=== PATIENT | female | born 1940 | race Caucasian/White ===

== ENCOUNTER → 2017-02-23 | Outpatient (CLI) | payer MEDICARE ==
[~2017-02-23] MED LIST: ALBU8.5H2 IH; ALPR0.2550 PO; ALPR0.5T72; AMIT25TA9 PO; AMIT75TA2; AMOX500C2 PO; ATEN50TA PO; FURO40TA4 PO; GABA300C PO; GBPN300C PO; HYDR-34 PO; LORA10TA2 PO; LORA10TA7 PO; MELO-195 PO; OMEP20CA6; PNT40TEC PO; POTA20PA3 PO; POTA20TA15 PO; PRD10T PO; ROPI0.25 PO; SIMV20TA3 PO; SIMV40TA4 PO; SLMFT1E INH; SLMFT1E PO; VERA240C2 PO
--- NOTE | 2017-02-23 13:07 | Diagnostic Imaging Report ---
INDICATION: SOA COMPARISON: 04/06/2011. FINDINGS: Frontal and lateral views of the chest demonstrate stable heart size and pulmonary vascularity. Right-sided dual-lead pacemaker is noted. There is aortic atherosclerosis. The lungs are clear. There are no signs of infiltrate, pleural effusions or pneumothoraces. The visualized osseous structures show no acute abnormalities. IMPRESSION: 1. No acute process. No signs of infiltrates, effusions or pneumothoraces. Dictated by: Dictated on workstation # [id number]
[2017-02-23 13:19] LABS: ALANINE AMINOTRANSFERASE 17 U/L (0-55); ALBUMIN 4.1 G/DL (3.2-4.5); ANION GAP 8 MMOL/L (5-14); ASPARTATE AMINO TRANSFERASE 20 U/L (5-34); BILIRUBIN,TOTAL 1.2 MG/DL (0.1-1.0); BLOOD UREA NITROGEN 25 MG/DL (7-18); BUN/CREATININE RATIO 29; CALCIUM 10.1 MG/DL (8.5-10.1); CARBON DIOXIDE 26 MMOL/L (21-32); CHLORIDE 107 MMOL/L (98-107); CREATININE SERUM 0.87 MG/DL (0.60-1.30); GFR ESTIMATED > 60; GLUCOSE 88 MG/DL (70-105); POTASSIUM 3.9 MMOL/L (3.6-5.0); SODIUM 141 MMOL/L (135-145); TOTAL PROTEIN 6.8 G/DL (6.4-8.2)
== END ==
LOC: RAD 12:31
PROVIDERS: ATTEND Internal Medicine Cardiovascular Disease
DX: R06.02 Shortness of breath (principal)
CPT/HCPCS: 36415; 71020; 80053; 83880

== ENCOUNTER 2017-05-09 20:37 | Outpatient (CLI) | payer MEDICARE | END 2017-05-10 06:48 | disposition home or self-care (01) | LOC: SLEEP 20:37 | PROVIDERS: ATTEND Nurse Practitioner Family | DX: G47.10 Hypersomnia, unspecified (principal); G47.34 Idiopathic sleep related nonobstructive alveolar hypoventilation; G47.50 Parasomnia, unspecified | CPT/HCPCS: 95810 ==

== ENCOUNTER 2017-06-19 21:10 | Outpatient (CLI) | payer MEDICARE | END 2017-06-20 06:50 | disposition home or self-care (01) | LOC: SLEEP 21:10 | PROVIDERS: ATTEND Nurse Practitioner Family | DX: G47.33 Obstructive sleep apnea (adult) (pediatric) (principal) | CPT/HCPCS: 95811 ==

== ENCOUNTER 2017-11-26 05:44 | Outpatient (CLI) | payer MEDICARE ==
[~2017-11-26] VITALS: Ht 162.6 cm; Wt 77.4 kg
[2017-11-26] MEDS ORDERED: MELO7.5T46 PO (08:43)
[2017-11-26] MEDS ORDERED: FLUT1BLS IH (08:43)
[2017-11-26] MEDS ORDERED: OMG1KC PO (08:43)
[2017-11-26] MEDS ORDERED: VERA240T98 PO (08:43)
[2017-11-26] MEDS ORDERED: CHOL10003 PO (08:43)
[2017-11-26] MEDS ORDERED: SIMV10TA3 PO (08:43)
[2017-11-26] MEDS ORDERED: GABA-488 PO (08:43)
[2017-11-26] MEDS ORDERED: TRAM50TA2 PO (08:43)
[2017-11-26] MEDS ORDERED: FURO40TA4 PO (08:43)
[2017-11-26] MEDS ORDERED: ROPI1TAB2 PO (08:43)
[2017-11-26] MEDS ORDERED: AMIT25TA9 PO (08:43)
[2017-11-26] MEDS ORDERED: ATEN50TA PO (08:43)
[2017-11-26] MEDS ORDERED: POTA20TA15 PO (08:44)
[2017-11-26] MEDS ORDERED: WARF3TAB7 PO (08:45)
[2017-11-26] MEDS ORDERED: MONT10TA24 PO (08:45)
== END 2017-11-26 08:54 ==
LOC: PREOP 05:44
PROVIDERS: ATTEND Surgery
DX: Z01.818 Encounter for other preprocedural examination (principal); K62.5 Hemorrhage of anus and rectum

== ENCOUNTER 2017-12-03 08:38 | Day surgery (SDC) | payer MEDICARE ==
[~2017-12-03] VITALS: Ht 162.6 cm; Wt 77.4 kg
[~2017-12-03 08:38] MED LIST changes: +CHOL10003 PO; +FLUT1BLS IH; +GABA-488 PO; +MELO7.5T46 PO; +MONT10TA24 PO; +OMG1KC PO; +ROPI1TAB2 PO; +SIMV10TA3 PO; +TRAM50TA2 PO; +VERA240T98 PO; +WARF3TAB7 PO
[2017-12-03] MEDS ORDERED: NS IV 500 ML 500 ML ONE (08:39)
[2017-12-03] MEDS ORDERED: NS IV 500 ML 500 ML IV PRN (08:50)
[2017-12-03 09:04] VITALS: BP 157/96
--- NOTE | 2017-12-03 09:38 | History & Physicial ---
History of Present Illness History of Present Illness Reason for visit/HPI to undergo colonoscopy regarding rectal bleeding. Date of Admission 12/03/17 Date Seen by Provider: Dec 03, 2017 Time Seen by Provider: 09:36 I consulted on this patient on 12/03/17 09:36 Attending Physician Logan Pulliam MD Admitting Physician Jason Boudreaux MD Consult Allergies and Home Medications Allergies Coded Allergies: doxycycline (Unverified Allergy, Mild, 11/26/17) Home Medications Amitriptyline HCl 25 Mg Tablet, 25 MG PO HS, (Reported) Atenolol 50 Mg Tablet, 50 MG PO BID, (Reported) Cholecalciferol (Vitamin D3) 1,000 Unit Tablet, 1,000 UNIT PO DAILY, (Reported) Fluticasone/Vilanterol 1 Each Blst.w.dev, 1 EACH IH DAILY, (Reported) Furosemide 40 Mg Tablet, 60 MG PO DAILY, (Reported) Gabapentin Unknown Strength Capsule, Unknown Dose PO TID, (Reported) Meloxicam 7.5 Mg Tablet, 7.5 MG PO DAILY, (Reported) Montelukast Sodium 10 Mg Tablet, 10 MG PO DAILY, (Reported) [place] 3 Polyunsat Fatty Acids 1,000 Mg Cap, 1,000 MG PO TID, (Reported) Potassium Chloride 20 Meq Tab.er.prt, 20 MEQ PO DAILY, (Reported) Ropinirole HCl 1 Mg Tablet, 1 MG PO HS, (Reported) Simvastatin 10 Mg Tablet, 10 MG PO DAILY, (Reported) Tramadol HCl 50 Mg Tablet, 50 MG PO BID PRN for PAIN-MILD TO MODERATE, (Reported ) Verapamil HCl 240 Mg Tablet.er, 240 MG PO DAILY, (Reported) Warfarin Sodium 3 Mg Tablet, 3 MG PO DAILY, (Reported) Patient Home Medication List Home Medication List Reviewed: Yes Past Xwlztoe-Kcfbrr-Jpkdor Hx Patient Social History Marrital Status: Employed/Student: retired Alcohol Use: Denies Use Recreational Drug Use: No Smoking Status: Never a Smoker Recent Foreign Travel: No Contact w/other who traveled: No Recent Hopitalizations: No Recent Infectious Disease Expo: No Immunizations Up To Date Date of Pneumonia Vaccine: Oct 30, 2016 Date of Influenza Vaccine: Jul 09, 2017 Seasonal Allergies Seasonal Allergies: Yes Surgeries Section, Tonsillectomy Respiratory No Currently Using CPAP: No Cardiovascular Yes Atrial Fibrillation, High Cholesterol, Hypertension Neurological No Reproductive System Hx Reproductive Disorders: No Sexually Transmitted Disease: No HIV/AIDS: No Genitourinary No Gastrointestinal Yes Chronic Constipation Musculoskeletal Yes Arthritis, Chronic Back Pain Endocrine History of Endocrine Disorders: No HEENT History of HEENT Disorders: No Loss of Vision: Bilateral Hearing Impairment: Denies Psychosocial History of Psychiatric Problem: Yes Behavioral Health Disorders: Anxiety Blood Transfusions Adverse Reaction to a Blood Tr: No (N/A) Constitutional: no symptoms reported EENTM: ear discharge Respiratory: no symptoms reported Cardiovascular: no symptoms reported Gastrointestinal: constipation Genitourinary: no symptoms reported Musculoskeletal: joint pain Skin: no symptoms reported Physical Exam Vital Signs Vital Signs - First Documented 12/03/17 09:04 Temp 96.5 Pulse 71 Resp 16 B/P (MAP) 157/96 (116) Pulse Ox 96 O2 Delivery Room Air Capillary Refill : General Appearance: No Apparent Distress Neck: Normal Inspection Respiratory: Lungs Clear Cardiovascular: Regular Rate, Rhythm Gastrointestinal: Non Tender, Soft Rectal: Deferred Extremity: Normal Inspection Neurologic/Psychiatric: Oriented x3 Skin: Warm/Dry Assessment/Plan Assessment and Plan lady reporting rectal bleeding. For colonoscopy Problems: Admission Diagnosis Admission Status: Other (Outpt Proc) LOGAN PULLIAM MD Dec 03, 2017 9:38 am
--- NOTE | 2017-12-03 09:38 | Conscious Sedation/ASA ---
Conscious Sedation Pre-Proced Time Reviewed: 09:38 ASA Class: 3 Airway Mallampati Classification: (galena appropriate class) I. II. III, IV Lungs Heart ASA score ASA 1: a normal healthy patient ASA 2: a patient with a mild systemic disease (mid diabetes, controlled hypertension, obesity ASA 3: a patient with a severe systemic disease that limits activity (angina , COPD, prior Myocardial infarction) ASA 4: a patient with an incapacitating disease that is a constant threat to life (CHF, renal failure) ASA 5: a moribund patient not expected to survive 24 hrs. (ruptured aneurysm) ASA 6: a declared brain patient whose organs are being harvested. For emergent operations, add the letter E after the classification Grade 1 Sedation Plan: Discussed options with patient/fam Note The patient is an appropriate candidate to undergo the planned procedure, sedation, and anesthesia. The patient immediately re-assessed prior to indication. LOGAN CHACON MD Dec 03, 2017 9:38 am
[2017-12-03] MEDS ORDERED: MIDAZOLAM 2 MG/2 ML (VERSED) VIAL ONE ×2 (09:56→09:57)
[2017-12-03] MEDS ORDERED: fentaNYL INJECTION 100 MCG/2 ML AMP ONE (09:57)
[2017-12-03] MEDS: fentaNYL INJECTION 100 MCG/2 ML AMP IVP PRN ×2 (10:05→10:20)
[2017-12-03] MEDS: MIDAZOLAM 2 MG/2 ML (VERSED) VIAL IVP PRN ×2 (10:07→10:14)
[2017-12-03 10:35] VITALS: BP 146/58
--- NOTE | 2017-12-03 10:37 | Endo Procedure Record ---
Endo Procedure Report Date of Procedure Last Colonoscopy: No Dec 03, 2017 Surgeon (s) LOGAN CHACON MD Post Procedure/Op Diagnosis Large external hemorrhoids Sigmoid diverticulosis Procedure Performed Colonoscopy to cecum Description of Procedure Anesthesia Type: Conscious Sedation Specimen(s) collected/removed none Description of the Procedure Indication for the procedure: This lady came in for colonoscopy to evaluate intermittent rectal bleeding. Informed consent was obtained after reviewing the procedure in detail. Description of the procedure: She was placed in left lateral decubitus position and her vital signs were monitored. Conscious sedation was achieved using Versed and fentanyl. Examination of the perianal area revealed external hemorrhoids. Digital examination was unremarkable. The colonoscope was then introduced in the rectum and advanced all the way to the cecum The scope was then withdrawn slowly and the mucosa examined in a systematic fashion. Findings: 1. External hemorrhoids, the potential source of her bleeding 2. Sigmoid diverticulosis. She tolerated the procedure well and was taken back to the nursing area in a stable condition. Impression: Rectal bleeding due to hemorrhoids. Would treat conservatively. Copies To: JUSTIN JOHNSON MD, XAVIER M MD Dec 03, 2017 10:37 am
--- NOTE | 2017-12-03 10:39 | Discharge Inst-Simple/Standard ---
Discharge Inst-Standard Discharge Medications New, Converted or Re-Newed RX: Other Patient Instructions/Follow Up Plan of Care/Instructions/FU: Follow-up with her primary. To avoid constipation. Activity as Tolerated: Yes Discharge Diet: No Restrictions LOGAN CHACON MD Dec 03, 2017 10:39 am
[2017-12-03 11:00] VITALS: BP 133/87
== END 2017-12-03 11:15 | disposition home or self-care (01) ==
LOC: ENDO 08:38
PROVIDERS: ATTEND Surgery
DX: K64.4 Residual hemorrhoidal skin tags (principal); K57.30 Diverticulosis of large intestine without perforation or abscess without bleeding; K62.5 Hemorrhage of anus and rectum; Z88.1 Allergy status to other antibiotic agents; Z79.01 Long term (current) use of anticoagulants; Z79.899 Other long term (current) drug therapy; I48.91 Unspecified atrial fibrillation; E78.00 Pure hypercholesterolemia, unspecified; I10 Essential (primary) hypertension; K59.09 Other constipation; F41.9 Anxiety disorder, unspecified

== ENCOUNTER 2019-10-22 12:44 | Outpatient (RCR) | payer MEDICARE ==
[~2019-10-22 12:44] MED LIST changes: -MONT10TA24 PO; +MONT10TA26 PO; +ROPI1TAB PO; -ROPI1TAB2 PO; +SIMV10TA26 PO; -SIMV10TA3 PO; -TRAM50TA2 PO; +TRM50T PO; +VERA240T14 PO; -VERA240T98 PO
[2019-11-04 14:30] VITALS: BP 101/60
[2019-11-04 15:20] VITALS: BP 120/60
[2019-11-06 14:35] VITALS: BP 150/60
[2019-11-06 15:30] VITALS: BP 123/80
[2019-11-11 14:30] VITALS: BP 138/60
[2019-11-11 15:29] VITALS: BP 120/60
[2019-11-13 14:30] VITALS: BP 130/60
[2019-11-13 15:30] VITALS: BP 117/60
[2019-11-18 14:20] VITALS: BP 120/80
[2019-11-18 15:35] VITALS: BP 118/63
== END 2020-01-20 | disposition home or self-care (01) ==
LOC: PULM 12:44
PROVIDERS: ATTEND Nurse Practitioner
DX: J44.9 Chronic obstructive pulmonary disease, unspecified (principal)
CPT/HCPCS: 99211

== ENCOUNTER 2020-05-18 17:39 | Emergency (ER) | payer MEDICARE ==
[~2020-05-18] VITALS: Ht 160 cm; Wt 86.3 kg
--- NOTE | 2020-05-18 19:03 | ED Lower Extremity ---
General Chief Complaint: Lower Extremity Stated Complaint: L FOOT PAIN Source: patient Exam Limitations: no limitations (CORKY MORALES STUDENT) History of Present Illness Date Seen by Provider: May 18, 2020 Time Seen by Provider: 18:45 Initial Comments Citlaly Salazar is a 80 year old female seen today due to swelling and pain on the dorsal aspect of her R foot. She reports the swelling and pain began three days ago, and has made it difficult to walk. She describes the pain as 5/10, and it does not radiate, and she has treated the pain with tramadol. Denies any injury to the foot, attributes her symptoms to needing her nails cut. She normally ambulates using a walker but has reduced how much she ambulates. Denies any loss of sensation or mobility of her toes, denies fevers, SOB, cough CP, palpitations. nausea and vomiting. Onset: last week Pain/Injury Location: left foot Method of Injury: unknown Modifying Factors: Improves With Pain Medication (tramadol) (CORKY MORALES STUDENT) Allergies and Home Medications Allergies Coded Allergies: doxycycline (Unverified Allergy, Mild, 11/26/17) Home Medications Amitriptyline HCl 25 Mg Tablet, 25 MG PO HS, (Reported) Atenolol 50 Mg Tablet, 50 MG PO BID, (Reported) Cephalexin 500 Mg Tablet, 500 MG PO QID Prescribed by: PEPITO JOHN on 05/18/201915 Cholecalciferol (Vitamin D3) 1,000 Unit Tablet, 1,000 UNIT PO DAILY, (Reported) Fluticasone/Vilanterol 1 Each Blst.w.dev, 1 EACH IH DAILY, (Reported) Furosemide 40 Mg Tablet, 60 MG PO DAILY, (Reported) Gabapentin Unknown Strength Capsule, Unknown Dose PO TID, (Reported) Meloxicam 7.5 Mg Tablet, 7.5 MG PO DAILY, (Reported) Montelukast Sodium 10 Mg Tablet, 10 MG PO DAILY, (Reported) [place] 3 Polyunsat Fatty Acids 1,000 Mg Cap, 1,000 MG PO TID, (Reported) Potassium Chloride 20 Meq Tab.er.prt, 20 MEQ PO DAILY, (Reported) Ropinirole HCl 1 Mg Tablet, 1 MG PO HS, (Reported) Simvastatin 10 Mg Tablet, 10 MG PO DAILY, (Reported) Tramadol HCl 50 Mg Tablet, 50 MG PO BID PRN for PAIN-MILD TO MODERATE, (Reported ) Tramadol HCl 50 Mg Tablet, 50 MG PO Q6H PRN for PAIN Prescribed by: PEPITO JOHN on 05/18/201915 Verapamil HCl 240 Mg Tablet.er, 240 MG PO DAILY, (Reported) Warfarin Sodium 3 Mg Tablet, 3 MG PO DAILY, (Reported) Patient Home Medication List Home Medication List Reviewed: Yes (PEPITO JOHN) Review of Systems Constitutional: No chills, No fever EENTM: No nose congestion, No throat pain Respiratory: No cough, No short of breath Cardiovascular: No chest pain, No palpitations Gastrointestinal: No nausea, No vomiting Skin: other (painful and erythematous dorsal R foot) (CORKY MORALES) Musculoskeletal: see HPI; No back pain; joint pain (PEPITO JOHN) All Other Systems Reviewed Negative Unless Noted: Yes (PEPITO JOHN) Past Cqwjatc-Zssayh-Bzmait Hx Patient Social History Recent Foreign Travel: No Contact w/Someone Who Travel: No Recent Hopitalizations: No (CORKY MORALES) Alcohol Use: Denies Use Recreational Drug Use: No (PEPITO JOHN) Immunizations Up To Date Date of Pneumonia Vaccine: Oct 30, 2016 Date of Influenza Vaccine: Jul 09, 2017 (CORKY MORALES) Seasonal Allergies Seasonal Allergies: Yes (CORKY MORALES) Past Medical History Section, Tonsillectomy Respiratory: No Sleep Apnea, COPD Currently Using CPAP: No Cardiac: Yes Atrial Fibrillation, High Cholesterol, Hypertension Neurological: No Reproductive Disorders: No Sexually Transmitted Disease: No HIV/AIDS: No Genitourinary: No Gastrointestinal: Yes Chronic Constipation Musculoskeletal: Yes Arthritis, Chronic Back Pain Endocrine: No HEENT: No Loss of Vision: Bilateral Hearing Impairment: Denies Psychosocial: Yes Anxiety Adverse Reaction/Blood Tranf: No (N/A) (CORKY MORALES) Physical Exam Vital Signs Vital Signs - First Documented 05/18/20 18:42 Temp 36.6 Pulse 79 Resp 18 B/P (MAP) 129/80 (96) Pulse Ox 95 O2 Delivery Room Air (PEPITO JOHN) Vital Signs Capillary Refill : (CORKY MORALES) Height, Weight, BMI Height: 5'4.00" Weight: 182lbs. 0.6oz. 77.357427mv; 29.3 BMI Method:Stated General Appearance: WD/WN, no apparent distress Cardiovascular: regular rate, rhythm, no JVD, diastolic murmur Respiratory: chest non-tender, lungs clear, normal breath sounds, no r espiratory distress, no accessory muscle use Knees: bilateral knee non-tender Ankles: bilateral ankle non-tender, bilateral ankle normal inspection Feet: left foot limited range of motion (reports her toe dorsiflexion may be reduced), left foot pain, left foot soft tissue tenderness, left foot swelling Neurologic/Psychiatric: alert, normal mood/affect, oriented x 3 (CORKY MORALES MED STUDENT) Feet: left foot other (shallow superficial ulceration in into the dermis on the distal tip of the first toe distal phalanx without exudate.) Neurologic/Tendon: normal sensation, normal motor functions, normal tendon functions, responds to pain (PEPITO JOHN) Progress/Results/Core Measures Results/Orders Vital Signs/I&O 05/18/20 18:42 Temp 36.6 Pulse 79 Resp 18 B/P (MAP) 129/80 (96) Pulse Ox 95 O2 Delivery Room Air (PEPITO JOHN) Progress Progress Note : Time: 19:11 Progress Note plan to start her on cephalexin 4 times a day and have her follow-up with Dr. Carmelo davis as primary care. She is not immunocompromised and has normal vital signs. I attest that I saw this patient alongside the medical student and agree with his documented history, physical exam and review of systems except as otherwise noted. (PEPITO JOHN) Departure Impression Primary Impression: Cellulitis of foot, left Disposition: 01 HOME, SELF-CARE Condition: Stable Departure-Patient Inst. Decision time for Depature: 19:09 (PEPITO JOHN) Referrals: ALLISON TORRES MD, CHAD C MD (PCP/Family) Primary Care Physician Patient Instructions: Cellulitis (Skin Infection), Adult (DC) Add. Discharge Instructions: keep the skin clean with regular soap and water and thoroughly dried. Dress the wound on the end of your toe. Tomorrow call Dr. Torres at wound care clinic and request follow-up appointment this week. Start taking Keflex one capsule 4 times a dayf or the next week and then follow up either with your primary care doctor or the wound care doctor for reevaluation this week. All discharge instructions reviewed with patient and/or family. Voiced understanding. Scripts Cephalexin (Cephalexin) 500 Mg Tablet 500 MG PO QID for 7 Days, #28 TAB 0 Refills Prov: PEPITO JOHN 05/18/20 Tramadol HCl (Tramadol HCl) 50 Mg Tablet 50 MG PO Q6H PRN for PAIN for 3 Days, #10 TAB 0 Refills Prov: PEPITO JOHN 05/18/20 Copy Copies To 1: ALLISON TORRES MD, EVAN MED STUDENT May 18, 2020 19:03 PEPITO JHON May 18, 2020 19:16
[2020-05-18] MEDS ORDERED: CEPH500T PO (19:16)
[2020-05-18] MEDS ORDERED: TRM50T PO (19:16)
[2020-05-18 19:19] VITALS: BP 128/79
== END 2020-05-18 19:23 | disposition home or self-care (01) ==
LOC: EDUNIT# 17:39 → ER 17:40
DX: L03.116 Cellulitis of left lower limb (principal); E78.00 Pure hypercholesterolemia, unspecified; I10 Essential (primary) hypertension; F41.9 Anxiety disorder, unspecified; Z88.1 Allergy status to other antibiotic agents; Z79.01 Long term (current) use of anticoagulants
CPT/HCPCS: 99283

== ENCOUNTER → 2020-06-03 | Outpatient (CLI) | payer MEDICARE ==
[~2020-06-03] MED LIST changes: +CEPH500T PO
== END ==
LOC: WOUNDCARE 12:28
PROVIDERS: ATTEND Surgery
DX: L97.522 Non-pressure chronic ulcer of other part of left foot with fat layer exposed (principal); G60.8 Other hereditary and idiopathic neuropathies; I70.245 Atherosclerosis of native arteries of left leg with ulceration of other part of foot; L03.116 Cellulitis of left lower limb
CPT/HCPCS: 99212

== ENCOUNTER → 2020-06-16 | Outpatient (CLI) | payer MEDICARE | LOC: WOUNDCARE 13:59 | PROVIDERS: ATTEND Surgery | DX: G60.8 Other hereditary and idiopathic neuropathies (principal); I70.245 Atherosclerosis of native arteries of left leg with ulceration of other part of foot; L03.116 Cellulitis of left lower limb | CPT/HCPCS: 99212 ==

== ENCOUNTER 2020-07-12 12:45 | Emergency (ER) | payer MEDICARE ==
[~2020-07-12] VITALS: Ht 167 cm; Wt 77.0 kg
--- NOTE | 2020-07-12 12:57 | ED General ---
General Stated Complaint: FALL Source of Information: Patient Exam Limitations: No Limitations History of Present Illness Date Seen by Provider: Jul 12, 2020 Time Seen by Provider: 12:55 Initial Comments To ER by EMS from home after reports of a fall. She was going to close the door when she tripped over a rug causing her to fall. She subsequently has developed thoracic and lumbar spine pain. She did hit her head but no loss of consciousness. She's on warfarin for history of "heart problems". Timing/Duration: 1-2 Days Severity: Moderate Associated Systoms: Denies Symptoms Allergies and Home Medications Allergies Coded Allergies: doxycycline (Unverified Allergy, Mild, 11/26/17) Home Medications Amitriptyline HCl 25 Mg Tablet, 25 MG PO HS, (Reported) Atenolol 50 Mg Tablet, 50 MG PO BID, (Reported) Cephalexin 500 Mg Tablet, 500 MG PO QID Prescribed by: PEPITO JOHN on 05/18/201915 Cholecalciferol (Vitamin D3) 1,000 Unit Tablet, 1,000 UNIT PO DAILY, (Reported) Fluticasone/Vilanterol 1 Each Blst.w.dev, 1 EACH IH DAILY, (Reported) Furosemide 40 Mg Tablet, 60 MG PO DAILY, (Reported) Gabapentin Unknown Strength Capsule, Unknown Dose PO TID, (Reported) Meloxicam 7.5 Mg Tablet, 7.5 MG PO DAILY, (Reported) Montelukast Sodium 10 Mg Tablet, 10 MG PO DAILY, (Reported) [place] 3 Polyunsat Fatty Acids 1,000 Mg Cap, 1,000 MG PO TID, (Reported) Potassium Chloride 20 Meq Tab.er.prt, 20 MEQ PO DAILY, (Reported) Ropinirole HCl 1 Mg Tablet, 1 MG PO HS, (Reported) Simvastatin 10 Mg Tablet, 10 MG PO DAILY, (Reported) Tramadol HCl 50 Mg Tablet, 50 MG PO BID PRN for PAIN-MILD TO MODERATE, (Reported) Tramadol HCl 50 Mg Tablet, 50 MG PO Q6H PRN for PAIN Prescribed by: PEPITO JOHN on 05/18/201915 Verapamil HCl 240 Mg Tablet.er, 240 MG PO DAILY, (Reported) Warfarin Sodium 3 Mg Tablet, 3 MG PO DAILY, (Reported) Patient Home Medication List Home Medication List Reviewed: Yes Review of Systems Review of Systems Constitutional: see HPI EENTM: see HPI Respiratory: no symptoms reported Cardiovascular: no symptoms reported Genitourinary: no symptoms reported Musculoskeletal: see HPI, back pain Skin: no symptoms reported Psychiatric/Neurological: No Symptoms Reported Past Mrnbfay-Okfggk-Fitlfb Hx Patient Social History Recent Hopitalizations: No Immunizations Up To Date Date of Pneumonia Vaccine: Oct 30, 2016 Date of Influenza Vaccine: Jul 09, 2017 Seasonal Allergies Seasonal Allergies: Yes Past Medical History Surgeries: Yes Section, Tonsillectomy Respiratory: No Sleep Apnea, COPD Currently Using CPAP: No Cardiac: Yes Atrial Fibrillation, High Cholesterol, Hypertension Neurological: No Reproductive Disorders: No Sexually Transmitted Disease: No HIV/AIDS: No Genitourinary: No Gastrointestinal: Yes Chronic Constipation Musculoskeletal: Yes Arthritis, Chronic Back Pain Endocrine: No HEENT: No Loss of Vision: Bilateral Hearing Impairment: Denies Psychosocial: Yes Anxiety Integumentary: No Blood Disorders: No Adverse Reaction/Blood Tranf: No (N/A) Physical Exam Vital Signs Vital Signs - First Documented 07/12/20 12:45 Temp 36.6 Pulse 91 Resp 20 B/P (MAP) 171/95 (120) Pulse Ox 96 Capillary Refill : Height, Weight, BMI Height: 5'4.00" Weight: 182lbs. 0.6oz. 77.312637xx; 33.00 BMI Method:Stated General Appearance: No Apparent Distress, WD/WN Eyes: Bilateral Eye Normal Inspection, Bilateral Eye PERRL, Bilateral Eye EOMI HEENT: PERRL/EOMI, TMs Normal Neck: Full Range of Motion, Normal Inspection, Non Tender, Supple Respiratory: No Accessory Muscle Use, No Respiratory Distress Back: Normal Inspection, Vertebral Tenderness (thoracolumbar spine) Extremity: Normal Capillary Refill, Normal Inspection Neurologic/Psychiatric: Alert, Oriented x3 Skin: Normal Color, Warm/Dry Progress/Results/Core Measures Suspected Sepsis SIRS Temperature: Pulse: Respiratory Rate: Blood Pressure / Mean: Results/Orders My Orders Orders - JUAN MAURER APRN Ct Head/Cervical Spine Wo (07/12/20 12:53) Ct Thoracic/Lumbar Spine Wo (07/12/20 12:53) Ibuprofen Tablet (Motrin Tablet) (07/12/20 13:00) Acetaminophen Tablet/Caplet (Tylenol T (07/12/20 13:00) Medications Given in ED Current Medications Medications Dose Ordered Sig/Jimi Route Start Time Stop Time Status Last Admin Dose Admin Acetaminophen 650 mg ONCE ONCE PO 07/12/20 13:00 07/12/20 13:01 DC 07/12/20 13:29 650 MG Ibuprofen 400 mg ONCE ONCE PO 07/12/20 13:00 07/12/20 13:01 DC 07/12/20 13:29 400 MG Vital Signs/I&O 07/12/20 12:45 Temp 36.6 Pulse 91 Resp 20 B/P (MAP) 171/95 (120) Pulse Ox 96 Capillary Refill : Diagnostic Imaging Diagonstic Imaging: Xray Comments NAME: LUCITA ORLANDO [facility] REC#: [id number] PT STATUS: REG ER : 1940 PHYSICIAN: JUAN MAURER APRN ADMIT DATE: 07/12/20/ER Draft Date of Exam:07/12/20 CT HEAD/CERVICAL SPINE WO PROCEDURE: CT head and CT cervical spine without contrast. TECHNIQUE: Multiple contiguous axial images were obtained through the brain and cervical spine without the use of intravenous contrast. Sagittal and coronal reformations through the cervical spine were then performed. Auto Exposure Controls were utilized during the CT exam to meet ALARA standards for radiation dose reduction. INDICATION: Fall. Head injury. COMPARISON: None. FINDINGS: CT HEAD: Moderate generalized cerebral and cerebellar parenchymal volume loss. Moderate leukoaraiosis. No intracranial hemorrhage, mass effect, hydrocephalus or extra-axial fluid collections. No CT evidence of a territorial infarction. Osseous structures are intact. Advanced mucosal thickening in the paranasal sinuses with osteitis. The mastoids are clear. CT CERVICAL SPINE: Grade 1 retrolisthesis of C3 on C4. Vertebral body heights preserved. No fractures. Congenital nonunion of the posterior arch of C1. Diffuse moderate to advanced degenerative endplate changes are greatest at C3-C4 and C6-C7. Advanced atherosclerotic calcifications. Lung apices are clear. There is likely moderate to severe spinal canal stenosis at C3-C4 due to osteophytic ridging and the retrolisthesis. Diffuse high-grade neural foraminal narrowing. IMPRESSION: 1. No acute intracranial or cervical spine CT findings. 2. Moderate to advanced spondylotic changes in the cervical spine are greatest at C3-C4 and C6-C7. There is likely high-grade spinal canal stenosis at C3-C4. This could be better evaluated with MRI. 3. Advanced chronic sinusitis. Dictated on workstation # [id number] Dict: 07/12/20 1400 Trans: 07/12/20 1409 [facility], [place] [id number] Interpreted by: GERMÁN HOWE MD Electronically signed by: NAME: LUCITA ORLANDO [facility] REC#: [id number] PT STATUS: REG ER : 1940 PHYSICIAN: JUAN MAURER APRN ADMIT DATE: 07/12/20/ER Draft Date of Exam:07/12/20 CT THORACIC/LUMBAR SPINE WO PROCEDURE: CT thoracic and lumbar spine without contrast. TECHNIQUE: Multiple contiguous axial images were obtained through the thoracic and lumbar spine without the use of intravenous contrast. Sagittal and coronal reformations were then performed. All CT scans use one or more of the following dose optimizing techniques: automated exposure control, MA and/or KvP adjustment based on a patient size and exam type, or iterative reconstruction. INDICATION: Fall. Mid upper back pain. COMPARISON: None. FINDINGS: Normal alignment. Vertebral body heights are preserved. No fractures are identified. Advanced diffuse degenerative endplate changes. Disc osteophyte complexes at T12 through L4 result in at least moderate spinal canal stenosis. There is also high-grade bilateral neural foraminal narrowing at L5-S1 and on the left at L2-L4. There is small right pleural effusion. Moderate atherosclerotic calcifications. Partially visualized cardiomegaly. Cardiac pacer. Colonic diverticulosis. Moderate degenerative changes in the sacroiliac joints. The visualized pelvis is intact. IMPRESSION: 1. No acute CT findings in the thoracic or lumbar spine. 2. Advanced spondylotic changes likely result in at least moderate spinal canal narrowing at T12 through L4. This could be better evaluated with MRI. 3. Small right pleural effusion is partially visualized. Dictated on workstation # [id number] Dict: 07/12/20 1405 Trans: 07/12/20 1413 [facility] [id number] Interpreted by: GERMÁN HOWE MD Electronically signed by: Departure Impression Primary Impression: Fall at home Qualified Codes: W19.XXXA - Unspecified fall, initial encounter; Y92.009 - Unspecified place in unspecified non-institutional (private) residence as the place of occurrence of the external cause Additional Impression: Back pain Qualified Codes: M54.5 - Low back pain Disposition: 01 HOME, SELF-CARE Condition: Stable Departure-Patient Inst. Decision time for Depature: 14:18 Referrals: JASON JOHNSON MD (PCP/Family) Primary Care Physician Patient Instructions: Upper Back Pain (DC) Add. Discharge Instructions: 1. Return to ER for any concerns, Tylenol and ibuprofen for pain control. Follow up with Dr. Jason Johnson later this week. Copy Copies To 1: JASON JOHNSON MD, PETER J APRN Jul 12, 2020 12:57
[2020-07-12] MEDS ORDERED: ACETAMINOPHEN 325 MG TABLET PO ONE (13:00)
[2020-07-12] MEDS ORDERED: IBUPROFEN TABLET 200 MG TAB PO ONE (13:00)
--- NOTE | 2020-07-12 14:09 | Diagnostic Imaging Report ---
PROCEDURE: CT head and CT cervical spine without contrast. TECHNIQUE: Multiple contiguous axial images were obtained through the brain and cervical spine without the use of intravenous contrast. Sagittal and coronal reformations through the cervical spine were then performed. Auto Exposure Controls were utilized during the CT exam to meet ALARA standards for radiation dose reduction. INDICATION: Fall. Head injury. COMPARISON: None. FINDINGS: CT HEAD: Moderate generalized cerebral and cerebellar parenchymal volume loss. Moderate leukoaraiosis. No intracranial hemorrhage, mass effect, hydrocephalus or extra-axial fluid collections. No CT evidence of a territorial infarction. Osseous structures are intact. Advanced mucosal thickening in the paranasal sinuses with osteitis. The mastoids are clear. CT CERVICAL SPINE: Grade 1 retrolisthesis of C3 on C4. Vertebral body heights preserved. No fractures. Congenital nonunion of the posterior arch of C1. Diffuse moderate to advanced degenerative endplate changes are greatest at C3-C4 and C6-C7. Advanced atherosclerotic calcifications. Lung apices are clear. There is likely moderate to severe spinal canal stenosis at C3-C4 due to osteophytic ridging and the retrolisthesis. Diffuse high-grade neural foraminal narrowing. IMPRESSION: 1. No acute intracranial or cervical spine CT findings. 2. Moderate to advanced spondylotic changes in the cervical spine are greatest at C3-C4 and C6-C7. There is likely high-grade spinal canal stenosis at C3-C4. This could be better evaluated with MRI. 3. Advanced chronic sinusitis. Dictated by: Dictated on workstation # [id number]
--- NOTE | 2020-07-12 14:13 | Diagnostic Imaging Report ---
PROCEDURE: CT thoracic and lumbar spine without contrast. TECHNIQUE: Multiple contiguous axial images were obtained through the thoracic and lumbar spine without the use of intravenous contrast. Sagittal and coronal reformations were then performed. All CT scans use one or more of the following dose optimizing techniques: automated exposure control, MA and/or KvP adjustment based on a patient size and exam type, or iterative reconstruction. INDICATION: Fall. Mid upper back pain. COMPARISON: None. FINDINGS: Normal alignment. Vertebral body heights are preserved. No fractures are identified. Advanced diffuse degenerative endplate changes. Disc osteophyte complexes at T12 through L4 result in at least moderate spinal canal stenosis. There is also high-grade bilateral neural foraminal narrowing at L5-S1 and on the left at L2-L4. There is small right pleural effusion. Moderate atherosclerotic calcifications. Partially visualized cardiomegaly. Cardiac pacer. Colonic diverticulosis. Moderate degenerative changes in the sacroiliac joints. The visualized pelvis is intact. IMPRESSION: 1. No acute CT findings in the thoracic or lumbar spine. 2. Advanced spondylotic changes likely result in at least moderate spinal canal narrowing at T12 through L4. This could be better evaluated with MRI. 3. Small right pleural effusion is partially visualized. Dictated by: Dictated on workstation # [id number]
[2020-07-12 14:38] VITALS: BP 171/95
== END 2020-07-12 14:39 | disposition home or self-care (01) ==
LOC: EDUNIT# 12:47 → ER 12:48
DX: M54.5 Low back pain (principal); E78.00 Pure hypercholesterolemia, unspecified; J44.9 Chronic obstructive pulmonary disease, unspecified; I10 Essential (primary) hypertension; F41.9 Anxiety disorder, unspecified; Z88.1 Allergy status to other antibiotic agents; Z79.01 Long term (current) use of anticoagulants
CPT/HCPCS: 70450; 72125; 72128; 72131

== ENCOUNTER 2020-09-26 10:36 | Inpatient (IN) | payer MEDICARE ==
[~2020-09-26] VITALS: Ht 167 cm; Wt 77.6 kg
[~2020-09-26 10:36] MED LIST changes: -MONT10TA26 PO; +MONT10TA97 PO
[2020-09-26] MEDS ORDERED: LACTATED RINGERS 1,000 ML IV ONE ×2 (11:30)
[2020-09-26 11:40] LABS: BASOPHILS % (AUTO) 1 % (0-10); EOSINOPHILS # (AUTO) 0.1 10^3/uL (0.0-0.3); EOSINOPHILS % (AUTO) 2 % (0-10); HEMATOCRIT 42 % (35-52); HEMOGLOBIN 13.8 g/dL (11.5-16.0); LYMPHOCYTES # (AUTO) 1.4 10^3/uL (1.0-4.0); LYMPHOCYTES % (AUTO) 25 % (12-44); MEAN CORPUSCULAR HEMOGLOBIN 29 pg (25-34); MEAN CORPUSCULAR HGB CONC 33 g/dL (32-36); MEAN CORPUSCULAR VOLUME 87 fL (80-99); MEAN PLATELET VOLUME 11.4 fL (9.0-12.2); MONOCYTES # (AUTO) 0.6 10^3/uL (0.0-1.0); MONOCYTES % (AUTO) 10 % (0-12); NEUTROPHILS # (AUTO) 3.6 10^3/uL (1.8-7.8); NEUTROPHILS % (AUTO) 63 % (42-75); PLATELET COUNT 394 10^3/uL (130-400); WHITE BLOOD COUNT 5.8 10^3/uL (4.3-11.0)
[2020-09-26 11:43] LABS: ALBUMIN 3.7 GM/DL (3.2-4.5); CHLORIDE 104 MMOL/L (98-107); POTASSIUM 3.1 MMOL/L (3.6-5.0); SODIUM 140 MMOL/L (135-145)
[2020-09-26 11:44] LABS: CALCIUM 9.1 MG/DL (8.5-10.1)
[2020-09-26 11:45] LABS: GLUCOSE 91 MG/DL (70-105); TOTAL PROTEIN 6.9 GM/DL (6.4-8.2)
[2020-09-26 11:46] LABS: CARBON DIOXIDE 23 MMOL/L (21-32)
[2020-09-26 11:47] LABS: BILIRUBIN,TOTAL 1.6 MG/DL (0.1-1.0)
[2020-09-26 11:49] LABS: ALKALINE PHOSPHATASE 73 U/L (40-136); CREATININE SERUM 0.79 MG/DL (0.60-1.30); GFR ESTIMATED > 60
[2020-09-26 11:50] LABS: BUN/CREATININE RATIO 14
[2020-09-26 11:52] LABS: ALANINE AMINOTRANSFERASE 26 U/L (0-55); MAGNESIUM 1.6 MG/DL (1.6-2.4)
[2020-09-26] MEDS ORDERED: KETOROLAC 30 MG/ML VIAL ONE (12:11)
[2020-09-26] MEDS ORDERED: KETOROLAC 30 MG/ML VIAL IVP ONE (12:15)
[2020-09-26 12:25] LABS: CLARITY,URINE CLEAR; COLOR,URINE YELLOW; GLUCOSE, URINE (UA) NEGATIVE (NEGATIVE); KETONES,URINE 1+ (NEGATIVE); LEUKOCYTE ESTERASE ,URINE NEGATIVE (NEGATIVE); NITRITE,URINE NEGATIVE (NEGATIVE); PH,URINE 5.5 (5-9); PROTEIN,URINE 1+ (NEGATIVE)
[2020-09-26 12:42] LABS: AMORPHOUS SEDIMENT,UR RARE AMOR URATES /LPF; BACTERIA,URINE TRACE /HPF; BILIRUBIN,URINE 2+ (NEGATIVE); RBC,URINE RARE /HPF; SQUAMOUS EPITHELIAL CELL,UR RARE /HPF; WBC,URINE RARE /HPF
--- NOTE | 2020-09-26 12:45 | ED GI ---
General Chief Complaint: General Problems/Pain Stated Complaint: DIARRHEA,NO APPETITE,WEAK,FEVER Nursing Triage Note: PT TO ED W/ C/O COUGH, CONGESTION, DIARRHEA, FEVER ONSET X1 WK. SON REPORTED SHE WAS TESTED FOR COVID "A WHILE AGO" BUT RECEIVED NO RESULTS. STATES HE DID HAVE COVID ET HAS FINISHED HIS QUARANTINE. PT DENIES ANY C/O PAIN. NO OTHER C/O VOICED Sepsis Screen: No Definite Risk Source of Information: Patient Exam Limitations: No Limitations History of Present Illness Date Seen by Provider: Sep 26, 2020 Time Seen by Provider: 11:15 Initial Comments Patient presents ER by private conveyance with her son and chief complaint that she has been sick for about a week with diarrhea. Earlier in the week she was tested for Covid and her son also has COVID-19. She never received the results of her Covid screening test. He is now out of the quarantine period. She has had a cough nonproductive as well as fever for the past week. Primary care by Justin Bernardo. She is very hard of hearing and a poor historian most of her history is per her son. She is not having any pain anywhere or nausea. On warfarin. Allergies and Home Medications Allergies Coded Allergies: doxycycline (Unverified Allergy, Mild, 11/26/17) Home Medications Amitriptyline HCl 25 Mg Tablet, 25 MG PO HS, (Reported) Atenolol 50 Mg Tablet, 50 MG PO BID, (Reported) Cephalexin 500 Mg Tablet, 500 MG PO QID Prescribed by: PEPITO JOHN on 05/18/201915 Cholecalciferol (Vitamin D3) 1,000 Unit Tablet, 1,000 UNIT PO DAILY, (Reported) Fluticasone/Vilanterol 1 Each Blst.w.dev, 1 EACH IH DAILY, (Reported) Furosemide 40 Mg Tablet, 60 MG PO DAILY, (Reported) Gabapentin Unknown Strength Capsule, Unknown Dose PO TID, (Reported) Meloxicam 7.5 Mg Tablet, 7.5 MG PO DAILY, (Reported) Montelukast Sodium 10 Mg Tablet, 10 MG PO DAILY, (Reported) [place] 3 Polyunsat Fatty Acids 1,000 Mg Cap, 1,000 MG PO TID, (Reported) Potassium Chloride 20 Meq Tab.er.prt, 20 MEQ PO DAILY, (Reported) Ropinirole HCl 1 Mg Tablet, 1 MG PO HS, (Reported) Simvastatin 10 Mg Tablet, 10 MG PO DAILY, (Reported) Tramadol HCl 50 Mg Tablet, 50 MG PO BID PRN for PAIN-MILD TO MODERATE, (Reported) Tramadol HCl 50 Mg Tablet, 50 MG PO Q6H PRN for PAIN Prescribed by: PEPITO JOHN on 05/18/201915 Verapamil HCl 240 Mg Tablet.er, 240 MG PO DAILY, (Reported) Warfarin Sodium 3 Mg Tablet, 3 MG PO DAILY, (Reported) Patient Home Medication List Home Medication List Reviewed: Yes Review of Systems Review of Systems Constitutional: No chills, No diaphoresis EENTM: No Blurred Vision, No Double Vision Respiratory: Denies Cough, Denies Shortness of Air Cardiovascular: Denies Chest Pain, Denies Lightheadedness Gastrointestinal: See HPI; Denies Abdominal Pain, Denies Constipated; Diarrhea; Denies Nausea Musculoskeletal: No back pain, No joint pain All Other Systems Reviewed Negative Unless Noted: Yes Past Qsdjoqq-Qnawau-Oqjogb Hx Patient Social History Alcohol Use: Denies Use Recreational Drug Use: No Smoking Status: Never a Smoker Recent Foreign Travel: No Contact w/Someone Who Travel: No Recent Infectious Disease Expo: No Recent Hopitalizations: No Physical Abuse: No Sexual Abuse: No Mistreated: No Fear: No Immunizations Up To Date Date of Pneumonia Vaccine: Oct 30, 2016 Date of Influenza Vaccine: Jul 09, 2017 Seasonal Allergies Seasonal Allergies: Yes Past Medical History Surgeries: Yes Section, Tonsillectomy Respiratory: No Sleep Apnea, COPD Currently Using CPAP: No Cardiac: Yes Atrial Fibrillation, High Cholesterol, Hypertension Neurological: No Reproductive Disorders: No Sexually Transmitted Disease: No HIV/AIDS: No Genitourinary: No Gastrointestinal: Yes Chronic Constipation Musculoskeletal: Yes Arthritis, Chronic Back Pain Endocrine: No HEENT: No Loss of Vision: Bilateral Hearing Impairment: Denies Psychosocial: Yes Anxiety Integumentary: No Blood Disorders: No Adverse Reaction/Blood Tranf: No (N/A) Physical Exam Vital Signs Vital Signs - First Documented 09/26/20 10:54 Temp 35.9 Pulse 62 Resp 18 B/P (MAP) 162/76 (104) Pulse Ox 98 O2 Delivery Room Air Capillary Refill : Less Than 3 Seconds Height/Weight/BMI Height: 5'4.00" Weight: 182lbs. 0.6oz. 77.556236sj; 27.00 BMI Method:Stated General Appearance: WD/WN, no apparent distress HEENT: PERRL/EOMI, pharynx normal Neck: full range of motion, normal inspection Respiratory: crackles (Faint bilateral bases) Cardiovascular: normal peripheral pulses, regular rate, rhythm Peripheral Pulses: 2+ Radial Pulses (R), 2+ Radial Pulses (L) Gastrointestinal: normal bowel sounds, non tender, soft Neurologic/Psychiatric: alert, oriented x 3, other (Anxious affect, hard of hearing) Skin: normal color, warm/dry Focused Exam Lactate Level 09/26/20 12:15: Lactic Acid Level 1.76 Lactic Acid Level Laboratory Tests Test 09/26/20 12:15 Lactic Acid Level 1.76 MMOL/L (0.50-2.00) Progress/Results/Core Measures Results/Orders Lab Results Laboratory Tests Test 09/26/20 11:05 09/26/20 11:10 09/26/20 12:10 09/26/20 12:15 Range/Units White Blood Count 5.8 4.3-11.0 10^3/uL Red Blood Count 4.76 3.80-5.11 10^6/uL Hemoglobin 13.8 11.5-16.0 g/dL Hematocrit 42 35-52 % Mean Corpuscular Volume 87 80-99 fL Mean Corpuscular Hemoglobin 29 25-34 pg Mean Corpuscular Hemoglobin Concent 33 32-36 g/dL Red Cell Distribution Width 14.1 10.0-14.5 % Platelet Count 394 130-400 10^3/uL Mean Platelet Volume 11.4 9.0-12.2 fL Immature Granulocyte % (Auto) 0 % Neutrophils (%) (Auto) 63 42-75 % Lymphocytes (%) (Auto) 25 12-44 % Monocytes (%) (Auto) 10 0-12 % Eosinophils (%) (Auto) 2 0-10 % Basophils (%) (Auto) 1 0-10 % Neutrophils # (Auto) 3.6 1.8-7.8 10^3/uL Lymphocytes # (Auto) 1.4 1.0-4.0 10^3/uL Monocytes # (Auto) 0.6 0.0-1.0 10^3/uL Eosinophils # (Auto) 0.1 0.0-0.3 10^3/uL Basophils # (Auto) 0.0 0.0-0.1 10^3/uL Immature Granulocyte # (Auto) 0.0 0.0-0.1 10^3/uL D-Dimer 0.35 0.00-0.49 UG/ML Sodium Level 140 135-145 MMOL/L Potassium Level 3.1 L 3.6-5.0 MMOL/L Chloride Level 104 98-107 MMOL/L Carbon Dioxide Level 23 21-32 MMOL/L Anion Gap 13 5-14 MMOL/L Blood Urea Nitrogen 11 7-18 MG/DL Creatinine 0.79 0.60-1.30 MG/DL Estimat Glomerular Filtration Rate > 60 BUN/Creatinine Ratio 14 Glucose Level 91 70-105 MG/DL Calcium Level 9.1 8.5-10.1 MG/DL Corrected Calcium 9.3 8.5-10.1 MG/DL Phosphorus Level 3.0 2.3-4.7 MG/DL Magnesium Level 1.6 1.6-2.4 MG/DL Total Bilirubin 1.6 H 0.1-1.0 MG/DL Aspartate Amino Transf (AST/SGOT) 30 5-34 U/L Alanine Aminotransferase (ALT/SGPT) 26 0-55 U/L Alkaline Phosphatase 73 40-136 U/L C-Reactive Protein High Sensitivity 0.27 0.00-0.50 MG/DL Total Protein 6.9 6.4-8.2 GM/DL Albumin 3.7 3.2-4.5 GM/DL Procalcitonin 0.03 <0.10 NG/ML Coronavirus 2019 (PRANEETH) Positive H Negative Urine Color YELLOW Urine Clarity CLEAR Urine pH 5.5 5-9 Urine Specific [place] 1.025 H 1.016-1.022 Urine Protein 1+ H NEGATIVE Urine Glucose (UA) NEGATIVE NEGATIVE Urine Ketones 1+ H NEGATIVE Urine Nitrite NEGATIVE NEGATIVE Urine Bilirubin 2+ H NEGATIVE Urine Urobilinogen 1.0 < = 1.0 MG/DL Urine Leukocyte Esterase NEGATIVE NEGATIVE Urine RBC (Auto) TRACE-I NEGATIVE Urine RBC RARE /HPF Urine WBC RARE /HPF Urine Squamous Epithelial Cells RARE /HPF Urine Crystals PRESENT H /LPF Urine Amorphous Sediment RARE VICTOR MANUEL URATES H /LPF Urine Bacteria TRACE /HPF Urine Casts NONE /LPF Urine Mucus MODERATE H /LPF Urine Culture Indicated NO Lactic Acid Level 1.76 0.50-2.00 MMOL/L My Orders Orders - PEPITO JOHN Covid 19 Inhouse Test (09/26/20 11:27) Coronavirus Sars-Cov-2 So 2018 (09/26/20 11:27) Influenza A And B Antigens (09/26/20 11:27) Cbc With Automated Diff (09/26/20 11:27) Comprehensive Metabolic Panel (09/26/20 11:27) Hs C Reactive Protein (09/26/20 11:27) Procalcitonin (Pct) (09/26/20 11:27) Fibrin Degradation Products (09/26/20 11:27) Ua Culture If Indicated (09/26/20 11:27) Magnesium (09/26/20 11:27) Phosphorus (09/26/20 11:27) Ed Iv/Invasive Line Start (09/26/20 11:27) Lactated Ringers (Lr 1000 Ml Iv Solution (09/26/20 11:30) Ed Iv/Invasive Line Start (09/26/20 11:27) Ed Iv/Invasive Line Start (09/26/20 11:27) Lactated Ringers (Lr 1000 Ml Iv Solution (09/26/20 11:30) Blood Culture (09/26/20 11:27) Lactic Acid Analyzer (09/26/20 11:27) Catheter(Urinary) Insert & Ass 03,15 (09/26/20 12:05) Ketorolac Injection (Toradol Injection) (09/26/20 12:15) Ketorolac Injection (Toradol Injection) (09/26/20 12:11) Medications Given in ED Current Medications Medications Dose Ordered Sig/Jimi Route Start Time Stop Time Status Last Admin Dose Admin Ketorolac Tromethamine 30 mg ONCE ONCE IVP 09/26/20 12:15 09/26/20 12:16 DC 09/26/20 12:18 30 MG Lactated Ringer's 1,000 ml @ 0 mls/hr Q0M ONCE IV 09/26/20 11:30 09/26/20 11:34 DC 09/26/20 12:02 0 MLS/HR Lactated Ringer's 1,000 ml @ 0 mls/hr Q0M ONCE IV 09/26/20 11:30 09/26/20 11:34 DC 09/26/20 12:02 0 MLS/HR Vital Signs/I&O 09/26/20 10:54 Temp 35.9 Pulse 62 Resp 18 B/P (MAP) 162/76 (104) Pulse Ox 98 O2 Delivery Room Air Blood Pressure Mean: 104 Progress Progress Note : Time: 12:47 Progress Note Toradol for her body aches. We will put her on Imodium and 2 L would be 30 mL/kg fluid bolus for her dehydration. Plan to hold onto her in the hospital for dehydration management. Diagnostic Imaging Diagonstic Imaging: Xray Plain Films/CT/US/NM/MRI: chest Reviewed: Reviewed by Me Departure Communication (Admissions) Time/Spoke to Admitting Phy: 12:15 Discussed the case with Dr. Williamson and she agrees to place the patient in the hospital on IV fluids. Impression Primary Impression: COVID-19 Additional Impressions: Dehydration Delirium due to another medical condition, acute, hypoactive Disposition: ADMITTED INPATIENT Condition: Stable Admissions Decision to Admit Reason: Admit from ER (General) Decision to Admit/Date: Sep 26, 2020 Time/Decision to Admit Time: 12:00 Departure-Patient Inst. Referrals: JUSTIN JOHNSON MD (PCP/Family) Primary Care Physician PEPITO JOHN Sep 26, 2020 12:45
--- NOTE | 2020-09-26 12:54 | NUR ---
THIS RN NOTIFIED SON OF PLANS TO ADMIT. UNDERSTANDING VOICED.
[2020-09-26 13:37] LABS: INR 2.4 (0.8-1.4); PROTHROMBIN TIME PATIENT 26.7 SEC (12.2-14.7)
--- NOTE | 2020-09-26 14:04 | Diagnostic Imaging Report ---
INDICATION: Shortness of air. COMPARISON: February 23, 2017. TECHNIQUE: Single radiograph of the chest dated September 26, 2020. FINDINGS: Pacer device is again noted with the battery pack overlying the right chest. The cardiac silhouette is enlarged, though stable. Mild central pulmonary vasculature congestion. Slightly increased interstitial opacities are noted within lungs, particularly peripherally. No large-volume pleural effusion. No pneumothorax. Scattered osseous degenerative changes without acute osseous abnormality. IMPRESSION: Cardiomegaly with mild central pulmonary vascular congestion and minimal interstitial edema without significant pleural effusion. Dictated by: Dictated on workstation # [id number]
--- NOTE | 2020-09-26 15:04 | NUR ---
LUCITA ORLANDO admitted to room 421-1, with an admitting diagnosis of COVID-19 AND DEHYDRATION, on 09/26/20 from THE EMERGENCY DEPARTMENT, accompanied by STAFF. LUCITA ORLANDO introduced to surroundings, call light, bed controls, phone, TV, temperature control, lights, meal times, smoking policy, visitor policy, side rail policy, bathrooms and showers. Patient Rights given to patient in the handbook. LUCITA ORLANDO verbalizes understanding that [facility] is not responsible for the loss or damage to any personal effects or valuables that are kept in the patient's possession during their hospitalization. The following Patient Care Plans were discussed with the PATIENT: Discharge Planning, FLUID VOLUME DEFICIT, and KNOWLEDGE DEFICIT. LUCITA ORLANDO verbalizes understanding of Interdisciplinary Patient Education.
[2020-09-26 15:06] VITALS: BP 144/70
[2020-09-26] MEDS ORDERED: IBUPROFEN 600 MG (MOTRIN) TAB PO PRN (15:30)
[2020-09-26] MEDS ORDERED: ONDANSETRON 4 MG/2 ML (SDV) Z0FRAN IV PRN (15:30)
[2020-09-26] MEDS ORDERED: LOPERAMIDE 2 MG (IMODIUM) TABLET PO PRN (15:30)
[2020-09-26 15:33] VITALS: BP 144/70
[2020-09-26] MEDS: LACTATED RINGERS 1,000 ML IV SCH ×2 (15:56→20:26)
[2020-09-26] MEDS ORDERED: AMIT25TA9 PO (16:10)
[2020-09-26] MEDS ORDERED: GABA300C PO (16:10)
[2020-09-26] MEDS ORDERED: WARF3TAB56 PO ×2 (16:10)
[2020-09-26] MEDS ORDERED: CITA10TA12 PO (16:10)
[2020-09-26] MEDS ORDERED: TRM50T PO (16:10)
[2020-09-26] MEDS ORDERED: DORZ10DR27 OU (16:10)
[2020-09-26] MEDS ORDERED: FLUT1BLS IH (16:14)
[2020-09-26] MEDS ORDERED: PRAV10TA PO (16:14)
[2020-09-26] MEDS ORDERED: FURO40TA4 PO (16:14)
[2020-09-26 16:56] VITALS: BP 124/68
--- NOTE | 2020-09-26 17:52 | NUR ---
DR. CIFUENTES INFORMED OF DVT RISK. INR IS 2.4. DR. CIFUENTES STATES THAT SHE WILL RECHECK INR IN THE AM AND GO FROM THERE.
[2020-09-26 20:02] VITALS: BP 142/64
[2020-09-26] MEDS: rOPINIRole 1 MG (REQUIP) TABLET PO SCH (20:24)
[2020-09-26] MEDS: ATENOLOL 50 MG (TENORMIN) TAB PO SCH (20:26)
[2020-09-26 23:55] VITALS: BP 143/75
--- NOTE | 2020-09-27 00:47 | NUR ---
PT ATTEMPTING TO PULL AT IV. PT CONFUSED AND TRYING TO GET OUT BED TO GO TO THE BATHROOM. PT EDUCATED ON CATHETER USE AND RISK FOR FALLS. DR. CIFUENTES NOTIFIED. NEW ORDERS RECEIVED.
[2020-09-27] MEDS: LORazepam INJ 2 MG/ML (ATIVAN) VIAL IVP PRN ×4 (01:09→23:00)
[2020-09-27 04:00] VITALS: BP 142/76
[2020-09-27] MEDS: LACTATED RINGERS 1,000 ML IV SCH ×3 (04:07→17:19)
[2020-09-27] MEDS ORDERED: HALOPERIDOL 5 MG/ML (HALDOL) VIAL ONE (05:43)
[2020-09-27] MEDS ORDERED: HALOPERIDOL 5 MG/ML (HALDOL) VIAL IM ONE (05:45)
--- NOTE | 2020-09-27 05:46 | NUR ---
pt continuing to attempt to climb out of bed. pt educated on risk for falls. notified. new orders received.
[2020-09-27 06:14] LABS: BASOPHILS % (AUTO) 0 % (0-10); EOSINOPHILS # (AUTO) 0.2 10^3/uL (0.0-0.3); EOSINOPHILS % (AUTO) 3 % (0-10); HEMATOCRIT 38 % (35-52); HEMOGLOBIN 12.3 g/dL (11.5-16.0); LYMPHOCYTES # (AUTO) 1.9 10^3/uL (1.0-4.0); LYMPHOCYTES % (AUTO) 32 % (12-44); MEAN CORPUSCULAR HEMOGLOBIN 29 pg (25-34); MEAN CORPUSCULAR HGB CONC 33 g/dL (32-36); MEAN CORPUSCULAR VOLUME 88 fL (80-99); MONOCYTES # (AUTO) 0.6 10^3/uL (0.0-1.0); MONOCYTES % (AUTO) 9 % (0-12); NEUTROPHILS # (AUTO) 3.3 10^3/uL (1.8-7.8); NEUTROPHILS % (AUTO) 55 % (42-75); PLATELET COUNT 349 10^3/uL (130-400)
[2020-09-27 06:25] LABS: ALBUMIN 3.2 GM/DL (3.2-4.5); CHLORIDE 107 MMOL/L (98-107); POTASSIUM 3.2 MMOL/L (3.6-5.0); SODIUM 139 MMOL/L (135-145)
[2020-09-27 06:27] LABS: CALCIUM 8.6 MG/DL (8.5-10.1)
[2020-09-27 06:28] LABS: GLUCOSE 92 MG/DL (70-105); TOTAL PROTEIN 5.9 GM/DL (6.4-8.2)
[2020-09-27 06:29] LABS: CARBON DIOXIDE 22 MMOL/L (21-32)
[2020-09-27 06:30] LABS: BILIRUBIN,TOTAL 1.6 MG/DL (0.1-1.0)
[2020-09-27 06:31] LABS: ALKALINE PHOSPHATASE 64 U/L (40-136); CREATININE SERUM 0.66 MG/DL (0.60-1.30); GFR ESTIMATED > 60
[2020-09-27 06:31] LABS: INR 2.1 (0.8-1.4); PROTHROMBIN TIME PATIENT 23.9 SEC (12.2-14.7)
[2020-09-27 06:33] LABS: BUN/CREATININE RATIO 15
[2020-09-27 06:34] LABS: ALANINE AMINOTRANSFERASE 22 U/L (0-55)
[2020-09-27 08:00] VITALS: BP 176/79
[2020-09-27] MEDS: MELOXICAM 7.5 MG (MOBIC) TABLET PO SCH (09:21)
[2020-09-27] MEDS: MONTELUKAST 10 MG (SINGULAIR) TAB PO SCH (09:21)
[2020-09-27] MEDS: VERAPAMIL SR 240 MG (CALAN SR) TAB PO SCH (09:22)
[2020-09-27] MEDS: ATENOLOL 50 MG (TENORMIN) TAB PO SCH ×2 (09:22→20:42)
[2020-09-27 15:25] LABS: ABG BASE EXCESS 0.8 MMOL/L (-2.5-2.5); ABG OXYGEN SATURATION 98 % (94-100); ABG PCO2 38 MMHG (35-45); ABG PH 7.43 (7.37-7.43); ABG PO2 109 MMHG (79-93)
[2020-09-27 15:31] LABS: ALLENS TEST YES-POS; INSPIRED O2 3L; PATIENT TEMP 36.5; VENTILATOR NO
[2020-09-27 16:00] VITALS: BP 136/66
--- NOTE | 2020-09-27 16:21 | History & Physical-Hospitalist ---
History of Present Illness HPI/Chief Complaint Citlaly Salazar is a 80 year old female who presented with diarrhea. She has been having fevers and cough for about a week. She is unable to provide history due to her current clinical condition. She has been delirious and has a sitter at her bedside. She recently received a dose of Ativan and is unable to provide any history. Per nursing, the son reported that she has had some memory issues but takes care of herself for the most part at home. Source: RN/MD Exam Limitations: clinical condition Date Seen 09/27/20 Time Seen by a Provider: 10:55 Attending Physician Marco A Cárdenas MD PCP Jason Boudreaux MD Referring Physician Date of Admission Sep 26, 2020 at 12:50 Home Medications & Allergies Home Medications Reviewed patient Home Medication Reconciliation performed by pharmacy medication reconciliations ophthalmology technician and/or nursing. Patients Allergies have been reviewed. Allergies Allergies Coded Allergies doxycycline (Unverified Allergy, Mild, 11/26/17) Past Uzmeyvo-Bifozw-Jdotvi Hx Past Med/Social Hx: Reviewed Nursing Past Med/Soc Hx Patient Social History Alcohol Use: Denies Use Recreational Drug Use: No Smoking Status: Never a Smoker Recent Foreign Travel: No Contact w/other who traveled: No Recent Hopitalizations: No Recent Infectious Disease Expo: No Immunizations Up To Date Date of Pneumonia Vaccine: Oct 30, 2016 Date of Influenza Vaccine: Jun 24, 2020 Seasonal Allergies Seasonal Allergies: Yes Past Medical History Surgeries: Section, Tonsillectomy Currently Using CPAP: No Cardiac: Atrial Fibrillation, High Cholesterol, Hypertension Reproductive: No Sexually Transmitted Disease: No HIV/AIDS: No Gastrointestinal: Chronic Constipation Musculoskeletal: Arthritis, Chronic Back Pain HEENT: Glaucoma Loss of Vision: Bilateral Hearing Impairment: Denies Psychosocial: Anxiety History of Blood Disorders: No Adverse Reaction to Blood Jaime: No (N/A) Review of Systems Constitutional: see HPI Physical Exam Physical Exam Vital Signs Vital Signs - First Documented 09/26/20 09/27/20 10:54 16:00 Temp 35.9 Pulse 62 Resp 18 B/P (MAP) 162/76 (104) Pulse Ox 98 O2 Delivery Room Air O2 Flow Rate 3.00 Capillary Refill : Less Than 3 Seconds Height, Weight, BMI Height: 5'4.00" Weight: 182lbs. 0.6oz. 77.383498xf; 27.60 BMI Method:Stated General Appearance: No Apparent Distress, WD/WN Respiratory: Lungs Clear, Normal Breath Sounds, No Respiratory Distress Cardiovascular: Regular Rate, Rhythm, No Edema, No Murmur Gastrointestinal: Normal Bowel Sounds, Non Tender, Soft Extremity: Normal Inspection, Non Tender, No Pedal Edema Neurologic/Psychiatric: Other (lethargic, uncooperative) Skin: Normal Color, Warm/Dry Results Results/Procedures Labs Laboratory Tests 09/26/20 11:05 09/27/20 05:45 09/27/20 05:52 Patient resulted labs reviewed. Imaging: Reviewed Imaging Report Assessment/Plan Admission Diagnosis COVID-19 Admission Status: Observation Assessment and Plan COVID-19 Diarrhea due to COVID-19 Delirium COVID PRANEETH positive No oxygen requirement, not started on COVID therapies Imodium for diarrhea, improved Ativan and Haldol as needed for agitation Reorient as needed Sitter at bedside DVT Prophylaxis: Lovenox Diagnosis/Problems Diagnosis/Problems (1) COVID-19 Status: Acute (2) Diarrhea due to COVID-19 Status: Acute (3) Delirium Status: Acute Clinical Quality Measures DVT/VTE Risk/Contraindication: Risk Factor Score Per Nursin RFS Level Per Nursing on Admit: 4+=Very High MARCO A CÁRDENAS MD Sep 27, 2020 16:21
--- NOTE | 2020-09-27 17:19 | NUR ---
"RD ASSESSMENT PMHx: COPD; afib; hypercholesterolemia; HTN; chronic constipation; PT INTERACTION: Received dietary consult for MST score. Note pt is currently in COVID isolation, per chart review. Note all diet information for nutrition consult is per Marleen HEWITT, or per chart review. Marleen states current appetite appears poor. Note avg PO intake <25% meals, per chart review. Marleen states no issues with n/v/c/d that she is aware of. Note no BM has been recorded, and pt not currently on bowel regimen per chart review. Note recent 20# wt loss x4mon, per chart review. This is significant wt loss at 10.5%. Note unable to complete visual assessment d/t isolation precautions. Given PO intake and wt hx, pt meets criteria for malnutrition per ASPEN guidelines. Est. kcal needs: [id number] kcal | 20-25 kcal/kg Est. Pro needs: 62-77 g Pro | 0.8-1.0 g Pro/kg PES STATEMENT: Inadequate oral intake (NI-2.1) related to loss of appetite, as evidenced by chart review, and avg PO intake <25% meals. INTERVENTION: Continue with current diet order of 2000mg Na diet. Continue with current supplementation order of Ensure Enlive (vary) with meals TID, for increased kcal intake. Provides 350 kcal and 20 g Pro per serving. Will continue to follow and reassess as pt needs, intake, and status change. Jonathan LOPEZ MS RD LD [phone] cell"
[2020-09-27] MEDS: POTASSIUM CL 10MEQ/50ML IVPB 50 ML IV SCH ×4 (17:20→21:49)
[2020-09-27] MEDS: ENOXAPARIN 40 MG/0.4 ML (LOVENOX) SYR SC SCH (17:20)
[2020-09-27 19:08] VITALS: BP 136/77
[2020-09-27] MEDS: rOPINIRole 1 MG (REQUIP) TABLET PO SCH (20:42)
[2020-09-27] MEDS: ACETAMINOPHEN 325 MG TABLET PO PRN (23:46)
[2020-09-27 23:48] VITALS: BP 166/81
--- NOTE | 2020-09-28 00:04 | NUR ---
pt awake attempting to climb out of bed, appears to be short of breath, pt continues to say "help me" but is confused and doesn't give more information. Pt respiratory rate at 36, O2 94% on 1L, IV ativan given per EMAR but did not help after 1 hour, Dr. Chatman notified of pt shortness of breath, increased RR, and pt's agitation, that pt got 2mg of haldol earlier in the day, as well as pt's extended med history that shows pt had lasix refilled a month ago. received new orders for haldol 2mg IM, Lasix 40 mg IV once, and geodan 10mg IM Q4 prn.
[2020-09-28] MEDS ORDERED: WATER (STERILE) FOR INJECTION 10 ML ONE (00:12)
[2020-09-28] MEDS ORDERED: FUROSEMIDE 40 MG/4 ML INJ (LASIX) ONE (00:12)
[2020-09-28] MEDS ORDERED: ZIPRASIDONE 20 MG INJ (GEODON) VIAL IM ONE (00:12)
[2020-09-28] MEDS ORDERED: FUROSEMIDE 40 MG/4 ML INJ (LASIX) IVP ONE (00:15)
[2020-09-28] MEDS ORDERED: ZIPRASIDONE 20 MG INJ (GEODON) VIAL IM PRN ×2 (00:15→07:45)
[2020-09-28] MEDS ORDERED: HALOPERIDOL 5 MG/ML (HALDOL) VIAL IM ONE (00:15)
[2020-09-28 00:20] VITALS: BP 166/81
[2020-09-28] MEDS: LACTATED RINGERS 1,000 ML IV SCH ×4 (00:28→20:26)
[2020-09-28] MEDS ORDERED: RT-ALBUTEROL INHALER HFA (VENTOLIN HFA) 18 GM IH PRN (00:45)
[2020-09-28] MEDS: LORazepam INJ 2 MG/ML (ATIVAN) VIAL IVP PRN ×3 (03:30→21:17)
[2020-09-28] MEDS ORDERED: HALOPERIDOL 5 MG/ML (HALDOL) VIAL ONE (04:10)
[2020-09-28 04:22] VITALS: BP 165/79
[2020-09-28] MEDS: RT-ALBUTEROL INHALER HFA (VENTOLIN HFA) 18 GM IH SCH ×2 (06:40→21:19)
[2020-09-28 07:23] LABS: BUN/CREATININE RATIO 15; CALCIUM 8.5 MG/DL (8.5-10.1); CARBON DIOXIDE 27 MMOL/L (21-32); CHLORIDE 109 MMOL/L (98-107); CREATININE SERUM 0.67 MG/DL (0.60-1.30); GFR ESTIMATED > 60; GLUCOSE 84 MG/DL (70-105); MAGNESIUM 1.6 MG/DL (1.6-2.4); POTASSIUM 3.1 MMOL/L (3.6-5.0); SODIUM 144 MMOL/L (135-145)
[2020-09-28 07:37] VITALS: BP 162/84
[2020-09-28] MEDS ORDERED: MAGNESIUM 1 GM/100 ML IVPB 100 ML IV SCH (07:45)
[2020-09-28] MEDS ORDERED: KCL 20 MEQ TAB (K-DUR) PO NR (08:00)
[2020-09-28] MEDS: MELOXICAM 7.5 MG (MOBIC) TABLET PO SCH (08:42)
[2020-09-28] MEDS: VERAPAMIL SR 240 MG (CALAN SR) TAB PO SCH (08:42)
[2020-09-28] MEDS: MONTELUKAST 10 MG (SINGULAIR) TAB PO SCH (08:42)
[2020-09-28] MEDS: ATENOLOL 50 MG (TENORMIN) TAB PO SCH ×2 (08:42→20:27)
[2020-09-28] MEDS ORDERED: POTA-51 PO (09:10)
[2020-09-28] MEDS ORDERED: LATA2.5D19 OU (09:10)
--- NOTE | 2020-09-28 09:14 | NUR ---
UNABLE TO SPEAK WITH THE PT, THEREFORE I CALLED HER SON (DAVID), GOT A MED LIST FROM DR. JOHNSON, WENT THRU THE EXT MED HISTORY AND CALLED [facility] TO COMPLETE THE MED REC PT IS NOT ABLE TO TELL ME ABOUT HER MEDICATIONS, WHEN I SPOKE WITH HER SON HE LET ME KNOW HER HOME MEDS ARE WITH HER BUT HE DID NOT HAVE A MED LIST AND WASNT SURE HOW OR WHEN SHE IS TAKING HER MEDICATIONS. LANCE HEWITT PUT HER HOME MEDS IN A BUCKET AND PLACE IT ON THE DIRTY CART SO I COULD GO THROUGH THEM. THERE WAS A SMALL/MEDIUM SIZED BAG FULL OF MEDICATIONS- HOWEVER WHEN I STARTED LOOKING THRU THEM THERE WERE MULTIPLE BOTTLES OF THE SAME MEDICATIONS, WITH CARLOS DATED FROM THE PAST FEW MONTHS AND THEY ALL HAD SOME TABS IN THEM. DUE TO THE INFORMATION LISTED ABOVE AND THE FACT THAT THE PT IS NOT ABLE TO ANSWER QUESTIONS I HAVE COMPLETED THE MED REC USING THE MED LIST FROM [facility] AND THE EXT MED HISTORY ON 07-02-2020 RHONDA FILLED THE FOLLOWING: MONTELUKAST 10MG #90/90DS PRAVASTATIN 10MG #90/90DS
[2020-09-28 12:01] VITALS: BP 148/67
--- NOTE | 2020-09-28 15:05 | Progress Note - Hospitalist ---
Subjective HPI/CC On Admission Date Seen by Provider: Sep 28, 2020 Time Seen by Provider: 10:25 Citlaly Salazar is a 80 year old female who presented with diarrhea. She has been having fevers and cough for about a week. She is unable to provide history due to her current clinical condition. She has been delirious and has a sitter at her bedside. She recently received a dose of Ativan and is unable to provide any history. Per nursing, the son reported that she has had some memory issues but takes care of herself for the most part at home. Subjective/Events-last exam She is more awake today. She is able to tell me her name, where she is at, and the year. She is sleepy and not able to provide much information. She denies pain. Focused Exam Lactate Level 09/26/20 12:15: Lactic Acid Level 1.76 Objective Exam Vital Signs Vital Signs Date Time Temp Pulse Resp B/P (MAP) Pulse Ox O2 Delivery O2 Flow Rate FiO2 09/28/20 12:01 36.6 63 28 148/67 (94) 95 Nasal Cannula 1.00 09/28/20 06:40 90 Capillary Refill : Less Than 3 Seconds General Appearance: No Apparent Distress, WD/WN Respiratory: Lungs Clear, Normal Breath Sounds, No Respiratory Distress Cardiovascular: Regular Rate, Rhythm, No Edema, No Murmur Gastrointestinal: Normal Bowel Sounds, Non Tender, Soft Extremity: Normal Inspection, Non Tender, No Pedal Edema Neurologic/Psychiatric: Oriented x3, Motor Weakness, Other (lethargic) Skin: Normal Color, Warm/Dry Results/Procedures Lab Laboratory Tests 09/28/20 06:51 Patient resulted labs reviewed. Imaging: Reviewed Imaging Report Assessment/Plan Assessment and Plan Assess & Plan/Chief Complaint Acute respiratory failure due to COVID-19 COVID PRANEETH positive Requiring supplemental oxygen today Begin Decadron Outside of window for Remdesivir Dementia Delirium Ativan and Haldol as needed for agitation Reorient as needed Sitter at bedside Hypokalemia Hypomagnesemia Monitor and replace as needed DVT Prophylaxis: Lovenox Diarrhea due to COVID-19, resolved Diagnosis/Problems Diagnosis/Problems (1) Acute respiratory failure due to COVID-19 Status: Acute (2) COVID-19 Status: Acute (3) Diarrhea due to COVID-19 Status: Resolved Resolution Date/Time: 09/28/20 @ 15:04 (4) Delirium Status: Acute Clinical Quality Measures DVT/VTE Risk/Contraindication: Risk Factor Score Per Nursin RFS Level Per Nursing on Admit: 4+=Very High MARCO A CÁRDENAS MD Sep 28, 2020 15:05
[2020-09-28 15:26] VITALS: BP 156/85
[2020-09-28] MEDS: ENOXAPARIN 40 MG/0.4 ML (LOVENOX) SYR SC SCH (17:28)
[2020-09-28] MEDS ORDERED: warFARin 1 MG (COUMADIN) TAB PO SCH (18:00)
[2020-09-28] MEDS ORDERED: warFARin 2.5 MG (COUMADIN) TAB PO SCH (18:00)
[2020-09-28 20:27] VITALS: BP 164/82
[2020-09-28] MEDS: rOPINIRole 1 MG (REQUIP) TABLET PO SCH (20:27)
[2020-09-28] MEDS: ACETAMINOPHEN 325 MG TABLET PO PRN (21:42)
--- NOTE | 2020-09-28 21:45 | NUR ---
PT URINE IS RED WINE COLORED, DR LOMBARDO NOTIFIED OF THE COLOR OS URINE AND THAT PT HAS LOVENOX AND COUMADIN ORDERED, DR ORDERED TO HOLD THOSE FOR NOW
[2020-09-29] VITALS: BP 136/78
[2020-09-29] MEDS: ACETAMINOPHEN 325 MG TABLET PO PRN ×2 (03:09→21:51)
[2020-09-29] MEDS: LORazepam INJ 2 MG/ML (ATIVAN) VIAL IVP PRN ×2 (03:12→21:50)
[2020-09-29] MEDS: HALOPERIDOL 5 MG/ML (HALDOL) VIAL IM PRN ×2 (04:02→20:13)
[2020-09-29] MEDS: RT-ALBUTEROL INHALER HFA (VENTOLIN HFA) 18 GM IH SCH ×2 (06:58→18:25)
[2020-09-29 07:29] LABS: INR 1.4 (0.8-1.4); PROTHROMBIN TIME PATIENT 17.2 SEC (12.2-14.7)
[2020-09-29 07:37] LABS: BUN/CREATININE RATIO 18; CALCIUM 8.8 MG/DL (8.5-10.1); CARBON DIOXIDE 26 MMOL/L (21-32); CHLORIDE 107 MMOL/L (98-107); CREATININE SERUM 0.67 MG/DL (0.60-1.30); GFR ESTIMATED > 60; GLUCOSE 112 MG/DL (70-105); MAGNESIUM 2.1 MG/DL (1.6-2.4); POTASSIUM 3.6 MMOL/L (3.6-5.0); SODIUM 142 MMOL/L (135-145)
[2020-09-29 07:45] VITALS: BP 170/82
[2020-09-29 07:58] LABS: ALBUMIN 3.3 GM/DL (3.2-4.5); BILIRUBIN,DIRECT 0.7 MG/DL (0.0-0.3); BILIRUBIN,INDIRECT 0.8 MG/DL; BILIRUBIN,TOTAL 1.5 MG/DL (0.1-1.0); TOTAL PROTEIN 6.1 GM/DL (6.4-8.2)
[2020-09-29] MEDS: MONTELUKAST 10 MG (SINGULAIR) TAB PO SCH (08:05)
[2020-09-29] MEDS: ATENOLOL 50 MG (TENORMIN) TAB PO SCH ×2 (08:05→20:13)
[2020-09-29] MEDS: VERAPAMIL SR 240 MG (CALAN SR) TAB PO SCH (08:05)
[2020-09-29] MEDS: MELOXICAM 7.5 MG (MOBIC) TABLET PO SCH (08:06)
[2020-09-29] MEDS: risperiDONE 0.25 MG (RisperDAL) TAB PO SCH ×2 (10:44→20:13)
--- NOTE | 2020-09-29 13:37 | Progress Note - Hospitalist ---
Subjective HPI/CC On Admission Date Seen by Provider: Sep 29, 2020 Time Seen by Provider: 10:35 Citlaly Salazar is a 80 year old female who presented with diarrhea. She has been having fevers and cough for about a week. She is unable to provide history due to her current clinical condition. She has been delirious and has a sitter at her bedside. She recently received a dose of Ativan and is unable to provide any history. Per nursing, the son reported that she has had some memory issues but takes care of herself for the most part at home. Subjective/Events-last exam She is lethargic and uncooperative. Objective Exam Vital Signs Vital Signs Date Time Temp Pulse Resp B/P (MAP) Pulse Ox O2 Delivery O2 Flow Rate FiO2 09/29/20 08:16 22 09/29/20 08:11 Nasal Cannula 4.00 09/29/20 07:45 36.7 61 170/82 (111) 96 09/28/20 21:26 90 Capillary Refill : Less Than 3 Seconds General Appearance: No Apparent Distress, WD/WN Respiratory: Lungs Clear, Normal Breath Sounds, No Respiratory Distress Cardiovascular: Regular Rate, Rhythm, No Edema, No Murmur Gastrointestinal: Normal Bowel Sounds, Soft Extremity: Normal Inspection, No Pedal Edema Neurologic/Psychiatric: Other (lethargic, uncooperative, opens eyes to painful stimuli) Skin: Normal Color, Warm/Dry Results/Procedures Lab Laboratory Tests 09/29/20 06:09 Patient resulted labs reviewed. Imaging: Reviewed Imaging Report Assessment/Plan Assessment and Plan Assess & Plan/Chief Complaint Acute respiratory failure due to COVID-19 COVID PRANEETH positive Supplemental oxygen as needed Continue Decadron Dementia Delirium Begin Risperdal Ativan and Haldol as needed for agitation Reorient as needed Sitter at bedside Dark urine Hyperbilirubinemia Check UA dipstick UA on admission with no RBC, elevated bilirubin Liver panel with elevated bilirubin Monitor Hypokalemia Hypomagnesemia Monitor and replace as needed DVT Prophylaxis: Lovenox Diarrhea due to COVID-19, resolved Diagnosis/Problems Diagnosis/Problems (1) Acute respiratory failure due to COVID-19 Status: Acute (2) COVID-19 Status: Acute (3) Diarrhea due to COVID-19 Status: Resolved Resolution Date/Time: 09/28/20 @ 15:04 (4) Delirium Status: Acute Clinical Quality Measures DVT/VTE Risk/Contraindication: Risk Factor Score Per Nursin RFS Level Per Nursing on Admit: 4+=Very High MARCO A CÁRDENAS MD Sep 29, 2020 13:37
[2020-09-29] MEDS: LACTATED RINGERS 1,000 ML IV SCH ×2 (14:00→17:06)
[2020-09-29 15:51] VITALS: BP 167/88
[2020-09-29 15:53] LABS: CLARITY,URINE CLOUDY; GLUCOSE, URINE (UA) NEGATIVE (NEGATIVE); NITRITE,URINE POSITIVE (NEGATIVE); PROTEIN,URINE 2+ (NEGATIVE)
[2020-09-29 16:41] LABS: COLOR,URINE RED; KETONES,URINE NEGATIVE (NEGATIVE)
[2020-09-29 16:42] LABS: BILIRUBIN,URINE 1+ (NEGATIVE); LEUKOCYTE ESTERASE ,URINE NEGATIVE (NEGATIVE)
--- NOTE | 2020-09-29 18:20 | NUR ---
DR CÁRDENAS NOTIFIED OF WINE COLORED URINE IN LEDESMA, URINE RBCV 3+, NEW ORDER: HOLD COUMADIN, CONSULT JILL. DR MLECHOR NOTIFIED OF CONSULT.
[2020-09-29] MEDS: rOPINIRole 1 MG (REQUIP) TABLET PO SCH (20:12)
[2020-09-30] VITALS: BP 170/84
[2020-09-30] MEDS: LACTATED RINGERS 1,000 ML IV SCH ×3 (03:29→23:36)
[2020-09-30] MEDS: HALOPERIDOL 5 MG/ML (HALDOL) VIAL IM PRN (03:31)
[2020-09-30 06:16] LABS: BASOPHILS % (AUTO) 1 % (0-10); EOSINOPHILS # (AUTO) 0.1 10^3/uL (0.0-0.3); EOSINOPHILS % (AUTO) 1 % (0-10); HEMATOCRIT 33 % (35-52); HEMOGLOBIN 10.8 g/dL (11.5-16.0); LYMPHOCYTES % (AUTO) 17 % (12-44); MEAN CORPUSCULAR HEMOGLOBIN 29 pg (25-34); MEAN CORPUSCULAR HGB CONC 32 g/dL (32-36); MEAN CORPUSCULAR VOLUME 91 fL (80-99); MEAN PLATELET VOLUME 11.2 fL (9.0-12.2); MONOCYTES # (AUTO) 0.6 10^3/uL (0.0-1.0); MONOCYTES % (AUTO) 9 % (0-12); NEUTROPHILS # (AUTO) 4.3 10^3/uL (1.8-7.8); NEUTROPHILS % (AUTO) 72 % (42-75); PLATELET COUNT 250 10^3/uL (130-400)
[2020-09-30 06:41] LABS: ALBUMIN 3.1 GM/DL (3.2-4.5); CHLORIDE 108 MMOL/L (98-107); POTASSIUM 3.5 MMOL/L (3.6-5.0); SODIUM 144 MMOL/L (135-145)
[2020-09-30 06:43] LABS: CALCIUM 8.7 MG/DL (8.5-10.1)
[2020-09-30 06:44] LABS: GLUCOSE 100 MG/DL (70-105); TOTAL PROTEIN 5.6 GM/DL (6.4-8.2)
[2020-09-30 06:45] LABS: CARBON DIOXIDE 23 MMOL/L (21-32)
[2020-09-30 06:46] LABS: BILIRUBIN,TOTAL 1.6 MG/DL (0.1-1.0)
[2020-09-30 06:47] LABS: ALKALINE PHOSPHATASE 61 U/L (40-136)
[2020-09-30 06:48] LABS: CREATININE SERUM 0.61 MG/DL (0.60-1.30); GFR ESTIMATED > 60
[2020-09-30 06:49] LABS: BILIRUBIN,DIRECT 0.7 MG/DL (0.0-0.3); BILIRUBIN,INDIRECT 0.9 MG/DL; BUN/CREATININE RATIO 21
[2020-09-30 06:50] LABS: ALANINE AMINOTRANSFERASE 15 U/L (0-55)
[2020-09-30 07:01] LABS: INR 1.3 (0.8-1.4); PROTHROMBIN TIME PATIENT 16.8 SEC (12.2-14.7)
[2020-09-30] MEDS: RT-ALBUTEROL INHALER HFA (VENTOLIN HFA) 18 GM IH SCH ×2 (07:36→18:36)
[2020-09-30 08:00] VITALS: BP 177/94
[2020-09-30] MEDS: MELOXICAM 7.5 MG (MOBIC) TABLET PO SCH (08:46)
[2020-09-30] MEDS: risperiDONE 0.25 MG (RisperDAL) TAB PO SCH ×2 (08:46→19:54)
[2020-09-30] MEDS: VERAPAMIL SR 240 MG (CALAN SR) TAB PO SCH (08:46)
[2020-09-30] MEDS: MONTELUKAST 10 MG (SINGULAIR) TAB PO SCH (08:46)
[2020-09-30] MEDS: ATENOLOL 50 MG (TENORMIN) TAB PO SCH ×2 (08:47→19:55)
--- NOTE | 2020-09-30 11:38 | CONSULTATION REPORT ---
DATE OF SERVICE: 09/30/2020 ATTENDING PHYSICIAN: Dr. Calix. SUMMARY: After reviewing the patient's records mostly, the patient is not a great historian. Information obtained from the chart and the nursing staff. A 80-year-old white lady admitted with diarrhea, was found to have a positive COVID, getting better on that aspect. Her urinalysis recently was negative. Catheter was inserted and the urine yesterday was found to be a little cloudy and reddish with 3+ blood and positive nitrites, it improved today on pushing fluids, to obtain a past history from her. IMPRESSION: Possible urinary tract infection with some hematuria. RECOMMENDATIONS: I would recommend to start her on some antibiotic for the urine, either maybe Macrobid or Bactrim or IV Rocephin daily. We will see her on a p.r.n. basis. Job ID: [id number] DocumentID: [id number] Dictated Date: 09/30/2020 11:08:18 Facility Service Associate Date: 09/30/2020 11:38:01 Dictated By: ELZBIETA MELCHOR MD
[2020-09-30 15:56] VITALS: BP 171/84
--- NOTE | 2020-09-30 15:58 | Progress Note - Hospitalist ---
Subjective HPI/CC On Admission Date Seen by Provider: Sep 30, 2020 Time Seen by Provider: 10:25 Citlaly Salazar is a 80 year old female who presented with diarrhea. She has been having fevers and cough for about a week. She is unable to provide history due to her current clinical condition. She has been delirious and has a sitter at her bedside. She recently received a dose of Ativan and is unable to provide any history. Per nursing, the son reported that she has had some memory issues but takes care of herself for the most part at home. Subjective/Events-last exam She is lethargic and uncooperative. Objective Exam Vital Signs Vital Signs Date Time Temp Pulse Resp B/P (MAP) Pulse Ox O2 Delivery O2 Flow Rate FiO2 09/30/20 08:00 36.0 63 20 177/94 (121) 90 Nasal Cannula 4.00 09/28/20 21:26 90 Capillary Refill : Less Than 3 Seconds General Appearance: No Apparent Distress, WD/WN Respiratory: Lungs Clear, Normal Breath Sounds, No Respiratory Distress Cardiovascular: Regular Rate, Rhythm, No Edema, No Murmur Gastrointestinal: Normal Bowel Sounds, Soft Extremity: Normal Inspection, No Pedal Edema Neurologic/Psychiatric: Other (lethargic, uncooperative) Skin: Normal Color, Warm/Dry Results/Procedures Lab Laboratory Tests 09/30/20 06:00 Patient resulted labs reviewed. Imaging: Reviewed Imaging Report Assessment/Plan Assessment and Plan Assess & Plan/Chief Complaint Acute respiratory failure due to COVID-19 COVID PRANEETH positive Supplemental oxygen as needed Continue Decadron Dementia Delirium Continue Risperdal Ativan and Haldol as needed for agitation Reorient as needed Possible UTI Check urine culture Begin Rocephin Hypokalemia Hypomagnesemia Monitor and replace as needed DVT Prophylaxis: Lovenox Diarrhea due to COVID-19, resolved Diagnosis/Problems Diagnosis/Problems (1) Acute respiratory failure due to COVID-19 Status: Acute (2) COVID-19 Status: Acute (3) Diarrhea due to COVID-19 Status: Resolved Resolution Date/Time: 09/28/20 @ 15:04 (4) Delirium Status: Acute Clinical Quality Measures DVT/VTE Risk/Contraindication: Risk Factor Score Per Nursin RFS Level Per Nursing on Admit: 4+=Very High MARCO A CÁRDENAS MD Sep 30, 2020 15:58
[2020-09-30] MEDS: cefTRIAXone FOR IV USE 1,000 MG in WATER (STERILE) FOR INJECTION 10 ML IV SCH (16:53)
[2020-09-30] MEDS: rOPINIRole 1 MG (REQUIP) TABLET PO SCH (19:54)
[2020-09-30] MEDS: ACETAMINOPHEN 325 MG TABLET PO PRN (19:54)
[2020-09-30 23:39] VITALS: BP 179/85
[2020-10-01] MEDS: LORazepam INJ 2 MG/ML (ATIVAN) VIAL IVP PRN (00:58)
[2020-10-01] MEDS: LACTATED RINGERS 1,000 ML IV SCH ×2 (05:44→15:40)
[2020-10-01 06:20] LABS: CHLORIDE 106 MMOL/L (98-107); INR 1.2 (0.8-1.4); POTASSIUM 3.6 MMOL/L (3.6-5.0); PROTHROMBIN TIME PATIENT 15.5 SEC (12.2-14.7); SODIUM 141 MMOL/L (135-145)
[2020-10-01 06:21] LABS: CALCIUM 8.9 MG/DL (8.5-10.1)
[2020-10-01 06:22] LABS: GLUCOSE 104 MG/DL (70-105)
[2020-10-01 06:23] LABS: CARBON DIOXIDE 25 MMOL/L (21-32)
[2020-10-01 06:26] LABS: CREATININE SERUM 0.62 MG/DL (0.60-1.30); GFR ESTIMATED > 60
[2020-10-01 06:27] LABS: BUN/CREATININE RATIO 19
[2020-10-01 06:28] LABS: MAGNESIUM 1.9 MG/DL (1.6-2.4)
[2020-10-01] MEDS: RT-ALBUTEROL INHALER HFA (VENTOLIN HFA) 18 GM IH SCH ×2 (07:27→19:38)
[2020-10-01 07:31] VITALS: BP 172/88
[2020-10-01 07:46] LABS: BASOPHILS % (AUTO) 0 % (0-10); EOSINOPHILS # (AUTO) 0.1 10^3/uL (0.0-0.3); EOSINOPHILS % (AUTO) 1 % (0-10); HEMATOCRIT 36 % (35-52); HEMOGLOBIN 11.3 g/dL (11.5-16.0); LYMPHOCYTES # (AUTO) 1.5 10^3/uL (1.0-4.0); LYMPHOCYTES % (AUTO) 23 % (12-44); MEAN CORPUSCULAR HEMOGLOBIN 29 pg (25-34); MEAN CORPUSCULAR HGB CONC 31 g/dL (32-36); MEAN CORPUSCULAR VOLUME 92 fL (80-99); MEAN PLATELET VOLUME 12.3 fL (9.0-12.2); MONOCYTES # (AUTO) 0.6 10^3/uL (0.0-1.0); MONOCYTES % (AUTO) 9 % (0-12); NEUTROPHILS # (AUTO) 4.2 10^3/uL (1.8-7.8); NEUTROPHILS % (AUTO) 66 % (42-75); PLATELET COUNT 276 10^3/uL (130-400); WHITE BLOOD COUNT 6.4 10^3/uL (4.3-11.0)
[2020-10-01] MEDS: ATENOLOL 50 MG (TENORMIN) TAB PO SCH ×2 (08:00→19:50)
[2020-10-01] MEDS: VERAPAMIL SR 240 MG (CALAN SR) TAB PO SCH (08:00)
[2020-10-01] MEDS: MELOXICAM 7.5 MG (MOBIC) TABLET PO SCH (08:00)
[2020-10-01] MEDS: MONTELUKAST 10 MG (SINGULAIR) TAB PO SCH (08:00)
[2020-10-01] MEDS: risperiDONE 1 MG (RisperDAL) TAB PO SCH ×2 (08:03→19:50)
[2020-10-01] MEDS ORDERED: warFARin 5 MG (COUMADIN) TAB PO NR (10:15)
--- NOTE | 2020-10-01 11:00 | NUR ---
LEDESMA REMOVED WITHOUT DIFFICULTY, 100 ML URINE IN LEDESMA AT TIME OF DC
--- NOTE | 2020-10-01 13:00 | NUR ---
UP IN CHAIR, ATTEMPTING TO FEED SELF, O2 ON PER NC AT 2 LITERS, O2 SAT 95 PERCENT, NO C/O PAIN OR SOB, CALL LIGHT WITHIN REACH, CONT TO HAVE SITTER DUE TO PATIENT GETTING UP, BED ALARM ON
--- NOTE | 2020-10-01 14:47 | Progress Note - Hospitalist ---
Subjective HPI/CC On Admission Date Seen by Provider: Oct 01, 2020 Time Seen by Provider: 10:00 Citlaly Salazar is a 80 year old female who presented with diarrhea. She has been having fevers and cough for about a week. She is unable to provide history due to her current clinical condition. She has been delirious and has a sitter at her bedside. She recently received a dose of Ativan and is unable to provide any history. Per nursing, the son reported that she has had some memory issues but takes care of herself for the most part at home. Subjective/Events-last exam She is confused. She is awake and cooperative. She denies any pain. She denies shortness of breath. Objective Exam Vital Signs Vital Signs Date Time Temp Pulse Resp B/P (MAP) Pulse Ox O2 Delivery O2 Flow Rate FiO2 10/01/20 08:00 Nasal Cannula 4.00 10/01/20 07:31 36.5 60 22 172/88 (116) 99 09/28/20 21:26 90 Capillary Refill : Less Than 3 Seconds General Appearance: No Apparent Distress, Chronically ill Respiratory: Lungs Clear, Normal Breath Sounds, No Respiratory Distress Cardiovascular: Regular Rate, Rhythm, No Edema, No Murmur Gastrointestinal: Normal Bowel Sounds, Non Tender, Soft Extremity: Normal Inspection, Non Tender, No Pedal Edema Neurologic/Psychiatric: Alert, No Motor/Sensory Deficits, Normal Mood/Affect, Disoriented Skin: Normal Color, Warm/Dry Results/Procedures Lab Laboratory Tests 10/01/20 05:49 Patient resulted labs reviewed. Imaging: Reviewed Imaging Report Assessment/Plan Assessment and Plan Assess & Plan/Chief Complaint Acute respiratory failure due to COVID-19 COVID PRANEETH positive Supplemental oxygen as needed Continue Decadron Dementia Delirium Continue Risperdal Haldol as needed for agitation Stop Ativan Reorient as needed UTI Urine culture with E coli, final pending Rocephin Hypokalemia Hypomagnesemia Monitor and replace as needed DVT Prophylaxis: Lovenox Diarrhea due to COVID-19, resolved Diagnosis/Problems Diagnosis/Problems (1) Acute respiratory failure due to COVID-19 Status: Acute (2) COVID-19 Status: Acute (3) Diarrhea due to COVID-19 Status: Resolved Resolution Date/Time: 09/28/20 @ 15:04 (4) Delirium Status: Acute Clinical Quality Measures DVT/VTE Risk/Contraindication: Risk Factor Score Per Nursin RFS Level Per Nursing on Admit: 4+=Very High MARCO A CÁRDENAS MD Oct 01, 2020 14:47
--- NOTE | 2020-10-01 15:24 | NUR ---
CM/SS visited with the patient for discharge planning. CM/SS visited with the patient's son Jhony to discuss discharge planning. He was pleasant and willing. Home: The patient lives in an apartment complex alone but her son lives in the same apartment complex. He reports that he does all of her cooking, cleaning, and laundry. Jhony reports that the patient is able to walk with a walker but she goes very slow due to her knees. She is still able to complete stairs at this time. Jhony reports that she will still do some of her own laundry and dishes still. However, he has noticed that in the last year she's became weaker. Home Health: Denies having in the past but was using outpatient PT at the beginning of the pandemic. Jhony's main goal is to get patient home with him being there for 24' 7 care and having home health to work on strength. He understands that the patient may require too much care to return home and allowed this sw to send a senior living referral. Equipment: The patient wears oxygen nocturnally at baseline. She is currently needing 4L. SNF: CM/SS faxed a referral to [facility] for a possible skilled referral. CM/SS contacted Luis Enrique to inform her of plan and faxed referral. Await acceptance/denial.
[2020-10-01] MEDS: cefTRIAXone FOR IV USE 1,000 MG in WATER (STERILE) FOR INJECTION 10 ML IV SCH (15:40)
[2020-10-01 15:41] VITALS: BP 181/84
--- NOTE | 2020-10-01 16:13 | NUR ---
BLADDER SCAN 24ML SINCE LEDESMA REMOVED, DR CÁRDENAS NOTIFIED AND ORDER GIVEN TO INCREASE RATE TO 125ML HOUR
--- NOTE | 2020-10-01 17:55 | NUR ---
VOIDED 100 ML URINE SINCE LEDESMA REMOVED
[2020-10-01] MEDS: rOPINIRole 1 MG (REQUIP) TABLET PO SCH (19:50)
[2020-10-01] MEDS: HALOPERIDOL 5 MG/ML (HALDOL) VIAL IM PRN (19:50)
[2020-10-01 23:44] VITALS: BP 173/89
[2020-10-02] MEDS: LACTATED RINGERS 1,000 ML IV SCH ×3 (00:01→17:29)
[2020-10-02 05:28] LABS: BASOPHILS % (AUTO) 0 % (0-10); EOSINOPHILS # (AUTO) 0.1 10^3/uL (0.0-0.3); EOSINOPHILS % (AUTO) 1 % (0-10); HEMATOCRIT 36 % (35-52); HEMOGLOBIN 11.6 g/dL (11.5-16.0); LYMPHOCYTES # (AUTO) 0.7 10^3/uL (1.0-4.0); LYMPHOCYTES % (AUTO) 10 % (12-44); MEAN CORPUSCULAR HEMOGLOBIN 30 pg (25-34); MEAN CORPUSCULAR HGB CONC 33 g/dL (32-36); MEAN CORPUSCULAR VOLUME 91 fL (80-99); MEAN PLATELET VOLUME 11.5 fL (9.0-12.2); MONOCYTES # (AUTO) 0.5 10^3/uL (0.0-1.0); MONOCYTES % (AUTO) 7 % (0-12); NEUTROPHILS # (AUTO) 6.1 10^3/uL (1.8-7.8); NEUTROPHILS % (AUTO) 82 % (42-75); PLATELET COUNT 281 10^3/uL (130-400); WHITE BLOOD COUNT 7.5 10^3/uL (4.3-11.0)
[2020-10-02 05:38] LABS: CHLORIDE 106 MMOL/L (98-107); POTASSIUM 3.4 MMOL/L (3.6-5.0); SODIUM 140 MMOL/L (135-145)
[2020-10-02 05:40] LABS: CALCIUM 8.8 MG/DL (8.5-10.1); GLUCOSE 116 MG/DL (70-105)
[2020-10-02 05:41] LABS: CARBON DIOXIDE 23 MMOL/L (21-32)
[2020-10-02 05:42] LABS: INR 1.3 (0.8-1.4); PROTHROMBIN TIME PATIENT 16.7 SEC (12.2-14.7)
[2020-10-02 05:44] LABS: CREATININE SERUM 0.57 MG/DL (0.60-1.30); GFR ESTIMATED > 60
[2020-10-02 05:45] LABS: BUN/CREATININE RATIO 16
[2020-10-02 05:46] LABS: MAGNESIUM 1.8 MG/DL (1.6-2.4)
[2020-10-02] MEDS: RT-ALBUTEROL INHALER HFA (VENTOLIN HFA) 18 GM IH SCH ×2 (07:23→21:45)
[2020-10-02 08:00] VITALS: BP 165/80
[2020-10-02] MEDS: MONTELUKAST 10 MG (SINGULAIR) TAB PO SCH (09:10)
[2020-10-02] MEDS: risperiDONE 1 MG (RisperDAL) TAB PO SCH ×2 (09:10→21:46)
[2020-10-02] MEDS: MELOXICAM 7.5 MG (MOBIC) TABLET PO SCH (09:11)
[2020-10-02] MEDS: VERAPAMIL SR 240 MG (CALAN SR) TAB PO SCH (09:11)
[2020-10-02] MEDS: ATENOLOL 50 MG (TENORMIN) TAB PO SCH ×2 (09:11→21:46)
--- NOTE | 2020-10-02 09:30 | NUR ---
PT ANSWERS QUESTIONS APPROPRIATELY THIS AM. PT CONTINUES TO TAKE OFF [address] CÁRDENAS NOTIFIED OF SYSTOLIC BLOOD PRESSURES 170-180'S
--- NOTE | 2020-10-02 11:56 | Progress Note - Hospitalist ---
Subjective HPI/CC On Admission Date Seen by Provider: Oct 02, 2020 Time Seen by Provider: 10:10 Citlaly Salazar is a 80 year old female who presented with diarrhea. She has been having fevers and cough for about a week. She is unable to provide history due to her current clinical condition. She has been delirious and has a sitter at her bedside. She recently received a dose of Ativan and is unable to provide any history. Per nursing, the son reported that she has had some memory issues but takes care of herself for the most part at home. Subjective/Events-last exam she is feeling a little better today. She is a still slightly confused. She denies any pain. She denies any shortness of breath. Objective Exam Vital Signs Vital Signs Date Time Temp Pulse Resp B/P (MAP) Pulse Ox O2 Delivery O2 Flow Rate FiO2 10/02/20 09:09 60 95 Nasal Cannula 2.00 10/02/20 08:00 36.7 22 165/80 (108) 09/28/20 21:26 90 Capillary Refill : Less Than 3 Seconds General Appearance: No Apparent Distress, Chronically ill Respiratory: Lungs Clear, Normal Breath Sounds, No Respiratory Distress Cardiovascular: Regular Rate, Rhythm, No Edema, No Murmur Gastrointestinal: Normal Bowel Sounds, Non Tender, Soft Extremity: Normal Inspection, Non Tender, No Pedal Edema Neurologic/Psychiatric: Alert, Normal Mood/Affect, Disoriented, Motor Weakness Skin: Normal Color, Warm/Dry Results/Procedures Lab Laboratory Tests 10/02/20 05:15 Patient resulted labs reviewed. Imaging: Reviewed Imaging Report Assessment/Plan Assessment and Plan Assess & Plan/Chief Complaint Acute respiratory failure due to COVID-19 COVID PRANEETH positive Supplemental oxygen as needed Continue Decadron Dementia Delirium Improving Decrease Risperdal Haldol as needed for agitation Reorient as needed ESBL E coli UTI with hematuria Urine culture with ESBL E coli Stop Rocephin Transition to Macrobid AFib Coumadin resumed Hypokalemia Hypomagnesemia Monitor and replace as needed DVT Prophylaxis: Lovenox Diarrhea due to COVID-19, resolved Diagnosis/Problems Diagnosis/Problems (1) Acute respiratory failure due to COVID-19 Status: Acute (2) COVID-19 Status: Acute (3) UTI due to extended-spectrum beta lactamase (ESBL) producing Escherichia coli Status: Acute (4) Delirium Status: Acute (5) On Coumadin for atrial fibrillation Status: Chronic (6) Diarrhea due to COVID-19 Status: Resolved Resolution Date/Time: 09/28/20 @ 15:04 Clinical Quality Measures DVT/VTE Risk/Contraindication: Risk Factor Score Per Nursin RFS Level Per Nursing on Admit: 4+=Very High MARCO A CÁRDENAS MD Oct 02, 2020 11:56
[2020-10-02] MEDS ORDERED: NITROFURANTOIN 100 MG (MACROBID) CAPSULE PO NR (12:00)
--- NOTE | 2020-10-02 12:54 | Physical Therapy Evaluation ---
PT Evaluation-General Medical Diagnosis Admission Date Sep 28, 2020 at 13:26 Medical Diagnosis: COVID+, dehydratio, delirium Onset Date: Sep 26, 2020 Therapy Diagnosis Therapy Diagnosis: debility Height/Weight Height (Feet): 5 Height (Inches): 4.00 Weight (Pounds): 182 Weight (Ounces): 0.6 Precautions Precautions/Isolations: Contact Isolation, Droplet Isolation, Fall Prevention, Pressure Ulcer Weight Bear Status Right Lower Extremity: Right Full Weight Bearing Left Lower Extremity: Left Full Weight Bearing Referral Physician: Dr. Calix Reason for Referral: Evaluation/Treatment Medical History Pertinent Medical History: Atrial Fib, Arthritis, HTN Additional Medical History high cholesterol, chronic back pain, glaucoma, anxiety Current History Presents to diarrhea, delirium, COVID+ Reviewed History: Yes Social History Home: Apartment Current Living Status: Children Prior Prior Level of Function SCALE: Activities may be completed with or without assistive devices. 9-Filvltjimp-sqyuoim completes the activity by him/herself with no assistance from a helper. 5-Set-up or Clean-up Assistance-helper sets up or cleans up; patient completes activity. [place] assists only prior to or following the activity. 4-Supervision or Touching Assistance-helper provides verbal cues and/or touching/steadying and/or contact guard assistance as patient completes activity. Assistance may be provided throughout the activity or intermittently. 3-Partial/Moderate Assistance-helper does LESS THAN HALF the effort. [place] lifts, holds or supports trunk or limbs, but provides less than half the effort. 2-Substantial/Maximal Assistance-helper does MORE THAN HALF the effort. [place] lifts or holds trunk or limbs and provides more than half the effort. 8-Ffpwoztvo-jxufcq does ALL the effort. Patient does none of the effort to complete the activity. Or, the assistance of 2 or more helpers is required for the patient to complete the activity. If activity was not attempted, code reason: 7-Patient Refused. 9-Not Applicable-not attempted and the patient did not perform the activity before the current illness, exacerbation or injury. 10-Not Attempted due to Environmental Limitations-(lack of equipment, weather restraints, etc.). 88-Not Attempted due to Medical Conditions or Safety Concerns. Bed Mobility: 6 Transfers (B,C,W/C): 6 Gait: 6 PT Evaluation-Current Subjective Pt. states she is "cold." Would like to return to bed, states she has "bad knees" and uses a walker at home. Objective Patient Orientation: Person, Confused Attachments: Oxygen, IV ROM/Strength ROM Upper Extremities WFL ROM Lower Extremities Decreased (B) Strength Upper Extremities Grossly 3/5 Strength Lower Extremities Grossly 3/5 Integumentary/Posture Integumentary see nursing notes Bowel Incontinence: No Bladder Incontinence: Yes Posture flexed at hips Neuromuscular (Tone, Coordination, Reflexes) diminished Sensory Vision: Wears Glasses Hearing: Functional Transfers Roll Left to Right (QC): 2 Sit to Lying (QC): 1 Sit to Stand (QC): 1 Chair/Lmc-xu-Oqbyb Xfer(QC): 1 max A x 2 for all transfers Gait Does the Patient Walk?: No and Walking Goal IS indicated Balance Sitting Static: Good Sitting Dynamic: Fair Standing Static: Poor Standing Dynamic: Poor Assessment/Needs Pt. is a 80 y.o. female who presents with debility. Pt. is currently dependent for all transfers and unable to ambulate. She has difficulty following commands for transfers. Pt. would benefit from skilled PT to improve mobility and strength for return home with son. Rehab Potential: Poor PT Care Home Goals Care Home Goals PT Care Home Goals Time Frame: Oct 16, 2020 Roll Left & Right (QC): 3 Sit to Lying (QC): 3 Lying-Sitting on Side/Bed(QC): 3 Sit to Stand (QC): 3 Chair/Ceu-ax-Xbqic Xfer(QC): 3 Walk 10 feet (QC): 3 PT Plan Problem List Problem List: Activity Tolerance, Functional Strength, Safety, Balance, Gait, Transfer, Bed Mobility, ROM Treatment/Plan Treatment Plan: Continue Plan of Care Treatment Plan: Bed Mobility, Concurrent Therapy, Education, Functional Activity Katherine, Functional Strength, Gait, Safety, Therapeutic Exercise, Transfers Treatment Duration: Oct 16, 2020 Frequency: 6 times per week Estimated Hrs Per Day: .25 hour per day Patient and/or Family Agrees t: Yes Time/GCodes Time In: 1230 Time Out: 1241 Total Billed Treatment Time: 11 Total Billed Treatment 1, [facility] 11' INO PATE PT Oct 02, 2020 12:54
[2020-10-02 15:07] VITALS: BP 162/90
[2020-10-02] MEDS ORDERED: warFARin 1 MG (COUMADIN) TAB ONE (17:18)
[2020-10-02] MEDS ORDERED: warFARin 2.5 MG (COUMADIN) TAB ONE (17:18)
[2020-10-02] MEDS: warFARin 1 MG (COUMADIN) TAB PO SCH (17:26)
[2020-10-02] MEDS: warFARin 2.5 MG (COUMADIN) TAB PO SCH (17:26)
[2020-10-02 19:51] VITALS: BP 168/90
[2020-10-02] MEDS: rOPINIRole 1 MG (REQUIP) TABLET PO SCH (21:46)
[2020-10-02] MEDS: NITROFURANTOIN 100 MG (MACROBID) CAPSULE PO SCH (21:46)
[2020-10-02 23:35] VITALS: BP_SYST 178; BP_SYST 98; BP_DIAS 71; BP_DIAS 91
[2020-10-03] MEDS: ACETAMINOPHEN 325 MG TABLET PO PRN ×2 (00:56→08:45)
[2020-10-03 06:46] LABS: CHLORIDE 105 MMOL/L (98-107); POTASSIUM 3.3 MMOL/L (3.6-5.0); SODIUM 141 MMOL/L (135-145)
[2020-10-03 06:47] LABS: CALCIUM 8.9 MG/DL (8.5-10.1)
[2020-10-03 06:48] LABS: GLUCOSE 103 MG/DL (70-105); INR 1.4 (0.8-1.4); PROTHROMBIN TIME PATIENT 17.2 SEC (12.2-14.7)
[2020-10-03 06:49] LABS: CARBON DIOXIDE 26 MMOL/L (21-32)
[2020-10-03 06:52] LABS: BUN/CREATININE RATIO 16; CREATININE SERUM 0.58 MG/DL (0.60-1.30); GFR ESTIMATED > 60
[2020-10-03 06:54] LABS: MAGNESIUM 1.9 MG/DL (1.6-2.4)
[2020-10-03] MEDS: RT-ALBUTEROL INHALER HFA (VENTOLIN HFA) 18 GM IH SCH ×2 (07:16→19:51)
[2020-10-03 07:59] VITALS: BP 176/70
[2020-10-03] MEDS: VERAPAMIL SR 240 MG (CALAN SR) TAB PO SCH (08:44)
[2020-10-03] MEDS: MONTELUKAST 10 MG (SINGULAIR) TAB PO SCH (08:44)
[2020-10-03] MEDS: NITROFURANTOIN 100 MG (MACROBID) CAPSULE PO SCH ×2 (08:45→20:51)
[2020-10-03] MEDS: ATENOLOL 50 MG (TENORMIN) TAB PO SCH ×2 (08:45→20:51)
[2020-10-03] MEDS: MELOXICAM 7.5 MG (MOBIC) TABLET PO SCH (08:45)
[2020-10-03] MEDS: risperiDONE 1 MG (RisperDAL) TAB PO SCH ×2 (08:45→20:51)
[2020-10-03 10:40] VITALS: BP 158/75
[2020-10-03] MEDS ORDERED: lisINopril 40 MG (PRINIVIL) TABLET PO NR (14:00)
--- NOTE | 2020-10-03 14:02 | Progress Note - Hospitalist ---
Subjective HPI/CC On Admission Date Seen by Provider: Oct 03, 2020 Time Seen by Provider: 11:20 Citlaly Salazar is a 80 year old female who presented with diarrhea. She has been having fevers and cough for about a week. She is unable to provide history due to her current clinical condition. She has been delirious and has a sitter at her bedside. She recently received a dose of Ativan and is unable to provide any history. Per nursing, the son reported that she has had some memory issues but takes care of herself for the most part at home. Subjective/Events-last exam She remains confused. She denies any pain. She denies any trouble breathing. She has no complaints. Objective Exam Vital Signs Vital Signs Date Time Temp Pulse Resp B/P (MAP) Pulse Ox O2 Delivery O2 Flow Rate FiO2 10/03/20 10:40 158/75 (102) 10/03/20 08:00 Nasal Cannula 2.00 10/03/20 07:59 36.6 63 22 99 09/28/20 21:26 90 Capillary Refill : Less Than 3 Seconds General Appearance: No Apparent Distress, Chronically ill Respiratory: Lungs Clear, Normal Breath Sounds, No Respiratory Distress Cardiovascular: Regular Rate, Rhythm, No Edema, No Murmur Gastrointestinal: Normal Bowel Sounds, Non Tender, Soft Extremity: Normal Inspection, Non Tender, No Pedal Edema Neurologic/Psychiatric: Alert, Disoriented, Motor Weakness Skin: Normal Color, Warm/Dry Results/Procedures Lab Laboratory Tests 10/03/20 05:50 Patient resulted labs reviewed. Imaging: Reviewed Imaging Report Assessment/Plan Assessment and Plan Assess & Plan/Chief Complaint Acute respiratory failure due to COVID-19 COVID PRANEETH positive Supplemental oxygen as needed, minimal requirement Continue Decadron Dementia Delirium Continue Risperdal Haldol as needed for agitation Reorient as needed ESBL E coli UTI with hematuria Urine culture with ESBL E coli Continue Macrobid AFib Coumadin INR 1.4, trending up Hypokalemia Hypomagnesemia Monitor and replace as needed Debility PT/OT Likely needs discharge to SNF DVT Prophylaxis: Lovenox Diarrhea due to COVID-19, resolved Diagnosis/Problems Diagnosis/Problems (1) Acute respiratory failure due to COVID-19 Status: Acute (2) COVID-19 Status: Acute (3) UTI due to extended-spectrum beta lactamase (ESBL) producing Escherichia coli Status: Acute (4) Delirium Status: Acute (5) On Coumadin for atrial fibrillation Status: Chronic (6) Diarrhea due to COVID-19 Status: Resolved Resolution Date/Time: 09/28/20 @ 15:04 (7) Debility Status: Acute Clinical Quality Measures DVT/VTE Risk/Contraindication: Risk Factor Score Per Nursin RFS Level Per Nursing on Admit: 4+=Very High MARCO A CÁRDENAS MD Oct 03, 2020 14:02
[2020-10-03 15:41] VITALS: BP 171/81
[2020-10-03] MEDS: warFARin 2.5 MG (COUMADIN) TAB PO SCH (17:53)
[2020-10-03] MEDS: warFARin 1 MG (COUMADIN) TAB PO SCH (17:53)
[2020-10-03] MEDS: rOPINIRole 1 MG (REQUIP) TABLET PO SCH (20:51)
[2020-10-03 23:57] VITALS: BP 166/81
[2020-10-04 06:42] LABS: INR 1.6 (0.8-1.4); PROTHROMBIN TIME PATIENT 19.5 SEC (12.2-14.7)
[2020-10-04 06:57] LABS: CHLORIDE 104 MMOL/L (98-107); POTASSIUM 3.3 MMOL/L (3.6-5.0); SODIUM 140 MMOL/L (135-145)
[2020-10-04 06:58] LABS: CALCIUM 8.8 MG/DL (8.5-10.1); GLUCOSE 99 MG/DL (70-105)
[2020-10-04 07:00] LABS: CARBON DIOXIDE 26 MMOL/L (21-32)
[2020-10-04 07:02] LABS: CREATININE SERUM 0.62 MG/DL (0.60-1.30); GFR ESTIMATED > 60
[2020-10-04 07:03] LABS: BUN/CREATININE RATIO 23
[2020-10-04] MEDS: RT-ALBUTEROL INHALER HFA (VENTOLIN HFA) 18 GM IH SCH ×2 (07:09→18:23)
[2020-10-04] MEDS: VERAPAMIL SR 240 MG (CALAN SR) TAB PO SCH (08:04)
[2020-10-04] MEDS: lisINopril 40 MG (PRINIVIL) TABLET PO SCH (08:04)
[2020-10-04] MEDS: risperiDONE 1 MG (RisperDAL) TAB PO SCH ×2 (08:05→19:24)
[2020-10-04] MEDS: MELOXICAM 7.5 MG (MOBIC) TABLET PO SCH (08:05)
[2020-10-04] MEDS: MONTELUKAST 10 MG (SINGULAIR) TAB PO SCH (08:05)
[2020-10-04] MEDS: ATENOLOL 50 MG (TENORMIN) TAB PO SCH ×2 (08:05→19:21)
[2020-10-04] MEDS: NITROFURANTOIN 100 MG (MACROBID) CAPSULE PO SCH ×2 (08:05→19:21)
[2020-10-04 08:19] VITALS: BP 163/77
[2020-10-04] MEDS: ACETAMINOPHEN 325 MG TABLET PO PRN ×2 (08:37→17:53)
--- NOTE | 2020-10-04 09:56 | NUR ---
Patient may come out of COVID isolation. She will need to stay in contact isolation due to ESBL in urine.
--- NOTE | 2020-10-04 10:46 | Physical Therapy Daily Note ---
PT Daily Note-Current Subjective Patient in recliner pre tx, agrees to PT, has no complaints of pain. Appearance Patient in bed post tx with nurse call, phone, tray, bed alarm on, nurse in room. Mental Status Patient Orientation: Person, Place Attachments: Oxygen Transfers SCALE: Activities may be completed with or without assistive devices. 2-Prqfrjimeq-vkscfza completes the activity by him/herself with no assistance from a helper. 5-Set-up or Clean-up Assistance-helper sets up or cleans up; patient completes activity. [place] assists only prior to or following the activity. 4-Supervision or Touching Assistance-helper provides verbal cues and/or touching/steadying and/or contact guard assistance as patient completes activity. Assistance may be provided throughout the activity or intermittently. 3-Partial/Moderate Assistance-helper does LESS THAN HALF the effort. [place] lifts, holds or supports trunk or limbs, but provides less than half the effort. 2-Substantial/Maximal Assistance-helper does MORE THAN HALF the effort. [place] lifts or holds trunk or limbs and provides more than half the effort. 9-Pwwcwrqye-zguvrd does ALL the effort. Patient does none of the effort to complete the activity. Or, the assistance of 2 or more helpers is required for the patient to complete the activity. If activity was not attempted, code reason: 7-Patient Refused. 9-Not Applicable-not attempted and the patient did not perform the activity before the current illness, exacerbation or injury. 10-Not Attempted due to Environmental Limitations-(lack of equipment, weather restraints, etc.). 88-Not Attempted due to Medical Conditions or Safety Concerns. Roll Left & Right (QC): 1 Sit to Lying (QC): 1 Sit to Stand (QC): 1 Chair/Jkk-hs-Curua Xfer(QC): 1 Attempted to stand twice with cues for correct positioning but she was not able. Had to perform a dependent stand pivot transfer back to bed from recliner and then lay down (also dependent). Weight Bearing Right Lower Extremity: Right Full Weight Bearing Left Lower Extremity: Left Full Weight Bearing Treatments transfers, bed mobility Assessment Current Status: Poor Progress Patient totally dependent for functional mobility today PT Detention Goals Detention Goals PT Regional Account Manager Goals Time Frame: Oct 16, 2020 Roll Left & Right (QC): 3 Sit to Lying (QC): 3 Lying-Sitting on Side/Bed(QC): 3 Sit to Stand (QC): 3 Chair/Fvy-gc-Lmhwr Xfer(QC): 3 Walk 10 feet (QC): 3 PT Plan Problem List Problem List: Activity Tolerance, Functional Strength, Safety, Balance, Gait, Transfer, Bed Mobility, ROM Treatment/Plan Treatment Plan: Continue Plan of Care Treatment Plan: Bed Mobility, Concurrent Therapy, Education, Functional Activity Katherine, Functional Strength, Gait, Safety, Therapeutic Exercise, Transfers Treatment Duration: Oct 16, 2020 Frequency: 6 times per week Estimated Hrs Per Day: .25 hour per day Patient and/or Family Agrees t: Yes Safety Risks/Education Patient Education: Transfer Techniques, Correct Positioning, Safety Issues Teaching Recipient: Patient Teaching Methods: Demonstration, Discussion Response to Teaching: Reinforcement Needed Time/GCodes Time In: 1005 Time Out: 1017 Total Billed Treatment Time: 12 Total Billed Treatment 1 visit FA 12' JOSIE HAWKINS PT Oct 04, 2020 10:46
--- NOTE | 2020-10-04 12:47 | Progress Note ---
Subjective Subjective Date Seen by Provider: Oct 04, 2020 Time Seen by Provider: 12:46 Continues to improve. Still confused but she is on respirdal which will be d/c on discharge to SNU. Pt reports she would like to go home and not to the SNU, but after we talked she voiced understanding that she would go to get stronger and increase her chances of going home safely. Review of Systems General: No Chills, No Night Sweats HEENT: No Head Aches Pulmonary: No Dyspnea, No Cough Cardiovascular: No: Chest Pain Gastrointestinal: No: Nausea, Vomiting Genitourinary: No Dysuria Musculoskeletal: other (knee pain (both)) Neurological: Weakness, Confusion All Other Systems Reviewed All Other Systems Reviewed: Yes Objective Exam Vital Signs Vital Signs Date Time Temp Pulse Resp B/P (MAP) Pulse Ox O2 Delivery O2 Flow Rate FiO2 10/04/20 08:19 36.2 61 18 163/77 (105) 95 Nasal Cannula 1.50 10/04/20 08:00 Nasal Cannula 1.00 10/04/20 07:10 96 Nasal Cannula 1.00 10/03/20 23:57 36.6 60 22 166/81 (109) 98 Nasal Cannula 1.00 10/03/20 20:51 Nasal Cannula 0.50 10/03/20 19:51 97 Nasal Cannula 2.00 10/03/20 15:41 36.7 61 22 171/81 (111) 95 Nasal Cannula 1.00 I & O 10/04/20 07:00 Intake Total 960 ml Output Total 700 ml Balance 260 ml General Appearance: No Apparent Distress, Chronically ill Neck: Non Tender Respiratory: Lungs Clear, Normal Breath Sounds, No Respiratory Distress Cardiovascular: Regular Rate, Rhythm, No Edema, Systolic Murmur (grade III/) Gastrointestinal: Normal Bowel Sounds, Non Tender, Soft Rectal: Deferred Extremity: Normal Inspection, Non Tender, No Pedal Edema Neurologic/Psychiatric: Alert, Oriented x3, Disoriented, Motor Weakness Skin: Normal Color, Warm/Dry Results Lab Laboratory Tests 10/04/20 06:13: Prothrombin Time 19.5H, INR Comment 1.6H, Sodium Level 140, Potassium Level 3.3L , Chloride Level 104, Carbon Dioxide Level 26, Anion Gap 10, Blood Urea Nitrogen 14, Creatinine 0.62, Estimat Glomerular Filtration Rate > 60, BUN/Creatinine Ratio 23, Glucose Level 99, Calcium Level 8.8, Magnesium Level 2.0 Microbiology 09/30/20 Urine Culture - Final, Complete Escherichia coli 09/26/20 Blood Culture - Final, Complete No growth 09/26/20 Influenza Types A,B Antigen (JULIA) - Final, Complete Assessment/Plan Assessment/Plan Assessment and Plan 10/04/20- on 1L oxygen -confusion still present but improving- multfactorial- COVID- alone in her hospital room, on respirdal, age, etc. -plan to discharge to SNU tomorrow. -She will need oxygen. She will complete macrobid on 10/07/20. Problems: (1) Acute respiratory failure due to COVID-19 Assessment & Plan: improving (2) COVID-19 (3) UTI due to extended-spectrum beta lactamase (ESBL) producing Escherichia coli (4) Delirium (5) On Coumadin for atrial fibrillation (6) Diarrhea due to COVID-19 Assessment & Plan: resolved (7) Debility (8) Hypokalemia Assessment & Plan: replacing Clinical Quality Measures DVT/VTE Risk/Contraindication: Risk Factor Score Per Nursin RFS Level Per Nursing on Admit: 4+=Very High JUSTIN JOHNSON MD Oct 04, 2020 12:47
--- NOTE | 2020-10-04 12:47 | NUR ---
CM/SS follow up. Plan: At time of discharge, the patient will need a long term home facility. CM/SS contacted the patient's son Jhony to discuss discharge plans. CM/SS provided an update regarding physical therapy and the patient's current physical needs. Jhony verbalized understanding and agrees that she will need a long term home placement. Jhony reports he is happy Dr. Boudreaux will be the physician taking over due to him knowing her baseline. Jhony stated he is concerned that she had a stroke due to her speech being different from baseline. VCV: CM/SS spoke with Lucy at the [facility] to discuss skilled referral that was sent on Sunday. CM/SS informed her that the patient will need skilled placement. Lucy received insurance approval. This approval will be good for 3 days. CM/SS reached out to physician to discuss when patient will be medically ready for discharge. Physician states possibly tomorrow. CM/SS will continue to follow for discharge planning.
--- NOTE | 2020-10-04 14:18 | NUR ---
PATIENT C/O KNEES HURTING, REQUESTED ERWIN, DR JOHNSON NOTIFIED AND ORDER GIVEN FOR VOLTAREN GEL TO BOTH KNEES, UP IN CHAIR , VOIDED 2OOML TEA COLOR URINE, O2 ON PER NC AT 1 LITER, O2 SAT 95 PERCENT, CALL LIGHT WITHIN REACH. ASSISTED WITH MEALS, WILL NOT FEED SELF,
--- NOTE | 2020-10-04 14:29 | Occupational Therapy Eval ---
OT Evaluation-General/PLF Medical Diagnosis Admission Date Sep 28, 2020 at 13:26 Medical Diagnosis: COVID+, dehydration, delirium Onset Date: Sep 26, 2020 Therapy Diagnosis Therapy Diagnosis: Weakness Height/Weight Height (Feet): 5 Height (Inches): 4.00 Weight (Pounds): 182 Weight (Ounces): 0.6 Precautions Precautions/Isolations: Contact Isolation, Droplet Isolation, Fall Prevention, Pressure Ulcer Weight Bear Status Weight Bearing Restriction: Weight Bearing/Tolerated Referral Physician: Dr. Calix Referral Reason: Activity Tolerance, Self Care, Evaluation/Treatment, Strengthening/ROM Medical History Pertinent Medical History: Atrial Fib, Arthritis, HTN Additional Medical History Delirium, Dementia Current History Pt. is poor historian and is confused. Pt. is unable to state current situation, previous needs or equipment, or pertinent home history/prior ADL skills. Reviewed History: Yes Social History Pt.'s living situation is unknown to this OT at this time. Will assess other documentation. ADL-Prior Level of Function SCALE: Activities may be completed with or without assistive devices. 9-Npwyetcvhm-ccdpadi completes the activity by him/herself with no assistance from a helper. 5-Set-up or Clean-up Assistance-helper sets up or cleans up; patient completes activity. [place] assists only prior to or following the activity. 4-Supervision or Touching Assistance-helper provides verbal cues and/or touching/steadying and/or contact guard assistance as patient completes activity. Assistance may be provided throughout the activity or intermittently. 3-Partial/Moderate Assistance-helper does LESS THAN HALF the effort. [place] lifts, holds or supports trunk or limbs, but provides less than half the effort. 2-Substantial/Maximal Assistance-helper does MORE THAN HALF the effort. [place] lifts or holds trunk or limbs and provides more than half the effort. 7-Zxwuyhmco-ynfvvs does ALL the effort. Patient does none of the effort to complete the activity. Or, the assistance of 2 or more helpers is required for the patient to complete the activity. If activity was not attempted, code reason: 7-Patient Refused. 9-Not Applicable-not attempted and the patient did not perform the activity before the current illness, exacerbation or injury. 10-Not Attempted due to Environmental Limitations-(lack of equipment, weather restraints, etc.). 88-Not Attempted due to Medical Conditions or Safety Concerns. Self Care: Unknown Functional Cognition: Unknown OT Current Status Subjective Pt. is confused and is unable to answer most questions. No pain reported. Current Glasses/Contacts: Yes ADL-Treatment Lower Body Dressing (QC): 1 (Pt's current level of function indicates that she would need significant assist with LE dressing.) On/Off Footwear (QC): 1 Toileting Hygiene (QC): 1 Other Treatments Pt. asleep when OT entered room. OT able to wake pt. up, but pt. does not move body, just opens eyes. When prompted, pt. attempts to answer OT's questions, but is confused and unable to attend. Requests to use the bathroom. Pt. prompts pt. to move LE to side of bed. Pt. requires mod assist for this, but then is able to move to side of bed relatively easily. Pt. is able to sit on side of bed, and continues to request to use bathroom. OT attempts to stand pt. twice, but pt. does not engage LE at all. Pt. transfers back supine with SBA. OT to get bed hernandez but then pt. states that she doesn't have to go anymore. OT checked depend. Depend dry. Bed put into [place] position and moved toward HOB with max assist. OT assisted pt. to side position and positioned with pillows. All needs met. Education OT Patient Education: Correct positioning, Modified ADL techniques, Progress toward Goal/Update tx plan, Purpose of tx/functional activities, Reviewed precautions, Rehab process, Transfer techniques Teaching Recipient: Patient Teaching Methods: Demonstration, Discussion Response to Teaching: Verbalize Understanding, Return Demonstration OT Short Term Goals Short Term Goals Time Frame: Oct 11, 2020 Eatin Oral hygiene: 3 Toileting hygiene: 3 OT Long-Term Goals Technology Recruiter Goals Time Frame: Oct 25, 2020 Eating (QC): 4 Oral Hygiene (QC): 4 Toileting Hygiene (QC): 4 Upper Body Dressing (QC): 3 Additional Goals: 1-Demonstrate ADL Tasks, 2-Verbalize Understanding, 3- ImproveStrength/Katherine 1=Demonstrate adherence to instructed precautions during ADL tasks. 2=Patient will verbalize/demonstrate understanding of assistive devices/modifications for ADL. 3=Patient will improve strength/tolerance for activity to enable patient to perform ADL's. OT Education/Plan Problem List/Assessment Assessment: Decreased Activ Tolerance, Decreased UE Strength, Dependent Transfers, Impaired Bed Mobility, Impaired Cognition, Impaired Funct Balance, Impaired I ADL's, Impaired Self-Care Skills Discharge Recommendations Plan/Recommendations: Continue POC Therapy Discharge Recommendati: 24 Hour Supervision Treatment Plan/Plan of Care Treatment,Training & Education: Yes Patient would benefit from OT for education, treatment and training to promote independence in ADL's, mobility, safety and/or upper extremity function for ADL's. Plan of Care: ADL Retraining, Functional Mobility, UE Funct Exercise/Act Treatment Duration: Oct 25, 2020 Frequency: 5 times per week Estimated Hrs Per Day: .25 hour per day Agreement: Yes Rehab Potential: Guarded Time/GCodes Start Time: 10:55 Stop Time: 11:10 Total Time Billed (hr/min): 15 Billed Treatment Time 1, CAMPBELL MORALEZ OT Oct 04, 2020 14:29
[2020-10-04] MEDS: DICLOFENAC 1% GEL 100 GM (VOLTAREN) TUBE TOP SCH ×2 (14:51→19:22)
--- NOTE | 2020-10-04 15:26 | NUR ---
"RD ASSESSMENT PMHx: COPD; afib; hypercholesterolemia; HTN; chronic constipation; PT INTERACTION: Note pt is currently in COVID isolation, per chart review. Note all diet information for nutrition follow-up is per Andree HEWITT, or per chart review. Andree states current appetite appears poor. Note avg PO intake 25-50% x4d, per chart review. Andree states no issues with nausea, vomiting, constipation or diarrhea since last assessment. Note last BM was 10/02, and pt not currently on bowel regimen per chart review. Est. kcal needs: 0731-5780 kcal | 20-25 kcal/kg Est. Pro needs: 62-78 g Pro | 0.8-1.0 g Pro/kg PES STATEMENT: Inadequate oral intake (NI-2.1) related to loss of appetite, as evidenced by chart review, and avg PO intake 25-50% x4d. INTERVENTION: Continue with current diet order of DYS3 Advanced/Ground Meat diet, with modifier of 2000mg Na restriction. Add Ensure Enlive (vary) to meals TID, for increased kcal intake. Provides 350 kcal and 20 g Pro per serving. Will continue to follow and reassess as pt needs, intake, and status change. Jonathan LOPEZ, MS RD LD [phone] cell"
[2020-10-04 15:46] VITALS: BP 159/74
[2020-10-04] MEDS: warFARin 1 MG (COUMADIN) TAB PO SCH (17:53)
[2020-10-04] MEDS: warFARin 2.5 MG (COUMADIN) TAB PO SCH (17:53)
[2020-10-04] MEDS: rOPINIRole 1 MG (REQUIP) TABLET PO SCH (19:21)
[2020-10-04 23:50] VITALS: BP 148/73
[2020-10-05 06:03] LABS: CHLORIDE 102 MMOL/L (98-107); POTASSIUM 3.4 MMOL/L (3.6-5.0); SODIUM 138 MMOL/L (135-145)
[2020-10-05 06:04] LABS: CALCIUM 8.9 MG/DL (8.5-10.1); GLUCOSE 99 MG/DL (70-105)
[2020-10-05 06:06] LABS: CARBON DIOXIDE 27 MMOL/L (21-32); PROTHROMBIN TIME PATIENT 22.8 SEC (12.2-14.7)
[2020-10-05 06:08] LABS: CREATININE SERUM 0.68 MG/DL (0.60-1.30); GFR ESTIMATED > 60
[2020-10-05 06:09] LABS: BUN/CREATININE RATIO 22
[2020-10-05 06:10] LABS: MAGNESIUM 2.1 MG/DL (1.6-2.4)
--- NOTE | 2020-10-05 07:29 | Progress Note - Urology ---
Progress Note-Urology Progress Notes/Assess & Plan Progress/Assessment & Plan DARK URINE , NO GROSS HEMATURIA. HOME TODAY. WE WILL SEE HER IN 3 WEEKS AT THE OFFICE AND PLAN CT AND CYSTOSCOPY Final Diagnosis GROSS HEMATURIA ELZBIETA MELCHOR MD Oct 05, 2020 07:29
[2020-10-05] MEDS: RT-ALBUTEROL INHALER HFA (VENTOLIN HFA) 18 GM IH SCH (07:36)
[2020-10-05 08:00] VITALS: BP 164/79
[2020-10-05] MEDS: risperiDONE 1 MG (RisperDAL) TAB PO SCH (08:35)
[2020-10-05] MEDS: NITROFURANTOIN 100 MG (MACROBID) CAPSULE PO SCH (08:35)
[2020-10-05] MEDS: DICLOFENAC 1% GEL 100 GM (VOLTAREN) TUBE TOP SCH ×2 (08:36→14:06)
[2020-10-05] MEDS: MELOXICAM 7.5 MG (MOBIC) TABLET PO SCH (08:36)
[2020-10-05] MEDS: MONTELUKAST 10 MG (SINGULAIR) TAB PO SCH (08:36)
[2020-10-05] MEDS: VERAPAMIL SR 240 MG (CALAN SR) TAB PO SCH (08:36)
[2020-10-05] MEDS: lisINopril 40 MG (PRINIVIL) TABLET PO SCH (08:36)
[2020-10-05] MEDS: ATENOLOL 50 MG (TENORMIN) TAB PO SCH (08:36)
[2020-10-05] MEDS ORDERED: KCL 20 MEQ TAB (K-DUR) PO ONE (08:45)
[2020-10-05] MEDS ORDERED: KCL 20 MEQ TAB (K-DUR) PO SCH (10:00)
--- NOTE | 2020-10-05 10:07 | Physical Therapy Daily Note ---
PT Daily Note-Current Subjective Patient in recliner pre tx, agrees to PT, has no complaints of pain. Appearance Patient in recliner post tx with nurse call, phone, tray, legs elevated, all needs met, telesitter in room. Mental Status Patient Orientation: Person, Confused Attachments: Oxygen Transfers SCALE: Activities may be completed with or without assistive devices. 4-Uwvhxqiatd-yygotoe completes the activity by him/herself with no assistance from a helper. 5-Set-up or Clean-up Assistance-helper sets up or cleans up; patient completes activity. [place] assists only prior to or following the activity. 4-Supervision or Touching Assistance-helper provides verbal cues and/or touching/steadying and/or contact guard assistance as patient completes activity. Assistance may be provided throughout the activity or intermittently. 3-Partial/Moderate Assistance-helper does LESS THAN HALF the effort. [place] lifts, holds or supports trunk or limbs, but provides less than half the effort. 2-Substantial/Maximal Assistance-helper does MORE THAN HALF the effort. [place] lifts or holds trunk or limbs and provides more than half the effort. 0-Yohfinzdq-pvubml does ALL the effort. Patient does none of the effort to complete the activity. Or, the assistance of 2 or more helpers is required for the patient to complete the activity. If activity was not attempted, code reason: 7-Patient Refused. 9-Not Applicable-not attempted and the patient did not perform the activity before the current illness, exacerbation or injury. 10-Not Attempted due to Environmental Limitations-(lack of equipment, weather restraints, etc.). 88-Not Attempted due to Medical Conditions or Safety Concerns. Sit to Stand (QC): 2 patient stood x3 with max assist, cues every time for hand placement and positioning, has a lot of knee crepitus Weight Bearing Right Lower Extremity: Right Full Weight Bearing Left Lower Extremity: Left Full Weight Bearing Treatments standing, sit to stand Assessment Current Status: Fair Progress improved standing from yesterday PT Associate Art Director Goals Detention Goals PT Detention Goals Time Frame: Oct 16, 2020 Roll Left & Right (QC): 3 Sit to Lying (QC): 3 Lying-Sitting on Side/Bed(QC): 3 Sit to Stand (QC): 3 Chair/Lxf-ok-Szbnm Xfer(QC): 3 Walk 10 feet (QC): 3 PT Plan Problem List Problem List: Activity Tolerance, Functional Strength, Safety, Balance, Gait, Transfer, Bed Mobility, ROM Treatment/Plan Treatment Plan: Continue Plan of Care Treatment Plan: Bed Mobility, Concurrent Therapy, Education, Functional Activity Katherine, Functional Strength, Gait, Safety, Therapeutic Exercise, Transfers Treatment Duration: Oct 16, 2020 Frequency: 6 times per week Estimated Hrs Per Day: .25 hour per day Patient and/or Family Agrees t: Yes Safety Risks/Education Patient Education: Correct Positioning, Safety Issues Teaching Recipient: Patient Teaching Methods: Demonstration, Discussion Response to Teaching: Reinforcement Needed Time/GCodes Time In: 927 Time Out: 938 Total Billed Treatment Time: 11 Total Billed Treatment 1 visit FA Leatha' JOSIE HAWKINS PT Oct 05, 2020 10:07
--- NOTE | 2020-10-05 10:35 | Occupational Ther Daily Note ---
OT Current Status-Daily Note Subjective Pt seated in recliner, agreeable to OT tx. Telesitter present Mental Status/Objective Patient Orientation: Person, Confused Attachments: Oxygen (1L) ADL-Treatment Therapy Code Descriptions/Definitions Functional [place] Measure: 0=Not Assessed/NA 4=Minimal Assistance 1=Total Assistance 5=Supervision or Setup 2=Maximal Assistance 6=Modified [place] 3=Moderate Assistance 7=Complete IndependenceSCALE: Activities may be completed with or without assistive devices. 5-Vzxikidsvl-iflwksg completes the activity by him/herself with no assistance from a helper. 5-Set-up or Clean-up Assistance-helper sets up or cleans up; patient completes activity. [place] assists only prior to or following the activity. 4-Supervision or Touching Assistance-helper provides verbal cues and/or touching/steadying and/or contact guard assistance as patient completes activity. Assistance may be provided throughout the activity or intermittently. 3-Partial/Moderate Assistance-helper does LESS THAN HALF the effort. [place] lifts, holds or supports trunk or limbs, but provides less than half the effort. 2-Substantial/Maximal Assistance-helper does MORE THAN HALF the effort. [place] lifts or holds trunk or limbs and provides more than half the effort. 3-Rcxzfztdx-iyltfd does ALL the effort. Patient does none of the effort to complete the activity. Or, the assistance of 2 or more helpers is required for the patient to complete the activity. If activity was not attempted, code reason: 7-Patient Refused. 9-Not Applicable-not attempted and the patient did not perform the activity before the current illness, exacerbation or injury. 10-Not Attempted due to Environmental Limitations-(lack of equipment, weather restraints, etc.). 88-Not Attempted due to Medical Conditions or Safety Concerns. Other Treatment Pt seated in recliner, completed x3 sit to stands, max A in order to increase UE strength/endurance and to increase functional transfers. Pt required skilled cues for hand placement prior to each transfer. Post tx, pt seated in recliner, call light in reach and all needs met, telesitter present. Education OT Patient Education: Correct positioning, Progress toward Goal/Update tx plan, Purpose of tx/functional activities, Safety issues, Transfer techniques Teaching Recipient: Patient Teaching Methods: Discussion Response to Teaching: Verbalize Understanding, Reinforcement Needed OT Short Term Goals Short Term Goals Time Frame: Oct 11, 2020 Eatin Oral hygiene: 3 Toileting hygiene: 3 OT Skilled Nursing Goals Real Estate Teacher Goals Time Frame: Oct 25, 2020 Eating (QC): 4 Oral Hygiene (QC): 4 Toileting Hygiene (QC): 4 Upper Body Dressing (QC): 3 Additional Goals: 1-Demonstrate ADL Tasks, 2-Verbalize Understanding, 3- ImproveStrength/Katherine 1=Demonstrate adherence to instructed precautions during ADL tasks. 2=Patient will verbalize/demonstrate understanding of assistive devices/modifications for ADL. 3=Patient will improve strength/tolerance for activity to enable patient to perform ADL's. OT Education/Plan Problem List/Assessment Assessment: Decreased Activ Tolerance, Decreased Safety Aware, Decreased UE Strength, Impaired Funct Balance, Impaired I ADL's, Impaired Self-Care Skills Discharge Recommendations Plan/Recommendations: Follow-up Planned Treatment Plan/Plan of Care Patient would benefit from OT for education, treatment and training to promote independence in ADL's, mobility, safety and/or upper extremity function for ADL's. Plan of Care: ADL Retraining, Functional Mobility, UE Funct Exercise/Act Treatment Duration: Oct 25, 2020 Frequency: 5 times per week Estimated Hrs Per Day: .25 hour per day Agreement: Yes Rehab Potential: Guarded Time/GCodes Start Time: 09:28 Stop Time: 09:39 Total Time Billed (hr/min): 11 Billed Treatment Time 1, FA YANELI JONES OT Oct 05, 2020 10:35
[2020-10-05] MEDS ORDERED: ALBU18HF2 IH (11:09)
[2020-10-05] MEDS ORDERED: NITR100C10 PO (11:09)
--- NOTE | 2020-10-05 11:13 | Discharge Inst-Skilled Nursing ---
Discharge Inst-Skilled NF Reconcile Patient Problems Problems Reviewed?: Yes Patient Instructions Patient Problems: COVID-19- out of quarantine 10/04/2020 ESBL UTI- finishing macrobid 10/08/2020 (added an extra day) atrial fibrillation debility/weakness Consult/Follow Up/Orders Follow Up Appt.: recheck INR 10/07/2020- continue warfarin complete macrobid 10/08/2020 oxgyen via nasal cannula- currently on 1L Nursing/PT/OT. Plan to get patient back to her baseline and get her back home with her son. -Son would like to visit patient so he will need called and updated of protocol. Skilled NF Admit to: [facility] Certification (SNF) I certify that SNF services are required to be given on an inpatient basis because of the above named patient's need for longterm care on a continuing basis for the conditions(s) for which he/she was receiving inpatient hospital services prior to his/her transfer to the SNF. [facility] Facility Order: Nursing Services, Water Filtration Technician-Evaluate & Treat, Physical Therapy-Evaluate & Treat Oxygen Delivery Method: Nasal Cannula (currently on 1L) Discharge Diet: Eat Small Frequent Meals Daily Activity as Tolerated: Yes Resuscitation Status: Full Code New & Resume Previous Orders Jason Johnson Oct 05, 2020 11:09 JASON JOHNSON MD Oct 05, 2020 11:13
--- NOTE | 2020-10-05 11:14 | Discharge Summary ---
Diagnosis/Chief Complaint Date of Admission Sep 28, 2020 at 13:26 Date of Discharge Oct 05, 2020 Discharge Summary Hospital Course Labs Laboratory Tests 10/03/20 05:50: Prothrombin Time 17.2H, Potassium Level 3.3L, Creatinine 0.58L 10/04/20 06:13: Prothrombin Time 19.5H, Potassium Level 3.3L, INR Comment 1.6H 10/05/20 05:44: Prothrombin Time 22.8H, Potassium Level 3.4L, INR Comment 2.0H Procedures None. Discharge Physical Examination Allergies: Coded Allergies: doxycycline (Unverified Allergy, Mild, 11/26/17) Vitals & I&Os Vital Signs Date Time Temp Pulse Resp B/P (MAP) Pulse Ox O2 Delivery O2 Flow Rate FiO2 10/05/20 08:00 36.0 70 22 164/79 (107) 95 Nasal Cannula 1.00 Discharge Home Medications Reviewed and agree with Discharge Medication list on patient's Discharge Instruction sheet Instructions to Patient/Family Please see electronic discharge instructions given to patient. Clinical Quality Measures DVT/VTE Risk/Contraindication: Risk Factor Score Per Nursin RFS Level Per Nursing on Admit: 4+=Very High JUSTIN JOHNSON MD Oct 05, 2020 11:14
--- NOTE | 2020-10-05 13:53 | NUR ---
MARILIA/FARRAH finalized discharge. Plan: Patient will discharge to [facility] today 10/05. computer support specialist instructor time is set for 2:30 p.m. VCV: MARILIA/FARRAH contacted Lucy to set up pick up worker time. MARILIA/SS faxed finalized discharge orders and updated clinical to facility. MARILIA/SS informed them to bring oxygen. MARILIA/FARRAH contacted the patient's son to give an update and inform him of patient's discharge. He verbalized understanding. MARILIA/FARRAH answered questions to best of abilities but directed his questions regarding visitors to the facility. No further needs at this time. Addendum: 10/05/20 at 1447 by MACRINA WHYTE Scripts: EVA received call from Lucy at the [facility]. She reports they need a hard script for the Tramadol. A script was not found in the chart. MARILIA/FARRAH contacted Dr. Boudreaux and requested for the script to be sent to the [facility]. He verbalized that he would. Fax number given.
[2020-10-05 15:00] VITALS: BP 164/79
--- NOTE | 2020-10-05 15:11 | NUR ---
LUCITA ORLANDO discharged to [facility]. Staff notified of discharge and report given. LUCITA ORLANDO belongings sent with patient. Skin dry and intact; no breakdown noted. Vital signs are stable at time of discharge. Condition is stable at time of discharge. Discharge instructions and copies of H&P, discharge summary, physician's order, lab reports, consultation reports, other dictated reports, diagnostic imaging reports, Advance Directive, eMAR, vital signs, intake and output sent with patient and staff. [facility]20 at 1500. LUCITA ORLANDO left floor via wheelchair, accompanied by staff. LUCITA ORLANDO and family/DPOA notified and verbalize understanding of discharge to [facility].
== END 2020-10-05 15:15 | DRG 177 ==
LOC: EDUNIT# 10:36 → ER 10:38 → 4TH 12:50 → UNDOADMOB 12:50 → 4TH 15:00 → INTOOBSV 09-28 13:26 → OBSVTOIN 09-28 13:26 → UNDODISIN 10-05 15:15
PROVIDERS: ADMIT Family Medicine; ATTEND Family Medicine
DX: U07.1 COVID-19 (principal); J96.00 Acute respiratory failure, unspecified whether with hypoxia or hypercapnia; A08.39 Other viral enteritis; F05 Delirium due to known physiological condition; N39.0 Urinary tract infection, site not specified; Z16.12 Extended spectrum beta lactamase (ESBL) resistance; E86.0 Dehydration; I10 Essential (primary) hypertension; E78.00 Pure hypercholesterolemia, unspecified; J44.9 Chronic obstructive pulmonary disease, unspecified; F03.90 Unspecified dementia, unspecified severity, without behavioral disturbance, psychotic disturbance, mood disturbance, and anxiety; E87.6 Hypokalemia; E83.42 Hypomagnesemia; I48.91 Unspecified atrial fibrillation; B96.20 Unspecified Escherichia coli [E. coli] as the cause of diseases classified elsewhere; R31.0 Gross hematuria; G47.30 Sleep apnea, unspecified; M19.91 Primary osteoarthritis, unspecified site; M54.9 Dorsalgia, unspecified; H54.7 Unspecified visual loss; F41.9 Anxiety disorder, unspecified; Z79.01 Long term (current) use of anticoagulants; Z88.1 Allergy status to other antibiotic agents; Z79.2 Long term (current) use of antibiotics; Z79.891 Long term (current) use of opiate analgesic
CPT/HCPCS: 36415; 36600; 51702; 71045; 80048; 80053; 80076; 81000; 81002; 82805; 82962; 83605; 83735; 84100; 84145; 85025; 85379; 85610; 85730; 86141; 87040; 87077; 87088; 87181; 87186; 87635; 87804; 94640; 94760; G0378

== ENCOUNTER 2021-02-14 13:52 | Outpatient (RCR) | payer MEDICARE ==
[~2021-02-14 13:52] MED LIST changes: +ALBU18HF2 IH; +CITA10TA12 PO; +DORZ10DR27 OU; +LATA2.5D19 OU; +MONT10TA32 PO; -MONT10TA97 PO; +NITR100C10 PO; +POTA-51 PO; +PRAV10TA PO; +WARF3TAB56 PO
== END 2021-02-18 15:08 | disposition home or self-care (01) ==
PROVIDERS: ATTEND Family Medicine
DX: M16.0 Bilateral primary osteoarthritis of hip (principal); M17.0 Bilateral primary osteoarthritis of knee

== ENCOUNTER 2021-02-14 23:16 | Emergency (ER) | payer MEDICARE ==
[~2021-02-14] VITALS: Ht 167 cm; Wt 77.6 kg
[2021-02-14 23:33] LABS: BASOPHILS % (AUTO) 0 % (0-10); EOSINOPHILS # (AUTO) 0.8 10^3/uL (0.0-0.3); EOSINOPHILS % (AUTO) 11 % (0-10); HEMATOCRIT 39 % (35-52); HEMOGLOBIN 12.1 g/dL (11.5-16.0); LYMPHOCYTES # (AUTO) 2.7 10^3/uL (1.0-4.0); LYMPHOCYTES % (AUTO) 36 % (12-44); MEAN CORPUSCULAR HEMOGLOBIN 28 pg (25-34); MEAN CORPUSCULAR HGB CONC 31 g/dL (32-36); MEAN CORPUSCULAR VOLUME 91 fL (80-99); MEAN PLATELET VOLUME 11.5 fL (9.0-12.2); MONOCYTES # (AUTO) 0.6 10^3/uL (0.0-1.0); MONOCYTES % (AUTO) 8 % (0-12); NEUTROPHILS # (AUTO) 3.3 10^3/uL (1.8-7.8); NEUTROPHILS % (AUTO) 44 % (42-75); PLATELET COUNT 241 10^3/uL (130-400); WHITE BLOOD COUNT 7.4 10^3/uL (4.3-11.0)
[2021-02-14 23:44] LABS: POTASSIUM 3.7 MMOL/L (3.6-5.0)
[2021-02-14 23:45] LABS: CALCIUM 9.5 MG/DL (8.5-10.1)
[2021-02-14 23:46] LABS: FIBRIN DEGRADATION PRODUCTS 0.89 UG/ML (0.00-0.49); INR 1.3 (0.8-1.4); PROTHROMBIN TIME PATIENT 16.8 SEC (12.2-14.7); TOTAL PROTEIN 6.8 GM/DL (6.4-8.2)
[2021-02-14 23:48] LABS: BILIRUBIN,TOTAL 1.9 MG/DL (0.1-1.0)
[2021-02-14 23:50] LABS: CREATININE SERUM 1.12 MG/DL (0.60-1.30)
[2021-02-14] MEDS: CATHETER FLUSH 10 ML SYR IV PRN (23:54)
[2021-02-15] MEDS ORDERED: HOLD METFORMIN - RECEIVED CONTRAST 20 ML VIAL IV SCH
[2021-02-15] MEDS ORDERED: IOHEXOL 350 MG/ML 100 ML (OMNIPAQUE 350) VIAL IV ONE
[2021-02-15] MEDS ORDERED: NS 100 ML (IVPB) BAG IV ONE
[2021-02-15 00:23] LABS: BILIRUBIN,URINE NEGATIVE (NEGATIVE); CLARITY,URINE CLEAR; COLOR,URINE YELLOW; GLUCOSE, URINE (UA) NEGATIVE (NEGATIVE); KETONES,URINE NEGATIVE (NEGATIVE); LEUKOCYTE ESTERASE ,URINE TRACE (NEGATIVE); NITRITE,URINE NEGATIVE (NEGATIVE); PROTEIN,URINE NEGATIVE (NEGATIVE)
[2021-02-15] MEDS ORDERED: TENECTEPLASE 50 MG VIAL IV ONE (00:30)
[2021-02-15] MEDS ORDERED: RT-ALBUTEROL/IPRATROPIUM 3 ML (DUONEB) VIAL INH ONE (00:30)
[2021-02-15] MEDS: CATHETER FLUSH 10 ML SYR IV PRN (00:44)
[2021-02-15 00:45] LABS: BACTERIA,URINE FEW /HPF
--- NOTE | 2021-02-15 01:00 | ED Neurological Problem ---
General Chief Complaint: Neuro-Stroke Like Symptoms Stated Complaint: POSS STROKE Source: family, EMS, old records Exam Limitations: no limitations History of Present Illness Date Seen by Provider: February 14, 2021 Time Seen by Provider: 23:18 Initial Comments This is 80-year-old woman presents to the emergency room via EMS as a stroke ac tivation from home. Her last known well time was around 22:20 when she was seen by her son. Approximately 30 minutes later he heard her walking to her chair and moaning and groaning. When he checked on her she was sitting in her chair with a flaccid right arm and extreme difficulty speaking. He notes that she is on warfarin with history of an aortic valve pathology. She is presently being assessed for surgical or endovascular therapy to correct this. Her cardiovascular work-up was done at [facility] in [place] according to son. She was to be transitioning from warfarin to Eliquis. She received her Eliquis today but has not taken any doses yet. Son is uncertain if she took her warfarin today. On arrival patient is noted to be aphasic and flaccid in the right arm. She is taken directly to CT. She is noted to be wheezing on exam. At baseline she is able to ambulate independently and able to carry on a conversation. Allergies and Home Medications Allergies Coded Allergies: doxycycline (Unverified Allergy, Mild, 11/26/17) Home Medications Albuterol Sulfate 18 Gm Hfa.aer.ad, 0 GM IH RTQ2H PRN for SOA Prescribed by: JUSTIN JOHNSON on 10/05/20 1109 Amitriptyline HCl 25 Mg Tablet, 25 MG PO HS, (Reported) Atenolol 50 Mg Tablet, 50 MG PO BID, (Reported) Citalopram Hydrobromide 10 Mg Tablet, 10 MG PO DAILY, (Reported) Dorzolamide HCl/Pf 10 Ml Drops, 1 DROP OU BID, (Reported) Fluticasone/Vilanterol 1 Each Blst.w.dev, 1 PUFF IH DAILY, (Reported) Furosemide 40 Mg Tablet, 60 MG PO DAILY, (Reported) TAKES 1 & (40MG) TABS Gabapentin 300 Mg Capsule, 300 MG PO TID, (Reported) Latanoprost 2.5 Ml Drops, 1 DROP OU HS, (Reported) Meloxicam 7.5 Mg Tablet, 7.5 MG PO DAILY, (Reported) Montelukast Sodium 10 Mg Tablet, 10 MG PO DAILY, (Reported) Nitrofurantoin Monohyd/M-Cryst 100 Mg Capsule, 100 MG PO BID Prescribed by: JUSTIN JOHNSON on 10/05/20 1109 Potassium Chloride 20 Meq Tablet.er, 20 MEQ PO DAILY, (Reported) Pravastatin Sodium 10 Mg Tablet, 10 MG PO HS, (Reported) Ropinirole HCl 1 Mg Tablet, 1 MG PO HS, (Reported) Tramadol HCl 50 Mg Tablet, 50 MG PO Q12H PRN for PAIN-MODERATE (5-7), (Reported) Verapamil HCl 240 Mg Tablet.er, 240 MG PO DAILY, (Reported) Warfarin Sodium 3 Mg Tablet, 3 MG PO SUN,MON,WED,FRI,SAT, (Reported) Warfarin Sodium 3 Mg Tablet, 4.5 MG PO ,, (Reported) TAKES 1 & (3MG) TABS Patient Home Medication List Home Medication List Reviewed: Yes Review of Systems Review of Systems Constitutional: no symptoms reported Eyes: No Symptoms Reported Ears, Nose, Mouth, Throat: no symptoms reported Respiratory: see HPI Cardiovascular: see HPI Gastrointestinal: no symptoms reported Genitourinary: no symptoms reported : No Musculoskeletal: no symptoms reported Skin: no symptoms reported Psychiatric/Neurological: See HPI Endocrine: No Symptoms Reported Hematologic/Lymphatic: No Symptoms Reported Past Qmblcvp-Vzbbys-Qeydzg Hx Past Med/Social Hx: Reviewed Nursing Past Med/Soc Hx Patient Social History Recent Hopitalizations: No Immunizations Up To Date Date of Pneumonia Vaccine: Oct 30, 2016 Date of Influenza Vaccine: Jun 24, 2020 Seasonal Allergies Seasonal Allergies: Yes Past Medical History Surgeries: Yes Section, Pacemaker, Tonsillectomy Respiratory: Yes Asthma, Sleep Apnea Currently Using CPAP: No Cardiac: Yes Atrial Fibrillation, High Cholesterol, Hypertension, Valvular Heart Disease (Aortic valve disease) Neurological: No Reproductive Disorders: No Sexually Transmitted Disease: No HIV/AIDS: No Genitourinary: No Gastrointestinal: Yes Chronic Constipation Musculoskeletal: Yes Arthritis, Chronic Back Pain Endocrine: No HEENT: Yes Glaucoma Loss of Vision: Bilateral Hearing Impairment: Denies Cancer: No Psychosocial: Yes Anxiety Integumentary: No Blood Disorders: No Adverse Reaction/Blood Tranf: No (N/A) Physical Exam Vital Signs Vital Signs - First Documented 02/14/21 02/15/21 23:46 00:52 Temp 36.2 Pulse 64 Resp 16 B/P (MAP) 136/74 (94) Pulse Ox 95 O2 Delivery Room Air O2 Flow Rate 0 Capillary Refill : Height, Weight, BMI Height: 5'4.00" Weight: 182lbs. 0.6oz. 77.860730kj; 27.60 BMI Method:Stated General Appearance: WD/WN, mild distress, thin HEENT: PERRL/EOMI, other (Lump at the angle of the left jaw of unknown etiology) Neck: normal inspection Respiratory: no respiratory distress, no accessory muscle use, wheezing Cardiovascular: regular rate, rhythm, no edema, no murmur Gastrointestinal: non tender, soft; No distended Extremities: non-tender, normal inspection Crainal Nerves: abnormal speech, facial asymmetry, facial droop (right side), other (Right-sided facial droop, aphasia) Coordination/Gait: normal finger to nose (unable to assess as cannot follow instructions) Motor/Sensory: weak motor strength RUE, weak motor strength RLE Skin: normal color, warm/dry Stroke Onset of Symptoms Date of Onset of Symptoms: February 14, 2021 Time of Symptom Onset: 22:20 NIH Stroke Scale Assessment Select: Post CT Level of Consciousness: 0=Alert (0), Level of Consciousness- Questions: 2=Answer neither question (2), LOC Commands: 0=Performs both tasks (0), Gaze: Normal (0), Visual Montemayor: 0=No visual loss unable to fully assess (0), Facial Movement (Facial Paresis): 2=Partial paralysis (2), Motor Function-Arms Right: 4=No movement (4), Motor Function-Arms Left: 0=No drift (0), Motor Function-Legs Right: 2=Some effort/gravity (2), Motor Function- Legs Left: 0=No drift (0), Limb Ataxia: 2=Present in two limbs (2), Sensory: 1=Mild to Moderate loss (1), Best Language: 2=Severe aphasia (2), Dysarthria: 2=Severe dysarthria (2), Extinction & Inattention: 2=ProfoundHemiInattention unable to fully assess (2), Total: 19 IV - TPa Received IV - TPa Procedure Performed?: Yes IV - TPa Date: February 15, 2021 IV - TPa Time: 00:25 (order time) Progress/Results/Core Measures Results/Orders Lab Results Laboratory Tests Test 02/14/21 00:10 02/14/21 23:20 Range/Units Urine Color YELLOW Urine Clarity CLEAR Urine pH 7.0 5-9 Urine Specific Grimsley <=1.005 1.016-1.022 Urine Protein NEGATIVE NEGATIVE Urine Glucose (UA) NEGATIVE NEGATIVE Urine Ketones NEGATIVE NEGATIVE Urine Nitrite NEGATIVE NEGATIVE Urine Bilirubin NEGATIVE NEGATIVE Urine Urobilinogen 2.0 < = 1.0 MG/DL Urine Leukocyte Esterase TRACE H NEGATIVE Urine RBC (Auto) NEGATIVE NEGATIVE Urine RBC NONE /HPF Urine WBC 10-25 H /HPF Urine Squamous Epithelial Cells NONE /HPF Urine Renal Epithelial Cells NONE /HPF Urine Crystals NONE /LPF Urine Bacteria FEW H /HPF Urine Casts NONE /LPF Urine Mucus NEGATIVE /LPF Urine Culture Indicated NO White Blood Count 7.4 4.3-11.0 10^3/uL Red Blood Count 4.30 3.80-5.11 10^6/uL Hemoglobin 12.1 11.5-16.0 g/dL Hematocrit 39 35-52 % Mean Corpuscular Volume 91 80-99 fL Mean Corpuscular Hemoglobin 28 25-34 pg Mean Corpuscular Hemoglobin Concent 31 L 32-36 g/dL Red Cell Distribution Width 15.6 H 10.0-14.5 % Platelet Count 241 130-400 10^3/uL Mean Platelet Volume 11.5 9.0-12.2 fL Immature Granulocyte % (Auto) 1 % Neutrophils (%) (Auto) 44 42-75 % Lymphocytes (%) (Auto) 36 12-44 % Monocytes (%) (Auto) 8 0-12 % Eosinophils (%) (Auto) 11 H 0-10 % Basophils (%) (Auto) 0 0-10 % Neutrophils # (Auto) 3.3 1.8-7.8 10^3/uL Lymphocytes # (Auto) 2.7 1.0-4.0 10^3/uL Monocytes # (Auto) 0.6 0.0-1.0 10^3/uL Eosinophils # (Auto) 0.8 H 0.0-0.3 10^3/uL Basophils # (Auto) 0.0 0.0-0.1 10^3/uL Immature Granulocyte # (Auto) 0.0 0.0-0.1 10^3/uL Prothrombin Time 16.8 H 12.2-14.7 SEC INR Comment 1.3 0.8-1.4 Activated Partial Thromboplast Time 33 24-35 SEC D-Dimer 0.89 H 0.00-0.49 UG/ML Sodium Level 141 135-145 MMOL/L Potassium Level 3.7 3.6-5.0 MMOL/L Chloride Level 101 98-107 MMOL/L Carbon Dioxide Level 29 21-32 MMOL/L Anion Gap 11 5-14 MMOL/L Blood Urea Nitrogen 15 7-18 MG/DL Creatinine 1.12 0.60-1.30 MG/DL Estimat Glomerular Filtration Rate 47 BUN/Creatinine Ratio 13 Glucose Level 116 H 70-105 MG/DL Calcium Level 9.5 8.5-10.1 MG/DL Corrected Calcium 9.5 8.5-10.1 MG/DL Total Bilirubin 1.9 H 0.1-1.0 MG/DL Aspartate Amino Transf (AST/SGOT) 19 5-34 U/L Alanine Aminotransferase (ALT/SGPT) 13 0-55 U/L Alkaline Phosphatase 88 40-136 U/L Troponin I 0.181 H <0.028 NG/ML Total Protein 6.8 6.4-8.2 GM/DL Albumin 4.0 3.2-4.5 GM/DL My Orders Orders - JOSE KEYES MD Cbc With Automated Diff (02/14/21 23:) Protime With Inr (02/14/21 23:26) Partial Thromboplastin Time (02/14/21 23:26) Comprehensive Metabolic Panel (02/14/21 23:26) Fibrin Degradation Products (02/14/21 23:) Troponin I (02/14/21 23:26) Ua Culture If Indicated (02/14/21 23:26) Catheter(Urinary) Insert & Ass 03,15 (02/14/21 23:26) Ekg Tracing (02/14/21 23:) Accucheck Stat ONCE (02/14/21 23:26) Ed Iv/Invasive Line Start (02/14/21 23:26) Ed Iv/Invasive Line Start (02/14/21 23:26) Vital Signs Stroke Patient Q15M (02/14/21 23:26) Ct Head Wo-R/O Stroke (02/14/21 23:26) O2 (02/14/21 23:26) Intake & Output 06,14,22 (02/14/21 23:26) Monitor-Rhythm Ecg Trace Only (02/14/21:) Dysphagia Screening Tool (02/14/21:26) Post Thrombolytic Adminstratio (02/14/21 23:26) Ct Angio Head/Neck (02/14/21 23:33) Iohexol Injection (Omnipaque 350 Mg/Ml 1 (02/15/21 00:00) Received Contrast (Hold Metformin- Contr (02/15/21 00:00) Sodium Chloride Flush (Catheter Flush Sy (02/15/21 00:00) Ns (Ivpb) (Sodium Chloride 0.9% Ivpb Bag (02/15/21 00:00) Chest 1 View, Ap/Pa Only (02/15/21 00:01) Vital Signs Stroke Patient Q15M (02/15/21 00:24) Dysphagia Screening Tool (02/15/21 00:24) Tenecteplase (Tnkase) (02/15/21 00:30) Post Thrombolytic Adminstratio (02/15/21 00:24) Albuterol/Ipra Inhalation Soln (Duoneb I (02/15/21 00:30) Svn Small Volume Nebulizer (02/15/21 00:25) Medications Given in ED Vital Signs/I&O 02/14/21 02/15/21 02/15/21 02/15/21 23:46 00:44 00:52 01:34 Temp 36.2 36.2 Pulse 64 60 60 Resp 16 16 B/P (MAP) 136/74 (94) 122/74 130/82 (90) Pulse Ox 95 96 O2 Delivery Room Air Room Air Room Air O2 Flow Rate 0 0 Blood Pressure Mean: 90 Progress Progress Note #1: Progress Note NIH stroke score was 19 but was very difficult to acquire due to inability to comprehend or follow instructions. Initial CT was unremarkable. This was followed by CT angiogram. While awaiting CT angiogram read, case was discussed with Dr. Burton, stroke neurologist at [facility], at 00:16. He is recommending thrombolytic therapy. I discussed this with patient's son and explained that she has increased risk of adverse bleeding events due to her warfarin use (possibly greater than 6% risk of life threatening bleed). Although she takes warfarin, this did not exclude her from thrombolytic therapy as her INR was only 1.3. After discussion of risks and benefits, son acknowledges risks and wishes to proceed with tenecteplase therapy. We also discussed tenecteplase versus alteplase and the hospital pharmacy preference for tenecteplase and reasons why. He consents to use of tenecteplase. Progress Note #2: Progress Note CT antiogram was discussed with radiologist Dr. Javed at 00:31. Large vessel occlusion was identified. Dr. Burton was notified and images clouded to [facility] for review. I discussed with Dr. Burton again at 00:50 after his review of images. Transfer for endovascular therapy was recommended. This was discussed with patients son. Indications for transfer and risks and benefits of transfer reviewed. High risk prognosis reviewed with son. He elected to transfer to [facility] and patient was transferred by [facility]. Initial ECG Impression Date: February 14, 2021 Initial ECG Impression Time: 23:47 Initial ECG Rate: 62 Diagnostic Imaging Diagonstic Imaging: CT Plain Films/CT/US/NM/MRI: head Comments CT head viewed by me and report reviewed. Discussed with the radiologist. No acute hemorrhages or masses evident. Diagonstic Imaging: CT Plain Films/CT/US/NM/MRI: other (Angiogram head and neck) Comments CT angiogram of the head and neck viewed by me and stat rad report reviewed and discussed with radiologist. Read as complex and was communicated to Dr. Burton. There was large vessel occlusion. See report for details. 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 Transfer was accepted by Dr. Burton. Transfer Time: 01:25 Transfer Facility: [facility] Method of Transfer: Air Departure-Patient Inst. Referrals: JUSTIN JOHNSON MD (PCP) Primary Care Physician Copy Copies To 1: JUSTIN JOHNSON MD, JOSHUA T MD February 15, 2021 01:00
[2021-02-15 01:34] VITALS: BP 130/82
--- NOTE | 2021-02-15 07:16 | Diagnostic Imaging Report ---
INDICATION: Right-sided weakness, altered mental status, possible stroke. TECHNIQUE: Single view chest 12:08 AM. CORRELATION STUDY: 09/26/2020 FINDINGS: Right IJ pacemaker. Heart size enlarged. Vasculature overall increased from prior. Mild perihilar edema. Mildly prominent interstitial markings. Slight asymmetric opacity of the right upper lobe. Small to moderate bilateral pleural effusions. IMPRESSION: 1. Findings suggestive of congestive heart failure, adversely changed from prior. Question asymmetric edema versus infiltrate right upper lobe. Dictated by: Dictated on workstation # [id number]
--- NOTE | 2021-02-15 07:19 | Diagnostic Imaging Report ---
PROCEDURE: CT head wo r/o stroke. TECHNIQUE: Multiple contiguous axial images were obtained through the brain without the use of intravenous contrast. Auto Exposure Controls were utilized during the CT exam to meet ALARA standards for radiation dose reduction. INDICATION: Right-sided weakness, altered mental status CORRELATION: 07/12/2020 FINDINGS: There are diffuse atrophic changes with prominence of the ventricles and sulci. There are scattered areas of decreased attenuation, nonspecific but likely changes of chronic small vessel ischemic disease. There is otherwise normal stoll-white differentiation. No abnormal areas of attenuation to suggest edema from ischemia. There is no midline shift or mass effect. No evidence for acute intracranial hemorrhage or abnormal extra-axial fluid collection. Bony calvarium is intact. Chronic pansinusitis. IMPRESSION: 1. No CT evidence for acute intracranial abnormality. 2. Age-related atrophic changes with changes of small vessel ischemic disease. Initial report was provided by Ana. Dictated by: Dictated on workstation # [id number]
--- NOTE | 2021-02-15 07:35 | Diagnostic Imaging Report ---
PROCEDURE: CT angiography of the head and CT angiography of the neck with and without contrast. TECHNIQUE: Contiguous noncontrast images were obtained from the skull base through the vertex. After intravenous contrast administration, helical CT angiography of the neck was performed. Source data was reformatted into 3D MIP projections. Delayed post contrast acquisition was also obtained. Auto Exposure Controls were utilized during the CT exam to meet ALARA standards for radiation dose reduction. INDICATION: Right-sided weakness, altered mental status. COMPARISON: None FINDINGS: CTA NECK: Aorta: Common origin of the brachiocephalic trunk left common carotid artery, normal variation. Right Common/Internal/External Carotid Artery: The right common carotid artery is patent. There is atherosclerosis at the carotid bifurcation. High degree of stenosis does not appear to be present. The internal carotid artery is mildly tortuous but patent to the skull base. The right external carotid artery is patent. Left Common/Internal/External Carotid Artery: Extensive irregular partially calcified plaque left carotid bulb. There is a segment of the distal left common carotid artery as well as left carotid bulb extending approximately 15 mm with marked luminal irregularity and severe stenosis with foci of near occlusion. Additionally, approximately 50% stenosis proximal left internal carotid artery with overall diminished flow of contrast. Throughout the majority of the left internal carotid artery, there is questionable, central thrombus extending into the distal cervical portion of the left ICA as well as questionable thrombus in the petrous portion of the left ICA. There is markedly diminished contrast in the intracranial left ICA distal to the cavernous segment. Additionally, there is marked stenosis of the left internal carotid artery and supraclinoid region. Minimal to absent flow in the supraclinoid left ICA. Intracranially, the left proximal MCAs appears to be reconstituted by collateral flow. Long segment stenosis left M1 segment with near absent flow spanning a segment of approximately 15 mm. Partial right reconstitution of M2/M3 segment with markedly diminished flow distal branches left MCA. Vertebral arteries: Codominant. Patent and without significant stenosis. Non-vascular: Small left moderate to large right pleural fluid collections. Patchy groundglass attenuation of the right upper lobe. CTA HEAD: Anterior Circulation: Abnormal findings of the intracranial left ICA with extension into the proximal M1 branches as detailed above. The right intracranial branches of the ICA are patent. Right middle cerebral artery and anterior cerebral arteries are unremarkable. Posterior Circulation: The bilateral intracranial segments of the vertebral arteries are patent. The basilar artery is patent and without stenosis. The posterior cerebral arteries are patent. Post Contrast Head: No concerning enhancement on delayed post-contrast imaging. IMPRESSION: 1. Abnormal CTA of the neck and head. There is extensive areas of occlusion or near occlusion involving large portion originating at the distal left common carotid artery through the internal carotid artery intracranially with involvement of the ICA and into the proximal middle cerebral artery branches on the left. 2. Right-sided circulation both in the neck and head appear to be patent. Initial report was provided by [employer]. Dictated by: Dictated on workstation # [id number]
== END 2021-02-15 01:34 | disposition short-term general hospital (02) ==
LOC: EDUNIT# 23:16 → ER 23:18
DX: I63.512 Cerebral infarction due to unspecified occlusion or stenosis of left middle cerebral artery (principal); G81.91 Hemiplegia, unspecified affecting right dominant side; R47.01 Aphasia; R29.810 Facial weakness; R77.8 Other specified abnormalities of plasma proteins; I10 Essential (primary) hypertension; J45.909 Unspecified asthma, uncomplicated; E78.00 Pure hypercholesterolemia, unspecified; I48.91 Unspecified atrial fibrillation; G89.29 Other chronic pain; M54.9 Dorsalgia, unspecified; Z95.0 Presence of cardiac pacemaker; Z79.01 Long term (current) use of anticoagulants; Z79.891 Long term (current) use of opiate analgesic; Z79.51 Long term (current) use of inhaled steroids; Z79.899 Other long term (current) drug therapy
CPT/HCPCS: 36415; 51702; 70450; 70496; 70498; 71045; 80053; 81000; 84484; 85025; 85379; 85610; 85730; 93005; 93041; 94640

== ENCOUNTER 2021-02-24 09:34 | Inpatient (IN) | payer MEDICARE ==
[~2021-02-24] VITALS: Ht 167 cm; Wt 70.6 kg
[2021-02-24] MEDS ORDERED: ROSU20TA32 PO (13:08)
[2021-02-24] MEDS ORDERED: RT-ALBUINH IH (13:08)
[2021-02-24] MEDS ORDERED: SPIR25TA PO (13:08)
[2021-02-24] MEDS ORDERED: NPPH15OP OS (13:08)
[2021-02-24] MEDS ORDERED: CITA10TA7 PO (13:08)
[2021-02-24] MEDS ORDERED: LISI-729 PO (13:08)
[2021-02-24] MEDS ORDERED: APIX5TAB PO (13:08)
[2021-02-24] MEDS ORDERED: CARV6.25 PO (13:08)
[2021-02-24] MEDS ORDERED: CEFP200T2 PO (13:08)
[2021-02-24] MEDS ORDERED: FLEET ENEMA ADULT 1 EA BTL PR PRN (13:15)
[2021-02-24] MEDS ORDERED: diphenhydrAMINE 25 MG TAB (BENADRYL) PO PRN (13:15)
[2021-02-24] MEDS ORDERED: guaiFENesin/CODEINE (ROBITUSSIN AC) 10ML UDC PO PRN (13:15)
[2021-02-24] MEDS ORDERED: DOCUSATE SODIUM 100 MG (COLACE) CAP PO PRN (13:15)
[2021-02-24] MEDS ORDERED: LACTULOSE SYRUP 10GM/15ML (ENULOSE) 30ML UDC PO PRN (13:15)
[2021-02-24] MEDS ORDERED: LOPERAMIDE 2 MG (IMODIUM) TABLET PO PRN (13:15)
[2021-02-24] MEDS ORDERED: ONDANSETRON 4 MG (ZOFRAN) ORAL DISSOLVE TAB PO PRN (13:15)
[2021-02-24] MEDS ORDERED: CALCIUM CARBONATE 500 MG (TUMS) TAB.CHEW PO PRN (13:15)
[2021-02-24] MEDS ORDERED: BISACODYL 10 MG SUPP (DULCOLAX) PR PRN (13:15)
[2021-02-24 16:53] VITALS: BP 106/77
[2021-02-24] MEDS ORDERED: RT-ALBUTEROL SULF 2.5 MG/3 ML PRE-MIX VIAL IH PRN (18:15)
--- NOTE | 2021-02-24 18:16 | PM&R Post Admission Assessment ---
PM&R HP Date of Visit: Feb 24, 2021 Time of Visit: 18:30 History of Present Illness Chief complaint: CVA History of present illness: This is a 81-year-old white female who presents to inpatient rehab from after suffering a left M1 ischemic stroke status post TPA. She continues to have residual dysphagia and expressive/receptive aphasia. She had a parotid mass biopsied at the time of admission which showed an adenoma. She has a history of atrial fibrillation, aortic stenosis, hypertension, pulmonary edema maintained on 2 L nasal cannula baseline and ur inary retention status post catheter. Her prior level of functioning was independent living at home and now she is in need of significant aggressive therapy in order to regain independent ADLs and ambulation. Patient has difficulty communicating due to the stroke. [facility] note: Today's Date: 02/24/2021 Name: Citlaly Salazar Admission Date: 02/15/2021 LOS: 9 days Assessment/Plan: Citlaly Salazar is a 80 y.o. female with a PMH significant for Afib who takes warfarin, an aortic valve pathology (investigating), PPM, HTN, HLD. Presented to an OSH with acute onset of right hemiparesis, right facial droop and dysarthria. Received tPA [ tenecteplase] in OSH 02/15 [INR was 1.3] . CTA demonstrated L M1 occlusion for which transferred to [facility] on 02/15 for EVT with TICI 3 achieved. Stroke work up completed. Hospital stay c/b respiratory distress , uncontrolled HTN and left parotid mass , biopsy showed pleomorphic adenoma. Medically ready to be discharged. Plan to discharge to [facility] on 02/24/2021. Acute L M1 ischemic stroke - Symptom Onset : LKN 02/14/21 @ 2220 - Tenecteplase (TNK) administered at OSH at 0030 - S/P TNK and EVT with TICI 3 02/15 - Initial NIH: 19 at OSH - Stroke work up : MRI head WO contrast 02/15 with left temporal and insular infarcts CT head 02/15 without mass effect or hemorrhagic conversion A1C 5.3 LDL 64 Echo EF 60% Sever LA enlargement UDS negative US Carotid B/L athero w/o significant stenosis <50 % - Started on Apixaban on 02/16 - Rehab Medicine, PT, OT, FORMSTONE FITTER consulted : Likely IPR , will need to be reevaluated Plan : > Continue Apixaban > Continue rosuvastatin > Long-term BP goal < 130/80 > PT/OT > Rehab medicine consulted, appreciate recs > FORMSTONE FITTER: passed Left viral conjunctivitis > eye drops and warm compresses Arthritis of Knees - chronic - voltaren gel TID Parotid mass Pleomorphic Adenoma - Incidentally noticed on admission - ENT consulted : recommend FNA , obtained by IR on 02/17 - F/U FNA results - done , pleomorphic adenoma Plan : > OP f/u with ENT 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) PPM; V paced Afib Pulmonary edema - 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 --> switched to apixaban on 02/16 Later received 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 meds which includes :metoprolol and verapamil [currently on hold since pt on coreg] , lasix 40 mg po - Had positive Troponin in OSH 0.18 , trending down - PRN labetalol - Echo EF 60% Sever LA enlargement Plan : > Continue coreg 6.25 mg BID > Added lisinopril 5 > Monitor I/O > Continue spirolactone 12.5 mg > restart po lasix with 20 mg Qday [ 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 Mansfield. Past Aqrlbuf-Hessxt-Fhzjwh Hx Past Med/Social Hx: Reviewed Nursing Past Med/Soc Hx, Reviewed and Corrections made Patient Social History Marrital Status: single Employed/Student: retired Alcohol Use: Denies Use Smoking Status: Unknown if Ever Smoked Recent Hopitalizations: No Immunizations Up To Date Date of Pneumonia Vaccine: Oct 30, 2016 Date of Influenza Vaccine: Jun 24, 2020 Seasonal Allergies Seasonal Allergies: Yes Past Medical History Surgeries: Section, Pacemaker, Tonsillectomy Currently Using CPAP: No Cardiac: Atrial Fibrillation, High Cholesterol, Hypertension, Valvular Heart Disease Neurological: Stroke Reproductive: No Sexually Transmitted Disease: No HIV/AIDS: No Gastrointestinal: Chronic Constipation Musculoskeletal: Arthritis, Chronic Back Pain HEENT: Glaucoma Loss of Vision: Bilateral Hearing Impairment: Denies Psychosocial: Anxiety History of Blood Disorders: No Adverse Reaction to Blood Jaime: No (N/A) PM&R Allergy/Meds/Data Review Allergies Coded Allergies: doxycycline (Unverified Allergy, Mild, 11/26/17) Home Medications Scheduled Amitriptyline HCl (Amitriptyline HCl), 25 MG PO HS, (Reported) Apixaban (Eliquis), 5 MG PO BID, (Reported) Carvedilol (Coreg), 6.25 MG PO BID, (Reported) Cefpodoxime Proxetil (Cefpodoxime Proxetil), 200 MG PO BID, (Reported) Citalopram Hydrobromide (Citalopram HBr), 10 MG PO DAILY, (Reported) Fluticasone/Vilanterol (Breo Ellipta 200-25 Mcg INH), 1 PUFF IH DAILY, (Reported) Furosemide (Furosemide), 40 MG PO DAILY, (Reported) Gabapentin (Neurontin), 300 MG PO TID, (Reported) Latanoprost (Xalatan), 1 DROP OU HS, (Reported) Lisinopril (Lisinopril), 5 MG PO DAILY, (Reported) Naphazoline/Pheniramine (Naphcon-A Eye Drops), 1 DROP OS QID, (Reported) Potassium Chloride (Potassium Chloride), 20 MEQ PO DAILY, (Reported) Ropinirole HCl (Ropinirole HCl), 1 MG PO HS, (Reported) Rosuvastatin Calcium (Rosuvastatin Calcium), 20 MG PO DAILY, (Reported) Spironolactone (Aldactone), 12.5 MG PO DAILY, (Reported) Scheduled PRN Albuterol Sulfate (Proair Hfa), 4 PUFF IH Q8H PRN for SHORTNESS OF BREATH, (Reported) Tramadol HCl (Tramadol HCl), 50 MG PO Q12H PRN for PAIN-MODERATE (5-7), (Reported) Discontinued Medications Albuterol Sulfate (Ventolin Hfa), 0 GM IH RTQ2H PRN for SOA Discontinued Reason: Duplicate Order Atenolol (Atenolol), 50 MG PO BID, (Reported) Discontinued Reason: No Longer Taking Citalopram Hydrobromide (Celexa), 10 MG PO DAILY, (Reported) Discontinued Reason: Duplicate Order Dorzolamide HCl/Pf (Dorzolamide 2% Eye Drop), 1 DROP OU BID, (Reported) Discontinued Reason: No Longer Taking Meloxicam (Meloxicam), 7.5 MG PO DAILY, (Reported) Discontinued Reason: No Longer Taking Montelukast Sodium (Montelukast Sodium), 10 MG PO DAILY, (Reported) Discontinued Reason: No Longer Taking Nitrofurantoin Monohyd/M-Cryst (Nitrofurantoin [place]-Mcr 100 mg), 100 MG PO BID Discontinued Reason: No Longer Taking Pravastatin Sodium (Pravastatin Sodium), 10 MG PO HS, (Reported) Discontinued Reason: No Longer Taking Verapamil HCl (Verapamil ER), 240 MG PO DAILY, (Reported) Discontinued Reason: No Longer Taking Warfarin Sodium (Warfarin Sodium), 3 MG PO SUN,MON,WED,FRI,SAT, (Reported) Discontinued Reason: No Longer Taking Warfarin Sodium (Warfarin Sodium), 4.5 MG PO ,, (Reported) Discontinued Reason: No Longer Taking Current Medications Current Medications Reviewed Review of Systems Constitutional: see HPI, malaise, weakness Psychiatric/Neurological: Other (Confusion) Physical Exam Physical Exam Vital Signs Vital Signs - First Documented 02/24/21 16:53 Temp 36.3 Pulse 80 Resp 16 B/P (MAP) 106/77 (87) Pulse Ox 95 O2 Delivery Room Air Capillary Refill : Height, Weight, BMI Height: 5'4.00" Weight: 182lbs. 0.6oz. 77.040491on; 23.05 BMI Method:Stated General Appearance: No Apparent Distress, WD/WN, Chronically ill Eyes: Bilateral Eye Normal Inspection, Bilateral Eye PERRL HEENT: PERRL/EOMI, Normal ENT Inspection, Pharynx Normal Neck: Full Range of Motion, Normal Inspection, Non Tender, Supple, Carotid Bruit Respiratory: Chest Non Tender, Lungs Clear, Normal Breath Sounds, No Accessory Muscle Use, No Respiratory Distress Cardiovascular: Regular Rate, Rhythm, No Edema, No Gallop, No JVD, No Murmur, Normal Peripheral Pulses Gastrointestinal: Normal Bowel Sounds, No Organomegaly, No Pulsatile Mass, Non Tender, Soft Back: Normal Inspection, No CVA Tenderness, No Vertebral Tenderness Extremity: Normal Capillary Refill, Normal Inspection, Normal Range of Motion, Non Tender, No Calf Tenderness, No Pedal Edema Neurologic/Psychiatric: Alert, Oriented x3, No Motor/Sensory Deficits, Normal Mood/Affect, Abnormal Gait, Aphasia, Disoriented, Motor Weakness (Generalized) Skin: Normal Color, Warm/Dry Lymphatic: No Adenopathy PM&R Medical Assessment & Plan REHAB/MEDICAL ASSESSMENT AND PLAN: REHAB IMPAIRMENT GROUP: CVA ETIOLOGIC DIAGNOSIS: CVA The comorbidities that impact the patients function and/or functional outcome by: Advanced age, partial aphasia, confusion, cardiac dysfunction, hypoxia REHAB PLAN: The patient is being admitted to our comprehensive inpatient rehabilitation facility and can tolerate the intensity of service consisting of at least: 180 minutes of therapy a day, 5 out of 7 days a week Rehab treatment will consist of: PT OT ST will all focus on regaining ambulatory function along with independent ADLs and help with cognition and communication and retention of information The patient/family has a good understanding of our discharge process and will benefit from an interdisciplinary inpatient rehabilitation program. The patient has potential to make improvement and is in need of at least two of the following multidisciplinary therapies including but not limited to physical, occupational, speech, and prosthetics and orthotics. Additionally the patient will need services from respiratory, nutritional services, wound care, psychology, etc. (Customize this to each patient). Given the patients complex condition and risk of further medical complications, rehabilitation services cannot be safely or effectively provided at a lower level of care such as a care home facility. BARRIERS TO DISCHARGE: Advanced age and lives alone ESTIMATED LOS: 14 days DISPOSITION: Home RELEVANT CHANGES SINCE PREADMISSION SCREENING: I have compared the patients medical and functional status at the time of the preadmission screening and there are: no changes PROGNOSIS: Guarded REHABILITATION GOALS: 1. PT OT ST will all focus on regaining ambulatory function along with indepen dent ADLs and help with cognition and communication and retention of information All the above goals were reviewed with the patient and he/she is in agreement. By signing this document, I acknowledge that I have personally performed a full physical examination on this patient within 24 hours of admission to this inpatient rehabilitation facility and have determined the patient to be able to tolerate the above course of treatment at an intensive level for a reasonable period of time. I will be completing a detailed individualized Plan of Care for this patient by day #4 of the patients stay based upon the Preadmission Screen, the Post-Admission Evaluation, and the therapy evaluations. Admission Dx/Comorbidities: (1) CVA (cerebral vascular accident) ICD Codes: I63.9 - Cerebral infarction, unspecified (2) Right sided weakness Status: Acute ICD Codes: R53.1 - Weakness (3) Aphasia Status: Acute ICD Codes: R47.01 - Aphasia (4) Debility Status: Acute ICD Codes: R53.81 - Other malaise (5) Delirium Status: Acute ICD Codes: R41.0 - Disorientation, unspecified Assessment/Plan Assessment and Plan Assess & Plan/Chief Complaint Assessment: CVA Partial aphasia Receptive aphasia Hypertension Aortic stenosis Chronic atrial fibrillation Memory loss Debility History of Covid Plan: Cardiology consult Inpatient rehab protocol Aggressive therapy Fall risk MAAME LOMBARDO DO Feb 24, 2021 18:16
[2021-02-24] MEDS: polyethylene glycoL POWDER 17 GM (MIRALAX) PACK PO SCH (20:05)
[2021-02-24] MEDS: DOCUSATE SODIUM 100 MG (COLACE) CAP PO SCH (20:06)
[2021-02-24] MEDS: SENNA W/DOCUSATE (SENOKOT S) TABLET PO SCH (20:06)
[2021-02-24] MEDS: NAPHA/PHEN (NAPHCON-A, OPCON-A) OP SOLN 15 ML BTL OS SCH (20:23)
[2021-02-24] MEDS: GABAPENTIN 300 MG (NEURONTIN) CAP PO SCH (20:24)
[2021-02-24] MEDS: AMITRIPTYLINE 25 MG (ELAVIL) TAB PO SCH (20:24)
[2021-02-24] MEDS: LATANOPROST 0.005% (XALATAN) OPHTH SOLN 2.5 ML OU SCH (20:24)
[2021-02-24] MEDS: MELATONIN 3 MG TABLET PO PRN (20:24)
[2021-02-24] MEDS: CEFDINIR 300 MG (OMNICEF) CAP PO SCH (20:24)
[2021-02-24] MEDS: rOPINIRole 1 MG (REQUIP) TABLET PO SCH (20:24)
[2021-02-24] MEDS: APIXABAN 5 MG (ELIQUIS) TABLET PO SCH (20:24)
[2021-02-24 20:43] VITALS: BP 159/74
[2021-02-24] MEDS ORDERED: CEFPODOXIME PROXETIL 200 MG PO SCH (21:00)
[2021-02-24] MEDS ORDERED: ZIPRASIDONE 20 MG INJ (GEODON) VIAL IM PRN (21:30)
[2021-02-24] MEDS ORDERED: WATER (STERILE) FOR INJ 10 ML BTL INJ SCH (21:30)
[2021-02-24] MEDS ORDERED: LORazepam INJ 2 MG/ML (ATIVAN) VIAL IVP PRN (21:30)
[2021-02-24] MEDS ORDERED: HALOPERIDOL 5 MG/ML (HALDOL) VIAL IM PRN (21:30)
[2021-02-25 05:38] LABS: BASOPHILS % (AUTO) 0 % (0-10); EOSINOPHILS # (AUTO) 1.3 10^3/uL (0.0-0.3); EOSINOPHILS % (AUTO) 13 % (0-10); HEMATOCRIT 39 % (35-52); HEMOGLOBIN 12.4 g/dL (11.5-16.0); LYMPHOCYTES # (AUTO) 2.5 10^3/uL (1.0-4.0); LYMPHOCYTES % (AUTO) 27 % (12-44); MEAN CORPUSCULAR HEMOGLOBIN 29 pg (25-34); MEAN CORPUSCULAR HGB CONC 32 g/dL (32-36); MEAN CORPUSCULAR VOLUME 91 fL (80-99); MONOCYTES # (AUTO) 0.7 10^3/uL (0.0-1.0); MONOCYTES % (AUTO) 7 % (0-12); NEUTROPHILS # (AUTO) 4.9 10^3/uL (1.8-7.8); NEUTROPHILS % (AUTO) 52 % (42-75); PLATELET COUNT 284 10^3/uL (130-400); WHITE BLOOD COUNT 9.4 10^3/uL (4.3-11.0)
[2021-02-25 05:46] LABS: ALBUMIN 3.5 GM/DL (3.2-4.5); POTASSIUM 4.3 MMOL/L (3.6-5.0)
[2021-02-25 05:48] LABS: CALCIUM 9.5 MG/DL (8.5-10.1)
[2021-02-25 05:49] LABS: TOTAL PROTEIN 6.1 GM/DL (6.4-8.2)
[2021-02-25 05:51] LABS: BILIRUBIN,TOTAL 1.9 MG/DL (0.1-1.0)
[2021-02-25 05:52] LABS: CREATININE SERUM 0.91 MG/DL (0.60-1.30)
[2021-02-25 05:58] LABS: SMEAR SCAN COMMENT YES
[2021-02-25] MEDS: KCL 20 MEQ TAB (K-DUR) PO SCH (06:35)
--- NOTE | 2021-02-25 06:44 | PM&R Progress Note ---
Subjective HPI/CC On Admission Date Seen by Provider: Feb 25, 2021 Time Seen by Provider: 11:30 Subjective/Events-last exam 02/25/2021: Patient doing pretty well today Oriented x1 Expressive aphasia makes it difficult to communicate Appreciate cardiology consultation Echocardiogram was performed with bubble test Fall risk prevention Check meds and labs Review of Systems General: Fatigue, Malaise Neurological: Change in speech, Confusion Objective Exam Vital Signs Vital Signs Date Time Temp Pulse Resp B/P (MAP) Pulse Ox O2 Delivery O2 Flow Rate FiO2 02/25/21 20:21 36.8 60 16 118/56 (76) 95 Room Air Capillary Refill : General Appearance: No Apparent Distress, WD/WN, Chronically ill HEENT: PERRL/EOMI, Normal ENT Inspection, Pharynx Normal Neck: Full Range of Motion, Normal Inspection, Non Tender, Supple, Carotid Bruit Respiratory: Chest Non Tender, Lungs Clear, Normal Breath Sounds, No Accessory Muscle Use, No Respiratory Distress Cardiovascular: Regular Rate, Rhythm, No Edema, No Gallop, No JVD, No Murmur, Normal Peripheral Pulses Gastrointestinal: Normal Bowel Sounds, No Organomegaly, No Pulsatile Mass, Non Tender, Soft Back: Normal Inspection, No CVA Tenderness, No Vertebral Tenderness Extremity: Normal Capillary Refill, Normal Inspection, Normal Range of Motion, Non Tender, No Calf Tenderness, No Pedal Edema Neurologic/Psychiatric: Alert, Oriented x3, No Motor/Sensory Deficits, Normal Mood/Affect, Abnormal Gait, Aphasia, Disoriented, Motor Weakness (Generalized) Skin: Normal Color, Warm/Dry Lymphatic: No Adenopathy Results/Procedures Lab Patient resulted labs reviewed. FIM Transfers Therapy Code Descriptions/Definitions Functional [place] Measure: 0=Not Assessed/NA 4=Minimal Assistance 1=Total Assistance 5=Supervision or Setup 2=Maximal Assistance 6=Modified [place] 3=Moderate Assistance 7=Complete IndependenceSCALE: Activities may be completed with or without assistive devices. 8-Skcfprsxrr-ydegjwq completes the activity by him/herself with no assistance from a helper. 5-Set-up or Clean-up Assistance-helper sets up or cleans up; patient completes activity. [place] assists only prior to or following the activity. 4-Supervision or Touching Assistance-helper provides verbal cues and/or touching/steadying and/or contact guard assistance as patient completes activity. Assistance may be provided throughout the activity or intermittently. 3-Partial/Moderate Assistance-helper does LESS THAN HALF the effort. [place] lifts, holds or supports trunk or limbs, but provides less than half the effort. 2-Substantial/Maximal Assistance-helper does MORE THAN HALF the effort. [place] lifts or holds trunk or limbs and provides more than half the effort. 2-Agtutixjm-ejvzgk does ALL the effort. Patient does none of the effort to complete the activity. Or, the assistance of 2 or more helpers is required for the patient to complete the activity. If activity was not attempted, code reason: 7-Patient Refused. 9-Not Applicable-not attempted and the patient did not perform the activity before the current illness, exacerbation or injury. 10-Not Attempted due to Environmental Limitations-(lack of equipment, weather restraints, etc.). 88-Not Attempted due to Medical Conditions or Safety Concerns. Assessment/Plan Assessment and Plan Assess & Plan/Chief Complaint Assessment: CVA Partial aphasia Receptive aphasia Hypertension Aortic stenosis Chronic atrial fibrillation Memory loss Debility History of Covid Plan: Cardiology consult Inpatient rehab protocol Aggressive therapy Fall risk 02/25/2021: Fall risk prevention Increase independence in ADLs Appreciate cardiology (1) CVA (cerebral vascular accident) (2) Right sided weakness Status: Acute (3) Aphasia Status: Acute (4) Debility Status: Acute (5) Delirium Status: Acute MAAME LOMBARDO DO Feb 25, 2021 06:44
[2021-02-25] MEDS: polyethylene glycoL POWDER 17 GM (MIRALAX) PACK PO SCH ×2 (07:40→19:59)
[2021-02-25] MEDS: SENNA W/DOCUSATE (SENOKOT S) TABLET PO SCH ×2 (07:41→20:00)
[2021-02-25] MEDS: DOCUSATE SODIUM 100 MG (COLACE) CAP PO SCH ×2 (07:41→19:59)
[2021-02-25 08:00] VITALS: BP 127/63
[2021-02-25] MEDS: lisINopril 5 MG (PRINIVIL) TABLET PO SCH (08:35)
[2021-02-25] MEDS: FUROSEMIDE 40 MG (LASIX) TAB PO SCH (08:35)
[2021-02-25] MEDS: GABAPENTIN 300 MG (NEURONTIN) CAP PO SCH ×3 (08:35→20:12)
[2021-02-25] MEDS: ROSUVASTATIN 20 MG (CRESTOR) TABLET PO SCH (08:35)
[2021-02-25] MEDS: CEFDINIR 300 MG (OMNICEF) CAP PO SCH ×2 (08:35→20:12)
[2021-02-25] MEDS: SPIRONOLACTONE 25 MG (ALDACTONE) TAB PO SCH (08:35)
[2021-02-25] MEDS: APIXABAN 5 MG (ELIQUIS) TABLET PO SCH ×2 (08:35→20:11)
[2021-02-25] MEDS ORDERED: FLUTICASONE/VILANTEROL 200 MCG 14'S (BREO) IH SCH (09:00)
[2021-02-25] MEDS ORDERED: NON-FORMULARY MEDICATION 1 EA EA (Potassium Chloride 20 MEQ) PO SCH (09:00)
--- NOTE | 2021-02-25 09:28 | Consultation-Cardiology ---
HPI-Cardiology Cardiology Consultation: Date of Consultation 02/25/21 Time Seen by a Provider: 09:40 Date of Admission 02-24-21 Attending Physician Audelia Chatman DO Admitting Physician Jason Boudreaux MD Consulting Physician Mala Lemons MD HPI: Chief Complaint: H/O CVA Ms. Salazar is a 81 yr old female admitted to IR[facility] [address]. We have reviewed the extensive records from [facility]. She presented to [facility] on 02-15-21 with acute stroke and was subsequently transferred to [facility] for treatment. She has been transferred back to [facility] IRU under the care of Dr. Chatman for re-hab services. She is currently sitting up in a recliner at the bedside. She does not report any pain, except bilat knee pain. She is oriented to self only. She is awake and moving all extremities. Review of Systems-Cardiology Review of Systems Other comments To the extent it could be obtained, which is very minimal, is as per the [facility] [id number] Hx Patient Social History Marrital Status: single Employed/Student: retired Smoking Status: Unknown if Ever Smoked Immunizations Up To Date Date of Pneumonia Vaccine: Oct 30, 2016 Date of Influenza Vaccine: Jun 24, 2020 Past Medical History PM As described under Assessment. Family Medical History Family Medical History: Unable to obtain Allergies and Home Medications Allergies Coded Allergies: doxycycline (Unverified Allergy, Mild, 11/26/17) Home Medications Albuterol Sulfate 1 Puff Puff, 4 PUFF IH Q8H PRN for SHORTNESS OF BREATH, (Reported) Last Action: Continued Amitriptyline HCl 25 Mg Tablet, 25 MG PO HS, (Reported) Last Action: Continued Apixaban 5 Mg Tablet, 5 MG PO BID, (Reported) Last Action: Continued Carvedilol 6.25 Mg Tablet, 6.25 MG PO BID, (Reported) Last Action: Continued Cefpodoxime Proxetil 200 Mg Tablet, 200 MG PO BID, (Reported) TAKE WITH FOOD KU DISCHARGE SAYS TO TAKE FOR 3 DAYS Last Action: Converted Citalopram Hydrobromide 10 Mg Tablet, 10 MG PO DAILY, (Reported) Last Action: Continued Fluticasone/Vilanterol 1 Each Blst.w.dev, 1 PUFF IH DAILY, (Reported) Last Action: Continued Furosemide 40 Mg Tablet, 40 MG PO DAILY, (Reported) Last Action: Continued Gabapentin 300 Mg Capsule, 300 MG PO TID, (Reported) Last Action: Continued Latanoprost 2.5 Ml Drops, 1 DROP OU HS, (Reported) Last Action: Continued Lisinopril 5 Mg Tablet, 5 MG PO DAILY, (Reported) Last Action: Continued Naphazoline/Pheniramine 15 Ml Soln, 1 DROP OS QID, (Reported) Last Action: Continued Potassium Chloride 20 Meq Tablet.er, 20 MEQ PO DAILY, (Reported) Last Action: Converted Ropinirole HCl 1 Mg Tablet, 1 MG PO HS, (Reported) Last Action: Continued Rosuvastatin Calcium 20 Mg Tablet, 20 MG PO DAILY, (Reported) Last Action: Continued Spironolactone 25 Mg Tablet, 12.5 MG PO DAILY, (Reported) TAKE WITH FOOD TAKE OF A 25MG TAB Last Action: Continued Tramadol HCl 50 Mg Tablet, 50 MG PO Q12H PRN for PAIN-MODERATE (5-7), (Reported) Last Action: Continued Physical Exam-Cardiology Physical Exam Vital Signs/I&O 02/25/21 02/25/21 02/25/21 07:58 08:00 09:00 Temp 36.8 Pulse 61 Resp 25 B/P (MAP) 127/63 (84) Pulse Ox 96 94 O2 Delivery Room Air Room Air Room Air Capillary Refill : Constitutional: well-developed, well-nourished HEENT: hearing is well preserved, oral hygience is good Neck: No carotid bruit Respiratory: No accessory muscle use, No respiratory distress; chest expansion is symmetric, chest is bilaterally symmetric, lungs clear to auscultation Cardiovascular: regular rate-rhythm; No JVD; S1 and S2, systolic murmur (2-3/6 MSM) Gastrointestinal: audible bowel sounds Extremities: no lower extremity edema bilateral Neurologic/Psychiatric: other (oriented to self only; moves all extremities; delayed speech) Skin: No rash on exposed areas, No ulcerations on exposed areas Data Review Labs Laboratory Tests 02/25/21 05:05: White Blood Count 9.4, Red Blood Count 4.28, Hemoglobin 12.4, Hematocrit 39, Mean Corpuscular Volume 91, Mean Corpuscular Hemoglobin 29, Mean Corpuscular Hemoglobin Concent 32, Red Cell Distribution Width 16.6H, Platelet Count 284, Mean Platelet Volume 12.0, Immature Granulocyte % (Auto) 0, Neutrophils (%) (Auto) 52, Lymphocytes (%) (Auto) 27, Monocytes (%) (Auto) 7, Eosinophils (%) (Auto) 13H, Basophils (%) (Auto) 0, Neutrophils # (Auto) 4.9, Lymphocytes # (Auto) 2.5, Monocytes # (Auto) 0.7, Eosinophils # (Auto) 1.3H, Basophils # (Auto) 0.0, Immature Granulocyte # (Auto) 0.0, Sodium Level 141, Potassium Level 4.3, Chloride Level 105, Carbon Dioxide Level 25, Anion Gap 11, Blood Urea Nitrogen 29H, Creatinine 0.91, Estimat Glomerular Filtration Rate 60, BUN/Creatinine Ratio 32, Glucose Level 103, Calcium Level 9.5, Corrected Calcium 9.9, Total Bilirubin 1.9H, Aspartate Amino Transf (AST/SGOT) 29, Alanine Aminotransferase (ALT/SGPT) 21, Alkaline Phosphatase 70, Total Protein 6.1L, Albumin 3.5, Smear Scan YES A/P-Cardiology Assessment/Admission Diagnosis Thromboembolic CVA with right hemiparesis, facial droop and dysarthria - MRI at [facility] showed abrupt occlusion of the left M1 segment with poor collateral flow; left common carotid artery with mild plaque no high grade stenosis; LICA showed mod tortuosity of the mid cervical ICA. Abrupt occlusion of the left MCA mid M1 segment with delayed collateral vessels to the MCA territory mainly from MAIK branches - s/p successful mechanical thrombectomy per Dr. Lemos of interventional radi ology at [facility] Chronic a-fib documented - had been on OAC with warfarin and was transitioning to Eliquis at time of stroke per records from [facility] Echocardiogram on 02-15-[address] Carrion at [facility] - LVEF 60%; LVH; severe LA enlargement and mod RA enlargement; Mod mitral annular calcification with mild mitral valve stenosis and mild to mod MR; mod aortic valve stenosis with mod AoVR; small pericardial effusion without evidence of chamber compression or tamponade; no intracardiac thrombus seen PPM in place - details unknown Parotid mass incidentally found at [facility] - has undergone w/u HLD Discussion and Recomendations Recent thromboembolic CVA for which she has undergone treatment at [facility] She is unable to answer any questions regarding her cardiac history - will have nursing check with family and obtain records from where her pervious cardiac care has been EKG today Echocardiogram today d/t documentation in her [facility] records and [facility] records stating aortic valve replacement Carotid u/s today d/t reported occlusion of left carotid Continue OAC with ok with Dr. Chatman Monitor lab Replace electrolytes as indicated Further recs will be based on her hospital course We would like to thank Dr. Chatman for this consult SALLY KENNEDY Feb 25, 2021 09:28
--- NOTE | 2021-02-25 09:57 | Physical Therapy Evaluation ---
PT Evaluation-General Medical Diagnosis Admission Date Feb 24, 2021 at 16:39 Medical Diagnosis: CVA Onset Date: February 15, 2021 Therapy Diagnosis Therapy Diagnosis: impaired mobility, strength, endurance Height/Weight Height (Feet): 5 Height (Inches): 4.00 Weight (Pounds): 182 Weight (Ounces): 0.6 Precautions Precautions/Isolations: Contact Isolation, Fall Prevention, Standard Precauti ons, Pressure Ulcer Referral Physician: Audelia Chatman DO Reason for Referral: Evaluation/Treatment Medical History Pertinent Medical History: Atrial Fib, Arthritis, HTN Reviewed History: Yes Social History Patient is unsure about this, she says she lives with her son but cannot give specifics about his home. Prior Prior Level of Function SCALE: Activities may be completed with or without assistive devices. 8-Hedkmlaakm-lokdzdi completes the activity by him/herself with no assistance from a helper. 5-Set-up or Clean-up Assistance-helper sets up or cleans up; patient completes activity. [place] assists only prior to or following the activity. 4-Supervision or Touching Assistance-helper provides verbal cues and/or touching/steadying and/or contact guard assistance as patient completes activity. Assistance may be provided throughout the activity or intermittently. 3-Partial/Moderate Assistance-helper does LESS THAN HALF the effort. [place] lifts, holds or supports trunk or limbs, but provides less than half the effort. 2-Substantial/Maximal Assistance-helper does MORE THAN HALF the effort. [place] lifts or holds trunk or limbs and provides more than half the effort. 2-Uqvdajzzz-yasdki does ALL the effort. Patient does none of the effort to complete the activity. Or, the assistance of 2 or more helpers is required for the patient to complete the activity. If activity was not attempted, code reason: 7-Patient Refused. 9-Not Applicable-not attempted and the patient did not perform the activity before the current illness, exacerbation or injury. 10-Not Attempted due to Environmental Limitations-(lack of equipment, weather restraints, etc.). 88-Not Attempted due to Medical Conditions or Safety Concerns. Patient cannot answer these questions. PT Evaluation-Current Subjective Patient in recliner pre tx, agrees to PT, has unrated pain in both knees. Both knees are arthritic, has significant deformities and crepitus, neither knee has full extension, left knee is lacking about 10 degrees and the right knee about 25 degrees. Pt/Family Goals none stated, patient says "I don't know" Objective Patient Orientation: Person, Confused ROM/Strength Strength Lower Extremities LLE (hip flexion 3+/5, dorsiflexion 5/5), RLE (hip flexion 3/5, dorsiflexion 4/5), knee not tested on either side due to arthritis pain Neuromuscular (Tone, Coordination, Reflexes) Patient is unable to follow directions to test vision Sensory Hearing: Functional Sensation Right Lower Extremit: Intact Sensation Left Lower Extremity: Intact Transfers Roll Left & Right (QC): 6 Sit to Lying (QC): 3 Lying to Sitting/Side of Bed(Q: 3 Sit to Stand (QC): 4 Chair/Blv-eq-Utomg Xfer(QC): 4 Toilet Transfer (QC): 4 Car Transfer (QC): 3 Patient performs bed mobility with independence, supine <-> sit min assist, sit to stand and transfers CGA, car transfer mod assist. Patient needs a significant amount of cues for direction and hand placement, transfers and difficult for patient due to her bad knees. Gait Does the Patient Walk?: Yes Mode of Locomotion: Both Anticipated Mode of Locomotion: Both Walk 10 feet (QC): 4 Walk 50 ft with 2 Turns(QC): 88 Walk 150 ft (QC): 88 Walking 10ft/uneven surface-QC: 88 Distance: 40' Gait Assistive Device: FWW Comments/Gait Description Patient can ambulate 40' with a rolling walker with CGA, gait is antalgic, flexed knees bilaterally, very slow and painful Wheelchair Training Does the Pt Use a Wheelchair?: Yes Distance: 150'x2 Wheel 50 ft with 2 turns (QC): 3 Wheel 150 ft (QC): 3 Type of Wheelchair: Manual min assist to help turn and propel, patient pushes inches at a time Stairs 1 Step (curb) (QC): 88 4 Steps (QC): 88 12 Steps (QC): 88 Balance Sitting Static: Normal Sitting Dynamic: Normal Standing Static: Fair Standing Dynamic: Fair Picking up an Object (QC): 88 Treatment Supine BLE exercises x20 (AP, QS, GS, SLR, hip abd/add, SAQ), patient performs these very slowly, needs constant cues to stay on task, will only do a couple before stopping Assessment/Needs Patient has impaired mobility, strength, endurance. Patient performs transfers with CGA and can only ambulate short distances. Her severe bilateral knee arthritis is going to limit her potential for improvement Rehab Potential: Poor PT Short Term Goals Short Term Goals Time Frame: Mar 04, 2021 Roll Left & Right: 6 Sit to lyin Lying to sitting on side of be: 4 Sit to stand: 4 Chair/vpm-pz-ylrcu transfer: 4 Walk 10 feet: 4 Walk 50 feet with two turns: 4 PT Site Specialist Goals Site Specialist Goals PT Fdc Goals Time Frame: Mar 18, 2021 Roll Left & Right (QC): 6 Sit to Lying (QC): 6 Lying-Sitting on Side/Bed(QC): 6 Sit to Stand (QC): 4 (SBA) Chair/Sed-bv-Zzkdm Xfer(QC): 4 (SBA) Toilet Transfer (QC): 4 (SBA) Car Transfer (QC): 4 (SBA) Does the Patient Walk: Yes Walk 10 feet (QC): 4 (SBA) Walk 50ft with 2 Turns (QC): 4 (SBA) Walk 150 ft (QC): 88 Walking 10ft on Uneven Surface: 88 1 Step (curb) (QC): 88 4 Steps (QC): 88 12 Steps (QC): 88 Picking up an Object (QC): 88 Wheel 50 feet with 2 turns (QC: 5 Wheel 150 feet: 5 PT Plan Problem List Problem List: Activity Tolerance, Functional Strength, Safety, Balance, Gait, Transfer, Bed Mobility, ROM Treatment/Plan Treatment Plan: Continue Plan of Care Treatment Plan: Bed Mobility, Education, Functional Activity Katherine, Functional Strength, Group Therapy, Gait, Safety, Therapeutic Exercise, Transfers Treatment Duration: Mar 18, 2021 Frequency: At least 5 of 7 days/Wk (IRF) Estimated Hrs Per Day: 1.5 hours per day Patient and/or Family Agrees t: Yes Safety Risks/Education Patient Education: Gait Training, Transfer Techniques, Correct Positioning, W/C Management, Safety Issues Teaching Recipient: Patient Teaching Methods: Demonstration, Discussion Response to Teaching: Reinforcement Needed Discharge Recommendations Plan Patient will perform bed mobility and transfer training, balance and endurance training, functional strengthening, stair training, gait training, and education, to improve functional mobility and independence at home. Therapy Discharge Recommendati: 24 Hour Supervision Time/GCodes Time In: 0900 Time Out: 1000 Total Billed Treatment Time: 60 Total Billed Treatment 1 visit EVM 30' EX 15' FA 15' JOSIE HAWKINS PT Feb 25, 2021 09:57
--- NOTE | 2021-02-25 10:06 | Occupational Therapy Eval ---
OT Evaluation-General/PLF Medical Diagnosis Admission Date Feb 24, 2021 at 16:39 Medical Diagnosis: CVA Onset Date: February 15, 2021 Therapy Diagnosis Therapy Diagnosis: decreased ADL Status Height/Weight Height (Feet): 5 Height (Inches): 4.00 Weight (Pounds): 182 Weight (Ounces): 0.6 Precautions Precautions/Isolations: Contact Isolation, Fall Prevention, Standard Precautions, Pressure Ulcer Referral Physician: Compa Referral Reason: Evaluation/Treatment Medical History Pertinent Medical History: Atrial Fib, Arthritis, HTN Additional Medical History asthma, OA, afib, HTN, pacemaker Current History L M1 ischemic stroke, s/p TPA. Admitted to [facility] for continued medication management and skilled therapy. Social History Current Living Status: Children Pt reports she lives with her son, she is unable to state if it is 1 story, multilevel, or apartment. ADL-Prior Level of Function SCALE: Activities may be completed with or without assistive devices. 3-Eoggsnnoyu-uxybwuq completes the activity by him/herself with no assistance from a helper. 5-Set-up or Clean-up Assistance-helper sets up or cleans up; patient completes activity. [place] assists only prior to or following the activity. 4-Supervision or Touching Assistance-helper provides verbal cues and/or touching/steadying and/or contact guard assistance as patient completes activity. Assistance may be provided throughout the activity or intermittently. 3-Partial/Moderate Assistance-helper does LESS THAN HALF the effort. [place] lifts, holds or supports trunk or limbs, but provides less than half the effort. 2-Substantial/Maximal Assistance-helper does MORE THAN HALF the effort. [place] lifts or holds trunk or limbs and provides more than half the effort. 5-Bqftrhwzd-fflykf does ALL the effort. Patient does none of the effort to complete the activity. Or, the assistance of 2 or more helpers is required for the patient to complete the activity. If activity was not attempted, code reason: 7-Patient Refused. 9-Not Applicable-not attempted and the patient did not perform the activity before the current illness, exacerbation or injury. 10-Not Attempted due to Environmental Limitations-(lack of equipment, weather restraints, etc.). 88-Not Attempted due to Medical Conditions or Safety Concerns. ADL PLOF Comments Pt reports IND with ADLs at OF, using walker for functional mobility. Pt unable to recall information about home set up, unsure if she has a walk in shower vs tub/shower. Self Care: Independent Functional Cognition: Unknown OT Current Status Subjective Pt seated in recliner, agreeable to OT Tx. Pt verbalizes pain in knees with transfers, does not rate. Crepitus noted bilateral knees. Pt unable to state where she is, when redirected to being in the hospital, OT asked pt how long she has been in a hospital to which she replied "a few years". Mental Status/Objective Patient Orientation: Person, Confused Current Glasses/Contacts: Yes Hearing Aids: No Dentures/Partials: No Hand Dominance: Left Upper Extremity ROM BUE WFL, RUE shoulder flexion to approx 140 degrees, LUE to approx 150 degrees Upper Extremity Coordination WFL Upper Extremity Sensation Pt denies tingling/numbness Upper Extremity Strength grossly 3+/5 BUEs ADL-Treatment Eating (QC): 5 (Assist to open containers) Oral Hygiene (QC): 4 (CGA at sink, min cues for sequencing) Shower/Bathe Self (QC): 4 (Pt required moderate verbal cues for sequencing throughout shower. Pt able to wash/dry all parts) Upper Body Dressing (QC): 4 (SBA) Lower Body Dressing (QC): 3 (Pt doffed pants with increased time. Pt able to thread LLE into brief, assist with RLE, pt performed pant hike with min cues.) On/Off Footwear (QC): 3 (Pt able to doff bilateral gripper socks, assist to thread over toes, pt then able to manage up. Mod A overall) Toileting Hygiene (QC): 3 (Pt able to manage pants down, slight assist with hygiene for thoroughness, pt completed pant hike. Mod verbal cues for sequencing. ) Pt required verbal cues for sequencing throughout ADL session Other Treatments Pt seated in recliner, OT educated pt on purpose and benefit of OT. Pt unable to provide much information about PLOF and home set up. Pt participated in UE screen. Pt used FWW to ambulate into bathroom and onto toilet. She completed toileting, doffed pants, then transferred to SC. Pt doffed remaining clothes, completed shower, then donned clothes. Pt stood at sink for oral care, with task, pt states she isn't able to stand, but with encouragement stands for task. Pt then transferred to recliner. Post tx, pt seated in recliner, call light in reach and all needs met. Chair alarm activated. CGA sit <-> stand transfers and CGA functional mobility using FWW Education OT Patient Education: Correct positioning, Modified ADL techniques, Progress toward Goal/Update tx plan, Purpose of tx/functional activities Teaching Recipient: Patient Teaching Methods: Discussion Response to Teaching: Reinforcement Needed OT Short Term Goals Short Term Goals Time Frame: Mar 04, 2021 Oral hygiene: 5 Toileting hygiene: 5 OT Longterm Goals Longterm Goals Time Frame: Mar 18, 2021 Eating (QC): 6 Oral Hygiene (QC): 6 Toileting Hygiene (QC): 6 Shower/Bathe Self (QC): 4 Upper Body Dressing (QC): 5 Lower Body Dressing (QC): 4 On/Off Footwear (QC): 4 Additional Goals: 1-Demonstrate ADL Tasks, 2-Verbalize Understanding, 3- ImproveStrength/Katherine 1=Demonstrate adherence to instructed precautions during ADL tasks. 2=Patient will verbalize/demonstrate understanding of assistive devices/modifications for ADL. 3=Patient will improve strength/tolerance for activity to enable patient to perform ADL's. OT Education/Plan Problem List/Assessment Assessment: Decreased Activ Tolerance, Decreased Safety Aware, Decreased UE St rength, Impaired Funct Balance, Impaired I ADL's, Impaired Self-Care Skills Discharge Recommendations Plan/Recommendations: Continue POC Treatment Plan/Plan of Care Patient would benefit from OT for education, treatment and training to promote independence in ADL's, mobility, safety and/or upper extremity function for ADL's. Plan of Care: ADL Retraining, Functional Mobility, Group Exercise/Act as Ind, UE Funct Exercise/Act Treatment Duration: Mar 18, 2021 Frequency: At least 5 of 7 days/Wk (IRF) Estimated Hrs Per Day: 1.5 hours per day Agreement: Yes Rehab Potential: Fair Time/GCodes Start Time: 08:00 Stop Time: 09:00 Total Time Billed (hr/min): 60 Billed Treatment Time 1, EVM (10'), ADL 3 (50') YANELI JONES OT Feb 25, 2021 10:06
[2021-02-25] MEDS: NAPHA/PHEN (NAPHCON-A, OPCON-A) OP SOLN 15 ML BTL OS SCH ×4 (10:49→20:11)
--- NOTE | 2021-02-25 11:47 | ST Cognitive Linguistic Eval ---
Speech Evaluation-General Medical Diagnosis CVA Onset Date: February 15, 2021 Therapy Diagnosis Therapy Diagnosis: Cognitive-communication Referral Referring Physician: Dr. Chatman Medical History Pertinent Medical History: Atrial Fib, Arthritis, HTN Reviewed History: Yes Social History Current Living Status: Children Speech PLF-Current Status Prior Level of Function The patient lived at home with her disabled son whom she states is able to assist her with her daily needs. Subjective Patient was cooperative with the cognitive assessment, completed at bedside. The patient was noted to repeat statements related to her previous living situation. She was apparently living in a NH in the [facility]. She states that " they didn't do anything for me and just let me lay there". She was focused on this prior situation and had to be frequently redirected to the assessment. Language Eval: Auditory Comprehends Simple Yes/No Ques: Functional Indent/Objects Multiple [place]: Functional Ident/Pics in Multiple [place]: Functional Follows 1-Step Commands: Functional Follows Complex Directions: Mild Follows General Conversations: Mild Language Eval: Verbal Language Completes Spontaneous Greeting: Functional Produces Auto, Serial Info: Mild Imitates Simple Words/Phrases: Mild Word Finding: Moderate Requests Basic Needs: Functional States Basic Personal Info: Functional Expresses Complex Ideas: Moderate Objective Cognitive Domain Attention: Moderate Memory: Mild Problem Solving: Mild Executive Functions: Mild Visuospatial Skills: WNL Composite Severity Rating: Moderate Clock Drawing Severity Rating: Mild Objective Formal/Standardized Tests [facility] Mental Status ([facility]) Results 14/30, Moderate Dementia range of function Oral Motor/Speech Production Within Normal Limits Impression Patient is a 81 y/o female who was admitted to the ARU s/p CVA with debility. Patient was given the SLUMS at bedside with a score of 14/30 obtained. This score is within the Moderate Dementia range of function. This indicates the need for ST services which will focus on safety awareness, memory and problem solving. Speech Patient Assess Expression of Ideas/Wants: Frequently (2) Understanding Verbal Content: Sometimes Understands(2) Brief Interview-Mental Status: Yes Repetition of Three Words: Two (2) Temporal Orientation: Year: Correct (3) Temporal Orientation: Month: Accurate within 5 days(2) Temporal Orientation: Day: Correct (1) Recall : Wear to say "Sock": No, could not recall (0) Recall : Color: No, could not recall (0) Recall : Bed: No, could not recall (0) Memory/Recall Ability: Current season, That he or she is in a hsp/hsp unit Speech Short Term Goals Short Term Goals Short Term Goals 1) Patient will complete memory tasks related to her daily needs at 80% or greater with minimal cuing. 2) Patient will complete safety awareness tasks related to her daily needs at 80% or greater with minimal cuing. 3) Patient will complete problem solving tasks related to her daily needs at 80% or greater with minimal cuing. Speech Surgery Consultant Goals Care Home Goals Patient will improve cognitive-communication abilities so that she is able to complete daily tasks with decreased assist. Speech-Plan Patient/Family Goals Patient/Family Goals: Patient plans on returning to her home where she lives with her son. Treatment Plan Speech Therapy Treatment Plan: Continue Plan of Care Treatment Duration: Mar 11, 2021 Frequency: 4 times per week (Patient will receive skilled ST 4-5x per week) Estimated Hrs Per Day: .5 hour per day Rehab Potential: Poor Barriers to Learning: Cognitive deficits, recent CVA, age Pt/Family Agrees to Plan: Yes Safety Risks/Education Teaching Recipient: Patient Teaching Methods: Discussion Response to Teaching: Verbalize Understanding Education Topics Provided: Patient's safety and communication Time Speech Therapy Time In: 11:00 Speech Therapy Time Out: 11:30 Total Billed Time: 30 Billed Treatment Time 1, PENELOPE MCKEON [address] Feb 25, 2021 11:47
--- NOTE | 2021-02-25 12:32 | Consultation-Cardiology ---
HPI-Cardiology Cardiology Consultation: Date of Consultation 02/25/21 Time Seen by a Provider: 09:30 Date of Admission Attending Physician Audelia Chatman DO Admitting Physician Jason Boudreaux MD Consulting Physician KIA STILL MD, MA, FACP, FAC, [facility], [facility] Physician requesting Cardiology consult: Dr Chatman HPI: Chief Complaint: Reason for consultation: H/O A Fib and CVA HPI Ms. Salazar is a 81 yr old female admitted to IRU [address]. We have rev iewed the extensive records from [facility]. She presented to [facility] on 02-15-21 with acute stroke and was subsequently transferred to [facility] for treatment. She has been transferred back to [facility] IRU under the care of Dr. Chatman for re-hab services. She is currently sitting up in a recliner at the bedside. She does not report any pain, except bilat knee pain. She is oriented to self only. She is awake and moving all extremities. Review of Systems-Cardiology Review of Systems Constitutional: other (Pt is confused and is not able to provide a meaningful history or ROS) HYE-Hkapnu-Rxbsda Hx Patient Social History Marrital Status: single Employed/Student: retired Smoking Status: Unknown if Ever Smoked Immunizations Up To Date Date of Pneumonia Vaccine: Oct 30, 2016 Date of Influenza Vaccine: Jun 24, 2020 Past Medical History PMH As described under Assessment. Family Medical History Family Medical History: Unable to obtain Allergies and Home Medications Allergies Coded Allergies: doxycycline (Unverified Allergy, Mild, 11/26/17) Home Medications Albuterol Sulfate 1 Puff Puff, 4 PUFF IH Q8H PRN for SHORTNESS OF BREATH, (Reported) Last Action: Continued Amitriptyline HCl 25 Mg Tablet, 25 MG PO HS, (Reported) Last Action: Continued Apixaban 5 Mg Tablet, 5 MG PO BID, (Reported) Last Action: Continued Carvedilol 6.25 Mg Tablet, 6.25 MG PO BID, (Reported) Last Action: Continued Cefpodoxime Proxetil 200 Mg Tablet, 200 MG PO BID, (Reported) TAKE WITH FOOD KU DISCHARGE SAYS TO TAKE FOR 3 DAYS Last Action: Converted Citalopram Hydrobromide 10 Mg Tablet, 10 MG PO DAILY, (Reported) Last Action: Continued Fluticasone/Vilanterol 1 Each Blst.w.dev, 1 PUFF IH DAILY, (Reported) Last Action: Continued Furosemide 40 Mg Tablet, 40 MG PO DAILY, (Reported) Last Action: Continued Gabapentin 300 Mg Capsule, 300 MG PO TID, (Reported) Last Action: Continued Latanoprost 2.5 Ml Drops, 1 DROP OU HS, (Reported) Last Action: Continued Lisinopril 5 Mg Tablet, 5 MG PO DAILY, (Reported) Last Action: Continued Naphazoline/Pheniramine 15 Ml Soln, 1 DROP OS QID, (Reported) Last Action: Continued Potassium Chloride 20 Meq Tablet.er, 20 MEQ PO DAILY, (Reported) Last Action: Converted Ropinirole HCl 1 Mg Tablet, 1 MG PO HS, (Reported) Last Action: Continued Rosuvastatin Calcium 20 Mg Tablet, 20 MG PO DAILY, (Reported) Last Action: Continued Spironolactone 25 Mg Tablet, 12.5 MG PO DAILY, (Reported) TAKE WITH FOOD TAKE OF A 25MG TAB Last Action: Continued Tramadol HCl 50 Mg Tablet, 50 MG PO Q12H PRN for PAIN-MODERATE (5-7), (Reported) Last Action: Continued Patient Home Medication List Home Medication List Reviewed: Yes Physical Exam-Cardiology Physical Exam Vital Signs/I&O 02/25/21 02/25/21 02/25/21 07:58 08:00 09:00 Temp 36.8 Pulse 61 Resp 25 B/P (MAP) 127/63 (84) Pulse Ox 96 94 O2 Delivery Room Air Room Air Room Air Capillary Refill : Constitutional: No AAO x 3; well-developed, well-nourished HEENT: hearing is well preserved, oral hygience is good Neck: No carotid bruit Respiratory: No accessory muscle use, No respiratory distress; chest expansion is symmetric, chest is bilaterally symmetric, lungs clear to auscultation Cardiovascular: regular rate-rhythm; No JVD; S1 and S2, systolic murmur (2-3/6 MSM) Gastrointestinal: audible bowel sounds Extremities: no lower extremity edema bilateral Neurologic/Psychiatric: other (oriented to self only; moves all extremities; delayed speech) Skin: No rash on exposed areas, No ulcerations on exposed areas Data Review Labs Laboratory Tests 02/25/21 05:05: White Blood Count 9.4, Red Blood Count 4.28, Hemoglobin 12.4, Hematocrit 39, Aretha n Corpuscular Volume 91, Mean Corpuscular Hemoglobin 29, Mean Corpuscular Hemoglobin Concent 32, Red Cell Distribution Width 16.6H, Platelet Count 284, Mean Platelet Volume 12.0, Immature Granulocyte % (Auto) 0, Neutrophils (%) (Auto) 52, Lymphocytes (%) (Auto) 27, Monocytes (%) (Auto) 7, Eosinophils (%) (Auto) 13H, Basophils (%) (Auto) 0, Neutrophils # (Auto) 4.9, Lymphocytes # (Auto) 2.5, Monocytes # (Auto) 0.7, Eosinophils # (Auto) 1.3H, Basophils # (Auto) 0.0, Immature Granulocyte # (Auto) 0.0, Sodium Level 141, Potassium Level 4.3, Chloride Level 105, Carbon Dioxide Level 25, Anion Gap 11, Blood Urea Nitrogen 29H, Creatinine 0.91, Estimat Glomerular Filtration Rate 60, B UN/Creatinine Ratio 32, Glucose Level 103, Calcium Level 9.5, Corrected Calcium 9.9, Total Bilirubin 1.9H, Aspartate Amino Transf (AST/SGOT) 29, Alanine Aminotransferase (ALT/SGPT) 21, Alkaline Phosphatase 70, Total Protein 6.1L, Albumin 3.5, Smear Scan YES A/P-Cardiology Assessment/Admission Diagnosis 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 Lemos of interventional radiology at [facility] Chronic a-fib documented - had been on OAC with warfarin and was transitioning to Eliquis at time of stroke per records from [facility] Echocardiogram on 02-15-[address] Carrion at [facility] - LVEF 60%; LVH; severe LA enlargement and mod RA enlargement; Mod mitral annular calcification with mild mitral valve stenosis and mild to mod MR; mod aortic valve stenosis with mod AoVR; small pericardial effusion without evidence of chamber compression or tamponade; no intracardiac thrombus seen PPM in place - details unknown Parotid mass incidentally found at [facility] - has undergone w/u and f/u on this during this hospitalization is with Dr Chatman HLD Discussion and Recomendations She is unable to answer any questions regarding her cardiac history - will have nursing check with family and obtain records from where her pervious cardiac care has been EKG today Echocardiogram today d/t documentation in her [facility] records and [facility] records stating aortic valve replacement Carotid u/s today d/t reported occlusion of left carotid Continue OAC if ok with Dr. Chatman Monitor lab Replace electrolytes as indicated Further recs will be based on her hospital course We would like to thank Dr. Chatman for this consult KIA STILL MD FACP FAC CCDS Feb 25, 2021 12:32
--- NOTE | 2021-02-25 13:17 | Physical Therapy Daily Note ---
PT Daily Note-Current Subjective Patient is in bed and agrees to PT. Mental Status Patient Orientation: Person Transfers SCALE: Activities may be completed with or without assistive devices. 3-Fwkcnnacan-mqlhtwq completes the activity by him/herself with no assistance from a helper. 5-Set-up or Clean-up Assistance-helper sets up or cleans up; patient completes activity. [place] assists only prior to or following the activity. 4-Supervision or Touching Assistance-helper provides verbal cues and/or touching/steadying and/or contact guard assistance as patient completes activity. Assistance may be provided throughout the activity or intermittently. 3-Partial/Moderate Assistance-helper does LESS THAN HALF the effort. [place] lifts, holds or supports trunk or limbs, but provides less than half the effort. 2-Substantial/Maximal Assistance-helper does MORE THAN HALF the effort. [place] lifts or holds trunk or limbs and provides more than half the effort. 1-Ktzzbkjri-omkmty does ALL the effort. Patient does none of the effort to comp lete the activity. Or, the assistance of 2 or more helpers is required for the patient to complete the activity. If activity was not attempted, code reason: 7-Patient Refused. 9-Not Applicable-not attempted and the patient did not perform the activity before the current illness, exacerbation or injury. 10-Not Attempted due to Environmental Limitations-(lack of equipment, weather restraints, etc.). 88-Not Attempted due to Medical Conditions or Safety Concerns. Lying to Sitting/Side of Bed(Q: 3 Sit to Stand (QC): 2 Chair/Znh-hj-Afvte Xfer(QC): 2 (x 2 sets) Toilet Transfer (QC): 2 (x 2 sets) Patient resistive with sit to stand and SPT bed to w/c to commode secondary to left knee pain (chronic and unable to rate) Exercises Supine Ex: Ankle pumps, Heel Slides, Straight leg raise, Hip abd/add Supine Reps: 12 (AAROM bilateral LE) Seated Therapy Exercises: Ankle pumps, Long arc quads, Hip flexion Seated Reps: 12 (AAROM with hip flexion) Assessment Patient requires time to complete all tasks and was assist with lunch. PT to increase activity as tolerated by patient. PT Short Term Goals Short Term Goals Time Frame: Mar 04, 2021 Roll Left & Right: 6 Sit to lyin Lying to sitting on side of be: 4 Sit to stand: 4 Chair/qny-mt-jcyoq transfer: 4 Walk 10 feet: 4 Walk 50 feet with two turns: 4 PT Coat Room Attendant Goals Detention Goals PT Detention Goals Time Frame: Mar 18, 2021 Roll Left & Right (QC): 6 Sit to Lying (QC): 6 Lying-Sitting on Side/Bed(QC): 6 Sit to Stand (QC): 4 (SBA) Chair/Bgv-dv-Ezidy Xfer(QC): 4 (SBA) Toilet Transfer (QC): 4 (SBA) Car Transfer (QC): 4 (SBA) Does the Patient Walk: Yes Walk 10 feet (QC): 4 (SBA) Walk 50ft with 2 Turns (QC): 4 (SBA) Walk 150 ft (QC): 88 Walking 10ft on Uneven Surface: 88 1 Step (curb) (QC): 88 4 Steps (QC): 88 12 Steps (QC): 88 Picking up an Object (QC): 88 Wheel 50 feet with 2 turns (QC: 5 Wheel 150 feet: 5 PT Plan Treatment/Plan Treatment Plan: Continue Plan of Care Treatment Plan: Bed Mobility, Education, Functional Activity Katherine, Functional Strength, Group Therapy, Gait, Safety, Therapeutic Exercise, Transfers Treatment Duration: Mar 18, 2021 Frequency: At least 5 of 7 days/Wk (IRF) Estimated Hrs Per Day: 1.5 hours per day Patient and/or Family Agrees t: Yes Time/GCodes Time In: 1215 Time Out: 1300 Total Billed Treatment Time: 45 Total Billed Treatment 1 visit EX 14 min FA x 2 31 min CHRISTI BOYLE PT Feb 25, 2021 13:17
--- NOTE | 2021-02-25 14:35 | Therapy Group Daily Note ---
Therapy Daily Group Note Patient Education Topic Other List Below (hospital bed, safe transfers) Exercises LE Seated Exercise, UE Exercise Session Ratio (pt:therapist): 6:2 Goal of Session: UE/LE Strengthing, Safety with Transfers Goal Met for this Session: Yes Pt Benefit of Group: Contributions to Others, Increased Functional Safety, Increased Functional Strength, Improved Cognition, Recognition of Peers, Socialization Other/Notes Using w/c was transported to OT/PT group at [facility]. Group consisted of introductions(name, place born, first memory), socialization, B UE/LE exe rcises and education on safe transfers/hospital bed. Pt introduced self appropriately and actively listened to peers. Pt able to complete B UE/LE seated exercises with only verbal cues for correct technique. Pt acknowledged understanding of educational topics by giving own examples. 5 words given for memory task-dog, hilda, 6, burrito, guitar. After session, pt lying in bed with call light/phone in reach. All needs met in room. Start Time: 13:00 Stop Time: 14:00 Total Billed Treatment Time: 60 Total Billed Treatment 1-GRP RUPINDER ANGULO Feb 25, 2021 14:34
--- NOTE | 2021-02-25 15:10 | Occupational Ther Daily Note ---
OT Current Status-Daily Note Subjective Pt finishes with abby ALONZO. Pt's daughter and family friend present during session. Pt agrees to tx, desires to get OOB. ADL-Treatment Therapy Code Descriptions/Definitions Functional [place] Measure: 0=Not Assessed/NA 4=Minimal Assistance 1=Total Assistance 5=Supervision or Setup 2=Maximal Assistance 6=Modified [place] 3=Moderate Assistance 7=Complete IndependenceSCALE: Activities may be completed with or without assistive devices. 1-Bdnsxaxwbl-pgrqpjq completes the activity by him/herself with no assistance from a helper. 5-Set-up or Clean-up Assistance-helper sets up or cleans up; patient completes activity. [place] assists only prior to or following the activity. 4-Supervision or Touching Assistance-helper provides verbal cues and/or touching/steadying and/or contact guard assistance as patient completes act ivity. Assistance may be provided throughout the activity or intermittently. 3-Partial/Moderate Assistance-helper does LESS THAN HALF the effort. [place] lifts, holds or supports trunk or limbs, but provides less than half the effort. 2-Substantial/Maximal Assistance-helper does MORE THAN HALF the effort. [place] lifts or holds trunk or limbs and provides more than half the effort. 8-Ipspjscwf-uaylzv does ALL the effort. Patient does none of the effort to complete the activity. Or, the assistance of 2 or more helpers is required for the patient to complete the activity. If activity was not attempted, code reason: 7-Patient Refused. 9-Not Applicable-not attempted and the patient did not perform the activity before the current illness, exacerbation or injury. 10-Not Attempted due to Environmental Limitations-(lack of equipment, weather restraints, etc.). 88-Not Attempted due to Medical Conditions or Safety Concerns. Eating (QC): 6 Oral Hygiene (QC): 7 Toileting Hygiene (QC): 7 Toilet Transfer (QC): 7 Other Treatment Pt bed mob with SBA, completes threading LB dressing EOB with min cues. Sit to stand with CGA, requires min A for righting in stance and min A placing briefs over hips. Pt then able to ambulate with CGA/ no LOB during ambulation to chair. Mod control during sit. Pt completes word making/ scrabble game with daughter and OT. Pt able to originate her own words 2x without cues. Pt's daughter has pt read multiple words with good accuracy. Pt's mathew instructs pt to make multiple words out of few letters. Pt unable to follow cues and states, "I can't, I'm getting jumbled," after a while. Pt's daughter is educated on benefits of minimal cues over a long period of time to encourage thought processing due to increased processing time and likely becoming overwhelmed. Pt denies going back to bed. Chair alarm on, all needs met, call light in reach, pt and daughter educated on need to press call light if desire to get back to bed/ bathroom. Education OT Patient Education: Correct positioning, Home exercise program, Progress toward Goal/Update tx plan, Purpose of tx/functional activities, Safety issues, Transfer techniques Teaching Recipient: Patient, Family Teaching Methods: Demonstration, Discussion Response to Teaching: Verbalize Understanding, Return Demonstration, Reinforcement Needed OT Short Term Goals Short Term Goals Time Frame: Mar 04, 2021 Oral hygiene: 5 Toileting hygiene: 5 OT Senior Living Goals [employer] Goals Time Frame: Mar 18, 2021 Eating (QC): 6 Oral Hygiene (QC): 6 Toileting Hygiene (QC): 6 Shower/Bathe Self (QC): 4 Upper Body Dressing (QC): 5 Lower Body Dressing (QC): 4 On/Off Footwear (QC): 4 Additional Goals: 1-Demonstrate ADL Tasks, 2-Verbalize Understanding, 3- ImproveStrength/Katherine 1=Demonstrate adherence to instructed precautions during ADL tasks. 2=Patient will verbalize/demonstrate understanding of assistive devices/modifications for ADL. 3=Patient will improve strength/tolerance for activity to enable patient to perform ADL's. OT Education/Plan Problem List/Assessment Assessment: Decreased Activ Tolerance, Decreased UE Strength, Dependent Transfers, Impaired Cognition, Impaired Funct Balance, Impaired I ADL's, Impaired Self-Care Skills Discharge Recommendations Plan/Recommendations: Continue POC Therapy Discharge Recommendati: Assisted Living, Post Acute OT Treatment Plan/Plan of Care Treatment,Training & Education: Yes Patient would benefit from OT for education, treatment and training to promote independence in ADL's, mobility, safety and/or upper extremity function for ADL's. Plan of Care: ADL Retraining, Functional Mobility, Group Exercise/Act as Ind, UE Funct Exercise/Act Treatment Duration: Mar 18, 2021 Frequency: At least 5 of 7 days/Wk (IRF) Estimated Hrs Per Day: 1.5 hours per day Agreement: Yes Rehab Potential: Poor Time/GCodes Start Time: 14:30 Stop Time: 15:00 Total Time Billed (hr/min): 30 Billed Treatment Time 1, FA 2 (30) TERRENCE HARDY OTR Feb 25, 2021 15:10
--- NOTE | 2021-02-25 15:10 | Diagnostic Imaging Report ---
PROCEDURE: US carotid duplex, bilateral. TECHNIQUE: Multiple real-time grayscale images were obtained over the carotid arteries in various projections, bilaterally. Additional spectral analysis and color Doppler duplex images were also obtained. INDICATION: CVA. There are no prior carotid Doppler examinations available for comparison. The CTA head and neck exam of 02/14/2021 noted extensive areas of occlusion or near occlusion involving the left internal carotid artery. There is no hemodynamically significant stenosis of the right carotid system. On this study there is heavy hard plaque formation involving the distal common carotid and proximal internal carotid artery on the left. This does limit the evaluation of these vessels. The ICA/CCA ratio is slightly elevated at 2.4. This suggests a stenosis in the 50-69% range. Parameters based on the consensus panel Padilla-Scale and Doppler ultrasound criteria published July 2003, Radiology, Volume 229. DOPPLER (peak systolic velocity M/S There is no evidence for a hemodynamically significant stenosis of the right carotid system. Both vertebral arteries were identified and there was antegrade flow bilaterally. IMPRESSION: 1. There is extensive atherosclerotic plaque involving the carotid system on the left. There does appear to be narrowing of the origin of the internal carotid artery and the stenosis is estimated to be in the 50-69% range. 2. There is no hemodynamically significant stenosis of the right carotid system. Right Left CCA .76 .53 ICA Proximal .46 .65 ICA Mid .36 .78 ICA Distal .65 1.3 RATIO .85 2.4 ECA .60 .76 VERT .55 .44 Dictated by: Dictated on workstation # [id number]
[2021-02-25] MEDS: RT--FLUTICASONE/SALMETEROL 232-14 (AIRDUO RespiCLICK) IH SCH (18:44)
[2021-02-25] MEDS: LATANOPROST 0.005% (XALATAN) OPHTH SOLN 2.5 ML OU SCH (20:11)
[2021-02-25] MEDS: AMITRIPTYLINE 25 MG (ELAVIL) TAB PO SCH (20:11)
[2021-02-25] MEDS: rOPINIRole 1 MG (REQUIP) TABLET PO SCH (20:12)
[2021-02-25 20:21] VITALS: BP 118/56
[2021-02-26] MEDS: KCL 20 MEQ TAB (K-DUR) PO SCH (06:18)
[2021-02-26 07:30] VITALS: BP_SYST 123; BP_SYST 99; BP_DIAS 50; BP_DIAS 59
--- NOTE | 2021-02-26 07:47 | PM&R Progress Note ---
Subjective HPI/CC On Admission Date Seen by Provider: Feb 26, 2021 Time Seen by Provider: 12:00 Subjective/Events-last exam 02/26/2021: Mildly hypotensive so holding blood pressure medication for systolic less than 120 Slept pretty well Having some loose bowel movements so holding laxatives Monitoring closely Currently sleeping 02/25/2021: Patient doing pretty well today Oriented x1 Expressive aphasia makes it difficult to communicate Appreciate cardiology consultation Echocardiogram was performed with bubble test Fall risk prevention Check meds and labs Review of Systems General: Fatigue, Malaise Neurological: Confusion Objective Exam Vital Signs Vital Signs Date Time Temp Pulse Resp B/P (MAP) Pulse Ox O2 Delivery O2 Flow Rate FiO2 02/26/21 10:51 64 116/56 (76) 02/26/21 09:00 Room Air 02/26/21 07:53 93 02/26/21 07:30 36.6 18 Capillary Refill : General Appearance: No Apparent Distress, WD/WN, Chronically ill HEENT: PERRL/EOMI, Normal ENT Inspection, Pharynx Normal Neck: Full Range of Motion, Normal Inspection, Non Tender, Supple, Carotid Bruit Respiratory: Chest Non Tender, Lungs Clear, Normal Breath Sounds, No Accessory Muscle Use, No Respiratory Distress Cardiovascular: Regular Rate, Rhythm, No Edema, No Gallop, No JVD, Normal Peripheral Pulses, Systolic Murmur Gastrointestinal: Normal Bowel Sounds, No Organomegaly, No Pulsatile Mass, Non Tender, Soft Back: Normal Inspection, No CVA Tenderness, No Vertebral Tenderness Extremity: Normal Capillary Refill, Normal Inspection, Normal Range of Motion, Non Tender, No Calf Tenderness, No Pedal Edema Neurologic/Psychiatric: Alert, Oriented x3, No Motor/Sensory Deficits, Normal Mood/Affect, Abnormal Gait, Aphasia, Disoriented, Motor Weakness (Generalized) Skin: Normal Color, Warm/Dry Lymphatic: No Adenopathy Results/Procedures Lab Patient resulted labs reviewed. FIM Transfers Therapy Code Descriptions/Definitions Functional [place] Measure: 0=Not Assessed/NA 4=Minimal Assistance 1=Total Assistance 5=Supervision or Setup 2=Maximal Assistance 6=Modified [place] 3=Moderate Assistance 7=Complete IndependenceSCALE: Activities may be completed with or without assistive devices. 1-Jghbycpnmg-ycvyiuq completes the activity by him/herself with no assistance from a helper. 5-Set-up or Clean-up Assistance-helper sets up or cleans up; patient completes activity. [place] assists only prior to or following the activity. 4-Supervision or Touching Assistance-helper provides verbal cues and/or touching/steadying and/or contact guard assistance as patient completes activity. Assistance may be provided throughout the activity or intermittently. 3-Partial/Moderate Assistance-helper does LESS THAN HALF the effort. [place] lifts, holds or supports trunk or limbs, but provides less than half the effort. 2-Substantial/Maximal Assistance-helper does MORE THAN HALF the effort. [place] lifts or holds trunk or limbs and provides more than half the effort. 2-Zptwaqroc-ifhiat does ALL the effort. Patient does none of the effort to complete the activity. Or, the assistance of 2 or more helpers is required for the patient to complete the activity. If activity was not attempted, code reason: 7-Patient Refused. 9-Not Applicable-not attempted and the patient did not perform the activity before the current illness, exacerbation or injury. 10-Not Attempted due to Environmental Limitations-(lack of equipment, weather restraints, etc.). 88-Not Attempted due to Medical Conditions or Safety Concerns. Roll Left to Right (QC): 6 Sit to Lying (QC): 3 Sit to Stand (QC): 2 Chair/Xbq-gs-Gtfux Xfer(QC): 2 (x 2 sets) Car Transfer (QC): 3 Gait Training Does the Patient Walk?: Yes Walk 10 feet (QC): 4 Walk 50 ft with 2 Turns(QC): 88 Walk 150 ft (QC): 88 Walking 10ft/uneven surface-QC: 88 Gait Assistive Device: FWW Wheelchair Training Does the Pt Use a Wheelchair?: Yes Distance: 150'x2 Wheel 50 ft with 2 turns (QC): 3 Wheel 150 ft (QC): 3 Type of Wheelchair: Manual Stair Training 1 Step (curb) (QC): 88 4 Steps (QC): 88 12 Steps (QC): 88 Balance Picking up an Object (QC): 88 ADL-Treatment Eating (QC): 6 Oral Hygiene (QC): 7 Shower/Bathe Self (QC): 4 Upper Body Dressing (QC): 4 Lower Body Dressing (QC): 3 On/Off Footwear (QC): 3 Toileting Hygiene (QC): 7 Toilet Transfer (QC): 7 Assessment/Plan Assessment and Plan Assess & Plan/Chief Complaint Assessment: CVA Partial aphasia Receptive aphasia Hypertension Aortic stenosis Chronic atrial fibrillation Memory loss Debility History of Covid Plan: Cardiology consult Inpatient rehab protocol Aggressive therapy Fall risk 02/25/2021: Fall risk prevention Increase independence in ADLs Appreciate cardiology 02/26/2021: Monitor closely Fall risk Monitor confusion (1) CVA (cerebral vascular accident) (2) Right sided weakness Status: Acute (3) Aphasia Status: Acute (4) Debility Status: Acute (5) Delirium Status: Acute MAAME LOMBARDO DO Feb 26, 2021 07:47
--- NOTE | 2021-02-26 07:48 | Individualized Plan of Care ---
Individualized Plan of Care Rehab Nursing IPOC Order Admission Date Feb 24, 2021 at 16:39 Current Orders Orders Admission Order(Inpt,Obs,Sdc) (02/24/21 13:08) Vital Signs: Per Unit Policy ( (02/24/21 13:08) Octaviano Lockwood (02/24/21 13:08) Sequential Compression Device .admit (02/24/21 13:08) Multicultural Internship-Inpt Rehab Con (02/24/21 13:08) Rehab Nursing Orders-Ipoc (02/24/21 13:08) Physical Therapy Rehab Orders (02/24/21 13:08) Occupational Therapy Rehab Ord (02/24/21 13:08) Speech Therapy Rehab Orders (02/24/21 13:08) Cbc With Automated Diff (02/25/21 06:00) Comprehensive Metabolic Panel (02/25/21 06:00) Precautions (Aru) (02/24/21 13:08) Rehab-Intensity Of Therapy (02/24/21 13:08) Initiate Admission Nursing Pro .admission (02/24/21 13:08) Acetaminophen Tablet/Caplet (Tylenol T (02/24/21 13:15) Alprazolam Tablet (Xanax Tablet) (02/24/21 13:15) Calcium Carbonate Chew Tablet (Antacid C (02/24/21 13:15) Diphenhydramine Tablet (Benadryl Tablet) (02/24/21 13:15) Docusate Sodium Capsule (Colace Capsule) (02/24/21 21:00) Docusate Sodium Capsule (Colace Capsule) (02/24/21 13:15) Bisacodyl Suppository (Dulcolax Supposit (02/24/21 13:15) Lactulose Oral Solution (Enulose Oral So (02/24/21 13:15) Na Phos/Na Biphos Enema (Fleet Enema Humberto (02/24/21 13:15) Guaifenesin/Codeine Syrup (Robitussin Ac (02/24/21 13:15) Loperamide Tablet (Imodium Tablet) (02/24/21 13:15) Melatonin Tablet (Melatonin Tablet) (02/24/21 13:15) Polyethylene Glycol Powder Pkt (Miralax (02/24/21 21:00) Ondansetron Oral Dissolve Tab (Zofran (02/24/21 13:15) Senna S Tablet (Senokot S Tablet) (02/24/21 21:00) Initiate Admission Nursing Pro .admission (02/24/21 13:08) Transfer - Bed/Room/Location (02/24/21 16:39) General/Regular (02/24/21 Dinner) Albuterol Pre-Mix Nebs (Rt) (Proventil (02/24/21 18:15) Amitriptyline Tablet (Elavil Tablet) (02/24/21 21:00) Apixaban Tablet (Eliquis Tablet) (02/24/21 21:00) Carvedilol Tablet (Coreg Tablet) (02/24/21 21:00) Citalopram Tablet (Celexa Tablet) (02/25/21 09:00) Fluticasone/Vilanterol 200 Mcg (Breo Ell (02/25/21 09:00) Furosemide Tablet (Lasix Tablet) (02/25/21 09:00) Gabapentin Capsule/Tablet (Neurontin Cap (02/24/21 21:00) Latanoprost 0.005% Ophth Soln (Xalatan 0 (02/24/21 21:00) Lisinopril Tablet (Zestril Tablet) (02/25/21 09:00) Naphazoline/Pheniramine Ophth (Naphcon-A (02/24/21 21:00) Ropinirole Tablet (Requip Tablet) (02/24/21 21:00) Rosuvastatin Tablet (Crestor Tablet) (02/25/21 09:00) Spironolactone Tablet (Aldactone Tablet) (02/25/21 08:00) Tramadol Tablet (Ultram Tablet) (02/24/21 18:15) (Nf) Cefpodoxime Proxetil (02/24/21 21:00) (Nf) Potassium Chloride (02/25/21 09:00) Potassium Chloride (Tablet) (K Dur Table (02/25/21 07:00) Fluticasone/Salmeterol 232-14 (Airduo Re (02/25/21 08:00) Cefdinir Capsule (Omnicef Capsule) (02/24/21 21:00) Ziprasidone Injection (Geodon Injection) (02/24/21 21:30) Water (Sterile) For Injection (Sterile W (02/24/21 21:30) Haloperidol Injection (Haldol Injectio (02/24/21 21:30) Lorazepam Injection (Ativan Injection) (02/24/21 21:30) Consult Cardiology (02/25/21 06:22) Ekg Tracing (02/25/21 10:08) Echo W Doppler/Color Flow (02/25/21 10:08) Us Carotid Anthony Complete [id number] (02/25/21 10:08) Patient Visit (02/25/21 ) Pt Eval Moderate Complexity (02/25/21 ) Functional Activities, Ea 15 (02/25/21 ) Exercise Therap, Ea 15 Min (02/25/21 ) Patient Visit (02/25/21 ) Exercise Therap, Ea 15 Min (02/25/21 ) Functional Activities, Ea 15 (02/25/21 ) Patient Visit (02/25/21 ) Patient Visit (02/25/21 ) Speech Sound Lang Comp (02/25/21 ) Treat. Speech/Lang/Voice (02/25/21 ) Patient Visit (02/26/21 ) Exercise Therap, Ea 15 Min (02/26/21 ) Ex Neuromuscular, Ea 15 Min (02/26/21 ) Functional Activities, Ea 15 (02/26/21 ) Rehab Nursing Orders: Ongoing Assess. of Cognitive Status, Ongoing Assess. of Function Status, Bladder Management, Bladder Scan, Bladder Training, Bowel Management, Bowel Training, Disease Management & Educaiton, DVT Prophylaxis, Fall Prevention, Fluid/Electrolyte/Nutrition Mgmt, Infection Prevention, Medication Management & Education, Management of Risks & Complications, Nutrition Management, Pain Management, Patient/Family Support, Safety Gogo gement, Swallow Precautions Intensity of Therapy to be met Patient to be seen: Min.3h per day/5 of 7d PT IPOC Problem List: Activity Tolerance, Functional Strength, Safety, Balance, Gait, Transfer, Bed Mobility, ROM Treatment Plan: Continue Plan of Care Bed Mobility, Education, Functional Activity Katherine, Functional Strength, Group Therapy, Gait, Safety, Therapeutic Exercise, Transfers Treatment Duration: Mar 18, 2021 Frequency: At least 5 of 7 days/Wk (IRF) Estimated Hrs Per Day: 1.5 hours per day OT IPOC Problems: Decreased Activ Tolerance, Decreased UE Strength, Dependent Transfers, Impaired Cognition, Impaired Funct Balance, Impaired I ADL's, Impaired Self-Care Skills OT Treatment, Training and Edu: Yes Plan of Care: ADL Retraining, Functional Mobility, Group Exercise/Act as Ind, UE Funct Exercise/Act Treatment Duration: Mar 18, 2021 Frequency: At least 5 of 7 days/Wk (IRF) Estimated Hrs Per Day: 1.[address] IPOC Speech Therapy Treatment Plan: Continue Plan of Care Treatment Duration: Mar 11, 2021 Frequency: 4 times per week (Patient will receive skilled ST 4-5x per week) Estimated Hrs Per Day: .5 hour per day Multicultural Internship/Case Mgmt Multicultural Internship/Case Managemen: Discharge Planning Dietitian/Sql Bi Developer Dietitian/Sql Bi Developer to monitor nutritional status and make changes and/or recommendations as needed and work with speech pathology on dietary upgrades as the occur. Physician IPOC Medical Issues being managed closely and that require the 24 hour availability of a physician: Recent stroke with cardiac dysfunction requiring cardiology consultation close monitoring for decompensation will require 24/7 physician supervision Medical Issues: Bowel/Bladder Function, DVT Prophylaxis, Falls Precautions, Fluid/Electrolyte/Nutrition Balance, Infection Protection, Pain Management Brief Synthesis of Preadmission Screen, Post-Admission Evaluation, and Therapy Evaluations: PT and OT and speech therapy will all evaluate him aggressively treat the patient to regain function of ADLs and ambulatory skills and work on cognition and retention of information Medical Prognosis: Fair Anticipated Length of Stay: 14 days MAAME LOMBARDO DO Feb 26, 2021 07:48
[2021-02-26] MEDS: RT--FLUTICASONE/SALMETEROL 232-14 (AIRDUO RespiCLICK) IH SCH ×2 (07:52→18:59)
[2021-02-26] MEDS: lisINopril 5 MG (PRINIVIL) TABLET PO SCH (09:00)
[2021-02-26] MEDS: APIXABAN 5 MG (ELIQUIS) TABLET PO SCH ×2 (09:24→20:09)
[2021-02-26] MEDS: GABAPENTIN 300 MG (NEURONTIN) CAP PO SCH ×3 (09:24→20:09)
[2021-02-26] MEDS: ROSUVASTATIN 20 MG (CRESTOR) TABLET PO SCH (09:24)
[2021-02-26] MEDS: FUROSEMIDE 40 MG (LASIX) TAB PO SCH (09:24)
[2021-02-26] MEDS: CEFDINIR 300 MG (OMNICEF) CAP PO SCH ×2 (09:24→20:09)
[2021-02-26] MEDS: SPIRONOLACTONE 25 MG (ALDACTONE) TAB PO SCH (09:25)
[2021-02-26] MEDS: polyethylene glycoL POWDER 17 GM (MIRALAX) PACK PO SCH ×2 (09:27→19:25)
[2021-02-26] MEDS: DOCUSATE SODIUM 100 MG (COLACE) CAP PO SCH ×2 (09:27→19:25)
[2021-02-26] MEDS: SENNA W/DOCUSATE (SENOKOT S) TABLET PO SCH ×2 (09:27→19:26)
[2021-02-26] MEDS: NAPHA/PHEN (NAPHCON-A, OPCON-A) OP SOLN 15 ML BTL OS SCH ×4 (09:30→20:10)
[2021-02-26 10:51] VITALS: BP 116/56
--- NOTE | 2021-02-26 11:58 | Physical Therapy Daily Note ---
PT Daily Note-Current Subjective Pt sitting in recliner upon arrival. Pt agrees to PT tx. Pain Numeric Pain Scale: 0-No Pain Location: No Pain Reported Comment: Pt c/o pain in B knees during static standing. Mental Status Patient Orientation: Person, Confused Attachments: Other-See Comments (chair alarm) Transfers SCALE: Activities may be completed with or without assistive devices. 9-Vucbpjbbgn-kuqhofd completes the activity by him/herself with no assistance from a helper. 5-Set-up or Clean-up Assistance-helper sets up or cleans up; patient completes activity. [place] assists only prior to or following the activity. 4-Supervision or Touching Assistance-helper provides verbal cues and/or touching/steadying and/or contact guard assistance as patient completes activity. Assistance may be provided throughout the activity or intermittently. 3-Partial/Moderate Assistance-helper does LESS THAN HALF the effort. [place] lifts, holds or supports trunk or limbs, but provides less than half the effort. 2-Substantial/Maximal Assistance-helper does MORE THAN HALF the effort. [place] lifts or holds trunk or limbs and provides more than half the effort. 4-Sdgxooaoh-ylczla does ALL the effort. Patient does none of the effort to complete the activity. Or, the assistance of 2 or more helpers is required for the patient to complete the activity. If activity was not attempted, code reason: 7-Patient Refused. 9-Not Applicable-not attempted and the patient did not perform the activity before the current illness, exacerbation or injury. 10-Not Attempted due to Environmental Limitations-(lack of equipment, weather restraints, etc.). 88-Not Attempted due to Medical Conditions or Safety Concerns. Sit to Stand (QC): 5 Exercises Seated Therapy Exercises: Ankle pumps, Sit to stand (6), Long arc quads, Hip flexion, Hip abd/add, Glut set Seated Reps: 10 Neuromuscular Worked on static standing balance w/ focus on LE stability, endurance, postural control and WB tolerance. MUD MIXER OPERATOR CGA. Treatments Seated ex completed in recliner. Static balance training completed. Pt sitting in recliner w/ call light and bedside table w/in reach, chair alarm on and all needs met at end of tx. Assessment Current Status: Fair Progress Pt talking about previous facility this date and crying while talking about it. Pt requires VC's and re-direction throughout. PT Short Term Goals Short Term Goals Time Frame: Mar 04, 2021 Roll Left & Right: 6 Sit to lyin Lying to sitting on side of be: 4 Sit to stand: 4 Chair/upf-tx-ywlje transfer: 4 Walk 10 feet: 4 Walk 50 feet with two turns: 4 PT Spanish Interpreter Goals Longterm Goals PT Spanish Interpreter Goals Time Frame: Mar 18, 2021 Roll Left & Right (QC): 6 Sit to Lying (QC): 6 Lying-Sitting on Side/Bed(QC): 6 Sit to Stand (QC): 4 (SBA) Chair/Nxf-ms-Ohxnf Xfer(QC): 4 (SBA) Toilet Transfer (QC): 4 (SBA) Car Transfer (QC): 4 (SBA) Does the Patient Walk: Yes Walk 10 feet (QC): 4 (SBA) Walk 50ft with 2 Turns (QC): 4 (SBA) Walk 150 ft (QC): 88 Walking 10ft on Uneven Surface: 88 1 Step (curb) (QC): 88 4 Steps (QC): 88 12 Steps (QC): 88 Picking up an Object (QC): 88 Wheel 50 feet with 2 turns (QC: 5 Wheel 150 feet: 5 PT Plan Problem List Problem List: Activity Tolerance, Functional Strength, Safety, Balance, Gait, Transfer, Bed Mobility, ROM Treatment/Plan Treatment Plan: Continue Plan of Care Treatment Plan: Bed Mobility, Education, Functional Activity Katherine, Functional Strength, Group Therapy, Gait, Safety, Therapeutic Exercise, Transfers Treatment Duration: Mar 18, 2021 Frequency: At least 5 of 7 days/Wk (IRF) Estimated Hrs Per Day: 1.5 hours per day Patient and/or Family Agrees t: Yes Safety Risks/Education Patient Education: Transfer Techniques, Correct Positioning, Safety Issues Teaching Recipient: Patient Teaching Methods: Discussion Response to Teaching: Verbalize Understanding, Reinforcement Needed Time/GCodes Time In: 1043 Time Out: 1123 Total Billed Treatment Time: 40 Total Billed Treatment 1, Ex (15m), FA (13m), NM (12m) SAMMY TORRES MUD MIXER OPERATOR Feb 26, 2021 11:58
--- NOTE | 2021-02-26 12:15 | Occupational Ther Daily Note ---
OT Current Status-Daily Note Subjective No pain reported. Mental Status/Objective Patient Orientation: Unable to Assess ADL-Treatment Therapy Code Descriptions/Definitions Functional [place] Measure: 0=Not Assessed/NA 4=Minimal Assistance 1=Total Assistance 5=Supervision or Setup 2=Maximal Assistance 6=Modified [place] 3=Moderate Assistance 7=Complete IndependenceSCALE: Activities may be completed with or without assistive devices. 8-Dqfjcxpalh-moczvrq completes the activity by him/herself with no assistance from a helper. 5-Set-up or Clean-up Assistance-helper sets up or cleans up; patient completes activity. [place] assists only prior to or following the activity. 4-Supervision or Touching Assistance-helper provides verbal cues and/or touching/steadying and/or contact guard assistance as patient completes activity. Assistance may be provided throughout the activity or intermittently. 3-Partial/Moderate Assistance-helper does LESS THAN HALF the effort. [place] lifts, holds or supports trunk or limbs, but provides less than half the effort. 2-Substantial/Maximal Assistance-helper does MORE THAN HALF the effort. [place] lifts or holds trunk or limbs and provides more than half the effort. 9-Ywfgzwihk-rbpwle does ALL the effort. Patient does none of the effort to complete the activity. Or, the assistance of 2 or more helpers is required for the patient to complete the activity. If activity was not attempted, code reason: 7-Patient Refused. 9-Not Applicable-not attempted and the patient did not perform the activity before the current illness, exacerbation or injury. 10-Not Attempted due to Environmental Limitations-(lack of equipment, weather restraints, etc.). 88-Not Attempted due to Medical Conditions or Safety Concerns. Upper Body Dressing (QC): 4 Toileting Hygiene (QC): 3 (Mod assist) Toilet Transfer (QC): 3 (Mod assist) Other Treatment Pt. up in chair. She smiles and greets OT. Pt. verbalizes that she has to use the bathroom. Pt. stands with mod assist. Max cues for sequencing and pt. is able to ambulate with min assist and walker to commode. Noted that pt. had dried BM on back of gown. [place] [facility] and OT doffed brief. Pt. able to doff gown and don fresh one with min assist. Toileted with cues and SBA. Pulled up brief with mod assist after standing with mod assist. Transferred back to chair with mod assist. All needs met. Education OT Patient Education: Correct positioning, Modified ADL techniques, Progress toward Goal/Update tx plan, Purpose of tx/functional activities, Reviewed precautions, Rehab process, Transfer techniques Teaching Recipient: Patient Teaching Methods: Demonstration, Discussion Response to Teaching: Verbalize Understanding, Return Demonstration OT Short Term Goals Short Term Goals Time Frame: Mar 04, 2021 Oral hygiene: 5 Toileting hygiene: 5 OT Halfway Goals Ncqa Specialist Goals Time Frame: Mar 18, 2021 Eating (QC): 6 Oral Hygiene (QC): 6 Toileting Hygiene (QC): 6 Shower/Bathe Self (QC): 4 Upper Body Dressing (QC): 5 Lower Body Dressing (QC): 4 On/Off Footwear (QC): 4 Additional Goals: 1-Demonstrate ADL Tasks, 2-Verbalize Understanding, 3-Imp roveStrength/Katherine 1=Demonstrate adherence to instructed precautions during ADL tasks. 2=Patient will verbalize/demonstrate understanding of assistive devices/modifications for ADL. 3=Patient will improve strength/tolerance for activity to enable patient to perform ADL's. OT Education/Plan Discharge Recommendations Plan/Recommendations: Continue POC Treatment Plan/Plan of Care Treatment,Training & Education: Yes Patient would benefit from OT for education, treatment and training to promote independence in ADL's, mobility, safety and/or upper extremity function for ADL's. Plan of Care: ADL Retraining, Functional Mobility, Group Exercise/Act as Ind, UE Funct Exercise/Act Treatment Duration: Mar 18, 2021 Frequency: At least 5 of 7 days/Wk (IRF) Estimated Hrs Per Day: 1.5 hours per day Agreement: Yes Rehab Potential: Fair Time/GCodes Start Time: 11:30 Stop Time: 12:10 Total Time Billed (hr/min): 40 Billed Treatment Time 1, ADL x 40minutes CAMPBELL HAGER OT Feb 26, 2021 12:15
[2021-02-26] MEDS: rOPINIRole 1 MG (REQUIP) TABLET PO SCH (20:09)
[2021-02-26] MEDS: ALPRAZolam 0.25 MG (XANAX) TAB PO PRN (20:09)
[2021-02-26] MEDS: AMITRIPTYLINE 25 MG (ELAVIL) TAB PO SCH (20:09)
[2021-02-26] MEDS: ACETAMINOPHEN 325 MG TABLET PO PRN (20:09)
[2021-02-26] MEDS: LATANOPROST 0.005% (XALATAN) OPHTH SOLN 2.5 ML OU SCH (20:10)
[2021-02-26 20:30] VITALS: BP 103/50
[2021-02-26] MEDS ORDERED: LORazepam INJ 2 MG/ML (ATIVAN) VIAL IM PRN (21:00)
[2021-02-27] MEDS: HYDROcodone/APAP 5 MG/325 MG (LORTAB) TAB PO PRN ×2 (03:46→15:02)
[2021-02-27] MEDS: KCL 20 MEQ TAB (K-DUR) PO SCH (06:07)
[2021-02-27] MEDS: RT--FLUTICASONE/SALMETEROL 232-14 (AIRDUO RespiCLICK) IH SCH ×2 (06:56→18:47)
[2021-02-27 07:30] VITALS: BP 156/69
--- NOTE | 2021-02-27 08:21 | PM&R Progress Note ---
Subjective HPI/CC On Admission Date Seen by Provider: Feb 27, 2021 Time Seen by Provider: 12:30 Subjective/Events-last exam 02/27/2021: Patient doing about the same Complains of left knee pain without injury Patient very cognitive deficient Appears to be very chronically ill 02/26/2021: Mildly hypotensive so holding blood pressure medication for systolic less than 120 Slept pretty well Having some loose bowel movements so holding laxatives Monitoring closely Currently sleeping 02/25/2021: Patient doing pretty well today Oriented x1 Expressive aphasia makes it difficult to communicate Appreciate cardiology consultation Echocardiogram was performed with bubble test Fall risk prevention Check meds and labs Review of Systems General: Fatigue, Malaise Objective Exam Vital Signs Vital Signs Date Time Temp Pulse Resp B/P (MAP) Pulse Ox O2 Delivery O2 Flow Rate FiO2 02/27/21 18:47 93 Room Air 02/27/21 07:30 36.3 63 16 156/69 (98) Capillary Refill : General Appearance: No Apparent Distress, WD/WN, Chronically ill HEENT: PERRL/EOMI, Normal ENT Inspection, Pharynx Normal Neck: Full Range of Motion, Normal Inspection, Non Tender, Supple, Carotid Bruit Respiratory: Chest Non Tender, Lungs Clear, Normal Breath Sounds, No Accessory Muscle Use, No Respiratory Distress Cardiovascular: Regular Rate, Rhythm, No Edema, No Gallop, No JVD, Normal Peripheral Pulses, Systolic Murmur Gastrointestinal: Normal Bowel Sounds, No Organomegaly, No Pulsatile Mass, Non Tender, Soft Back: Normal Inspection, No CVA Tenderness, No Vertebral Tenderness Extremity: Normal Capillary Refill, Normal Inspection, Normal Range of Motion, Non Tender, No Calf Tenderness, No Pedal Edema Neurologic/Psychiatric: Alert, Oriented x3, No Motor/Sensory Deficits, Normal Mood/Affect, Abnormal Gait, Aphasia, Disoriented, Motor Weakness (Generalized) Skin: Normal Color, Warm/Dry Lymphatic: No Adenopathy Results/Procedures Lab Patient resulted labs reviewed. FIM Transfers Therapy Code Descriptions/Definitions Functional [place] Measure: 0=Not Assessed/NA 4=Minimal Assistance 1=Total Assistance 5=Supervision or Setup 2=Maximal Assistance 6=Modified [place] 3=Moderate Assistance 7=Complete IndependenceSCALE: Activities may be completed with or without assistive devices. 7-Rrxsitnvnq-mjcwoeu completes the activity by him/herself with no assistance from a helper. 5-Set-up or Clean-up Assistance-helper sets up or cleans up; patient completes activity. [place] assists only prior to or following the activity. 4-Supervision or Touching Assistance-helper provides verbal cues and/or touching/steadying and/or contact guard assistance as patient completes activity. Assistance may be provided throughout the activity or intermittently. 3-Partial/Moderate Assistance-helper does LESS THAN HALF the effort. [place] lifts, holds or supports trunk or limbs, but provides less than half the effort. 2-Substantial/Maximal Assistance-helper does MORE THAN HALF the effort. [place] lifts or holds trunk or limbs and provides more than half the effort. 8-Fyumewxcv-ssyfyj does ALL the effort. Patient does none of the effort to co mplete the activity. Or, the assistance of 2 or more helpers is required for the patient to complete the activity. If activity was not attempted, code reason: 7-Patient Refused. 9-Not Applicable-not attempted and the patient did not perform the activity before the current illness, exacerbation or injury. 10-Not Attempted due to Environmental Limitations-(lack of equipment, weather restraints, etc.). 88-Not Attempted due to Medical Conditions or Safety Concerns. Roll Left to Right (QC): 6 Sit to Lying (QC): 3 Sit to Stand (QC): 5 Chair/Wjf-vd-Dexqz Xfer(QC): 2 (x 2 sets) Car Transfer (QC): 3 Gait Training Does the Patient Walk?: Yes Walk 10 feet (QC): 4 Walk 50 ft with 2 Turns(QC): 88 Walk 150 ft (QC): 88 Walking 10ft/uneven surface-QC: 88 Gait Assistive Device: FWW Wheelchair Training Does the Pt Use a Wheelchair?: Yes Distance: 150'x2 Wheel 50 ft with 2 turns (QC): 3 Wheel 150 ft (QC): 3 Type of Wheelchair: Manual Stair Training 1 Step (curb) (QC): 88 4 Steps (QC): 88 12 Steps (QC): 88 Balance Picking up an Object (QC): 88 ADL-Treatment Eating (QC): 6 Oral Hygiene (QC): 7 Shower/Bathe Self (QC): 4 Upper Body Dressing (QC): 4 Lower Body Dressing (QC): 3 On/Off Footwear (QC): 3 Toileting Hygiene (QC): 3 (Mod assist) Toilet Transfer (QC): 3 (Mod assist) Assessment/Plan Assessment and Plan Assess & Plan/Chief Complaint Assessment: CVA Partial aphasia Receptive aphasia Hypertension Aortic stenosis Chronic atrial fibrillation Memory loss Debility History of Covid Plan: Cardiology consult Inpatient rehab protocol Aggressive therapy Fall risk 02/25/2021: Fall risk prevention Increase independence in ADLs Appreciate cardiology 02/26/2021: Monitor closely Fall risk Monitor confusion 02/27/2021: Knee pain management Monitor closely Fall risk (1) CVA (cerebral vascular accident) (2) Right sided weakness Status: Acute (3) Aphasia Status: Acute (4) Debility Status: Acute (5) Delirium Status: Acute MAAME LOMBARDO DO Feb 27, 2021 08:21
[2021-02-27] MEDS: SPIRONOLACTONE 25 MG (ALDACTONE) TAB PO SCH (09:00)
[2021-02-27] MEDS: APIXABAN 5 MG (ELIQUIS) TABLET PO SCH ×2 (09:00→20:55)
[2021-02-27] MEDS: FUROSEMIDE 40 MG (LASIX) TAB PO SCH (09:01)
[2021-02-27] MEDS: ROSUVASTATIN 20 MG (CRESTOR) TABLET PO SCH (09:01)
[2021-02-27] MEDS: polyethylene glycoL POWDER 17 GM (MIRALAX) PACK PO SCH ×2 (09:01→20:42)
[2021-02-27] MEDS: DOCUSATE SODIUM 100 MG (COLACE) CAP PO SCH ×2 (09:01→19:20)
[2021-02-27] MEDS: lisINopril 5 MG (PRINIVIL) TABLET PO SCH (09:01)
[2021-02-27] MEDS: CEFDINIR 300 MG (OMNICEF) CAP PO SCH ×2 (09:01→20:55)
[2021-02-27] MEDS: GABAPENTIN 300 MG (NEURONTIN) CAP PO SCH ×3 (09:01→20:55)
[2021-02-27] MEDS: SENNA W/DOCUSATE (SENOKOT S) TABLET PO SCH ×2 (09:01→20:42)
[2021-02-27] MEDS: NAPHA/PHEN (NAPHCON-A, OPCON-A) OP SOLN 15 ML BTL OS SCH ×4 (09:02→20:55)
[2021-02-27] MEDS: ALPRAZolam 0.25 MG (XANAX) TAB PO PRN (15:02)
--- NOTE | 2021-02-27 18:27 | Progress Note - Cardiology ---
Cardiology SOAP Progress Note Subjective: She does not communicate No symptoms reported Objective: I&O/Vital Signs 02/27/21 02/27/21 02/27/21 06:56 07:30 09:00 Temp 36.3 Pulse 63 Resp 16 B/P (MAP) 156/69 (98) Pulse Ox 95 96 O2 Delivery Room Air Room Air Room Air Weight (Pounds): 182 Weight (Ounces): 0.6 Weight (Calculated Kilograms): 77.262705 Constitutional: well-developed, well-nourished, other (non-communicative) Respiratory: chest expansion is symmetric, chest is bilaterally symmetric, lungs clear to auscultation Cardiovascular: regular rate-rhythm, S1 and S2, systolic murmur Gastrointestional: audible bowel sounds Extremities: no lower extremity edema bilateral Neurologic/Psychiatric: other (noncommunicative, doesn't cooperate with aneuro exam) Skin: No rash on exposed areas, No ulcerations on exposed areas A/P: Assessment: 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 Lemos of interventional radiology at [facility] Chronic a-fib documented - had been on OAC with warfarin and was transitioning to Eliquis at time of stroke per records from [facility] Valvular heart disease - Echocardiogram on 02-15-[address] 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
[2021-02-27 20:00] VITALS: BP 111/57
[2021-02-27] MEDS: rOPINIRole 1 MG (REQUIP) TABLET PO SCH (20:55)
[2021-02-27] MEDS: LATANOPROST 0.005% (XALATAN) OPHTH SOLN 2.5 ML OU SCH (20:55)
[2021-02-27] MEDS: AMITRIPTYLINE 25 MG (ELAVIL) TAB PO SCH (20:56)
[2021-02-28] MEDS: KCL 20 MEQ TAB (K-DUR) PO SCH (05:32)
[2021-02-28 05:38] LABS: BASOPHILS % (AUTO) 0 % (0-10); EOSINOPHILS # (AUTO) 1.3 10^3/uL (0.0-0.3); EOSINOPHILS % (AUTO) 12 % (0-10); HEMATOCRIT 36 % (35-52); HEMOGLOBIN 11.4 g/dL (11.5-16.0); LYMPHOCYTES # (AUTO) 2.4 10^3/uL (1.0-4.0); LYMPHOCYTES % (AUTO) 22 % (12-44); MEAN CORPUSCULAR HEMOGLOBIN 29 pg (25-34); MEAN CORPUSCULAR HGB CONC 32 g/dL (32-36); MEAN CORPUSCULAR VOLUME 90 fL (80-99); MEAN PLATELET VOLUME 11.7 fL (9.0-12.2); MONOCYTES % (AUTO) 9 % (0-12); NEUTROPHILS # (AUTO) 6.1 10^3/uL (1.8-7.8); NEUTROPHILS % (AUTO) 56 % (42-75); PLATELET COUNT 247 10^3/uL (130-400); WHITE BLOOD COUNT 10.8 10^3/uL (4.3-11.0)
[2021-02-28 06:02] LABS: ALBUMIN 3.2 GM/DL (3.2-4.5); POTASSIUM 4.8 MMOL/L (3.6-5.0)
[2021-02-28 06:03] LABS: CALCIUM 8.8 MG/DL (8.5-10.1)
[2021-02-28 06:05] LABS: TOTAL PROTEIN 6.1 GM/DL (6.4-8.2)
[2021-02-28 06:07] LABS: BILIRUBIN,TOTAL 1.2 MG/DL (0.1-1.0)
[2021-02-28 06:08] LABS: CREATININE SERUM 1.24 MG/DL (0.60-1.30)
[2021-02-28] MEDS: RT--FLUTICASONE/SALMETEROL 232-14 (AIRDUO RespiCLICK) IH SCH ×2 (06:41→19:17)
--- NOTE | 2021-02-28 06:56 | PM&R Progress Note ---
Subjective HPI/CC On Admission Date Seen by Provider: Feb 28, 2021 Time Seen by Provider: 09:00 Subjective/Events-last exam 02/28/2021: Patient doing pretty well Sleeps most of the time Had a bowel movement yesterday No major issues or concerns per RN 02/27/2021: Patient doing about the same Complains of left knee pain without injury Patient very cognitive deficient Appears to be very chronically ill 02/26/2021: Mildly hypotensive so holding blood pressure medication for systolic less than 120 Slept pretty well Having some loose bowel movements so holding laxatives Monitoring closely Currently sleeping 02/25/2021: Patient doing pretty well today Oriented x1 Expressive aphasia makes it difficult to communicate Appreciate cardiology consultation Echocardiogram was performed with bubble test Fall risk prevention Check meds and labs Review of Systems General: Fatigue Neurological: Weakness, Incoordination, Confusion Objective Exam Vital Signs Vital Signs Date Time Temp Pulse Resp B/P (MAP) Pulse Ox O2 Delivery O2 Flow Rate FiO2 02/28/21 21:00 Room Air 02/28/21 20:00 36.2 69 18 102/49 (66) 97 Capillary Refill : General Appearance: No Apparent Distress, WD/WN, Chronically ill HEENT: PERRL/EOMI, Normal ENT Inspection, Pharynx Normal Neck: Full Range of Motion, Normal Inspection, Non Tender, Supple, Carotid Bruit Respiratory: Chest Non Tender, Lungs Clear, Normal Breath Sounds, No Accessory Muscle Use, No Respiratory Distress Cardiovascular: Regular Rate, Rhythm, No Edema, No Gallop, No JVD, Normal Peripheral Pulses, Systolic Murmur Gastrointestinal: Normal Bowel Sounds, No Organomegaly, No Pulsatile Mass, Non Tender, Soft Back: Normal Inspection, No CVA Tenderness, No Vertebral Tenderness Extremity: Normal Capillary Refill, Normal Inspection, Normal Range of Motion, Non Tender, No Calf Tenderness, No Pedal Edema Neurologic/Psychiatric: Alert, Oriented x3, No Motor/Sensory Deficits, Normal Mood/Affect, Abnormal Gait, Aphasia, Disoriented, Motor Weakness (Generalized) Skin: Normal Color, Warm/Dry Lymphatic: No Adenopathy Results/Procedures Lab Patient resulted labs reviewed. FIM Transfers Therapy Code Descriptions/Definitions Functional [place] Measure: 0=Not Assessed/NA 4=Minimal Assistance 1=Total Assistance 5=Supervision or Setup 2=Maximal Assistance 6=Modified [place] 3=Moderate Assistance 7=Complete IndependenceSCALE: Activities may be completed with or without assistive devices. 4-Bfsygoyjiw-ihxvxwp completes the activity by him/herself with no assistance from a helper. 5-Set-up or Clean-up Assistance-helper sets up or cleans up; patient completes activity. [place] assists only prior to or following the activity. 4-Supervision or Touching Assistance-helper provides verbal cues and/or touching/steadying and/or contact guard assistance as patient completes activity. Assistance may be provided throughout the activity or intermittently. 3-Partial/Moderate Assistance-helper does LESS THAN HALF the effort. [place] lifts, holds or supports trunk or limbs, but provides less than half the effort. 2-Substantial/Maximal Assistance-helper does MORE THAN HALF the effort. [place] lifts or holds trunk or limbs and provides more than half the effort. 6-Oskqiriit-ikvihb does ALL the effort. Patient does none of the effort to complete the activity. Or, the assistance of 2 or more helpers is required for the patient to complete the activity. If activity was not attempted, code reason: 7-Patient Refused. 9-Not Applicable-not attempted and the patient did not perform the activity before the current illness, exacerbation or injury. 10-Not Attempted due to Environmental Limitations-(lack of equipment, weather restraints, etc.). 88-Not Attempted due to Medical Conditions or Safety Concerns. Roll Left to Right (QC): 6 Sit to Lying (QC): 3 Sit to Stand (QC): 5 Chair/Veq-jm-Zwlaq Xfer(QC): 2 (x 2 sets) Car Transfer (QC): 3 Gait Training Does the Patient Walk?: Yes Walk 10 feet (QC): 4 Walk 50 ft with 2 Turns(QC): 88 Walk 150 ft (QC): 88 Walking 10ft/uneven surface-QC: 88 Gait Assistive Device: FWW Wheelchair Training Does the Pt Use a Wheelchair?: Yes Distance: 150'x2 Wheel 50 ft with 2 turns (QC): 3 Wheel 150 ft (QC): 3 Type of Wheelchair: Manual Stair Training 1 Step (curb) (QC): 88 4 Steps (QC): 88 12 Steps (QC): 88 Balance Picking up an Object (QC): 88 ADL-Treatment Eating (QC): 6 Oral Hygiene (QC): 7 Shower/Bathe Self (QC): 4 Upper Body Dressing (QC): 4 Lower Body Dressing (QC): 3 On/Off Footwear (QC): 3 Toileting Hygiene (QC): 3 (Mod assist) Toilet Transfer (QC): 3 (Mod assist) Assessment/Plan Assessment and Plan Assess & Plan/Chief Complaint Assessment: CVA Partial aphasia Receptive aphasia Hypertension Aortic stenosis Chronic atrial fibrillation Memory loss Debility History of Covid Plan: Cardiology consult Inpatient rehab protocol Aggressive therapy Fall risk 02/25/2021: Fall risk prevention Increase independence in ADLs Appreciate cardiology 02/26/2021: Monitor closely Fall risk Monitor confusion 02/27/2021: Knee pain management Monitor closely Fall risk 02/28/2021: Chronic debility Sleeps most of the day (1) CVA (cerebral vascular accident) (2) Right sided weakness Status: Acute (3) Aphasia Status: Acute (4) Debility Status: Acute (5) Delirium Status: Acute MAAME LOMBARDO DO Feb 28, 2021 06:56
[2021-02-28] MEDS: APIXABAN 5 MG (ELIQUIS) TABLET PO SCH ×2 (07:58→22:01)
[2021-02-28] MEDS: SPIRONOLACTONE 25 MG (ALDACTONE) TAB PO SCH (07:58)
[2021-02-28] MEDS: ROSUVASTATIN 20 MG (CRESTOR) TABLET PO SCH (07:59)
[2021-02-28] MEDS: FUROSEMIDE 40 MG (LASIX) TAB PO SCH (07:59)
[2021-02-28] MEDS: CEFDINIR 300 MG (OMNICEF) CAP PO SCH ×2 (07:59→22:05)
[2021-02-28] MEDS: lisINopril 5 MG (PRINIVIL) TABLET PO SCH (07:59)
[2021-02-28] MEDS: GABAPENTIN 300 MG (NEURONTIN) CAP PO SCH ×3 (07:59→22:01)
[2021-02-28 08:00] VITALS: BP 119/61
--- NOTE | 2021-02-28 08:54 | Occupational Ther Daily Note ---
OT Current Status-Daily Note Subjective Pt asleep in bed, snoring. Pt wakes easily. Pt agrees to tx, desiring bathroom at this time. Pt requires increased cues during session for attention to task and initiation ADL-Treatment Therapy Code Descriptions/Definitions Functional [place] Measure: 0=Not Assessed/NA 4=Minimal Assistance 1=Total Assistance 5=Supervision or Setup 2=Maximal Assistance 6=Modified [place] 3=Moderate Assistance 7=Complete IndependenceSCALE: Activities may be completed with or without assistive devices. 1-Fipzvvzics-bsjcobr completes the activity by him/herself with no assistance from a helper. 5-Set-up or Clean-up Assistance-helper sets up or cleans up; patient completes activity. [place] assists only prior to or following the activity. 4-Supervision or Touching Assistance-helper provides verbal cues and/or touching/steadying and/or contact guard assistance as patient completes activity. Assistance may be provided throughout the activity or intermittently. 3-Partial/Moderate Assistance-helper does LESS THAN HALF the effort. [place] lifts, holds or supports trunk or limbs, but provides less than half the effort. 2-Substantial/Maximal Assistance-helper does MORE THAN HALF the effort. [place] lifts or holds trunk or limbs and provides more than half the effort. 7-Ceszvapic-hiusfk does ALL the effort. Patient does none of the effort to complete the activity. Or, the assistance of 2 or more helpers is required for the patient to complete the activity. If activity was not attempted, code reason: 7-Patient Refused. 9-Not Applicable-not attempted and the patient did not perform the activity before the current illness, exacerbation or injury. 10-Not Attempted due to Environmental Limitations-(lack of equipment, weather restraints, etc.). 88-Not Attempted due to Medical Conditions or Safety Concerns. Eating (QC): 5 (s/u with all tasks: opening containers and cutting all food.) Shower/Bathe Self (QC): 1 (TD due to need of Ax2 for bottom. Pt completes all other areas (excluding feet) with s/u and cues for initiation and termination of task.) Upper Body Dressing (QC): 3 (min A bringing shirt around back and to L hand and assist with buttoning.) Lower Body Dressing (QC): 2 (Pt able to doff with increased time. Pt grunts during task, though unable to state where she is experiencing pain. Pt dons with assist due to increased grunting/ decreased ROM toward BLE) On/Off Footwear: 2 (max A) Toileting Hygiene (QC): 1 (TD) Toilet Transfer (QC): 3 (mod A (pt retropulsive from EOB and requires increased cues for ambulation and mod A sit to stand from commode)) Other Treatment Pt bed mob from supine to sit with SBA, increased cues to get BLE to floor. Pt sit to stand from raised bed iwth increased time/ cues for hand positioning. Pt retropulsive upon stance, requires increased cues for positioning and mod A to pull pt into full ext position. Pt ambulates with increased cues to BSC placed at bedside. Lowers with limited control, unable to follow cues to place hand on BSC. Pt completes toileting and LB washing on commode. Begins to grunt and give increased facial cues that she is in pain. Pt does not place pain/ c/o pain but remains squinty eyed, requires cues to move to EOB rather than commode. Ax2 during toilet hygiene. Pt sits EOB with Ax2 for safety/ continued retropulsion. Pt completes UB dressing/ washing EOB; sit to stand with mod A and sits with max A in chair. Limited control in sit, FOF. Pt is positioned with LEs elevated, riddhi l light in reach, chair alarm on, all needs met, and pt able to complete feeding after s/u safely. Education OT Patient Education: Correct positioning, Modified ADL techniques, Purpose of tx/functional activities, Safety issues, Transfer techniques Teaching Recipient: Patient Teaching Methods: Demonstration, Discussion Response to Teaching: Return Demonstration, Unable to Comprehend, Reinforcement Needed OT Short Term Goals Short Term Goals Time Frame: Mar 04, 2021 Oral hygiene: 5 Toileting hygiene: 5 OT Assisted Goals Automatic Profile Shaper Operator Goals Time Frame: Mar 18, 2021 Eating (QC): 6 Oral Hygiene (QC): 6 Toileting Hygiene (QC): 6 Shower/Bathe Self (QC): 4 Upper Body Dressing (QC): 5 Lower Body Dressing (QC): 4 On/Off Footwear (QC): 4 Additional Goals: 1-Demonstrate ADL Tasks, 2-Verbalize Understanding, 3- ImproveStrength/Katherine 1=Demonstrate adherence to instructed precautions during ADL tasks. 2=Patient will verbalize/demonstrate understanding of assistive devices/modifications for ADL. 3=Patient will improve strength/tolerance for activity to enable patient to perform ADL's. OT Education/Plan Problem List/Assessment Assessment: Decreased Activ Tolerance, Decreased Safety Aware, Decreased UE Strength, Dependent Transfers, Impaired Bed Mobility, Impaired Cognition, Impaired Coordination, Impaired Funct Balance, Impaired I ADL's, Impaired Self- Care Skills Discharge Recommendations Plan/Recommendations: Continue POC Therapy Discharge Recommendati: 24 Hour Supervision, Post Acute OT Treatment Plan/Plan of Care Treatment,Training & Education: Yes Patient would benefit from OT for education, treatment and training to promote independence in ADL's, mobility, safety and/or upper extremity function for ADL's. Plan of Care: ADL Retraining, Functional Mobility, Group Exercise/Act as Ind, UE Funct Exercise/Act Treatment Duration: Mar 18, 2021 Frequency: At least 5 of 7 days/Wk (IRF) Estimated Hrs Per Day: 1.5 hours per day Agreement: Yes Rehab Potential: Fair Time/GCodes Start Time: 07:35 Stop Time: 08:45 Total Time Billed (hr/min): 70 Billed Treatment Time 1, ADL 5 (70) TERRENCE HARDY OTR Feb 28, 2021 08:54
[2021-02-28] MEDS: polyethylene glycoL POWDER 17 GM (MIRALAX) PACK PO SCH ×2 (08:56→22:02)
[2021-02-28] MEDS: DOCUSATE SODIUM 100 MG (COLACE) CAP PO SCH ×2 (08:56→22:02)
[2021-02-28] MEDS: SENNA W/DOCUSATE (SENOKOT S) TABLET PO SCH ×2 (08:57→22:03)
[2021-02-28] MEDS: DICLOFENAC 1% GEL 100 GM (VOLTAREN) TUBE TOP PRN ×2 (09:11→17:10)
[2021-02-28] MEDS: HYDROcodone/APAP 5 MG/325 MG (LORTAB) TAB PO PRN ×2 (09:13→22:41)
--- NOTE | 2021-02-28 10:44 | Speech Therapy Daily Note ---
Speech Daily Progress Note Subjective Date Seen by Provider: Feb 28, 2021 Time Seen by Provider: 00:30 Patient sitting up in her recliner with her breakfast tray in front of her. Patient had consumed 90% of her meal. She alerted to her name upon my speaking to her. Objective Patient completed y/n questions related to herself with frequent repetitions and verbal prompts at 50%. Assessment Assessment Current Status: Fair Progress Treatment Plan Continue Plan of Care Speech Short Term Goals Short Term Goals Short Term Goals 1) Patient will complete memory tasks related to her daily needs at 80% or greater with minimal cuing. 2) Patient will complete safety awareness tasks related to her daily needs at 80% or greater with minimal cuing. 3) Patient will complete problem solving tasks related to her daily needs at 80% or greater with minimal cuing. Speech Office Mail Clerk Goals Office Mail Clerk Goals Patient will improve cognitive-communication abilities so that she is able to complete daily tasks with decreased assist. Speech-Plan Patient/Family Goals Patient/Family Goals: Patient's discharge situation is yet to be determined based on rehab team review and patient progress. Treatment Plan Speech Therapy Treatment Plan: Continue Plan of Care Treatment Duration: Mar 11, 2021 Frequency: 4 times per week (Patient will receive skilled ST 4-5x per week) Estimated Hrs Per Day: .5 hour per day Rehab Potential: Fair Barriers to Learning: Patient's critical illness, cognitive deficits and age Pt/Family Agrees to Plan: Yes Safety Risks/Education Teaching Recipient: Patient Teaching Methods: Demonstration, Discussion Response to Teaching: Verbalize Understanding, Return Demonstration, Reinforcement Needed Education Topics Provided: Continued safety and communication of wants/needs Time Speech Therapy Time In: 10:30 Speech Therapy Time Out: 11:00 Total Billed Time: 30 Billed Treatment Time 1, SLONELIA Baird Feb 28, 2021 10:44
[2021-02-28] MEDS: NAPHA/PHEN (NAPHCON-A, OPCON-A) OP SOLN 15 ML BTL OS SCH ×4 (11:56→22:00)
--- NOTE | 2021-02-28 12:14 | Physical Therapy Daily Note ---
PT Daily Note-Current Subjective Patient in recliner pre tx agrees to PT, has no complaints of pain. Needs to use the restroom, an OT assists PT with transfers and wiping for toileting. Appearance Patient in recliner post tx with nurse call, jose alfredo, all needs met, chair alarm on. Mental Status Patient Orientation: Person, Confused Transfers SCALE: Activities may be completed with or without assistive devices. 9-Dqhpmmaadv-onzeruo completes the activity by him/herself with no assistance from a helper. 5-Set-up or Clean-up Assistance-helper sets up or cleans up; patient completes activity. [place] assists only prior to or following the activity. 4-Supervision or Touching Assistance-helper provides verbal cues and/or touching/steadying and/or contact guard assistance as patient completes activity. Assistance may be provided throughout the activity or intermittently. 3-Partial/Moderate Assistance-helper does LESS THAN HALF the effort. [place] lifts, holds or supports trunk or limbs, but provides less than half the effort. 2-Substantial/Maximal Assistance-helper does MORE THAN HALF the effort. [place] lifts or holds trunk or limbs and provides more than half the effort. 3-Vimvcwfjp-ieayte does ALL the effort. Patient does none of the effort to complete the activity. Or, the assistance of 2 or more helpers is required for the patient to complete the activity. If activity was not attempted, code reason: 7-Patient Refused. 9-Not Applicable-not attempted and the patient did not perform the activity before the current illness, exacerbation or injury. 10-Not Attempted due to Environmental Limitations-(lack of equipment, weather restraints, etc.). 88-Not Attempted due to Medical Conditions or Safety Concerns. Sit to Stand (QC): 1 Chair/Bun-gq-Ulaem Xfer(QC): 1 Patient is transferred to and then to toilet, used the toilet, transferred to , went to therapy gym, and then transferred to recliner after getting back to his room. Patient had declined in transfers, she is extremely retropulsive and resists transfers. Knee pain is an issue. Wheelchair Training Does the Pt Use a Wheelchair?: Yes Wheel 50 ft with 2 turns (QC): 3 Wheel 150 ft (QC): 3 Type of Wheelchair: Manual Exercises Seated Therapy Exercises: Ankle pumps, Long arc quads, Hip flexion, Hip abd/add (RTB and ball) Seated Reps: 20 (patient needs constant cues to keep on task) Treatments transfers, toileting, LE exercise, WC mobility Assessment Current Status: Poor Progress Patient has declines with general mobility, seems even more confused, has terrible knee pain PT Short Term Goals Short Term Goals Time Frame: Mar 04, 2021 Roll Left & Right: 6 Sit to lyin Lying to sitting on side of be: 4 Sit to stand: 4 Chair/vnu-nz-fjuyo transfer: 4 Walk 10 feet: 4 Walk 50 feet with two turns: 4 PT Food And Beverage Operations Manager Goals Alf Goals PT Alf Goals Time Frame: Mar 18, 2021 Roll Left & Right (QC): 6 Sit to Lying (QC): 6 Lying-Sitting on Side/Bed(QC): 6 Sit to Stand (QC): 4 (SBA) Chair/Jes-gm-Fwyoi Xfer(QC): 4 (SBA) Toilet Transfer (QC): 4 (SBA) Car Transfer (QC): 4 (SBA) Does the Patient Walk: Yes Walk 10 feet (QC): 4 (SBA) Walk 50ft with 2 Turns (QC): 4 (SBA) Walk 150 ft (QC): 88 Walking 10ft on Uneven Surface: 88 1 Step (curb) (QC): 88 4 Steps (QC): 88 12 Steps (QC): 88 Picking up an Object (QC): 88 Wheel 50 feet with 2 turns (QC: 5 Wheel 150 feet: 5 PT Plan Problem List Problem List: Activity Tolerance, Functional Strength, Safety, Balance, Gait, Transfer, Bed Mobility, ROM Treatment/Plan Treatment Plan: Continue Plan of Care Treatment Plan: Bed Mobility, Education, Functional Activity Katherine, Functional Strength, Group Therapy, Gait, Safety, Therapeutic Exercise, Transfers Treatment Duration: Mar 18, 2021 Frequency: At least 5 of 7 days/Wk (IRF) Estimated Hrs Per Day: 1.5 hours per day Patient and/or Family Agrees t: Yes Safety Risks/Education Patient Education: Transfer Techniques, Correct Positioning, W/C Management, Safety Issues Teaching Recipient: Patient Teaching Methods: Demonstration, Discussion Response to Teaching: Reinforcement Needed Time/GCodes Time In: 1130 Time Out: 1215 Total Billed Treatment Time: 45 Total Billed Treatment 1 visit FA 30' EX 15' JOSIE HAWKINS PT Feb 28, 2021 12:14
--- NOTE | 2021-02-28 14:36 | Therapy Group Daily Note ---
Therapy Daily Group Note Patient Education Topic Exercises, Other List Below (intro to rehab) Exercises UE Exercise Session Ratio (pt:therapist): 4:1 Goal of Session: Education on ARU Expectations, Memory Strategies, UE/LE Strengthing Goal Met for this Session: Yes Pt Benefit of Group: Contributions to Others, Increased Functional Strength, Improved Cognition, Recognition of Peers, Socialization Other/Notes Using w/c, pt propelled to OT/PT group at [facility]. Group consisted of introductions(name, place born, first memory), socialization, patient introduced to the purpose and expectations of rehab and performed a memory exercise with UE exercise and educated on memory strategies. Pt introduced self appropriately and actively listened to peers. Pt acknowledged understanding of educational topics by giving own examples. 5 words given for memory task-dog, hilda, 6, burrito, guitar. After session, pt in recliner at bedside with call light/phone in reach and chair alarm on. All needs met in room. Start Time: 13:00 Stop Time: 14:00 Total Billed Treatment Time: 60 Total Billed Treatment 1 visit GRP 60JOSIE FITZPATRICK PT Feb 28, 2021 14:36
--- NOTE | 2021-02-28 14:44 | Therapy Group Daily Note ---
Therapy Daily Group Note Patient Education Topic Other List Below (memory, ARU description/expectations) Exercises LE Seated Exercise, UE Exercise Session Ratio (pt:therapist): 4:1 Goal of Session: Memory Strategies, UE/LE Strengthing Goal Met for this Session: Yes Pt Benefit of Group: Contributions to Others, F/U Use of Strategies @Home, Increased Functional Safety, Increased Functional Strength, Improved Cognition, Recognition of Peers, Socialization Other/Notes Pt was transported via w/c to OT/PT group in [facility]. Group consisted of introductions (name, place living, categories question), socialization, B UE/LE seated exercises, memory task and education. Pt introduced self appropriately and actively listened to peers. Pt able to throw items in designated areas against gravity with 80% accuracy. Pt required modifications and assist from peers to complete memory task. Pt required cues to focus on educational topics. After therapy, pt sitting in chair with call light/phone in reach. All needs met in room. Start Time: 13:00 Stop Time: 14:00 Total Billed Treatment Time: 60 Total Billed Treatment 1-GRP RUPINDER ANGULO Feb 28, 2021 14:44
--- NOTE | 2021-02-28 17:36 | Progress Note - Cardiology ---
Cardiology SOAP Progress Note Subjective: Does not report cp or palp or shortness of breath or any other symptoms Objective: I&O/Vital Signs 02/28/21 02/28/21 02/28/21 06:41 08:00 09:00 Temp 36.4 Pulse 78 Resp 20 B/P (MAP) 119/61 (80) Pulse Ox 90 94 O2 Delivery Room Air Room Air Room Air Weight (Pounds): 182 Weight (Ounces): 0.6 Weight (Calculated Kilograms): 77.692148 Constitutional: well-developed, well-nourished, other (appears more alert today and answers questions in monosyllables) Respiratory: chest expansion is symmetric, chest is bilaterally symmetric, nafisa ngs clear to auscultation Cardiovascular: regular rate-rhythm, S1 and S2, systolic murmur Gastrointestional: audible bowel sounds Extremities: no lower extremity edema bilateral Neurologic/Psychiatric: other (more alert today, cannot cooperate with a neuro exam) Skin: No rash on exposed areas, No ulcerations on exposed areas Results/Procedures: Labs Laboratory Tests 02/28/21 05:25: White Blood Count 10.8, Red Blood Count 4.00, Hemoglobin 11.4L, Hematocrit 36, Mean Corpuscular Volume 90, Mean Corpuscular Hemoglobin 29, Mean Corpuscular Hemoglobin Concent 32, Red Cell Distribution Width 16.6H, Platelet Count 247, Mean Platelet Volume 11.7, Immature Granulocyte % (Auto) 1, Neutrophils (%) (Auto) 56, Lymphocytes (%) (Auto) 22, Monocytes (%) (Auto) 9, Eosinophils (%) (Auto) 12H, Basophils (%) (Auto) 0, Neutrophils # (Auto) 6.1, Lymphocytes # (Auto) 2.4, Monocytes # (Auto) 1.0, Eosinophils # (Auto) 1.3H, Basophils # (A uto) 0.0, Immature Granulocyte # (Auto) 0.1, Sodium Level 137, Potassium Level 4.8, Chloride Level 103, Carbon Dioxide Level 24, Anion Gap 10, Blood Urea Nitrogen 30H, Creatinine 1.24, Estimat Glomerular Filtration Rate 42, BUN/Creatinine Ratio 24, Glucose Level 98, Calcium Level 8.8, Corrected Calcium 9.4, Total Bilirubin 1.2H, Aspartate Amino Transf (AST/SGOT) 25, Alanine Aminotransferase (ALT/SGPT) 22, Alkaline Phosphatase 82, Total Protein 6.1L, Albumin 3.2 A/P: Assessment: 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 Lemos of interventional radiology at [facility] Chronic a-fib documented - had been on OAC with warfarin and was transitioning to Eliquis at time of stroke per records from [facility] Valvular heart disease - Echocardiogram on 02-15-[address] 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
[2021-02-28 20:00] VITALS: BP 102/49
[2021-02-28] MEDS: AMITRIPTYLINE 25 MG (ELAVIL) TAB PO SCH (22:01)
[2021-02-28] MEDS: rOPINIRole 1 MG (REQUIP) TABLET PO SCH (22:01)
[2021-02-28] MEDS: LATANOPROST 0.005% (XALATAN) OPHTH SOLN 2.5 ML OU SCH (22:02)
[2021-03-01] MEDS: ALPRAZolam 0.25 MG (XANAX) TAB PO PRN (00:37)
[2021-03-01] MEDS: KCL 20 MEQ TAB (K-DUR) PO SCH (06:24)
[2021-03-01] MEDS: HYDROcodone/APAP 5 MG/325 MG (LORTAB) TAB PO PRN ×3 (06:26→20:25)
[2021-03-01] MEDS: RT--FLUTICASONE/SALMETEROL 232-14 (AIRDUO RespiCLICK) IH SCH ×2 (07:05→19:33)
[2021-03-01 08:39] VITALS: BP 91/55
[2021-03-01] MEDS: SPIRONOLACTONE 25 MG (ALDACTONE) TAB PO SCH (08:42)
[2021-03-01] MEDS: FUROSEMIDE 40 MG (LASIX) TAB PO SCH (08:42)
[2021-03-01] MEDS: CEFDINIR 300 MG (OMNICEF) CAP PO SCH (08:42)
[2021-03-01] MEDS: APIXABAN 5 MG (ELIQUIS) TABLET PO SCH ×2 (08:42→20:24)
[2021-03-01] MEDS: ROSUVASTATIN 20 MG (CRESTOR) TABLET PO SCH (08:42)
[2021-03-01] MEDS: lisINopril 5 MG (PRINIVIL) TABLET PO SCH (08:44)
[2021-03-01] MEDS: NAPHA/PHEN (NAPHCON-A, OPCON-A) OP SOLN 15 ML BTL OS SCH ×3 (08:44→20:24)
[2021-03-01] MEDS: GABAPENTIN 300 MG (NEURONTIN) CAP PO SCH ×3 (09:02→20:24)
--- NOTE | 2021-03-01 09:44 | Speech Therapy Daily Note ---
Speech Daily Progress Note Subjective Date Seen by Provider: Mar 01, 2021 Time Seen by Provider: 00:30 Patient was sitting up in her recliner with her breakfast tray in front of her. Her nurse, Sandra states she had assisted in feeding the patient everything she had eaten. Patient was very lethargic due to pain meds. She alerted to answer questions with frequent verbal prompts. Objective Patient completed a series of simple general information questions with 60% given max cues to engage. Assessment Assessment Current Status: Fair Progress Treatment Plan Continue Plan of Care Speech Short Term Goals Short Term Goals Short Term Goals 1) Patient will complete memory tasks related to her daily needs at 80% or greater with minimal cuing. 2) Patient will complete safety awareness tasks related to her daily needs at 80% or greater with minimal cuing. 3) Patient will complete problem solving tasks related to her daily needs at 80% or greater with minimal cuing. Speech Usp Goals Usp Goals Patient will improve cognitive-communication abilities so that she is able to complete daily tasks with decreased assist. Speech-Plan Patient/Family Goals Patient/Family Goals: Patient plans to return to her home, however her discharge location will be determined by the team and patient's needs. Treatment Plan Speech Therapy Treatment Plan: Continue Plan of Care Treatment Duration: Mar 11, 2021 Frequency: 4 times per week (Patient will receive skilled ST 4-5x per week) Estimated Hrs Per Day: .5 hour per day Rehab Potential: Fair Barriers to Learning: Patient's debility, age Pt/Family Agrees to Plan: Yes Safety Risks/Education Teaching Recipient: Patient Teaching Methods: Demonstration, Discussion Response to Teaching: Verbalize Understanding, Return Demonstration, Reinfor cement Needed Education Topics Provided: Continued safety and communication Time Speech Therapy Time In: 09:00 Speech Therapy Time Out: 09:30 Total Billed Time: 30 Billed Treatment Time 1, ONELIA Gibson Mar 01, 2021 09:44
--- NOTE | 2021-03-01 10:17 | Progress Note - Cardiology ---
Cardiology SOAP Progress Note Subjective: Sitting up in recliner No c/o CP or SOB Answering questions appropriately Remains slow to respons Objective: I&O/Vital Signs 03/06/21 03/06/21 03/07/21 03/07/21 20:55 21:00 06:30 08:09 Temp 37.6 37.6 Pulse 73 Resp 20 B/P (MAP) 140/95 (110) Pulse Ox 96 94 O2 Delivery Room Air Room Air Room Air 03/07/21 00:00 Intake Total 270 ml Balance 270 ml Weight (Pounds): 182 Weight (Ounces): 0.6 Weight (Calculated Kilograms): 77.080661 Constitutional: well-developed, well-nourished, other (appears more alert today and answers questions in monosyllables) Respiratory: chest expansion is symmetric, chest is bilaterally symmetric, lungs clear to auscultation Cardiovascular: regular rate-rhythm, S1 and S2, systolic murmur Gastrointestional: audible bowel sounds Extremities: no lower extremity edema bilateral Neurologic/Psychiatric: other (more alert today, cannot cooperate with a neuro exam) Skin: No rash on exposed areas, No ulcerations on exposed areas Results/Procedures: Labs Laboratory Tests 03/06/21 20:32: White Blood Count 12.9H, Red Blood Count 3.92, Hemoglobin 11.4L, Hematocrit 36, Mean Corpuscular Volume 91, Mean Corpuscular Hemoglobin 29, Mean Corpuscular Hemoglobin Concent 32, Red Cell Distribution Width 17.2H, Platelet Count 243, Mean Platelet Volume 11.6, Immature Granulocyte % (Auto) 0, Neutrophils (%) (Auto) 78H, Lymphocytes (%) (Auto) 9L, Monocytes (%) (Auto) 7, Eosinophils (%) (Auto) 6, Basophils (%) (Auto) 0, Neutrophils # (Auto) 10.0H, Lymphocytes # (Auto) 1.2, Monocytes # (Auto) 0.9, Eosinophils # (Auto) 0.7H, Basophils # (Auto) 0.0, Immature Granulocyte # (Auto) 0.1, Sodium Level 135, Potassium Level 4.3, Chloride Level 103, Carbon Dioxide Level 23, Anion Gap 9, Blood Urea Nitrogen 23H, Creatinine 1.07, Estimat Glomerular Filtration Rate 49, BUN/Creatinine Ratio 21, Glucose Level 140H, Lactic Acid Level 1.27, Calcium Level 9.5, Corrected Calcium 9.8, Total Bilirubin 1.6H, Aspartate Amino Transf (AST/SGOT) 19, Alanine Aminotransferase (ALT/SGPT) 14, Alkaline Phosphatase 107, Total Protein 6.9, Albumin 3.6, Procalcitonin 0.09 03/06/21 22:00: Urine Color YELLOW, Urine Clarity SL CLOUDY, Urine pH 5.5, Urine Specific [place] 1.015L, Urine Protein NEGATIVE, Urine Glucose (UA) NEGATIVE, Urine Ketones NEGATIVE, Urine Nitrite POSITIVEH, Urine Bilirubin NEGATIVE, Urine Urobilinogen 0.2, Urine Leukocyte Esterase NEGATIVE, Urine RBC (Auto) 2+H, Urine RBC 0-2, Urine WBC 0-2, Urine Squamous Epithelial Cells NONE, Urine Crystals NONE, Urine Bacteria MODERATEH, Urine Casts NONE, Urine Mucus NEGATIVE, Urine Culture Indicated YES 03/07/21 05:36: White Blood Count 10.4, Red Blood Count 3.42L, Hemoglobin 9.8L, Hematocrit 31L, Mean Corpuscular Volume 92, Mean Corpuscular Hemoglobin 29, Mean Corpuscular Hemoglobin Concent 31L, Red Cell Distribution Width 17.2H, Platelet Count 193, Mean Platelet Volume 11.3, Immature Granulocyte % (Auto) 0, Neutrophils (%) (A uto) 60, Lymphocytes (%) (Auto) 17, Monocytes (%) (Auto) 10, Eosinophils (%) (Auto) 13H, Basophils (%) (Auto) 0, Neutrophils # (Auto) 6.2, Lymphocytes # (Auto) 1.7, Monocytes # (Auto) 1.1H, Eosinophils # (Auto) 1.3H, Basophils # (Auto) 0.0, Immature Granulocyte # (Auto) 0.0, Sodium Level 138, Potassium Level 3.9, Chloride Level 104, Carbon Dioxide Level 26, Anion Gap 8, Blood Urea Nitrogen 22H, Creatinine 0.85, Estimat Glomerular Filtration Rate > 60, BUN/Creatinine Ratio 26, Glucose Level 92, Calcium Level 9.0, Corrected Calcium 9.7, Total Bilirubin 1.6H, Aspartate Amino Transf (AST/SGOT) 15, Alanine Aminotransferase (ALT/SGPT) 11, Alkaline Phosphatase 79, Total Protein 5.9L, Albumin 3.1L Microbiology 03/06/21 Urine Culture - Preliminary, Resulted Gram Negative Nomi A/P: Assessment: 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 Lemos of interventional radiology at [facility] Chronic a-fib documented - had been on OAC with warfarin and was transitioning to Eliquis at time of stroke per records from [facility] Valvular heart disease - Echocardiogram on 02-15-[address] Carrion at [facility]: LVEF 60%; LVH; severe LA enlargement and mod RA enlargement; Mod mitral annular calcification with mild mitral valve stenosis and mild to mod MR; mod aortic valve stenosis with mod AoVR; small pericardial effusion without evidence of chamber compression or tamponade; no intracardiac thrombus seen - Echo on 02/25/21: LVEF 60-65%, mild to mod MR and TR, mod , triv AI, PASP 45- [address] - details unknown Parotid mass incidentally found at [facility] - has undergone w/u and f/u on this during this hospitalization is with Dr Compa MOSCOSO Plan: BP improved following reduction in antihypertensive regimen Monitor labs SALLY KENNEDY Mar 01, 2021 10:17
[2021-03-01] MEDS: SENNA W/DOCUSATE (SENOKOT S) TABLET PO SCH ×2 (10:32→21:40)
[2021-03-01] MEDS: DOCUSATE SODIUM 100 MG (COLACE) CAP PO SCH ×2 (10:32→21:39)
[2021-03-01] MEDS: polyethylene glycoL POWDER 17 GM (MIRALAX) PACK PO SCH ×2 (10:32→21:40)
--- NOTE | 2021-03-01 10:47 | Physical Therapy Daily Note ---
PT Daily Note-Current Subjective Pt sitting in recliner working with OT upon arrival. Pt agrees to PT/OT co- treat due to lack of coordination of UE & LE especially during transfers, decreased cognition and focus as well as fatigue and weakness. Mental Status Patient Orientation: Person Transfers SCALE: Activities may be completed with or without assistive devices. 7-Awqwutparr-pgqhrfl completes the activity by him/herself with no assistance from a helper. 5-Set-up or Clean-up Assistance-helper sets up or cleans up; patient completes activity. [place] assists only prior to or following the activity. 4-Supervision or Touching Assistance-helper provides verbal cues and/or touching/steadying and/or contact guard assistance as patient completes activity. Assistance may be provided throughout the activity or intermittently. 3-Partial/Moderate Assistance-helper does LESS THAN HALF the effort. [place] lift s, holds or supports trunk or limbs, but provides less than half the effort. 2-Substantial/Maximal Assistance-helper does MORE THAN HALF the effort. [place] lifts or holds trunk or limbs and provides more than half the effort. 7-[place]-vvlkqc does ALL the effort. Patient does none of the effort to complete the activity. Or, the assistance of 2 or more helpers is required for the patient to complete the activity. If activity was not attempted, code reason: 7-Patient Refused. 9-Not Applicable-not attempted and the patient did not perform the activity before the current illness, exacerbation or injury. 10-Not Attempted due to Environmental Limitations-(lack of equipment, weather restraints, etc.). 88-Not Attempted due to Medical Conditions or Safety Concerns. Sit to Stand (QC): 2 Chair/Juy-nh-Jlqir Xfer(QC): 2 Weight Bearing Full Weight Bearing Full Weight Bearing Treatments OT/ PT co-treat: 7551-7897 (37) with OT addressing cues/ problem solving/ sequencing/ UE strength and mobility while PT addresses LE strength, functional transfers and w/c mob. Pt rises, agrees to dressing. pt is presented options, provides verbal agreement to shirt/ pants. Pt requires increased cues for initiation/ problem solving during dressing. Pt sit to stand with cues for hand/ foot placement. Pt TD to w/c transfer. Pt sits in front of sink to complete oral/ hand care. Pt propels with max A to gym, max cues and physical positioning for BUE propelling/ LE mobility in w/c. Pt stands at parallel bars with max A to decrease retropulsion; popping noted in sit to stand/ UE movement. Pt requires rest, becomes drowsy between stances. Pt able to completes BUE punches with AAROM to initiate bilateral large motor movements to prep for w/c mobility. Pt positioned in recliner post TD transfer, LEs elevated, all needs met, call light in reach. [id number]: Pt eating lunch upon arrival. Pt has limited response or effort for Supine & Seated Ex. Pt is given VC, still same response. Pt resting and eating at end of tx. Assessment Current Status: Fair Progress Pt is groggy during tx as she had received pain meds. Pt needs constant VC to redirect and stay on task. Pt continues to be Max A for transfers. PT Short Term Goals Short Term Goals Time Frame: Mar 04, 2021 Roll Left & Right: 6 Sit to lyin Lying to sitting on side of be: 4 Sit to stand: 4 Chair/uso-ep-xisdb transfer: 4 Walk 10 feet: 4 Walk 50 feet with two turns: 4 PT Lot Worker Goals Mcfp Goals PT Lot Worker Goals Time Frame: Mar 18, 2021 Roll Left & Right (QC): 6 Sit to Lying (QC): 6 Lying-Sitting on Side/Bed(QC): 6 Sit to Stand (QC): 4 (SBA) Chair/Fel-wl-Kfjsd Xfer(QC): 4 (SBA) Toilet Transfer (QC): 4 (SBA) Car Transfer (QC): 4 (SBA) Does the Patient Walk: Yes Walk 10 feet (QC): 4 (SBA) Walk 50ft with 2 Turns (QC): 4 (SBA) Walk 150 ft (QC): 88 Walking 10ft on Uneven Surface: 88 1 Step (curb) (QC): 88 4 Steps (QC): 88 12 Steps (QC): 88 Picking up an Object (QC): 88 Wheel 50 feet with 2 turns (QC: 5 Wheel 150 feet: 5 PT Plan Problem List Problem List: Activity Tolerance, Functional Strength, Safety, Transfer Treatment/Plan Treatment Plan: Continue Plan of Care Treatment Plan: Bed Mobility, Education, Functional Activity Katherine, Functional Strength, Group Therapy, Gait, Safety, Therapeutic Exercise, Transfers Treatment Duration: Mar 18, 2021 Frequency: At least 5 of 7 days/Wk (IRF) Estimated Hrs Per Day: 1.5 hours per day Patient and/or Family Agrees t: Yes Safety Risks/Education Patient Education: Transfer Techniques, Correct Positioning, Safety Issues Teaching Recipient: Patient Teaching Methods: Discussion Response to Teaching: Reinforcement Needed Time/GCodes Time In: 945 Time Out: 1045 Total Billed Treatment Time: 60 Total Billed Treatment [id number]: 1, FA x4 (60m) [id number]: 1, FA (8m) FITO FAUSTIN GUIDE DELEGATE Mar 01, 2021 10:47
--- NOTE | 2021-03-01 10:51 | Occupational Ther Daily Note ---
OT Current Status-Daily Note Subjective Pt asleep in recliner upon OT entry. Pt requires increased vocals and increased stimulation to rouse. Pt groggy at start of treatment, requiring tactile stimulation with verbals. pt agrees to tx. Pt expresses pain in bilateral knees upon sit, however, grimaces during treatment and unable to state where pain oc curs. Popping/ crepitus felt upon movement in B shoulder, knees/ hips. OT individual tx:[id number] OT/ PT co-treat: [id number] (15) with OT addressing cues/ problem solving/ sequencing/ UE strength and mobility while PT addresses LE strength, functional transfers and w/c mob. Mental Status/Objective Patient Orientation: Person, Confused, Place ADL-Treatment Therapy Code Descriptions/Definitions Functional [place] Measure: 0=Not Assessed/NA 4=Minimal Assistance 1=Total Assistance 5=Supervision or Setup 2=Maximal Assistance 6=Modified [place] 3=Moderate Assistance 7=Complete IndependenceSCALE: Activities may be completed with or without assistive devices. 9-Acupmxzphd-uyvmtdw completes the activity by him/herself with no assistance from a helper. 5-Set-up or Clean-up Assistance-helper sets up or cleans up; patient completes activity. [place] assists only prior to or following the activity. 4-Supervision or Touching Assistance-helper provides verbal cues and/or touching/steadying and/or contact guard assistance as patient completes activity. Assistance may be provided throughout the activity or intermittently. 3-Partial/Moderate Assistance-helper does LESS THAN HALF the effort. [place] lifts, holds or supports trunk or limbs, but provides less than half the effort. 2-Substantial/Maximal Assistance-helper does MORE THAN HALF the effort. [place] lifts or holds trunk or limbs and provides more than half the effort. 0-Hcumgqkyr-cncpqj does ALL the effort. Patient does none of the effort to complete the activity. Or, the assistance of 2 or more helpers is required for the patient to complete the activity. If activity was not attempted, code reason: 7-Patient Refused. 9-Not Applicable-not attempted and the patient did not perform the activity before the current illness, exacerbation or injury. 10-Not Attempted due to Environmental Limitations-(lack of equipment, weather restraints, etc.). 88-Not Attempted due to Medical Conditions or Safety Concerns. Eating (QC): 5 Oral Hygiene (QC): 4 (SBA with cues for initiation. ) Upper Body Dressing (QC): 3 (min A with behind the back and buttons) Lower Body Dressing (QC): 1 (mod A threading, TD x2 in stnace for stance and to last puller hips.) Other Treatment Pt rises, agrees to dressing. pt is presented options, provides verbal agreement to shirt/ pants. Pt requires increased cues for initiation/ problem solving during dressing. Pt sit to stand with cues for hand/ foot placement. Pt TD to w/c transfer. Pt sits in front of sink to complete oral/ hand care. Pt propels with max A to gym, max cues and physical positioning for BUE propelling/ LE mobility in w/c. Pt stands at parallel bars with max A to decrease retropulsion; popping noted in sit to stand/ UE movement. Pt requires rest, becomes drowsy between stances. Pt able to completes BUE punches with AAROM to initiate bilateral large motor movements to prep for w/c mobility. Pt positioned in recliner post TD transfer, LEs elevated, all needs met, call light in reach. Education OT Patient Education: Correct positioning, Exercise program, Home exercise program, Modified ADL techniques, Purpose of tx/functional activities, Safety issues, Transfer techniques Teaching Recipient: Patient Teaching Methods: Demonstration, Discussion Response to Teaching: Verbalize Understanding, Return Demonstration, Reinforcement Needed OT Short Term Goals Short Term Goals Time Frame: Mar 04, 2021 Oral hygiene: 5 Toileting hygiene: 5 OT Rumper Goals [facility] Goals Time Frame: Mar 18, 2021 Eating (QC): 6 Oral Hygiene (QC): 6 Toileting Hygiene (QC): 6 Shower/Bathe Self (QC): 4 Upper Body Dressing (QC): 5 Lower Body Dressing (QC): 4 On/Off Footwear (QC): 4 Additional Goals: 1-Demonstrate ADL Tasks, 2-Verbalize Understanding, 3- ImproveStrength/Katherine 1=Demonstrate adherence to instructed precautions during ADL tasks. 2=Patient will verbalize/demonstrate understanding of assistive devices/ modifications for ADL. 3=Patient will improve strength/tolerance for activity to enable patient to perform ADL's. OT Education/Plan Problem List/Assessment Assessment: Decreased Activ Tolerance, Decreased Safety Aware, Decreased UE Strength, Dependent Transfers, Impaired Bed Mobility, Impaired Cognition, Impaired Coordination, Impaired Funct Balance, Impaired I ADL's, Impaired Self- Care Skills Discharge Recommendations Plan/Recommendations: Continue POC Therapy Discharge Recommendati: 24 Hour Supervision, Post Acute OT Treatment Plan/Plan of Care Treatment,Training & Education: Yes Patient would benefit from OT for education, treatment and training to promote independence in ADL's, mobility, safety and/or upper extremity function for ADL's. Plan of Care: ADL Retraining, Functional Mobility, Group Exercise/Act as Ind, UE Funct Exercise/Act Treatment Duration: Mar 18, 2021 Frequency: At least 5 of 7 days/Wk (IRF) Estimated Hrs Per Day: 1.5 hours per day Agreement: Yes Rehab Potential: Fair Time/GCodes Start Time: 09:30 Stop Time: 10:45 Total Time Billed (hr/min): 75 Billed Treatment Time 1, ADL 2, WC, EX2= 75 OT individual tx:[id number] OT/ PT co-treat: [id number] (60) with OT addressing cues/ problem solving/ sequencing/ UE strength and mobility while PT addresses LE strength, functional transfers and w/c mob. TERRENCE HARDY OTR Mar 01, 2021 10:51
--- NOTE | 2021-03-01 10:58 | PM&R Progress Note ---
Subjective HPI/CC On Admission Date Seen by Provider: Mar 01, 2021 Time Seen by Provider: 11:00 Subjective/Events-last exam 03/01/2021: Patient about the same Sleeps a lot of the time No pain is reported Discharge planning 02/28/2021: Patient doing pretty well Sleeps most of the time Had a bowel movement yesterday No major issues or concerns per RN 02/27/2021: Patient doing about the same Complains of left knee pain without injury Patient very cognitive deficient Appears to be very chronically ill 02/26/2021: Mildly hypotensive so holding blood pressure medication for systolic less than 120 Slept pretty well Having some loose bowel movements so holding laxatives Monitoring closely Currently sleeping 02/25/2021: Patient doing pretty well today Oriented x1 Expressive aphasia makes it difficult to communicate Appreciate cardiology consultation Echocardiogram was performed with bubble test Fall risk prevention Check meds and labs Review of Systems Neurological: Weakness, Incoordination, Confusion Objective Exam Vital Signs Vital Signs Date Time Temp Pulse Resp B/P (MAP) Pulse Ox O2 Delivery O2 Flow Rate FiO2 03/01/21 20:30 Room Air 03/01/21 20:00 37.0 61 12 123/58 (79) 95 Capillary Refill : General Appearance: No Apparent Distress, WD/WN, Chronically ill HEENT: PERRL/EOMI, Normal ENT Inspection, Pharynx Normal Neck: Full Range of Motion, Normal Inspection, Non Tender, Supple, Carotid Bru it Respiratory: Chest Non Tender, Lungs Clear, Normal Breath Sounds, No Accessory Muscle Use, No Respiratory Distress Cardiovascular: Regular Rate, Rhythm, No Edema, No Gallop, No JVD, Normal Peripheral Pulses, Systolic Murmur Gastrointestinal: Normal Bowel Sounds, No Organomegaly, No Pulsatile Mass, Non Tender, Soft Back: Normal Inspection, No CVA Tenderness, No Vertebral Tenderness Extremity: Normal Capillary Refill, Normal Inspection, Normal Range of Motion, Non Tender, No Calf Tenderness, No Pedal Edema Neurologic/Psychiatric: Alert, Oriented x3, No Motor/Sensory Deficits, Normal Mood/Affect, Abnormal Gait, Aphasia, Disoriented, Motor Weakness (Generalized) Skin: Normal Color, Warm/Dry Lymphatic: No Adenopathy Results/Procedures Lab Patient resulted labs reviewed. FIM Transfers Therapy Code Descriptions/Definitions Functional [place] Measure: 0=Not Assessed/NA 4=Minimal Assistance 1=Total Assistance 5=Supervision or Setup 2=Maximal Assistance 6=Modified [place] 3=Moderate Assistance 7=Complete IndependenceSCALE: Activities may be completed with or without assistive devices. 9-Hhnytdeyiw-wzuwfxv completes the activity by him/herself with no assistance from a helper. 5-Set-up or Clean-up Assistance-helper sets up or cleans up; patient completes activity. [place] assists only prior to or following the activity. 4-Supervision or Touching Assistance-helper provides verbal cues and/or touching/steadying and/or contact guard assistance as patient completes activity. Assistance may be provided throughout the activity or intermittently. 3-Partial/Moderate Assistance-helper does LESS THAN HALF the effort. [place] lifts, holds or supports trunk or limbs, but provides less than half the effort. 2-Substantial/Maximal Assistance-helper does MORE THAN HALF the effort. [place] lifts or holds trunk or limbs and provides more than half the effort. 4-Iuuftozmu-xlytlw does ALL the effort. Patient does none of the effort to complete the activity. Or, the assistance of 2 or more helpers is required for the patient to complete the activity. If activity was not attempted, code reason: 7-Patient Refused. 9-Not Applicable-not attempted and the patient did not perform the activity be fore the current illness, exacerbation or injury. 10-Not Attempted due to Environmental Limitations-(lack of equipment, weather restraints, etc.). 88-Not Attempted due to Medical Conditions or Safety Concerns. Roll Left to Right (QC): 6 Sit to Lying (QC): 3 Sit to Stand (QC): 1 Chair/Hrz-si-Wkfdj Xfer(QC): 1 Car Transfer (QC): 3 Gait Training Does the Patient Walk?: Yes Walk 10 feet (QC): 4 Walk 50 ft with 2 Turns(QC): 88 Walk 150 ft (QC): 88 Walking 10ft/uneven surface-QC: 88 Gait Assistive Device: FWW Wheelchair Training Does the Pt Use a Wheelchair?: Yes Distance: 150'x2 Wheel 50 ft with 2 turns (QC): 3 Wheel 150 ft (QC): 3 Type of Wheelchair: Manual Stair Training 1 Step (curb) (QC): 88 4 Steps (QC): 88 12 Steps (QC): 88 Balance Picking up an Object (QC): 88 ADL-Treatment Eating (QC): 5 Oral Hygiene (QC): 4 (SBA with cues for initiation. ) Shower/Bathe Self (QC): 1 (TD due to need of Ax2 for bottom. Pt completes all other areas (excluding feet) with s/u and cues for initiation and termination of task.) Upper Body Dressing (QC): 3 (min A with behind the back and buttons) Lower Body Dressing (QC): 1 (mod A threading, TD x2 in stnace for stance and to warehouse order puller hips.) On/Off Footwear (QC): 2 (max A) Toileting Hygiene (QC): 1 (TD) Toilet Transfer (QC): 3 (mod A (pt retropulsive from EOB and requires increased cues for ambulation and mod A sit to stand from commode)) Assessment/Plan Assessment and Plan Assess & Plan/Chief Complaint Assessment: CVA Partial aphasia Receptive aphasia Hypertension Aortic stenosis Chronic atrial fibrillation Memory loss Debility History of Covid Plan: Cardiology consult Inpatient rehab protocol Aggressive therapy Fall risk 02/25/2021: Fall risk prevention Increase independence in ADLs Appreciate cardiology 02/26/2021: Monitor closely Fall risk Monitor confusion 02/27/2021: Knee pain management Monitor closely Fall risk 02/28/2021: Chronic debility Sleeps most of the day 03/01/2021: Monitor closely Sleeps most of the time (1) CVA (cerebral vascular accident) (2) Right sided weakness Status: Acute (3) Aphasia Status: Acute (4) Debility Status: Acute (5) Delirium Status: Acute MAAME LOMBARDO DO Mar 01, 2021 10:58
[2021-03-01 11:41] VITALS: BP 90/52
--- NOTE | 2021-03-01 12:03 | Physical Therapy Daily Note ---
PT Daily Note-Current Subjective Patient very lethargic. Mental Status Patient Orientation: Listless Transfers SCALE: Activities may be completed with or without assistive devices. 9-Pdgwmfvkmq-ocfuees completes the activity by him/herself with no assistance from a helper. 5-Set-up or Clean-up Assistance-helper sets up or cleans up; patient completes activity. [place] assists only prior to or following the activity. 4-Supervision or Touching Assistance-helper provides verbal cues and/or touching/steadying and/or contact guard assistance as patient completes activity. Assistance may be provided throughout the activity or intermittently. 3-Partial/Moderate Assistance-helper does LESS THAN HALF the effort. [place] lifts, holds or supports trunk or limbs, but provides less than half the effort. 2-Substantial/Maximal Assistance-helper does MORE THAN HALF the effort. [place] lifts or holds trunk or limbs and provides more than half the effort. 7-Rvejraryc-tznnjv does ALL the effort. Patient does none of the effort to complete the activity. Or, the assistance of 2 or more helpers is required for the patient to complete the activity. If activity was not attempted, code reason: 7-Patient Refused. 9-Not Applicable-not attempted and the patient did not perform the activity before the current illness, exacerbation or injury. 10-Not Attempted due to Environmental Limitations-(lack of equipment, weather restraints, etc.). 88-Not Attempted due to Medical Conditions or Safety Concerns. Sit to Stand (QC): 1 Chair/Liq-jm-Snlrl Xfer(QC): 1 Assessment Patient dependent assist to return to bed with RN present to perform BP secondary to hypotension. 4 rails up and patient repositioned in bed for comfort. PT Short Term Goals Short Term Goals Time Frame: Mar 04, 2021 Roll Left & Right: 6 Sit to lyin Lying to sitting on side of be: 4 Sit to stand: 4 Chair/cyu-wb-ofxur transfer: 4 Walk 10 feet: 4 Walk 50 feet with two turns: 4 PT Intermediate Goals Intermediate Goals PT Oven Heater Goals Time Frame: Mar 18, 2021 Roll Left & Right (QC): 6 Sit to Lying (QC): 6 Lying-Sitting on Side/Bed(QC): 6 Sit to Stand (QC): 4 (SBA) Chair/Kox-co-Yjzoy Xfer(QC): 4 (SBA) Toilet Transfer (QC): 4 (SBA) Car Transfer (QC): 4 (SBA) Does the Patient Walk: Yes Walk 10 feet (QC): 4 (SBA) Walk 50ft with 2 Turns (QC): 4 (SBA) Walk 150 ft (QC): 88 Walking 10ft on Uneven Surface: 88 1 Step (curb) (QC): 88 4 Steps (QC): 88 12 Steps (QC): 88 Picking up an Object (QC): 88 Wheel 50 feet with 2 turns (QC: 5 Wheel 150 feet: 5 PT Plan Treatment/Plan Treatment Plan: Continue Plan of Care Treatment Plan: Bed Mobility, Education, Functional Activity Katherine, Functional Strength, Group Therapy, Gait, Safety, Therapeutic Exercise, Transfers Treatment Duration: Mar 18, 2021 Frequency: At least 5 of 7 days/Wk (IRF) Estimated Hrs Per Day: 1.5 hours per day Patient and/or Family Agrees t: Yes Time/GCodes Time In: 1150 Time Out: 1200 Total Billed Treatment Time: 10 Total Billed Treatment 1 visit FA 10 min CHRISTI BOYLE PT Mar 01, 2021 12:03
[2021-03-01 13:43] VITALS: BP 131/64
[2021-03-01] MEDS: DICLOFENAC 1% GEL 100 GM (VOLTAREN) TUBE TOP PRN (13:45)
--- NOTE | 2021-03-01 14:26 | Progress Note - Cardiology ---
Cardiology SOAP Progress Note Subjective: Does not report cp or palp or syncope Gen weakness and R-sided weakness Objective: I&O/Vital Signs 03/01/21 03/01/21 03/01/21 03/01/21 07:06 08:39 09:00 11:41 Temp 36.4 Pulse 61 Resp 16 B/P (MAP) 91/55 (67) 90/52 (65) Pulse Ox 93 94 O2 Delivery Room Air Room Air 03/01/21 13:43 B/P (MAP) 131/64 (86) Weight (Pounds): 182 Weight (Ounces): 0.6 Weight (Calculated Kilograms): 77.510597 Constitutional: well-developed, well-nourished, other (appears more alert today; oriented to person and place) Respiratory: chest expansion is symmetric, chest is bilaterally symmetric, lungs clear to auscultation Cardiovascular: regular rate-rhythm, S1 and S2, systolic murmur Gastrointestional: audible bowel sounds Extremities: no lower extremity edema bilateral Neurologic/Psychiatric: other (more alert today, R-hemiparesis) Skin: No rash on exposed areas, No ulcerations on exposed areas A/P: Assessment: 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 Lemos of interventional radiology at [facility] Chronic a-fib documented - had been on OAC with warfarin and was transitioning to Eliquis at time of stroke per records from [facility] Valvular heart disease - Echocardiogram on 02-15-[address] 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 Mar 01, 2021 14:26
[2021-03-01 20:00] VITALS: BP 123/58
[2021-03-01] MEDS: MELATONIN 3 MG TABLET PO PRN (20:24)
[2021-03-01] MEDS: rOPINIRole 1 MG (REQUIP) TABLET PO SCH (20:24)
[2021-03-01] MEDS: LATANOPROST 0.005% (XALATAN) OPHTH SOLN 2.5 ML OU SCH (20:24)
[2021-03-01] MEDS: AMITRIPTYLINE 25 MG (ELAVIL) TAB PO SCH (20:24)
[2021-03-02] MEDS: KCL 20 MEQ TAB (K-DUR) PO SCH (06:50)
[2021-03-02 08:00] VITALS: BP 117/57
[2021-03-02] MEDS: RT--FLUTICASONE/SALMETEROL 232-14 (AIRDUO RespiCLICK) IH SCH ×2 (08:12→19:39)
--- NOTE | 2021-03-02 08:47 | Speech Therapy Daily Note ---
Speech Daily Progress Note Subjective Date Seen by Provider: Mar 02, 2021 Time Seen by Provider: 00:30 Patient was sitting up in her recliner following her breakfast. She was much more alert and participated well. Objective Patient demo orientation to self, however she was not oriented to time or place. Assessment Assessment Current Status: Fair Progress Treatment Plan Continue Plan of Care Speech Short Term Goals Short Term Goals Short Term Goals 1) Patient will complete memory tasks related to her daily needs at 80% or greater with minimal cuing. 2) Patient will complete safety awareness tasks related to her daily needs at 80% or greater with minimal cuing. 3) Patient will complete problem solving tasks related to her daily needs at 80% or greater with minimal cuing. Speech Alf Goals Alf Goals Patient will improve cognitive-communication abilities so that she is able to complete daily tasks with decreased assist. Speech-Plan Patient/Family Goals Patient/Family Goals: Patient plans to return to her home, however due to her status, her discharge location will be determined by the rehab team and patient progress. Treatment Plan Speech Therapy Treatment Plan: Continue Plan of Care Treatment Duration: Mar 11, 2021 Frequency: 4 times per week (Patient will receive skilled ST 4-5x per week) Estimated Hrs Per Day: .5 hour per day Rehab Potential: Fair Barriers to Learning: Patient's moderate cognitive deficits, disorientation Pt/Family Agrees to Plan: Yes Safety Risks/Education Teaching Recipient: Patient Teaching Methods: Discussion Response to Teaching: Verbalize Understanding, Reinforcement Needed Education Topics Provided: Continued safety, reorientation to call light and temporal information Time Speech Therapy Time In: 08:30 Speech Therapy Time Out: 09:00 Total Billed Time: 30 Billed Treatment Time [address] Mar 02, 2021 08:47
[2021-03-02] MEDS: APIXABAN 5 MG (ELIQUIS) TABLET PO SCH ×2 (09:54→20:51)
[2021-03-02] MEDS: ROSUVASTATIN 20 MG (CRESTOR) TABLET PO SCH (09:54)
[2021-03-02] MEDS: GABAPENTIN 300 MG (NEURONTIN) CAP PO SCH ×3 (09:54→20:51)
[2021-03-02] MEDS: FUROSEMIDE 40 MG (LASIX) TAB PO SCH (09:54)
[2021-03-02] MEDS: SPIRONOLACTONE 25 MG (ALDACTONE) TAB PO SCH (09:54)
[2021-03-02] MEDS: NAPHA/PHEN (NAPHCON-A, OPCON-A) OP SOLN 15 ML BTL OS SCH ×4 (09:55→20:52)
[2021-03-02] MEDS: DICLOFENAC 1% GEL 100 GM (VOLTAREN) TUBE TOP PRN (10:02)
--- NOTE | 2021-03-02 10:20 | Occupational Ther Daily Note ---
OT Current Status-Daily Note Subjective Pt awake in chair this am. Pt agrees to tx, more responsive though still requires multiple cues for response. Pt states pain in R knee. OT/ PT co-treat [id number] with PT addressing functional transfers, LE movement, strength and balance while OT addresses ADLs, UE strength, problem solving and adaptive techniques. ADL-Treatment Therapy Code Descriptions/Definitions Functional Gem Measure: 0=Not Assessed/NA 4=Minimal Assistance 1=Total Assistance 5=Supervision or Setup 2=Maximal Assistance 6=Modified Gem 3=Moderate Assistance 7=Complete IndependenceSCALE: Activities may be completed with or without assistive devices. 2-Dortumivhz-ehzkpyg completes the activity by him/herself with no assistance from a helper. 5-Set-up or Clean-up Assistance-helper sets up or cleans up; patient completes activity. [place] assists only prior to or following the activity. 4-Supervision or Touching Assistance-helper provides verbal cues and/or touching /steadying and/or contact guard assistance as patient completes activity. Assistance may be provided throughout the activity or intermittently. 3-Partial/Moderate Assistance-helper does LESS THAN HALF the effort. [place] lifts, holds or supports trunk or limbs, but provides less than half the effort. 2-Substantial/Maximal Assistance-helper does MORE THAN HALF the effort. [place] lifts or holds trunk or limbs and provides more than half the effort. 3-Llmrrgezf-fyiqwl does ALL the effort. Patient does none of the effort to complete the activity. Or, the assistance of 2 or more helpers is required for the patient to complete the activity. If activity was not attempted, code reason: 7-Patient Refused. 9-Not Applicable-not attempted and the patient did not perform the activity before the current illness, exacerbation or injury. 10-Not Attempted due to Environmental Limitations-(lack of equipment, weather restraints, etc.). 88-Not Attempted due to Medical Conditions or Safety Concerns. Shower/Bathe Self (QC): 1 (min A with LB (R foot) though TD with bottom care in stance due to retropulsion. Pt expresses she completes sponge bathing at home. ) Upper Body Dressing (QC): 5 (s/u with gown donning.) Lower Body Dressing (QC): 1 (TD (mod A threading, TD as Ax2 needed in stance to pull pants over hips)) On/Off Footwear: 3 (min A RLE, pt completes LLE with cues.) Toileting Hygiene (QC): 1 (TD (Ax2)) Toilet Transfer (QC): 7 Other Treatment Pt completes sponge bath in chair. Pt requires Ax2 to address functional transfers and stance due to unsafe stance/ retropulsion. Pt SPT to w/c to L side with TD. Pt able to wash hands in front of sink with min cues and physical assist. Pt requires max A to propel (R and LUE assisted for increased ROM and NM reeducation for propelling) w/c to gym. Pt completes reaching task in sit, bilateral UEs reach and trunk flexes forward with increasing increments to encourage similar w/c movement and increased trunk flexion for stance preparation. Pt completes 2 reps of 10. Increased fatigue/ eyes closing upon resting. Pt then stands with assist, though min A in stance with CGAx2 due to less retropulsion. Pt then pushed back to room with w/c instruction (max A). Pt SPT with TD due to increased retropulsion in stance/ knee pain. Pt sits with mod control, positioned for comfort, all needs met, call light in reach, chair alarm on, pt's nurse present upon exit. Education OT Patient Education: Correct positioning, Exercise program, Progress toward Goal/Update tx plan, Purpose of tx/functional activities, Safety issues, Transfer techniques Teaching Recipient: Patient Teaching Methods: Demonstration, Discussion Response to Teaching: Return Demonstration, Unable to Comprehend, Reinforcement Needed OT Short Term Goals Short Term Goals Time Frame: Mar 04, 2021 Oral hygiene: 5 Toileting hygiene: 5 OT Kst Operator Goals Correction Goals Time Frame: Mar 18, 2021 Eating (QC): 6 Oral Hygiene (QC): 6 Toileting Hygiene (QC): 6 Shower/Bathe Self (QC): 4 Upper Body Dressing (QC): 5 Lower Body Dressing (QC): 4 On/Off Footwear (QC): 4 Additional Goals: 1-Demonstrate ADL Tasks, 2-Verbalize Understanding, 3- ImproveStrength/Katherine 1=Demonstrate adherence to instructed precautions during ADL tasks. 2=Patient will verbalize/demonstrate understanding of assistive devices/modifications for ADL. 3=Patient will improve strength/tolerance for activity to enable patient to perform ADL's. OT Education/Plan Problem List/Assessment Assessment: Decreased Activ Tolerance, Decreased Safety Aware, Decreased UE Strength, Dependent Transfers, Impaired Bed Mobility, Impaired Cognition, Impaired Coordination, Impaired Funct Balance, Impaired I ADL's, Impaired Self- Care Skills Discharge Recommendations Plan/Recommendations: Continue POC Therapy Discharge Recommendati: 24 Hour Supervision, Post Acute OT Treatment Plan/Plan of Care Treatment,Training & Education: Yes Patient would benefit from OT for education, treatment and training to promote independence in ADL's, mobility, safety and/or upper extremity function for ADL's. Plan of Care: ADL Retraining, Functional Mobility, Group Exercise/Act as Ind, UE Funct Exercise/Act Treatment Duration: Mar 18, 2021 Frequency: At least 5 of 7 days/Wk (IRF) Estimated Hrs Per Day: 1.5 hours per day Agreement: Yes Rehab Potential: Fair Time/GCodes Start Time: 09:00 Stop Time: 10:00 Total Time Billed (hr/min): 60 Billed Treatment Time OT/ PT co-treat [id number] with PT addressing functional transfers, LE movement, strength and balance while OT addresses ADLs, UE strength, problem solving and adaptive techniques. 1, ADL 3, EX (60) TERRENCE HARDY OTR Mar 02, 2021 10:20
[2021-03-02] MEDS: HYDROcodone/APAP 5 MG/325 MG (LORTAB) TAB PO PRN ×2 (10:31→20:52)
[2021-03-02] MEDS: lisINopril 5 MG (PRINIVIL) TABLET PO SCH (10:31)
[2021-03-02] MEDS: DOCUSATE SODIUM 100 MG (COLACE) CAP PO SCH ×2 (10:39→19:53)
[2021-03-02] MEDS: polyethylene glycoL POWDER 17 GM (MIRALAX) PACK PO SCH ×2 (10:39→19:54)
[2021-03-02] MEDS: SENNA W/DOCUSATE (SENOKOT S) TABLET PO SCH ×2 (10:40→19:54)
--- NOTE | 2021-03-02 11:31 | PM&R Progress Note ---
Subjective HPI/CC On Admission Date Seen by Provider: Mar 02, 2021 Time Seen by Provider: 10:00 Subjective/Events-last exam 03/02/2021: Patient doing pretty well Sleeps most of the time again Via [facility] at discharge Bowels move this morning 03/01/2021: Patient about the same Sleeps a lot of the time No pain is reported Discharge planning 02/28/2021: Patient doing pretty well Sleeps most of the time Had a bowel movement yesterday No major issues or concerns per RN 02/27/2021: Patient doing about the same Complains of left knee pain without injury Patient very cognitive deficient Appears to be very chronically ill 02/26/2021: Mildly hypotensive so holding blood pressure medication for systolic less than 120 Slept pretty well Having some loose bowel movements so holding laxatives Monitoring closely Currently sleeping 02/25/2021: Patient doing pretty well today Oriented x1 Expressive aphasia makes it difficult to communicate Appreciate cardiology consultation Echocardiogram was performed with bubble test Fall risk prevention Check meds and labs Review of Systems General: Fatigue Neurological: Weakness, Incoordination, Confusion Objective Exam Vital Signs Vital Signs Date Time Temp Pulse Resp B/P (MAP) Pulse Ox O2 Delivery O2 Flow Rate FiO2 03/02/21 20:30 Room Air 03/02/21 20:00 36.6 66 18 128/70 (89) 97 Capillary Refill : General Appearance: No Apparent Distress, WD/WN, Chronically ill HEENT: PERRL/EOMI, Normal ENT Inspection, Pharynx Normal Neck: Full Range of Motion, Normal Inspection, Non Tender, Supple, Carotid Bruit Respiratory: Chest Non Tender, Lungs Clear, Normal Breath Sounds, No Accessory Muscle Use, No Respiratory Distress Cardiovascular: Regular Rate, Rhythm, No Edema, No Gallop, No JVD, Normal Peripheral Pulses, Systolic Murmur Gastrointestinal: Normal Bowel Sounds, No Organomegaly, No Pulsatile Mass, Non Tender, Soft Back: Normal Inspection, No CVA Tenderness, No Vertebral Tenderness Extremity: Normal Capillary Refill, Normal Inspection, Normal Range of Motion, Non Tender, No Calf Tenderness, No Pedal Edema Neurologic/Psychiatric: Alert, Oriented x3, No Motor/Sensory Deficits, Normal Mood/Affect, Abnormal Gait, Aphasia, Disoriented, Motor Weakness Skin: Normal Color, Warm/Dry Lymphatic: No Adenopathy Results/Procedures Lab Patient resulted labs reviewed. FIM Transfers Therapy Code Descriptions/Definitions Functional [place] Measure: 0=Not Assessed/NA 4=Minimal Assistance 1=Total Assistance 5=Supervision or Setup 2=Maximal Assistance 6=Modified [place] 3=Moderate Assistance 7=Complete IndependenceSCALE: Activities may be completed with or without assistive devices. 7-Btufemvnqh-xiqhxbn completes the activity by him/herself with no assistance from a helper. 5-Set-up or Clean-up Assistance-helper sets up or cleans up; patient completes activity. [place] assists only prior to or following the activity. 4-Supervision or Touching Assistance-helper provides verbal cues and/or touching/steadying and/or contact guard assistance as patient completes activity. Assistance may be provided throughout the activity or intermittently. 3-Partial/Moderate Assistance-helper does LESS THAN HALF the effort. [place] lifts, holds or supports trunk or limbs, but provides less than half the effort. 2-Substantial/Maximal Assistance-helper does MORE THAN HALF the effort. [place] lifts or holds trunk or limbs and provides more than half the effort. 7-Jmwrnuezl-djfyfq does ALL the effort. Patient does none of the effort to complete the activity. Or, the assistance of 2 or more helpers is required for the patient to complete the activity. If activity was not attempted, code reason: 7-Patient Refused. 9-Not Applicable-not attempted and the patient did not perform the activity before the current illness, exacerbation or injury. 10-Not Attempted due to Environmental Limitations-(lack of equipment, weather restraints, etc.). 88-Not Attempted due to Medical Conditions or Safety Concerns. Roll Left to Right (QC): 6 Sit to Lying (QC): 3 Sit to Stand (QC): 2 Chair/Fzr-ah-Idwzj Xfer(QC): 2 Car Transfer (QC): 3 Gait Training Does the Patient Walk?: Yes Walk 10 feet (QC): 4 Walk 50 ft with 2 Turns(QC): 88 Walk 150 ft (QC): 88 Walking 10ft/uneven surface-QC: 88 Gait Assistive Device: FWW Wheelchair Training Does the Pt Use a Wheelchair?: Yes Distance: 150'x2 Wheel 50 ft with 2 turns (QC): 3 Wheel 150 ft (QC): 3 Type of Wheelchair: Manual Stair Training 1 Step (curb) (QC): 88 4 Steps (QC): 88 12 Steps (QC): 88 Balance Picking up an Object (QC): 88 ADL-Treatment Eating (QC): 5 Oral Hygiene (QC): 4 (SBA with cues for initiation. ) Shower/Bathe Self (QC): 1 (min A with LB (R foot) though TD with bottom care in stance due to retropulsion. Pt expresses she completes sponge bathing at home. ) Upper Body Dressing (QC): 5 (s/u with gown donning.) Lower Body Dressing (QC): 1 (TD (mod A threading, TD as Ax2 needed in stance to pull pants over hips)) On/Off Footwear (QC): 3 (min A RLE, pt completes LLE with cues.) Toileting Hygiene (QC): 1 (TD (Ax2)) Toilet Transfer (QC): 7 Assessment/Plan Assessment and Plan Assess & Plan/Chief Complaint Assessment: CVA Partial aphasia Receptive aphasia Hypertension Aortic stenosis Chronic atrial fibrillation Memory loss Debility History of Covid Plan: Cardiology consult Inpatient rehab protocol Aggressive therapy Fall risk 02/25/2021: Fall risk prevention Increase independence in ADLs Appreciate cardiology 02/26/2021: Monitor closely Fall risk Monitor confusion 02/27/2021: Knee pain management Monitor closely Fall risk 02/28/2021: Chronic debility Sleeps most of the day 03/01/2021: Monitor closely Sleeps most of the time 03/02/2021: Needs detention at discharge Monitor closely (1) CVA (cerebral vascular accident) (2) Right sided weakness Status: Acute (3) Aphasia Status: Acute (4) Debility Status: Acute (5) Delirium Status: Acute MAAME LOMBARDO DO Mar 02, 2021 11:31
--- NOTE | 2021-03-02 12:22 | Physical Therapy Daily Note ---
PT Daily Note-Current Subjective Pt awake in chair this am. Pt agrees to tx, more responsive though still requires multiple cues for response. Pt states pain in R knee. OT/ PT co-treat [id number] with PT addressing functional transfers, LE movement, strength and balance while OT addresses ADLs, UE strength, problem solving and adaptive techniques. Pain Location Body Site: Knee Pain Description: Ache Comment: Pt reports pain when standing but doesn't rate Mental Status Patient Orientation: Person, Confused Transfers SCALE: Activities may be completed with or without assistive devices. 7-Moeaskjhgm-cmlmltz completes the activity by him/herself with no assistance from a helper. 5-Set-up or Clean-up Assistance-helper sets up or cleans up; patient completes activity. [place] assists only prior to or following the activity. 4-Supervision or Touching Assistance-helper provides verbal cues and/or touching/steadying and/or contact guard assistance as patient completes activity. Assistance may be provided throughout the activity or intermittently. 3-Partial/Moderate Assistance-helper does LESS THAN HALF the effort. [place] lifts, holds or supports trunk or limbs, but provides less than half the effort. 2-Substantial/Maximal Assistance-helper does MORE THAN HALF the effort. [place] lifts or holds trunk or limbs and provides more than half the effort. 4-Glhyidolu-zyzinq does ALL the effort. Patient does none of the effort to complete the activity. Or, the assistance of 2 or more helpers is required for the patient to complete the activity. If activity was not attempted, code reason: 7-Patient Refused. 9-Not Applicable-not attempted and the patient did not perform the activity before the current illness, exacerbation or injury. 10-Not Attempted due to Environmental Limitations-(lack of equipment, weather restraints, etc.). 88-Not Attempted due to Medical Conditions or Safety Concerns. Roll Left & Right (QC): 1 Sit to Lying (QC): 1 Lying to Sitting/Side of Bed(Q: 1 Sit to Stand (QC): 1 Chair/Iri-tf-Whlqw Xfer(QC): 1 Toilet Transfer (QC): 1 Car Transfer (QC): 1 Weight Bearing Full Weight Bearing Full Weight Bearing Gait Training Distance: 40' Walk 10 feet (QC): 4 Walk 50 ft with 2 Turns(QC): 88 Walk 150 ft (QC): 88 Walking 10ft/uneven surface-QC: 88 Wheelchair Training Does the Pt Use a Wheelchair?: Yes Wheel 50 ft with 2 turns (QC): 2 Wheel 150 ft (QC): 2 Type of Wheelchair: Manual Stair Training 1 Step (curb) (QC): 88 4 Steps (QC): 88 12 Steps (QC): 88 Balance Picking up an Object (QC): 88 Treatments Pt completes sponge bath in chair. Pt requires Ax2 to address functional transfers and stance due to unsafe stance/ retropulsion. Pt SPT to w/c to L side with TD. Pt able to wash hands in front of sink with min cues and physical assist. Pt requires max A to propel (R and LUE assisted for increased ROM and NM reeducation for propelling) w/c to gym. Pt completes reaching task in sit, bilateral UEs reach and trunk flexes forward with increasing increments to encourage similar w/c movement and increased trunk flexion for stance preparation. Pt completes 2 reps of 10. Increased fatigue/ eyes closing upon resting. Pt then stands with assist, though min A in stance with CGAx2 due to less retropulsion. Pt then pushed back to room with w/c instruction (max A). Pt SPT with TD due to increased retropulsion in stance/ knee pain. Pt sits with mod control, positioned for comfort, all needs met, call light in reach, chair alarm on, pt's nurse present upon exit. Assessment Current Status: Poor Progress Pt has made little progress and fatigues easily. PT Short Term Goals Short Term Goals Time Frame: Mar 04, 2021 Roll Left & Right: 6 Sit to lyin Lying to sitting on side of be: 4 Sit to stand: 4 Chair/pyr-in-tronv transfer: 4 Walk 10 feet: 4 Walk 50 feet with two turns: 4 PT Group Home Goals Alterations Tailor Goals PT Alterations Tailor Goals Time Frame: Mar 18, 2021 Roll Left & Right (QC): 6 Sit to Lying (QC): 6 Lying-Sitting on Side/Bed(QC): 6 Sit to Stand (QC): 4 (SBA) Chair/Ofm-si-Kktzo Xfer(QC): 4 (SBA) Toilet Transfer (QC): 4 (SBA) Car Transfer (QC): 4 (SBA) Does the Patient Walk: Yes Walk 10 feet (QC): 4 (SBA) Walk 50ft with 2 Turns (QC): 4 (SBA) Walk 150 ft (QC): 88 Walking 10ft on Uneven Surface: 88 1 Step (curb) (QC): 88 4 Steps (QC): 88 12 Steps (QC): 88 Picking up an Object (QC): 88 Wheel 50 feet with 2 turns (QC: 5 Wheel 150 feet: 5 PT Plan Problem List Problem List: Activity Tolerance, Functional Strength, Safety, Balance, Gait, Transfer Treatment/Plan Treatment Plan: Continue Plan of Care Treatment Plan: Bed Mobility, Education, Functional Activity Katherine, Functional Strength, Group Therapy, Gait, Safety, Therapeutic Exercise, Transfers Treatment Duration: Mar 18, 2021 Frequency: At least 5 of 7 days/Wk (IRF) Estimated Hrs Per Day: 1.5 hours per day Patient and/or Family Agrees t: Yes Safety Risks/Education Patient Education: Transfer Techniques, Correct Positioning, Safety Issues Teaching Recipient: Patient Teaching Methods: Discussion Response to Teaching: Verbalize Understanding Time/GCodes Time In: 900 Time Out: 1000 Total Billed Treatment Time: 60 Total Billed Treatment 1, [facility] (20m) & FA x3 (40m) Co-treat w/OT for 60m ARABELLAFITO VARGHESE STAFF EDUCATOR Mar 02, 2021 12:22
--- NOTE | 2021-03-02 15:27 | Therapy Group Daily Note ---
Therapy Daily Group Note Patient Education Topic Energy Cons Exercises LE Seated Exercise, UE Exercise Session Ratio (pt:therapist): 3:1 Goal of Session: Energy Conservation Tech., UE/LE Strengthing Goal Met for this Session: No Pt Benefit of Group: F/U Use of Strategies @Home, Increased Functional Safety, Increased Functional Strength, Socialization Other/Notes Pt was propelled w/c to [facility] to participate in OT/PT group. Group consisted of introductions (name, place living, favorite summer activity), socialization, seated B UE/LE exercise and energy conservation education. Pt introduced self appropriately with assistance from staff and continually fell asleep during Group, prompting staff to awaken pt. Pt able to complete B UE & LE EX with VC & demonstration given. After session, pt lying in bed with call light/phone in reach. All needs met in room. Start Time: 13:00 Stop Time: 14:00 Total Billed Treatment Time: 60 Total Billed Treatment 1, GRP FITO FAUSTIN NUCLEAR STATION OPERATOR Mar 02, 2021 15:27
[2021-03-02 20:00] VITALS: BP 128/70
[2021-03-02] MEDS: rOPINIRole 1 MG (REQUIP) TABLET PO SCH (20:51)
[2021-03-02] MEDS: MELATONIN 3 MG TABLET PO PRN (20:51)
[2021-03-02] MEDS: AMITRIPTYLINE 25 MG (ELAVIL) TAB PO SCH (20:51)
[2021-03-02] MEDS: LATANOPROST 0.005% (XALATAN) OPHTH SOLN 2.5 ML OU SCH (20:52)
[2021-03-03] MEDS: HYDROcodone/APAP 5 MG/325 MG (LORTAB) TAB PO PRN ×3 (06:14→20:10)
[2021-03-03] MEDS: KCL 20 MEQ TAB (K-DUR) PO SCH (06:14)
[2021-03-03] MEDS: RT--FLUTICASONE/SALMETEROL 232-14 (AIRDUO RespiCLICK) IH SCH ×2 (07:07→18:34)
[2021-03-03 08:00] VITALS: BP 93/52
[2021-03-03] MEDS: lisINopril 5 MG (PRINIVIL) TABLET PO SCH (08:14)
[2021-03-03] MEDS: SPIRONOLACTONE 25 MG (ALDACTONE) TAB PO SCH (08:14)
[2021-03-03] MEDS: ROSUVASTATIN 20 MG (CRESTOR) TABLET PO SCH (08:14)
[2021-03-03] MEDS: APIXABAN 5 MG (ELIQUIS) TABLET PO SCH ×2 (08:14→20:10)
[2021-03-03] MEDS: FUROSEMIDE 40 MG (LASIX) TAB PO SCH (08:14)
[2021-03-03] MEDS: NAPHA/PHEN (NAPHCON-A, OPCON-A) OP SOLN 15 ML BTL OS SCH ×4 (08:15→20:09)
[2021-03-03] MEDS: GABAPENTIN 300 MG (NEURONTIN) CAP PO SCH ×3 (08:17→20:10)
[2021-03-03] MEDS ORDERED: VERA240T14 PO (08:44)
[2021-03-03] MEDS ORDERED: ATEN50TA PO (08:44)
[2021-03-03] MEDS ORDERED: PRAV10TA PO (08:44)
[2021-03-03] MEDS ORDERED: MELO-170 PO (08:44)
[2021-03-03] MEDS: DOCUSATE SODIUM 100 MG (COLACE) CAP PO SCH ×2 (09:00→19:44)
[2021-03-03] MEDS: SENNA W/DOCUSATE (SENOKOT S) TABLET PO SCH ×2 (09:00→19:45)
[2021-03-03] MEDS: polyethylene glycoL POWDER 17 GM (MIRALAX) PACK PO SCH ×2 (09:00→19:45)
--- NOTE | 2021-03-03 10:11 | Occupational Ther Daily Note ---
OT Current Status-Daily Note Subjective Pt alert, sitting in recliner. Pt agrees to therapy. Pt c/o pain when moving B knees. Mental Status/Objective Patient Orientation: Person ADL-Treatment Co-treat with PT ([id number]), skills of 2 clinicians required for skilled instruction and care due to fall risk, decreased mobility and increased pain. PT focusing on transfers, standing and mobility while OT focusing on functional mobility and ADLs. After set up, pt able to don/doff upper body clothing by self. Dependent to complete lower body dressing. Assist x2 in standing to cleanse self after voiding, assist x2 to manipulate briefs. Sitting at sink, pt completes oral care and Therapy Code Descriptions/Definitions Functional [place] Measure: 0=Not Assessed/NA 4=Minimal Assistance 1=Total Assistance 5=Supervision or Setup 2=Maximal Assistance 6=Modified [place] 3=Moderate Assistance 7=Complete IndependenceSCALE: Activities may be completed with or without assistive devices. 8-Kjnocsuezy-yykixfi completes the activity by him/herself with no assistance from a helper. 5-Set-up or Clean-up Assistance-helper sets up or cleans up; patient completes activity. [place] assists only prior to or following the activity. 4-Supervision or Touching Assistance-helper provides verbal cues and/or touching/steadying and/or contact guard assistance as patient completes activity. Assistance may be provided throughout the activity or intermittently. 3-Partial/Moderate Assistance-helper does LESS THAN HALF the effort. [place] lifts, holds or supports trunk or limbs, but provides less than half the effort. 2-Substantial/Maximal Assistance-helper does MORE THAN HALF the effort. [place] lifts or holds trunk or limbs and provides more than half the effort. 9-Wcchrwvnd-tfacmq does ALL the effort. Patient does none of the effort to complete the activity. Or, the assistance of 2 or more helpers is required for the patient to complete the activity. If activity was not attempted, code reason: 7-Patient Refused. 9-Not Applicable-not attempted and the patient did not perform the activity before the current illness, exacerbation or injury. 10-Not Attempted due to Environmental Limitations-(lack of equipment, weather restraints, etc.). 88-Not Attempted due to Medical Conditions or Safety Concerns. Eating (QC): 5 Oral Hygiene (QC): 6 Upper Body Dressing (QC): 5 Lower Body Dressing (QC): 1 On/Off Footwear: 2 Toileting Hygiene (QC): 1 Toilet Transfer (QC): 1 Other Treatment Working on pt's sit to stand pushing up from w/c and grasping FWW, max A x2. Placed pt in w/c in front of parallel bars to have pt pull to stand, mod A x2. Pt then requested to go back to bed. Min A x2 to transfer back to bed. After session, pt in bed with call light/phone in reach. All needs met in room. OT Short Term Goals Short Term Goals Time Frame: Mar 04, 2021 Oral hygiene: 5 Toileting hygiene: 5 OT New Car Inspector Goals Half-Way Goals Time Frame: Mar 18, 2021 Eating (QC): 6 Oral Hygiene (QC): 6 Toileting Hygiene (QC): 6 Shower/Bathe Self (QC): 4 Upper Body Dressing (QC): 5 Lower Body Dressing (QC): 4 On/Off Footwear (QC): 4 Additional Goals: 1-Demonstrate ADL Tasks, 2-Verbalize Understanding, 3- ImproveStrength/Katherine 1=Demonstrate adherence to instructed precautions during ADL tasks. 2=Patient will verbalize/demonstrate understanding of assistive devices/modifications for ADL. 3=Patient will improve strength/tolerance for activity to enable patient to perform ADL's. OT Education/Plan Problem List/Assessment Assessment: Decreased Activ Tolerance, Decreased Safety Aware, Decreased UE Strength, Dependent Transfers, Impaired Coordination, Impaired Funct Balance, Impaired Self-Care Skills Discharge Recommendations Plan/Recommendations: Continue POC Treatment Plan/Plan of Care Patient would benefit from OT for education, treatment and training to promote independence in ADL's, mobility, safety and/or upper extremity function for ADL's. Plan of Care: ADL Retraining, Functional Mobility, Group Exercise/Act as Ind, UE Funct Exercise/Act Treatment Duration: Mar 18, 2021 Frequency: At least 5 of 7 days/Wk (IRF) Estimated Hrs Per Day: 1.5 hours per day Agreement: Yes Rehab Potential: Fair Time/GCodes Start Time: 09:00 Stop Time: 10:15 Total Time Billed (hr/min): 75 Billed Treatment Time 1 visit-ADL 3 (45 min) FA 3 (45 min) RUPINDER ANGULO Mar 03, 2021 10:11
--- NOTE | 2021-03-03 10:15 | Physical Therapy Daily Note ---
PT Daily Note-Current Transfers SCALE: Activities may be completed with or without assistive devices. 9-Bqqkybbiss-zmwvbrf completes the activity by him/herself with no assistance from a helper. 5-Set-up or Clean-up Assistance-helper sets up or cleans up; patient completes activity. [place] assists only prior to or following the activity. 4-Supervision or Touching Assistance-helper provides verbal cues and/or touching/steadying and/or contact guard assistance as patient completes activity. Assistance may be provided throughout the activity or intermittently. 3-Partial/Moderate Assistance-helper does LESS THAN HALF the effort. [place] lifts, holds or supports trunk or limbs, but provides less than half the effort. 2-Substantial/Maximal Assistance-helper does MORE THAN HALF the effort. [place] lifts or holds trunk or limbs and provides more than half the effort. 5-Lngffalbc-nscppn does ALL the effort. Patient does none of the effort to complete the activity. Or, the assistance of 2 or more helpers is required for the patient to complete the activity. If activity was not attempted, code reason: 7-Patient Refused. 9-Not Applicable-not attempted and the patient did not perform the activity before the current illness, exacerbation or injury. 10-Not Attempted due to Environmental Limitations-(lack of equipment, weather restraints, etc.). 88-Not Attempted due to Medical Conditions or Safety Concerns. Sit to Lying (QC): 4 Sit to Stand (QC): 1 Weight Bearing Full Weight Bearing Full Weight Bearing Wheelchair Training Does the Pt Use a Wheelchair?: Yes Wheel 50 ft with 2 turns (QC): 2 Wheel 150 ft (QC): 2 Type of Wheelchair: Manual Treatments Co-treat with PT ([id number]), skills of 2 clinicians required for skilled instruction and care due to fall risk, decreased mobility and increased pain. PT focusing on transfers, standing and mobility while OT focusing on functional mobility and ADLs. After set up, pt able to don/doff upper body clothing by self. Dependent to complete lower body dressing. Assist x2 in standing to cleanse self after voiding, assist x2 to manipulate briefs. Sitting at sink, pt completes oral care and brushes hair with assistance. Working on pt's sit to stand pushing up from w/c and grasping FWW, max A x2. Placed pt in w/c in front of parallel bars to have pt pull to stand, mod A x2. Pt then requested to go back to bed. Min A x2 EOB to Supine. After session, pt in bed with call light/phone in reach. All needs met in room. Assessment Current Status: Poor Progress Pt is limited by R knee pain reported with standing. PT Short Term Goals Short Term Goals Time Frame: Mar 04, 2021 Roll Left & Right: 6 Sit to lyin Lying to sitting on side of be: 4 Sit to stand: 4 Chair/fpf-cf-bjcpc transfer: 4 Walk 10 feet: 4 Walk 50 feet with two turns: 4 PT Mechanical Engineering Manager Goals Mechanical Engineering Manager Goals PT Residential Goals Time Frame: Mar 18, 2021 Roll Left & Right (QC): 6 Sit to Lying (QC): 6 Lying-Sitting on Side/Bed(QC): 6 Sit to Stand (QC): 4 (SBA) Chair/Say-ve-Kkrih Xfer(QC): 4 (SBA) Toilet Transfer (QC): 4 (SBA) Car Transfer (QC): 4 (SBA) Does the Patient Walk: Yes Walk 10 feet (QC): 4 (SBA) Walk 50ft with 2 Turns (QC): 4 (SBA) Walk 150 ft (QC): 88 Walking 10ft on Uneven Surface: 88 1 Step (curb) (QC): 88 4 Steps (QC): 88 12 Steps (QC): 88 Picking up an Object (QC): 88 Wheel 50 feet with 2 turns (QC: 5 Wheel 150 feet: 5 PT Plan Problem List Problem List: Activity Tolerance, Functional Strength, Safety, Balance, Transfer Treatment/Plan Treatment Plan: Continue Plan of Care Treatment Plan: Bed Mobility, Education, Functional Activity Katherine, Functional Strength, Group Therapy, Gait, Safety, Therapeutic Exercise, Transfers Treatment Duration: Mar 18, 2021 Frequency: At least 5 of 7 days/Wk (IRF) Estimated Hrs Per Day: 1.5 hours per day Patient and/or Family Agrees t: Yes Safety Risks/Education Patient Education: Transfer Techniques, Correct Positioning, W/C Management, Safety Issues Teaching Recipient: Patient Teaching Methods: Discussion Response to Teaching: Reinforcement Needed Time/GCodes Time In: 900 Time Out: 1015 Total Billed Treatment Time: 75 Total Billed Treatment 1, [facility] (15m) & FA x4 (60m) Co-treat w/OT for 75m FITO FAUSTIN STORE OPERATIONS SPECIALIST Mar 03, 2021 10:15
--- NOTE | 2021-03-03 11:16 | PM&R Progress Note ---
Subjective HPI/CC On Admission Date Seen by Provider: Mar 03, 2021 Time Seen by Provider: 11:20 Subjective/Events-last exam 03/03/2021: Patient about the same Has plateaued I spoke with medical billing specialist for insurance and he declined skilled care even though she has no formal plan for discharge and she will need long-term care assisted Cognitive deficit noted making it slow recovery if at all 03/02/2021: Patient doing pretty well Sleeps most of the time again Via [facility] at discharge Bowels move this morning 03/01/2021: Patient about the same Sleeps a lot of the time No pain is reported Discharge planning 02/28/2021: Patient doing pretty well Sleeps most of the time Had a bowel movement yesterday No major issues or concerns per RN 02/27/2021: Patient doing about the same Complains of left knee pain without injury Patient very cognitive deficient Appears to be very chronically ill 02/26/2021: Mildly hypotensive so holding blood pressure medication for systolic less than 120 Slept pretty well Having some loose bowel movements so holding laxatives Monitoring closely Currently sleeping 02/25/2021: Patient doing pretty well today Oriented x1 Expressive aphasia makes it difficult to communicate Appreciate cardiology consultation Echocardiogram was performed with bubble test Fall risk prevention Check meds and labs Review of Systems General: Fatigue, Malaise Neurological: Weakness, Incoordination, Confusion Objective Exam Vital Signs Vital Signs Date Time Temp Pulse Resp B/P (MAP) Pulse Ox O2 Delivery O2 Flow Rate FiO2 03/03/21 20:10 Room Air 03/03/21 20:00 36.4 64 18 108/55 (72) 94 Capillary Refill : General Appearance: No Apparent Distress, WD/WN, Chronically ill HEENT: PERRL/EOMI, Normal ENT Inspection, Pharynx Normal Neck: Full Range of Motion, Normal Inspection, Non Tender, Supple, Carotid Bruit Respiratory: Chest Non Tender, Lungs Clear, Normal Breath Sounds, No Accessory Muscle Use, No Respiratory Distress Cardiovascular: Regular Rate, Rhythm, No Edema, No Gallop, No JVD, Normal Peripheral Pulses, Systolic Murmur Gastrointestinal: Normal Bowel Sounds, No Organomegaly, No Pulsatile Mass, Non Tender, Soft Back: Normal Inspection, No CVA Tenderness, No Vertebral Tenderness Extremity: Normal Capillary Refill, Normal Inspection, Normal Range of Motion, Non Tender, No Calf Tenderness, No Pedal Edema Neurologic/Psychiatric: Alert, Oriented x3, No Motor/Sensory Deficits, Normal Mood/Affect, Abnormal Gait, Aphasia, Disoriented, Motor Weakness Skin: Normal Color, Warm/Dry Lymphatic: No Adenopathy Results/Procedures Lab Patient resulted labs reviewed. FIM Transfers Therapy Code Descriptions/Definitions Functional [place] Measure: 0=Not Assessed/NA 4=Minimal Assistance 1=Total Assistance 5=Supervision or Setup 2=Maximal Assistance 6=Modified [place] 3=Moderate Assistance 7=Complete IndependenceSCALE: Activities may be completed with or without assistive devices. 5-Lukdrdozot-efomtda completes the activity by him/herself with no assistance from a helper. 5-Set-up or Clean-up Assistance-helper sets up or cleans up; patient completes activity. [place] assists only prior to or following the activity. 4-Supervision or Touching Assistance-helper provides verbal cues and/or touching/steadying and/or contact guard assistance as patient completes activity. Assistance may be provided throughout the activity or intermittently. 3-Partial/Moderate Assistance-helper does LESS THAN HALF the effort. [place] lifts, holds or supports trunk or limbs, but provides less than half the effort. 2-Substantial/Maximal Assistance-helper does MORE THAN HALF the effort. [place] lifts or holds trunk or limbs and provides more than half the effort. 3-Avlqpdejr-dwhqhg does ALL the effort. Patient does none of the effort to complete the activity. Or, the assistance of 2 or more helpers is required for the patient to complete the activity. If activity was not attempted, code reason: 7-Patient Refused. 9-Not Applicable-not attempted and the patient did not perform the activity before the current illness, exacerbation or injury. 10-Not Attempted due to Environmental Limitations-(lack of equipment, weather restraints, etc.). 88-Not Attempted due to Medical Conditions or Safety Concerns. Roll Left to Right (QC): 1 Sit to Lying (QC): 1 Sit to Stand (QC): 1 Chair/Dac-ib-Abjkv Xfer(QC): 1 Car Transfer (QC): 1 Gait Training Does the Patient Walk?: Yes Distance: 40' Walk 10 feet (QC): 4 Walk 50 ft with 2 Turns(QC): 88 Walk 150 ft (QC): 88 Walking 10ft/uneven surface-QC: 88 Gait Assistive Device: FWW Wheelchair Training Does the Pt Use a Wheelchair?: Yes Distance: 150'x2 Wheel 50 ft with 2 turns (QC): 2 Wheel 150 ft (QC): 2 Type of Wheelchair: Manual Stair Training 1 Step (curb) (QC): 88 4 Steps (QC): 88 12 Steps (QC): 88 Balance Picking up an Object (QC): 88 ADL-Treatment Eating (QC): 5 Oral Hygiene (QC): 6 Shower/Bathe Self (QC): 1 (min A with LB (R foot) though TD with bottom care in stance due to retropulsion. Pt expresses she completes sponge bathing at home. ) Upper Body Dressing (QC): 5 Lower Body Dressing (QC): 1 On/Off Footwear (QC): 2 Toileting Hygiene (QC): 1 Toilet Transfer (QC): 1 Assessment/Plan Assessment and Plan Assess & Plan/Chief Complaint Assessment: CVA Partial aphasia Receptive aphasia Hypertension Aortic stenosis Chronic atrial fibrillation Memory loss Debility History of Covid Plan: Cardiology consult Inpatient rehab protocol Aggressive therapy Fall risk 02/25/2021: Fall risk prevention Increase independence in ADLs Appreciate cardiology 02/26/2021: Monitor closely Fall risk Monitor confusion 02/27/2021: Knee pain management Monitor closely Fall risk 02/28/2021: Chronic debility Sleeps most of the day 03/01/2021: Monitor closely Sleeps most of the time 03/02/2021: Needs assisted at discharge Monitor closely 03/03/2021: Insurance denied assisted admit Monitor closely (1) CVA (cerebral vascular accident) (2) Right sided weakness Status: Acute (3) Aphasia Status: Acute (4) Debility Status: Acute (5) Delirium Status: Acute MAAME LOMBARDO DO Mar 03, 2021 11:16
--- NOTE | 2021-03-03 13:54 | Speech Therapy Daily Note ---
Speech Daily Progress Note Subjective Date Seen by Provider: Mar 03, 2021 Time Seen by Provider: 00:30 Patient was sitting up in her recliner, requested to go to the restroom. Nursing called to transfer to bedside commode. Objective Patient completed simple y/n questions at 60% with mod to max repetitions and/or verbal cuing. Assessment Assessment Current Status: Fair Progress Treatment Plan Continue Plan of Care Speech Short Term Goals Short Term Goals Short Term Goals 1) Patient will complete memory tasks related to her daily needs at 80% or greater with minimal cuing. 2) Patient will complete safety awareness tasks related to her daily needs at 80% or greater with minimal cuing. 3) Patient will complete problem solving tasks related to her daily needs at 80% or greater with minimal cuing. Speech Physician Gynecologist Goals Physician Gynecologist Goals Patient will improve cognitive-communication abilities so that she is able to complete daily tasks with decreased assist. Speech-Plan Patient/Family Goals Patient/Family Goals: Patient was denied by insurance for discharge to SNF at this time. She will continue current status as inpatient. Treatment Plan Speech Therapy Treatment Plan: Continue Plan of Care Treatment Duration: Mar 11, 2021 Frequency: 4 times per week (Patient will receive skilled ST 4-5x per week) Estimated Hrs Per Day: .5 hour per day Rehab Potential: Fair Barriers to Learning: Patient's current medical status, age Pt/Family Agrees to Plan: Yes Safety Risks/Education Teaching Recipient: Patient Teaching Methods: Demonstration, Discussion Response to Teaching: Verbalize Understanding, Return Demonstration, Reinforcement Needed Education Topics Provided: Continued safety and communication of wants/needs Time Speech Therapy Time In: 13:30 Speech Therapy Time Out: 14:00 Total Billed Time: 30 Billed Treatment Time 1P[address] Mar 03, 2021 13:54
[2021-03-03 20:00] VITALS: BP 108/55
[2021-03-03] MEDS: LATANOPROST 0.005% (XALATAN) OPHTH SOLN 2.5 ML OU SCH (20:09)
[2021-03-03] MEDS: MELATONIN 3 MG TABLET PO PRN (20:10)
[2021-03-03] MEDS: AMITRIPTYLINE 25 MG (ELAVIL) TAB PO SCH (20:10)
[2021-03-03] MEDS: rOPINIRole 1 MG (REQUIP) TABLET PO SCH (20:10)
--- NOTE | 2021-03-04 06:19 | PM&R Progress Note ---
Subjective HPI/CC On Admission Date Seen by Provider: Mar 04, 2021 Time Seen by Provider: 12:00 Subjective/Events-last exam 03/04/2021: Patient doing really well Son who came in really help the situation Now she is communicating a walking very well Asked the son to come in more often 03/03/2021: Patient about the same Has plateaued I spoke with electromedical equipment technician for insurance and he declined skilled care even though she has no formal plan for discharge and she will need long-term care penitentiary Cognitive deficit noted making it slow recovery if at all 03/02/2021: Patient doing pretty well Sleeps most of the time again [facility] at discharge Bowels move this morning 03/01/2021: Patient about the same Sleeps a lot of the time No pain is reported Discharge planning 02/28/2021: Patient doing pretty well Sleeps most of the time Had a bowel movement yesterday No major issues or concerns per RN 02/27/2021: Patient doing about the same Complains of left knee pain without injury Patient very cognitive deficient Appears to be very chronically ill 02/26/2021: Mildly hypotensive so holding blood pressure medication for systolic less than 120 Slept pretty well Having some loose bowel movements so holding laxatives Monitoring closely Currently sleeping 02/25/2021: Patient doing pretty well today Oriented x1 Expressive aphasia makes it difficult to communicate Appreciate cardiology consultation Echocardiogram was performed with bubble test Fall risk prevention Check meds and labs Review of Systems General: Fatigue, Malaise Neurological: Weakness, Confusion Objective Exam Vital Signs Vital Signs Date Time Temp Pulse Resp B/P (MAP) Pulse Ox O2 Delivery O2 Flow Rate FiO2 03/04/21 21:00 Room Air 03/04/21 20:00 36.6 63 18 133/60 (84) 94 Capillary Refill : General Appearance: No Apparent Distress, WD/WN, Chronically ill HEENT: PERRL/EOMI, Normal ENT Inspection, Pharynx Normal Neck: Full Range of Motion, Normal Inspection, Non Tender, Supple, Carotid Bruit Respiratory: Chest Non Tender, Lungs Clear, Normal Breath Sounds, No Accessory Muscle Use, No Respiratory Distress Cardiovascular: Regular Rate, Rhythm, No Edema, No Gallop, No JVD, Normal Peripheral Pulses, Systolic Murmur Gastrointestinal: Normal Bowel Sounds, No Organomegaly, No Pulsatile Mass, Non Tender, Soft Back: Normal Inspection, No CVA Tenderness, No Vertebral Tenderness Extremity: Normal Capillary Refill, Normal Inspection, Normal Range of Motion, Non Tender, No Calf Tenderness, No Pedal Edema Neurologic/Psychiatric: Alert, Oriented x3, No Motor/Sensory Deficits, Normal Mood/Affect, Abnormal Gait, Aphasia, Disoriented, Motor Weakness Skin: Normal Color, Warm/Dry Lymphatic: No Adenopathy Results/Procedures Lab Patient resulted labs reviewed. FIM Transfers Therapy Code Descriptions/Definitions Functional [place] Measure: 0=Not Assessed/NA 4=Minimal Assistance 1=Total Assistance 5=Supervision or Setup 2=Maximal Assistance 6=Modified [place] 3=Moderate Assistance 7=Complete IndependenceSCALE: Activities may be completed with or without assistive devices. 8-Lsvvjsavil-hktsuvx completes the activity by him/herself with no assistance from a helper. 5-Set-up or Clean-up Assistance-helper sets up or cleans up; patient completes activity. [place] assists only prior to or following the activity. 4-Supervision or Touching Assistance-helper provides verbal cues and/or touching/steadying and/or contact guard assistance as patient completes activi ty. Assistance may be provided throughout the activity or intermittently. 3-Partial/Moderate Assistance-helper does LESS THAN HALF the effort. [place] lifts, holds or supports trunk or limbs, but provides less than half the effort. 2-Substantial/Maximal Assistance-helper does MORE THAN HALF the effort. [place] lifts or holds trunk or limbs and provides more than half the effort. 0-Xpyzotyzs-fyferl does ALL the effort. Patient does none of the effort to complete the activity. Or, the assistance of 2 or more helpers is required for the patient to complete the activity. If activity was not attempted, code reason: 7-Patient Refused. 9-Not Applicable-not attempted and the patient did not perform the activity before the current illness, exacerbation or injury. 10-Not Attempted due to Environmental Limitations-(lack of equipment, weather restraints, etc.). 88-Not Attempted due to Medical Conditions or Safety Concerns. Roll Left to Right (QC): 1 Sit to Lying (QC): 4 Sit to Stand (QC): 1 Chair/Mzp-cf-Jhgdb Xfer(QC): 1 Car Transfer (QC): 1 Gait Training Does the Patient Walk?: Yes Distance: 40' Walk 10 feet (QC): 4 Walk 50 ft with 2 Turns(QC): 88 Walk 150 ft (QC): 88 Walking 10ft/uneven surface-QC: 88 Gait Assistive Device: FWW Wheelchair Training Does the Pt Use a Wheelchair?: Yes Distance: 150'x2 Wheel 50 ft with 2 turns (QC): 2 Wheel 150 ft (QC): 2 Type of Wheelchair: Manual Stair Training 1 Step (curb) (QC): 88 4 Steps (QC): 88 12 Steps (QC): 88 Balance Picking up an Object (QC): 88 ADL-Treatment Eating (QC): 5 Oral Hygiene (QC): 6 Shower/Bathe Self (QC): 1 (min A with LB (R foot) though TD with bottom care in stance due to retropulsion. Pt expresses she completes sponge bathing at home. ) Upper Body Dressing (QC): 5 Lower Body Dressing (QC): 1 On/Off Footwear (QC): 2 Toileting Hygiene (QC): 1 Toilet Transfer (QC): 1 Assessment/Plan Assessment and Plan Assess & Plan/Chief Complaint Assessment: CVA Partial aphasia Receptive aphasia Hypertension Aortic stenosis Chronic atrial fibrillation Memory loss Debility History of Covid Plan: Cardiology consult Inpatient rehab protocol Aggressive therapy Fall risk 02/25/2021: Fall risk prevention Increase independence in ADLs Appreciate cardiology 02/26/2021: Monitor closely Fall risk Monitor confusion 02/27/2021: Knee pain management Monitor closely Fall risk 02/28/2021: Chronic debility Sleeps most of the day 03/01/2021: Monitor closely Sleeps most of the time 03/02/2021: Needs penitentiary at discharge Monitor closely 03/03/2021: Insurance denied penitentiary admit Monitor closely 03/04/2021: Dramatically improved with son in the room Monitor closely (1) CVA (cerebral vascular accident) (2) Right sided weakness Status: Acute (3) Aphasia Status: Acute (4) Debility Status: Acute (5) Delirium Status: Acute MAAME LOMBARDO DO Mar 04, 2021 06:19
[2021-03-04] MEDS: KCL 20 MEQ TAB (K-DUR) PO SCH (06:32)
[2021-03-04 08:00] VITALS: BP 128/59
[2021-03-04] MEDS: APIXABAN 5 MG (ELIQUIS) TABLET PO SCH ×2 (08:33→20:48)
[2021-03-04] MEDS: FUROSEMIDE 40 MG (LASIX) TAB PO SCH (08:33)
[2021-03-04] MEDS: SPIRONOLACTONE 25 MG (ALDACTONE) TAB PO SCH (08:33)
[2021-03-04] MEDS: GABAPENTIN 300 MG (NEURONTIN) CAP PO SCH ×3 (08:33→20:48)
[2021-03-04] MEDS: lisINopril 5 MG (PRINIVIL) TABLET PO SCH (08:34)
[2021-03-04] MEDS: HYDROcodone/APAP 5 MG/325 MG (LORTAB) TAB PO PRN ×2 (08:34→17:22)
[2021-03-04] MEDS: ROSUVASTATIN 20 MG (CRESTOR) TABLET PO SCH (08:34)
[2021-03-04] MEDS: NAPHA/PHEN (NAPHCON-A, OPCON-A) OP SOLN 15 ML BTL OS SCH ×4 (08:36→20:49)
[2021-03-04] MEDS: polyethylene glycoL POWDER 17 GM (MIRALAX) PACK PO SCH ×2 (09:00→20:49)
[2021-03-04] MEDS: SENNA W/DOCUSATE (SENOKOT S) TABLET PO SCH ×2 (09:00→20:49)
[2021-03-04] MEDS: DOCUSATE SODIUM 100 MG (COLACE) CAP PO SCH ×2 (09:00→20:49)
[2021-03-04] MEDS: RT--FLUTICASONE/SALMETEROL 232-14 (AIRDUO RespiCLICK) IH SCH ×2 (09:20→19:10)
--- NOTE | 2021-03-04 10:15 | Progress Note - Cardiology ---
Cardiology SOAP Progress Note Subjective: Gen weakness and malaise Loss of power on the R No cp or palp or syncope No n/v/d Objective: I&O/Vital Signs 03/04/21 03/04/21 08:00 09:40 Temp 36.2 Pulse 61 Resp 16 B/P (MAP) 128/59 (82) Pulse Ox 93 94 O2 Delivery Room Air Room Air Weight (Pounds): 182 Weight (Ounces): 0.6 Weight (Calculated Kilograms): 77.216034 Constitutional: well-developed, well-nourished, other (appears more alert today and answers questions in monosyllables) Respiratory: chest expansion is symmetric, chest is bilaterally symmetric, lungs clear to auscultation Cardiovascular: regular rate-rhythm, S1 and S2, systolic murmur Gastrointestional: audible bowel sounds Extremities: no lower extremity edema bilateral Neurologic/Psychiatric: other (more alert today, cannot cooperate with a neuro exam) Skin: No rash on exposed areas, No ulcerations on exposed areas A/P: Assessment: 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 Lemos of interventional radiology at [facility] Chronic a-fib documented - had been on OAC with warfarin and was transitioning to Eliquis at time of stroke per records from [facility] Valvular heart disease - Echocardiogram on 02-15-[address] 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
--- NOTE | 2021-03-04 11:00 | Physical Therapy Daily Note ---
PT Daily Note-Current Subjective Patient in recliner pre tx, agrees to PT, has no pain at rest but severe knee pain with activity. Will be co-treating with OT due to poor patient mobility, strength, endurance, severe pain with activity, family training, coordinate UE and LE during activity, safety and reduce risk of falls. Appearance Patient in recliner post tx with nurse call, phone, tray, all needs met, chair alarm on. Family in room. Mental Status Patient Orientation: Person, Confused Transfers SCALE: Activities may be completed with or without assistive devices. 1-Gvbkxdswdf-nmjssay completes the activity by him/herself with no assistance from a helper. 5-Set-up or Clean-up Assistance-helper sets up or cleans up; patient completes activity. [place] assists only prior to or following the activity. 4-Supervision or Touching Assistance-helper provides verbal cues and/or touching/steadying and/or contact guard assistance as patient completes activity. Assistance may be provided throughout the activity or intermittently. 3-Partial/Moderate Assistance-helper does LESS THAN HALF the effort. [place] lifts, holds or supports trunk or limbs, but provides less than half the effort. 2-Substantial/Maximal Assistance-helper does MORE THAN HALF the effort. [place] lifts or holds trunk or limbs and provides more than half the effort. 6-Plstnuubo-oixqmd does ALL the effort. Patient does none of the effort to complete the activity. Or, the assistance of 2 or more helpers is required for the patient to complete the activity. If activity was not attempted, code reason: 7-Patient Refused. 9-Not Applicable-not attempted and the patient did not perform the activity before the current illness, exacerbation or injury. 10-Not Attempted due to Environmental Limitations-(lack of equipment, weather restraints, etc.). 88-Not Attempted due to Medical Conditions or Safety Concerns. Sit to Stand (QC): 3 Chair/Wxs-kr-Jowtp Xfer(QC): 3 Toilet Transfer (QC): 3 Patient initially has to use the restroom, patient transfers to commode, has a BM, and then transfers to and propels to therapy gym. Patient is dressed as she is on the commode and finishes with standing, patient needs min assist for sit to stand. Cues for hand placement and positioning. Weight Bearing Full Weight Bearing Full Weight Bearing Gait Training Distance: 20' Walk 10 feet (QC): 4 Gait Persons Needed: 1 Gait Assistive Device: FWW WC follow, slow, antalgic, flexed bilateral knees Wheelchair Training Does the Pt Use a Wheelchair?: Yes Wheel 50 ft with 2 turns (QC): 3 Wheel 150 ft (QC): 3 Treatments PT performed transfers, ambulation, WC mobility, safety and positioning during toileting and dressing, OT performed toileting and dressing and UE positioning and safety during activity. Assessment Current Status: Fair Progress improved general mobility PT Short Term Goals Short Term Goals Time Frame: Mar 04, 2021 Roll Left & Right: 6 Sit to lyin Lying to sitting on side of be: 4 Sit to stand: 4 Chair/ucn-ks-ysjqf transfer: 4 Walk 10 feet: 4 Walk 50 feet with two turns: 4 PT Usp Goals Usp Goals PT Cutter Operator Tile Goals Time Frame: Mar 18, 2021 Roll Left & Right (QC): 6 Sit to Lying (QC): 6 Lying-Sitting on Side/Bed(QC): 6 Sit to Stand (QC): 4 (SBA) Chair/Naf-bi-Tzgcm Xfer(QC): 4 (SBA) Toilet Transfer (QC): 4 (SBA) Car Transfer (QC): 4 (SBA) Does the Patient Walk: Yes Walk 10 feet (QC): 4 (SBA) Walk 50ft with 2 Turns (QC): 4 (SBA) Walk 150 ft (QC): 88 Walking 10ft on Uneven Surface: 88 1 Step (curb) (QC): 88 4 Steps (QC): 88 12 Steps (QC): 88 Picking up an Object (QC): 88 Wheel 50 feet with 2 turns (QC: 5 Wheel 150 feet: 5 PT Plan Problem List Problem List: Activity Tolerance, Functional Strength, Safety, Balance, Gait, Transfer, Bed Mobility, ROM Treatment/Plan Treatment Plan: Continue Plan of Care Treatment Plan: Bed Mobility, Education, Functional Activity Katherine, Functional Strength, Group Therapy, Gait, Safety, Therapeutic Exercise, Transfers Treatment Duration: Mar 18, 2021 Frequency: At least 5 of 7 days/Wk (IRF) Estimated Hrs Per Day: 1.5 hours per day Patient and/or Family Agrees t: Yes Safety Risks/Education Patient Education: Gait Training, Transfer Techniques, Correct Positioning, W/C Management, Safety Issues Teaching Recipient: Patient Teaching Methods: Demonstration, Discussion Response to Teaching: Reinforcement Needed Time/GCodes Time In: 1015 Time Out: 1100 Total Billed Treatment Time: 60 Total Billed Treatment 1 visit FA 45' co-treated for 45' JOSIE HAWKINS PT Mar 04, 2021 11:00
--- NOTE | 2021-03-04 11:04 | Occupational Ther Daily Note ---
OT Current Status-Daily Note Subjective Pt upright in recliner upon entry. Pt agrees to tx. Son present for family training this am. Pt expresses pain in R knee upon stance. OT/ PT co-treat through session to work towards thorough family training with PT addressing functional transfers, ambulation, balance, etc and OT addressing ADLs, self care, AE/ AD etc. Mental Status/Objective Patient Orientation: Person ADL-Treatment Therapy Code Descriptions/Definitions Functional [place] Measure: 0=Not Assessed/NA 4=Minimal Assistance 1=Total Assistance 5=Supervision or Setup 2=Maximal Assistance 6=Modified [place] 3=Moderate Assistance 7=Complete IndependenceSCALE: Activities may be completed with or without assistive devices. 5-Fpuarrfvam-opkctzs completes the activity by him/herself with no assistance from a helper. 5-Set-up or Clean-up Assistance-helper sets up or cleans up; patient completes activity. [place] assists only prior to or following the activity. 4-Supervision or Touching Assistance-helper provides verbal cues and/or touching/steadying and/or contact guard assistance as patient completes activity. Assistance may be provided throughout the activity or intermittently. 3-Partial/Moderate Assistance-helper does LESS THAN HALF the effort. [place] lifts, holds or supports trunk or limbs, but provides less than half the effort. 2-Substantial/Maximal Assistance-helper does MORE THAN HALF the effort. [place] lifts or holds trunk or limbs and provides more than half the effort. 7-Qkomomyww-lqadlg does ALL the effort. Patient does none of the effort to complete the activity. Or, the assistance of 2 or more helpers is required for the patient to complete the activity. If activity was not attempted, code reason: 7-Patient Refused. 9-Not Applicable-not attempted and the patient did not perform the activity before the current illness, exacerbation or injury. 10-Not Attempted due to Environmental Limitations-(lack of equipment, weather restraints, etc.). 88-Not Attempted due to Medical Conditions or Safety Concerns. Eating (QC): 6 Oral Hygiene (QC): 6 Shower/Bathe Self (QC): 7 Upper Body Dressing (QC): 5 Lower Body Dressing (QC): 2 (Pt threads BLE in sit/ on commode. Pt then stands with assist from PT and OT threads over hips. Son present to witness ability.) On/Off Footwear: 7 Toileting Hygiene (QC): 1 (TD : Pt addressing functional stance with CGA and OT completes bottom care in stance) Toilet Transfer (QC): 3 (min A sit to stand, CGA ambulation to chair.) Other Treatment Pt sit to stand from recliner with min A, no retropulsion, min cues for hand positioning. Pt transfers to commode CGA, completes urination/ light BM. Pt completes pant donning in sit with A in stance to pull up. Pt transfers to w/c, pt's son educated on increase in function since yesterday and less retropulsion. Pt able to correct hand positioning for sit to stand without cues intermittently. Pt pushes self to gym with mod A, cues for hand positioning. Pt ambulates from one end of gym to other with CGA and OT to follow with w/c. Pt rests, R knee painful, sit to stand and sits in w/c CGA. Pt able to push self back to room with min A, cues for hand positioning. Pt able to transfer to chair CGA. Pt's son/ OT discuss home s/u, would benefit from w/c, BSC, ramp. Pt's son expresses pt's abilities to use hand rail to master steps into home. Educated on pt's ability yesterday compared to today and increased need for ramp likely. Pt in chair end of session with all needs met, call light in reach, pt's family present. Education OT Patient Education: Correct positioning, Instructions to caregiver, Progress toward Goal/Update tx plan, Purpose of tx/functional activities, Safety issues, Transfer techniques, W/C management Teaching Recipient: Patient Teaching Methods: Demonstration, Discussion Response to Teaching: Verbalize Understanding, Return Demonstration, Reinforcement Needed OT Short Term Goals Short Term Goals Time Frame: Mar 04, 2021 Oral hygiene: 5 Toileting hygiene: 5 OT Fci Goals Curbing Stonecutter Goals Time Frame: Mar 18, 2021 Eating (QC): 6 Oral Hygiene (QC): 6 Toileting Hygiene (QC): 6 Shower/Bathe Self (QC): 4 Upper Body Dressing (QC): 5 Lower Body Dressing (QC): 4 On/Off Footwear (QC): 4 Additional Goals: 1-Demonstrate ADL Tasks, 2-Verbalize Understanding, 3-Imp roveStrength/Katherine 1=Demonstrate adherence to instructed precautions during ADL tasks. 2=Patient will verbalize/demonstrate understanding of assistive devices/modifications for ADL. 3=Patient will improve strength/tolerance for activity to enable patient to perform ADL's. OT Education/Plan Problem List/Assessment Assessment: Decreased Activ Tolerance, Decreased Safety Aware, Decreased UE Strength, Dependent Transfers, Impaired Bed Mobility, Impaired Cognition, I mpaired Funct Balance, Impaired I ADL's, Impaired Self-Care Skills Discharge Recommendations Plan/Recommendations: Continue POC Therapy Discharge Recommendati: 24 Hour Supervision, Post Acute OT Equpiment Recommendations-D/C: Bedside Commode, Other, See Comments Comment w/c, ramp Treatment Plan/Plan of Care Treatment,Training & Education: Yes Patient would benefit from OT for education, treatment and training to promote independence in ADL's, mobility, safety and/or upper extremity function for ADL's. Plan of Care: ADL Retraining, Functional Mobility, Group Exercise/Act as Ind, UE Funct Exercise/Act Treatment Duration: Mar 18, 2021 Frequency: At least 5 of 7 days/Wk (IRF) Estimated Hrs Per Day: 1.5 hours per day Agreement: Yes Rehab Potential: Fair Time/GCodes Start Time: 10:15 Stop Time: 11:00 Total Time Billed (hr/min): 45 Billed Treatment Time 1, ADL 2, EX (45) OT/ PT co-treat through session to work towards thorough family training with PT addressing functional transfers, ambulation, balance, etc and OT addressing ADLs, self care, AE/ AD etc. TERRENCE HARDY OTR Mar 04, 2021 11:04
--- NOTE | 2021-03-04 12:36 | Speech Therapy Daily Note ---
Speech Daily Progress Note Subjective Date Seen by Provider: Mar 04, 2021 Time Seen by Provider: 00:30 Patient was resting in her recliner, son present. Family training with PT and OT had just been completed. Objective Patient completed memory tasks with 80% given cues by her son or clinician. Assessment Assessment Current Status: Fair Progress Treatment Plan Continue Plan of Care Speech Short Term Goals Short Term Goals Short Term Goals 1) Patient will complete memory tasks related to her daily needs at 80% or greater with minimal cuing. 2) Patient will complete safety awareness tasks related to her daily needs at 80% or greater with minimal cuing. 3) Patient will complete problem solving tasks related to her daily needs at 80% or greater with minimal cuing. Speech [place] Grower Goals Fdc Goals Patient will improve cognitive-communication abilities so that she is able to complete daily tasks with decreased assist. Speech-Plan Patient/Family Goals Patient/Family Goals: Patient's discharge location is unknown at this time. She will remain in ARU for continued therapy in the mean time. Treatment Plan Speech Therapy Treatment Plan: Continue Plan of Care Treatment Duration: Mar 11, 2021 Frequency: 4 times per week (Patient will receive skilled ST 4-5x per week) Estimated Hrs Per Day: .5 hour per day Rehab Potential: Fair Barriers to Learning: Patient's recent CVA, critical illness recovery, cognitive deficits Pt/Family Agrees to Plan: Yes Safety Risks/Education Teaching Recipient: Patient, Family Teaching Methods: Demonstration, Discussion Response to Teaching: Verbalize Understanding, Return Demonstration Education Topics Provided: Continued safety and communication using the call light Time Speech Therapy Time In: 11:30 Speech Therapy Time Out: 12:00 Total Billed Time: 30 Billed Treatment Time PENELOPE Hinton [facility] [facility] Mar 04, 2021 12:36
--- NOTE | 2021-03-04 14:22 | Therapy Group Daily Note ---
Therapy Daily Group Note Patient Education Topic Home Safety, Fall Prevention Exercises Balance, Sit to/from Stand, Fine Motor Session Ratio (pt:therapist): 3:1 Goal of Session: Home Safety Strategies, Memory Strategies, Safety with Transfers Goal Met for this Session: Yes Pt Benefit of Group: Contributions to Others, F/U Use of Strategies @Home, Increased Functional Safety, Improved Cognition, Recognition of Peers, Socialization Other/Notes Patient in recliner and performed a transfer to with therapist assist. Patient was transported to the common area of rehab for group therapy. Each person introduced themselves, stated where they were from and what their favorite hobby was. Then patients performed home safety bingo, were educated on each topic, and also had to perform some word scramble problems. Patient socialized with others with some cues and assist. Patient was transported back to her room afterward and performed a stand pivot transfer back to her recliner. Patient in recliner post tx with nurse call, phone, tray, chair alarm on. Start Time: 13:00 Stop Time: 14:00 Total Billed Treatment Time: 60 Total Billed Treatment 1 visit GRP 60JOSIE FITZPATRICK PT Mar 04, 2021 14:22
[2021-03-04 20:00] VITALS: BP 133/60
[2021-03-04] MEDS: rOPINIRole 1 MG (REQUIP) TABLET PO SCH (20:48)
[2021-03-04] MEDS: MELATONIN 3 MG TABLET PO PRN (20:48)
[2021-03-04] MEDS: ALPRAZolam 0.25 MG (XANAX) TAB PO PRN (20:48)
[2021-03-04] MEDS: AMITRIPTYLINE 25 MG (ELAVIL) TAB PO SCH (20:48)
[2021-03-04] MEDS: LATANOPROST 0.005% (XALATAN) OPHTH SOLN 2.5 ML OU SCH (20:49)
[2021-03-05] MEDS: HYDROcodone/APAP 5 MG/325 MG (LORTAB) TAB PO PRN ×3 (04:30→21:00)
--- NOTE | 2021-03-05 06:37 | PM&R Progress Note ---
Subjective HPI/CC On Admission Date Seen by Provider: Mar 05, 2021 Time Seen by Provider: 12:00 Subjective/Events-last exam 03/05/2021: Increase conversation No major issues No falls Gaining strength 03/04/2021: Patient doing really well Son who came in really help the situation Now she is communicating a walking very well Asked the son to come in more often 03/03/2021: Patient about the same Has plateaued I spoke with medical secretary teacher for insurance and he declined skilled care even though she has no formal plan for discharge and she will need long-term care retirement Cognitive deficit noted making it slow recovery if at all 03/02/2021: Patient doing pretty well Sleeps most of the time again Via [facility] at discharge Bowels move this morning 03/01/2021: Patient about the same Sleeps a lot of the time No pain is reported Discharge planning 02/28/2021: Patient doing pretty well Sleeps most of the time Had a bowel movement yesterday No major issues or concerns per RN 02/27/2021: Patient doing about the same Complains of left knee pain without injury Patient very cognitive deficient Appears to be very chronically ill 02/26/2021: Mildly hypotensive so holding blood pressure medication for systolic less than 120 Slept pretty well Having some loose bowel movements so holding laxatives Monitoring closely Currently sleeping 02/25/2021: Patient doing pretty well today Oriented x1 Expressive aphasia makes it difficult to communicate Appreciate cardiology consultation Echocardiogram was performed with bubble test Fall risk prevention Check meds and labs Review of Systems General: Fatigue Neurological: Weakness, Incoordination, Confusion Objective Exam Vital Signs Vital Signs Date Time Temp Pulse Resp B/P (MAP) Pulse Ox O2 Delivery O2 Flow Rate FiO2 03/05/21 21:00 Room Air 03/05/21 20:00 37.3 59 18 125/58 (80) 91 Capillary Refill : General Appearance: No Apparent Distress, WD/WN, Chronically ill HEENT: PERRL/EOMI, Normal ENT Inspection, Pharynx Normal Neck: Full Range of Motion, Normal Inspection, Non Tender, Supple, Carotid Bruit Respiratory: Chest Non Tender, Lungs Clear, Normal Breath Sounds, No Accessory Muscle Use, No Respiratory Distress Cardiovascular: Regular Rate, Rhythm, No Edema, No Gallop, No JVD, Normal Peripheral Pulses, Systolic Murmur Gastrointestinal: Normal Bowel Sounds, No Organomegaly, No Pulsatile Mass, Non Tender, Soft Back: Normal Inspection, No CVA Tenderness, No Vertebral Tenderness Extremity: Normal Capillary Refill, Normal Inspection, Normal Range of Motion, Non Tender, No Calf Tenderness, No Pedal Edema Neurologic/Psychiatric: Alert, Oriented x3, No Motor/Sensory Deficits, Normal Mood/Affect, Abnormal Gait, Aphasia, Disoriented, Motor Weakness Skin: Normal Color, Warm/Dry Lymphatic: No Adenopathy Results/Procedures Lab Patient resulted labs reviewed. FIM Transfers Therapy Code Descriptions/Definitions Functional [place] Measure: 0=Not Assessed/NA 4=Minimal Assistance 1=Total Assistance 5=Supervision or Setup 2=Maximal Assistance 6=Modified [place] 3=Moderate Assistance 7=Complete IndependenceSCALE: Activities may be completed with or without assistive devices. 3-Yzgrwagrxp-ukwdamy completes the activity by him/herself with no assistance from a helper. 5-Set-up or Clean-up Assistance-helper sets up or cleans up; patient completes activity. [place] assists only prior to or following the activity. 4-Supervision or Touching Assistance-helper provides verbal cues and/or touching/steadying and/or contact guard assistance as patient completes activity. Assistance may be provided throughout the activity or intermittently. 3-Partial/Moderate Assistance-helper does LESS THAN HALF the effort. [place] lifts, holds or supports trunk or limbs, but provides less than half the effort. 2-Substantial/Maximal Assistance-helper does MORE THAN HALF the effort. [place] lifts or holds trunk or limbs and provides more than half the effort. 3-Bxawlctko-xjbvkj does ALL the effort. Patient does none of the effort to complete the activity. Or, the assistance of 2 or more helpers is required for the patient to complete the activity. If activity was not attempted, code reason: 7-Patient Refused. 9-Not Applicable-not attempted and the patient did not perform the activity before the current illness, exacerbation or injury. 10-Not Attempted due to Environmental Limitations-(lack of equipment, weather restraints, etc.). 88-Not Attempted due to Medical Conditions or Safety Concerns. Roll Left to Right (QC): 1 Sit to Lying (QC): 4 Sit to Stand (QC): 3 Chair/Trp-jo-Aapwb Xfer(QC): 3 Car Transfer (QC): 1 Gait Training Does the Patient Walk?: Yes Distance: 20' Walk 10 feet (QC): 4 Walk 50 ft with 2 Turns(QC): 88 Walk 150 ft (QC): 88 Walking 10ft/uneven surface-QC: 88 Gait Persons Needed: 1 Gait Assistive Device: FWW Wheelchair Training Does the Pt Use a Wheelchair?: Yes Distance: 150'x2 Wheel 50 ft with 2 turns (QC): 3 Wheel 150 ft (QC): 3 Type of Wheelchair: Manual Stair Training 1 Step (curb) (QC): 88 4 Steps (QC): 88 12 Steps (QC): 88 Balance Picking up an Object (QC): 88 ADL-Treatment Eating (QC): 6 Oral Hygiene (QC): 6 Shower/Bathe Self (QC): 7 Upper Body Dressing (QC): 5 Lower Body Dressing (QC): 2 (Pt threads BLE in sit/ on commode. Pt then stands with assist from PT and OT threads over hips. Son present to witness ability.) On/Off Footwear (QC): 7 Toileting Hygiene (QC): 1 (TD : Pt addressing functional stance with CGA and OT completes bottom care in stance) Toilet Transfer (QC): 3 (min A sit to stand, CGA ambulation to chair.) Assessment/Plan Assessment and Plan Assess & Plan/Chief Complaint Assessment: CVA Partial aphasia Receptive aphasia Hypertension Aortic stenosis Chronic atrial fibrillation Memory loss Debility History of Covid Plan: Cardiology consult Inpatient rehab protocol Aggressive therapy Fall risk 02/25/2021: Fall risk prevention Increase independence in ADLs Appreciate cardiology 02/26/2021: Monitor closely Fall risk Monitor confusion 02/27/2021: Knee pain management Monitor closely Fall risk 02/28/2021: Chronic debility Sleeps most of the day 03/01/2021: Monitor closely Sleeps most of the time 03/02/2021: Needs retirement at discharge Monitor closely 03/03/2021: Insurance denied retirement admit Monitor closely 03/04/2021: Dramatically improved with son in the room Monitor closely 03/05/2021: Dramatic improvement Continue therapy (1) CVA (cerebral vascular accident) (2) Right sided weakness Status: Acute (3) Aphasia Status: Acute (4) Debility Status: Acute (5) Delirium Status: Acute MAAME LOMBARDO DO Mar 05, 2021 06:37
[2021-03-05] MEDS: KCL 20 MEQ TAB (K-DUR) PO SCH (06:52)
[2021-03-05] MEDS: RT--FLUTICASONE/SALMETEROL 232-14 (AIRDUO RespiCLICK) IH SCH ×2 (07:28→19:48)
[2021-03-05 07:30] VITALS: BP 147/72
[2021-03-05] MEDS: APIXABAN 5 MG (ELIQUIS) TABLET PO SCH ×2 (09:22→21:00)
[2021-03-05] MEDS: SENNA W/DOCUSATE (SENOKOT S) TABLET PO SCH ×2 (09:22→20:43)
[2021-03-05] MEDS: FUROSEMIDE 40 MG (LASIX) TAB PO SCH (09:22)
[2021-03-05] MEDS: GABAPENTIN 300 MG (NEURONTIN) CAP PO SCH ×3 (09:22→20:59)
[2021-03-05] MEDS: ROSUVASTATIN 20 MG (CRESTOR) TABLET PO SCH (09:22)
[2021-03-05] MEDS: SPIRONOLACTONE 25 MG (ALDACTONE) TAB PO SCH (09:22)
[2021-03-05] MEDS: lisINopril 5 MG (PRINIVIL) TABLET PO SCH (09:23)
[2021-03-05] MEDS: NAPHA/PHEN (NAPHCON-A, OPCON-A) OP SOLN 15 ML BTL OS SCH ×4 (09:24→20:57)
[2021-03-05] MEDS: DICLOFENAC 1% GEL 100 GM (VOLTAREN) TUBE TOP PRN (09:24)
[2021-03-05] MEDS: DOCUSATE SODIUM 100 MG (COLACE) CAP PO SCH ×2 (09:24→20:43)
[2021-03-05] MEDS: polyethylene glycoL POWDER 17 GM (MIRALAX) PACK PO SCH ×2 (09:35→20:43)
--- NOTE | 2021-03-05 12:48 | Physical Therapy Daily Note ---
PT Daily Note-Current Subjective Pt sitting in recliner upon arrival. Pt is very drowsy. Pt agrees to EX but needs woken up several times during tx. Mental Status Patient Orientation: Person, Confused Transfers SCALE: Activities may be completed with or without assistive devices. 2-Fjyqsqqeiw-nwspuzf completes the activity by him/herself with no assistance from a helper. 5-Set-up or Clean-up Assistance-helper sets up or cleans up; patient completes activity. [place] assists only prior to or following the activity. 4-Supervision or Touching Assistance-helper provides verbal cues and/or touching/steadying and/or contact guard assistance as patient completes activity. Assistance may be provided throughout the activity or intermittently. 3-Partial/Moderate Assistance-helper does LESS THAN HALF the effort. [place] lifts, holds or supports trunk or limbs, but provides less than half the effort. 2-Substantial/Maximal Assistance-helper does MORE THAN HALF the effort. [place] lifts or holds trunk or limbs and provides more than half the effort. 6-Alkidiyld-wbunsw does ALL the effort. Patient does none of the effort to complete the activity. Or, the assistance of 2 or more helpers is required for the patient to complete the activity. If activity was not attempted, code reason: 7-Patient Refused. 9-Not Applicable-not attempted and the patient did not perform the activity before the current illness, exacerbation or injury. 10-Not Attempted due to Environmental Limitations-(lack of equipment, weather restraints, etc.). 88-Not Attempted due to Medical Conditions or Safety Concerns. Weight Bearing Full Weight Bearing Full Weight Bearing Exercises Supine Ex: Ankle pumps, Quad Set, Glut sets, Straight leg raise, Hip abd/add Supine Reps: 10 Treatments Pt completes Supine Ex. Pt resting in recliner at end of tx. All needs met, call light in hand. Assessment Current Status: Fair Progress LEAD APPLICATION ARCHITECT wakens pt up several times during tx as pt is very drowsy. Pt demonstrates difficulty following directions and demonstration of EX. PT Short Term Goals Short Term Goals Time Frame: Mar 04, 2021 Roll Left & Right: 6 Sit to lyin Lying to sitting on side of be: 4 Sit to stand: 4 Chair/mqr-vg-wqvnc transfer: 4 Walk 10 feet: 4 Walk 50 feet with two turns: 4 PT Supervisor Customer Complaint Service Goals Supervisor Customer Complaint Service Goals PT Fdc Goals Time Frame: Mar 18, 2021 Roll Left & Right (QC): 6 Sit to Lying (QC): 6 Lying-Sitting on Side/Bed(QC): 6 Sit to Stand (QC): 4 (SBA) Chair/Tdd-ag-Jojiv Xfer(QC): 4 (SBA) Toilet Transfer (QC): 4 (SBA) Car Transfer (QC): 4 (SBA) Does the Patient Walk: Yes Walk 10 feet (QC): 4 (SBA) Walk 50ft with 2 Turns (QC): 4 (SBA) Walk 150 ft (QC): 88 Walking 10ft on Uneven Surface: 88 1 Step (curb) (QC): 88 4 Steps (QC): 88 12 Steps (QC): 88 Picking up an Object (QC): 88 Wheel 50 feet with 2 turns (QC: 5 Wheel 150 feet: 5 PT Plan Problem List Problem List: Activity Tolerance, Functional Strength Treatment/Plan Treatment Plan: Continue Plan of Care Treatment Plan: Bed Mobility, Education, Functional Activity Katherine, Functional Strength, Group Therapy, Gait, Safety, Therapeutic Exercise, Transfers Treatment Duration: Mar 18, 2021 Frequency: At least 5 of 7 days/Wk (IRF) Estimated Hrs Per Day: 1.5 hours per day Patient and/or Family Agrees t: Yes Safety Risks/Education Patient Education: Correct Positioning, Safety Issues Teaching Recipient: Patient Teaching Methods: Demonstration, Discussion Response to Teaching: Unable to Return Demonstration, Reinforcement Needed Time/GCodes Time In: 1115 Time Out: 1130 Total Billed Treatment Time: 15 Total Billed Treatment 1, EX (15m) FITO FAUSTIN LEAD APPLICATION ARCHITECT Mar 05, 2021 12:48
[2021-03-05 20:00] VITALS: BP 125/58
[2021-03-05] MEDS: LATANOPROST 0.005% (XALATAN) OPHTH SOLN 2.5 ML OU SCH (20:59)
[2021-03-05] MEDS: rOPINIRole 1 MG (REQUIP) TABLET PO SCH (21:00)
[2021-03-05] MEDS: AMITRIPTYLINE 25 MG (ELAVIL) TAB PO SCH (21:00)
[2021-03-06] MEDS: HYDROcodone/APAP 5 MG/325 MG (LORTAB) TAB PO PRN ×3 (05:33→18:03)
[2021-03-06] MEDS: KCL 20 MEQ TAB (K-DUR) PO SCH (06:47)
[2021-03-06] MEDS: RT--FLUTICASONE/SALMETEROL 232-14 (AIRDUO RespiCLICK) IH SCH ×2 (07:02→19:05)
[2021-03-06 07:30] VITALS: BP 119/59
[2021-03-06] MEDS: ROSUVASTATIN 20 MG (CRESTOR) TABLET PO SCH (09:40)
[2021-03-06] MEDS: DOCUSATE SODIUM 100 MG (COLACE) CAP PO SCH ×2 (09:40→20:21)
[2021-03-06] MEDS: SPIRONOLACTONE 25 MG (ALDACTONE) TAB PO SCH (09:41)
[2021-03-06] MEDS: lisINopril 5 MG (PRINIVIL) TABLET PO SCH (09:41)
[2021-03-06] MEDS: FUROSEMIDE 40 MG (LASIX) TAB PO SCH (09:41)
[2021-03-06] MEDS: APIXABAN 5 MG (ELIQUIS) TABLET PO SCH ×2 (09:41→20:20)
[2021-03-06] MEDS: GABAPENTIN 300 MG (NEURONTIN) CAP PO SCH ×3 (09:42→20:20)
[2021-03-06] MEDS: NAPHA/PHEN (NAPHCON-A, OPCON-A) OP SOLN 15 ML BTL OS SCH ×4 (09:43→20:19)
--- NOTE | 2021-03-06 09:46 | PM&R Progress Note ---
Subjective HPI/CC On Admission Date Seen by Provider: Mar 06, 2021 Time Seen by Provider: 10:45 Subjective/Events-last exam 03/06/2021: Patient doing pretty well Bowels moved yesterday Slowly able to ambulate Confusion persist 03/05/2021: Increase conversation No major issues No falls Gaining strength 03/04/2021: Patient doing really well Son who came in really help the situation Now she is communicating a walking very well Asked the son to come in more often 03/03/2021: Patient about the same Has plateaued I spoke with medical affairs leader for insurance and he declined skilled care even though she has no formal plan for discharge and she will need long-term care [facility] Cognitive deficit noted making it slow recovery if at all 03/02/2021: Patient doing pretty well Sleeps most of the time again Via [facility] at discharge Bowels move this morning 03/01/2021: Patient about the same Sleeps a lot of the time No pain is reported Discharge planning 02/28/2021: Patient doing pretty well Sleeps most of the time Had a bowel movement yesterday No major issues or concerns per RN 02/27/2021: Patient doing about the same Complains of left knee pain without injury Patient very cognitive deficient Appears to be very chronically ill 02/26/2021: Mildly hypotensive so holding blood pressure medication for systolic less than 120 Slept pretty well Having some loose bowel movements so holding laxatives Monitoring closely Currently sleeping 02/25/2021: Patient doing pretty well today Oriented x1 Expressive aphasia makes it difficult to communicate Appreciate cardiology consultation Echocardiogram was performed with bubble test Fall risk prevention Check meds and labs Review of Systems General: Fatigue, Malaise Neurological: Weakness Objective Exam Vital Signs Vital Signs Date Time Temp Pulse Resp B/P (MAP) Pulse Ox O2 Delivery O2 Flow Rate FiO2 03/06/21 09:00 Room Air 03/06/21 07:30 37.0 66 16 119/59 (79) 91 Capillary Refill : General Appearance: No Apparent Distress, WD/WN, Chronically ill HEENT: PERRL/EOMI, Normal ENT Inspection, Pharynx Normal Neck: Full Range of Motion, Normal Inspection, Non Tender, Supple, Carotid Bruit Respiratory: Chest Non Tender, Lungs Clear, Normal Breath Sounds, No Accessory Muscle Use, No Respiratory Distress Cardiovascular: Regular Rate, Rhythm, No Edema, No Gallop, No JVD, Normal Peripheral Pulses, Systolic Murmur Gastrointestinal: Normal Bowel Sounds, No Organomegaly, No Pulsatile Mass, Non Tender, Soft Back: Normal Inspection, No CVA Tenderness, No Vertebral Tenderness Extremity: Normal Capillary Refill, Normal Inspection, Normal Range of Motion, Non Tender, No Calf Tenderness, No Pedal Edema Neurologic/Psychiatric: Alert, Oriented x3, No Motor/Sensory Deficits, Normal Mood/Affect, Abnormal Gait, Aphasia, Disoriented, Motor Weakness Skin: Normal Color, Warm/Dry Lymphatic: No Adenopathy Results/Procedures Lab Patient resulted labs reviewed. FIM Transfers Therapy Code Descriptions/Definitions Functional [place] Measure: 0=Not Assessed/NA 4=Minimal Assistance 1=Total Assistance 5=Supervision or Setup 2=Maximal Assistance 6=Modified [place] 3=Moderate Assistance 7=Complete IndependenceSCALE: Activities may be completed with or without assistive devices. 6-Rsctttasou-awhjebq completes the activity by him/herself with no assistance from a helper. 5-Set-up or Clean-up Assistance-helper sets up or cleans up; patient completes activity. [place] assists only prior to or following the activity. 4-Supervision or Touching Assistance-helper provides verbal cues and/or touching/steadying and/or contact guard assistance as patient completes activity. Assistance may be provided throughout the activity or intermittently. 3-Partial/Moderate Assistance-helper does LESS THAN HALF the effort. [place] lifts, holds or supports trunk or limbs, but provides less than half the effort. 2-Substantial/Maximal Assistance-helper does MORE THAN HALF the effort. [place] lifts or holds trunk or limbs and provides more than half the effort. 0-Mfodztdgs-gmxctm does ALL the effort. Patient does none of the effort to complete the activity. Or, the assistance of 2 or more helpers is required for the patient to complete the activity. If activity was not attempted, code reason: 7-Patient Refused. 9-Not Applicable-not attempted and the patient did not perform the activity be fore the current illness, exacerbation or injury. 10-Not Attempted due to Environmental Limitations-(lack of equipment, weather restraints, etc.). 88-Not Attempted due to Medical Conditions or Safety Concerns. Roll Left to Right (QC): 1 Sit to Lying (QC): 4 Sit to Stand (QC): 3 Chair/Sfc-cq-Xjekj Xfer(QC): 3 Car Transfer (QC): 1 Gait Training Does the Patient Walk?: Yes Distance: 20' Walk 10 feet (QC): 4 Walk 50 ft with 2 Turns(QC): 88 Walk 150 ft (QC): 88 Walking 10ft/uneven surface-QC: 88 Gait Persons Needed: 1 Gait Assistive Device: FWW Wheelchair Training Does the Pt Use a Wheelchair?: Yes Distance: 150'x2 Wheel 50 ft with 2 turns (QC): 3 Wheel 150 ft (QC): 3 Type of Wheelchair: Manual Stair Training 1 Step (curb) (QC): 88 4 Steps (QC): 88 12 Steps (QC): 88 Balance Picking up an Object (QC): 88 ADL-Treatment Eating (QC): 6 Oral Hygiene (QC): 6 Shower/Bathe Self (QC): 7 Upper Body Dressing (QC): 5 Lower Body Dressing (QC): 2 (Pt threads BLE in sit/ on commode. Pt then stands with assist from PT and OT threads over hips. Son present to witness ability.) On/Off Footwear (QC): 7 Toileting Hygiene (QC): 1 (TD : Pt addressing functional stance with CGA and OT completes bottom care in stance) Toilet Transfer (QC): 3 (min A sit to stand, CGA ambulation to chair.) Assessment/Plan Assessment and Plan Assess & Plan/Chief Complaint Assessment: CVA Partial aphasia Receptive aphasia Hypertension Aortic stenosis Chronic atrial fibrillation Memory loss Debility History of Covid Plan: Cardiology consult Inpatient rehab protocol Aggressive therapy Fall risk 02/25/2021: Fall risk prevention Increase independence in ADLs Appreciate cardiology 02/26/2021: Monitor closely Fall risk Monitor confusion 02/27/2021: Knee pain management Monitor closely Fall risk 02/28/2021: Chronic debility Sleeps most of the day 03/01/2021: Monitor closely Sleeps most of the time 03/02/2021: Needs [facility] at discharge Monitor closely 03/03/2021: Insurance denied [facility] admit Monitor closely 03/04/2021: Dramatically improved with son in the room Monitor closely 03/05/2021: Dramatic improvement Continue therapy 03/06/2021: Monitor closely Continue treatment (1) CVA (cerebral vascular accident) (2) Right sided weakness Status: Acute (3) Aphasia Status: Acute (4) Debility Status: Acute (5) Delirium Status: Acute MAAME LOMBARDO DO Mar 06, 2021 09:46
[2021-03-06] MEDS: polyethylene glycoL POWDER 17 GM (MIRALAX) PACK PO SCH ×2 (10:51→19:17)
[2021-03-06] MEDS: SENNA W/DOCUSATE (SENOKOT S) TABLET PO SCH ×2 (10:51→20:21)
[2021-03-06 19:43] VITALS: BP 118/70
[2021-03-06] MEDS: rOPINIRole 1 MG (REQUIP) TABLET PO SCH (20:20)
[2021-03-06] MEDS: AMITRIPTYLINE 25 MG (ELAVIL) TAB PO SCH (20:20)
[2021-03-06] MEDS: LATANOPROST 0.005% (XALATAN) OPHTH SOLN 2.5 ML OU SCH (20:20)
[2021-03-06] MEDS: ACETAMINOPHEN 325 MG TABLET PO PRN (20:25)
[2021-03-06 20:42] LABS: BASOPHILS % (AUTO) 0 % (0-10); EOSINOPHILS # (AUTO) 0.7 10^3/uL (0.0-0.3); EOSINOPHILS % (AUTO) 6 % (0-10); HEMATOCRIT 36 % (35-52); HEMOGLOBIN 11.4 g/dL (11.5-16.0); LYMPHOCYTES # (AUTO) 1.2 10^3/uL (1.0-4.0); LYMPHOCYTES % (AUTO) 9 % (12-44); MEAN CORPUSCULAR HEMOGLOBIN 29 pg (25-34); MEAN CORPUSCULAR HGB CONC 32 g/dL (32-36); MEAN CORPUSCULAR VOLUME 91 fL (80-99); MEAN PLATELET VOLUME 11.6 fL (9.0-12.2); MONOCYTES # (AUTO) 0.9 10^3/uL (0.0-1.0); MONOCYTES % (AUTO) 7 % (0-12); NEUTROPHILS % (AUTO) 78 % (42-75); PLATELET COUNT 243 10^3/uL (130-400); WHITE BLOOD COUNT 12.9 10^3/uL (4.3-11.0)
[2021-03-06 21:02] LABS: ALBUMIN 3.6 GM/DL (3.2-4.5); BILIRUBIN,TOTAL 1.6 MG/DL (0.1-1.0); CALCIUM 9.5 MG/DL (8.5-10.1); CREATININE SERUM 1.07 MG/DL (0.60-1.30); POTASSIUM 4.3 MMOL/L (3.6-5.0); TOTAL PROTEIN 6.9 GM/DL (6.4-8.2)
--- NOTE | 2021-03-06 21:56 | Diagnostic Imaging Report ---
INDICATION: Fever. COMPARISON STUDY: Chest from 02/15/2021. FINDINGS: Frontal view of the chest demonstrates stable cardiomegaly. Mild infiltrate is present in the right base with a small right pleural effusion. IMPRESSION: There is mild right basilar infiltrate and a small right pleural effusion. Cardiomegaly is stable. Dictated by: Dictated on workstation # [id number]
[2021-03-06] MEDS ORDERED: VANCOMYCIN INJECTION 1,000 MG in NS (IVPB) 250 ML IV ONE (22:00)
[2021-03-06 22:07] LABS: BILIRUBIN,URINE NEGATIVE (NEGATIVE); COLOR,URINE YELLOW; GLUCOSE, URINE (UA) NEGATIVE (NEGATIVE); KETONES,URINE NEGATIVE (NEGATIVE); LEUKOCYTE ESTERASE ,URINE NEGATIVE (NEGATIVE); NITRITE,URINE POSITIVE (NEGATIVE); PH,URINE 5.5 (5-9); PROTEIN,URINE NEGATIVE (NEGATIVE)
[2021-03-06 22:12] LABS: CLARITY,URINE SL CLOUDY
[2021-03-06 22:13] LABS: BACTERIA,URINE MODERATE /HPF; RBC,URINE 0-2 /HPF; WBC,URINE 0-2 /HPF
[2021-03-06] MEDS: MEROPENEM 500 MG in WATER (STERILE) FOR INJECTION 10 ML IV SCH (22:30)
[2021-03-07 05:49] LABS: BASOPHILS % (AUTO) 0 % (0-10); EOSINOPHILS # (AUTO) 1.3 10^3/uL (0.0-0.3); EOSINOPHILS % (AUTO) 13 % (0-10); HEMATOCRIT 31 % (35-52); HEMOGLOBIN 9.8 g/dL (11.5-16.0); LYMPHOCYTES # (AUTO) 1.7 10^3/uL (1.0-4.0); LYMPHOCYTES % (AUTO) 17 % (12-44); MEAN CORPUSCULAR HEMOGLOBIN 29 pg (25-34); MEAN CORPUSCULAR HGB CONC 31 g/dL (32-36); MEAN CORPUSCULAR VOLUME 92 fL (80-99); MEAN PLATELET VOLUME 11.3 fL (9.0-12.2); MONOCYTES # (AUTO) 1.1 10^3/uL (0.0-1.0); MONOCYTES % (AUTO) 10 % (0-12); NEUTROPHILS # (AUTO) 6.2 10^3/uL (1.8-7.8); NEUTROPHILS % (AUTO) 60 % (42-75); PLATELET COUNT 193 10^3/uL (130-400); WHITE BLOOD COUNT 10.4 10^3/uL (4.3-11.0)
[2021-03-07 06:13] LABS: ALBUMIN 3.1 GM/DL (3.2-4.5); CHLORIDE 104 MMOL/L (98-107); POTASSIUM 3.9 MMOL/L (3.6-5.0); SODIUM 138 MMOL/L (135-145)
[2021-03-07] MEDS ORDERED: VANCOMYCIN INJECTION 0.1 MG in NS (IVPB) 250 ML IV SCH (06:15)
[2021-03-07 06:16] LABS: GLUCOSE 92 MG/DL (70-105); TOTAL PROTEIN 5.9 GM/DL (6.4-8.2)
[2021-03-07 06:17] LABS: CARBON DIOXIDE 26 MMOL/L (21-32)
[2021-03-07 06:18] LABS: BILIRUBIN,TOTAL 1.6 MG/DL (0.1-1.0)
[2021-03-07 06:19] LABS: ALKALINE PHOSPHATASE 79 U/L (40-136)
[2021-03-07 06:20] LABS: CREATININE SERUM 0.85 MG/DL (0.60-1.30); GFR ESTIMATED > 60
[2021-03-07] MEDS: MEROPENEM 500 MG in WATER (STERILE) FOR INJECTION 10 ML IV SCH ×3 (06:20→21:04)
[2021-03-07] MEDS: KCL 20 MEQ TAB (K-DUR) PO SCH (06:20)
[2021-03-07 06:21] LABS: BUN/CREATININE RATIO 26
[2021-03-07 06:22] LABS: ALANINE AMINOTRANSFERASE 11 U/L (0-55)
[2021-03-07] MEDS: RT--FLUTICASONE/SALMETEROL 232-14 (AIRDUO RespiCLICK) IH SCH ×2 (06:30→20:42)
--- NOTE | 2021-03-07 06:38 | PM&R Progress Note ---
Subjective HPI/CC On Admission Date Seen by Provider: Mar 07, 2021 Time Seen by Provider: 10:45 Subjective/Events-last exam 03/07/2021: Pt doing pretty well but tearful with everything Lactinex will be given for loose stools due to antibiotics Pneumonia diagnosed without sepsis last night 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 and Vancomycin to cover for MRSA 03/06/2021: Patient doing pretty well Bowels moved yesterday Slowly able to ambulate Confusion persist 03/05/2021: Increase conversation No major issues No falls Gaining strength 03/04/2021: Patient doing really well Son who came in really help the situation Now she is communicating a walking very well Asked the son to come in more often 03/03/2021: Patient about the same Has plateaued I spoke with district medical examiner for insurance and he declined skilled care even though she has no formal plan for discharge and she will need long-term care long-term Cognitive deficit noted making it slow recovery if at all 03/02/2021: Patient doing pretty well Sleeps most of the time again [facility] at discharge Bowels move this morning 03/01/2021: Patient about the same Sleeps a lot of the time No pain is reported Discharge planning 02/28/2021: Patient doing pretty well Sleeps most of the time Had a bowel movement yesterday No major issues or concerns per RN 02/27/2021: Patient doing about the same Complains of left knee pain without injury Patient very cognitive deficient Appears to be very chronically ill 02/26/2021: Mildly hypotensive so holding blood pressure medication for systolic less than 120 Slept pretty well Having some loose bowel movements so holding laxatives Monitoring closely Currently sleeping 02/25/2021: Patient doing pretty well today Oriented x1 Expressive aphasia makes it difficult to communicate Appreciate cardiology consultation Echocardiogram was performed with bubble test Fall risk prevention Check meds and labs Review of Systems General: Fatigue Neurological: Weakness, Confusion Focused Exam Lactate Level 03/06/21 20:32: Lactic Acid Level 1.27 Objective Exam Vital Signs Vital Signs Date Time Temp Pulse Resp B/P (MAP) Pulse Ox O2 Delivery O2 Flow Rate FiO2 03/07/21 21:00 93 Room Air 03/07/21 20:00 37.8 62 18 125/58 (80) Capillary Refill : General Appearance: No Apparent Distress, WD/WN, Chronically ill HEENT: PERRL/EOMI, Normal ENT Inspection, Pharynx Normal Neck: Full Range of Motion, Normal Inspection, Non Tender, Supple, Carotid Bruit Respiratory: Chest Non Tender, Lungs Clear, Normal Breath Sounds, No Accessory Muscle Use, No Respiratory Distress Cardiovascular: Regular Rate, Rhythm, No Edema, No Gallop, No JVD, Normal Peripheral Pulses, Systolic Murmur Gastrointestinal: Normal Bowel Sounds, No Organomegaly, No Pulsatile Mass, Non Tender, Soft Back: Normal Inspection, No CVA Tenderness, No Vertebral Tenderness Extremity: Normal Capillary Refill, Normal Inspection, Normal Range of Motion, Non Tender, No Calf Tenderness, No Pedal Edema Neurologic/Psychiatric: Alert, Oriented x3, No Motor/Sensory Deficits, Normal Mood/Affect, Abnormal Gait, Aphasia, Disoriented, Motor Weakness Skin: Normal Color, Warm/Dry Lymphatic: No Adenopathy Results/Procedures Lab Patient resulted labs reviewed. FIM Transfers Therapy Code Descriptions/Definitions Functional [place] Measure: 0=Not Assessed/NA 4=Minimal Assistance 1=Total Assistance 5=Supervision or Setup 2=Maximal Assistance 6=Modified [place] 3=Moderate Assistance 7=Complete IndependenceSCALE: Activities may be completed with or without assistive devices. 0-Itdpatoeuj-vzpzzsj completes the activity by him/herself with no assistance from a helper. 5-Set-up or Clean-up Assistance-helper sets up or cleans up; patient completes activity. [place] assists only prior to or following the activity. 4-Supervision or Touching Assistance-helper provides verbal cues and/or touching/steadying and/or contact guard assistance as patient completes activity . Assistance may be provided throughout the activity or intermittently. 3-Partial/Moderate Assistance-helper does LESS THAN HALF the effort. [place] lifts, holds or supports trunk or limbs, but provides less than half the effort. 2-Substantial/Maximal Assistance-helper does MORE THAN HALF the effort. [place] lifts or holds trunk or limbs and provides more than half the effort. 8-Nxjmegswg-totzkb does ALL the effort. Patient does none of the effort to complete the activity. Or, the assistance of 2 or more helpers is required for the patient to complete the activity. If activity was not attempted, code reason: 7-Patient Refused. 9-Not Applicable-not attempted and the patient did not perform the activity before the current illness, exacerbation or injury. 10-Not Attempted due to Environmental Limitations-(lack of equipment, weather restraints, etc.). 88-Not Attempted due to Medical Conditions or Safety Concerns. Roll Left to Right (QC): 1 Sit to Lying (QC): 4 Sit to Stand (QC): 3 Chair/Mdw-tb-Zoryk Xfer(QC): 3 Car Transfer (QC): 1 Gait Training Does the Patient Walk?: Yes Distance: 20' Walk 10 feet (QC): 4 Walk 50 ft with 2 Turns(QC): 88 Walk 150 ft (QC): 88 Walking 10ft/uneven surface-QC: 88 Gait Persons Needed: 1 Gait Assistive Device: FWW Wheelchair Training Does the Pt Use a Wheelchair?: Yes Distance: 150'x2 Wheel 50 ft with 2 turns (QC): 3 Wheel 150 ft (QC): 3 Type of Wheelchair: Manual Stair Training 1 Step (curb) (QC): 88 4 Steps (QC): 88 12 Steps (QC): 88 Balance Picking up an Object (QC): 88 ADL-Treatment Eating (QC): 6 Oral Hygiene (QC): 6 Shower/Bathe Self (QC): 7 Upper Body Dressing (QC): 5 Lower Body Dressing (QC): 2 (Pt threads BLE in sit/ on commode. Pt then stands with assist from PT and OT threads over hips. Son present to witness ability.) On/Off Footwear (QC): 7 Toileting Hygiene (QC): 1 (TD : Pt addressing functional stance with CGA and OT completes bottom care in stance) Toilet Transfer (QC): 3 (min A sit to stand, CGA ambulation to chair.) Assessment/Plan Assessment and Plan Assess & Plan/Chief Complaint Assessment: CVA Partial aphasia Receptive aphasia Hypertension Aortic stenosis Chronic atrial fibrillation Memory loss Debility History of Covid Pneumonia hospital-acquired 03/06/2021 maintained on meropenem and vancomycin Plan: Cardiology consult Inpatient rehab protocol Aggressive therapy Fall risk 02/25/2021: Fall risk prevention Increase independence in ADLs Appreciate cardiology 02/26/2021: Monitor closely Fall risk Monitor confusion 02/27/2021: Knee pain management Monitor closely Fall risk 02/28/2021: Chronic debility Sleeps most of the day 03/01/2021: Monitor closely Sleeps most of the time 03/02/2021: Needs long-term at discharge Monitor closely 03/03/2021: Insurance denied long-term admit Monitor closely 03/04/2021: Dramatically improved with son in the room Monitor closely 03/05/2021: Dramatic improvement Continue therapy 03/06/2021: Monitor closely Continue treatment 03/07/2021: Pneumonia treatment Therapy (1) CVA (cerebral vascular accident) (2) Right sided weakness Status: Acute (3) Aphasia Status: Acute (4) Debility Status: Acute (5) Delirium Status: Acute MAAME LOMBARDO DO Mar 07, 2021 06:38
[2021-03-07 08:09] VITALS: BP 140/95
[2021-03-07] MEDS: SPIRONOLACTONE 25 MG (ALDACTONE) TAB PO SCH (08:10)
[2021-03-07] MEDS: lisINopril 5 MG (PRINIVIL) TABLET PO SCH (08:10)
[2021-03-07] MEDS: APIXABAN 5 MG (ELIQUIS) TABLET PO SCH ×2 (08:10→21:04)
[2021-03-07] MEDS: ROSUVASTATIN 20 MG (CRESTOR) TABLET PO SCH (08:10)
[2021-03-07] MEDS: GABAPENTIN 300 MG (NEURONTIN) CAP PO SCH ×3 (08:10→21:03)
[2021-03-07] MEDS: NAPHA/PHEN (NAPHCON-A, OPCON-A) OP SOLN 15 ML BTL OS SCH ×4 (08:11→21:05)
[2021-03-07] MEDS: FUROSEMIDE 40 MG (LASIX) TAB PO SCH (08:11)
[2021-03-07] MEDS: HYDROcodone/APAP 5 MG/325 MG (LORTAB) TAB PO PRN ×2 (08:11→18:38)
--- NOTE | 2021-03-07 08:52 | Progress Note - Cardiology ---
Cardiology SOAP Progress Note Objective: I&O/Vital Signs 03/08/21 03/08/21 03/08/21 07:52 08:00 09:19 Temp 36.3 Pulse 60 Resp 22 B/P (MAP) 128/70 (89) Pulse Ox 91 95 O2 Delivery Room Air Room Air Room Air 03/08/21 00:00 Intake Total 10 ml Balance 10 ml Weight (Pounds): 182 Weight (Ounces): 0.6 Weight (Calculated Kilograms): 77.916730 Constitutional: well-developed, well-nourished, other (appears more alert today and answers questions in monosyllables) Respiratory: chest expansion is symmetric, chest is bilaterally symmetric, lungs clear to auscultation Cardiovascular: regular rate-rhythm, S1 and S2, systolic murmur Gastrointestional: audible bowel sounds Extremities: no lower extremity edema bilateral Neurologic/Psychiatric: other (more alert today, cannot cooperate with a neuro exam) Skin: No rash on exposed areas, No ulcerations on exposed areas Results/Procedures: Labs Microbiology 03/06/21 Urine Culture - Preliminary, Resulted Gram Negative Nomi A/P: Assessment: UTI - management per medical services 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 Lemos of interventional rad iology at [facility] Chronic a-fib documented - had been on OAC with warfarin and was transitioning to Eliquis at time of stroke per records from [facility] Valvular heart disease - Echocardiogram on 02-15-[address] 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
[2021-03-07] MEDS: polyethylene glycoL POWDER 17 GM (MIRALAX) PACK PO SCH ×2 (09:00→21:04)
[2021-03-07] MEDS: DOCUSATE SODIUM 100 MG (COLACE) CAP PO SCH ×2 (09:00→21:04)
[2021-03-07] MEDS: SENNA W/DOCUSATE (SENOKOT S) TABLET PO SCH ×2 (09:00→21:04)
--- NOTE | 2021-03-07 09:14 | Speech Therapy Daily Note ---
Speech Daily Progress Note Subjective Date Seen by Provider: Mar 07, 2021 Time Seen by Provider: 00:30 Patient was resting in her recliner with her breakfast tray in front of her. She had drank her milk but only a small amount of her breakfast was consumed. She was crying and when asked what was wrong she stated she wanted to go to her mom and dad's house. Objective Patient answered simple questions related to self and surroundings and was able to answer and make requests at 70% with moderate cues and/or redirections. Assessment Assessment Current Status: Fair Progress Treatment Plan Continue Plan of Care Speech Short Term Goals Short Term Goals Short Term Goals 1) Patient will complete memory tasks related to her daily needs at 80% or greater with minimal cuing. 2) Patient will complete safety awareness tasks related to her daily needs at 80% or greater with minimal cuing. 3) Patient will complete problem solving tasks related to her daily needs at 80% or greater with minimal cuing. Speech Manager Quality Compliance Goals Nursing Home Goals Patient will improve cognitive-communication abilities so that she is able to complete daily tasks with decreased assist. Speech-Plan Patient/Family Goals Patient/Family Goals: Patient's discharge plans for location are unknown at this time. Treatment Plan Speech Therapy Treatment Plan: Continue Plan of Care Treatment Duration: Mar 11, 2021 Frequency: 4 times per week (Patient will receive skilled ST 4-5x per week) Estimated Hrs Per Day: .5 hour per day Rehab Potential: Fair Barriers to Learning: Patient's moderate cognitive deficits, age, debility Pt/Family Agrees to Plan: Yes Safety Risks/Education Teaching Recipient: Patient Teaching Methods: Demonstration, Discussion Response to Teaching: Verbalize Understanding, Return Demonstration, Reinforcement Needed Education Topics Provided: Continued safety, call light education Time Speech Therapy Time In: 09:00 Speech Therapy Time Out: 09:30 Total Billed Time: 30 Billed Treatment Time 1[address] Mar 07, 2021 09:14
--- NOTE | 2021-03-07 10:42 | Occupational Ther Daily Note ---
OT Current Status-Daily Note Subjective Pt alert, sitting in recliner. Pt states she has multiple people in her room and that her son Jhony is going to take her home. SOOD reoriented pt. Pt agrees to therapy. No c/o pain at this time. Co-treat with PT ([id number]), skills of 2 clinicians required for skilled instruction and modifications due to increased SOA, decreased activity tolerance and fall risk. Mental Status/Objective Patient Orientation: Person Attachments: IV ADL-Treatment Pt set up and requires verbal cues to focus on sponge bath. After being handed moist cloth and towel, pt able to bathe upper/lower body sitting on recliner. With lift chair, pt able to stand using FWW then cleanse monet area/buttocks with SBA. Pt able to don/doff upper body clothing by self after set up. Pt donned lower body clothing by self with SBA for safety while standing to hike over hips. Pt doffed socks by self, assist to doff VERO hose. Pt donned L sock by self, threaded R sock over toes then assist to head well puller heel. CGA to transfer to [facility], in standing pt cleansed self and hiked pants with CGA for safety. Pt then transferred to w/c. Transported to bathroom sink in w/c, completed washing hands, brushing hair and oral care with verbal cues to initiate then move on to next task. Began PT cotreat at this time [id number]. PT focusing on ambulation and transfers while OT focusing on B UE placement for transfers. Pt left in care of PT. Therapy Code Descriptions/Definitions Functional [place] Measure: 0=Not Assessed/NA 4=Minimal Assistance 1=Total Assistance 5=Supervision or Setup 2=Maximal Assistance 6=Modified [place] 3=Moderate Assistance 7=Complete IndependenceSCALE: Activities may be completed with or without assistive devices. 4-Uelrqcgzry-ltvyuvm completes the activity by him/herself with no assistance from a helper. 5-Set-up or Clean-up Assistance-helper sets up or cleans up; patient completes activity. [place] assists only prior to or following the activity. 4-Supervision or Touching Assistance-helper provides verbal cues and/or touching/steadying and/or contact guard assistance as patient completes activity. Assistance may be provided throughout the activity or intermittently. 3-Partial/Moderate Assistance-helper does LESS THAN HALF the effort. [place] lifts, holds or supports trunk or limbs, but provides less than half the effort. 2-Substantial/Maximal Assistance-helper does MORE THAN HALF the effort. [place] lifts or holds trunk or limbs and provides more than half the effort. 9-Bpcngihli-mvbszh does ALL the effort. Patient does none of the effort to complete the activity. Or, the assistance of 2 or more helpers is required for the patient to complete the activity. If activity was not attempted, code reason: 7-Patient Refused. 9-Not Applicable-not attempted and the patient did not perform the activity before the current illness, exacerbation or injury. 10-Not Attempted due to Environmental Limitations-(lack of equipment, weather restraints, etc.). 88-Not Attempted due to Medical Conditions or Safety Concerns. Oral Hygiene (QC): 4 Shower/Bathe Self (QC): 4 Upper Body Dressing (QC): 5 Lower Body Dressing (QC): 4 On/Off Footwear: 3 Toileting Hygiene (QC): 4 Toilet Transfer (QC): 4 OT Short Term Goals Short Term Goals Time Frame: Mar 04, 2021 Oral hygiene: 5 Toileting hygiene: 5 OT Retirement Goals Retirement Goals Time Frame: Mar 18, 2021 Eating (QC): 6 Oral Hygiene (QC): 6 Toileting Hygiene (QC): 6 Shower/Bathe Self (QC): 4 Upper Body Dressing (QC): 5 Lower Body Dressing (QC): 4 On/Off Footwear (QC): 4 Additional Goals: 1-Demonstrate ADL Tasks, 2-Verbalize Understanding, 3-ImproveStrength/Katherine 1=Demonstrate adherence to instructed precautions during ADL tasks. 2=Patient will verbalize/demonstrate understanding of assistive devices/modifications for ADL. 3=Patient will improve strength/tolerance for activity to enable patient to perform ADL's. OT Education/Plan Problem List/Assessment Assessment: Decreased Safety Aware, Impaired Cognition, Impaired Self-Care Skills, Visual-Perceptual Deficit Discharge Recommendations Plan/Recommendations: Continue POC Treatment Plan/Plan of Care Patient would benefit from OT for education, treatment and training to promote independence in ADL's, mobility, safety and/or upper extremity function for ADL's. Plan of Care: ADL Retraining, Functional Mobility, Group Exercise/Act as Ind, UE Funct Exercise/Act Treatment Duration: Mar 18, 2021 Frequency: At least 5 of 7 days/Wk (IRF) Estimated Hrs Per Day: 1.5 hours per day Agreement: Yes Rehab Potential: Fair Time/GCodes Start Time: 09:45 Stop Time: 10:45 Total Time Billed (hr/min): 60 Billed Treatment Time 1 visit-ADL 3 (45 min) FA 1 (15 min) co-treat with PT [id number], individual [id number] RUPINDER ANGULO Mar 07, 2021 10:42
[2021-03-07] MEDS: LACTOBACILLUS ACIDOPHILUS (PROBIOTIC) CAPSULE PO SCH ×3 (10:55→18:37)
--- NOTE | 2021-03-07 11:15 | Physical Therapy Daily Note ---
PT Daily Note-Current Subjective Patient in WC in room pre tx, agrees to PT, has severe bilateral knee pain with activity but none at rest. Will be co-treating with OT due to poor patient mobility, strength, endurance, severe pain with activity, coordinate UE and LE during activity, safety and reduce risk of falls. Appearance Patient in recliner post tx with nurse call, phone, tray, chair alarm on. Mental Status Patient Orientation: Person, Confused Transfers SCALE: Activities may be completed with or without assistive devices. 2-Wwkezlowwz-qfcsxlv completes the activity by him/herself with no assistance from a helper. 5-Set-up or Clean-up Assistance-helper sets up or cleans up; patient completes activity. [place] assists only prior to or following the activity. 4-Supervision or Touching Assistance-helper provides verbal cues and/or touching/steadying and/or contact guard assistance as patient completes activity. Assistance may be provided throughout the activity or intermittently. 3-Partial/Moderate Assistance-helper does LESS THAN HALF the effort. [place] lifts, holds or supports trunk or limbs, but provides less than half the effort. 2-Substantial/Maximal Assistance-helper does MORE THAN HALF the effort. [place] lifts or holds trunk or limbs and provides more than half the effort. 2-Jmwcrttmo-igdpeg does ALL the effort. Patient does none of the effort to complete the activity. Or, the assistance of 2 or more helpers is required for the patient to complete the activity. If activity was not attempted, code reason: 7-Patient Refused. 9-Not Applicable-not attempted and the patient did not perform the activity before the current illness, exacerbation or injury. 10-Not Attempted due to Environmental Limitations-(lack of equipment, weather restraints, etc.). 88-Not Attempted due to Medical Conditions or Safety Concerns. Roll Left & Right (QC): 6 Sit to Lying (QC): 5 Lying to Sitting/Side of Bed(Q: 3 Sit to Stand (QC): 3 Chair/Zgw-ud-Ysqae Xfer(QC): 3 Min assist for sit to stand, somewhat retropulsive upon standing but improving, lots of cues for positioning and hand placement during stand to sit. Weight Bearing Full Weight Bearing Full Weight Bearing Gait Training Distance: 20'x2 Walk 10 feet (QC): 4 Gait Assistive Device: FWW very slow, antalgic, flexed bilateral knees Wheelchair Training Does the Pt Use a Wheelchair?: Yes Wheel 50 ft with 2 turns (QC): 3 Type of Wheelchair: Manual 120', min assist, cues for hand placement Exercises Supine Ex: Ankle pumps, Heel Slides, Short Arc Quads, Straight leg raise Supine Reps: 20 Treatments PT performed bed mobility and transfers, ambulation, LE exercise, WC mobility, OT performed UE positioning and safety during ambulation Assessment Current Status: Fair Progress seems to have slightly improved knee pain PT Short Term Goals Short Term Goals Time Frame: Mar 04, 2021 Roll Left & Right: 6 Sit to lyin Lying to sitting on side of be: 4 Sit to stand: 4 Chair/kie-uu-bapxs transfer: 4 Walk 10 feet: 4 Walk 50 feet with two turns: 4 PT Care Home Goals Continuous [place] Pick[place] Helper Goals PT Care Home Goals Time Frame: Mar 18, 2021 Roll Left & Right (QC): 6 Sit to Lying (QC): 6 Lying-Sitting on Side/Bed(QC): 6 Sit to Stand (QC): 4 (SBA) Chair/Fue-ii-Hvnhk Xfer(QC): 4 (SBA) Toilet Transfer (QC): 4 (SBA) Car Transfer (QC): 4 (SBA) Does the Patient Walk: Yes Walk 10 feet (QC): 4 (SBA) Walk 50ft with 2 Turns (QC): 4 (SBA) Walk 150 ft (QC): 88 Walking 10ft on Uneven Surface: 88 1 Step (curb) (QC): 88 4 Steps (QC): 88 12 Steps (QC): 88 Picking up an Object (QC): 88 Wheel 50 feet with 2 turns (QC: 5 Wheel 150 feet: 5 PT Plan Problem List Problem List: Activity Tolerance, Functional Strength, Safety, Balance, Gait, Transfer, Bed Mobility, ROM Treatment/Plan Treatment Plan: Continue Plan of Care Treatment Plan: Bed Mobility, Education, Functional Activity Katherine, Functional Strength, Group Therapy, Gait, Safety, Therapeutic Exercise, Transfers Treatment Duration: Mar 18, 2021 Frequency: At least 5 of 7 days/Wk (IRF) Estimated Hrs Per Day: 1.5 hours per day Patient and/or Family Agrees t: Yes Safety Risks/Education Patient Education: Gait Training, Transfer Techniques, Correct Positioning, W/C Management, Safety Issues Teaching Recipient: Patient Teaching Methods: Demonstration, Discussion Response to Teaching: Reinforcement Needed Time/GCodes Time In: 1030 Time Out: 1115 Total Billed Treatment Time: 45 Total Billed Treatment 1 visit EX 15' GT 15' FA 15' co-treated with OT from [id number] JOSIE HAWKINS PT Mar 07, 2021 11:15
--- NOTE | 2021-03-07 14:38 | Therapy Group Daily Note ---
Therapy Daily Group Note Patient Education Topic Home Safety, Exercises Exercises LE Seated Exercise, UE Exercise Session Ratio (pt:therapist): 4:1 Goal of Session: Home Safety Strategies, UE/LE Strengthing Goal Met for this Session: Yes Pt Benefit of Group: Contributions to Others, F/U Use of Strategies @Home, Increased Functional Safety, Increased Functional Strength, Improved Cognition, Recognition of Peers, Socialization Other/Notes Patient transferred to from [facility] and was transported to the therapy gym and participated in group therapy with other patient's. Patient's had to introduce themselves and big foam dice to answer the selected question. Patient's then participated in a home safety education tool played like [employer]. During this patient's also participated in UE and LE exercises. Afterward, patient was transported back to her room and stand pivot back to [facility], chair alarm on, has nurse call, phone, tray, all needs met. Start Time: 13:00 Stop Time: 14:00 Total Billed Treatment Time: 60 Total Billed Treatment 1 visit GRP 60JOSIE FITZPATRICK PT Mar 07, 2021 14:38
[2021-03-07] MEDS: VANCOMYCIN 1 GM/NS 250 ML IVPB IV SCH ×2 (14:39)
[2021-03-07 20:00] VITALS: BP 125/58
[2021-03-07] MEDS: rOPINIRole 1 MG (REQUIP) TABLET PO SCH (21:03)
[2021-03-07] MEDS: AMITRIPTYLINE 25 MG (ELAVIL) TAB PO SCH (21:04)
[2021-03-07] MEDS: LATANOPROST 0.005% (XALATAN) OPHTH SOLN 2.5 ML OU SCH (21:05)
[2021-03-08] MEDS: HYDROcodone/APAP 5 MG/325 MG (LORTAB) TAB PO PRN ×3 (01:15→21:02)
[2021-03-08] MEDS: MEROPENEM 500 MG in WATER (STERILE) FOR INJECTION 10 ML IV SCH ×3 (05:55→21:03)
[2021-03-08] MEDS: KCL 20 MEQ TAB (K-DUR) PO SCH (05:55)
--- NOTE | 2021-03-08 06:41 | PM&R Progress Note ---
Subjective HPI/CC On Admission Date Seen by Provider: Mar 08, 2021 Time Seen by Provider: 10:00 Subjective/Events-last exam 03/08/2021: Pt doing really well Increased confusion but she is otherwise back at her baseline in my opinion Urine culture is pending, it is gram negative Meropenem and Vancomycin She is messing with her IV, she may end up pulling it out 03/07/2021: Pt doing pretty well but tearful with everything Lactinex will be given for loose stools due to antibiotics Pneumonia diagnosed without sepsis last night 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 and Vancomycin to cover for MRSA 03/06/2021: Patient doing pretty well Bowels moved yesterday Slowly able to ambulate Confusion persist 03/05/2021: Increase conversation No major issues No falls Gaining strength 03/04/2021: Patient doing really well Son who came in really help the situation Now she is communicating a walking very well Asked the son to come in more often 03/03/2021: Patient about the same Has plateaued I spoke with medical practice manager for insurance and he declined skilled care even though she has no formal plan for discharge and she will need long-term care snf Cognitive deficit noted making it slow recovery if at all 03/02/2021: Patient doing pretty well Sleeps most of the time again [facility] at discharge Bowels move this morning 03/01/2021: Patient about the same Sleeps a lot of the time No pain is reported Discharge planning 02/28/2021: Patient doing pretty well Sleeps most of the time Had a bowel movement yesterday No major issues or concerns per RN 02/27/2021: Patient doing about the same Complains of left knee pain without injury Patient very cognitive deficient Appears to be very chronically ill 02/26/2021: Mildly hypotensive so holding blood pressure medication for systolic less than 120 Slept pretty well Having some loose bowel movements so holding laxatives Monitoring closely Currently sleeping 02/25/2021: Patient doing pretty well today Oriented x1 Expressive aphasia makes it difficult to communicate Appreciate cardiology consultation Echocardiogram was performed with bubble test Fall risk prevention Check meds and labs Review of Systems General: Fatigue Musculoskeletal: arm pain Neurological: Weakness Focused Exam Lactate Level 03/06/21 20:32: Lactic Acid Level 1.27 Objective Exam Vital Signs Vital Signs Date Time Temp Pulse Resp B/P (MAP) Pulse Ox O2 Delivery O2 Flow Rate FiO2 03/08/21 21:16 Room Air 03/08/21 20:00 36.6 82 18 149/80 (103) 94 Capillary Refill : General Appearance: No Apparent Distress, WD/WN, Chronically ill HEENT: PERRL/EOMI, Normal ENT Inspection, Pharynx Normal Neck: Full Range of Motion, Normal Inspection, Non Tender, Supple, Carotid Bruit Respiratory: Chest Non Tender, Lungs Clear, Normal Breath Sounds, No Accessory Muscle Use, No Respiratory Distress Cardiovascular: Regular Rate, Rhythm, No Edema, No Gallop, No JVD, Normal Peripheral Pulses, Systolic Murmur Gastrointestinal: Normal Bowel Sounds, No Organomegaly, No Pulsatile Mass, Non Tender, Soft Back: Normal Inspection, No CVA Tenderness, No Vertebral Tenderness Extremity: Normal Capillary Refill, Normal Inspection, Normal Range of Motion, Non Tender, No Calf Tenderness, No Pedal Edema Neurologic/Psychiatric: Alert, Oriented x3, No Motor/Sensory Deficits, Normal Mood/Affect, Abnormal Gait, Aphasia, Disoriented, Motor Weakness Skin: Normal Color, Warm/Dry Lymphatic: No Adenopathy Results/Procedures Lab Patient resulted labs reviewed. FIM Transfers Therapy Code Descriptions/Definitions Functional [place] Measure: 0=Not Assessed/NA 4=Minimal Assistance 1=Total Assistance 5=Supervision or Setup 2=Maximal Assistance 6=Modified [place] 3=Moderate Assistance 7=Complete IndependenceSCALE: Activities may be completed with or without assistive devices. 8-Opcrslmzsd-imijbdw completes the activity by him/herself with no assistance from a helper. 5-Set-up or Clean-up Assistance-helper sets up or cleans up; patient completes activity. [place] assists only prior to or following the activity. 4-Supervision or Touching Assistance-helper provides verbal cues and/or touching/steadying and/or contact guard assistance as patient completes activity. Assistance may be provided throughout the activity or intermittently. 3-Partial/Moderate Assistance-helper does LESS THAN HALF the effort. [place] lifts, holds or supports trunk or limbs, but provides less than half the effort. 2-Substantial/Maximal Assistance-helper does MORE THAN HALF the effort. [place] lifts or holds trunk or limbs and provides more than half the effort. 3-Sfrdowuqk-fksdio does ALL the effort. Patient does none of the effort to complete the activity. Or, the assistance of 2 or more helpers is required for the patient to complete the activity. If activity was not attempted, code reason: 7-Patient Refused. 9-Not Applicable-not attempted and the patient did not perform the activity before the current illness, exacerbation or injury. 10-Not Attempted due to Environmental Limitations-(lack of equipment, weather restraints, etc.). 88-Not Attempted due to Medical Conditions or Safety Concerns. Roll Left to Right (QC): 6 Sit to Lying (QC): 5 Sit to Stand (QC): 3 Chair/Rdl-bb-Wcqhr Xfer(QC): 3 Car Transfer (QC): 1 Gait Training Does the Patient Walk?: Yes Distance: 20'x2 Walk 10 feet (QC): 4 Walk 50 ft with 2 Turns(QC): 88 Walk 150 ft (QC): 88 Walking 10ft/uneven surface-QC: 88 Gait Persons Needed: 1 Gait Assistive Device: FWW Wheelchair Training Does the Pt Use a Wheelchair?: Yes Distance: 150'x2 Wheel 50 ft with 2 turns (QC): 3 Wheel 150 ft (QC): 3 Type of Wheelchair: Manual Stair Training 1 Step (curb) (QC): 88 4 Steps (QC): 88 12 Steps (QC): 88 Balance Picking up an Object (QC): 88 ADL-Treatment Eating (QC): 6 Oral Hygiene (QC): 4 Shower/Bathe Self (QC): 4 Upper Body Dressing (QC): 5 Lower Body Dressing (QC): 4 On/Off Footwear (QC): 3 Toileting Hygiene (QC): 4 Toilet Transfer (QC): 4 Assessment/Plan Assessment and Plan Assess & Plan/Chief Complaint Assessment: CVA Partial aphasia Receptive aphasia Hypertension Aortic stenosis Chronic atrial fibrillation Memory loss Debility History of Covid Pneumonia hospital-acquired 03/06/2021 maintained on meropenem and vancomycin Plan: Cardiology consult Inpatient rehab protocol Aggressive therapy Fall risk 02/25/2021: Fall risk prevention Increase independence in ADLs Appreciate cardiology 02/26/2021: Monitor closely Fall risk Monitor confusion 02/27/2021: Knee pain management Monitor closely Fall risk 02/28/2021: Chronic debility Sleeps most of the day 03/01/2021: Monitor closely Sleeps most of the time 03/02/2021: Needs snf at discharge Monitor closely 03/03/2021: Insurance denied snf admit Monitor closely 03/04/2021: Dramatically improved with son in the room Monitor closely 03/05/2021: Dramatic improvement Continue therapy 03/06/2021: Monitor closely Continue treatment 03/07/2021: Pneumonia treatment Therapy 03/08/2021: Supportive care Pneumonia treatment (1) CVA (cerebral vascular accident) (2) Right sided weakness Status: Acute (3) Aphasia Status: Acute (4) Debility Status: Acute (5) Delirium Status: Acute MAAME LOMBARDO DO Mar 08, 2021 06:40
[2021-03-08] MEDS: RT--FLUTICASONE/SALMETEROL 232-14 (AIRDUO RespiCLICK) IH SCH (07:52)
[2021-03-08 08:00] VITALS: BP 128/70
[2021-03-08] MEDS: SPIRONOLACTONE 25 MG (ALDACTONE) TAB PO SCH (08:18)
[2021-03-08] MEDS: GABAPENTIN 300 MG (NEURONTIN) CAP PO SCH ×3 (08:18→21:01)
[2021-03-08] MEDS: APIXABAN 5 MG (ELIQUIS) TABLET PO SCH ×2 (08:18→21:01)
[2021-03-08] MEDS: ROSUVASTATIN 20 MG (CRESTOR) TABLET PO SCH (08:19)
[2021-03-08] MEDS: LACTOBACILLUS ACIDOPHILUS (PROBIOTIC) CAPSULE PO SCH ×3 (08:19→18:30)
[2021-03-08] MEDS: NAPHA/PHEN (NAPHCON-A, OPCON-A) OP SOLN 15 ML BTL OS SCH ×4 (08:19→21:02)
[2021-03-08] MEDS: lisINopril 5 MG (PRINIVIL) TABLET PO SCH (08:19)
[2021-03-08] MEDS: FUROSEMIDE 40 MG (LASIX) TAB PO SCH (08:19)
[2021-03-08] MEDS: DOCUSATE SODIUM 100 MG (COLACE) CAP PO SCH ×2 (09:13→19:30)
[2021-03-08] MEDS: SENNA W/DOCUSATE (SENOKOT S) TABLET PO SCH ×2 (09:14→19:30)
[2021-03-08] MEDS: polyethylene glycoL POWDER 17 GM (MIRALAX) PACK PO SCH ×2 (09:14→19:30)
--- NOTE | 2021-03-08 10:01 | Speech Therapy Daily Note ---
Speech Daily Progress Note Subjective Date Seen by Provider: Mar 08, 2021 Time Seen by Provider: 00:30 Patient was resting in her recliner with her IV hooked up. She was difficult to keep engaged today due to being extremely sleepy. Objective Patient answered simple questions related to her self and immediate environment with 60% given mod v/c's. Assessment Assessment Current Status: Poor Progress Treatment Plan Continue Plan of Care Speech Short Term Goals Short Term Goals Short Term Goals 1) Patient will complete memory tasks related to her daily needs at 80% or greater with minimal cuing. 2) Patient will complete safety awareness tasks related to her daily needs at 80% or greater with minimal cuing. 3) Patient will complete problem solving tasks related to her daily needs at 80% or greater with minimal cuing. Speech Detention Goals Instructional Coach Goals Patient will improve cognitive-communication abilities so that she is able to complete daily tasks with decreased assist. Speech-Plan Patient/Family Goals Patient/Family Goals: Patient's discharge plans continue to be unknown at this time. Treatment Plan Speech Therapy Treatment Plan: Continue Plan of Care Treatment Duration: Mar 11, 2021 Frequency: 4 times per week (Patient will receive skilled ST 4-5x per week) Estimated Hrs Per Day: .5 hour per day Rehab Potential: Fair Barriers to Learning: Patient's declining function, age Pt/Family Agrees to Plan: Yes Safety Risks/Education Teaching Recipient: Patient Teaching Methods: Discussion Response to Teaching: Verbalize Understanding, Reinforcement Needed Education Topics Provided: Continued safety and communication Time Speech Therapy Time In: 09:30 Speech Therapy Time Out: 10:00 Total Billed Time: 30 Billed Treatment Time 1, ONELIA Gibson Mar 08, 2021 10:01
--- NOTE | 2021-03-08 11:53 | Physical Therapy Daily Note ---
PT Daily Note-Current Subjective Patient in recliner pre tx, agrees to PT, has no complaints of pain but has severe bilateral knee pain with activity. Will be co-treating with OT due to poor patient mobility, strength, endurance, severe pain with activity, coordinate UE and LE with activity, safety and reduce risk of falls. Appearance Patient in recliner post tx with nurse call, phone, tray, chair alarm on. Mental Status Patient Orientation: Person, Confused Transfers SCALE: Activities may be completed with or without assistive devices. 8-Yfpqoafftd-wxrltid completes the activity by him/herself with no assistance from a helper. 5-Set-up or Clean-up Assistance-helper sets up or cleans up; patient completes activity. [place] assists only prior to or following the activity. 4-Supervision or Touching Assistance-helper provides verbal cues and/or touching/steadying and/or contact guard assistance as patient completes activity. Assistance may be provided throughout the activity or intermittently. 3-Partial/Moderate Assistance-helper does LESS THAN HALF the effort. [place] lifts, holds or supports trunk or limbs, but provides less than half the effort. 2-Substantial/Maximal Assistance-helper does MORE THAN HALF the effort. [place] lifts or holds trunk or limbs and provides more than half the effort. 2-Jtgfaakan-kdmftm does ALL the effort. Patient does none of the effort to complete the activity. Or, the assistance of 2 or more helpers is required for the patient to complete the activity. If activity was not attempted, code reason: 7-Patient Refused. 9-Not Applicable-not attempted and the patient did not perform the activity before the current illness, exacerbation or injury. 10-Not Attempted due to Environmental Limitations-(lack of equipment, weather restraints, etc.). 88-Not Attempted due to Medical Conditions or Safety Concerns. Sit to Stand (QC): 3 Chair/Smt-ux-Eczrg Xfer(QC): 3 Patient needs cues for positioning and hand placement with every transfer or sit <-> stand. Weight Bearing Full Weight Bearing Full Weight Bearing Gait Training Distance: 20'x2 Gait Assistive Device: FWW very slow ambulation, takes at least 5 min to ambulate 20', flexed bilateral knees, antalgic, WC follow Wheelchair Training Does the Pt Use a Wheelchair?: Yes Wheel 50 ft with 2 turns (QC): 3 Wheel 150 ft (QC): 3 Type of Wheelchair: Manual 120', 300', patient help propel using the wheels somewhat but needs constant cues to stay on task, without help she only goes a couple of inches at a time with each push Exercises sitting balance and endurance activity hitting balloon for 2 min x2, and kicking ball for 2 min Treatments PT performed transfers, ambulation, WC mobility, balance and safety during balloon and ball activity, OT worked on UE positioning and safety during activi ty, balloon and ball activity Assessment Current Status: Poor Progress no change in mobility, more confused PT Short Term Goals Short Term Goals Time Frame: Mar 04, 2021 Roll Left & Right: 6 Sit to lyin Lying to sitting on side of be: 4 Sit to stand: 4 Chair/naw-ow-rkyac transfer: 4 Walk 10 feet: 4 Walk 50 feet with two turns: 4 PT Shelter Goals Shelter Goals PT Shelter Goals Time Frame: Mar 18, 2021 Roll Left & Right (QC): 6 Sit to Lying (QC): 6 Lying-Sitting on Side/Bed(QC): 6 Sit to Stand (QC): 4 (SBA) Chair/Twp-ij-Aying Xfer(QC): 4 (SBA) Toilet Transfer (QC): 4 (SBA) Car Transfer (QC): 4 (SBA) Does the Patient Walk: Yes Walk 10 feet (QC): 4 (SBA) Walk 50ft with 2 Turns (QC): 4 (SBA) Walk 150 ft (QC): 88 Walking 10ft on Uneven Surface: 88 1 Step (curb) (QC): 88 4 Steps (QC): 88 12 Steps (QC): 88 Picking up an Object (QC): 88 Wheel 50 feet with 2 turns (QC: 5 Wheel 150 feet: 5 PT Plan Problem List Problem List: Activity Tolerance, Functional Strength, Safety, Balance, Gait, Transfer, Bed Mobility, ROM Treatment/Plan Treatment Plan: Continue Plan of Care Treatment Plan: Bed Mobility, Education, Functional Activity Katherine, Functional Strength, Group Therapy, Gait, Safety, Therapeutic Exercise, Transfers Treatment Duration: Mar 18, 2021 Frequency: At least 5 of 7 days/Wk (IRF) Estimated Hrs Per Day: 1.5 hours per day Patient and/or Family Agrees t: Yes Safety Risks/Education Patient Education: Gait Training, Transfer Techniques, Correct Positioning, W/C Management, Safety Issues Teaching Recipient: Patient Teaching Methods: Demonstration, Discussion Response to Teaching: Reinforcement Needed Time/GCodes Time In: 1100 Time Out: 1200 Total Billed Treatment Time: 60 Total Billed Treatment 1 visit EX 20' FA 40' JOSIE HAWKINS PT Mar 08, 2021 11:53
--- NOTE | 2021-03-08 11:54 | Occupational Ther Daily Note ---
OT Current Status-Daily Note Subjective Pt alert, sitting in recliner. Pt alert and oriented x1. Pt agrees to therapy. Only c/o pain with B knees with ambulation and transfers. Mental Status/Objective Patient Orientation: Person, Confused Attachments: IV ADL-Treatment Therapy Code Descriptions/Definitions Functional [place] Measure: 0=Not Assessed/NA 4=Minimal Assistance 1=Total Assistance 5=Supervision or Setup 2=Maximal Assistance 6=Modified [place] 3=Moderate Assistance 7=Complete IndependenceSCALE: Activities may be completed with or without assistive devices. 5-Ywjptcjoam-atnaqnj completes the activity by him/herself with no assistance from a helper. 5-Set-up or Clean-up Assistance-helper sets up or cleans up; patient completes activity. [place] assists only prior to or following the activity. 4-Supervision or Touching Assistance-helper provides verbal cues and/or touching/steadying and/or contact guard assistance as patient completes activity. Assistance may be provided throughout the activity or intermittently. 3-Partial/Moderate Assistance-helper does LESS THAN HALF the effort. [place] lifts, holds or supports trunk or limbs, but provides less than half the effort. 2-Substantial/Maximal Assistance-helper does MORE THAN HALF the effort. [place] lifts or holds trunk or limbs and provides more than half the effort. 5-Uuyuameen-czyvkw does ALL the effort. Patient does none of the effort to complete the activity. Or, the assistance of 2 or more helpers is required for the patient to complete the activity. If activity was not attempted, code reason: 7-Patient Refused. 9-Not Applicable-not attempted and the patient did not perform the activity before the current illness, exacerbation or injury. 10-Not Attempted due to Environmental Limitations-(lack of equipment, weather restraints, etc.). 88-Not Attempted due to Medical Conditions or Safety Concerns. Other Treatment 1st session ([id number]): Co-treat with PT([id number]), requires 2 clinicians for skilled instruction, care and modifications due to pt's confusion, decreased mobility, decreased activity tolerance and fall risk. PT focusing on ambulation, transfers and w/c mobility while OT focusing on B UE placement during transfers, functional mobility and B UE strengthening. See PT notes for progress on transfers and ambulation. Pt requires verbal cues for hand placement with ambulation, w/c mobility and transfers. Pt completed B UE and B LE hand eye coordination exercises against gravity for 3 sets 2 min reps. Pt fatigues quickly. Pt ambulated the length of therapy gym using FWW, see PT notes for progress. After session, pt sitting in recliner with call light/phone in reach. All needs met in room. 2nd session([id number]): Pt completed fine motor and cognitive tasks to work on improving functional daily living skills. Pt required verbal and gestural cues throughout session to remain on tasks and to sequence skills. After session, pt sitting in recliner with call light/phone in reach. All needs met in room. OT Short Term Goals Short Term Goals Time Frame: Mar 04, 2021 Oral hygiene: 5 Toileting hygiene: 5 OT Plastic Printer Goals Plastic Printer Goals Time Frame: Mar 18, 2021 Eating (QC): 6 Oral Hygiene (QC): 6 Toileting Hygiene (QC): 6 Shower/Bathe Self (QC): 4 Upper Body Dressing (QC): 5 Lower Body Dressing (QC): 4 On/Off Footwear (QC): 4 Additional Goals: 1-Demonstrate ADL Tasks, 2-Verbalize Understanding, 3- ImproveStrength/Katherine 1=Demonstrate adherence to instructed precautions during ADL tasks. 2=Patient will verbalize/demonstrate understanding of assistive devices/modifications for ADL. 3=Patient will improve strength/tolerance for activity to enable patient to perform ADL's. OT Education/Plan Problem List/Assessment Assessment: Decreased Activ Tolerance, Decreased Safety Aware, Decreased UE Strength, Impaired Coordination, Impaired Funct Balance, Impaired Self-Care Skills, Visual-Perceptual Deficit Discharge Recommendations Plan/Recommendations: Continue POC Treatment Plan/Plan of Care Patient would benefit from OT for education, treatment and training to promote independence in ADL's, mobility, safety and/or upper extremity function for ADL's. Plan of Care: ADL Retraining, Functional Mobility, Group Exercise/Act as Ind, UE Funct Exercise/Act Treatment Duration: Mar 18, 2021 Frequency: At least 5 of 7 days/Wk (IRF) Estimated Hrs Per Day: 1.5 hours per day Agreement: Yes Rehab Potential: Fair Time/GCodes Start Time: 11:00 (1315) Stop Time: 12:00 (1330) Total Time Billed (hr/min): 75 Billed Treatment Time 1 visit([id number]) FA 2 (30 min) EX 2 (30 min) co-treat with PT [id number] 1 visit([id number]) EX 1 (15 min) RUPINDER ANGULO Mar 08, 2021 11:54
--- NOTE | 2021-03-08 12:57 | Progress Note - Cardiology ---
Cardiology SOAP Progress Note Subjective: Sitting up in recliner at the bedside No c/o CP or SOB Objective: I&O/Vital Signs 03/08/21 03/09/21 03/09/21 21:16 07:52 08:00 Temp 35.6 Pulse 59 Resp 17 B/P (MAP) 129/66 (87) Pulse Ox 91 94 O2 Delivery Room Air Room Air Room Air Weight (Pounds): 182 Weight (Ounces): 0.6 Weight (Calculated Kilograms): 77.140246 Constitutional: well-developed, well-nourished, other (appears more alert today and answers questions in monosyllables) Respiratory: chest expansion is symmetric, chest is bilaterally symmetric, lungs clear to auscultation Cardiovascular: regular rate-rhythm, S1 and S2, systolic murmur Gastrointestional: audible bowel sounds Extremities: no lower extremity edema bilateral Neurologic/Psychiatric: other (more alert today, cannot cooperate with a neuro exam) Skin: No rash on exposed areas, No ulcerations on exposed areas Results/Procedures: Labs Laboratory Tests 03/09/21 05:50: White Blood Count 8.6, Red Blood Count 3.11L, Hemoglobin 9.1L, Hematocrit 28L, Mean Corpuscular Volume 91, Mean Corpuscular Hemoglobin 29, Mean Corpuscular Hemoglobin Concent 32, Red Cell Distribution Width 17.2H, Platelet Count 204, Mean Platelet Volume 10.7, Sodium Level 137, Potassium Level 4.3, Chloride Level 103, Carbon Dioxide Level 26, Anion Gap 8, Blood Urea Nitrogen 29H, Creatinine 0.95, Estimat Glomerular Filtration Rate 57, BUN/Creatinine Ratio 31, Glucose Level 98, Calcium Level 9.4, Corrected Calcium 10.3H, Total Bilirubin 0.9, Aspartate Amino Transf (AST/SGOT) 11, Alanine Aminotransferase (ALT/SGPT) 10, Alkaline Phosphatase 87, Total Protein 5.7L, Albumin 2.9L Microbiology 03/06/21 Urine Culture - Preliminary, Resulted Escherichia coli A/P: Assessment: UTI - management per medical services 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 Lemos of interventional radiology at [facility] Chronic a-fib documented - had been on OAC with warfarin and was transitioning to Eliquis at time of stroke per records from [facility] Valvular heart disease - Echocardiogram on 02-15-[address] 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
[2021-03-08] MEDS: VANCOMYCIN 1 GM/NS 250 ML IVPB IV SCH ×2 (13:58)
[2021-03-08 20:00] VITALS: BP 149/80
[2021-03-08] MEDS: MELATONIN 3 MG TABLET PO PRN (21:01)
[2021-03-08] MEDS: rOPINIRole 1 MG (REQUIP) TABLET PO SCH (21:01)
[2021-03-08] MEDS: AMITRIPTYLINE 25 MG (ELAVIL) TAB PO SCH (21:01)
[2021-03-08] MEDS: LATANOPROST 0.005% (XALATAN) OPHTH SOLN 2.5 ML OU SCH (21:06)
[2021-03-09] MEDS: MEROPENEM 500 MG in WATER (STERILE) FOR INJECTION 10 ML IV SCH ×3 (05:49→21:33)
[2021-03-09] MEDS: KCL 20 MEQ TAB (K-DUR) PO SCH (05:56)
[2021-03-09] MEDS: HYDROcodone/APAP 5 MG/325 MG (LORTAB) TAB PO PRN ×2 (05:57→20:36)
[2021-03-09 06:04] LABS: HEMATOCRIT 28 % (35-52); HEMOGLOBIN 9.1 g/dL (11.5-16.0); MEAN CORPUSCULAR HEMOGLOBIN 29 pg (25-34); MEAN CORPUSCULAR HGB CONC 32 g/dL (32-36); MEAN CORPUSCULAR VOLUME 91 fL (80-99); MEAN PLATELET VOLUME 10.7 fL (9.0-12.2); PLATELET COUNT 204 10^3/uL (130-400); WHITE BLOOD COUNT 8.6 10^3/uL (4.3-11.0)
[2021-03-09 06:14] LABS: ALBUMIN 2.9 GM/DL (3.2-4.5); POTASSIUM 4.3 MMOL/L (3.6-5.0)
[2021-03-09 06:15] LABS: CALCIUM 9.4 MG/DL (8.5-10.1)
[2021-03-09 06:16] LABS: TOTAL PROTEIN 5.7 GM/DL (6.4-8.2)
[2021-03-09 06:18] LABS: BILIRUBIN,TOTAL 0.9 MG/DL (0.1-1.0)
[2021-03-09 06:20] LABS: CREATININE SERUM 0.95 MG/DL (0.60-1.30)
--- NOTE | 2021-03-09 06:26 | PM&R Progress Note ---
Subjective HPI/CC On Admission Date Seen by Provider: Mar 09, 2021 Time Seen by Provider: 11:00 Subjective/Events-last exam 03/09/21: Pt doing pretty well Labs look good Chest X-ray improved Will likely transfer from IV antibiotics to oral tomorrow Overall seems to be doing pretty well but not consistent 03/08/2021: Pt doing really well Increased confusion but she is otherwise back at her baseline in my opinion Urine culture is pending, it is gram negative Meropenem and Vancomycin She is messing with her IV, she may end up pulling it out 03/07/2021: Pt doing pretty well but tearful with everything Lactinex will be given for loose stools due to antibiotics Pneumonia diagnosed without sepsis last night 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 and Vancomycin to cover for MRSA 03/06/2021: Patient doing pretty well Bowels moved yesterday Slowly able to ambulate Confusion persist 03/05/2021: Increase conversation No major issues No falls Gaining strength 03/04/2021: Patient doing really well Son who came in really help the situation Now she is communicating a walking very well Asked the son to come in more often 03/03/2021: Patient about the same Has plateaued I spoke with administrative medical director for insurance and he declined skilled care even though she has no formal plan for discharge and she will need long-term care [facility] Cognitive deficit noted making it slow recovery if at all 03/02/2021: Patient doing pretty well Sleeps most of the time again [facility] at discharge Bowels move this morning 03/01/2021: Patient about the same Sleeps a lot of the time No pain is reported Discharge planning 02/28/2021: Patient doing pretty well Sleeps most of the time Had a bowel movement yesterday No major issues or concerns per RN 02/27/2021: Patient doing about the same Complains of left knee pain without injury Patient very cognitive deficient Appears to be very chronically ill 02/26/2021: Mildly hypotensive so holding blood pressure medication for systolic less than 120 Slept pretty well Having some loose bowel movements so holding laxatives Monitoring closely Currently sleeping 02/25/2021: Patient doing pretty well today Oriented x1 Expressive aphasia makes it difficult to communicate Appreciate cardiology consultation Echocardiogram was performed with bubble test Fall risk prevention Check meds and labs Review of Systems General: Fatigue Focused Exam Lactate Level Objective Exam Vital Signs Vital Signs Date Time Temp Pulse Resp B/P (MAP) Pulse Ox O2 Delivery O2 Flow Rate FiO2 03/09/21 20:59 Room Air 03/09/21 20:26 37.8 63 20 143/67 (92) 92 Capillary Refill : General Appearance: No Apparent Distress, WD/WN, Chronically ill HEENT: PERRL/EOMI, Normal ENT Inspection, Pharynx Normal Neck: Full Range of Motion, Normal Inspection, Non Tender, Supple, Carotid Bruit Respiratory: Chest Non Tender, Lungs Clear, Normal Breath Sounds, No Accessory Muscle Use, No Respiratory Distress Cardiovascular: Regular Rate, Rhythm, No Edema, No Gallop, No JVD, Normal Peripheral Pulses, Systolic Murmur Gastrointestinal: Normal Bowel Sounds, No Organomegaly, No Pulsatile Mass, Non Tender, Soft Back: Normal Inspection, No CVA Tenderness, No Vertebral Tenderness Extremity: Normal Capillary Refill, Normal Inspection, Normal Range of Motion, Non Tender, No Calf Tenderness, No Pedal Edema Neurologic/Psychiatric: Alert, Oriented x3, No Motor/Sensory Deficits, Normal Mood/Affect, Abnormal Gait, Aphasia, Disoriented, Motor Weakness Skin: Normal Color, Warm/Dry Lymphatic: No Adenopathy Results/Procedures Lab Laboratory Tests 03/09/21 05:50 Patient resulted labs reviewed. FIM Transfers Therapy Code Descriptions/Definitions Functional [place] Measure: 0=Not Assessed/NA 4=Minimal Assistance 1=Total Assistance 5=Supervision or Setup 2=Maximal Assistance 6=Modified [place] 3=Moderate Assistance 7=Complete IndependenceSCALE: Activities may be completed with or without assistive devices. 6-Kurfklnvgn-pdmxbxt completes the activity by him/herself with no assistance from a helper. 5-Set-up or Clean-up Assistance-helper sets up or cleans up; patient completes activity. [place] assists only prior to or following the activity. 4-Supervision or Touching Assistance-helper provides verbal cues and/or touchi ng/steadying and/or contact guard assistance as patient completes activity. Assistance may be provided throughout the activity or intermittently. 3-Partial/Moderate Assistance-helper does LESS THAN HALF the effort. [place] lifts, holds or supports trunk or limbs, but provides less than half the effort. 2-Substantial/Maximal Assistance-helper does MORE THAN HALF the effort. [place] lifts or holds trunk or limbs and provides more than half the effort. 0-Kkvfhtfjz-ipetba does ALL the effort. Patient does none of the effort to complete the activity. Or, the assistance of 2 or more helpers is required for the patient to complete the activity. If activity was not attempted, code reason: 7-Patient Refused. 9-Not Applicable-not attempted and the patient did not perform the activity befo re the current illness, exacerbation or injury. 10-Not Attempted due to Environmental Limitations-(lack of equipment, weather restraints, etc.). 88-Not Attempted due to Medical Conditions or Safety Concerns. Roll Left to Right (QC): 6 Sit to Lying (QC): 5 Sit to Stand (QC): 3 Chair/Vzg-kj-Aeoxr Xfer(QC): 3 Car Transfer (QC): 1 Gait Training Does the Patient Walk?: Yes Distance: 20'x2 Walk 10 feet (QC): 4 Walk 50 ft with 2 Turns(QC): 88 Walk 150 ft (QC): 88 Walking 10ft/uneven surface-QC: 88 Gait Persons Needed: 1 Gait Assistive Device: FWW Wheelchair Training Does the Pt Use a Wheelchair?: Yes Distance: 150'x2 Wheel 50 ft with 2 turns (QC): 3 Wheel 150 ft (QC): 3 Type of Wheelchair: Manual Stair Training 1 Step (curb) (QC): 88 4 Steps (QC): 88 12 Steps (QC): 88 Balance Picking up an Object (QC): 88 ADL-Treatment Eating (QC): 6 Oral Hygiene (QC): 4 Shower/Bathe Self (QC): 4 Upper Body Dressing (QC): 5 Lower Body Dressing (QC): 4 On/Off Footwear (QC): 3 Toileting Hygiene (QC): 4 Toilet Transfer (QC): 4 Assessment/Plan Assessment and Plan Assess & Plan/Chief Complaint Assessment: CVA Partial aphasia Receptive aphasia Hypertension Aortic stenosis Chronic atrial fibrillation Memory loss Debility History of Covid Pneumonia hospital-acquired 03/06/2021 maintained on meropenem and vancomycin Plan: Cardiology consult Inpatient rehab protocol Aggressive therapy Fall risk 02/25/2021: Fall risk prevention Increase independence in ADLs Appreciate cardiology 02/26/2021: Monitor closely Fall risk Monitor confusion 02/27/2021: Knee pain management Monitor closely Fall risk 02/28/2021: Chronic debility Sleeps most of the day 03/01/2021: Monitor closely Sleeps most of the time 03/02/2021: Needs [facility] at discharge Monitor closely 03/03/2021: Insurance denied [facility] admit Monitor closely 03/04/2021: Dramatically improved with son in the room Monitor closely 03/05/2021: Dramatic improvement Continue therapy 03/06/2021: Monitor closely Continue treatment 03/07/2021: Pneumonia treatment Therapy 03/08/2021: Supportive care Pneumonia treatment 03/09/21: Transition IV abx to PO tomorrow Monitor closely (1) CVA (cerebral vascular accident) (2) Right sided weakness Status: Acute (3) Aphasia Status: Acute (4) Debility Status: Acute (5) Delirium Status: Acute MAAME LOMBARDO DO Mar 09, 2021 06:26
--- NOTE | 2021-03-09 07:30 | Diagnostic Imaging Report ---
EXAMINATION: Chest 1 view HISTORY: Pneumonia COMPARISON: 03/06/2021 FINDINGS: Stable enlargement of the cardiac silhouette. A right-sided cardiac device is unchanged. Stable calcifications of the aorta. Stable patchy interstitial opacities within both lungs. Stable small right pleural effusion with more focal right basilar airspace opacification. No pneumothorax. Degenerative changes of the thoracic spine. Osseous structures are otherwise intact. IMPRESSION: 1. Stable cardiomegaly, interstitial opacities, and right pleural effusion and adjacent atelectasis or pneumonia. Dictated by: Dictated on workstation # [id number]
--- NOTE | 2021-03-09 07:36 | Occupational Ther Daily Note ---
OT Current Status-Daily Note Subjective Pt alert, sitting in recliner. Pt oriented x1. Pt agrees to work with SOOD. Only c/o pain is with knees during sit to stand and ambulation. Mental Status/Objective Patient Orientation: Person, Confused Attachments: IV ([facility]) ADL-Treatment Pt requires set up for meal then uses regular utensils to eat. Pt transfers to [facility] with mod A for sit to stand then CGA for SPT using FWW. Assist to manipulate clothing for toileting. Pt sits on BSC to cleanse after voiding and to wash for sponge bath. Pt requires verbal cues for directions on initiation of each task. Pt requires assistance to hike pants up/down over hips and thread off of feet. Pt able to thread pants over feet. Pt able to don/doff ice puller shirt, assist needed to don/doff button up shirt. Assist to don/doff socks. Pt takes increased time to complete all tasks due to sequencing and problem solving issues. Sitting at sink pt is able to complete oral care after verbal cues to initiate tasks. After therapy, pt sitting in recliner with call light/phone in reach. All needs met in room. Therapy Code Descriptions/Definitions Functional [place] Measure: 0=Not Assessed/NA 4=Minimal Assistance 1=Total Assistance 5=Supervision or Setup 2=Maximal Assistance 6=Modified [place] 3=Moderate Assistance 7=Complete IndependenceSCALE: Activities may be completed with or without assistive devices. 8-Pgjyrbqwxm-uxnloix completes the activity by him/herself with no assistance from a helper. 5-Set-up or Clean-up Assistance-helper sets up or cleans up; patient completes activity. [place] assists only prior to or following the activity. 4-Supervision or Touching Assistance-helper provides verbal cues and/or touching/steadying and/or contact guard assistance as patient completes activity. Assistance may be provided throughout the activity or intermittently. 3-Partial/Moderate Assistance-helper does LESS THAN HALF the effort. [place] lifts, holds or supports trunk or limbs, but provides less than half the effort. 2-Substantial/Maximal Assistance-helper does MORE THAN HALF the effort. [place] lifts or holds trunk or limbs and provides more than half the effort. 7-Jdbaguzpv-uvzytf does ALL the effort. Patient does none of the effort to complete the activity. Or, the assistance of 2 or more helpers is required for the patient to complete the activity. If activity was not attempted, code reason: 7-Patient Refused. 9-Not Applicable-not attempted and the patient did not perform the activity before the current illness, exacerbation or injury. 10-Not Attempted due to Environmental Limitations-(lack of equipment, weather restraints, etc.). 88-Not Attempted due to Medical Conditions or Safety Concerns. Eating (QC): 5 Oral Hygiene (QC): 5 Shower/Bathe Self (QC): 4 (Supervison and sitting on BSC.) Upper Body Dressing (QC): 3 (Assist with button up shirt.) Lower Body Dressing (QC): 2 (Assist to doff and assist to manipulate over hips.) On/Off Footwear: 2 Toileting Hygiene (QC): 3 Toilet Transfer (QC): 3 OT Short Term Goals Short Term Goals Time Frame: Mar 04, 2021 Oral hygiene: 5 Toileting hygiene: 5 OT Chicken Handler Goals Half-Way Goals Time Frame: Mar 18, 2021 Eating (QC): 6 Oral Hygiene (QC): 6 Toileting Hygiene (QC): 6 Shower/Bathe Self (QC): 4 Upper Body Dressing (QC): 5 Lower Body Dressing (QC): 4 On/Off Footwear (QC): 4 Additional Goals: 1-Demonstrate ADL Tasks, 2-Verbalize Understanding, 3- ImproveStrength/Katherine 1=Demonstrate adherence to instructed precautions during ADL tasks. 2=Patient will verbalize/demonstrate understanding of assistive devices/modifications for ADL. 3=Patient will improve strength/tolerance for activity to enable patient to perform ADL's. OT Education/Plan Problem List/Assessment Assessment: Decreased Activ Tolerance, Decreased Safety Aware, Decreased UE Strength, Impaired Cognition, Impaired Coordination, Impaired Funct Balance, Impaired Self-Care Skills, Visual-Perceptual Deficit Discharge Recommendations Plan/Recommendations: Continue POC Treatment Plan/Plan of Care Patient would benefit from OT for education, treatment and training to promote independence in ADL's, mobility, safety and/or upper extremity function for ADL's. Plan of Care: ADL Retraining, Functional Mobility, Group Exercise/Act as Ind, UE Funct Exercise/Act Treatment Duration: Mar 18, 2021 Frequency: At least 5 of 7 days/Wk (IRF) Estimated Hrs Per Day: 1.5 hours per day Agreement: Yes Rehab Potential: Fair Time/GCodes Start Time: 07:15 Stop Time: 09:00 Total Time Billed (hr/min): 105 Billed Treatment Time 1 visit-ADL 8 (105 min) RUPINDER ANGULO Mar 09, 2021 07:36
[2021-03-09] MEDS: polyethylene glycoL POWDER 17 GM (MIRALAX) PACK PO SCH ×2 (07:44→19:43)
[2021-03-09] MEDS: SENNA W/DOCUSATE (SENOKOT S) TABLET PO SCH ×2 (07:44→19:43)
[2021-03-09] MEDS: DOCUSATE SODIUM 100 MG (COLACE) CAP PO SCH ×2 (07:44→19:43)
[2021-03-09] MEDS: RT--FLUTICASONE/SALMETEROL 232-14 (AIRDUO RespiCLICK) IH SCH ×2 (07:52→18:49)
[2021-03-09 08:00] VITALS: BP 129/66
[2021-03-09] MEDS: APIXABAN 5 MG (ELIQUIS) TABLET PO SCH ×2 (08:44→20:36)
[2021-03-09] MEDS: LACTOBACILLUS ACIDOPHILUS (PROBIOTIC) CAPSULE PO SCH ×3 (08:44→17:57)
[2021-03-09] MEDS: lisINopril 5 MG (PRINIVIL) TABLET PO SCH (08:44)
[2021-03-09] MEDS: FUROSEMIDE 40 MG (LASIX) TAB PO SCH (08:44)
[2021-03-09] MEDS: SPIRONOLACTONE 25 MG (ALDACTONE) TAB PO SCH (08:44)
[2021-03-09] MEDS: ROSUVASTATIN 20 MG (CRESTOR) TABLET PO SCH (08:44)
[2021-03-09] MEDS: GABAPENTIN 300 MG (NEURONTIN) CAP PO SCH ×3 (08:44→20:36)
--- NOTE | 2021-03-09 09:30 | Physical Therapy Daily Note ---
PT Daily Note-Current Subjective Pt up in chair, agreeable to PT. Pt dozing off during seated therex. Unable to rate pain. Pt states "It's my knees" when asked to rate pain. Mental Status Patient Orientation: Person, Confused Transfers SCALE: Activities may be completed with or without assistive devices. 8-Ltkxrbescb-sedjdhh completes the activity by him/herself with no assistance from a helper. 5-Set-up or Clean-up Assistance-helper sets up or cleans up; patient completes activity. [place] assists only prior to or following the activity. 4-Supervision or Touching Assistance-helper provides verbal cues and/or touching/steadying and/or contact guard assistance as patient completes activity. Assistance may be provided throughout the activity or intermittently. 3-Partial/Moderate Assistance-helper does LESS THAN HALF the effort. [place] lifts, holds or supports trunk or limbs, but provides less than half the effort. 2-Substantial/Maximal Assistance-helper does MORE THAN HALF the effort. [place] lifts or holds trunk or limbs and provides more than half the effort. 9-Rftctzxee-jbhvbp does ALL the effort. Patient does none of the effort to complete the activity. Or, the assistance of 2 or more helpers is required for the patient to complete the activity. If activity was not attempted, code reason: 7-Patient Refused. 9-Not Applicable-not attempted and the patient did not perform the activity before the current illness, exacerbation or injury. 10-Not Attempted due to Environmental Limitations-(lack of equipment, weather restraints, etc.). 88-Not Attempted due to Medical Conditions or Safety Concerns. SPT slow, CGA from elevated surface. Pt required mod A to stand from standard height. Weight Bearing Full Weight Bearing Full Weight Bearing Gait Training Gait Assistive Device: FWW Pt amb 1 x 20ft, 1 x 35ft with FWW and f/u of w/c. Pt required vc's to maintain close proximity to walker as she fatigued. Exercises Seated Therapy Exercises: Ankle pumps, Long arc quads Seated Reps: 5 NuStep Minutes: 15 NuStep Workload: 1 Treatments Pt seen for LE ther ex, Nu-step, gait training and transfer training. Assessment Current Status: Good Progress, Fair Progress Pt responded well to Nu-step by decreased pain per pt in (B) knees following use. Pt back to chair with call light and all needs met. Ambu alarm activated. PT Short Term Goals Short Term Goals Time Frame: Mar 04, 2021 Roll Left & Right: 6 Sit to lyin Lying to sitting on side of be: 4 Sit to stand: 4 Chair/eug-dg-hvgcz transfer: 4 Walk 10 feet: 4 Walk 50 feet with two turns: 4 PT Sheetmetal Patternmaker Goals Sheetmetal Patternmaker Goals PT Chcf Goals Time Frame: Mar 18, 2021 Roll Left & Right (QC): 6 Sit to Lying (QC): 6 Lying-Sitting on Side/Bed(QC): 6 Sit to Stand (QC): 4 (SBA) Chair/Dhl-wr-Lmosv Xfer(QC): 4 (SBA) Toilet Transfer (QC): 4 (SBA) Car Transfer (QC): 4 (SBA) Does the Patient Walk: Yes Walk 10 feet (QC): 4 (SBA) Walk 50ft with 2 Turns (QC): 4 (SBA) Walk 150 ft (QC): 88 Walking 10ft on Uneven Surface: 88 1 Step (curb) (QC): 88 4 Steps (QC): 88 12 Steps (QC): 88 Picking up an Object (QC): 88 Wheel 50 feet with 2 turns (QC: 5 Wheel 150 feet: 5 PT Plan Treatment/Plan Treatment Plan: Continue Plan of Care Treatment Plan: Bed Mobility, Education, Functional Activity Katherine, Functional Strength, Group Therapy, Gait, Safety, Therapeutic Exercise, Transfers Treatment Duration: Mar 18, 2021 Frequency: At least 5 of 7 days/Wk (IRF) Estimated Hrs Per Day: 1.5 hours per day Patient and/or Family Agrees t: Yes Time/GCodes Time In: 850 Time Out: 935 Total Billed Treatment Time: 45 Total Billed Treatment 1, ther ex 30', gait 15' ISAAC FRANCO CPTA Mar 09, 2021 09:30
--- NOTE | 2021-03-09 10:57 | Speech Therapy Daily Note ---
Speech Daily Progress Note Subjective Date Seen by Provider: Mar 09, 2021 Time Seen by Provider: 00:30 Patient was resting in her recliner watching television when I entered her room. She was more alert today and participated with therapy. Objective Patient completed a series of general information questions with 70% given min to mod verbal cuing. Assessment Assessment Current Status: Fair Progress Treatment Plan Continue Plan of Care Speech Short Term Goals Short Term Goals Short Term Goals 1) Patient will complete memory tasks related to her daily needs at 80% or greater with minimal cuing. 2) Patient will complete safety awareness tasks related to her daily needs at 80% or greater with minimal cuing. 3) Patient will complete problem solving tasks related to her daily needs at 80% or greater with minimal cuing. Speech Assisted Goals Mold Construction Supervisor Goals Patient will improve cognitive-communication abilities so that she is able to complete daily tasks with decreased assist. Speech-Plan Patient/Family Goals Patient/Family Goals: Patient's discharge information is unknown at this time. Treatment Plan Speech Therapy Treatment Plan: Continue Plan of Care Treatment Duration: Mar 11, 2021 Frequency: 4 times per week (Patient will receive skilled ST 4-5x per week) Estimated Hrs Per Day: .5 hour per day Rehab Potential: Fair Barriers to Learning: Patient's medical status, cognitive deficits Pt/Family Agrees to Plan: Yes Safety Risks/Education Teaching Recipient: Patient Teaching Methods: Demonstration, Discussion Response to Teaching: Verbalize Understanding, Return Demonstration, Reinforcement Needed Education Topics Provided: Continued safety, re-education with the call light funciton Time Speech Therapy Time In: 10:30 Speech Therapy Time Out: 10:00 Total Billed Time: 30 Billed Treatment Time PENELOPE Hinton Yes ONELIA BEARD Mar 09, 2021 10:57
[2021-03-09] MEDS ORDERED: TROUGH ORDER-PHARMACY XX NR (13:00)
[2021-03-09] MEDS: NAPHA/PHEN (NAPHCON-A, OPCON-A) OP SOLN 15 ML BTL OS SCH ×3 (13:19→20:36)
[2021-03-09] MEDS ORDERED: VANCOMYCIN 1250 MG/NS 250 ML IVPB IV SCH ×2 (14:00)
[2021-03-09 20:26] VITALS: BP 143/67
[2021-03-09] MEDS: AMITRIPTYLINE 25 MG (ELAVIL) TAB PO SCH (20:36)
[2021-03-09] MEDS: MELATONIN 3 MG TABLET PO PRN (20:36)
[2021-03-09] MEDS: LATANOPROST 0.005% (XALATAN) OPHTH SOLN 2.5 ML OU SCH (20:37)
[2021-03-09] MEDS: rOPINIRole 1 MG (REQUIP) TABLET PO SCH (20:41)
[2021-03-10] MEDS: HYDROcodone/APAP 5 MG/325 MG (LORTAB) TAB PO PRN ×2 (05:09→15:57)
--- NOTE | 2021-03-10 05:59 | PM&R Progress Note ---
Subjective HPI/CC On Admission Date Seen by Provider: Mar 10, 2021 Time Seen by Provider: 12:00 Subjective/Events-last exam 03/10/2021: Patient needs long-term care Change to oral antibiotics today Very tearful when son is not around 03/09/21: Pt doing pretty well Labs look good Chest X-ray improved Will likely transfer from IV antibiotics to oral tomorrow Overall seems to be doing pretty well but not consistent 03/08/2021: Pt doing really well Increased confusion but she is otherwise back at her baseline in my opinion Urine culture is pending, it is gram negative Meropenem and Vancomycin She is messing with her IV, she may end up pulling it out 03/07/2021: Pt doing pretty well but tearful with everything Lactinex will be given for loose stools due to antibiotics Pneumonia diagnosed without sepsis last night 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 and Vancomycin to cover for MRSA 03/06/2021: Patient doing pretty well Bowels moved yesterday Slowly able to ambulate Confusion persist 03/05/2021: Increase conversation No major issues No falls Gaining strength 03/04/2021: Patient doing really well Son who came in really help the situation Now she is communicating a walking very well Asked the son to come in more often 03/03/2021: Patient about the same Has plateaued I spoke with medical librarian for insurance and he declined skilled care even though she has no formal plan for discharge and she will need long-term care [facility] Cognitive deficit noted making it slow recovery if at all 03/02/2021: Patient doing pretty well Sleeps most of the time again [facility] at discharge Bowels move this morning 03/01/2021: Patient about the same Sleeps a lot of the time No pain is reported Discharge planning 02/28/2021: Patient doing pretty well Sleeps most of the time Had a bowel movement yesterday No major issues or concerns per RN 02/27/2021: Patient doing about the same Complains of left knee pain without injury Patient very cognitive deficient Appears to be very chronically ill 02/26/2021: Mildly hypotensive so holding blood pressure medication for systolic less than 120 Slept pretty well Having some loose bowel movements so holding laxatives Monitoring closely Currently sleeping 02/25/2021: Patient doing pretty well today Oriented x1 Expressive aphasia makes it difficult to communicate Appreciate cardiology consultation Echocardiogram was performed with bubble test Fall risk prevention Check meds and labs Review of Systems General: Fatigue, Malaise Neurological: Weakness, Incoordination Objective Exam Vital Signs Vital Signs Date Time Temp Pulse Resp B/P (MAP) Pulse Ox O2 Delivery O2 Flow Rate FiO2 03/10/21 20:38 36.6 66 16 109/55 (73) 95 Room Air Capillary Refill : General Appearance: No Apparent Distress, WD/WN, Chronically ill HEENT: PERRL/EOMI, Normal ENT Inspection, Pharynx Normal Neck: Full Range of Motion, Normal Inspection, Non Tender, Supple, Carotid Bruit Respiratory: Chest Non Tender, Lungs Clear, Normal Breath Sounds, No Accessory Muscle Use, No Respiratory Distress Cardiovascular: Regular Rate, Rhythm, No Edema, No Gallop, No JVD, Normal Peripheral Pulses, Systolic Murmur Gastrointestinal: Normal Bowel Sounds, No Organomegaly, No Pulsatile Mass, Non Tender, Soft Back: Normal Inspection, No CVA Tenderness, No Vertebral Tenderness Extremity: Normal Capillary Refill, Normal Inspection, Normal Range of Motion, Non Tender, No Calf Tenderness, No Pedal Edema Neurologic/Psychiatric: Alert, Oriented x3, No Motor/Sensory Deficits, Normal Mood/Affect, Abnormal Gait, Aphasia, Disoriented, Motor Weakness Skin: Normal Color, Warm/Dry Lymphatic: No Adenopathy Results/Procedures Lab Patient resulted labs reviewed. FIM Transfers Therapy Code Descriptions/Definitions Functional [place] Measure: 0=Not Assessed/NA 4=Minimal Assistance 1=Total Assistance 5=Supervision or Setup 2=Maximal Assistance 6=Modified [place] 3=Moderate Assistance 7=Complete IndependenceSCALE: Activities may be completed with or without assistive devices. 4-Fzxrpifqux-wemnjct completes the activity by him/herself with no assistance from a helper. 5-Set-up or Clean-up Assistance-helper sets up or cleans up; patient completes activity. [place] assists only prior to or following the activity. 4-Supervision or Touching Assistance-helper provides verbal cues and/or touching/steadying and/or contact guard assistance as patient completes activity. Assistance may be provided throughout the activity or intermittently. 3-Partial/Moderate Assistance-helper does LESS THAN HALF the effort. [place] lifts, holds or supports trunk or limbs, but provides less than half the effort. 2-Substantial/Maximal Assistance-helper does MORE THAN HALF the effort. [place] lifts or holds trunk or limbs and provides more than half the effort. 4-Aoutvkfdz-lwrgtw does ALL the effort. Patient does none of the effort to complete the activity. Or, the assistance of 2 or more helpers is required for the patient to complete the activity. If activity was not attempted, code reason: 7-Patient Refused. 9-Not Applicable-not attempted and the patient did not perform the activity be fore the current illness, exacerbation or injury. 10-Not Attempted due to Environmental Limitations-(lack of equipment, weather restraints, etc.). 88-Not Attempted due to Medical Conditions or Safety Concerns. Roll Left to Right (QC): 6 Sit to Lying (QC): 5 Sit to Stand (QC): 3 Chair/Ldj-yu-Mjkmc Xfer(QC): 3 Car Transfer (QC): 1 Gait Training Does the Patient Walk?: Yes Distance: 20'x2 Walk 10 feet (QC): 4 Walk 50 ft with 2 Turns(QC): 88 Walk 150 ft (QC): 88 Walking 10ft/uneven surface-QC: 88 Gait Persons Needed: 1 Gait Assistive Device: FWW Wheelchair Training Does the Pt Use a Wheelchair?: Yes Distance: 150'x2 Wheel 50 ft with 2 turns (QC): 3 Wheel 150 ft (QC): 3 Type of Wheelchair: Manual Stair Training 1 Step (curb) (QC): 88 4 Steps (QC): 88 12 Steps (QC): 88 Balance Picking up an Object (QC): 88 ADL-Treatment Eating (QC): 5 Oral Hygiene (QC): 5 Shower/Bathe Self (QC): 4 (Supervison and sitting on BSC.) Upper Body Dressing (QC): 3 (Assist with button up shirt.) Lower Body Dressing (QC): 2 (Assist to doff and assist to manipulate over hips.) On/Off Footwear (QC): 2 Toileting Hygiene (QC): 3 Toilet Transfer (QC): 3 Assessment/Plan Assessment and Plan Assess & Plan/Chief Complaint Assessment: CVA Partial aphasia Receptive aphasia Hypertension Aortic stenosis Chronic atrial fibrillation Memory loss Debility History of Covid Pneumonia hospital-acquired 03/06/2021 maintained on meropenem and vancomycin Plan: Cardiology consult Inpatient rehab protocol Aggressive therapy Fall risk 02/25/2021: Fall risk prevention Increase independence in ADLs Appreciate cardiology 02/26/2021: Monitor closely Fall risk Monitor confusion 02/27/2021: Knee pain management Monitor closely Fall risk 02/28/2021: Chronic debility Sleeps most of the day 03/01/2021: Monitor closely Sleeps most of the time 03/02/2021: Needs [facility] discharge Monitor closely 03/03/2021: Insurance denied [facility] admit Monitor closely 03/04/2021: Dramatically improved with son in the room Monitor closely 03/05/2021: Dramatic improvement Continue therapy 03/06/2021: Monitor closely Continue treatment 03/07/2021: Pneumonia treatment Therapy 03/08/2021: Supportive care Pneumonia treatment 03/09/21: Transition IV abx to PO tomorrow Monitor closely 03/10/2021: Supportive care Oral antibiotics Monitor closely (1) CVA (cerebral vascular accident) (2) Right sided weakness Status: Acute (3) Aphasia Status: Acute (4) Debility Status: Acute (5) Delirium Status: Acute MAAME LOMBARDO DO Mar 10, 2021 05:59
[2021-03-10] MEDS: KCL 20 MEQ TAB (K-DUR) PO SCH (06:22)
--- NOTE | 2021-03-10 07:31 | Occupational Ther Daily Note ---
OT Current Status-Daily Note Subjective Pt alert, lying in bed. Pt agrees to therapy. Pt c/o pain in knees, applied warm blanket to area and reported to nrsg tech. Mental Status/Objective Patient Orientation: Person, Confused Attachments: IV (PICC) ADL-Treatment With HOB elevated, pt able to go from supine to EOB mod I. From elevated surface, pt able to go from EOB to stand with CGA then CGA for SPT using FWW from bed to recliner. Pt's knees are painful and takes increased time with all movement. Pt requires set up for meal then uses regular utensils to eat. Pt takes increased time to problem solve and sequence sponge bath and dressing. Pt bathed upper body then began to start dressing. After session, pt sitting in recliner with call light in reach. Chair alarm activated. All needs met in room. Therapy Code Descriptions/Definitions Functional [place] Measure: 0=Not Assessed/NA 4=Minimal Assistance 1=Total Assistance 5=Supervision or Setup 2=Maximal Assistance 6=Modified [place] 3=Moderate Assistance 7=Complete IndependenceSCALE: Activities may be completed with or without assistive devices. 7-Hxysnnfikm-hnlbyql completes the activity by him/herself with no assistance from a helper. 5-Set-up or Clean-up Assistance-helper sets up or cleans up; patient completes activity. [place] assists only prior to or following the activity. 4-Supervision or Touching Assistance-helper provides verbal cues and/or touching /steadying and/or contact guard assistance as patient completes activity. Assistance may be provided throughout the activity or intermittently. 3-Partial/Moderate Assistance-helper does LESS THAN HALF the effort. [place] lifts, holds or supports trunk or limbs, but provides less than half the effort. 2-Substantial/Maximal Assistance-helper does MORE THAN HALF the effort. [place] lifts or holds trunk or limbs and provides more than half the effort. 6-Sxdnhqcxz-jmvwua does ALL the effort. Patient does none of the effort to complete the activity. Or, the assistance of 2 or more helpers is required for the patient to complete the activity. If activity was not attempted, code reason: 7-Patient Refused. 9-Not Applicable-not attempted and the patient did not perform the activity before the current illness, exacerbation or injury. 10-Not Attempted due to Environmental Limitations-(lack of equipment, weather restraints, etc.). 88-Not Attempted due to Medical Conditions or Safety Concerns. Eating (QC): 5 Upper Body Dressing (QC): 3 (Pt donned shirt by self then required assist to button.) Lower Body Dressing (QC): 4 (After set up pt threaded pants over feet be self then with CGA pt able to hike over hips) On/Off Footwear: 5 (pt doffed donned socks by self after set up) OT Short Term Goals Short Term Goals Time Frame: Mar 04, 2021 Oral hygiene: 5 Toileting hygiene: 5 OT Mcc Goals Certified Registered Locksmith Goals Time Frame: Mar 18, 2021 Eating (QC): 6 Oral Hygiene (QC): 6 Toileting Hygiene (QC): 6 Shower/Bathe Self (QC): 4 Upper Body Dressing (QC): 5 Lower Body Dressing (QC): 4 On/Off Footwear (QC): 4 Additional Goals: 1-Demonstrate ADL Tasks, 2-Verbalize Understanding, 3- ImproveStrength/Katherine 1=Demonstrate adherence to instructed precautions during ADL tasks. 2=Patient will verbalize/demonstrate understanding of assistive devices/modifications for ADL. 3=Patient will improve strength/tolerance for activity to enable patient to perform ADL's. OT Education/Plan Problem List/Assessment Assessment: Decreased Activ Tolerance, Decreased Safety Aware, Impaired Cognition, Impaired Coordination, Impaired Funct Balance, Impaired Self-Care Skills, Visual-Perceptual Deficit Discharge Recommendations Plan/Recommendations: Continue POC Treatment Plan/Plan of Care Patient would benefit from OT for education, treatment and training to promote independence in ADL's, mobility, safety and/or upper extremity function for ADL's. Plan of Care: ADL Retraining, Functional Mobility, Group Exercise/Act as Ind, UE Funct Exercise/Act Treatment Duration: Mar 18, 2021 Frequency: At least 5 of 7 days/Wk (IRF) Estimated Hrs Per Day: 1.5 hours per day Agreement: Yes Rehab Potential: Fair Time/GCodes Start Time: 07:10 Stop Time: 08:25 Total Time Billed (hr/min): 75 Billed Treatment Time 1 visit-ADL 5 (75 min) RUPINDER ANGULO Mar 10, 2021 07:31
[2021-03-10] MEDS: RT--FLUTICASONE/SALMETEROL 232-14 (AIRDUO RespiCLICK) IH SCH ×2 (07:44→20:27)
[2021-03-10 08:00] VITALS: BP 128/66
[2021-03-10] MEDS: lisINopril 5 MG (PRINIVIL) TABLET PO SCH (08:37)
[2021-03-10] MEDS: FUROSEMIDE 40 MG (LASIX) TAB PO SCH (08:37)
[2021-03-10] MEDS: LACTOBACILLUS ACIDOPHILUS (PROBIOTIC) CAPSULE PO SCH ×3 (08:37→17:26)
[2021-03-10] MEDS: DOCUSATE SODIUM 100 MG (COLACE) CAP PO SCH ×2 (08:37→19:12)
[2021-03-10] MEDS: GABAPENTIN 300 MG (NEURONTIN) CAP PO SCH ×3 (08:37→20:23)
[2021-03-10] MEDS: ROSUVASTATIN 20 MG (CRESTOR) TABLET PO SCH (08:37)
[2021-03-10] MEDS: APIXABAN 5 MG (ELIQUIS) TABLET PO SCH ×2 (08:37→20:23)
[2021-03-10] MEDS: SPIRONOLACTONE 25 MG (ALDACTONE) TAB PO SCH (08:37)
[2021-03-10] MEDS: polyethylene glycoL POWDER 17 GM (MIRALAX) PACK PO SCH ×2 (08:38→19:12)
[2021-03-10] MEDS: SENNA W/DOCUSATE (SENOKOT S) TABLET PO SCH ×2 (08:38→19:13)
[2021-03-10] MEDS: NAPHA/PHEN (NAPHCON-A, OPCON-A) OP SOLN 15 ML BTL OS SCH ×4 (08:39→20:23)
--- NOTE | 2021-03-10 08:59 | Speech Therapy Daily Note ---
Speech Daily Progress Note Subjective Date Seen by Provider: Mar 10, 2021 Time Seen by Provider: 00:30 Patient was resting in her recliner watching television. Patient was alert and participated well today. Objective Patient answered a series of questions related to her immediate environment and needs with 60% given moderate cuing and redirection. Assessment Assessment Current Status: Fair Progress Treatment Plan Continue Plan of Care Speech Short Term Goals Short Term Goals Short Term Goals 1) Patient will complete memory tasks related to her daily needs at 80% or greater with minimal cuing. 2) Patient will complete safety awareness tasks related to her daily needs at 80% or greater with minimal cuing. 3) Patient will complete problem solving tasks related to her daily needs at 80% or greater with minimal cuing. Speech Jail Goals Plant Security Guard Goals Patient will improve cognitive-communication abilities so that she is able to complete daily tasks with decreased assist. Speech-Plan Patient/Family Goals Patient/Family Goals: Patient's discharge location is undetermined at this time. Treatment Plan Speech Therapy Treatment Plan: Continue Plan of Care Treatment Duration: Mar 16, 2021 Frequency: 4 times per week (Patient will receive skilled ST 4-5x per week) Estimated Hrs Per Day: .5 hour per day Rehab Potential: Fair Barriers to Learning: Patient's level of confusion, cognitive deficits Pt/Family Agrees to Plan: Yes Safety Risks/Education Teaching Recipient: Patient Teaching Methods: Demonstration, Discussion Response to Teaching: Verbalize Understanding, Return Demonstration, Reinforcement Needed Education Topics Provided: Continued safety, reeducation to the tv control/call light Time Speech Therapy Time In: 08:30 Speech Therapy Time Out: 09:00 Total Billed Time: 30 Billed Treatment Time PENELOPE Hinton Yes ONELIA BEARD Mar 10, 2021 08:59
--- NOTE | 2021-03-10 09:54 | Physical Therapy Daily Note ---
PT Daily Note-Current Subjective Patient in recliner pre tx, agrees to PT but has to use the commode, patient states her knee pain is worse today. Appearance Patient in recliner post tx with nurse call, phone, tray, all needs met, chair alarm on. Mental Status Patient Orientation: Person, Confused Transfers SCALE: Activities may be completed with or without assistive devices. 6-Vzjdpkykxt-mikhetw completes the activity by him/herself with no assistance from a helper. 5-Set-up or Clean-up Assistance-helper sets up or cleans up; patient completes activity. [place] assists only prior to or following the activity. 4-Supervision or Touching Assistance-helper provides verbal cues and/or touching/steadying and/or contact guard assistance as patient completes activi ty. Assistance may be provided throughout the activity or intermittently. 3-Partial/Moderate Assistance-helper does LESS THAN HALF the effort. [place] lifts, holds or supports trunk or limbs, but provides less than half the effort. 2-Substantial/Maximal Assistance-helper does MORE THAN HALF the effort. [place] lifts or holds trunk or limbs and provides more than half the effort. 5-Hmonwdfmo-lrdlcq does ALL the effort. Patient does none of the effort to complete the activity. Or, the assistance of 2 or more helpers is required for the patient to complete the activity. If activity was not attempted, code reason: 7-Patient Refused. 9-Not Applicable-not attempted and the patient did not perform the activity before the current illness, exacerbation or injury. 10-Not Attempted due to Environmental Limitations-(lack of equipment, weather restraints, etc.). 88-Not Attempted due to Medical Conditions or Safety Concerns. Sit to Stand (QC): 3 Chair/Ndu-pu-Mbksk Xfer(QC): 3 Toilet Transfer (QC): 3 Patient stands from recliner with min assist and transfers to commode with min assist, nurse aide helps get pants down and she sits on the commode for a BM, when done patient again stands with min assist, aide cleans and helps get pants up, and she transfers to Weight Bearing Full Weight Bearing Full Weight Bearing Gait Training Distance: 20' Walk 10 feet (QC): 4 Gait Assistive Device: FWW patient ambulates very slowly, poor foot clearance, flexed bilateral knees, patient states she isn't going to be able to perform any more ambulation after this due to her knee pain Wheelchair Training Does the Pt Use a Wheelchair?: Yes Wheel 50 ft with 2 turns (QC): 3 Wheel 150 ft (QC): 3 Type of Wheelchair: Manual 120', 300' Treatments toileting, transfers, ambulation, WC mobility Assessment Current Status: Poor Progress no change in mobility, worse knee pain PT Short Term Goals Short Term Goals Time Frame: Mar 04, 2021 Roll Left & Right: 6 Sit to lyin Lying to sitting on side of be: 4 Sit to stand: 4 Chair/mul-ba-krlbm transfer: 4 Walk 10 feet: 4 Walk 50 feet with two turns: 4 PT Mcfp Goals [place] Operator Goals PT Mcfp Goals Time Frame: Mar 18, 2021 Roll Left & Right (QC): 6 Sit to Lying (QC): 6 Lying-Sitting on Side/Bed(QC): 6 Sit to Stand (QC): 4 (SBA) Chair/Mre-cv-Acpaw Xfer(QC): 4 (SBA) Toilet Transfer (QC): 4 (SBA) Car Transfer (QC): 4 (SBA) Does the Patient Walk: Yes Walk 10 feet (QC): 4 (SBA) Walk 50ft with 2 Turns (QC): 4 (SBA) Walk 150 ft (QC): 88 Walking 10ft on Uneven Surface: 88 1 Step (curb) (QC): 88 4 Steps (QC): 88 12 Steps (QC): 88 Picking up an Object (QC): 88 Wheel 50 feet with 2 turns (QC: 5 Wheel 150 feet: 5 PT Plan Problem List Problem List: Activity Tolerance, Functional Strength, Safety, Balance, Gait, Transfer, Bed Mobility, ROM Treatment/Plan Treatment Plan: Continue Plan of Care Treatment Plan: Bed Mobility, Education, Functional Activity Katherine, Functional Strength, Group Therapy, Gait, Safety, Therapeutic Exercise, Transfers Treatment Duration: Mar 18, 2021 Frequency: At least 5 of 7 days/Wk (IRF) Estimated Hrs Per Day: 1.5 hours per day Patient and/or Family Agrees t: Yes Safety Risks/Education Patient Education: Gait Training, Transfer Techniques, Correct Positioning, W/C Management, Safety Issues Teaching Recipient: Patient Teaching Methods: Demonstration, Discussion Response to Teaching: Reinforcement Needed Time/GCodes Time In: 0900 Time Out: 1000 Total Billed Treatment Time: 60 Total Billed Treatment 1 visit FA 60' JOSIE HAWKINS PT Mar 10, 2021 09:53
--- NOTE | 2021-03-10 13:46 | Physical Therapy Daily Note ---
PT Daily Note-Current Subjective Patient in recliner pre tx, agrees to PT, has unrated pain in both knees. Appearance Patient in recliner post tx with nurse call, phone, tray, chair alarm on. Mental Status Patient Orientation: Person, Confused Transfers SCALE: Activities may be completed with or without assistive devices. 7-Qiuldzgrih-kzkdewh completes the activity by him/herself with no assistance from a helper. 5-Set-up or Clean-up Assistance-helper sets up or cleans up; patient completes activity. [place] assists only prior to or following the activity. 4-Supervision or Touching Assistance-helper provides verbal cues and/or touch ing/steadying and/or contact guard assistance as patient completes activity. Assistance may be provided throughout the activity or intermittently. 3-Partial/Moderate Assistance-helper does LESS THAN HALF the effort. [place] lifts, holds or supports trunk or limbs, but provides less than half the effort. 2-Substantial/Maximal Assistance-helper does MORE THAN HALF the effort. [place] lifts or holds trunk or limbs and provides more than half the effort. 3-Hkavgvzou-iqvmlg does ALL the effort. Patient does none of the effort to complete the activity. Or, the assistance of 2 or more helpers is required for the patient to complete the activity. If activity was not attempted, code reason: 7-Patient Refused. 9-Not Applicable-not attempted and the patient did not perform the activity before the current illness, exacerbation or injury. 10-Not Attempted due to Environmental Limitations-(lack of equipment, weather restraints, etc.). 88-Not Attempted due to Medical Conditions or Safety Concerns. Weight Bearing Full Weight Bearing Full Weight Bearing Exercises Seated Therapy Exercises: Ankle pumps, Hip flexion, Hamstring Curls, Hip abd/add Seated Reps: 20 LAQ alternating for 5 min Treatments LE strengthening Assessment Current Status: Poor Progress no change in mobility today, bilateral knee pain impairs progress PT Short Term Goals Short Term Goals Time Frame: Mar 04, 2021 Roll Left & Right: 6 Sit to lyin Lying to sitting on side of be: 4 Sit to stand: 4 Chair/xqm-ff-quzvu transfer: 4 Walk 10 feet: 4 Walk 50 feet with two turns: 4 PT [facility] Goals Software Architect Goals PT Software Architect Goals Time Frame: Mar 18, 2021 Roll Left & Right (QC): 6 Sit to Lying (QC): 6 Lying-Sitting on Side/Bed(QC): 6 Sit to Stand (QC): 4 (SBA) Chair/Qud-fp-Etyop Xfer(QC): 4 (SBA) Toilet Transfer (QC): 4 (SBA) Car Transfer (QC): 4 (SBA) Does the Patient Walk: Yes Walk 10 feet (QC): 4 (SBA) Walk 50ft with 2 Turns (QC): 4 (SBA) Walk 150 ft (QC): 88 Walking 10ft on Uneven Surface: 88 1 Step (curb) (QC): 88 4 Steps (QC): 88 12 Steps (QC): 88 Picking up an Object (QC): 88 Wheel 50 feet with 2 turns (QC: 5 Wheel 150 feet: 5 PT Plan Problem List Problem List: Activity Tolerance, Functional Strength, Safety, Balance, Gait, Transfer, Bed Mobility, ROM Treatment/Plan Treatment Plan: Continue Plan of Care Treatment Plan: Bed Mobility, Education, Functional Activity Katherine, Functional Strength, Group Therapy, Gait, Safety, Therapeutic Exercise, Transfers Treatment Duration: Mar 18, 2021 Frequency: At least 5 of 7 days/Wk (IRF) Estimated Hrs Per Day: 1.5 hours per day Patient and/or Family Agrees t: Yes Safety Risks/Education Patient Education: Correct Positioning, Safety Issues Teaching Recipient: Patient Teaching Methods: Demonstration, Discussion Response to Teaching: Reinforcement Needed Time/GCodes Time In: 1325 Time Out: 1340 Total Billed Treatment Time: 15 Total Billed Treatment 1 visit EX JOSIE ORTEGA PT Mar 10, 2021 13:46
[2021-03-10] MEDS: ALPRAZolam 0.25 MG (XANAX) TAB PO PRN (19:05)
[2021-03-10] MEDS: LATANOPROST 0.005% (XALATAN) OPHTH SOLN 2.5 ML OU SCH (20:23)
[2021-03-10] MEDS: AMITRIPTYLINE 25 MG (ELAVIL) TAB PO SCH (20:23)
[2021-03-10] MEDS: rOPINIRole 1 MG (REQUIP) TABLET PO SCH (20:23)
[2021-03-10] MEDS: MELATONIN 3 MG TABLET PO PRN (20:24)
[2021-03-10 20:38] VITALS: BP 109/55
[2021-03-10] MEDS ORDERED: amLODIPine 5 MG (NORVASC) TAB ONE (20:54)
[2021-03-11] MEDS: HYDROcodone/APAP 5 MG/325 MG (LORTAB) TAB PO PRN ×2 (05:50→14:49)
[2021-03-11] MEDS: KCL 20 MEQ TAB (K-DUR) PO SCH (05:51)
--- NOTE | 2021-03-11 05:52 | PM&R Progress Note ---
Subjective HPI/CC On Admission Date Seen by Provider: Mar 11, 2021 Time Seen by Provider: 12:00 Subjective/Events-last exam 03/11/2021: Patient doing pretty well Bowels have not moved for a couple of days and then had a little blood from straining Needs long-term care facility Very tearful at times 03/10/2021: Patient needs long-term care Change to oral antibiotics today Very tearful when son is not around 03/09/21: Pt doing pretty well Labs look good Chest X-ray improved Will likely transfer from IV antibiotics to oral tomorrow Overall seems to be doing pretty well but not consistent 03/08/2021: Pt doing really well Increased confusion but she is otherwise back at her baseline in my opinion Urine culture is pending, it is gram negative Meropenem and Vancomycin She is messing with her IV, she may end up pulling it out 03/07/2021: Pt doing pretty well but tearful with everything Lactinex will be given for loose stools due to antibiotics Pneumonia diagnosed without sepsis last night 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 and Vancomycin to cover for MRSA 03/06/2021: Patient doing pretty well Bowels moved yesterday Slowly able to ambulate Confusion persist 03/05/2021: Increase conversation No major issues No falls Gaining strength 03/04/2021: Patient doing really well Son who came in really help the situation Now she is communicating a walking very well Asked the son to come in more often 03/03/2021: Patient about the same Has plateaued I spoke with medical research scientist for insurance and he declined skilled care even though she has no formal plan for discharge and she will need long-term care senior care Cognitive deficit noted making it slow recovery if at all 03/02/2021: Patient doing pretty well Sleeps most of the time again [facility] at discharge Bowels move this morning 03/01/2021: Patient about the same Sleeps a lot of the time No pain is reported Discharge planning 02/28/2021: Patient doing pretty well Sleeps most of the time Had a bowel movement yesterday No major issues or concerns per RN 02/27/2021: Patient doing about the same Complains of left knee pain without injury Patient very cognitive deficient Appears to be very chronically ill 02/26/2021: Mildly hypotensive so holding blood pressure medication for systolic less than 120 Slept pretty well Having some loose bowel movements so holding laxatives Monitoring closely Currently sleeping 02/25/2021: Patient doing pretty well today Oriented x1 Expressive aphasia makes it difficult to communicate Appreciate cardiology consultation Echocardiogram was performed with bubble test Fall risk prevention Check meds and labs Review of Systems General: Fatigue Neurological: Confusion Objective Exam Vital Signs Vital Signs Date Time Temp Pulse Resp B/P (MAP) Pulse Ox O2 Delivery O2 Flow Rate FiO2 03/11/21 20:00 36.4 62 16 125/56 (79) 94 Room Air Capillary Refill : General Appearance: No Apparent Distress, WD/WN, Chronically ill HEENT: PERRL/EOMI, Normal ENT Inspection, Pharynx Normal Neck: Full Range of Motion, Normal Inspection, Non Tender, Supple, Carotid Bruit Respiratory: Chest Non Tender, Lungs Clear, Normal Breath Sounds, No Accessory Muscle Use, No Respiratory Distress Cardiovascular: Regular Rate, Rhythm, No Edema, No Gallop, No JVD, Normal Peripheral Pulses, Systolic Murmur Gastrointestinal: Normal Bowel Sounds, No Organomegaly, No Pulsatile Mass, Non Tender, Soft Back: Normal Inspection, No CVA Tenderness, No Vertebral Tenderness Extremity: Normal Capillary Refill, Normal Inspection, Normal Range of Motion, Non Tender, No Calf Tenderness, No Pedal Edema Neurologic/Psychiatric: Alert, Oriented x3, No Motor/Sensory Deficits, Normal Mood/Affect, Abnormal Gait, Aphasia, Disoriented, Motor Weakness Skin: Normal Color, Warm/Dry Lymphatic: No Adenopathy Results/Procedures Lab Patient resulted labs reviewed. FIM Transfers Therapy Code Descriptions/Definitions Functional [place] Measure: 0=Not Assessed/NA 4=Minimal Assistance 1=Total Assistance 5=Supervision or Setup 2=Maximal Assistance 6=Modified [place] 3=Moderate Assistance 7=Complete IndependenceSCALE: Activities may be completed with or without assistive devices. 2-Mwqebeojdu-jyvudxp completes the activity by him/herself with no assistance from a helper. 5-Set-up or Clean-up Assistance-helper sets up or cleans up; patient completes activity. [place] assists only prior to or following the activity. 4-Supervision or Touching Assistance-helper provides verbal cues and/or touching/steadying and/or contact guard assistance as patient completes activity. Assistance may be provided throughout the activity or intermittently. 3-Partial/Moderate Assistance-helper does LESS THAN HALF the effort. [place] lifts, holds or supports trunk or limbs, but provides less than half the effort. 2-Substantial/Maximal Assistance-helper does MORE THAN HALF the effort. [place] lifts or holds trunk or limbs and provides more than half the effort. 4-Fpdxrllwu-muyqsv does ALL the effort. Patient does none of the effort to complete the activity. Or, the assistance of 2 or more helpers is required for the patient to complete the activity. If activity was not attempted, code reason: 7-Patient Refused. 9-Not Applicable-not attempted and the patient did not perform the activity before the current illness, exacerbation or injury. 10-Not Attempted due to Environmental Limitations-(lack of equipment, weather restraints, etc.). 88-Not Attempted due to Medical Conditions or Safety Concerns. Roll Left to Right (QC): 6 Sit to Lying (QC): 5 Sit to Stand (QC): 3 Chair/Zfo-pv-Ikecf Xfer(QC): 3 Car Transfer (QC): 1 Gait Training Does the Patient Walk?: Yes Distance: 20' Walk 10 feet (QC): 4 Walk 50 ft with 2 Turns(QC): 88 Walk 150 ft (QC): 88 Walking 10ft/uneven surface-QC: 88 Gait Persons Needed: 1 Gait Assistive Device: FWW Wheelchair Training Does the Pt Use a Wheelchair?: Yes Distance: 150'x2 Wheel 50 ft with 2 turns (QC): 3 Wheel 150 ft (QC): 3 Type of Wheelchair: Manual Stair Training 1 Step (curb) (QC): 88 4 Steps (QC): 88 12 Steps (QC): 88 Balance Picking up an Object (QC): 88 ADL-Treatment Eating (QC): 5 Oral Hygiene (QC): 5 Shower/Bathe Self (QC): 4 (Supervison and sitting on BSC.) Upper Body Dressing (QC): 3 (Pt donned shirt by self then required assist to button.) Lower Body Dressing (QC): 4 (After set up pt threaded pants over feet be self then with CGA pt able to hike over hips) On/Off Footwear (QC): 5 (pt doffed donned socks by self after set up) Toileting Hygiene (QC): 3 Toilet Transfer (QC): 3 Assessment/Plan Assessment and Plan Assess & Plan/Chief Complaint Assessment: CVA Partial aphasia Receptive aphasia Hypertension Aortic stenosis Chronic atrial fibrillation Memory loss Debility History of Covid Pneumonia hospital-acquired 03/06/2021 maintained on meropenem and vancomycin Plan: Cardiology consult Inpatient rehab protocol Aggressive therapy Fall risk 02/25/2021: Fall risk prevention Increase independence in ADLs Appreciate cardiology 02/26/2021: Monitor closely Fall risk Monitor confusion 02/27/2021: Knee pain management Monitor closely Fall risk 02/28/2021: Chronic debility Sleeps most of the day 03/01/2021: Monitor closely Sleeps most of the time 03/02/2021: Needs senior care at discharge Monitor closely 03/03/2021: Insurance denied senior care admit Monitor closely 03/04/2021: Dramatically improved with son in the room Monitor closely 03/05/2021: Dramatic improvement Continue therapy 03/06/2021: Monitor closely Continue treatment 03/07/2021: Pneumonia treatment Therapy 03/08/2021: Supportive care Pneumonia treatment 03/09/21: Transition IV abx to PO tomorrow Monitor closely 03/10/2021: Supportive care Oral antibiotics Monitor closely 03/11/2021: Monitor blood pressure Fall risk (1) CVA (cerebral vascular accident) (2) Right sided weakness Status: Acute (3) Aphasia Status: Acute (4) Debility Status: Acute (5) Delirium Status: Acute MAAME LOMBARDO DO Mar 11, 2021 05:52
[2021-03-11] MEDS: RT--FLUTICASONE/SALMETEROL 232-14 (AIRDUO RespiCLICK) IH SCH ×2 (06:37→19:44)
[2021-03-11 08:10] VITALS: BP 118/56
[2021-03-11] MEDS: ROSUVASTATIN 20 MG (CRESTOR) TABLET PO SCH (08:52)
[2021-03-11] MEDS: SENNA W/DOCUSATE (SENOKOT S) TABLET PO SCH ×2 (08:53→20:16)
[2021-03-11] MEDS: DOCUSATE SODIUM 100 MG (COLACE) CAP PO SCH ×2 (08:53→20:16)
[2021-03-11] MEDS: LACTOBACILLUS ACIDOPHILUS (PROBIOTIC) CAPSULE PO SCH ×3 (08:53→17:17)
[2021-03-11] MEDS: APIXABAN 5 MG (ELIQUIS) TABLET PO SCH ×2 (08:53→20:17)
[2021-03-11] MEDS: FUROSEMIDE 40 MG (LASIX) TAB PO SCH (08:53)
[2021-03-11] MEDS: SPIRONOLACTONE 25 MG (ALDACTONE) TAB PO SCH (08:53)
[2021-03-11] MEDS: polyethylene glycoL POWDER 17 GM (MIRALAX) PACK PO SCH ×2 (08:54→20:17)
[2021-03-11] MEDS: NAPHA/PHEN (NAPHCON-A, OPCON-A) OP SOLN 15 ML BTL OS SCH ×4 (08:54→20:15)
[2021-03-11] MEDS: lisINopril 5 MG (PRINIVIL) TABLET PO SCH (08:54)
[2021-03-11] MEDS: GABAPENTIN 300 MG (NEURONTIN) CAP PO SCH ×3 (08:54→20:16)
--- NOTE | 2021-03-11 09:24 | Progress Note - Cardiology ---
Cardiology SOAP Progress Note Subjective: Up in w/c with PT No c/o CP or SOB C/O bilat knee pain - unchanged Objective: I&O/Vital Signs 03/11/21 03/11/21 06:37 08:10 Temp 36.8 Pulse 71 Resp 18 B/P (MAP) 118/56 (76) Pulse Ox 93 91 O2 Delivery Room Air Room Air Weight (Pounds): 182 Weight (Ounces): 0.6 Weight (Calculated Kilograms): 77.682139 Constitutional: well-developed, well-nourished, other (appears more alert today and answers questions in monosyllables) Respiratory: chest expansion is symmetric, chest is bilaterally symmetric, lungs clear to auscultation Cardiovascular: regular rate-rhythm, S1 and S2, systolic murmur Gastrointestional: audible bowel sounds Extremities: no lower extremity edema bilateral Neurologic/Psychiatric: other (more alert today, cannot cooperate with a neuro exam) Skin: No rash on exposed areas, No ulcerations on exposed areas Results/Procedures: Labs Microbiology 03/06/21 Urine Culture - Final, Complete Escherichia coli A/P: Assessment: UTI - management per medical services 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 Lemos of interventional radiology at [facility] Chronic a-fib documented - had been on OAC with warfarin and was transitioning to Eliquis at time of stroke per records from [facility] Valvular heart disease - Echocardiogram on 02-15-[address] Carrion at [facility]: LVEF 60%; LVH; severe LA en largement and mod RA enlargement; Mod mitral annular calcification with mild mitral valve stenosis and mild to mod MR; mod aortic valve stenosis with mod AoVR; small pericardial effusion without evidence of chamber compression or tamponade; no intracardiac thrombus seen - Echo on 02/25/21: LVEF 60-65%, mild to mod MR and TR, mod , triv AI, PASP 45- [address] - details unknown Parotid mass incidentally found at [facility] - has undergone w/u and f/u on this during this hospitalization is with Dr Compa MOSCOSO Plan: No new cardiac recs at this time Monitor labs SALLY KENNEDY Mar 11, 2021 09:24
--- NOTE | 2021-03-11 10:11 | Physical Therapy Daily Note ---
PT Daily Note-Current Subjective Pt sitting in recliner upon arrival. Pt agrees to PT. Pain Location Body Site: Knee Pain Description: Chronic Comment: Pt reports but doesn't rate pain in B knees. Mental Status Patient Orientation: Person, Place Transfers SCALE: Activities may be completed with or without assistive devices. 3-Xzmdhfkhce-jwnwfmj completes the activity by him/herself with no assistance from a helper. 5-Set-up or Clean-up Assistance-helper sets up or cleans up; patient completes activity. [place] assists only prior to or following the activity. 4-Supervision or Touching Assistance-helper provides verbal cues and/or touching/steadying and/or contact guard assistance as patient completes activity. Assistance may be provided throughout the activity or intermittently. 3-Partial/Moderate Assistance-helper does LESS THAN HALF the effort. [place] lifts, holds or supports trunk or limbs, but provides less than half the effort. 2-Substantial/Maximal Assistance-helper does MORE THAN HALF the effort. [place] lifts or holds trunk or limbs and provides more than half the effort. 5-Vthyvzera-vxewgl does ALL the effort. Patient does none of the effort to complete the activity. Or, the assistance of 2 or more helpers is required for the patient to complete the activity. If activity was not attempted, code reason: 7-Patient Refused. 9-Not Applicable-not attempted and the patient did not perform the activity before the current illness, exacerbation or injury. 10-Not Attempted due to Environmental Limitations-(lack of equipment, weather restraints, etc.). 88-Not Attempted due to Medical Conditions or Safety Concerns. Sit to Stand (QC): 3 Weight Bearing Full Weight Bearing Full Weight Bearing Gait Training Does the Patient Walk?: Yes Distance: 20' Walk 10 feet (QC): 3 Gait Persons Needed: 1 Gait Assistive Device: FWW Wheelchair Training Does the Pt Use a Wheelchair?: Yes Wheel 50 ft with 2 turns (QC): 4 Type of Wheelchair: Manual Exercises Supine Ex: Ankle pumps, Quad Set, Straight leg raise, Hip abd/add Supine Reps: 15 Seated Therapy Exercises: Ankle pumps, Long arc quads, Hip flexion, Glut set Seated Reps: 15 Treatments Pt completes Supine & Seated Ex. Pt completes SPT to [facility] and propels [facility] in yessy lway. Pt completes short amb. with WC following. Pt propels back to room and rests in recliner. All needs met, call light in hand. Assessment Current Status: Good Progress Pt still remains confused and needs VC for sequencing of task at times but improved strength. PT Short Term Goals Short Term Goals Time Frame: Mar 04, 2021 Roll Left & Right: 6 Sit to lyin Lying to sitting on side of be: 4 Sit to stand: 4 Chair/cxd-in-qgqgu transfer: 4 Walk 10 feet: 4 Walk 50 feet with two turns: 4 PT Live In Housekeeper Goals Skilled Nursing Goals PT Skilled Nursing Goals Time Frame: Mar 18, 2021 Roll Left & Right (QC): 6 Sit to Lying (QC): 6 Lying-Sitting on Side/Bed(QC): 6 Sit to Stand (QC): 4 (SBA) Chair/Esy-pg-Eqvjj Xfer(QC): 4 (SBA) Toilet Transfer (QC): 4 (SBA) Car Transfer (QC): 4 (SBA) Does the Patient Walk: Yes Walk 10 feet (QC): 4 (SBA) Walk 50ft with 2 Turns (QC): 4 (SBA) Walk 150 ft (QC): 88 Walking 10ft on Uneven Surface: 88 1 Step (curb) (QC): 88 4 Steps (QC): 88 12 Steps (QC): 88 Picking up an Object (QC): 88 Wheel 50 feet with 2 turns (QC: 5 Wheel 150 feet: 5 PT Plan Problem List Problem List: Activity Tolerance, Functional Strength, Gait, Transfer Treatment/Plan Treatment Plan: Continue Plan of Care Treatment Plan: Bed Mobility, Education, Functional Activity Katherine, Functional Strength, Group Therapy, Gait, Safety, Therapeutic Exercise, Transfers Treatment Duration: Mar 18, 2021 Frequency: At least 5 of 7 days/Wk (IRF) Estimated Hrs Per Day: 1.5 hours per day Patient and/or Family Agrees t: Yes Safety Risks/Education Patient Education: Gait Training, Transfer Techniques, Correct Positioning, Safety Issues Teaching Recipient: Patient Teaching Methods: Demonstration, Discussion Response to Teaching: Verbalize Understanding, Return Demonstration Time/GCodes Time In: 800 Time Out: 900 Total Billed Treatment Time: 60 Total Billed Treatment 1, FA x2 (30m), GT (15m) & [facility] (15m) FITO FAUSTIN BATTERY FILLER Mar 11, 2021 10:10
--- NOTE | 2021-03-11 11:09 | Occupational Ther Daily Note ---
OT Current Status-Daily Note Subjective Pt alert, agrees to tx. Pt on commode upon entry, states finished with BM. Pt states cramping in lower abdomen and pain in knee upon stance. Upon wiping, blood on paper and blood in stool. Nursing notified of findings and pt's c/o cramping. Nursing observes stools. ADL-Treatment Therapy Code Descriptions/Definitions Functional [place] Measure: 0=Not Assessed/NA 4=Minimal Assistance 1=Total Assistance 5=Supervision or Setup 2=Maximal Assistance 6=Modified [place] 3=Moderate Assistance 7=Complete IndependenceSCALE: Activities may be completed with or without assistive devices. 8-Bclibgkmfv-amfojtx completes the activity by him/herself with no assistance from a helper. 5-Set-up or Clean-up Assistance-helper sets up or cleans up; patient completes activity. [place] assists only prior to or following the activity. 4-Supervision or Touching Assistance-helper provides verbal cues and/or touching/steadying and/or contact guard assistance as patient completes activity. Assistance may be provided throughout the activity or intermittently. 3-Partial/Moderate Assistance-helper does LESS THAN HALF the effort. [place] lifts, holds or supports trunk or limbs, but provides less than half the effort. 2-Substantial/Maximal Assistance-helper does MORE THAN HALF the effort. [place] lifts or holds trunk or limbs and provides more than half the effort. 7-Skcrhzipc-sruwiz does ALL the effort. Patient does none of the effort to complete the activity. Or, the assistance of 2 or more helpers is required for the patient to complete the activity. If activity was not attempted, code reason: 7-Patient Refused. 9-Not Applicable-not attempted and the patient did not perform the activity before the current illness, exacerbation or injury. 10-Not Attempted due to Environmental Limitations-(lack of equipment, weather restraints, etc.). 88-Not Attempted due to Medical Conditions or Safety Concerns. Eating (QC): 6 Oral Hygiene (QC): 7 (States, "I will hold off on that for a bit.") Bathing Location: L Arm, R Arm, L Upper Leg, R Upper Leg, Chest, Abdomen, Buttocks, Perineal Area Shower/Bathe Self (QC): 3 (min A for bottom care and LEs.) Upper Body Dressing (QC): 5 (s/u) Lower Body Dressing (QC): 3 (mod A donning breifs over one LE and over hips in stance. Upon loose pants, pt completes all process with SBA-CGA in stance.) Toileting Hygiene (QC): 2 (max A bottom care in stance.) Toilet Transfer (QC): 4 (CGA sit to stand from commode.) Other Treatment Pt sit to stand from commode CGA. blood noted in stool/ on toilet paper. Nursing notified. Pt agrees to sponge bath. Transfers to chair, completes sponge bath/ dressing as outlined. Pt able to sit to stand and go to w/c with CGA. Pt pushed to sink, completes hand care and hair brushing, denies oral care. Pt pushed out to muñoz, mod cues for continuation of UEs/ LEs during w/c mobility. Pt requires cues for items in way/ safety. Pt in gym, sitting and completes graded clothes pins (green through black BUE doffing). Pt returns to room, transfers to chair CGA, all needs met, call light in reach, chair alarm on. Education OT Patient Education: Correct positioning, Exercise program, Modified ADL techniques, Progress toward Goal/Update tx plan, Purpose of tx/functional activities, Safety issues, Transfer techniques, W/C management Teaching Recipient: Patient Teaching Methods: Demonstration, Discussion Response to Teaching: Verbalize Understanding, Return Demonstration, Reinforcement Needed OT Short Term Goals Short Term Goals Time Frame: Mar 04, 2021 Oral hygiene: 5 Toileting hygiene: 5 OT Jail Goals Jail Goals Time Frame: Mar 18, 2021 Eating (QC): 6 Oral Hygiene (QC): 6 Toileting Hygiene (QC): 6 Shower/Bathe Self (QC): 4 Upper Body Dressing (QC): 5 Lower Body Dressing (QC): 4 On/Off Footwear (QC): 4 Additional Goals: 1-Demonstrate ADL Tasks, 2-Verbalize Understanding, 3- ImproveStrength/Katherine 1=Demonstrate adherence to instructed precautions during ADL tasks. 2=Patient will verbalize/demonstrate understanding of assistive devices/modifications for ADL. 3=Patient will improve strength/tolerance for activity to enable patient to perform ADL's. OT Education/Plan Problem List/Assessment Assessment: Decreased Activ Tolerance, Decreased Safety Aware, Decreased UE Strength, Dependent Transfers, Impaired Cognition, Impaired Coordination, Impaired Funct Balance, Impaired I ADL's, Impaired Self-Care Skills Discharge Recommendations Plan/Recommendations: Continue POC Therapy Discharge Recommendati: 24 Hour Supervision, Post Acute OT Treatment Plan/Plan of Care Treatment,Training & Education: Yes Patient would benefit from OT for education, treatment and training to promote independence in ADL's, mobility, safety and/or upper extremity function for ADL's. Plan of Care: ADL Retraining, Functional Mobility, Group Exercise/Act as Ind, UE Funct Exercise/Act Treatment Duration: Mar 18, 2021 Frequency: At least 5 of 7 days/Wk (IRF) Estimated Hrs Per Day: 1.5 hours per day Agreement: Yes Rehab Potential: Fair Time/GCodes Start Time: 10:00 Stop Time: 11:00 Total Time Billed (hr/min): 60 Billed Treatment Time 1, ADL 2 (30), EX (15), WC (15)= 60 TERRENCE HARDY OTR Mar 11, 2021 11:09
--- NOTE | 2021-03-11 11:42 | Speech Therapy Daily Note ---
Speech Daily Progress Note Subjective Date Seen by Provider: Mar 11, 2021 Time Seen by Provider: 00:30 Patient was sitting up in her recliner watching television when I entered her room. She was more alert today. Objective Patient answered orientation questions related to immediate environment at 60% with moderate cuing. Assessment Assessment Current Status: Fair Progress Treatment Plan Continue Plan of Care Speech Short Term Goals Short Term Goals Short Term Goals 1) Patient will complete memory tasks related to her daily needs at 80% or greater with minimal cuing. 2) Patient will complete safety awareness tasks related to her daily needs at 80% or greater with minimal cuing. 3) Patient will complete problem solving tasks related to her daily needs at 80% or greater with minimal cuing. Speech [place] Tender Goals Group Home Goals Patient will improve cognitive-communication abilities so that she is able to complete daily tasks with decreased assist. Speech-Plan Patient/Family Goals Patient/Family Goals: Patient's discharge location has yet to be determined based on insurance coverage. Treatment Plan Speech Therapy Treatment Plan: Continue Plan of Care Treatment Duration: Mar 16, 2021 Frequency: 4 times per week (Patient will receive skilled ST 4-5x per week) Estimated Hrs Per Day: .5 hour per day Rehab Potential: Fair Barriers to Learning: Patient's cognitive status and age Pt/Family Agrees to Plan: Yes Safety Risks/Education Teaching Recipient: Patient Teaching Methods: Demonstration, Discussion Response to Teaching: Verbalize Understanding, Return Demonstration Education Topics Provided: Continued safety in her room Time Speech Therapy Time In: 11:30 Speech Therapy Time Out: 12:00 Total Billed Time: 30 Billed Treatment Time 1, ONELIA Gibson Mar 11, 2021 11:42
--- NOTE | 2021-03-11 15:02 | Therapy Group Daily Note ---
Therapy Daily Group Note Patient Education Topic Home Safety, Exercises Exercises LE Seated Exercise, ROM, Gross Motor, UE Exercise Session Ratio (pt:therapist): 4:1 Goal of Session: Home Safety Strategies, UE/LE Strengthing Goal Met for this Session: Yes Pt Benefit of Group: Contributions to Others, Increased Functional Safety, Increased Functional Strength, Improved Cognition, Recognition of Peers, Socialization Other/Notes Patient transferred into and propelled to group therapy in the common area of rehab. Each patient introduced themselves and said where they were from and ans wered a question requiring recall and critical thinking. Each patient participated in a home safety activity involving flash cards and had to teach a couple of exercises (UE and LE) to the other patients from a card they were given, finally patients worked on UE strength with ball throw/catch. Patient then propelled back to her room [facility] wi nurse call, phone, tray, all needs met. Start Time: 13:00 Stop Time: 14:00 Total Billed Treatment Time: 60 Total Billed Treatment 1 visit JOSIE TOM PT Mar 11, 2021 15:02
[2021-03-11 20:00] VITALS: BP 125/56
[2021-03-11] MEDS: AMITRIPTYLINE 25 MG (ELAVIL) TAB PO SCH (20:16)
[2021-03-11] MEDS: LATANOPROST 0.005% (XALATAN) OPHTH SOLN 2.5 ML OU SCH (20:16)
[2021-03-11] MEDS: rOPINIRole 1 MG (REQUIP) TABLET PO SCH (20:16)
[2021-03-12] MEDS: HYDROcodone/APAP 5 MG/325 MG (LORTAB) TAB PO PRN ×4 (01:36→20:41)
[2021-03-12] MEDS: KCL 20 MEQ TAB (K-DUR) PO SCH (06:17)
[2021-03-12] MEDS: RT--FLUTICASONE/SALMETEROL 232-14 (AIRDUO RespiCLICK) IH SCH ×2 (06:51→18:47)
[2021-03-12 07:30] VITALS: BP 130/60
--- NOTE | 2021-03-12 08:43 | PM&R Progress Note ---
Subjective HPI/CC On Admission Date Seen by Provider: Mar 12, 2021 Time Seen by Provider: 12:30 Subjective/Events-last exam 03/12/2021: Patient seems to be doing pretty well today Denies any pain except for her knees Completing antibiotic for pneumonia 03/11/2021: Patient doing pretty well Bowels have not moved for a couple of days and then had a little blood from straining Needs long-term care facility Very tearful at times 03/10/2021: Patient needs long-term care Change to oral antibiotics today Very tearful when son is not around 03/09/21: Pt doing pretty well Labs look good Chest X-ray improved Will likely transfer from IV antibiotics to oral tomorrow Overall seems to be doing pretty well but not consistent 03/08/2021: Pt doing really well Increased confusion but she is otherwise back at her baseline in my opinion Urine culture is pending, it is gram negative Meropenem and Vancomycin She is messing with her IV, she may end up pulling it out 03/07/2021: Pt doing pretty well but tearful with everything Lactinex will be given for loose stools due to antibiotics Pneumonia diagnosed without sepsis last night 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 and Vancomycin to cover for MRSA 03/06/2021: Patient doing pretty well Bowels moved yesterday Slowly able to ambulate Confusion persist 03/05/2021: Increase conversation No major issues No falls Gaining strength 03/04/2021: Patient doing really well Son who came in really help the situation Now she is communicating a walking very well Asked the son to come in more often 03/03/2021: Patient about the same Has plateaued I spoke with coroner/medical examiner for insurance and he declined skilled care even though she has no formal plan for discharge and she will need long-term care halfway Cognitive deficit noted making it slow recovery if at all 03/02/2021: Patient doing pretty well Sleeps most of the time again Via [facility] at discharge Bowels move this morning 03/01/2021: Patient about the same Sleeps a lot of the time No pain is reported Discharge planning 02/28/2021: Patient doing pretty well Sleeps most of the time Had a bowel movement yesterday No major issues or concerns per RN 02/27/2021: Patient doing about the same Complains of left knee pain without injury Patient very cognitive deficient Appears to be very chronically ill 02/26/2021: Mildly hypotensive so holding blood pressure medication for systolic less than 120 Slept pretty well Having some loose bowel movements so holding laxatives Monitoring closely Currently sleeping 02/25/2021: Patient doing pretty well today Oriented x1 Expressive aphasia makes it difficult to communicate Appreciate cardiology consultation Echocardiogram was performed with bubble test Fall risk prevention Check meds and labs Review of Systems General: Fatigue, Malaise Objective Exam Vital Signs Vital Signs Date Time Temp Pulse Resp B/P (MAP) Pulse Ox O2 Delivery O2 Flow Rate FiO2 03/12/21 09:00 Room Air 03/12/21 07:30 36.8 64 18 130/60 (83) 95 Capillary Refill : General Appearance: No Apparent Distress, WD/WN, Chronically ill HEENT: PERRL/EOMI, Normal ENT Inspection, Pharynx Normal Neck: Full Range of Motion, Normal Inspection, Non Tender, Supple, Carotid Bruit Respiratory: Chest Non Tender, Lungs Clear, Normal Breath Sounds, No Accessory Muscle Use, No Respiratory Distress Cardiovascular: Regular Rate, Rhythm, No Edema, No Gallop, No JVD, Normal Peripheral Pulses, Systolic Murmur Gastrointestinal: Normal Bowel Sounds, No Organomegaly, No Pulsatile Mass, Non Tender, Soft Back: Normal Inspection, No CVA Tenderness, No Vertebral Tenderness Extremity: Normal Capillary Refill, Normal Inspection, Normal Range of Motion, Non Tender, No Calf Tenderness, No Pedal Edema Neurologic/Psychiatric: Alert, Oriented x3, No Motor/Sensory Deficits, Normal Mood/Affect, Abnormal Gait, Aphasia, Disoriented, Motor Weakness Skin: Normal Color, Warm/Dry Lymphatic: No Adenopathy Results/Procedures Lab Patient resulted labs reviewed. FIM Transfers Therapy Code Descriptions/Definitions Functional [place] Measure: 0=Not Assessed/NA 4=Minimal Assistance 1=Total Assistance 5=Supervision or Setup 2=Maximal Assistance 6=Modified [place] 3=Moderate Assistance 7=Complete IndependenceSCALE: Activities may be completed with or without assistive devices. 2-Dcaounzclq-bqhmhuy completes the activity by him/herself with no assistance from a helper. 5-Set-up or Clean-up Assistance-helper sets up or cleans up; patient completes activity. [place] assists only prior to or following the activity. 4-Supervision or Touching Assistance-helper provides verbal cues and/or touching/steadying and/or contact guard assistance as patient completes activity. Assistance may be provided throughout the activity or intermittently. 3-Partial/Moderate Assistance-helper does LESS THAN HALF the effort. [place] lifts, holds or supports trunk or limbs, but provides less than half the effort. 2-Substantial/Maximal Assistance-helper does MORE THAN HALF the effort. [place] lifts or holds trunk or limbs and provides more than half the effort. 5-Rcuyhkwwi-wslhay does ALL the effort. Patient does none of the effort to complete the activity. Or, the assistance of 2 or more helpers is required for the patient to complete the activity. If activity was not attempted, code reason: 7-Patient Refused. 9-Not Applicable-not attempted and the patient did not perform the activity before the current illness, exacerbation or injury. 10-Not Attempted due to Environmental Limitations-(lack of equipment, weather restraints, etc.). 88-Not Attempted due to Medical Conditions or Safety Concerns. Roll Left to Right (QC): 6 Sit to Lying (QC): 5 Sit to Stand (QC): 3 Chair/Ztr-um-Tphwq Xfer(QC): 3 Car Transfer (QC): 1 Gait Training Does the Patient Walk?: Yes Distance: 20' Walk 10 feet (QC): 3 Walk 50 ft with 2 Turns(QC): 88 Walk 150 ft (QC): 88 Walking 10ft/uneven surface-QC: 88 Gait Persons Needed: 1 Gait Assistive Device: FWW Wheelchair Training Does the Pt Use a Wheelchair?: Yes Distance: 150'x2 Wheel 50 ft with 2 turns (QC): 4 Wheel 150 ft (QC): 3 Type of Wheelchair: Manual Stair Training 1 Step (curb) (QC): 88 4 Steps (QC): 88 12 Steps (QC): 88 Balance Picking up an Object (QC): 88 ADL-Treatment Eating (QC): 6 Oral Hygiene (QC): 7 (States, "I will hold off on that for a bit.") Bathing Location: L Arm, R Arm, L Upper Leg, R Upper Leg, Chest, Abdomen, Buttocks, Perineal Area Shower/Bathe Self (QC): 3 (min A for bottom care and LEs.) Upper Body Dressing (QC): 5 (s/u) Lower Body Dressing (QC): 3 (mod A donning breifs over one LE and over hips in stance. Upon loose pants, pt completes all process with SBA-CGA in stance.) On/Off Footwear (QC): 5 (pt doffed donned socks by self after set up) Toileting Hygiene (QC): 2 (max A bottom care in stance.) Toilet Transfer (QC): 4 (CGA sit to stand from commode.) Assessment/Plan Assessment and Plan Assess & Plan/Chief Complaint Assessment: CVA Partial aphasia Receptive aphasia Hypertension Aortic stenosis Chronic atrial fibrillation Memory loss Debility History of Covid Pneumonia hospital-acquired 03/06/2021 maintained on meropenem and vancomycin Plan: Cardiology consult Inpatient rehab protocol Aggressive therapy Fall risk 02/25/2021: Fall risk prevention Increase independence in ADLs Appreciate cardiology 02/26/2021: Monitor closely Fall risk Monitor confusion 02/27/2021: Knee pain management Monitor closely Fall risk 02/28/2021: Chronic debility Sleeps most of the day 03/01/2021: Monitor closely Sleeps most of the time 03/02/2021: Needs halfway at discharge Monitor closely 03/03/2021: Insurance denied halfway admit Monitor closely 03/04/2021: Dramatically improved with son in the room Monitor closely 03/05/2021: Dramatic improvement Continue therapy 03/06/2021: Monitor closely Continue treatment 03/07/2021: Pneumonia treatment Therapy 03/08/2021: Supportive care Pneumonia treatment 03/09/21: Transition IV abx to PO tomorrow Monitor closely 03/10/2021: Supportive care Oral antibiotics Monitor closely 03/11/2021: Monitor blood pressure Fall risk 03/12/2021: Complete antibiotic Monitor closely Supportive care (1) CVA (cerebral vascular accident) (2) Right sided weakness Status: Acute (3) Aphasia Status: Acute (4) Debility Status: Acute (5) Delirium Status: Acute MAAME LOMBARDO DO Mar 12, 2021 08:43
[2021-03-12] MEDS: GABAPENTIN 300 MG (NEURONTIN) CAP PO SCH ×3 (08:45→20:41)
[2021-03-12] MEDS: LACTOBACILLUS ACIDOPHILUS (PROBIOTIC) CAPSULE PO SCH ×3 (08:45→17:30)
[2021-03-12] MEDS: NAPHA/PHEN (NAPHCON-A, OPCON-A) OP SOLN 15 ML BTL OS SCH ×4 (08:46→20:40)
[2021-03-12] MEDS: APIXABAN 5 MG (ELIQUIS) TABLET PO SCH ×2 (08:46→20:41)
[2021-03-12] MEDS: ROSUVASTATIN 20 MG (CRESTOR) TABLET PO SCH (08:46)
[2021-03-12] MEDS: lisINopril 5 MG (PRINIVIL) TABLET PO SCH (08:46)
[2021-03-12] MEDS: SPIRONOLACTONE 25 MG (ALDACTONE) TAB PO SCH (08:46)
[2021-03-12] MEDS: FUROSEMIDE 40 MG (LASIX) TAB PO SCH (08:46)
[2021-03-12] MEDS: polyethylene glycoL POWDER 17 GM (MIRALAX) PACK PO SCH ×2 (09:51→19:41)
[2021-03-12] MEDS: DOCUSATE SODIUM 100 MG (COLACE) CAP PO SCH ×2 (09:51→19:40)
[2021-03-12] MEDS: SENNA W/DOCUSATE (SENOKOT S) TABLET PO SCH ×2 (09:52→19:41)
--- NOTE | 2021-03-12 11:01 | Physical Therapy Daily Note ---
PT Daily Note-Current Subjective Pt agreeable. Pt unable to rate pain. Mental Status Patient Orientation: Person, Confused Transfers SCALE: Activities may be completed with or without assistive devices. 7-Oaxyqbfedg-iahatst completes the activity by him/herself with no assistance f rom a helper. 5-Set-up or Clean-up Assistance-helper sets up or cleans up; patient completes activity. [place] assists only prior to or following the activity. 4-Supervision or Touching Assistance-helper provides verbal cues and/or touching/steadying and/or contact guard assistance as patient completes activity. Assistance may be provided throughout the activity or intermittently. 3-Partial/Moderate Assistance-helper does LESS THAN HALF the effort. [place] lifts, holds or supports trunk or limbs, but provides less than half the effort. 2-Substantial/Maximal Assistance-helper does MORE THAN HALF the effort. [place] lifts or holds trunk or limbs and provides more than half the effort. 8-Uycucdfff-ldabed does ALL the effort. Patient does none of the effort to complete the activity. Or, the assistance of 2 or more helpers is required for the patient to complete the activity. If activity was not attempted, code reason: 7-Patient Refused. 9-Not Applicable-not attempted and the patient did not perform the activity before the current illness, exacerbation or injury. 10-Not Attempted due to Environmental Limitations-(lack of equipment, weather restraints, etc.). 88-Not Attempted due to Medical Conditions or Safety Concerns. Weight Bearing Full Weight Bearing Full Weight Bearing Exercises Seated Therapy Exercises: Ankle pumps, Long arc quads, Hip abd/add Seated Reps: 20 Treatments Pt amb with FWW x 15' with CGA Assessment Current Status: Good Progress Pt back to recliner with ambu alarm activated and all needs met. Call light in reach. PT Short Term Goals Short Term Goals Time Frame: Mar 04, 2021 Roll Left & Right: 6 Sit to lyin Lying to sitting on side of be: 4 Sit to stand: 4 Chair/voi-ux-zbslb transfer: 4 Walk 10 feet: 4 Walk 50 feet with two turns: 4 PT Custodial Goals Custodial Goals PT Custodial Goals Time Frame: Mar 18, 2021 Roll Left & Right (QC): 6 Sit to Lying (QC): 6 Lying-Sitting on Side/Bed(QC): 6 Sit to Stand (QC): 4 (SBA) Chair/Dmy-ks-Ndxem Xfer(QC): 4 (SBA) Toilet Transfer (QC): 4 (SBA) Car Transfer (QC): 4 (SBA) Does the Patient Walk: Yes Walk 10 feet (QC): 4 (SBA) Walk 50ft with 2 Turns (QC): 4 (SBA) Walk 150 ft (QC): 88 Walking 10ft on Uneven Surface: 88 1 Step (curb) (QC): 88 4 Steps (QC): 88 12 Steps (QC): 88 Picking up an Object (QC): 88 Wheel 50 feet with 2 turns (QC: 5 Wheel 150 feet: 5 PT Plan Treatment/Plan Treatment Plan: Continue Plan of Care Treatment Plan: Bed Mobility, Education, Functional Activity Katherine, Functional Strength, Group Therapy, Gait, Safety, Therapeutic Exercise, Transfers Treatment Duration: Mar 18, 2021 Frequency: At least 5 of 7 days/Wk (IRF) Estimated Hrs Per Day: 1.5 hours per day Patient and/or Family Agrees t: Yes Time/GCodes Time In: 845 Time Out: 900 Total Billed Treatment Time: 15 Total Billed Treatment 1, ther ex 10' gait 5' ISAAC FRANCO CPTA Mar 12, 2021 11:01
[2021-03-12] MEDS: ALPRAZolam 0.25 MG (XANAX) TAB PO PRN (15:43)
[2021-03-12] MEDS: DICLOFENAC 1% GEL 100 GM (VOLTAREN) TUBE TOP PRN (15:44)
[2021-03-12 20:00] VITALS: BP 121/62
[2021-03-12] MEDS: LATANOPROST 0.005% (XALATAN) OPHTH SOLN 2.5 ML OU SCH (20:40)
[2021-03-12] MEDS: rOPINIRole 1 MG (REQUIP) TABLET PO SCH (20:41)
[2021-03-12] MEDS: AMITRIPTYLINE 25 MG (ELAVIL) TAB PO SCH (20:41)
--- NOTE | 2021-03-13 06:00 | PM&R Progress Note ---
Subjective HPI/CC On Admission Date Seen by Provider: Mar 13, 2021 Time Seen by Provider: 12:00 Subjective/Events-last exam 03/13/2021: Patient doing pretty well Xanax does help her Daughter's phone call seem to upset her she is significantly mentally ill Mobic started 03/12/2021: Patient seems to be doing pretty well today Denies any pain except for her knees Completing antibiotic for pneumonia 03/11/2021: Patient doing pretty well Bowels have not moved for a couple of days and then had a little blood from straining Needs long-term care facility Very tearful at times 03/10/2021: Patient needs long-term care Change to oral antibiotics today Very tearful when son is not around 03/09/21: Pt doing pretty well Labs look good Chest X-ray improved Will likely transfer from IV antibiotics to oral tomorrow Overall seems to be doing pretty well but not consistent 03/08/2021: Pt doing really well Increased confusion but she is otherwise back at her baseline in my opinion Urine culture is pending, it is gram negative Meropenem and Vancomycin She is messing with her IV, she may end up pulling it out 03/07/2021: Pt doing pretty well but tearful with everything Lactinex will be given for loose stools due to antibiotics Pneumonia diagnosed without sepsis last night 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 and Vancomycin to cover for MRSA 03/06/2021: Patient doing pretty well Bowels moved yesterday Slowly able to ambulate Confusion persist 03/05/2021: Increase conversation No major issues No falls Gaining strength 03/04/2021: Patient doing really well Son who came in really help the situation Now she is communicating a walking very well Asked the son to come in more often 03/03/2021: Patient about the same Has plateaued I spoke with medical van driver for insurance and he declined skilled care even though she has no formal plan for discharge and she will need long-term care custodial Cognitive deficit noted making it slow recovery if at all 03/02/2021: Patient doing pretty well Sleeps most of the time again Via [facility] at discharge Bowels move this morning 03/01/2021: Patient about the same Sleeps a lot of the time No pain is reported Discharge planning 02/28/2021: Patient doing pretty well Sleeps most of the time Had a bowel movement yesterday No major issues or concerns per RN 02/27/2021: Patient doing about the same Complains of left knee pain without injury Patient very cognitive deficient Appears to be very chronically ill 02/26/2021: Mildly hypotensive so holding blood pressure medication for systolic less than 120 Slept pretty well Having some loose bowel movements so holding laxatives Monitoring closely Currently sleeping 02/25/2021: Patient doing pretty well today Oriented x1 Expressive aphasia makes it difficult to communicate Appreciate cardiology consultation Echocardiogram was performed with bubble test Fall risk prevention Check meds and labs Review of Systems General: Fatigue, Malaise Musculoskeletal: leg pain Objective Exam Vital Signs Vital Signs Date Time Temp Pulse Resp B/P (MAP) Pulse Ox O2 Delivery O2 Flow Rate FiO2 03/13/21 20:56 Room Air 03/13/21 20:00 36.9 66 16 106/53 (70) 96 Capillary Refill : General Appearance: No Apparent Distress, WD/WN, Chronically ill HEENT: PERRL/EOMI, Normal ENT Inspection, Pharynx Normal Neck: Full Range of Motion, Normal Inspection, Non Tender, Supple, Carotid Bruit Respiratory: Chest Non Tender, Lungs Clear, Normal Breath Sounds, No Accessory Muscle Use, No Respiratory Distress Cardiovascular: Regular Rate, Rhythm, No Edema, No Gallop, No JVD, Normal Peripheral Pulses, Systolic Murmur Gastrointestinal: Normal Bowel Sounds, No Organomegaly, No Pulsatile Mass, Non Tender, Soft Back: Normal Inspection, No CVA Tenderness, No Vertebral Tenderness Extremity: Normal Capillary Refill, Normal Inspection, Normal Range of Motion, Non Tender, No Calf Tenderness, No Pedal Edema Neurologic/Psychiatric: Alert, Oriented x3, No Motor/Sensory Deficits, Normal Mood/Affect, Abnormal Gait, Aphasia, Disoriented, Motor Weakness Skin: Normal Color, Warm/Dry Lymphatic: No Adenopathy Results/Procedures Lab Patient resulted labs reviewed. FIM Transfers Therapy Code Descriptions/Definitions Functional [place] Measure: 0=Not Assessed/NA 4=Minimal Assistance 1=Total Assistance 5=Supervision or Setup 2=Maximal Assistance 6=Modified [place] 3=Moderate Assistance 7=Complete IndependenceSCALE: Activities may be completed with or without assistive devices. 2-Nqsnyemdqo-mllkung completes the activity by him/herself with no assistance from a helper. 5-Set-up or Clean-up Assistance-helper sets up or cleans up; patient completes activity. [place] assists only prior to or following the activity. 4-Supervision or Touching Assistance-helper provides verbal cues and/or touching/steadying and/or contact guard assistance as patient completes activity. Assistance may be provided throughout the activity or intermittently. 3-Partial/Moderate Assistance-helper does LESS THAN HALF the effort. [place] lifts, holds or supports trunk or limbs, but provides less than half the effort. 2-Substantial/Maximal Assistance-helper does MORE THAN HALF the effort. [place] lifts or holds trunk or limbs and provides more than half the effort. 7-Jutnagcjo-xxzqda does ALL the effort. Patient does none of the effort to complete the activity. Or, the assistance of 2 or more helpers is required for the patient to complete the activity. If activity was not attempted, code reason: 7-Patient Refused. 9-Not Applicable-not attempted and the patient did not perform the activity before the current illness, exacerbation or injury. 10-Not Attempted due to Environmental Limitations-(lack of equipment, weather restraints, etc.). 88-Not Attempted due to Medical Conditions or Safety Concerns. Roll Left to Right (QC): 6 Sit to Lying (QC): 5 Sit to Stand (QC): 3 Chair/Cvf-gz-Xfpxg Xfer(QC): 3 Car Transfer (QC): 1 Gait Training Does the Patient Walk?: Yes Distance: 20' Walk 10 feet (QC): 3 Walk 50 ft with 2 Turns(QC): 88 Walk 150 ft (QC): 88 Walking 10ft/uneven surface-QC: 88 Gait Persons Needed: 1 Gait Assistive Device: FWW Wheelchair Training Does the Pt Use a Wheelchair?: Yes Distance: 150'x2 Wheel 50 ft with 2 turns (QC): 4 Wheel 150 ft (QC): 3 Type of Wheelchair: Manual Stair Training 1 Step (curb) (QC): 88 4 Steps (QC): 88 12 Steps (QC): 88 Balance Picking up an Object (QC): 88 ADL-Treatment Eating (QC): 6 Oral Hygiene (QC): 7 (States, "I will hold off on that for a bit.") Bathing Location: L Arm, R Arm, L Upper Leg, R Upper Leg, Chest, Abdomen, Buttocks, Perineal Area Shower/Bathe Self (QC): 3 (min A for bottom care and LEs.) Upper Body Dressing (QC): 5 (s/u) Lower Body Dressing (QC): 3 (mod A donning breifs over one LE and over hips in stance. Upon loose pants, pt completes all process with SBA-CGA in stance.) On/Off Footwear (QC): 5 (pt doffed donned socks by self after set up) Toileting Hygiene (QC): 2 (max A bottom care in stance.) Toilet Transfer (QC): 4 (CGA sit to stand from commode.) Assessment/Plan Assessment and Plan Assess & Plan/Chief Complaint Assessment: CVA Partial aphasia Receptive aphasia Hypertension Aortic stenosis Chronic atrial fibrillation Memory loss Debility History of Covid Pneumonia hospital-acquired 03/06/2021 maintained on meropenem and vancomycin Plan: Cardiology consult Inpatient rehab protocol Aggressive therapy Fall risk 02/25/2021: Fall risk prevention Increase independence in ADLs Appreciate cardiology 02/26/2021: Monitor closely Fall risk Monitor confusion 02/27/2021: Knee pain management Monitor closely Fall risk 02/28/2021: Chronic debility Sleeps most of the day 03/01/2021: Monitor closely Sleeps most of the time 03/02/2021: Needs custodial at discharge Monitor closely 03/03/2021: Insurance denied custodial admit Monitor closely 03/04/2021: Dramatically improved with son in the room Monitor closely 03/05/2021: Dramatic improvement Continue therapy 03/06/2021: Monitor closely Continue treatment 03/07/2021: Pneumonia treatment Therapy 03/08/2021: Supportive care Pneumonia treatment 03/09/21: Transition IV abx to PO tomorrow Monitor closely 03/10/2021: Supportive care Oral antibiotics Monitor closely 03/11/2021: Monitor blood pressure Fall risk 03/12/2021: Complete antibiotic Monitor closely Supportive care 03/13/2021: Monitor closely Complete antibiotics (1) CVA (cerebral vascular accident) (2) Right sided weakness Status: Acute (3) Aphasia Status: Acute (4) Debility Status: Acute (5) Delirium Status: Acute MAAME LOMBARDO DO Mar 13, 2021 06:00
[2021-03-13] MEDS: HYDROcodone/APAP 5 MG/325 MG (LORTAB) TAB PO PRN ×3 (06:38→20:43)
[2021-03-13] MEDS: KCL 20 MEQ TAB (K-DUR) PO SCH (06:38)
[2021-03-13 07:30] VITALS: BP 116/59
[2021-03-13] MEDS: FUROSEMIDE 40 MG (LASIX) TAB PO SCH (09:02)
[2021-03-13] MEDS: SPIRONOLACTONE 25 MG (ALDACTONE) TAB PO SCH (09:02)
[2021-03-13] MEDS: GABAPENTIN 300 MG (NEURONTIN) CAP PO SCH ×3 (09:02→20:42)
[2021-03-13] MEDS: ALPRAZolam 0.25 MG (XANAX) TAB PO PRN ×2 (09:02→20:42)
[2021-03-13] MEDS: APIXABAN 5 MG (ELIQUIS) TABLET PO SCH ×2 (09:02→20:42)
[2021-03-13] MEDS: LACTOBACILLUS ACIDOPHILUS (PROBIOTIC) CAPSULE PO SCH ×3 (09:02→17:40)
[2021-03-13] MEDS: ROSUVASTATIN 20 MG (CRESTOR) TABLET PO SCH (09:02)
[2021-03-13] MEDS: lisINopril 5 MG (PRINIVIL) TABLET PO SCH (09:03)
[2021-03-13] MEDS: NAPHA/PHEN (NAPHCON-A, OPCON-A) OP SOLN 15 ML BTL OS SCH ×4 (09:03→20:48)
[2021-03-13] MEDS: DOCUSATE SODIUM 100 MG (COLACE) CAP PO SCH ×2 (09:07→20:53)
[2021-03-13] MEDS: SENNA W/DOCUSATE (SENOKOT S) TABLET PO SCH ×2 (09:08→20:54)
[2021-03-13] MEDS: polyethylene glycoL POWDER 17 GM (MIRALAX) PACK PO SCH ×2 (09:08→20:50)
[2021-03-13] MEDS: RT--FLUTICASONE/SALMETEROL 232-14 (AIRDUO RespiCLICK) IH SCH ×2 (09:28→22:55)
[2021-03-13] MEDS: MELOXICAM 7.5 MG (MOBIC) TABLET PO SCH (13:37)
[2021-03-13 20:00] VITALS: BP 106/53
[2021-03-13] MEDS: rOPINIRole 1 MG (REQUIP) TABLET PO SCH (20:42)
[2021-03-13] MEDS: AMITRIPTYLINE 25 MG (ELAVIL) TAB PO SCH (20:44)
[2021-03-13] MEDS: LATANOPROST 0.005% (XALATAN) OPHTH SOLN 2.5 ML OU SCH (20:48)
[2021-03-14] MEDS ORDERED: CATHETER FLUSH 10 ML SYR IV PRN (04:45)
[2021-03-14] MEDS: CATHETER FLUSH 10 ML SYR IV SCH ×3 (06:14→21:57)
[2021-03-14] MEDS: KCL 20 MEQ TAB (K-DUR) PO SCH (06:14)
[2021-03-14] MEDS: HYDROcodone/APAP 5 MG/325 MG (LORTAB) TAB PO PRN ×3 (06:33→17:42)
[2021-03-14 06:46] LABS: BASOPHILS % (AUTO) 0 % (0-10); EOSINOPHILS # (AUTO) 1.3 10^3/uL (0.0-0.3); EOSINOPHILS % (AUTO) 20 % (0-10); HEMATOCRIT 32 % (35-52); HEMOGLOBIN 10.2 g/dL (11.5-16.0); LYMPHOCYTES # (AUTO) 1.9 10^3/uL (1.0-4.0); LYMPHOCYTES % (AUTO) 30 % (12-44); MEAN CORPUSCULAR HEMOGLOBIN 29 pg (25-34); MEAN CORPUSCULAR HGB CONC 32 g/dL (32-36); MEAN CORPUSCULAR VOLUME 92 fL (80-99); MEAN PLATELET VOLUME 10.5 fL (9.0-12.2); MONOCYTES # (AUTO) 0.5 10^3/uL (0.0-1.0); MONOCYTES % (AUTO) 8 % (0-12); NEUTROPHILS # (AUTO) 2.7 10^3/uL (1.8-7.8); NEUTROPHILS % (AUTO) 42 % (42-75); PLATELET COUNT 289 10^3/uL (130-400); WHITE BLOOD COUNT 6.4 10^3/uL (4.3-11.0)
[2021-03-14 06:55] LABS: ALBUMIN 3.2 GM/DL (3.2-4.5); POTASSIUM 4.7 MMOL/L (3.6-5.0)
[2021-03-14 06:57] LABS: CALCIUM 9.1 MG/DL (8.5-10.1)
[2021-03-14 06:58] LABS: TOTAL PROTEIN 6.1 GM/DL (6.4-8.2)
[2021-03-14 07:00] LABS: BILIRUBIN,TOTAL 0.6 MG/DL (0.1-1.0)
[2021-03-14 07:01] LABS: CREATININE SERUM 1.57 MG/DL (0.60-1.30)
[2021-03-14] MEDS: RT--FLUTICASONE/SALMETEROL 232-14 (AIRDUO RespiCLICK) IH SCH ×2 (07:11→20:35)
[2021-03-14 07:18] LABS: ELLIPT/OVALOCYTES SLIGHT; EOSINOPHILS % (MANUAL) 15 %; LYMPHOCYTES % (MANUAL) 33 %; MONOCYTES % (MANUAL) 5 %; NEUTROPHILS % (MANUAL) 47 %; POIKILOCYTOSIS SLIGHT
[2021-03-14 07:44] VITALS: BP 111/55
[2021-03-14] MEDS: LACTOBACILLUS ACIDOPHILUS (PROBIOTIC) CAPSULE PO SCH ×3 (07:47→17:42)
[2021-03-14] MEDS: lisINopril 5 MG (PRINIVIL) TABLET PO SCH (07:48)
[2021-03-14] MEDS: GABAPENTIN 300 MG (NEURONTIN) CAP PO SCH ×3 (07:48→21:55)
[2021-03-14] MEDS: SENNA W/DOCUSATE (SENOKOT S) TABLET PO SCH ×2 (07:48→21:55)
[2021-03-14] MEDS: ROSUVASTATIN 20 MG (CRESTOR) TABLET PO SCH (07:48)
[2021-03-14] MEDS: ALPRAZolam 0.25 MG (XANAX) TAB PO PRN (07:48)
[2021-03-14] MEDS: NAPHA/PHEN (NAPHCON-A, OPCON-A) OP SOLN 15 ML BTL OS SCH ×4 (07:49→21:55)
[2021-03-14] MEDS: DOCUSATE SODIUM 100 MG (COLACE) CAP PO SCH ×2 (07:49→21:56)
[2021-03-14] MEDS: SPIRONOLACTONE 25 MG (ALDACTONE) TAB PO SCH (07:49)
[2021-03-14] MEDS: APIXABAN 5 MG (ELIQUIS) TABLET PO SCH ×2 (07:49→21:55)
[2021-03-14] MEDS: FUROSEMIDE 40 MG (LASIX) TAB PO SCH (07:50)
[2021-03-14] MEDS: MELOXICAM 7.5 MG (MOBIC) TABLET PO SCH (07:50)
[2021-03-14] MEDS: polyethylene glycoL POWDER 17 GM (MIRALAX) PACK PO SCH ×2 (07:52→21:55)
--- NOTE | 2021-03-14 10:17 | PM&R Progress Note ---
Subjective HPI/CC On Admission Date Seen by Provider: Mar 14, 2021 Time Seen by Provider: 10:20 Subjective/Events-last exam 03/14/2021: Patient doing pretty well Hemoglobin 10.7 Creatinine stable at 1.57 Awaiting placement 03/13/2021: Patient doing pretty well Xanax does help her Daughter's phone call seem to upset her she is significantly mentally ill Mobic started 03/12/2021: Patient seems to be doing pretty well today Denies any pain except for her knees Completing antibiotic for pneumonia 03/11/2021: Patient doing pretty well Bowels have not moved for a couple of days and then had a little blood from straining Needs long-term care facility Very tearful at times 03/10/2021: Patient needs long-term care Change to oral antibiotics today Very tearful when son is not around 03/09/21: Pt doing pretty well Labs look good Chest X-ray improved Will likely transfer from IV antibiotics to oral tomorrow Overall seems to be doing pretty well but not consistent 03/08/2021: Pt doing really well Increased confusion but she is otherwise back at her baseline in my opinion Urine culture is pending, it is gram negative Meropenem and Vancomycin She is messing with her IV, she may end up pulling it out 03/07/2021: Pt doing pretty well but tearful with everything Lactinex will be given for loose stools due to antibiotics Pneumonia diagnosed without sepsis last night 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 and Vancomycin to cover for MRSA 03/06/2021: Patient doing pretty well Bowels moved yesterday Slowly able to ambulate Confusion persist 03/05/2021: Increase conversation No major issues No falls Gaining strength 03/04/2021: Patient doing really well Son who came in really help the situation Now she is communicating a walking very well Asked the son to come in more often 03/03/2021: Patient about the same Has plateaued I spoke with medical scientist for insurance and he declined skilled care even though she has no formal plan for discharge and she will need long-term care usp Cognitive deficit noted making it slow recovery if at all 03/02/2021: Patient doing pretty well Sleeps most of the time again [facility] at discharge Bowels move this morning 03/01/2021: Patient about the same Sleeps a lot of the time No pain is reported Discharge planning 02/28/2021: Patient doing pretty well Sleeps most of the time Had a bowel movement yesterday No major issues or concerns per RN 02/27/2021: Patient doing about the same Complains of left knee pain without injury Patient very cognitive deficient Appears to be very chronically ill 02/26/2021: Mildly hypotensive so holding blood pressure medication for systolic less than 120 Slept pretty well Having some loose bowel movements so holding laxatives Monitoring closely Currently sleeping 02/25/2021: Patient doing pretty well today Oriented x1 Expressive aphasia makes it difficult to communicate Appreciate cardiology consultation Echocardiogram was performed with bubble test Fall risk prevention Check meds and labs Review of Systems General: Fatigue, Malaise Neurological: Confusion Objective Exam Vital Signs Vital Signs Date Time Temp Pulse Resp B/P (MAP) Pulse Ox O2 Delivery O2 Flow Rate FiO2 03/14/21 20:35 97 Room Air 03/14/21 20:00 36.8 64 14 102/55 (71) Capillary Refill : General Appearance: No Apparent Distress, WD/WN, Chronically ill HEENT: PERRL/EOMI, Normal ENT Inspection, Pharynx Normal Neck: Full Range of Motion, Normal Inspection, Non Tender, Supple, Carotid Bruit Respiratory: Chest Non Tender, Lungs Clear, Normal Breath Sounds, No Accessory Muscle Use, No Respiratory Distress Cardiovascular: Regular Rate, Rhythm, No Edema, No Gallop, No JVD, Normal Peripheral Pulses, Systolic Murmur Gastrointestinal: Normal Bowel Sounds, No Organomegaly, No Pulsatile Mass, Non Tender, Soft Back: Normal Inspection, No CVA Tenderness, No Vertebral Tenderness Extremity: Normal Capillary Refill, Normal Inspection, Normal Range of Motion, Non Tender, No Calf Tenderness, No Pedal Edema Neurologic/Psychiatric: Alert, Oriented x3, No Motor/Sensory Deficits, Normal Mood/Affect, Abnormal Gait, Aphasia, Disoriented, Motor Weakness Skin: Normal Color, Warm/Dry Lymphatic: No Adenopathy Results/Procedures Lab Laboratory Tests 03/14/21 06:35 Patient resulted labs reviewed. FIM Transfers Therapy Code Descriptions/Definitions Functional [place] Measure: 0=Not Assessed/NA 4=Minimal Assistance 1=Total Assistance 5=Supervision or Setup 2=Maximal Assistance 6=Modified [place] 3=Moderate Assistance 7=Complete IndependenceSCALE: Activities may be completed with or without assistive devices. 6-Xgqdypeguv-qkawmnt completes the activity by him/herself with no assistance from a helper. 5-Set-up or Clean-up Assistance-helper sets up or cleans up; patient completes activity. [place] assists only prior to or following the activity. 4-Supervision or Touching Assistance-helper provides verbal cues and/or touching/steadying and/or contact guard assistance as patient completes activity. Assistance may be provided throughout the activity or intermittently. 3-Partial/Moderate Assistance-helper does LESS THAN HALF the effort. [place] lifts, holds or supports trunk or limbs, but provides less than half the effort. 2-Substantial/Maximal Assistance-helper does MORE THAN HALF the effort. [place] lifts or holds trunk or limbs and provides more than half the effort. 0-Omhrqpsqd-qvbzbx does ALL the effort. Patient does none of the effort to complete the activity. Or, the assistance of 2 or more helpers is required for the patient to complete the activity. If activity was not attempted, code reason: 7-Patient Refused. 9-Not Applicable-not attempted and the patient did not perform the activity before the current illness, exacerbation or injury. 10-Not Attempted due to Environmental Limitations-(lack of equipment, weather restraints, etc.). 88-Not Attempted due to Medical Conditions or Safety Concerns. Roll Left to Right (QC): 6 Sit to Lying (QC): 5 Sit to Stand (QC): 3 Chair/Fjk-ji-Ttuhs Xfer(QC): 3 Car Transfer (QC): 1 Gait Training Does the Patient Walk?: Yes Distance: 20' Walk 10 feet (QC): 3 Walk 50 ft with 2 Turns(QC): 88 Walk 150 ft (QC): 88 Walking 10ft/uneven surface-QC: 88 Gait Persons Needed: 1 Gait Assistive Device: FWW Wheelchair Training Does the Pt Use a Wheelchair?: Yes Distance: 150'x2 Wheel 50 ft with 2 turns (QC): 4 Wheel 150 ft (QC): 3 Type of Wheelchair: Manual Stair Training 1 Step (curb) (QC): 88 4 Steps (QC): 88 12 Steps (QC): 88 Balance Picking up an Object (QC): 88 ADL-Treatment Eating (QC): 6 Oral Hygiene (QC): 7 (States, "I will hold off on that for a bit.") Bathing Location: L Arm, R Arm, L Upper Leg, R Upper Leg, Chest, Abdomen, Buttocks, Perineal Area Shower/Bathe Self (QC): 3 (min A for bottom care and LEs.) Upper Body Dressing (QC): 5 (s/u) Lower Body Dressing (QC): 3 (mod A donning breifs over one LE and over hips in stance. Upon loose pants, pt completes all process with SBA-CGA in stance.) On/Off Footwear (QC): 5 (pt doffed donned socks by self after set up) Toileting Hygiene (QC): 2 (max A bottom care in stance.) Toilet Transfer (QC): 4 (CGA sit to stand from commode.) Assessment/Plan Assessment and Plan Assess & Plan/Chief Complaint Assessment: CVA Partial aphasia Receptive aphasia Hypertension Aortic stenosis Chronic atrial fibrillation Memory loss Debility History of Covid Pneumonia hospital-acquired 03/06/2021 maintained on meropenem and vancomycin Plan: Cardiology consult Inpatient rehab protocol Aggressive therapy Fall risk 02/25/2021: Fall risk prevention Increase independence in ADLs Appreciate cardiology 02/26/2021: Monitor closely Fall risk Monitor confusion 02/27/2021: Knee pain management Monitor closely Fall risk 02/28/2021: Chronic debility Sleeps most of the day 03/01/2021: Monitor closely Sleeps most of the time 03/02/2021: Needs usp at discharge Monitor closely 03/03/2021: Insurance denied usp admit Monitor closely 03/04/2021: Dramatically improved with son in the room Monitor closely 03/05/2021: Dramatic improvement Continue therapy 03/06/2021: Monitor closely Continue treatment 03/07/2021: Pneumonia treatment Therapy 03/08/2021: Supportive care Pneumonia treatment 03/09/21: Transition IV abx to PO tomorrow Monitor closely 03/10/2021: Supportive care Oral antibiotics Monitor closely 03/11/2021: Monitor blood pressure Fall risk 03/12/2021: Complete antibiotic Monitor closely Supportive care 03/13/2021: Monitor closely Complete antibiotics 03/14/2021: Mobic for arthritis Monitor closely (1) CVA (cerebral vascular accident) (2) Right sided weakness Status: Acute (3) Aphasia Status: Acute (4) Debility Status: Acute (5) Delirium Status: Acute MAAME LOMBARDO DO Mar 14, 2021 10:17
[2021-03-14] MEDS ORDERED: CARV3.122 PO (10:20)
[2021-03-14] MEDS ORDERED: NPPH15OP OS (10:20)
[2021-03-14] MEDS ORDERED: ONDA4TAB11 PO (10:20)
[2021-03-14] MEDS ORDERED: ALPR.25T PO (10:20)
[2021-03-14] MEDS ORDERED: TRM50T PO (10:20)
[2021-03-14] MEDS ORDERED: LISI-729 PO (10:20)
[2021-03-14] MEDS ORDERED: SENN1TAB76 PO (10:20)
[2021-03-14] MEDS ORDERED: ACHD5005 PO (10:20)
[2021-03-14] MEDS ORDERED: SPIR25TA5 PO (10:20)
--- NOTE | 2021-03-14 10:21 | Discharge Inst-Skilled Nursing ---
Discharge Inst-Skilled NF Reconcile Patient Problems Problems Reviewed?: Yes Patient Instructions Patient Problems: CVA Goal: [place] Consult/Follow Up/Orders Follow Up Appt.: PCP 1 week Skilled NF Admit to: Certification (SNF) I certify that SNF services are required to be given on an inpatient basis because of the above named patient's need for nursing home care on a continuing basis for the conditions(s) for which he/she was receiving inpatient hospital services prior to his/her transfer to the SNF. Snf Facility Order: Nursing Services, Buying Agent-Evaluate & Treat, Physical Therapy-Evaluate & Treat Oxygen Delivery Method: Room Air Discharge Diet: No Restrictions New & Resume Previous Orders New Medications: ALPRAZolam (Xanax Tablet) 0.25 Mg Tab 0.25 MG PO Q8H PRN for ANXIETY, #30 TAB Carvedilol (Carvedilol) 3.125 Mg Tablet 3.125 MG PO BID for 365 Days, TAB Hydrocodone Bit/Acetaminophen (HYDROcodone/APAP 5 MG/325 MG TAB) 1 Tab Tab 1 EA PO Q6HR PRN for PAIN-MODERATE (5-7), #15 TAB Lisinopril (Lisinopril) 5 Mg Tablet 2.5 MG PO DAILY for 365 Days, TAB Naphazoline/Pheniramine (Naphcon-A Eye Drops) 15 Ml Soln 0 ML OS QID for 365 Days, EA Ondansetron (Ondansetron Odt) 4 Mg Tab.rapdis 4 MG PO Q6H PRN for NAUSEA/VOMITING-1ST LINE for 30 Days, TAB Sennosides/Docusate Sodium (Stool Softener-Laxative Tablet) 1 Each Tablet 1 EA PO BID for 30 Days, TAB Spironolactone (Spironolactone) 25 Mg Tablet 12.5 MG PO DAILY@0800 for 365 Days, TAB Continued Medications: Albuterol Sulfate (Proair Hfa) 1 Puff Puff 4 PUFF IH Q8H PRN for SHORTNESS OF BREATH, PUFF Amitriptyline HCl (Amitriptyline HCl) 25 Mg Tablet 25 MG PO HS, TAB Apixaban (Eliquis) 5 Mg Tablet 5 MG PO BID, TAB Citalopram Hydrobromide (Citalopram HBr) 10 Mg Tablet 10 MG PO DAILY, TAB Fluticasone/Vilanterol (Breo Ellipta 200-25 Mcg INH) 1 Each Blst.w.dev 1 PUFF IH DAILY Furosemide (Furosemide) 40 Mg Tablet 60 MG PO DAILY, TAB TAKES 1 & (40MG) TABS Gabapentin (Neurontin) 300 Mg Capsule 300 MG PO TID, CAP Latanoprost (Xalatan) 2.5 Ml Drops 1 DROP OU HS, DROP Meloxicam (Mobic) 7.5 Mg Tablet 7.5 MG PO DAILY, TAB Potassium Chloride (Potassium Chloride) 20 Meq Tablet.er 20 MEQ PO DAILY, TAB Pravastatin Sodium (Pravastatin Sodium) 10 Mg Tablet 10 MG PO HS, TAB Ropinirole HCl (Ropinirole HCl) 1 Mg Tablet 1 MG PO HS, TAB Tramadol HCl (Tramadol HCl) 50 Mg Tablet 50 MG PO Q12H PRN for PAIN-MODERATE (5-7), #30 TAB (This prescription has been renewed) Discontinued Medications: Atenolol (Atenolol) 50 Mg Tablet 50 MG PO BID, TAB Verapamil HCl (Verapamil ER) 240 Mg Tablet.er 240 MG PO DAILY, TAB Audelia Chatman Mar 14, 2021 10:21 AUDELIA CHATMAN DO Mar 14, 2021 10:21
--- NOTE | 2021-03-14 11:43 | Occupational Ther Daily Note ---
OT Current Status-Daily Note Subjective Pt seen in room, up in recliner, agreeable to OT. Pain not rated but with obvious discomfort with standing Appearance Initially very sleepy but did awaken. Slowed responses ADL-Treatment P agreeable to ADLs. All ADLs took longer than normal time and she had some pers everation with washing movements and brushing teeth. Sponge bath completed with min assist but with cues, help wringing out wash cloth. Washed face, chest, arms, abdomen, upper legs, monet and Bottom (in sitting). Unable to wash lower legs and feet. Donned shirt with setup but required two person assist for pants (Sandra HEWITT). She could get them over one foot but not both, pull them up to thighs but needed two people to stand an pull up over hips. Dependant with slipper socks. TEDs applied. Brushed teeth with setup. Per nursing, she required two people to transfer to toilet to day and two people for clothing management, Mod I for feeding, per report. Pt left up in recliner, all needs met. Therapy Code Descriptions/Definitions Functional [place] Measure: 0=Not Assessed/NA 4=Minimal Assistance 1=Total Assistance 5=Supervision or Setup 2=Maximal Assistance 6=Modified [place] 3=Moderate Assistance 7=Complete IndependenceSCALE: Activities may be completed with or without assistive devices. 3-Lplmwgoqix-bhngagq completes the activity by him/herself with no assistance from a helper. 5-Set-up or Clean-up Assistance-helper sets up or cleans up; patient completes a ctivity. [place] assists only prior to or following the activity. 4-Supervision or Touching Assistance-helper provides verbal cues and/or touching/steadying and/or contact guard assistance as patient completes activity. Assistance may be provided throughout the activity or intermittently. 3-Partial/Moderate Assistance-helper does LESS THAN HALF the effort. [place] lifts, holds or supports trunk or limbs, but provides less than half the effort. 2-Substantial/Maximal Assistance-helper does MORE THAN HALF the effort. [place] lifts or holds trunk or limbs and provides more than half the effort. 5-Kryriqgtv-kuzyev does ALL the effort. Patient does none of the effort to complete the activity. Or, the assistance of 2 or more helpers is required for the patient to complete the activity. If activity was not attempted, code reason: 7-Patient Refused. 9-Not Applicable-not attempted and the patient did not perform the activity before the current illness, exacerbation or injury. 10-Not Attempted due to Environmental Limitations-(lack of equipment, weather restraints, etc.). 88-Not Attempted due to Medical Conditions or Safety Concerns. Eating (QC): 6 Oral Hygiene (QC): 5 Bathing Location: L Arm, R Arm, L Upper Leg, R Upper Leg, Chest, Abdomen, Buttocks, Perineal Area Shower/Bathe Self (QC): 3 Upper Body Dressing (QC): 5 Lower Body Dressing (QC): 1 (2 people) On/Off Footwear: 2 (Able to lift feet to help) Toileting Hygiene (QC): 1 (2 people) Toilet Transfer (QC): 1 (2 people) Education OT Patient Education: Modified ADL techniques, Progress toward Goal/Update tx plan, Purpose of tx/functional activities, Transfer techniques Teaching Recipient: Patient Teaching Methods: Demonstration, Discussion Response to Teaching: Verbalize Understanding, Return Demonstration, Reinforcement Needed OT Short Term Goals Short Term Goals Time Frame: Mar 04, 2021 Oral hygiene: 5 Toileting hygiene: 5 OT Fdc Goals Fdc Goals Time Frame: Mar 18, 2021 Eating (QC): 6 Oral Hygiene (QC): 6 Toileting Hygiene (QC): 6 Shower/Bathe Self (QC): 4 Upper Body Dressing (QC): 5 Lower Body Dressing (QC): 4 On/Off Footwear (QC): 4 Additional Goals: 1-Demonstrate ADL Tasks, 2-Verbalize Understanding, 3- ImproveStrength/Katherine 1=Demonstrate adherence to instructed precautions during ADL tasks. 2=Patient will verbalize/demonstrate understanding of assistive devices/modifications for ADL. 3=Patient will improve strength/tolerance for activity to enable patient to perform ADL's. OT Education/Plan Discharge Recommendations Plan/Recommendations: Continue POC Treatment Plan/Plan of Care Patient would benefit from OT for education, treatment and training to promote independence in ADL's, mobility, safety and/or upper extremity function for ADL's. Plan of Care: ADL Retraining, Functional Mobility, Group Exercise/Act as Ind, UE Funct Exercise/Act Treatment Duration: Mar 18, 2021 Frequency: At least 5 of 7 days/Wk (IRF) Estimated Hrs Per Day: 1.5 hours per day Agreement: Yes Rehab Potential: Fair Time/GCodes Start Time: 10:00 Stop Time: 11:00 Total Time Billed (hr/min): 60 Billed Treatment Time visit, 60 minutes ADL JOSIE CHAVEZ OT Mar 14, 2021 11:43
--- NOTE | 2021-03-14 12:02 | Physical Therapy Daily Note ---
PT Daily Note-Current Subjective Pt complains of knee pain, B. Unable to rate verbally. Pain Numeric Pain Scale: 8 (FLACC; rubbing and moaning. ) Location: Right, Left Location Body Site: Knee Comment: FLACC Mental Status Patient Orientation: Person, Confused Transfers SCALE: Activities may be completed with or without assistive devices. 9-[place]j-aoun[place]z completes the activity by him/herself with no assistance from a helper. 5-Set-up or Clean-up Assistance-helper sets up or cleans up; patient completes activity. [place] assists only prior to or following the activity. 4-Supervision or Touching Assistance-helper provides verbal cues and/or touching/steadying and/or contact guard assistance as patient completes activity. Assistance may be provided throughout the activity or intermittently. 3-Partial/Moderate Assistance-helper does LESS THAN HALF the effort. [place] lifts, holds or supports trunk or limbs, but provides less than half the effort. 2-Substantial/Maximal Assistance-helper does MORE THAN HALF the effort. [place] lifts or holds trunk or limbs and provides more than half the effort. 3-Uoyryqyds-lpezzh does ALL the effort. Patient does none of the effort to complete the activity. Or, the assistance of 2 or more helpers is required for the patient to complete the activity. If activity was not attempted, code reason: 7-Patient Refused. 9-Not Applicable-not attempted and the patient did not perform the activity before the current illness, exacerbation or injury. 10-Not Attempted due to Environmental Limitations-(lack of equipment, weather restraints, etc.). 88-Not Attempted due to Medical Conditions or Safety Concerns. Sit to Stand (QC): 2 Chair/Vxe-sp-Hblwp Xfer(QC): 2 Sit to stand multiple reps lift recliner slightly elevated; assist varied from min to max assist with heavy cues for sequencing; pt sits typically with poor control during descent; audible crepitus noted this date. SPT x 1 with FWW with mod assist and then again with max assist, dance style. Retropulsive at times in standing, able to right herself with cues and assist 50% of the time. Weight Bearing Full Weight Bearing Full Weight Bearing Gait Training Attempted to ambulate this date, but pt unable to due to noted knee pain and inability to initiate forward gait. Wheelchair Training Wheel 50 ft with 2 turns (QC): 4 (very slow) Exercises Seated Therapy Exercises: Ankle pumps, Long arc quads, Hip flexion Seated Reps: 15 (Very slow to complete with constant cues to stay on task. ) Treatments Functional transfers with attempts to ambulate that were unsuccessful. WC mobility and LE ther ex. Assessment Current Status: Fair Progress Poor tolerance to therapy this date and limited by knee pain; medication given during treatment session, but did not affect her pain to assist in her ability to participation. Difficulty expressing her self and difficulty following cues or staying on task. Cooperative and does not resist. Very slow with all tasks and needs cues. Pt in recliner with needs met and chair alarm activated post treatment. PT Short Term Goals Short Term Goals Time Frame: Mar 04, 2021 Roll Left & Right: 6 Sit to lyin Lying to sitting on side of be: 4 Sit to stand: 4 Chair/evj-at-hzzcm transfer: 4 Walk 10 feet: 4 Walk 50 feet with two turns: 4 PT Skilled Nursing Goals [place]ling [place] Grader Goals PT Bowling [place] Grader Goals Time Frame: Mar 18, 2021 Roll Left & Right (QC): 6 Sit to Lying (QC): 6 Lying-Sitting on Side/Bed(QC): 6 Sit to Stand (QC): 4 (SBA) Chair/Lrn-kz-Ijsnr Xfer(QC): 4 (SBA) Toilet Transfer (QC): 4 (SBA) Car Transfer (QC): 4 (SBA) Does the Patient Walk: Yes Walk 10 feet (QC): 4 (SBA) Walk 50ft with 2 Turns (QC): 4 (SBA) Walk 150 ft (QC): 88 Walking 10ft on Uneven Surface: 88 1 Step (curb) (QC): 88 4 Steps (QC): 88 12 Steps (QC): 88 Picking up an Object (QC): 88 Wheel 50 feet with 2 turns (QC: 5 Wheel 150 feet: 5 PT Plan Problem List Problem List: Activity Tolerance, Functional Strength, Safety, Balance, Gait, Transfer, Bed Mobility Treatment/Plan Treatment Plan: Continue Plan of Care Treatment Plan: Bed Mobility, Education, Functional Activity Katherine, Functional Strength, Group Therapy, Gait, Safety, Therapeutic Exercise, Transfers Treatment Duration: Mar 18, 2021 Frequency: At least 5 of 7 days/Wk (IRF) Estimated Hrs Per Day: 1.5 hours per day Patient and/or Family Agrees t: Yes Safety Risks/Education Patient Education: Safety Issues Teaching Recipient: Patient Teaching Methods: Discussion Response to Teaching: Reinforcement Needed Time/GCodes Time In: 1100 Time Out: 1200 Total Billed Treatment Time: 60 Total Billed Treatment visit FA 30 WC 15 EX 15 RUPINDER SPARKS PT Mar 14, 2021 12:02
--- NOTE | 2021-03-14 14:20 | Therapy Group Daily Note ---
Therapy Daily Group Note Patient Education Topic Home Safety, Fall Prevention, Exercises Exercises LE Seated Exercise, UE Exercise Session Ratio (pt:therapist): 3:1 Goal of Session: Education on ARU Expectations, Home Safety Strategies, UE/LE Strengthing, Other (list) (fall prevention strategies) Goal Met for this Session: Yes Pt Benefit of Group: Contributions to Others, F/U Use of Strategies @Home, Increased Functional Safety, Increased Functional Strength, Improved Cognition, Recognition of Peers, Socialization Other/Notes Using w/c was transported to OT/PT group at [facility]. Group consisted of introductions(name, place born, favorite holiday), socialization, B UE/LE exercises and education on home safety and fall prevention. Pt introduced self appropriately and actively listened to peers, with assistance from staff due to continually falling asleep, prompting staff to awaken pt. Pt able to complete B UE/LE seated exercises with verbal cue and demonstration for correct technique. Pt acknowledged understanding of educational topics. After session, pt lying in bed with call light/phone in reach. All needs met in room. Start Time: 13:00 Stop Time: 14:00 Total Billed Treatment Time: 60 Total Billed Treatment 1, GRP YANELI JONES OT Mar 14, 2021 14:20
[2021-03-14 20:00] VITALS: BP 102/55
[2021-03-14] MEDS: LATANOPROST 0.005% (XALATAN) OPHTH SOLN 2.5 ML OU SCH (21:54)
[2021-03-14] MEDS: AMITRIPTYLINE 25 MG (ELAVIL) TAB PO SCH (21:56)
[2021-03-14] MEDS: rOPINIRole 1 MG (REQUIP) TABLET PO SCH (21:56)
[2021-03-15] MEDS: HYDROcodone/APAP 5 MG/325 MG (LORTAB) TAB PO PRN ×3 (00:23→12:50)
[2021-03-15] MEDS: CATHETER FLUSH 10 ML SYR IV SCH (06:49)
[2021-03-15] MEDS: KCL 20 MEQ TAB (K-DUR) PO SCH (06:49)
[2021-03-15] MEDS: RT--FLUTICASONE/SALMETEROL 232-14 (AIRDUO RespiCLICK) IH SCH (07:05)
[2021-03-15 07:56] VITALS: BP 130/60
[2021-03-15] MEDS: LACTOBACILLUS ACIDOPHILUS (PROBIOTIC) CAPSULE PO SCH ×2 (08:42→12:50)
[2021-03-15] MEDS: FUROSEMIDE 40 MG (LASIX) TAB PO SCH (08:42)
[2021-03-15] MEDS: GABAPENTIN 300 MG (NEURONTIN) CAP PO SCH ×2 (08:42→12:50)
[2021-03-15] MEDS: SPIRONOLACTONE 25 MG (ALDACTONE) TAB PO SCH (08:42)
[2021-03-15] MEDS: lisINopril 5 MG (PRINIVIL) TABLET PO SCH (08:42)
[2021-03-15] MEDS: APIXABAN 5 MG (ELIQUIS) TABLET PO SCH (08:42)
[2021-03-15] MEDS: MELOXICAM 7.5 MG (MOBIC) TABLET PO SCH ×2 (08:42→09:00)
[2021-03-15] MEDS: ROSUVASTATIN 20 MG (CRESTOR) TABLET PO SCH (08:42)
[2021-03-15] MEDS: NAPHA/PHEN (NAPHCON-A, OPCON-A) OP SOLN 15 ML BTL OS SCH (08:43)
[2021-03-15] MEDS: DOCUSATE SODIUM 100 MG (COLACE) CAP PO SCH (09:00)
[2021-03-15] MEDS: SENNA W/DOCUSATE (SENOKOT S) TABLET PO SCH (09:00)
[2021-03-15] MEDS: polyethylene glycoL POWDER 17 GM (MIRALAX) PACK PO SCH (09:00)
--- NOTE | 2021-03-15 09:36 | D/C HH Face to Face Order ---
D/C Face to Face Orders Reconcile Patient Problems Problems Reviewed?: Yes Instructions for Patient Via [facility], Patient Instructions/FollowUp: PCP 1 week Physician to follow Patient: PCP Discharge Diet for Home: No Restrictions Patient Problems: CVA Patient Data-Allergies,Ht & Wt Patient Allergies: Coded Allergies: doxycycline (Unverified Allergy, Mild, 11/26/17) Height (Feet): 5 Height (Inches): 4.00 Weight (Pounds): 182 Weight (Ounces): 0.6 Home Health Need/Face to Face Date of Face to Face: Mar 15, 2021 Clinical Findings: Generalized weakness and fatigue, Instability, Muscle weakness, Unsteady gait I have seen Pt [id number]: Yes Discharged To: Home Diagnosis/Conditions: CVA Patient is Homebound due to: CognItive deficits, Josie fall risk due to instabilty, Muscle weakness Homebound Status Due to the above stated illness, injury or surgical procedure (medical condition or diagnosis) and associated clinical findings, the patient is homebound because of his/her inability to leave home except with aid of a supportive device and/or person AND leaving the home requires a considerable and taxing effort or is medically contraindicated. Pt req the following assistanc: [facility] Nursing Orders Home Health Services Order: Nursing Services, [facility]-Evaluate & Treat, Physical Therapy-Evaluate & Treat, Speech Language-Evaluate & Treat Home Health Infusion Therapy Line Start Date: Mar 08, 2021 Certify Stmt I certify that this patient is under my care and that I, a nurse practitioner or a physician; a assistant professor working with me, had a face to face encounter that - meets the physician face to face encounter requirements with this patient as dated. MAAME LOMBARDO DO Mar 15, 2021 09:36
--- NOTE | 2021-03-15 09:37 | Discharge Summary ---
Diagnosis/Chief Complaint Date of Admission Feb 24, 2021 at 16:39 Date of Discharge Discharge Date: Mar 14, 2021 Discharge Diagnosis Assessment: CVA Partial aphasia Receptive aphasia Hypertension Aortic stenosis Chronic atrial fibrillation Memory loss Debility History of Covid Pneumonia hospital-acquired 03/06/2021 maintained on meropenem and vancomycin Plan: Cardiology consult Inpatient rehab protocol Aggressive therapy Fall risk 02/25/2021: Fall risk prevention Increase independence in ADLs Appreciate cardiology 02/26/2021: Monitor closely Fall risk Monitor confusion 02/27/2021: Knee pain management Monitor closely Fall risk 02/28/2021: Chronic debility Sleeps most of the day 03/01/2021: Monitor closely Sleeps most of the time 03/02/2021: Needs retirement at discharge Monitor closely 03/03/2021: Insurance denied retirement admit Monitor closely 03/04/2021: Dramatically improved with son in the room Monitor closely 03/05/2021: Dramatic improvement Continue therapy 03/06/2021: Monitor closely Continue treatment 03/07/2021: Pneumonia treatment Therapy 03/08/2021: Supportive care Pneumonia treatment 03/09/21: Transition IV abx to PO tomorrow Monitor closely 03/10/2021: Supportive care Oral antibiotics Monitor closely 03/11/2021: Monitor blood pressure Fall risk 03/12/2021: Complete antibiotic Monitor closely Supportive care 03/13/2021: Monitor closely Complete antibiotics 03/14/2021: Mobic for arthritis Monitor closely (1) CVA (cerebral vascular accident) (2) Right sided weakness Status: Acute (3) Aphasia Status: Acute (4) Debility Status: Acute (5) Delirium Status: Acute Discharge Summary Discharge Physical Examination Allergies: Coded Allergies: doxycycline (Unverified Allergy, Mild, 11/26/17) Vitals & I&Os Vital Signs Date Time Temp Pulse Resp B/P (MAP) Pulse Ox O2 Delivery O2 Flow Rate FiO2 03/15/21 13:50 36.6 60 14 130/60 97 Room Air General Appearance: Alert, Cooperative Respiratory: Clear to Auscultation Psych/Mental Status: Mood NL Hospital Course Was the Problem List Reviewed?: Yes Patient had an uneventful hospital course although lengthy after suffering a stroke and having significant cognitive difficulties. Patient was able to regain some function with ambulation and ADLs but required a lot of cues and a ssistance. She did have a fever diagnosed with pneumonia completed broad- spectrum antibiotics transition to Levaquin. Bowel function returned back to normal. Cardiology was consulted and modified medication. She was found to be ready for discharge with her son at home providing 24/ supervision since her insurance did not approve long-term skilled care. Labs (last 24 hrs) Laboratory Tests 02/24/21 16:39: Lab Scanned Report Referred Lab Report 02/25/21 05:05: White Blood Count 9.4, Red Blood Count 4.28, Hemoglobin 12.4, Hematocrit 39, Mean Corpuscular Volume 91, Mean Corpuscular Hemoglobin 29, Mean Corpuscular Hemoglobin Concent 32, Red Cell Distribution Width 16.6H, Platelet Count 284, Mean Platelet Volume 12.0, Immature Granulocyte % (Auto) 0, Neutrophils (%) (Auto) 52, Lymphocytes (%) (Auto) 27, Monocytes (%) (Auto) 7, Eosinophils (%) (Auto) 13H, Basophils (%) (Auto) 0, Neutrophils # (Auto) 4.9, Lymphocytes # (Auto) 2.5, Monocytes # (Auto) 0.7, Eosinophils # (Auto) 1.3H, Basophils # (Auto) 0.0, Immature Granulocyte # (Auto) 0.0, Sodium Level 141, Potassium Level 4.3, Chloride Level 105, Carbon Dioxide Level 25, Anion Gap 11, Blood Urea Nitrogen 29H, Creatinine 0.91, Estimat Glomerular Filtration Rate 60, BUN/Creatinine Ratio 32, Glucose Level 103, Calcium Level 9.5, Corrected Calcium 9.9, Total Bilirubin 1.9H, Aspartate Amino Transf (AST/SGOT) 29, Alanine Aminotransferase (ALT/SGPT) 21, Alkaline Phosphatase 70, Total Protein 6.1L, Albumin 3.5, Smear Scan YES 02/28/21 05:25: White Blood Count 10.8, Red Blood Count 4.00, Hemoglobin 11.4L, Hematocrit 36, Mean Corpuscular Volume 90, Mean Corpuscular Hemoglobin 29, Mean Corpuscular Hemoglobin Concent 32, Red Cell Distribution Width 16.6H, Platelet Count 247, Mean Platelet Volume 11.7, Immature Granulocyte % (Auto) 1, Neutrophils (%) (Auto) 56, Lymphocytes (%) (Auto) 22, Monocytes (%) (Auto) 9, Eosinophils (%) (Auto) 12H, Basophils (%) (Auto) 0, Neutrophils # (Auto) 6.1, Lymphocytes # (Auto) 2.4, Monocytes # (Auto) 1.0, Eosinophils # (Auto) 1.3H, Basophils # (Auto) 0.0, Immature Granulocyte # (Auto) 0.1, Sodium Level 137, Potassium Level 4.8, Chloride Level 103, Carbon Dioxide Level 24, Anion Gap 10, Blood Urea Nitrogen 30H, Creatinine 1.24, Estimat Glomerular Filtration Rate 42, BUN/Creatinine Ratio 24, Glucose Level 98, Calcium Level 8.8, Corrected Calcium 9.4, Total Bilirubin 1.2H, Aspartate Amino Transf (AST/SGOT) 25, Alanine Aminotransferase (ALT/SGPT) 22, Alkaline Phosphatase 82, Total Protein 6.1L, Albumin 3.2 03/06/21 20:32: White Blood Count 12.9H, Red Blood Count 3.92, Hemoglobin 11.4L, Hematocrit 36, Mean Corpuscular Volume 91, Mean Corpuscular Hemoglobin 29, Mean Corpuscular Hemoglobin Concent 32, Red Cell Distribution Width 17.2H, Platelet Count 243, Mean Platelet Volume 11.6, Immature Granulocyte % (Auto) 0, Neutrophils (%) (Auto) 78H, Lymphocytes (%) (Auto) 9L, Monocytes (%) (Auto) 7, Eosinophils (%) (Auto) 6, Basophils (%) (Auto) 0, Neutrophils # (Auto) 10.0H, Lymphocytes # (Aut o) 1.2, Monocytes # (Auto) 0.9, Eosinophils # (Auto) 0.7H, Basophils # (Auto) 0.0, Immature Granulocyte # (Auto) 0.1, Sodium Level 135, Potassium Level 4.3, Chloride Level 103, Carbon Dioxide Level 23, Anion Gap 9, Blood Urea Nitrogen 23H, Creatinine 1.07, Estimat Glomerular Filtration Rate 49, BUN/Creatinine Ratio 21, Glucose Level 140H, Calcium Level 9.5, Corrected Calcium 9.8, Total Bilirubin 1.6H, Aspartate Amino Transf (AST/SGOT) 19, Alanine Aminotransferase (ALT/SGPT) 14, Alkaline Phosphatase 107, Total Protein 6.9, Albumin 3.6, Lactic Acid Level 1.27, Procalcitonin 0.09 03/06/21 22:00: Urine Color YELLOW, Urine Clarity SL CLOUDY, Urine pH 5.5, Urine Specific Brawley 1.015L, Urine Protein NEGATIVE, Urine Glucose (UA) NEGATIVE, Urine Ketones NEGATIVE, Urine Nitrite POSITIVEH, Urine Bilirubin NEGATIVE, Urine Urobilinogen 0.2, Urine Leukocyte Esterase NEGATIVE, Urine RBC (Auto) 2+H, Urine RBC 0-2, Urine WBC 0-2, Urine Squamous Epithelial Cells NONE, Urine Crystals NO NE, Urine Bacteria MODERATEH, Urine Casts NONE, Urine Mucus NEGATIVE, Urine Culture Indicated YES 03/07/21 05:36: White Blood Count 10.4, Red Blood Count 3.42L, Hemoglobin 9.8L, Hematocrit 31L, Mean Corpuscular Volume 92, Mean Corpuscular Hemoglobin 29, Mean Corpuscular Hemoglobin Concent 31L, Red Cell Distribution Width 17.2H, Platelet Count 193, Mean Platelet Volume 11.3, Immature Granulocyte % (Auto) 0, Neutrophils (%) (Auto) 60, Lymphocytes (%) (Auto) 17, Monocytes (%) (Auto) 10, Eosinophils (%) (Auto) 13H, Basophils (%) (Auto) 0, Neutrophils # (Auto) 6.2, Lymphocytes # (Auto) 1.7, Monocytes # (Auto) 1.1H, Eosinophils # (Auto) 1.3H, Basophils # (Auto) 0.0, Immature Granulocyte # (Auto) 0.0, Sodium Level 138, Potassium Level 3.9, Chloride Level 104, Carbon Dioxide Level 26, Anion Gap 8, Blood Urea Nitrogen 22H, Creatinine 0.85, Estimat Glomerular Filtration Rate > 60, BUN/Creatinine Ratio 26, Glucose Level 92, Calcium Level 9.0, Corrected Calcium 9.7, Total Bilirubin 1.6H, Aspartate Amino Transf (AST/SGOT) 15, Alanine Aminotransferase (ALT/SGPT) 11, Alkaline Phosphatase 79, Total Protein 5.9L, Albumin 3.1L 03/09/21 05:50: White Blood Count 8.6, Red Blood Count 3.11L, Hemoglobin 9.1L, Hematocrit 28L, Mean Corpuscular Volume 91, Mean Corpuscular Hemoglobin 29, Mean Corpuscular Hemoglobin Concent 32, Red Cell Distribution Width 17.2H, Platelet Count 204, Mean Platelet Volume 10.7, Sodium Level 137, Potassium Level 4.3, Chloride Level 103, Carbon Dioxide Level 26, Anion Gap 8, Blood Urea Nitrogen 29H, Creatinine 0.95, Estimat Glomerular Filtration Rate 57, BUN/Creatinine Ratio 31, Glucose Level 98, Calcium Level 9.4, Corrected Calcium 10.3H, Total Bilirubin 0.9, Aspartate Amino Transf (AST/SGOT) 11, Alanine Aminotransferase (ALT/SGPT) 10, Alkaline Phosphatase 87, Total Protein 5.7L, Albumin 2.9L 03/09/21 13:05: Vancomycin Level Trough 10.7 03/14/21 06:35: White Blood Count 6.4, Red Blood Count 3.51L, Hemoglobin 10.2L, Hematocrit 32L, Mean Corpuscular Volume 92, Mean Corpuscular Hemoglobin 29, Mean Corpuscular Hemoglobin Concent 32, Red Cell Distribution Width 16.8H, Platelet Count 289, Mean Platelet Volume 10.5, Immature Granulocyte % (Auto) 1, Neutrophils (%) (Auto) 42, Lymphocytes (%) (Auto) 30, Monocytes (%) (Auto) 8, Eosinophils (%) (Auto) 20H, Basophils (%) (Auto) 0, Neutrophils # (Auto) 2.7, Lymphocytes # (Auto) 1.9, Monocytes # (Auto) 0.5, Eosinophils # (Auto) 1.3H, Basophils # (Auto) 0.0, Immature Granulocyte # (Auto) 0.0, Neutrophils % (Manual) 47, Lymphocytes % (Manual) 33, Monocytes % (Manual) 5, Eosinophils % (Manual) 15, Poikilocytosis SLIGHT, Elliptocytes SLIGHT, Sodium Level 138, Potassium Level 4.7, Chloride Level 102, Carbon Dioxide Level 26, Anion Gap 10, Blood Urea Nitrogen 39H, Creatinine 1.57H, Estimat Glomerular Filtration Rate 32, BUN /Creatinine Ratio 25, Glucose Level 88, Calcium Level 9.1, Corrected Calcium 9.7, Total Bilirubin 0.6, Aspartate Amino Transf (AST/SGOT) 16, Alanine Aminotransferase (ALT/SGPT) 13, Alkaline Phosphatase 112, Total Protein 6.1L, Albumin 3.2 Microbiology 03/06/21 Urine Culture - Final, Complete Escherichia coli Pending Labs Microbiology Date/Time Source Procedure Growth Status 03/06/21 22:00 Urine Indwelling Cath ([facility]) Urine Culture - Final Escherichia coli Complete Laboratory Tests 02/24/21 16:39: Lab Scanned Report Referred Lab Report 02/25/21 05:05: White Blood Count 9.4, Red Blood Count 4.28, Hemoglobin 12.4, Hematocrit 39, Mean Corpuscular Volume 91, Mean Corpuscular Hemoglobin 29, Mean Corpuscular Hemoglobin Concent 32, Red Cell Distribution Width 16.6, Platelet Count 284, Mean Platelet Volume 12.0, Immature Granulocyte % (Auto) 0, Neutrophils (%) (Auto) 52, Lymphocytes (%) (Auto) 27, Monocytes (%) (Auto) 7, Eosinophils (%) (Auto) 13, Basophils (%) (Auto) 0, Neutrophils # (Auto) 4.9, Lymphocytes # (Auto) 2.5, Monocytes # (Auto) 0.7, Eosinophils # (Auto) 1.3, Basophils # (Auto) 0.0, Immature Granulocyte # (Auto) 0.0, Sodium Level 141, Potassium Level 4.3, Chloride Level 105, Carbon Dioxide Level 25, Anion Gap 11, Blood Urea Nitrogen 29, Creatinine 0.91, Estimat Glomerular Filtration Rate 60, BUN/Creatinine Ratio 32, Glucose Level 103, Calcium Level 9.5, Corrected Calcium 9.9, Total Bilirubin 1.9, Aspartate Amino Transf (AST/SGOT) 29, Alanine Aminotransferase (ALT/SGPT) 21, Alkaline Phosphatase 70, Total Protein 6.1, Albumin 3.5, Smear Scan YES 02/28/21 05:25: White Blood Count 10.8, Red Blood Count 4.00, Hemoglobin 11.4, Hematocrit 36, Mean Corpuscular Volume 90, Mean Corpuscular Hemoglobin 29, Mean Corpuscular Hemoglobin Concent 32, Red Cell Distribution Width 16.6, Platelet Count 247, Mean Platelet Volume 11.7, Immature Granulocyte % (Auto) 1, Neutrophils (%) (Auto) 56, Lymphocytes (%) (Auto) 22, Monocytes (%) (Auto) 9, Eosinophils (%) (Auto) 12, Basophils (%) (Auto) 0, Neutrophils # (Auto) 6.1, Lymphocytes # (Auto) 2.4, Monocytes # (Auto) 1.0, Eosinophils # (Auto) 1.3, Basophils # (Auto) 0.0, Immature Granulocyte # (Auto) 0.1, Sodium Level 137, Potassium Level 4.8, Chloride Level 103, Carbon Dioxide Level 24, Anion Gap 10, Blood Urea Nitrogen 30, Creatinine 1.24, Estimat Glomerular Filtration Rate 42, BUN/Creatinine Ratio 24, Glucose Level 98, Calcium Level 8.8, Corrected Calcium 9.4, Total Bilirubin 1.2, Aspartate Amino Transf (AST/SGOT) 25, Alanine Aminotransferase (ALT/SGPT) 22, Alkaline Phosphatase 82, Total Protein 6.1, Albumin 3.2 03/06/21 20:32: White Blood Count 12.9, Red Blood Count 3.92, Hemoglobin 11.4, Hematocrit 36, Mean Corpuscular Volume 91, Mean Corpuscular Hemoglobin 29, Mean Corpuscular Hemoglobin Concent 32, Red Cell Distribution Width 17.2, Platelet Count 243, Mean Platelet Volume 11.6, Immature Granulocyte % (Auto) 0, Neutrophils (%) (Auto) 78, Lymphocytes (%) (Auto) 9, Monocytes (%) (Auto) 7, Eosinophils (%) (Auto) 6, Basophils (%) (Auto) 0, Neutrophils # (Auto) 10.0, Lymphocytes # (Auto) 1.2, Monocytes # (Auto) 0.9, Eosinophils # (Auto) 0.7, Basophils # (Auto) 0.0, Immature Granulocyte # (Auto) 0.1, Sodium Level 135, Potassium Level 4.3, Chloride Level 103, Carbon Dioxide Level 23, Anion Gap 9, Blood Urea Nitrogen 23, Creatinine 1.07, Estimat Glomerular Filtration Rate 49, BUN/Creatinine Ratio 21, Glucose Level 140, Calcium Level 9.5, Corrected Calcium 9.8, Total Bilirubin 1.6, Aspartate Amino Transf (AST/SGOT) 19, Alanine Aminotransferase (ALT/SGPT) 14, Alkaline Phosphatase 107, Total Protein 6.9, Albumin 3.6, Lactic Acid Level 1.27, Procalcitonin 0.09 03/06/21 22:00: Urine Color YELLOW, Urine Clarity SL CLOUDY, Urine pH 5.5, Urine Specific Brawley 1.015, Urine Protein NEGATIVE, Urine Glucose (UA) NEGATIVE, Urine Ketones NEGATIVE, Urine Nitrite POSITIVE, Urine Bilirubin NEGATIVE, Urine Urobilinogen 0.2, Urine Leukocyte Esterase NEGATIVE, Urine RBC (Auto) 2+, Urine RBC 0-2, Urine WBC 0-2, Urine Squamous Epithelial Cells NONE, Urine Crystals NONE, Urine Bacteria MODERATE, Urine Casts NONE, Urine Mucus NEGATIVE, Urine Culture Indicated YES 03/07/21 05:36: White Blood Count 10.4, Red Blood Count 3.42, Hemoglobin 9.8, Hematocrit 31, Mean Corpuscular Volume 92, Mean Corpuscular Hemoglobin 29, Mean Corpuscular Hemoglobin Concent 31, Red Cell Distribution Width 17.2, Platelet Count 193, Mean Platelet Volume 11.3, Immature Granulocyte % (Auto) 0, Neutrophils (%) (Auto) 60, Lymphocytes (%) (Auto) 17, Monocytes (%) (Auto) 10, Eosinophils (%) (Auto) 13, Basophils (%) (Auto) 0, Neutrophils # (Auto) 6.2, Lymphocytes # (Auto) 1.7, Monocytes # (Auto) 1.1, Eosinophils # (Auto) 1.3, Basophils # (Auto) 0.0, Immature Granulocyte # (Auto) 0.0, Sodium Level 138, Potassium Level 3.9, Chloride Level 104, Carbon Dioxide Level 26, Anion Gap 8, Blood Urea Nitrogen 22, Creatinine 0.85, Estimat Glomerular Filtration Rate > 60, BUN/Creatinine Ratio 26, Glucose Level 92, Calcium Level 9.0, Corrected Calcium 9.7, Total Bilirubin 1.6, Aspartate Amino Transf (AST/SGOT) 15, Alanine Aminotransferase (ALT/SGPT) 11, Alkaline Phosphatase 79, Total Protein 5.9, Albumin 3.1 03/09/21 05:50: White Blood Count 8.6, Red Blood Count 3.11, Hemoglobin 9.1, Hematocrit 28, Mean Corpuscular Volume 91, Mean Corpuscular Hemoglobin 29, Mean Corpuscular Hemoglobin Concent 32, Red Cell Distribution Width 17.2, Platelet Count 204, Mean Platelet Volume 10.7, Sodium Level 137, Potassium Level 4.3, Chloride Level 103, Carbon Dioxide Level 26, Anion Gap 8, Blood Urea Nitrogen 29, Creatinine 0.95, Estimat Glomerular Filtration Rate 57, BUN/Creatinine Ratio 31, Glucose Level 98, Calcium Level 9.4, Corrected Calcium 10.3, Total Bilirubin 0.9, Aspartate Amino Transf (AST/SGOT) 11, Alanine Aminotransferase (ALT/SGPT) 10, Alkaline Phosphatase 87, Total Protein 5.7, Albumin 2.9 03/09/21 13:05: Vancomycin Level Trough 10.7 03/14/21 06:35: White Blood Count 6.4, Red Blood Count 3.51, Hemoglobin 10.2, Hematocrit 32, Mean Corpuscular Volume 92, Mean Corpuscular Hemoglobin 29, Mean Corpuscular Hemoglobin Concent 32, Red Cell Distribution Width 16.8, Platelet Count 289, Mean Platelet Volume 10.5, Immature Granulocyte % (Auto) 1, Neutrophils (%) (Auto) 42, Lymphocytes (%) (Auto) 30, Monocytes (%) (Auto) 8, Eosinophils (%) (Auto) 20, Basophils (%) (Auto) 0, Neutrophils # (Auto) 2.7, Lymphocytes # (Auto) 1.9, Monocytes # (Auto) 0.5, Eosinophils # (Auto) 1.3, Basophils # (Auto) 0.0, Immature Granulocyte # (Auto) 0.0, Neutrophils % (Manual) 47, Lymphocytes % (Manual) 33, Monocytes % (Manual) 5, Eosinophils % (Manual) 15, Poikilocytosis SLIGHT, Elliptocytes SLIGHT, Sodium Level 138, Potassium Level 4.7, Chloride Level 102, Carbon Dioxide Level 26, Anion Gap 10, Blood Urea Nitrogen 39, Creatinine 1.57, Estimat Glomerular Filtration Rate 32, BUN/Creatinine Ratio 25, Glucose Level 88, Calcium Level 9.1, Corrected Calcium 9.7, Total Bilirubin 0.6, Aspartate Amino Transf (AST/SGOT) 16, Alanine Aminotransferase (ALT/SGPT) 13, Alkaline Phosphatase 112, Total Protein 6.1, Albumin 3.2 Discharge Home Medications: Active Scripts Active Ondansetron Odt (Ondansetron) 4 Mg Tab.rapdis 4 Mg PO Q6H PRN 30 Days Stool Softener-Laxative Tablet (Sennosides/Docusate Sodium) 1 Each Tablet 1 Ea PO BID 30 Days Naphcon-A Eye Drops (Naphazoline/Pheniramine) 15 Ml Soln 0 Ml OS QID 365 Days Xanax Tablet (Alprazolam) 0.25 Mg Tab 0.25 Mg PO Q8H PRN HYDROcodone/APAP 5 MG/325 MG TAB (Acetaminophen/Hydrocodone Bitart) 1 Tab Tab 1 Ea PO Q6HR PRN Spironolactone 25 Mg Tablet 12.5 Mg PO DAILY@0800 365 Days Lisinopril 5 Mg Tablet 2.5 Mg PO DAILY 365 Days Carvedilol 3.125 Mg Tablet 3.125 Mg PO BID 365 Days Tramadol HCl 50 Mg Tablet 50 Mg PO Q12H PRN Reported Pravastatin Sodium 10 Mg Tablet 10 Mg PO HS Mobic (Meloxicam) 7.5 Mg Tablet 7.5 Mg PO DAILY Eliquis (Apixaban) 5 Mg Tablet 5 Mg PO BID Citalopram HBr (Citalopram Hydrobromide) 10 Mg Tablet 10 Mg PO DAILY Proair Hfa (Albuterol Sulfate) 1 Puff Puff 4 Puff IH Q8H PRN Xalatan (Latanoprost) 2.5 Ml Drops 1 Drop OU HS Potassium Chloride 20 Meq Tablet.er 20 Meq PO DAILY Breo Ellipta 200-25 Mcg INH (Fluticasone/Vilanterol) 1 Each Blst.w.dev 1 Puff IH DAILY Furosemide 40 Mg Tablet 60 Mg PO DAILY TAKES 1 & (40MG) TABS Neurontin (Gabapentin) 300 Mg Capsule 300 Mg PO TID Amitriptyline HCl 25 Mg Tablet 25 Mg PO HS Ropinirole HCl 1 Mg Tablet 1 Mg PO HS Instructions to patient/family Please see electronic discharge instructions given to patient. Diagnosis/Problems Diagnosis/Problems (1) CVA (cerebral vascular accident) (2) Right sided weakness Status: Acute (3) Aphasia Status: Acute (4) Debility Status: Acute (5) Delirium Status: Acute MAAME LOMBARDO DO Mar 15, 2021 09:37
--- NOTE | 2021-03-15 11:50 | Occupational Ther Daily Note ---
OT Current Status-Daily Note Subjective Pt alert, sitting in recliner. Pt oriented x1, confused. Pt c/o pain with any sit to stand or mobility due to knee pain. Co-treat with PT ([id number]), skilled instruction and modifications requires 2 clinicians due to increased fall risk, confusion and decreased mobility. Mental Status/Objective Patient Orientation: Person ADL-Treatment Pt agrees to sponge bath. With set up and verbal cues to bath each area, pt able to complete with min A. Assistance needed to cleanse buttocks and monet area while pt stabilizes self with FWW, bathing/toileting. Pt able to don/doff upper body clothing by self after setup. Pt able to thread pants over feet then assist to hike pants over hips in standing while pt stabilizes self with FWW. Pt able to doff B socks by self, dons R sock by self then assist with L sock. Using clinical judgment from previous OT session, pt is able to complete oral ca re sitting at sink by self. Using clinical judgment, pt requires assist to open containers and packages for meal then uses regular utensils to eat by self. Therapy Code Descriptions/Definitions Functional [place] Measure: 0=Not Assessed/NA 4=Minimal Assistance 1=Total Assistance 5=Supervision or Setup 2=Maximal Assistance 6=Modified [place] 3=Moderate Assistance 7=Complete IndependenceSCALE: Activities may be completed with or without assistive devices. 8-Vqvxyuisfo-tyjqjri completes the activity by him/herself with no assistance from a helper. 5-Set-up or Clean-up Assistance-helper sets up or cleans up; patient completes activity. [place] assists only prior to or following the activity. 4-Supervision or Touching Assistance-helper provides verbal cues and/or touching/steadying and/or contact guard assistance as patient completes activity. Assistance may be provided throughout the activity or intermittently. 3-Partial/Moderate Assistance-helper does LESS THAN HALF the effort. [place] lifts, holds or supports trunk or limbs, but provides less than half the effort. 2-Substantial/Maximal Assistance-helper does MORE THAN HALF the effort. [place] lifts or holds trunk or limbs and provides more than half the effort. 7-Qclqzdnow-fejyac does ALL the effort. Patient does none of the effort to complete the activity. Or, the assistance of 2 or more helpers is required for the patient to complete the activity. If activity was not attempted, code reason: 7-Patient Refused. 9-Not Applicable-not attempted and the patient did not perform the activity before the current illness, exacerbation or injury. 10-Not Attempted due to Environmental Limitations-(lack of equipment, weather restraints, etc.). 88-Not Attempted due to Medical Conditions or Safety Concerns. Eating (QC): 5 Oral Hygiene (QC): 6 Shower/Bathe Self (QC): 3 Upper Body Dressing (QC): 5 Lower Body Dressing (QC): 3 On/Off Footwear: 3 Toileting Hygiene (QC): 2 Toilet Transfer (QC): 3 Pt is inconsistent with ADL skills and at times requires assistance x2 for safety due to confusion or increased pain. Pt requires increased time to process what is asked then be able to sequence how to complete. Other Treatment PT working on mobility, transfers and ambulation while OT working on ADLs and functional mobility. See PT notes for transfer, mobility and ambulation progress. After session, pt sitting in w/c at [facility]. Nrsg aware of pt's position. All needs met in room. OT Short Term Goals Short Term Goals Time Frame: Mar 04, 2021 Oral hygiene: 5 Toileting hygiene: 5 OT Senior Care Goals V Belt Skiver Goals Time Frame: Mar 18, 2021 Eating (QC): 6 Oral Hygiene (QC): 6 Toileting Hygiene (QC): 6 Shower/Bathe Self (QC): 4 Upper Body Dressing (QC): 5 Lower Body Dressing (QC): 4 On/Off Footwear (QC): 4 Additional Goals: 1-Demonstrate ADL Tasks, 2-Verbalize Understanding, 3- ImproveStrength/Katherine 1=Demonstrate adherence to instructed precautions during ADL tasks. 2=Patient will verbalize/demonstrate understanding of assistive devices/modifications for ADL. 3=Patient will improve strength/tolerance for activity to enable patient to perform ADL's. OT Education/Plan Problem List/Assessment Assessment: Decreased Activ Tolerance, Decreased Safety Aware, Decreased UE Strength, Impaired Coordination, Impaired Funct Balance, Impaired Self-Care Skills, Restricted Funct UE ROM Discharge Recommendations Plan/Recommendations: Continue POC Treatment Plan/Plan of Care Patient would benefit from OT for education, treatment and training to promote independence in ADL's, mobility, safety and/or upper extremity function for ADL's. Plan of Care: ADL Retraining, Functional Mobility, Group Exercise/Act as Ind, UE Funct Exercise/Act Treatment Duration: Mar 18, 2021 Frequency: At least 5 of 7 days/Wk (IRF) Estimated Hrs Per Day: 1.5 hours per day Agreement: Yes Rehab Potential: Fair Time/GCodes Start Time: 11:00 Stop Time: 11:42 Total Time Billed (hr/min): 42 Billed Treatment Time 1 visit-ADL 2 (30 min) FA 1 (12 min) co-treat with PT [id number], individual [id number] RUPINDER ANGULO Mar 15, 2021 11:50
--- NOTE | 2021-03-15 12:06 | Physical Therapy Daily Note ---
PT Daily Note-Current Subjective Pt working with OT upon arrival. Pt agrees to QC scoring for d/c today. Pt alert, sitting in recliner. Pt oriented x1, confused. Pt c/o pain with any sit to stand or mobility due to knee pain. Co-treat with PT ([id number]), skilled instruction and modifications requires 2 clinicians due to increased fall risk, confusion and decreased mobility. Pain Location: Right, Left Location Body Site: Knee Pain Description: Chronic Comment: Pain w/any sit to stands or movement, doesn't rate. Mental Status Patient Orientation: Person, Place Transfers SCALE: Activities may be completed with or without assistive devices. 1-Yuavuwhgkd-otjlmso completes the activity by him/herself with no assistance from a helper. 5-Set-up or Clean-up Assistance-helper sets up or cleans up; patient completes activity. [place] assists only prior to or following the activity. 4-Supervision or Touching Assistance-helper provides verbal cues and/or touching/steadying and/or contact guard assistance as patient completes activity. Assistance may be provided throughout the activity or intermittently. 3-Partial/Moderate Assistance-helper does LESS THAN HALF the effort. [place] lifts, holds or supports trunk or limbs, but provides less than half the effort. 2-Substantial/Maximal Assistance-helper does MORE THAN HALF the effort. [place] lifts or holds trunk or limbs and provides more than half the effort. 6-Myscryhgm-ieezqo does ALL the effort. Patient does none of the effort to complete the activity. Or, the assistance of 2 or more helpers is required for the patient to complete the activity. If activity was not attempted, code reason: 7-Patient Refused. 9-Not Applicable-not attempted and the patient did not perform the activity before the current illness, exacerbation or injury. 10-Not Attempted due to Environmental Limitations-(lack of equipment, weather restraints, etc.). 88-Not Attempted due to Medical Conditions or Safety Concerns. Roll Left & Right (QC): 4 Sit to Lying (QC): 4 Lying to Sitting/Side of Bed(Q: 4 Sit to Stand (QC): 4 Chair/Lkp-lv-Kugtx Xfer(QC): 4 Toilet Transfer (QC): 3 Car Transfer (QC): 3 Weight Bearing Full Weight Bearing Full Weight Bearing Gait Training Does the Patient Walk?: Yes Distance: 30' Walk 10 feet (QC): 4 Walk 50 ft with 2 Turns(QC): 7 Walk 150 ft (QC): 7 Walking 10ft/uneven surface-QC: 7 Gait Persons Needed: 1 Gait Assistive Device: FWW Wheelchair Training Does the Pt Use a Wheelchair?: Yes Wheel 50 ft with 2 turns (QC): 3 Wheel 150 ft (QC): 3 Type of Wheelchair: Manual Stair Training 1 Step (curb) (QC): 88 4 Steps (QC): 88 12 Steps (QC): 88 Balance Picking up an Object (QC): 88 Treatments PT working on mobility, transfers and ambulation while OT working on ADLs and functional mobility. Pt completes QC scoring items listed above but has not been able to complete all items due to safety. After session, pt sitting in w/c at [facility]. Nrsg aware of pt's position. All needs met in room. Assessment Current Status: Fair Progress Pt limited by pain in B knees which audibly pops. Pt is very inconsistent with transfers and mobility depending on cognition and pain. PT Short Term Goals Short Term Goals Time Frame: Mar 04, 2021 Roll Left & Right: 6 Sit to lyin Lying to sitting on side of be: 4 Sit to stand: 4 Chair/fsw-az-yrjnm transfer: 4 Walk 10 feet: 4 Walk 50 feet with two turns: 4 PT Residential Goals Residential Goals PT Oncology Admin Goals Time Frame: Mar 18, 2021 Roll Left & Right (QC): 6 Sit to Lying (QC): 6 Lying-Sitting on Side/Bed(QC): 6 Sit to Stand (QC): 4 (SBA) Chair/Gcj-xi-Zwagw Xfer(QC): 4 (SBA) Toilet Transfer (QC): 4 (SBA) Car Transfer (QC): 4 (SBA) Does the Patient Walk: Yes Walk 10 feet (QC): 4 (SBA) Walk 50ft with 2 Turns (QC): 4 (SBA) Walk 150 ft (QC): 88 Walking 10ft on Uneven Surface: 88 1 Step (curb) (QC): 88 4 Steps (QC): 88 12 Steps (QC): 88 Picking up an Object (QC): 88 Wheel 50 feet with 2 turns (QC: 5 Wheel 150 feet: 5 PT Plan Problem List Problem List: Activity Tolerance, Functional Strength, Safety, Balance, Gait, Transfer Treatment/Plan Treatment Plan: Continue Plan of Care Treatment Plan: Bed Mobility, Education, Functional Activity Katherine, Functional Strength, Group Therapy, Gait, Safety, Therapeutic Exercise, Transfers Treatment Duration: Mar 18, 2021 Frequency: At least 5 of 7 days/Wk (IRF) Estimated Hrs Per Day: 1.5 hours per day Patient and/or Family Agrees t: Yes Safety Risks/Education Patient Education: Gait Training, Transfer Techniques, Correct Positioning, W/C Management, Safety Issues Teaching Recipient: Patient Teaching Methods: Discussion Response to Teaching: Reinforcement Needed Time/GCodes Time In: 1115 Time Out: 1142 Total Billed Treatment Time: 27 Total Billed Treatment 1, FA x2 (27m) Co-treat w/OT for 27m FITO FAUSTIN PTA Mar 15, 2021 12:06
[2021-03-15 13:50] VITALS: BP 130/60
--- NOTE | 2021-03-16 08:34 | Therapy Team Discharge Summary ---
Therapy Discharge Summary Discharge Recommendations Date of Discharge Mar 15, 2021 at 13:50 Therapy D/C Recommendations: Physical Therapy Home Care Physical Therapy This patient admitted to ARU post acute hospital stay due to a CVA. Prior to the CVA, she was living with her children. Upon admission to ARU, pt required min to CGA with bed mobility, transfers and able to ambulate 10 ft with FWW with min assist. Treatment has consisted of functional strength, balance and activity tolerance to improve/progress bed mobility , transfers and gait. F amily training has also been provided. Her progress has been inconsistent with some days being able to transfer and walk with CGA, other days requiring fairly heavy assist, up to mod or max. At last visit, she was generally min assist to CGA with transfers and walked 10 ft with CGA with FWW. She had some difficulty with following through with cues and took extra time to respond. Her goals remain unmet due to inconsistent progress and slight functional change with skilled intervention. She is discharging home with family, with [facility] PT planned to follow. Will DC from ARU at this time. Occupational Therapy Decreased Activ Tolerance, Decreased Safety Aware, Decreased UE Strength, Impaired Coordination, Impaired Funct Balance, Impaired Self-Care Skills, Restricted Funct UE ROM PT [facility] Goals System Trainer Goals PT System Trainer Goals Time Frame: Mar 18, 2021 Roll Left to Right (QC): 6 Sit to Lying (QC): 6 Lying-Sitting on Side/Bed(QC): 6 Sit to Stand (QC): 4 (SBA) Chair/Jzw-uf-Kvoxp Xfer(QC): 4 (SBA) Car Transfer (QC): 4 (SBA) Does the Patient Walk: Yes Walk 10 feet (QC): 4 (SBA) Walk 10ft-Uneven Surface(QC): 88 Walk 50ft with 2 Turns (QC): 4 (SBA) Walk 150 ft (QC): 88 Wheel 50 feet with 2 turns (QC: 5 1 Step (curb) (QC): 88 4 Steps (QC): 88 12 Steps (QC): 88 Picking up an Object (QC): 88 goals unmet; pt to dc home with family with recommended [facility] PT to follow. OT [facility] Goals System Trainer Goals Time Frame: Mar 18, 2021 Eating (QC): 6 Oral Hygiene (QC): 6 Shower/Bathe Self (QC): 4 Upper Body Dressing (QC): 5 Lower Body Dressing (QC): 4 On/Off Footwear (QC): 4 Toileting Hygiene (QC): 6 Toilet/Commode Transfer (QC): 4 (SBA) Additional Goals: 1-Demonstrate ADL Tasks, 2-Verbalize Understanding, 3- ImproveStrength/Katherine 1=Demonstrate adherence to instructed precautions during ADL tasks. 2=Patient will verbalize/demonstrate understanding of assistive devices/modifications for ADL. 3=Patient will improve strength/tolerance for activity to enable patient to perform ADL's. Speech System Trainer Goals [facility] Goals Patient will improve cognitive-communication abilities so that she is able to complete daily tasks with decreased assist. RUPINDER SPARKS PT Mar 16, 2021 08:34
--- NOTE | 2021-03-16 11:16 | Therapy Team Discharge Summary ---
Therapy Discharge Summary Discharge Recommendations Date of Discharge Mar 15, 2021 at 13:50 Therapy D/C Recommendations: 24 hr Supervision, Bath Aide, Occupational Therapy Home Care, Physical Therapy Home Care Occupational Therapy Pt. seen at this facility to increase overall strength and independence with daily skills. Pt. did not meet most goals, and at discharge required mod/min assist with most ADLs. Pt. is discharging home with son. Recommend home health care for ongoing therapy with OT, as well as bath aide and any other assistance available. Please see goals above that were met. Decreased Activ Tolerance, Decreased Safety Aware, Decreased UE Strength, Impaired Cognition, Impaired Coordination, Impaired Funct Balance, Impaired I ADL's, Impaired Self-Care Skills, Restricted Funct UE ROM PT Cubing Machine Tender Goals Cubing Machine Tender Goals PT Cubing Machine Tender Goals Time Frame: Mar 18, 2021 Roll Left to Right (QC): 6 Sit to Lying (QC): 6 Lying-Sitting on Side/Bed(QC): 6 Sit to Stand (QC): 4 (SBA) Chair/Phn-ja-Haztx Xfer(QC): 4 (SBA) Car Transfer (QC): 4 (SBA) Does the Patient Walk: Yes Walk 10 feet (QC): 4 (SBA) Walk 10ft-Uneven Surface(QC): 88 Walk 50ft with 2 Turns (QC): 4 (SBA) Walk 150 ft (QC): 88 Wheel 50 feet with 2 turns (QC: 5 1 Step (curb) (QC): 88 4 Steps (QC): 88 12 Steps (QC): 88 Picking up an Object (QC): 88 OT Cubing Machine Tender Goals Cubing Machine Tender Goals Time Frame: Mar 18, 2021 Eating (QC): 6 (not met) Oral Hygiene (QC): 6 (met) Shower/Bathe Self (QC): 4 (not met) Upper Body Dressing (QC): 5 (met) Lower Body Dressing (QC): 4 (not met) On/Off Footwear (QC): 4 (not met) Toileting Hygiene (QC): 6 (not met) Toilet/Commode Transfer (QC): 4 (not met) Additional Goals: 1-Demonstrate ADL Tasks, 2-Verbalize Understanding, 3- ImproveStrength/Katherine 1=Demonstrate adherence to instructed precautions during ADL tasks. 2=Patient will verbalize/demonstrate understanding of assistive devices/modifications for ADL. 3=Patient will improve strength/tolerance for activity to enable patient to perform ADL's. Speech Snf Goals Cubing Machine Tender Goals Patient will improve cognitive-communication abilities so that she is able to complete daily tasks with decreased assist. CAMPBELL HAGER OT Mar 16, 2021 11:16
== END 2021-03-15 13:50 | disposition home health service (06) | DRG 56 ==
PROVIDERS: ADMIT Internal Medicine; ATTEND Internal Medicine
DX: I69.351 Hemiplegia and hemiparesis following cerebral infarction affecting right dominant side (principal); J18.9 Pneumonia, unspecified organism; R47.01 Aphasia; N39.0 Urinary tract infection, site not specified; I48.20 Chronic atrial fibrillation, unspecified; Z16.12 Extended spectrum beta lactamase (ESBL) resistance; I69.320 Aphasia following cerebral infarction; R41.89 Other symptoms and signs involving cognitive functions and awareness; M17.0 Bilateral primary osteoarthritis of knee; I08.0 Rheumatic disorders of both mitral and aortic valves; R33.9 Retention of urine, unspecified; I10 Essential (primary) hypertension; D11.0 Benign neoplasm of parotid gland; I95.9 Hypotension, unspecified; E78.5 Hyperlipidemia, unspecified; E78.00 Pure hypercholesterolemia, unspecified; B30.9 Viral conjunctivitis, unspecified; K59.09 Other constipation; H40.9 Unspecified glaucoma; F41.9 Anxiety disorder, unspecified; B96.20 Unspecified Escherichia coli [E. coli] as the cause of diseases classified elsewhere; Z79.01 Long term (current) use of anticoagulants; Z95.0 Presence of cardiac pacemaker; Z86.16 Personal history of COVID-19
CPT/HCPCS: 36410; 36415; 71045; 76937; 80053; 80202; 81000; 83605; 84145; 85007; 85025; 85027; 87077; 87088; 87184; 87186; 93005; 93306; 93880; 94640; 94760

== ENCOUNTER 2021-04-08 13:09 | Inpatient (IN) | payer MEDICARE ==
[~2021-04-08] VITALS: Ht 167 cm; Wt 81.0 kg
[~2021-04-08 13:09] MED LIST changes: +ACHD5005 PO; +ALPR.25T PO; +APIX5TAB PO; +CARV3.122 PO; +CARV6.25 PO; +CEFP200T2 PO; +CITA10TA7 PO; +LISI-729 PO; +MELO-170 PO; +NPPH15OP OS; +ONDA4TAB11 PO; +ROSU20TA32 PO; +RT-ALBUINH IH; +SENN1TAB76 PO; +SPIR25TA PO; +SPIR25TA5 PO
[2021-04-08 14:44] LABS: BASOPHILS # (AUTO) 0.1 10^3/uL (0.0-0.1); BASOPHILS % (AUTO) 1 % (0-10); EOSINOPHILS # (AUTO) 1.6 10^3/uL (0.0-0.3); EOSINOPHILS % (AUTO) 20 % (0-10); HEMATOCRIT 34 % (35-52); HEMOGLOBIN 10.2 g/dL (11.5-16.0); LYMPHOCYTES # (AUTO) 1.9 10^3/uL (1.0-4.0); LYMPHOCYTES % (AUTO) 25 % (12-44); MEAN CORPUSCULAR HEMOGLOBIN 28 pg (25-34); MEAN CORPUSCULAR HGB CONC 30 g/dL (32-36); MEAN CORPUSCULAR VOLUME 94 fL (80-99); MEAN PLATELET VOLUME 10.9 fL (9.0-12.2); MONOCYTES # (AUTO) 0.7 10^3/uL (0.0-1.0); MONOCYTES % (AUTO) 9 % (0-12); NEUTROPHILS # (AUTO) 3.6 10^3/uL (1.8-7.8); NEUTROPHILS % (AUTO) 46 % (42-75); PLATELET COUNT 230 10^3/uL (130-400); WHITE BLOOD COUNT 7.8 10^3/uL (4.3-11.0)
[2021-04-08 14:54] LABS: ALBUMIN 3.7 GM/DL (3.2-4.5); POTASSIUM 4.4 MMOL/L (3.6-5.0)
[2021-04-08 14:57] LABS: TOTAL PROTEIN 6.7 GM/DL (6.4-8.2)
[2021-04-08 14:58] LABS: BILIRUBIN,TOTAL 1.7 MG/DL (0.1-1.0)
[2021-04-08 15:00] LABS: CREATININE SERUM 1.09 MG/DL (0.60-1.30)
[2021-04-08] MEDS ORDERED: KETOROLAC 30 MG/ML VIAL IVP ONE (15:00)
[2021-04-08 15:03] LABS: MAGNESIUM 2.3 MG/DL (1.6-2.4)
[2021-04-08 15:10] LABS: BILIRUBIN,URINE NEGATIVE (NEGATIVE); CLARITY,URINE CLEAR; COLOR,URINE YELLOW; GLUCOSE, URINE (UA) NEGATIVE (NEGATIVE); KETONES,URINE NEGATIVE (NEGATIVE); LEUKOCYTE ESTERASE ,URINE NEGATIVE (NEGATIVE); NITRITE,URINE NEGATIVE (NEGATIVE); PROTEIN,URINE TRACE (NEGATIVE)
[2021-04-08] MEDS: LACTATED RINGERS 1,000 ML IV SCH (15:16)
--- NOTE | 2021-04-08 15:19 | ED GU-Female ---
General Chief Complaint: - Urinary Stated Complaint: UTI Source: patient Exam Limitations: no limitations History of Present Illness Date Seen by Provider: Apr 08, 2021 Time Seen by Provider: 14:00 Initial Comments General weakness, right upper abdominal pain, poor food and fluid intake for the past few days. Recently in the hospital for CVA. She has chronic atrial fibrillation on Eliquis. Timing/Duration: just prior to arrival Severity/Quality: moderate Location: unknown Radiation: none Activities at Onset: none Associated Symptoms: denies symptoms Allergies and Home Medications Allergies Coded Allergies: doxycycline (Unverified Allergy, Mild, 11/26/17) Home Medications ALPRAZolam 0.25 Mg Tab, 0.25 MG PO Q8H PRN for ANXIETY Prescribed by: MAAME LOMBARDO on 03/14/21 1020 Albuterol Sulfate 1 Puff Puff, 4 PUFF IH Q8H PRN for SHORTNESS OF BREATH, (Reported) Amitriptyline HCl 25 Mg Tablet, 25 MG PO HS, (Reported) Apixaban 5 Mg Tablet, 5 MG PO BID, (Reported) Carvedilol 3.125 Mg Tablet, 3.125 MG PO BID Prescribed by: MAAME LOMBARDO on 03/14/21 1020 Citalopram Hydrobromide 10 Mg Tablet, 10 MG PO DAILY, (Reported) Fluticasone/Vilanterol 1 Each Blst.w.dev, 1 PUFF IH DAILY, (Reported) Furosemide 40 Mg Tablet, 60 MG PO DAILY, (Reported) TAKES 1 & (40MG) TABS Gabapentin 300 Mg Capsule, 300 MG PO TID, (Reported) Hydrocodone Bit/Acetaminophen 1 Tab Tab, 1 EA PO Q6HR PRN for PAIN-MODERATE (5- 7) Prescribed by: MAAME LOMBARDO on 03/14/21 1020 Latanoprost 2.5 Ml Drops, 1 DROP OU HS, (Reported) Lisinopril 5 Mg Tablet, 2.5 MG PO DAILY Prescribed by: MAAME LOMBARDO on 03/14/21 1020 Meloxicam 7.5 Mg Tablet, 7.5 MG PO DAILY, (Reported) Naphazoline/Pheniramine 15 Ml Soln, 0 ML OS QID Prescribed by: MAAME LOMBARDO on 03/14/21 1020 Ondansetron 4 Mg Tab.rapdis, 4 MG PO Q6H PRN for NAUSEA/VOMITING-1ST LINE Prescribed by: MAAME LOMBARDO on 03/14/21 1020 Potassium Chloride 20 Meq Tablet.er, 20 MEQ PO DAILY, (Reported) Pravastatin Sodium 10 Mg Tablet, 10 MG PO HS, (Reported) Ropinirole HCl 1 Mg Tablet, 1 MG PO HS, (Reported) Sennosides/Docusate Sodium 1 Each Tablet, 1 EA PO BID Prescribed by: MAAME LOMBARDO on 03/14/21 1020 Spironolactone 25 Mg Tablet, 12.5 MG PO DAILY@0800 Prescribed by: MAAME LOMBARDO on 03/14/21 1020 Tramadol HCl 50 Mg Tablet, 50 MG PO Q12H PRN for PAIN-MODERATE (5-7) Prescribed by: MAAME LOMBARDO on 03/14/21 1020 Patient Home Medication List Home Medication List Reviewed: Yes Review of Systems Review of Systems Constitutional: see HPI EENTM: see HPI Respiratory: no symptoms reported Cardiovascular: no symptoms reported Gastrointestinal: abdominal pain Genitourinary: no symptoms reported Musculoskeletal: no symptoms reported Skin: no symptoms reported Psychiatric/Neurological: No Symptoms Reported Endocrine: No Symptoms Reported Hematologic/Lymphatic: No Symptoms Reported Past Zjlvvhu-Zjoduf-Vwlwht Hx Seasonal Allergies Seasonal Allergies: Yes Past Medical History Surgeries: Yes Section, Pacemaker, Tonsillectomy Respiratory: Yes Asthma, Sleep Apnea Currently Using CPAP: No Cardiac: Yes Atrial Fibrillation, High Cholesterol, Hypertension, Valvular Heart Disease Neurological: No Stroke Reproductive Disorders: No Sexually Transmitted Disease: No HIV/AIDS: No Genitourinary: No Gastrointestinal: Yes Chronic Constipation Musculoskeletal: Yes Arthritis, Chronic Back Pain Endocrine: No HEENT: Yes Glaucoma Loss of Vision: Bilateral Hearing Impairment: Denies Cancer: No Psychosocial: Yes Anxiety Integumentary: No Blood Disorders: No Adverse Reaction/Blood Tranf: No (N/A) Physical Exam Vital Signs Vital Signs - First Documented 04/08/21 15:24 Temp 36.8 Pulse 61 Resp 25 B/P (MAP) 161/84 (109) Capillary Refill : Height, Weight, BMI Height: 5'4.00" Weight: 182lbs. 0.6oz. 77.956166kv; 23.05 BMI Method:Stated General Appearance: WD/WN, no apparent distress HEENT: PERRL/EOMI, normal ENT inspection Neck: non-tender, full range of motion Respiratory: normal breath sounds, no respiratory distress, no accessory muscle use Gastrointestinal: normal bowel sounds, tenderness (Right upper), other Neurologic/Psychiatric: alert, normal mood/affect Skin: normal color, warm/dry Progress/Results/Core Measures Suspected Sepsis SIRS Temperature: Pulse: Respiratory Rate: Laboratory Tests 04/08/21 14:30: White Blood Count 7.8 Blood Pressure / Mean: Laboratory Tests 04/08/21 14:30: Creatinine 1.09, Platelet Count 230, Total Bilirubin 1.7H Results/Orders Lab Results Laboratory Tests Test 04/08/21 14:30 04/08/21 14:52 Range/Units White Blood Count 7.8 4.3-11.0 10^3/uL Red Blood Count 3.62 L 3.80-5.11 10^6/uL Hemoglobin 10.2 L 11.5-16.0 g/dL Hematocrit 34 L 35-52 % Mean Corpuscular Volume 94 80-99 fL Mean Corpuscular Hemoglobin 28 25-34 pg Mean Corpuscular Hemoglobin Concent 30 L 32-36 g/dL Red Cell Distribution Width 16.2 H 10.0-14.5 % Platelet Count 230 130-400 10^3/uL Mean Platelet Volume 10.9 9.0-12.2 fL Immature Granulocyte % (Auto) 0 % Neutrophils (%) (Auto) 46 42-75 % Lymphocytes (%) (Auto) 25 12-44 % Monocytes (%) (Auto) 9 0-12 % Eosinophils (%) (Auto) 20 H 0-10 % Basophils (%) (Auto) 1 0-10 % Neutrophils # (Auto) 3.6 1.8-7.8 10^3/uL Lymphocytes # (Auto) 1.9 1.0-4.0 10^3/uL Monocytes # (Auto) 0.7 0.0-1.0 10^3/uL Eosinophils # (Auto) 1.6 H 0.0-0.3 10^3/uL Basophils # (Auto) 0.1 0.0-0.1 10^3/uL Immature Granulocyte # (Auto) 0.0 0.0-0.1 10^3/uL Sodium Level 141 135-145 MMOL/L Potassium Level 4.4 3.6-5.0 MMOL/L Chloride Level 104 98-107 MMOL/L Carbon Dioxide Level 28 21-32 MMOL/L Anion Gap 9 5-14 MMOL/L Blood Urea Nitrogen 23 H 7-18 MG/DL Creatinine 1.09 0.60-1.30 MG/DL Estimat Glomerular Filtration Rate 48 BUN/Creatinine Ratio 21 Glucose Level 89 70-105 MG/DL Calcium Level 9.0 8.5-10.1 MG/DL Corrected Calcium 9.2 8.5-10.1 MG/DL Magnesium Level 2.3 1.6-2.4 MG/DL Total Bilirubin 1.7 H 0.1-1.0 MG/DL Aspartate Amino Transf (AST/SGOT) 14 5-34 U/L Alanine Aminotransferase (ALT/SGPT) 11 0-55 U/L Alkaline Phosphatase 90 40-136 U/L B-Type Natriuretic Peptide 1162.6 H <100.0 PG/ML Total Protein 6.7 6.4-8.2 GM/DL Albumin 3.7 3.2-4.5 GM/DL Urine Color YELLOW Urine Clarity CLEAR Urine pH 6.0 5-9 Urine Specific Adams >=1.030 1.016-1.022 Urine Protein TRACE H NEGATIVE Urine Glucose (UA) NEGATIVE NEGATIVE Urine Ketones NEGATIVE NEGATIVE Urine Nitrite NEGATIVE NEGATIVE Urine Bilirubin NEGATIVE NEGATIVE Urine Urobilinogen 0.2 < = 1.0 MG/DL Urine Leukocyte Esterase NEGATIVE NEGATIVE Urine RBC (Auto) NEGATIVE NEGATIVE Urine RBC NONE /HPF Urine WBC NONE /HPF Urine Squamous Epithelial Cells RARE /HPF Urine Crystals NONE /LPF Urine Bacteria NEGATIVE /HPF Urine Casts NONE /LPF Urine Mucus NEGATIVE /LPF Urine Culture Indicated NO My Orders Orders - JUAN MAURER APRN Ua Culture If Indicated (04/08/21 14:16) Cbc With Automated Diff (04/08/21 14:16) Comprehensive Metabolic Panel (04/08/21 14:16) Ed Iv/Invasive Line Start (04/08/21 14:16) Magnesium (04/08/21 14:16) Lactated Ringers (Lr 1000 Ml Iv Solution (04/08/21 14:30) Straight Cath (Urinary) (04/08/21 14:55) Ketorolac Injection (Toradol Injection) (04/08/21 15:00) Us Gallbladder 14426 (04/08/21 15:18) Ct Abdomen/Pelvis W (04/08/21 15:18) Iohexol Injection (Omnipaque 350 Mg/Ml 1 (04/08/21 15:30) Received Contrast (Hold Metformin- Contr (04/08/21 15:30) Sodium Chloride Flush (Catheter Flush Sy (04/08/21 15:30) Ns (Ivpb) (Sodium Chloride 0.9% Ivpb Bag (04/08/21 15:30) Chest 1 View, Ap/Pa Only (04/08/21 15:26) BNP (04/08/21 15:26) Fentanyl Inj (Sublimaze Injection) (04/08/21 17:30) Piperacillin Sodium/Tazobactam (Zosyn Vi (04/08/21 17:45) Furosemide Injection (Lasix Injection) (04/08/21 18:15) Medications Given in ED Current Medications Medications Dose Ordered Sig/Jimi Route Start Time Stop Time Status Last Admin Dose Admin Iohexol 65 ml ONCE ONCE IV 04/08/21 15:30 04/08/21 15:32 DC 04/08/21 15:54 65 ML Ketorolac Tromethamine 15 mg ONCE ONCE IVP 04/08/21 15:00 04/08/21 15:01 DC 04/08/21 15:16 15 MG Sodium Chloride 100 ml ONCE ONCE IV 04/08/21 15:30 04/08/21 15:32 DC 04/08/21 15:54 80 ML Vital Signs/I&O 04/08/21 15:24 Temp 36.8 Pulse 61 Resp 25 B/P (MAP) 161/84 (109) Capillary Refill : Diagnostic Imaging Diagonstic Imaging: CT Comments NAME: LUCITA ORLANDO Allison [facility] REC#: [id number] PT STATUS: REG ER : 1940 PHYSICIAN: JUAN MAURER SECURITY PROFESSIONAL ADMIT DATE: 04/08/21/ER Signed Date of Exam:04/08/21 CHEST 1 VIEW, AP/PA ONLY Indication: Weakness, oliguria, anorexia Portable chest 4:08 PM There is a dual-chamber pacemaker. There is cardiomegaly. Pulmonary vascularity is mildly increased. There is a small right pleural effusion. IMPRESSION: Suboptimal inspiration. There appears be mild pulmonary venous hypertension with a small right pleural effusion. Dictated by: Dictated on workstation # [id number] Dict: 04/08/21 1605 Trans: 04/08/21 1607 [facility] [id number] Interpreted by: TYRONE BULL MD Electronically signed by: TYRONE BULL MD 04/08/21 1607 NAME: LUCITA ORLANDO [facility] REC#: [id number] PT STATUS: REG ER : 1940 PHYSICIAN: JUAN MAURER APRN ADMIT DATE: 04/08/21/ER Draft Date of Exam:04/08/21 CT ABDOMEN/PELVIS W PROCEDURE: CT abdomen and pelvis with contrast. TECHNIQUE: Multiple contiguous axial images were obtained through the abdomen and pelvis after administration of intravenous contrast. Auto Exposure Controls were utilized during the CT exam to meet ALARA standards for radiation dose reduction. All CT scans use one or more of the following dose optimizing techniques: automated exposure control, MA and/or KvP adjustment based on patient size and exam type or iterative reconstruction. DATE: April 08, 2021. COMPARISON: None. INDICATION: 81-year-old female, lower abdominal pain. FINDINGS: There is a moderate right pleural effusion and a small left pleural effusion. There is cardiomegaly. There are coronary artery calcifications. There are additional areas of atherosclerotic disease. There are predominantly linear opacities in the right middle lobe and right lower lobe likely reflecting atelectasis. The liver is unremarkable in size and contour. There is periportal edema. There is cholelithiasis. The gallbladder is mildly distended. There is pericholecystic fluid and generalized fluid in the right upper quadrant. There is no identified dilation of the common bile duct. The main pancreatic duct is not abnormally dilated. Unremarkable appearance of the pancreatic parenchyma. The spleen is normal in size. The adrenal glands are unremarkable. Unremarkable appearance of the renal parenchyma. The urinary collecting systems are not distended. There is no apparent urinary bladder wall thickening. There is a calcified lesion in the uterus likely reflecting a degenerating uterine leiomyoma. There is no identified abnormal distention of the intestinal tract. There is no identified free intracranial air. There is no drainable fluid collection. There is a small amount of free pelvic fluid. There is nonspecific subcutaneous edema at the level of the lower abdomen and also laterally at the level of the upper abdomen. 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 There are bilateral sacroiliac degenerative changes. There are multilevel advanced degenerative changes of the spine. IMPRESSION: CT abdomen and pelvis: 1. Cholelithiasis without gallbladder distention and pericholecystic fluid concerning for acute cholecystitis. Recommend correlation and further evaluation with nuclear medicine HIDA scan, if needed. 2. Moderate right and small left pleural effusion. Atelectasis in the right middle and left lower lobes. 3. Small amount of free pelvic fluid. 4. Areas of nonspecific subcutaneous edema without identified focal fluid collection. Dictated on workstation # [id number] Dict: 04/08/21 1653 Trans: 04/08/21 1701 E [id number] Interpreted by: KATH VARGHESE MD Electronically signed by: Departure Communication (Admissions) Family Conversation Discussed with Dr. Chow. Will admit on Zosyn consult him NAME: LUCITA ORLANDO [facility] REC#: [id number] PT STATUS: REG ER : 1940 PHYSICIAN: JUAN MAURER APRN ADMIT DATE: 04/08/21/ER Draft Date of Exam:04/08/21 CT ABDOMEN/PELVIS W PROCEDURE: CT abdomen and pelvis with contrast. TECHNIQUE: Multiple contiguous axial images were obtained through the abdomen and pelvis after administration of intravenous contrast. Auto Exposure Controls were utilized during the CT exam to meet ALARA standards for radiation dose reduction. All CT scans use one or more of the following dose optimizing techniques: automated exposure control, MA and/or KvP adjustment based on patient size and exam type or iterative reconstruction. DATE: April 08, 2021. COMPARISON: None. INDICATION: 81-year-old female, lower abdominal pain. FINDINGS: There is a moderate right pleural effusion and a small left pleural effusion. There is cardiomegaly. There are coronary artery calcifications. There are additional areas of atherosclerotic disease. There are predominantly linear opacities in the right middle lobe and right lower lobe likely reflecting atelectasis. The liver is unremarkable in size and contour. There is periportal edema. There is cholelithiasis. The gallbladder is mildly distended. There is pericholecystic fluid and generalized fluid in the right upper quadrant. There is no identified dilation of the common bile duct. The main pancreatic duct is not abnormally dilated. Unremarkable appearance of the pancreatic parenchyma. The spleen is normal in size. The adrenal glands are unremarkable. Unremarkable appearance of the renal parenchyma. The urinary collecting systems are not distended. There is no apparent urinary bladder wall thickening. There is a calcified lesion in the uterus likely reflecting a degenerating uterine leiomyoma. There is no identified abnormal distention of the intestinal tract. There is no identified free intracranial air. There is no drainable fluid collection. There is a small amount of free pelvic fluid. There is nonspecific subcutaneous edema at the level of the lower abdomen and also laterally at the level of the upper abdomen. 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 There are bilateral sacroiliac degenerative changes. There are multilevel advanced degenerative changes of the spine. IMPRESSION: CT abdomen and pelvis: 1. Cholelithiasis without gallbladder distention and pericholecystic fluid concerning for acute cholecystitis. Recommend correlation and further evaluation with nuclear medicine HIDA scan, if needed. 2. Moderate right and small left pleural effusion. Atelectasis in the right middle and left lower lobes. 3. Small amount of free pelvic fluid. 4. Areas of nonspecific subcutaneous edema without identified focal fluid collection. Dictated on workstation # [id number] Dict: 04/08/21 1653 Trans: 04/08/21 1701 [facility] [id number] Interpreted by: KATH VARGHESE MD Electronically signed by: Impression Primary Impression: Acute cholecystitis Additional Impression: General weakness Disposition: ADMITTED INPATIENT Condition: Stable Admissions Decision to Admit Reason: Admit from ER (General) Decision to Admit/Date: Apr 08, 2021 Time/Decision to Admit Time: 17:10 Departure-Patient Inst. Referrals: JUSTIN JOHNSON MD (PCP/Family) Primary Care Physician JUAN MAURER APRN Apr 08, 2021 15:19
[2021-04-08 15:24] LABS: BACTERIA,URINE NEGATIVE /HPF; SQUAMOUS EPITHELIAL CELL,UR RARE /HPF
[2021-04-08] MEDS ORDERED: CATHETER FLUSH 10 ML SYR IV PRN ×2 (15:30→20:30)
[2021-04-08] MEDS ORDERED: NS 100 ML (IVPB) BAG IV ONE (15:30)
[2021-04-08] MEDS ORDERED: IOHEXOL 350 MG/ML 100 ML (OMNIPAQUE 350) VIAL IV ONE (15:30)
[2021-04-08] MEDS ORDERED: HOLD METFORMIN - RECEIVED CONTRAST 20 ML VIAL IV SCH (15:30)
--- NOTE | 2021-04-08 16:08 | Diagnostic Imaging Report ---
Indication: Weakness, oliguria, anorexia Portable chest 4:08 PM There is a dual-chamber pacemaker. There is cardiomegaly. Pulmonary vascularity is mildly increased. There is a small right pleural effusion. IMPRESSION: Suboptimal inspiration. There appears be mild pulmonary venous hypertension with a small right pleural effusion. Dictated by: Dictated on workstation # [id number]
--- NOTE | 2021-04-08 17:01 | Diagnostic Imaging Report ---
PROCEDURE: CT abdomen and pelvis with contrast. TECHNIQUE: Multiple contiguous axial images were obtained through the abdomen and pelvis after administration of intravenous contrast. Auto Exposure Controls were utilized during the CT exam to meet ALARA standards for radiation dose reduction. All CT scans use one or more of the following dose optimizing techniques: automated exposure control, MA and/or KvP adjustment based on patient size and exam type or iterative reconstruction. DATE: April 08, 2021. COMPARISON: None. INDICATION: 81-year-old female, lower abdominal pain. FINDINGS: There is a moderate right pleural effusion and a small left pleural effusion. There is cardiomegaly. There are coronary artery calcifications. There are additional areas of atherosclerotic disease. There are predominantly linear opacities in the right middle lobe and right lower lobe likely reflecting atelectasis. The liver is unremarkable in size and contour. There is periportal edema. There is cholelithiasis. The gallbladder is mildly distended. There is pericholecystic fluid and generalized fluid in the right upper quadrant. There is no identified dilation of the common bile duct. The main pancreatic duct is not abnormally dilated. Unremarkable appearance of the pancreatic parenchyma. The spleen is normal in size. The adrenal glands are unremarkable. Unremarkable appearance of the renal parenchyma. The urinary collecting systems are not distended. There is no apparent urinary bladder wall thickening. There is a calcified lesion in the uterus likely reflecting a degenerating uterine leiomyoma. There is no identified abnormal distention of the intestinal tract. There is no identified free intracranial air. There is no drainable fluid collection. There is a small amount of free pelvic fluid. There is nonspecific subcutaneous edema at the level of the lower abdomen and also laterally at the level of the upper abdomen. 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 There are bilateral sacroiliac degenerative changes. There are multilevel advanced degenerative changes of the spine. IMPRESSION: CT abdomen and pelvis: 1. Cholelithiasis without gallbladder distention and pericholecystic fluid concerning for acute cholecystitis. Recommend correlation and further evaluation with nuclear medicine HIDA scan, if needed. 2. Moderate right and small left pleural effusion. Atelectasis in the right middle and left lower lobes. 3. Small amount of free pelvic fluid. 4. Areas of nonspecific subcutaneous edema without identified focal fluid collection. Dictated by: Dictated on workstation # [id number]
--- NOTE | 2021-04-08 17:01 | Diagnostic Imaging Report ---
EXAMINATION: US Abdomen limited. TECHNIQUE: Multiple real-time grayscale images were obtained over the right upper quadrant in various projections. REASON FOR EXAM: Right upper quadrant pain. COMPARISON: None. FINDINGS: The liver is prominent measuring 19.3 cm. There are no focal lesions. No intrahepatic biliary dilatation is present. The common bile duct is obscured. The main portal vein is hepatopedal. No gallstones are seen. There is gallbladder wall thickening measuring 0.5 cm. Pericholecystic fluid is seen.. The sonographic Richardson sign is positive. The visualized portion of the head of the pancreas are within normal limits. The body and tail of the pancreas are not well visualized due to overlying bowel gas. The visualized portions of the IVC and aorta appear normal. The right kidney measures approximately 10.4 cm in length and has a normal appearance. IMPRESSION: 1. Findings suspicious for acute acalculous cholecystitis with with positive sonographic Richardson sign, gallbladder wall thickening, and pericholecystic fluid. 2. Hepatomegaly. No evidence of ascites in the upper abdomen. Dictated by: Dictated on workstation # [id number]
[2021-04-08] MEDS ORDERED: fentaNYL INJ 100 MCG/2 ML AMP IVP PRN ×2 (17:30→19:15)
[2021-04-08] MEDS ORDERED: PIPERACILLIN SODIUM/TAZOBACTAM 4.5 GM in NS (IVPB) 100 ML IV ONE (17:45)
[2021-04-08] MEDS ORDERED: FUROSEMIDE 40 MG/4 ML INJ (LASIX) IVP ONE (18:15)
--- NOTE | 2021-04-08 18:59 | Consultation - Surgery ---
DIOMEDES DE LA CRUZ MED STUDENT 04/08/219: History of Present Illness History of Present Illness Patient Consulted On(chandana/time) 04/08/21 18:50 Date Seen by Provider: Apr 08, 2021 Time Seen by Provider: 18:20 Reason for Visit: RUQ pain History of Present Illness I am seeing Ms. Salazar as a surgical consults for possible acute cholecystitis. The patient is pleasant confused. She is alert but not oriented x4. Her Son Jhony is in the room and was able to provide some history. He states he brought her into the ER today do to weakness and the inability to produce urine. He says the weakness seemed to get worse yesterday from her baseline, and he noticed her urine was very dark last night, and she had not gone today prior to coming into the ER. He tried to increase her fluids at home, but her weakness and confusion continued to get worse from her baseline. He does also explain that for the last week she has complained of some abdominal pain, but he attributed it to constipation, which he gave her a laxative for. He does not know if it has made a "big difference". She has a history of COVID in september and a left sided stroke in January with some mild residual weakness. Well talking to Jhony the patient began to complain of pain in her knees. The son validated this with a lengthy explanation of her arthirits in her knees. Per ER: General weakness, right upper abdominal pain, poor food and fluid intake for the past few days. Recently in the hospital for CVA. She has chronic atrial fibrillation on Eliquis. Allergies and Home Medications Allergies Coded Allergies: doxycycline (Unverified Allergy, Mild, 11/26/17) Home Medications ALPRAZolam 0.25 Mg Tab, 0.25 MG PO Q8H PRN for ANXIETY Prescribed by: MAAME LOMBARDO on 03/14/21 1020 Albuterol Sulfate 1 Puff Puff, 4 PUFF IH Q8H PRN for SHORTNESS OF BREATH, (Reported) Amitriptyline HCl 25 Mg Tablet, 25 MG PO HS, (Reported) Apixaban 5 Mg Tablet, 5 MG PO BID, (Reported) Carvedilol 3.125 Mg Tablet, 3.125 MG PO BID Prescribed by: MAAME LOMBARDO on 03/14/21 1020 Citalopram Hydrobromide 10 Mg Tablet, 10 MG PO DAILY, (Reported) Fluticasone/Vilanterol 1 Each Blst.w.dev, 1 PUFF IH DAILY, (Reported) Furosemide 40 Mg Tablet, 60 MG PO DAILY, (Reported) TAKES 1 & (40MG) TABS Gabapentin 300 Mg Capsule, 300 MG PO TID, (Reported) Hydrocodone Bit/Acetaminophen 1 Tab Tab, 1 EA PO Q6HR PRN for PAIN-MODERATE (5- 7) Prescribed by: MAAME LOMBARDO on 03/14/21 1020 Latanoprost 2.5 Ml Drops, 1 DROP OU HS, (Reported) Lisinopril 5 Mg Tablet, 2.5 MG PO DAILY Prescribed by: MAAME LOMBARDO on 03/14/21 1020 Meloxicam 7.5 Mg Tablet, 7.5 MG PO DAILY, (Reported) Naphazoline/Pheniramine 15 Ml Soln, 0 ML OS QID Prescribed by: MAAME LOMBARDO on 03/14/21 1020 Ondansetron 4 Mg Tab.rapdis, 4 MG PO Q6H PRN for NAUSEA/VOMITING-1ST LINE Prescribed by: MAAME LOMBARDO on 03/14/21 1020 Potassium Chloride 20 Meq Tablet.er, 20 MEQ PO DAILY, (Reported) Pravastatin Sodium 10 Mg Tablet, 10 MG PO HS, (Reported) Ropinirole HCl 1 Mg Tablet, 1 MG PO HS, (Reported) Sennosides/Docusate Sodium 1 Each Tablet, 1 EA PO BID Prescribed by: MAAME LOMBARDO on 03/14/21 1020 Spironolactone 25 Mg Tablet, 12.5 MG PO DAILY@0800 Prescribed by: MAAME LOMBARDO on 03/14/21 1020 Tramadol HCl 50 Mg Tablet, 50 MG PO Q12H PRN for PAIN-MODERATE (5-7) Prescribed by: MAAME LOMBARDO on 03/14/21 1020 Patient Home Medication List Home Medication List Reviewed: Yes Past Sbktsjw-Xhxmwv-Youlia Hx Patient Social History Smoking Status: Never a Smoker Recent Hopitalizations: No Alcohol Use?: No Have you traveled recently?: No Immunizations Up To Date Date of Pneumonia Vaccine: Oct 30, 2016 Date of Influenza Vaccine: Jun 24, 2020 Seasonal Allergies Seasonal Allergies: Yes Surgeries History of Surgeries: Yes Surgeries: Section, Pacemaker, Tonsillectomy Respiratory History of Respiratory Disorde: Yes Respiratory Disorders: Asthma, Sleep Apnea Cardiovascular History of Cardiac Disorders: Yes Cardiac Disorders: Atrial Fibrillation, High Cholesterol, Hypertension, Valvular Heart Disease (aortic stenosis) Neurological History of Neurological Disord: Yes (rest less leg syndrome) Neurological Disorders: Stroke Reproductive System Hx Reproductive Disorders: No Sexually Transmitted Disease: No HIV/AIDS: No Genitourinary History of Genitourinary Disor: No Gastrointestinal History of Gastrointestinal Di: Yes Gastrointestinal Disorders: Chronic Constipation Musculoskeletal History of Musculoskeletal Dis: Yes Musculoskeletal Disorders: Arthritis, Chronic Back Pain Endocrine History of Endocrine Disorders: No HEENT 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) HEENT Disorders: Glaucoma Loss of Vision: Bilateral Hearing Impairment: Hard of Hearing (left ) Cancer History of Cancer: No Psychosocial History of Psychiatric Problem: Yes Behavioral Health Disorders: Anxiety, Depression Integumentary History of Skin or Integumenta: No Blood Transfusions History of Blood Disorders: No Adverse Reaction to a Blood Tr: No (N/A) Family Medical History Significant Family History: Heart Disease (brother, mother), COPD (brother), Renal Disease (sister), Other Conditions/Hx (athiritis - mother) Review of Systems-General Constitutional: No fever; weakness EENTM: vision loss (left eye); No mouth pain Respiratory: No cough, No short of breath Cardiovascular: No chest pain, No palpitations Gastrointestinal: RUQ, constipation Genitourinary: decreased output Musculoskeletal: joint pain, muscle pain Skin: dryness; No rash Psychiatric/Neurological: Weakness, Other (confusion) Physical Exam-General Problems Physical Exam Vital Signs Vital Signs - First Documented 04/08/21 15:24 Temp 36.8 Pulse 61 Resp 25 B/P (MAP) 161/84 (109) Capillary Refill : Less Than 3 Seconds General Appearance: mild distress Eyes: Bilateral Eye EOMI HEENT: No scleral icterus (R), No scleral icterus (L); other (Mucus membranes are dry) Neck: non-tender, other (large, firm, nonmobile mass of left anterior superior neck near jawline) Respiratory: no respiratory distress, no accessory muscle use, decreased breath sounds (b/l), crackles (inspiratory crackles) Cardiovascular: regular rate, rhythm, systolic murmur (4/6 blowing systolic mumur) Peripheral Pulses: 2+ Radial Pulses (R), 2+ Radial Pulses (L) Gastrointestinal: No guarding, No rebound; tenderness (ruq) Back: no vertebral tenderness, decreased range of motion Extremities: normal capillary refill, pedal edema Neurologic/Psychiatric: herb counselor II-XII nml as tested, alert; No oriented x 3 Skin: warm/dry Lymphatic: no adenopathy (neck, axilla, groin) Data Review Labs Laboratory Tests 04/08/21 14:30: White Blood Count 7.8, Red Blood Count 3.62L, Hemoglobin 10.2L, Hematocrit 34L, Mean Corpuscular Volume 94, Mean Corpuscular Hemoglobin 28, Mean Corpuscular Hemoglobin Concent 30L, Red Cell Distribution Width 16.2H, Platelet Count 230, Mean Platelet Volume 10.9, Immature Granulocyte % (Auto) 0, Neutrophils (%) (Auto) 46, Lymphocytes (%) (Auto) 25, Monocytes (%) (Auto) 9, Eosinophils (%) (Auto) 20H, Basophils (%) (Auto) 1, Neutrophils # (Auto) 3.6, Lymphocytes # (Auto) 1.9, Monocytes # (Auto) 0.7, Eosinophils # (Auto) 1.6H, Basophils # (Auto) 0.1, Immature Granulocyte # (Auto) 0.0, Sodium Level 141, Potassium Level 4.4, Chloride Level 104, Carbon Dioxide Level 28, Anion Gap 9, Blood Urea Nitrogen 23H, Creatinine 1.09, Estimat Glomerular Filtration Rate 48, BUN/Creatinine Ratio 21, Glucose Level 89, Calcium Level 9.0, Corrected Calcium 9.2, Magnesium Level 2.3, Total Bilirubin 1.7H, Aspartate Amino Transf (AST/SGOT) 14, Alanine Aminotransferase (ALT/SGPT) 11, Alkaline Phosphatase 90, B-Type Natriuretic Peptide 1162.6H, Total Protein 6.7, Albumin 3.7 04/08/21 14:52: Urine Color YELLOW, Urine Clarity CLEAR, Urine pH 6.0, Urine Specific Laverne >=1.030, Urine Protein TRACEH, Urine Glucose (UA) NEGATIVE, Urine Ketones N EGATIVE, Urine Nitrite NEGATIVE, Urine Bilirubin NEGATIVE, Urine Urobilinogen 0.2, Urine Leukocyte Esterase NEGATIVE, Urine RBC (Auto) NEGATIVE, Urine RBC NONE, Urine WBC NONE, Urine Squamous Epithelial Cells RARE, Urine Crystals NONE, Urine Bacteria NEGATIVE, Urine Casts NONE, Urine Mucus NEGATIVE, Urine Culture Indicated NO Radiology Date of Exam:04/08/21 US GALLBLADDER [id number] EXAMINATION: US Abdomen limited. TECHNIQUE: Multiple real-time grayscale images were obtained over the right upper quadrant in various projections. REASON FOR EXAM: Right upper quadrant pain. COMPARISON: None. FINDINGS: The liver is prominent measuring 19.3 cm. There are no focal lesions. No intrahepatic biliary dilatation is present. The common bile duct is obscured. The main portal vein is hepatopedal. No gallstones are seen. There is gallbladder wall thickening measuring 0.5 cm. Pericholecystic fluid is seen.. The sonographic Richardson sign is positive. The visualized portion of the head of the pancreas are within normal limits. The body and tail of the pancreas are not well visualized due to overlying bowel gas. The visualized portions of the IVC and aorta appear normal. The right kidney measures approximately 10.4 cm in length and has a normal appearance. IMPRESSION: 1. Findings suspicious for acute acalculous cholecystitis with with positive sonographic Richardson sign, gallbladder wall thickening, and pericholecystic fluid. 2. Hepatomegaly. No evidence of ascites in the upper abdomen. Dictated by: Dictated on workstation # [id number] Dict: 04/08/21 1655 Trans: 04/08/21 1700 [facility] [id number] Interpreted by: PANCHO TREJO DO Electronically signed by: PANCHO TREJO DO 04/08/21 1700 Assessment/Plan Assessment/Plan Assessment/Plan RUQ most likely due to acute cholecystits Start Kaylin IV fluids pain control CT and ultrasound showed evidence of acute cholecystitis, and she did have some mild pain on exam. Plan is to take to OR sunday for cholecystectomy if medically stable LATRICE SIERRA DO 04/08/21 1954: History of Present Illness History of Present Illness Time Seen by Provider: 18:37 History of Present Illness Surgery asked to consult regarding possible Acute Cholecystitis with Cholelithiasis. Pt was seen in the ER with her son, at that time she was denying abdominal pain. However, her son stated she had been complaining of upper abdominal pain for the past few days. He states it is hard to tell what bothers her because she has constant leg pain (from her knees). Allergies and Home Medications Allergies Coded Allergies: doxycycline (Unverified Allergy, Mild, 11/26/17) Home Medications ALPRAZolam 0.25 Mg Tab, 0.25 MG PO Q8H PRN for ANXIETY Prescribed by: MAAME LOMBARDO on 03/14/21 1020 Albuterol Sulfate 1 Puff Puff, 4 PUFF IH Q8H PRN for SHORTNESS OF BREATH, (Reported) Amitriptyline HCl 25 Mg Tablet, 25 MG PO HS, (Reported) Apixaban 5 Mg Tablet, 5 MG PO BID, (Reported) Carvedilol 3.125 Mg Tablet, 3.125 MG PO BID Prescribed by: MAAME OLMBARDO on 03/14/21 1020 Citalopram Hydrobromide 10 Mg Tablet, 10 MG PO DAILY, (Reported) Fluticasone/Vilanterol 1 Each Blst.w.dev, 1 PUFF IH DAILY, (Reported) Furosemide 40 Mg Tablet, 60 MG PO DAILY, (Reported) TAKES 1 & (40MG) TABS Gabapentin 300 Mg Capsule, 300 MG PO TID, (Reported) Hydrocodone Bit/Acetaminophen 1 Tab Tab, 1 EA PO Q6HR PRN for PAIN-MODERATE (5- 7) Prescribed by: MAAME LOMBARDO on 03/14/21 1020 Latanoprost 2.5 Ml Drops, 1 DROP OU HS, (Reported) Lisinopril 5 Mg Tablet, 2.5 MG PO DAILY Prescribed by: MAAME LOMBARDO on 03/14/21 1020 Meloxicam 7.5 Mg Tablet, 7.5 MG PO DAILY, (Reported) Naphazoline/Pheniramine 15 Ml Soln, 0 ML OS QID Prescribed by: MAAME LOMBARDO on 03/14/21 1020 Ondansetron 4 Mg Tab.rapdis, 4 MG PO Q6H PRN for NAUSEA/VOMITING-1ST LINE Prescribed by: MAAME LOMBARDO on 03/14/21 1020 Potassium Chloride 20 Meq Tablet.er, 20 MEQ PO DAILY, (Reported) Pravastatin Sodium 10 Mg Tablet, 10 MG PO HS, (Reported) Ropinirole HCl 1 Mg Tablet, 1 MG PO HS, (Reported) Sennosides/Docusate Sodium 1 Each Tablet, 1 EA PO BID Prescribed by: MAAME LOMBARDO on 03/14/21 1020 Spironolactone 25 Mg Tablet, 12.5 MG PO DAILY@0800 Prescribed by: MAAME LOMBARDO on 03/14/21 1020 Tramadol HCl 50 Mg Tablet, 50 MG PO Q12H PRN for PAIN-MODERATE (5-7) Prescribed by: MAAME LOMBARDO on 03/14/21 1020 Patient Home Medication List Home Medication List Reviewed: Yes Past Pzniuro-Jgdamf-Tnuegj Hx Patient Social History Smoking Status: Never a Smoker Sexual Abuse: No Surgeries History of Surgeries: Yes Surgeries: Section, Pacemaker, Tonsillectomy Respiratory History of Respiratory Disorde: Yes Respiratory Disorders: Asthma, Sleep Apnea Cardiovascular History of Cardiac Disorders: Yes Cardiac Disorders: Atrial Fibrillation, High Cholesterol, Hypertension, Valvular Heart Disease (aortic stenosis) Neurological History of Neurological Disord: Yes (rest less leg syndrome) Neurological Disorders: Stroke Genitourinary History of Genitourinary Disor: Yes Genitourinary Disorders: Renal Failure Gastrointestinal History of Gastrointestinal Di: Yes Gastrointestinal Disorders: Gastroesophageal Reflux, Chronic Constipation Musculoskeletal History of Musculoskeletal Dis: Yes Musculoskeletal Disorders: Arthritis, Chronic Back Pain Endocrine History of Endocrine Disorders: No HEENT 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) HEENT Disorders: Glaucoma Loss of Vision: Bilateral Hearing Impairment: Hard of Hearing (left ) Cancer History of Cancer: No Psychosocial History of Psychiatric Problem: Yes Behavioral Health Disorders: Anxiety, Depression Family Medical History Significant Family History: Heart Disease (brother, mother), COPD (brother), Renal Disease (sister), Other Conditions/Hx (athiritis - mother) Review of Systems-General Constitutional: No diaphoresis, No fever; weakness EENTM: vision loss (left eye); No mouth pain, No epistaxis Respiratory: No cough, No short of breath Cardiovascular: No chest pain, No palpitations Gastrointestinal: RUQ, constipation; No jaundice, No nausea, No vomiting Genitourinary: decreased output, frequency Musculoskeletal: joint pain, muscle pain Skin: dryness; No rash Psychiatric/Neurological: Anxiety, Depressed, Weakness, Other (confusion) Physical Exam-General Problems Physical Exam General Appearance: mild distress, thin (chronically ill) Eyes: Bilateral Eye EOMI HEENT: No scleral icterus (R), No scleral icterus (L); other (Mucus membranes are dry) Neck: non-tender, other (large, firm, nonmobile mass of left anterior superior neck near jawline) Respiratory: no respiratory distress, no accessory muscle use, decreased breath sounds (b/l), crackles (inspiratory crackles), other (dullness to percussion on right base) Cardiovascular: regular rate, rhythm, systolic murmur (4/6 blowing systolic mumur) Gastrointestinal: No guarding, No rebound; tenderness (ruq), hepatomegaly; No spleenomegaly Back: no vertebral tenderness, decreased range of motion Extremities: no calf tenderness, normal capillary refill, pedal edema Neurologic/Psychiatric: herb counselor II-XII nml as tested, alert, disoriented x 3 Skin: normal color, warm/dry Lymphatic: no adenopathy (neck, axilla, groin) Data Review Radiology Date of Exam:04/08/21 CT ABDOMEN/PELVIS W PROCEDURE: CT abdomen and pelvis with contrast. TECHNIQUE: Multiple contiguous axial images were obtained through the abdomen and pelvis after administration of intravenous contrast. Auto Exposure Controls were utilized during the CT exam to meet ALARA standards for radiation dose reduction. All CT scans use one or more of the following dose optimizing techniques: automated exposure control, MA and/or KvP adjustment based on patient size and exam type or iterative reconstruction. DATE: April 08, 2021. COMPARISON: None. INDICATION: 81-year-old female, lower abdominal pain. FINDINGS: There is a moderate right pleural effusion and a small left pleural effusion. There is cardiomegaly. There are coronary artery calcifications. There are additional areas of atherosclerotic disease. There are predominantly linear opacities in the right middle lobe and right lower lobe likely reflecting atelectasis. The liver is unremarkable in size and contour. There is periportal edema. There is cholelithiasis. The gallbladder is mildly distended. There is pericholecystic fluid and generalized fluid in the right upper quadrant. There is no identified dilation of the common bile duct. The main pancreatic duct is not abnormally dilated. Unremarkable appearance of the pancreatic parenchyma. The spleen is normal in size. The adrenal glands are unremarkable. Unremarkable appearance of the renal parenchyma. The urinary collecting systems are not distended. There is no apparent urinary bladder wall thickening. There is a calcified lesion in the uterus likely reflecting a degenerating uterine leiomyoma. There is no identified abnormal distention of the intestinal tract. There is no identified free intracranial air. There is no drainable fluid collection. There is a small amount of free pelvic fluid. There is nonspecific subcutaneous edema at the level of the lower abdomen and also laterally at the level of the upper abdomen. 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 There are bilateral sacroiliac degenerative changes. There are multilevel advanced degenerative changes of the spine. IMPRESSION: CT abdomen and pelvis: 1. Cholelithiasis without gallbladder distention and pericholecystic fluid concerning for acute cholecystitis. Recommend correlation and further evaluation with nuclear medicine HIDA scan, if needed. 2. Moderate right and small left pleural effusion. Atelectasis in the right middle and left lower lobes. 3. Small amount of free pelvic fluid. 4. Areas of nonspecific subcutaneous edema without identified focal fluid collection. Dictated on workstation # [id number] Dict: 04/08/21 1653 Trans: 04/08/21 1701 [facility] [id number] Interpreted by: KATH VARGHESE MD Assessment/Plan Assessment/Plan Assessment/Plan RUQ pain - probable Acute Cholecystitis with cholelithiasis B/L Pleural effusions - R>L Mildly Anemic - Hg 10.2 Elevated Bilirubin - 1.7 Hx of Stroke - anticoagulated with Eliquis Plan to stop Eliquis, place on liquids, O2 as needed, IV ABX, pain control, anti-emetics as needed, IV fluids. Monitor pt's pain and labs, she may need Lasix for pleural effusion. It is hard to tell if pt actually has acute cholecystitis, because she states no pain at this time; but has pain when abdomen is palpated and CT/US looks like acute cholecystitis. Supervisory-Addendum Brief Verification & Attestation Participated in pt care: history, MDM, physical Personally performed: exam, history, MDM, supervision of care Care discussed with: Medical Student Procedures: n/a Verification and Attestation of Medical Student E/M Service A medical student performed and documented this service. I then reviewed and verified all information documented by the medical student and made modifications to such information, when appropriate. I personally performed a physical exam, medical decision making and then discussed any differences between the notes and made revisions as necessary to create one note. Latrice Sierra , 04/08/21 , 20:06 DIOMEDES DE LA CRUZ MED STUDENT Apr 08, 2021 18:59 LATRICE SIERRA DO Apr 08, 2021 19:54
[2021-04-08] MEDS ORDERED: LORazepam INJ 2 MG/ML (ATIVAN) VIAL ONE (19:05)
[2021-04-08] MEDS ORDERED: fentaNYL INJ 100 MCG/2 ML AMP ONE (19:05)
[2021-04-08] MEDS ORDERED: LORazepam INJ 2 MG/ML (ATIVAN) VIAL IVP PRN (19:15)
[2021-04-08 20:00] VITALS: BP 150/85
[2021-04-08] MEDS: CATHETER FLUSH 10 ML SYR IV SCH (22:27)
[2021-04-09] VITALS (7 sets, daily range): BP systolic 164–210; BP diastolic 81–112
[2021-04-09] MEDS: PIPERACILLIN/TAZO 4.5 GM/NS 100 ML IV SCH ×6 (01:14→16:42)
[2021-04-09] MEDS ORDERED: lisINopril 5 MG (PRINIVIL) TABLET ONE (05:37)
[2021-04-09] MEDS: lisINopril 5 MG (PRINIVIL) TABLET PO SCH (05:40)
[2021-04-09] MEDS: FUROSEMIDE 40 MG/4 ML INJ (LASIX) IV SCH (05:41)
[2021-04-09] MEDS: fentaNYL INJ 100 MCG/2 ML AMP IV PRN ×2 (05:41→17:40)
[2021-04-09] MEDS: CATHETER FLUSH 10 ML SYR IV SCH ×3 (06:01→22:22)
--- NOTE | 2021-04-09 06:42 | History & Physical-Hospitalist ---
History of Present Illness HPI/Chief Complaint This is a pleasantly confused 81 year old female admitted through the ED yesterday with decreased intake over the past several days and found to have acute cholecystitis in ED. Surgery is following patient. Patient has history of chronic atrial fibrillation on coreg and anti-coagulation at home. She has recently suffered a stroke and has some residual right extremity weakness. She was taken off of eliquis and started on zosyn. Overnight she is confused, but alert. She has no complaints this morning, but is unable to communicate well. Date Seen 04/09/21 Time Seen by a Provider: 06:40 Attending Physician Maria De Jesus Christine MD PCP Jason Boudreaux MD Referring Physician Date of Admission Apr 08, 2021 at 17:25 Home Medications & Allergies Home Medications Reviewed patient Home Medication Reconciliation performed by pharmacy medication reconciliations electrician technician and/or nursing. Patients Allergies have been reviewed. Allergies Allergies Coded Allergies doxycycline (Unverified Allergy, Mild, 11/26/17) Past Dvzyivb-Aqwwbm-Njmifj Hx Patient Social History Tobacco Use?: No Smoking Status: Never a Smoker Substance use?: No Alcohol Use?: No Pt feels they are or have been: No Immunizations Up To Date Date of Influenza Vaccine: Jun 24, 2020 First/Initial COVID19 Vaccinat: None Tetanus Booster (TDap): Unknown Hepatitis A: Yes Hepatitis B: Yes Date of Pneumonia Vaccine: Oct 30, 2016 Seasonal Allergies Seasonal Allergies: Yes Current Status status: No status: No Advance Directives: Unable to obtain Advance Directive Location: Home Communicates: Verbally Primary Language: French Preferred Spoken Language: French Is interpretation needed?: No Implanted or Applied Medical D: Pacemaker Past Medical History Surgeries: Section, Pacemaker, Tonsillectomy Asthma, Sleep Apnea Currently Using CPAP: No Atrial Fibrillation, High Cholesterol, Hypertension, Valvular Heart Disease (aortic stenosis) Stroke Sexually Transmitted Disease: No HIV/AIDS: No Renal Failure Gastroesophageal Reflux, Chronic Constipation Arthritis, Chronic Back Pain Glaucoma Loss of Vision: Bilateral Hearing Impairment: Hard of Hearing (left ) Anxiety, Depression Blood Disorders: No Adverse Reaction/Blood Tranf: No (N/A) Family Medical History Heart Disease (brother, mother), COPD (brother), Renal Disease (sister), Other Conditions/Hx (athiritis - mother) Review of Systems ROS-Unable to Obtain: obtained through nursing staff and notes as patient is unable to communicat Constitutional: No chills, No fever EENTM: No ear discharge, No hearing loss, No ear pain Respiratory: No cough, No dyspnea on exertion Gastrointestinal: RUQ, abdominal pain (RUQ) Musculoskeletal: back pain, joint swelling Skin: No change in color, No dryness, No lesions, No rash Psychiatric/Neurological: Denies Anxiety, Denies Depressed Physical Exam Physical Exam Vital Signs Vital Signs - First Documented 04/08/21 04/08/21 15:24 19:41 Temp 36.8 Pulse 61 Resp 25 B/P (MAP) 161/84 (109) Pulse Ox 94 O2 Delivery Nasal Cannula O2 Flow Rate 2.00 Capillary Refill : Less Than 3 Seconds Height, Weight, BMI Height: 5'4.00" Weight: 182lbs. 0.6oz. [id number]; 29.04 BMI Method:Stated General Appearance: No Apparent Distress, Other (alert but not oriented; talking about her baby) Eyes: Bilateral Eye Normal Inspection, Bilateral Eye PERRL HEENT: Normal ENT Inspection Neck: Full Range of Motion Respiratory: Chest Non Tender, Normal Breath Sounds, No Accessory Muscle Use, No Respiratory Distress Cardiovascular: No Edema, Systolic Murmur, Irregularly Irregular Gastrointestinal: Normal Bowel Sounds, Soft, Other (denies pain but grimaces with palpation of the abdomen not specific to RUQ) Back: Normal Inspection Extremity: Normal Capillary Refill, Normal Inspection, Normal Range of Motion Neurologic/Psychiatric: Alert; No Oriented x3 Skin: Normal Color, Warm/Dry Results Results/Procedures Labs Laboratory Tests 04/08/21 14:30 Patient resulted labs reviewed. Assessment/Plan Admission Diagnosis Acute cholecystitis. Admission Status: Inpatient Order (span 2 midnights) Reason for Inpatient Admission: Acute cholecystitis. Assessment and Plan 1. Acute cholecystitis- Surgery following. Plan for possible surgery tomorrow. Elevated bili. Afebrile. 2. Possible pulmonary edema- IV lasix given in ED. Diuresed some. On nasal cannula. Will titrate down as needed. 3. Chronic atrial fibrillation- Continued on coreg. Diagnosis/Problems Diagnosis/Problems (1) Atrial fibrillation (2) On Coumadin for atrial fibrillation Status: Chronic (3) Delirium Status: Acute (4) Acute cholecystitis Status: Acute MARIA DE JESUS CHRISTINE MD Apr 09, 2021 06:42
[2021-04-09 06:54] LABS: BASOPHILS # (AUTO) 0.1 10^3/uL (0.0-0.1); BASOPHILS % (AUTO) 1 % (0-10); EOSINOPHILS # (AUTO) 1.4 10^3/uL (0.0-0.3); EOSINOPHILS % (AUTO) 14 % (0-10); HEMATOCRIT 38 % (35-52); HEMOGLOBIN 11.3 g/dL (11.5-16.0); LYMPHOCYTES # (AUTO) 1.4 10^3/uL (1.0-4.0); LYMPHOCYTES % (AUTO) 14 % (12-44); MEAN CORPUSCULAR HEMOGLOBIN 28 pg (25-34); MEAN CORPUSCULAR HGB CONC 30 g/dL (32-36); MEAN CORPUSCULAR VOLUME 93 fL (80-99); MEAN PLATELET VOLUME 11.3 fL (9.0-12.2); MONOCYTES # (AUTO) 0.6 10^3/uL (0.0-1.0); MONOCYTES % (AUTO) 6 % (0-12); NEUTROPHILS # (AUTO) 6.4 10^3/uL (1.8-7.8); NEUTROPHILS % (AUTO) 65 % (42-75); PLATELET COUNT 261 10^3/uL (130-400)
[2021-04-09 07:21] LABS: ALBUMIN 3.9 GM/DL (3.2-4.5); POTASSIUM 4.1 MMOL/L (3.6-5.0)
[2021-04-09 07:22] LABS: CALCIUM 9.2 MG/DL (8.5-10.1)
[2021-04-09 07:24] LABS: TOTAL PROTEIN 7.2 GM/DL (6.4-8.2)
[2021-04-09 07:25] LABS: BILIRUBIN,TOTAL 2.6 MG/DL (0.1-1.0)
[2021-04-09 07:27] LABS: CREATININE SERUM 0.96 MG/DL (0.60-1.30)
[2021-04-09 07:30] LABS: ELLIPT/OVALOCYTES SLIGHT; EOSINOPHILS % (MANUAL) 13 %; HYPOCHROMASIA SLIGHT; LYMPHOCYTES % (MANUAL) 19 %; MONOCYTES % (MANUAL) 6 %; NEUTROPHILS % (MANUAL) 62 %
--- NOTE | 2021-04-09 09:10 | Progress Note - Surgery ---
DIOMEDES DE LA CRUZ MED STUDENT 04/09/21 0910: Subjective Date Seen by a Provider: Apr 09, 2021 Time Seen by a Provider: 08:00 Subjective/Events-last exam Patient is 81 year old female being followed for suspected acute cholecystitis with cholethiasis. She is pleasantly confused and cannot provide any meaningful history. She appears comfortable sitting up in chair eating some strawberry jello. She denies any forms of pain. Review of Systems General: No Night Sweats, No Appetite HEENT: No Head Aches, No Visual Changes Pulmonary: No Dyspnea, No Cough Cardiovascular: No: Chest Pain, Palpitations Gastrointestinal: No: Nausea, Vomiting Genitourinary: No Dysuria, No Frequency, No Hematuria Neurological: Weakness, Confusion Objective Exam Vital Signs Date Time Temp Pulse Resp B/P (MAP) Pulse Ox O2 Delivery O2 Flow Rate FiO2 04/09/21 07:28 36.6 59 26 191/86 (121) 93 Nasal Cannula 2.00 04/09/21 04:00 36.2 63 22 210/112 (144) 91 Nasal Cannula 2.00 04/09/21 00:40 95 Nasal Cannula 2.00 04/09/21 00:00 36.5 73 22 168/98 (121) 90 Nasal Cannula 2.00 04/08/21 20:00 36.5 69 22 150/85 (106) 94 Nasal Cannula 2.00 04/08/21 19:41 37.0 62 18 168/80 94 Nasal Cannula 2.00 04/08/21 15:24 36.8 61 25 161/84 (109) I & O 04/09/21 06:59 Intake Total 200 ml Output Total 1 ml Balance 199 ml Capillary Refill : Less Than 3 Seconds General Appearance: No Apparent Distress, Other (alert but not oriented; talking about her baby) HEENT: No Moist Mucous Membranes (but improved since yesterday) Neck: Full Range of Motion Respiratory: Chest Non Tender, No Accessory Muscle Use, No Respiratory Distress, Decreased Breath Sounds Cardiovascular: Systolic Murmur Peripheral Pulses: 2+ Radial Pulses (R), 2+ Radial Pulses (L) Gastrointestinal: No guarding, No rebound; tenderness (ruq) Extremity: Normal Capillary Refill; No Calf Tenderness Neurologic/Psychiatric: Alert; No Oriented x3 Skin: Normal Color, Warm/Dry Results Lab Laboratory Tests 04/08/21 14:30: White Blood Count 7.8, Red Blood Count 3.62L, Hemoglobin 10.2L, Hematocrit 34L, Mean Corpuscular Volume 94, Mean Corpuscular Hemoglobin 28, Mean Corpuscular Hemoglobin Concent 30L, Red Cell Distribution Width 16.2H, Platelet Count 230, Mean Platelet Volume 10.9, Immature Granulocyte % (Auto) 0, Neutrophils (%) (Auto) 46, Lymphocytes (%) (Auto) 25, Monocytes (%) (Auto) 9, Eosinophils (%) (Auto) 20H, Basophils (%) (Auto) 1, Neutrophils # (Auto) 3.6, Lymphocytes # (Auto) 1.9, Monocytes # (Auto) 0.7, Eosinophils # (Auto) 1.6H, Basophils # (Auto) 0.1, Immature Granulocyte # (Auto) 0.0, Sodium Level 141, Potassium Level 4.4, Chloride Level 104, Carbon Dioxide Level 28, Anion Gap 9, Blood Urea Nitrogen 23H, Creatinine 1.09, Estimat Glomerular Filtration Rate 48, BUN/Creatinine Ratio 21, Glucose Level 89, Calcium Level 9.0, Corrected Calcium 9.2, Magnesium Level 2.3, Total Bilirubin 1.7H, Aspartate Amino Transf (AST/SGOT) 14, Alanine Aminotransferase (ALT/SGPT) 11, Alkaline Phosphatase 90, B-Type Natriuretic Peptide 1162.6H, Total Protein 6.7, Albumin 3.7 04/08/21 14:52: Urine Color YELLOW, Urine Clarity CLEAR, Urine pH 6.0, Urine Specific Waldron >=1.030, Urine Protein TRACEH, Urine Glucose (UA) NEGATIVE, Urine Ketones NEGATIVE, Urine Nitrite NEGATIVE, Urine Bilirubin NEGATIVE, Urine Urobilinogen 0.2, Urine Leukocyte Esterase NEGATIVE, Urine RBC (Auto) NEGATIVE, Urine RBC NONE, Urine WBC NONE, Urine Squamous Epithelial Cells RARE, Urine Crystals NONE, Urine Bacteria NEGATIVE, Urine Casts NONE, Urine Mucus NEGATIVE, Urine Culture Indicated NO 04/09/21 06:45: White Blood Count 10.0, Red Blood Count 4.07, Hemoglobin 11.3L, Hematocrit 38, Mean Corpuscular Volume 93, Mean Corpuscular Hemoglobin 28, Mean Corpuscular Hemoglobin Concent 30L, Red Cell Distribution Width 16.2H, Platelet Count 261, Mean Platelet Volume 11.3, Immature Granulocyte % (Auto) 0, Neutrophils (%) (Auto) 65, Lymphocytes (%) (Auto) 14, Monocytes (%) (Auto) 6, Eosinophils (%) (Auto) 14H, Basophils (%) (Auto) 1, Neutrophils # (Auto) 6.4, Lymphocytes # (Auto) 1.4, Monocytes # (Auto) 0.6, Eosinophils # (Auto) 1.4H, Basophils # (Auto) 0.1, Immature Granulocyte # (Auto) 0.0, Sodium Level 141, Potassium Level 4.1, Chloride Level 100, Carbon Dioxide Level 28, Anion Gap 13, Blood Urea Nitrogen 20H, Creatinine 0.96, Estimat Glomerular Filtration Rate 56, BUN/Creatinine Ratio 21, Glucose Level 77, Calcium Level 9.2, Corrected Calcium 9.3, Total Bilirubin 2.6H, Aspartate Amino Transf (AST/SGOT) 19, Alanine Aminotransferase (ALT/SGPT) 13, Alkaline Phosphatase 94, Total Protein 7.2, Albumin 3.9, Neutrophils % (Manual) 62, Lymphocytes % (Manual) 19, Monocytes % (Manual) 6, Eosinophils % (Manual) 13, Hypochromasia SLIGHT, Elliptocytes SLIGHT Assessment/Plan Assessment/Plan Assessment/Plan RUQ pain - probable Acute Cholecystitis with cholelithiasis B/L Pleural effusions - R>L Mildly Anemic - Hg 10.2 Elevated Bilirubin - 1.7 Hx of Stroke - anticoagulated with Eliquis Hold Eliquis, continue liquids, NPO after midnight, O2 as needed, IV ABX, pain control, anti-emetics as needed, IV fluids. Bilirubin and WBC raised today, plan for cholecystectomy on sunday or sunday. LORENZO CHOW DO 04/09/21 1304: Subjective Time Seen by a Provider: 09:56 Subjective/Events-last exam Pt seen and examined, she is mildly confused and states she has no abdominal pain. Review of Systems General: No Night Sweats; Fatigue; No Appetite HEENT: No Head Aches, No Visual Changes Pulmonary: No Dyspnea, No Cough Cardiovascular: No: Chest Pain, Palpitations Gastrointestinal: Abdominal Pain; No: Nausea, Vomiting Neurological: Weakness, Confusion Objective Exam General Appearance: No Apparent Distress, Other (alert but not oriented; talking about her baby) HEENT: Moist Mucous Membranes (but improved since yesterday) Respiratory: Chest Non Tender, No Accessory Muscle Use, No Respiratory Distress, Decreased Breath Sounds Cardiovascular: Regular Rate, Rhythm, Systolic Murmur Gastrointestinal: soft; No guarding, No rebound; tenderness (ruq) Assessment/Plan Assessment/Plan Assessment/Plan RUQ pain - probable Acute Cholecystitis with cholelithiasis B/L Pleural effusions - R>L Mildly Anemic - improved today Hg 11.3 Elevated Bilirubin - worse today at 2.6 from 1.7 Hx of Stroke - anticoagulated with Eliquis Plan to continue to hold Eliquis, continue liquids, NPO after midnight, O2 as needed, IV ABX, pain control, anti-emetics as needed, IV fluids. Bilirubin and WBC raised today, plan for cholecystectomy tomorrow. I will talk to pt's son, I think because the Bilirubin is going up she would benefit from having her gallbladder removed. She still has multiple risks; not limited to pain, bleeding, infection, scar, damage to bowel or bile duct, respiratory failure or cardiac problems. Her WBC did not go up, but sometimes the elderly are unable to mount a good immune response and the CT and US looked bad; plus the bilirubin is worse. Supervisory-Addendum Brief Verification & Attestation Participated in pt care: history, MDM, physical Personally performed: exam, history, MDM, supervision of care Care discussed with: Medical Student Procedures: n/a Verification and Attestation of Medical Student E/M Service A medical student performed and documented this service. I then reviewed and verified all information documented by the medical student and made modifications to such information, when appropriate. I personally performed a physical exam, medical decision making and then discussed any differences between the notes and made revisions as necessary to create one note. Lorenzo Chow , 04/09/21 , 13:04 DIOMEDES DE LA CRUZ MED STUDENT Apr 09, 2021 09:10 LORENZO CHOW DO Apr 09, 2021 13:04
[2021-04-09] MEDS: RT-ALBUTEROL SULF 2.5 MG/3 ML PRE-MIX VIAL INH SCH ×2 (14:57→21:50)
[2021-04-09] MEDS ORDERED: RT-ALBUTEROL SULF 2.5 MG/3 ML PRE-MIX VIAL INH PRN (16:00)
[2021-04-09] MEDS: ONDANSETRON 4 MG/2 ML (SDV) Z0FRAN IV PRN (17:36)
[2021-04-10] VITALS (12 sets, daily range): BP systolic 118–176; BP diastolic 65–82
[2021-04-10] MEDS: fentaNYL INJ 100 MCG/2 ML AMP IV PRN ×2 (00:26→14:27)
[2021-04-10] MEDS: PIPERACILLIN/TAZO 4.5 GM/NS 100 ML IV SCH ×6 (01:19→17:52)
[2021-04-10] MEDS: RT-ALBUTEROL SULF 2.5 MG/3 ML PRE-MIX VIAL INH SCH ×4 (02:26→21:36)
[2021-04-10] MEDS: FUROSEMIDE 40 MG/4 ML INJ (LASIX) IV SCH (06:38)
[2021-04-10] MEDS: CATHETER FLUSH 10 ML SYR IV SCH ×3 (06:38→22:03)
[2021-04-10 06:45] LABS: BASOPHILS # (AUTO) 0.1 10^3/uL (0.0-0.1); BASOPHILS % (AUTO) 1 % (0-10); EOSINOPHILS # (AUTO) 0.3 10^3/uL (0.0-0.3); EOSINOPHILS % (AUTO) 3 % (0-10); HEMATOCRIT 34 % (35-52); HEMOGLOBIN 10.5 g/dL (11.5-16.0); LYMPHOCYTES # (AUTO) 1.1 10^3/uL (1.0-4.0); LYMPHOCYTES % (AUTO) 14 % (12-44); MEAN CORPUSCULAR HEMOGLOBIN 28 pg (25-34); MEAN CORPUSCULAR HGB CONC 31 g/dL (32-36); MEAN CORPUSCULAR VOLUME 91 fL (80-99); MEAN PLATELET VOLUME 11.5 fL (9.0-12.2); MONOCYTES # (AUTO) 0.7 10^3/uL (0.0-1.0); MONOCYTES % (AUTO) 9 % (0-12); NEUTROPHILS % (AUTO) 73 % (42-75); PLATELET COUNT 243 10^3/uL (130-400); WHITE BLOOD COUNT 8.2 10^3/uL (4.3-11.0)
[2021-04-10 06:49] LABS: ALBUMIN 3.4 GM/DL (3.2-4.5); POTASSIUM 3.2 MMOL/L (3.6-5.0)
[2021-04-10 06:50] LABS: CALCIUM 8.8 MG/DL (8.5-10.1)
[2021-04-10 06:51] LABS: TOTAL PROTEIN 6.2 GM/DL (6.4-8.2)
[2021-04-10 06:53] LABS: BILIRUBIN,TOTAL 2.8 MG/DL (0.1-1.0)
[2021-04-10 06:55] LABS: CREATININE SERUM 1.01 MG/DL (0.60-1.30)
[2021-04-10] MEDS: lisINopril 5 MG (PRINIVIL) TABLET PO SCH (09:00)
--- NOTE | 2021-04-10 09:00 | Progress Note - Surgery ---
DIOMEDES DE LA CRUZ MED STUDENT 04/10/21 0900: Subjective Date Seen by a Provider: Apr 10, 2021 Time Seen by a Provider: 07:30 Subjective/Events-last exam 81 year old female being followed for acute cholecystitis. Today she is pleasantly confused. Her only compliant is her knees hurt, and that "they would not let me get out of bed". She appears comfortable in no distress, sitting up in her chair. She has been NPO since midnight. Review of Systems General: No Chills, No Night Sweats HEENT: No Head Aches, No Sinus Congestion Pulmonary: No Dyspnea, No Cough Cardiovascular: No: Chest Pain, Palpitations Gastrointestinal: No: Nausea, Vomiting Genitourinary: No Hematuria Musculoskeletal: other (Knee pain b/l) Neurological: Confusion; No: Change in speech Objective Exam Vital Signs Date Time Temp Pulse Resp B/P (MAP) Pulse Ox O2 Delivery O2 Flow Rate FiO2 04/10/21 08:02 36.2 60 20 160/70 (100) 94 Nasal Cannula 2.00 04/10/21 03:50 36.1 63 17 167/72 (103) 94 Nasal Cannula 2.00 04/10/21 02:26 94 Nasal Cannula 2.00 04/10/21 00:36 36.3 60 19 138/73 (94) 94 Nasal Cannula 2.00 04/09/21 21:51 95 Nasal Cannula 2.00 04/09/21 20:59 96 Nasal Cannula 2.00 04/09/21 19:48 36.6 60 18 164/81 (108) 96 Nasal Cannula 2.00 04/09/21 16:21 2.00 04/09/21 15:53 37.0 61 20 192/84 (120) 97 Nasal Cannula 2.00 04/09/21 14:58 96 Nasal Cannula 2.00 04/09/21 13:52 2.00 04/09/21 13:40 36.4 64 96 28 04/09/21 11:35 36.4 64 20 184/89 (120) 96 Nasal Cannula 2.00 I & O 04/10/21 07:00 Intake Total 460 ml Output Total 3300 ml Balance -2840 ml Capillary Refill : Less Than 3 Seconds General Appearance: No Apparent Distress, Other (alert but not oriented) HEENT: Moist Mucous Membranes; No Scleral Icterus (L), No Scleral Icterus (R) Neck: Non Tender, Supple Respiratory: Chest Non Tender, No Accessory Muscle Use, No Respiratory Distress, Decreased Breath Sounds Cardiovascular: Regular Rate, Rhythm, Systolic Murmur (4/6 blowing) Peripheral Pulses: 2+ Radial Pulses (R), 2+ Radial Pulses (L) Gastrointestinal: soft; No guarding, No rebound; tenderness (ruq, grimace with deep RUQ palpation) Extremity: Normal Capillary Refill; No Calf Tenderness Neurologic/Psychiatric: Alert; No Oriented x3 Skin: Warm/Dry Results Lab Laboratory Tests 04/09/21 15:57: SARS-CoV-2 RNA (RT-PCR) Not Detected 04/10/21 05:26: White Blood Count 8.2, Red Blood Count 3.72L, Hemoglobin 10.5L, Hematocrit 34L, Mean Corpuscular Volume 91, Mean Corpuscular Hemoglobin 28, Mean Corpuscular Hemoglobin Concent 31L, Red Cell Distribution Width 15.9H, Platelet Count 243, Mean Platelet Volume 11.5, Immature Granulocyte % (Auto) 0, Neutrophils (%) (Auto) 73, Lymphocytes (%) (Auto) 14, Monocytes (%) (Auto) 9, Eosinophils (%) (Auto) 3, Basophils (%) (Auto) 1, Neutrophils # (Auto) 6.0, Lymphocytes # (Auto) 1.1, Monocytes # (Auto) 0.7, Eosinophils # (Auto) 0.3, Basophils # (Auto) 0.1, Immature Granulocyte # (Auto) 0.0, Sodium Level 141, Potassium Level 3.2L, Chloride Level 99, Carbon Dioxide Level 31, Anion Gap 11, Blood Urea Nitrogen 18, Creatinine 1.01, Estimat Glomerular Filtration Rate 53, BUN/Creatinine Ratio 18, Glucose Level 102, Calcium Level 8.8, Corrected Calcium 9.3, Total Bilirubin 2.8H, Aspartate Amino Transf (AST/SGOT) 17, Alanine Aminotransferase (ALT/SGPT) 12, Alkaline Phosphatase 77, Total Protein 6.2L, Albumin 3.4 Assessment/Plan Assessment/Plan Assessment/Plan RUQ pain - probable Acute Cholecystitis with cholelithiasis B/L Pleural effusions - R>L Mildly Anemic - stable Elevated Bilirubin - worse today at 2.8 from 2.6 Hx of Stroke - anticoagulated with Eliquis, continue to hold hypokalemic - replace Plan to continue to hold Eliquis, continue liquids, NPO after midnight, O2 as needed, IV ABX, pain control, anti-emetics as needed, IV fluids. Plan for cholecystectomy tomorrow. She still has multiple risks; not limited to pain, bleeding, infection, scar, damage to bowel or bile duct, respiratory failure or cardiac problems. Her WBC did not go up, but sometimes the elderly are unable to mount a good immune response and the CT and US looked bad; plus the bilirubin is worse. LORENZO CHOW DO 04/10/21 1300: Subjective Time Seen by a Provider: 10:35 Assessment/Plan Assessment/Plan Assessment/Plan Pt to OR for Lap yahir today. Supervisory-Addendum Brief Verification & Attestation Participated in pt care: history, MDM, physical Personally performed: exam, history, MDM, supervision of care Care discussed with: Medical Student Procedures: n/a Verification and Attestation of Medical Student E/M Service A medical student performed and documented this service. I then reviewed and verified all information documented by the medical student and made modifications to such information, when appropriate. I personally performed a physical exam, medical decision making and then discussed any differences between the notes and made revisions as necessary to create one note. Lorenzo Chow , 04/10/21 , 13:00 DIOMEDES DE LA CRUZ MED STUDENT Apr 10, 2021 09:00 LORENZO CHOW DO Apr 10, 2021 13:00
[2021-04-10] MEDS ORDERED: LIDOCAINE/EPI 1%-1:100,000 (XYLOCAINE) 20ML ONE (10:48)
[2021-04-10] MEDS: LACTATED RINGERS 1,000 ML IV PRN (11:15)
[2021-04-10] MEDS ORDERED: fentaNYL INJ 100 MCG/2 ML AMP ONE (11:46)
[2021-04-10] MEDS ORDERED: proPOfol 200 MG/20 ML (DIPRIVAN) VIAL IV ONE (11:46)
[2021-04-10] MEDS ORDERED: ROCURONIUM 10 MG/ML 5 ML SYRINGE IV ONE (11:46)
[2021-04-10] MEDS ORDERED: LIDOCAINE PF 2% 5 ML (XYLOCAINE) VIAL ONE (11:46)
[2021-04-10] MEDS ORDERED: ONDANSETRON 4 MG/2 ML (SDV) Z0FRAN ONE (11:46)
[2021-04-10] MEDS ORDERED: SEVOFLURANE (ULTANE) 15 ML INHAL SOLN ONE (11:57)
[2021-04-10] MEDS ORDERED: NEOSTIGMINE 3 MG/3 ML VIAL ONE (12:55)
[2021-04-10] MEDS ORDERED: GLYCOPYRROLATE 0.2 MG/ML (ROBINUL) 2 ML VIAL ONE (12:55)
[2021-04-10] MEDS ORDERED: morphine INJ 10 MG/ML 1ML (SYR OR VIAL) ONE (12:57)
[2021-04-10] MEDS: LACTATED RINGERS 1,000 ML IV SCH (12:57)
--- NOTE | 2021-04-10 12:59 | Progress Note-Post Operative ---
Post-Operative Progess Note Surgeon (s)/Fishing Worker (s) Surgeon LATRICE SIERRA DO Fishing Worker: MAGALI Lindquist Pre-Operative Diagnosis Acute yahir/yaihr Post-Operative Diagnosis same Procedure & Operative Findings Date of Procedure 04/10/21 Procedure Performed/Findings PROCEDURE: Laparoscopic cholecystectomy with intraoperative cholangiogram. COMPLICATIONS: None. PROCEDURE: The patient was taken to the operating suite and was prepped and draped in sterile fashion. A surgical pause was performed. Just superior to the umbilicus, a 12 mm incision was made. Dissection was taken down to the fascia, which was then scored and grasped with a Pernell and the abdomen was then entered. A 0 Vicryl suture was placed in a [id number] fashion and a Mendoza trocar was placed and secured. Pneumoperitoneum was achieved. A 5mm trochar place in the subxyphoid and 2 in the right upper quadrant. Patient had a very large liver going down into the RLQ and the gallbladder was very distended. There were adhesions from omentum stuck to the liver and coverting the gallbladder. These usually indicate cholecystitis attacks. Once these were freed up with bovie elctrocautery, then able to grasp the gallbladder and take it in the superior direction. Able to grasp at Gill's pouch and pull in the infero-lateral direction. The cystic duct, and cystic artery were then dissected out. Clip was placed on the distal portion of the cystic duct which was then partially transected. An arrow catheter was inserted into the duct. The cholangiogram was then performed. No filing defects and contrast made its way into the duodenum. Catheter removed. Clips were placed on proximal portion of the cystic duct and then the duct was then transected. Clips were placed along the proximal and distal portion of the cystic artery which was then transected. Hook cautery was used to dissect the gallbladder from the gallbladder fossa achieving hemostasis. The gallbladder was placed in an Endobag and removed through the 12 mm trocar site. The abdomen was then reinspected. Copious amounts of irrigation were used to irrigate the abdomen and there were no signs of active bleeding. Hemostasis had been achieved. The 12 mm fascial defect was then closed with 0 Vicryl suture that had been placed in a [id number] fashion. The abdomen was then desufflated, the trocars were removed. The abdomen was then washed and dried. The skin was then closed using 4-0 Monocryl in a subcuticular fashion. The abdomen was washed and dried and Skin Affix was place over incisions. Patient tolerated the procedure well without any complications and was taken to the recovery room in stable condition. Anesthesia Type GET Estimated Blood Loss Estimated blood loss (mL): less than 5ml Specimens/Packing Specimens Removed GB and contents LATRICE SIERRA DO Apr 10, 2021 12:59
--- NOTE | 2021-04-10 13:08 | Anesthesia-General Post-Op ---
General Patient Condition Mental Status/LOC: Same as Preop Cardiovascular: Satisfactory Nausea/Vomiting: Absent Respiratory: Satisfactory Pain: Controlled Complications: Absent Post Op Complications Complications None Follow Up Care/Instructions Patient Instructions None needed. Anesthesia/Patient Condition Patient Condition Patient is doing well, no complaints, stable vital signs, no apparent adverse anesthesia problems. No complications reported per nursing. LANETTE HERRERA CRNA Apr 10, 2021 13:08
[2021-04-10] MEDS ORDERED: ONDANSETRON 4 MG/2 ML (SDV) Z0FRAN IVP PRN (13:15)
[2021-04-10] MEDS ORDERED: MEPERIDINE (DEMEROL) INJ 50 MG/ML IVP ONE (13:15)
[2021-04-10] MEDS ORDERED: morphine INJ 10 MG/ML 1ML (SYR OR VIAL) IVP ONE (13:15)
--- NOTE | 2021-04-10 13:22 | Diagnostic Imaging Report ---
Comparison: 04/08/2021. Technique: 84 intraoperative fluoroscopic images of the right upper quadrant. Fluoroscopic Time: 15 seconds Findings: Intraoperative fluoroscopic images were obtained during cholecystectomy. Contrast is visualized in the common bile duct without dilation or persistent filling defect. Impression: Fluoroscopic intraoperative images obtained during cholecystectomy. Dictated by: Dictated on workstation # [id number]
--- NOTE | 2021-04-10 14:25 | Progress Note ---
Subjective HPI/CC On Admission Date Seen by Provider: Apr 10, 2021 Time Seen by Provider: 14:22 This is a pleasantly confused 81 year old female admitted through the ED yesterday with decreased intake over the past several days and found to have acute cholecystitis in ED. Surgery is following patient. Patient has history of chronic atrial fibrillation on coreg and anti-coagulation at home. She has recently suffered a stroke and has some residual right extremity weakness. She was taken off of eliquis and started on zosyn. Overnight she is confused, but alert. She has no complaints this morning, but is unable to communicate well. Subjective/Events-last exam Overnight patient remains stable. Afebrile. Bilirubin increased and patient taken for lap yahir this afternoon. Now back in room and uncomfortable holding her stomach. Objective Exam Vital Signs Vital Signs Date Time Temp Pulse Resp B/P (MAP) Pulse Ox O2 Delivery O2 Flow Rate FiO2 04/10/21 13:55 Nasal Cannula 2 04/10/21 13:55 36.5 18 142/82 (102) 96 04/10/21 08:02 60 04/09/21 13:40 28 Capillary Refill : Less Than 3 Seconds General Appearance: WD/WN, Mild Distress Respiratory: Chest Non Tender, Lungs Clear, Normal Breath Sounds Cardiovascular: Regular Rate, Rhythm, No Edema, Systolic Murmur Results/Procedures Lab Laboratory Tests 04/10/21 05:26 Patient resulted labs reviewed. Assessment/Plan Assessment and Plan Assess & Plan/Chief Complaint 1. Acute cholecystitis- Surgery following. Lap cholecystectomy today. Afebrile. 2. Possible pulmonary edema- IV lasix given in ED. Diuresed some. On nasal cannula. Will titrate down as needed. ECHO in AM. 3. Chronic atrial fibrillation- Continued on coreg. Holding blood thinner. Will restart when able per surgery. Diagnosis/Problems Diagnosis/Problems (1) Atrial fibrillation (2) On Coumadin for atrial fibrillation Status: Chronic (3) Delirium Status: Acute (4) Acute cholecystitis Status: Acute LUZ MARIA CHRISTINE MD Apr 10, 2021 14:25
[2021-04-10] MEDS ORDERED: KCL 20 MEQ TAB (K-DUR) PO ONE (14:30)
[2021-04-10] MEDS: ONDANSETRON 4 MG/2 ML (SDV) Z0FRAN IV PRN (15:06)
[2021-04-11] VITALS (7 sets, daily range): BP systolic 114–156; BP diastolic 60–78
[2021-04-11] MEDS: fentaNYL INJ 100 MCG/2 ML AMP IV PRN ×3 (01:43→16:41)
[2021-04-11] MEDS: PIPERACILLIN/TAZO 4.5 GM/NS 100 ML IV SCH ×6 (01:44→16:33)
[2021-04-11] MEDS: RT-ALBUTEROL SULF 2.5 MG/3 ML PRE-MIX VIAL INH SCH ×4 (02:11→21:47)
[2021-04-11 05:32] LABS: BASOPHILS % (AUTO) 0 % (0-10); EOSINOPHILS % (AUTO) 0 % (0-10); HEMATOCRIT 34 % (35-52); HEMOGLOBIN 10.5 g/dL (11.5-16.0); LYMPHOCYTES # (AUTO) 0.7 10^3/uL (1.0-4.0); LYMPHOCYTES % (AUTO) 9 % (12-44); MEAN CORPUSCULAR HEMOGLOBIN 28 pg (25-34); MEAN CORPUSCULAR HGB CONC 31 g/dL (32-36); MEAN CORPUSCULAR VOLUME 90 fL (80-99); MEAN PLATELET VOLUME 11.1 fL (9.0-12.2); MONOCYTES # (AUTO) 0.5 10^3/uL (0.0-1.0); MONOCYTES % (AUTO) 6 % (0-12); NEUTROPHILS # (AUTO) 6.4 10^3/uL (1.8-7.8); NEUTROPHILS % (AUTO) 84 % (42-75); PLATELET COUNT 253 10^3/uL (130-400); WHITE BLOOD COUNT 7.5 10^3/uL (4.3-11.0)
[2021-04-11 05:54] LABS: ALBUMIN 3.2 GM/DL (3.2-4.5)
[2021-04-11 05:55] LABS: POTASSIUM 3.2 MMOL/L (3.6-5.0)
[2021-04-11 05:56] LABS: CALCIUM 8.4 MG/DL (8.5-10.1)
[2021-04-11 05:57] LABS: TOTAL PROTEIN 5.7 GM/DL (6.4-8.2)
[2021-04-11 05:59] LABS: BILIRUBIN,TOTAL 2.1 MG/DL (0.1-1.0)
[2021-04-11] MEDS: CATHETER FLUSH 10 ML SYR IV SCH ×3 (06:06→20:05)
[2021-04-11] MEDS ORDERED: KCL 20 MEQ TAB (K-DUR) PO ONE (06:30)
[2021-04-11] MEDS: FUROSEMIDE 40 MG/4 ML INJ (LASIX) IV SCH (06:36)
--- NOTE | 2021-04-11 08:18 | Progress Note - Surgery ---
DIOMEDES DE LA CRUZ MED STUDENT 04/11/21 0818: Subjective Date Seen by a Provider: Apr 11, 2021 Time Seen by a Provider: 07:35 Subjective/Events-last exam Patient is 81 year old female s/p POD#1 cholecystectomy for acute cholecystits . Patient is in bed sleep comfortably, will come back later to see her. On visiting again patient is awake, but resting. She is pleasantly confused. She is not complaining of any pain at this time. Objective Exam Vital Signs Date Time Temp Pulse Resp B/P (MAP) Pulse Ox O2 Delivery O2 Flow Rate FiO2 04/11/21 03:58 36.2 69 22 128/68 (88) 95 Room Air 04/11/21 02:11 93 Nasal Cannula 3.00 04/11/21 00:07 37.2 60 20 114/60 (78) 93 Nasal Cannula 2.00 04/10/21 21:36 96 Nasal Cannula 3.00 04/10/21 20:00 94 Nasal Cannula 2.00 04/10/21 19:23 36.2 60 18 159/78 (105) 94 Nasal Cannula 2.00 04/10/21 16:00 36.6 62 20 176/81 (112) 95 Nasal Cannula 2.00 04/10/21 15:12 96 Nasal Cannula 3.00 04/10/21 13:55 Nasal Cannula 2 04/10/21 13:55 36.5 18 142/82 (102) 96 Nasal Cannula 2 04/10/21 13:50 18 145/78 (100) 96 Nasal Cannula 2 04/10/21 13:42 Nasal Cannula 2 04/10/21 13:40 18 148/77 (100) 94 Nasal Cannula 2 04/10/21 13:32 OxyMask 4 04/10/21 13:30 18 145/72 (96) 99 OxyMask 4 04/10/21 13:29 OxyMask 6 04/10/21 13:25 OxyMask 6 04/10/21 13:20 18 138/73 (94) 99 OxyMask 6 04/10/21 13:18 OxyMask 6 04/10/21 13:14 18 133/69 (90) 97 OxyMask 6 04/10/21 13:04 36.3 16 118/65 (82) 93 OxyMask 6 04/10/21 13:04 OxyMask 6 04/10/21 09:52 89 Nasal Cannula 2.00 04/10/21 08:30 89 Nasal Cannula 2.00 I & O 04/11/21 07:00 Intake Total 1220 ml Output Total 2200 ml Balance -980 ml Capillary Refill : Less Than 3 Seconds General Appearance: No Apparent Distress HEENT: Moist Mucous Membranes; No Scleral Icterus (L), No Scleral Icterus (R) Neck: Non Tender, Supple Respiratory: Chest Non Tender, Lungs Clear, Normal Breath Sounds Cardiovascular: Regular Rate, Rhythm, No Edema, Systolic Murmur Peripheral Pulses: 2+ Radial Pulses (R), 2+ Radial Pulses (L) Gastrointestinal: soft; No guarding, No rebound; tenderness (on palpation), other (Incision intact, dry, clean) Extremity: Normal Capillary Refill; No Calf Tenderness Neurologic/Psychiatric: Alert; No Oriented x3 Skin: Warm/Dry Results Lab Laboratory Tests 04/11/21 05:11: White Blood Count 7.5, Red Blood Count 3.78L, Hemoglobin 10.5L, Hematocrit 34L, Mean Corpuscular Volume 90, Mean Corpuscular Hemoglobin 28, Mean Corpuscular Hemoglobin Concent 31L, Red Cell Distribution Width 15.9H, Platelet Count 253, Mean Platelet Volume 11.1, Immature Granulocyte % (Auto) 0, Neutrophils (%) (Auto) 84H, Lymphocytes (%) (Auto) 9L, Monocytes (%) (Auto) 6, Eosinophils (%) (Auto) 0, Basophils (%) (Auto) 0, Neutrophils # (Auto) 6.4, Lymphocytes # (Auto) 0.7L, Monocytes # (Auto) 0.5, Eosinophils # (Auto) 0.0, Basophils # (Auto) 0.0, Immature Granulocyte # (Auto) 0.0, Sodium Level 141, Potassium Level 3.2L, Chloride Level 100, Carbon Dioxide Level 30, Anion Gap 11, Blood Urea Nitrogen 23H, Creatinine 1.00, Estimat Glomerular Filtration Rate 53, BUN/Creatinine Ratio 23, Glucose Level 123H, Calcium Level 8.4L, Corrected Calcium 9.0, Total Bilirubin 2.1H, Aspartate Amino Transf (AST/SGOT) 25, Alanine Aminotransferase (ALT/SGPT) 15, Alkaline Phosphatase 61, Total Protein 5.7L, Albumin 3.2 Microbiology 04/09/21 MRSA Screen - Final, Complete MRSA not isolated Assessment/Plan Assessment/Plan Assessment/Plan s/p Cholecystectomy pain control antiemetic advance diet as tolerated LORENZO CHOW DO 04/11/21 1554: Subjective Time Seen by a Provider: 12:21 Subjective/Events-last exam Pt seen and examined, she denies pain. She is still mildly confused. Review of Systems General: Fatigue, Malaise Pulmonary: No Dyspnea, No Cough Cardiovascular: No: Chest Pain, Palpitations Gastrointestinal: No: Nausea, Vomiting Objective Exam General Appearance: No Apparent Distress, Thin Respiratory: Lungs Clear, Normal Breath Sounds Cardiovascular: Regular Rate, Rhythm, Systolic Murmur Gastrointestinal: soft; No guarding, No rebound; tenderness (on palpation), other (Incision intact, dry, clean) Assessment/Plan Assessment/Plan Assessment/Plan s/p Cholecystectomy pain control antiemetic advance diet as tolerated Supervisory-Addendum Brief Verification & Attestation Participated in pt care: history, MDM, physical Personally performed: exam, history, MDM, supervision of care Care discussed with: Medical Student Procedures: n/a Verification and Attestation of Medical Student E/M Service A medical student performed and documented this service. I then reviewed and verified all information documented by the medical student and made modifications to such information, when appropriate. I personally performed a physical exam, medical decision making and then discussed any differences bet ween the notes and made revisions as necessary to create one note. Lorenzo Chow , 04/11/21 , 15:54 DIOMEDES DE LA CRUZ MED STUDENT Apr 11, 2021 08:18 LORENZO CHOW DO Apr 11, 2021 15:54
[2021-04-11] MEDS: lisINopril 5 MG (PRINIVIL) TABLET PO SCH (08:24)
[2021-04-11] MEDS ORDERED: ALPR0.254 PO (09:53)
[2021-04-11] MEDS ORDERED: TRAM50TA3 PO (09:53)
[2021-04-11] MEDS ORDERED: ONDA4TAB11 PO (09:53)
[2021-04-11] MEDS ORDERED: NPPH15OP OS (09:53)
[2021-04-11] MEDS ORDERED: SENN1TAB33 PO (09:53)
[2021-04-11] MEDS ORDERED: LISI-729 PO (09:53)
[2021-04-11] MEDS ORDERED: SPIR25TA5 PO (09:53)
[2021-04-11] MEDS ORDERED: ACHD5005 PO (09:53)
[2021-04-11] MEDS ORDERED: CARV3.122 PO (09:53)
--- NOTE | 2021-04-11 13:25 | Progress Note ---
Subjective Subjective Date Seen by Provider: Apr 11, 2021 Time Seen by Provider: 07:00 No overnight events. Patient denies any pain this AM. Review of Systems ROS Unable to Obtain: obtained through nursing staff and notes as patient is unable to communicat General: No Chills, No Night Sweats HEENT: No Head Aches, No Sinus Congestion Pulmonary: No Dyspnea, No Cough Cardiovascular: No: Chest Pain, Palpitations Gastrointestinal: No: Nausea, Vomiting Genitourinary: No Hematuria Musculoskeletal: other (Knee pain b/l) Neurological: Confusion; No: Change in speech Objective Exam Vital Signs Vital Signs Date Time Temp Pulse Resp B/P (MAP) Pulse Ox O2 Delivery O2 Flow Rate FiO2 04/11/21 12:38 36.6 60 18 156/70 (98) 95 Room Air 04/11/21 10:29 96 Nasal Cannula 3.00 04/11/21 08:21 36.9 66 18 150/78 (102) 96 Room Air 04/11/21 08:00 96 Nasal Cannula 3.00 04/11/21 03:58 36.2 69 22 128/68 (88) 95 Room Air 04/11/21 02:11 93 Nasal Cannula 3.00 04/11/21 00:07 37.2 60 20 114/60 (78) 93 Nasal Cannula 2.00 04/10/21 21:36 96 Nasal Cannula 3.00 04/10/21 20:00 94 Nasal Cannula 2.00 04/10/21 19:23 36.2 60 18 159/78 (105) 94 Nasal Cannula 2.00 04/10/21 16:00 36.6 62 20 176/81 (112) 95 Nasal Cannula 2.00 04/10/21 15:12 96 Nasal Cannula 3.00 04/10/21 13:55 Nasal Cannula 2 04/10/21 13:55 36.5 18 142/82 (102) 96 Nasal Cannula 2 04/10/21 13:50 18 145/78 (100) 96 Nasal Cannula 2 04/10/21 13:42 Nasal Cannula 2 04/10/21 13:40 18 148/77 (100) 94 Nasal Cannula 2 04/10/21 13:32 OxyMask 4 04/10/21 13:30 18 145/72 (96) 99 OxyMask 4 04/10/21 13:29 OxyMask 6 I & O 04/11/21 07:00 Intake Total 1220 ml Output Total 2200 ml Balance -980 ml General Appearance: No Apparent Distress Eyes: Bilateral Eye Normal Inspection, Bilateral Eye PERRL, Bilateral Eye EOMI HEENT: Moist Mucous Membranes; No Scleral Icterus (L), No Scleral Icterus (R) Neck: Non Tender, Supple Respiratory: Chest Non Tender, Lungs Clear, Normal Breath Sounds Cardiovascular: Regular Rate, Rhythm, No Edema, Systolic Murmur Gastrointestinal: Normal Bowel Sounds, Soft, Other (denies pain but grimaces with palpation of the abdomen not specific to RUQ) Back: Normal Inspection Extremity: Normal Capillary Refill; No Calf Tenderness Neurologic/Psychiatric: Alert; No Oriented x3 Skin: Warm/Dry Results Lab Laboratory Tests 04/11/21 05:11: White Blood Count 7.5, Red Blood Count 3.78L, Hemoglobin 10.5L, Hematocrit 34L, Mean Corpuscular Volume 90, Mean Corpuscular Hemoglobin 28, Mean Corpuscular Hemoglobin Concent 31L, Red Cell Distribution Width 15.9H, Platelet Count 253, Mean Platelet Volume 11.1, Immature Granulocyte % (Auto) 0, Neutrophils (%) (Auto) 84H, Lymphocytes (%) (Auto) 9L, Monocytes (%) (Auto) 6, Eosinophils (%) (Auto) 0, Basophils (%) (Auto) 0, Neutrophils # (Auto) 6.4, Lymphocytes # (Auto) 0.7L, Monocytes # (Auto) 0.5, Eosinophils # (Auto) 0.0, Basophils # (Auto) 0.0, Immature Granulocyte # (Auto) 0.0, Sodium Level 141, Potassium Level 3.2L, Chloride Level 100, Carbon Dioxide Level 30, Anion Gap 11, Blood Urea Nitrogen 23H, Creatinine 1.00, Estimat Glomerular Filtration Rate 53, BUN/Creatinine Ratio 23, Glucose Level 123H, Calcium Level 8.4L, Corrected Calcium 9.0, Total Bilirubin 2.1H, Aspartate Amino Transf (AST/SGOT) 25, Alanine Aminotransferase (ALT/SGPT) 15, Alkaline Phosphatase 61, Total Protein 5.7L, Albumin 3.2 Microbiology 04/09/21 MRSA Screen - Final, Complete MRSA not isolated Assessment/Plan Assessment/Plan Assessment and Plan case management consulted to work on discharge planning as I think she needs to go through rehab PT/OT if she wants to return safely. Doing well overall. replacing potassium. monitor mental status Patient and son have talked with hospice recently- the week prior to admission. Problems: (1) Acute cholecystitis Assessment & Plan: s/p lap yahir 04/10/21 (2) Atrial fibrillation (3) Delirium (4) Hypokalemia JUSTIN JOHNSON MD Apr 11, 2021 13:25
[2021-04-11] MEDS: ONDANSETRON 4 MG/2 ML (SDV) Z0FRAN IV PRN (20:04)
[2021-04-12] VITALS (7 sets, daily range): BP systolic 128–178; BP diastolic 67–86
[2021-04-12] MEDS: fentaNYL INJ 100 MCG/2 ML AMP IV PRN ×3 (00:08→08:44)
[2021-04-12] MEDS: PIPERACILLIN/TAZO 4.5 GM/NS 100 ML IV SCH ×6 (01:01→16:44)
[2021-04-12] MEDS: RT-ALBUTEROL SULF 2.5 MG/3 ML PRE-MIX VIAL INH SCH ×4 (02:18→18:37)
[2021-04-12] MEDS: CATHETER FLUSH 10 ML SYR IV SCH ×3 (06:00→22:11)
[2021-04-12] MEDS: lisINopril 5 MG (PRINIVIL) TABLET PO SCH (08:39)
--- NOTE | 2021-04-12 08:49 | Progress Note - Surgery ---
DIOMEDES DE LA CRUZ MED STUDENT 04/12/21 0849: Subjective Date Seen by a Provider: Apr 12, 2021 Time Seen by a Provider: 08:20 Subjective/Events-last exam Patient is 81 year old female s/p POD#2 cholecystectomy. She is up in bed eating breakfast, sitting comfortable on 1L by CA. She is confused and slightly agitated this morning. She does complain of pain, "oww my tummy".This is her only complaint and her understanding and communication is limited due to cognition. Review of Systems General: No Chills, No Night Sweats Pulmonary: No Dyspnea, No Cough Cardiovascular: No: Chest Pain Gastrointestinal: Abdominal Pain; No: Nausea, Vomiting Neurological: Confusion; No: Change in speech Objective Exam Vital Signs Date Time Temp Pulse Resp B/P (MAP) Pulse Ox O2 Delivery O2 Flow Rate FiO2 04/12/21 03:53 36.6 60 22 146/78 (100) 92 Nasal Cannula 1.00 04/12/21 02:18 96 Nasal Cannula 1.00 04/11/21 23:30 36.1 60 20 147/64 (91) 92 Nasal Cannula 1.00 04/11/21 21:47 94 Nasal Cannula 1.00 04/11/21 20:15 36.2 63 22 152/75 (100) 94 Room Air 04/11/21 20:05 94 Nasal Cannula 2.50 04/11/21 16:00 36.2 67 20 143/68 (93) 92 Room Air 04/11/21 15:40 1.00 04/11/21 15:37 98 Nasal Cannula 3.00 04/11/21 12:38 36.6 60 18 156/70 (98) 95 Room Air 04/11/21 10:29 96 Nasal Cannula 3.00 I & O 04/12/21 07:00 Intake Total 860 ml Output Total 1100 ml Balance -240 ml Capillary Refill : Less Than 3 Seconds General Appearance: No Apparent Distress, Thin HEENT: Moist Mucous Membranes; No Scleral Icterus (L), No Scleral Icterus (R) Neck: Non Tender, Supple Respiratory: Lungs Clear, Normal Breath Sounds Cardiovascular: Regular Rate, Rhythm, Systolic Murmur Peripheral Pulses: 2+ Radial Pulses (R), 2+ Radial Pulses (L) Gastrointestinal: soft; No guarding, No rebound; tenderness (reports pain over epigastric region), other (Incision intact, dry, clean) Extremity: Normal Capillary Refill; No Calf Tenderness Neurologic/Psychiatric: Alert; No Oriented x3 Skin: Warm/Dry Results Lab Microbiology 04/09/21 MRSA Screen - Final, Complete MRSA not isolated Assessment/Plan Assessment/Plan Assessment/Plan s/p Cholecystectomy pain control antiemetic advance diet as tolerated Patient is recovering well, her communication and understanding is limited. director of women's services working with placement on placement, son would like referral sent to the [facility], since she has been there before. Plan to discharge when accepted. LORENZO CHOW DO 04/12/21 1240: Subjective Time Seen by a Provider: 11:27 Subjective/Events-last exam Pt seen and examined, states she is having some pain across upper abdomen. Review of Systems General: No Chills, No Night Sweats Pulmonary: No Dyspnea, No Cough Cardiovascular: No: Chest Pain Objective Exam General Appearance: No Apparent Distress, Thin HEENT: No Scleral Icterus (L), No Scleral Icterus (R) Respiratory: Lungs Clear, Normal Breath Sounds Cardiovascular: Regular Rate, Rhythm, Systolic Murmur Gastrointestinal: soft; No guarding, No rebound; tenderness (reports pain over epigastric region), other (Incision intact, dry, clean) Assessment/Plan Assessment/Plan Assessment/Plan s/p Cholecystectomy pain control antiemetic advance diet as tolerated Patient is recovering well, her communication and understanding is limited. director of women's services working with placement on placement, son would like referral sent to the [facility], since she has been there before. Plan to discharge when accepted. Will stop Fentanyl and write for Hydrocodone Supervisory-Addendum Brief Verification & Attestation Participated in pt care: history, MDM, physical Personally performed: exam, history, MDM, supervision of care Care discussed with: Medical Student Procedures: n/a Verification and Attestation of Medical Student E/M Service A medical student performed and documented this service. I then reviewed and verified all information documented by the medical student and made modifications to such information, when appropriate. I personally performed a physical exam, medical decision making and then discussed any differences between the notes and made revisions as necessary to create one note. Lorenzo Chow , 04/12/21 , 12:40 DIOMEDES DE LA CRUZ MED STUDENT Apr 12, 2021 08:49 LORENZO CHOW DO Apr 12, 2021 12:40
[2021-04-12] MEDS: ONDANSETRON 4 MG/2 ML (SDV) Z0FRAN IV PRN (10:35)
--- NOTE | 2021-04-12 10:55 | Occupational Therapy Eval ---
OT Evaluation-General/PLF Medical Diagnosis Admission Date Apr 08, 2021 at 17:25 Medical Diagnosis: Acute chylecystitis/gallbladder removal Onset Date: Apr 08, 2021 Therapy Diagnosis Therapy Diagnosis: Weakness, Decreased ADL skills Height/Weight Height (Feet): 5 Height (Inches): 4.00 Weight (Pounds): 182 Weight (Ounces): 0.6 Precautions Precautions/Isolations: Fall Prevention, Contact/Enteric Isolation, Pressure Ulcer Weight Bear Status Weight Bearing Restriction: Weight Bearing/Tolerated Referral Physician: Dr. Boudreaux Referral Reason: Activity Tolerance, Self Care, Evaluation/Treatment, Strengthening/ROM Medical History Pertinent Medical History: Atrial Fib, Arthritis, CVA, GERD, HTN Additional Medical History Aortic stenosis Current History Pt. had surgery for gallbladder removal. Reviewed History: Yes Social History Home: Skilled Nursing Current Living Status: Entry Into Home: Level Entry ADL-Prior Level of Function SCALE: Activities may be completed with or without assistive devices. 9-Vfjipgclgn-meibljy completes the activity by him/herself with no assistance from a helper. 5-Set-up or Clean-up Assistance-helper sets up or cleans up; patient completes activity. [place] assists only prior to or following the activity. 4-Supervision or Touching Assistance-helper provides verbal cues and/or touching/steadying and/or contact guard assistance as patient completes activity. Assistance may be provided throughout the activity or intermittently. 3-Partial/Moderate Assistance-helper does LESS THAN HALF the effort. [place] lifts, holds or supports trunk or limbs, but provides less than half the effort. 2-Substantial/Maximal Assistance-helper does MORE THAN HALF the effort. [place] lifts or holds trunk or limbs and provides more than half the effort. 1-Kqhojgfxt-ibuzig does ALL the effort. Patient does none of the effort to complete the activity. Or, the assistance of 2 or more helpers is required for the patient to complete the activity. If activity was not attempted, code reason: 7-Patient Refused. 9-Not Applicable-not attempted and the patient did not perform the activity before the current illness, exacerbation or injury. 10-Not Attempted due to Environmental Limitations-(lack of equipment, weather restraints, etc.). 88-Not Attempted due to Medical Conditions or Safety Concerns. ADL PLOF Comments Pt. has full assistance for ADL skills. Self Care: Needed Some Help Functional Cognition: Needed Some Help OT Current Status Subjective Pt. upset and nauseated. Nursing giving Zofran when therapy entered room. Pt. states, "I don't want to do this," but does participate somewhat with therapy. Mental Status/Objective Patient Orientation: Confused Attachments: IV, Oxygen Current Pt. unable to follow cues for UE ROM and strength testing. ADL-Treatment On/Off Footwear (QC): 1 Toileting Hygiene (QC): 1 (Per clinical judgement.) Other Treatments OT/PT co-treat due to need of skilled clinicians x 2 for poor processing, poor endurance, confusion, and fatigue. Pt. transfers supine-sit with min assist, but then requires max cues for encouragement, and mod x 2 for sit-stand. While standing at walker, pt. becomes tearful, and with encouragement to take steps, states, "I can't," and sits back down on bed. Pt. encouraged to stand again but wont and is tearful. Max x 2 for sit-supine. Dependent x 2 for bed mobility. All needs met and pt. positioned to comfort level. Education OT Patient Education: Correct positioning, Modified ADL techniques, Progress toward Goal/Update tx plan, Purpose of tx/functional activities, Reviewed precautions, Rehab process, Transfer techniques Teaching Recipient: Patient Response to Teaching: Reinforcement Needed OT Prison Goals Prison Goals Time Frame: Apr 19, 2021 Eating (QC): 3 Oral Hygiene (QC): 3 Upper Body Dressing (QC): 3 Additional Goals: 3-ImproveStrength/Katherine 1=Demonstrate adherence to instructed precautions during ADL tasks. 2=Patient will verbalize/demonstrate understanding of assistive devices/modifications for ADL. 3=Patient will improve strength/tolerance for activity to enable patient to perform ADL's. OT Education/Plan Problem List/Assessment Assessment: Decreased Activ Tolerance, Decreased UE Strength, Dependent Transfers, Impaired Bed Mobility, Impaired Cognition, Impaired Funct Balance, Impaired I ADL's, Impaired Self-Care Skills Discharge Recommendations Plan/Recommendations: Continue POC Therapy Discharge Recommendati: 24 Hour Supervision, Post Acute OT Treatment Plan/Plan of Care Treatment,Training & Education: Yes Patient would benefit from OT for education, treatment and training to promote independence in ADL's, mobility, safety and/or upper extremity function for ADL's. Plan of Care: ADL Retraining, Functional Mobility, UE Funct Exercise/Act Treatment Duration: Apr 19, 2021 Frequency: 5 times per week Estimated Hrs Per Day: .25 hour per day Agreement: Yes Rehab Potential: Guarded Time/GCodes Start Time: 10:30 Stop Time: 10:42 Total Time Billed (hr/min): 12 Billed Treatment Time 1, EVH Co-treat with PT CAMPBELL HAGER OT Apr 12, 2021 10:55
--- NOTE | 2021-04-12 11:35 | Physical Therapy Evaluation ---
PT Evaluation-General Medical Diagnosis Admission Date Apr 08, 2021 at 17:25 Medical Diagnosis: Acute chylecystitis/gallbladder removal Onset Date: Apr 10, 2021 Therapy Diagnosis Therapy Diagnosis: impaired mobility, strength, endurance Height/Weight Height (Feet): 5 Height (Inches): 4.00 Weight (Pounds): 182 Weight (Ounces): 0.6 Precautions Precautions/Isolations: Fall Prevention, Contact/Enteric Isolation, Pressure Ulcer Weight Bear Status Right Lower Extremity: Right Weight Bearing/Tolerated Left Lower Extremity: Left Weight Bearing/Tolerated Referral Physician: Dr. Boudreaux Reason for Referral: Evaluation/Treatment Medical History Pertinent Medical History: Atrial Fib, Arthritis, CVA, GERD, HTN Additional Medical History Past Medical History Surgeries: Section, Pacemaker, Tonsillectomy Asthma, Sleep Apnea Currently Using CPAP: No Atrial Fibrillation, High Cholesterol, Hypertension, Valvular Heart Disease (aortic stenosis) Stroke Sexually Transmitted Disease: No HIV/AIDS: No Renal Failure Gastroesophageal Reflux, Chronic Constipation Arthritis, Chronic Back Pain Glaucoma Loss of Vision: Bilateral Hearing Impairment: Hard of Hearing (left ) Anxiety, Depression Reviewed History: Yes Social History Home: [facility] Current Living Status: Entry Into Home: Level Entry Prior Prior Level of Function SCALE: Activities may be completed with or without assistive devices. 0-Hoiegzmerx-hlwvhjb completes the activity by him/herself with no assistance from a helper. 5-Set-up or Clean-up Assistance-helper sets up or cleans up; patient completes activity. [place] assists only prior to or following the activity. 4-Supervision or Touching Assistance-helper provides verbal cues and/or touching/steadying and/or contact guard assistance as patient completes activity. Assistance may be provided throughout the activity or intermittently. 3-Partial/Moderate Assistance-helper does LESS THAN HALF the effort. [place] lifts, holds or supports trunk or limbs, but provides less than half the effort. 2-Substantial/Maximal Assistance-helper does MORE THAN HALF the effort. [place] lifts or holds trunk or limbs and provides more than half the effort. 9-Fchzybirb-foeqpw does ALL the effort. Patient does none of the effort to complete the activity. Or, the assistance of 2 or more helpers is required for the patient to complete the activity. If activity was not attempted, code reason: 7-Patient Refused. 9-Not Applicable-not attempted and the patient did not perform the activity bef ore the current illness, exacerbation or injury. 10-Not Attempted due to Environmental Limitations-(lack of equipment, weather r estraints, etc.). 88-Not Attempted due to Medical Conditions or Safety Concerns. unknown PT Evaluation-Current Subjective Patient in bed pre tx, agrees to PT, nurse states she has been nauseated and has an emesis basin by her in bed, patient has no complaints of pain. Pt/Family Goals none stated Objective Patient Orientation: Person, Confused Attachments: Oxygen, IV ROM/Strength ROM Lower Extremities WNL Strength Lower Extremities unable to assess, patient cannot follow directions Sensory Vision: Wears Glasses Hearing: Impaired Transfers Roll Left to Right (QC): 2 Sit to Lying (QC): 2 Lying to Sitting/Side of Bed(Q: 2 Sit to Stand (QC): 2 Patient was able to sit to the side of the bed with max assist, stood once with max assist for only about 10 seconds, not able to ambulate, has audible crepitus in her knees, after sitting patient began sobbing from pain in her knees, layed back down. Balance Sitting Static: Fair Sitting Dynamic: Fair Standing Static: Poor Assessment/Needs Patient in bed post tx with nurse call, phone, tray, all needs met, bed alarm on. Patient has impaired mobility, strength, endurance. Patient is max assist for functional mobility, was not able to ambulate today. Rehab Potential: Guarded PT Intermediate Goals Intermediate Goals PT Test Conductor Goals Time Frame: Apr 19, 2021 Roll Left & Right (QC): 3 Sit to Lying (QC): 3 Lying-Sitting on Side/Bed(QC): 3 Sit to Stand (QC): 3 Chair/Ouv-ud-Ppcbr Xfer(QC): 3 PT Plan Problem List Problem List: Activity Tolerance, Functional Strength, Safety, Balance, Gait, Transfer, Bed Mobility, ROM Treatment/Plan Treatment Plan: Continue Plan of Care Treatment Plan: Bed Mobility, Education, Functional Activity Katherine, Functional Strength, Gait, Safety, Therapeutic Exercise, Transfers Treatment Duration: Apr 19, 2021 Frequency: 6 times per week Estimated Hrs Per Day: .25 hour per day Patient and/or Family Agrees t: Yes Safety Risks/Education Patient Education: Correct Positioning, Safety Issues Teaching Recipient: Patient Teaching Methods: Demonstration, Discussion Response to Teaching: Reinforcement Needed Discharge Recommendations Plan Patient will perform bed mobility and transfer training, balance and endurance training, functional strengthening, gait training, and education, to improve functional mobility and independence at home. Therapy Discharge Recommendati: 24 Hour Supervision Time/GCodes Time In: 1030 Time Out: 1042 Total Billed Treatment Time: 12 Total Billed Treatment 1 visit YOGESH Jimenez' JOSIE HAWKINS PT Apr 12, 2021 11:35
[2021-04-12] MEDS: KCL 10 MEQ TAB (MICRO K) PO SCH ×2 (12:09→20:03)
[2021-04-12] MEDS: HYDROcodone/APAP 5 MG/325 MG (LORTAB) TAB PO PRN (16:43)
--- NOTE | 2021-04-12 16:55 | Progress Note ---
Subjective Subjective Date Seen by Provider: Apr 12, 2021 Time Seen by Provider: 12:00 No overnight events. Pt more confused today. Fentanyl iv stopped Pt indicates that her abdomen hurts today. Review of Systems ROS Unable to Obtain: unable to obtain a good ROS due to patient's poor hearing and confusion. Objective Exam Vital Signs Vital Signs - First Documented 04/08/21 04/08/21 04/09/21 15:24 19:41 13:40 Temp 36.8 Pulse 61 Resp 25 B/P (MAP) 161/84 (109) Pulse Ox 94 O2 Delivery Nasal Cannula O2 Flow Rate 2.00 FiO2 28 Capillary Refill : Less Than 3 Seconds General Appearance: No Apparent Distress, Thin Eyes: Bilateral Eye Normal Inspection, Bilateral Eye PERRL, Bilateral Eye EOMI HEENT: No Scleral Icterus (L), No Scleral Icterus (R) Neck: Non Tender, Supple Respiratory: Lungs Clear, Normal Breath Sounds Cardiovascular: Regular Rate, Rhythm, Systolic Murmur Gastrointestinal: Normal Bowel Sounds, Soft, Other (denies pain but grimaces with palpation of the abdomen not specific to RUQ) Back: Normal Inspection Extremity: Normal Capillary Refill; No Calf Tenderness Neurologic/Psychiatric: Alert; No Oriented x3 Skin: Warm/Dry Results Lab Microbiology 04/09/21 MRSA Screen - Final, Complete MRSA not isolated Assessment/Plan Assessment/Plan Assessment and Plan case management consulted to work on discharge planning as I think she needs to go through rehab PT/OT if she wants to return home safely. Awaiting insurance and [facility] acceptance. Doing well overall. replacing potassium. monitor mental status -continue with PT/OT -switch to oral pain medication -DVT ppx restarted Claire Patient and son have talked with hospice recently- the week prior to admission. Problems: (1) Acute cholecystitis Assessment & Plan: s/p lap yahir 04/10/21 (2) Atrial fibrillation (3) Delirium (4) Hypokalemia JUSTIN JOHNSON MD Apr 12, 2021 16:55
[2021-04-12] MEDS: APIXABAN 5 MG (ELIQUIS) TABLET PO SCH (20:03)
[2021-04-12] MEDS: GABAPENTIN 300 MG (NEURONTIN) CAP PO SCH (20:03)
[2021-04-12] MEDS: LATANOPROST 0.005% (XALATAN) OPHTH SOLN 2.5 ML OU SCH (20:03)
[2021-04-12] MEDS: AMITRIPTYLINE 25 MG (ELAVIL) TAB PO SCH (20:03)
[2021-04-13] MEDS: RT-ALBUTEROL SULF 2.5 MG/3 ML PRE-MIX VIAL INH SCH ×4 (02:46→21:41)
[2021-04-13] MEDS: CATHETER FLUSH 10 ML SYR IV SCH ×3 (06:11→20:04)
[2021-04-13 06:26] LABS: CHLORIDE 104 MMOL/L (98-107); SODIUM 143 MMOL/L (135-145)
[2021-04-13 06:27] LABS: CALCIUM 8.5 MG/DL (8.5-10.1)
[2021-04-13 06:28] LABS: GLUCOSE 93 MG/DL (70-105)
[2021-04-13 06:29] LABS: CARBON DIOXIDE 30 MMOL/L (21-32)
[2021-04-13 06:32] LABS: BUN/CREATININE RATIO 21; CREATININE SERUM 0.73 MG/DL (0.60-1.30); GFR ESTIMATED > 60
[2021-04-13 08:22] VITALS: BP 133/66
[2021-04-13] MEDS: KCL 10 MEQ TAB (MICRO K) PO SCH ×2 (08:49→13:36)
[2021-04-13] MEDS: APIXABAN 5 MG (ELIQUIS) TABLET PO SCH ×2 (08:49→20:04)
[2021-04-13] MEDS: GABAPENTIN 300 MG (NEURONTIN) CAP PO SCH ×3 (08:49→20:04)
[2021-04-13] MEDS: lisINopril 5 MG (PRINIVIL) TABLET PO SCH (08:50)
--- NOTE | 2021-04-13 10:22 | Physical Therapy Daily Note ---
PT Daily Note-Current Subjective Patient in bed pre tx, agrees to PT reluctantly, has severe bilateral knee pain, states she doesn't want to get out of bed but that she needs to do it. Appearance Patient in recliner post tx with nurse call, phone, tray, chair alarm on. Mental Status Patient Orientation: Person, Confused Attachments: Oxygen Transfers SCALE: Activities may be completed with or without assistive devices. 4-Jkidhvjeux-kixomll completes the activity by him/herself with no assistance from a helper. 5-Set-up or Clean-up Assistance-helper sets up or cleans up; patient completes activity. [place] assists only prior to or following the activity. 4-Supervision or Touching Assistance-helper provides verbal cues and/or touching/steadying and/or contact guard assistance as patient completes activity. Assistance may be provided throughout the activity or intermittently. 3-Partial/Moderate Assistance-helper does LESS THAN HALF the effort. [place] lifts, holds or supports trunk or limbs, but provides less than half the effort. 2-Substantial/Maximal Assistance-helper does MORE THAN HALF the effort. [place] lifts or holds trunk or limbs and provides more than half the effort. 5-Nygrtnbwf-xdonch does ALL the effort. Patient does none of the effort to complete the activity. Or, the assistance of 2 or more helpers is required for the patient to complete the activity. If activity was not attempted, code reason: 7-Patient Refused. 9-Not Applicable-not attempted and the patient did not perform the activity before the current illness, exacerbation or injury. 10-Not Attempted due to Environmental Limitations-(lack of equipment, weather restraints, etc.). 88-Not Attempted due to Medical Conditions or Safety Concerns. Roll Left & Right (QC): 3 Lying to Sitting/Side of Bed(Q: 3 Sit to Stand (QC): 3 Chair/Wzi-ae-Psukp Xfer(QC): 3 mod assist, very painful for patient to stand on her painful knees, she is able to take a few steps to a recliner but it is very slow and antalgic, retropulsive with standing. Weight Bearing Right Lower Extremity: Right Weight Bearing/Tolerated Left Lower Extremity: Left Weight Bearing/Tolerated Gait Training Distance: 3' Gait Persons Needed: 1 Gait Assistive Device: FWW Exercises Seated Therapy Exercises: Ankle pumps, Hip flexion Seated Reps: 20 Treatments bed mobility and transfers, ambulation, LE strengthening Assessment Current Status: Poor Progress pain limits functional mobility PT Sales Order Specialist Goals Fdc Goals PT Sales Order Specialist Goals Time Frame: Apr 19, 2021 Roll Left & Right (QC): 3 Sit to Lying (QC): 3 Lying-Sitting on Side/Bed(QC): 3 Sit to Stand (QC): 3 Chair/Ydy-uv-Izwcv Xfer(QC): 3 PT Plan Problem List Problem List: Activity Tolerance, Functional Strength, Safety, Balance, Gait, Transfer, Bed Mobility, ROM Treatment/Plan Treatment Plan: Continue Plan of Care Treatment Plan: Bed Mobility, Education, Functional Activity Katherine, Functional Strength, Gait, Safety, Therapeutic Exercise, Transfers Treatment Duration: Apr 19, 2021 Frequency: 6 times per week Estimated Hrs Per Day: .25 hour per day Patient and/or Family Agrees t: Yes Safety Risks/Education Patient Education: Gait Training, Transfer Techniques, Correct Positioning, Safety Issues Teaching Recipient: Patient Teaching Methods: Demonstration, Discussion Response to Teaching: Reinforcement Needed Time/GCodes Time In: 0952 Time Out: 1002 Total Billed Treatment Time: 10 Total Billed Treatment 1 visit FA 10JOSIE FITZPATRICK PT Apr 13, 2021 10:22
[2021-04-13] MEDS ORDERED: NS IV 500 ML 500 ML ONE (13:29)
[2021-04-13] MEDS: MAGNESIUM OXIDE (MAG-OX)400 MG TAB PO SCH ×2 (13:36→17:48)
[2021-04-13] MEDS: POTASSIUM CL 10MEQ/50ML IVPB 50 ML IV SCH ×4 (13:36→16:42)
--- NOTE | 2021-04-13 14:26 | Occupational Ther Daily Note ---
OT Current Status-Daily Note Subjective No pain reported. Appearance Pt. up in chair. Agrees to work with OT. Mental Status/Objective Patient Orientation: Person ADL-Treatment Therapy Code Descriptions/Definitions Functional [place] Measure: 0=Not Assessed/NA 4=Minimal Assistance 1=Total Assistance 5=Supervision or Setup 2=Maximal Assistance 6=Modified [place] 3=Moderate Assistance 7=Complete IndependenceSCALE: Activities may be completed with or without assistive devices. 0-Bzkvsfcsje-tmohynd completes the activity by him/herself with no assistance from a helper. 5-Set-up or Clean-up Assistance-helper sets up or cleans up; patient completes activity. [place] assists only prior to or following the activity. 4-Supervision or Touching Assistance-helper provides verbal cues and/or touching/steadying and/or contact guard assistance as patient completes activity. Assistance may be provided throughout the activity or intermittently. 3-Partial/Moderate Assistance-helper does LESS THAN HALF the effort. [place] lifts, holds or supports trunk or limbs, but provides less than half the effort. 2-Substantial/Maximal Assistance-helper does MORE THAN HALF the effort. [place] lifts or holds trunk or limbs and provides more than half the effort. 0-Megjqatyb-elgpul does ALL the effort. Patient does none of the effort to complete the activity. Or, the assistance of 2 or more helpers is required for the patient to complete the activity. If activity was not attempted, code reason: 7-Patient Refused. 9-Not Applicable-not attempted and the patient did not perform the activity before the current illness, exacerbation or injury. 10-Not Attempted due to Environmental Limitations-(lack of equipment, weather restraints, etc.). 88-Not Attempted due to Medical Conditions or Safety Concerns. Oral Hygiene (QC): 4 (SBA and cues to brush teeth up in chair. ) Other Treatment Pt. up in chair. She declines needing to use the bathroom. Pt. has already had her hair brushed by family. Washes face with warm wash cloth with no diffic ulty. OT cleans glasses, and pt. is able to brush teeth with cues after set up. Pt. states that she has no pain, and indicates that she is comfortable up in chair. All needs met. Family present. Education OT Patient Education: Correct positioning, Modified ADL techniques, Progress toward Goal/Update tx plan, Purpose of tx/functional activities, Reviewed precautions, Rehab process Teaching Recipient: Patient, Family Teaching Methods: Demonstration, Discussion Response to Teaching: Verbalize Understanding, Return Demonstration OT [employer] Merchandising Coordinator Goals [facility] Goals Time Frame: Apr 19, 2021 Eating (QC): 3 Oral Hygiene (QC): 3 Upper Body Dressing (QC): 3 Additional Goals: 3-ImproveStrength/Katherine 1=Demonstrate adherence to instructed precautions during ADL tasks. 2=Patient will verbalize/demonstrate understanding of assistive devices/modifications for ADL. 3=Patient will improve strength/tolerance for activity to enable patient to perform ADL's. OT Education/Plan Problem List/Assessment Assessment: Decreased Activ Tolerance, Impaired Bed Mobility, Impaired I ADL's, Impaired Self-Care Skills Discharge Recommendations Plan/Recommendations: Continue POC Therapy Discharge Recommendati: 24 Hour Supervision Treatment Plan/Plan of Care Treatment,Training & Education: Yes Patient would benefit from OT for education, treatment and training to promote independence in ADL's, mobility, safety and/or upper extremity function for ADL's. Plan of Care: ADL Retraining, Functional Mobility, UE Funct Exercise/Act Treatment Duration: Apr 19, 2021 Frequency: 5 times per week Estimated Hrs Per Day: .25 hour per day Agreement: Yes Rehab Potential: Guarded Time/GCodes Start Time: 10:55 Stop Time: 11:09 Total Time Billed (hr/min): 14 Billed Treatment Time 1, ADL CAMPBELL HAGER OT Apr 13, 2021 14:26
--- NOTE | 2021-04-13 15:23 | Progress Note ---
Subjective Subjective Date Seen by Provider: Apr 13, 2021 Time Seen by Provider: 15:21 No overnight events. Pt asleep. Review of Systems ROS Unable to Obtain: unable to obtain a good ROS due to patient's poor hearing and confusion. Objective Exam Vital Signs Vital Signs Date Time Temp Pulse Resp B/P (MAP) Pulse Ox O2 Delivery O2 Flow Rate FiO2 04/13/21 14:00 97 Nasal Cannula 2.00 04/13/21 08:22 36.7 60 20 133/66 (88) 95 Nasal Cannula 2.00 04/13/21 08:00 Nasal Cannula 2.00 04/13/21 02:47 93 Nasal Cannula 1.00 04/12/21 23:31 36.8 71 18 128/81 (97) 90 Nasal Cannula 1.00 04/12/21 20:05 Nasal Cannula 1.00 04/12/21 20:04 61 160/74 (102) 04/12/21 18:45 73 178/86 (116) 04/12/21 18:37 93 Nasal Cannula 1.00 04/12/21 16:00 35.8 61 20 177/84 (115) 90 Nasal Cannula 1.00 I & O 04/13/21 07:00 Intake Total 600 ml Output Total 1450 ml Balance -850 ml General Appearance: No Apparent Distress, Thin Eyes: Bilateral Eye Normal Inspection, Bilateral Eye PERRL, Bilateral Eye EOMI HEENT: No Scleral Icterus (L), No Scleral Icterus (R) Neck: Non Tender, Supple Respiratory: Lungs Clear, Normal Breath Sounds Cardiovascular: Regular Rate, Rhythm, Systolic Murmur Gastrointestinal: Normal Bowel Sounds, Soft, Other (denies pain but grimaces with palpation of the abdomen not specific to RUQ) Back: Normal Inspection Extremity: Normal Capillary Refill; No Calf Tenderness Neurologic/Psychiatric: Alert; No Oriented x3 Skin: Warm/Dry Results Lab Laboratory Tests 04/13/21 05:30: Sodium Level 143, Potassium Level 3.0L, Chloride Level 104, Carbon Dioxide Level 30, Anion Gap 9, Blood Urea Nitrogen 15, Creatinine 0.73, Estimat Glomerular Filtration Rate > 60, BUN/Creatinine Ratio 21, Glucose Level 93, Calcium Level 8.5 Microbiology 04/09/21 MRSA Screen - Final, Complete MRSA not isolated Assessment/Plan Assessment/Plan Assessment and Plan case management consulted to work on discharge planning as I think she needs to go through rehab PT/OT if she wants to return home safely. Awaiting insurance and [facility] acceptance. Doing well overall. replacing potassium IV and po. monitor mental status -continue with PT/OT - oral pain medication -DVT ppx restarted Eliquis for her Afib. Problems: (1) Acute cholecystitis Assessment & Plan: s/p lap yahir 04/10/21 (2) Atrial fibrillation (3) Delirium (4) Hypokalemia (5) CVA (cerebral vascular accident) Assessment & Plan: 02/14/21 (6) Right sided weakness JUSTIN JOHNSON MD Apr 13, 2021 15:23
[2021-04-13 16:04] VITALS: BP 100/60
[2021-04-13] MEDS: AMITRIPTYLINE 25 MG (ELAVIL) TAB PO SCH (20:04)
[2021-04-13] MEDS: LATANOPROST 0.005% (XALATAN) OPHTH SOLN 2.5 ML OU SCH (20:04)
[2021-04-13 20:05] VITALS: BP 167/81
[2021-04-14 00:12] VITALS: BP 149/61
[2021-04-14] MEDS: RT-ALBUTEROL SULF 2.5 MG/3 ML PRE-MIX VIAL INH SCH (02:34)
[2021-04-14] MEDS: HYDROcodone/APAP 5 MG/325 MG (LORTAB) TAB PO PRN (05:40)
[2021-04-14] MEDS: CATHETER FLUSH 10 ML SYR IV SCH ×3 (05:41→22:26)
[2021-04-14] MEDS: KCL 10 MEQ TAB (MICRO K) PO SCH (06:27)
[2021-04-14 08:18] VITALS: BP 164/84
[2021-04-14] MEDS: MAGNESIUM OXIDE (MAG-OX)400 MG TAB PO SCH ×2 (08:54→18:17)
[2021-04-14] MEDS: APIXABAN 5 MG (ELIQUIS) TABLET PO SCH ×2 (08:55→22:25)
[2021-04-14] MEDS: GABAPENTIN 300 MG (NEURONTIN) CAP PO SCH ×3 (08:55→22:25)
[2021-04-14] MEDS: lisINopril 5 MG (PRINIVIL) TABLET PO SCH (08:55)
[2021-04-14 09:15] VITALS: BP 164/84
[2021-04-14 10:10] LABS: CALCIUM 8.6 MG/DL (8.5-10.1); CREATININE SERUM 0.76 MG/DL (0.60-1.30)
--- NOTE | 2021-04-14 10:39 | Physical Therapy Daily Note ---
PT Daily Note-Current Subjective Patient in recliner pre tx, agrees to PT, states he knee pain isn't too bad and is willing to try to ambulate. Appearance Patient in recliner post tx with nurse call, phone, tray, legs elevated, chair alarm on. Mental Status Patient Orientation: Person, Confused Attachments: Oxygen Transfers SCALE: Activities may be completed with or without assistive devices. 8-Preybodfae-adsmzck completes the activity by him/herself with no assistance from a helper. 5-Set-up or Clean-up Assistance-helper sets up or cleans up; patient completes activity. [place] assists only prior to or following the activity. 4-Supervision or Touching Assistance-helper provides verbal cues and/or touching/steadying and/or contact guard assistance as patient completes activity. Assistance may be provided throughout the activity or intermittently. 3-Partial/Moderate Assistance-helper does LESS THAN HALF the effort. [place] lifts, holds or supports trunk or limbs, but provides less than half the effort. 2-Substantial/Maximal Assistance-helper does MORE THAN HALF the effort. [place] lifts or holds trunk or limbs and provides more than half the effort. 4-Kwtwqkaba-bjpqlz does ALL the effort. Patient does none of the effort to complete the activity. Or, the assistance of 2 or more helpers is required for the patient to complete the activity. If activity was not attempted, code reason: 7-Patient Refused. 9-Not Applicable-not attempted and the patient did not perform the activity before the current illness, exacerbation or injury. 10-Not Attempted due to Environmental Limitations-(lack of equipment, weather restraints, etc.). 88-Not Attempted due to Medical Conditions or Safety Concerns. Sit to Stand (QC): 3 Patient stands with min assist, slightly retropulsive, stands about residential and says that she isn't going to be able to stand or ambulate because of the knee pain now that she has weight on them. Sits back down. Weight Bearing Right Lower Extremity: Right Weight Bearing/Tolerated Left Lower Extremity: Left Weight Bearing/Tolerated Exercises Seated Therapy Exercises: Ankle pumps, Long arc quads, Hip flexion Seated Reps: 20 Treatments standing, LE strengthening Assessment Current Status: Poor Progress bilateral knee pain prevents improvements in functional mobility PT Care Home Goals Care Home Goals PT Government Documents Librarian Goals Time Frame: Apr 19, 2021 Roll Left & Right (QC): 3 Sit to Lying (QC): 3 Lying-Sitting on Side/Bed(QC): 3 Sit to Stand (QC): 3 Chair/Mpq-xi-Gpwiu Xfer(QC): 3 PT Plan Problem List Problem List: Activity Tolerance, Functional Strength, Safety, Balance, Gait, Transfer, Bed Mobility, ROM Treatment/Plan Treatment Plan: Continue Plan of Care Treatment Plan: Bed Mobility, Education, Functional Activity Katherine, Functional Strength, Gait, Safety, Therapeutic Exercise, Transfers Treatment Duration: Apr 19, 2021 Frequency: 6 times per week Estimated Hrs Per Day: .25 hour per day Patient and/or Family Agrees t: Yes Safety Risks/Education Patient Education: Correct Positioning, Safety Issues Teaching Recipient: Patient Teaching Methods: Demonstration, Discussion Response to Teaching: Reinforcement Needed Time/GCodes Time In: 1015 Time Out: 1025 Total Billed Treatment Time: 10 Total Billed Treatment 1 visit EX Naveen' JOSIE HAWKINS PT Apr 14, 2021 10:39
--- NOTE | 2021-04-14 12:20 | Occupational Ther Daily Note ---
OT Current Status-Daily Note Subjective Pt. states that she is doing well up in chair. Agrees to work with OT. When transferring back to chair from [facility], begins stating her knees hurt. Does not state pain level. Pt. reports comfort after returning to chair. Appearance Pt. up in chair. States that she slept well last night. Agreeable to work with OT. Mental Status/Objective Patient Orientation: Person Attachments: Oxygen ADL-Treatment Therapy Code Descriptions/Definitions Functional [place] Measure: 0=Not Assessed/NA 4=Minimal Assistance 1=Total Assistance 5=Supervision or Setup 2=Maximal Assistance 6=Modified [place] 3=Moderate Assistance 7=Complete IndependenceSCALE: Activities may be completed with or without assistive devices. 4-Wujjfuuumr-kmtynpx completes the activity by him/herself with no assistance from a helper. 5-Set-up or Clean-up Assistance-helper sets up or cleans up; patient completes activity. [place] assists only prior to or following the activity. 4-Supervision or Touching Assistance-helper provides verbal cues and/or touching/steadying and/or contact guard assistance as patient completes activity. Assistance may be provided throughout the activity or intermittently. 3-Partial/Moderate Assistance-helper does LESS THAN HALF the effort. [place] lifts, holds or supports trunk or limbs, but provides less than half the effort. 2-Substantial/Maximal Assistance-helper does MORE THAN HALF the effort. [place] lifts or holds trunk or limbs and provides more than half the effort. 7-Ywnhkouhp-ccbwez does ALL the effort. Patient does none of the effort to complete the activity. Or, the assistance of 2 or more helpers is required for the patient to complete the activity. If activity was not attempted, code reason: 7-Patient Refused. 9-Not Applicable-not attempted and the patient did not perform the activity before the current illness, exacerbation or injury. 10-Not Attempted due to Environmental Limitations-(lack of equipment, weather restraints, etc.). 88-Not Attempted due to Medical Conditions or Safety Concerns. Oral Hygiene (QC): 4 (SBA to brush teeth while seated up in chair.) On/Off Footwear: 2 (Max assist to don slipper socks.) Toileting Hygiene (QC): 2 (Max assist to cleanse self after toileting.) Toilet Transfer (QC): 2 Other Treatment Pt. up in chair. Agrees to work on sit-stands from chair. Pt. requires max assist to stand from reclining chair at walker. While standing, OT asks if pt. needs to use the bathroom and she does. OT is able to pull BSC over and pt. is able to take small steps with walker to BSC. Pt. is able to have BM, and stands with max assist at walker. OT cleanses rear monet area and pt. is able to take small steps with encouragement back to reclining chair. Max cues to reach back and sit slowly. LE elevated and chair alarm set. Pt. verbalizes comfort. All needs met. Education OT Patient Education: Correct positioning, Modified ADL techniques, Progress toward Goal/Update tx plan, Purpose of tx/functional activities, Reviewed precautions, Rehab process, Transfer techniques Teaching Recipient: Patient Teaching Methods: Demonstration, Discussion Response to Teaching: Verbalize Understanding, Return Demonstration, Reinforcement Needed OT Wet Process Miller Goals Fdc Goals Time Frame: Apr 19, 2021 Eating (QC): 3 Oral Hygiene (QC): 3 Upper Body Dressing (QC): 3 Additional Goals: 3-ImproveStrength/Katherine 1=Demonstrate adherence to instructed precautions during ADL tasks. 2=Patient will verbalize/demonstrate understanding of assistive devices/modifications for ADL. 3=Patient will improve strength/tolerance for activity to enable patient to perform ADL's. OT Education/Plan Problem List/Assessment Assessment: Decreased Activ Tolerance, Dependent Transfers, Impaired Funct Balance, Impaired I ADL's, Impaired Self-Care Skills Discharge Recommendations Plan/Recommendations: Continue POC Therapy Discharge Recommendati: Post Acute OT Treatment Plan/Plan of Care Treatment,Training & Education: Yes Patient would benefit from OT for education, treatment and training to promote independence in ADL's, mobility, safety and/or upper extremity function for ADL's. Plan of Care: ADL Retraining, Functional Mobility, UE Funct Exercise/Act Treatment Duration: Apr 19, 2021 Frequency: 5 times per week Estimated Hrs Per Day: .25 hour per day Agreement: Yes Rehab Potential: Fair Time/GCodes Start Time: 08:40 Stop Time: 09:00 Total Time Billed (hr/min): 20 Billed Treatment Time 1, ADL CAMPBELL HAGER OT Apr 14, 2021 12:20
[2021-04-14 16:00] VITALS: BP 126/72
[2021-04-14] MEDS: LATANOPROST 0.005% (XALATAN) OPHTH SOLN 2.5 ML OU SCH (22:25)
[2021-04-14] MEDS: AMITRIPTYLINE 25 MG (ELAVIL) TAB PO SCH (22:25)
--- NOTE | 2021-04-14 23:05 | Progress Note ---
Subjective Subjective Date Seen by Provider: Apr 14, 2021 Time Seen by Provider: 07:45 No overnight events. Patient awake, alert. No new issues. She still reports some discomfort in her abdomen. she says she is hungry. Review of Systems ROS Unable to Obtain: unable to obtain a good ROS due to patient's poor hearing and confusion. General: No Chills, No Night Sweats HEENT: No Head Aches Pulmonary: No Dyspnea, No Cough Cardiovascular: No: Chest Pain, Palpitations Gastrointestinal: No: Nausea, Vomiting Genitourinary: No Dysuria Musculoskeletal: other (abdomen.) Neurological: Weakness Objective Exam Vital Signs Vital Signs Date Time Temp Pulse Resp B/P (MAP) Pulse Ox O2 Delivery O2 Flow Rate FiO2 04/14/21 16:00 37.0 60 18 126/72 (90) 95 Nasal Cannula 2.00 04/14/21 09:15 36.7 60 97 04/14/21 08:18 36.7 60 20 164/84 (110) 97 Nasal Cannula 2.00 04/14/21 08:00 97 Nasal Cannula 2.00 04/14/21 02:34 97 Nasal Cannula 2.00 04/14/21 00:12 36.8 61 20 149/61 (90) 95 Nasal Cannula 2.00 I & O 04/14/21 07:00 Intake Total 850 ml Output Total 350 ml Balance 500 ml General Appearance: No Apparent Distress, Thin Eyes: Bilateral Eye Normal Inspection, Bilateral Eye PERRL, Bilateral Eye EOMI HEENT: No Scleral Icterus (L), No Scleral Icterus (R) Neck: Non Tender, Supple Respiratory: Lungs Clear, Normal Breath Sounds Cardiovascular: Regular Rate, Rhythm, Systolic Murmur Gastrointestinal: Normal Bowel Sounds, Soft, Other (denies pain but grimaces with palpation of the abdomen not specific to RUQ) Back: Normal Inspection Extremity: Normal Capillary Refill; No Calf Tenderness Neurologic/Psychiatric: Alert; No Oriented x3 Skin: Warm/Dry Results Lab Laboratory Tests 04/14/21 09:45: Sodium Level 140, Potassium Level 4.0, Chloride Level 106, Carbon Dioxide Level 28, Anion Gap 6, Blood Urea Nitrogen 14, Creatinine 0.76, Estimat Glomerular Filtration Rate 73, BUN/Creatinine Ratio 18, Glucose Level 105, Calcium Level 8.6 Microbiology 04/09/21 MRSA Screen - Final, Complete MRSA not isolated Assessment/Plan Assessment/Plan Assessment and Plan Doing well overall. replacing potassium - K up to 4.0 today. monitor mental status -continue with PT/OT - oral pain medication -DVT ppx restarted Eliquis for her Afib. -[facility]CV accepted and insurance approved. -D/c to [facility] tomorrow 04/15/21 Problems: (1) Acute cholecystitis Assessment & Plan: s/p lap yahir 04/10/21 (2) Atrial fibrillation (3) Delirium (4) Hypokalemia (5) CVA (cerebral vascular accident) Assessment & Plan: 02/14/21 (6) Right sided weakness JUSTIN JOHNSON MD Apr 14, 2021 23:05
[2021-04-14 23:40] VITALS: BP 142/72
[2021-04-15] MEDS: CATHETER FLUSH 10 ML SYR IV SCH (06:32)
[2021-04-15] MEDS: KCL 10 MEQ TAB (MICRO K) PO SCH (06:33)
[2021-04-15 08:00] VITALS: BP 147/81
[2021-04-15] MEDS: MAGNESIUM OXIDE (MAG-OX)400 MG TAB PO SCH (08:38)
[2021-04-15] MEDS: GABAPENTIN 300 MG (NEURONTIN) CAP PO SCH ×2 (08:39→12:56)
[2021-04-15] MEDS: lisINopril 5 MG (PRINIVIL) TABLET PO SCH (08:39)
[2021-04-15] MEDS: APIXABAN 5 MG (ELIQUIS) TABLET PO SCH (08:39)
[2021-04-15] MEDS ORDERED: ACHD5005 PO (08:56)
[2021-04-15] MEDS ORDERED: ALPR0.254 PO (08:56)
--- NOTE | 2021-04-15 08:59 | Discharge Inst-Skilled Nursing ---
Discharge Inst-Skilled NF Patient Instructions Patient Problems: s/p lap yahir due to acute cholecystitis chronic pain right sided stroke 02/14/21 Consult/Follow Up/Orders Follow Up Appt.: [address] Chow Skilled NF Admit to: [facility] Certification ([facility]) I certify that SNF services are required to be given on an inpatient basis because of the above named patient's need for [facility] care on a continuing basis for the conditions(s) for which he/she was receiving inpatient hospital services prior to his/her transfer to the SNF. Intermediate Facility Order: Nursing Services, [facility] Hole Digger-Evaluate & Treat, Physical Therapy-Evaluate & Treat Oxygen Delivery Method: Nasal Cannula (2-5L) New & Resume Previous Orders Jason Johnson Apr 15, 2021 08:57 JASON JOHNSON MD Apr 15, 2021 08:59
[2021-04-15 12:34] VITALS: BP 147/81
--- NOTE | 2021-04-15 17:14 | Discharge Summary ---
Diagnosis/Chief Complaint Date of Admission Apr 08, 2021 at 17:25 Date of Discharge Apr 15, 2021 at 13:15 Discharge Date: Apr 15, 2021 Discharge Time: 1245 Discharge Summary Hospital Course Labs Laboratory Tests 04/13/21 05:30: Potassium Level 3.0L 04/14/21 09:45: Procedures None. Discharge Physical Examination Allergies: Coded Allergies: doxycycline (Unverified Allergy, Mild, 11/26/17) Vitals & I&Os Vital Signs Date Time Temp Pulse Resp B/P (MAP) Pulse Ox O2 Delivery O2 Flow Rate FiO2 04/15/21 12:34 36.8 60 20 147/81 97 Nasal Cannula 2.00 04/12/21 15:21 24 Discharge Home Medications Reviewed and agree with Discharge Medication list on patient's Discharge Instruction sheet Instructions to Patient/Family Please see electronic discharge instructions given to patient. JUSTIN JOHNSON MD Apr 15, 2021 17:14
== END 2021-04-15 13:15 | DRG 418 ==
LOC: EDUNIT# 13:09 → ER 13:11 → 4TH 17:25
PROVIDERS: ADMIT Family Medicine; ATTEND Family Medicine
PROC: BF12YZZ Fluoroscopy of Gallbladder using Other Contrast (ICD-10-PCS; 2021-04-10)
PROC: 0FT44ZZ Resection of Gallbladder, Percutaneous Endoscopic Approach (ICD-10-PCS; principal; 2021-04-10 11:55)
DX: K80.00 Calculus of gallbladder with acute cholecystitis without obstruction (principal); I48.20 Chronic atrial fibrillation, unspecified; J81.1 Chronic pulmonary edema; I69.351 Hemiplegia and hemiparesis following cerebral infarction affecting right dominant side; J90 Pleural effusion, not elsewhere classified; Z79.01 Long term (current) use of anticoagulants; Z20.822 Contact with and (suspected) exposure to COVID-19; E78.00 Pure hypercholesterolemia, unspecified; I10 Essential (primary) hypertension; K21.9 Gastro-esophageal reflux disease without esophagitis; I35.0 Nonrheumatic aortic (valve) stenosis; M19.90 Unspecified osteoarthritis, unspecified site; G89.29 Other chronic pain; M54.9 Dorsalgia, unspecified; H40.9 Unspecified glaucoma; F41.9 Anxiety disorder, unspecified; F32.9 Major depressive disorder, single episode, unspecified; R41.0 Disorientation, unspecified; E87.6 Hypokalemia; Z86.16 Personal history of COVID-19; Z95.0 Presence of cardiac pacemaker; G25.81 Restless legs syndrome; D64.9 Anemia, unspecified
CPT/HCPCS: 36415; 71045; 74177; 76000; 76705; 80048; 80053; 81000; 83735; 83880; 85007; 85025; 85027; 87081; 87636; 88304; 94640; 94664; 94760; 96374; 96375; 96376

== ENCOUNTER 2021-05-24 17:42 | Inpatient (IN) | payer MEDICARE ==
[~2021-05-24] VITALS: Ht 170 cm; Wt 68.7 kg
[~2021-05-24 17:42] MED LIST changes: +ALPR0.254 PO; +SENN1TAB33 PO; +TRAM50TA3 PO
[2021-05-24] MEDS ORDERED: RT-ALBUTEROL SULF 2.5 MG/3 ML PRE-MIX VIAL INH STA (18:19)
[2021-05-24] MEDS ORDERED: methylPREDNISolone 125 MG (Solu-MEDROL) VIAL IVP ONE (18:30)
[2021-05-24] MEDS ORDERED: RT-ALBUTEROL/IPRATROPIUM 3 ML (DUONEB) VIAL INH ONE (18:30)
[2021-05-24 18:43] LABS: BASOPHILS # (AUTO) 0.1 10^3/uL (0.0-0.1); BASOPHILS % (AUTO) 1 % (0-10); EOSINOPHILS # (AUTO) 1.3 10^3/uL (0.0-0.3); EOSINOPHILS % (AUTO) 12 % (0-10); HEMATOCRIT 37 % (35-52); HEMOGLOBIN 11.2 g/dL (11.5-16.0); LYMPHOCYTES # (AUTO) 1.9 10^3/uL (1.0-4.0); LYMPHOCYTES % (AUTO) 17 % (12-44); MEAN CORPUSCULAR HEMOGLOBIN 27 pg (25-34); MEAN CORPUSCULAR HGB CONC 31 g/dL (32-36); MEAN CORPUSCULAR VOLUME 89 fL (80-99); MEAN PLATELET VOLUME 11.1 fL (9.0-12.2); MONOCYTES # (AUTO) 0.7 10^3/uL (0.0-1.0); MONOCYTES % (AUTO) 6 % (0-12); NEUTROPHILS % (AUTO) 64 % (42-75); PLATELET COUNT 296 10^3/uL (130-400)
[2021-05-24 18:49] LABS: ALBUMIN 4.1 GM/DL (3.2-4.5); POTASSIUM 4.2 MMOL/L (3.6-5.0)
[2021-05-24 18:50] LABS: CALCIUM 9.7 MG/DL (8.5-10.1)
[2021-05-24 18:51] LABS: TOTAL PROTEIN 7.3 GM/DL (6.4-8.2)
[2021-05-24 18:53] LABS: BILIRUBIN,TOTAL 2.4 MG/DL (0.1-1.0)
[2021-05-24 18:55] LABS: CREATININE SERUM 0.76 MG/DL (0.60-1.30)
[2021-05-24 18:56] VITALS: BP 157/147
[2021-05-24 19:08] LABS: BASOPHILS % (MANUAL) 1 %; EOSINOPHILS % (MANUAL) 10 %; LYMPHOCYTES % (MANUAL) 20 %; MONOCYTES % (MANUAL) 7 %; NEUTROPHILS % (MANUAL) 62 %
[2021-05-24 19:09] LABS: RBC MORPH NORMAL
--- NOTE | 2021-05-24 19:37 | Diagnostic Imaging Report ---
INDICATION: Shortness of air COMPARISON: 04/08/2021 TECHNIQUE: Single radiograph of the chest dated 05/24/2021 FINDINGS: Pacer device is again noted with a battery pack overlying the right chest. The cardiac silhouette is enlarged, though stable. Central pulmonary vascular congestion is again identified. Small right basilar pleural-parenchymal opacity is again identified, appearing similar to the prior examination. Small amount of fluid is noted within the right minor fissure. Trace left pleural effusion. No pneumothorax. No acute osseous abnormality. IMPRESSION: Persistent small right basilar pleural-parenchymal opacity, which is felt to relate to a combination of pleural fluid with adjacent atelectasis and/or infiltrate. Persistent cardiomegaly with central pulmonary vascular congestion. Trace left pleural effusion. Dictated by: Dictated on workstation # [id number]
--- NOTE | 2021-05-24 19:52 | ED Respiratory ---
General Chief Complaint: Respiratory Problems Stated Complaint: SOB Nursing Triage Note: arrives via ems to room 09, patient c/o sob and ems was called at home. patient normally wears oxygen at night however today was requiring 4 liters to keep sats greater than 93%. patient states she has been short of breath for 2-3 weeks. patient appears to only be oriented x2 person and day of the week. Source: patient Exam Limitations: no limitations History of Present Illness Date Seen by Provider: May 24, 2021 Time Seen by Provider: 18:08 Initial Comments This 81-year-old woman presents to the emergency room via EMS with concerns about shortness of breath, hypoxia, and swelling. Much of the history is obtained from her son and daughter by phone. Patient is rather weak and has experienced debility since having Covid and a stroke earlier in the year. She has COPD and was recently switched from Breo to Trelegy. She is also using a rescue inhaler. Despite these changes she has become increasingly short of breath in the last couple of days. Tonight she cannot lie flat. She is moving very little air on exam. Her home care nurse advised the family to have her evaluated in the ER. Patient has atrial fibrillation and is anticoagulated. Son notes that she previously was on diuretic therapy, but diuretics were dropped at some point during her recent admissions. He believes she has had some worsening swelling. Swelling tends to be worse on the right side which is the side affected by her stroke. She also tends to hang her right foot and hand off the couch where she sleeps. She has been receiving physical therapy recently which has been somewhat helpful in improving her functional capacity. Patient is somewhat confused at baseline since her stroke. However, son states this was perhaps a little bit worse in the past couple of days. She was forgetting where she and her son were today. She was also a little more emotional thinking that she was being left alone. Patient complains of right foot pain. Son states that this tends to be a complaint when her swelling is worse. Patient has had COVID-19 and received her first dose of vaccination 3 weeks ago. She did have some trouble with the vaccine including temperature up to 102 shortly after receiving it. Allergies and Home Medications Allergies Coded Allergies: doxycycline (Unverified Allergy, Mild, 11/26/17) Home Medications ALPRAZolam 0.25 Mg Tablet, 0.25 MG PO Q8H PRN for ANXIETY Prescribed by: JASON JOHNSON on 04/15/21 0856 Albuterol Sulfate 1 Puff Puff, 4 PUFF IH Q8H PRN for SHORTNESS OF BREATH, (Reported) Amitriptyline HCl 25 Mg Tablet, 25 MG PO HS, (Reported) Apixaban 5 Mg Tablet, 5 MG PO BID, (Reported) Carvedilol 3.125 Mg Tablet, 3.125 MG PO BID, (Reported) Citalopram Hydrobromide 10 Mg Tablet, 10 MG PO HS, (Reported) Fluticasone/Vilanterol 1 Each Blst.w.dev, 1 PUFF IH DAILY, (Reported) Gabapentin 300 Mg Capsule, 300 MG PO TID, (Reported) Hydrocodone/Acetaminophen 1 Each Tablet, 1 TAB PO Q6H PRN for PAIN-MODERATE (5- 7) Prescribed by: JASON JOHNSON on 04/15/21 0856 Latanoprost 2.5 Ml Drops, 1 DROP OU HS, (Reported) Lisinopril 5 Mg Tablet, 2.5 MG PO DAILY, (Reported) TAKES (5MG) TABLET Meloxicam 7.5 Mg Tablet, 7.5 MG PO DAILY, (Reported) Naphazoline/Pheniramine 15 Ml Soln, 1 DROP OS QID, (Reported) Ondansetron 4 Mg Tab.rapdis, 4 MG PO Q6H PRN for NAUSEA/VOMITING-1ST LINE, (Reported) Potassium Chloride 20 Meq Tablet.er, 20 MEQ PO DAILY, (Reported) Pravastatin Sodium 10 Mg Tablet, 10 MG PO HS, (Reported) Ropinirole HCl 1 Mg Tablet, 1 MG PO HS, (Reported) Sennosides/Docusate Sodium 1 Each Tablet, 1 EACH PO BID, (Reported) Spironolactone 25 Mg Tablet, 25 MG PO 0800, (Reported) Patient Home Medication List Home Medication List Reviewed: Yes Review of Systems Review of Systems Constitutional: see HPI, weakness EENTM: no symptoms reported Respiratory: see HPI Cardiovascular: see HPI Gastrointestinal: no symptoms reported Genitourinary: no symptoms reported Musculoskeletal: no symptoms reported Skin: no symptoms reported Psychiatric/Neurological: See HPI Hematologic/Lymphatic: No Symptoms Reported Immunological/Allergic: no symptoms reported Past Pfbyymj-Snrwhz-Gcpeut Hx Patient Social History Tobacco Use?: No Use of E-Cig and/or Vaping dev: No Substance use?: No Alcohol Use?: No Pt feels they are or have been: No Immunizations Up To Date First/Initial COVID19 Vaccinat: unk date Second COVID19 Vaccination Ronald: unk date COVID19 Vaccine [facility] [employer] Supervisor: unk vaccine Seasonal Allergies Seasonal Allergies: Yes Past Medical History Surgery/Hospitalization HX: Pacemaker placement Surgeries: Yes Section, Pacemaker, Tonsillectomy Respiratory: Yes Asthma, Sleep Apnea Currently Using CPAP: No Cardiac: Yes Atrial Fibrillation, High Cholesterol, Hypertension, Valvular Heart Disease Neurological: Yes (rest less leg syndrome) Stroke Reproductive Disorders: No Sexually Transmitted Disease: No HIV/AIDS: No Genitourinary: Yes Renal Failure Gastrointestinal: Yes Gastroesophageal Reflux, Chronic Constipation Musculoskeletal: Yes Arthritis, Chronic Back Pain Endocrine: No 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 0.6oz. [id number]; 28.00 BMI Method:Stated General Appearance: WD/WN, no apparent distress HEENT: PERRL/EOMI, normal ENT inspection, pharynx normal Neck: normal inspection Respiratory: decreased breath sounds; No crackles; wheezing, other (Poor air movement) Cardiovascular: regular rate, rhythm, no murmur, other (Mild LE edema) Gastrointestinal: non tender, soft; No distended Extremities: swelling, other (Milde erythema of the feet bilaterally. Complains of TTP of the medial right foot from heel to toes) Neurologic/Psychiatric: acting section chief II-XII nml as tested, no motor/sensory deficits, alert, normal mood/affect, other (Confused/poor historian) Skin: normal color, warm/dry Progress/Results/Core Measures Suspected Sepsis SIRS Temperature: Pulse: 77 Respiratory Rate: 32 Laboratory Tests 05/24/21 18:15: White Blood Count 11.0 Blood Pressure 157 /147 Mean: 120 Laboratory Tests 05/24/21 18:15: Creatinine 0.76, Platelet Count 296, Total Bilirubin 2.4H Results/Orders Lab Results Laboratory Tests Test 05/24/21 18:06 05/24/21 18:15 Range/Units Influenza Type A (RT-PCR) Not Detected Not Detecte Influenza Type B (RT-PCR) Not Detected Not Detecte SARS-CoV-2 RNA (RT-PCR) Not Detected Not Detecte White Blood Count 11.0 4.3-11.0 10^3/uL Red Blood Count 4.12 3.80-5.11 10^6/uL Hemoglobin 11.2 L 11.5-16.0 g/dL Hematocrit 37 35-52 % Mean Corpuscular Volume 89 80-99 fL Mean Corpuscular Hemoglobin 27 25-34 pg Mean Corpuscular Hemoglobin Concent 31 L 32-36 g/dL Red Cell Distribution Width 15.9 H 10.0-14.5 % Platelet Count 296 130-400 10^3/uL Mean Platelet Volume 11.1 9.0-12.2 fL Immature Granulocyte % (Auto) 0 % Neutrophils (%) (Auto) 64 42-75 % Lymphocytes (%) (Auto) 17 12-44 % Monocytes (%) (Auto) 6 0-12 % Eosinophils (%) (Auto) 12 H 0-10 % Basophils (%) (Auto) 1 0-10 % Neutrophils # (Auto) 7.0 1.8-7.8 10^3/uL Lymphocytes # (Auto) 1.9 1.0-4.0 10^3/uL Monocytes # (Auto) 0.7 0.0-1.0 10^3/uL Eosinophils # (Auto) 1.3 H 0.0-0.3 10^3/uL Basophils # (Auto) 0.1 0.0-0.1 10^3/uL Immature Granulocyte # (Auto) 0.0 0.0-0.1 10^3/uL Neutrophils % (Manual) 62 % Lymphocytes % (Manual) 20 % Monocytes % (Manual) 7 % Eosinophils % (Manual) 10 % Basophils % (Manual) 1 % Blood Morphology Comment NORMAL Sodium Level 139 135-145 MMOL/L Potassium Level 4.2 3.6-5.0 MMOL/L Chloride Level 106 98-107 MMOL/L Carbon Dioxide Level 25 21-32 MMOL/L Anion Gap 8 5-14 MMOL/L Blood Urea Nitrogen 12 7-18 MG/DL Creatinine 0.76 0.60-1.30 MG/DL Estimat Glomerular Filtration Rate 73 BUN/Creatinine Ratio 16 Glucose Level 142 H 70-105 MG/DL Calcium Level 9.7 8.5-10.1 MG/DL Corrected Calcium 9.6 8.5-10.1 MG/DL Total Bilirubin 2.4 H 0.1-1.0 MG/DL Aspartate Amino Transf (AST/SGOT) 14 5-34 U/L Alanine Aminotransferase (ALT/SGPT) 12 0-55 U/L Alkaline Phosphatase 96 40-136 U/L C-Reactive Protein High Sensitivity 0.69 H 0.00-0.50 MG/DL B-Type Natriuretic Peptide 762.5 H <100.0 PG/ML Total Protein 7.3 6.4-8.2 GM/DL Albumin 4.1 3.2-4.5 GM/DL My Orders Orders - JOSE KEYES MD Covid 19 Inhouse Test (05/24/21 18:08) Influenza A And B By Pcr (05/24/21 18:08) Albuterol/Ipra Inhalation Soln (Duoneb I (05/24/21 18:30) Svn Small Volume Nebulizer (05/24/21 18:16) BNP (05/24/21 18:16) Cbc With Automated Diff (05/24/21 18:16) Comprehensive Metabolic Panel (05/24/21 18:16) Hs C Reactive Protein (05/24/21 18:16) Ed Iv/Invasive Line Start (05/24/21 18:16) Ekg Tracing (05/24/21 18:16) Monitor-Rhythm Ecg Trace Only (05/24/21 18:16) Albuterol Pre-Mix Nebs (Rt) (Proventil (05/24/21 18:19) Svn Small Volume Nebulizer (05/24/21 18:19) Methylprednisolone Sod Succ (Solu-Medrol (05/24/21 18:30) Chest 1 View, Ap/Pa Only (05/24/21 18:20) Manual Differential (05/24/21 18:15) Foot, Right, 3 View (05/24/21 19:21) Acetaminophen Tablet (Tylenol Tablet) (05/24/21 20:15) Apixaban Tablet (Eliquis Tablet) (05/24/21 20:06) Carvedilol Tablet (Coreg Tablet) (05/24/21 20:06) Gabapentin Capsule/Tablet (Neurontin Cap (05/24/21 20:06) Tramadol Tablet (Ultram Tablet) (05/24/21 20:08) Potassium Chloride (Tablet) (Klor Con Ta (05/24/21 20:09) Furosemide Injection (Lasix Injection) (05/24/21 20:09) Medications Given in ED Current Medications Medications Dose Ordered Sig/Jimi Route Start Time Stop Time Status Last Admin Dose Admin Acetaminophen 1,000 mg ONCE ONCE PO 05/24/21 20:15 05/24/21 20:16 DC 05/24/21 20:34 1,000 MG Albuterol/ Ipratropium 3 ml ONCE ONCE INH 05/24/21 18:30 05/24/21 18:31 DC 05/24/21 19:03 3 ML Methylprednisolone Sodium Succinate 125 mg ONCE ONCE IVP 05/24/21 18:30 05/24/21 18:31 DC 05/24/21 18:33 125 MG Vital Signs/I&O 05/24/21 05/24/21 05/24/21 17:56 18:00 18:56 Temp 36.6 Pulse 77 77 Resp 28 32 B/P (MAP) 172/94 (120) Pulse Ox 97 96 O2 Delivery Non Rebreather Non Rebreather O2 Flow Rate 15.00 15.00 45.00 15.00 Capillary Refill : Less Than 3 Seconds Blood Pressure Mean: 120 Progress Note : Progress Note Symptoms primarily seem to be related to COPD exacerbation and fluid overload may also be a contributing factor. Lasix 20 mg IV and potassium 10 mEq orally were administered in the ER. We also gave her evening doses of Coreg and E liquis. Tylenol and gabapentin were given for her pain. I discussed CODE STATUS with her son who states that she desires full code based on his last conversation with her. However, she does not want prolonged life support. She would only like life support as a temporizing measure for stabilization if she has problems of improvement. There does not appear to be an infectious co mponent as her CRP, WBC, and temperature are all normal. ECG Initial ECG Impression Date: May 24, 2021 Initial ECG Impression Time: 18:27 Initial ECG Rate: 85 Initial ECG Rhythm: A Fib/Flutter Initial ECG Impression: Atrial Fibrillation Comment Atrial fibrillation with no overt ischemic changes. Similar to prior. Left bundle branch block appears chronic when compared with prior EKGs. Diagnostic Imaging Diagonstic Imaging: Xray Plain Films/CT/US/NM/MRI: chest Comments Chest x-ray viewed by me and report reviewed. See report below: NAME: LUCITA [facility] REC#: [id number] PT STATUS: REG ER : 1940 PHYSICIAN: JOSE KEYES MD ADMIT DATE: 05/24/21/ER Draft Date of Exam:05/24/21 CHEST 1 VIEW, AP/PA ONLY INDICATION: Shortness of air COMPARISON: 04/08/2021 TECHNIQUE: Single radiograph of the chest dated 05/24/2021 FINDINGS: Pacer device is again noted with a battery pack overlying the right chest. The cardiac silhouette is enlarged, though stable. Central pulmonary vascular congestion is again identified. Small right basilar pleural-parenchymal opacity is again identified, appearing similar to the prior examination. Small amount of fluid is noted within the right minor fissure. Trace left pleural effusion. No pneumothorax. No acute osseous abnormality. IMPRESSION: Persistent small right basilar pleural-parenchymal opacity, which is felt to relate to a combination of pleural fluid with adjacent atelectasis and/or infiltrate. Persistent cardiomegaly with central pulmonary vascular congestion. Trace left pleural effusion. Dictated on workstation # [id number] Dict: 05/24/211928 Trans: 05/24/211935 [facility] [id number] Interpreted by: DAVIE TAI MD Departure Communication (Admissions) Time/Spoke to Admitting Phy: 21:10 Dr. Jason Johnson Impression Primary Impression: COPD exacerbation Additional Impressions: Fluid overload Qualified Codes: E87.70 - Fluid overload, unspecified Generalized weakness Disposition: ADMITTED INPATIENT Condition: Improved Admissions Decision to Admit Reason: Admit from ER (General) Decision to Admit/Date: May 24, 2021 Time/Decision to Admit Time: 18:16 Departure-Patient Inst. Referrals: JASON JOHNSON MD (PCP/Family) Primary Care Physician JOSE KEYES MD May 24, 2021 19:52
[2021-05-24] MEDS ORDERED: GABAPENTIN 300 MG (NEURONTIN) CAP PO STA (20:06)
[2021-05-24] MEDS ORDERED: APIXABAN 5 MG (ELIQUIS) TABLET PO STA (20:06)
--- NOTE | 2021-05-24 20:06 | Diagnostic Imaging Report ---
INDICATION: Right foot pain COMPARISON: None available TECHNIQUE: 3 radiographs of the right foot dated 05/24/2021 FINDINGS: No acute fracture or dislocation. Erosive changes are noted associated with the 2nd metatarsal head. Moderate scattered degenerative changes, greatest involving the 1st and 2nd MTP joints. Moderate sized posterior and plantar calcaneal enthesophytes. The Lisfranc joint is well aligned. No suspicious radiopaque foreign body. IMPRESSION: No acute osseous abnormality with moderate degenerative changes, greatest involving the 1st and 2nd MTP joints. Dictated by: Dictated on workstation # [id number]
[2021-05-24] MEDS ORDERED: KCL 10 MEQ TAB (MICRO K) PO STA (20:09)
[2021-05-24] MEDS ORDERED: FUROSEMIDE 40 MG/4 ML INJ (LASIX) IVP STA (20:09)
[2021-05-24] MEDS ORDERED: ACETAMINOPHEN 500 MG TAB (TYLENOL) PO ONE (20:15)
[2021-05-24 22:19] VITALS: BP 150/77
[2021-05-24 22:30] VITALS: BP 150/77
[2021-05-24 23:30] VITALS: BP 114/57
[2021-05-24] MEDS: methylPREDNISolone 40 MG/ML (Solu-MEDROL) VIAL IV SCH (23:37)
[2021-05-25] VITALS (7 sets, daily range): BP systolic 114–160; BP diastolic 57–81
[2021-05-25] MEDS ORDERED: RT-ALBUTEROL/IPRATROPIUM 3 ML (DUONEB) VIAL INH PRN (00:30)
[2021-05-25] MEDS: RT-ALBUTEROL/IPRATROPIUM 3 ML (DUONEB) VIAL INH SCH ×6 (03:15→22:14)
[2021-05-25 05:00] LABS: BASOPHILS % (AUTO) 0 % (0-10); EOSINOPHILS % (AUTO) 0 % (0-10); HEMATOCRIT 34 % (35-52); HEMOGLOBIN 10.4 g/dL (11.5-16.0); LYMPHOCYTES # (AUTO) 0.5 10^3/uL (1.0-4.0); LYMPHOCYTES % (AUTO) 11 % (12-44); MEAN CORPUSCULAR HEMOGLOBIN 27 pg (25-34); MEAN CORPUSCULAR HGB CONC 30 g/dL (32-36); MEAN CORPUSCULAR VOLUME 90 fL (80-99); MEAN PLATELET VOLUME 11.3 fL (9.0-12.2); MONOCYTES % (AUTO) 1 % (0-12); NEUTROPHILS # (AUTO) 3.9 10^3/uL (1.8-7.8); NEUTROPHILS % (AUTO) 88 % (42-75); PLATELET COUNT 239 10^3/uL (130-400); WHITE BLOOD COUNT 4.5 10^3/uL (4.3-11.0)
[2021-05-25 05:16] LABS: CALCIUM 9.5 MG/DL (8.5-10.1); CREATININE SERUM 0.76 MG/DL (0.60-1.30); POTASSIUM 4.4 MMOL/L (3.6-5.0)
[2021-05-25] MEDS: methylPREDNISolone 40 MG/ML (Solu-MEDROL) VIAL IV SCH ×3 (05:53→17:31)
--- NOTE | 2021-05-25 06:33 | Diagnostic Imaging Report ---
Indication: Respiratory distress Portable chest shows cardiomegaly with mild pulmonary venous distention. No alveolar infiltrates are seen. There are small bilateral effusions. IMPRESSION: The heart size is stable but the vascularity has decreased slightly since the 05/24/21 study. The effusions are stable. Dictated by: Dictated on workstation # [id number]
[2021-05-25] MEDS: APIXABAN 5 MG (ELIQUIS) TABLET PO SCH ×2 (08:14→21:41)
--- NOTE | 2021-05-25 09:03 | Physical Therapy Evaluation ---
PT Evaluation-General Medical Diagnosis Admission Date May 24, 2021 at 20:16 Medical Diagnosis: Shortness of breath, hypoxia, swelling, COPD, previous Covid with CVA Onset Date: May 24, 2021 Therapy Diagnosis Therapy Diagnosis: Gait Deficit, strength deficit Height/Weight Height (Feet): 5 Height (Inches): 4.00 Weight (Pounds): 182 Weight (Ounces): 0.6 Precautions Precautions/Isolations: Contact Isolation, Fall Prevention Referral Physician: Dr. Zuñiga Reason for Referral: Evaluation/Treatment Medical History Pertinent Medical History: Atrial Fib, Arthritis, CVA, GERD, HTN Social History Home: Single Level Current Living Status: Patient unable to recall previous dwelling. Reports she lives with her mom and dad, but cannot recall where or what type of dwelling. Prior Prior Level of Function SCALE: Activities may be completed with or without assistive devices. 9-Wqstbvcylw-hdldwso completes the activity by him/herself with no assistance from a helper. 5-Set-up or Clean-up Assistance-helper sets up or cleans up; patient completes activity. [place] assists only prior to or following the activity. 4-Supervision or Touching Assistance-helper provides verbal cues and/or touching/steadying and/or contact guard assistance as patient completes activity. Assistance may be provided throughout the activity or intermittently. 3-Partial/Moderate Assistance-helper does LESS THAN HALF the effort. [place] lifts, holds or supports trunk or limbs, but provides less than half the effort. 2-Substantial/Maximal Assistance-helper does MORE THAN HALF the effort. [place] lifts or holds trunk or limbs and provides more than half the effort. 6-Gungazqlc-amitzq does ALL the effort. Patient does none of the effort to complete the activity. Or, the assistance of 2 or more helpers is required for the patient to complete the activity. If activity was not attempted, code reason: 7-Patient Refused. 9-Not Applicable-not attempted and the patient did not perform the activity before the current illness, exacerbation or injury. 10-Not Attempted due to Environmental Limitations-(lack of equipment, weather restraints, etc.). 88-Not Attempted due to Medical Conditions or Safety Concerns. Bed Mobility: 6 Transfers (B,C,W/C): 6 Gait: 6 Stairs: 6 Indoor Mobility (Ambulation): Independent Stairs: Unknown Prior Devices Use: Walker PT Evaluation-Current Subjective Patient currently reports no pain, however reports she has to use the bathroom. Patient reminded frequently that she has a [place]avis. Patient unreliable historian, however does report she uses a FWW at home. Objective Patient Orientation: Person Attachments: Oxygen, Chavis Catheter ROM/Strength ROM Lower Extremities Bilateral knees limited ~20 degrees from TKE Strength Lower Extremities Grossly 3+/5, however bilateral knee extension is 2+/5 Sensory Sensation Right Lower Extremit: Intact Sensation Left Lower Extremity: Intact Transfers Roll Left to Right (QC): 3 Sit to Lying (QC): 3 Lying to Sitting/Side of Bed(Q: 3 Sit to Stand (QC): 3 Chair/Mjg-eb-Kfftt Xfer(QC): 3 Toilet Transfer (QC): 3 Gait Does the Patient Walk?: Yes Mode of Locomotion: Walk Anticipated Mode of Locomotion: Walk Walk 10 feet (QC): 88 Distance: 3 feet Gait Assistive Device: FWW Wheelchair Training Does the Pt Use a Wheelchair?: No Balance Sitting Static: Fair Standing Static: Poor Standing Dynamic: Poor Assessment/Needs Patient tolerates treatment fair, however demonstrates poor safety awareness. She tends to think she is unable to move or walk, however demonstrates fair overall performance of bed mobility. Patient is able to ambulate 3 feet with FWW with mod a and verbal cues. She demonstrates an accentuated thoracic kyphosis with a mild forward head posture. Patient is unable to fully extend bilateral knees and lacks ~ 20 degrees of TKE. Patient unable to control descent to chair despite verbal and tactile cues. Patient fatigues quickly. Patient in chair post treatment with all needs met, nursing notified, call light in hand, chair alarm activated. Rehab Potential: Fair Post Rehab Potential-Barriers: Cognition, safety awareness Equipment Needs Unsure at this time due to cognition. PT Short Term Goals Short Term Goals Time Frame: Jun 01, 2021 Roll Left & Right: 5 Sit to lyin Lying to sitting on side of be: 5 Sit to stand: 5 Chair/ved-fv-tqjka transfer: 5 Toilet transfer: 5 Walk 10 feet: 3 Walk 50 feet with two turns: 3 Does pt use a wc or scooter: No PT Custodial Goals Custodial Goals PT Custodial Goals Time Frame: Jun 22, 2021 Roll Left & Right (QC): 6 Sit to Lying (QC): 6 Lying-Sitting on Side/Bed(QC): 6 Sit to Stand (QC): 6 Chair/Nta-rm-Tqwwh Xfer(QC): 6 Toilet Transfer (QC): 6 Does the Patient Walk: Yes Walk 10 feet (QC): 5 Walk 50ft with 2 Turns (QC): 5 Walk 150 ft (QC): 4 Walking 10ft on Uneven Surface: 3 1 Step (curb) (QC): 3 4 Steps (QC): 3 12 Steps (QC): 3 PT Plan Problem List Problem List: Activity Tolerance, Functional Strength, Safety, Balance, Gait, Transfer, Bed Mobility, ROM Treatment/Plan Treatment Plan: Continue Plan of Care Treatment Plan: Bed Mobility, Education, Functional Activity Katherine, Functional Strength, Group Therapy, Gait, Safety, Therapeutic Exercise, Transfers Treatment Duration: Jul 20, 2021 Frequency: 6 times per week Estimated Hrs Per Day: .25 hour per day Patient and/or Family Agrees t: Yes Safety Risks/Education Patient Education: Gait Training, Transfer Techniques Teaching Recipient: Patient Teaching Methods: Demonstration, Discussion Response to Teaching: Verbalize Understanding, Reinforcement Needed Discharge Recommendations Plan Patient demonstrates the need for post acute placement at Discharge. Time/GCodes Time In: 834 Time Out: 900 Total Billed Treatment Time: 26 Total Billed Treatment Visit, BENNETT Pride JOHN A PT May 25, 2021 09:02
[2021-05-25] MEDS ORDERED: VIT1CAPS44 PO (14:13)
[2021-05-25] MEDS ORDERED: OMG1KC PO (14:13)
[2021-05-25] MEDS ORDERED: ONDA-105 PO (14:13)
[2021-05-25] MEDS ORDERED: ACHD5005 PO (14:13)
[2021-05-25] MEDS ORDERED: ALPR0.254 PO (14:13)
[2021-05-25] MEDS ORDERED: TRAM50TA3 PO (14:13)
[2021-05-25] MEDS ORDERED: CRAN400C PO (14:13)
[2021-05-25] MEDS ORDERED: LORA10TA7 PO (14:13)
[2021-05-25] MEDS ORDERED: AMLO-250 PO (14:13)
[2021-05-25] MEDS: FUROSEMIDE 40 MG/4 ML INJ (LASIX) IVP SCH (14:42)
--- NOTE | 2021-05-25 21:16 | History & Physical ---
History of Present Illness History of Present Illness Reason for visit/HPI 81 yo F admitted for acute on chronic hypoxic respiratory failure due to diastolic congestive heart failure and acute COPD exacerbation. She did respond well to BiPAP and diuresis. Steroids given and breathing treatment. She was on lasix previously but after she went home from [facility] it was not continued. Patient was taken to the ER because found her oxygen down in the 80s. Baseline she was using nocturnal oxygen and not during the day. Influenza, COVID negative. She had COVID in September 2020. Last admit was mid-March for acute cholecystitis. She does have chronic atrial fibrillation. Prior to this admission she had a stroke with residual right extremity weakness. This AM patient reports doing better- currently on supplemental oxygen 4L. Date of Admission May 24, 2021 at 20:16 Date Seen by a Provider: May 25, 2021 Time Seen by a Provider: 08:18 I consulted on this patient on 05/25/21 20:59 Attending Physician Jason Johnson MD Admitting Physician Jason Johnson MD Consult Allergies and Home Medications Allergies Coded Allergies: doxycycline (Unverified Allergy, Mild, 11/26/17) Home Medications ALPRAZolam 0.25 Mg Tablet, 0.25 MG PO Q8H PRN for ANXIETY, (Reported) Last Action: Reviewed Albuterol Sulfate 1 Puff Puff, 4 PUFF IH Q8H PRN for SHORTNESS OF BREATH, (Reported) Last Action: Reviewed Amitriptyline HCl 25 Mg Tablet, 25 MG PO HS, (Reported) Last Action: Reviewed Amlodipine Besylate 5 Mg Tablet, 5 MG PO DAILY, (Reported) Last Action: Reviewed Apixaban 5 Mg Tablet, 5 MG PO BID, (Reported) Last Action: Reviewed Carvedilol 3.125 Mg Tablet, 3.125 MG PO BID, (Reported) Last Action: Reviewed Citalopram Hydrobromide 10 Mg Tablet, 10 MG PO HS, (Reported) Last Action: Reviewed Cranberry 400 Mg Capsule, 400 MG PO DAILY, (Reported) Last Action: Reviewed Fluticasone/Vilanterol 1 Each Blst.w.dev, 1 PUFF IH DAILY, (Reported) Last Action: Reviewed Gabapentin 300 Mg Capsule, 300 MG PO TID, (Reported) Last Action: Reviewed Hydrocodone/Acetaminophen 1 Each Tablet, 1 TAB PO Q6H PRN for PAIN-MODERATE (5- 7), (Reported) Last Action: Reviewed Latanoprost 2.5 Ml Drops, 1 DROP OU HS, (Reported) Last Action: Reviewed Lisinopril 5 Mg Tablet, 2.5 MG PO DAILY, (Reported) TAKES (5MG) TABLET Last Action: Reviewed Loratadine 10 Mg Tablet, 10 MG PO DAILY, (Reported) Last Action: Reviewed Meloxicam 7.5 Mg Tablet, 7.5 MG PO DAILY, (Reported) Last Action: Reviewed Naphazoline/Pheniramine 15 Ml Soln, 1 DROP OS QID, (Reported) Last Action: Reviewed [place] 3 Polyunsat Fatty Acids 1,000 Mg Cap, 1,000 MG PO DAILY, (Reported) Last Action: Reviewed Ondansetron HCl 4 Mg Tablet, 4 MG PO Q6H PRN for NAUSEA/VOMITING-1ST LINE, (Reported) Last Action: Reviewed Potassium Chloride 20 Meq Tablet.er, 20 MEQ PO DAILY, (Reported) Last Action: Reviewed Pravastatin Sodium 10 Mg Tablet, 10 MG PO HS, (Reported) Last Action: Reviewed Ropinirole HCl 1 Mg Tablet, 1 MG PO HS, (Reported) Last Action: Reviewed Sennosides/Docusate Sodium 1 Each Tablet, 1 EACH PO BID, (Reported) Last Action: Reviewed Spironolactone 25 Mg Tablet, 12.5 MG PO DAILY, (Reported) TAKES OF A 25MG TAB Last Action: Reviewed Tramadol HCl 50 Mg Tablet, 50 MG PO BID PRN for PAIN-MODERATE (5-7), (Reported) Last Action: Reviewed Vit C/E/Zn/Coppr/Lutein/Zeaxan 1 Each Capsule, 1 EACH PO DAILY, (Reported) Last Action: Reviewed Patient Home Medication List Home Medication List Reviewed: Yes Past Rkcyeai-Mejuef-Wrhutx Hx Patient Social History Tobacco Use?: No Use of E-Cig and/or Vaping dev: No Substance use?: No Alcohol Use?: No Pt feels they are or have been: No Immunizations Up To Date Date of Influenza Vaccine: Jun 24, 2020 First/Initial COVID19 Vaccinat: unk date Second COVID19 Vaccination Ronald: unk date Tetanus Booster (TDap): Unknown Hepatitis A: Yes Hepatitis B: Yes Date of Pneumonia Vaccine: Oct 30, 2016 Seasonal Allergies Seasonal Allergies: Yes Current Status Advance Directives: Unable to obtain Communicates: Verbally Primary Language: Luxembourgish Preferred Spoken Language: Luxembourgish Is interpretation needed?: No Sensory deficits: Vision impairment Past Medical History Surgeries: Section, Pacemaker, Tonsillectomy Asthma, Sleep Apnea Currently Using CPAP: No Atrial Fibrillation, High Cholesterol, Hypertension, Valvular Heart Disease Stroke Sexually Transmitted Disease: No HIV/AIDS: No Renal Failure Gastroesophageal Reflux, Chronic Constipation Arthritis, Chronic Back Pain Glaucoma Loss of Vision: Bilateral Hearing Impairment: Hard of Hearing Anxiety, Depression Blood Disorders: No Adverse Reaction/Blood Tranf: No (N/A) Family Medical History Heart Disease, COPD, Renal Disease, Other Conditions/Hx Review of Systems Review of Systems General: No Chills, No Night Sweats HEENT: No Head Aches, No Visual Changes Pulmonary: No Dyspnea, No Cough Cardiovascular: No: Chest Pain, Palpitations Gastrointestinal: No: Nausea, Vomiting Genitourinary: No Dysuria Musculoskeletal: No: neck pain Neurological: Weakness Physical Exam Vital Signs Vital Signs - First Documented 05/24/21 05/25/21 17:56 00:10 Temp 36.6 Pulse 77 Resp 28 B/P (MAP) 172/94 (120) Pulse Ox 97 O2 Delivery Non Rebreather O2 Flow Rate 15.00 FiO2 45 Capillary Refill : Less Than 3 Seconds Height, Weight, BMI Height: 5'4.00" Weight: 182lbs. 0.6oz. [id number]; 25.39 BMI Method:Stated General Appearance: No Apparent Distress HEENT: PERRL/EOMI Neck: Supple Respiratory: Chest Non Tender, Lungs Clear, Decreased Breath Sounds (bases) Cardiovascular: Regular Rate, Rhythm, Systolic Murmur Gastrointestinal: Non Tender, Soft Rectal: Deferred Back: No CVA Tenderness Extremity: Non Tender, No Calf Tenderness Neurologic/Psychiatric: Alert, Oriented x3 Skin: Warm/Dry Assessment/Plan Assessment/Plan Admission Dx acute on chronic resp failure due to diastolic CHF and COPD exacerbation. 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 On admission requiring BiPAP- will also need to monitor heart rhythm as she is at increased risk of going into afib with RVR. Assessment and Plan diuresing well with lasix- was on bipap overnight- but able to titrate down to 4L NC. -catheter placed this AM due to urinary retention. -steroids given for COPD exacerbation -monitor cardiac rhythm. -RT consulted with MAT protocol. follow up tomorrow- SW consulted- PT consulted. Patient may need placement as she lives with her son. She did have PT home health prior to admission. Problems: (1) Acute diastolic CHF (congestive heart failure) (2) COPD exacerbation (3) General weakness (4) Atrial fibrillation JASON JOHNSON MD May 25, 2021 21:16
[2021-05-25] MEDS: HYDROcodone/APAP 5 MG/325 MG (LORTAB) TAB PO PRN (21:41)
[2021-05-26] VITALS (7 sets, daily range): BP systolic 102–151; BP diastolic 59–101
[2021-05-26] MEDS: RT-ALBUTEROL/IPRATROPIUM 3 ML (DUONEB) VIAL INH SCH ×6 (02:08→21:25)
[2021-05-26] MEDS ORDERED: LORazepam INJ 2 MG/ML (ATIVAN) VIAL IVP ONE (06:15)
[2021-05-26] MEDS ORDERED: LORazepam INJ 2 MG/ML (ATIVAN) VIAL ONE (06:17)
[2021-05-26 06:21] LABS: ABG BASE EXCESS 0.3 MMOL/L (-2.5-2.5); ABG OXYGEN SATURATION 94 % (94-100); ABG PCO2 44 MMHG (35-45); ABG PH 7.38 (7.37-7.43); ABG PO2 73 MMHG (79-93); ABG TCO2 26.2 MMOL/L (21.0-31.0); ALLENS TEST POSITIVE; INSPIRED O2 45; VENTILATOR NO
[2021-05-26 06:22] LABS: PATIENT TEMP 36.9
[2021-05-26] MEDS: dexAMETHasone 6 MG TAB (DECADRON) PO SCH (06:34)
[2021-05-26 06:36] LABS: BASOPHILS % (AUTO) 0 % (0-10); EOSINOPHILS % (AUTO) 0 % (0-10); HEMATOCRIT 38 % (35-52); HEMOGLOBIN 11.7 g/dL (11.5-16.0); LYMPHOCYTES # (AUTO) 1.5 10^3/uL (1.0-4.0); LYMPHOCYTES % (AUTO) 8 % (12-44); MEAN CORPUSCULAR HEMOGLOBIN 27 pg (25-34); MEAN CORPUSCULAR HGB CONC 31 g/dL (32-36); MEAN CORPUSCULAR VOLUME 88 fL (80-99); MEAN PLATELET VOLUME 11.6 fL (9.0-12.2); MONOCYTES # (AUTO) 0.9 10^3/uL (0.0-1.0); MONOCYTES % (AUTO) 5 % (0-12); NEUTROPHILS # (AUTO) 15.3 10^3/uL (1.8-7.8); NEUTROPHILS % (AUTO) 86 % (42-75); PLATELET COUNT 401 10^3/uL (130-400); WHITE BLOOD COUNT 17.8 10^3/uL (4.3-11.0)
[2021-05-26 06:41] LABS: CALCIUM 9.7 MG/DL (8.5-10.1); CREATININE SERUM 0.83 MG/DL (0.60-1.30); MAGNESIUM 1.9 MG/DL (1.6-2.4); PHOSPHORUS 4.6 MG/DL (2.3-4.7)
[2021-05-26] MEDS: APIXABAN 5 MG (ELIQUIS) TABLET PO SCH ×2 (07:26→20:07)
[2021-05-26] MEDS: FUROSEMIDE 40 MG/4 ML INJ (LASIX) IVP SCH (07:26)
--- NOTE | 2021-05-26 08:21 | Progress Note ---
Subjective Subjective Date Seen by Provider: May 26, 2021 Time Seen by Provider: 08:16 Patient had a rapid response called for hypoxia and respiratory distress. This AM patient was on bipap and reported she was doing better. No complaints at this time. Review of Systems General: No Chills, No Night Sweats HEENT: No Head Aches, No Visual Changes Pulmonary: No Dyspnea, No Cough Cardiovascular: No: Chest Pain, Palpitations Gastrointestinal: No: Nausea, Vomiting Genitourinary: No Dysuria Musculoskeletal: No: neck pain Neurological: Weakness Objective Exam Vital Signs Vital Signs Date Time Temp Pulse Resp B/P (MAP) Pulse Ox O2 Delivery O2 Flow Rate FiO2 05/26/21 07:41 69 24 123/65 (84) 97 NIV Bilevel 05/26/21 07:00 80 05/26/21 06:50 98 50 75 05/26/21 06:22 80 48 100 100.00 05/26/21 03:42 36.6 71 22 144/83 (103) 92 Nasal Cannula 4.00 05/26/21 02:09 94 Nasal Cannula 4.00 05/26/21 01:00 60 05/25/21 23:19 37.0 70 24 131/72 (91) 94 Nasal Cannula 4.00 05/25/21 22:14 93 Nasal Cannula 4.00 05/25/21 20:00 Nasal Cannula 3.00 05/25/21 19:49 37.2 75 25 144/73 (96) 93 Nasal Cannula 4.00 05/25/21 19:00 78 05/25/21 18:33 93 Nasal Cannula 4.00 05/25/21 16:00 36.7 65 25 148/76 (100) 95 NIV Bilevel 05/25/21 14:37 93 46 96 45.00 05/25/21 12:48 77 05/25/21 11:45 37.0 72 26 160/81 (107) 90 Nasal Cannula 4.00 05/25/21 10:52 91 Nasal Cannula 4.00 I & O 05/26/21 07:00 Intake Total 760 ml Output Total 2025 ml Balance -1265 ml General Appearance: No Apparent Distress HEENT: PERRL/EOMI Neck: Supple Respiratory: Chest Non Tender, Lungs Clear, Decreased Breath Sounds Cardiovascular: Regular Rate, Rhythm, Systolic Murmur Gastrointestinal: Non Tender, Soft Rectal: Deferred Back: No CVA Tenderness Extremity: Non Tender, No Calf Tenderness Neurologic/Psychiatric: Alert, Oriented x3 Skin: Warm/Dry Results Lab Laboratory Tests 05/26/21 06:06: Glucometer 223H 05/26/21 06:13: White Blood Count 17.8H, Red Blood Count 4.32, Hemoglobin 11.7, Hematocrit 38, Mean Corpuscular Volume 88, Mean Corpuscular Hemoglobin 27, Mean Corpuscular Hemoglobin Concent 31L, Red Cell Distribution Width 16.0H, Platelet Count 401H, Mean Platelet Volume 11.6, Immature Granulocyte % (Auto) 1, Neutrophils (%) (Auto) 86H, Lymphocytes (%) (Auto) 8L, Monocytes (%) (Auto) 5, Eosinophils (%) (Auto) 0, Basophils (%) (Auto) 0, Neutrophils # (Auto) 15.3H, Lymphocytes # ( Auto) 1.5, Monocytes # (Auto) 0.9, Eosinophils # (Auto) 0.0, Basophils # (Auto) 0.0, Immature Granulocyte # (Auto) 0.1, Blood Gas Puncture Site LEFT RADIAL, Blood Gas Patient Temperature 36.9, Arterial Blood pH 7.38, Arterial Blood Partial Pressure CO2 44, Arterial Blood Partial Pressure O2 73L, Arterial Blood HCO3 25, Arterial Blood Total CO2 26.2, Arterial Blood Oxygen Saturation 94, Arterial Blood Base Excess 0.3, Goran Test POSITIVE, Blood Gas Ventilator Setting NO, Blood Gas Inspired Oxygen 45, Sodium Level 139, Potassium Level 4.0, Chloride Level 104, Carbon Dioxide Level 21, Anion Gap 14, Blood Urea Nitrogen 22H, Creatinine 0.83, Estimat Glomerular Filtration Rate 66, BUN/Creatinine Ratio 27, Glucose Level 216H, Calcium Level 9.7, Phosphorus Level 4.6, Magnesium Level 1.9, Troponin I 0.108H, B-Type Natriuretic Peptide 2511.6H Assessment/Plan Assessment/Plan Admission Dx acute on chronic resp failure due to diastolic CHF and COPD exacerbation. Assessment and Plan 05/25/21-- diuresing well with lasix- was on bipap overnight- but able to titrate down to 4L NC. -catheter placed this AM due to urinary retention. -steroids given for COPD exacerbation -monitor cardiac rhythm. -RT consulted with MAT protocol. 05/26/21- Patient had a rapid response called for hypoxia and respiratory distress likely from pulmonary congestion. Though it could be a PE. She is on Eliquis for history of afib. Also she has severe aortic stenosis which cardiology has recommend replacement if she would tolerate it but they are not planning on it due to risks. Responded well with bipap, ativan. WBC elevated from steroids. BNP elevated. Continue diuresising. Try to get to her back to [place]. Currently on BiPAP will have ativan prn for anxiety with the bipap machine. Bipap should also help with the pulmonary edema. Dispo: SW consulted- PT consulted. Patient may need placement as she lives with her son. She did have PT home health prior to admission. She was almost to agree to hospice when she has her stroke in January 2021 but her and her son have backed on it. Problems: (1) Acute on chronic diastolic (congestive) heart failure (2) COPD exacerbation (3) General weakness (4) Atrial fibrillation Qualifiers: Qualified Codes: I48.0 - Paroxysmal atrial fibrillation Admission Dx acute on chronic resp failure due to diastolic CHF and COPD exacerbation. Clinical Quality Measures Admission Status Admission Dx acute on chronic resp failure due to diastolic CHF and COPD exacerbation. JUSTIN JOHNSON MD May 26, 2021 08:21
[2021-05-26] MEDS ORDERED: FUROSEMIDE 40 MG/4 ML INJ (LASIX) IVP ONE (08:30)
[2021-05-26] MEDS: amLODIPine 5 MG (NORVASC) TAB PO SCH (08:55)
[2021-05-26] MEDS: GABAPENTIN 300 MG (NEURONTIN) CAP PO SCH ×3 (08:55→20:07)
[2021-05-26] MEDS: lisINopril 5 MG (PRINIVIL) TABLET PO SCH (08:55)
[2021-05-26] MEDS: SPIRONOLACTONE 25 MG (ALDACTONE) TAB PO SCH (08:55)
[2021-05-26] MEDS: NAPHA/PHEN (NAPHCON-A, OPCON-A) OP SOLN 15 ML BTL OS SCH ×4 (08:57→20:07)
--- NOTE | 2021-05-26 09:44 | Physical Therapy Progress Note ---
Therapy Progress Note Patient on Hold per RN secondary to current medical status. Will check patient status in CHRISTI Dinero PT May 26, 2021 09:44
--- NOTE | 2021-05-26 11:28 | Physical Therapy Daily Note ---
PT Daily Note-Current Subjective Patient is more alert and responsive. RN okayed PT to resume. Mental Status Patient Orientation: Confused Attachments: Oxygen, Chavis Catheter Transfers SCALE: Activities may be completed with or without assistive devices. 2-Pghhfdfyao-fxieslo completes the activity by him/herself with no assistance from a helper. 5-Set-up or Clean-up Assistance-helper sets up or cleans up; patient completes activity. [place] assists only prior to or following the activity. 4-Supervision or Touching Assistance-helper provides verbal cues and/or touching/steadying and/or contact guard assistance as patient completes a ctivity. Assistance may be provided throughout the activity or intermittently. 3-Partial/Moderate Assistance-helper does LESS THAN HALF the effort. [place] lifts, holds or supports trunk or limbs, but provides less than half the effort. 2-Substantial/Maximal Assistance-helper does MORE THAN HALF the effort. [place] lifts or holds trunk or limbs and provides more than half the effort. 3-Usjuujgxi-cwduqq does ALL the effort. Patient does none of the effort to complete the activity. Or, the assistance of 2 or more helpers is required for the patient to complete the activity. If activity was not attempted, code reason: 7-Patient Refused. 9-Not Applicable-not attempted and the patient did not perform the activity before the current illness, exacerbation or injury. 10-Not Attempted due to Environmental Limitations-(lack of equipment, weather restraints, etc.). 88-Not Attempted due to Medical Conditions or Safety Concerns. Sit to Stand (QC): 2 Chair/Xzx-el-Tlkim Xfer(QC): 3 Toilet Transfer (QC): 2 PT assist to cleanse after BM Gait Training Does the Patient Walk?: Yes Distance: 15' x 2 Walk 10 feet (QC): 3 Gait Assistive Device: FWW very slow, antalgic gait (due to arthritis) with trunk flexed posture Assessment Patient up in recliner with live sitter present. Increase activity as tolerated by patient. PT Short Term Goals Short Term Goals Time Frame: Jun 01, 2021 Roll Left & Right: 5 Sit to lyin Lying to sitting on side of be: 5 Sit to stand: 5 Chair/hem-sl-jjuxz transfer: 5 Toilet transfer: 5 Walk 10 feet: 3 Walk 50 feet with two turns: 3 Does pt use a wc or scooter: No PT Substation Manager Goals Fpc Goals PT Substation Manager Goals Time Frame: Jun 22, 2021 Roll Left & Right (QC): 6 Sit to Lying (QC): 6 Lying-Sitting on Side/Bed(QC): 6 Sit to Stand (QC): 6 Chair/Exn-gc-Ijkfq Xfer(QC): 6 Toilet Transfer (QC): 6 Does the Patient Walk: Yes Walk 10 feet (QC): 5 Walk 50ft with 2 Turns (QC): 5 Walk 150 ft (QC): 4 Walking 10ft on Uneven Surface: 3 1 Step (curb) (QC): 3 4 Steps (QC): 3 12 Steps (QC): 3 PT Plan Treatment/Plan Treatment Plan: Continue Plan of Care Treatment Plan: Bed Mobility, Education, Functional Activity Katherine, Functional Strength, Group Therapy, Gait, Safety, Therapeutic Exercise, Transfers Treatment Duration: Jul 20, 2021 Frequency: 6 times per week Estimated Hrs Per Day: .25 hour per day Patient and/or Family Agrees t: Yes Time/GCodes Time In: 1100 Time Out: 1113 Total Billed Treatment Time: 13 Total Billed Treatment 1 visit FA 13 min CHRISTI BOYLE PT May 26, 2021 11:28
[2021-05-26] MEDS: rOPINIRole 1 MG (REQUIP) TABLET PO SCH (20:07)
[2021-05-26] MEDS: AMITRIPTYLINE 25 MG (ELAVIL) TAB PO SCH (20:07)
[2021-05-26] MEDS: LATANOPROST 0.005% (XALATAN) OPHTH SOLN 2.5 ML OU SCH (20:08)
[2021-05-26] MEDS: LORazepam INJ 2 MG/ML (ATIVAN) VIAL IVP PRN (23:52)
[2021-05-27] MEDS: RT-ALBUTEROL/IPRATROPIUM 3 ML (DUONEB) VIAL INH SCH ×6 (02:11→22:39)
[2021-05-27 04:09] VITALS: BP 103/66
[2021-05-27] MEDS: dexAMETHasone 6 MG TAB (DECADRON) PO SCH (05:07)
[2021-05-27] MEDS: HYDROcodone/APAP 5 MG/325 MG (LORTAB) TAB PO PRN (05:07)
[2021-05-27 07:30] VITALS: BP 102/56
[2021-05-27 08:45] LABS: BASOPHILS % (AUTO) 0 % (0-10); EOSINOPHILS % (AUTO) 0 % (0-10); HEMATOCRIT 33 % (35-52); HEMOGLOBIN 10.4 g/dL (11.5-16.0); LYMPHOCYTES # (AUTO) 0.6 10^3/uL (1.0-4.0); LYMPHOCYTES % (AUTO) 7 % (12-44); MEAN CORPUSCULAR HEMOGLOBIN 27 pg (25-34); MEAN CORPUSCULAR HGB CONC 31 g/dL (32-36); MEAN CORPUSCULAR VOLUME 88 fL (80-99); MEAN PLATELET VOLUME 11.3 fL (9.0-12.2); MONOCYTES # (AUTO) 0.3 10^3/uL (0.0-1.0); MONOCYTES % (AUTO) 4 % (0-12); NEUTROPHILS # (AUTO) 7.7 10^3/uL (1.8-7.8); NEUTROPHILS % (AUTO) 89 % (42-75); PLATELET COUNT 239 10^3/uL (130-400); WHITE BLOOD COUNT 8.6 10^3/uL (4.3-11.0)
[2021-05-27 09:04] LABS: ALBUMIN 3.5 GM/DL (3.2-4.5); CALCIUM 9.2 MG/DL (8.5-10.1); CREATININE SERUM 0.77 MG/DL (0.60-1.30); MAGNESIUM 1.9 MG/DL (1.6-2.4); PHOSPHORUS 2.9 MG/DL (2.3-4.7); POTASSIUM 3.6 MMOL/L (3.6-5.0)
--- NOTE | 2021-05-27 09:53 | Physical Therapy Daily Note ---
PT Daily Note-Current Subjective Patient sitting in recliner and requests toilet use. Mental Status Patient Orientation: Confused Attachments: Oxygen, Chavis Catheter Transfers SCALE: Activities may be completed with or without assistive devices. 7-Gutxblrgld-aqlcyce completes the activity by him/herself with no assistance from a helper. 5-Set-up or Clean-up Assistance-helper sets up or cleans up; patient completes activity. [place] assists only prior to or following the activity. 4-Supervision or Touching Assistance-helper provides verbal cues and/or touching/steadying and/or contact guard assistance as patient completes activity. Assistance may be provided throughout the activity or intermittently. 3-Partial/Moderate Assistance-helper does LESS THAN HALF the effort. [place] lifts, holds or supports trunk or limbs, but provides less than half the effort. 2-Substantial/Maximal Assistance-helper does MORE THAN HALF the effort. [place] lifts or holds trunk or limbs and provides more than half the effort. 2-Flrulmzxi-cwxivh does ALL the effort. Patient does none of the effort to complete the activity. Or, the assistance of 2 or more helpers is required for the patient to complete the activity. If activity was not attempted, code reason: 7-Patient Refused. 9-Not Applicable-not attempted and the patient did not perform the activity before the current illness, exacerbation or injury. 10-Not Attempted due to Environmental Limitations-(lack of equipment, weather restraints, etc.). 88-Not Attempted due to Medical Conditions or Safety Concerns. Sit to Stand (QC): 2 Toilet Transfer (QC): 2 Gait Training Does the Patient Walk?: Yes Distance: 15' x 2 Walk 10 feet (QC): 3 Gait Assistive Device: FWW slow, arthritic gait sequence Assessment PT assist to cleanse patient after toileting. Patient ambulates short distances due to severe arthritis bilateral hips and knees. PT Short Term Goals Short Term Goals Time Frame: Jun 01, 2021 Roll Left & Right: 5 Sit to lyin Lying to sitting on side of be: 5 Sit to stand: 5 Chair/bor-gx-kwypz transfer: 5 Toilet transfer: 5 Walk 10 feet: 3 Walk 50 feet with two turns: 3 Does pt use a wc or scooter: No PT Regulator Mechanic Goals Regulator Mechanic Goals PT Regulator Mechanic Goals Time Frame: Jun 22, 2021 Roll Left & Right (QC): 6 Sit to Lying (QC): 6 Lying-Sitting on Side/Bed(QC): 6 Sit to Stand (QC): 6 Chair/Rkn-rt-Mvozh Xfer(QC): 6 Toilet Transfer (QC): 6 Does the Patient Walk: Yes Walk 10 feet (QC): 5 Walk 50ft with 2 Turns (QC): 5 Walk 150 ft (QC): 4 Walking 10ft on Uneven Surface: 3 1 Step (curb) (QC): 3 4 Steps (QC): 3 12 Steps (QC): 3 PT Plan Treatment/Plan Treatment Plan: Continue Plan of Care Treatment Plan: Bed Mobility, Education, Functional Activity Katherine, Functional Strength, Group Therapy, Gait, Safety, Therapeutic Exercise, Transfers Treatment Duration: Jul 20, 2021 Frequency: 6 times per week Estimated Hrs Per Day: .25 hour per day Patient and/or Family Agrees t: Yes Time/GCodes Time In: 920 Time Out: 938 Total Billed Treatment Time: 18 Total Billed Treatment 1 visit FA 18 min CHRISTI BOYLE PT May 27, 2021 09:53
[2021-05-27] MEDS: FUROSEMIDE 40 MG/4 ML INJ (LASIX) IVP SCH (10:00)
[2021-05-27] MEDS: amLODIPine 5 MG (NORVASC) TAB PO SCH (10:00)
[2021-05-27] MEDS: SPIRONOLACTONE 25 MG (ALDACTONE) TAB PO SCH (10:00)
[2021-05-27] MEDS: APIXABAN 5 MG (ELIQUIS) TABLET PO SCH ×2 (10:00→21:00)
[2021-05-27] MEDS: lisINopril 5 MG (PRINIVIL) TABLET PO SCH (10:01)
[2021-05-27] MEDS: GABAPENTIN 300 MG (NEURONTIN) CAP PO SCH ×3 (10:01→21:00)
[2021-05-27] MEDS: NAPHA/PHEN (NAPHCON-A, OPCON-A) OP SOLN 15 ML BTL OS SCH ×4 (10:02→21:02)
[2021-05-27 11:30] VITALS: BP 117/67
--- NOTE | 2021-05-27 13:27 | Progress Note ---
Subjective Subjective Date Seen by Provider: May 27, 2021 Time Seen by Provider: 08:10 No overnight events. Doing well. Getting ready to eat breakfast. Discussed hospice with her. She is not interested in it at this time. But I explained with her aortic stenosis (severe) and diastolic CHF and COPD/chronic resp failure it may be an option in the future for keeping her at home with medical assistance. -son does not want to let her go to a facility because he needs her income. Review of Systems General: No Chills, No Night Sweats HEENT: No Head Aches, No Visual Changes Pulmonary: No Dyspnea, No Cough Cardiovascular: No: Chest Pain, Palpitations Gastrointestinal: No: Nausea, Vomiting Genitourinary: No Dysuria Musculoskeletal: No: neck pain Neurological: Weakness Objective Exam Vital Signs Vital Signs Date Time Temp Pulse Resp B/P (MAP) Pulse Ox O2 Delivery O2 Flow Rate FiO2 05/27/21 12:52 64 05/27/21 11:30 36.7 64 20 117/67 (84) 97 Nasal Cannula 2.00 05/27/21 11:03 100 Nasal Cannula 4.00 05/27/21 08:00 97 Nasal Cannula 2.00 05/27/21 07:30 36.4 60 22 102/56 (71) 96 Nasal Cannula 4.00 05/27/21 07:00 61 05/27/21 04:09 36.6 60 21 103/66 (78) 100 NIV Bilevel 05/27/21 02:11 60 23 98 45.00 05/27/21 01:00 60 05/26/21 23:13 36.8 60 26 106/59 (75) 99 NIV Bilevel 05/26/21 21:25 60 23 99 45.00 05/26/21 20:10 NIV Bilevel 05/26/21 19:41 98 45.00 05/26/21 19:37 60 23 100 60.00 05/26/21 19:17 37.0 60 24 112/63 (79) 100 NIV Bilevel 05/26/21 19:00 62 05/26/21 15:12 36.6 60 24 102/59 (73) 100 NIV Bilevel 05/26/21 14:21 60 27 98 60.00 05/26/21 13:58 97 Nasal Cannula 4.00 I & O 05/27/21 07:00 Intake Total 2010 ml Output Total 2850 ml Balance -840 ml General Appearance: No Apparent Distress HEENT: PERRL/EOMI Neck: Supple Respiratory: Chest Non Tender, Lungs Clear, Decreased Breath Sounds Cardiovascular: Regular Rate, Rhythm, Systolic Murmur Gastrointestinal: Non Tender, Soft Rectal: Deferred Back: No CVA Tenderness Extremity: Non Tender, No Calf Tenderness Neurologic/Psychiatric: Alert, Oriented x3 Skin: Warm/Dry Results Lab Laboratory Tests 05/27/21 08:36: White Blood Count 8.6, Red Blood Count 3.80, Hemoglobin 10.4L, Hematocrit 33L, Mean Corpuscular Volume 88, Mean Corpuscular Hemoglobin 27, Mean Corpuscular Hemoglobin Concent 31L, Red Cell Distribution Width 15.9H, Platelet Count 239, Mean Platelet Volume 11.3, Immature Granulocyte % (Auto) 1, Neutrophils (%) (Auto) 89H, Lymphocytes (%) (Auto) 7L, Monocytes (%) (Auto) 4, Eosinophils (%) (Auto) 0, Basophils (%) (Auto) 0, Neutrophils # (Auto) 7.7, Lymphocytes # (Auto) 0.6L, Monocytes # (Auto) 0.3, Eosinophils # (Auto) 0.0, Basophils # (Auto) 0.0, Immature Granulocyte # (Auto) 0.0, Sodium Level 138, Potassium Level 3.6, Chloride Level 100, Carbon Dioxide Level 28, Anion Gap 10, Blood Urea Nitrogen 27H, Creatinine 0.77, Estimat Glomerular Filtration Rate 72, BUN/Creatinine Ratio 35, Glucose Level 101, Calcium Level 9.2, Phosphorus Level 2.9, Magnesium Level 1.9, Albumin 3.5 Assessment/Plan Assessment/Plan Admission Dx acute on chronic resp failure due to diastolic CHF and COPD exacerbation. Assessment and Plan 05/25/21-- diuresing well with lasix- was on bipap overnight- but able to titrate down to 4L NC. -catheter placed this AM due to urinary retention. -steroids given for COPD exacerbation -monitor cardiac rhythm. -RT consulted with MAT protocol. 05/26/21- Patient had a rapid response called for hypoxia and respiratory distress likely from pulmonary congestion. Though it could be a PE. She is on Eliquis for history of afib. Also she has severe aortic stenosis which cardiology has recommend replacement if she would tolerate it but they are not planning on it due to risks. Responded well with bipap, ativan. WBC elevated from steroids. BNP elevated. Continue diuresising. Try to get to her back to [place]. Currently on BiPAP will have ativan prn for anxiety with the bipap machine. Bipap should also help with the pulmonary edema. 05/27/21- WBC back to normal. Kidneys doing well. Diuresing. Will order an echocardiogram to assess systolic function as her aortic stenosis may be causing systolic CHF. Dispo: SW consulted- continue PT. Patient may discharge to home over weekend if off bipap and on 4L oxygen or less continuous- will need RT to do a home oxygen test as her baseline was RA with nocturnal oxygen. Will need daily lasix 40mg for her diastolic CHF. Otherwise will d/c to home on Sunday05/31/21. Problems: (1) Acute on chronic diastolic (congestive) heart failure (2) COPD exacerbation (3) General weakness (4) Atrial fibrillation Qualifiers: Qualified Codes: I48.0 - Paroxysmal atrial fibrillation (5) Aortic stenosis Qualifiers: Qualified Codes: I35.0 - Nonrheumatic aortic (valve) stenosis Admission Dx acute on chronic resp failure due to diastolic CHF and COPD exacerbation. Clinical Quality Measures Admission Status Admission Dx acute on chronic resp failure due to diastolic CHF and COPD exacerbation. JUSTIN JOHNSON MD May 27, 2021 13:27
[2021-05-27 15:19] VITALS: BP 112/69
[2021-05-27 19:08] VITALS: BP 108/67
[2021-05-27] MEDS: AMITRIPTYLINE 25 MG (ELAVIL) TAB PO SCH (21:00)
[2021-05-27] MEDS: rOPINIRole 1 MG (REQUIP) TABLET PO SCH (21:00)
[2021-05-27] MEDS: LATANOPROST 0.005% (XALATAN) OPHTH SOLN 2.5 ML OU SCH (21:01)
[2021-05-27] MEDS: LORazepam INJ 2 MG/ML (ATIVAN) VIAL IVP PRN (22:39)
[2021-05-27 23:40] VITALS: BP 114/69
[2021-05-28] MEDS: RT-ALBUTEROL/IPRATROPIUM 3 ML (DUONEB) VIAL INH SCH ×5 (02:48→21:37)
[2021-05-28 04:56] VITALS: BP 127/66
[2021-05-28 07:30] VITALS: BP 124/73
[2021-05-28] MEDS: GABAPENTIN 300 MG (NEURONTIN) CAP PO SCH ×3 (08:19→20:44)
[2021-05-28] MEDS: FUROSEMIDE 40 MG/4 ML INJ (LASIX) IVP SCH (08:19)
[2021-05-28] MEDS: lisINopril 5 MG (PRINIVIL) TABLET PO SCH (08:19)
[2021-05-28] MEDS: SPIRONOLACTONE 25 MG (ALDACTONE) TAB PO SCH (08:20)
[2021-05-28] MEDS: amLODIPine 5 MG (NORVASC) TAB PO SCH (08:21)
[2021-05-28] MEDS: APIXABAN 5 MG (ELIQUIS) TABLET PO SCH ×2 (08:21→20:44)
[2021-05-28] MEDS: NAPHA/PHEN (NAPHCON-A, OPCON-A) OP SOLN 15 ML BTL OS SCH ×4 (08:21→20:44)
--- NOTE | 2021-05-28 09:33 | Progress Note ---
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 THE PATIENT REPORTS THAT SHE IS FEELING BETTER. SHE DENIES CHEST PAIN, SHORTNESS OF BREATH, ABDOMINAL PAIN, NAUSEA. Review of Systems General: No Chills, No Night Sweats HEENT: No Head Aches, No Visual Changes Pulmonary: No Dyspnea, No Cough Cardiovascular: No: Chest Pain, Palpitations Gastrointestinal: No: Nausea, Vomiting Genitourinary: No Dysuria Musculoskeletal: No: neck pain Neurological: Weakness Objective Exam Vital Signs Vital Signs Date Time Temp Pulse Resp B/P (MAP) Pulse Ox O2 Delivery O2 Flow Rate FiO2 05/28/21 08:00 Room Air 05/28/21 07:30 36.3 60 20 124/73 (90) 94 Room Air 05/28/21 07:00 64 05/28/21 06:57 96 Room Air 05/28/21 06:50 97 Nasal Cannula 1.00 05/28/21 04:56 36.4 61 20 127/66 (86) 96 Nasal Cannula 1.00 05/28/21 02:48 60 32 98 45.00 05/28/21 01:00 60 05/27/21 23:40 36.3 60 21 114/69 (84) 99 NIV Bilevel 05/27/21 22:45 60 23 98 45.00 05/27/21 20:59 99 NIV Bilevel 05/27/21 19:08 37.0 64 18 108/67 (81) 95 Nasal Cannula 1.00 05/27/21 19:00 62 05/27/21 15:19 37.0 60 18 112/69 (83) 95 Nasal Cannula 1.00 05/27/21 15:03 98 Room Air 05/27/21 12:52 64 05/27/21 11:30 36.7 64 20 117/67 (84) 97 Nasal Cannula 2.00 05/27/21 11:03 100 Nasal Cannula 4.00 I & O 05/28/21 07:00 Intake Total 1010 ml Output Total 2400 ml Balance -1390 ml General Appearance: No Apparent Distress, Thin HEENT: PERRL/EOMI Neck: Supple Respiratory: Chest Non Tender, Lungs Clear, Decreased Breath Sounds (POOR EFFORT) Cardiovascular: Regular Rate, Rhythm, Systolic Murmur Gastrointestinal: Normal Bowel Sounds, No Pulsatile Mass, Non Tender, Soft Rectal: Deferred Back: No CVA Tenderness Extremity: Non Tender, No Calf Tenderness Neurologic/Psychiatric: Alert, Oriented x3, Normal Mood/Affect Skin: Normal Color, Warm/Dry Assessment/Plan Assessment/Plan Admission Dx (1) Acute on chronic diastolic (congestive) heart failure (2) COPD exacerbation (3) General weakness (4) Atrial fibrillation (5) Aortic stenosis Assessment and Plan ACUTE ON CHRONIC CHF SEVERE AORTIC STENOSIS ACUTE RESPIRATORY FAILURE COPD EXACERBATION CHRONIC PAROXYSMAL ATRIAL FIBRILLATION PROGRESSIVE GENERALIZED WEAKNESS INSOMNIA CHRONIC PERIPHERAL NEUROPATHY HYPERLIPIDEMIA RESTLESS LEG SYNDROME ANEMIA OF CHRONIC DISEASE PLEURAL EFFUSIONS ACUTE ON CHRONIC CHF WITH SEVERE AORTIC STENOSIS - ECHO REPORT - - LEFT VENTRICLE - MOD.CONCENTRIC HYPERTROPHY, EF 60- 65%, - GRADE 3 DIASTOLIC DYSFUNCTION - RIGHT VENT - MILDLY REDUCED SYSTOLIC FUNCTION - LEFT ATRIUM - MOD TO SEVERELY DILATED - RIGHT ATRIUM - MOD TO SEVERELY DILATED - MITRAL VALVE - MOD REGURGITATION - AORTIC VALVE - MOD TO SEVERE STENOSIS AND MOD REGURGITATION - PULMONARY ARTERY - SYSTOLIC PRESSURE 55 - 60mmHg ACUTE RESPIRATORY FAILURE DUE TO CHF AND COPD EXACERBATION - IMPROVED - - PT ON BIPAP AT HS. CHRONIC PAROXYSMAL ATRIAL FIBRILLATION - PT ON ELIQUIS - CONTINUE WITH CURRENT HOME MANAGEMENT PROGRESSIVE GENERALIZED WEAKNESS - CONTINUE WITH PHYSICAL THERAPY - PT WILL NEED MORE THERAPY OUTPATIENT INSOMNIA - PT ON AMITRIPTYLINE CHRONIC PERIPHERAL NEUROPATHY - PT ON GABAPENTIN HYPERLIPIDEMIA - ON STATIN THERAPY RESTLESS LEG SYNDROME - ON REQUIP ANEMIA OF CHRONIC DISEASE - SUPPORTIVE CARE, MONITOR LABS PLEURAL EFFUSIONS - PT ON LASIX, EFFUSIONS RESOLVING WITH BIPAP TRACY REES MD May 28, 2021 09:33
[2021-05-28 10:38] VITALS: BP 124/73
--- NOTE | 2021-05-28 10:40 | Physical Therapy Daily Note ---
PT Daily Note-Current Subjective Pt supine in bed upon arrival to room, agreeable to PT session. She denies pain during session; however, upon standing she states increase knee and back pain, unrated. Appearance Following session, pt up in chair with call light, tray and pone within reach. PAINTER AND BODY MECHANIC APPRENTICE present changing bed sheets. All needs met Mental Status Patient Orientation: Person Attachments: Chavis Catheter Transfers SCALE: Activities may be completed with or without assistive devices. 1-Khuiciebhq-dcowuzn completes the activity by him/herself with no assistance from a helper. 5-Set-up or Clean-up Assistance-helper sets up or cleans up; patient completes activity. [place] assists only prior to or following the activity. 4-Supervision or Touching Assistance-helper provides verbal cues and/or touching/steadying and/or contact guard assistance as patient completes act ivity. Assistance may be provided throughout the activity or intermittently. 3-Partial/Moderate Assistance-helper does LESS THAN HALF the effort. [place] lifts, holds or supports trunk or limbs, but provides less than half the effort. 2-Substantial/Maximal Assistance-helper does MORE THAN HALF the effort. [place] lifts or holds trunk or limbs and provides more than half the effort. 1-Vplweplre-spxwkc does ALL the effort. Patient does none of the effort to complete the activity. Or, the assistance of 2 or more helpers is required for the patient to complete the activity. If activity was not attempted, code reason: 7-Patient Refused. 9-Not Applicable-not attempted and the patient did not perform the activity before the current illness, exacerbation or injury. 10-Not Attempted due to Environmental Limitations-(lack of equipment, weather restraints, etc.). 88-Not Attempted due to Medical Conditions or Safety Concerns. Roll Left & Right (QC): 3 Lying to Sitting/Side of Bed(Q: 3 Sit to Stand (QC): 3 mod A for all bed mobility, max A sit to stand sit to stand x 2 - one at EOB for approx 30s before needing to sit Gait Training Distance: 5-7' Gait Assistive Device: FWW max A VCS for sequencing and walker mgmt. Pt with kyphotic, flexed posture, flexed (B) knees Treatments Pt with very arthritic posture and gait, audible popping with stand-sit. Assessment Current Status: Fair Progress Pt with slow ambulation, and requires verbal and tactile cueing for mobility. Will progress as pt tolerates. PT Short Term Goals Short Term Goals Time Frame: Jun 01, 2021 Roll Left & Right: 5 Sit to lyin Lying to sitting on side of be: 5 Sit to stand: 5 Chair/zlk-zy-ktuff transfer: 5 Toilet transfer: 5 Walk 10 feet: 3 Walk 50 feet with two turns: 3 Does pt use a wc or scooter: No PT Manager Aviation Goals Mcfp Goals PT Manager Aviation Goals Time Frame: Jun 22, 2021 Roll Left & Right (QC): 6 Sit to Lying (QC): 6 Lying-Sitting on Side/Bed(QC): 6 Sit to Stand (QC): 6 Chair/Gau-io-Yxwvc Xfer(QC): 6 Toilet Transfer (QC): 6 Does the Patient Walk: Yes Walk 10 feet (QC): 5 Walk 50ft with 2 Turns (QC): 5 Walk 150 ft (QC): 4 Walking 10ft on Uneven Surface: 3 1 Step (curb) (QC): 3 4 Steps (QC): 3 12 Steps (QC): 3 PT Plan Problem List Problem List: Activity Tolerance, Functional Strength, Safety, Balance, Gait, Transfer, Bed Mobility, ROM Treatment/Plan Treatment Plan: Continue Plan of Care Treatment Plan: Bed Mobility, Education, Functional Activity Katherine, Functional Strength, Group Therapy, Gait, Safety, Therapeutic Exercise, Transfers Treatment Duration: Jul 20, 2021 Frequency: 6 times per week Estimated Hrs Per Day: .25 hour per day Patient and/or Family Agrees t: Yes Time/GCodes Time In: 1017 Time Out: 1028 Total Billed Treatment 1 visit FA (11') MARK CUELLO PT May 28, 2021 10:40
[2021-05-28 13:00] VITALS: BP 107/61
[2021-05-28 15:34] VITALS: BP 101/61
[2021-05-28 19:07] VITALS: BP 100/65
[2021-05-28] MEDS: rOPINIRole 1 MG (REQUIP) TABLET PO SCH (20:43)
[2021-05-28] MEDS: HYDROcodone/APAP 5 MG/325 MG (LORTAB) TAB PO PRN (20:44)
[2021-05-28] MEDS: AMITRIPTYLINE 25 MG (ELAVIL) TAB PO SCH (20:44)
[2021-05-28] MEDS: LATANOPROST 0.005% (XALATAN) OPHTH SOLN 2.5 ML OU SCH (20:44)
[2021-05-28] MEDS: LORazepam INJ 2 MG/ML (ATIVAN) VIAL IVP PRN (23:05)
[2021-05-29] VITALS (7 sets, daily range): BP systolic 102–157; BP diastolic 57–83
[2021-05-29] MEDS: RT-ALBUTEROL/IPRATROPIUM 3 ML (DUONEB) VIAL INH SCH ×4 (02:54→21:11)
[2021-05-29] MEDS: APIXABAN 5 MG (ELIQUIS) TABLET PO SCH ×2 (08:39→19:56)
[2021-05-29] MEDS: FUROSEMIDE 40 MG/4 ML INJ (LASIX) IVP SCH (08:39)
[2021-05-29] MEDS: lisINopril 5 MG (PRINIVIL) TABLET PO SCH (08:40)
[2021-05-29] MEDS: SPIRONOLACTONE 25 MG (ALDACTONE) TAB PO SCH (08:40)
[2021-05-29] MEDS: amLODIPine 5 MG (NORVASC) TAB PO SCH (08:40)
[2021-05-29] MEDS: GABAPENTIN 300 MG (NEURONTIN) CAP PO SCH ×3 (08:40→19:55)
[2021-05-29] MEDS: NAPHA/PHEN (NAPHCON-A, OPCON-A) OP SOLN 15 ML BTL OS SCH ×4 (08:40→19:57)
--- NOTE | 2021-05-29 09:32 | Progress Note ---
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 PT IS SLEEPING, DIFFICULT TO AWAKEN, SHE REPORTS THAT SHE IS FEELING FINE, NOT HAVING SHORTNESS OF BREATH. STAFF REPORTS SHE HAS CONSTIPATION. STAFF ALSO REPORTS PT PULLING OFF HER BIPAP, REFUSAL TO WEAR BIPAP AT NIGHT AND CONFUSION AT HS. Review of Systems General: No Chills, No Night Sweats HEENT: No Head Aches, No Visual Changes Pulmonary: No Dyspnea, No Cough Cardiovascular: No: Chest Pain, Palpitations Gastrointestinal: Constipation; No: Nausea, Vomiting Genitourinary: No Dysuria Musculoskeletal: No: neck pain Neurological: Weakness, Confusion Objective Exam Vital Signs Vital Signs Date Time Temp Pulse Resp B/P (MAP) Pulse Ox O2 Delivery O2 Flow Rate FiO2 05/29/21 08:11 95 Room Air 05/29/21 08:00 Room Air 05/29/21 07:12 36.6 62 20 157/83 (107) 100 NIV Bilevel 05/29/21 07:00 67 05/29/21 04:36 36.2 60 17 102/65 (77) 99 NIV Bilevel 05/29/21 02:54 60 32 98 45.00 05/29/21 01:00 60 05/29/21 00:22 36.0 60 17 116/72 (87) 99 Nasal Cannula 1.00 05/28/21 21:37 60 32 98 45.00 05/28/21 20:45 Room Air 05/28/21 19:07 36.2 60 20 100/65 (77) 93 Nasal Cannula 1.00 05/28/21 19:00 64 05/28/21 15:41 95 Room Air 05/28/21 15:34 36.0 59 16 101/61 (74) 96 Room Air 05/28/21 13:00 59 05/28/21 13:00 37.4 60 18 107/61 (76) 94 Room Air 05/28/21 10:38 36.3 60 94 21 05/28/21 10:35 94 Room Air I & O 05/29/21 07:00 Intake Total 1540 ml Output Total 2050 ml Balance -510 ml General Appearance: No Apparent Distress, Thin HEENT: PERRL/EOMI Neck: Supple Respiratory: Chest Non Tender, Lungs Clear, Decreased Breath Sounds (POOR EFFORT) Cardiovascular: Regular Rate, Rhythm, Systolic Murmur Gastrointestinal: Normal Bowel Sounds, No Pulsatile Mass, Non Tender, Soft Rectal: Deferred Back: No CVA Tenderness Extremity: Non Tender, No Calf Tenderness Neurologic/Psychiatric: Alert, Oriented x3, Normal Mood/Affect Skin: Normal Color, Warm/Dry Assessment/Plan Assessment/Plan Admission Dx (1) Acute on chronic diastolic (congestive) heart failure (2) COPD exacerbation (3) General weakness (4) Atrial fibrillation (5) Aortic stenosis Assessment and Plan ACUTE ON CHRONIC CHF SEVERE AORTIC STENOSIS ACUTE RESPIRATORY FAILURE COPD EXACERBATION CHRONIC PAROXYSMAL ATRIAL FIBRILLATION PROGRESSIVE GENERALIZED WEAKNESS INSOMNIA CHRONIC PERIPHERAL NEUROPATHY HYPERLIPIDEMIA RESTLESS LEG SYNDROME ANEMIA OF CHRONIC DISEASE PLEURAL EFFUSIONS CONSTIPATION ACUTE ON CHRONIC CHF WITH SEVERE AORTIC STENOSIS - ECHO REPORT - - LEFT VENTRICLE - MOD.CONCENTRIC HYPERTROPHY, EF 60- 65%, - GRADE 3 DIASTOLIC DYSFUNCTION - RIGHT VENT - MILDLY REDUCED SYSTOLIC FUNCTION - LEFT ATRIUM - MOD TO SEVERELY DILATED - RIGHT ATRIUM - MOD TO SEVERELY DILATED - MITRAL VALVE - MOD REGURGITATION - AORTIC VALVE - MOD TO SEVERE STENOSIS AND MOD REGURGITATION - PULMONARY ARTERY - SYSTOLIC PRESSURE 55 - 60mmHg ACUTE RESPIRATORY FAILURE DUE TO CHF AND COPD EXACERBATION - IMPROVED - - PT ON BIPAP AT HS. CHRONIC PAROXYSMAL ATRIAL FIBRILLATION - PT ON ELIQUIS - CONTINUE WITH CURRENT HOME MANAGEMENT PROGRESSIVE GENERALIZED WEAKNESS - CONTINUE WITH PHYSICAL THERAPY - PT WILL NEED MORE THERAPY OUTPATIENT INSOMNIA - PT ON AMITRIPTYLINE CHRONIC PERIPHERAL NEUROPATHY - PT ON GABAPENTIN HYPERLIPIDEMIA - ON STATIN THERAPY RESTLESS LEG SYNDROME - ON REQUIP ANEMIA OF CHRONIC DISEASE - SUPPORTIVE CARE, MONITOR LABS PLEURAL EFFUSIONS - PT ON LASIX, EFFUSIONS RESOLVING WITH BIPAP - REPEAT CXR TOMORROW CONSTIPATION - RX FOR SENNA S AND MIRALAX. ANTICIPATE PT TO BE DISCHARGED TO [facility] ON SUNDAY IF ABLE TO GET FACILITY TO ACCEPT PT. Admission Dx (1) Acute on chronic diastolic (congestive) heart failure (2) COPD exacerbation (3) General weakness (4) Atrial fibrillation (5) Aortic stenosis Clinical Quality Measures Admission Status Admission Dx (1) Acute on chronic diastolic (congestive) heart failure (2) COPD exacerbation (3) General weakness (4) Atrial fibrillation (5) Aortic stenosis TRACY REES MD May 29, 2021 09:32
[2021-05-29] MEDS ORDERED: polyethylene glycoL POWDER 17 GM (MIRALAX) PACK PO ONE (11:00)
[2021-05-29] MEDS: SENNA W/DOCUSATE (SENOKOT S) TABLET PO SCH (19:55)
[2021-05-29] MEDS: HYDROcodone/APAP 5 MG/325 MG (LORTAB) TAB PO PRN (19:56)
[2021-05-29] MEDS: rOPINIRole 1 MG (REQUIP) TABLET PO SCH (19:56)
[2021-05-29] MEDS: AMITRIPTYLINE 25 MG (ELAVIL) TAB PO SCH (19:56)
[2021-05-29] MEDS: LATANOPROST 0.005% (XALATAN) OPHTH SOLN 2.5 ML OU SCH (19:56)
[2021-05-30] VITALS (7 sets, daily range): BP systolic 93–117; BP diastolic 51–67
[2021-05-30] MEDS: RT-ALBUTEROL/IPRATROPIUM 3 ML (DUONEB) VIAL INH SCH ×4 (03:06→20:01)
[2021-05-30 06:00] LABS: HEMATOCRIT 35 % (35-52); HEMOGLOBIN 10.7 g/dL (11.5-16.0); MEAN CORPUSCULAR HEMOGLOBIN 27 pg (25-34); MEAN CORPUSCULAR HGB CONC 30 g/dL (32-36); MEAN CORPUSCULAR VOLUME 89 fL (80-99); MEAN PLATELET VOLUME 11.6 fL (9.0-12.2); PLATELET COUNT 245 10^3/uL (130-400); WHITE BLOOD COUNT 5.9 10^3/uL (4.3-11.0)
[2021-05-30 06:14] LABS: CALCIUM 8.7 MG/DL (8.5-10.1)
[2021-05-30 06:18] LABS: CREATININE SERUM 0.88 MG/DL (0.60-1.30)
[2021-05-30] MEDS: FUROSEMIDE 40 MG/4 ML INJ (LASIX) IVP SCH (08:57)
[2021-05-30] MEDS: NAPHA/PHEN (NAPHCON-A, OPCON-A) OP SOLN 15 ML BTL OS SCH ×4 (08:57→21:15)
[2021-05-30] MEDS: GABAPENTIN 300 MG (NEURONTIN) CAP PO SCH ×3 (08:58→21:14)
[2021-05-30] MEDS: SPIRONOLACTONE 25 MG (ALDACTONE) TAB PO SCH (08:58)
[2021-05-30] MEDS: lisINopril 5 MG (PRINIVIL) TABLET PO SCH (08:59)
[2021-05-30] MEDS: APIXABAN 5 MG (ELIQUIS) TABLET PO SCH ×2 (08:59→21:14)
[2021-05-30] MEDS: amLODIPine 5 MG (NORVASC) TAB PO SCH (09:00)
[2021-05-30] MEDS: SENNA W/DOCUSATE (SENOKOT S) TABLET PO SCH ×2 (09:00→21:14)
--- NOTE | 2021-05-30 09:03 | Progress Note ---
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 PT IS SLEEPING, DIFFICULT TO AWAKEN, SHE REPORTS THAT SHE IS FEELING FINE, NOT HAVING SHORTNESS OF BREATH. STAFF REPORTS SHE HAS CONSTIPATION. STAFF ALSO REPORTS PT PULLING OFF HER BIPAP, REFUSAL TO WEAR BIPAP AT NIGHT AND CONFUSION AT HS. Review of Systems General: No Chills, No Night Sweats HEENT: No Head Aches, No Visual Changes Pulmonary: No Dyspnea, No Cough Cardiovascular: No: Chest Pain, Palpitations Gastrointestinal: Abdominal Pain, Constipation, Other (GAS AND BLOATING); No: Nausea, Vomiting Genitourinary: No Dysuria Musculoskeletal: No: neck pain Neurological: Weakness, Confusion Objective Exam Vital Signs Vital Signs Date Time Temp Pulse Resp B/P (MAP) Pulse Ox O2 Delivery O2 Flow Rate FiO2 05/30/21 07:43 94 Room Air 05/30/21 07:40 36.5 63 18 115/57 (76) 94 Room Air 05/30/21 07:00 65 05/30/21 04:23 36.0 59 18 102/67 (79) 100 Room Air 05/30/21 03:06 65 16 97 45.00 05/30/21 01:00 60 05/29/21 23:44 36.8 63 18 113/69 (84) 90 Room Air 05/29/21 21:11 96 Room Air 05/29/21 20:00 Room Air 05/29/21 19:21 36.8 63 18 110/57 (74) 93 Room Air 05/29/21 19:00 64 05/29/21 16:00 36.5 60 20 104/61 (75) 95 Room Air 05/29/21 15:12 94 Room Air 05/29/21 13:00 60 05/29/21 11:16 36.8 64 18 106/63 (77) 94 Room Air I & O 05/30/21 06:59 Intake Total 1300 ml Output Total 2725 ml Balance -1425 ml General Appearance: No Apparent Distress, Thin HEENT: PERRL/EOMI Neck: Supple Respiratory: Chest Non Tender, Lungs Clear, Decreased Breath Sounds (POOR EFFORT) Cardiovascular: Regular Rate, Rhythm, Systolic Murmur Gastrointestinal: Normal Bowel Sounds, No Pulsatile Mass, Soft, Tenderness (MILD), Other (TYMPANITIC) Rectal: Deferred Back: No CVA Tenderness Extremity: Non Tender, No Calf Tenderness Neurologic/Psychiatric: Alert, Oriented x3, Normal Mood/Affect Skin: Normal Color, Warm/Dry Results Lab Laboratory Tests 05/30/21 05:20: White Blood Count 5.9, Red Blood Count 3.99, Hemoglobin 10.7L, Hematocrit 35, Mean Corpuscular Volume 89, Mean Corpuscular Hemoglobin 27, Mean Corpuscular Hemoglobin Concent 30L, Red Cell Distribution Width 15.4H, Platelet Count 245, Mean Platelet Volume 11.6, Sodium Level 138, Potassium Level 4.0, Chloride Level 101, Carbon Dioxide Level 31, Anion Gap 6, Blood Urea Nitrogen 28H, Creatinine 0.88, Estimat Glomerular Filtration Rate 62, BUN/Creatinine Ratio 32, Glucose Level 90, Calcium Level 8.7 Assessment/Plan Assessment/Plan Admission Dx (1) Acute on chronic diastolic (congestive) heart failure (2) COPD exacerbation (3) General weakness (4) Atrial fibrillation (5) Aortic stenosis Assessment and Plan ACUTE ON CHRONIC CHF SEVERE AORTIC STENOSIS ACUTE RESPIRATORY FAILURE COPD EXACERBATION CHRONIC PAROXYSMAL ATRIAL FIBRILLATION PROGRESSIVE GENERALIZED WEAKNESS INSOMNIA CHRONIC PERIPHERAL NEUROPATHY HYPERLIPIDEMIA RESTLESS LEG SYNDROME ANEMIA OF CHRONIC DISEASE PLEURAL EFFUSIONS CONSTIPATION GAS AND BLOATING ACUTE ON CHRONIC CHF WITH SEVERE AORTIC STENOSIS - IV LASIX - ECHO REPORT - - LEFT VENTRICLE - MOD.CONCENTRIC HYPERTROPHY, EF 60- 65%, - GRADE 3 DIASTOLIC DYSFUNCTION - RIGHT VENT - MILDLY REDUCED SYSTOLIC FUNCTION - LEFT ATRIUM - MOD TO SEVERELY DILATED - RIGHT ATRIUM - MOD TO SEVERELY DILATED - MITRAL VALVE - MOD REGURGITATION - AORTIC VALVE - MOD TO SEVERE STENOSIS AND MOD REGURGITATION - PULMONARY ARTERY - SYSTOLIC PRESSURE 55 - 60mmHg ACUTE RESPIRATORY FAILURE DUE TO CHF AND COPD EXACERBATION - IMPROVED - CONTINUE WITH SUPPORTIVE CARE AND CURRENT MEDICATIONS. CHRONIC PAROXYSMAL ATRIAL FIBRILLATION - PT ON ELIQUIS - CONTINUE WITH CURRENT HOME MANAGEMENT PROGRESSIVE GENERALIZED WEAKNESS - CONTINUE WITH PHYSICAL THERAPY - PT WILL NEED MORE THERAPY OUTPATIENT INSOMNIA - PT ON AMITRIPTYLINE CHRONIC PERIPHERAL NEUROPATHY - PT ON GABAPENTIN HYPERLIPIDEMIA - ON STATIN THERAPY RESTLESS LEG SYNDROME - ON REQUIP ANEMIA OF CHRONIC DISEASE - SUPPORTIVE CARE, MONITOR LABS PLEURAL EFFUSIONS - PT ON LASIX, EFFUSIONS RESOLVING WITH BIPAP - REPEAT CXR PENDING CONSTIPATION - RX FOR SENNA S AND MIRALAX. - NOW WITH GAS AND BLOATING - RX FOR SIMETHICONE QID ANTICIPATE PT TO BE DISCHARGED TO [facility] ON SUNDAY IF ABLE TO GET FACILITY TO ACCEPT PT. Admission Dx (1) Acute on chronic diastolic (congestive) heart failure (2) COPD exacerbation (3) General weakness (4) Atrial fibrillation (5) Aortic stenosis Clinical Quality Measures Admission Status Admission Dx (1) Acute on chronic diastolic (congestive) heart failure (2) COPD exacerbation (3) General weakness (4) Atrial fibrillation (5) Aortic stenosis TRACY REES MD May 30, 2021 09:03
[2021-05-30] MEDS ORDERED: polyethylene glycoL POWDER 17 GM (MIRALAX) PACK PO PRN (09:15)
[2021-05-30] MEDS ORDERED: SIMETHICONE 80 MG (MYLICON) CHEW PO ONE (10:00)
--- NOTE | 2021-05-30 11:02 | Diagnostic Imaging Report ---
INDICATION: Congestive heart failure. TECHNIQUE: Two view chest 10:30 AM CORRELATION STUDY: 02/23/2017 FINDINGS: Right-sided pacemaker. Heart size enlarged. Vasculature overall slightly prominent. Small pleural effusions are present. No consolidating infiltrate. Stomach is mildly distended with gas. IMPRESSION: 1. Cardiac enlargement. Vasculature slightly increased and there has been development of small pleural effusions may reflect a mild fluid overload or failure. Dictated by: Dictated on workstation # [id number]
--- NOTE | 2021-05-30 12:24 | Physical Therapy Daily Note ---
PT Daily Note-Current Subjective Pt up in chair, agreeable. Mildly confused, states she had "horrible pain" across the lower abdomen "this morning" but denies pain currently. Mental Status Patient Orientation: Person, Confused Attachments: Chavis Catheter Transfers SCALE: Activities may be completed with or without assistive devices. 9-Hknflkcysf-kmypzke completes the activity by him/herself with no assistance from a helper. 5-Set-up or Clean-up Assistance-helper sets up or cleans up; patient completes activity. [place] assists only prior to or following the activity. 4-Supervision or Touching Assistance-helper provides verbal cues and/or touching/steadying and/or contact guard assistance as patient completes activity. Assistance may be provided throughout the activity or intermittently. 3-Partial/Moderate Assistance-helper does LESS THAN HALF the effort. [place] lifts, holds or supports trunk or limbs, but provides less than half the effort. 2-Substantial/Maximal Assistance-helper does MORE THAN HALF the effort. [place] lifts or holds trunk or limbs and provides more than half the effort. 9-Cyivctbbd-uwucny does ALL the effort. Patient does none of the effort to complete the activity. Or, the assistance of 2 or more helpers is required for the patient to complete the activity. If activity was not attempted, code reason: 7-Patient Refused. 9-Not Applicable-not attempted and the patient did not perform the activity before the current illness, exacerbation or injury. 10-Not Attempted due to Environmental Limitations-(lack of equipment, weather restraints, etc.). 88-Not Attempted due to Medical Conditions or Safety Concerns. Sit to Stand (QC): 2 Sit<->stand x 1 with max A x 1. Pt initially very retropulsive with standing, able to correct with VCS and tactile cues but only maintains for about 10" before becoming retropulsive again. Max A x 1 stand->sit to control descent despite max VCS. Pt stood roughly 30". Exercises Supine Ex: Ankle pumps, Quad Set Supine Reps: 20 Treatments QS and AP in recliner. Max VCS, tactile cues to complete all reps. Sit<->stand transfer training. Up in chair with needs met, chair alarm activated. Assisted with set up on lunch tray. Assessment Current Status: Poor Progress Pt tolerated fair-well. Decreased command following for safety. PT Short Term Goals Short Term Goals Time Frame: Jun 01, 2021 Roll Left & Right: 5 Sit to lyin Lying to sitting on side of be: 5 Sit to stand: 5 Chair/gsp-rh-nyyks transfer: 5 Toilet transfer: 5 Walk 10 feet: 3 Walk 50 feet with two turns: 3 Does pt use a wc or scooter: No PT Biologist Aide Goals Longterm Goals PT Biologist Aide Goals Time Frame: Jun 22, 2021 Roll Left & Right (QC): 6 Sit to Lying (QC): 6 Lying-Sitting on Side/Bed(QC): 6 Sit to Stand (QC): 6 Chair/Qzm-ym-Aysdw Xfer(QC): 6 Toilet Transfer (QC): 6 Does the Patient Walk: Yes Walk 10 feet (QC): 5 Walk 50ft with 2 Turns (QC): 5 Walk 150 ft (QC): 4 Walking 10ft on Uneven Surface: 3 1 Step (curb) (QC): 3 4 Steps (QC): 3 12 Steps (QC): 3 PT Plan Problem List Problem List: Activity Tolerance, Functional Strength, Safety, Balance, Gait, Transfer, Bed Mobility, ROM Treatment/Plan Treatment Plan: Continue Plan of Care Treatment Plan: Bed Mobility, Education, Functional Activity Katherine, Functional Strength, Group Therapy, Gait, Safety, Therapeutic Exercise, Transfers Treatment Duration: Jul 20, 2021 Frequency: 6 times per week Estimated Hrs Per Day: .25 hour per day Patient and/or Family Agrees t: Yes Discharge Recommendations Therapy Discharge Recommendati: 24 Hour Supervision, Post Acute PT Time/GCodes Time In: 1156 Time Out: 1214 Total Billed Treatment Time: 18 Total Billed Treatment 1, FA x 18' JE PEREZ DPT May 30, 2021 12:24
[2021-05-30] MEDS: SIMETHICONE 80 MG (MYLICON) CHEW PO SCH ×3 (13:58→21:14)
[2021-05-30] MEDS: AMITRIPTYLINE 25 MG (ELAVIL) TAB PO SCH (21:14)
[2021-05-30] MEDS: rOPINIRole 1 MG (REQUIP) TABLET PO SCH (21:14)
[2021-05-30] MEDS: LATANOPROST 0.005% (XALATAN) OPHTH SOLN 2.5 ML OU SCH (21:15)
[2021-05-31] MEDS: RT-ALBUTEROL/IPRATROPIUM 3 ML (DUONEB) VIAL INH SCH ×2 (02:19→07:21)
[2021-05-31 03:15] VITALS: BP 97/56
[2021-05-31 07:42] VITALS: BP 107/58
[2021-05-31] MEDS: APIXABAN 5 MG (ELIQUIS) TABLET PO SCH (08:56)
[2021-05-31] MEDS: lisINopril 5 MG (PRINIVIL) TABLET PO SCH (08:56)
[2021-05-31] MEDS: GABAPENTIN 300 MG (NEURONTIN) CAP PO SCH ×2 (08:56→13:12)
[2021-05-31] MEDS: amLODIPine 5 MG (NORVASC) TAB PO SCH (08:56)
[2021-05-31] MEDS: SENNA W/DOCUSATE (SENOKOT S) TABLET PO SCH (08:56)
[2021-05-31] MEDS: SIMETHICONE 80 MG (MYLICON) CHEW PO SCH ×2 (08:56→13:11)
[2021-05-31] MEDS: FUROSEMIDE 40 MG/4 ML INJ (LASIX) IVP SCH ×2 (08:57→09:09)
[2021-05-31] MEDS: SPIRONOLACTONE 25 MG (ALDACTONE) TAB PO SCH (08:57)
[2021-05-31] MEDS: NAPHA/PHEN (NAPHCON-A, OPCON-A) OP SOLN 15 ML BTL OS SCH ×2 (08:58→13:14)
--- NOTE | 2021-05-31 09:17 | Physical Therapy Daily Note ---
PT Daily Note-Current Subjective Pt in bed and agrees to tx. Mental Status Patient Orientation: Person, Confused Attachments: Chavis Catheter Transfers SCALE: Activities may be completed with or without assistive devices. 5-Njpcgcqljf-jiabsnv completes the activity by him/herself with no assistance from a helper. 5-Set-up or Clean-up Assistance-helper sets up or cleans up; patient completes activity. [place] assists only prior to or following the activity. 4-Supervision or Touching Assistance-helper provides verbal cues and/or touching/steadying and/or contact guard assistance as patient completes activity. Assistance may be provided throughout the activity or intermittently. 3-Partial/Moderate Assistance-helper does LESS THAN HALF the effort. [place] l ifts, holds or supports trunk or limbs, but provides less than half the effort. 2-Substantial/Maximal Assistance-helper does MORE THAN HALF the effort. [place] lifts or holds trunk or limbs and provides more than half the effort. 4-Yvcsuozhg-nxwjqg does ALL the effort. Patient does none of the effort to complete the activity. Or, the assistance of 2 or more helpers is required for t he patient to complete the activity. If activity was not attempted, code reason: 7-Patient Refused. 9-Not Applicable-not attempted and the patient did not perform the activity before the current illness, exacerbation or injury. 10-Not Attempted due to Environmental Limitations-(lack of equipment, weather restraints, etc.). 88-Not Attempted due to Medical Conditions or Safety Concerns. Roll Left & Right (QC): 3 Exercises Supine Ex: Ankle pumps, Scooting, Straight leg raise, Hip abd/add Supine Reps: 10 Treatments Pt in bed performs supine ex. Pt performs bed mobility requiring Mike, as well as VC and TC for LE placement. Pt rolls R to L, followed by scooting up in the bed. Pt intrusted to flex B LE and push up and CAN TECHNICIAN A pt w/ slide sheet. Pt remains in bed w/ all needs met, call light in hand. Assessment Current Status: Fair Progress Pt required multiple VC and TC to stay focused throughout tx and slightly confused. PT Short Term Goals Short Term Goals Time Frame: Jun 01, 2021 Roll Left & Right: 5 Sit to lyin Lying to sitting on side of be: 5 Sit to stand: 5 Chair/vzj-ou-gudfa transfer: 5 Toilet transfer: 5 Walk 10 feet: 3 Walk 50 feet with two turns: 3 Does pt use a wc or scooter: No PT Care Home Goals Sales Vice President Goals PT Sales Vice President Goals Time Frame: Jun 22, 2021 Roll Left & Right (QC): 6 Sit to Lying (QC): 6 Lying-Sitting on Side/Bed(QC): 6 Sit to Stand (QC): 6 Chair/Zll-et-Euygs Xfer(QC): 6 Toilet Transfer (QC): 6 Does the Patient Walk: Yes Walk 10 feet (QC): 5 Walk 50ft with 2 Turns (QC): 5 Walk 150 ft (QC): 4 Walking 10ft on Uneven Surface: 3 1 Step (curb) (QC): 3 4 Steps (QC): 3 12 Steps (QC): 3 PT Plan Treatment/Plan Treatment Plan: Continue Plan of Care Treatment Plan: Bed Mobility, Education, Functional Activity Katherine, Functional Strength, Group Therapy, Gait, Safety, Therapeutic Exercise, Transfers Treatment Duration: Jul 20, 2021 Frequency: 6 times per week Estimated Hrs Per Day: .25 hour per day Patient and/or Family Agrees t: Yes Safety Risks/Education Patient Education: Correct Positioning Teaching Recipient: Patient Teaching Methods: Discussion Response to Teaching: Reinforcement Needed Time/GCodes Time In: 817 Time Out: 826 Total Billed Treatment Time: 9 Total Billed Treatment BENNETT Hinton SYDNEY PTA May 31, 2021 09:17
[2021-05-31] MEDS ORDERED: FUROSEMIDE 40 MG (LASIX) TAB PO SCH (09:30)
[2021-05-31] MEDS: HYDROcodone/APAP 5 MG/325 MG (LORTAB) TAB PO PRN (09:45)
[2021-05-31 11:22] VITALS: BP 116/73
--- NOTE | 2021-05-31 12:59 | Discharge Summary ---
Discharge Summary Hospital Course Problems/Dx: (1) Acute on chronic diastolic (congestive) heart failure (2) COPD exacerbation Status: Acute (3) General weakness Status: Acute (4) Atrial fibrillation Qualifiers: Qualified Codes: I48.0 - Paroxysmal atrial fibrillation (5) Aortic stenosis Qualifiers: Qualified Codes: I35.0 - Nonrheumatic aortic (valve) stenosis Hospital Course Date of Admission: May 24, 2021 at 20:16 Admission Diagnosis : Family Physician/Provider: Jason Johnson MD Date of Discharge: 05/31/21 Discharge Diagnosis: [ ] Hospital Course: [ ] Labs and Pending Lab Test: Home Meds Active Reported Cranberry 400 Mg Capsule 400 Mg PO DAILY Preservision Areds 2 Softgel (Vit C/E/Zn/Coppr/Lutein/Zeaxan) 1 Each Capsule 1 Each PO DAILY Fish Oil 1,000 mg Capsule ([place] 3 Polyunsat Fatty Acids) 1,000 Mg Cap 1,000 Mg PO DAILY Loratadine 10 Mg Tablet 10 Mg PO DAILY ALPRAZolam 0.25 Mg Tablet 0.25 Mg PO Q8H PRN Ondansetron HCl 4 Mg Tablet 4 Mg PO Q6H PRN Hydrocodone-Acetamin 5-325 mg (Hydrocodone/Acetaminophen) 1 Each Tablet 1 Tab PO Q6H PRN Tramadol HCl 50 Mg Tablet 50 Mg PO BID PRN Amlodipine Besylate 5 Mg Tablet 5 Mg PO DAILY Naphcon-A Eye Drops (Naphazoline/Pheniramine) 15 Ml Soln 1 Drop OS QID Lisinopril 5 Mg Tablet 2.5 Mg PO DAILY TAKES (5MG) TABLET Spironolactone 25 Mg Tablet 12.5 Mg PO DAILY TAKES OF A 25MG TAB Sennosides-Docusate Sodium Tab (Sennosides/Docusate Sodium) 1 Each Tablet 1 Each PO BID Carvedilol 3.125 Mg Tablet 3.125 Mg PO BID Pravastatin Sodium 10 Mg Tablet 10 Mg PO HS Mobic (Meloxicam) 7.5 Mg Tablet 7.5 Mg PO DAILY Eliquis (Apixaban) 5 Mg Tablet 5 Mg PO BID Citalopram HBr (Citalopram Hydrobromide) 10 Mg Tablet 10 Mg PO HS Proair Hfa (Albuterol Sulfate) 1 Puff Puff 4 Puff IH Q8H PRN Xalatan (Latanoprost) 2.5 Ml Drops 1 Drop OU HS Potassium Chloride 20 Meq Tablet.er 20 Meq PO DAILY Breo Ellipta 200-25 Mcg INH (Fluticasone/Vilanterol) 1 Each Blst.w.dev 1 Puff IH DAILY Neurontin (Gabapentin) 300 Mg Capsule 300 Mg PO TID Amitriptyline HCl 25 Mg Tablet 25 Mg PO HS Ropinirole HCl 1 Mg Tablet 1 Mg PO HS Assessment/Pt Instructions Resume home health- prior to admission. PT/OT/nursing Discharge Planning: >30 minutes discharge planning Discharge Physical Examination Vital Signs Vital Signs Date Time Temp Pulse Resp B/P (MAP) Pulse Ox O2 Delivery O2 Flow Rate FiO2 05/31/21 11:22 36.0 63 20 116/73 (87) 95 Room Air 05/31/21 02:19 45.00 05/28/21 10:38 21 General Appearance: No Apparent Distress, WD/WN HEENT: PERRL/EOMI Respiratory: Chest Non Tender, Lungs Clear, Normal Breath Sounds Cardiovascular: Regular Rate, Rhythm, Systolic Murmur Gastrointestinal: Non Tender, Soft Extremity: Non Tender, No Calf Tenderness Skin: Normal Color, Warm/Dry Neurologic/Psychiatric: Alert Allergies: Coded Allergies: doxycycline (Unverified Allergy, Mild, 11/26/17) Discharge Summary Date of Admission May 24, 2021 at 20:16 Date of Discharge 05/31/2021 Consults/Procedures Procedures echocardiogram- significant for worsening aortic stenosis. Discharge Diagnosis (1) Acute on chronic diastolic (congestive) heart failure (2) COPD exacerbation Status: Acute (3) General weakness Status: Acute (4) Atrial fibrillation Qualifiers: Qualified Codes: I48.0 - Paroxysmal atrial fibrillation (5) Aortic stenosis Qualifiers: Qualified Codes: I35.0 - Nonrheumatic aortic (valve) stenosis JASON JOHNSON MD May 31, 2021 12:59
[2021-05-31] MEDS ORDERED: FURO-124 PO (13:04)
--- NOTE | 2021-05-31 13:37 | D/C HH Face to Face Order ---
D/C Face to Face Orders Instructions for Patient Via [facility], Patient Instructions/FollowUp: Resume home health. Physician to follow Patient: Jason Johnson MD Discharge Diet for Home: Regular Diet Patient Problems: COPD acute on chronic congestive heart failure. nocturnal hypoxia paroxysmal atrial fibrillation severe aortic stenosis Patient Data-Allergies,Ht & Wt Patient Allergies: Coded Allergies: doxycycline (Unverified Allergy, Mild, 11/26/17) Height (Feet): 5 Height (Inches): 4.00 Weight (Pounds): 182 Weight (Ounces): 0.6 Home Health Need/Face to Face Date of Face to Face: May 31, 2021 Clinical Findings: Generalized weakness and fatigue, Muscle weakness, Shortness of breath, Unsteady gait I have seen Pt [id number]: Yes Discharged To: Home Diagnosis/Conditions: COPD acute on chronic congestive heart failure. nocturnal hypoxia paroxysmal atrial fibrillation severe aortic stenosis Patient is Homebound due to: Josie fall risk due to instabilty, Muscle weakn ess, Shortness of breath/distress Homebound Status Due to the above stated illness, injury or surgical procedure (medical condition or diagnosis) and associated clinical findings, the patient is homebound because of his/her inability to leave home except with aid of a supportive device and/or person AND leaving the home requires a considerable and taxing effort or is medically contraindicated. Pt req the following assistanc: [facility] Nursing Orders Home Health Services Order: Nursing Services, Commissary Worker-Evaluate & Treat, Physical Therapy-Evaluate & Treat Home Health Infusion Therapy Line Start Date: May 25, 2021 Therapy Orders Therapy Orders: OT (must have SN or PT order), Physical Therapy Therapy Specific Orders: Eval assistive deivces, Gait training, Increase strength/endurance Certify Stmt I certify that this patient is under my care and that I, a nurse practitioner or a physician; a assistant program director working with me, had a face to face encounter that - meets the physician face to face encounter requirements with this patient as dated. JASON JOHNSON MD May 31, 2021 13:37
[2021-05-31 14:45] VITALS: BP 116/73
== END 2021-05-31 14:45 | disposition home health service (06) | DRG 291 ==
LOC: EDUNIT# 17:42 → ER 17:44 → 4TH 20:16
PROVIDERS: ADMIT Family Medicine; ATTEND Family Medicine
PROC: 5A09357 Assistance with Respiratory Ventilation, Less than 24 Consecutive Hours, Continuous Positive Airway Pressure (ICD-10-PCS; principal; 2021-05-27)
DX: I11.0 Hypertensive heart disease with heart failure (principal); J96.21 Acute and chronic respiratory failure with hypoxia; J44.1 Chronic obstructive pulmonary disease with (acute) exacerbation; J90 Pleural effusion, not elsewhere classified; I50.33 Acute on chronic diastolic (congestive) heart failure; E87.70 Fluid overload, unspecified; Z95.0 Presence of cardiac pacemaker; G47.39 Other sleep apnea; E78.00 Pure hypercholesterolemia, unspecified; G25.81 Restless legs syndrome; Z86.73 Personal history of transient ischemic attack (TIA), and cerebral infarction without residual deficits; K21.9 Gastro-esophageal reflux disease without esophagitis; M19.90 Unspecified osteoarthritis, unspecified site; G89.29 Other chronic pain; M54.9 Dorsalgia, unspecified; Z20.822 Contact with and (suspected) exposure to COVID-19; H40.9 Unspecified glaucoma; F41.9 Anxiety disorder, unspecified; F32.9 Major depressive disorder, single episode, unspecified; R33.9 Retention of urine, unspecified; I48.0 Paroxysmal atrial fibrillation; I35.0 Nonrheumatic aortic (valve) stenosis; G47.00 Insomnia, unspecified; G62.9 Polyneuropathy, unspecified; D63.8 Anemia in other chronic diseases classified elsewhere; R53.1 Weakness; Z79.899 Other long term (current) drug therapy; Z86.16 Personal history of COVID-19
CPT/HCPCS: 36415; 36600; 71045; 71046; 73630; 80048; 80053; 80069; 82805; 82947; 83735; 83880; 84100; 84484; 85007; 85025; 85027; 86141; 87636; 93005; 93041; 93306; 94640; 94660; 94760; 96374; 96375

== ENCOUNTER 2022-03-26 16:22 | Inpatient (IN) | payer MEDICARE ==
[~2022-03-26] VITALS: Ht 157.5 cm; Wt 66.9 kg
[~2022-03-26 16:22] MED LIST changes: +AMLO-250 PO; -CITA10TA7 PO; +CITA10TA9 PO; +CRAN400C PO; +FURO-124 PO; -LISI-729 PO; +LISI5TAB20 PO; +MONT-40 PO; -MONT10TA32 PO; +ONDA-105 PO; +POTA-179 PO; +PRED10TA22 PO; -VERA240T14 PO; +VERA240T90 PO; +VIT1CAPS44 PO
[2022-03-26] MEDS ORDERED: RT-ALBUTEROL SULF 2.5 MG/3 ML PRE-MIX VIAL INH STA (16:34)
[2022-03-26] MEDS ORDERED: methylPREDNISolone 125 MG (Solu-MEDROL) VIAL IV STA (16:34)
--- NOTE | 2022-03-26 16:41 | ED Respiratory ---
General Chief Complaint: Respiratory Problems Stated Complaint: SOA Source: patient, family (son), EMS Exam Limitations: no limitations (PEPITO JOHN) History of Present Illness Date Seen by Provider: Mar 26, 2022 Time Seen by Provider: 16:27 Initial Comments Patient to the ER by EMS from home with chief complaint of shortness of air worsening today. History of stroke with right-sided arm swelling and right- sided deficits upper and lower extremity. Son noticed maybe a little more swelling in her right leg than usual. She has a history of heart failure with fluid around her heart he says. She has a history of COPD. She does not contribute much to her history besides saying she is not having pain or nausea. No known fevers or chills. She does not know if she had COVID vaccination. (PEPITO JOHN) Allergies and Home Medications Allergies Coded Allergies: doxycycline (Unverified Allergy, Mild, 11/26/17) Patient Home Medication List Home Medication List Reviewed: Yes (PEPITO JOHN) ALPRAZolam (ALPRAZolam) 0.25 Mg Tablet, 0.25 MG PO Q8H PRN for ANXIETY, (Rep orted) Entered as Reported by: ABHIJEET FELIPE on 05/25/21 1413 Albuterol Sulfate (Proair Hfa) 1 Puff Puff, 4 PUFF IH Q8H PRN for SHORTNESS OF BREATH, (Reported) Entered as Reported by: ABHIJEET FELIPE on 02/24/21 1308 Amitriptyline HCl (Amitriptyline HCl) 25 Mg Tablet, 25 MG PO HS, (Reported) Entered as Reported by: SREEDHAR MCMANUS on 09/26/20 1610 Amlodipine Besylate (Amlodipine Besylate) 5 Mg Tablet, 5 MG PO DAILY, (Reported) Entered as Reported by: ABHIJEET FELIPE on 05/25/21 1413 Apixaban (Eliquis) 5 Mg Tablet, 5 MG PO BID, (Reported) Entered as Reported by: ABHIJEET FELIPE on 02/24/21 1308 Carvedilol (Carvedilol) 3.125 Mg Tablet, 3.125 MG PO BID, (Reported) Entered as Reported by: GALDINO FELDMAN on 04/11/21 0953 Citalopram Hydrobromide (Citalopram HBr) 10 Mg Tablet, 10 MG PO HS, (Reported) Entered as Reported by: ABHIJEET FELIPE on 02/24/21 1308 Cranberry (Cranberry) 400 Mg Capsule, 400 MG PO DAILY, (Reported) Entered as Reported by: ABHIJEET FELIPE on 05/25/21 1413 Fluticasone/Vilanterol (Breo Ellipta 200-25 Mcg INH) 1 Each Blst.w.dev, 1 PUFF IH DAILY, (Reported) Entered as Reported by: SREEDHAR MCMANUS on 09/26/20 1614 Furosemide (Lasix) 40 Mg Tablet, 40 MG PO DAILY Prescribed by: JUSTIN JOHNSON on 05/31/21 1304 Gabapentin (Neurontin) 300 Mg Capsule, 300 MG PO TID, (Reported) Entered as Reported by: SREEDHAR MCMANUS on 09/26/20 1610 Hydrocodone/Acetaminophen (Hydrocodone-Acetamin 5-325 mg) 1 Each Tablet, 1 TAB PO Q6H PRN for PAIN-MODERATE (5-7), (Reported) Entered as Reported by: ABHIJEET FELIPE on 05/25/21 1413 Latanoprost (Xalatan) 2.5 Ml Drops, 1 DROP OU HS, (Reported) Entered as Reported by: ABHIJEET FELIPE on 09/28/20 0910 Lisinopril (Lisinopril) 5 Mg Tablet, 2.5 MG PO DAILY, (Reported) Entered as Reported by: GALDINO FELDMAN on 04/11/21 0953 Loratadine (Loratadine) 10 Mg Tablet, 10 MG PO DAILY, (Reported) Entered as Reported by: ABHIJEET FELIPE on 05/25/21 1413 Meloxicam (Mobic) 7.5 Mg Tablet, 7.5 MG PO DAILY, (Reported) Entered as Reported by: ABHIJEET FELIPE on 03/03/21 0844 Naphazoline/Pheniramine (Naphcon-A Eye Drops) 15 Ml Soln, 1 DROP OS QID, (Reported) Entered as Reported by: GALDINO FELDMAN on 04/11/21 0953 [place] 3 Polyunsat Fatty Acids (Fish Oil 1,000 mg Capsule) 1,000 Mg Cap, 1,000 MG PO DAILY, (Reported) Entered as Reported by: ABHIJEET FELIPE on 05/25/21 1413 Ondansetron HCl (Ondansetron HCl) 4 Mg Tablet, 4 MG PO Q6H PRN for NAUSEA/VOMITING-1ST LINE, (Reported) Entered as Reported by: ABHIJEET FELIPE on 05/25/21 1413 Potassium Chloride (Potassium Chloride) 20 Meq Tablet.er, 20 MEQ PO DAILY, (Reported) Entered as Reported by: ABHIJEET FELIPE on 09/28/20 0910 Pravastatin Sodium (Pravastatin Sodium) 10 Mg Tablet, 10 MG PO HS, (Reported) Entered as Reported by: ABHIJEET FELIPE on 03/03/21 0844 Prednisone (Prednisone) 10 Mg Tab.ds.pk, 10 MG PO DAILY Prescribed by: DIMAS HERNANDEZ on 12/29/21 1329 Ropinirole HCl (Ropinirole HCl) 1 Mg Tablet, 1 MG PO HS, (Reported) Entered as Reported by: ESTEFANÍA FIORE on 11/26/17 0843 Sennosides/Docusate Sodium (Sennosides-Docusate Sodium Tab) 1 Each Tablet, 1 EACH PO BID, (Reported) Entered as Reported by: GALDINO FELDMAN on 04/11/21 0953 Spironolactone (Spironolactone) 25 Mg Tablet, 12.5 MG PO DAILY, (Reported) Entered as Reported by: GALDINO FELDMAN on 04/11/21 0953 Tramadol HCl (Tramadol HCl) 50 Mg Tablet, 50 MG PO BID PRN for PAIN-MODERATE (5- 7), (Reported) Entered as Reported by: ABHIJEET FELIPE on 05/25/21 1413 Vit C/E/Zn/Coppr/Lutein/Zeaxan (Preservision Areds 2 Softgel) 1 Each Capsule, 1 EACH PO DAILY, (Reported) Entered as Reported by: ABHIJEET FELIPE on 05/25/21 1413 Review of Systems Review of Systems Constitutional: No chills, No diaphoresis EENTM: No ear discharge, No ear pain Respiratory: cough, short of breath, wheezing Cardiovascular: No edema, No palpitations Gastrointestinal: No abdominal pain, No constipation, No diarrhea, No nausea Genitourinary: No discharge, No dysuria Musculoskeletal: No back pain, No joint pain (PEPITO JOHN) All Other Systems Reviewed Negative Unless Noted: Yes (PEPITO JOHN) Past Xjcngfs-Kvmsza-Ngmqdr Hx Patient Social History Tobacco Use?: No Substance use?: No (PEPITO JOHN) Immunizations Up To Date First/Initial COVID19 Vaccinat: unk date Second COVID19 Vaccination Ronald: unk date Third COVID19 Vaccination Date: unk date (PEPITO JOHN) Seasonal Allergies Seasonal Allergies: Yes (PEPITO JOHN) Past Medical History Surgery/Hospitalization HX: Pacemaker placement Surgeries: Yes Section, Pacemaker, Tonsillectomy Respiratory: Yes Asthma, Sleep Apnea Currently Using CPAP: No Cardiac: Yes Atrial Fibrillation, High Cholesterol, Hypertension, Valvular Heart Disease Neurological: Yes (rest less leg syndrome) Stroke Reproductive Disorders: No Sexually Transmitted Disease: No HIV/AIDS: No Genitourinary: Yes Renal Failure Gastrointestinal: Yes Gastroesophageal Reflux, Chronic Constipation Musculoskeletal: Yes Arthritis, Chronic Back Pain Endocrine: No 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 0.6oz. 77.407618kh; 23.00 BMI Method:Stated General Appearance: WD/WN, moderate distress Eyes: Bilateral Eye Normal Inspection, Bilateral Eye PERRL, Bilateral Eye EOMI HEENT: PERRL/EOMI, pharynx normal Neck: full range of motion, supple, normal inspection Respiratory: respiratory distress, decreased breath sounds, accessory muscle use, wheezing Cardiovascular: normal peripheral pulses, tachycardia, irregularly irregular Gastrointestinal: normal bowel sounds, non tender Extremities: normal range of motion, non-tender, normal inspection, normal capillary refill Neurologic/Psychiatric: alert, other (Obtunded GCS 13) Skin: normal color, warm/dry (PEPITO JOHN) Focused Exam Sepsis Stage: Sepsis Possible Source: Pulmonary Lactate Level 03/26/22 18:10: Lactic Acid Level 1.34 (EL BLACK DO) Time of Focused Exam: 18:15 Respiratory: Other (ON BIPAP, NO WHEEZING. RESPIRATIONS EVEN AND VERY MINIMALLY LABORED--OVERALL IMPROVED, PER DR. JOHN. ) Cardiovascular: Regular Rate, Rhythm Capillary Refill: Less Than 3 Seconds Skin: normal color, warm/dry Lactic Acid Level Laboratory Tests Test 03/26/22 18:10 Lactic Acid Level 1.34 MMOL/L (0.50-2.00) (EL BLACK DO) Within 3hrs of presentation: Admin fluids, Admin ABX, Blood cultures prior to ABX's, Focus exam, Lactate level (EL BLACK DO) Progress/Results/Core Measures Suspected Sepsis SIRS Temperature: Pulse: Respiratory Rate: Laboratory Tests 03/26/22 16:40: White Blood Count 21.6H Blood Pressure / Mean: 03/26/22 18:10: Lactic Acid Level 1.34 Laboratory Tests 03/26/22 16:40: Creatinine 1.19, INR Comment 1.4, Platelet Count 405H, Total Bilirubin 1.1H (PEPITO JOHN) Results/Orders Lab Results Laboratory Tests Test 03/26/22 16:38 03/26/22 16:40 03/26/22 17:00 03/26/22 18:10 Range/Units Blood Gas Puncture Site R RAD Blood Gas Patient Temperature 36.9 Arterial Blood pH 7.26 *L 7.37-7.43 Arterial Blood Partial Pressure CO2 70 H 35-45 MMHG Arterial Blood Partial Pressure O2 107 H 79-93 MMHG Arterial Blood HCO3 31 H 23-27 MMOL/L Arterial Blood Total CO2 33.3 H 21.0-31.0 MMOL/L Arterial Blood Oxygen Saturation 98 94-100 % Arterial Blood Base Excess 4.4 H -2.5-2.5 MMOL/L Goran Test YES-POS Blood Gas Ventilator Setting NO Blood Gas Inspired Oxygen 8 L White Blood Count 21.6 H 4.3-11.0 10^3/uL Red Blood Count 3.83 3.80-5.11 10^6/uL Hemoglobin 11.3 L 11.5-16.0 g/dL Hematocrit 37 35-52 % Mean Corpuscular Volume 97 80-99 fL Mean Corpuscular Hemoglobin 30 25-34 pg Mean Corpuscular Hemoglobin Concent 30 L 32-36 g/dL Red Cell Distribution Width 14.0 10.0-14.5 % Platelet Count 405 H 130-400 10^3/uL Mean Platelet Volume 11.0 9.0-12.2 fL Immature Granulocyte % (Auto) 1 % Neutrophils (%) (Auto) 76 H 42-75 % Lymphocytes (%) (Auto) 7 L 12-44 % Monocytes (%) (Auto) 5 0-12 % Eosinophils (%) (Auto) 11 H 0-10 % Basophils (%) (Auto) 1 0-10 % Neutrophils # (Auto) 16.4 H 1.8-7.8 10^3/uL Lymphocytes # (Auto) 1.4 1.0-4.0 10^3/uL Monocytes # (Auto) 1.1 H 0.0-1.0 10^3/uL Eosinophils # (Auto) 2.4 H 0.0-0.3 10^3/uL Basophils # (Auto) 0.1 0.0-0.1 10^3/uL Immature Granulocyte # (Auto) 0.1 0.0-0.1 10^3/uL Neutrophils % (Manual) 71 % Lymphocytes % (Manual) 9 % Monocytes % (Manual) 3 % Eosinophils % (Manual) 12 % Basophils % (Manual) 0 % Band Neutrophils 5 % Blood Morphology Comment NORMAL Prothrombin Time 17.8 H 12.2-14.7 SEC INR Comment 1.4 0.8-1.4 Activated Partial Thromboplast Time 36 H 24-35 SEC D-Dimer 5.17 H 0.00-0.49 UG/ML Sodium Level 143 135-145 MMOL/L Potassium Level 5.6 H 3.6-5.0 MMOL/L Chloride Level 103 98-107 MMOL/L Carbon Dioxide Level 25 21-32 MMOL/L Anion Gap 15 H 5-14 MMOL/L Blood Urea Nitrogen 25 H 7-18 MG/DL Creatinine 1.19 0.60-1.30 MG/DL Estimat Glomerular Filtration Rate 46 BUN/Creatinine Ratio 21 Glucose Level 137 H 70-105 MG/DL Calcium Level 10.1 8.5-10.1 MG/DL Corrected Calcium 10.0 8.5-10.1 MG/DL Total Bilirubin 1.1 H 0.1-1.0 MG/DL Aspartate Amino Transf (AST/SGOT) 25 5-34 U/L Alanine Aminotransferase (ALT/SGPT) 10 0-55 U/L Alkaline Phosphatase 112 40-136 U/L Troponin I 0.038 H <0.028 NG/ML C-Reactive Protein High Sensitivity 2.60 H 0.00-0.50 MG/DL B-Type Natriuretic Peptide 583.7 H <100.0 PG/ML Total Protein 8.1 6.4-8.2 GM/DL Albumin 4.1 3.2-4.5 GM/DL Procalcitonin 0.04 <0.10 NG/ML Urine Color YELLOW Urine Clarity SL CLOUDY Urine pH 5.5 5-9 Urine Specific Saline 1.020 1.016-1.022 Urine Protein NEGATIVE NEGATIVE Urine Glucose (UA) NEGATIVE NEGATIVE Urine Ketones NEGATIVE NEGATIVE Urine Nitrite NEGATIVE NEGATIVE Urine Bilirubin NEGATIVE NEGATIVE Urine Urobilinogen 0.2 < = 1.0 MG/DL Urine Leukocyte Esterase NEGATIVE NEGATIVE Urine RBC (Auto) NEGATIVE NEGATIVE Urine RBC NONE /HPF Urine WBC NONE /HPF Urine Squamous Epithelial Cells 2-5 /HPF Urine Crystals NONE /LPF Urine Bacteria NEGATIVE /HPF Urine Casts PRESENT /LPF Urine Hyaline Casts 5-10 H /LPF Urine Mucus NEGATIVE /LPF Urine Culture Indicated CULTURE PENDING SARS-CoV-2 RNA (RT-PCR) Not Detected Not Detecte Lactic Acid Level 1.34 0.50-2.00 MMOL/L (EL BLACK DO) My Orders Orders - EL BLACK DO Furosemide Injection (Lasix Injection) (03/26/22 18:30) Ceftriaxone 1 Gm Pre-Mix (Rocephin 1 Gm (03/26/22 18:30) Azithromycin Injection (Zithromax Inject (03/26/22 18:30) (EL BLACK DO) Medications Given in ED (EL BLACK DO) Vital Signs/I&O 03/26/22 03/26/22 03/26/22 16:22 16:22 16:41 Temp 36.9 Pulse 76 Resp 31 23 B/P (MAP) 153/79 (103) Pulse Ox 96 98 O2 Delivery Nasal Cannula O2 Flow Rate 2.00 50.00 (EL BLACK DO) Vital Signs/I&O Capillary Refill : (PEPITO JOHN) Progress Note : Progress Note 1819--ASSUMED CARE FROM DR. JOHN. SON AT BEDSIDE. PT IS ON BIPAP WITH O2 SATS 100%, BP 140'S/80'S, HR 70. PT IS NOT IN ANY DISTRESS AT THIS TIME SON STATES THAT PT AD BEEN [facility], IN THE PAST, BUT HAS BEEN BACK HOME AND LIVING WITH HIM FOR THE LAST YEAR. HE STATES THAT PT WISHES TO BE DNR/DNI, HE STATES THAT PREVIOUSLY, HOSPICE CARE HAD BEEN DISCUSSED,BUT PT WAS DOING BETTER, AND HE HAS BEEN ABLE TO TAKE CARE OF HER AT HOME, THIS IDEA HAD BEEN DROPPED. HE DOES STATE THAT PT WISHES TO BE DNR/DNI SON STATES THAT PT IS C/O BACK PAIN AND CHRONIC HIP AND KNEE PAIN. STATES HE GAVE HER 1 HYDROCODONE TODAY, BUT NO PAIN MEDICATIONS TODAY PT HAS HAD MORNING MEDICATIONS, BUT NO MEDICATION SINCE THEN (EL BLACK DO) ECG Initial ECG Impression Date: Mar 26, 2022 (PEPITO JOHN) Initial ECG Impression Time: 16:52 Initial ECG Rate: 70 Initial ECG Impression: Atrial Fibrillation (LBBB) (EL BLACK DO) Diagnostic Imaging Diagonstic Imaging: Xray (PEPITO JOHN) Comments CXR--PER RADIOLOGIST REPORT AT 1819 FINDINGS: Stable cardiomegaly with right pectoral pacemaker in place. The central pulmonary vasculature is prominent. Patchy opacities are seen in the bilateral perihilar regions and right lung base. No large pleural effusion or pneumothorax. IMPRESSION: Cardiomegaly with central pulmonary vascular congestion and pulmonary edema. CT CHEST ANGIOGRAM--PER RADIOLOGIST REPORT AT 1926 COMPARISON: Chest radiograph performed earlier the same date. FINDINGS: This helical CT pulmonary angiogram is diagnostic to the subsegmental level branches of the pulmonary artery and demonstrates no pulmonary emboli. The heart is enlarged. There is no pericardial effusion. There is calcified aortic and coronary atherosclerotic plaque without aneurysm. A right pectoral pacemaker is in place There is no axillary, mediastinal or hilar adenopathy. Small to moderate right-sided pleural effusion is seen. Hazy opacities are scattered throughout the lungs with patchy opacities in the upper and mid right lung. No discrete pulmonary mass. No central endobronchial obstructing lesion. No pneumothorax. Osseous structures appear normal. Limited views of the upper abdomen are unremarkable. IMPRESSION: 1. No acute pulmonary embolus. 2. Cardiomegaly with scattered hazy opacities throughout the lungs and patchy opacities in the upper and mid right lung. Findings may represent edema and/or infection. 3. Small to moderate right-sided pleural effusion. Reviewed: Reviewed by Me (EL BLACK DO) Transfer of Care Transfer of Care Time: 18:00 Care transferred to: Dr. Black (PEPITO JOHN) Critical Care Note Critical Care Start Time: 16:27 Stop Time: 18:30 Total Time (minutes) 63m Progress I attest to greater than 63 minutes of critical care time between myself and Dr. BLACK managing the patient's respiratory status, RT, ancillary services, ABG blood draws and interpretation as well as x-rays and coordination of care with inpatient team. (PEPITO JOHN) Departure Communication (Admissions) 1821--MESSAGE LEFT ON DR. CIFUENTES'S CELL PHONE 1827--SPOKE WITH DR. CIFUENTES, HOSPITALIST, ACCEPTS PT FOR ADMIT. (EL BLACK DO) Impression Primary Impression: ACUTE RESPIRATORY FAILURE Additional Impressions: ACUTE ON CHRONIC CHF Acute exacerbation of chronic obstructive pulmonary disease (COPD) Sepsis Elevated troponin Disposition: ADMITTED INPATIENT Condition: Improved Admissions Decision to Admit Reason: Admit from ER (General) Decision to Admit/Date: Mar 26, 2022 Time/Decision to Admit Time: 18:30 (EL BLACK DO) Departure-Patient Inst. Referrals: JUSTIN JOHNSON MD (PCP/Family) Primary Care Physician PEPITO JOHN Mar 26, 2022 16:41 EL BLACK DO Mar 26, 2022 18:47
[2022-03-26 16:43] LABS: ABG BASE EXCESS 4.4 MMOL/L (-2.5-2.5); ABG OXYGEN SATURATION 98 % (94-100); ABG PCO2 70 MMHG (35-45); ABG PO2 107 MMHG (79-93); ABG TCO2 33.3 MMOL/L (21.0-31.0)
[2022-03-26 16:44] LABS: ABG PH 7.26 (7.37-7.43); ALLENS TEST YES-POS; INSPIRED O2 8 L; PATIENT TEMP 36.9; VENTILATOR NO
[2022-03-26] MEDS ORDERED: RT-ALBUTEROL/IPRATROPIUM 3 ML (DUONEB) VIAL INH ONE (16:45)
[2022-03-26 16:53] LABS: BASOPHILS # (AUTO) 0.1 10^3/uL (0.0-0.1); BASOPHILS % (AUTO) 1 % (0-10); EOSINOPHILS # (AUTO) 2.4 10^3/uL (0.0-0.3); EOSINOPHILS % (AUTO) 11 % (0-10); HEMATOCRIT 37 % (35-52); HEMOGLOBIN 11.3 g/dL (11.5-16.0); LYMPHOCYTES # (AUTO) 1.4 10^3/uL (1.0-4.0); LYMPHOCYTES % (AUTO) 7 % (12-44); MEAN CORPUSCULAR HEMOGLOBIN 30 pg (25-34); MEAN CORPUSCULAR HGB CONC 30 g/dL (32-36); MEAN CORPUSCULAR VOLUME 97 fL (80-99); MONOCYTES # (AUTO) 1.1 10^3/uL (0.0-1.0); MONOCYTES % (AUTO) 5 % (0-12); NEUTROPHILS # (AUTO) 16.4 10^3/uL (1.8-7.8); NEUTROPHILS % (AUTO) 76 % (42-75); PLATELET COUNT 405 10^3/uL (130-400); WHITE BLOOD COUNT 21.6 10^3/uL (4.3-11.0)
[2022-03-26 17:04] LABS: ALBUMIN 4.1 GM/DL (3.2-4.5)
[2022-03-26 17:05] LABS: POTASSIUM 5.6 MMOL/L (3.6-5.0)
[2022-03-26 17:06] LABS: CALCIUM 10.1 MG/DL (8.5-10.1)
[2022-03-26 17:07] LABS: TOTAL PROTEIN 8.1 GM/DL (6.4-8.2)
[2022-03-26 17:09] LABS: BILIRUBIN,TOTAL 1.1 MG/DL (0.1-1.0)
[2022-03-26 17:11] LABS: CREATININE SERUM 1.19 MG/DL (0.60-1.30)
[2022-03-26 17:18] LABS: BAND NEUTROPHILS 5 %; BASOPHILS % (MANUAL) 0 %; EOSINOPHILS % (MANUAL) 12 %; LYMPHOCYTES % (MANUAL) 9 %; MONOCYTES % (MANUAL) 3 %; NEUTROPHILS % (MANUAL) 71 %; RBC MORPH NORMAL
[2022-03-26 17:26] LABS: INR 1.4 (0.8-1.4); PROTHROMBIN TIME PATIENT 17.8 SEC (12.2-14.7)
[2022-03-26 17:28] LABS: BILIRUBIN,URINE NEGATIVE (NEGATIVE); CLARITY,URINE SL CLOUDY; COLOR,URINE YELLOW; GLUCOSE, URINE (UA) NEGATIVE (NEGATIVE); KETONES,URINE NEGATIVE (NEGATIVE); LEUKOCYTE ESTERASE ,URINE NEGATIVE (NEGATIVE); NITRITE,URINE NEGATIVE (NEGATIVE); PH,URINE 5.5 (5-9); PROTEIN,URINE NEGATIVE (NEGATIVE)
--- NOTE | 2022-03-26 17:35 | Diagnostic Imaging Report ---
EXAMINATION: Chest 1 view. HISTORY: Shortness of breath. COMPARISON: 05/25/2021. FINDINGS: Stable cardiomegaly with right pectoral pacemaker in place. The central pulmonary vasculature is prominent. Patchy opacities are seen in the bilateral perihilar regions and right lung base. No large pleural effusion or pneumothorax. IMPRESSION: Cardiomegaly with central pulmonary vascular congestion and pulmonary edema. Dictated by: Dictated on workstation # [id number]
[2022-03-26 17:46] LABS: BACTERIA,URINE NEGATIVE /HPF
[2022-03-26] MEDS ORDERED: AZITHROMYCIN INJECTION 500 MG in NS (IVPB) 250 ML IV ONE (18:30)
[2022-03-26] MEDS ORDERED: FUROSEMIDE 40 MG/4 ML INJ (LASIX) IVP ONE (18:30)
[2022-03-26] MEDS ORDERED: cefTRIAXone 1 GM PRE-MIX 50 ML IV ONE (18:30)
[2022-03-26] MEDS ORDERED: fentaNYL INJ 100 MCG/2 ML AMP IVP ONE (18:45)
[2022-03-26] MEDS ORDERED: CATHETER FLUSH 10 ML SYR IV PRN (19:00)
[2022-03-26] MEDS ORDERED: IOHEXOL 350 MG/ML 100 ML (OMNIPAQUE 350) VIAL IV ONE (19:00)
[2022-03-26] MEDS ORDERED: NS 100 ML (IVPB) BAG IV ONE (19:00)
[2022-03-26] MEDS ORDERED: HOLD METFORMIN - RECEIVED CONTRAST 20 ML VIAL IV SCH (19:00)
--- NOTE | 2022-03-26 19:17 | Diagnostic Imaging Report ---
PROCEDURE: CT angiography of the chest with contrast. TECHNIQUE: Multiple contiguous axial images were obtained through the chest after uneventful bolus administration of intravenous contrast. 3D reconstructed CTA MIP acquisitions were also performed. Auto Exposure Controls were utilized during the CT exam to meet ALARA standards for radiation dose reduction. INDICATION: Shortness of breath. Hypoxic. COMPARISON: Chest radiograph performed earlier the same date. FINDINGS: This helical CT pulmonary angiogram is diagnostic to the subsegmental level branches of the pulmonary artery and demonstrates no pulmonary emboli. The heart is enlarged. There is no pericardial effusion. There is calcified aortic and coronary atherosclerotic plaque without aneurysm. A right pectoral pacemaker is in place There is no axillary, mediastinal or hilar adenopathy. Small to moderate right-sided pleural effusion is seen. Hazy opacities are scattered throughout the lungs with patchy opacities in the upper and mid right lung. No discrete pulmonary mass. No central endobronchial obstructing lesion. No pneumothorax. Osseous structures appear normal. Limited views of the upper abdomen are unremarkable. IMPRESSION: 1. No acute pulmonary embolus. 2. Cardiomegaly with scattered hazy opacities throughout the lungs and patchy opacities in the upper and mid right lung. Findings may represent edema and/or infection. 3. Small to moderate right-sided pleural effusion. Dictated by: Dictated on workstation # [id number]
[2022-03-26 21:10] VITALS: BP 131/67
[2022-03-26 22:00] VITALS: BP 101/50
[2022-03-26] MEDS ORDERED: ONDANSETRON 4 MG/2 ML (SDV) Z0FRAN IV PRN (22:00)
[2022-03-26] MEDS ORDERED: LACTATED RINGERS 1,000 ML IV SCH (22:00)
[2022-03-26] MEDS ORDERED: EPINEPHrine 1 MG INJECTION 4 MG in NS (IVPB) 248 ML IV SCH (22:00)
[2022-03-26] MEDS ORDERED: ACETAMINOPHEN 500 MG TAB (TYLENOL) PO PRN (22:00)
[2022-03-26] MEDS: NOREPINEPHRINE 8 MG/250 ML 250 ML IV SCH (22:14)
[2022-03-26] MEDS: VASOPRESSIN INJECTION 20 UNIT in NS (IVPB) 100 ML IV SCH (22:14)
[2022-03-26] MEDS: methylPREDNISolone 125 MG (Solu-MEDROL) VIAL IV SCH (22:21)
[2022-03-26 23:00] VITALS: BP 123/61
[2022-03-26 23:22] LABS: ABG BASE EXCESS 6.3 MMOL/L (-2.5-2.5); ABG OXYGEN SATURATION 99 % (94-100); ABG PCO2 56 MMHG (35-45); ABG PH 7.36 (7.37-7.43); ABG PO2 109 MMHG (79-93); ABG TCO2 33.6 MMOL/L (21.0-31.0)
[2022-03-26 23:23] LABS: ALLENS TEST POSITIVE; INSPIRED O2 35% BIPAP; PATIENT TEMP 35.9; VENTILATOR NO
[2022-03-26 23:44] VITALS: BP 131/67
[2022-03-27] VITALS (13 sets, daily range): BP systolic 107–123; BP diastolic 52–65
[2022-03-27] MEDS ORDERED: RT-ALBUTEROL SULF 2.5 MG/3 ML PRE-MIX VIAL INH PRN
[2022-03-27] MEDS: RT-ALBUTEROL SULF 2.5 MG/3 ML PRE-MIX VIAL INH SCH ×3 (02:40→11:35)
[2022-03-27] MEDS: methylPREDNISolone 125 MG (Solu-MEDROL) VIAL IV SCH (05:16)
[2022-03-27 05:47] LABS: BASOPHILS % (AUTO) 0 % (0-10); EOSINOPHILS % (AUTO) 0 % (0-10); HEMATOCRIT 34 % (35-52); HEMOGLOBIN 10.4 g/dL (11.5-16.0); LYMPHOCYTES # (AUTO) 0.8 10^3/uL (1.0-4.0); LYMPHOCYTES % (AUTO) 12 % (12-44); MEAN CORPUSCULAR HEMOGLOBIN 30 pg (25-34); MEAN CORPUSCULAR HGB CONC 31 g/dL (32-36); MEAN CORPUSCULAR VOLUME 96 fL (80-99); MONOCYTES # (AUTO) 0.1 10^3/uL (0.0-1.0); MONOCYTES % (AUTO) 1 % (0-12); NEUTROPHILS # (AUTO) 5.6 10^3/uL (1.8-7.8); NEUTROPHILS % (AUTO) 87 % (42-75); PLATELET COUNT 277 10^3/uL (130-400); WHITE BLOOD COUNT 6.4 10^3/uL (4.3-11.0)
[2022-03-27 05:59] LABS: ALBUMIN 3.6 GM/DL (3.2-4.5); POTASSIUM 4.3 MMOL/L (3.6-5.0)
[2022-03-27 06:00] LABS: CALCIUM 9.5 MG/DL (8.5-10.1)
[2022-03-27] MEDS ORDERED: FUROSEMIDE 40 MG/4 ML INJ (LASIX) IV SCH (06:00)
[2022-03-27 06:02] LABS: TOTAL PROTEIN 6.7 GM/DL (6.4-8.2)
[2022-03-27 06:03] LABS: BILIRUBIN,TOTAL 0.9 MG/DL (0.1-1.0)
[2022-03-27 06:05] LABS: CREATININE SERUM 0.88 MG/DL (0.60-1.30)
--- NOTE | 2022-03-27 08:12 | Diagnostic Imaging Report ---
EXAMINATION: Chest 1 view HISTORY: Shortness of breath. Respiratory failure. COMPARISON: 03/26/2022. FINDINGS: Stable cardiomegaly with stable patchy perihilar opacities, right greater than left. Stable small to moderate right-sided pleural effusion. No pneumothorax. Unchanged left pectoral pacemaker. IMPRESSION: 1. Stable chest with stable patchy opacities and small to moderate right-sided pleural effusion. 2. Stable cardiomegaly. Dictated by: Dictated on workstation # [id number]
[2022-03-27] MEDS: VASOPRESSIN INJECTION 20 UNIT in NS (IVPB) 100 ML IV SCH ×2 (09:51→19:37)
[2022-03-27] MEDS: FUROSEMIDE 40 MG/4 ML INJ (LASIX) IVP SCH (09:59)
--- NOTE | 2022-03-27 10:22 | Consultation-Cardiology ---
HPI-Cardiology Cardiology Consultation: Date of Consultation 03/27/22 Date of Admission 03/26/22 Attending Physician Jason Johnson MD Admitting Physician Admitting Physician: Becky Williamson MD Attending Physician: Becky Williamson MD Consulting Physician KHADRA ROSAS JR, MD HPI: Time Seen by a Provider: 10:17 Chief Complaint: BASED CONSULTATION: Heart failure and abnormal troponin level. I had the pleasure of seeing Citlaly on the cardiac stepdown unit at [facility] in [place], [place] today. She normally follows with one of my partners, Dr. Lemons. 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 Yesterday she was brought to the emergency room due to increasing shortness of breath. During her evaluation, she was felt to be in heart failure and was found to have an elevated troponin level. Because of these findings, a cardiolo gy consultation was requested. When I saw the patient, she was on BiPAP. She was answering a very limited number of questions. She knows that she is in the hospital but cannot say where. She was mainly just saying "help me" and "ouch". I was not able to obtain any meaningful history from the patient. I did speak with her nurse at the bedside. Certain portions of this document may have been dictated utilizing voice recognition technology. Inherent to this technology, typographical and grammatical errors may exist. As much as I am diligent to identify and correct these mistakes, some errors may remain in the document. Review of Systems-Cardiology Review of Systems Other comments Not obtainable due to altered mental status. All Other Systems Reviewed Negative Unless Noted: Yes [id number] Hx Patient Social History Have you traveled recently?: No Alcohol Use?: No Pt feels they are or have been: Unable to obtain Immunizations Up To Date Date of Pneumonia Vaccine: Oct 30, 2016 Date of Influenza Vaccine: Jun 24, 2020 Past Medical History PMH As described under Assessment. Family Medical History Family Medical History: Unable to obtain due to altered mental status Allergies and Home Medications Allergies Coded Allergies: doxycycline (Unverified Allergy, Mild, 11/26/17) Patient Home Medication List Home Medication List Reviewed: Yes ALPRAZolam (ALPRAZolam) 0.25 Mg Tablet, 0.25 MG PO Q8H PRN for ANXIETY, (Reported) Entered as Reported by: ABHIJEET FELIPE on 05/25/21 141 Albuterol Sulfate (Proair Hfa) 1 Puff Puff, 4 PUFF IH Q8H PRN for SHORTNESS OF BREATH, (Reported) Entered as Reported by: ABHIJEET FELIPE on 02/24/21 1308 Amitriptyline HCl (Amitriptyline HCl) 25 Mg Tablet, 25 MG PO HS, (Reported) Entered as Reported by: SREEDHAR MCMANUS on 09/26/20 1610 Amlodipine Besylate (Amlodipine Besylate) 5 Mg Tablet, 5 MG PO DAILY, (Reported) Entered as Reported by: ABHIJEET FELIPE on 05/25/21 141 Last Action: Held Apixaban (Eliquis) 5 Mg Tablet, 5 MG PO BID, (Reported) Entered as Reported by: ABHIJEET FELIPE on 02/24/21 1308 Last Action: Continued Carvedilol (Carvedilol) 3.125 Mg Tablet, 3.125 MG PO BID, (Reported) Entered as Reported by: GALDINO FELDMAN on 04/11/21 0953 Last Action: Continued Citalopram Hydrobromide (Citalopram HBr) 10 Mg Tablet, 10 MG PO HS, (Reported) Entered as Reported by: ABHIJEET FELIPE on 02/24/21 1308 Cranberry (Cranberry) 400 Mg Capsule, 400 MG PO DAILY, (Reported) Entered as Reported by: ABHIJEET FELIPE on 05/25/21 141 Fluticasone/Vilanterol (Breo Ellipta 200-25 Mcg INH) 1 Each Blst.w.dev, 1 PUFF IH DAILY, (Reported) Entered as Reported by: SREEDHAR MCMANUS on 09/26/20 161 Furosemide (Lasix) 40 Mg Tablet, 40 MG PO DAILY Prescribed by: JASON JOHNSON on 05/31/21 1304 Last Action: Held Gabapentin (Neurontin) 300 Mg Capsule, 300 MG PO TID, (Reported) Entered as Reported by: SREEDHAR MCMANUS on 09/26/20 161 Hydrocodone/Acetaminophen (Hydrocodone-Acetamin 5-325 mg) 1 Each Tablet, 1 TAB PO Q6H PRN for PAIN-MODERATE (5-7), (Reported) Entered as Reported by: ABHIJEET FELIPE on 05/25/21 141 Latanoprost (Xalatan) 2.5 Ml Drops, 1 DROP OU HS, (Reported) Entered as Reported by: ABHIJEET FELIPE on 09/28/20 09 Lisinopril (Lisinopril) 5 Mg Tablet, 2.5 MG PO DAILY, (Reported) Entered as Reported by: GALDINO FELDMAN on 04/11/21 09 Last Action: Held Loratadine (Loratadine) 10 Mg Tablet, 10 MG PO DAILY, (Reported) Entered as Reported by: ABHIJEET FELIPE on 05/25/21 141 Meloxicam (Mobic) 7.5 Mg Tablet, 7.5 MG PO DAILY, (Reported) Entered as Reported by: ABHIJEET FELIPE on 03/03/21 08 Naphazoline/Pheniramine (Naphcon-A Eye Drops) 15 Ml Soln, 1 DROP OS QID, (Reported) Entered as Reported by: GALDINO FELDMAN on 04/11/21 09 [place] 3 Polyunsat Fatty Acids (Fish Oil 1,000 mg Capsule) 1,000 Mg Cap, 1,000 MG PO DAILY, (Reported) Entered as Reported by: ABHIJEET FELIPE on 05/25/211412 Last Action: Continued Ondansetron HCl (Ondansetron HCl) 4 Mg Tablet, 4 MG PO Q6H PRN for NAUSEA/VOMITING-1ST LINE, (Reported) Entered as Reported by: ABHIJEET FELIPE on 05/25/21 141 Potassium Chloride (Potassium Chloride) 20 Meq Tablet.er, 20 MEQ PO DAILY, (Reported) Entered as Reported by: ABHIJEET FELIPE on 09/28/20 09 Pravastatin Sodium (Pravastatin Sodium) 10 Mg Tablet, 10 MG PO HS, (Reported) Entered as Reported by: ABHIJEET FELIPE on 03/03/21 08 Last Action: Converted Prednisone (Prednisone) 10 Mg Tab.ds.pk, 10 MG PO DAILY Prescribed by: DIMAS HERNANDEZ on 12/29/21 1329 Ropinirole HCl (Ropinirole HCl) 1 Mg Tablet, 1 MG PO HS, (Reported) Entered as Reported by: ESTEFANÍA FIORE on 11/26/17 0843 Sennosides/Docusate Sodium (Sennosides-Docusate Sodium Tab) 1 Each Tablet, 1 EACH PO BID, (Reported) Entered as Reported by: GALDINO FELDMAN on 04/11/21 0953 Spironolactone (Spironolactone) 25 Mg Tablet, 12.5 MG PO DAILY, (Reported) Entered as Reported by: GALDINO FELDMAN on 04/11/21 0953 Last Action: Held Tramadol HCl (Tramadol HCl) 50 Mg Tablet, 50 MG PO BID PRN for PAIN-MODERATE (5- 7), (Reported) Entered as Reported by: ABHIJEET FELIPE on 05/25/21 1413 Vit C/E/Zn/Coppr/Lutein/Zeaxan (Preservision Areds 2 Softgel) 1 Each Capsule, 1 EACH PO DAILY, (Reported) Entered as Reported by: ABHIJEET FELIPE on 05/25/21 1413 Exam Vital Signs Vital Signs Date Time Temp Pulse Resp B/P (MAP) Pulse Ox O2 Delivery O2 Flow Rate FiO2 03/27/22 07:21 60 24 100 25.00 03/27/22 06:00 111/56 (74) NIV Bilevel 03/27/22 04:00 35 03/26/22 23:44 36.9 Physical Exam General: Awake but confused. She is on BiPAP. Eye: Extraocular movements are intact. Conjunctivae are clear. There are no xanthelasma. HENT: Normocephalic. Atraumatic. Carotid pulsations 2/2 without bruits. Neck: Jugular venous pressure does not appear elevated. No thyromegaly appreciated. Respiratory: Lungs have coarse upper airway sounds on the BiPAP. Breath sounds are equal. Symmetrical chest wall expansion. Cardiovascular: Normal rate. Irregular rhythm. 3/6 systolic ejection murmur. No gallop. Point of maximal impulse is not appear displaced. Good pulses equal in all extremities. No edema. Gastrointestinal: Soft. Normal bowel sounds. Skin: Skin turgor is normal. There is no pallor. Musculoskeletal: No kyphosis or scoliosis appreciated. Neurologic: Awake but oriented to person only. Cranial nerves 3-12 appear grossly intact. She appears to have some degree of right-sided weakness although she is not following commands. Psychiatric: Confused. Labs Laboratory Tests Test 03/26/22 16:38 03/26/22 16:40 03/26/22 17:00 03/26/22 18:10 Range/Units Blood Gas Puncture Site R RAD Blood Gas Patient Temperature 36.9 Arterial Blood pH 7.26 *L 7.37-7.43 Arterial Blood Partial Pressure CO2 70 H 35-45 MMHG Arterial Blood Partial Pressure O2 107 H 79-93 MMHG Arterial Blood HCO3 31 H 23-27 MMOL/L Arterial Blood Total CO2 33.3 H 21.0-31.0 MMOL/L Arterial Blood Oxygen Saturation 98 94-100 % Arterial Blood Base Excess 4.4 H -2.5-2.5 MMOL/L Goran Test YES-POS Blood Gas Ventilator Setting NO Blood Gas Inspired Oxygen 8 L White Blood Count 21.6 H 4.3-11.0 10^3/uL Red Blood Count 3.83 3.80-5.11 10^6/uL Hemoglobin 11.3 L 11.5-16.0 g/dL Hematocrit 37 35-52 % Mean Corpuscular Volume 97 80-99 fL Mean Corpuscular Hemoglobin 30 25-34 pg Mean Corpuscular Hemoglobin Concent 30 L 32-36 g/dL Red Cell Distribution Width 14.0 10.0-14.5 % Platelet Count 405 H 130-400 10^3/uL Mean Platelet Volume 11.0 9.0-12.2 fL Immature Granulocyte % (Auto) 1 % Neutrophils (%) (Auto) 76 H 42-75 % Lymphocytes (%) (Auto) 7 L 12-44 % Monocytes (%) (Auto) 5 0-12 % Eosinophils (%) (Auto) 11 H 0-10 % Basophils (%) (Auto) 1 0-10 % Neutrophils # (Auto) 16.4 H 1.8-7.8 10^3/uL Lymphocytes # (Auto) 1.4 1.0-4.0 10^3/uL Monocytes # (Auto) 1.1 H 0.0-1.0 10^3/uL Eosinophils # (Auto) 2.4 H 0.0-0.3 10^3/uL Basophils # (Auto) 0.1 0.0-0.1 10^3/uL Immature Granulocyte # (Auto) 0.1 0.0-0.1 10^3/uL Neutrophils % (Manual) 71 % Lymphocytes % (Manual) 9 % Monocytes % (Manual) 3 % Eosinophils % (Manual) 12 % Basophils % (Manual) 0 % Band Neutrophils 5 % Blood Morphology Comment NORMAL Prothrombin Time 17.8 H 12.2-14.7 SEC INR Comment 1.4 0.8-1.4 Activated Partial Thromboplast Time 36 H 24-35 SEC D-Dimer 5.17 H 0.00-0.49 UG/ML Sodium Level 143 135-145 MMOL/L Potassium Level 5.6 H 3.6-5.0 MMOL/L Chloride Level 103 98-107 MMOL/L Carbon Dioxide Level 25 21-32 MMOL/L Anion Gap 15 H 5-14 MMOL/L Blood Urea Nitrogen 25 H 7-18 MG/DL Creatinine 1.19 0.60-1.30 MG/DL Estimat Glomerular Filtration Rate 46 BUN/Creatinine Ratio 21 Glucose Level 137 H 70-105 MG/DL Calcium Level 10.1 8.5-10.1 MG/DL Corrected Calcium 10.0 8.5-10.1 MG/DL Total Bilirubin 1.1 H 0.1-1.0 MG/DL Aspartate Amino Transf (AST/SGOT) 25 5-34 U/L Alanine Aminotransferase (ALT/SGPT) 10 0-55 U/L Alkaline Phosphatase 112 40-136 U/L Troponin I 0.038 H <0.028 NG/ML C-Reactive Protein High Sensitivity 2.60 H 0.00-0.50 MG/DL B-Type Natriuretic Peptide 583.7 H <100.0 PG/ML Total Protein 8.1 6.4-8.2 GM/DL Albumin 4.1 3.2-4.5 GM/DL Procalcitonin 0.04 <0.10 NG/ML Urine Color YELLOW Urine Clarity SL CLOUDY Urine pH 5.5 5-9 Urine Specific [place] 1.020 1.016-1.022 Urine Protein NEGATIVE NEGATIVE Urine Glucose (UA) NEGATIVE NEGATIVE Urine Ketones NEGATIVE NEGATIVE Urine Nitrite NEGATIVE NEGATIVE Urine Bilirubin NEGATIVE NEGATIVE Urine Urobilinogen 0.2 < = 1.0 MG/DL Urine Leukocyte Esterase NEGATIVE NEGATIVE Urine RBC (Auto) NEGATIVE NEGATIVE Urine RBC NONE /HPF Urine WBC NONE /HPF Urine Squamous Epithelial Cells 2-5 /HPF Urine Crystals NONE /LPF Urine Bacteria NEGATIVE /HPF Urine Casts PRESENT /LPF Urine Hyaline Casts 5-10 H /LPF Urine Mucus NEGATIVE /LPF Urine Culture Indicated CULTURE PENDING SARS-CoV-2 RNA (RT-PCR) Not Detected Not Detecte Lactic Acid Level 1.34 0.50-2.00 MMOL/L Test 03/26/22 23:18 03/27/22 05:30 Range/Units Blood Gas Puncture Site RIGHT RADIAL Blood Gas Patient Temperature 35.9 Arterial Blood pH 7.36 L 7.37-7.43 Arterial Blood Partial Pressure CO2 56 H 35-45 MMHG Arterial Blood Partial Pressure O2 109 H 79-93 MMHG Arterial Blood HCO3 32 H 23-27 MMOL/L Arterial Blood Total CO2 33.6 H 21.0-31.0 MMOL/L Arterial Blood Oxygen Saturation 99 94-100 % Arterial Blood Base Excess 6.3 H -2.5-2.5 MMOL/L Goran Test POSITIVE Blood Gas Ventilator Setting NO Blood Gas Inspired Oxygen 35% BIPAP White Blood Count 6.4 4.3-11.0 10^3/uL Red Blood Count 3.50 L 3.80-5.11 10^6/uL Hemoglobin 10.4 L 11.5-16.0 g/dL Hematocrit 34 L 35-52 % Mean Corpuscular Volume 96 80-99 fL Mean Corpuscular Hemoglobin 30 25-34 pg Mean Corpuscular Hemoglobin Concent 31 L 32-36 g/dL Red Cell Distribution Width 13.7 10.0-14.5 % Platelet Count 277 130-400 10^3/uL Mean Platelet Volume 11.0 9.0-12.2 fL Immature Granulocyte % (Auto) 1 % Neutrophils (%) (Auto) 87 H 42-75 % Lymphocytes (%) (Auto) 12 12-44 % Monocytes (%) (Auto) 1 0-12 % Eosinophils (%) (Auto) 0 0-10 % Basophils (%) (Auto) 0 0-10 % Neutrophils # (Auto) 5.6 1.8-7.8 10^3/uL Lymphocytes # (Auto) 0.8 L 1.0-4.0 10^3/uL Monocytes # (Auto) 0.1 0.0-1.0 10^3/uL Eosinophils # (Auto) 0.0 0.0-0.3 10^3/uL Basophils # (Auto) 0.0 0.0-0.1 10^3/uL Immature Granulocyte # (Auto) 0.0 0.0-0.1 10^3/uL Sodium Level 143 135-145 MMOL/L Potassium Level 4.3 3.6-5.0 MMOL/L Chloride Level 105 98-107 MMOL/L Carbon Dioxide Level 27 21-32 MMOL/L Anion Gap 11 5-14 MMOL/L Blood Urea Nitrogen 22 H 7-18 MG/DL Creatinine 0.88 0.60-1.30 MG/DL Estimat Glomerular Filtration Rate 66 BUN/Creatinine Ratio 25 Glucose Level 151 H 70-105 MG/DL Calcium Level 9.5 8.5-10.1 MG/DL Corrected Calcium 9.8 8.5-10.1 MG/DL Total Bilirubin 0.9 0.1-1.0 MG/DL Aspartate Amino Transf (AST/SGOT) 12 5-34 U/L Alanine Aminotransferase (ALT/SGPT) 8 0-55 U/L Alkaline Phosphatase 94 40-136 U/L Troponin I 0.034 H <0.028 NG/ML Total Protein 6.7 6.4-8.2 GM/DL Albumin 3.6 3.2-4.5 GM/DL ECG Impression ECG Comment Electrocardiogram from the emergency room on 03/26 shows atrial fibrillation with left bundle branch block. Diagnosis/Problems Diagnosis/Problems (1) Acute on chronic heart failure with preserved ejection fraction (HFpEF) Assessment & Plan: She appears to have some decompensation of her chronic heart failure. She is ordered for intravenous Lasix. We will need to watch her renal function closely. I will resume low-dose beta-leeanna. I would suggest we stop her amlodipine since she seems to have some chronic, intermittent lower extremity edema which could be caused by amlodipine. (2) Elevated troponin Status: Acute Assessment & Plan: I suspect she may have had a type II non-ST elevation myocardial infarction due to acute on chronic heart failure with supply/demand mismatch. Given her age, chronic debility and multiple comorbid conditions, she is not a candidate for an invasive cardiac evaluation. (3) Permanent atrial fibrillation Assessment & Plan: She appears to have permanent atrial fibrillation. She has been on low-dose carvedilol for rate control and apixaban for stroke prophylaxis. Although she is over the age of 82, her weight is above 60 kg and creatinine and is below 1.5. As such, there is no indication for adjusting the dose of apixaban. (4) Aortic stenosis Assessment & Plan: She also has a history of aortic stenosis. It has been just over 1 year since her previous echocardiogram. I have ordered an echocardiogram for the morning. (5) Mitral regurgitation Assessment & Plan: She also has mitral regurgitation. (6) Primary hypertension Assessment & Plan: I will resume her beta-leeanna. As above, I would suggest stopping amlodipine since this could be contributing to her intermittent lower extremity edema. (7) Mixed hyperlipidemia Assessment & Plan: Statin medication has been ordered. (8) Acute kidney injury superimposed on chronic kidney disease Assessment & Plan: We will need to watch her renal function closely with the intravenous furosemide. (9) Acute on chronic respiratory failure with hypoxemia Assessment & Plan: Most likely due to chronic obstructive pulmonary disease with superimposed acute on chronic heart failure. (10) History of cerebrovascular accident with residual deficit Assessment & Plan: Continue apixaban for the atrial fibrillation. It is difficult to assess whether or not she has any new neurologic deficits. (11) Cardiac pacemaker in situ Assessment & Plan: She has a dual-chamber pacemaker in place but appears to have atrial fibrillation with [place] AV conduction on her electrocardiogram. KHADRA ROSAS JR, MD Mar 27, 2022 10:21
[2022-03-27] MEDS: fentaNYL INJ 100 MCG/2 ML AMP IV PRN ×2 (10:31→14:55)
[2022-03-27] MEDS ORDERED: methylPREDNISolone 125 MG (Solu-MEDROL) VIAL IV SCH (11:00)
--- NOTE | 2022-03-27 14:31 | History & Physical-Hospitalist ---
History of Present Illness HPI/Chief Complaint Citlaly Salazar is an 82 year old female with PMH HTN, HLD, AFib, CVA, COPD, HFpEF, who presented with shortness of breath. She is a poor historian and unable to provide any history. She reportedly came from home by EMS. She was found to have a CHF exacerbation and was started on Lasix and BiPAP. Source: RN/MD Exam Limitations: clinical condition Date Seen 03/27/22 Time Seen by a Provider: 10:55 Attending Physician Jason Boudreaux MD PCP Admitting Physician: Becky Williamson MD Attending Physician: Becky Williamson MD Referring Physician Date of Admission Mar 26, 2022 at 18:27 Home Medications & Allergies Home Medications Reviewed patient Home Medication Reconciliation performed by pharmacy medication reconciliations optical coating technician and/or nursing. Patients Allergies have been reviewed. Allergies Allergies Coded Allergies doxycycline (Unverified Allergy, Mild, 11/26/17) Past Txhmpvu-Dmyykp-Obrebh Hx Patient Social History Tobacco Use?: No Use of E-Cig and/or Vaping dev: No Substance use?: No Alcohol Use?: No Pt feels they are or have been: Unable to obtain Immunizations Up To Date Date of Influenza Vaccine: Jun 24, 2020 First/Initial COVID19 Vaccinat: unk date Second COVID19 Vaccination Ronald: unk date Tetanus Booster (TDap): Unknown Hepatitis A: Yes Hepatitis B: Yes Date of Pneumonia Vaccine: Oct 30, 2016 Seasonal Allergies Seasonal Allergies: Yes Current Status Advance Directives: Unable to obtain Communicates: Verbally Primary Language: Azerbaijani Preferred Spoken Language: Azerbaijani Is interpretation needed?: No Sensory deficits: Vision impairment Implanted or Applied Medical D: Pacemaker Past Medical History Surgeries: Section, Pacemaker, Tonsillectomy Asthma, Sleep Apnea Currently Using CPAP: No Atrial Fibrillation, High Cholesterol, Hypertension, Valvular Heart Disease Stroke Sexually Transmitted Disease: No HIV/AIDS: No Renal Failure Gastroesophageal Reflux, Chronic Constipation Arthritis, Chronic Back Pain Glaucoma Loss of Vision: Bilateral Hearing Impairment: Hard of Hearing Anxiety, Depression Blood Disorders: No Adverse Reaction/Blood Tranf: No (N/A) Family Medical History Heart Disease, COPD, Renal Disease, Other Conditions/Hx Review of Systems Constitutional: see HPI Physical Exam Physical Exam Vital Signs Vital Signs - First Documented 03/26/22 03/26/22 16:22 21:00 Temp 36.9 Pulse 76 Resp 31 B/P (MAP) 153/79 (103) Pulse Ox 96 O2 Delivery Nasal Cannula O2 Flow Rate 2.00 FiO2 35 Capillary Refill : Less Than 3 Seconds Height, Weight, BMI Height: 5'4.00" Weight: 182lbs. 0.6oz. [id number]; 27.73 BMI Method:Stated General Appearance: No Apparent Distress, Chronically ill HEENT: PERRL/EOMI, Other (wearing BiPAP) Respiratory: Lungs Clear, No Respiratory Distress, Other (wearing BiPAP) Cardiovascular: Regular Rate, Rhythm, No Murmur Gastrointestinal: Normal Bowel Sounds, Non Tender, Soft Extremity: Normal Inspection, Non Tender, No Pedal Edema Neurologic/Psychiatric: Alert, Motor Weakness Skin: Normal Color, Warm/Dry Results Results/Procedures Labs Laboratory Tests 03/26/22 16:40 03/27/22 05:30 Patient resulted labs reviewed. Imaging: Reviewed Imaging Report Assessment/Plan Admission Diagnosis Acute on chronic HFpEF Admission Status: Inpatient Order (span 2 midnights) Reason for Inpatient Admission: Heart failure Respiratory failure Assessment and Plan Acute on chronic HFpEF Acute on chronic respiratory failure with hypoxia and hypercapnia Elevated troponin ELAINE COPD exacerbation Possible pneumonia ABG with acute hypercapnia CXR with pulmonary edema Troponin mildly elevated, stable Started on BiPAP Lasix Steroids MAT protocol Procal negative, repeat tomorrow morning Rocephin and Azithromycin Wean oxygen as able AFib Continue Eliquis Diagnosis/Problems Diagnosis/Problems (1) Acute on chronic heart failure with preserved ejection fraction (HFpEF) Status: Acute (2) Acute exacerbation of chronic obstructive pulmonary disease (COPD) Status: Acute (3) Acute on chronic respiratory failure with hypoxemia Status: Acute (4) Acute kidney injury superimposed on chronic kidney disease Status: Acute (5) Permanent atrial fibrillation Status: Chronic (6) History of cerebrovascular accident with residual deficit Status: Chronic MARCO A CÁRDENAS MD Mar 27, 2022 14:31
[2022-03-27] MEDS: ALPRAZolam 0.25 MG (XANAX) TAB PO PRN (15:10)
[2022-03-27] MEDS: NOREPINEPHRINE 8 MG/250 ML 250 ML IV SCH (18:47)
[2022-03-27] MEDS: cefTRIAXone 1 GM/50 ML (PRE-MIX) IV SCH (18:48)
[2022-03-27] MEDS: AZITHROMYCIN 500 MG/NS 250 ML IVPB IV SCH ×2 (19:36)
[2022-03-27] MEDS: AtorvaSTATin TABLET 10 MG TABLET PO SCH (20:01)
[2022-03-27] MEDS: APIXABAN 5 MG (ELIQUIS) TABLET PO SCH (20:01)
[2022-03-27] MEDS ORDERED: NON-FORMULARY MEDICATION 1 EA EA (Pravastatin Sodium 10 MG) PO SCH (21:00)
[2022-03-27] MEDS: GABAPENTIN 300 MG (NEURONTIN) CAP PO SCH (21:17)
[2022-03-27] MEDS: rOPINIRole 1 MG (REQUIP) TABLET PO SCH (21:17)
[2022-03-27] MEDS: AMITRIPTYLINE 25 MG (ELAVIL) TAB PO SCH (21:17)
[2022-03-28] VITALS (7 sets, daily range): BP systolic 116–146; BP diastolic 62–78
[2022-03-28 06:01] LABS: BASOPHILS % (AUTO) 0 % (0-10); EOSINOPHILS % (AUTO) 0 % (0-10); HEMATOCRIT 37 % (35-52); HEMOGLOBIN 11.1 g/dL (11.5-16.0); LYMPHOCYTES % (AUTO) 6 % (12-44); MEAN CORPUSCULAR HEMOGLOBIN 30 pg (25-34); MEAN CORPUSCULAR HGB CONC 30 g/dL (32-36); MEAN CORPUSCULAR VOLUME 98 fL (80-99); MEAN PLATELET VOLUME 10.9 fL (9.0-12.2); MONOCYTES # (AUTO) 0.7 10^3/uL (0.0-1.0); MONOCYTES % (AUTO) 5 % (0-12); NEUTROPHILS # (AUTO) 13.6 10^3/uL (1.8-7.8); NEUTROPHILS % (AUTO) 88 % (42-75); PLATELET COUNT 318 10^3/uL (130-400); WHITE BLOOD COUNT 15.4 10^3/uL (4.3-11.0)
[2022-03-28 06:17] LABS: ALBUMIN 3.7 GM/DL (3.2-4.5)
[2022-03-28 06:18] LABS: POTASSIUM 3.9 MMOL/L (3.6-5.0)
[2022-03-28 06:19] LABS: CALCIUM 9.7 MG/DL (8.5-10.1)
[2022-03-28 06:20] LABS: TOTAL PROTEIN 6.9 GM/DL (6.4-8.2)
[2022-03-28 06:22] LABS: BILIRUBIN,TOTAL 0.9 MG/DL (0.1-1.0)
[2022-03-28] MEDS: ALPRAZolam 0.25 MG (XANAX) TAB PO PRN ×3 (06:23→23:13)
[2022-03-28] MEDS: predniSONE 20 MG TAB PO SCH (06:23)
[2022-03-28 06:24] LABS: CREATININE SERUM 0.79 MG/DL (0.60-1.30)
[2022-03-28] MEDS: VASOPRESSIN INJECTION 20 UNIT in NS (IVPB) 100 ML IV SCH (06:24)
[2022-03-28] MEDS: RT-ALBUTEROL SULF 2.5 MG/3 ML PRE-MIX VIAL INH SCH ×8 (06:51→19:10)
[2022-03-28 07:21] LABS: BAND NEUTROPHILS 0 %; LYMPHOCYTES % (MANUAL) 6 %; MONOCYTES % (MANUAL) 2 %; NEUTROPHILS % (MANUAL) 92 %
[2022-03-28 07:22] LABS: ANISOCYTOSIS SLIGHT; BASOPHILS % (MANUAL) 0 %; ELLIPT/OVALOCYTES SLIGHT; EOSINOPHILS % (MANUAL) 0 %
[2022-03-28] MEDS: GABAPENTIN 300 MG (NEURONTIN) CAP PO SCH ×2 (09:14→20:19)
[2022-03-28] MEDS: APIXABAN 5 MG (ELIQUIS) TABLET PO SCH ×2 (09:14→20:19)
[2022-03-28] MEDS: FUROSEMIDE 40 MG/4 ML INJ (LASIX) IVP SCH (09:14)
[2022-03-28] MEDS: OMEGA 3 (FISH OIL) 1000 MG CAP PO SCH (09:14)
--- NOTE | 2022-03-28 09:27 | Cardiology Progress Note ---
Progress Note-Cardiology Events since last exam Date Seen by Provider: Mar 28, 2022 Time Seen by Provider: 09:24 Events since last exam I am following her due to heart failure and abnormal troponin level. She rem ains on the cardiac stepdown unit. This morning she told the nurse she was not hungry. She is quite confused and basically can only tell me her name. She denies chest discomfort, dyspnea, palpitations, syncope, or ankle edema. However, due to her confusion, her answers may not be reliable. Certain portions of this document may have been dictated utilizing voice recognition technology. Inherent to this technology, typographical and grammatical errors may exist. As much as I am diligent to identify and correct these mistakes, some errors may remain in the document. Vitals Last set of Vitals Signs Vital Signs 03/27/22 03/28/22 03/28/22 03/28/22 03/28/22 04:00 06:48 07:00 08:00 08:15 Pulse 60 Resp 23 Pulse Ox 98 O2 Delivery Nasal Cannula O2 Flow Rate 4.00 FiO2 35 Labs Labs Laboratory Tests 03/28/22 05:49 Exam Vital Signs Vital Signs Date Time Temp Pulse Resp B/P (MAP) Pulse Ox O2 Delivery O2 Flow Rate FiO2 03/28/22 08:15 Nasal Cannula 4.00 03/28/22 08:00 98 03/28/22 07:00 60 03/28/22 06:48 23 03/28/22 04:00 33.5 146/78 (100) 03/27/22 04:00 35 Physical Exam General: Awake but confused. No acute distress. Eye: No xanthelasma. HENT: Normocephalic. Neck: Jugular venous pressure does not appear elevated. Respiratory: Lungs have decreased breath sounds at the bases with bibasilar crackles. Respirations are non-labored. Breath sounds are equal. Symmetrical chest wall expansion. Cardiovascular: Normal rate. Irregular rhythm. 3/6 systolic ejection murmur. No gallop. No edema. Gastrointestinal: Soft. Normal bowel sounds. Skin: Warm. Dry. Neurologic: Awake but oriented to person only. Cranial nerves 3-11 grossly intact. She appears to have some degree of right-sided weakness but is not following commands to confirm. Psychiatric: Confused. Labs Laboratory Tests Test 03/28/22 05:49 Range/Units White Blood Count 15.4 H 4.3-11.0 10^3/uL Red Blood Count 3.74 L 3.80-5.11 10^6/uL Hemoglobin 11.1 L 11.5-16.0 g/dL Hematocrit 37 35-52 % Mean Corpuscular Volume 98 80-99 fL Mean Corpuscular Hemoglobin 30 25-34 pg Mean Corpuscular Hemoglobin Concent 30 L 32-36 g/dL Red Cell Distribution Width 14.0 10.0-14.5 % Platelet Count 318 130-400 10^3/uL Mean Platelet Volume 10.9 9.0-12.2 fL Immature Granulocyte % (Auto) 1 % Neutrophils (%) (Auto) 88 H 42-75 % Lymphocytes (%) (Auto) 6 L 12-44 % Monocytes (%) (Auto) 5 0-12 % Eosinophils (%) (Auto) 0 0-10 % Basophils (%) (Auto) 0 0-10 % Neutrophils # (Auto) 13.6 H 1.8-7.8 10^3/uL Lymphocytes # (Auto) 1.0 1.0-4.0 10^3/uL Monocytes # (Auto) 0.7 0.0-1.0 10^3/uL Eosinophils # (Auto) 0.0 0.0-0.3 10^3/uL Basophils # (Auto) 0.0 0.0-0.1 10^3/uL Immature Granulocyte # (Auto) 0.1 0.0-0.1 10^3/uL Neutrophils % (Manual) 92 % Lymphocytes % (Manual) 6 % Monocytes % (Manual) 2 % Eosinophils % (Manual) 0 % Basophils % (Manual) 0 % Band Neutrophils 0 % Anisocytosis SLIGHT Elliptocytes SLIGHT Sodium Level 142 135-145 MMOL/L Potassium Level 3.9 3.6-5.0 MMOL/L Chloride Level 103 98-107 MMOL/L Carbon Dioxide Level 25 21-32 MMOL/L Anion Gap 14 5-14 MMOL/L Blood Urea Nitrogen 28 H 7-18 MG/DL Creatinine 0.79 0.60-1.30 MG/DL Estimat Glomerular Filtration Rate 76 BUN/Creatinine Ratio 35 Glucose Level 114 H 70-105 MG/DL Calcium Level 9.7 8.5-10.1 MG/DL Corrected Calcium 9.9 8.5-10.1 MG/DL Total Bilirubin 0.9 0.1-1.0 MG/DL Aspartate Amino Transf (AST/SGOT) 20 5-34 U/L Alanine Aminotransferase (ALT/SGPT) 14 0-55 U/L Alkaline Phosphatase 88 40-136 U/L Total Protein 6.9 6.4-8.2 GM/DL Albumin 3.7 3.2-4.5 GM/DL Procalcitonin 0.80 H <0.10 NG/ML Smear Scan Radiology ECHOCARDIOGRAM (03/28/2022): 1. Left ventricle: The cavity size is normal. There is moderate concentric hypertrophy. Systolic function is normal. The estimated ejection fraction is 60- 65%. The left ventricular diastolic function is indeterminate due to atrial fibrillation. 2. Right ventricle: Device wire noted in the right heart chambers. 3. Left atrium: The left atrium is severely dilated with a volume index of 48 mL/m. 4. Right atrium: The right atrium is severely dilated with an area of 29 cm. 5. Aortic valve: The aortic valve appears tricuspid with thickened and calcified leaflets with restricted leaflet mobility. There is severe aortic stenosis with a mean gradient of 37 mmHg, a peak gradient of 70 mmHg, a peak velocity of 4.2 m/s and a calculated aortic valve area of 1 cm. There is mild aortic regurgitation with a pressure half-time of 534 ms. 6. Mitral valve: The annulus is mildly calcified. There is mild mitral regurgitation. 7. Tricuspid valve: There is mild-moderate tricuspid regurgitation. 8. Pulmonic valve: There is mild pulmonic regurgitation. 9. Pericardium, extracardiac: There is a small right pleural effusion. 10. Inferior vena cava: The vessel is dilated. The respirophasic diameter changes are blunted (less than 50%). These findings are consistent with markedly elevated right atrial pressure (15 mmHg). 11. Pulmonary arteries: The estimated pulmonary artery systolic pressure is 76 mmHg assuming a right atrial pressure of 15 mmHg. 12. Compared to the report from the study performed on 02/25/2021, the aortic stenosis and pulmonary hypertension are more significant on this study. Diagnosis/Problems Diagnosis/Problems (1) Acute on chronic heart failure with preserved ejection fraction (HFpEF) Status: Acute Assessment & Plan: She appears to have some decompensation of her chronic heart failure. She is ordered for intravenous Lasix. We will need to watch her renal function closely. I have ordered low-dose beta-leeanna. I would suggest we stop her amlodipine since she seems to have some chronic, intermittent lower extremity edema which could be caused by amlodipine. (2) Elevated troponin Status: Acute Assessment & Plan: She had a probable type II non-ST elevation myocardial infarction due to acute on chronic heart failure with supply/demand mismatch. Given her age, chronic debility and multiple comorbid conditions, she is not a candidate for an invasive cardiac evaluation. I recommend she continue on beta- leeanna and statin medication. She is not on aspirin because she takes apixaban for atrial fibrillation. (3) Permanent atrial fibrillation Status: Chronic Assessment & Plan: She appears to have permanent atrial fibrillation. She has been on low-dose carvedilol for rate control and apixaban for stroke prophylaxis. Although she is over the age of 82, her weight is above 60 kg and creatinine and is below 1.5. As such, there is no indication for adjusting the dose of apixaban. (4) Aortic stenosis Assessment & Plan: She has severe aortic stenosis. Given her comorbid conditions, she would probably not to be a good candidate for either surgical or percutaneous aortic valve replacement. (5) Mitral regurgitation Assessment & Plan: She also has mitral regurgitation. This could be contrib uting to the heart failure. (6) Primary hypertension Assessment & Plan: I ordered her home dose of beta-leeanna. As above, I would suggest stopping amlodipine since this could be contributing to her intermittent lower extremity edema. (7) Mixed hyperlipidemia Assessment & Plan: Statin medication has been ordered. (8) Acute kidney injury superimposed on chronic kidney disease Status: Acute Assessment & Plan: We will need to watch her renal function closely with the intravenous furosemide. (9) Acute on chronic respiratory failure with hypoxemia Status: Acute Assessment & Plan: Most likely due to chronic obstructive pulmonary disease with superimposed acute on chronic heart failure. (10) History of cerebrovascular accident with residual deficit Status: Chronic Assessment & Plan: Continue apixaban for the atrial fibrillation. It is difficult to assess whether or not she has any new neurologic deficits. (11) Cardiac pacemaker in situ Assessment & Plan: She has a dual-chamber pacemaker in place but appears to have atrial fibrillation with [place] AV conduction on her electrocardiogram. KHADRA ROSAS JR, MD Mar 28, 2022 09:27
[2022-03-28] MEDS ORDERED: FURO40TA4 PO (11:56)
[2022-03-28] MEDS ORDERED: POTA-179 PO (11:56)
[2022-03-28] MEDS ORDERED: FLUT1BLS IH (14:22)
[2022-03-28] MEDS ORDERED: RT-ALBUINH INH (14:22)
[2022-03-28] MEDS ORDERED: MELO15TA39 PO (14:22)
[2022-03-28] MEDS ORDERED: CHOL10007 PO (14:24)
[2022-03-28] MEDS ORDERED: VIT1CAPS5 PO (14:24)
[2022-03-28] MEDS ORDERED: OMEG1CAP24 PO (14:24)
--- NOTE | 2022-03-28 15:21 | Progress Note - Hospitalist ---
Subjective HPI/CC On Admission Date Seen by Provider: Mar 28, 2022 Time Seen by Provider: 09:50 Citlaly Salazar is an 82 year old female with PMH HTN, HLD, AFib, CVA, COPD, HFpEF, who presented with shortness of breath. She is a poor historian and unable to provide any history. She reportedly came from home by EMS. She was found to have a CHF exacerbation and was started on Lasix and BiPAP. Subjective/Events-last exam She is confused. She denies shortness of breath. She denies pain. Focused Exam Lactate Level 03/26/22 18:10: Lactic Acid Level 1.34 Time of Focused Exam: 18:15 Objective Exam Vital Signs Vital Signs Date Time Temp Pulse Resp B/P (MAP) Pulse Ox O2 Delivery O2 Flow Rate FiO2 03/28/22 13:00 60 03/28/22 12:00 20 136/77 (96) 96 Nasal Cannula 4.00 03/28/22 04:00 33.5 03/27/22 04:00 35 Capillary Refill : Less Than 3 Seconds General Appearance: No Apparent Distress, WD/WN Respiratory: Lungs Clear, No Respiratory Distress Cardiovascular: Regular Rate, Rhythm, No Murmur Gastrointestinal: Normal Bowel Sounds, Soft Extremity: Normal Inspection, No Pedal Edema Neurologic/Psychiatric: Alert, Normal Mood/Affect Skin: Normal Color, Warm/Dry Results/Procedures Lab Laboratory Tests 03/28/22 05:49 Patient resulted labs reviewed. Imaging: Reviewed Imaging Report Assessment/Plan Assessment and Plan Assess & Plan/Chief Complaint Acute on chronic HFpEF Acute on chronic respiratory failure with hypoxia and hypercapnia Elevated troponin ELAINE COPD exacerbation Pneumonia Cardiology following Lasix Steroids MAT protocol Rocephin and Azithromycin Wean oxygen as able AFib Continue Eliquis Diagnosis/Problems Diagnosis/Problems (1) Acute on chronic heart failure with preserved ejection fraction (HFpEF) Status: Acute (2) Acute exacerbation of chronic obstructive pulmonary disease (COPD) Status: Acute (3) Acute on chronic respiratory failure with hypoxemia Status: Acute (4) Acute kidney injury superimposed on chronic kidney disease Status: Acute (5) Permanent atrial fibrillation Status: Chronic (6) History of cerebrovascular accident with residual deficit Status: Chronic (7) PNA (pneumonia) Status: Acute MARCO A CÁRDENAS MD Mar 28, 2022 15:21
--- NOTE | 2022-03-28 15:54 | Occupational Therapy Eval ---
OT Evaluation-General/PLF Medical Diagnosis Admission Date Mar 26, 2022 at 18:27 Medical Diagnosis: sepsis, Acute respiratory failure Onset Date: Mar 26, 2022 Therapy Diagnosis Therapy Diagnosis: reduced adl status Height/Weight Height (Feet): 5 Height (Inches): 4.00 Weight (Pounds): 182 Weight (Ounces): 0.6 Precautions Precautions/Isolations: Fall Prevention, Standard Precautions Referral Physician: Fifi Referral Reason: Evaluation/Treatment Medical History Pertinent Medical History: Atrial Fib, Arthritis, COPD, CVA, Dementia, GERD, HTN Current History Pt presented to hospital with c/o SOB. Found to have CHF exacerbation. Pt is a poor historian, no family present to verify responses. Pt reports that she lives with son. Per chart, son is patient's primary caregiver. Unsure if assist is provided for adls and transfers. Per OT evaluation on 04/12/21, pt was living at a senior care and receiving assist for all adls. Pt has a history of CVA with residual weakness and swelling on R side. Per patient, she does not walk but was unable to verbalize if she sits in a w/c. Reviewed History: Yes ADL-Prior Level of Function SCALE: Activities may be completed with or without assistive devices. 6-Miidxwsyyp-rwoowbd completes the activity by him/herself with no assistance from a helper. 5-Set-up or Clean-up Assistance-helper sets up or cleans up; patient completes activity. Jerome assists only prior to or following the activity. 4-Supervision or Touching Assistance-helper provides verbal cues and/or touching/steadying and/or contact guard assistance as patient completes activity. Assistance may be provided throughout the activity or intermittently. 3-Partial/Moderate Assistance-helper does LESS THAN HALF the effort. Jerome lif ts, holds or supports trunk or limbs, but provides less than half the effort. 2-Substantial/Maximal Assistance-helper does MORE THAN HALF the effort. Jerome lifts or holds trunk or limbs and provides more than half the effort. 8-Wtoqnqadx-fwzifk does ALL the effort. Patient does none of the effort to complete the activity. Or, the assistance of 2 or more helpers is required for the patient to complete the activity. If activity was not attempted, code reason: 7-Patient Refused. 9-Not Applicable-not attempted and the patient did not perform the activity before the current illness, exacerbation or injury. 10-Not Attempted due to Environmental Limitations-(lack of equipment, weather restraints, etc.). 88-Not Attempted due to Medical Conditions or Safety Concerns. Self Care: Unknown Functional Cognition: Unknown OT Current Status Subjective Pt confused. She perseverates on making sure that she doesn't walk because she doesn't want to step on items ("clock and TV"). Pt very adamant that objects were not on the wall, unable to be redirected Appearance Pt left supine in bed, all needs within reach, RN notified. Mental Status/Objective Patient Orientation: Confused Current Upper Extremity ROM R shoulder: ~90 degrees AROM, ~160 degrees PROM R elbow: 20-100 degrees Full finger flexion/extension with cues LUE WNL Upper Extremity Strength Pt unable to follow directions. ADL-Treatment Pt supine in bed at OT arrival. She is confused and is difficult to redirect. She is able to follow very simple 1 step directions with both verbal and visual cues. RN reports that pt has been pulling on tubes and may need to have mittens placed for protection. Pt able to roll R/L with min a but requires extensive time and tactile cues due to poor command following. No OOB/EOB activities performed secondary to poor safety and ability to follow directions. Further assessment will be needed to determine pt's true baseline. Education OT Patient Education: Correct positioning, Purpose of tx/functional activities, Safety issues, Transfer techniques Teaching Recipient: Patient Teaching Methods: Demonstration, Discussion Response to Teaching: Unable to Comprehend, Reinforcement Needed OT Mcc Goals Garage Attendant Goals Time Frame: Apr 11, 2022 Eating (QC): 4 Oral Hygiene (QC): 3 Toileting Hygiene (QC): 3 Upper Body Dressing (QC): 3 Lower Body Dressing (QC): 3 1=Demonstrate adherence to instructed precautions during ADL tasks. 2=Patient will verbalize/demonstrate understanding of assistive devices/modifications for ADL. 3=Patient will improve strength/tolerance for activity to enable patient to p erform ADL's. OT Education/Plan Problem List/Assessment Assessment: Decreased Activ Tolerance, Decreased Safety Aware, Decreased UE Strength, Impaired Bed Mobility, Impaired Cognition, Impaired Coordination, Im paired Funct Balance, Impaired Self-Care Skills, Restricted Funct UE ROM Discharge Recommendations Plan/Recommendations: Continue POC Therapy Discharge Recommendati: Post Acute OT Treatment Plan/Plan of Care Treatment,Training & Education: Yes Patient would benefit from OT for education, treatment and training to promote independence in ADL's, mobility, safety and/or upper extremity function for ADL's. Plan of Care: ADL Retraining, Caregiver Training, Functional Mobility, Group Exercise/Act as Ind, UE Funct Exercise/Act, UE Neuromus Re-Ed/Coord Treatment Duration: Apr 11, 2022 Frequency: 3 times per week (3-5x/week) Estimated Hrs Per Day: .25 hour per day Rehab Potential: Poor Time/GCodes Start Time: 15:33 Stop Time: 13:43 Total Time Billed (hr/min): 10 Billed Treatment Time 1 visit Kaitlyn Perera OT Mar 28, 2022 15:54
[2022-03-28] MEDS: AZITHROMYCIN 500 MG/NS 250 ML IVPB IV SCH ×2 (18:53)
[2022-03-28] MEDS: cefTRIAXone 1 GM/50 ML (PRE-MIX) IV SCH (18:54)
[2022-03-28] MEDS: AMITRIPTYLINE 25 MG (ELAVIL) TAB PO SCH (20:19)
[2022-03-28] MEDS: AtorvaSTATin TABLET 10 MG TABLET PO SCH (20:19)
[2022-03-28] MEDS: rOPINIRole 1 MG (REQUIP) TABLET PO SCH (20:20)
[2022-03-29] VITALS (7 sets, daily range): BP systolic 105–131; BP diastolic 54–74
[2022-03-29] MEDS: RT-ALBUTEROL SULF 2.5 MG/3 ML PRE-MIX VIAL INH SCH ×5 (02:13→22:24)
[2022-03-29 05:23] LABS: BASOPHILS % (AUTO) 0 % (0-10); EOSINOPHILS % (AUTO) 0 % (0-10); HEMATOCRIT 35 % (35-52); HEMOGLOBIN 10.7 g/dL (11.5-16.0); LYMPHOCYTES # (AUTO) 1.8 10^3/uL (1.0-4.0); LYMPHOCYTES % (AUTO) 17 % (12-44); MEAN CORPUSCULAR HEMOGLOBIN 29 pg (25-34); MEAN CORPUSCULAR HGB CONC 31 g/dL (32-36); MEAN CORPUSCULAR VOLUME 95 fL (80-99); MEAN PLATELET VOLUME 10.8 fL (9.0-12.2); MONOCYTES % (AUTO) 9 % (0-12); NEUTROPHILS # (AUTO) 7.6 10^3/uL (1.8-7.8); NEUTROPHILS % (AUTO) 73 % (42-75); PLATELET COUNT 314 10^3/uL (130-400); WHITE BLOOD COUNT 10.5 10^3/uL (4.3-11.0)
[2022-03-29 05:31] LABS: ALBUMIN 3.5 GM/DL (3.2-4.5); POTASSIUM 3.4 MMOL/L (3.6-5.0)
[2022-03-29 05:32] LABS: CALCIUM 9.3 MG/DL (8.5-10.1)
[2022-03-29 05:33] LABS: TOTAL PROTEIN 6.2 GM/DL (6.4-8.2)
[2022-03-29 05:37] LABS: CREATININE SERUM 0.78 MG/DL (0.60-1.30)
[2022-03-29] MEDS: ALPRAZolam 0.25 MG (XANAX) TAB PO PRN ×2 (06:39→16:37)
[2022-03-29] MEDS: predniSONE 20 MG TAB PO SCH (06:40)
--- NOTE | 2022-03-29 08:41 | Cardiology Progress Note ---
Progress Note-Cardiology Events since last exam Date Seen by Provider: Mar 29, 2022 Time Seen by Provider: 08:39 Events since last exam I am following her due to heart failure and abnormal troponin level. She rem ains on the cardiac stepdown unit. She remains quite confused. She denies chest discomfort dyspnea, palpitations, syncope, or ankle edema. However, due to her confusion, her answers may not be reliable. Certain portions of this document may have been dictated utilizing voice recognition technology. Inherent to this technology, typographical and grammatical errors may exist. As much as I am diligent to identify and correct these mistakes, some errors may remain in the document. Vitals Last set of Vitals Signs Vital Signs 03/27/22 03/29/22 03/29/22 04:00 08:00 10:33 Temp 36.2 Pulse 60 Resp 24 B/P (MAP) 129/64 (85) Pulse Ox 94 O2 Delivery Nasal Cannula O2 Flow Rate 4.00 FiO2 35 Labs Labs Laboratory Tests 03/29/22 05:00 Exam Vital Signs Vital Signs Date Time Temp Pulse Resp B/P (MAP) Pulse Ox O2 Delivery O2 Flow Rate FiO2 03/29/22 10:33 94 Nasal Cannula 4.00 03/29/22 08:00 36.2 60 24 129/64 (85) 03/27/22 04:00 35 Physical Exam General: Awake but confused. No acute distress. Eye: No xanthelasma. HENT: Normocephalic. Neck: Jugular venous pressure does not appear elevated. Respiratory: Lungs have decreased breath sounds at the bases with bibasilar crackles. Respirations are non-labored. Breath sounds are equal. Symmetrical chest wall expansion. Cardiovascular: Normal rate. Irregular rhythm. 3/6 systolic ejection murmur. No gallop. No edema. Gastrointestinal: Soft. Normal bowel sounds. Skin: Warm. Dry. Neurologic: Awake but oriented to person only. Cranial nerves 3-11 grossly intact. She appears to have some degree of right-sided weakness but is not following commands to confirm. Psychiatric: Confused. Labs Laboratory Tests Test 03/29/22 05:00 Range/Units White Blood Count 10.5 4.3-11.0 10^3/uL Red Blood Count 3.65 L 3.80-5.11 10^6/uL Hemoglobin 10.7 L 11.5-16.0 g/dL Hematocrit 35 35-52 % Mean Corpuscular Volume 95 80-99 fL Mean Corpuscular Hemoglobin 29 25-34 pg Mean Corpuscular Hemoglobin Concent 31 L 32-36 g/dL Red Cell Distribution Width 13.6 10.0-14.5 % Platelet Count 314 130-400 10^3/uL Mean Platelet Volume 10.8 9.0-12.2 fL Immature Granulocyte % (Auto) 0 % Neutrophils (%) (Auto) 73 42-75 % Lymphocytes (%) (Auto) 17 12-44 % Monocytes (%) (Auto) 9 0-12 % Eosinophils (%) (Auto) 0 0-10 % Basophils (%) (Auto) 0 0-10 % Neutrophils # (Auto) 7.6 1.8-7.8 10^3/uL Lymphocytes # (Auto) 1.8 1.0-4.0 10^3/uL Monocytes # (Auto) 1.0 0.0-1.0 10^3/uL Eosinophils # (Auto) 0.0 0.0-0.3 10^3/uL Basophils # (Auto) 0.0 0.0-0.1 10^3/uL Immature Granulocyte # (Auto) 0.0 0.0-0.1 10^3/uL Sodium Level 143 135-145 MMOL/L Potassium Level 3.4 L 3.6-5.0 MMOL/L Chloride Level 103 98-107 MMOL/L Carbon Dioxide Level 29 21-32 MMOL/L Anion Gap 11 5-14 MMOL/L Blood Urea Nitrogen 27 H 7-18 MG/DL Creatinine 0.78 0.60-1.30 MG/DL Estimat Glomerular Filtration Rate 77 BUN/Creatinine Ratio 35 Glucose Level 89 70-105 MG/DL Calcium Level 9.3 8.5-10.1 MG/DL Corrected Calcium 9.7 8.5-10.1 MG/DL Total Bilirubin 1.0 0.1-1.0 MG/DL Aspartate Amino Transf (AST/SGOT) 25 5-34 U/L Alanine Aminotransferase (ALT/SGPT) 18 0-55 U/L Alkaline Phosphatase 77 40-136 U/L Total Protein 6.2 L 6.4-8.2 GM/DL Albumin 3.5 3.2-4.5 GM/DL Diagnosis/Problems Diagnosis/Problems (1) Acute on chronic heart failure with preserved ejection fraction (HFpEF) Status: Acute Assessment & Plan: She appears to have some decompensation of her chronic heart failure. She is ordered for intravenous Lasix. We will need to watch her renal function closely. I have ordered low-dose beta-leeanna. I would suggest we stop her amlodipine since she seems to have some chronic, intermittent lower extremity edema which could be caused by amlodipine. I will obtain a chest x- ray today. (2) Elevated troponin Status: Acute Assessment & Plan: She had a probable type II non-ST elevation myocardial infarction due to acute on chronic heart failure with supply/demand mismatch. Given her age, chronic debility and multiple comorbid conditions, she is not a candidate for an invasive cardiac evaluation. I recommend she continue on beta- leeanna and statin medication. She is not on aspirin because she takes apixaban for atrial fibrillation. (3) Permanent atrial fibrillation Status: Chronic Assessment & Plan: She appears to have permanent atrial fibrillation. She has been on low-dose carvedilol for rate control and apixaban for stroke prophylaxis. Although she is over the age of 82, her weight is above 60 kg and creatinine and is below 1.5. As such, there is no indication for adjusting the dose of apixaban. (4) Aortic stenosis Assessment & Plan: She has severe aortic stenosis. Given her comorbid conditions, she would probably not to be a good candidate for either surgical or percutaneous aortic valve replacement. (5) Mitral regurgitation Assessment & Plan: She also has mitral regurgitation. This could be contributing to the heart failure. (6) Primary hypertension Assessment & Plan: I ordered her home dose of beta-leeanna. As above, I would suggest stopping amlodipine since this could be contributing to her intermittent lower extremity edema. (7) Mixed hyperlipidemia Assessment & Plan: Statin medication has been ordered. (8) Acute kidney injury superimposed on chronic kidney disease Status: Acute Assessment & Plan: We will need to watch her renal function closely with the intravenous furosemide. (9) Acute on chronic respiratory failure with hypoxemia Status: Acute Assessment & Plan: Most likely due to chronic obstructive pulmonary disease with superimposed acute on chronic heart failure. (10) History of cerebrovascular accident with residual deficit Status: Chronic Assessment & Plan: Continue apixaban for the atrial fibrillation. It is difficult to assess whether or not she has any new neurologic deficits. (11) Cardiac pacemaker in situ Assessment & Plan: She has a dual-chamber pacemaker in place but appears to have atrial fibrillation with [place] AV conduction on her electrocardiogram. KHADRA ROSAS JR, MD Mar 29, 2022 08:41
--- NOTE | 2022-03-29 08:51 | Physical Therapy Evaluation ---
PT Evaluation-General Medical Diagnosis Admission Date Mar 26, 2022 at 18:27 Medical Diagnosis: sepsis, Acute respiratory failure Onset Date: Mar 26, 2022 Therapy Diagnosis Therapy Diagnosis: impaired mobility Height/Weight Height (Feet): 5 Height (Inches): 4.00 Weight (Pounds): 182 Weight (Ounces): 0.6 Precautions Precautions/Isolations: Fall Prevention, Standard Precautions Referral Physician: Fifi Reason for Referral: Evaluation/Treatment Medical History Pertinent Medical History: Atrial Fib, Arthritis, COPD, CVA, Dementia, GERD, HTN Additional Medical History Past Medical History Surgeries: Section, Pacemaker, Tonsillectomy Asthma, Sleep Apnea Currently Using CPAP: No Atrial Fibrillation, High Cholesterol, Hypertension, Valvular Heart Disease Stroke Sexually Transmitted Disease: No HIV/AIDS: No Renal Failure Gastroesophageal Reflux, Chronic Constipation Arthritis, Chronic Back Pain Glaucoma Loss of Vision: Bilateral Hearing Impairment: Hard of Hearing Anxiety, Depression Blood Disorders: No Adverse Reaction/Blood Tranf: No (N/A) Reviewed History: Yes Social History Current Living Status: Children Entry Into Home: Level Entry Prior Prior Level of Function SCALE: Activities may be completed with or without assistive devices. 0-Wkmhhxcgyk-ikeyqzv completes the activity by him/herself with no assistance from a helper. 5-Set-up or Clean-up Assistance-helper sets up or cleans up; patient completes activity. [place] assists only prior to or following the activity. 4-Supervision or Touching Assistance-helper provides verbal cues and/or touching/steadying and/or contact guard assistance as patient completes activity. Assistance may be provided throughout the activity or intermittently. 3-Partial/Moderate Assistance-helper does LESS THAN HALF the effort. [place] lifts, holds or supports trunk or limbs, but provides less than half the effort. 2-Substantial/Maximal Assistance-helper does MORE THAN HALF the effort. [place] lifts or holds trunk or limbs and provides more than half the effort. 1-Uzebbpeat-ieadba does ALL the effort. Patient does none of the effort to complete the activity. Or, the assistance of 2 or more helpers is required for the patient to complete the activity. If activity was not attempted, code reason: 7-Patient Refused. 9-Not Applicable-not attempted and the patient did not perform the activity before the current illness, exacerbation or injury. 10-Not Attempted due to Environmental Limitations-(lack of equipment, weather restraints, etc.). 88-Not Attempted due to Medical Conditions or Safety Concerns. Bed Mobility: 3 Transfers (B,C,W/C): 3 Patient states her son helps her with transfers and she doesn't ambulate now. PT Evaluation-Current Subjective Patient in bed pre tx, agrees to PT, has no complaints of pain. Pt/Family Goals none stated Objective Patient Orientation: Person, Confused, Mumbles Attachments: Oxygen, Chavis Catheter ROM/Strength ROM Lower Extremities WNL except patient has limited knee extension bilaterally, about 15 degrees from full extension Strength Lower Extremities grossly 3+/5 BLE Sensory Hearing: Impaired Transfers Roll Left to Right (QC): 2 Sit to Lying (QC): 3 Lying to Sitting/Side of Bed(Q: 3 Sit to Stand (QC): 2 Patient was able to sit to the side of the bed with mod assist, once there she can maintain her sitting balance without assist, stands with max assist, mod assist to lay back down Balance Sitting Static: Fair Sitting Dynamic: Fair Standing Static: Poor Treatment BLE seated exercises x10 (hip flexion, LAQ, AP) Assessment/Needs Patient in bed post tx with nurse call, phone, tray, all needs met, bed alarm on. Patient has impaired mobility, strength, endurance. Needs mod assist for supine <-> sit and max assist to stand. Patient was not placed in recliner at this time due to her own safety, patient is confused and has mittens on. Rehab Potential: Fair 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 Senior Living Goals 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 Time Frame: Apr 05, 2022 Roll Left & Right (QC): 4 Sit to Lying (QC): 4 Lying-Sitting on Side/Bed(QC): 4 Sit to Stand (QC): 3 Chair/Xvd-gl-Icnfi Xfer(QC): 3 PT Plan Problem List Problem List: Activity Tolerance, Functional Strength, Safety, Balance, Gait, Transfer, Bed Mobility, ROM Treatment/Plan Treatment Plan: Continue Plan of Care Treatment Plan: Bed Mobility, Education, Functional Activity Katherine, Functional Strength, Gait, Safety, Therapeutic Exercise, Transfers Treatment Duration: Apr 05, 2022 Frequency: 6 times per week Estimated Hrs Per Day: .25 hour per day Patient and/or Family Agrees t: Yes Safety Risks/Education Patient Education: Correct Positioning, Safety Issues Teaching Recipient: Patient Teaching Methods: Demonstration, Discussion Response to Teaching: Reinforcement Needed Discharge Recommendations Plan Patient will perform bed mobility and transfer training, balance and endurance training, functional strengthening, and education, to improve functional mobility and independence at home. Therapy Discharge Recommendati: Other, See Comments (NH) Time/GCodes Time In: 820 Time Out: 831 Total Billed Treatment Time: 11 Total Billed Treatment 1 visit JORDAN Leatha' JOSIE HAWKINS PT Mar 29, 2022 08:51
[2022-03-29] MEDS: GABAPENTIN 300 MG (NEURONTIN) CAP PO SCH ×2 (09:02→20:03)
[2022-03-29] MEDS: OMEGA 3 (FISH OIL) 1000 MG CAP PO SCH (09:02)
[2022-03-29] MEDS: FUROSEMIDE 40 MG/4 ML INJ (LASIX) IVP SCH (09:02)
[2022-03-29] MEDS: APIXABAN 5 MG (ELIQUIS) TABLET PO SCH ×2 (09:02→20:02)
--- NOTE | 2022-03-29 11:12 | Occupational Ther Daily Note ---
OT Current Status-Daily Note Subjective Pt with improved command following this date but does still require some repetition and simplification. Appearance Pt left reclined in bed, all needs within reach, PERSONAL LINES INSURANCE AGENT in room at OT departure. Mental Status/Objective Patient Orientation: Person Attachments: Chavis Catheter, IV, Oxygen, Telemetry ADL-Treatment Therapy Code Descriptions/Definitions Functional [place] Measure: 0=Not Assessed/NA 4=Minimal Assistance 1=Total Assistance 5=Supervision or Setup 2=Maximal Assistance 6=Modified [place] 3=Moderate Assistance 7=Complete IndependenceSCALE: Activities may be completed with or without assistive devices. 7-Tupfdhncin-eolbxsp completes the activity by him/herself with no assistance from a helper. 5-Set-up or Clean-up Assistance-helper sets up or cleans up; patient completes activity. [place] assists only prior to or following the activity. 4-Supervision or Touching Assistance-helper provides verbal cues and/or touching/steadying and/or contact guard assistance as patient completes activit y. Assistance may be provided throughout the activity or intermittently. 3-Partial/Moderate Assistance-helper does LESS THAN HALF the effort. [place] lifts, holds or supports trunk or limbs, but provides less than half the effort. 2-Substantial/Maximal Assistance-helper does MORE THAN HALF the effort. [place] lifts or holds trunk or limbs and provides more than half the effort. 3-Mvkfmwqkg-sgionu does ALL the effort. Patient does none of the effort to complete the activity. Or, the assistance of 2 or more helpers is required for the patient to complete the activity. If activity was not attempted, code reason: 7-Patient Refused. 9-Not Applicable-not attempted and the patient did not perform the activity before the current illness, exacerbation or injury. 10-Not Attempted due to Environmental Limitations-(lack of equipment, weather restraints, etc.). 88-Not Attempted due to Medical Conditions or Safety Concerns. Oral Hygiene (QC): 4 On/Off Footwear: 1 Pt receiving a sponge bath from nursing staff at OT arrival. Limited effort from patient to assist. She Requires tactile and verbal cues to assist in washing chest. HOHA needed to untwist cap off toothpaste tube and squeeze toothpaste onto brush. No cue needed to initiate bringing toothbrush to mouth. Pt was able to brush all quadrants of mouth without cues or physical assist. She did require cue to rinse and spit (including visual cues to open mouth as she had tendency to keep lips shut tight). Education OT Patient Education: Progress toward Goal/Update tx plan, Purpose of tx/functional activities, Safety issues Teaching Recipient: Patient Teaching Methods: Demonstration, Discussion Response to Teaching: Return Demonstration, Reinforcement Needed OT Director Of Medical Staff Services Goals Shelter Goals Time Frame: Apr 11, 2022 Eating (QC): 4 Oral Hygiene (QC): 3 Toileting Hygiene (QC): 3 Upper Body Dressing (QC): 3 Lower Body Dressing (QC): 3 1=Demonstrate adherence to instructed precautions during ADL tasks. 2=Patient will verbalize/demonstrate understanding of assistive devices/modifications for ADL. 3=Patient will improve strength/tolerance for activity to enable patient to perform ADL's. OT Education/Plan Problem List/Assessment Assessment: Decreased Activ Tolerance, Decreased Safety Aware, Decreased UE Strength, Impaired Bed Mobility, Impaired Cognition, Impaired Coordination, Impaired Funct Balance, Impaired Self-Care Skills, Restricted Funct UE ROM Discharge Recommendations Plan/Recommendations: Continue POC Therapy Discharge Recommendati: Post Acute OT Treatment Plan/Plan of Care Treatment,Training & Education: Yes Patient would benefit from OT for education, treatment and training to promote independence in ADL's, mobility, safety and/or upper extremity function for ADL' s. Plan of Care: ADL Retraining, Caregiver Training, Functional Mobility, Group Exercise/Act as Ind, UE Funct Exercise/Act, UE Neuromus Re-Ed/Coord Treatment Duration: Apr 11, 2022 Frequency: 3 times per week (3-5x/week) Estimated Hrs Per Day: .25 hour per day Rehab Potential: Fair Time/GCodes Start Time: 10:47 Stop Time: 11:03 Total Time Billed (hr/min): 16 Billed Treatment Time 1 visit ADL Kaitlyn Talbot OT Mar 29, 2022 11:12
--- NOTE | 2022-03-29 11:49 | Diagnostic Imaging Report ---
INDICATION: Shortness of breath. TIME OF EXAM: 11:27 AM. COMPARISON: 05/30/2021. FINDINGS: The heart is enlarged but stable. The cardiac pacemaker remains in place. No failure is identified. There may be some minimal infiltrate or atelectasis in the right base. The left lung is clear. No significant effusion is seen. There is no pneumothorax. IMPRESSION: Cardiomegaly and minimal right basilar infiltrate or atelectasis. Dictated by: Dictated on workstation # [id number]
--- NOTE | 2022-03-29 14:19 | Progress Note - Hospitalist ---
Subjective HPI/CC On Admission Date Seen by Provider: Mar 29, 2022 Time Seen by Provider: 10:35 Citlaly Salazar is an 82 year old female with PMH HTN, HLD, AFib, CVA, COPD, HFpEF, who presented with shortness of breath. She is a poor historian and unable to provide any history. She reportedly came from home by EMS. She was found to have a CHF exacerbation and was started on Lasix and BiPAP. Subjective/Events-last exam She is confused. She is not short of breath. She denies pain. Focused Exam Lactate Level 03/26/22 18:10: Lactic Acid Level 1.34 Time of Focused Exam: 18:15 Objective Exam Vital Signs Vital Signs Date Time Temp Pulse Resp B/P (MAP) Pulse Ox O2 Delivery O2 Flow Rate FiO2 03/29/22 14:12 94 Nasal Cannula 4.00 03/29/22 12:43 60 03/29/22 12:00 36.5 13 114/67 (83) 03/27/22 04:00 35 Capillary Refill : Less Than 3 Seconds General Appearance: No Apparent Distress, Chronically ill Respiratory: No Respiratory Distress, Decreased Breath Sounds Cardiovascular: Regular Rate, Rhythm, No Murmur Gastrointestinal: Normal Bowel Sounds, Soft Extremity: Normal Inspection, No Pedal Edema Neurologic/Psychiatric: Alert, Normal Mood/Affect Skin: Normal Color, Warm/Dry Results/Procedures Lab Laboratory Tests 03/29/22 05:00 Patient resulted labs reviewed. Imaging: Reviewed Imaging Report Assessment/Plan Assessment and Plan Assess & Plan/Chief Complaint Acute on chronic HFpEF Acute on chronic respiratory failure with hypoxia and hypercapnia Elevated troponin ELAINE COPD exacerbation Pneumonia Cardiology following Lasix Steroids MAT protocol Rocephin and Azithromycin Wean oxygen as able Home oxygen study Likely discharge home tomorrow AFib Continue Eliquis Diagnosis/Problems Diagnosis/Problems (1) Acute on chronic heart failure with preserved ejection fraction (HFpEF) Status: Acute (2) Acute exacerbation of chronic obstructive pulmonary disease (COPD) Status: Acute (3) Acute on chronic respiratory failure with hypoxemia Status: Acute (4) Acute kidney injury superimposed on chronic kidney disease Status: Acute (5) Permanent atrial fibrillation Status: Chronic (6) History of cerebrovascular accident with residual deficit Status: Chronic (7) PNA (pneumonia) Status: Acute (8) Dementia Status: Acute MARCO A CÁRDENAS MD Mar 29, 2022 14:19
[2022-03-29] MEDS: cefTRIAXone 1 GM/50 ML (PRE-MIX) IV SCH (18:13)
[2022-03-29] MEDS: AMITRIPTYLINE 25 MG (ELAVIL) TAB PO SCH (20:02)
[2022-03-29] MEDS: rOPINIRole 1 MG (REQUIP) TABLET PO SCH (20:03)
[2022-03-29] MEDS: AtorvaSTATin TABLET 10 MG TABLET PO SCH (20:03)
[2022-03-29] MEDS ORDERED: AZITHROMYCIN 250 MG TAB (ZITHROMAX) PO SCH (21:00)
[2022-03-30] VITALS (8 sets, daily range): BP systolic 94–125; BP diastolic 60–69
[2022-03-30] MEDS: RT-ALBUTEROL SULF 2.5 MG/3 ML PRE-MIX VIAL INH SCH ×2 (02:19→06:36)
[2022-03-30 04:39] LABS: BASOPHILS % (AUTO) 0 % (0-10); EOSINOPHILS # (AUTO) 0.2 10^3/uL (0.0-0.3); EOSINOPHILS % (AUTO) 3 % (0-10); HEMATOCRIT 36 % (35-52); HEMOGLOBIN 11.1 g/dL (11.5-16.0); LYMPHOCYTES # (AUTO) 2.1 10^3/uL (1.0-4.0); LYMPHOCYTES % (AUTO) 26 % (12-44); MEAN CORPUSCULAR HEMOGLOBIN 29 pg (25-34); MEAN CORPUSCULAR HGB CONC 31 g/dL (32-36); MEAN CORPUSCULAR VOLUME 95 fL (80-99); MEAN PLATELET VOLUME 10.8 fL (9.0-12.2); MONOCYTES # (AUTO) 0.8 10^3/uL (0.0-1.0); MONOCYTES % (AUTO) 10 % (0-12); NEUTROPHILS # (AUTO) 4.9 10^3/uL (1.8-7.8); NEUTROPHILS % (AUTO) 61 % (42-75); PLATELET COUNT 293 10^3/uL (130-400); WHITE BLOOD COUNT 8.1 10^3/uL (4.3-11.0)
[2022-03-30 05:00] LABS: ALBUMIN 3.4 GM/DL (3.2-4.5)
[2022-03-30 05:01] LABS: POTASSIUM 3.6 MMOL/L (3.6-5.0)
[2022-03-30 05:02] LABS: CALCIUM 9.3 MG/DL (8.5-10.1)
[2022-03-30 05:05] LABS: BILIRUBIN,TOTAL 0.9 MG/DL (0.1-1.0)
[2022-03-30 05:07] LABS: CREATININE SERUM 0.9 MG/DL (0.60-1.30)
[2022-03-30] MEDS: predniSONE 20 MG TAB PO SCH (06:07)
[2022-03-30] MEDS ORDERED: CEFD300C3 PO (07:57)
[2022-03-30] MEDS: APIXABAN 5 MG (ELIQUIS) TABLET PO SCH (08:19)
[2022-03-30] MEDS: FUROSEMIDE 40 MG/4 ML INJ (LASIX) IVP SCH (08:19)
[2022-03-30] MEDS: OMEGA 3 (FISH OIL) 1000 MG CAP PO SCH (08:19)
[2022-03-30] MEDS: GABAPENTIN 300 MG (NEURONTIN) CAP PO SCH (08:19)
--- NOTE | 2022-03-30 11:42 | Occupational Ther Daily Note ---
OT Current Status-Daily Note Subjective Pt crying at OT arrival and tearful throughout entire treatment. Pt unable to give reasoning for being upset. At one point, pt does verbalize that she does not want to return to the basement where she stays in with her son. Appearance Pt left sitting in recliner, chair alarm activated. All needs within reach. Mental Status/Objective Patient Orientation: Person, Confused Attachments: Chavis Catheter, IV, Oxygen, Telemetry ADL-Treatment Therapy Code Descriptions/Definitions Functional [place] Measure: 0=Not Assessed/NA 4=Minimal Assistance 1=Total Assistance 5=Supervision or Setup 2=Maximal Assistance 6=Modified [place] 3=Moderate Assistance 7=Complete IndependenceSCALE: Activities may be completed with or without assistive devices. 5-Jzveqoghno-qngfpry completes the activity by him/herself with no assistance from a helper. 5-Set-up or Clean-up Assistance-helper sets up or cleans up; patient completes activity. [place] assists only prior to or following the activity. 4-Supervision or Touching Assistance-helper provides verbal cues and/or touching/steadying and/or contact guard assistance as patient completes activit y. Assistance may be provided throughout the activity or intermittently. 3-Partial/Moderate Assistance-helper does LESS THAN HALF the effort. [place] lifts, holds or supports trunk or limbs, but provides less than half the effort. 2-Substantial/Maximal Assistance-helper does MORE THAN HALF the effort. [place] lifts or holds trunk or limbs and provides more than half the effort. 5-Fvocfirru-iqhzfa does ALL the effort. Patient does none of the effort to complete the activity. Or, the assistance of 2 or more helpers is required for the patient to complete the activity. If activity was not attempted, code reason: 7-Patient Refused. 9-Not Applicable-not attempted and the patient did not perform the activity before the current illness, exacerbation or injury. 10-Not Attempted due to Environmental Limitations-(lack of equipment, weather restraints, etc.). 88-Not Attempted due to Medical Conditions or Safety Concerns. On/Off Footwear: 1 Supine>sit: min a to elevate torso. Good sitting balance at EOB. Pt unable to follow directions to don socks. She is often verbalizing nonsensical thoughts and is crying throughout. Thus, Dependent to don. Max-dependent to transfer to chair. Pt continues to cry at therapy departure despite multiple attempts to calm/ease patients mood. Education OT Patient Education: Correct positioning, Progress toward Goal/Update tx plan, Purpose of tx/functional activities, Safety issues, Transfer techniques Teaching Recipient: Patient Teaching Methods: Discussion Response to Teaching: Unable to Return Demonstration, Unable to Comprehend, Reinforcement Needed OT Unix System Administrator Goals Fpc Goals Time Frame: Apr 11, 2022 Eating (QC): 4 Oral Hygiene (QC): 3 Toileting Hygiene (QC): 3 Upper Body Dressing (QC): 3 Lower Body Dressing (QC): 3 1=Demonstrate adherence to instructed precautions during ADL tasks. 2=Patient will verbalize/demonstrate understanding of assistive devices/modifications for ADL. 3=Patient will improve strength/tolerance for activity to enable patient to pe rform ADL's. OT Education/Plan Problem List/Assessment Assessment: Decreased Activ Tolerance, Decreased Safety Aware, Decreased UE Strength, Dependent Transfers, Impaired Cognition, Impaired Funct Balance, Impa ired Self-Care Skills, Restricted Funct UE ROM Discharge Recommendations Plan/Recommendations: Continue POC Treatment Plan/Plan of Care Treatment,Training & Education: Yes Patient would benefit from OT for education, treatment and training to promote independence in ADL's, mobility, safety and/or upper extremity function for ADL's. Plan of Care: ADL Retraining, Caregiver Training, Functional Mobility, Group Exercise/Act as Ind, UE Funct Exercise/Act, UE Neuromus Re-Ed/Coord Treatment Duration: Apr 11, 2022 Frequency: 3 times per week (3-5x/week) Estimated Hrs Per Day: .25 hour per day Rehab Potential: Fair Time/GCodes Start Time: 11:18 Stop Time: 11:35 Total Time Billed (hr/min): 17 Billed Treatment Time 1 visit Kaitlyn Zaldivar OT Mar 30, 2022 11:42
--- NOTE | 2022-03-30 11:45 | Physical Therapy Daily Note ---
PT Daily Note-Current Subjective Patient in bed pre tx, agrees to PT, voices no complaints of pain, she is emotional and crying part of the time but can't really express why. Appearance Patient in recliner post tx with nurse call, phone, tray, chair alarm on. Mental Status Patient Orientation: Person, Confused Attachments: Chavis Catheter Transfers SCALE: Activities may be completed with or without assistive devices. 6-Dbzdtynztj-retcvnl completes the activity by him/herself with no assistance from a helper. 5-Set-up or Clean-up Assistance-helper sets up or cleans up; patient completes activity. [place] assists only prior to or following the activity. 4-Supervision or Touching Assistance-helper provides verbal cues and/or touching/steadying and/or contact guard assistance as patient completes activity. Assistance may be provided throughout the activity or intermittently. 3-Partial/Moderate Assistance-helper does LESS THAN HALF the effort. [place] lifts, holds or supports trunk or limbs, but provides less than half the effort. 2-Substantial/Maximal Assistance-helper does MORE THAN HALF the effort. [place] lifts or holds trunk or limbs and provides more than half the effort. 9-Eltxqyhju-jejdvo does ALL the effort. Patient does none of the effort to complete the activity. Or, the assistance of 2 or more helpers is required for the patient to complete the activity. If activity was not attempted, code reason: 7-Patient Refused. 9-Not Applicable-not attempted and the patient did not perform the activity before the current illness, exacerbation or injury. 10-Not Attempted due to Environmental Limitations-(lack of equipment, weather restraints, etc.). 88-Not Attempted due to Medical Conditions or Safety Concerns. Roll Left & Right (QC): 3 Lying to Sitting/Side of Bed(Q: 3 Sit to Stand (QC): 2 Chair/Kme-hq-Gmcgh Xfer(QC): 2 max assist stand pivot transfer to the recliner, patient is able to bear some we ight through her legs but will not stand up completely Treatments bed mobility and transfers Assessment Current Status: Poor Progress Patient is still emotional and crying at the end of tx. She states that she doesn't want to look at the wall in front of her so her chair is turned to the windows and blinds are opened so patient can see outside. PT Long-Term Goals Academic Coordinator Goals PT Academic Coordinator Goals Time Frame: Apr 05, 2022 Roll Left & Right (QC): 4 Sit to Lying (QC): 4 Lying-Sitting on Side/Bed(QC): 4 Sit to Stand (QC): 3 Chair/Lmo-fv-Jakxy Xfer(QC): 3 PT Plan Problem List Problem List: Activity Tolerance, Functional Strength, Safety, Balance, Gait, Transfer, Bed Mobility, ROM Treatment/Plan Treatment Plan: Continue Plan of Care Treatment Plan: Bed Mobility, Education, Functional Activity Katherine, Functional Strength, Gait, Safety, Therapeutic Exercise, Transfers Treatment Duration: Apr 05, 2022 Frequency: 6 times per week Estimated Hrs Per Day: .25 hour per day Patient and/or Family Agrees t: Yes Safety Risks/Education Patient Education: Transfer Techniques, Correct Positioning, Safety Issues Teaching Recipient: Patient Teaching Methods: Demonstration, Discussion Response to Teaching: Reinforcement Needed Time/GCodes Time In: 1119 Time Out: 1133 Total Billed Treatment Time: 14 Total Billed Treatment 1 visit FA Emy' JOSIE HAWKINS PT Mar 30, 2022 11:45
--- NOTE | 2022-03-30 12:04 | D/C HH Face to Face Order ---
D/C Face to Face Orders Instructions for Patient [facility], Patient Instructions/FollowUp: See instructions, follow up with Dr. Boudreaux in one week Physician to follow Patient: Janusz Discharge Diet for Home: No Restrictions Patient Data-Allergies,Ht & Wt Patient Allergies: Coded Allergies: doxycycline (Unverified Allergy, Mild, 11/26/17) Height (Feet): 5 Height (Inches): 4.00 Weight (Pounds): 182 Weight (Ounces): 0.6 Home Health Need/Face to Face Date of Face to Face: Mar 30, 2022 Clinical Findings: Instability, Muscle weakness, Unsteady gait I have seen Pt cfwm-go-uwmw: Yes Discharged To: Home Diagnosis/Conditions: Dementia HFpEF COPD Problems/Diagnosis/Condition: (1) COPD (chronic obstructive pulmonary disease) (2) CHF (congestive heart failure) (3) Debility (4) PNA (pneumonia) (5) Dementia Patient is Homebound due to: Josie fall risk due to instabilty, Muscle weakness Homebound Status Due to the above stated illness, injury or surgical procedure (medical condition or diagnosis) and associated clinical findings, the patient is homebound because of his/her inability to leave home except with aid of a supportive device and/or person AND leaving the home requires a considerable and taxing effort or is medically contraindicated. Pt req the following assistanc: Aid of another person Home Health Nursing Orders Home Health Services Order: Nursing Services, Se[employer] Supervisor-Evaluate & Treat, Physical Therapy-Evaluate & Treat, Speech Language-Evaluate & Treat Home Health Infusion Therapy Line Start Date: Mar 26, 2022 Therapy Orders Therapy Orders: OT (must have SN or PT order), Physical Therapy Therapy Specific Orders: Eval assistive deivces, Teach enviro modifi cations/safety, Gait training, Increase strength/endurance Certify Stmt I certify that this patient is under my care and that I, a nurse practitioner or a physician; a offset press assistant working with me, had a face to face encounter that -jovan ts the physician face to face encounter requirements with this patient as dated. MARCO A CÁRDENAS MD Mar 30, 2022 12:04
[2022-03-30] MEDS ORDERED: RT-ALBUTEROL SULF 2.5 MG/3 ML PRE-MIX VIAL INH SCH (15:00)
--- NOTE | 2022-03-30 17:22 | Physician Query Clarification ---
Physician Query-General Query to Physician: The medical record reflects the following clinical scenario: The patient, in the setting of History/Risk factors, pneumonia, advanced age Clinical Findings Admission VS/Labs: HR 76, RR 31, BP 153/79, SpO2 96% sat on room air T 36.9, WBC 21.6, ABG pH 7.26, PCO2 70, p O2 107 on 8 L, troponin I 0.038 then 0.034, blood culture from day of admission positive for staph urine culture from day of admission positive for gram-positive bacteria/or colonizing bacteria Treatment ER: Solu-Medrol IV, Lasix IV, ceftriaxone IV, azithromycin IV, (unable to give fluids due to Acute HF) Question: Do you agree with the impression of Sepsis per Dr. Kam Kumar? 1. Yes; will document Sepsis present on admission in the Progress Notes 2. No; will continue current documentation in the Progress Notes 3. Other; will document explanation of clinical findings 4. Clinically undetermined; no explanation for clinical findings Please clarify and document your clinical opinion in the Progress Notes and Discharge Summary including the definitive and/or presumptive diagnosis, (suspected or probable), related to the above clinical findings. Please include clinical findings supporting your diagnosis. In responding to this query, please exercise your independent professional judgment. The purpose of this communication is to more accurately reflect the complexity of your patients condition. The fact that a question is asked does not imply that any particular answer is desired or expected. Thank you for timely response to this clarification. Arcelia Bella, MSN, RN Clinical Truck Washer [phone] [email or web address] PHYSICIAN RESPONSE: Based on the clinical findings in the record, please respond to the query above on this document as an addendum. Physician Response: If you have questions please contact: Digital Hardware Design Engineer: Ext: Thank you for your time and cooperation. Clinical Truck Washer/Digital Hardware Design Engineer This is a permanent part of the medical record ARCELIA BELLA Mar 30, 2022 17:22
--- NOTE | 2022-03-30 17:38 | Physician Query Clarification ---
Physician Query-General Query to Physician: Clinical Validation Clarification Dr Archana Calix "May have had a type II non-ST elevation myocardial infarction" has been documented in the medical record. After study, has Type II NSTEMI been ruled out? If it has been ruled out, please document Type II NSTEMI ruled out" in the progress notes and/or discharge summary. 1. Yes, Type II NSTEMI was ruled out/not clinically valid 2. No, Type II NSTEMI has not been ruled out/is clinically valid* *Please document the clinical evidence supportive of this diagnosis (even if now resolved) in the Progress Notes and Discharge Summary 3. Other, with explanation of the clinical findings 4. Clinically undetermined, no explanation for the clinical findings Additional information: acute heart failure with respiratory failure, Pneumonia Clinical indicators shortness of breath requiring BiPAP, troponin I 0.038 then 0.034, BNP 583 Treatment carvedilol, Eliquis, Lasix IV, multiple doses, ceftriaxone IV, cardiology consult with this determination: "Given her age, chronic debility and multiple comorbid conditions, she is not a candidate for an invasive cardiac evaluation." In responding to this query, please exercise your independent professional aprana gment. The purpose of this communication is to more accurately reflect the complexity of your patients condition. The fact that a question is asked does not imply that any particular answer is desired or expected. Thank you for your timely response to this clarification. Arcelia Bella MSN, RN Clinical Cook Mess [email or web address]. PHYSICIAN RESPONSE: Based on the clinical findings in the record, please respond to the query above on this document as an addendum. Physician Response: If you have questions please contact: [employer] Liqu[employer] Sales Representative: Ext: Thank you for your time and cooperation. Clinical Cook Mess/[employer] Sales Representative This is a permanent part of the medical record ARCELIA BELLA Mar 30, 2022 17:38
--- NOTE | 2022-03-30 21:52 | Discharge Summary ---
Discharge Summary Hospital Course Problems/Dx: (1) Acute on chronic heart failure with preserved ejection fraction (HFpEF) Status: Acute (2) Acute exacerbation of chronic obstructive pulmonary disease (COPD) Status: Acute (3) Acute on chronic respiratory failure with hypoxemia Status: Acute (4) Acute kidney injury superimposed on chronic kidney disease Status: Acute (5) Permanent atrial fibrillation Status: Chronic (6) History of cerebrovascular accident with residual deficit Status: Chronic (7) PNA (pneumonia) Status: Acute (8) Dementia Status: Acute Hospital Course Date of Admission: Mar 26, 2022 at 18:27 Admission Diagnosis : Family Physician/Provider: Jason Johnson MD Date of Discharge: 03/30/22 Discharge Diagnosis: [ ] Hospital Course: [ ] Labs and Pending Lab Test: Laboratory Tests 03/30/22 04:31: White Blood Count 8.1, Red Blood Count 3.80, Hemoglobin 11.1L, Hematocrit 36, Mean Corpuscular Volume 95, Mean Corpuscular Hemoglobin 29, Mean Corpuscular Hemoglobin Concent 31L, Red Cell Distribution Width 13.7, Platelet Count 293, Mean Platelet Volume 10.8, Immature Granulocyte % (Auto) 1, Neutrophils (%) (Auto) 61, Lymphocytes (%) (Auto) 26, Monocytes (%) (Auto) 10, Eosinophils (%) (Auto) 3, Basophils (%) (Auto) 0, Neutrophils # (Auto) 4.9, Lymphocytes # (Auto) 2.1, Monocytes # (Auto) 0.8, Eosinophils # (Auto) 0.2, Basophils # (Auto) 0.0, Immature Granulocyte # (Auto) 0.0, Sodium Level 142, Potassium Level 3.6, Chloride Level 102, Carbon Dioxide Level 30, Anion Gap 10, Blood Urea Nitrogen 36H, Creatinine 0.90, Estimat Glomerular Filtration Rate 65, BUN/Creatinine Ratio 40, Glucose Level 93, Calcium Level 9.3, Corrected Calcium 9.8, Total Bilirubin 0.9, Aspartate Amino Transf (AST/SGOT) 22, Alanine Aminotransferase (ALT/SGPT) 24, Alkaline Phosphatase 84, Total Protein 6.0L, Albumin 3.4 Microbiology 03/26/22 Urine Culture - Final, Complete Gram Pos Mixed Bacterial Chloe 03/26/22 Blood Culture - Preliminary, Resulted Staph, Coag Neg ([employer] OFFICER) Home Meds Active Cefdinir 300 Mg Capsule 300 Mg PO BID 5 Days Reported Preservision Areds Softgel (Vit A/C/E/Zinc/Co) 14,320-226 Capsule 1 Cap PO DAILY Connell 3 Fish Oil Softgel (Connell-3 Fatty Acids/Fish Oil) 684 Mg-1,200 Mg Capsule.dr 1 Each PO DAILY Vitamin D3 (Cholecalciferol (Vitamin D3)) 25 Mcg (1000 Unit) Capsule 25 Mcg PO DAILY Proventil Hfa (Albuterol Sulfate) 6.7 Gm Hfa.aer.ad 2 Puff INH Q6H PRN Breo Ellipta 200-25 Mcg INH (Fluticasone/Vilanterol) 200 Mcg-25 Mcg/Dose Blst.w.dev 1 Each IH DAILY Meloxicam 15 Mg Tablet 15 Mg PO DAILY Furosemide 40 Mg Tablet 60 Mg PO DAILY TAKES 1 & (20MG) TABS Potassium Chloride 20 Meq Tab.er.prt 20 Meq PO DAILY ALPRAZolam 0.25 Mg Tablet 0.25 Mg PO HS Ondansetron HCl 4 Mg Tablet 4 Mg PO Q6H PRN Hydrocodone-Acetamin 5-325 mg (Hydrocodone/Acetaminophen) 1 Each Tablet 1 Tab PO Q6H PRN Tramadol HCl 50 Mg Tablet 50 Mg PO BID Amlodipine Besylate 5 Mg Tablet 5 Mg PO DAILY Lisinopril 5 Mg Tablet 2.5 Mg PO DAILY TAKES (5MG) TABLET Spironolactone 25 Mg Tablet 12.5 Mg PO DAILY TAKES OF A 25MG TAB Carvedilol 3.125 Mg Tablet 3.125 Mg PO BID Pravastatin Sodium 10 Mg Tablet 10 Mg PO HS Eliquis (Apixaban) 5 Mg Tablet 5 Mg PO BID Citalopram HBr (Citalopram Hydrobromide) 10 Mg Tablet 10 Mg PO HS Xalatan (Latanoprost) 2.5 Ml Drops 1 Drop OU HS Neurontin (Gabapentin) 300 Mg Capsule 300 Mg PO TID Amitriptyline HCl 25 Mg Tablet 25 Mg PO HS Ropinirole HCl 1 Mg Tablet 1 Mg PO HS Discharge Planning: >30 minutes discharge planning Discharge Instructions Discharge Diet: Low Sodium Diet Activity as Tolerated: Yes Discharge Physical Examination Vital Signs Vital Signs Date Time Temp Pulse Resp B/P (MAP) Pulse Ox O2 Delivery O2 Flow Rate FiO2 03/30/22 14:45 36.7 61 10 106/65 99 Room Air 4.00 03/30/22 04:35 25 General Appearance: No Apparent Distress, Chronically ill Respiratory: Lungs Clear, No Respiratory Distress Cardiovascular: Regular Rate, Rhythm, No Murmur Gastrointestinal: Normal Bowel Sounds, Soft Extremity: Normal Inspection, No Pedal Edema Skin: Normal Color, Warm/Dry Neurologic/Psychiatric: Alert, Normal Mood/Affect Allergies: Coded Allergies: doxycycline (Unverified Allergy, Mild, 11/26/17) Copy Copies To 1: JASON JOHNSON MD Discharge Summary Date of Admission Mar 26, 2022 at 18:27 Date of Discharge Mar 30, 2022 at 14:45 Discharge Date: Mar 30, 2022 Discharge Time: 14:45 Admission Diagnosis Acute on chronic HFpEF Discharge Diagnosis Acute on chronic HFpEF Acute on chronic respiratory failure with hypoxia and hypercapnia COPD exacerbation Pneumonia (1) Acute on chronic heart failure with preserved ejection fraction (HFpEF) Status: Acute (2) Acute exacerbation of chronic obstructive pulmonary disease (COPD) Status: Acute (3) Acute on chronic respiratory failure with hypoxemia Status: Acute (4) Acute kidney injury superimposed on chronic kidney disease Status: Acute (5) Permanent atrial fibrillation Status: Chronic (6) History of cerebrovascular accident with residual deficit Status: Chronic (7) PNA (pneumonia) Status: Acute (8) Dementia Status: Acute MARCO A CÁRDENAS MD Mar 30, 2022 21:52
== END 2022-03-30 14:45 | disposition home health service (06) | DRG 280 ==
LOC: EDUNIT# 16:22 → ER 16:24 → CSD 18:27
PROVIDERS: ADMIT Family Medicine; ATTEND Internal Medicine
PROC: 5A09457 Assistance with Respiratory Ventilation, 24-96 Consecutive Hours, Continuous Positive Airway Pressure (ICD-10-PCS; principal; 2022-03-26)
DX: I13.0 Hypertensive heart and chronic kidney disease with heart failure and stage 1 through stage 4 chronic kidney disease, or unspecified chronic kidney disease (principal); I50.33 Acute on chronic diastolic (congestive) heart failure; I21.A1 Myocardial infarction type 2; J18.9 Pneumonia, unspecified organism; N17.9 Acute kidney failure, unspecified; J44.0 Chronic obstructive pulmonary disease with (acute) lower respiratory infection; J44.1 Chronic obstructive pulmonary disease with (acute) exacerbation; I69.351 Hemiplegia and hemiparesis following cerebral infarction affecting right dominant side; I48.21 Permanent atrial fibrillation; Z66 Do not resuscitate; Z20.822 Contact with and (suspected) exposure to COVID-19; N18.9 Chronic kidney disease, unspecified; Z79.01 Long term (current) use of anticoagulants; I08.0 Rheumatic disorders of both mitral and aortic valves; E78.2 Mixed hyperlipidemia; K21.9 Gastro-esophageal reflux disease without esophagitis; G25.81 Restless legs syndrome; M19.91 Primary osteoarthritis, unspecified site; H54.3 Unqualified visual loss, both eyes; H91.90 Unspecified hearing loss, unspecified ear; F41.9 Anxiety disorder, unspecified; F32.A Depression, unspecified; F03.90 Unspecified dementia, unspecified severity, without behavioral disturbance, psychotic disturbance, mood disturbance, and anxiety; Z79.52 Long term (current) use of systemic steroids; Z88.1 Allergy status to other antibiotic agents
CPT/HCPCS: 36415; 51702; 71045; 71046; 71275; 80053; 81000; 82805; 83605; 83880; 84145; 84484; 85007; 85025; 85027; 85379; 85610; 85730; 86141; 87040; 87088; 87636; 93005; 93306; 94640; 94760; 94761; 96365; 96375

== ENCOUNTER 2022-04-14 09:50 | Inpatient (IN) | payer MEDICARE ==
[~2022-04-14] VITALS: Ht 157 cm; Wt 67.3 kg
[2022-04-14] VITALS (9 sets, daily range): BP systolic 97–155; BP diastolic 57–104
[~2022-04-14 09:50] MED LIST changes: +CEFD300C3 PO; +CHOL10007 PO; +MELO15TA39 PO; +OMEG1CAP24 PO; +RT-ALBUINH INH; +VIT1CAPS5 PO
[2022-04-14] MEDS ORDERED: RT-ALBUTEROL HFA 8.5 GM INHALER IH STA (10:00)
[2022-04-14 10:14] LABS: BASOPHILS # (AUTO) 0.1 10^3/uL (0.0-0.1); BASOPHILS % (AUTO) 0 % (0-10); EOSINOPHILS # (AUTO) 0.5 10^3/uL (0.0-0.3); EOSINOPHILS % (AUTO) 4 % (0-10); HEMATOCRIT 34 % (35-52); HEMOGLOBIN 10.4 g/dL (11.5-16.0); LYMPHOCYTES # (AUTO) 0.6 10^3/uL (1.0-4.0); LYMPHOCYTES % (AUTO) 5 % (12-44); MEAN CORPUSCULAR HEMOGLOBIN 29 pg (25-34); MEAN CORPUSCULAR HGB CONC 31 g/dL (32-36); MEAN CORPUSCULAR VOLUME 96 fL (80-99); MEAN PLATELET VOLUME 11.5 fL (9.0-12.2); MONOCYTES # (AUTO) 0.6 10^3/uL (0.0-1.0); MONOCYTES % (AUTO) 5 % (0-12); NEUTROPHILS # (AUTO) 10.1 10^3/uL (1.8-7.8); NEUTROPHILS % (AUTO) 85 % (42-75); PLATELET COUNT 272 10^3/uL (130-400); WHITE BLOOD COUNT 11.9 10^3/uL (4.3-11.0)
[2022-04-14] MEDS ORDERED: methylPREDNISolone 125 MG (Solu-MEDROL) VIAL IVP ONE (10:15)
[2022-04-14 10:21] LABS: ALBUMIN 3.8 GM/DL (3.2-4.5)
[2022-04-14 10:22] LABS: ABG BASE EXCESS 5.5 MMOL/L (-2.5-2.5); ABG OXYGEN SATURATION 100 % (94-100); ABG PCO2 70 MMHG (35-45); ABG PO2 157 MMHG (79-93)
[2022-04-14 10:22] LABS: CALCIUM 9.4 MG/DL (8.5-10.1)
[2022-04-14 10:23] LABS: INR 1.6 (0.8-1.4); PROTHROMBIN TIME PATIENT 19.3 SEC (12.2-14.7)
[2022-04-14 10:24] LABS: TOTAL PROTEIN 7.1 GM/DL (6.4-8.2)
[2022-04-14 10:25] LABS: BILIRUBIN,TOTAL 1.2 MG/DL (0.1-1.0)
[2022-04-14 10:26] LABS: ABG PH 7.28 (7.37-7.43); INSPIRED O2 50%; VENTILATOR NO
[2022-04-14 10:27] LABS: CREATININE SERUM 1.19 MG/DL (0.60-1.30)
[2022-04-14 10:27] LABS: PATIENT TEMP 37.1
[2022-04-14 10:28] LABS: POTASSIUM 5.7 MMOL/L (3.6-5.0)
[2022-04-14 10:40] LABS: MAGNESIUM 2.2 MG/DL (1.6-2.4)
[2022-04-14 10:43] LABS: ANISOCYTOSIS SLIGHT; BAND NEUTROPHILS 4 %; BASOPHILS % (MANUAL) 0 %; EOSINOPHILS % (MANUAL) 3 %; LYMPHOCYTES % (MANUAL) 11 %; MONOCYTES % (MANUAL) 3 %; NEUTROPHILS % (MANUAL) 79 %
[2022-04-14 10:44] LABS: ELLIPT/OVALOCYTES SLIGHT
[2022-04-14 10:53] LABS: BILIRUBIN,URINE NEGATIVE (NEGATIVE); CLARITY,URINE CLEAR; COLOR,URINE YELLOW; GLUCOSE, URINE (UA) NEGATIVE (NEGATIVE); KETONES,URINE NEGATIVE (NEGATIVE); LEUKOCYTE ESTERASE ,URINE 1+ (NEGATIVE); NITRITE,URINE NEGATIVE (NEGATIVE); PROTEIN,URINE NEGATIVE (NEGATIVE)
--- NOTE | 2022-04-14 11:05 | ED General ---
General Chief Complaint: Respiratory Problems Stated Complaint: SOB Nursing Triage Note: PT ARRIVED BY EMS WITH C/O RESP DISTRESS CPAP IN PLACE. SL IN R AC #18. PT PLACED ON BIPAP UPON ARRIVAL BY RT. PT HAS HX OF DEMENTIA. EMS REPORTS SAT IN 70'S UPON ARRIVAL AND RR 40 Source of Information: Patient, EMS, Family, Old Records Exam Limitations: Physical Impairments History of Present Illness Date Seen by Provider: Apr 14, 2022 Time Seen by Provider: 09:53 Initial Comments This 82-year-old woman presents to the emergency room via EMS in respiratory distress. She was found to have very poor air movement and hypoxia in the 70s when EMS arrived to the home. She had a recent admission for respiratory failure and was discharged 2 weeks ago. She has history of chronic atrial fibrillation, CHF, COPD, prior CVA, and dementia. She has a DO NOT RESUSCITATE order from prior admission which is confirmed by family according to EMS. She arrives with oxygen saturations in the 90s on CPAP administered by EMS. Allergies and Home Medications Allergies Coded Allergies: doxycycline (Unverified Allergy, Mild, 11/26/17) Patient Home Medication List Home Medication List Reviewed: Yes ALPRAZolam (ALPRAZolam) 0.25 Mg Tablet, 0.25 MG PO HS, (Reported) Entered as Reported by: ABHIJEET FELIPE on 05/25/211412 Last Action: Continued Albuterol Sulfate (Proventil Hfa) 6.7 Gm Hfa.aer.ad, 2 PUFF INH Q6H PRN for SHORTNESS OF BREATH, (Reported) Entered as Reported by: ABHIJEET FELIPE on 03/28/22 1422 Last Action: Held Amitriptyline HCl (Amitriptyline HCl) 25 Mg Tablet, 25 MG PO HS, (Reported) Entered as Reported by: SREEDHAR MCMANUS on 09/26/20 1610 Last Action: Continued Amlodipine Besylate (Amlodipine Besylate) 5 Mg Tablet, 5 MG PO DAILY, (Reported) Entered as Reported by: ABHIJEET FELIPE on 05/25/21 1413 Last Action: Continued Apixaban (Eliquis) 5 Mg Tablet, 5 MG PO BID, (Reported) Entered as Reported by: ABHIJEET FELIPE on 02/24/21 1308 Last Action: Continued Carvedilol (Carvedilol) 3.125 Mg Tablet, 3.125 MG PO BID, (Reported) Entered as Reported by: GALDINO FELDMAN on 04/11/21 0953 Last Action: Continued Cholecalciferol (Vitamin D3) (Vitamin D3) 25 Mcg (1000 Unit) Capsule, 25 MCG PO DAILY, (Reported) Entered as Reported by: ABHIJEET FELIPE on 03/28/22 1424 Last Action: Held Citalopram Hydrobromide (Citalopram HBr) 10 Mg Tablet, 10 MG PO HS, (Reported) Entered as Reported by: ABHIJEET FELIPE on 02/24/21 1308 Last Action: Continued Fluticasone/Vilanterol (Breo Ellipta 200-25 Mcg INH) 200 Mcg-25 Mcg/Dose Blst.w.dev, 1 EACH IH DAILY, (Reported) Entered as Reported by: ABHIJEET FELIPE on 03/28/22 142 Last Action: Continued Furosemide (Furosemide) 40 Mg Tablet, 60 MG PO DAILY, (Reported) Entered as Reported by: ABHIJEET FELIPE on 03/28/22 1156 Last Action: Continued Gabapentin (Neurontin) 300 Mg Capsule, 300 MG PO TID, (Reported) Entered as Reported by: SREEDHAR MCMANUS on 09/26/20 1610 Last Action: Continued Hydrocodone/Acetaminophen (Hydrocodone-Acetamin 5-325 mg) 1 Each Tablet, 1 TAB PO Q6H PRN for PAIN-MODERATE (5-7), (Reported) Entered as Reported by: ABHIJEET FELIPE on 05/25/21 1413 Last Action: Continued Latanoprost (Xalatan) 2.5 Ml Drops, 1 DROP OU HS, (Reported) Entered as Reported by: ABHIJEET FELIPE on 09/28/20 0910 Last Action: Continued Lisinopril (Lisinopril) 5 Mg Tablet, 2.5 MG PO DAILY, (Reported) Entered as Reported by: GALDINO FELDMAN on 04/11/21 0953 Last Action: Continued Meloxicam (Meloxicam) 15 Mg Tablet, 15 MG PO 1400, (Reported) Entered as Reported by: ABHIJEET FELIPE on 03/28/22 1422 Last Action: Held [place]-3 Fatty Acids/Fish Oil ([place] 3 Fish Oil Softgel) 684 Mg-1,200 Mg Capsule.dr, 1 EACH PO DAILY, (Reported) Entered as Reported by: ABHIJEET FELIPE on 03/28/22 1424 Last Action: Held Ondansetron HCl (Ondansetron HCl) 4 Mg Tablet, 4 MG PO Q6H PRN for NAUSEA/VOMITING-1ST LINE, (Reported) Entered as Reported by: ABHIJEET FELIPE on 05/25/21 1413 Last Action: Held Potassium Chloride (Potassium Chloride) 20 Meq Tab.er.prt, 20 MEQ PO DAILY, (Reported) Entered as Reported by: ABHIJEET FELIPE on 03/28/22 1156 Last Action: Held Pravastatin Sodium (Pravastatin Sodium) 10 Mg Tablet, 10 MG PO HS, (Reported) Entered as Reported by: ABHIJEET FELIPE on 03/03/21 0844 Last Action: Converted Ropinirole HCl (Ropinirole HCl) 1 Mg Tablet, 1 MG PO HS, (Reported) Entered as Reported by: ESTEFANÍA FIORE on 11/26/17 0843 Last Action: Continued Spironolactone (Spironolactone) 25 Mg Tablet, 12.5 MG PO DAILY, (Reported) Entered as Reported by: GALDINO FELDMAN on 04/11/21 0953 Last Action: Continued Tramadol HCl (Tramadol HCl) 50 Mg Tablet, 50 MG PO BID, (Reported) Entered as Reported by: ABHIJEET FELIPE on 05/25/21 141 Last Action: Continued Vit A/C/E/Zinc/Co (Preservision Areds Softgel) 14,320-226 Capsule, 1 CAP PO DAILY, (Reported) Entered as Reported by: ABHIJEET FELIPE on 03/28/22 142 Last Action: Held Discontinued Medications Cefdinir (Cefdinir) 300 Mg Capsule, 300 MG PO BID Discontinued Reason: Duplicate Order Prescribed by: MARCO A CÁRDENAS on 03/30/22 0757 Last Action: Discontinued Review of Systems Review of Systems Constitutional: weakness EENTM: no symptoms reported Respiratory: see HPI Cardiovascular: no symptoms reported Gastrointestinal: no symptoms reported Genitourinary: no symptoms reported Musculoskeletal: no symptoms reported Skin: no symptoms reported Psychiatric/Neurological: See HPI Hematologic/Lymphatic: No Symptoms Reported Immunological/Allergic: no symptoms reported Past Hibksiy-Qbhbki-Xflzsc Hx Patient Social History Tobacco Use?: No Smoking Status: Unknown if Ever Smoked Substance use?: Unable to obtain Alcohol Use?: Unable to obtain Pt feels they are or have been: No Immunizations Up To Date First/Initial COVID19 Vaccinat: unk date Second COVID19 Vaccination Ronald: unk date Third COVID19 Vaccination Date: unk date Seasonal Allergies Seasonal Allergies: Yes Past Medical History Surgery/Hospitalization HX: Pacemaker placement, COPD, CHF, Surgeries: Yes Section, Pacemaker, Tonsillectomy Respiratory: Yes Asthma, Sleep Apnea, COPD (Uses supplemental nasal cannula at home) Currently Using CPAP: No Cardiac: Yes (CHF; LBBB) Atrial Fibrillation, High Cholesterol, Hypertension, Valvular Heart Disease Neurological: Yes (rest less leg syndrome) Dementia, Stroke Reproductive Disorders: No Sexually Transmitted Disease: No HIV/AIDS: No Genitourinary: Yes Renal Failure Gastrointestinal: Yes Gastroesophageal Reflux, Chronic Constipation Musculoskeletal: Yes Arthritis, Chronic Back Pain Endocrine: No 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) Glaucoma Loss of Vision: Bilateral Hearing Impairment: Hard of Hearing Cancer: No Psychosocial: Yes Anxiety, Depression Integumentary: No Blood Disorders: No Adverse Reaction/Blood Tranf: No (N/A) Family Medical History Heart Disease, COPD, Renal Disease, Other Conditions/Hx Physical Exam-Suspected Sepsis Physical Exam Vital Signs Vital Signs - First Documented 04/14/22 09:50 Temp 37.0 Pulse 78 Resp 26 B/P (MAP) 101/71 (81) Pulse Ox 99 O2 Delivery NIV Bilevel O2 Flow Rate 50.00 FiO2 50 Capillary Refill : Less Than 3 Seconds Blood Pressure Mean: 81 Height, Weight, BMI Height: 5'4.00" Weight: 182lbs. 0.6oz. [id number]; 27.00 BMI Method:Stated General Appearance: WD/WN, Mild Distress, Thin HEENT: PERRL/EOMI, Normal ENT Inspection Neck: Normal Inspection; No JVD Respiratory: Decreased Breath Sounds (Very poor air movement), Wheezing (Minimal tight wheezing) Cardiovascular: Regular Rate, Rhythm, Systolic Murmur (Loud murmur) Gastrointestinal: Non Tender; No Distended Extremity: Non Tender, Pedal Edema Neurologic/Psychiatric: Alert, No Motor/Sensory Deficits, Disoriented Skin: normal color, warm/dry Focused Exam Lactate Level 04/14/22 10:00: Lactic Acid Level 0.72 Lactic Acid Level Progress/Results/Core Measures Suspected Sepsis SIRS Temperature: Pulse: 63 Respiratory Rate: 24 Laboratory Tests 04/14/22 10:00: White Blood Count 11.9H Blood Pressure 97 /81 Mean: 81 04/14/22 10:00: Lactic Acid Level 0.72 Laboratory Tests 04/14/22 10:00: Creatinine 1.19, INR Comment 1.6H, Platelet Count 272, Total Bilirubin 1.2H 04/14/22 15:18: Creatinine 1.00 Results/Orders Lab Results Laboratory Tests Test 04/14/22 10:00 04/14/22 10:04 04/14/22 10:15 04/14/22 10:46 Range/Units White Blood Count 11.9 H 4.3-11.0 10^3/uL Red Blood Count 3.55 L 3.80-5.11 10^6/uL Hemoglobin 10.4 L 11.5-16.0 g/dL Hematocrit 34 L 35-52 % Mean Corpuscular Volume 96 80-99 fL Mean Corpuscular Hemoglobin 29 25-34 pg Mean Corpuscular Hemoglobin Concent 31 L 32-36 g/dL Red Cell Distribution Width 14.6 H 10.0-14.5 % Platelet Count 272 130-400 10^3/uL Mean Platelet Volume 11.5 9.0-12.2 fL Immature Granulocyte % (Auto) 0 % Neutrophils (%) (Auto) 85 H 42-75 % Lymphocytes (%) (Auto) 5 L 12-44 % Monocytes (%) (Auto) 5 0-12 % Eosinophils (%) (Auto) 4 0-10 % Basophils (%) (Auto) 0 0-10 % Neutrophils # (Auto) 10.1 H 1.8-7.8 10^3/uL Lymphocytes # (Auto) 0.6 L 1.0-4.0 10^3/uL Monocytes # (Auto) 0.6 0.0-1.0 10^3/uL Eosinophils # (Auto) 0.5 H 0.0-0.3 10^3/uL Basophils # (Auto) 0.1 0.0-0.1 10^3/uL Immature Granulocyte # (Auto) 0.0 0.0-0.1 10^3/uL Neutrophils % (Manual) 79 % Lymphocytes % (Manual) 11 % Monocytes % (Manual) 3 % Eosinophils % (Manual) 3 % Basophils % (Manual) 0 % Band Neutrophils 4 % Anisocytosis SLIGHT Elliptocytes SLIGHT Prothrombin Time 19.3 H 12.2-14.7 SEC INR Comment 1.6 H 0.8-1.4 Activated Partial Thromboplast Time 36 H 24-35 SEC Sodium Level 143 135-145 MMOL/L Potassium Level 5.7 H 3.6-5.0 MMOL/L Chloride Level 104 98-107 MMOL/L Carbon Dioxide Level 25 21-32 MMOL/L Anion Gap 14 5-14 MMOL/L Blood Urea Nitrogen 26 H 7-18 MG/DL Creatinine 1.19 0.60-1.30 MG/DL Estimat Glomerular Filtration Rate 46 BUN/Creatinine Ratio 22 Glucose Level 115 H 70-105 MG/DL Lactic Acid Level 0.72 0.50-2.00 MMOL/L Calcium Level 9.4 8.5-10.1 MG/DL Corrected Calcium 9.6 8.5-10.1 MG/DL Magnesium Level 2.2 1.6-2.4 MG/DL Total Bilirubin 1.2 H 0.1-1.0 MG/DL Aspartate Amino Transf (AST/SGOT) 24 5-34 U/L Alanine Aminotransferase (ALT/SGPT) 12 0-55 U/L Alkaline Phosphatase 114 40-136 U/L Troponin I < 0.028 <0.028 NG/ML C-Reactive Protein High Sensitivity 1.77 H 0.00-0.50 MG/DL B-Type Natriuretic Peptide 802.4 H <100.0 PG/ML Total Protein 7.1 6.4-8.2 GM/DL Albumin 3.8 3.2-4.5 GM/DL Procalcitonin 0.06 <0.10 NG/ML Influenza Type A (RT-PCR) Not Detected Not Detecte Influenza Type B (RT-PCR) Not Detected Not Detecte SARS-CoV-2 RNA (RT-PCR) Not Detected Not Detecte Blood Gas Puncture Site LT RAD Blood Gas Patient Temperature 37.1 Arterial Blood pH 7.28 *L 7.37-7.43 Arterial Blood Partial Pressure CO2 70 H 35-45 MMHG Arterial Blood Partial Pressure O2 157 H 79-93 MMHG Arterial Blood HCO3 32 H 23-27 MMOL/L Arterial Blood Total CO2 34.0 H 21.0-31.0 MMOL/L Arterial Blood Oxygen Saturation 100 94-100 % Arterial Blood Base Excess 5.5 H -2.5-2.5 MMOL/L Goran Test NA Blood Gas Ventilator Setting NO Blood Gas Inspired Oxygen 50% Urine Color YELLOW Urine Clarity CLEAR Urine pH 5.0 5-9 Urine Specific [place] 1.020 1.016-1.022 Urine Protein NEGATIVE NEGATIVE Urine Glucose (UA) NEGATIVE NEGATIVE Urine Ketones NEGATIVE NEGATIVE Urine Nitrite NEGATIVE NEGATIVE Urine Bilirubin NEGATIVE NEGATIVE Urine Urobilinogen 0.2 < = 1.0 MG/DL Urine Leukocyte Esterase 1+ H NEGATIVE Urine RBC (Auto) TRACE-I H NEGATIVE Urine RBC RARE /HPF Urine WBC 2-5 /HPF Urine Squamous Epithelial Cells RARE /HPF Urine Crystals NONE /LPF Urine Bacteria TRACE /HPF Urine Casts PRESENT /LPF Urine Hyaline Casts 2-5 H /LPF Urine Mucus NEGATIVE /LPF Urine Culture Indicated CULTURE PENDING Test 04/14/22 14:55 04/14/22 15:18 04/14/22 19:26 04/14/22 20:03 Range/Units Blood Gas Puncture Site RT RAD Blood Gas Patient Temperature 35.8 Arterial Blood pH 7.39 7.37-7.43 Arterial Blood Partial Pressure CO2 51 H 35-45 MMHG Arterial Blood Partial Pressure O2 90 79-93 MMHG Arterial Blood HCO3 31 H 23-27 MMOL/L Arterial Blood Total CO2 32.3 H 21.0-31.0 MMOL/L Arterial Blood Oxygen Saturation 98 94-100 % Arterial Blood Base Excess 5.5 H -2.5-2.5 MMOL/L Goran Test YES-POS Blood Gas Ventilator Setting NO Blood Gas Inspired Oxygen 35% Sodium Level 144 135-145 MMOL/L Potassium Level 4.6 3.6-5.0 MMOL/L Chloride Level 104 98-107 MMOL/L Carbon Dioxide Level 26 21-32 MMOL/L Anion Gap 14 5-14 MMOL/L Blood Urea Nitrogen 26 H 7-18 MG/DL Creatinine 1.00 0.60-1.30 MG/DL Estimat Glomerular Filtration Rate 57 BUN/Creatinine Ratio 26 Glucose Level 115 H 70-105 MG/DL Calcium Level 9.5 8.5-10.1 MG/DL Glucometer 138 H 70-110 MG/DL My Orders Orders - JOSE KEYES MD Albuterol Inhaler (Albuterol) (04/14/22 10:00) Covid 19 Inhouse Test (04/14/22 10:01) Cbc With Automated Diff (04/14/22 10:01) Comprehensive Metabolic Panel (04/14/22 10:01) Blood Culture (04/14/22 10:01) Sputum Culture (04/14/22 10:01) Urinalysis (04/14/22 10:01) Urine Culture (04/14/22 10:01) Protime With Inr (04/14/22 10:01) Partial Thromboplastin Time (04/14/22 10:01) Chest 1 View, Ap/Pa Only (04/14/22 10:01) Ed Iv/Invasive Line Start (04/14/22 10:01) Vital Signs Adult Sepsis Patie Q15M (04/14/22 10:01) O2 (04/14/22 10:01) Remove Rings In Anticipation O (04/14/22 10:01) Lactic Acid Analyzer (04/14/22 10:01) Influenza A And B By Pcr (04/14/22 10:01) Bnp Aries (04/14/22 10:01) Hs C Reactive Protein (04/14/22 10:01) Procalcitonin (Pct) (04/14/22 10:01) Bipap (Bilevel) Set Up (04/14/22 10:02) Methylprednisolone Sod Succ (Solu-Medrol (04/14/22 10:15) Arterial Blood Gas (04/14/22 10:07) Ekg Tracing (04/14/22 10:07) Monitor-Rhythm Ecg Trace Only (04/14/22 10:07) Manual Differential (04/14/22 10:00) Magnesium (04/14/22 10:24) Troponin I Benzie (04/14/22 10:24) Arterial Blood Draw - Obtain (04/14/22 ) Ed Admission (Communication) (04/14/22 11:43) Code/Resuscitation (04/14/22 11:46) Medications Given in ED Current Medications Medications Dose Ordered Sig/Jimi Route Start Time Stop Time Status Last Admin Dose Admin Methylprednisolone Sodium Succinate 125 mg ONCE ONCE IVP 04/14/22 10:15 04/14/22 10:16 DC 04/14/22 10:15 125 MG Vital Signs/I&O 04/14/22 04/14/22 04/14/22 04/14/22 09:50 09:50 09:50 10:20 Temp 37.0 Pulse 78 63 Resp 26 24 B/P (MAP) 101/71 (81) Pulse Ox 99 100 99 O2 Delivery NIV Bilevel NIV Bilevel NIV Bilevel O2 Flow Rate 50.00 50.00 FiO2 50 04/14/22 04/14/22 04/14/22 04/14/22 10:35 12:10 12:51 12:55 Pulse 71 70 64 Resp 18 24 B/P (MAP) 134/72 Pulse Ox 100 97 O2 Flow Rate 35.00 35.00 04/14/22 04/14/22 04/14/22 04/14/22 13:17 15:56 16:09 19:00 Temp 37.0 36.0 Pulse 64 61 60 Resp 20 B/P (MAP) 114/58 (76) Pulse Ox 96 96 90 O2 Delivery NIV Bilevel Nasal Cannula O2 Flow Rate 3.00 FiO2 35 04/14/22 04/14/22 04/14/22 19:17 20:00 20:05 Temp 36.4 Pulse 73 76 Resp 18 45 B/P (MAP) 116/65 (82) 155/104 (121) Pulse Ox 90 98 O2 Delivery Nasal Cannula Nasal Cannula NIV Bilevel O2 Flow Rate 3.00 3.00 35.00 Capillary Refill : Less Than 3 Seconds 2 Blood Pressure Mean: 81 Progress Note : Time: 11:09 Progress Note Patient was examined upon arrival. BiPAP was immediately administered along with albuterol treatments inline with the BiPAP and a Solu-Medrol 125 mg IV dose. Septic work-up was pursued but patient did not appear septic as temperature, CRP, WBC, and procalcitonin were not suggestive of bacterial infection. ECG Initial ECG Impression Date: Apr 14, 2022 Initial ECG Impression Time: 10:15 Initial ECG Rate: 61 Comment Ventricular paced rhythm with left axis deviation and left bundle branch block. No ST elevation to suggest ischemia. Diagnostic Imaging Diagonstic Imaging: Xray Plain Films/CT/US/NM/MRI: chest Comments NAME: LUCITA ORLANDO [facility] REC#: [id number] PT STATUS: REG ER : 1940 PHYSICIAN: JOSE KEYES MD ADMIT DATE: 04/14/22/ER Draft Date of Exam:04/14/22 CHEST 1 VIEW, AP/PA ONLY HISTORY: Respiratory failure. COMPARISON: 03/27/2022 TECHNIQUE: Frontal view of the chest. FINDINGS: Lung volumes are normal. There are airspace opacities in the right upper lobe which have increased since the prior study. Right basilar opacities appear stable. There is no large pleural effusion or pneumothorax. There is stable moderate cardiomegaly. The right pacemaker leads appear stable. Additional leads overlie the chest. There are chronic rotator cuff injuries bilaterally. IMPRESSION: 1. Increased right upper lobe airspace opacity, may represent atelectasis or infiltrate. Stable right basilar airspace opacity. 2. Stable cardiomegaly. Dictated on workstation # [id number] Dict: 04/14/22 1114 Trans: 04/14/22 1118 [id number] Interpreted by: HARPAL ERICKSON MD Departure Communication (Admissions) Time/Spoke to Admitting Phy: 11:40 Dr. Cárdenas Impression Primary Impression: Acute on chronic respiratory failure with hypoxemia Additional Impression: COPD exacerbation Disposition: ADMITTED INPATIENT Condition: Improved Admissions Decision to Admit Reason: Admit from ER (General) Decision to Admit/Date: Apr 14, 2022 Time/Decision to Admit Time: 11:40 Departure-Patient Inst. Referrals: JUSTIN JOHNSON MD (PCP/Family) Primary Care Physician JOSE KEYES MD Apr 14, 2022 11:05
--- NOTE | 2022-04-14 11:18 | Diagnostic Imaging Report ---
HISTORY: Respiratory failure. COMPARISON: 03/27/2022 TECHNIQUE: Frontal view of the chest. FINDINGS: Lung volumes are normal. There are airspace opacities in the right upper lobe which have increased since the prior study. Right basilar opacities appear stable. There is no large pleural effusion or pneumothorax. There is stable moderate cardiomegaly. The right pacemaker leads appear stable. Additional leads overlie the chest. There are chronic rotator cuff injuries bilaterally. IMPRESSION: 1. Increased right upper lobe airspace opacity, may represent atelectasis or infiltrate. Stable right basilar airspace opacity. 2. Stable cardiomegaly. Dictated by: Dictated on workstation # [id number]
[2022-04-14 11:21] LABS: BACTERIA,URINE TRACE /HPF; RBC,URINE RARE /HPF; SQUAMOUS EPITHELIAL CELL,UR RARE /HPF
[2022-04-14] MEDS ORDERED: ANTACID SUSP 30 ML UDC (MYLANTA) PO PRN (12:30)
[2022-04-14] MEDS ORDERED: CALCIUM CARBONATE 500 MG (TUMS) TAB.CHEW PO PRN (12:30)
[2022-04-14] MEDS ORDERED: MILK OF MAGNESIA 400 MG/5 ML 30 ML UDC PO PRN (12:30)
[2022-04-14] MEDS ORDERED: polyethylene glycoL POWDER 17 GM (MIRALAX) PACK PO PRN (12:30)
[2022-04-14] MEDS ORDERED: ONDANSETRON 4 MG (ZOFRAN) ORAL DISSOLVE TAB PO PRN (12:30)
[2022-04-14] MEDS ORDERED: BISACODYL 10 MG SUPP (DULCOLAX) PR PRN (12:30)
[2022-04-14] MEDS ORDERED: LACTULOSE SYRUP 10GM/15ML (ENULOSE) 30ML UDC PO PRN (12:30)
[2022-04-14] MEDS ORDERED: ONDANSETRON 4 MG/2 ML (SDV) Z0FRAN IV PRN (12:30)
[2022-04-14] MEDS ORDERED: ENOXAPARIN 40 MG/0.4 ML (LOVENOX) SYR SC SCH (12:30)
[2022-04-14] MEDS ORDERED: MELATONIN 3 MG TABLET PO PRN (12:30)
--- NOTE | 2022-04-14 13:12 | Physical Therapy Progress Note ---
Therapy Progress Note Patient just transferred to ICU from ER. PT to begin in a.m. due to current status. RN confirms. CHRISTI BOYLE PT Apr 14, 2022 13:12
--- NOTE | 2022-04-14 13:29 | Occ Therapy Progress Note ---
Therapy Progress Note OT orders received and chart reviewed. Pt on hold at this time per nursing due to respiratory status. OT will check back later this afternoon. YANELI JONES OT Apr 14, 2022 13:29
--- NOTE | 2022-04-14 14:41 | Tele-ICU Consult ---
History of Present Illness History of Present Illness Date Seen by Provider: Apr 14, 2022 Time Seen by Provider: 14:40 Date of Admission (Tele-ICU Physician , no consultation was requested , but patient is in ICU with ARF - will follow today Available chart/ vitals / labs / Images reviewed Video assessment done using teleICU camera, rest of exam as per RN Discussed with RN. Hospital course: recent admission for respiratory failure and was discharged 2 weeks ago. 04/14- ARF - BIPAPA A/P Acute 0 on chronic ) resp failure, hypercarbic and hypoxic -presuymed CHF/ bronchospam - NEG flu and covid - on BIPAP 07/03 rr 26 tv 330 MV 8 L , 35% - steroid started RUL , RLL opacification on cxr - not new , no significant change with 2 weeks ago - just finished course of ABX , her currewnt temperature, CRP, WBC, and procalcitonin are not suggestive of a new bacterial infection - OFF ABX now COPD exacerbation? - IV steroids severe aortic stenosis - monitor , as per cads -not a candidate for any intervvention Acute on chronic heart failure with preserved ejection fraction (HFpEF) - as per PCP needs for diuresis carefully Permanent atrial fibrillation - rate controlled - [employer] eliwuis Anemia - stable CKD - stable Hyperkalemia ( on spirolactone - repeat dementia has a DO NOT RESUSCITATE order from prior admission Plans in collaboration with bedside consultants and IM MDs. Discussed with RN to reach out if any questions or concerns A total of 31 minutes of critical care time was devoted to this patient today, required to treat and/or prevent further deterioration of critical care condition ( as above ) . Allergies and Home Medications Allergies Coded Allergies: doxycycline (Unverified Allergy, Mild, 11/26/17) Home Medications ALPRAZolam 0.25 Mg Tablet, 0.25 MG PO HS, (Reported) Albuterol Sulfate 6.7 Gm Hfa.aer.ad, 2 PUFF INH Q6H PRN for SHORTNESS OF BREATH, (Reported) Amitriptyline HCl 25 Mg Tablet, 25 MG PO HS, (Reported) Amlodipine Besylate 5 Mg Tablet, 5 MG PO DAILY, (Reported) Apixaban 5 Mg Tablet, 5 MG PO BID, (Reported) Carvedilol 3.125 Mg Tablet, 3.125 MG PO BID, (Reported) Cefdinir 300 Mg Capsule, 300 MG PO BID Prescribed by: MARCO A CÁRDENAS on 03/30/22 0757 Cholecalciferol (Vitamin D3) 25 Mcg (1000 Unit) Capsule, 25 MCG PO DAILY, (Reported) Citalopram Hydrobromide 10 Mg Tablet, 10 MG PO HS, (Reported) Fluticasone/Vilanterol 200 Mcg-25 Mcg/Dose Blst.w.dev, 1 EACH IH DAILY, (Reported) Furosemide 40 Mg Tablet, 60 MG PO DAILY, (Reported) TAKES 1 & (20MG) TABS Gabapentin 300 Mg Capsule, 300 MG PO TID, (Reported) Hydrocodone/Acetaminophen 1 Each Tablet, 1 TAB PO Q6H PRN for PAIN-MODERATE (5- 7), (Reported) Latanoprost 2.5 Ml Drops, 1 DROP OU HS, (Reported) Lisinopril 5 Mg Tablet, 2.5 MG PO DAILY, (Reported) TAKES (5MG) TABLET Meloxicam 15 Mg Tablet, 15 MG PO DAILY, (Reported) [place]-3 Fatty Acids/Fish Oil 684 Mg-1,200 Mg Capsule.dr, 1 EACH PO DAILY, (Reported) Ondansetron HCl 4 Mg Tablet, 4 MG PO Q6H PRN for NAUSEA/VOMITING-1ST LINE, (Reported) Potassium Chloride 20 Meq Tab.er.prt, 20 MEQ PO DAILY, (Reported) Pravastatin Sodium 10 Mg Tablet, 10 MG PO HS, (Reported) Ropinirole HCl 1 Mg Tablet, 1 MG PO HS, (Reported) Spironolactone 25 Mg Tablet, 12.5 MG PO DAILY, (Reported) TAKES OF A 25MG TAB Tramadol HCl 50 Mg Tablet, 50 MG PO BID, (Reported) Vit A/C/E/Zinc/Co 14,320-226 Capsule, 1 CAP PO DAILY, (Reported) Past Medical/Social/Family Hx Patient Social History Tobacco Use?: No Smoking Status: Former Smoker Substance use?: Unable to obtain Alcohol Use?: Unable to obtain Pt stated abuse/neglect: No Immunizations Up To Date First/Initial COVID19 Vaccinat: unk date Second COVID19 Vaccination Ronald: unk date Tetanus Booster (TDap): Unknown Hepatitis A: Yes Hepatitis B: Yes TB Skin Test: None Date of Pneumonia Vaccine: Oct 30, 2016 Current Status Advance Directives: No Advance Directive Location: Home Communicates: Verbally Primary Language: Beninese Preferred Spoken Language: Beninese Is interpretation needed?: No Implanted or Applied Medical D: Pacemaker Review of Systems Constitutional: see HPI Focused Exam Lactate Level 04/14/22 10:00: Lactic Acid Level 0.72 Height, Weight, BMI Height: 5'4.00" Weight: 182lbs. 0.6oz. 77.696538vr; 27.18 BMI Method:Stated Exam Exam Patient acknowledged, consented, and participated in this virtual visit which was conducted using real time audio/video Vital Signs Date Time Temp Pulse Resp B/P (MAP) Pulse Ox O2 Delivery O2 Flow Rate FiO2 04/14/22 13:17 96 NIV Bilevel 35 04/14/22 12:55 64 04/14/22 12:51 70 24 97 35.00 04/14/22 12:10 71 18 134/72 100 04/14/22 10:35 35.00 04/14/22 10:20 63 24 99 50.00 04/14/22 09:50 37.0 78 26 101/71 (81) 100 NIV Bilevel 04/14/22 09:50 99 NIV Bilevel 50 04/14/22 09:50 NIV Bilevel 50.00 Height & Weight Height: 5'4.00" Weight: 182lbs. 0.6oz. 77.777892id; 27.18 BMI Method:Stated General Appearance: WD/WN, Mild Distress, Thin, Other HEENT: PERRL/EOMI, Normal ENT Inspection Neck: Normal Inspection; No JVD Respiratory: Decreased Breath Sounds (Very poor air movement), Wheezing (Minimal tight wheezing) Cardiovascular: Regular Rate, Rhythm, Systolic Murmur (Loud murmur) Capillary Refill: Less Than 3 Seconds Results Lab Laboratory Tests 04/14/22 10:00 Assessment/Plan Assessment/Plan ` EHSAN FULTON MD Apr 14, 2022 14:41
[2022-04-14 15:05] LABS: ABG BASE EXCESS 5.5 MMOL/L (-2.5-2.5); ABG OXYGEN SATURATION 98 % (94-100); ABG PCO2 51 MMHG (35-45); ABG PH 7.39 (7.37-7.43); ABG PO2 90 MMHG (79-93); ABG TCO2 32.3 MMOL/L (21.0-31.0); ALLENS TEST YES-POS; INSPIRED O2 35%; PATIENT TEMP 35.8; VENTILATOR NO
--- NOTE | 2022-04-14 15:30 | Occ Therapy Progress Note ---
Therapy Progress Note OT visited with pt's son who provided information about OF and home set up. Pt's son reports providing pt with total assistance with all ADLs at [facility]. Pt uses a w/c around the house, and requires mod-max A with all transfers. Pt's son is typically able to dependently manage pt's clothing for toileting and dressing, as long as pt was able to provide a little of assistance with standing, but this has became increasingly difficulty lately. Pt's son feels like pt may require NH placement. No skilled OT services indicated at this time, as pt is at [facility] with ADLs, requiring total assistance. D/C from OT at this time. 1, visit D/C YANELI JONES OT Apr 14, 2022 15:30
[2022-04-14 15:37] LABS: POTASSIUM 4.6 MMOL/L (3.6-5.0)
[2022-04-14 15:38] LABS: CALCIUM 9.5 MG/DL (8.5-10.1)
[2022-04-14] MEDS ORDERED: RT-ALBUTEROL/IPRATROPIUM 3 ML (DUONEB) VIAL INH PRN (16:15)
--- NOTE | 2022-04-14 16:48 | History & Physical-Hospitalist ---
History of Present Illness HPI/Chief Complaint Citlaly Salazar is an 82 year old female with PMH HTN, HLD, AFib, CVA, COPD, HFpEF, advanced dementia, who presented with shortness of breath. She is a poor historian and unable to provide any history. She reportedly came from home by EMS. She was found to have a COPD exacerbation and was started on steroids and BiPAP. Source: RN/MD Exam Limitations: clinical condition Date Seen 04/14/22 Time Seen by a Provider: 12:15 Attending Physician Jason Boudreaux MD PCP Admitting Physician: Marco A Cárdenas MD Attending Physician: Marco A Cárdenas MD Referring Physician Date of Admission Apr 14, 2022 at 11:45 Home Medications & Allergies Home Medications Reviewed patient Home Medication Reconciliation performed by pharmacy medication reconciliations gyroscopic engineering technician and/or nursing. Patients Allergies have been reviewed. Allergies Allergies Coded Allergies doxycycline (Unverified Allergy, Mild, 11/26/17) Past Aysgruf-[id number]-Ujxcvx Hx Patient Social History Tobacco Use?: No Smoking Status: Former Smoker Substance use?: Unable to obtain Alcohol Use?: Unable to obtain Pt feels they are or have been: No Immunizations Up To Date Date of Influenza Vaccine: Jun 24, 2020 First/Initial COVID19 Vaccinat: unk date Second COVID19 Vaccination Ronald: unk date Tetanus Booster (TDap): Unknown Hepatitis A: Yes Hepatitis B: Yes Date of Pneumonia Vaccine: Oct 30, 2016 Seasonal Allergies Seasonal Allergies: Yes Current Status Advance Directives: No Advance Directive Location: Home Communicates: Verbally Primary Language: Belarusian Preferred Spoken Language: Belarusian Is interpretation needed?: No Implanted or Applied Medical D: Pacemaker Past Medical History Surgeries: Section, Pacemaker, Tonsillectomy Asthma, Sleep Apnea, COPD (Uses supplemental nasal cannula at home) Currently Using CPAP: No Atrial Fibrillation, High Cholesterol, Hypertension, Valvular Heart Disease Stroke Sexually Transmitted Disease: No HIV/AIDS: No Renal Failure Gastroesophageal Reflux, Chronic Constipation Arthritis, Chronic Back Pain Glaucoma Loss of Vision: Bilateral Hearing Impairment: Hard of Hearing Anxiety, Depression Blood Disorders: No Adverse Reaction/Blood Tranf: No (N/A) Family Medical History Heart Disease, COPD, Renal Disease, Other Conditions/Hx Review of Systems Constitutional: see HPI Physical Exam Physical Exam Vital Signs Vital Signs - First Documented 04/14/22 09:50 Temp 37.0 Pulse 78 Resp 26 B/P (MAP) 101/71 (81) Pulse Ox 99 O2 Delivery NIV Bilevel O2 Flow Rate 50.00 FiO2 50 Capillary Refill : Less Than 3 Seconds Height, Weight, BMI Height: 5'4.00" Weight: 182lbs. 0.6oz. 77.886754to; 27.18 BMI Method:Stated General Appearance: No Apparent Distress, Anxious, Chronically ill, Other (wearing BiPAP) HEENT: PERRL/EOMI, Other (BiPAP mask in place) Neck: Normal Inspection, Supple Respiratory: No Respiratory Distress, Decreased Breath Sounds Cardiovascular: Regular Rate, Rhythm, No Murmur Gastrointestinal: Normal Bowel Sounds, Soft Extremity: Normal Inspection, No Pedal Edema Neurologic/Psychiatric: Alert, Disoriented Skin: Normal Color, Warm/Dry Results Results/Procedures Labs Laboratory Tests 04/14/22 10:00 04/14/22 15:18 Patient resulted labs reviewed. Imaging: Reviewed Imaging Films, Reviewed Imaging Report Assessment/Plan Admission Diagnosis Acute on chronic respiratory failure with hypoxia and hypercapnia Admission Status: Inpatient Order (span 2 midnights) Reason for Inpatient Admission: Respiratory failure Assessment and Plan Acute on chronic respiratory failure with hypoxia and hypercapnia COPD with acute exacerbation ELAINE CXR with no acute abnromalities, stable cardiomegaly, possible right upper lobe consolidation present on imaging one month ago Not septic Normal procalcitonin TeleICU consulted Steroids MAT protocol Started on BiPAP May need to try to set up home BiPAP HTN HFpEF AFib Anxiety and depression Advanced dementia Glaucoma Continue home meds Critical Care Critically Ill Patient Diagnosis/Problems Diagnosis/Problems (1) Acute on chronic respiratory failure with hypoxia and hypercapnia (2) COPD exacerbation Status: Acute (3) ELAINE (acute kidney injury) Status: Acute (4) Chronic heart failure with preserved ejection fraction (HFpEF) Status: Chronic (5) Advanced dementia Status: Acute MARCO A CÁRDENAS MD Apr 14, 2022 16:48
[2022-04-14] MEDS: methylPREDNISolone 40 MG/ML (Solu-MEDROL) VIAL IV SCH (17:18)
[2022-04-14] MEDS: RT-ALBUTEROL/IPRATROPIUM 3 ML (DUONEB) VIAL INH SCH (20:49)
[2022-04-14] MEDS ORDERED: NON-FORMULARY MEDICATION 1 EA EA (Pravastatin Sodium 10 MG) PO SCH (21:00)
--- NOTE | 2022-04-14 22:08 | Tele-ICU Progress Note ---
Subjective Date Seen by a Provider: Apr 14, 2022 Time Seen by a Provider: 22:00 Subjective/Events-last exam (TeleICU, progress note) RN called to notify us patient 82 yo F with dementia, nonverbal at baseline showing signs of possible chest pain, rubbing chest. Dr. Calix ordered ECG and trop. ECG shows chronic afib. Trop negative Patient admitted earlier today for acute on chronic hypercapnic respiratory failure (see H&P consult) On BPAP, has DNR order in place. No intubation per RN. Most recent ABG was improved No new orders at this time from my stand point, likely not candidate for cardiac cath or intervention. Pain control, monitoring Goals of care and family counseling Assessment/Plan Assessment/Plan See above, see H&P Video assessment completed, remains on BPAP 14/6 30% with adequate oxygenation ECG Afib , rate controlled Trop negative Plans in collaboration with bedside consultants and Primary MD. RN to reach out if any questions or concerns SELENA CATES MD Apr 14, 2022 22:08
[2022-04-14] MEDS: DOCUSATE SODIUM 100 MG (COLACE) CAP PO SCH (22:19)
[2022-04-14] MEDS: AMITRIPTYLINE 25 MG (ELAVIL) TAB PO SCH (22:19)
[2022-04-14] MEDS: APIXABAN 5 MG (ELIQUIS) TABLET PO SCH (22:19)
[2022-04-14] MEDS: GABAPENTIN 300 MG (NEURONTIN) CAP PO SCH (22:20)
[2022-04-14] MEDS: AtorvaSTATin TABLET 10 MG TABLET PO SCH (22:20)
[2022-04-14] MEDS: rOPINIRole 1 MG (REQUIP) TABLET PO SCH (22:21)
[2022-04-14] MEDS: SENNOSIDES 8.6 MG (SENOKOT) TAB PO SCH (22:22)
[2022-04-14] MEDS: ALPRAZolam 0.25 MG (XANAX) TAB PO SCH (22:22)
[2022-04-14] MEDS: LATANOPROST 0.005% (XALATAN) OPHTH SOLN 2.5 ML OU SCH (22:43)
[2022-04-15] VITALS (27 sets, daily range): BP systolic 102–126; BP diastolic 48–72
[2022-04-15] MEDS: methylPREDNISolone 40 MG/ML (Solu-MEDROL) VIAL IV SCH ×4 (00:32→18:31)
[2022-04-15] MEDS: RT-ALBUTEROL/IPRATROPIUM 3 ML (DUONEB) VIAL INH SCH ×4 (02:41→20:22)
[2022-04-15 04:59] LABS: HEMATOCRIT 32 % (35-52); HEMOGLOBIN 9.8 g/dL (11.5-16.0); MEAN CORPUSCULAR HEMOGLOBIN 29 pg (25-34); MEAN CORPUSCULAR HGB CONC 31 g/dL (32-36); MEAN CORPUSCULAR VOLUME 93 fL (80-99); MEAN PLATELET VOLUME 11.6 fL (9.0-12.2); PLATELET COUNT 226 10^3/uL (130-400); WHITE BLOOD COUNT 5.1 10^3/uL (4.3-11.0)
[2022-04-15 05:21] LABS: CALCIUM 9.5 MG/DL (8.5-10.1); CREATININE SERUM 0.97 MG/DL (0.60-1.30); MAGNESIUM 2.1 MG/DL (1.6-2.4); POTASSIUM 4.1 MMOL/L (3.6-5.0)
[2022-04-15] MEDS: POTASSIUM CL 10MEQ/50ML IVPB 50 ML IV SCH (05:31)
[2022-04-15] MEDS: MAGNESIUM 1 GM/100 ML IVPB 100 ML IV SCH (05:31)
[2022-04-15] MEDS: KCL 20 MEQ TAB (K-DUR) PO SCH (05:31)
[2022-04-15] MEDS: RT--FLUTICASONE/SALMETEROL 232-14 (AIRDUO RespiCLICK) IH SCH ×2 (07:04→20:22)
[2022-04-15] MEDS: DexMEDEtomidine 250 ML DRIP 250 ML IV SCH (07:39)
[2022-04-15] MEDS: APIXABAN 5 MG (ELIQUIS) TABLET PO SCH ×2 (07:42→20:14)
[2022-04-15] MEDS: FUROSEMIDE 40 MG (LASIX) TAB PO SCH (07:42)
[2022-04-15] MEDS: DOCUSATE SODIUM 100 MG (COLACE) CAP PO SCH ×2 (07:43→20:14)
[2022-04-15] MEDS: GABAPENTIN 300 MG (NEURONTIN) CAP PO SCH ×3 (07:43→20:14)
[2022-04-15] MEDS: lisINopril 5 MG (PRINIVIL) TABLET PO SCH (07:43)
--- NOTE | 2022-04-15 08:35 | Tele-ICU Progress Note ---
Progress Note video rounds completed Patient is 82 y/o emale with hypercapnic resp failure and now DNR/DNI On nightly BIPAP PE: appears comfortable, sleeping VSS PLAN: continue supportive care and comfort care. ABGs improved Labs stable Focused Exam Lactate Level 04/14/22 10:00: Lactic Acid Level 0.72 Height, Weight, BMI Height: 5'4.00" Weight: 182lbs. 0.6oz. 77.037505rg; 27.18 BMI Method:Stated Laboratory Tests 04/14/22 10:00 04/14/22 15:18 04/15/22 04:25 Results Results/Procedures Labs Laboratory Tests 04/14/22 10:00 04/14/22 15:18 04/15/22 04:25 Patient resulted labs reviewed. Imaging: Reviewed Imaging Films, Reviewed Imaging Report Results Labs Labs Laboratory Tests 04/14/22 10:00: White Blood Count 11.9H, Red Blood Count 3.55L, Hemoglobin 10.4L, Hematocrit 34L , Mean Corpuscular Volume 96, Mean Corpuscular Hemoglobin 29, Mean Corpuscular Hemoglobin Concent 31L, Red Cell Distribution Width 14.6H, Platelet Count 272, Mean Platelet Volume 11.5, Immature Granulocyte % (Auto) 0, Neutrophils (%) (Auto) 85H, Lymphocytes (%) (Auto) 5L, Monocytes (%) (Auto) 5, Eosinophils (%) (Auto) 4, Basophils (%) (Auto) 0, Neutrophils # (Auto) 10.1H, Lymphocytes # (Auto) 0.6L, Monocytes # (Auto) 0.6, Eosinophils # (Auto) 0.5H, Basophils # (Auto) 0.1, Immature Granulocyte # (Auto) 0.0, Neutrophils % (Manual) 79, Lymphocytes % (Manual) 11, Monocytes % (Manual) 3, Eosinophils % (Manual) 3, Basophils % (Manual) 0, Band Neutrophils 4, Anisocytosis SLIGHT, Elliptocytes SL IGHT, Prothrombin Time 19.3H, INR Comment 1.6H, Activated Partial Thromboplast Time 36H, Sodium Level 143, Potassium Level 5.7H, Chloride Level 104, Carbon Dioxide Level 25, Anion Gap 14, Blood Urea Nitrogen 26H, Creatinine 1.19, Estimat Glomerular Filtration Rate 46, BUN/Creatinine Ratio 22, Glucose Level 115H, Lactic Acid Level 0.72, Calcium Level 9.4, Corrected Calcium 9.6, Magnesium Level 2.2, Total Bilirubin 1.2H, Aspartate Amino Transf (AST/SGOT) 24, Alanine Aminotransferase (ALT/SGPT) 12, Alkaline Phosphatase 114, Troponin I < 0.028, C-Reactive Protein High Sensitivity 1.77H, B-Type Natriuretic Peptide 802.4H, Total Protein 7.1, Albumin 3.8, Procalcitonin 0.06 04/14/22 10:04: Influenza Type A (RT-PCR) Not Detected, Influenza Type B (RT-PCR) Not Detected, SARS-CoV-2 RNA (RT-PCR) Not Detected 04/14/22 10:15: Blood Gas Puncture Site LT RAD, Blood Gas Patient Temperature 37.1, Arterial Blood pH 7.28*L, Arterial Blood Partial Pressure CO2 70H, Arterial Blood Partial Pressure O2 157H, Arterial Blood HCO3 32H, Arterial Blood Total CO2 34.0H, Arterial Blood Oxygen Saturation 100, Arterial Blood Base Excess 5.5H, Goran Test NA, Blood Gas Ventilator Setting NO, Blood Gas Inspired Oxygen 50% 04/14/22 10:46: Urine Color YELLOW, Urine Clarity CLEAR, Urine pH 5.0, Urine Specific [place] 1.020, Urine Protein NEGATIVE, Urine Glucose (UA) NEGATIVE, Urine Ketones NEGATIVE, Urine Nitrite NEGATIVE, Urine Bilirubin NEGATIVE, Urine Urobilinogen 0.2, Urine Leukocyte Esterase 1+H, Urine RBC (Auto) TRACE-IH, Urine RBC RARE, Urine WBC 2-5, Urine Squamous Epithelial Cells RARE, Urine Crystals NONE, Urine Bacteria TRACE, Urine Casts PRESENT, Urine Hyaline Casts 2-5H, Urine Mucus NEGATIVE, Urine Culture Indicated CULTURE PENDING 04/14/22 14:55: Blood Gas Puncture Site RT RAD, Blood Gas Patient Temperature 35.8, Arterial Blood pH 7.39, Arterial Blood Partial Pressure CO2 51H, Arterial Blood Partial Pressure O2 90, Arterial Blood HCO3 31H, Arterial Blood Total CO2 32.3H, Arterial Blood Oxygen Saturation 98, Arterial Blood Base Excess 5.5H, Goran Test YES-POS, Blood Gas Ventilator Setting NO, Blood Gas Inspired Oxygen 35% 04/14/22 15:18: Sodium Level 144, Potassium Level 4.6, Chloride Level 104, Carbon Dioxide Level 26, Anion Gap 14, Blood Urea Nitrogen 26H, Creatinine 1.00, Estimat Glomerular Filtration Rate 57, BUN/Creatinine Ratio 26, Glucose Level 115H, Calcium Level 9.5 04/14/22 19:26: Glucometer 138H 04/14/22 20:03: Troponin I < 0.028 04/15/22 04:25: White Blood Count 5.1, Red Blood Count 3.43L, Hemoglobin 9.8L, Hematocrit 32L, Mean Corpuscular Volume 93, Mean Corpuscular Hemoglobin 29, Mean Corpuscular Hemoglobin Concent 31L, Red Cell Distribution Width 14.6H, Platelet Count 226, Mean Platelet Volume 11.6, Sodium Level 146H, Potassium Level 4.1, Chloride Level 106, Carbon Dioxide Level 24, Anion Gap 16H, Blood Urea Nitrogen 31H, Creatinine 0.97, Estimat Glomerular Filtration Rate 59, BUN/Creatinine Ratio 32, Glucose Level 130H, Calcium Level 9.5, Magnesium Level 2.1 PAYTON GRANT MD Apr 15, 2022 08:35
[2022-04-15] MEDS: amLODIPine 5 MG (NORVASC) TAB PO SCH (08:47)
[2022-04-15] MEDS ORDERED: FLUTICASONE/VILANTEROL 200 MCG 14'S (BREO) IH SCH (09:00)
[2022-04-15] MEDS: SENNOSIDES 8.6 MG (SENOKOT) TAB PO SCH ×2 (09:00→20:14)
--- NOTE | 2022-04-15 09:22 | Physical Therapy Progress Note ---
Therapy Progress Note Pt sedated currently, as she has been very confused and anxious all morning. Per RN will hold PT this date, will follow up on Sunday to begin PT evaluation. MARK CUELLO PT Apr 15, 2022 09:22
[2022-04-15] MEDS: ACETAMINOPHEN 325 MG TABLET PO PRN ×2 (09:40→16:04)
[2022-04-15] MEDS: HYDROcodone/APAP 5 MG/325 MG (LORTAB) TAB PO PRN (11:01)
[2022-04-15] MEDS: SPIRONOLACTONE 25 MG (ALDACTONE) TAB PO SCH (11:04)
--- NOTE | 2022-04-15 15:12 | Progress Note - Hospitalist ---
Subjective HPI/CC On Admission Date Seen by Provider: Apr 15, 2022 Time Seen by Provider: 09:40 Citlaly Salazar is an 82 year old female with PMH HTN, HLD, AFib, CVA, COPD, HFpEF, advanced dementia, who presented with shortness of breath. She is a poor historian and unable to provide any history. She reportedly came from home by EMS. She was found to have a COPD exacerbation and was started on steroids and BiPAP. Subjective/Events-last exam She is awake. She is confused. She denies pain. She appears scared and anxious. Focused Exam Lactate Level 04/14/22 10:00: Lactic Acid Level 0.72 Objective Exam Vital Signs Vital Signs Date Time Temp Pulse Resp B/P (MAP) Pulse Ox O2 Delivery O2 Flow Rate FiO2 04/15/22 14:37 98 Nasal Cannula 3.00 04/15/22 14:00 60 17 106/56 (73) 04/15/22 10:10 36.5 04/15/22 07:06 30 Capillary Refill : Less Than 3 Seconds General Appearance: No Apparent Distress, Chronically ill Respiratory: Lungs Clear, No Respiratory Distress Cardiovascular: Regular Rate, Rhythm, No Murmur Gastrointestinal: Normal Bowel Sounds, Soft Extremity: Normal Inspection, No Pedal Edema Neurologic/Psychiatric: Alert, Disoriented Skin: Normal Color, Warm/Dry Results/Procedures Lab Laboratory Tests 04/14/22 15:18 04/15/22 04:25 Patient resulted labs reviewed. Imaging: Reviewed Imaging Films, Reviewed Imaging Report Assessment/Plan Assessment and Plan Assess & Plan/Chief Complaint Acute on chronic respiratory failure with hypoxia and hypercapnia COPD with acute exacerbation ELAINE CXR with no acute abnromalities, stable cardiomegaly, possible right upper lobe consolidation present on imaging one month ago TeleICU following Steroids MAT protocol BiPAP at night May need to try to set up home BiPAP vs home hospice HTN HFpEF AFib Anxiety and depression Advanced dementia Glaucoma Continue home meds Critical Care Critically Ill Patient Diagnosis/Problems Diagnosis/Problems (1) Acute on chronic respiratory failure with hypoxia and hypercapnia (2) COPD exacerbation Status: Acute (3) ELAINE (acute kidney injury) Status: Acute (4) Chronic heart failure with preserved ejection fraction (HFpEF) Status: Chronic (5) Advanced dementia Status: Acute MARCO A CÁRDENAS MD Apr 15, 2022 15:12
[2022-04-15] MEDS ORDERED: ACETAMINOPHEN 325 MG TABLET PO PRN (16:30)
[2022-04-15] MEDS: ALPRAZolam 0.25 MG (XANAX) TAB PO SCH (20:13)
[2022-04-15] MEDS: AtorvaSTATin TABLET 10 MG TABLET PO SCH (20:14)
[2022-04-15] MEDS: AMITRIPTYLINE 25 MG (ELAVIL) TAB PO SCH (20:14)
[2022-04-15] MEDS: LATANOPROST 0.005% (XALATAN) OPHTH SOLN 2.5 ML OU SCH (20:14)
[2022-04-15] MEDS: rOPINIRole 1 MG (REQUIP) TABLET PO SCH (20:14)
[2022-04-16] VITALS (25 sets, daily range): BP systolic 96–137; BP diastolic 51–73
[2022-04-16] MEDS: methylPREDNISolone 40 MG/ML (Solu-MEDROL) VIAL IV SCH ×2 (00:26→05:37)
[2022-04-16] MEDS: DexMEDEtomidine 250 ML DRIP 250 ML IV SCH ×2 (00:27→22:22)
[2022-04-16] MEDS: RT-ALBUTEROL/IPRATROPIUM 3 ML (DUONEB) VIAL INH SCH ×4 (02:54→21:56)
[2022-04-16 04:28] LABS: HEMATOCRIT 30 % (35-52); HEMOGLOBIN 9.6 g/dL (11.5-16.0); MEAN CORPUSCULAR HEMOGLOBIN 29 pg (25-34); MEAN CORPUSCULAR HGB CONC 32 g/dL (32-36); MEAN CORPUSCULAR VOLUME 92 fL (80-99); MEAN PLATELET VOLUME 11.6 fL (9.0-12.2); PLATELET COUNT 208 10^3/uL (130-400); WHITE BLOOD COUNT 5.4 10^3/uL (4.3-11.0)
[2022-04-16 04:54] LABS: CALCIUM 9.3 MG/DL (8.5-10.1); CREATININE SERUM 0.98 MG/DL (0.60-1.30); MAGNESIUM 2.5 MG/DL (1.6-2.4); POTASSIUM 3.9 MMOL/L (3.6-5.0)
[2022-04-16] MEDS: POTASSIUM CL 10MEQ/50ML IVPB 50 ML IV SCH (05:06)
[2022-04-16] MEDS: MAGNESIUM 1 GM/100 ML IVPB 100 ML IV SCH (05:07)
[2022-04-16] MEDS: KCL 20 MEQ TAB (K-DUR) PO SCH (05:07)
[2022-04-16] MEDS: SENNOSIDES 8.6 MG (SENOKOT) TAB PO SCH ×2 (09:10→20:30)
[2022-04-16] MEDS: FUROSEMIDE 40 MG (LASIX) TAB PO SCH (09:10)
[2022-04-16] MEDS: DOCUSATE SODIUM 100 MG (COLACE) CAP PO SCH ×2 (09:10→20:30)
[2022-04-16] MEDS: GABAPENTIN 300 MG (NEURONTIN) CAP PO SCH ×3 (09:10→20:30)
[2022-04-16] MEDS: APIXABAN 5 MG (ELIQUIS) TABLET PO SCH ×2 (09:10→20:30)
[2022-04-16] MEDS: amLODIPine 5 MG (NORVASC) TAB PO SCH (09:10)
[2022-04-16] MEDS: lisINopril 5 MG (PRINIVIL) TABLET PO SCH (09:11)
[2022-04-16] MEDS: SPIRONOLACTONE 25 MG (ALDACTONE) TAB PO SCH (09:11)
[2022-04-16] MEDS: RT--FLUTICASONE/SALMETEROL 232-14 (AIRDUO RespiCLICK) IH SCH ×2 (09:25→21:55)
--- NOTE | 2022-04-16 09:28 | Tele-ICU Progress Note ---
Subjective Date Seen by a Provider: Apr 16, 2022 Time Seen by a Provider: 07:30 Subjective/Events-last exam This virtual visit was conducted using real time audio/video. Thank you for asking us to see this patient for respiratory insufficiency due to AECOPD. Recent events: O2 decreased to 3 LPM PE: VSS. O2 sat 100% on 4 LPM. HEENT: No obvious masses, adenopathy or JVD. Chest: clear to auscultation. Diminished CV: Irreg S1 S2 No murmur or added sounds. Abd: Non-tender. Bowel sounds Y. : Unremarkable. Chavis N. SIZING MACHINE OPERATOR/psychiatric: Grossly intact. No obvious focal findings. Extremities: No edema. Capillary refill < 3 seconds. Skin: unremarkable. Results: Elevated Na 147, BUN 40. Decreased Hb 9.6. CXR: Hyperinflated, pacemaker present. Available chart/ vitals / labs / images reviewed. Video assessment done using teleICU camera, rest of exam as per RN. A/P: Respiratory insufficiency/COPD: Continue present management with Airduo, O2, Duonebs, Medrol, Prec. Monitor for increasing oxygenation needs and/or need for intubation. Consider hospice/palliative care evaluation. Critical Care: critically ill patient. Cont. prozac, norv., eliq., coreg, gabap., aldact., lisinopril, requip. Consider holding Lasix. Discussed with MARCELINA Davis. Asked RN to reach out to eICU if any questions or c oncerns later. Time spent with patient/coordination of care with other health professionals (mins): Sepsis Event Evaluation Height, Weight, BMI Height: 5'4.00" Weight: 182lbs. 0.6oz. 77.462975kf; 27.18 BMI Method:Stated Focused Exam Lactate Level 04/14/22 10:00: Lactic Acid Level 0.72 Exam Exam Patient acknowledged, consented, and participated in this virtual visit which was conducted using real time audio/video Vital Signs Date Time Temp Pulse Resp B/P (MAP) Pulse Ox O2 Delivery O2 Flow Rate FiO2 04/16/22 08:00 60 20 137/68 (91) 100 NIV Bilevel 28.00 04/16/22 08:00 100 Nasal Cannula 3.00 04/16/22 07:25 36.7 59 22 122/64 (83) 99 NIV Bilevel 28.00 04/16/22 07:00 60 04/16/22 06:00 60 21 125/65 (85) 99 NIV Bilevel 28.00 04/16/22 05:00 60 12 127/69 (88) 100 NIV Bilevel 28.00 04/16/22 04:40 99 NIV Bilevel 30 04/16/22 04:27 60 117/64 04/16/22 04:00 36.4 04/16/22 04:00 60 20 116/59 (78) 99 NIV Bilevel 28.00 04/16/22 03:00 60 18 123/61 (81) 99 NIV Bilevel 28.00 04/16/22 02:54 60 21 100 28.00 04/16/22 02:00 60 23 113/61 (78) 99 NIV Bilevel 30.00 04/16/22 01:00 60 04/16/22 01:00 60 21 125/67 (86) 99 NIV Bilevel 30.00 04/16/22 00:34 36.0 04/16/22 00:27 60 04/16/22 00:22 99 NIV Bilevel 30 04/16/22 00:00 60 23 123/65 (84) 99 Nasal Cannula 30.00 04/15/22 23:10 60 23 99 30.00 04/15/22 23:00 60 23 119/65 (83) 100 NIV Bilevel 30.00 04/15/22 22:00 59 23 117/57 (77) 99 NIV Bilevel 30.00 04/15/22 21:00 59 25 115/60 (78) 100 NIV Bilevel 30.00 04/15/22 20:23 Nasal Cannula 3.00 04/15/22 20:22 98 Nasal Cannula 3.00 04/15/22 20:00 60 12 119/61 (80) 100 Nasal Cannula 3.00 04/15/22 20:00 99 Nasal Cannula 3.00 04/15/22 19:00 60 04/15/22 19:00 60 24 123/62 (82) 100 Nasal Cannula 3.00 04/15/22 18:00 60 15 125/65 (85) 100 Nasal Cannula 4.00 04/15/22 17:00 60 25 102/53 (69) 95 Nasal Cannula 4.00 04/15/22 16:11 95 Nasal Cannula 3.00 04/15/22 16:00 60 12 118/62 (80) 97 Nasal Cannula 4.00 04/15/22 15:00 60 17 116/61 (79) 98 Nasal Cannula 4.00 04/15/22 14:37 98 Nasal Cannula 3.00 04/15/22 14:00 60 17 106/56 (73) 93 Nasal Cannula 4.00 04/15/22 13:00 64 11 118/61 (80) 96 Nasal Cannula 4.00 04/15/22 12:48 60 04/15/22 12:38 95 Nasal Cannula 3.00 04/15/22 12:00 60 27 106/52 (70) 97 Nasal Cannula 4.00 04/15/22 11:39 60 106/52 04/15/22 11:00 60 18 120/58 (78) 96 Nasal Cannula 4.00 04/15/22 10:10 36.5 04/15/22 10:00 60 30 109/48 (68) 93 Nasal Cannula 4.00 04/15/22 09:40 37.9 I & O 04/16/22 07:00 Intake Total 600 ml Output Total 1630 ml Balance -1030 ml Height & Weight Height: 5'4.00" Weight: 182lbs. 0.6oz. 77.887909rl; 27.18 BMI Method:Stated General Appearance: No Apparent Distress, Chronically ill HEENT: PERRL/EOMI, Normal ENT Inspection Neck: Normal Inspection; No JVD Respiratory: Lungs Clear, No Respiratory Distress Cardiovascular: Regular Rate, Rhythm, No Murmur Capillary Refill: Less Than 3 Seconds Extremity: Normal Inspection, No Pedal Edema Neurologic/Psychiatric: Alert, Disoriented Skin: Normal Color, Warm/Dry Results Lab Laboratory Tests 04/14/22 10:00 04/14/22 15:18 04/15/22 04:25 04/16/22 03:47 Assessment/Plan Assessment/Plan See free text. Critical Care: Critically Ill Patient SHAQ RICHARD MD Apr 16, 2022 09:28
--- NOTE | 2022-04-16 17:57 | Progress Note - Hospitalist ---
Subjective HPI/CC On Admission Date Seen by Provider: Apr 16, 2022 Time Seen by Provider: 10:25 Citlaly Salazar is an 82 year old female with PMH HTN, HLD, AFib, CVA, COPD, HFpEF, advanced dementia, who presented with shortness of breath. She is a poor historian and unable to provide any history. She reportedly came from home by EMS. She was found to have a COPD exacerbation and was started on steroids and BiPAP. Subjective/Events-last exam She is sedated. She appears comfortable. There is no family at the bedside. Focused Exam Lactate Level 04/14/22 10:00: Lactic Acid Level 0.72 Objective Exam Vital Signs Vital Signs Date Time Temp Pulse Resp B/P (MAP) Pulse Ox O2 Delivery O2 Flow Rate FiO2 04/16/22 17:00 60 14 101/55 (70) 99 Nasal Cannula 2.00 04/16/22 11:37 36.0 04/16/22 04:40 30 Capillary Refill : Less Than 3 Seconds General Appearance: No Apparent Distress, Chronically ill Respiratory: No Respiratory Distress, Decreased Breath Sounds Cardiovascular: Regular Rate, Rhythm, No Murmur Gastrointestinal: Normal Bowel Sounds, Soft Extremity: Normal Inspection, No Pedal Edema Neurologic/Psychiatric: Other (sedated) Skin: Normal Color, Warm/Dry Results/Procedures Lab Laboratory Tests 04/16/22 03:47 Patient resulted labs reviewed. Imaging: Reviewed Imaging Films, Reviewed Imaging Report Assessment/Plan Assessment and Plan Assess & Plan/Chief Complaint Acute on chronic respiratory failure with hypoxia and hypercapnia COPD with acute exacerbation CXR with no acute abnromalities, stable cardiomegaly, possible right upper lobe consolidation present on imaging one month ago TeleICU following Steroids, weaning MAT protocol BiPAP at night May need to try to set up home BiPAP vs home hospice HTN HFpEF AFib Anxiety and depression Advanced dementia Glaucoma Continue home meds ELAINE, resolved Diagnosis/Problems Diagnosis/Problems (1) Acute on chronic respiratory failure with hypoxia and hypercapnia (2) COPD exacerbation Status: Acute (3) ELAINE (acute kidney injury) Status: Acute (4) Chronic heart failure with preserved ejection fraction (HFpEF) Status: Chronic (5) Advanced dementia Status: Acute MARCO A CÁRDENAS MD Apr 16, 2022 17:57
[2022-04-16] MEDS: ALPRAZolam 0.25 MG (XANAX) TAB PO SCH (20:30)
[2022-04-16] MEDS: rOPINIRole 1 MG (REQUIP) TABLET PO SCH (20:30)
[2022-04-16] MEDS: AtorvaSTATin TABLET 10 MG TABLET PO SCH (20:30)
[2022-04-16] MEDS: AMITRIPTYLINE 25 MG (ELAVIL) TAB PO SCH (20:30)
[2022-04-16] MEDS: LATANOPROST 0.005% (XALATAN) OPHTH SOLN 2.5 ML OU SCH (20:31)
[2022-04-16] MEDS ORDERED: methylPREDNISolone 40 MG/ML (Solu-MEDROL) VIAL IV SCH (21:00)
[2022-04-17] VITALS (25 sets, daily range): BP systolic 83–144; BP diastolic 45–73
[2022-04-17] MEDS: RT-ALBUTEROL/IPRATROPIUM 3 ML (DUONEB) VIAL INH SCH ×4 (02:48→21:35)
[2022-04-17 04:20] LABS: HEMATOCRIT 31 % (35-52); HEMOGLOBIN 9.9 g/dL (11.5-16.0); MEAN CORPUSCULAR HEMOGLOBIN 29 pg (25-34); MEAN CORPUSCULAR HGB CONC 32 g/dL (32-36); MEAN CORPUSCULAR VOLUME 92 fL (80-99); MEAN PLATELET VOLUME 11.8 fL (9.0-12.2); PLATELET COUNT 229 10^3/uL (130-400); WHITE BLOOD COUNT 8.4 10^3/uL (4.3-11.0)
[2022-04-17 04:33] LABS: POTASSIUM 3.5 MMOL/L (3.6-5.0)
[2022-04-17 04:34] LABS: CALCIUM 9.2 MG/DL (8.5-10.1)
[2022-04-17 04:39] LABS: CREATININE SERUM 0.92 MG/DL (0.60-1.30)
[2022-04-17 04:41] LABS: MAGNESIUM 2.1 MG/DL (1.6-2.4)
[2022-04-17] MEDS: MAGNESIUM 1 GM/100 ML IVPB 100 ML IV SCH (05:21)
[2022-04-17] MEDS: KCL 20 MEQ TAB (K-DUR) PO SCH (05:21)
[2022-04-17] MEDS: POTASSIUM CL 10MEQ/50ML IVPB 50 ML IV SCH ×2 (05:21→05:29)
--- NOTE | 2022-04-17 08:14 | Progress Note - Hospitalist ---
Subjective HPI/CC On Admission Date Seen by Provider: Apr 17, 2022 Citlaly Salazar is an 82 year old female with PMH HTN, HLD, AFib, CVA, COPD, HFpEF, advanced dementia, who presented with shortness of breath. She is a poor historian and unable to provide any history. She reportedly came from home by EMS. She was found to have a COPD exacerbation and was started on steroids and BiPAP. Subjective/Events-last exam Pt having monet care done when I entered room. Does not really participate in exam or conversation. She did ask for pancakes once cleaned up but otherwise could not provide any ROS. RN at bedside and reports slight increase in precedex need overnight. Focused Exam Lactate Level 04/14/22 10:00: Lactic Acid Level 0.72 Objective Exam Vital Signs Vital Signs Date Time Temp Pulse Resp B/P (MAP) Pulse Ox O2 Delivery O2 Flow Rate FiO2 04/17/22 07:52 98 Nasal Cannula 2.00 04/17/22 07:00 61 20 144/72 (96) 04/17/22 04:00 36.3 04/16/22 04:40 30 Capillary Refill : Less Than 3 Seconds General Appearance: No Apparent Distress, Chronically ill Respiratory: Lungs Clear, No Respiratory Distress Cardiovascular: Regular Rate, Rhythm, No Murmur Gastrointestinal: Non Tender, Soft Neurologic/Psychiatric: Alert, Other (did not answer any questions or speak otherwise than saying "pancakes" when asked what sounded good for breakfast) Results/Procedures Lab Laboratory Tests 04/17/22 03:28 Patient resulted labs reviewed. Imaging: Reviewed Imaging Films, Reviewed Imaging Report Assessment/Plan Assessment and Plan Assess & Plan/Chief Complaint Acute on chronic respiratory failure with hypoxia and hypercapnia COPD with acute exacerbation CXR with no acute abnormalities, stable cardiomegaly, possible right upper lobe consolidation present on imaging one month ago TeleICU following Steroids, weaning- switch to oral MAT protocol Did well off BiPAP last night Son considering NH placement per RN HTN HFpEF AFib Anxiety and depression Advanced dementia Glaucoma Continue home meds ELAINE, ABRAHAM Feliciano MD Apr 17, 2022 08:14
[2022-04-17] MEDS ORDERED: predniSONE 20 MG TAB PO ONE (08:30)
[2022-04-17] MEDS: APIXABAN 5 MG (ELIQUIS) TABLET PO SCH ×2 (08:33→20:10)
[2022-04-17] MEDS: lisINopril 5 MG (PRINIVIL) TABLET PO SCH (08:34)
[2022-04-17] MEDS: FUROSEMIDE 40 MG (LASIX) TAB PO SCH (08:35)
[2022-04-17] MEDS: GABAPENTIN 300 MG (NEURONTIN) CAP PO SCH ×3 (08:36→20:10)
[2022-04-17] MEDS: SENNOSIDES 8.6 MG (SENOKOT) TAB PO SCH ×2 (08:36→20:09)
[2022-04-17] MEDS: amLODIPine 5 MG (NORVASC) TAB PO SCH (08:36)
[2022-04-17] MEDS: SPIRONOLACTONE 25 MG (ALDACTONE) TAB PO SCH (08:37)
[2022-04-17] MEDS: DOCUSATE SODIUM 100 MG (COLACE) CAP PO SCH ×2 (08:37→20:10)
--- NOTE | 2022-04-17 10:10 | Physical Therapy Evaluation ---
PT Evaluation-General Medical Diagnosis Admission Date Apr 14, 2022 at 11:45 Medical Diagnosis: respiratory failure with hypoxia Onset Date: Apr 14, 2022 Therapy Diagnosis Therapy Diagnosis: generalized weakness/debility Height/Weight Height (Feet): 5 Height (Inches): 4.00 Weight (Pounds): 182 Weight (Ounces): 0.6 Precautions Precautions/Isolations: Fall Prevention, Standard Precautions Weight Bear Status Right Lower Extremity: Right Weight Bearing/Tolerated Left Lower Extremity: Left Weight Bearing/Tolerated Referral Physician: Fifi Reason for Referral: Evaluation/Treatment Medical History Pertinent Medical History: Atrial Fib, Arthritis, COPD, CVA, Dementia, GERD, HTN Current History EMS secondary to respiratory distress with hypoxia 70% Reviewed History: Yes Social History Home: Apartment Prior Prior Level of Function SCALE: Activities may be completed with or without assistive devices. 2-Oufkkqivmd-xvdtpqz completes the activity by him/herself with no assistance from a helper. 5-Set-up or Clean-up Assistance-helper sets up or cleans up; patient completes activity. Deridder assists only prior to or following the activity. 4-Supervision or Touching Assistance-helper provides verbal cues and/or touching/steadying and/or contact guard assistance as patient completes activity. Assistance may be provided throughout the activity or intermittently. 3-Partial/Moderate Assistance-helper does LESS THAN HALF the effort. Deridder lifts, holds or supports trunk or limbs, but provides less than half the effort. 2-Substantial/Maximal Assistance-helper does MORE THAN HALF the effort. Deridder lifts or holds trunk or limbs and provides more than half the effort. 7-Hxrtdxrkx-ocakga does ALL the effort. Patient does none of the effort to complete the activity. Or, the assistance of 2 or more helpers is required for the patient to complete the activity. If activity was not attempted, code reason: 7-Patient Refused. 9-Not Applicable-not attempted and the patient did not perform the activity before the current illness, exacerbation or injury. 10-Not Attempted due to Environmental Limitations-(lack of equipment, weather restraints, etc.). 88-Not Attempted due to Medical Conditions or Safety Concerns. Bed Mobility: 6 Transfers (B,C,W/C): 6 Gait: 6 Indoor Mobility (Ambulation): Independent PT Evaluation-Current Subjective Patient is very confused, emotional and unable to follow simple direction. Objective Patient Orientation: Confused Attachments: Oxygen, Chavis Catheter ROM/Strength ROM Lower Extremities bilateral LE WFL (patient does yell in pain with all PROM) Strength Lower Extremities 2-/5 grossly bilateral LE Integumentary/Posture Bowel Incontinence: Yes Bladder Incontinence: Chavis Cath Neuromuscular (Tone, Coordination, Reflexes) severely diminished coordination Sensory Vision: Unable to Assess Hearing: Functional Transfers Roll Left to Right (QC): 1 Sit to Lying (QC): 88 Lying to Sitting/Side of Bed(Q: 88 Sit to Stand (QC): 88 Chair/Kqm-iz-Qmckb Xfer(QC): 88 Gait Does the Patient Walk?: No and Walking Goal IS indicated Assessment/Needs Patient is severely debilitated and unable to safely perform EOB or OOB activity at this time. PT to address functional strength and mobility. Rehab Potential: Guarded PT Nursing Home Goals Nursing Home Goals PT Instrument/Control Technician Goals Time Frame: May 06, 2022 Roll Left & Right (QC): 3 Sit to Lying (QC): 3 Lying-Sitting on Side/Bed(QC): 3 Sit to Stand (QC): 3 Chair/Qyc-zm-Krhgi Xfer(QC): 3 Does the Patient Walk: No and Walking Goal IS indicated Walk 10 feet (QC): 3 PT Plan Problem List Problem List: Activity Tolerance, Functional Strength, Safety, Balance, Gait, Transfer, Bed Mobility, ROM Treatment/Plan Treatment Plan: Continue Plan of Care Treatment Plan: Bed Mobility, Education, Functional Activity Katherine, Functional Strength, Gait, Safety, Therapeutic Exercise, Transfers Treatment Duration: May 06, 2022 Frequency: 5 times per week Estimated Hrs Per Day: .25 hour per day Time/GCodes Time In: 740 Time Out: 758 Total Billed Treatment Time: 18 Total Billed Treatment 1 visit EVMod 18 min CHRISTI BOYLE PT Apr 17, 2022 10:10
[2022-04-17] MEDS: RT--FLUTICASONE/SALMETEROL 232-14 (AIRDUO RespiCLICK) IH SCH ×2 (10:49→21:36)
--- NOTE | 2022-04-17 11:47 | Tele-ICU Progress Note ---
Subjective Date Seen by a Provider: Apr 17, 2022 Time Seen by a Provider: 11:46 Subjective/Events-last exam (Tele-ICU Physician , Progress Note ) Available chart/ vitals / labs / Images reviewed Video assessment done using teleICU camera, rest of exam as per RN Discussed with RN Events overnight : on precedex Afebrile hemodynamically stable Respiratory - 2l I/O = even Drips: Pressors- no Consultants: Hospital course: recent admission for respiratory failure and was discharged 2 weeks ago. 04/14- ARF - BIPap A/P Acute (on chronic ) resp failure, hypercarbic and hypoxic -presumed CHF/ AECOPD - NEG flu and covid - ON 2L NC NOW _ BIPAP at night only - steroid diuresis Delirium / owning at night - onb presedex gtt - to wean - consider seroquil qHS - as per PCP RUL , RLL opacification on cxr - not new , no significant change with 2 weeks ago - just finished course of ABX , her currewnt temperature, CRP, WBC, and procalcitonin are not suggestive of a new bacterial infection - OFF ABX now COPD exacerbation - IV steroids changed to PO - to wean severe aortic stenosis - monitor , as per cads -not a candidate for any intervvention Acute on chronic heart failure with preserved ejection fraction (HFpEF) - as per PCP needs for diuresis carefully Permanent atrial fibrillation - rate controlled - 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 Discussed with RN to reach out if any questions or concerns A total of 25 minutes of critical care time was devoted to this patient today, required to treat and/or prevent further deterioration of critical care condition ( as above ) . Sepsis Event Evaluation Height, Weight, BMI Height: 5'4.00" Weight: 182lbs. 0.6oz. 77.956309rq; 27.18 BMI Method:Stated Exam Exam Patient acknowledged, consented, and participated in this virtual visit which was conducted using real time audio/video Vital Signs Date Time Temp Pulse Resp B/P (MAP) Pulse Ox O2 Delivery O2 Flow Rate FiO2 04/17/22 11:00 60 24 102/59 (73) 99 Nasal Cannula 2.00 04/17/22 10:30 60 21 98/60 (73) 97 Nasal Cannula 2.00 04/17/22 10:00 60 21 83/45 (58) 97 Nasal Cannula 2.00 04/17/22 09:00 68 10 110/58 (75) 98 Nasal Cannula 2.00 04/17/22 08:00 61 19 123/64 (83) 97 Nasal Cannula 2.00 04/17/22 08:00 36.4 04/17/22 07:52 98 Nasal Cannula 2.00 04/17/22 07:00 61 20 144/72 (96) 98 Nasal Cannula 2.00 04/17/22 07:00 61 04/17/22 06:00 60 14 137/70 (92) 99 Nasal Cannula 2.00 04/17/22 05:00 60 24 120/66 (84) 98 Nasal Cannula 2.00 04/17/22 04:00 60 16 115/59 (77) 99 Nasal Cannula 2.00 04/17/22 04:00 36.3 04/17/22 03:53 99 Nasal Cannula 2.00 04/17/22 03:00 60 20 123/61 (81) 99 Nasal Cannula 2.00 04/17/22 02:49 97 Nasal Cannula 2.00 04/17/22 02:22 60 122/62 04/17/22 02:00 60 17 122/62 (82) 95 Nasal Cannula 2.00 04/17/22 01:00 60 25 115/59 (77) 99 Nasal Cannula 2.00 04/17/22 01:00 60 04/17/22 00:18 99 Nasal Cannula 2.00 04/17/22 00:00 60 26 109/52 (71) 98 Nasal Cannula 2.00 04/16/22 23:45 37.0 04/16/22 23:00 60 18 122/73 (89) 95 Nasal Cannula 2.00 04/16/22 22:22 60 114/60 04/16/22 22:00 60 16 114/60 (78) 96 Nasal Cannula 2.00 04/16/22 21:56 60 20 96 24.00 04/16/22 21:56 Nasal Cannula 04/16/22 21:00 64 20 103/57 (72) 95 Nasal Cannula 2.00 04/16/22 20:00 99 Nasal Cannula 2.00 04/16/22 20:00 66 22 113/62 (79) 98 Nasal Cannula 2.00 04/16/22 19:00 60 04/16/22 19:00 61 13 108/56 (73) 99 Nasal Cannula 2.00 04/16/22 18:00 60 21 115/64 (81) 100 Nasal Cannula 2.00 04/16/22 17:00 60 14 101/55 (70) 99 Nasal Cannula 2.00 04/16/22 16:11 99 Nasal Cannula 2.00 04/16/22 16:00 60 10 96/59 (71) 100 Nasal Cannula 2.00 04/16/22 16:00 99 Nasal Cannula 2.00 04/16/22 15:00 60 15 104/57 (73) 99 Nasal Cannula 2.00 04/16/22 14:00 61 19 100/55 (70) 99 Nasal Cannula 2.00 04/16/22 13:00 60 12 115/64 (81) 99 Nasal Cannula 2.00 04/16/22 12:45 60 04/16/22 12:00 100 Nasal Cannula 2.00 I & O 04/17/22 07:00 Intake Total 1645 ml Output Total 1525 ml Balance 120 ml Height & Weight Height: 5'4.00" Weight: 182lbs. 0.6oz. 77.022387wq; 27.18 BMI Method:Stated General Appearance: No Apparent Distress, Chronically ill HEENT: PERRL/EOMI, Normal ENT Inspection Neck: Normal Inspection; No JVD Respiratory: Lungs Clear, No Respiratory Distress Cardiovascular: Regular Rate, Rhythm, No Murmur Capillary Refill: Less Than 3 Seconds Extremity: Normal Inspection, No Pedal Edema Neurologic/Psychiatric: Alert, Other (did not answer any questions or speak oth erwise than saying "pancakes" when asked what sounded good for breakfast) Skin: Normal Color, Warm/Dry Results Lab Laboratory Tests 04/16/22 03:47 04/17/22 03:28 Assessment/Plan Assessment/Plan ` EHSAN FULTON MD Apr 17, 2022 11:47
--- NOTE | 2022-04-17 12:15 | ST Dysphagia Evaluation ---
Speech Evaluation-General Medical Diagnosis Respiratory Failure with Hypoxia Onset Date: Apr 14, 2022 Therapy Diagnosis Therapy Diagnosis: Mild Oropharyngeal Dysphagia Precautions Precautions: Fall, Pressure Ulcer, Aspiration Precautions/Isolations: Aspiration, Fall Prevention, Standard Precautions, Pressure Ulcer Referral Referring Physician: Dr. Williamson Reason for Referral: Evaluation/Treatment Medical History Pertinent Medical History: Atrial Fib, Arthritis, COPD, CVA, Dementia, GERD, HTN Current History The patient is an 82 year old female with a past medical history of HTN, HLD, AFib, CVA, COPD, HFpEF, and advanced dementia, who presented with shortness of breath. 04/14/22: IMPRESSION: 1. Increased right upper lobe airspace opacity, may represent atelectasis or infiltrate. Stable right basilar airspace opacity. 2. Stable cardiomegaly.IMPRESSION: Reviewed History: Yes Speech PLF/Current-Dysphagia Prior Level of Function The patient is unable to provide the clinician with prior level of function (prior food/liquid consistency) information due to her current cognitive skills. Per chart review, the patient is consuming a regular consistency diet with thin liquids. Subjective The patient was lying in bed, sleeping upon entrance to her room by the clinician. With maximum verbal prompting, the patient was able to open her eyes and remain at an appropriate alertness level. The patient was positioned upright in bed for safe swallowing. Currently, the patient is receiving 2L supplemental oxygen via nasal cannula with SpO2% at 98%. Cognitive Status Patient Orientation: Confused Oral Motor Skills Dentition: Natural Current Food Consistancy: Regular, Thin Liquids Ability to Follow Directions: Fair Oral Expression Ability: Severe Impairment Voice Voice Phonatory-Based Quality: Weak Voice Pitch: Normal Voice Loudness: Moderately Soft/Quiet Face Facial Symmetry: Symmetrical (At rest.) The patient does not follow verbal commands consistently to complete a formal oral mechanism evaluation. Oral-Facial Assessment Oral-Facial Dentition: Normal Labial Seal Description: Weak Smile: Reduced ROM Volitional Dry Swallow: No Voluntary Cough: No Can Clear Throat Volitionally: No Dysphagia Evaluation Consistencies Presented: Regular, Thin Liquid (via teaspoon and straw.), [place] Thick Liquid (via teaspoon and straw.), Pureed The patient was able to appropriately draw material from the teaspoon and straw with adequate lip rounding. Slightly increased mastication time was present with solid consistencies, with the necessity of a thin liquid wash to clear material from the oral cavity. No anterior spillage or oral holding were demonstrated. Laryngeal elevation was present to palpation. The patient did not elicit multiple swallows. The patient was provided thin liquid via teaspoon and straw drink, four ounces of puree, teaspoons and straw drinks of nectar-thick liquid, and saltine crackers. Initially, the patient did not display s/s of suspected aspiration with teaspoons or straw drinks of thin liquid. Following four ounces of puree, thin liquids were re-attempted. At this time, the patient displayed a weak cough immediately following two swallows of thin liquid via straw. The clinician suspects the patient's pharyngeal swallow timing reduces with fatigue, allowing for poor airway protection. No s/s of suspected aspiration were demonstrated with teaspoons or straw drinks of nectar-thick liquid, puree, or solid consistencies. Dietary Recommendations: Mechanical Soft Liquid Recommendations: [place] Consistancy Recommendations: - Dysphagia three consistency diet with NECTAR-THICK (mildly thick) liquids, as tolerated. - Fully upright and alert for P.O. intake. - Small bites and sips, only. - Full feeding assistance and supervision. - Crush medication and place in puree for administration. - Monitor for s/s of suspected aspiration with P.O. intake. If demonstrated, contact speech pathology. The results and recommendations were shared with the patient and the patient's RN immediately following completion. Dysphagia Evaluation Summary The patient demonstrated mild oropharyngeal dysphagia characterized by prolonged mastication of solid consistencies and reduced airway protection during periods of fatigue. Speech-Plan Treatment Plan Speech Therapy Treatment Plan: Discontinue ST Treatment Duration: Apr 17, 2022 Frequency: 1 time per week Estimated Hrs Per Day: .5 hour per day Rehab Potential: Guarded Barriers to Learning: Cognition. Safety Risks/Education Teaching Recipient: Patient Teaching Methods: Discussion Response to Teaching: Unable to Comprehend Education Topics Provided: Results, Recommendations, Plan of Care Time Speech Therapy Time In: 10:30 Speech Therapy Time Out: 11:00 Total Billed Time: 30 Billed Treatment Time 1, JOSEPH DOBBS ELIZ[facility] ST Apr 17, 2022 12:15
[2022-04-17] MEDS: rOPINIRole 1 MG (REQUIP) TABLET PO SCH (20:10)
[2022-04-17] MEDS: AtorvaSTATin TABLET 10 MG TABLET PO SCH (20:10)
[2022-04-17] MEDS: ALPRAZolam 0.25 MG (XANAX) TAB PO SCH (20:10)
[2022-04-17] MEDS: AMITRIPTYLINE 25 MG (ELAVIL) TAB PO SCH (20:10)
[2022-04-17] MEDS: LATANOPROST 0.005% (XALATAN) OPHTH SOLN 2.5 ML OU SCH (20:11)
[2022-04-18] VITALS (20 sets, daily range): BP systolic 107–144; BP diastolic 57–75
[2022-04-18] MEDS: HYDROcodone/APAP 5 MG/325 MG (LORTAB) TAB PO PRN ×2 (01:50→09:36)
[2022-04-18] MEDS: RT-ALBUTEROL/IPRATROPIUM 3 ML (DUONEB) VIAL INH SCH ×4 (03:18→21:21)
[2022-04-18 06:36] LABS: HEMATOCRIT 35 % (35-52); HEMOGLOBIN 10.8 g/dL (11.5-16.0); MEAN CORPUSCULAR HEMOGLOBIN 29 pg (25-34); MEAN CORPUSCULAR HGB CONC 31 g/dL (32-36); MEAN CORPUSCULAR VOLUME 93 fL (80-99); MEAN PLATELET VOLUME 11.9 fL (9.0-12.2); PLATELET COUNT 227 10^3/uL (130-400); WHITE BLOOD COUNT 11.9 10^3/uL (4.3-11.0)
[2022-04-18 06:51] LABS: POTASSIUM 3.3 MMOL/L (3.6-5.0)
[2022-04-18 06:53] LABS: CALCIUM 8.9 MG/DL (8.5-10.1)
[2022-04-18 06:57] LABS: CREATININE SERUM 0.8 MG/DL (0.60-1.30)
[2022-04-18] MEDS: POTASSIUM CL 10MEQ/50ML IVPB 50 ML IV SCH (07:35)
[2022-04-18] MEDS: MAGNESIUM 1 GM/100 ML IVPB 100 ML IV SCH (07:35)
[2022-04-18] MEDS: KCL 20 MEQ TAB (K-DUR) PO SCH (07:36)
--- NOTE | 2022-04-18 07:36 | Progress Note - Hospitalist ---
Subjective HPI/CC On Admission Date Seen by Provider: Apr 18, 2022 Citlaly Salazar is an 82 year old female with PMH HTN, HLD, AFib, CVA, COPD, HFpEF, advanced dementia, who presented with shortness of breath. She is a poor historian and unable to provide any history. She reportedly came from home by EMS. She was found to have a COPD exacerbation and was started on steroids and BiPAP. Subjective/Events-last exam Pt sitting in bed and uncovering herself. States she is leaving the hospital as she doesn't like it here. When asked wheree she would like to go she states home with her son. When I attempted to discuss a safe discharge plan from the hospital with her she responded "Bullshit! I'm not paying hospital bills." She then states she has waited hours for me to see her (despite me seeing her before 7am). She has no other complaints. Objective Exam Vital Signs Vital Signs Date Time Temp Pulse Resp B/P (MAP) Pulse Ox O2 Delivery O2 Flow Rate FiO2 04/18/22 06:05 Room Air 04/18/22 06:00 60 24 98 2.00 04/18/22 04:00 36.3 04/16/22 04:40 30 Capillary Refill : Less Than 3 Seconds General Appearance: Anxious, Thin Respiratory: Lungs Clear, No Respiratory Distress Cardiovascular: Regular Rate, Rhythm, No Murmur Neurologic/Psychiatric: Alert, Oriented x3 Results/Procedures Lab Laboratory Tests 04/18/22 05:44 Patient resulted labs reviewed. Imaging: Reviewed Imaging Films, Reviewed Imaging Report Assessment/Plan Assessment and Plan Assess & Plan/Chief Complaint Acute on chronic respiratory failure with hypoxia and hypercapnia COPD with acute exacerbation CXR with no acute abnormalities, stable cardiomegaly, possible right upper lobe consolidation present on imaging one month ago TeleICU following Steroids, continue oral MAT protocol Doing well off BiPAP Son considering NH placement per RN If patient does not leave with son today will transfer to [facility] HTN HFpEF AFib Anxiety and depression Advanced dementia Glaucoma Continue home meds ELAINE, ABRAHAM Feliciano MD Apr 18, 2022 07:36
[2022-04-18] MEDS ORDERED: KCL 20 MEQ TAB (K-DUR) PO ONE ×2 (07:45→09:45)
[2022-04-18] MEDS: predniSONE 20 MG TAB PO SCH (08:18)
[2022-04-18] MEDS: lisINopril 5 MG (PRINIVIL) TABLET PO SCH (08:18)
[2022-04-18] MEDS: FUROSEMIDE 40 MG (LASIX) TAB PO SCH (08:18)
[2022-04-18] MEDS: GABAPENTIN 300 MG (NEURONTIN) CAP PO SCH ×3 (08:18→21:06)
[2022-04-18] MEDS: SENNOSIDES 8.6 MG (SENOKOT) TAB PO SCH ×2 (08:19→21:06)
[2022-04-18] MEDS: DOCUSATE SODIUM 100 MG (COLACE) CAP PO SCH ×2 (08:19→21:06)
[2022-04-18] MEDS: APIXABAN 5 MG (ELIQUIS) TABLET PO SCH ×2 (08:19→21:06)
[2022-04-18] MEDS: amLODIPine 5 MG (NORVASC) TAB PO SCH (08:19)
[2022-04-18] MEDS: SPIRONOLACTONE 25 MG (ALDACTONE) TAB PO SCH (08:19)
--- NOTE | 2022-04-18 09:55 | Tele-ICU Progress Note ---
Subjective Date Seen by a Provider: Apr 18, 2022 Time Seen by a Provider: 09:55 Subjective/Events-last exam (Tele-ICU Physician , Progress Note ) Available chart/ vitals / labs / Images reviewed Video assessment done using teleICU camera, rest of exam as per RN Discussed with RN Events overnight : on precedex Afebrile hemodynamically stable Respiratory - 2l I/O = even Drips: Pressors- no Consultants: Hospital course: recent admission for respiratory failure and was discharged 2 weeks ago. 04/14- ARF - BIPap A/P Acute (on chronic ) resp failure, hypercarbic and hypoxic -presumed CHF/ AECOPD - NEG flu and covid - ON 2L NC NOW _ BIPAP at night only - steroid diuresis Delirium / NONE at night - OFF presedex gtt - to wean - consider seroquil qHS - as per PCP RUL , RLL opacification on cxr - not new , no significant change with 2 weeks ago - just finished course of ABX , her currewnt temperature, CRP, WBC, and procalcitonin are not suggestive of a new bacterial infection - OFF ABX now COPD exacerbation - IV steroids changed to PO - to wean severe aortic stenosis - monitor , as per cads -not a candidate for any intervvention Acute on chronic heart failure with preserved ejection fraction (HFpEF) - as per PCP needs for diuresis carefully Permanent atrial fibrillation - rate controlled - 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 Discussed with RN to reach out if any questions or concerns A total of 15 minutes of critical care time was devoted to this patient today, required to treat and/or prevent further deterioration of critical care condition ( as above ) . Sepsis Event Evaluation Height, Weight, BMI Height: 5'4.00" Weight: 182lbs. 0.6oz. 77.130694zn; 28.84 BMI Method:Stated Exam Exam Patient acknowledged, consented, and participated in this virtual visit which was conducted using real time audio/video Vital Signs Date Time Temp Pulse Resp B/P (MAP) Pulse Ox O2 Delivery O2 Flow Rate FiO2 04/18/22 09:00 60 20 122/68 (86) 92 Room Air 04/18/22 08:00 60 18 121/62 (81) 91 Room Air 04/18/22 08:00 37.1 04/18/22 08:00 93 Room Air 04/18/22 07:00 60 22 132/65 (87) 91 Room Air 04/18/22 06:33 60 04/18/22 06:05 Room Air 04/18/22 06:00 60 24 117/60 (79) 98 Nasal Cannula 2.00 04/18/22 05:00 60 10 140/70 (99) 97 Nasal Cannula 2.00 04/18/22 04:00 60 22 144/73 (105) 89 Nasal Cannula 2.00 04/18/22 04:00 36.3 04/18/22 04:00 98 Nasal Cannula 2.00 04/18/22 03:18 96 Nasal Cannula 2.00 04/18/22 03:00 60 27 137/68 (91) 97 Nasal Cannula 2.00 04/18/22 03:00 36.8 Nasal Cannula 2.00 04/18/22 02:00 60 16 127/68 (87) 98 Nasal Cannula 2.00 04/18/22 01:00 60 23 136/66 (91) 99 Nasal Cannula 2.00 04/18/22 01:00 60 04/18/22 00:00 61 17 126/64 (88) 95 Nasal Cannula 2.00 04/17/22 23:45 37.0 04/17/22 23:36 96 Nasal Cannula 2.00 04/17/22 23:35 37.0 Nasal Cannula 2.00 04/17/22 23:00 60 25 123/65 (93) 97 Nasal Cannula 2.00 04/17/22 22:00 60 27 117/61 (84) 96 Nasal Cannula 2.00 04/17/22 21:36 97 Nasal Cannula 2.00 04/17/22 21:00 59 33 134/68 (94) 94 Nasal Cannula 2.00 04/17/22 20:00 63 12 142/73 (105) 96 Nasal Cannula 2.00 04/17/22 20:00 97 Nasal Cannula 2.00 04/17/22 19:00 65 04/17/22 19:00 65 22 134/72 (111) 96 Nasal Cannula 2.00 04/17/22 19:00 37.1 Nasal Cannula 2.00 04/17/22 18:00 62 22 118/59 (78) 93 Nasal Cannula 2.00 04/17/22 17:00 62 22 118/60 (79) 94 Nasal Cannula 2.00 04/17/22 16:01 98 Nasal Cannula 2.00 04/17/22 16:00 60 21 121/64 (83) 96 Nasal Cannula 2.00 04/17/22 15:00 60 22 113/62 (79) 100 Nasal Cannula 2.00 04/17/22 14:56 99 Nasal Cannula 2.00 04/17/22 14:00 60 20 107/55 (72) 100 Nasal Cannula 2.00 04/17/22 13:00 59 19 117/62 (80) 100 Nasal Cannula 2.00 04/17/22 12:19 60 04/17/22 12:14 98 Nasal Cannula 2.00 04/17/22 12:00 60 20 98/59 (72) 98 Nasal Cannula 2.00 04/17/22 11:00 60 24 102/59 (73) 99 Nasal Cannula 2.00 04/17/22 10:30 60 21 98/60 (73) 97 Nasal Cannula 2.00 04/17/22 10:00 60 21 83/45 (58) 97 Nasal Cannula 2.00 I & O 04/18/22 07:00 Intake Total 1870 ml Output Total 2150 ml Balance -280 ml Height & Weight Height: 5'4.00" Weight: 182lbs. 0.6oz. 77.980800bq; 28.84 BMI Method:Stated General Appearance: Anxious, Thin HEENT: PERRL/EOMI, Normal ENT Inspection Neck: Normal Inspection; No JVD Respiratory: Lungs Clear, No Respiratory Distress Cardiovascular: Regular Rate, Rhythm, No Murmur Capillary Refill: Less Than 3 Seconds Extremity: Normal Inspection, No Pedal Edema Neurologic/Psychiatric: Alert, Oriented x3 Skin: Normal Color, Warm/Dry Results Lab Laboratory Tests 04/17/22 03:28 04/18/22 05:44 Assessment/Plan Assessment/Plan 1 EHSAN FULTON MD Apr 18, 2022 09:55
--- NOTE | 2022-04-18 10:42 | Physical Therapy Daily Note ---
PT Daily Note-Current Subjective Patient more alert on this date. Mental Status Patient Orientation: Confused Attachments: Oxygen, Chavis Catheter Transfers SCALE: Activities may be completed with or without assistive devices. 3-Zpqohzpfpy-zreevjf completes the activity by him/herself with no assistance from a helper. 5-Set-up or Clean-up Assistance-helper sets up or cleans up; patient completes activity. [place] assists only prior to or following the activity. 4-Supervision or Touching Assistance-helper provides verbal cues and/or touching/steadying and/or contact guard assistance as patient completes activity. Assistance may be provided throughout the activity or intermittently. 3-Partial/Moderate Assistance-helper does LESS THAN HALF the effort. [place] lifts, holds or supports trunk or limbs, but provides less than half the effort. 2-Substantial/Maximal Assistance-helper does MORE THAN HALF the effort. [place] lifts or holds trunk or limbs and provides more than half the effort. 0-Ytebiaksn-zvwzks does ALL the effort. Patient does none of the effort to complete the activity. Or, the assistance of 2 or more helpers is required for the patient to complete the activity. If activity was not attempted, code reason: 7-Patient Refused. 9-Not Applicable-not attempted and the patient did not perform the activity before the current illness, exacerbation or injury. 10-Not Attempted due to Environmental Limitations-(lack of equipment, weather restraints, etc.). 88-Not Attempted due to Medical Conditions or Safety Concerns. Roll Left & Right (QC): 2 Sit to Lying (QC): 2 Lying to Sitting/Side of Bed(Q: 2 Weight Bearing Right Lower Extremity: Right Weight Bearing/Tolerated Left Lower Extremity: Left Weight Bearing/Tolerated Exercises Supine Ex: Ankle pumps, Heel Slides, Straight leg raise Supine Reps: 12 (PROM) Assessment Patient sat EOB for 5 min CGA. Patient tolerated increase in activity on this date. 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 Goals Time Frame: May 06, 2022 Roll Left & Right (QC): 3 Sit to Lying (QC): 3 Lying-Sitting on Side/Bed(QC): 3 Sit to Stand (QC): 3 Chair/Liz-va-Gesym Xfer(QC): 3 Does the Patient Walk: No and Walking Goal IS indicated Walk 10 feet (QC): 3 PT Plan Treatment/Plan Treatment Plan: Continue Plan of Care Treatment Plan: Bed Mobility, Education, Functional Activity Katherine, Functional Strength, Gait, Safety, Therapeutic Exercise, Transfers Treatment Duration: May 06, 2022 Frequency: 5 times per week Estimated Hrs Per Day: .25 hour per day Time/GCodes Time In: 836 Time Out: 848 Total Billed Treatment Time: 12 Total Billed Treatment 1 visit EX 12 min CHRISTI BOYLE PT Apr 18, 2022 10:42
[2022-04-18] MEDS: RT--FLUTICASONE/SALMETEROL 232-14 (AIRDUO RespiCLICK) IH SCH ×2 (10:51→21:21)
[2022-04-18] MEDS: AtorvaSTATin TABLET 10 MG TABLET PO SCH (21:06)
[2022-04-18] MEDS: rOPINIRole 1 MG (REQUIP) TABLET PO SCH (21:06)
[2022-04-18] MEDS: AMITRIPTYLINE 25 MG (ELAVIL) TAB PO SCH (21:06)
[2022-04-18] MEDS: ALPRAZolam 0.25 MG (XANAX) TAB PO SCH (21:06)
[2022-04-18] MEDS: LATANOPROST 0.005% (XALATAN) OPHTH SOLN 2.5 ML OU SCH (21:56)
[2022-04-19 03:40] VITALS: BP 119/69
[2022-04-19] MEDS: RT-ALBUTEROL/IPRATROPIUM 3 ML (DUONEB) VIAL INH SCH ×4 (03:48→21:54)
[2022-04-19 05:50] LABS: HEMATOCRIT 31 % (35-52); HEMOGLOBIN 9.7 g/dL (11.5-16.0); MEAN CORPUSCULAR HEMOGLOBIN 29 pg (25-34); MEAN CORPUSCULAR HGB CONC 32 g/dL (32-36); MEAN CORPUSCULAR VOLUME 93 fL (80-99); MEAN PLATELET VOLUME 11.8 fL (9.0-12.2); PLATELET COUNT 197 10^3/uL (130-400); WHITE BLOOD COUNT 9.5 10^3/uL (4.3-11.0)
[2022-04-19] MEDS: predniSONE 20 MG TAB PO SCH (05:59)
[2022-04-19 06:12] LABS: POTASSIUM 3.8 MMOL/L (3.6-5.0)
[2022-04-19 06:13] LABS: CALCIUM 8.9 MG/DL (8.5-10.1)
[2022-04-19 06:17] LABS: CREATININE SERUM 0.77 MG/DL (0.60-1.30)
[2022-04-19 07:51] VITALS: BP 118/60
[2022-04-19] MEDS: SPIRONOLACTONE 25 MG (ALDACTONE) TAB PO SCH (09:10)
[2022-04-19] MEDS: FUROSEMIDE 40 MG (LASIX) TAB PO SCH (09:12)
[2022-04-19] MEDS: GABAPENTIN 300 MG (NEURONTIN) CAP PO SCH ×3 (09:12→21:04)
[2022-04-19] MEDS: SENNOSIDES 8.6 MG (SENOKOT) TAB PO SCH ×2 (09:12→21:05)
[2022-04-19] MEDS: APIXABAN 5 MG (ELIQUIS) TABLET PO SCH ×2 (09:13→21:04)
[2022-04-19] MEDS: DOCUSATE SODIUM 100 MG (COLACE) CAP PO SCH ×2 (09:13→21:04)
[2022-04-19] MEDS: HYDROcodone/APAP 5 MG/325 MG (LORTAB) TAB PO PRN (09:13)
[2022-04-19] MEDS: amLODIPine 5 MG (NORVASC) TAB PO SCH (09:13)
[2022-04-19] MEDS: lisINopril 5 MG (PRINIVIL) TABLET PO SCH (09:13)
--- NOTE | 2022-04-19 10:03 | Physical Therapy Daily Note ---
PT Daily Note-Current Subjective Pt. in bed confused but pleasant. Agreeable to sitting EOB with cajoling etc. Pain Location: No Pain Reported Mental Status Patient Orientation: Confused Transfers SCALE: Activities may be completed with or without assistive devices. 0-Pxmczdmfsi-kbjgyrt completes the activity by him/herself with no assistance from a helper. 5-Set-up or Clean-up Assistance-helper sets up or cleans up; patient completes activity. [place] assists only prior to or following the activity. 4-Supervision or Touching Assistance-helper provides verbal cues and/or touching/steadying and/or contact guard assistance as patient completes activity. Assistance may be provided throughout the activity or intermittently. 3-Partial/Moderate Assistance-helper does LESS THAN HALF the effort. [place] lifts, holds or supports trunk or limbs, but provides less than half the effort. 2-Substantial/Maximal Assistance-helper does MORE THAN HALF the effort. [place] lifts or holds trunk or limbs and provides more than half the effort. 2-Qsnxczctn-binyyb does ALL the effort. Patient does none of the effort to complete the activity. Or, the assistance of 2 or more helpers is required for the patient to complete the activity. If activity was not attempted, code reason: 7-Patient Refused. 9-Not Applicable-not attempted and the patient did not perform the activity be fore the current illness, exacerbation or injury. 10-Not Attempted due to Environmental Limitations-(lack of equipment, weather restraints, etc.). 88-Not Attempted due to Medical Conditions or Safety Concerns. rolling CGA, sup to sit min asst, sit to sup mod to min asst, needed max asst 2 to pull up in bed after Rx Weight Bearing Right Lower Extremity: Right Weight Bearing/Tolerated Left Lower Extremity: Left Weight Bearing/Tolerated Exercises Supine Ex: Ankle pumps, Rolling, Heel Slides, Straight leg raise, Hip abd/add Supine Reps: 10 (PAAROM) Treatments PAAROM in sup, sup to sit TRF, sat EOB 8 min, back in bed mod to min asst, bed alarm in situ, call arriaga at hand Assessment Current Status: Fair Progress PT Edge Worker Goals Edge Worker Goals PT Fdc Goals Time Frame: May 06, 2022 Roll Left & Right (QC): 3 Sit to Lying (QC): 3 Lying-Sitting on Side/Bed(QC): 3 Sit to Stand (QC): 3 Chair/Kdg-bg-Uryep Xfer(QC): 3 Does the Patient Walk: No and Walking Goal IS indicated Walk 10 feet (QC): 3 PT Plan Treatment/Plan Treatment Plan: Continue Plan of Care Treatment Plan: Bed Mobility, Education, Functional Activity Katherine, Functional Strength, Gait, Safety, Therapeutic Exercise, Transfers Treatment Duration: May 06, 2022 Frequency: 5 times per week Estimated Hrs Per Day: .25 hour per day Safety Risks/Education Patient Education: Transfer Techniques, Correct Positioning, Safety Issues Teaching Recipient: Patient Teaching Methods: Discussion Response to Teaching: Unable to Return Demonstration, Unable to Comprehend, Reinforcement Needed Time/GCodes Time In: 940 Time Out: 1000 Total Billed Treatment Time: 20 Total Billed Treatment 1,FA20m LIZETH LEO [employer] CRAFTSMAN Apr 19, 2022 10:03
[2022-04-19] MEDS: RT--FLUTICASONE/SALMETEROL 232-14 (AIRDUO RespiCLICK) IH SCH ×2 (10:11→21:55)
[2022-04-19 11:16] VITALS: BP 114/58
--- NOTE | 2022-04-19 11:47 | Progress Note - Hospitalist ---
Subjective HPI/CC On Admission Date Seen by Provider: Apr 19, 2022 Citlaly Salazar is an 82 year old female with PMH HTN, HLD, AFib, CVA, COPD, HFpEF, advanced dementia, who presented with shortness of breath. She is a poor historian and unable to provide any history. She reportedly came from home by EMS. She was found to have a COPD exacerbation and was started on steroids and BiPAP. Subjective/Events-last exam Pt reports doing well. No new complaints. Still somewhat confused but less agitated today. Objective Exam Vital Signs Vital Signs Date Time Temp Pulse Resp B/P (MAP) Pulse Ox O2 Delivery O2 Flow Rate FiO2 04/19/22 11:16 37.1 60 18 114/58 (76) 92 Room Air 04/18/22 10:52 2.00 04/16/22 04:40 30 Capillary Refill : Less Than 3 Seconds General Appearance: No Apparent Distress, Chronically ill Respiratory: Lungs Clear, No Respiratory Distress Cardiovascular: Regular Rate, Rhythm, No Murmur Neurologic/Psychiatric: Alert, Oriented x3 Results/Procedures Lab Laboratory Tests 04/19/22 05:22 Patient resulted labs reviewed. Imaging: Reviewed Imaging Films, Reviewed Imaging Report Assessment/Plan Assessment and Plan Assess & Plan/Chief Complaint Acute on chronic respiratory failure with hypoxia and hypercapnia COPD with acute exacerbation CXR with no acute abnormalities, stable cardiomegaly, possible right upper lobe consolidation present on imaging one month ago TeleICU following Steroids, continue oral MAT protocol Doing well off BiPAP Son agreeable to NH placement at [facility],awaiting acceptance there HTN HFpEF AFib Anxiety and depression Advanced dementia Glaucoma Continue home meds ELAINE, ABRAHAM Feliciano MD Apr 19, 2022 11:47
[2022-04-19 15:39] VITALS: BP 120/59
--- NOTE | 2022-04-19 15:40 | Discharge Inst-Skilled Nursing ---
Discharge Inst-Skilled NF Chief Complaint Citlaly Salazar is an 82 year old female with PMH HTN, HLD, AFib, CVA, COPD, HFpEF, advanced dementia, who presented with shortness of breath. She is a poor historian and unable to provide any history. She reportedly came from home by EMS. She was found to have a COPD exacerbation and was started on steroids and BiPAP. Patient Instructions Patient Problems: Please continue to take your medications as written. Please follow up with your primary care doctor to follow up this hospital stay. Consult/Follow Up/Orders Skilled NF Admit to: [facility] Certification (SNF) I certify that SNF services are required to be given on an inpatient basis because of the above named patient's need for fpc care on a continu ing basis for the conditions(s) for which he/she was receiving inpatient hospital services prior to his/her transfer to the SNF. [facility] Facility Order: Nursing Services, Information Technology Professor-Evaluate & Treat, Physical Therapy-Evaluate & Treat Oxygen Delivery Method: Room Air Daily Activity as Tolerated: Yes Resuscitation Status: Do Not Resuscitate New & Resume Previous Orders Abraham Williamson Apr 19, 2022 15:39 ABRAHAM WILLIAMSON MD Apr 19, 2022 15:40
[2022-04-19 19:42] VITALS: BP 146/65
[2022-04-19] MEDS: AMITRIPTYLINE 25 MG (ELAVIL) TAB PO SCH (21:04)
[2022-04-19] MEDS: AtorvaSTATin TABLET 10 MG TABLET PO SCH (21:04)
[2022-04-19] MEDS: rOPINIRole 1 MG (REQUIP) TABLET PO SCH (21:05)
[2022-04-19] MEDS: ALPRAZolam 0.25 MG (XANAX) TAB PO SCH (21:05)
[2022-04-19] MEDS: LATANOPROST 0.005% (XALATAN) OPHTH SOLN 2.5 ML OU SCH (21:06)
[2022-04-20 00:52] VITALS: BP 102/55
[2022-04-20] MEDS: RT-ALBUTEROL/IPRATROPIUM 3 ML (DUONEB) VIAL INH SCH ×2 (02:53→08:04)
[2022-04-20 03:19] LABS: HEMATOCRIT 32 % (35-52); HEMOGLOBIN 10.1 g/dL (11.5-16.0); MEAN CORPUSCULAR HEMOGLOBIN 29 pg (25-34); MEAN CORPUSCULAR HGB CONC 32 g/dL (32-36); MEAN CORPUSCULAR VOLUME 92 fL (80-99); MEAN PLATELET VOLUME 11.3 fL (9.0-12.2); PLATELET COUNT 200 10^3/uL (130-400); WHITE BLOOD COUNT 9.9 10^3/uL (4.3-11.0)
[2022-04-20 03:53] VITALS: BP 120/58
[2022-04-20 03:56] LABS: POTASSIUM 3.4 MMOL/L (3.6-5.0)
[2022-04-20 03:57] LABS: CALCIUM 8.7 MG/DL (8.5-10.1)
[2022-04-20 04:01] LABS: CREATININE SERUM 0.94 MG/DL (0.60-1.30)
[2022-04-20] MEDS: predniSONE 20 MG TAB PO SCH (05:55)
[2022-04-20] MEDS: RT--FLUTICASONE/SALMETEROL 232-14 (AIRDUO RespiCLICK) IH SCH (08:04)
[2022-04-20 08:11] VITALS: BP 110/58
[2022-04-20] MEDS: FUROSEMIDE 40 MG (LASIX) TAB PO SCH (08:23)
[2022-04-20] MEDS: APIXABAN 5 MG (ELIQUIS) TABLET PO SCH (08:23)
[2022-04-20] MEDS: lisINopril 5 MG (PRINIVIL) TABLET PO SCH (08:23)
[2022-04-20] MEDS: SENNOSIDES 8.6 MG (SENOKOT) TAB PO SCH (08:23)
[2022-04-20] MEDS: amLODIPine 5 MG (NORVASC) TAB PO SCH (08:23)
[2022-04-20] MEDS: DOCUSATE SODIUM 100 MG (COLACE) CAP PO SCH (08:23)
[2022-04-20] MEDS: SPIRONOLACTONE 25 MG (ALDACTONE) TAB PO SCH (08:23)
[2022-04-20] MEDS: GABAPENTIN 300 MG (NEURONTIN) CAP PO SCH ×2 (08:23→13:21)
--- NOTE | 2022-04-20 09:55 | Discharge Summary ---
Diagnosis/Chief Complaint Date of Admission Apr 14, 2022 at 11:45 Date of Discharge Discharge Date: Apr 20, 2022 Admission Diagnosis Acute on chronic respiratory failure with hypoxia and hypercapnia Primary Care Jason Boudreaux MD Discharge Diagnosis (1) Acute on chronic respiratory failure with hypoxia and hypercapnia (2) COPD exacerbation Status: Acute (3) ELAINE (acute kidney injury) Status: Acute (4) Chronic heart failure with preserved ejection fraction (HFpEF) Status: Chronic (5) Advanced dementia Status: Acute Discharge Summary Discharge Physical Exam Allergies: Coded Allergies: doxycycline (Unverified Allergy, Mild, 11/26/17) Vitals & I&Os Vital Signs Date Time Temp Pulse Resp B/P (MAP) Pulse Ox O2 Delivery O2 Flow Rate FiO2 04/20/22 08:11 36.5 60 16 110/58 (75) 100 Room Air 04/18/22 10:52 2.00 04/16/22 04:40 30 Hospital Course Labs (last 24 hrs) Laboratory Tests 04/20/22 03:08: White Blood Count 9.9, Red Blood Count 3.49L, Hemoglobin 10.1L, Hematocrit 32L, Mean Corpuscular Volume 92, Mean Corpuscular Hemoglobin 29, Mean Corpuscular H emoglobin Concent 32, Red Cell Distribution Width 14.5, Platelet Count 200, Mean Platelet Volume 11.3, Sodium Level 140, Potassium Level 3.4L, Chloride Level 102, Carbon Dioxide Level 29, Anion Gap 9, Blood Urea Nitrogen 26H, Creatinine 0.94, Estimat Glomerular Filtration Rate 61, BUN/Creatinine Ratio 28, Glucose Level 91, Calcium Level 8.7 Microbiology 04/14/22 Urine Culture - Final, Complete NO GROWTH 04/14/22 Blood Culture - Final, Complete No growth Patient resulted labs reviewed. Pending Labs Laboratory Tests 04/20/22 03:08: White Blood Count 9.9, Red Blood Count 3.49, Hemoglobin 10.1, Hematocrit 32, Mean Corpuscular Volume 92, Mean Corpuscular Hemoglobin 29, Mean Corpuscular Hemoglobin Concent 32, Red Cell Distribution Width 14.5, Platelet Count 200, Mean Platelet Volume 11.3, Sodium Level 140, Potassium Level 3.4, Chloride Level 102, Carbon Dioxide Level 29, Anion Gap 9, Blood Urea Nitrogen 26, Creatinine 0.94, Estimat Glomerular Filtration Rate 61, BUN/Creatinine Ratio 28, Glucose Level 91, Calcium Level 8.7 Imaging: Reviewed Imaging Films, Reviewed Imaging Report Discharge Home Medications: Active Scripts Active Reported Preservision Areds Softgel (Vit A/C/E/Zinc/Co) 14,320-226 Capsule 1 Cap PO DAILY [place] 3 Fish Oil Softgel ([place]-3 Fatty Acids/Fish Oil) 684 Mg-1,200 Mg Capsule.dr 1 Each PO DAILY Vitamin D3 (Cholecalciferol (Vitamin D3)) 25 Mcg (1000 Unit) Capsule 25 Mcg PO DAILY Proventil Hfa (Albuterol Sulfate) 6.7 Gm Hfa.aer.ad 2 Puff INH Q6H PRN Breo Ellipta 200-25 Mcg INH (Fluticasone/Vilanterol) 200 Mcg-25 Mcg/Dose Blst.w.dev 1 Each IH DAILY Meloxicam 15 Mg Tablet 15 Mg PO 1400 Furosemide 40 Mg Tablet 60 Mg PO DAILY TAKES 1 & (20MG) TABS Potassium Chloride 20 Meq Tab.er.prt 20 Meq PO DAILY ALPRAZolam 0.25 Mg Tablet 0.25 Mg PO HS Ondansetron HCl 4 Mg Tablet 4 Mg PO Q6H PRN Hydrocodone-Acetamin 5-325 mg (Hydrocodone/Acetaminophen) 1 Each Tablet 1 Tab PO Q6H PRN Tramadol HCl 50 Mg Tablet 50 Mg PO BID Amlodipine Besylate 5 Mg Tablet 5 Mg PO DAILY Lisinopril 5 Mg Tablet 2.5 Mg PO DAILY TAKES (5MG) TABLET Spironolactone 25 Mg Tablet 12.5 Mg PO DAILY TAKES OF A 25MG TAB Carvedilol 3.125 Mg Tablet 3.125 Mg PO BID Pravastatin Sodium 10 Mg Tablet 10 Mg PO HS Eliquis (Apixaban) 5 Mg Tablet 5 Mg PO BID Citalopram HBr (Citalopram Hydrobromide) 10 Mg Tablet 10 Mg PO HS LAST FILLED 01-09-2022 #30/30 DAY SUPPLY Xalatan (Latanoprost) 2.5 Ml Drops 1 Drop OU HS Neurontin (Gabapentin) 300 Mg Capsule 300 Mg PO TID Amitriptyline HCl 25 Mg Tablet 25 Mg PO HS Ropinirole HCl 1 Mg Tablet 1 Mg PO HS Instructions to patient/family Please see electronic discharge instructions given to patient. ABRAHAM CIFUENTES MD Apr 20, 2022 09:55
[2022-04-20] MEDS ORDERED: TRAM50TA3 PO (11:14)
[2022-04-20] MEDS ORDERED: ACHD5005 PO (11:14)
[2022-04-20] MEDS ORDERED: ALPR0.254 PO (11:14)
[2022-04-20 11:33] VITALS: BP 117/56
[2022-04-20 14:19] VITALS: BP 117/56
[2022-04-20 14:20] VITALS: BP 117/56
[2022-04-20] MEDS ORDERED: RT-ALBUTEROL/IPRATROPIUM 3 ML (DUONEB) VIAL INH SCH (21:00)
== END 2022-04-20 14:21 | DRG 189 ==
LOC: EDUNIT# 09:52 → ER 09:53 → ICU 11:45 → 4TH 04-18 17:58
PROVIDERS: ADMIT Internal Medicine; ATTEND Internal Medicine
PROC: 5A09357 Assistance with Respiratory Ventilation, Less than 24 Consecutive Hours, Continuous Positive Airway Pressure (ICD-10-PCS; principal; 2022-04-14)
DX: J96.22 Acute and chronic respiratory failure with hypercapnia (principal); I50.33 Acute on chronic diastolic (congestive) heart failure; N17.9 Acute kidney failure, unspecified; I13.0 Hypertensive heart and chronic kidney disease with heart failure and stage 1 through stage 4 chronic kidney disease, or unspecified chronic kidney disease; I48.21 Permanent atrial fibrillation; J44.1 Chronic obstructive pulmonary disease with (acute) exacerbation; J96.21 Acute and chronic respiratory failure with hypoxia; Z66 Do not resuscitate; Z20.822 Contact with and (suspected) exposure to COVID-19; N18.9 Chronic kidney disease, unspecified; I35.0 Nonrheumatic aortic (valve) stenosis; F03.90 Unspecified dementia, unspecified severity, without behavioral disturbance, psychotic disturbance, mood disturbance, and anxiety; G47.30 Sleep apnea, unspecified; I44.7 Left bundle-branch block, unspecified; E78.00 Pure hypercholesterolemia, unspecified; G25.81 Restless legs syndrome; D64.9 Anemia, unspecified; F41.9 Anxiety disorder, unspecified; F32.A Depression, unspecified; H54.7 Unspecified visual loss; H91.90 Unspecified hearing loss, unspecified ear; Z79.01 Long term (current) use of anticoagulants; Z86.73 Personal history of transient ischemic attack (TIA), and cerebral infarction without residual deficits; Z95.0 Presence of cardiac pacemaker; Z88.1 Allergy status to other antibiotic agents
CPT/HCPCS: 36415; 36600; 51702; 71045; 80048; 80053; 81000; 82805; 82947; 83605; 83735; 83880; 84145; 84484; 85007; 85027; 85610; 85730; 86141; 87040; 87088; 87636; 93005; 93041; 94640; 94660; 99291

== ENCOUNTER 2022-05-31 09:39 | Inpatient (IN) | payer MEDICARE ==
[2022-05-31] VITALS (14 sets, daily range): BP systolic 119–168; BP diastolic 58–95
[~2022-05-31] VITALS: Ht 162.6 cm; Wt 76.8 kg
[2022-05-31] MEDS ORDERED: CEFEPIME INJECTION 1,000 MG in NS (IVPB) 50 ML IV ONE (09:45)
[2022-05-31] MEDS ORDERED: RT-ALBUTEROL/IPRATROPIUM 3 ML (DUONEB) VIAL INH ONE (09:45)
[2022-05-31] MEDS ORDERED: NS IV 1000 ML 1,000 ML IV ONE (09:45)
[2022-05-31] MEDS ORDERED: methylPREDNISolone 125 MG (Solu-MEDROL) VIAL IV STA (09:45)
--- NOTE | 2022-05-31 09:50 | ED Respiratory ---
General Stated Complaint: SOA Source: patient Exam Limitations: no limitations History of Present Illness Date Seen by Provider: May 31, 2022 Time Seen by Provider: 09:35 Initial Comments Patient to the ER by EMS from [facility] with chief complaint she is having some increased work of breathing, at baseline dementia, oxygen saturations in the 80s. They turned her oxygen up and she had oxygen saturations in the high 80s. EMS put her on a nonrebreather bring her up into t he mid 90s 96 to 97%. She is having pursed lip breathing. She is not endorsing orthopnea. She is having pain in her left hip across to her right hip. She denies a fall. Staff denies she had any fall. No dysuria nausea vomiting or chest pain. Discussed case with the son who is the power of city attorney. He at this time does not wish her to go on to comfort cares or hospice. He would like to push ahead as long as there is a chance of improvement. He is okay with intubation if there is a hope for short-term improvement. The patient is still a DNR. Allergies and Home Medications Allergies Coded Allergies: doxycycline (Unverified Allergy, Mild, 11/26/17) Patient Home Medication List Home Medication List Reviewed: Yes ALPRAZolam (ALPRAZolam) 0.25 Mg Tablet, 0.25 MG PO HS Prescribed by: ABRAHAM WILLIAMSON on 04/20/22 1114 Albuterol Sulfate (Proventil Hfa) 6.7 Gm Hfa.aer.ad, 2 PUFF INH Q6H PRN for SHORTNESS OF BREATH, (Reported) Entered as Reported by: ABHIJEET FELIPE on 03/28/22 1422 Amitriptyline HCl (Amitriptyline HCl) 25 Mg Tablet, 25 MG PO HS, (Reported) Entered as Reported by: SREEDHAR MCMANUS on 09/26/20 1610 Amlodipine Besylate (Amlodipine Besylate) 5 Mg Tablet, 5 MG PO DAILY, (Reported) Entered as Reported by: ABHIJEET FELIPE on 05/25/21 1413 Apixaban (Eliquis) 5 Mg Tablet, 5 MG PO BID, (Reported) Entered as Reported by: ABHIJEET FELIPE on 02/24/21 1308 Carvedilol (Carvedilol) 3.125 Mg Tablet, 3.125 MG PO BID, (Reported) Entered as Reported by: GALDINO FELDMAN on 04/11/21 0953 Cholecalciferol (Vitamin D3) (Vitamin D3) 25 Mcg (1000 Unit) Capsule, 25 MCG PO DAILY, (Reported) Entered as Reported by: ABHIJEET FELIPE on 03/28/22 1424 Citalopram Hydrobromide (Citalopram HBr) 10 Mg Tablet, 10 MG PO HS, (Reported) Entered as Reported by: ABHIJEET FELIPE on 02/24/21 1308 Fluticasone/Vilanterol (Breo Ellipta 200-25 Mcg INH) 200 Mcg-25 Mcg/Dose Blst.w.dev, 1 EACH IH DAILY, (Reported) Entered as Reported by: ABHIJEET FELIPE on 03/28/22 142 Furosemide (Furosemide) 40 Mg Tablet, 60 MG PO DAILY, (Reported) Entered as Reported by: ABHIJEET FELIPE on 03/28/22 1156 Gabapentin (Neurontin) 300 Mg Capsule, 300 MG PO TID, (Reported) Entered as Reported by: SREEDHAR MCMANUS on 09/26/20 1610 Hydrocodone/Acetaminophen (Hydrocodone-Acetamin 5-325 mg) 5 Mg-325 Mg Tablet, 1 TAB PO Q6H PRN for PAIN-MODERATE (5-7) Prescribed by: ABRAHAM WILLIAMSON on 04/20/22 1114 Latanoprost (Xalatan) 2.5 Ml Drops, 1 DROP OU HS, (Reported) Entered as Reported by: ABHIJEET FELIPE on 09/28/20 0910 Lisinopril (Lisinopril) 5 Mg Tablet, 2.5 MG PO DAILY, (Reported) Entered as Reported by: GALDINO FELDMAN on 04/11/21 0953 Meloxicam (Meloxicam) 15 Mg Tablet, 15 MG PO 1400, (Reported) Entered as Reported by: ABHIJEET FELIPE on 03/28/22 142 Dupont-3 Fatty Acids/Fish Oil (Dupont 3 Fish Oil Softgel) 684 Mg-1,200 Mg Capsule.dr, 1 EACH PO DAILY, (Reported) Entered as Reported by: ABHIJEET FELIPE on 03/28/22 142 Ondansetron HCl (Ondansetron HCl) 4 Mg Tablet, 4 MG PO Q6H PRN for NAUSEA/VOMITING-1ST LINE, (Reported) Entered as Reported by: ABHIJEET FELIPE on 05/25/21 1413 Potassium Chloride (Potassium Chloride) 20 Meq Tab.er.prt, 20 MEQ PO DAILY, (Reported) Entered as Reported by: ABHIJEET FELIPE on 03/28/22 1156 Pravastatin Sodium (Pravastatin Sodium) 10 Mg Tablet, 10 MG PO HS, (Reported) Entered as Reported by: ABHIJEET FELIPE on 03/03/21 0844 Ropinirole HCl (Ropinirole HCl) 1 Mg Tablet, 1 MG PO HS, (Reported) Entered as Reported by: ESTEFANÍA FIORE on 11/26/17 0843 Spironolactone (Spironolactone) 25 Mg Tablet, 12.5 MG PO DAILY, (Reported) Entered as Reported by: GALDINO FELDMAN on 04/11/21 0953 Tramadol HCl (Tramadol HCl) 50 Mg Tablet, 50 MG PO BID Prescribed by: ABRAHAM WILLIAMSON on 04/20/22 1114 Vit A/C/E/Zinc/Co (Preservision Areds Softgel) 14,320-226 Capsule, 1 CAP PO DAILY, (Reported) Entered as Reported by: ABHIJEET FELIPE on 03/28/22 1424 Review of Systems Review of Systems Constitutional: No chills, No fever EENTM: No ear discharge Respiratory: No cough; short of breath Cardiovascular: No chest pain, No edema Gastrointestinal: abdominal pain; No constipation, No diarrhea, No nausea Genitourinary: No discharge, No dysuria Musculoskeletal: No back pain, No joint pain All Other Systems Reviewed Negative Unless Noted: Yes Past Prtohhd-Jxdlkf-Pmvbgu Hx Patient Social History Tobacco Use?: No Use of E-Cig and/or Vaping dev: No Substance use?: No Immunizations Up To Date First/Initial COVID19 Vaccinat: unk date Second COVID19 Vaccination Ronald: unk date Third COVID19 Vaccination Date: unk date Seasonal Allergies Seasonal Allergies: Yes Past Medical History Surgery/Hospitalization HX: Pacemaker placement, COPD, CHF, Surgeries: Yes Section, Pacemaker, Tonsillectomy Respiratory: Yes Asthma, Sleep Apnea, COPD Currently Using CPAP: No Cardiac: Yes (CHF; LBBB) Atrial Fibrillation, High Cholesterol, Hypertension, Valvular Heart Disease Neurological: Yes (rest less leg syndrome) Dementia, Stroke Reproductive Disorders: No Sexually Transmitted Disease: No HIV/AIDS: No Genitourinary: Yes Renal Failure Gastrointestinal: Yes Gastroesophageal Reflux, Chronic Constipation Musculoskeletal: Yes Arthritis, Chronic Back Pain Endocrine: No 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 0.6oz. [id number]; 27.30 BMI Method:Stated General Appearance: WD/WN, moderate distress Eyes: Bilateral Eye Normal Inspection, Bilateral Eye PERRL, Bilateral Eye EOMI HEENT: PERRL/EOMI, normal ENT inspection, TMs normal, pharynx normal Neck: full range of motion, supple, normal inspection Respiratory: respiratory distress (Pursed lip breathing, abdominal muscle use, satting 95% on nonrebreather at 10 L/min), decreased breath sounds, wheezing (Faint bilateral) Cardiovascular: normal peripheral pulses, regular rate, rhythm Gastrointestinal: normal bowel sounds, non tender, soft Extremities: normal inspection, normal capillary refill Neurologic/Psychiatric: alert, normal mood/affect, oriented x 3 Skin: normal color, warm/dry Focused Exam Lactate Level 05/31/22 09:50: Lactic Acid Level 0.85 Lactic Acid Level Laboratory Tests Test 05/31/22 09:50 Lactic Acid Level 0.85 MMOL/L (0.50-2.00) Progress/Results/Core Measures Suspected Sepsis SIRS Temperature: Pulse: Respiratory Rate: Laboratory Tests 05/31/22 09:50: White Blood Count 12.6H Blood Pressure / Mean: 05/31/22 09:50: Lactic Acid Level 0.85 Laboratory Tests 05/31/22 09:50: Creatinine 0.76, INR Comment 1.4, Platelet Count 336, Total Bilirubin 1.4H Results/Orders Lab Results Laboratory Tests Test 05/31/22 09:50 05/31/22 09:55 05/31/22 09:59 05/31/22 10:37 Range/Units White Blood Count 12.6 H 4.3-11.0 10^3/uL Red Blood Count 3.76 L 3.80-5.11 10^6/uL Hemoglobin 10.6 L 11.5-16.0 g/dL Hematocrit 34 L 35-52 % Mean Corpuscular Volume 90 80-99 fL Mean Corpuscular Hemoglobin 28 25-34 pg Mean Corpuscular Hemoglobin Concent 32 32-36 g/dL Red Cell Distribution Width 15.8 H 10.0-14.5 % Platelet Count 336 130-400 10^3/uL Mean Platelet Volume 10.7 9.0-12.2 fL Immature Granulocyte % (Auto) 1 % Neutrophils (%) (Auto) 84 H 42-75 % Lymphocytes (%) (Auto) 6 L 12-44 % Monocytes (%) (Auto) 5 0-12 % Eosinophils (%) (Auto) 4 0-10 % Basophils (%) (Auto) 1 0-10 % Neutrophils # (Auto) 10.5 H 1.8-7.8 10^3/uL Lymphocytes # (Auto) 0.8 L 1.0-4.0 10^3/uL Monocytes # (Auto) 0.6 0.0-1.0 10^3/uL Eosinophils # (Auto) 0.5 H 0.0-0.3 10^3/uL Basophils # (Auto) 0.1 0.0-0.1 10^3/uL Immature Granulocyte # (Auto) 0.1 0.0-0.1 10^3/uL Neutrophils % (Manual) 80 % Lymphocytes % (Manual) 9 % Monocytes % (Manual) 5 % Eosinophils % (Manual) 2 % Basophils % (Manual) 2 % Band Neutrophils 2 % Anisocytosis SLIGHT Elliptocytes SLIGHT Prothrombin Time 17.6 H 12.2-14.7 SEC INR Comment 1.4 0.8-1.4 Activated Partial Thromboplast Time 36 H 24-35 SEC Sodium Level 144 135-145 MMOL/L Potassium Level 4.4 3.6-5.0 MMOL/L Chloride Level 105 98-107 MMOL/L Carbon Dioxide Level 28 21-32 MMOL/L Anion Gap 11 5-14 MMOL/L Blood Urea Nitrogen 19 H 7-18 MG/DL Creatinine 0.76 0.60-1.30 MG/DL Estimat Glomerular Filtration Rate 79 BUN/Creatinine Ratio 25 Glucose Level 108 H 70-105 MG/DL Lactic Acid Level 0.85 0.50-2.00 MMOL/L Calcium Level 9.5 8.5-10.1 MG/DL Corrected Calcium 9.6 8.5-10.1 MG/DL Total Bilirubin 1.4 H 0.1-1.0 MG/DL Aspartate Amino Transf (AST/SGOT) 17 5-34 U/L Alanine Aminotransferase (ALT/SGPT) 9 0-55 U/L Alkaline Phosphatase 93 40-136 U/L Troponin I 0.041 H <0.028 NG/ML C-Reactive Protein High Sensitivity 1.52 H 0.00-0.50 MG/DL B-Type Natriuretic Peptide 960.7 H <100.0 PG/ML Total Protein 6.9 6.4-8.2 GM/DL Albumin 3.9 3.2-4.5 GM/DL Urine Color YELLOW Urine Clarity CLEAR Urine pH 5.5 5-9 Urine Specific [place] >=1.030 1.016-1.022 Urine Protein 2+ H NEGATIVE Urine Glucose (UA) NEGATIVE NEGATIVE Urine Ketones NEGATIVE NEGATIVE Urine Nitrite NEGATIVE NEGATIVE Urine Bilirubin NEGATIVE NEGATIVE Urine Urobilinogen 0.2 < = 1.0 MG/DL Urine Leukocyte Esterase TRACE H NEGATIVE Urine RBC (Auto) TRACE-I H NEGATIVE Urine RBC 5-10 H /HPF Urine WBC 0-2 /HPF Urine Squamous Epithelial Cells RARE /HPF Urine Crystals NONE /LPF Urine Bacteria TRACE /HPF Urine Casts NONE /LPF Urine Mucus NEGATIVE /LPF Urine Culture Indicated NO Bedside Blood Gas pH (LAB) 7.347 7.310-7.410 Bedside Blood Gas pCO2 (LAB) 55.0 H 41.0-51.0 mmHg Bedside Blood Gas pO2 (LAB) 118 H 80-105 mmHg Bedside Blood Gas HCO3 (LAB) 30.1 H 23.0-28.0 mmol/L POC Blood Gas Total CO2 Calc 32 H 24-29 mmol/L Bedside Bl Gas O2 Saturation (Calc) 98 95-98 % Bedside Arterial Blood Base Excess 4 H -2-3 mmol/L Influenza Type A (RT-PCR) Not Detected Not Detecte Influenza Type B (RT-PCR) Not Detected Not Detecte SARS-CoV-2 RNA (RT-PCR) Not Detected Not Detecte My Orders Orders - PEPITO JOHN Ed Iv/Invasive Line Start (05/31/22 09:45) Ns Iv 1000 Ml (Sodium Chloride 0.9%) (05/31/22 09:45) Albuterol/Ipra Inhalation Soln (Duoneb I (05/31/22 09:45) Methylprednisolone Sod Succ (Solu-Medrol (05/31/22 09:45) Chest 1 View, Ap/Pa Only (05/31/22 09:45) Svn Small Volume Nebulizer (05/31/22 09:45) Cbc With Automated Diff (05/31/22:45) Comprehensive Metabolic Panel (05/31/22 09:45) Blood Culture (05/31/22 09:45) Sputum Culture (05/31/22 09:45) Urinalysis (05/31/22:45) Urine Culture (05/31/22:45) Protime With Inr (05/31/22 09:45) Partial Thromboplastin Time (05/31/22 09:45) Ed Iv/Invasive Line Start (05/31/22 09:45) Ed Iv/Invasive Line Start (05/31/22 09:45) Ekg Tracing (05/31/22 09:45) Troponin I Aries (05/31/22 09:45) Vital Signs Adult Sepsis Patie Q15M (05/31/22 09:45) O2 (05/31/22 09:45) Remove Rings In Anticipation O (05/31/22 09:45) Lactic Acid Analyzer (05/31/22 09:45) Cefepime Injection (Maxipime Injection) (05/31/22 09:45) Bnp Aries (05/31/22 09:45) Hs C Reactive Protein (05/31/22 09:45) Covid 19 Inhouse Test (05/31/22 09:45) Influenza A And B By Pcr (05/31/22 09:45) Manual Differential (05/31/22 09:50) Ct Abd/Pelv W (Appendicitis) (05/31/22 11:10) Fentanyl Inj (Sublimaze Injection) (05/31/22 11:15) Iohexol Injection (Omnipaque 350 Mg/Ml 1 (05/31/22 11:30) Received Contrast (Hold Metformin- Contr (05/31/22 11:30) Sodium Chloride Flush (Catheter Flush Sy (05/31/22 11:30) Ns (Ivpb) (Sodium Chloride 0.9% Ivpb Bag (05/31/22 11:30) Atropine Injection (Atropine Injection) (05/31/22 11:45) Catheter(Urinary) Insert & Ass 03,15 (05/31/22 12:00) Atropine Injection (Atropine Injection) (05/31/22 13:45) Ed Admission (Communication) (05/31/22 14:23) Medications Given in ED Current Medications Medications Dose Ordered Sig/Jimi Route Start Time Stop Time Status Last Admin Dose Admin Albuterol/ Ipratropium 3 ml ONCE ONCE INH 05/31/22 09:45 05/31/22 09:50 DC 05/31/22 10:16 3 ML Atropine Sulfate 0.5 mg ONCE ONCE IV 05/31/22 11:45 05/31/22 11:46 DC 05/31/22 11:46 0.5 MG Cefepime HCl 1000 mg/Sodium Chloride 50 ml @ 100 mls/hr ONCE ONCE IV 05/31/22 09:45 05/31/22 10:14 DC 05/31/22 11:46 100 MLS/HR Iohexol 100 ml ONCE ONCE IV 05/31/22 11:30 05/31/22 11:31 DC 05/31/22 11:24 78 ML Sodium Chloride 10 ml NEEDED PRN IV 05/31/22 11:30 05/31/22 11:24 10 ML Sodium Chloride 1,000 ml @ 0 mls/hr Q0M ONCE IV 05/31/22 09:45 05/31/22 09:50 DC 05/31/22 10:06 0 MLS/HR Vital Signs/I&O 05/31/22 05/31/22 09:42 10:16 Temp 36.2 Pulse 76 60 Resp 36 18 B/P (MAP) 150/97 (114) Pulse Ox 97 99 O2 Delivery Non Rebreather O2 Flow Rate 6.00 40.00 Capillary Refill : Progress Note : Time: 09:51 Progress Note Plan due to septic work-up, ABG and probably put her on BiPAP/CPAP. Swabs for COVID and flu. BNP, EKG and troponin, chest x-ray. We will get some x-rays of her hips since she is complaining of pain there. If these are unrevealing will consider a CT of her abdomen and pelvis. We will see what urinalysis shows first. Her abdomen is nontender, nonsurgical. ECG Initial ECG Impression Date: May 31, 2022 Initial ECG Impression Time: 11:49 Initial ECG Rate: 69 Initial ECG Rhythm: Normal Sinus Initial ECG Intervals: Normal Initial ECG Impression: Normal, Nonspecific Changes Comment Left bundle branch block without ST elevation or depression. Diagnostic Imaging Diagonstic Imaging: Xray Plain Films/CT/US/NM/MRI: chest Comments [facility] [place], [place] NAME: JOHANNYLUCITA [employer] REC#: [id number] PT STATUS: REG ER : 1940 PHYSICIAN: PEPITO JOHN MD ADMIT DATE: 05/31/22/ER Signed Date of Exam:05/31/22 CHEST 1 VIEW, AP/PA ONLY EXAMINATION: Chest 1 view HISTORY: Shortness of breath COMPARISON: 12/29/2021 FINDINGS: Stable enlargement of the cardiac silhouette. Right-sided cardiac device is unchanged. There are patchy interstitial and airspace opacities seen throughout both lungs. Trace right pleural effusion. No pneumothorax. The osseous structures are intact. IMPRESSION: 1. Cardiomegaly with patchy interstitial and airspace opacities seen throughout both lungs. Trace right pleural effusion. Findings can be seen with pulmonary edema or pneumonia. Dictated by: Dictated on workstation # [id number] Dict: 05/31/22 1115 Trans: 05/31/22 1148 [facility] [id number] Interpreted by: JESSICA BULL DO Electronically signed by: JESSICA BULL DO 05/31/22 1148 Reviewed: Reviewed by Me Diagonstic Imaging: CT Plain Films/CT/US/NM/MRI: abdomen, pelvis Comments [facility] [place], [place] NAME: LUCITA ORLANDO [employer] REC#: [id number] PT STATUS: REG ER : 1940 PHYSICIAN: PEPITO JOHN MD ADMIT DATE: 05/31/22/ER Signed Date of Exam:05/31/22 CT ABD/PELV W (APPENDICITIS) PROCEDURE: CT abdomen and pelvis with contrast, rule out appendicitis. TECHNIQUE: Multiple contiguous axial images were obtained through the abdomen and pelvis after the administration of intravenous contrast. All CT scans use one or more of the following dose optimizing techniques: automated exposure control, MA and/or KvP adjustment based on patient size and exam type or iterative reconstruction. DATE: May 31, 2022. COMPARISON: CT pelvis December 29, 2021. CT abdomen and pelvis April 08, 2021. INDICATION: 82-year-old female, right lower quadrant abdominal pain. FINDINGS: There is an incompletely imaged at least moderate size right pleural effusion and a small left pleural effusion. There are predominantly linear opacities in the right middle lobe and right lower lobe which do not enhance to specifically diagnose atelectasis although this is still considered. The heart is enlarged. There is no identified pericardial effusion. There are coronary artery calcifications and additional areas of atherosclerotic disease. The liver is unremarkable in size and contour. There is altered attenuation in the left lobe of liver most notably adjacent to the ligamentum teres. This may reflect a perfusion related phenomenon. There is no identified focal concerning liver lesion. The main, right, and left portal veins appear patent. The gallbladder is surgically absent. There is no identified biliary ductal dilation. The main pancreatic duct is not grossly dilated. Evaluation of the pancreatic parenchyma is unremarkable. The spleen is normal in size. There is a left adrenal nodule on axial image 36 which is indeterminate on postcontrast CT with measurement of 12 mm. There is ozfc-pi-[id number] atrophy of the right kidney and mild atrophy of the left kidney. There is no identified concerning renal mass. The urinary collecting systems are not distended. There is no identified renal or ureteral stone. There is a LEDESMA catheter within the urinary bladder which is collapsed and otherwise not well evaluated. There are calcified intrauterine lesions likely reflecting degenerating uterine leiomyomas with the largest on axial image 119 measuring approximately 5.3 x 5.2 cm in size. There is mild diverticulosis without evidence of acute diverticulitis. There is mucosal enhancement and wall thickening of the sigmoid colon on axial image 132 and adjacent sequential images. There is a small amount of free pelvic fluid. There is no identified focal well-demarcated drainable fluid collection or abscess. There is no identified free intraperitoneal air. There is no identified abnormally enlarged lymph node in the abdomen or pelvis which meets CT size criteria for adenopathy. 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 There are mild bilateral sacral degenerative changes. There are multilevel advanced degenerative changes of the spine. There is grade 1 anterolisthesis of L4 on L5 relating to facet arthropathy. There is no identified acute bony abnormality. IMPRESSION: CT ABDOMEN AND PELVIS. 1. Mucosal enhancement and mild wall thickening of mid sigmoid colon likely reflecting a nonspecific colitis. 2. Very small amount of free pelvic fluid. 3. Probable intrauterine calcified leiomyomas. 4. Incompletely imaged at least moderate right and small left pleural effusions. Dictated by: Dictated on workstation # [id number] Dict: 05/31/22 1136 Trans: 05/31/22 1148 CV [id number] Interpreted by: KATH VARGHESE MD Electronically signed by: KATH VARGHESE MD 05/31/22 1148 Reviewed: Reviewed by Me Departure Communication (Admissions) Time/Spoke to Admitting Phy: 12:14 Discussed the case with Dr. Williamson agrees to take the patient to the ICU. She agrees to do queued orders. Impression Primary Impression: PNA (pneumonia) Qualified Codes: J18.9 - Pneumonia, unspecified organism Additional Impressions: Colitis Acute and chronic respiratory failure with hypoxia Disposition: ADMITTED INPATIENT Condition: Stable Admissions Decision to Admit Reason: Admit from ER (General) Decision to Admit/Date: May 31, 2022 Time/Decision to Admit Time: 12:10 Departure-Patient Inst. Referrals: JUSTIN JOHNSON MD (PCP/Family) Primary Care Physician PEPITO JOHN May 31, 2022 09:50
[2022-05-31 10:02] LABS: BASOPHILS # (AUTO) 0.1 10^3/uL (0.0-0.1); BASOPHILS % (AUTO) 1 % (0-10); EOSINOPHILS # (AUTO) 0.5 10^3/uL (0.0-0.3); EOSINOPHILS % (AUTO) 4 % (0-10); HEMATOCRIT 34 % (35-52); HEMOGLOBIN 10.6 g/dL (11.5-16.0); LYMPHOCYTES # (AUTO) 0.8 10^3/uL (1.0-4.0); LYMPHOCYTES % (AUTO) 6 % (12-44); MEAN CORPUSCULAR HEMOGLOBIN 28 pg (25-34); MEAN CORPUSCULAR HGB CONC 32 g/dL (32-36); MEAN CORPUSCULAR VOLUME 90 fL (80-99); MEAN PLATELET VOLUME 10.7 fL (9.0-12.2); MONOCYTES # (AUTO) 0.6 10^3/uL (0.0-1.0); MONOCYTES % (AUTO) 5 % (0-12); NEUTROPHILS # (AUTO) 10.5 10^3/uL (1.8-7.8); NEUTROPHILS % (AUTO) 84 % (42-75); PLATELET COUNT 336 10^3/uL (130-400); WHITE BLOOD COUNT 12.6 10^3/uL (4.3-11.0)
[2022-05-31 10:07] LABS: BILIRUBIN,URINE NEGATIVE (NEGATIVE); CLARITY,URINE CLEAR; COLOR,URINE YELLOW; GLUCOSE, URINE (UA) NEGATIVE (NEGATIVE); KETONES,URINE NEGATIVE (NEGATIVE); LEUKOCYTE ESTERASE ,URINE TRACE (NEGATIVE); NITRITE,URINE NEGATIVE (NEGATIVE); PH,URINE 5.5 (5-9); PROTEIN,URINE 2+ (NEGATIVE)
[2022-05-31 10:16] LABS: ALBUMIN 3.9 GM/DL (3.2-4.5); POTASSIUM 4.4 MMOL/L (3.6-5.0)
[2022-05-31 10:17] LABS: CALCIUM 9.5 MG/DL (8.5-10.1)
[2022-05-31 10:18] LABS: TOTAL PROTEIN 6.9 GM/DL (6.4-8.2)
[2022-05-31 10:19] LABS: INR 1.4 (0.8-1.4); PROTHROMBIN TIME PATIENT 17.6 SEC (12.2-14.7)
[2022-05-31 10:20] LABS: BILIRUBIN,TOTAL 1.4 MG/DL (0.1-1.0)
[2022-05-31 10:22] LABS: CREATININE SERUM 0.76 MG/DL (0.60-1.30)
[2022-05-31 10:23] LABS: BACTERIA,URINE TRACE /HPF; SQUAMOUS EPITHELIAL CELL,UR RARE /HPF; WBC,URINE 0-2 /HPF
[2022-05-31 10:39] LABS: ANISOCYTOSIS SLIGHT; BAND NEUTROPHILS 2 %; BASOPHILS % (MANUAL) 2 %; ELLIPT/OVALOCYTES SLIGHT; EOSINOPHILS % (MANUAL) 2 %; LYMPHOCYTES % (MANUAL) 9 %; MONOCYTES % (MANUAL) 5 %; NEUTROPHILS % (MANUAL) 80 %
--- NOTE | 2022-05-31 11:23 | Diagnostic Imaging Report ---
EXAMINATION: Chest 1 view HISTORY: Shortness of breath COMPARISON: 12/29/2021 FINDINGS: Stable enlargement of the cardiac silhouette. Right-sided cardiac device is unchanged. There are patchy interstitial and airspace opacities seen throughout both lungs. Trace right pleural effusion. No pneumothorax. The osseous structures are intact. IMPRESSION: 1. Cardiomegaly with patchy interstitial and airspace opacities seen throughout both lungs. Trace right pleural effusion. Findings can be seen with pulmonary edema or pneumonia. Dictated by: Dictated on workstation # [id number]
[2022-05-31] MEDS ORDERED: NS 100 ML (IVPB) BAG IV ONE (11:30)
[2022-05-31] MEDS ORDERED: HOLD METFORMIN - RECEIVED CONTRAST 20 ML VIAL IV SCH (11:30)
[2022-05-31] MEDS ORDERED: CATHETER FLUSH 10 ML SYR IV PRN (11:30)
[2022-05-31] MEDS ORDERED: IOHEXOL 350 MG/ML 100 ML (OMNIPAQUE 350) VIAL IV ONE (11:30)
[2022-05-31] MEDS ORDERED: ATROPINE INJ 0.4 MG/ML SDV IV ONE (11:45)
[2022-05-31] MEDS: fentaNYL INJ 100 MCG/2 ML AMP IVP ONE ×2 (11:46→11:56)
--- NOTE | 2022-05-31 11:47 | Diagnostic Imaging Report ---
PROCEDURE: CT abdomen and pelvis with contrast, rule out appendicitis. TECHNIQUE: Multiple contiguous axial images were obtained through the abdomen and pelvis after the administration of intravenous contrast. All CT scans use one or more of the following dose optimizing techniques: automated exposure control, MA and/or KvP adjustment based on patient size and exam type or iterative reconstruction. DATE: May 31, 2022. COMPARISON: CT pelvis December 29, 2021. CT abdomen and pelvis April 08, 2021. INDICATION: 82-year-old female, right lower quadrant abdominal pain. FINDINGS: There is an incompletely imaged at least moderate size right pleural effusion and a small left pleural effusion. There are predominantly linear opacities in the right middle lobe and right lower lobe which do not enhance to specifically diagnose atelectasis although this is still considered. The heart is enlarged. There is no identified pericardial effusion. There are coronary artery calcifications and additional areas of atherosclerotic disease. The liver is unremarkable in size and contour. There is altered attenuation in the left lobe of liver most notably adjacent to the ligamentum teres. This may reflect a perfusion related phenomenon. There is no identified focal concerning liver lesion. The main, right, and left portal veins appear patent. The gallbladder is surgically absent. There is no identified biliary ductal dilation. The main pancreatic duct is not grossly dilated. Evaluation of the pancreatic parenchyma is unremarkable. The spleen is normal in size. There is a left adrenal nodule on axial image 36 which is indeterminate on postcontrast CT with measurement of 12 mm. There is [id number] atrophy of the right kidney and mild atrophy of the left kidney. There is no identified concerning renal mass. The urinary collecting systems are not distended. There is no identified renal or ureteral stone. There is a LEDESMA catheter within the urinary bladder which is collapsed and otherwise not well evaluated. There are calcified intrauterine lesions likely reflecting degenerating uterine leiomyomas with the largest on axial image 119 measuring approximately 5.3 x 5.2 cm in size. There is mild diverticulosis without evidence of acute diverticulitis. There is mucosal enhancement and wall thickening of the sigmoid colon on axial image 132 and adjacent sequential images. There is a small amount of free pelvic fluid. There is no identified focal well-demarcated drainable fluid collection or abscess. There is no identified free intraperitoneal air. There is no identified abnormally enlarged lymph node in the abdomen or pelvis which meets CT size criteria for adenopathy. 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 There are mild bilateral sacral degenerative changes. There are multilevel advanced degenerative changes of the spine. There is grade 1 anterolisthesis of L4 on L5 relating to facet arthropathy. There is no identified acute bony abnormality. IMPRESSION: CT ABDOMEN AND PELVIS. 1. Mucosal enhancement and mild wall thickening of mid sigmoid colon likely reflecting a nonspecific colitis. 2. Very small amount of free pelvic fluid. 3. Probable intrauterine calcified leiomyomas. 4. Incompletely imaged at least moderate right and small left pleural effusions. Dictated by: Dictated on workstation # [id number]
[2022-05-31] MEDS ORDERED: ATROPINE INJ 0.4 MG/ML SDV IV PRN (13:45)
--- NOTE | 2022-05-31 14:25 | History & Physical-Hospitalist ---
History of Present Illness HPI/Chief Complaint Pt is an 82 year old female with PMH HTN, HLD, AFib, CVA, COPD, HFpEF, advanced dementia who [facility]. She reportedly was hypoxic on her baseline oxygen into the mid 80s. EMS was summoned and had difficulty getting her oxygen into the 90s. They placed her on a nonrebreather and she was able to sustain in the low 90s. She was quite tachypneic though in the emergency department placed her on BiPAP. Chest x-ray revealed questionable pneumonia versus edema. She was found to have a leukocytosis though and was admitted for further management. She is unable to give me any history and has known advanced dementia. I did take care of her roughly a month ago and her mentation is worse than her baseline from when she discharged. Exam Limitations: clinical condition Date Seen 05/31/22 Time Seen by a Provider: 14:17 Attending Physician Jason Boudreaux MD PCP Admitting Physician: Attending Physician: Referring Physician Date of Admission Home Medications & Allergies Home Medications Reviewed patient Home Medication Reconciliation performed by pharmacy medication reconciliations electrician technician and/or nursing. Patients Allergies have been reviewed. Allergies Allergies Coded Allergies doxycycline (Unverified Allergy, Mild, 11/26/17) Past Qiqfynd-Rjuvwo-Krujxd Hx Patient Social History Tobacco Use?: No Use of E-Cig and/or Vaping dev: No Substance use?: No Alcohol Use?: No Immunizations Up To Date Date of Influenza Vaccine: Jun 24, 2020 First/Initial COVID19 Vaccinat: UNK Second COVID19 Vaccination Ronald: UNK Tetanus Booster (TDap): Unknown Hepatitis A: Yes Hepatitis B: Yes Date of Pneumonia Vaccine: Oct 30, 2016 Seasonal Allergies Seasonal Allergies: Yes Current Status Advance Directives: No Communicates: Verbally Primary Language: [place] Leonean Preferred Spoken Language: [place]an Is interpretation needed?: No Past Medical History Surgeries: Section, Pacemaker, Tonsillectomy Asthma, Sleep Apnea, COPD Currently Using CPAP: No Atrial Fibrillation, High Cholesterol, Hypertension, Valvular Heart Disease Dementia, Stroke Sexually Transmitted Disease: No HIV/AIDS: No Renal Failure Gastroesophageal Reflux, Chronic Constipation Arthritis, Chronic Back Pain Glaucoma Loss of Vision: Bilateral Hearing Impairment: Hard of Hearing Anxiety, Depression Blood Disorders: No Adverse Reaction/Blood Tranf: No (N/A) Family Medical History Heart Disease, COPD, Renal Disease, Other Conditions/Hx Review of Systems ROS-Unable to Obtain: clinical condition Constitutional: see HPI Physical Exam Physical Exam Vital Signs Vital Signs - First Documented 05/31/22 05/31/22 09:42 14:40 Temp 36.2 Pulse 76 Resp 36 B/P (MAP) 150/97 (114) Pulse Ox 97 O2 Delivery Non Rebreather O2 Flow Rate 6.00 FiO2 40 Capillary Refill : Less Than 3 Seconds Height, Weight, BMI Height: 5'4.00" Weight: 182lbs. 0.6oz. 77.349951ad; 25.00 BMI Method:Stated General Appearance: Chronically ill, Mild Distress HEENT: PERRL/EOMI, Moist Mucous Membranes; No Scleral Icterus (L), No Scleral Icterus (R) Neck: Normal Inspection, Supple Respiratory: Decreased Breath Sounds; No Wheezing; Other (on BiPAP) Cardiovascular: Regular Rate, Rhythm, No JVD, No Murmur Gastrointestinal: Normal Bowel Sounds, Non Tender, Soft Genital/Rectal: Other (catheter in place) Extremity: Normal Capillary Refill, No Calf Tenderness, No Pedal Edema Neurologic/Psychiatric: Alert, Disoriented Skin: Normal Color, Warm/Dry Results Results/Procedures Labs Laboratory Tests 06/02/22 04:50 06/03/22 04:42 Patient resulted labs reviewed. Imaging: Reviewed Imaging Report Imaging [facility], [place] NAME: LUCITA ORLANDO [facility] REC#: [id number] PT STATUS: REG ER : 1940 PHYSICIAN: PEPITO JOHN MD ADMIT DATE: 05/31/22/ER Signed Date of Exam:05/31/22 CHEST 1 VIEW, AP/PA ONLY EXAMINATION: Chest 1 view HISTORY: Shortness of breath COMPARISON: 12/29/2021 FINDINGS: Stable enlargement of the cardiac silhouette. Right-sided cardiac device is unchanged. There are patchy interstitial and airspace opacities seen throughout both lungs. Trace right pleural effusion. No pneumothorax. The osseous structures are intact. IMPRESSION: 1. Cardiomegaly with patchy interstitial and airspace opacities seen throughout both lungs. Trace right pleural effusion. Findings can be seen with pulmonary edema or pneumonia. Dictated by: Dictated on workstation # [id number] Dict: 05/31/22 1115 Trans: 05/31/22 1148 [facility] [id number] Interpreted by: JESSICA BULL DO Electronically signed by: JESSICA BULL DO 05/31/22 1148 [facility], [place] NAME: LUCITA ORLANDO [facility] REC#: [id number] PT STATUS: REG ER : 1940 PHYSICIAN: PEPITO JOHN MD ADMIT DATE: 05/31/22/ER Signed Date of Exam:05/31/22 CT ABD/PELV W (APPENDICITIS) PROCEDURE: CT abdomen and pelvis with contrast, rule out appendicitis. TECHNIQUE: Multiple contiguous axial images were obtained through the abdomen and pelvis after the administration of intravenous contrast. All CT scans use one or more of the following dose optimizing techniques: automated exposure control, MA and/or KvP adjustment based on patient size and exam type or iterative reconstruction. DATE: May 31, 2022. COMPARISON: CT pelvis December 29, 2021. CT abdomen and pelvis April 08, 2021. INDICATION: 82-year-old female, right lower quadrant abdominal pain. FINDINGS: There is an incompletely imaged at least moderate size right pleural effusion and a small left pleural effusion. There are predominantly linear opacities in the right middle lobe and right lower lobe which do not enhance to specifically diagnose atelectasis although this is still considered. The heart is enlarged. There is no identified pericardial effusion. There are coronary artery calcifications and additional areas of atherosclerotic disease. The liver is unremarkable in size and contour. There is altered attenuation in the left lobe of liver most notably adjacent to the ligamentum teres. This may reflect a perfusion related phenomenon. There is no identified focal concerning liver lesion. The main, right, and left portal veins appear patent. The gallbladder is surgically absent. There is no identified biliary ductal dilation. The main pancreatic duct is not grossly dilated. Evaluation of the pancreatic parenchyma is unremarkable. The spleen is normal in size. There is a left adrenal nodule on axial image 36 which is indeterminate on postcontrast CT with measurement of 12 mm. There is [id number]-uq-[id number] atrophy of the right kidney and mild atrophy of the left kidney. There is no identified concerning renal mass. The urinary collecting systems are not distended. There is no identified renal or ureteral stone. There is a LEDESMA catheter within the urinary bladder which is collapsed and otherwise not well evaluated. There are calcified intrauterine lesions likely reflecting degenerating uterine leiomyomas with the largest on axial image 119 measuring approximately 5.3 x 5.2 cm in size. There is mild diverticulosis without evidence of acute diverticulitis. There is mucosal enhancement and wall thickening of the sigmoid colon on axial image 132 and adjacent sequential images. There is a small amount of free pelvic fluid. There is no identified focal well-demarcated drainable fluid collection or abscess. There is no identified free intraperitoneal air. There is no identified abnormally enlarged lymph node in the abdomen or pelvis which meets CT size criteria for adenopathy. 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 There are mild bilateral sacral degenerative changes. There are multilevel advanced degenerative changes of the spine. There is grade 1 anterolisthesis of L4 on L5 relating to facet arthropathy. There is no identified acute bony abnormality. IMPRESSION: CT ABDOMEN AND PELVIS. 1. Mucosal enhancement and mild wall thickening of mid sigmoid colon likely reflecting a nonspecific colitis. 2. Very small amount of free pelvic fluid. 3. Probable intrauterine calcified leiomyomas. 4. Incompletely imaged at least moderate right and small left pleural effusions. Dictated by: Dictated on workstation # [id number] Dict: 05/31/22 1136 Trans: 05/31/22 1148 [facility] [id number] Interpreted by: KATH VARGHESE MD Electronically signed by: KATH VARGHESE MD 05/31/22 1148 Assessment/Plan Admission Diagnosis Acute hypoxic respiratory failure Admission Status: Inpatient Order (span 2 midnights) Reason for Inpatient Admission: see below Assessment and Plan Acute on chronic respiratory failure with hypoxia and hypercapnia COPD with acute exacerbation and LRTI Sepsis due to Pneumonia CXR with questionable pneumonia TeleICU consulted Steroids Continue abx MAT protocol Started on BiPAP in ER and will continue bradycardia HR down into the 20s in the ER but 60-70s while I was at bedside has known a fib with pacemaker Given atropoine x1 Monitor on telemetry as resolved now Colitis Continue abx as above Consider surgery referral for colonoscopy as an outpatient if she improves HTN HFpEF AFib Anxiety and depression Advanced dementia Glaucoma Continue home meds as able Diagnosis/Problems Diagnosis/Problems (1) Bradycardia (2) Acute exacerbation of chronic obstructive pulmonary disease (COPD) Status: Acute (3) Sepsis Status: Acute (4) Primary hypertension (5) Mixed hyperlipidemia (6) History of cerebrovascular accident with residual deficit Status: Chronic (7) Permanent atrial fibrillation Status: Chronic (8) Acute on chronic respiratory failure with hypoxemia Status: Acute (9) Colitis Status: Acute (10) PNA (pneumonia) Status: Acute Qualifiers: Pneumonia type: due to unspecified organism Laterality: bilateral Lung location: unspecified part of lung Qualified Codes: J18.9 - Pneumonia, unspecified organism (11) Acute and chronic respiratory failure with hypoxia Status: Acute (12) Dementia Status: Acute (13) Cardiac pacemaker in situ ABRAHAM CIFUENTES MD May 31, 2022 14:25
[2022-05-31] MEDS ORDERED: CEFEPIME INJECTION 1,000 MG in NS (IVPB) 50 ML IV SCH (15:00)
--- NOTE | 2022-05-31 15:13 | Physical Therapy Progress Note ---
Therapy Progress Note Order for PT evaluation received. Patient is on bipap. Nurse states that patient just got to the ICU and they were getting patient set up with stuff and that the morning would be better to start PT. Will check back in the morning. JOSIE HAWKINS PT May 31, 2022 15:13
[2022-05-31] MEDS: NS IV 1000 ML 1,000 ML IV SCH ×2 (15:17→22:16)
--- NOTE | 2022-05-31 15:28 | Occ Therapy Progress Note ---
Therapy Progress Note OT orders received and chart reviewed. OT attempted evaluation, but pt is on bipap and nurse indicates pt just got to room and not appropriate to be seen for therapy at this time. OT talked with Nurse at [facility] who indicate pt is typically able to transfer with 1 person assistance, but has total assistance with all ADLS. Pt recently hospitalized (04/14/22), and this OT visited with pt's son during that hospital stay. Per son report a couple months ago, pt required total assistance with all ADLs when she was home, used a w/c for mobility around the house, and required mod-max A with all transfers. After her last hospital stay, pt discharged to [place] where she has continued to have assistance with all ADLS and transfers. Pt is currently at her PLOF, thus no skilled OT services are indicated at this time. D/C from OT. YANELI JONES OT May 31, 2022 15:28
[2022-05-31] MEDS ORDERED: RT-ALBUTEROL SULF 2.5 MG/3 ML PRE-MIX VIAL INH SCH (18:00)
[2022-05-31] MEDS: methylPREDNISolone 125 MG (Solu-MEDROL) VIAL IV SCH ×2 (18:05→23:33)
--- NOTE | 2022-05-31 18:13 | Tele-ICU Consult ---
History of Present Illness History of Present Illness Date Seen by Provider: May 31, 2022 Time Seen by Provider: 18:13 Date of Admission (Tele-ICU Physician , consultation) Available chart/ vitals / labs / Images reviewed H&P is from ER notes Patient's information available about PMH, Shx, Fhx allergy reviewed inEMR. ROS as per chart and RN report Now in ICU, hemodynamically stable Video assessment done using teleICU camera, rest of exam as per RN Discussed with RN. Consultants: Hospital course: (05/31) 82F admitted with PNA, COPD exac, CHF, hypoxic, on CPAP 8 40 % rr 24 txv 400 A/P Acute on chronic respiratory failure with hypoxia and hypercapnia - - cont on CPAP 8 40 % rr 24 txv 400 AECOPD/ LRTI - nebs -IV steroiuds - cefepime 05/31 Sepsis - recived IVF and abx - vital stable bradycardia in ER to 20s - given atropine x1 ( with h/o a fib with pacemaker - stable now - monitor nonspecific colitis on CT 05/31 HFpEF - ECHO 03/2022 - EF 45% severe aortic stenosis - monitor , as per cads note prior - -not a candidate for any intervvention Pulm HTN - echo 2RVSP 76 Permanent atrial fibrillation - rate controlled - 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 Discussed with RN to reach out if any questions or concerns A total of 31 minutes of critical care time was devoted to this patient today, required to treat and/or prevent further deterioration of critical care condition ( as above ) . Allergies and Home Medications Allergies Coded Allergies: doxycycline (Unverified Allergy, Mild, 11/26/17) Home Medications ALPRAZolam 0.25 Mg Tablet, 0.25 MG PO HS Prescribed by: ABRAHAM CIFUENTES on 04/20/22 1114 Albuterol Sulfate 6.7 Gm Hfa.aer.ad, 2 PUFF INH Q6H PRN for SHORTNESS OF BREATH, (Reported) Amitriptyline HCl 25 Mg Tablet, 25 MG PO HS, (Reported) Amlodipine Besylate 5 Mg Tablet, 5 MG PO DAILY, (Reported) Apixaban 5 Mg Tablet, 5 MG PO BID, (Reported) Carvedilol 3.125 Mg Tablet, 3.125 MG PO BID, (Reported) Cholecalciferol (Vitamin D3) 25 Mcg (1000 Unit) Capsule, 25 MCG PO DAILY, (Reported) Citalopram Hydrobromide 10 Mg Tablet, 10 MG PO HS, (Reported) LAST FILLED 01-09-2022 #30/30 DAY SUPPLY Fluticasone/Vilanterol 200 Mcg-25 Mcg/Dose Blst.w.dev, 1 EACH IH DAILY, (Reported) Furosemide 40 Mg Tablet, 60 MG PO DAILY, (Reported) TAKES 1 & (20MG) TABS Gabapentin 300 Mg Capsule, 300 MG PO TID, (Reported) Hydrocodone/Acetaminophen 5 Mg-325 Mg Tablet, 1 TAB PO Q6H PRN for PAIN-MODERATE (5-7) Prescribed by: ABRAHAM CIFUENTES on 04/20/22 1114 Latanoprost 2.5 Ml Drops, 1 DROP OU HS, (Reported) Lisinopril 5 Mg Tablet, 2.5 MG PO DAILY, (Reported) TAKES (5MG) TABLET Meloxicam 15 Mg Tablet, 15 MG PO 1400, (Reported) [place]-3 Fatty Acids/Fish Oil 684 Mg-1,200 Mg Capsule.dr, 1 EACH PO DAILY, (Reported) Ondansetron HCl 4 Mg Tablet, 4 MG PO Q6H PRN for NAUSEA/VOMITING-1ST LINE, (Reported) Potassium Chloride 20 Meq Tab.er.prt, 20 MEQ PO DAILY, (Reported) Pravastatin Sodium 10 Mg Tablet, 10 MG PO HS, (Reported) Ropinirole HCl 1 Mg Tablet, 1 MG PO HS, (Reported) Spironolactone 25 Mg Tablet, 12.5 MG PO DAILY, (Reported) TAKES OF A 25MG TAB Tramadol HCl 50 Mg Tablet, 50 MG PO BID Prescribed by: ABRAHAM CIFUENTES on 04/20/22 1114 Vit A/C/E/Zinc/Co 14320-226 Capsule, 1 CAP PO DAILY, (Reported) Past Medical/Social/Family Hx Patient Social History Tobacco Use?: No Use of E-Cig and/or Vaping dev: No Substance use?: No Alcohol Use?: No Pt stated abuse/neglect: No Immunizations Up To Date Influenza Vaccine Up-to-Date: No; Not Current First/Initial COVID19 Vaccinat: UNK Second COVID19 Vaccination Ronald: UNK Tetanus Booster (TDap): Unknown Hepatitis A: Yes Hepatitis B: Yes TB Skin Test: None Date of Pneumonia Vaccine: Oct 30, 2016 Current Status Advance Directives: Yes Advance Directive Location: Copy from prev record Communicates: Verbally Primary Language: Tajik Preferred Spoken Language: Tajik Is interpretation needed?: No Review of Systems Constitutional: see HPI Focused Exam Lactate Level 05/31/22 09:50: Lactic Acid Level 0.85 05/31/22 14:59: Lactic Acid Level 0.64 Height, Weight, BMI Height: 5'4.00" Weight: 182lbs. 0.6oz. 77.641414lz; 25.71 BMI Method:Stated Lactic Acid Level Laboratory Tests Test 05/31/22 14:59 Lactic Acid Level 0.64 MMOL/L (0.50-2.00) Exam Exam Patient acknowledged, consented, and participated in this virtual visit which was conducted using real time audio/video Vital Signs Date Time Temp Pulse Resp B/P (MAP) Pulse Ox O2 Delivery O2 Flow Rate FiO2 05/31/22 17:00 60 20 151/95 (113) 98 NIV Bilevel 40.00 05/31/22 16:00 60 21 122/67 (85) 98 NIV Bilevel 40.00 05/31/22 16:00 36.9 05/31/22 15:45 60 29 125/67 (86) 98 NIV Bilevel 40.00 05/31/22 15:30 60 25 122/66 (84) 98 NIV Bilevel 40.00 05/31/22 15:15 60 19 134/70 (91) 98 NIV Bilevel 40.00 05/31/22 15:07 64 05/31/22 15:00 67 24 96 40.00 05/31/22 15:00 75 24 156/81 (106) 96 NIV Bilevel 40.00 05/31/22 14:40 NIV Bilevel 40 05/31/22 14:24 75 20 158/107 96 NIV Bilevel 40.00 05/31/22 10:16 60 18 99 40.00 05/31/22 09:42 36.2 76 36 150/97 (114) 97 Non Rebreather 6.00 Height & Weight Height: 5'4.00" Weight: 182lbs. 0.6oz. 77.861814ee; 25.71 BMI Method:Stated General Appearance: No Apparent Distress, Chronically ill, Mild Distress HEENT: PERRL/EOMI, Moist Mucous Membranes; No Scleral Icterus (L), No Scleral Icterus (R) Neck: Normal Inspection, Supple Respiratory: Decreased Breath Sounds; No Wheezing; Other (on BiPAP) Cardiovascular: Regular Rate, Rhythm, No JVD, No Murmur Capillary Refill: Less Than 3 Seconds Gastrointestinal: normal bowel sounds, non tender, soft Extremity: Normal Capillary Refill, No Calf Tenderness, No Pedal Edema Neurologic/Psychiatric: Alert, Disoriented Skin: Normal Color, Warm/Dry Results Lab Laboratory Tests 05/31/22 09:50 Assessment/Plan Assessment/Plan 1 EHSAN FULTON MD May 31, 2022 18:13
[2022-05-31] MEDS: RT-ALBUTEROL/IPRATROPIUM 3 ML (DUONEB) VIAL IH SCH ×2 (18:55→22:15)
[2022-05-31] MEDS: CEFEPIME INJECTION 1,000 MG in NS (IVPB) 50 ML IV SCH (20:13)
[2022-06-01] VITALS (27 sets, daily range): BP systolic 86–176; BP diastolic 53–100
[2022-06-01] MEDS: RT-ALBUTEROL/IPRATROPIUM 3 ML (DUONEB) VIAL IH SCH ×6 (02:39→21:52)
[2022-06-01] MEDS ORDERED: NS IV 500 ML 500 ML IV PRN (03:30)
[2022-06-01] MEDS: CEFEPIME INJECTION 1,000 MG in NS (IVPB) 50 ML IV SCH ×3 (03:34→19:48)
[2022-06-01 04:49] LABS: BASOPHILS % (AUTO) 0 % (0-10); EOSINOPHILS % (AUTO) 0 % (0-10); HEMATOCRIT 32 % (35-52); LYMPHOCYTES # (AUTO) 0.8 10^3/uL (1.0-4.0); LYMPHOCYTES % (AUTO) 12 % (12-44); MEAN CORPUSCULAR HEMOGLOBIN 28 pg (25-34); MEAN CORPUSCULAR HGB CONC 31 g/dL (32-36); MEAN CORPUSCULAR VOLUME 89 fL (80-99); MEAN PLATELET VOLUME 10.8 fL (9.0-12.2); MONOCYTES # (AUTO) 0.1 10^3/uL (0.0-1.0); MONOCYTES % (AUTO) 2 % (0-12); NEUTROPHILS # (AUTO) 5.4 10^3/uL (1.8-7.8); NEUTROPHILS % (AUTO) 86 % (42-75); PLATELET COUNT 289 10^3/uL (130-400); WHITE BLOOD COUNT 6.3 10^3/uL (4.3-11.0)
[2022-06-01 05:02] LABS: ALBUMIN 3.6 GM/DL (3.2-4.5); POTASSIUM 3.9 MMOL/L (3.6-5.0)
[2022-06-01] MEDS: NS IV 1000 ML 1,000 ML IV SCH ×2 (05:02→11:16)
[2022-06-01 05:03] LABS: CALCIUM 9.2 MG/DL (8.5-10.1)
[2022-06-01 05:05] LABS: TOTAL PROTEIN 6.2 GM/DL (6.4-8.2)
[2022-06-01 05:06] LABS: BILIRUBIN,TOTAL 1.1 MG/DL (0.1-1.0)
[2022-06-01 05:08] LABS: CREATININE SERUM 0.71 MG/DL (0.60-1.30)
[2022-06-01 05:12] LABS: PHOSPHORUS 3.4 MG/DL (2.3-4.7)
[2022-06-01 05:13] LABS: MAGNESIUM 2.1 MG/DL (1.6-2.4)
[2022-06-01] MEDS: MAGNESIUM 1 GM/100 ML IVPB 100 ML IV SCH (05:16)
[2022-06-01] MEDS: POTASSIUM CL 10MEQ/50ML IVPB 50 ML IV SCH (05:16)
[2022-06-01] MEDS: KCL 20 MEQ TAB (K-DUR) PO SCH (05:17)
[2022-06-01] MEDS: methylPREDNISolone 125 MG (Solu-MEDROL) VIAL IV SCH (05:30)
--- NOTE | 2022-06-01 09:51 | Progress Note - Hospitalist ---
Subjective HPI/CC On Admission Date Seen by Provider: Jun 01, 2022 Pt is an 82 year old female with PMH HTN, HLD, AFib, CVA, COPD, HFpEF, advanced dementia who presented to the emergency department from a longterm due to hypoxia. She reportedly was hypoxic on her baseline oxygen into the mid 80s. EMS was summoned and had difficulty getting her oxygen into the 90s. They placed her on a nonrebreather and she was able to sustain in the low 90s. She was quite tachypneic though in the emergency department placed her on BiPAP. Chest x-ray revealed questionable pneumonia versus edema. She was found to have a leukocytosis though and was admitted for further management. She is unable to give me any history and has known advanced dementia. I did take care of her roughly a month ago and her mentation is worse than her baseline from when she discharged. Subjective/Events-last exam Pt laying in bed and yelling "hurry! Dad's coming!" when asked if I could help her she states "it might be a boy." She was unable to clarify further what this meant. RN reports off BiPAP since 7am. Focused Exam Lactate Level 05/31/22 14:59: Lactic Acid Level 0.64 Objective Exam Vital Signs Vital Signs Date Time Temp Pulse Resp B/P (MAP) Pulse Ox O2 Delivery O2 Flow Rate FiO2 06/03/22 12:00 94 Room Air 06/03/22 12:00 61 11 139/76 (97) 24.00 06/03/22 12:00 37.0 06/03/22 08:00 24 Capillary Refill : Less Than 3 Seconds General Appearance: Anxious, Chronically ill, Mild Distress Respiratory: Lungs Clear, No Respiratory Distress Cardiovascular: Regular Rate, Rhythm, No Murmur Neurologic/Psychiatric: Alert, Oriented x3 Results/Procedures Lab Laboratory Tests 06/03/22 04:42 Patient resulted labs reviewed. Imaging: Reviewed Imaging Report Assessment/Plan Assessment and Plan Assess & Plan/Chief Complaint Acute on chronic respiratory failure with hypoxia and hypercapnia COPD with acute exacerbation and LRTI Sepsis due to Pneumonia CXR with questionable pneumonia TeleICU consulted Steroids- switch to oral Continue abx MAT protocol Off BiPAP since this AM bradycardia- resolved Given atropoine x1 in ER Monitor on telemetry as resolved now Colitis Continue abx Consider surgery referral for colonoscopy as an outpatient if she improves HTN HFpEF AFib Anxiety and depression Advanced dementia Glaucoma Continue home meds as able Diagnosis/Problems Diagnosis/Problems (1) Bradycardia (2) Acute exacerbation of chronic obstructive pulmonary disease (COPD) Status: Acute (3) Sepsis Status: Acute (4) Primary hypertension (5) Mixed hyperlipidemia (6) History of cerebrovascular accident with residual deficit Status: Chronic (7) Permanent atrial fibrillation Status: Chronic (8) Acute on chronic respiratory failure with hypoxemia Status: Acute (9) Colitis Status: Acute (10) PNA (pneumonia) Status: Acute Qualifiers: Pneumonia type: due to unspecified organism Laterality: bilateral Lung location: unspecified part of lung Qualified Codes: J18.9 - Pneumonia, unspecified organism (11) Acute and chronic respiratory failure with hypoxia Status: Acute (12) Dementia Status: Acute (13) Cardiac pacemaker in situ ABRAHAM CIFUENTES MD Jun 01, 2022 09:50
--- NOTE | 2022-06-01 10:18 | Physical Therapy Evaluation ---
PT Evaluation-General Medical Diagnosis Admission Date May 31, 2022 at 14:23 Medical Diagnosis: respiratory failure Onset Date: May 31, 2022 Therapy Diagnosis Therapy Diagnosis: generalized weakness/debility Height/Weight Height (Feet): 5 Height (Inches): 4.00 Weight (Pounds): 182 Weight (Ounces): 0.6 Precautions Precautions/Isolations: Fall Prevention, Standard Precautions Referral Physician: Teri Reason for Referral: Evaluation/Treatment Medical History Pertinent Medical History: Atrial Fib, Arthritis, COPD, CVA, Dementia, GERD, HTN, Renal Insufficiency Current History EMS from [place] due to SOA and decreased SAO2 Reviewed History: Yes Social History Home: Custodial Prior Prior Level of Function SCALE: Activities may be completed with or without assistive devices. 8-Lpgkzkrmkw-ovaxcgp completes the activity by him/herself with no assistance from a helper. 5-Set-up or Clean-up Assistance-helper sets up or cleans up; patient completes activity. [place] assists only prior to or following the activity. 4-Supervision or Touching Assistance-helper provides verbal cues and/or touching/steadying and/or contact guard assistance as patient completes activity. Assistance may be provided throughout the activity or intermittently. 3-Partial/Moderate Assistance-helper does LESS THAN HALF the effort. [place] lifts, holds or supports trunk or limbs, but provides less than half the effort. 2-Substantial/Maximal Assistance-helper does MORE THAN HALF the effort. [place] lifts or holds trunk or limbs and provides more than half the effort. 5-Fawjzdwud-sfojdr does ALL the effort. Patient does none of the effort to complete the activity. Or, the assistance of 2 or more helpers is required for the patient to complete the activity. If activity was not attempted, code reason: 7-Patient Refused. 9-Not Applicable-not attempted and the patient did not perform the activity before the current illness, exacerbation or injury. 10-Not Attempted due to Environmental Limitations-(lack of equipment, weather restraints, etc.). 88-Not Attempted due to Medical Conditions or Safety Concerns. unable to determine due to patient's confusion PT Evaluation-Current Subjective Patient is screaming/yelling and is agitated. Objective Patient Orientation: Confused Attachments: Oxygen, Chavis Catheter ROM/Strength ROM Lower Extremities bilateral LE WFL Strength Lower Extremities NT due to patient's inability to follow simple direction Integumentary/Posture Bladder Incontinence: Chavis Cath Neuromuscular (Tone, Coordination, Reflexes) diminished with all Sensory Vision: Unable to Assess Hearing: Unable to Assess Transfers Roll Left to Right (QC): 1 Assessment/Needs Patient is currently not safe for OOB activity due to confusion and agitation. PT to address functional strength and mobility as tolerated by patient. 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 Goals Snf Goals PT Snf Goals Time Frame: Jun 17, 2022 Roll Left & Right (QC): 4 Sit to Lying (QC): 4 Lying-Sitting on Side/Bed(QC): 4 Sit to Stand (QC): 4 Chair/Ayh-pz-Bxkzs Xfer(QC): 4 Toilet Transfer (QC): 4 Walk 10 feet (QC): 4 Walk 50ft with 2 Turns (QC): 4 PT Plan Problem List Problem List: Activity Tolerance, Functional Strength, Safety, Balance, Gait, Transfer, Bed Mobility Treatment/Plan Treatment Plan: Continue Plan of Care Treatment Plan: Bed Mobility, Education, Functional Activity Katherine, Functional Strength, Gait, Safety, Therapeutic Exercise, Transfers Treatment Duration: Jun 17, 2022 Frequency: 5 times per week Estimated Hrs Per Day: .25 hour per day Time/GCodes Time In: 808 Time Out: 818 Total Billed Treatment Time: 10 Total Billed Treatment 1 visit EVModC 10 min CHRISTI BOYLE PT Jun 01, 2022 10:18
--- NOTE | 2022-06-01 10:54 | Tele-ICU Progress Note ---
Subjective Date Seen by a Provider: Jun 01, 2022 Time Seen by a Provider: 10:53 Subjective/Events-last exam (Tele-ICU Physician , Progress Note ) Available chart/ vitals / labs / Images reviewed Video assessment done using teleICU camera, rest of exam as per RN Discussed with RN Events overnight : Afebrile hemodynamically stable Respiratory - I/O = Drips: ns 150 Pressors- no Consultants: Hospital course: (05/31) 82F admitted with PNA, COPD exac, CHF, hypoxic, on CPAP 8 40 % rr 24 txv 400 A/P Acute on chronic respiratory failure with hypoxia and hypercapnia - - cont on CPAP 8 40 % rr 24 txv 400 - NC 2 l now AECOPD/ LRTI - nebs -IV steroiuds - changed to po 06/01 - cefepime 05/31 Sepsis - recived IVF and abx - vital stable bradycardia in ER to 20s - given atropine x1 ( with h/o a fib with pacemaker - stable now - monitor nonspecific colitis on CT 05/31 HFpEF - ECHO 03/2022 - EF 45% severe aortic stenosis - monitor , as per cads note prior - -not a candidate for any intervvention Pulm HTN - echo 2RVSP 76 - stop NS Permanent atrial fibrillation - rate controlled - 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 might need speach eval - stop IVF , give 1/2 ns to give H20 , will stop if can drink Effusion , plural R> L - monitor , decrease IVF Lines : , (Central Line Necessity Reviewed) Chavis: 05/31 OG: Nutrition: Analgesia: Anxiety/ delirium VTE Prophylaxis: Eliquis- TO RESUME PER PCP Stress Ulcer Prophylaxis: Plans in collaboration with bedside consultants and IM MDs. Discussed with RN to reach out if any questions or concerns A total of 22 minutes of critical care time was devoted to this patient today, required to treat and/or prevent further deterioration of critical care condition ( as above ) . Sepsis Event Evaluation Height, Weight, BMI Height: 5'4.00" Weight: 182lbs. 0.6oz. 77.642720sm; 26.06 BMI Method:Stated Focused Exam Lactate Level 05/31/22 09:50: Lactic Acid Level 0.85 05/31/22 14:59: Lactic Acid Level 0.64 Exam Exam Patient acknowledged, consented, and participated in this virtual visit which was conducted using real time audio/video Vital Signs Date Time Temp Pulse Resp B/P (MAP) Pulse Ox O2 Delivery O2 Flow Rate FiO2 06/01/22 10:30 Nasal Cannula 4.00 06/01/22 10:00 85 17 140/81 (100) 93 NIV Bilevel 40.00 06/01/22 09:00 96 151/77 (101) 93 NIV Bilevel 40.00 06/01/22 08:11 36.9 06/01/22 08:00 90 147/96 (113) 99 NIV Bilevel 40.00 06/01/22 08:00 99 NIV Bilevel 40 06/01/22 07:20 92 Nasal Cannula 3.00 06/01/22 07:00 72 06/01/22 07:00 86 32 99 NIV Bilevel 40.00 06/01/22 06:00 76 13 151/89 (117) 99 NIV Bilevel 40.00 06/01/22 05:00 80 38 142/94 (116) 98 NIV Bilevel 40.00 06/01/22 04:00 61 19 127/63 (89) 99 NIV Bilevel 40.00 06/01/22 03:57 99 NIV Bilevel 40 06/01/22 03:00 63 15 117/69 (93) 99 NIV Bilevel 40.00 06/01/22 02:39 64 26 99 40.00 06/01/22 02:00 61 34 118/71 (87) 98 NIV Bilevel 40.00 06/01/22 01:07 80 25 168/89 (114) 95 NIV Bilevel 40.00 06/01/22 01:00 66 06/01/22 00:00 67 11 128/78 (95) 99 NIV Bilevel 40.00 05/31/22 23:38 99 NIV Bilevel 40 05/31/22 23:12 77 26 98 40.00 05/31/22 23:00 62 24 123/67 (88) 98 NIV Bilevel 40.00 05/31/22 22:06 61 36 132/76 (94) 98 NIV Bilevel 40.00 05/31/22 21:00 60 25 119/58 (78) 98 NIV Bilevel 40.00 05/31/22 20:00 60 28 143/72 (98) 98 NIV Bilevel 40.00 05/31/22 20:00 99 NIV Bilevel 40 05/31/22 19:00 74 168/87 (119) 98 NIV Bilevel 40.00 05/31/22 19:00 74 05/31/22 18:56 74 26 99 40.00 05/31/22 17:00 60 20 151/95 (113) 98 NIV Bilevel 40.00 05/31/22 16:00 60 21 122/67 (85) 98 NIV Bilevel 40.00 05/31/22 16:00 36.9 05/31/22 15:45 60 29 125/67 (86) 98 NIV Bilevel 40.00 05/31/22 15:30 60 25 122/66 (84) 98 NIV Bilevel 40.00 05/31/22 15:15 60 19 134/70 (91) 98 NIV Bilevel 40.00 05/31/22 15:07 64 05/31/22 15:00 67 24 96 40.00 05/31/22 15:00 75 24 156/81 (106) 96 NIV Bilevel 40.00 05/31/22 14:40 NIV Bilevel 40 05/31/22 14:24 75 20 158/107 96 NIV Bilevel 40.00 I & O 06/01/22 07:00 Intake Total 3150 ml Output Total 1450 ml Balance 1700 ml Height & Weight Height: 5'4.00" Weight: 182lbs. 0.6oz. 77.199030vk; 26.06 BMI Method:Stated General Appearance: Anxious, Chronically ill, Mild Distress HEENT: PERRL/EOMI, Moist Mucous Membranes; No Scleral Icterus (L), No Scleral Icterus (R) Neck: Normal Inspection, Supple Respiratory: Lungs Clear, No Respiratory Distress Cardiovascular: Regular Rate, Rhythm, No Murmur Capillary Refill: Less Than 3 Seconds Gastrointestinal: normal bowel sounds, non tender, soft Extremity: Normal Capillary Refill, No Calf Tenderness, No Pedal Edema Neurologic/Psychiatric: Alert, Oriented x3 Skin: Normal Color, Warm/Dry Results Lab Laboratory Tests 05/31/22 09:50 06/01/22 04:20 Assessment/Plan Assessment/Plan 1 EHSAN FULTON MD Jun 01, 2022 10:54
[2022-06-01] MEDS ORDERED: ACHD5005 PO (11:14)
[2022-06-01] MEDS ORDERED: LISI2.5T13 PO (11:14)
[2022-06-01] MEDS ORDERED: ASCO-262 PO (11:14)
[2022-06-01] MEDS ORDERED: ALPR0.25 PO (11:14)
[2022-06-01] MEDS ORDERED: SENN-145 PO (11:14)
[2022-06-01] MEDS ORDERED: DOCU100C37 PO (11:14)
[2022-06-01] MEDS ORDERED: TRAM50TA3 PO (11:14)
[2022-06-01] MEDS ORDERED: GABA300C PO (11:14)
[2022-06-01] MEDS ORDERED: FISH1CAP15 PO (11:14)
[2022-06-01] MEDS ORDERED: FLUT1BLS INH (11:14)
[2022-06-01] MEDS ORDERED: MOM10U PO (11:14)
[2022-06-01] MEDS ORDERED: NON-FORMULARY MEDICATION 1 EA EA (Magnesium Hydroxide (Milk of Magnesia) 30 ML) PO PRN (11:30)
[2022-06-01] MEDS ORDERED: RT-ALBUTEROL SULF 2.5 MG/3 ML PRE-MIX VIAL INH PRN (11:30)
[2022-06-01] MEDS ORDERED: HYDROcodone/APAP 5 MG/325 MG (LORTAB) TAB PO PRN (11:30)
[2022-06-01] MEDS ORDERED: MILK OF MAGNESIA 400 MG/5 ML 30 ML UDC PO PRN (11:45)
[2022-06-01] MEDS: 1/2 NS IV SOLUTION 1,000 ML IV SCH (12:01)
[2022-06-01] MEDS: GABAPENTIN 300 MG (NEURONTIN) CAP PO SCH ×2 (12:01→20:12)
[2022-06-01] MEDS: APIXABAN 5 MG (ELIQUIS) TABLET PO SCH ×2 (12:01→20:12)
[2022-06-01] MEDS ORDERED: NON-FORMULARY MEDICATION 1 EA EA (Meloxicam 15 MG) PO SCH (14:00)
[2022-06-01] MEDS: MELOXICAM 7.5 MG (MOBIC) TABLET PO SCH (14:50)
[2022-06-01] MEDS: SENNA W/DOCUSATE (SENOKOT S) TABLET PO SCH (20:10)
[2022-06-01] MEDS: DOCUSATE SODIUM 100 MG (COLACE) CAP PO SCH (20:11)
[2022-06-01] MEDS: rOPINIRole 1 MG (REQUIP) TABLET PO SCH (20:11)
[2022-06-01] MEDS: AtorvaSTATin TABLET 10 MG TABLET PO SCH (20:11)
[2022-06-01] MEDS: AMITRIPTYLINE 25 MG (ELAVIL) TAB PO SCH (20:11)
[2022-06-01] MEDS: ALPRAZolam 0.25 MG (XANAX) TAB PO SCH (20:12)
[2022-06-01] MEDS: LATANOPROST 0.005% (XALATAN) OPHTH SOLN 2.5 ML OU SCH (20:47)
[2022-06-01] MEDS ORDERED: NON-FORMULARY MEDICATION 1 EA EA (Pravastatin Sodium 10 MG) PO SCH (21:00)
[2022-06-02] VITALS (31 sets, daily range): BP systolic 109–158; BP diastolic 55–86
[2022-06-02] MEDS: RT-ALBUTEROL/IPRATROPIUM 3 ML (DUONEB) VIAL IH SCH ×6 (02:20→21:50)
[2022-06-02] MEDS: CEFEPIME INJECTION 1,000 MG in NS (IVPB) 50 ML IV SCH ×3 (03:46→20:22)
[2022-06-02 05:08] LABS: BASOPHILS % (AUTO) 0 % (0-10); EOSINOPHILS % (AUTO) 0 % (0-10); HEMATOCRIT 28 % (35-52); HEMOGLOBIN 8.8 g/dL (11.5-16.0); LYMPHOCYTES % (AUTO) 11 % (12-44); MEAN CORPUSCULAR HEMOGLOBIN 28 pg (25-34); MEAN CORPUSCULAR HGB CONC 32 g/dL (32-36); MEAN CORPUSCULAR VOLUME 89 fL (80-99); MEAN PLATELET VOLUME 10.9 fL (9.0-12.2); MONOCYTES # (AUTO) 0.8 10^3/uL (0.0-1.0); MONOCYTES % (AUTO) 9 % (0-12); NEUTROPHILS # (AUTO) 7.3 10^3/uL (1.8-7.8); NEUTROPHILS % (AUTO) 79 % (42-75); PLATELET COUNT 264 10^3/uL (130-400); WHITE BLOOD COUNT 9.3 10^3/uL (4.3-11.0)
[2022-06-02 05:19] LABS: ALBUMIN 3.3 GM/DL (3.2-4.5); POTASSIUM 3.6 MMOL/L (3.6-5.0)
[2022-06-02 05:20] LABS: CALCIUM 9.4 MG/DL (8.5-10.1)
[2022-06-02 05:21] LABS: TOTAL PROTEIN 5.7 GM/DL (6.4-8.2)
[2022-06-02 05:23] LABS: BILIRUBIN,TOTAL 1.2 MG/DL (0.1-1.0)
[2022-06-02 05:24] LABS: PHOSPHORUS 2.6 MG/DL (2.3-4.7)
[2022-06-02 05:25] LABS: CREATININE SERUM 0.7 MG/DL (0.60-1.30)
[2022-06-02 05:27] LABS: MAGNESIUM 2.2 MG/DL (1.6-2.4)
[2022-06-02] MEDS: POTASSIUM CL 10MEQ/50ML IVPB 50 ML IV SCH ×3 (05:52→14:33)
[2022-06-02] MEDS: 1/2 NS IV SOLUTION 1,000 ML IV SCH ×3 (05:59→22:43)
[2022-06-02] MEDS: RT--FLUTICASONE/SALMETEROL 232-14 (AIRDUO RespiCLICK) IH SCH ×2 (06:48→21:50)
[2022-06-02] MEDS: DOCUSATE SODIUM 100 MG (COLACE) CAP PO SCH ×2 (07:53→20:24)
[2022-06-02] MEDS: SENNA W/DOCUSATE (SENOKOT S) TABLET PO SCH ×2 (07:54→20:23)
--- NOTE | 2022-06-02 08:06 | Tele-ICU Progress Note ---
Subjective Date Seen by a Provider: Jun 02, 2022 Time Seen by a Provider: 06:50 Subjective/Events-last exam This virtual visit was conducted using real time audio/video. Thank you for asking us to see this patient for respiratory insufficiency due to AECOPD, pna, chf. Recent events:0 PE: Resting comfortably on CPAP. Obese. VSS. O2 sat 94% on CPAP 8/30%. HEENT: No obvious masses, adenopathy or JVD. Chest: coarse on auscultation. CV: Irreg. S1 S2 SE murmur. Abd: Non-tender. Bowel sounds Y. : Unremarkable. Chavis Y. 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 No obvious focal findings. Extremities: No edema. Capillary refill < 3 seconds. Skin: unremarkable. Results: Elevated Na 146, BUN 23. Decreased Hb 8.8. Available chart/ vitals / labs / images reviewed. Video assessment done using teleICU camera, rest of exam as per RN. A/P: Respiratory insufficiency: Continue present management with CPAP, weaning as neetu. Cont steroids, duonebs. Monitor for increasing oxygenation needs and/or need for intubation. Critical Care: critically ill patient. Cont. abx, amitrip., eliq., coreg, celexa, requip, aldact., lisinop., statin. Discussed with RN Margaret. Asked RN to reach out to eICU if any questions or concerns later. Time spent with patient/coordination of care with other health professionals (mins): 25 Sepsis Event Evaluation Height, Weight, BMI Height: 5'4.00" Weight: 182lbs. 0.6oz. 77.719157rw; 26.32 BMI Method:Stated Focused Exam Lactate Level 05/31/22 09:50: Lactic Acid Level 0.85 05/31/22 14:59: Lactic Acid Level 0.64 Exam Exam Patient acknowledged, consented, and participated in this virtual visit which was conducted using real time audio/video Vital Signs Date Time Temp Pulse Resp B/P (MAP) Pulse Ox O2 Delivery O2 Flow Rate FiO2 06/02/22 07:00 60 06/02/22 07:00 60 26 109/55 (73) 94 NIV CPAP 25.00 06/02/22 06:48 60 27 98 25.00 06/02/22 06:00 60 134/72 (92) 97 NIV Bilevel 30.00 06/02/22 05:00 60 33 120/68 (85) 97 NIV Bilevel 30.00 06/02/22 04:00 63 36 121/72 (94) 96 NIV Bilevel 30.00 06/02/22 03:54 95 NIV Bilevel 30 06/02/22 03:48 36.6 60 23 145/74 (97) 96 NIV Bilevel 30.00 06/02/22 02:21 60 24 98 30.00 06/02/22 02:00 71 25 156/84 (108) 98 NIV Bilevel 30.00 06/02/22 01:00 60 116/61 (83) 97 NIV Bilevel 30.00 06/02/22 01:00 60 06/02/22 00:00 71 23 148/83 (107) 96 NIV Bilevel 30.00 06/01/22 23:56 36.4 06/01/22 23:45 95 NIV Bilevel 30 06/01/22 23:00 68 30 149/65 (97) 97 NIV Bilevel 30.00 06/01/22 22:00 68 30 147/94 (119) 96 NIV Bilevel 30.00 06/01/22 21:52 80 33 97 30.00 06/01/22 21:09 NIV Bilevel 30.00 06/01/22 21:00 73 143/73 (95) 87 Nasal Cannula 4.00 06/01/22 20:24 Nasal Cannula 4.00 06/01/22 20:00 86 31 143/73 (95) 96 NIV Bilevel 30.00 06/01/22 19:26 37.0 06/01/22 19:18 95 NIV Bilevel 30 06/01/22 19:00 86 147/81 (113) 97 NIV Bilevel 30.00 06/01/22 19:00 86 06/01/22 18:15 80 33 97 30.00 06/01/22 18:00 88 10 155/100 (118) 95 NIV Bilevel 30.00 06/01/22 17:00 89 33 176/96 (122) 97 NIV Bilevel 30.00 06/01/22 16:00 94 NIV Bilevel 30 06/01/22 16:00 81 26 164/95 (118) 97 NIV Bilevel 30.00 06/01/22 15:47 79 30 96 30.00 9/8/22 15:42 37.1 06/01/22 15:00 94 20 95/59 (71) 94 Nasal Cannula 4.00 06/01/22 14:00 110 18 106/70 (82) 99 Nasal Cannula 4.00 06/01/22 13:00 73 06/01/22 13:00 75 20 149/85 (106) 90 Nasal Cannula 4.00 06/01/22 12:00 94 Nasal Cannula 4.00 06/01/22 12:00 80 25 166/86 (112) 94 Nasal Cannula 4.00 06/01/22 11:58 36.9 06/01/22 11:01 94 Nasal Cannula 3.00 06/01/22 11:00 75 20 134/88 (103) 91 Nasal Cannula 4.00 06/01/22 10:30 Nasal Cannula 4.00 06/01/22 10:00 85 17 140/81 (100) 93 NIV Bilevel 40.00 06/01/22 09:00 96 151/77 (101) 93 NIV Bilevel 40.00 06/01/22 08:11 36.9 06/01/22 08:00 90 147/96 (113) 99 NIV Bilevel 40.00 06/01/22 08:00 97 Nasal Cannula 2.00 I & O 06/02/22 07:00 Intake Total 450 ml Output Total 1375 ml Balance -925 ml Height & Weight Height: 5'4.00" Weight: 182lbs. 0.6oz. 77.990447jc; 26.32 BMI Method:Stated General Appearance: Anxious, Chronically ill, Mild Distress HEENT: PERRL/EOMI, Moist Mucous Membranes; No Scleral Icterus (L), No Scleral Icterus (R) Neck: Normal Inspection, Supple Respiratory: Lungs Clear, No Respiratory Distress Cardiovascular: Regular Rate, Rhythm, No Murmur Capillary Refill: Less Than 3 Seconds Gastrointestinal: normal bowel sounds, non tender, soft Extremity: Normal Capillary Refill, No Calf Tenderness, No Pedal Edema Neurologic/Psychiatric: Alert, Oriented x3 Skin: Normal Color, Warm/Dry Results Lab Laboratory Tests 05/31/22 09:50 06/01/22 04:20 06/02/22 04:50 Assessment/Plan Assessment/Plan See free text. Critical Care: Critically Ill Patient SHAQ RICHARD MD Jun 02, 2022 08:06
[2022-06-02] MEDS: GABAPENTIN 300 MG (NEURONTIN) CAP PO SCH ×3 (08:56→20:24)
[2022-06-02] MEDS: lisINopril 5 MG (PRINIVIL) TABLET PO SCH (08:56)
[2022-06-02] MEDS: amLODIPine 5 MG (NORVASC) TAB PO SCH (08:56)
[2022-06-02] MEDS: predniSONE 20 MG TAB PO SCH (08:56)
[2022-06-02] MEDS: SPIRONOLACTONE 25 MG (ALDACTONE) TAB PO SCH (08:57)
[2022-06-02] MEDS: APIXABAN 5 MG (ELIQUIS) TABLET PO SCH ×2 (08:57→20:22)
[2022-06-02] MEDS ORDERED: FLUTICASONE/VILANTEROL 200 MCG 14'S (BREO) IH SCH (09:00)
[2022-06-02] MEDS ORDERED: NON-FORMULARY MEDICATION 1 EA EA (Lisinopril 2.5 MG) PO SCH (09:00)
--- NOTE | 2022-06-02 10:42 | Progress Note - Hospitalist ---
Subjective HPI/CC On Admission Date Seen by Provider: Jun 02, 2022 Pt is an 82 year old female with PMH HTN, HLD, AFib, CVA, COPD, HFpEF, advanced dementia who presented to the emergency department from a longterm due to hypoxia. She reportedly was hypoxic on her baseline oxygen into the mid 80s. EMS was summoned and had difficulty getting her oxygen into the 90s. They placed her on a nonrebreather and she was able to sustain in the low 90s. She was quite tachypneic though in the emergency department placed her on BiPAP. Chest x-ray revealed questionable pneumonia versus edema. She was found to have a leukocytosis though and was admitted for further management. She is unable to give me any history and has known advanced dementia. I did take care of her roughly a month ago and her mentation is worse than her baseline from when she discharged. Subjective/Events-last exam Pt reports doing much better today. No complaints. Breathing easier. Focused Exam Lactate Level 05/31/22 14:59: Lactic Acid Level 0.64 Objective Exam Vital Signs Vital Signs Date Time Temp Pulse Resp B/P (MAP) Pulse Ox O2 Delivery O2 Flow Rate FiO2 06/03/22 12:00 94 Room Air 06/03/22 12:00 61 11 139/76 (97) 24.00 06/03/22 12:00 37.0 06/03/22 08:00 24 Capillary Refill : Less Than 3 Seconds General Appearance: No Apparent Distress Respiratory: Lungs Clear, No Accessory Muscle Use, Other (on BiPAP) Cardiovascular: Regular Rate, Rhythm, No Murmur Gastrointestinal: Normal Bowel Sounds, Soft Neurologic/Psychiatric: Alert, Other (oriented to self and place) Results/Procedures Lab Laboratory Tests 06/03/22 04:42 Patient resulted labs reviewed. Imaging: Reviewed Imaging Report Assessment/Plan Assessment and Plan Assess & Plan/Chief Complaint Acute on chronic respiratory failure with hypoxia and hypercapnia COPD with acute exacerbation and LRTI Sepsis due to Pneumonia TeleICU consulted Steroids Continue abx MAT protocol Back on BiPAP overnight- titrate off today Spoke with son today bradycardia- resolved Given atropoine x1 in ER Monitor on telemetry as resolved now Colitis Continue abx Consider surgery referral for colonoscopy as an outpatient if she improves HTN HFpEF AFib Anxiety and depression Advanced dementia Glaucoma Continue home meds as able DVT ppx: Eliquis Critical Care Critically Ill Patient Diagnosis/Problems Diagnosis/Problems (1) Bradycardia (2) Acute exacerbation of chronic obstructive pulmonary disease (COPD) Status: Acute (3) Sepsis Status: Acute (4) Primary hypertension (5) Mixed hyperlipidemia (6) History of cerebrovascular accident with residual deficit Status: Chronic (7) Permanent atrial fibrillation Status: Chronic (8) Acute on chronic respiratory failure with hypoxemia Status: Acute (9) Colitis Status: Acute (10) PNA (pneumonia) Status: Acute Qualifiers: Pneumonia type: due to unspecified organism Laterality: bilateral Lung location: unspecified part of lung Qualified Codes: J18.9 - Pneumonia, unspecified organism (11) Acute and chronic respiratory failure with hypoxia Status: Acute (12) Dementia Status: Acute (13) Cardiac pacemaker in situ ABRAHAM CIFUENTES MD Jun 02, 2022 10:42
--- NOTE | 2022-06-02 13:22 | Physical Therapy Daily Note ---
PT Daily Note-Current Subjective Patient lying supine in bed upon PT arrival, verbally responds to PT, but what she says is not appropriate. Mental Status Attachments: Oxygen, Chavis Catheter, IV Transfers SCALE: Activities may be completed with or without assistive devices. 4-Pwlnlsaxhe-vlonbml completes the activity by him/herself with no assistance from a helper. 5-Set-up or Clean-up Assistance-helper sets up or cleans up; patient completes activity. [place] assists only prior to or following the activity. 4-Supervision or Touching Assistance-helper provides verbal cues and/or touching/steadying and/or contact guard assistance as patient completes acti vity. Assistance may be provided throughout the activity or intermittently. 3-Partial/Moderate Assistance-helper does LESS THAN HALF the effort. [place] lifts, holds or supports trunk or limbs, but provides less than half the effort. 2-Substantial/Maximal Assistance-helper does MORE THAN HALF the effort. [place] lifts or holds trunk or limbs and provides more than half the effort. 5-Hkejibmhw-sgrper does ALL the effort. Patient does none of the effort to complete the activity. Or, the assistance of 2 or more helpers is required for the patient to complete the activity. If activity was not attempted, code reason: 7-Patient Refused. 9-Not Applicable-not attempted and the patient did not perform the activity before the current illness, exacerbation or injury. 10-Not Attempted due to Environmental Limitations-(lack of equipment, weather restraints, etc.). 88-Not Attempted due to Medical Conditions or Safety Concerns. Exercises Supine Ex: LE Protocol Supine Reps: 20 Bilateral LEs PROM/AAROM x 20 each Assessment Current Status: Poor Progress Patient unable to follow commands at this time and resistive to treatment. Patient unsafe to be out of bed. LE ROM exercises performed with patient falling asleep throughout. Patient in bed post treatment with all needs met, nursing notified, call light in reach. 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 Structural Steel Fitter Goals PT Assisted Goals Time Frame: Jun 17, 2022 Roll Left & Right (QC): 4 Sit to Lying (QC): 4 Lying-Sitting on Side/Bed(QC): 4 Sit to Stand (QC): 4 Chair/Xgn-hx-Jvxdh Xfer(QC): 4 Toilet Transfer (QC): 4 Walk 10 feet (QC): 4 Walk 50ft with 2 Turns (QC): 4 PT Plan Problem List Problem List: Activity Tolerance, Functional Strength, Safety, Balance, Gait, Transfer, Bed Mobility, ROM Treatment/Plan Treatment Plan: Continue Plan of Care Treatment Plan: Bed Mobility, Education, Functional Activity Katherine, Functional Strength, Gait, Safety, Therapeutic Exercise, Transfers Treatment Duration: Jun 17, 2022 Frequency: 5 times per week Estimated Hrs Per Day: .25 hour per day Safety Risks/Education Patient Education: Correct Positioning Teaching Recipient: Patient Teaching Methods: Demonstration, Discussion Response to Teaching: Reinforcement Needed Time/GCodes Time In: 1304 Time Out: 1318 Total Billed Treatment Time: 14 Total Billed Treatment Visit, ex DAVID JAY PT Jun 02, 2022 13:22
[2022-06-02] MEDS: KCL 20 MEQ TAB (K-DUR) PO SCH ×2 (14:33)
[2022-06-02] MEDS: MAGNESIUM 1 GM/100 ML IVPB 100 ML IV SCH (14:33)
[2022-06-02] MEDS: MELOXICAM 7.5 MG (MOBIC) TABLET PO SCH (14:34)
[2022-06-02] MEDS ORDERED: RT-ALBUTEROL SULF 2.5 MG/3 ML PRE-MIX VIAL INH PRN (16:00)
[2022-06-02] MEDS: AMITRIPTYLINE 25 MG (ELAVIL) TAB PO SCH (20:23)
[2022-06-02] MEDS: AtorvaSTATin TABLET 10 MG TABLET PO SCH (20:23)
[2022-06-02] MEDS: ALPRAZolam 0.25 MG (XANAX) TAB PO SCH (20:24)
[2022-06-02] MEDS: LATANOPROST 0.005% (XALATAN) OPHTH SOLN 2.5 ML OU SCH (20:24)
[2022-06-02] MEDS: rOPINIRole 1 MG (REQUIP) TABLET PO SCH (20:24)
[2022-06-03] VITALS (27 sets, daily range): BP systolic 113–149; BP diastolic 24–91
[2022-06-03] MEDS: RT-ALBUTEROL/IPRATROPIUM 3 ML (DUONEB) VIAL IH SCH ×4 (02:29→22:52)
[2022-06-03] MEDS: CEFEPIME INJECTION 1,000 MG in NS (IVPB) 50 ML IV SCH ×3 (03:36→19:46)
[2022-06-03 05:14] LABS: BASOPHILS % (AUTO) 0 % (0-10); EOSINOPHILS % (AUTO) 0 % (0-10); HEMATOCRIT 29 % (35-52); HEMOGLOBIN 8.9 g/dL (11.5-16.0); LYMPHOCYTES # (AUTO) 1.2 10^3/uL (1.0-4.0); LYMPHOCYTES % (AUTO) 16 % (12-44); MEAN CORPUSCULAR HEMOGLOBIN 28 pg (25-34); MEAN CORPUSCULAR HGB CONC 31 g/dL (32-36); MEAN CORPUSCULAR VOLUME 90 fL (80-99); MEAN PLATELET VOLUME 11.1 fL (9.0-12.2); MONOCYTES # (AUTO) 0.7 10^3/uL (0.0-1.0); MONOCYTES % (AUTO) 9 % (0-12); NEUTROPHILS # (AUTO) 5.6 10^3/uL (1.8-7.8); NEUTROPHILS % (AUTO) 74 % (42-75); PLATELET COUNT 236 10^3/uL (130-400); WHITE BLOOD COUNT 7.6 10^3/uL (4.3-11.0)
[2022-06-03 05:35] LABS: ALBUMIN 3.3 GM/DL (3.2-4.5)
[2022-06-03 05:36] LABS: POTASSIUM 3.1 MMOL/L (3.6-5.0)
[2022-06-03 05:37] LABS: CALCIUM 8.9 MG/DL (8.5-10.1)
[2022-06-03 05:38] LABS: TOTAL PROTEIN 5.5 GM/DL (6.4-8.2)
[2022-06-03 05:40] LABS: BILIRUBIN,TOTAL 1.4 MG/DL (0.1-1.0)
[2022-06-03 05:42] LABS: CREATININE SERUM 0.66 MG/DL (0.60-1.30)
[2022-06-03] MEDS: MAGNESIUM 1 GM/100 ML IVPB 100 ML IV SCH (05:52)
[2022-06-03] MEDS: KCL 20 MEQ TAB (K-DUR) PO SCH ×2 (05:53→09:01)
[2022-06-03] MEDS ORDERED: POTASSIUM CL 10MEQ/50ML IVPB 50 ML IV ONE (06:00)
[2022-06-03] MEDS: POTASSIUM CL 10MEQ/50ML IVPB 50 ML IV SCH ×5 (06:01→12:06)
[2022-06-03] MEDS: lisINopril 5 MG (PRINIVIL) TABLET PO SCH (08:57)
[2022-06-03] MEDS: GABAPENTIN 300 MG (NEURONTIN) CAP PO SCH ×3 (08:57→20:05)
[2022-06-03] MEDS: DOCUSATE SODIUM 100 MG (COLACE) CAP PO SCH ×2 (08:57→20:05)
[2022-06-03] MEDS: APIXABAN 5 MG (ELIQUIS) TABLET PO SCH ×2 (08:57→20:05)
[2022-06-03] MEDS: SENNA W/DOCUSATE (SENOKOT S) TABLET PO SCH ×2 (08:57→20:05)
[2022-06-03] MEDS: SPIRONOLACTONE 25 MG (ALDACTONE) TAB PO SCH (08:57)
[2022-06-03] MEDS: amLODIPine 5 MG (NORVASC) TAB PO SCH (08:57)
[2022-06-03] MEDS: predniSONE 20 MG TAB PO SCH (09:01)
--- NOTE | 2022-06-03 09:51 | Progress Note - Hospitalist ---
Subjective HPI/CC On Admission Date Seen by Provider: Jun 03, 2022 Pt is an 82 year old female with PMH HTN, HLD, AFib, CVA, COPD, HFpEF, advanced dementia who [facility]. She reportedly was hypoxic on her baseline oxygen into the mid 80s. EMS was summoned and had difficulty getting her oxygen into the 90s. They placed her on a nonrebreather and she was able to sustain in the low 90s. She was quite tachypneic though in the emergency department placed her on BiPAP. Chest x-ray revealed questionable pneumonia versus edema. She was found to have a leukocytosis though and was admitted for further management. She is unable to give me any history and has known advanced dementia. I did take care of her roughly a month ago and her mentation is worse than her baseline from when she d ischarged. Subjective/Events-last exam Pt is sleeping soundly with BiPAP in place. Opens eyes but otherwise didn't communicate much today. No complaints per RN. Focused Exam Lactate Level 05/31/22 09:50: Lactic Acid Level 0.85 05/31/22 14:59: Lactic Acid Level 0.64 Objective Exam Vital Signs Vital Signs Date Time Temp Pulse Resp B/P (MAP) Pulse Ox O2 Delivery O2 Flow Rate FiO2 06/03/22 09:00 80 113/63 (80) 97 NIV CPAP 24.00 06/03/22 08:00 36.4 06/03/22 08:00 23 06/03/22 08:00 24 Capillary Refill : Less Than 3 Seconds General Appearance: No Apparent Distress, Chronically ill Respiratory: Lungs Clear, Other (on BiPAP) Cardiovascular: Regular Rate, Rhythm, No Murmur Gastrointestinal: Normal Bowel Sounds, Soft Neurologic/Psychiatric: Alert (opens eyes to voice, goes quickly back to sleep) Results/Procedures Lab Laboratory Tests 06/03/22 04:42 Patient resulted labs reviewed. Imaging: Reviewed Imaging Report Assessment/Plan Assessment and Plan Assess & Plan/Chief Complaint Acute on chronic respiratory failure with hypoxia and hypercapnia COPD with acute exacerbation and LRTI Sepsis due to Pneumonia TeleICU consulted Steroids Continue abx MAT protocol Back on BiPAP yesterday and today, will continue to try to titrate off bradycardia- resolved Given atropoine x1 in ER Monitor on telemetry as resolved now Colitis Continue abx Consider surgery referral for colonoscopy as an outpatient if she improves HTN HFpEF AFib Anxiety and depression Advanced dementia Glaucoma Continue home meds as able DVT ppx: Eliquis Critical Care Critically Ill Patient Diagnosis/Problems Diagnosis/Problems (1) Bradycardia (2) Acute exacerbation of chronic obstructive pulmonary disease (COPD) Status: Acute (3) Sepsis Status: Acute (4) Primary hypertension (5) Mixed hyperlipidemia (6) History of cerebrovascular accident with residual deficit Status: Chronic (7) Permanent atrial fibrillation Status: Chronic (8) Acute on chronic respiratory failure with hypoxemia Status: Acute (9) Colitis Status: Acute (10) PNA (pneumonia) Status: Acute Qualifiers: Pneumonia type: due to unspecified organism Laterality: bilateral Lung location: unspecified part of lung Qualified Codes: J18.9 - Pneumonia, unspecified organism (11) Acute and chronic respiratory failure with hypoxia Status: Acute (12) Dementia Status: Acute (13) Cardiac pacemaker in situ ABRAHAM CIFUENTES MD Jun 03, 2022 09:51
--- NOTE | 2022-06-03 10:32 | Tele-ICU Progress Note ---
Subjective Date Seen by a Provider: Jun 03, 2022 Time Seen by a Provider: 10:32 Subjective/Events-last exam (Tele-ICU Physician , Progress Note ) Available chart/ vitals / labs / Images reviewed Video assessment done using teleICU camera, rest of exam as per RN Discussed with RN Events overnight : Afebrile hemodynamically stable Respiratory - I/O = Drips: 1/2 ms 70 Pressors- no Consultants: Hospital course: (05/31) 82F admitted with PNA, COPD exac, CHF, hypoxic, on CPAP 8 40 % rr 24 txv 400 A/P Acute on chronic respiratory failure with hypoxia and hypercapnia - - cont on CPAP 8 40 % rr 24 txv 400 - at night ( chronic use nocturnal cpap ? - NC 4 l now AECOPD/ LRTI - nebs -IV steroids - changed to po 06/01 - cefepime 05/31 Sepsis - recived IVF and abx - vital stable bradycardia in ER to 20s - given atropine x1 ( with h/o a fib with pacemaker - stable now - monitor nonspecific colitis on CT 05/31 - as per PCP HFpEF - ECHO 03/2022 - EF 45% severe aortic stenosis - monitor , as per cads note prior - -not a candidate for any intervvention Pulm HTN - echo 2RVSP 76 - stop NS Permanent atrial fibrillation - rate controlled - SINUS - OAC Eliquis Advanced dementia - as per RN , at risk for aspiration - re-assess . might need speach eval - 1/2 ns to give H20 , will stop if can drink / eas - as per PCP Effusion , plural R> L - monitor , decrease IVF - ro repeart cxr cxr Lines : , (Central Line Necessity Reviewed) Chavis: 05/31 OG: Nutrition: Analgesia: Anxiety/ delirium VTE Prophylaxis: Eliquis- TO RESUME PER PCP Stress Ulcer Prophylaxis: Plans in collaboration with bedside consultants and IM MDs. Discussed with RN to reach out if any questions or concerns A total of 22 minutes of critical care time was devoted to this patient today, required to treat and/or prevent further deterioration of critical care condition ( as above ) . Sepsis Event Evaluation Height, Weight, BMI Height: 5'4.00" Weight: 182lbs. 0.6oz. 77.756310zg; 26.36 BMI Method:Stated Focused Exam Lactate Level 05/31/22 14:59: Lactic Acid Level 0.64 Exam Exam Patient acknowledged, consented, and participated in this virtual visit which was conducted using real time audio/video Vital Signs Date Time Temp Pulse Resp B/P (MAP) Pulse Ox O2 Delivery O2 Flow Rate FiO2 06/03/22 10:00 60 10 114/64 (81) 97 NIV CPAP 24.00 06/03/22 09:00 80 113/63 (80) 97 NIV CPAP 24.00 06/03/22 08:00 36.4 06/03/22 08:00 60 23 133/71 (91) 97 NIV CPAP 24.00 06/03/22 08:00 98 NIV Bilevel 24 06/03/22 07:30 60 21 99 24.00 06/03/22 07:00 60 06/03/22 07:00 60 15 120/66 (84) 97 NIV CPAP 24.00 06/03/22 06:00 60 19 149/74 (99) 97 NIV CPAP 24.00 06/03/22 05:00 60 22 119/68 (85) 96 NIV CPAP 24.00 06/03/22 04:00 60 22 115/65 (82) 96 NIV CPAP 24.00 06/03/22 03:46 95 NIV Bilevel 24 06/03/22 03:00 60 23 119/68 (85) 96 NIV CPAP 24.00 06/03/22 02:29 60 26 95 24.00 06/03/22 02:00 60 20 132/73 (92) 96 NIV CPAP 24.00 06/03/22 01:00 60 06/03/22 01:00 64 20 131/68 (89) 96 NIV CPAP 24.00 06/03/22 00:00 60 26 122/67 (85) 96 NIV CPAP 24.00 06/02/22 23:59 96 NIV Bilevel 24 06/02/22 23:00 59 21 123/67 (85) 96 NIV CPAP 24.00 06/02/22 22:00 60 15 129/66 (87) 95 NIV CPAP 24.00 06/02/22 21:54 NIV CPAP 24.00 06/02/22 21:50 60 25 94 24.00 06/02/22 21:00 61 28 134/67 (89) 94 Nasal Cannula 3.00 06/02/22 20:00 77 31 131/74 (93) 95 Nasal Cannula 3.00 06/02/22 20:00 94 NIV Bilevel 24 06/02/22 19:59 37.3 06/02/22 19:00 74 30 133/80 (97) 95 Nasal Cannula 3.00 06/02/22 19:00 81 06/02/22 18:20 95 Nasal Cannula 3.00 06/02/22 18:06 64 24 96 24.00 06/02/22 18:00 66 13 146/83 (104) 95 NIV CPAP 24.00 06/02/22 17:00 76 20 158/86 (110) 96 NIV CPAP 24.00 06/02/22 16:29 37.0 06/02/22 16:01 70 24 95 24.00 06/02/22 16:00 95 NIV Bilevel 30 06/02/22 16:00 69 145/83 (103) 96 NIV CPAP 24.00 06/02/22 15:00 63 134/81 (98) 94 NIV CPAP 24.00 06/02/22 14:00 64 29 134/65 (88) 94 NIV CPAP 24.00 06/02/22 13:05 36.0 69 93 24 06/02/22 13:00 69 14 134/70 (91) 93 NIV CPAP 24.00 06/02/22 12:17 60 06/02/22 12:00 60 22 139/76 (97) 96 NIV CPAP 24.00 06/02/22 12:00 95 NIV Bilevel 30 06/02/22 11:53 36.0 06/02/22 11:00 60 24 128/61 (83) 95 NIV CPAP 25.00 06/02/22 10:45 60 29 96 24.00 I & O 06/03/22 07:00 Intake Total 1647 ml Output Total 1650 ml Balance -3 ml Height & Weight Height: 5'4.00" Weight: 182lbs. 0.6oz. 77.307022sy; 26.36 BMI Method:Stated General Appearance: No Apparent Distress, Chronically ill HEENT: PERRL/EOMI, Moist Mucous Membranes; No Scleral Icterus (L), No Scleral Icterus (R) Neck: Normal Inspection, Supple Respiratory: Lungs Clear, Other (on BiPAP) Cardiovascular: Regular Rate, Rhythm, No Murmur Capillary Refill: Less Than 3 Seconds Gastrointestinal: normal bowel sounds, non tender, soft Extremity: Normal Capillary Refill, No Calf Tenderness, No Pedal Edema Neurologic/Psychiatric: Alert (opens eyes to voice, goes quickly back to sleep) Skin: Normal Color, Warm/Dry Results Lab Laboratory Tests 06/02/22 04:50 06/03/22 04:42 Assessment/Plan Assessment/Plan 1 EHSAN FULTON MD Jun 03, 2022 10:32
[2022-06-03] MEDS: MELOXICAM 7.5 MG (MOBIC) TABLET PO SCH (14:56)
[2022-06-03] MEDS: RT--FLUTICASONE/SALMETEROL 232-14 (AIRDUO RespiCLICK) IH SCH (18:48)
[2022-06-03] MEDS: rOPINIRole 1 MG (REQUIP) TABLET PO SCH (20:04)
[2022-06-03] MEDS: AtorvaSTATin TABLET 10 MG TABLET PO SCH (20:05)
[2022-06-03] MEDS: ALPRAZolam 0.25 MG (XANAX) TAB PO SCH (20:05)
[2022-06-03] MEDS: AMITRIPTYLINE 25 MG (ELAVIL) TAB PO SCH (20:05)
[2022-06-03] MEDS: LATANOPROST 0.005% (XALATAN) OPHTH SOLN 2.5 ML OU SCH (20:05)
[2022-06-04] VITALS (16 sets, daily range): BP systolic 119–154; BP diastolic 54–99
[2022-06-04] MEDS: RT-ALBUTEROL/IPRATROPIUM 3 ML (DUONEB) VIAL IH SCH ×6 (02:36→21:29)
[2022-06-04] MEDS: CEFEPIME INJECTION 1,000 MG in NS (IVPB) 50 ML IV SCH ×3 (03:30→19:32)
[2022-06-04 04:31] LABS: BASOPHILS % (AUTO) 0 % (0-10); EOSINOPHILS % (AUTO) 0 % (0-10); HEMATOCRIT 31 % (35-52); HEMOGLOBIN 9.6 g/dL (11.5-16.0); LYMPHOCYTES # (AUTO) 1.4 10^3/uL (1.0-4.0); LYMPHOCYTES % (AUTO) 15 % (12-44); MEAN CORPUSCULAR HEMOGLOBIN 28 pg (25-34); MEAN CORPUSCULAR HGB CONC 31 g/dL (32-36); MEAN CORPUSCULAR VOLUME 89 fL (80-99); MEAN PLATELET VOLUME 11.2 fL (9.0-12.2); MONOCYTES # (AUTO) 0.8 10^3/uL (0.0-1.0); MONOCYTES % (AUTO) 8 % (0-12); NEUTROPHILS # (AUTO) 6.9 10^3/uL (1.8-7.8); NEUTROPHILS % (AUTO) 75 % (42-75); PLATELET COUNT 225 10^3/uL (130-400); WHITE BLOOD COUNT 9.1 10^3/uL (4.3-11.0)
[2022-06-04 04:49] LABS: ALBUMIN 3.2 GM/DL (3.2-4.5)
[2022-06-04 04:51] LABS: CALCIUM 8.8 MG/DL (8.5-10.1)
[2022-06-04 04:52] LABS: TOTAL PROTEIN 5.6 GM/DL (6.4-8.2)
[2022-06-04 04:54] LABS: BILIRUBIN,TOTAL 1.4 MG/DL (0.1-1.0)
[2022-06-04 04:55] LABS: PHOSPHORUS 2.4 MG/DL (2.3-4.7)
[2022-06-04 04:56] LABS: CREATININE SERUM 0.61 MG/DL (0.60-1.30)
[2022-06-04 04:59] LABS: MAGNESIUM 1.9 MG/DL (1.6-2.4)
[2022-06-04] MEDS: POTASSIUM CL 10MEQ/50ML IVPB 50 ML IV SCH (05:38)
[2022-06-04] MEDS: KCL 20 MEQ TAB (K-DUR) PO SCH ×2 (05:38→08:53)
[2022-06-04] MEDS: MAGNESIUM 1 GM/100 ML IVPB 100 ML IV SCH (05:38)
[2022-06-04] MEDS: 1/2 NS IV SOLUTION 1,000 ML IV SCH (08:16)
--- NOTE | 2022-06-04 08:33 | Tele-ICU Progress Note ---
Subjective Date Seen by a Provider: Jun 04, 2022 Subjective/Events-last exam This virtual visit was conducted using real time audio/video. Thank you for asking us to see this patient for respiratory insufficiency due to AECOPD, pna, chf. Recent events:0 PE: Resting comfortably on CPAP. Obese. VSS. O2 sat 97% on CPAP 8/24%. HEENT: No obvious masses, adenopathy or JVD. Chest: clear on auscultation. CV: Irreg. S1 S2 SE murmur. Abd: Non-tender. Bowel sounds Y. : Unremarkable. Chavis Y. SMALL ENGINE SPECIALIST/psychiatric: Grossly intact. No obvious focal findings. Extremities: No edema. Capillary refill < 3 seconds. Skin: unremarkable. Results: Decreased Hb 9.6. Available chart/ vitals / labs / images reviewed. Video assessment done using teleICU camera, rest of exam as per RN. A/P: Respiratory insufficiency: Continue present management with CPAP, weaning as neetu. Cont steroids, duonebs. Monitor for increasing oxygenation needs and/or need for intubation. Critical Care: critically ill patient. Cont. abx, amitrip., eliq., cor eg, celexa, requip, aldact., lisinop., statin, norv. Discussed with RN Margaret. Asked RN to reach out to eICU if any questions or concerns later. Time spent with patient/coordination of care with other health professionals (mins): 22 Sepsis Event Evaluation Height, Weight, BMI Height: 5'4.00" Weight: 182lbs. 0.6oz. 77.992240ut; 26.36 BMI Method:Stated Exam Exam Patient acknowledged, consented, and participated in this virtual visit which was conducted using real time audio/video Vital Signs Date Time Temp Pulse Resp B/P (MAP) Pulse Ox O2 Delivery O2 Flow Rate FiO2 06/04/22 08:00 60 13 145/99 (114) 97 NIV Bilevel 21.00 06/04/22 07:31 35.8 06/04/22 07:00 60 06/04/22 07:00 60 144/72 (96) 96 NIV Bilevel 21.00 06/04/22 06:41 NIV Bilevel 21.00 06/04/22 06:39 21.00 06/04/22 06:32 60 18 98 24.00 06/04/22 06:00 60 19 132/67 (88) 98 NIV Bilevel 24.00 06/04/22 05:00 60 26 140/77 (98) 97 NIV Bilevel 24.00 06/04/22 04:00 NIV Bilevel 24 06/04/22 04:00 60 26 128/74 (92) 97 NIV Bilevel 24.00 06/04/22 03:00 60 24 132/80 (97) 97 NIV Bilevel 24.00 06/04/22 02:36 60 25 96 24.00 06/04/22 02:00 60 21 154/84 (107) 95 NIV Bilevel 24.00 06/04/22 01:00 60 14 147/80 (102) 96 NIV Bilevel 24.00 06/04/22 01:00 60 06/04/22 00:00 60 18 131/77 (95) 95 NIV Bilevel 24.00 06/03/22 23:42 NIV Bilevel 24 06/03/22 23:02 37.4 96 NIV Bilevel 24.00 06/03/22 23:00 60 26 128/68 (88) 96 Nasal Cannula 4.00 06/03/22 22:50 60 20 96 24.00 06/03/22 22:00 60 28 126/74 (91) 97 Nasal Cannula 4.00 06/03/22 21:00 63 25 123/71 (88) 96 Nasal Cannula 4.00 06/03/22 20:20 96 Nasal Cannula 4.00 06/03/22 20:00 61 26 132/70 (90) 96 Room Air 06/03/22 19:52 96 Nasal Cannula 4.00 06/03/22 19:38 37.3 06/03/22 19:00 61 28 149/83 (105) 95 Room Air 06/03/22 19:00 60 06/03/22 18:48 96 Nasal Cannula 3.00 06/03/22 18:00 64 32 145/76 (99) 97 Room Air 06/03/22 17:00 65 26 146/79 (101) 96 Room Air 06/03/22 16:00 63 18 133/84 (100) 96 Room Air 06/03/22 16:00 94 Room Air 06/03/22 15:00 62 19 131/71 (91) 94 Room Air 06/03/22 14:40 37.1 910/22 14:00 62 10 126/87 (100) 94 Room Air 06/03/22 13:00 60 06/03/22 13:00 69 14 133/91 (105) 93 Room Air 06/03/22 12:00 94 Room Air 06/03/22 12:00 61 11 139/76 (97) 93 Room Air 06/03/22 12:00 37.0 06/03/22 11:00 60 22 131/69 (89) 95 NIV CPAP 24.00 06/03/22 10:00 60 10 114/64 (81) 97 NIV CPAP 24.00 06/03/22 09:00 80 113/63 (80) 97 NIV CPAP 24.00 I & O 06/04/22 07:00 Intake Total 1390 ml Output Total 885 ml Balance 505 ml Height & Weight Height: 5'4.00" Weight: 182lbs. 0.6oz. 77.779478vn; 26.36 BMI Method:Stated General Appearance: Chronically ill, Mild Distress HEENT: PERRL/EOMI, Moist Mucous Membranes; No Scleral Icterus (L), No Scleral Icterus (R) Neck: Normal Inspection, Supple Respiratory: Decreased Breath Sounds; No Wheezing; Other (on BiPAP) Cardiovascular: Regular Rate, Rhythm, No JVD, No Murmur Capillary Refill: Less Than 3 Seconds Gastrointestinal: normal bowel sounds, non tender, soft Extremity: Normal Capillary Refill, No Calf Tenderness, No Pedal Edema Neurologic/Psychiatric: Alert, Disoriented Skin: Normal Color, Warm/Dry Results Lab Laboratory Tests 06/03/22 04:42 06/04/22 04:16 Assessment/Plan Assessment/Plan See free text Critical Care: Critically Ill Patient (See free text) SHAQ RICHARD MD Jun 04, 2022 08:33
[2022-06-04] MEDS: predniSONE 20 MG TAB PO SCH (08:53)
[2022-06-04] MEDS: APIXABAN 5 MG (ELIQUIS) TABLET PO SCH ×2 (08:53→19:32)
[2022-06-04] MEDS: GABAPENTIN 300 MG (NEURONTIN) CAP PO SCH ×3 (08:53→19:32)
[2022-06-04] MEDS: amLODIPine 5 MG (NORVASC) TAB PO SCH (08:53)
[2022-06-04] MEDS: SPIRONOLACTONE 25 MG (ALDACTONE) TAB PO SCH (08:53)
[2022-06-04] MEDS: SENNA W/DOCUSATE (SENOKOT S) TABLET PO SCH ×2 (08:53→19:32)
[2022-06-04] MEDS: lisINopril 5 MG (PRINIVIL) TABLET PO SCH (08:53)
[2022-06-04] MEDS: DOCUSATE SODIUM 100 MG (COLACE) CAP PO SCH ×2 (08:53→19:32)
--- NOTE | 2022-06-04 09:42 | Diagnostic Imaging Report ---
Indication: Shortness of breath. Comparison is made with prior exam of 05/31/2022. FINDINGS: There is cardiomegaly. There has been improvement in the venous congestion. There are minimal patchy bibasal infiltrates. There is no pneumothorax. The mediastinum is unremarkable. Pacemaker overlies right hemithorax. IMPRESSION: Cardiomegaly and some interval improvement in the central pulmonary venous congestion There are some minimal patchy bibasal infiltrates. Dictated by: Dictated on workstation # [id number]
--- NOTE | 2022-06-04 10:22 | Progress Note - Hospitalist ---
Subjective HPI/CC On Admission Date Seen by Provider: Jun 04, 2022 Pt is an 82 year old female with PMH HTN, HLD, AFib, CVA, COPD, HFpEF, advanced dementia who presented to the emergency department from a [facility] due to hypoxia. She reportedly was hypoxic on her baseline oxygen into the mid 80s. EMS was summoned and had difficulty getting her oxygen into the 90s. They placed her on a nonrebreather and she was able to sustain in the low 90s. She was quite tachypneic though in the emergency department placed her on BiPAP. Chest x-ray revealed questionable pneumonia versus edema. She was found to have a leukocytosis though and was admitted for further management. She is unable to give me any history and has known advanced dementia. I did take care of her roughly a month ago and her mentation is worse than her baseline from when she d ischarged. Subjective/Events-last exam Pt off BiPAP. Complains of being cold. No other complaints. RN reports doing well. No family at bedside. Objective Exam Vital Signs Vital Signs Date Time Temp Pulse Resp B/P (MAP) Pulse Ox O2 Delivery O2 Flow Rate FiO2 06/04/22 09:00 60 10 132/74 (93) 96 Room Air 06/04/22 08:00 21.00 06/04/22 07:31 35.8 06/04/22 04:00 24 Capillary Refill : Less Than 3 Seconds General Appearance: No Apparent Distress, Chronically ill Respiratory: Lungs Clear, No Respiratory Distress Cardiovascular: Regular Rate, Rhythm, No Murmur Genital/Rectal: Other (rachel) Neurologic/Psychiatric: Alert Results/Procedures Lab Laboratory Tests 06/04/22 04:16 Patient resulted labs reviewed. Imaging: Reviewed Imaging Report Assessment/Plan Assessment and Plan Assess & Plan/Chief Complaint Acute on chronic respiratory failure with hypoxia and hypercapnia COPD with acute exacerbation and LRTI Sepsis due to Pneumonia TeleICU consulted Steroids, oral Continue abx MAT protocol BiPAP at night bradycardia- resolved Given atropoine x1 in ER Monitor on telemetry as resolved now Colitis Continue abx Consider surgery referral for colonoscopy as an outpatient if she improves HTN HFpEF AFib Anxiety and depression Advanced dementia Glaucoma Continue home meds as able DVT ppx: Eliquis Critical Care Critically Ill Patient (See free text) Diagnosis/Problems Diagnosis/Problems (1) Bradycardia (2) Acute exacerbation of chronic obstructive pulmonary disease (COPD) Status: Acute (3) Sepsis Status: Acute (4) Primary hypertension (5) Mixed hyperlipidemia (6) History of cerebrovascular accident with residual deficit Status: Chronic (7) Permanent atrial fibrillation Status: Chronic (8) Acute on chronic respiratory failure with hypoxemia Status: Acute (9) Colitis Status: Acute (10) PNA (pneumonia) Status: Acute Qualifiers: Pneumonia type: due to unspecified organism Laterality: bilateral Lung location: unspecified part of lung Qualified Codes: J18.9 - Pneumonia, unspecified organism (11) Acute and chronic respiratory failure with hypoxia Status: Acute (12) Dementia Status: Acute (13) Cardiac pacemaker in situ ABRAHAM CIFUENTES MD Jun 04, 2022 10:22
[2022-06-04] MEDS: RT--FLUTICASONE/SALMETEROL 232-14 (AIRDUO RespiCLICK) IH SCH ×2 (11:28→21:29)
[2022-06-04] MEDS: MELOXICAM 7.5 MG (MOBIC) TABLET PO SCH (13:04)
[2022-06-04] MEDS: AtorvaSTATin TABLET 10 MG TABLET PO SCH (19:32)
[2022-06-04] MEDS: rOPINIRole 1 MG (REQUIP) TABLET PO SCH (19:32)
[2022-06-04] MEDS: AMITRIPTYLINE 25 MG (ELAVIL) TAB PO SCH (19:32)
[2022-06-04] MEDS: ALPRAZolam 0.25 MG (XANAX) TAB PO SCH (19:32)
[2022-06-04] MEDS: LATANOPROST 0.005% (XALATAN) OPHTH SOLN 2.5 ML OU SCH (19:32)
[2022-06-05] MEDS: RT-ALBUTEROL/IPRATROPIUM 3 ML (DUONEB) VIAL IH SCH ×2 (02:19→06:54)
[2022-06-05] MEDS: CEFEPIME INJECTION 1,000 MG in NS (IVPB) 50 ML IV SCH ×2 (03:18→12:29)
[2022-06-05 03:43] VITALS: BP 126/74
[2022-06-05] MEDS: POTASSIUM CL 10MEQ/50ML IVPB 50 ML IV SCH (05:40)
[2022-06-05 05:49] LABS: BASOPHILS % (AUTO) 0 % (0-10); EOSINOPHILS # (AUTO) 0.2 10^3/uL (0.0-0.3); EOSINOPHILS % (AUTO) 3 % (0-10); HEMATOCRIT 28 % (35-52); HEMOGLOBIN 8.8 g/dL (11.5-16.0); LYMPHOCYTES # (AUTO) 1.5 10^3/uL (1.0-4.0); LYMPHOCYTES % (AUTO) 24 % (12-44); MEAN CORPUSCULAR HEMOGLOBIN 28 pg (25-34); MEAN CORPUSCULAR HGB CONC 32 g/dL (32-36); MEAN CORPUSCULAR VOLUME 89 fL (80-99); MEAN PLATELET VOLUME 10.9 fL (9.0-12.2); MONOCYTES # (AUTO) 0.5 10^3/uL (0.0-1.0); MONOCYTES % (AUTO) 8 % (0-12); NEUTROPHILS # (AUTO) 4.1 10^3/uL (1.8-7.8); NEUTROPHILS % (AUTO) 65 % (42-75); PLATELET COUNT 195 10^3/uL (130-400); WHITE BLOOD COUNT 6.3 10^3/uL (4.3-11.0)
[2022-06-05 06:07] LABS: ALBUMIN 2.9 GM/DL (3.2-4.5); BILIRUBIN,TOTAL 0.9 MG/DL (0.1-1.0); CALCIUM 8.7 MG/DL (8.5-10.1); CREATININE SERUM 0.77 MG/DL (0.60-1.30); MAGNESIUM 1.9 MG/DL (1.6-2.4); PHOSPHORUS 2.6 MG/DL (2.3-4.7); POTASSIUM 3.8 MMOL/L (3.6-5.0); TOTAL PROTEIN 5.1 GM/DL (6.4-8.2)
[2022-06-05] MEDS: KCL 20 MEQ TAB (K-DUR) PO SCH (06:09)
[2022-06-05] MEDS: MAGNESIUM 1 GM/100 ML IVPB 100 ML IV SCH (06:10)
[2022-06-05] MEDS: predniSONE 20 MG TAB PO SCH (06:12)
[2022-06-05] MEDS: RT--FLUTICASONE/SALMETEROL 232-14 (AIRDUO RespiCLICK) IH SCH (06:54)
[2022-06-05 08:00] VITALS: BP 148/72
[2022-06-05] MEDS ORDERED: KCL 20 MEQ TAB (K-DUR) PO SCH (09:00)
[2022-06-05] MEDS: DOCUSATE SODIUM 100 MG (COLACE) CAP PO SCH (09:46)
[2022-06-05] MEDS: APIXABAN 5 MG (ELIQUIS) TABLET PO SCH (09:46)
[2022-06-05] MEDS: SENNA W/DOCUSATE (SENOKOT S) TABLET PO SCH (09:46)
[2022-06-05] MEDS: lisINopril 5 MG (PRINIVIL) TABLET PO SCH (09:46)
[2022-06-05] MEDS: SPIRONOLACTONE 25 MG (ALDACTONE) TAB PO SCH (09:47)
[2022-06-05] MEDS: GABAPENTIN 300 MG (NEURONTIN) CAP PO SCH (09:47)
[2022-06-05] MEDS: amLODIPine 5 MG (NORVASC) TAB PO SCH (09:48)
--- NOTE | 2022-06-05 10:06 | Physical Therapy Progress Note ---
Therapy Progress Note Patient declined PT. Currently eating breakfast with dependent assist. 1 ref CHRISTI BOYLE PT Jun 05, 2022 10:05
--- NOTE | 2022-06-05 11:17 | Discharge Inst-Skilled Nursing ---
Discharge Inst-Skilled NF Reconcile Patient Problems Problems Reviewed?: Yes Patient Instructions Patient Instructions: Take medications as prescribed. Follow up with your PCP. Return with worsening shortness of breath or if you feel like you are getting worse. Consult/Follow Up/Orders Follow Up Appt.: next shelter rounds Skilled NF Admit to: Via [facility] Certification (SNF) I certify that SNF services are required to be given on an inpatient basis because of the above named patient's need for prison care on a continuing basis for the conditions(s) for which he/she was receiving inpatient hospital services prior to his/her transfer to the SNF. Fdc Facility Order: Nursing Services, Human Machine Interface Engineer-Evaluate & Treat, Physical Therapy-Evaluate & Treat Discharge Diet: No Restrictions Daily Activity as Tolerated: Yes Resuscitation Status: Do Not Resuscitate New & Resume Previous Orders Evette Cárdenas Jun 05, 2022 11:16 EVETTE CÁRDENAS MD Jun 05, 2022 11:17
[2022-06-05 12:33] VITALS: BP 130/63
[2022-06-05] MEDS ORDERED: RT-ALBUTEROL/IPRATROPIUM 3 ML (DUONEB) VIAL IH SCH (15:00)
--- NOTE | 2022-06-05 22:30 | Discharge Summary ---
Discharge Summary Hospital Course Problems/Dx: (1) Acute on chronic respiratory failure with hypoxemia Status: Acute (2) Bradycardia (3) Acute exacerbation of chronic obstructive pulmonary disease (COPD) Status: Acute (4) Sepsis Status: Acute (5) Primary hypertension (6) Mixed hyperlipidemia (7) History of cerebrovascular accident with residual deficit Status: Chronic (8) Permanent atrial fibrillation Status: Chronic (9) Colitis Status: Acute (10) PNA (pneumonia) Status: Acute Qualifiers: Qualified Codes: J18.9 - Pneumonia, unspecified organism (11) Acute and chronic respiratory failure with hypoxia Status: Acute (12) Dementia Status: Acute (13) Cardiac pacemaker in situ Hospital Course Date of Admission: May 31, 2022 at 14:23 Admission Diagnosis : Acute on chronic respiratory failure with hypoxia and hypercapnia Family Physician/Provider: Jason Johnson MD Date of Discharge: 06/05/22 Discharge Diagnosis: Acute on chronic respiratory failure with hypoxia and hypercapnia Hospital Course: Citlaly Salazar is an 82 year old female who was admitted with acute on chronic respiratory failure with hypoxia and hypercapnia. She was initially requiring BiPAP. She was given steroids and breathing treatments for COPD. She was given IV antibiotics for pneumonia. She had issues with bradycardia and required atropine. Her beta leeanna was discontinued. She had some non-specific coliitis visualized on CT which could be followed up with endoscopy if appropriate. She improved and was discharged back to [facility] in stable condition. She should follow up with her PCP in a week or two. Labs and Pending Lab Test: Laboratory Tests 06/05/22 05:43: White Blood Count 6.3, Red Blood Count 3.12L, Hemoglobin 8.8L, Hematocrit 28L, Mean Corpuscular Volume 89, Mean Corpuscular Hemoglobin 28, Mean Corpuscular Hemoglobin Concent 32, Red Cell Distribution Width 15.2H, Platelet Count 195, Mean Platelet Volume 10.9, Immature Granulocyte % (Auto) 0, Neutrophils (%) (Auto) 65, Lymphocytes (%) (Auto) 24, Monocytes (%) (Auto) 8, Eosinophils (%) (Auto) 3, Basophils (%) (Auto) 0, Neutrophils # (Auto) 4.1, Lymphocytes # (Auto) 1.5, Monocytes # (Auto) 0.5, Eosinophils # (Auto) 0.2, Basophils # (Auto) 0.0, Immature Granulocyte # (Auto) 0.0, Sodium Level 139, Potassium Level 3.8, Chloride Level 109H, Carbon Dioxide Level 23, Anion Gap 7, Blood Urea Nitrogen 20H, Creatinine 0.77, Estimat Glomerular Filtration Rate 78, BUN/Creatinine Ratio 26, Glucose Level 84, Calcium Level 8.7, Corrected Calcium 9.6, Phosphorus Level 2.6, Magnesium Level 1.9, Total Bilirubin 0.9, Aspartate Amino Transf (AST/SGOT) 15, Alanine Aminotransferase (ALT/SGPT) 16, Alkaline Phosphatase 57, Total Protein 5.1L, Albumin 2.9L Microbiology 05/31/22 Blood Culture - Final, Complete No growth 05/31/22 Urine Culture - Final, Complete NO GROWTH Home Meds Active Reported Docusate Sodium 100 Mg Capsule 100 Mg PO BID Milk of Magnesia (Magnesium Hydroxide) 2,400 Mg/10 Ml Oral.susp 30 Ml PO DAILY PRN Breo Ellipta 200-25 Mcg INH (Fluticasone/Vilanterol) 200 Mcg-25 Mcg/Dose Blst.w.dev 1 Puff INH DAILY RINSE AND SPIT MOUTH WITH WATER AFTER EACH USE Lisinopril 2.5 Mg Tablet 2.5 Mg PO DAILY HOLD FOR SBP LESS THAN 100 OR DBP LESS THAN 60 Vitamin C (Ascorbate Calcium) 500 Mg Tablet 500 Mg PO BID Xanax (Alprazolam) 0.25 Mg Tablet 0.25 Mg PO HS Tramadol HCl 50 Mg Tablet 50 Mg PO Q12H Fish Oil 1,200 mg Fish Oil (Fish Oil/Dha/Epa) 1,200 Mg-144 Mg-216 Mg Capsule 1 Each PO DAILY Senna S Tablet (Sennosides/Docusate Sodium) 8.6 Mg-50 Mg Tablet 1 Each PO Q12H Neurontin (Gabapentin) 300 Mg Capsule 300 Mg PO TID Hydrocodone-Acetamin 5-325 mg (Hydrocodone/Acetaminophen) 5 Mg-325 Mg Tablet 1 Tab PO Q6H PRN Preservision Areds Softgel (Vit A/C/E/Zinc/Co) 14,320-226 Capsule 1 Cap PO DAILY Vitamin D3 (Cholecalciferol (Vitamin D3)) 25 Mcg (1000 Unit) Capsule 25 Mcg PO DAILY Proventil Hfa (Albuterol Sulfate) 6.7 Gm Hfa.aer.ad 2 Puff INH Q6H PRN Meloxicam 15 Mg Tablet 15 Mg PO 1400 Furosemide 40 Mg Tablet 60 Mg PO DAILY TAKES 1 & (20MG) TABS Potassium Chloride 20 Meq Tab.er.prt 20 Meq PO DAILY Amlodipine Besylate 5 Mg Tablet 5 Mg PO DAILY HOLD FOR SBP <100 OR HR <60 Spironolactone 25 Mg Tablet 12.5 Mg PO DAILY TAKES OF A 25MG TAB Pravastatin Sodium 10 Mg Tablet 10 Mg PO HS Eliquis (Apixaban) 5 Mg Tablet 5 Mg PO Q12H Citalopram HBr (Citalopram Hydrobromide) 10 Mg Tablet 10 Mg PO HS Xalatan (Latanoprost) 2.5 Ml Drops 1 Drop OU HS Amitriptyline HCl 25 Mg Tablet 25 Mg PO HS Ropinirole HCl 1 Mg Tablet 1 Mg PO HS Assessment/Pt Instructions See instructions Discharge Planning: >30 minutes discharge planning Discharge Instructions Discharge Diet: No Restrictions Activity as Tolerated: Yes Discharge Physical Examination Vital Signs Vital Signs Date Time Temp Pulse Resp B/P (MAP) Pulse Ox O2 Delivery O2 Flow Rate FiO2 06/05/22 12:33 36.6 68 18 130/63 (85) 95 Nasal Cannula 2.00 06/05/22 06:54 30 General Appearance: No Apparent Distress, Chronically ill Respiratory: Lungs Clear, No Respiratory Distress Cardiovascular: Regular Rate, Rhythm, No Murmur Gastrointestinal: Normal Bowel Sounds, Soft Extremity: Normal Inspection, No Pedal Edema Neurologic/Psychiatric: Alert, Normal Mood/Affect Allergies: Coded Allergies: doxycycline (Unverified Allergy, Mild, 11/26/17) Copy Copies To 1: JASON JOHNSON MD Discharge Summary Date of Admission May 31, 2022 at 14:23 Date of Discharge Jun 05, 2022 at 12:55 Discharge Date: Jun 05, 2022 Discharge Time: 12:55 Admission Diagnosis Acute hypoxic respiratory failure Discharge Diagnosis (1) Bradycardia (2) Acute exacerbation of chronic obstructive pulmonary disease (COPD) Status: Acute (3) Sepsis Status: Acute (4) Primary hypertension (5) Mixed hyperlipidemia (6) History of cerebrovascular accident with residual deficit Status: Chronic (7) Permanent atrial fibrillation Status: Chronic (8) Acute on chronic respiratory failure with hypoxemia Status: Acute (9) Colitis Status: Acute (10) PNA (pneumonia) Status: Acute Qualifiers: Qualified Codes: J18.9 - Pneumonia, unspecified organism (11) Acute and chronic respiratory failure with hypoxia Status: Acute (12) Dementia Status: Acute (13) Cardiac pacemaker in situ MARCO A CÁRDENAS MD Jun 05, 2022 22:06
== END 2022-06-05 12:55 | DRG 871 ==
LOC: ER 09:39 → EDUNIT# 09:39 → ICU 14:23 → 4TH 06-04 10:56
PROVIDERS: ADMIT Family Medicine; ATTEND Internal Medicine
PROC: 5A09357 Assistance with Respiratory Ventilation, Less than 24 Consecutive Hours, Continuous Positive Airway Pressure (ICD-10-PCS; principal; 2022-05-31)
DX: A41.9 Sepsis, unspecified organism (principal); J18.9 Pneumonia, unspecified organism; J96.21 Acute and chronic respiratory failure with hypoxia; J96.22 Acute and chronic respiratory failure with hypercapnia; J44.0 Chronic obstructive pulmonary disease with (acute) lower respiratory infection; I50.32 Chronic diastolic (congestive) heart failure; J44.1 Chronic obstructive pulmonary disease with (acute) exacerbation; J90 Pleural effusion, not elsewhere classified; I48.21 Permanent atrial fibrillation; F03.90 Unspecified dementia, unspecified severity, without behavioral disturbance, psychotic disturbance, mood disturbance, and anxiety; Z66 Do not resuscitate; Z79.899 Other long term (current) drug therapy; Z95.0 Presence of cardiac pacemaker; I44.7 Left bundle-branch block, unspecified; I11.0 Hypertensive heart disease with heart failure; Z86.73 Personal history of transient ischemic attack (TIA), and cerebral infarction without residual deficits; K21.9 Gastro-esophageal reflux disease without esophagitis; M19.90 Unspecified osteoarthritis, unspecified site; G89.29 Other chronic pain; M54.9 Dorsalgia, unspecified; H40.9 Unspecified glaucoma; F41.9 Anxiety disorder, unspecified; F32.A Depression, unspecified; Z20.822 Contact with and (suspected) exposure to COVID-19; K52.9 Noninfective gastroenteritis and colitis, unspecified; R00.1 Bradycardia, unspecified; E78.2 Mixed hyperlipidemia; I35.0 Nonrheumatic aortic (valve) stenosis; I27.20 Pulmonary hypertension, unspecified; J22 Unspecified acute lower respiratory infection
CPT/HCPCS: 36415; 51702; 71045; 74177; 80053; 81000; 82805; 83605; 83735; 83880; 84100; 84484; 85007; 85025; 85027; 85610; 85730; 86141; 87040; 87088; 87636; 93005; 94640; 94660; 94760

== ENCOUNTER → 2022-08-28 | Outpatient (CLI) | payer MEDICARE ==
[~2022-08-28] MED LIST changes: +ALBU8.5H6 IH; +ALPR0.25 PO; +ASCO-262 PO; +DOCU100C37 PO; +FISH1CAP15 PO; +FLUT1BLS INH; +LISI2.5T13 PO; +MOM10U PO; -RT-ALBUINH IH; +SENN-145 PO
--- NOTE | 2022-08-28 16:05 | Diagnostic Imaging Report ---
PROCEDURE: Pelvic comp/transvaginal sonogram. TECHNIQUE: Complete transabdominal and transvaginal pelvic ultrasound was performed. In addition, limited pelvic Doppler was performed. INDICATION: Pelvic pain and discharge. Uterus is anteverted measuring 9.1 x 4.6 x 6.9 cm. There is an area of heterogeneity and increased echogenicity within the uterus measuring 5.1 x 3.4 x 4.8 cm consistent with a large calcified fibroid. This correlates to the calcified mass noted on CT in May. There is a smaller area measuring approximately 3 cm as well. Endometrium cannot be visualized. The ovaries were not visualized. No adnexal mass or free fluid is detected. IMPRESSION: Findings suggestive of calcified uterine fibroids. No other significant abnormality is identified. Dictated by: Dictated on workstation # [id number]
== END ==
LOC: RAD 14:08
PROVIDERS: ATTEND Surgery
DX: R10.2 Pelvic and perineal pain (principal); N89.8 Other specified noninflammatory disorders of vagina
CPT/HCPCS: 76830; 76856

== ENCOUNTER 2022-10-08 06:40 | Observation (INO) | payer MEDICARE ==
[~2022-10-08] VITALS: Ht 170.1 cm; Wt 67.3 kg
--- NOTE | 2022-10-08 06:53 | ED Dyspnea ---
General Stated Complaint: SOA Source of Information: Patient, EMS Exam Limitations: No Limitations History of Present Illness Date Seen by Provider: Oct 08, 2022 Time Seen by Provider: 06:43 Initial Comments 82-year-old female from local nursing facility presents via EMS for reported hypoxia. Record review shows she typically uses 2-5 L of oxygen via nasal cannula at night. Nursing staff report that this is typically 2 L. She was on 2 L when she went to sleep last night and woke up and her oxygen had apparently fallen off through the night. The patient states she woke up not able to catch her breath. She denies any chest pain. She has had no recent fevers or increase in her chronic cough but she does state that she coughs frequently. On arrival she states she feels back to normal. EMS reports that her oxygen on 2 L nasal cannula was in the low 80s upon their arrival to the nursing facility. They increased her to 6 L and had improvement in her oxygen saturation, 94-96% during transport. Allergies and Home Medications Allergies Coded Allergies: doxycycline (Unverified Allergy, Mild, 11/26/17) Patient Home Medication List Home Medication List Reviewed: Yes Albuterol Sulfate (Proventil Hfa) 6.7 Gm Hfa.aer.ad, 2 PUFF INH Q6H PRN for SHORTNESS OF BREATH, (Reported) Entered as Reported by: ABHIJEET FELIPE on 03/28/22 1422 Alprazolam (Xanax) 0.25 Mg Tablet, 0.25 MG PO HS, (Reported) Entered as Reported by: ABHIJEET FELIPE on 06/01/22 1114 Amitriptyline HCl (Amitriptyline HCl) 25 Mg Tablet, 25 MG PO HS, (Reported) Entered as Reported by: SREEDHAR MCMANUS on 09/26/20 1610 Amlodipine Besylate (Amlodipine Besylate) 5 Mg Tablet, 5 MG PO DAILY, (Reported) Entered as Reported by: ABHIJEET FELIPE on 05/25/21 1413 Apixaban (Eliquis) 5 Mg Tablet, 5 MG PO Q12H, (Reported) Entered as Reported by: ABHIJEET FELIPE on 02/24/21 1308 Ascorbate Calcium (Vitamin C) 500 Mg Tablet, 500 MG PO BID, (Reported) Entered as Reported by: ABHIJEET FELIPE on 06/01/22 1114 Cholecalciferol (Vitamin D3) (Vitamin D3) 25 Mcg (1000 Unit) Capsule, 25 MCG PO DAILY, (Reported) Entered as Reported by: ABHIJEET FELIPE on 03/28/22 1424 Citalopram Hydrobromide (Citalopram HBr) 10 Mg Tablet, 10 MG PO HS, (Reported) Entered as Reported by: ABHIJEET FELIPE on 02/24/21 1308 Docusate Sodium (Docusate Sodium) 100 Mg Capsule, 100 MG PO BID, (Reported) Entered as Reported by: ABHIJEET FELIPE on 06/01/22 111 Fish Oil/Dha/Epa (Fish Oil 1,200 mg Fish Oil) 1,200 Mg-144 Mg-216 Mg Capsule, 1 EACH PO DAILY, (Reported) Entered as Reported by: ABHIJEET FELIPE on 06/01/22 111 Fluticasone/Vilanterol (Breo Ellipta 200-25 Mcg INH) 200 Mcg-25 Mcg/Dose Blst.w.dev, 1 PUFF INH DAILY, (Reported) Entered as Reported by: ABHIJEET FELIPE on 06/01/22 111 Furosemide (Furosemide) 40 Mg Tablet, 60 MG PO DAILY, (Reported) Entered as Reported by: ABHIJEET FELIPE on 03/28/22 1156 Gabapentin (Neurontin) 300 Mg Capsule, 300 MG PO TID, (Reported) Entered as Reported by: ABIHJEET FELIPE on 06/01/22 111 Hydrocodone/Acetaminophen (Hydrocodone-Acetamin 5-325 mg) 5 Mg-325 Mg Tablet, 1 TAB PO Q6H PRN for PAIN-MODERATE (5-7), (Reported) Entered as Reported by: ABHIJEET FELIPE on 06/01/22 111 Latanoprost (Xalatan) 2.5 Ml Drops, 1 DROP OU HS, (Reported) Entered as Reported by: ABHIJEET FELIPE on 09/28/20 0910 Lisinopril (Lisinopril) 2.5 Mg Tablet, 2.5 MG PO DAILY, (Reported) Entered as Reported by: ABHIJEET FELIPE on 06/01/22 1114 Magnesium Hydroxide (Milk of Magnesia) 2,400 Mg/10 Ml Oral.susp, 30 ML PO DAILY PRN for CONSTIPATION-7TH LINE, (Reported) Entered as Reported by: ABHIJEET FELIPE on 06/01/22 1114 Meloxicam (Meloxicam) 15 Mg Tablet, 15 MG PO 1400, (Reported) Entered as Reported by: ABHIJEET FELIPE on 03/28/22 1422 Potassium Chloride (Potassium Chloride) 20 Meq Tab.er.prt, 20 MEQ PO DAILY, (Reported) Entered as Reported by: ABHIJEET FELIPE on 03/28/22 1156 Pravastatin Sodium (Pravastatin Sodium) 10 Mg Tablet, 10 MG PO HS, (Reported) Entered as Reported by: ABHIJETE FELIPE on 03/03/21 0844 Ropinirole HCl (Ropinirole HCl) 1 Mg Tablet, 1 MG PO HS, (Reported) Entered as Reported by: ESTEFANÍA FIORE on 11/26/17 0843 Sennosides/Docusate Sodium (Senna S Tablet) 8.6 Mg-50 Mg Tablet, 1 EACH PO Q12H, (Reported) Entered as Reported by: ABHIJEET FELIPE on 06/01/22 1114 Spironolactone (Spironolactone) 25 Mg Tablet, 12.5 MG PO DAILY, (Reported) Entered as Reported by: GALDINO FELDMAN on 04/11/21 0953 Tramadol HCl (Tramadol HCl) 50 Mg Tablet, 50 MG PO Q12H, (Reported) Entered as Reported by: ABHIJEET FELIPE on 06/01/22 1114 Vit A/C/E/Zinc/Co (Preservision Areds Softgel) 14,320-226 Capsule, 1 CAP PO DAILY, (Reported) Entered as Reported by: ABHIJEET FELIPE on 03/28/22 1424 Review of Systems Review of Systems Constitutional: no symptoms reported EENTM: no symptoms reported Respiratory: short of breath Cardiovascular: no symptoms reported Gastrointestinal: no symptoms reported Genitourinary: no symptoms reported Musculoskeletal: no symptoms reported Skin: no symptoms reported Psychiatric/Neurological: No Symptoms Reported Endocrine: No Symptoms Reported Hematologic/Lymphatic: No Symptoms Reported Past Ggkmztz-Wvjiay-Gzdmgt Hx Patient Social History Tobacco Use?: Yes Use of E-Cig and/or Vaping dev: No Substance use?: No Alcohol Use?: No Immunizations Up To Date First/Initial COVID19 Vaccinat: UNK Second COVID19 Vaccination Ronald: UNK Third COVID19 Vaccination Date: UNK Seasonal Allergies Seasonal Allergies: Yes Past Medical History Surgery/Hospitalization HX: Pacemaker placement, COPD, CHF, DEMENTIA, HTN, RESTLESS LEG, GERD, CKD, CONSTIPATION, OSTEOARTHRITIS, GLAUCOMA, HEARING LOSS, ASTHMA Surgeries: Yes Section, Pacemaker, Tonsillectomy Respiratory: Yes Asthma, Sleep Apnea, COPD Currently Using CPAP: No Cardiac: Yes (CHF; LBBB) Atrial Fibrillation, High Cholesterol, Hypertension, Valvular Heart Disease Neurological: Yes (rest less leg syndrome) Dementia, Stroke Reproductive Disorders: No Sexually Transmitted Disease: No HIV/AIDS: No Genitourinary: Yes Renal Failure Gastrointestinal: Yes Gastroesophageal Reflux, Chronic Constipation Musculoskeletal: Yes Arthritis, Chronic Back Pain Endocrine: No 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 0.6oz. 77.540135po; 29.04 BMI Method:Stated General Appearance: No Apparent Distress, WD/WN HEENT: Normal ENT Inspection, Pharynx Normal Neck: Full Range of Motion, Normal Inspection, Non Tender, Supple Respiratory: Chest Non Tender, Lungs Clear, Normal Breath Sounds, No Accessory Muscle Use, No Respiratory Distress Cardiovascular: Regular Rate, Rhythm, Systolic Murmur (4/6 holosystolic murmur heard at the apex in the lower left sternal border the past but audible throughout) Gastrointestinal: Normal Bowel Sounds, No Organomegaly, Non Tender, Soft Extremity: Normal Capillary Refill, Normal Inspection, Normal Range of Motion, Non Tender, No Calf Tenderness, No Pedal Edema Neurologic/Psychiatric: Alert, Oriented x3 Skin: Normal Color, Warm/Dry Progress/Results/Core Measures Results/Orders Lab Results Laboratory Tests Test 10/08/22 07:05 10/08/22 09:10 Range/Units White Blood Count 13.8 H 4.3-11.0 10^3/uL Red Blood Count 3.69 L 3.80-5.11 10^6/uL Hemoglobin 9.3 L 11.5-16.0 g/dL Hematocrit 30 L 35-52 % Mean Corpuscular Volume 82 80-99 fL Mean Corpuscular Hemoglobin 25 25-34 pg Mean Corpuscular Hemoglobin Concent 31 L 32-36 g/dL Red Cell Distribution Width 17.8 H 10.0-14.5 % Platelet Count 333 130-400 10^3/uL Mean Platelet Volume 10.6 9.0-12.2 fL Immature Granulocyte % (Auto) 0 % Neutrophils (%) (Auto) 85 H 42-75 % Lymphocytes (%) (Auto) 5 L 12-44 % Monocytes (%) (Auto) 5 0-12 % Eosinophils (%) (Auto) 4 0-10 % Basophils (%) (Auto) 1 0-10 % Neutrophils # (Auto) 11.6 H 1.8-7.8 10^3/uL Lymphocytes # (Auto) 0.7 L 1.0-4.0 10^3/uL Monocytes # (Auto) 0.6 0.0-1.0 10^3/uL Eosinophils # (Auto) 0.6 H 0.0-0.3 10^3/uL Basophils # (Auto) 0.1 0.0-0.1 10^3/uL Immature Granulocyte # (Auto) 0.1 0.0-0.1 10^3/uL Neutrophils % (Manual) 87 % Lymphocytes % (Manual) 6 % Monocytes % (Manual) 2 % Eosinophils % (Manual) 5 % Polychromasia SLIGHT Hypochromasia SLIGHT Anisocytosis SLIGHT Elliptocytes MODERATE Sodium Level 143 135-145 MMOL/L Potassium Level 3.7 3.6-5.0 MMOL/L Chloride Level 108 H 98-107 MMOL/L Carbon Dioxide Level 21 21-32 MMOL/L Anion Gap 14 5-14 MMOL/L Blood Urea Nitrogen 15 7-18 MG/DL Creatinine 0.77 0.60-1.30 MG/DL Estimat Glomerular Filtration Rate 78 BUN/Creatinine Ratio 19 Glucose Level 135 H 70-105 MG/DL Calcium Level 9.3 8.5-10.1 MG/DL Corrected Calcium 9.5 8.5-10.1 MG/DL Total Bilirubin 0.8 0.1-1.0 MG/DL Aspartate Amino Transf (AST/SGOT) 14 5-34 U/L Alanine Aminotransferase (ALT/SGPT) 6 0-55 U/L Alkaline Phosphatase 100 40-136 U/L Troponin I 0.041 H 0.081 H <0.028 NG/ML Total Protein 7.0 6.4-8.2 GM/DL Albumin 3.8 3.2-4.5 GM/DL My Orders Orders - FLORIMARIAA Parsons DO Chest 1 View, Ap/Pa Only (10/08/22 06:48) Troponin I [place] (10/08/22 06:48) Ekg Tracing (10/08/22 06:48) Cbc With Automated Diff (10/08/22 06:48) Comprehensive Metabolic Panel (10/08/22 06:48) Manual Differential (10/08/22 07:05) Blood Culture (10/08/22 07:29) Ceftriaxone 1 Gm Pre-Mix (Rocephin 1 Gm (10/08/22 07:30) Troponin I [place] (10/08/22 08:57) Ed Admission (Communication) (10/08/22 10:02) Medications Given in ED Current Medications Medications Dose Ordered Sig/Jimi Route Start Time Stop Time Status Last Admin Dose Admin Ceftriaxone Sodium/Dextrose 50 ml @ 100 mls/hr ONCE ONCE IV 10/08/22 07:30 10/08/22 08:00 DC 10/08/22 08:06 100 MLS/HR Vital Signs/I&O 10/08/22 10/08/22 06:42 08:48 Temp 36.5 Pulse 77 Resp 20 B/P (MAP) 141/81 (101) Pulse Ox 93 O2 Delivery Nasal Cannula Nasal Cannula O2 Flow Rate 2.00 Comment Likely junctional rhythm at 75 bpm. Intervals. Left axis deviation. Left bundle branch block. Negative Sgarbossa criteria no ectopy. Critical Care Note Critical Care Total Time (minutes) 65 Departure Communication (Admissions) The patient is hemodynamically stable with heart rates in the 70s. Normotensive. Slight hypoxia but stable on 2 L of oxygen via nasal cannula alone. She does have right lower lobe consolidation which radiologist thinks is atelectasis versus pneumonia. She does have leukocytosis with a little bit of a left shift. She is not in any respiratory distress. Caution we will go ahead and treat her as though this is a pneumonia. Given dose of IV Rocephin here and she will be discharged back to the nursing facility with order for Levaquin daily x7 days. I also wrote for her to have oxygen as needed throughout the day to maintain oxygen saturation greater than 90%. I believe she is safe to be cared for at the nursing facility at this time but did give strict return precautions and if returns would likely need admission to the hospital. She states understanding. This was relayed to the nursing facility as well. Her troponin is negative and her EKG is nonischemic I do not think there is a cardiac component to this at this time. Electrolytes are unremarkable and she has normal renal function. She is not anemic. Initially plans to discharge patient however multiple antibiotic elevated. Repeat troponin was higher still. With the elevated troponin I believe she would benefit from observation in the hospital and trending of troponins. She is comfortable agreeable this plan of care. Spoke with Dr. Lyman who accepts the patient in admission. I spoke with Dr. Lemons from cardiology who agrees to consult. Impression Primary Impression: Right lower lobe pneumonia Qualified Codes: J18.9 - Pneumonia, unspecified organism Additional Impressions: Hypoxia Elevated troponin Disposition: ADMITTED INPATIENT Condition: Stable Departure-Patient Inst. Referrals: JUSTIN JOHNSON MD (PCP/Family) Primary Care Physician Patient Instructions: Pneumonia, Adult (DC) Add. Discharge Instructions: You were seen in the emergency department today for shortness of breath. He did require small amount of oxygen to maintain oxygen levels in an acceptable range. Recommend he use this at the nursing facility as needed even during the day for the next several days. I have given you a first dose of antibiotics and an IV here. Continue your oral antibiotics as prescribed until they are gone. If your symptoms worsen in any way, specifically if you have severe shortness of breath despite oxygen therapy, vomiting and inability to keep down fluids or any other concerning symptoms please return to the emergency department and he would likely need to be admitted however I believe it safe to treat you at the nursing facility at this point. Please follow-up with your primary doctor in the next 48 hours for reevaluation MARIAA RUBY DO Oct 08, 2022 06:53
--- NOTE | 2022-10-08 07:12 | Diagnostic Imaging Report ---
CLINICAL INDICATIONS: Patient with shortness of air, cough, congestion. EXAM: Portable chest x-ray upright view. COMPARISON: Chest x-ray dated 06/04/2023. FINDINGS: There is cardiomegaly which has progressed. There is mild pulmonary vascular prominence centrally which is stable with no significant peripheral congestion. There is interval progression of small to moderate amount of groundglass opacification/consolidation involving right midlung field and right lung base. There is progression of left basilar atelectasis versus infiltrate. There is blunting of the costophrenic angle region of the left where a pleural effusion may be considered. There is no pneumothorax. Cardiac pacemaker again seen. IMPRESSION: 1: There is interval progression of infiltrates involving the right lung and slight progression of left lung base atelectasis versus infiltrate. 2: There is small left pleural effusion. 3: There is cardiomegaly again noted. Dictated by: Dictated on workstation # [id number]
[2022-10-08 07:13] LABS: BASOPHILS # (AUTO) 0.1 10^3/uL (0.0-0.1); BASOPHILS % (AUTO) 1 % (0-10); EOSINOPHILS # (AUTO) 0.6 10^3/uL (0.0-0.3); EOSINOPHILS % (AUTO) 4 % (0-10); HEMATOCRIT 30 % (35-52); HEMOGLOBIN 9.3 g/dL (11.5-16.0); LYMPHOCYTES # (AUTO) 0.7 10^3/uL (1.0-4.0); LYMPHOCYTES % (AUTO) 5 % (12-44); MEAN CORPUSCULAR HEMOGLOBIN 25 pg (25-34); MEAN CORPUSCULAR HGB CONC 31 g/dL (32-36); MEAN CORPUSCULAR VOLUME 82 fL (80-99); MEAN PLATELET VOLUME 10.6 fL (9.0-12.2); MONOCYTES # (AUTO) 0.6 10^3/uL (0.0-1.0); MONOCYTES % (AUTO) 5 % (0-12); NEUTROPHILS # (AUTO) 11.6 10^3/uL (1.8-7.8); NEUTROPHILS % (AUTO) 85 % (42-75); PLATELET COUNT 333 10^3/uL (130-400); WHITE BLOOD COUNT 13.8 10^3/uL (4.3-11.0)
[2022-10-08 07:27] LABS: ALBUMIN 3.8 GM/DL (3.2-4.5); POTASSIUM 3.7 MMOL/L (3.6-5.0)
[2022-10-08 07:28] LABS: CALCIUM 9.3 MG/DL (8.5-10.1)
[2022-10-08] MEDS ORDERED: cefTRIAXone 1 GM PRE-MIX 50 ML IV ONE (07:30)
[2022-10-08 07:31] LABS: BILIRUBIN,TOTAL 0.8 MG/DL (0.1-1.0)
[2022-10-08 07:33] LABS: CREATININE SERUM 0.77 MG/DL (0.60-1.30)
[2022-10-08 07:36] LABS: EOSINOPHILS % (MANUAL) 5 %; LYMPHOCYTES % (MANUAL) 6 %; MONOCYTES % (MANUAL) 2 %; NEUTROPHILS % (MANUAL) 87 %
[2022-10-08 07:37] LABS: ANISOCYTOSIS SLIGHT; ELLIPT/OVALOCYTES MODERATE; HYPOCHROMASIA SLIGHT; POLYCHROMASIA SLIGHT
--- NOTE | 2022-10-08 10:32 | History & Physical-Hospitalist ---
History of Present Illness HPI/Chief Complaint Chief complaint: Hypoxia with shortness of breath HPI: This is an 89-year-old female of [facility] who resides in a fci who has a past medical history of dementia who presented to the ER with shortness of breath and hypoxia. She usually uses oxygen at night only. Work-up revealed right lower lobe pneumonia and slightly elevated troponin so the decision was made to place her in observation for cardiology consultation IV antibiotics. Cefepime will be initiated to cover for facility acquired pneumonia resistant organism. She is a poor historian with dementia. Source: RN/MD Exam Limitations: clinical condition (Dementia) Date Seen 10/08/22 Time Seen by a Provider: 11:00 Attending Physician Jason Boudreaux MD PCP Admitting Physician: Audelia Chatman DO Attending Physician: Audelia Chatman DO Referring Physician Date of Admission Oct 08, 2022 at 10:04 Home Medications & Allergies Home Medications Reviewed patient Home Medication Reconciliation performed by pharmacy medication reconciliations data collection technician and/or nursing. Patients Allergies have been reviewed. Allergies Allergies Coded Allergies doxycycline (Unverified Allergy, Mild, 11/26/17) Past Zqrhkec-Mraobd-Cbrxkl Hx Patient Social History Marrital Status: single Employed/Student: retired Tobacco Use?: No Smoking Status: Unknown if Ever Smoked Use of E-Cig and/or Vaping dev: No Substance use?: No Alcohol Use?: No Immunizations Up To Date Date of Influenza Vaccine: Jun 24, 2020 First/Initial COVID19 Vaccinat: UNK Second COVID19 Vaccination Ronald: UNK Tetanus Booster (TDap): Unknown Hepatitis A: Yes Hepatitis B: Yes Date of Pneumonia Vaccine: Oct 30, 2016 Seasonal Allergies Seasonal Allergies: Yes Current Status Communicates: Verbally Primary Language: Stateless Preferred Spoken Language: Stateless Is interpretation needed?: No Past Medical History Surgeries: Section, Pacemaker, Tonsillectomy Asthma, Sleep Apnea, COPD Currently Using CPAP: No Atrial Fibrillation, High Cholesterol, Hypertension, Valvular Heart Disease Dementia, Stroke Sexually Transmitted Disease: No HIV/AIDS: No Renal Failure Gastroesophageal Reflux, Chronic Constipation Arthritis, Chronic Back Pain Glaucoma Loss of Vision: Bilateral Hearing Impairment: Hard of Hearing Anxiety, Depression Blood Disorders: No Adverse Reaction/Blood Tranf: No (N/A) Family Medical History Reviewed Nursing Family Hx Heart Disease, COPD, Renal Disease, Other Conditions/Hx Review of Systems Constitutional: see HPI, dizziness, malaise, weakness Respiratory: dyspnea on exertion Physical Exam Physical Exam Vital Signs Vital Signs - First Documented 10/08/22 10/08/22 06:42 08:48 Temp 36.5 Pulse 77 Resp 20 B/P (MAP) 141/81 (101) Pulse Ox 93 O2 Delivery Nasal Cannula O2 Flow Rate 2.00 Capillary Refill : Less Than 3 Seconds Height, Weight, BMI Height: 5'4.00" Weight: 182lbs. 0.6oz. 77.121336cj; 29.04 BMI Method:Stated General Appearance: No Apparent Distress, Chronically ill, Thin Respiratory: No Accessory Muscle Use, No Respiratory Distress, Decreased Breath Sounds Cardiovascular: Regular Rate, Rhythm, Systolic Murmur Neurologic/Psychiatric: Alert, Depressed Affect, Disoriented, Motor Weakness (Generalized) Results Results/Procedures Labs Laboratory Tests 10/08/22 07:05 Patient resulted labs reviewed. Assessment/Plan Admission Diagnosis Assessment: Facility acquired pneumonia Elevated troponin consistent with type II NSTEMI Dementia profound [facility] patient Leukocytosis Plan: Cardiology consult Check echo Monitor closely IV antibiotics Oxygen supplementation Admission Status: Observation AUDELIA CHATMAN DO Oct 08, 2022 10:32
[2022-10-08 10:56] LABS: ABG BASE EXCESS 3.1 MMOL/L (-2.5-2.5); ABG OXYGEN SATURATION 95 % (94-100); ABG PCO2 43 MMHG (35-45); ABG PH 7.42 (7.37-7.43); ABG PO2 65 MMHG (79-93); ABG TCO2 28.8 MMOL/L (21.0-31.0)
[2022-10-08 10:58] LABS: ALLENS TEST YES-POS; INSPIRED O2 2L; PATIENT TEMP 36.5; VENTILATOR NO
[2022-10-08] MEDS ORDERED: ONDANSETRON 4 MG/2 ML (SDV) Z0FRAN IV PRN (11:15)
[2022-10-08] MEDS ORDERED: HYDROmorphone 2 MG/ML VIAL (DILAUDID) IV PRN (11:15)
[2022-10-08] MEDS ORDERED: MILK OF MAGNESIA 400 MG/5 ML 30 ML UDC PO PRN (11:15)
[2022-10-08] MEDS ORDERED: ONDANSETRON 4 MG (ZOFRAN) ORAL DISSOLVE TAB PO PRN (11:15)
[2022-10-08] MEDS ORDERED: BISACODYL 10 MG SUPP (DULCOLAX) PR PRN (11:15)
[2022-10-08] MEDS ORDERED: CALCIUM CARBONATE 500 MG (TUMS) TAB.CHEW PO PRN (11:15)
[2022-10-08] MEDS ORDERED: polyethylene glycoL POWDER 17 GM (MIRALAX) PACK PO PRN (11:15)
[2022-10-08] MEDS ORDERED: ANTACID SUSP 30 ML UDC (MYLANTA) PO PRN (11:15)
[2022-10-08] MEDS ORDERED: diphenhydrAMINE 25 MG TAB (BENADRYL) PO PRN (11:15)
[2022-10-08] MEDS ORDERED: LACTULOSE SYRUP 10GM/15ML (ENULOSE) 30ML UDC PO PRN (11:15)
[2022-10-08] MEDS ORDERED: diphenhydrAMINE 50 MG/ML INJ (BENADRYL) IVP PRN (11:15)
[2022-10-08] MEDS: NS IV 1000 ML 1,000 ML IV SCH (11:30)
[2022-10-08 12:00] VITALS: BP 156/80
[2022-10-08 12:19] VITALS: BP 141/81
[2022-10-08] MEDS ORDERED: RT-ALBUTEROL SULF 2.5 MG/3 ML PRE-MIX VIAL INH PRN (13:00)
[2022-10-08] MEDS: ENOXAPARIN 80 MG/0.8 ML (LOVENOX) SYR SC SCH (13:48)
[2022-10-08] MEDS: RT-ALBUTEROL SULF 2.5 MG/3 ML PRE-MIX VIAL INH SCH ×2 (14:21→21:43)
[2022-10-08 15:26] VITALS: BP 141/79
--- NOTE | 2022-10-08 15:54 | Consultation-Cardiology ---
HPI-Cardiology Cardiology Consultation: Date of Consultation 10/08/22 Time Seen by a Provider: 15:00 Date of Admission Attending Physician Jason Boudreaux MD Admitting Physician Admitting Physician: Audelia Chatman DO Attending Physician: Audelia Chatman DO Consulting Physician KIA STILL MD, MA, FACP, FACC, [facility] [place], CCDS Physician requesting consult: Dr Chatman HPI: Chief Complaint: Reason for Card consult: Elevated troponin 82 yo woman who is resident of a local intermediate and is on continuous oxygen supplement. Last nigh, while asleep, her oxygen fell off. She was found to be hypoxic in the morning. The [place] staff reapplied oxygen, but she was still somewhat hypoxic. She was sent to the ER where she was diagnosed with pneumonia and where her troponin was found to be mildly elevated. She has been hospit alized to Dr Chatman service The patient suffers from dementia. She is not able to provide any meaningful history. She does deny cp or palp or shortness of breath Review of Systems-Cardiology Review of Systems Constitutional: other (Due to dementia, patient is unable to provide a review of systems) QBH-Nlaqvi-Uaijfb Hx Patient Social History Marrital Status: single Employed/Student: retired Smoking Status: Unknown if Ever Smoked Have you traveled recently?: No Alcohol Use?: No Pt feels they are or have been: No Immunizations Up To Date Date of Pneumonia Vaccine: Oct 30, 2016 Date of Influenza Vaccine: Oct 08, 2022 Past Medical History PMH As described under Assessment. Family Medical History Family Medical History: Unable to obtain due to altered mental status Allergies and Home Medications Allergies Coded Allergies: doxycycline (Unverified Allergy, Mild, 11/26/17) Patient Home Medication List Home Medication List Reviewed: Yes Albuterol Sulfate (Proventil Hfa) 6.7 Gm Hfa.aer.ad, 2 PUFF INH Q6H PRN for SHORTNESS OF BREATH, (Reported) Entered as Reported by: ABHIJEET FELIPE on 03/28/22 1422 Alprazolam (Xanax) 0.25 Mg Tablet, 0.25 MG PO HS, (Reported) Entered as Reported by: ABHIJEET FELIPE on 06/01/22 1114 Amitriptyline HCl (Amitriptyline HCl) 25 Mg Tablet, 25 MG PO HS, (Reported) Entered as Reported by: SREEDHAR MCMANUS on 09/26/20 1610 Amlodipine Besylate (Amlodipine Besylate) 5 Mg Tablet, 5 MG PO DAILY, (Reported) Entered as Reported by: ABHIJEET FELIPE on 05/25/21 1413 Apixaban (Eliquis) 5 Mg Tablet, 5 MG PO Q12H, (Reported) Entered as Reported by: ABHIJEET FELIPE on 02/24/21 1308 Ascorbate Calcium (Vitamin C) 500 Mg Tablet, 500 MG PO BID, (Reported) Entered as Reported by: ABHIJEET FELIPE on 06/01/22 1114 Cholecalciferol (Vitamin D3) (Vitamin D3) 25 Mcg (1000 Unit) Capsule, 25 MCG PO DAILY, (Reported) Entered as Reported by: ABHIJEET FELIPE on 03/28/22 1424 Citalopram Hydrobromide (Citalopram HBr) 10 Mg Tablet, 10 MG PO HS, (Reported) Entered as Reported by: ABHIJEET FELIPE on 02/24/21 1308 Docusate Sodium (Docusate Sodium) 100 Mg Capsule, 100 MG PO BID, (Reported) Entered as Reported by: AHBIJEET FELIPE on 06/01/22 1114 Fish Oil/Dha/Epa (Fish Oil 1,200 mg Fish Oil) 1,200 Mg-144 Mg-216 Mg Capsule, 1 EACH PO DAILY, (Reported) Entered as Reported by: ABHIJEET FELIPE on 06/01/22 111 Fluticasone/Vilanterol (Breo Ellipta 200-25 Mcg INH) 200 Mcg-25 Mcg/Dose Blst.w.dev, 1 PUFF INH DAILY, (Reported) Entered as Reported by: ABHIJEET FELIPE on 06/01/22 1114 Furosemide (Furosemide) 40 Mg Tablet, 60 MG PO DAILY, (Reported) Entered as Reported by: ABHIJEET FELIPE on 03/28/22 1156 Gabapentin (Neurontin) 300 Mg Capsule, 300 MG PO TID, (Reported) Entered as Reported by: ABHIJEET FELIPE on 06/01/22 1114 Hydrocodone/Acetaminophen (Hydrocodone-Acetamin 5-325 mg) 5 Mg-325 Mg Tablet, 1 TAB PO Q6H PRN for PAIN-MODERATE (5-7), (Reported) Entered as Reported by: ABHIJEET FELIPE on 06/01/22 1114 Latanoprost (Xalatan) 2.5 Ml Drops, 1 DROP OU HS, (Reported) Entered as Reported by: ABHIJEET FELIPE on 09/28/20 0910 Lisinopril (Lisinopril) 2.5 Mg Tablet, 2.5 MG PO DAILY, (Reported) Entered as Reported by: ABHIJEET FELIPE on 06/01/22 1114 Magnesium Hydroxide (Milk of Magnesia) 2,400 Mg/10 Ml Oral.susp, 30 ML PO DAILY PRN for CONSTIPATION-7TH LINE, (Reported) Entered as Reported by: ABHIJEET FELIPE on 06/01/22 1114 Meloxicam (Meloxicam) 15 Mg Tablet, 15 MG PO 1400, (Reported) Entered as Reported by: ABHIJEET FELIPE on 03/28/22 1422 Potassium Chloride (Potassium Chloride) 20 Meq Tab.er.prt, 20 MEQ PO DAILY, (Reported) Entered as Reported by: ABHIJEET FELIPE on 03/28/22 1156 Pravastatin Sodium (Pravastatin Sodium) 10 Mg Tablet, 10 MG PO HS, (Reported) Entered as Reported by: ABHIJEET FELIPE on 03/03/21 0844 Ropinirole HCl (Ropinirole HCl) 1 Mg Tablet, 1 MG PO HS, (Reported) Entered as Reported by: ESTEFANÍA FIORE on 11/26/17 0843 Sennosides/Docusate Sodium (Senna S Tablet) 8.6 Mg-50 Mg Tablet, 1 EACH PO Q12H, (Reported) Entered as Reported by: ABHIJEET FELIPE on 06/01/22 1114 Spironolactone (Spironolactone) 25 Mg Tablet, 12.5 MG PO DAILY, (Reported) Entered as Reported by: GALDINO FELDMAN on 04/11/21 0953 Tramadol HCl (Tramadol HCl) 50 Mg Tablet, 50 MG PO Q12H, (Reported) Entered as Reported by: ABHIJEET FELIPE on 06/01/22 1114 Vit A/C/E/Zinc/Co (Preservision Areds Softgel) 14,320-226 Capsule, 1 CAP PO DAILY, (Reported) Entered as Reported by: ABHIJEET FELIPE on 03/28/22 1424 Physical Exam-Cardiology Physical Exam Vital Signs/I&O 10/08/22 10/08/22 10/08/22 10/08/22 06:42 08:48 11:41 12:00 Temp 36.5 37.2 Pulse 77 67 72 Resp 20 20 20 B/P (MAP) 141/81 (101) 143/90 156/80 (105) Pulse Ox 93 91 93 O2 Delivery Nasal Cannula Nasal Cannula Nasal Cannula Nasal Cannula O2 Flow Rate 2.00 2.00 2.00 10/08/22 10/08/22 10/08/22 10/08/22 12:13 12:19 14:21 14:22 Temp 36.5 Pulse 77 61 Pulse Ox 93 96 O2 Delivery Nasal Cannula Nasal Cannula O2 Flow Rate 2.00 2.00 FiO2 28 10/08/22 15:26 Temp 36.3 Pulse 61 Resp 18 B/P (MAP) 141/79 (99) Pulse Ox 94 O2 Delivery Nasal Cannula O2 Flow Rate 2.00 Capillary Refill : Less Than 3 Seconds Constitutional: No AAO x 3; well-developed, well-nourished, other (confused) HEENT: No PERRL, No EOMI, No hearing is well preserved Neck: No non-tender; carotid pulses are 2 + bilaterally, with good upstrokes Respiratory: No accessory muscle use; chest expansion is symmetric, other (bibasilar coarse crackles) Cardiovascular: regular rate-rhythm, S1 and S2, systolic murmur (3/6 MSM at card base)) Gastrointestinal: No tender; soft; No guarding, No rebound; audible bowel sounds Extremities: No clubbing, No cyanosis, No significant edema Neurologic/Psychiatric: No oriented x 3; other (moves all limbs equally) Skin: No rash, No ulcerations Data Review Labs Laboratory Tests 10/08/22 07:05: White Blood Count 13.8H, Red Blood Count 3.69L, Hemoglobin 9.3L, Hematocrit 30L, Mean Corpuscular Volume 82, Mean Corpuscular Hemoglobin 25, Mean Corpuscular Hemoglobin Concent 31L, Red Cell Distribution Width 17.8H, Platelet Count 333, Mean Platelet Volume 10.6, Immature Granulocyte % (Auto) 0, Neutrophils (%) (Auto) 85H, Lymphocytes (%) (Auto) 5L, Monocytes (%) (Auto) 5, Eosinophils (%) (Auto) 4, Basophils (%) (Auto) 1, Neutrophils # (Auto) 11.6H, Lymphocytes # (Auto) 0.7L, Monocytes # (Auto) 0.6, Eosinophils # (Auto) 0.6H, Basophils # (Auto) 0.1, Immature Granulocyte # (Auto) 0.1, Neutrophils % (Manual) 87, Lymphocytes % (Manual) 6, Monocytes % (Manual) 2, Eosinophils % (Manual) 5, Polychromasia SLIGHT, Hypochromasia SLIGHT, Anisocytosis SLIGHT, Elliptocytes MODERATE, Sodium Level 143, Potassium Level 3.7, Chloride Level 108H, Carbon Dioxide Level 21, Anion Gap 14, Blood Urea Nitrogen 15, Creatinine 0.77, Estimat Glomerular Filtration Rate 78, BUN/Creatinine Ratio 19, Glucose Level 135H, Calcium Level 9.3, Corrected Calcium 9.5, Total Bilirubin 0.8, Aspartate Amino Transf (AST/SGOT) 14, Alanine Aminotransferase (ALT/SGPT) 6, Alkaline Phosphatase 100, Troponin I 0.041H, Total Protein 7.0, Albumin 3.8 10/08/22 09:10: Troponin I 0.081H 10/08/22 10:51: Blood Gas Puncture Site L RAD, Blood Gas Patient Temperature 36.5, Arterial Blood pH 7.42, Arterial Blood Partial Pressure CO2 43, Arterial Blood Partial Pressure O2 65L, Arterial Blood HCO3 27, Arterial Blood Total CO2 28.8, Arterial Blood Oxygen Saturation 95, Arterial Blood Base Excess 3.1H, Goran Test YES-POS, Blood Gas Ventilator Setting NO, Blood Gas Inspired Oxygen 2L Laboratory Tests 10/08/22 07:05 A/P-Cardiology Assessment/Admission Diagnosis Mild troponin elevation due to type 2 [place] due to hypoxia - no evidence of ACS Transient hypoxia - due to oxygen nasal cannula falling off at night before admission, and due to pneumonia Pneumonia Permanent A Fib - has been on OAC for stroke prophylaxis Aortic stenosis - Echo of 03/28/22 (Dr Escalera): LVEF 60-65%, severe , mild AI, mild MAC, mild MR, mild ot mod TR, severe enlargement of both atria, PASP 76 mmHg H/o hypertension Ch resp failure due to COPD - on supple oxygen Cardiac pacemaker in situ - details unknow H/o CVA Dementia Discussion and Recomendations * Treat pneumonia * Continue supple oxygen and keep SaO2 greater than 90 * Continue anticoag for stroke prophylaxis * Monitor labs * Further recs based on her hosp course KIA STILL MD FACP FACC CCDS Oct 08, 2022 15:54
[2022-10-08 19:45] VITALS: BP 169/74
[2022-10-08] MEDS: CEFEPIME INJECTION 2,000 MG in NS (IVPB) 50 ML IV SCH (20:02)
[2022-10-08] MEDS: DOCUSATE SODIUM 100 MG (COLACE) CAP PO SCH (20:03)
[2022-10-08] MEDS: ALPRAZolam 0.5 MG (XANAX) TAB PO PRN (20:03)
[2022-10-08] MEDS: SENNOSIDES 8.6 MG (SENOKOT) TAB PO SCH (20:20)
[2022-10-08] MEDS ORDERED: FAMOTIDINE 20 MG (PEPCID) TABLET PO SCH (21:00)
[2022-10-08 23:17] VITALS: BP 161/76
[2022-10-09] VITALS (7 sets, daily range): BP systolic 126–191; BP diastolic 68–85
[2022-10-09] MEDS: ENOXAPARIN 80 MG/0.8 ML (LOVENOX) SYR SC SCH ×2 (00:28→12:58)
[2022-10-09] MEDS: NS IV 1000 ML 1,000 ML IV SCH ×2 (00:37→16:55)
[2022-10-09] MEDS: RT-ALBUTEROL SULF 2.5 MG/3 ML PRE-MIX VIAL INH SCH ×4 (03:07→20:58)
[2022-10-09 05:57] LABS: MEAN CORPUSCULAR VOLUME 82 fL (80-99)
[2022-10-09 05:59] LABS: BASOPHILS # (AUTO) 0.1 10^3/uL (0.0-0.1); BASOPHILS % (AUTO) 1 % (0-10); EOSINOPHILS # (AUTO) 0.4 10^3/uL (0.0-0.3); EOSINOPHILS % (AUTO) 6 % (0-10); HEMATOCRIT 27 % (35-52); HEMOGLOBIN 8.2 g/dL (11.5-16.0); LYMPHOCYTES # (AUTO) 1.3 10^3/uL (1.0-4.0); LYMPHOCYTES % (AUTO) 18 % (12-44); MEAN CORPUSCULAR HEMOGLOBIN 25 pg (25-34); MEAN CORPUSCULAR HGB CONC 30 g/dL (32-36); MEAN PLATELET VOLUME 11.3 fL (9.0-12.2); MONOCYTES # (AUTO) 0.5 10^3/uL (0.0-1.0); MONOCYTES % (AUTO) 8 % (0-12); NEUTROPHILS # (AUTO) 4.9 10^3/uL (1.8-7.8); NEUTROPHILS % (AUTO) 68 % (42-75); PLATELET COUNT 293 10^3/uL (130-400); WHITE BLOOD COUNT 7.2 10^3/uL (4.3-11.0)
[2022-10-09] MEDS: ALPRAZolam 0.5 MG (XANAX) TAB PO PRN ×2 (06:00→20:34)
[2022-10-09 06:42] LABS: ALBUMIN 3.7 GM/DL (3.2-4.5); CREATININE SERUM 0.74 MG/DL (0.60-1.30); POTASSIUM 3.2 MMOL/L (3.6-5.0); TOTAL PROTEIN 6.6 GM/DL (6.4-8.2)
--- NOTE | 2022-10-09 09:39 | Physical Therapy Evaluation ---
PT Evaluation-General Medical Diagnosis Admission Date Oct 08, 2022 at 10:04 Medical Diagnosis: elevated troponin/hypoxia Onset Date: Oct 08, 2022 Therapy Diagnosis Therapy Diagnosis: generalized weakness/debility Height/Weight Height (Feet): 5 Height (Inches): 4.00 Weight (Pounds): 182 Weight (Ounces): 0.6 Precautions Precautions/Isolations: Fall Prevention, Standard Precautions Referral Physician: Compa Reason for Referral: Evaluation/Treatment Medical History Pertinent Medical History: Atrial Fib, Arthritis, COPD, CVA, Dementia, GERD, HTN, Renal Insufficiency Current History EMS from [place] secondary to hypoxia Reviewed History: Yes Social History Home: [facility] Prior Prior Level of Function SCALE: Activities may be completed with or without assistive devices. 7-Jsmvlbhkxn-txpmfuo completes the activity by him/herself with no assistance from a helper. 5-Set-up or Clean-up Assistance-helper sets up or cleans up; patient completes activity. [place] assists only prior to or following the activity. 4-Supervision or Touching Assistance-helper provides verbal cues and/or touching/steadying and/or contact guard assistance as patient completes activity. Assistance may be provided throughout the activity or intermittently. 3-Partial/Moderate Assistance-helper does LESS THAN HALF the effort. [place] lifts, holds or supports trunk or limbs, but provides less than half the effort. 2-Substantial/Maximal Assistance-helper does MORE THAN HALF the effort. [place] lifts or holds trunk or limbs and provides more than half the effort. 3-Wigkjvjxf-uetlbl does ALL the effort. Patient does none of the effort to complete the activity. Or, the assistance of 2 or more helpers is required for the patient to complete the activity. If activity was not attempted, code reason: 7-Patient Refused. 9-Not Applicable-not attempted and the patient did not perform the activity before the current illness, exacerbation or injury. 10-Not Attempted due to Environmental Limitations-(lack of equipment, weather restraints, etc.). 88-Not Attempted due to Medical Conditions or Safety Concerns. Bed Mobility: 2 Transfers (B,C,W/C): 2 Gait: 2 (short distances) Stairs: 9 Wheelchair Mobility: 2 Indoor Mobility (Ambulation): Needed Some Help Stairs: Not Applicalbe Prior Devices Use: Manual wheelchair PT Evaluation-Current Subjective Patient is very confused. Objective Patient Orientation: Confused Attachments: Oxygen, IV ROM/Strength ROM Lower Extremities bilateral LE WFL Strength Lower Extremities 3-/5 grossly bilateral LE Integumentary/Posture Bowel Incontinence: Yes Bladder Incontinence: Yes Posture trunk flexed posture Neuromuscular (Tone, Coordination, Reflexes) diminished coordination due to weakness Sensory Vision: Wears Glasses Transfers Lying to Sitting/Side of Bed(Q: 2 Sit to Stand (QC): 2 Chair/Wia-pi-Ixozq Xfer(QC): 2 Gait Mode of Locomotion: Both Anticipated Mode of Locomotion: Both Distance: 5' Gait Assistive Device: FWW Comments/Gait Description max assist with all Balance Sitting Static: Fair Sitting Dynamic: Fair Standing Static: Poor Standing Dynamic: Poor Assessment/Needs Patient will benefit from skilled PT to address functional strength and mobility to improve current LOF. Patient is very confused and has difficulty with following simple direction. Rehab Potential: Guarded PT [facility] Goals [facility] Goals PT [facility] Goals Time Frame: Oct 21, 2022 Roll Left & Right (QC): 3 Sit to Lying (QC): 3 Lying-Sitting on Side/Bed(QC): 3 Sit to Stand (QC): 3 Chair/Tqa-mn-Fhgsc Xfer(QC): 3 Toilet Transfer (QC): 3 Walk 10 feet (QC): 3 PT Plan Problem List Problem List: Activity Tolerance, Functional Strength, Safety, Balance, Gait, Transfer, Bed Mobility Treatment/Plan Treatment Plan: Continue Plan of Care Treatment Plan: Bed Mobility, Education, Functional Activity Katherine, Functional Strength, Gait, Safety, Therapeutic Exercise, Transfers Treatment Duration: Oct 21, 2022 Frequency: 6 times per week Estimated Hrs Per Day: .25 hour per day Time Time In: 735 Time Out: 748 DATE: Oct 09, 2022 Total Billed Treatment Time: 13 [facility] CHRISTI BO[facility] PT Oct 09, 2022 09:39
[2022-10-09] MEDS: CEFEPIME INJECTION 2,000 MG in NS (IVPB) 50 ML IV SCH ×2 (10:05→20:34)
[2022-10-09] MEDS: DOCUSATE SODIUM 100 MG (COLACE) CAP PO SCH ×2 (10:05→20:35)
[2022-10-09] MEDS: ASPIRIN 81 MG CHEW (CHILDREN'S ASA) PO SCH (10:05)
[2022-10-09] MEDS: SENNOSIDES 8.6 MG (SENOKOT) TAB PO SCH ×2 (10:05→20:35)
--- NOTE | 2022-10-09 10:53 | Progress Note - Cardiology ---
Cardiology SOAP Progress Note Subjective: Lying in bed Oriented to self only Denies any c/o pain or SOB Objective: I&O/Vital Signs 10/09/22 10/10/22 10/10/22 10/10/22 23:06 01:00 03:00 04:50 Temp 36.0 36.7 Pulse 69 60 63 Resp 16 20 B/P (MAP) 159/76 (103) 161/79 (106) Pulse Ox 96 95 92 O2 Delivery Nasal Cannula Nasal Cannula Nasal Cannula O2 Flow Rate 2.00 2.00 2.00 10/10/22 10/10/22 10/10/22 10/10/22 07:20 07:27 08:10 09:32 Temp 36.7 Pulse 66 79 Resp 20 B/P (MAP) 166/90 (115) Pulse Ox 91 91 O2 Delivery Nasal Cannula Nasal Cannula Nasal Cannula O2 Flow Rate 2.00 2.00 2.00 2.00 10/10/22 00:00 Intake Total 960 ml Output Total 400 ml Balance 560 ml Weight (Pounds): 182 Weight (Ounces): 0.6 Weight (Calculated Kilograms): 77.683468 Constitutional: No AAO x 3; well-developed, well-nourished, other (confused) Respiratory: No accessory muscle use; chest expansion is symmetric, other (bibasilar coarse crackles) Cardiovascular: regular rate-rhythm, S1 and S2, systolic murmur (3/6 MSM at card base)) Gastrointestional: No tender; soft; No guarding, No rebound; audible bowel sounds Extremities: No clubbing, No cyanosis, No significant edema Neurologic/Psychiatric: No oriented x 3; other (moves all limbs equally) Skin: No rash, No ulcerations Results/Procedures: Labs Laboratory Tests 10/10/22 07:33: White Blood Count 8.0, Red Blood Count 3.68L, Hemoglobin 9.1L, Hematocrit 31L, Mean Corpuscular Volume 83, Mean Corpuscular Hemoglobin 25, Mean Corpuscular Hemoglobin Concent 30L, Red Cell Distribution Width 17.9H, Platelet Count 326, Mean Platelet Volume 10.7, Immature Granulocyte % (Auto) 0, Neutrophils (%) (Auto) 64, Lymphocytes (%) (Auto) 19, Monocytes (%) (Auto) 8, Eosinophils (%) (Auto) 8, Basophils (%) (Auto) 1, Neutrophils # (Auto) 5.1, Lymphocytes # (Auto) 1.5, Monocytes # (Auto) 0.7, Eosinophils # (Auto) 0.6H, Basophils # (Auto) 0.1, Immature Granulocyte # (Auto) 0.0, Sodium Level 142, Potassium Level 3.5L, Chloride Level 110H, Carbon Dioxide Level 23, Anion Gap 9, Blood Urea Nitrogen 8, Creatinine 0.65, Estimat Glomerular Filtration Rate 89, BUN/Creatinine Ratio 12, Glucose Level 95, Calcium Level 9.3, Corrected Calcium 9.6, Magnesium Level 2.0, Total Bilirubin 0.8, Aspartate Amino Transf (AST/SGOT) 14, Alanine Aminot ransferase (ALT/SGPT) 10, Alkaline Phosphatase 92, Total Protein 6.6, Albumin 3.6 Microbiology 10/08/22 Blood Culture - Preliminary, Resulted No growth A/P: Assessment: Mild troponin elevation due to type 2 [place] due to hypoxia - no evidence of ACS Transient hypoxia - due to oxygen nasal cannula falling off at night before admission, and due to pneumonia Pneumonia Permanent A Fib - has been on OAC for stroke prophylaxis with Eliquis Aortic stenosis - Echo of 03/28/22 (Dr Escalera): LVEF 60-65%, severe , mild AI, mild MAC, mild MR, mild to mod TR, severe enlargement of both atria, PASP 76 mmHg Hypertension Anemia - undetermined etiology - management per medical services Ch resp failure due to COPD - on supple oxygen Cardiac pacemaker in situ - details unknow H/o CVA Dementia Plan: * Managment of pneumonia per medical services * Continue supple oxygen and keep SaO2 greater than 90 * Continue anticoag for stroke prophylaxis * Monitor labs - replace potassium * BP note well controlled - restart home medications SALLY KENNEDY Oct 09, 2022 10:53
[2022-10-09] MEDS ORDERED: KCL 20 MEQ TAB (K-DUR) PO NR ×2 (11:00→15:00)
--- NOTE | 2022-10-09 11:37 | Occupational Therapy Eval ---
OT Evaluation-General/PLF Medical Diagnosis Admission Date Oct 08, 2022 at 10:04 Medical Diagnosis: elevated troponin/hypoxia Onset Date: Oct 08, 2022 Therapy Diagnosis Therapy Diagnosis: decreased ADL status Height/Weight Height (Feet): 5 Height (Inches): 4.00 Weight (Pounds): 182 Weight (Ounces): 0.6 Precautions Precautions/Isolations: Fall Prevention, Standard Precautions Referral Physician: Compa Referral Reason: Evaluation/Treatment Medical History Pertinent Medical History: Atrial Fib, Arthritis, COPD, CVA, Dementia, GERD, HTN, Renal Insufficiency Social History Home: Residential ADL-Prior Level of Function SCALE: Activities may be completed with or without assistive devices. 6-Glvdyjlpzk-ceihnjc completes the activity by him/herself with no assistance from a helper. 5-Set-up or Clean-up Assistance-helper sets up or cleans up; patient completes a ctivity. [place] assists only prior to or following the activity. 4-Supervision or Touching Assistance-helper provides verbal cues and/or touching/steadying and/or contact guard assistance as patient completes activity. Assistance may be provided throughout the activity or intermittently. 3-Partial/Moderate Assistance-helper does LESS THAN HALF the effort. [place] lifts, holds or supports trunk or limbs, but provides less than half the effort. 2-Substantial/Maximal Assistance-helper does MORE THAN HALF the effort. [place] lifts or holds trunk or limbs and provides more than half the effort. 8-Klurjcqif-fqjgwy does ALL the effort. Patient does none of the effort to complete the activity. Or, the assistance of 2 or more helpers is required for the patient to complete the activity. If activity was not attempted, code reason: 7-Patient Refused. 9-Not Applicable-not attempted and the patient did not perform the activity before the current illness, exacerbation or injury. 10-Not Attempted due to Environmental Limitations-(lack of equipment, weather restraints, etc.). 88-Not Attempted due to Medical Conditions or Safety Concerns. ADL PLOF Comments Pt unable to provide information about PLOF due to hx of dementia. Per chart review, pt has required total assistance with ADLS for some time. Only gets around in a w/c. Self Care: Needed Some Help Functional Cognition: Needed Some Help OT Current Status Subjective Pt in bed, bed alarm activated. Pt very confused, unsure where she is or why she is laying down. Mental Status/Objective Patient Orientation: Person, Confused Attachments: Oxygen Current Upper Extremity ROM WFL Upper Extremity Strength unable to assess due to pt's confusion ADL-Treatment Oral Hygiene (QC): 1 (Pt did not initiate any movements, OT dependently com pleted oral care.) Lower Body Dressing (QC): 1 On/Off Footwear (QC): 1 Toileting Hygiene (QC): 1 Other Treatments Pt in bed, unable to provide information about PLOF. Pt agreeable to completing oral care. OT handed pt oral sponge, pt moved sponge in air but did not bring to her mouth. OT dependently completed oral care for pt. OT handed pt wash cloth to wash her face, pt did not initiate any movement. OT brought pt's hand to her face, then pt able to wash face, min A. Throughout tx, pt able to roll from her back to her L side independently. Post tx, pt in bed, call light in reach and all needs met, bed alarm activated. Education OT Patient Education: Correct positioning, Energy conservation, Modified ADL techniques, Progress toward Goal/Update tx plan, Purpose of tx/functional activities, Rehab process Teaching Recipient: Patient Teaching Methods: Discussion Response to Teaching: Verbalize Understanding OT Halfway Goals Halfway Goals 1=Demonstrate adherence to instructed precautions during ADL tasks. 2=Patient will verbalize/demonstrate understanding of assistive devices/modifications for ADL. 3=Patient will improve strength/tolerance for activity to enable patient to perform ADL's. OT Education/Plan Problem List/Assessment Assessment: No Skilled OT Needs ID'd No skilled OT services indicated at this time, pt is currently at her PLOF, requiring total assistance with all ADLS. D/C from OT at this time. Discharge Recommendations Plan/Recommendations: Discharge/Goals Met Treatment Plan/Plan of Care Patient would benefit from OT for education, treatment and training to promote independence in ADL's, mobility, safety and/or upper extremity function for ADL's. Plan of Care: ADL Retraining Treatment Duration: Oct 09, 2022 Frequency: 1 time per week (eval only) Rehab Potential: Poor Time Start Time: 11:05 Stop Time: 11:15 DATE: Oct 09, 2022 Total Time Billed (hr/min): 10 Billed Treatment Time 1, YANELI WATT OT Oct 09, 2022 11:37
--- NOTE | 2022-10-09 12:26 | Progress Note ---
Subjective Subjective/Events-last exam Patient pleasantly demented. Denies any pain. Tolerating PO diet. Review of Systems Pulmonary: No Dyspnea, No Cough Cardiovascular: No: Chest Pain Neurological: Weakness Objective Exam Last Set of Vital Signs Vital Signs Date Time Temp Pulse Resp B/P (MAP) Pulse Ox O2 Delivery O2 Flow Rate FiO2 10/09/22 11:34 36.2 65 18 158/78 (104) 96 Nasal Cannula 2.00 10/08/22 12:19 28 Capillary Refill : Less Than 3 Seconds I&O Intake and Output 10/09/22 00:00 Intake Total 590 ml Output Total 2 ml Balance 588 ml Intake Oral 590 ml Output Estimated Blood Loss 2 ml # Voids 1 # Bowel Movements 3 Daily Weight Change Unsure General: Alert, Other (Alert to person only) Lungs: Clear to Auscultation, Normal Air Movement Heart: Other (Loud systolic murmur) Abdomen: Soft, No Tenderness, No Masses Extremities: No Edema, No Tenderness/Swelling Neuro: Normal Speech Results/Procedures Lab Laboratory Tests 10/09/22 05:19: White Blood Count 7.2, Red Blood Count 3.30L, Hemoglobin 8.2L, Hematocrit 27L, Mean Corpuscular Volume 82, Mean Corpuscular Hemoglobin 25, Mean Corpuscular Hemoglobin Concent 30L, Red Cell Distribution Width 17.7H, Platelet Count 293, Mean Platelet Volume 11.3, Immature Granulocyte % (Auto) 0, Neutrophils (%) (Auto) 68, Lymphocytes (%) (Auto) 18, Monocytes (%) (Auto) 8, Eosinophils (%) (Auto) 6, Basophils (%) (Auto) 1, Neutrophils # (Auto) 4.9, Lymphocytes # (Auto) 1.3, Monocytes # (Auto) 0.5, Eosinophils # (Auto) 0.4H, Basophils # (Auto) 0.1, Immature Granulocyte # (Auto) 0.0, Percent Immature Platelet Fraction 3.9, Sodium Level 141, Potassium Level 3.2L, Chloride Level 109H, Carbon Dioxide Level 21, Anion Gap 11, Blood Urea Nitrogen 13, Creatinine 0.74, Estimat Glomerular Filtration Rate 82, BUN/Creatinine Ratio 18, Glucose Level 93, Calcium Level 9.0, Corrected Calcium 9.2, Total Bilirubin 1.0, Aspartate Amino Transf (AST/SGOT) 14, Alanine Aminotransferase (ALT/SGPT) 10, Alkaline Phosphatase 95, Total Protein 6.6, Albumin 3.7, Triglycerides Level 80, Cholesterol Level 127, LDL Cholesterol Direct 70, VLDL Cholesterol 16, HDL Chol esterol 41 Assessment/Plan Assessment/Plan Admission Status: Observation (1) NSTEMI (non-ST elevated myocardial infarction) Status: Acute Assessment & Plan: 10/09: Type II, Cardiology consulted, Denies any chest pain today (2) Hypoxia Status: Acute Assessment & Plan: 10/09: Continue antibiotics to cover Facility PNA, hypoxia resolved with oxygen NC (3) Hypokalemia Status: Acute Assessment & Plan: 10/09: Replaced and repeat CMP in AM (4) Aortic stenosis (5) Permanent atrial fibrillation Status: Chronic Assessment & Plan: 10/09: Rate controlled, maintained on OAC (6) Advanced dementia Status: Acute TRACY NAYAK MD Oct 09, 2022 12:26
--- NOTE | 2022-10-09 18:42 | Progress Note - Cardiology ---
Cardiology SOAP Progress Note Subjective: Does not report cp or palp or syncope or shortness of breath Does not report n/v/d Objective: I&O/Vital Signs 10/09/22 10/09/22 10/09/22 10/09/22 07:11 08:15 09:21 09:25 Temp 36.0 Pulse 68 Resp 18 B/P (MAP) 160/74 (102) Pulse Ox 95 84 93 O2 Delivery Nasal Cannula Nasal Cannula Room Air Nasal Cannula O2 Flow Rate 2.00 2.00 2.00 10/09/22 10/09/22 10/09/22 10/09/22 11:34 13:30 14:20 15:46 Temp 36.2 36.5 Pulse 65 78 91 Resp 18 26 B/P (MAP) 158/78 (104) 191/85 (120) Pulse Ox 96 92 97 O2 Delivery Nasal Cannula Nasal Cannula Room Air O2 Flow Rate 2.00 2.00 10/09/22 18:05 B/P (MAP) 163/80 (107) 10/09/22 00:00 Intake Total 590 ml Output Total 2 ml Balance 588 ml Weight (Pounds): 182 Weight (Ounces): 0.6 Weight (Calculated Kilograms): 77.896642 Constitutional: No AAO x 3; well-developed, well-nourished, other (confused) Respiratory: No accessory muscle use; chest expansion is symmetric, other (bibasilar coarse crackles) Cardiovascular: regular rate-rhythm, S1 and S2, systolic murmur (3/6 MSM at card base)) Gastrointestional: No tender; soft; No guarding, No rebound; audible bowel sounds Extremities: No clubbing, No cyanosis, No significant edema Neurologic/Psychiatric: No oriented x 3; other (moves all limbs equally) Skin: No rash, No ulcerations Results/Procedures: Labs Laboratory Tests 10/09/22 05:19: White Blood Count 7.2, Red Blood Count 3.30L, Hemoglobin 8.2L, Hematocrit 27L, Mean Corpuscular Volume 82, Mean Corpuscular Hemoglobin 25, Mean Corpuscular Hemoglobin Concent 30L, Red Cell Distribution Width 17.7H, Platelet Count 293, Mean Platelet Volume 11.3, Immature Granulocyte % (Auto) 0, Neutrophils (%) (Auto) 68, Lymphocytes (%) (Auto) 18, Monocytes (%) (Auto) 8, Eosinophils (%) (Auto) 6, Basophils (%) (Auto) 1, Neutrophils # (Auto) 4.9, Lymphocytes # (Auto) 1.3, Monocytes # (Auto) 0.5, Eosinophils # (Auto) 0.4H, Basophils # (Auto) 0.1, Immature Granulocyte # (Auto) 0.0, Percent Immature Platelet Fraction 3.9, Sodium Level 141, Potassium Level 3.2L, Chloride Level 109H, Carbon Dioxide Level 21, Anion Gap 11, Blood Urea Nitrogen 13, Creatinine 0.74, Estimat Glomerular Filtration Rate 82, BUN/Creatinine Ratio 18, Glucose Level 93, Calcium Level 9.0, Corrected Calcium 9.2, Total Bilirubin 1.0, Aspartate Amino Transf (AST/SGOT) 14, Alanine Aminotransferase (ALT/SGPT) 10, Alkaline Phosp hatase 95, Total Protein 6.6, Albumin 3.7, Triglycerides Level 80, Cholesterol Level 127, LDL Cholesterol Direct 70, VLDL Cholesterol 16, HDL Cholesterol 41 Microbiology 10/08/22 Blood Culture - Preliminary, Resulted No growth A/P: Assessment: Mild troponin elevation due to type 2 OR due to hypoxia - no evidence of ACS Transient hypoxia - due to oxygen nasal cannula falling off at night before admission, and due to pneumonia Pneumonia Permanent A Fib - has been on OAC for stroke prophylaxis with Eliquis Aortic stenosis - Echo of 03/28/22 (Dr Escalera): LVEF 60-65%, severe , mild AI, mild MAC, mild MR, mild to mod TR, severe enlargement of both atria, PASP 76 mmHg - Echo on 10/09/22: LVEF 65-70%. Biatrial enlargement, mod to severe. Mild to mod MAC. Mild MR. Mod . Mild AI. PASP 70-75 mmHg Hypertension Anemia - undetermined etiology - management per medical services Ch resp failure due to COPD - on supple oxygen Cardiac pacemaker in situ - details unknow H/o CVA Dementia Plan: * Managment of pneumonia per medical services * Continue supple oxygen and keep SaO2 greater than 90 * Continue anticoag for stroke prophylaxis * Monitor labs - replace potassium * BP not well controlled - restart home medications KIA STILL [facility] CCDS Oct 09, 2022 18:42
[2022-10-09] MEDS: FAMOTIDINE 20 MG (PEPCID) TABLET PO SCH (20:34)
[2022-10-09] MEDS: MELATONIN 3 MG TABLET PO PRN (20:34)
[2022-10-10] VITALS (9 sets, daily range): BP systolic 145–205; BP diastolic 60–100
[2022-10-10] MEDS: ENOXAPARIN 80 MG/0.8 ML (LOVENOX) SYR SC SCH ×2 (00:10→13:25)
[2022-10-10] MEDS: ALPRAZolam 0.5 MG (XANAX) TAB PO PRN ×2 (00:12→16:47)
[2022-10-10] MEDS: ACETAMINOPHEN 325 MG TABLET PO PRN ×2 (00:12→19:40)
[2022-10-10] MEDS: RT-ALBUTEROL SULF 2.5 MG/3 ML PRE-MIX VIAL INH SCH ×4 (03:00→19:45)
[2022-10-10] MEDS: NS IV 1000 ML 1,000 ML IV SCH ×2 (06:09→08:22)
[2022-10-10 07:46] LABS: BASOPHILS # (AUTO) 0.1 10^3/uL (0.0-0.1); BASOPHILS % (AUTO) 1 % (0-10); EOSINOPHILS # (AUTO) 0.6 10^3/uL (0.0-0.3); EOSINOPHILS % (AUTO) 8 % (0-10); HEMATOCRIT 31 % (35-52); HEMOGLOBIN 9.1 g/dL (11.5-16.0); LYMPHOCYTES # (AUTO) 1.5 10^3/uL (1.0-4.0); LYMPHOCYTES % (AUTO) 19 % (12-44); MEAN CORPUSCULAR HEMOGLOBIN 25 pg (25-34); MEAN CORPUSCULAR HGB CONC 30 g/dL (32-36); MEAN CORPUSCULAR VOLUME 83 fL (80-99); MEAN PLATELET VOLUME 10.7 fL (9.0-12.2); MONOCYTES # (AUTO) 0.7 10^3/uL (0.0-1.0); MONOCYTES % (AUTO) 8 % (0-12); NEUTROPHILS # (AUTO) 5.1 10^3/uL (1.8-7.8); NEUTROPHILS % (AUTO) 64 % (42-75); PLATELET COUNT 326 10^3/uL (130-400)
[2022-10-10 07:50] LABS: ALBUMIN 3.6 GM/DL (3.2-4.5); POTASSIUM 3.5 MMOL/L (3.6-5.0)
[2022-10-10 07:51] LABS: CALCIUM 9.3 MG/DL (8.5-10.1)
[2022-10-10 07:52] LABS: TOTAL PROTEIN 6.6 GM/DL (6.4-8.2)
[2022-10-10 07:54] LABS: BILIRUBIN,TOTAL 0.8 MG/DL (0.1-1.0)
[2022-10-10 07:56] LABS: CREATININE SERUM 0.65 MG/DL (0.60-1.30)
[2022-10-10] MEDS: ASPIRIN 81 MG CHEW (CHILDREN'S ASA) PO SCH (08:22)
[2022-10-10] MEDS: SENNOSIDES 8.6 MG (SENOKOT) TAB PO SCH ×2 (08:22→19:40)
[2022-10-10] MEDS: DOCUSATE SODIUM 100 MG (COLACE) CAP PO SCH ×2 (08:22→19:40)
[2022-10-10] MEDS: CEFEPIME INJECTION 2,000 MG in NS (IVPB) 50 ML IV SCH ×2 (08:23→21:05)
[2022-10-10] MEDS ORDERED: amLODIPine 2.5MG (NORVASC) TAB PO SCH (09:00)
--- NOTE | 2022-10-10 10:58 | Progress Note - Cardiology ---
Cardiology SOAP Progress Note Subjective: In bed resting No c/o Objective: I&O/Vital Signs 10/10/22 10/10/22 10/11/22 10/11/22 21:14 23:10 01:00 03:03 Temp 36.5 Pulse 66 71 60 Resp 24 B/P (MAP) 145/83 (103) 160/75 (103) Pulse Ox 97 96 O2 Delivery Nasal Cannula Nasal Cannula O2 Flow Rate 2.00 2.00 10/11/22 10/11/22 10/11/22 03:16 07:08 07:38 Temp 36.7 36.8 Pulse 75 69 61 Resp 24 22 B/P (MAP) 150/77 (101) 126/55 (78) Pulse Ox 95 96 O2 Delivery Nasal Cannula Room Air O2 Flow Rate 2.00 2.00 10/11/22 00:00 Intake Total 770 ml Output Total 700 ml Balance 70 ml Weight (Pounds): 182 Weight (Ounces): 0.6 Weight (Calculated Kilograms): 77.597437 Constitutional: No AAO x 3; well-developed, well-nourished, other (confused) Respiratory: No accessory muscle use; chest expansion is symmetric, other (bibasilar coarse crackles) Cardiovascular: regular rate-rhythm, S1 and S2, systolic murmur (3/6 MSM at card base)) Gastrointestional: No tender; soft; No guarding, No rebound; audible bowel sounds Extremities: No clubbing, No cyanosis, No significant edema Neurologic/Psychiatric: No oriented x 3; other (moves all limbs equally) Skin: No rash, No ulcerations Results/Procedures: Labs Laboratory Tests 10/10/22 21:08: Urine Color YELLOW, Urine Clarity CLEAR, Urine pH 6.0, Urine Specific [place] >=1.030, Urine Protein 2+H, Urine Glucose (UA) NEGATIVE, Urine Ketones TRACEH, Urine Nitrite NEGATIVE, Urine Bilirubin NEGATIVE, Urine Urobilinogen 0.2, Urine Leukocyte Esterase 2+H, Urine RBC (Auto) 2+H, Urine RBC 0-2, Urine WBC >100H, Urine Squamous Epithelial Cells 5-10, Urine Crystals NONE, Urine Bacteria FEWH, Urine Casts NONE, Urine Mucus SMALLH, Urine Culture Indicated YES 10/11/22 05:34: White Blood Count 8.7, Red Blood Count 3.52L, Hemoglobin 8.9L, Hematocrit 29L, Mean Corpuscular Volume 82, Mean Corpuscular Hemoglobin 25, Mean Corpuscular Hemoglobin Concent 31L, Red Cell Distribution Width 17.5H, Platelet Count 323, Mean Platelet Volume 10.6, Immature Granulocyte % (Auto) 1, Neutrophils (%) (Auto) 67, Lymphocytes (%) (Auto) 16, Monocytes (%) (Auto) 7, Eosinophils (%) (Auto) 9, Basophils (%) (Auto) 1, Neutrophils # (Auto) 5.8, Lymphocytes # (Auto) 1.4, Monocytes # (Auto) 0.6, Eosinophils # (Auto) 0.8H, Basophils # (Auto) 0.1, Immature Granulocyte # (Auto) 0.0, Sodium Level 141, Potassium Level 3.2L, Chloride Level 108H, Carbon Dioxide Level 23, Anion Gap 10, Blood Urea Nitrogen 9, Creatinine 0.62, Estimat Glomerular Filtration Rate 90, BUN/Creatinine Ratio 15, Glucose Level 89, Calcium Level 9.2, Corrected Calcium 9.5, Total Bilirubin 0.9, Aspartate Amino Transf (AST/SGOT) 12, Alanine Aminotransferase (ALT/SGPT) 9, Alkaline Phosphatase 88, Total Protein 6.5, Albumin 3.6 Microbiology 10/08/22 Blood Culture - Preliminary, Resulted No growth A/P: Assessment: Mild troponin elevation due to type 2 MD due to hypoxia - no evidence of ACS Transient hypoxia - due to oxygen nasal cannula falling off at night before admission, and due to pneumonia Pneumonia Permanent A Fib - has been on OAC for stroke prophylaxis with Eliquis Aortic stenosis - Echo of 03/28/22 (Dr Escalera): LVEF 60-65%, severe , mild AI, mild MAC, mild MR, mild to mod TR, severe enlargement of both atria, PASP 76 mmHg - Echo on 10/09/22: LVEF 65-70%. Biatrial enlargement, mod to severe. Mild to mod MAC. Mild MR. Mod . Mild AI. PASP 70-75 mmHg Hypertension - not well controlled Anemia - undetermined etiology - management per medical services Ch resp failure due to COPD - on supple oxygen Cardiac pacemaker in situ - details unknow H/o CVA Dementia Plan: * Managment of pneumonia per medical services * Continue supple oxygen and keep SaO2 greater than 90 * Continue anticoag for stroke prophylaxis * Monitor labs - replace potassium * BP not well controlled - increase antihypertensive regimen SALLY KENNEDYP Oct 10, 2022 10:58
[2022-10-10] MEDS ORDERED: amLODIPine 2.5MG (NORVASC) TAB PO NR (11:00)
--- NOTE | 2022-10-10 11:15 | Progress Note ---
KATH LIN 10/10/22 1115: Subjective Subjective/Events-last exam Patient says she was doing alright this morning. 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 Denied headache, shortness of breath, chest pain, abdominal pain, dysuria, constipation or diarrhea. When visited by physician, patient was sleeping. She would not respond to verbal or physical stimuli. Objective Exam Last Set of Vital Signs Vital Signs Date Time Temp Pulse Resp B/P (MAP) Pulse Ox O2 Delivery O2 Flow Rate FiO2 10/10/22 09:32 91 Nasal Cannula 2.00 10/10/22 07:27 36.7 79 20 166/90 (115) 10/08/22 12:19 28 Capillary Refill : Less Than 3 Seconds I&O Intake and Output 10/10/22 00:00 Intake Total 1360 ml Output Total 400 ml Balance 960 ml Intake Oral 1360 ml Output Urine Total 400 ml Estimated Blood Loss 0 ml # Voids 3 # Bowel Movements 3 General: Cooperative, No Acute Distress, Other (Alert but not oriented to person, place, time or event) HEENT: Atraumatic Heart: Regular Rate, Other (Systolic murmur) Abdomen: Normal Bowel Sounds, No Tenderness, No Masses Extremities: No Clubbing, No Cyanosis, No Edema Psych/Mental Status: Other (Sleeping and unresponsive to verbal or physical stimuli) Results/Procedures Lab Laboratory Tests 10/10/22 07:33: White Blood Count 8.0, Red Blood Count 3.68L, Hemoglobin 9.1L, Hematocrit 31L, Mean Corpuscular Volume 83, Mean Corpuscular Hemoglobin 25, Mean Corpuscular Hemoglobin Concent 30L, Red Cell Distribution Width 17.9H, Platelet Count 326, Mean Platelet Volume 10.7, Immature Granulocyte % (Auto) 0, Neutrophils (%) (Auto) 64, Lymphocytes (%) (Auto) 19, Monocytes (%) (Auto) 8, Eosinophils (%) (Auto) 8, Basophils (%) (Auto) 1, Neutrophils # (Auto) 5.1, Lymphocytes # (Auto) 1.5, Monocytes # (Auto) 0.7, Eosinophils # (Auto) 0.6H, Basophils # (Auto) 0.1, Immature Granulocyte # (Auto) 0.0, Sodium Level 142, Potassium Level 3.5L, Chloride Level 110H, Carbon Dioxide Level 23, Anion Gap 9, Blood Urea Nitrogen 8, Creatinine 0.65, Estimat Glomerular Filtration Rate 89, BUN/Creatinine Ratio 12, Glucose Level 95, Calcium Level 9.3, Corrected Calcium 9.6, Magnesium Level 2.0, Total Bilirubin 0.8, Aspartate Amino Transf (AST/SGOT) 14, Alanine Aminotransferase (ALT/SGPT) 10, Alkaline Phosphatase 92, Total Protein 6.6, Albumin 3.6 Microbiology 10/08/22 Blood Culture - Preliminary, Resulted No growth Radiology 10/08: CXR 1: There is interval progression of infiltrates involving the right lung and slight progression of left lung base atelectasis versus infiltrate. 2: There is small left pleural effusion. 3: There is cardiomegaly again noted. Assessment/Plan Assessment/Plan (1) NSTEMI (non-ST elevated myocardial infarction) Status: Acute Assessment & Plan: 10/09: Type II, Cardiology consulted, Denies any chest pain today (2) Hypokalemia Status: Acute Assessment & Plan: 10/09: Replaced and repeat CMP in AM 10/10: Potassium 3.5 today. Continue potassium chloride (3) Hypoxia Status: Resolved Assessment & Plan: 10/09: Continue antibiotics to cover Facility PNA, hypoxia resolved with oxygen NC 10/10: Continue Cefepime antibiotic to cover facility PNA. (4) Essential (primary) hypertension Status: Acute Assessment & Plan: 10/10: Started Amlodipine 2.5mg (5) Permanent atrial fibrillation Status: Chronic Assessment & Plan: 10/09: Rate controlled, maintained on OAC 10/10: Continue Lovenox injection. Continue Metoprolol succinate (6) Aortic stenosis (7) Advanced dementia Status: Acute EDILMA VALENCIA MD 10/10/22 1637: Supervisory-Addendum Brief Verification & Attestation Participated in pt care: history, physical Personally performed: exam, history Care discussed with: Medical Student Procedures: n/a Verification and Attestation of Medical Student E/M Service A medical student performed and documented this service in my presence. I reviewed and verified all information documented by the medical student and made modifications to such information, when appropriate. I personally performed the physical exam and medical decision making. Edilma Valencia, Oct 10, 2022,16:36 NSTEMI HTN - Blood pressure trending up, meds adjusted, IVFs stopped, good PO intake Debility Dementia - Patient will need placement at discharge KATH LIN Oct 10, 2022 11:15 EDILMA VALENCIA MD Oct 10, 2022 16:37
[2022-10-10] MEDS ORDERED: meTOproloL SUCCINATE 50 MG (TOPROL XL) TAB PO NR (15:45)
[2022-10-10] MEDS ORDERED: amLODIPine 10 MG (NORVASC) TAB PO NR (15:45)
--- NOTE | 2022-10-10 16:33 | Progress Note - Cardiology ---
Cardiology SOAP Progress Note Subjective: Unable to provide any meaningful history Objective: I&O/Vital Signs 10/10/22 10/10/22 10/10/22 10/10/22 04:50 07:20 07:27 08:10 Temp 36.7 36.7 Pulse 63 66 79 Resp 20 20 B/P (MAP) 161/79 (106) 166/90 (115) Pulse Ox 92 91 O2 Delivery Nasal Cannula Nasal Cannula Nasal Cannula O2 Flow Rate 2.00 2.00 2.00 2.00 10/10/22 10/10/22 10/10/22 10/10/22 09:32 11:10 12:59 15:26 Temp 37.4 Pulse 67 77 Resp 22 B/P (MAP) 187/72 (110) Pulse Ox 91 95 93 O2 Delivery Nasal Cannula Nasal Cannula Nasal Cannula O2 Flow Rate 2.00 2.00 2.00 10/10/22 15:27 Temp 37.1 Pulse 81 Resp 28 B/P (MAP) 205/100 (135) Pulse Ox 93 O2 Delivery Nasal Cannula O2 Flow Rate 2.00 10/10/22 00:00 Intake Total 960 ml Output Total 400 ml Balance 560 ml Weight (Pounds): 182 Weight (Ounces): 0.6 Weight (Calculated Kilograms): 77.723591 Constitutional: No AAO x 3; well-developed, well-nourished, other (confused) Respiratory: No accessory muscle use; chest expansion is symmetric, other (bib asilar coarse crackles) Cardiovascular: regular rate-rhythm, S1 and S2, systolic murmur (3/6 MSM at card base)) Gastrointestional: No tender; soft; No guarding, No rebound; audible bowel sounds Extremities: No clubbing, No cyanosis, No significant edema Neurologic/Psychiatric: No oriented x 3; other (moves all limbs equally) Skin: No rash, No ulcerations Results/Procedures: Labs Laboratory Tests 10/10/22 07:33: White Blood Count 8.0, Red Blood Count 3.68L, Hemoglobin 9.1L, Hematocrit 31L, Mean Corpuscular Volume 83, Mean Corpuscular Hemoglobin 25, Mean Corpuscular Hemoglobin Concent 30L, Red Cell Distribution Width 17.9H, Platelet Count 326, Mean Platelet Volume 10.7, Immature Granulocyte % (Auto) 0, Neutrophils (%) (Auto) 64, Lymphocytes (%) (Auto) 19, Monocytes (%) (Auto) 8, Eosinophils (%) (Auto) 8, Basophils (%) (Auto) 1, Neutrophils # (Auto) 5.1, Lymphocytes # (Auto) 1.5, Monocytes # (Auto) 0.7, Eosinophils # (Auto) 0.6H, Basophils # (Auto) 0.1, Immature Granulocyte # (Auto) 0.0, Sodium Level 142, Potassium Level 3.5L, Chloride Level 110H, Carbon Dioxide Level 23, Anion Gap 9, Blood Urea Nitrogen 8, Creatinine 0.65, Estimat Glomerular Filtration Rate 89, BUN/Creatinine Ratio 12, Glucose Level 95, Calcium Level 9.3, Corrected Calcium 9.6, Magnesium Level 2.0, Total Bilirubin 0.8, Aspartate Amino Transf (AST/SGOT) 14, Alanine Aminotransferase (ALT/SGPT) 10, Alkaline Phosphatase 92, Total Protein 6.6, Albumin 3.6 Microbiology 10/08/22 Blood Culture - Preliminary, Resulted No growth Laboratory Tests 10/09/22 05:19 10/10/22 07:33 A/P: Assessment: Severe, uncontrolled hypertension Mild troponin elevation due to type 2 HI due to hypoxia - no evidence of ACS Transient hypoxia - due to oxygen nasal cannula falling off at night before admission, and due to pneumonia Pneumonia Permanent A Fib - has been on OAC for stroke prophylaxis with Eliquis Aortic stenosis - Echo of 03/28/22 (Dr Escalera): LVEF 60-65%, severe , mild AI, mild MAC, mild MR, mild to mod TR, severe enlargement of both atria, PASP 76 mmHg - Echo on 10/09/22: LVEF 65-70%. Biatrial enlargement, mod to severe. Mild to mod MAC. Mild MR. Mod . Mild AI. PASP 70-75 mmHg Anemia - undetermined etiology - management per medical services Ch resp failure due to COPD - on supple oxygen Cardiac pacemaker in situ - details unknow H/o CVA Dementia Plan: * Treat hypertension: ordered amlodipine 10 daily and Toprol XL 50 daily, starting today * Management of pneumonia per medical services * Continue supple oxygen and keep SaO2 greater than 90 * Continue anticoag for stroke prophylaxis * Monitor labs - replace KIA Layne MD FACP FAC CCDS Oct 10, 2022 16:32
[2022-10-10] MEDS: FAMOTIDINE 20 MG (PEPCID) TABLET PO SCH (19:39)
[2022-10-10] MEDS: MELATONIN 3 MG TABLET PO PRN (19:39)
[2022-10-10] MEDS ORDERED: FUROSEMIDE 40 MG/4 ML INJ (LASIX) IVP ONE (20:15)
[2022-10-10] MEDS ORDERED: KCL 20 MEQ TAB (K-DUR) PO ONE ×2 (20:15→20:34)
[2022-10-10] MEDS ORDERED: doxAzosin 4 MG (CARDURA) TAB PO PRN (20:15)
[2022-10-10] MEDS ORDERED: FUROSEMIDE 40 MG/4 ML INJ (LASIX) ONE (20:34)
[2022-10-10] MEDS ORDERED: doxAzosin 4 MG (CARDURA) TAB ONE (21:12)
[2022-10-10 21:19] LABS: BILIRUBIN,URINE NEGATIVE (NEGATIVE); CLARITY,URINE CLEAR; COLOR,URINE YELLOW; GLUCOSE, URINE (UA) NEGATIVE (NEGATIVE); KETONES,URINE TRACE (NEGATIVE); LEUKOCYTE ESTERASE ,URINE 2+ (NEGATIVE); NITRITE,URINE NEGATIVE (NEGATIVE); PROTEIN,URINE 2+ (NEGATIVE)
[2022-10-10 21:31] LABS: BACTERIA,URINE FEW /HPF; RBC,URINE 0-2 /HPF; WBC,URINE >100 /HPF
--- NOTE | 2022-10-10 21:49 | Diagnostic Imaging Report ---
INDICATION: Shortness of breath Frontal chest obtained at 8:07 hours p.m. and comparison made to 10/08/2022. There is prominent cardiomegaly. There is central vascular congestion with perihilar edema and patchy bibasilar infiltrate. There is no pneumothorax. There are trace bilateral pleural effusions which are unchanged. Pacemaker is unchanged IMPRESSION: Prominent cardiomegaly with central vascular congestion, perihilar edema and mild bibasilar infiltrate. Trace bilateral pleural effusions. Dictated by: Dictated on workstation # [id number]
[2022-10-11] MEDS: ENOXAPARIN 80 MG/0.8 ML (LOVENOX) SYR SC SCH ×2 (00:20→13:13)
[2022-10-11] MEDS: RT-ALBUTEROL SULF 2.5 MG/3 ML PRE-MIX VIAL INH SCH ×3 (03:02→21:40)
[2022-10-11 03:16] VITALS: BP 150/77
[2022-10-11] MEDS: ACETAMINOPHEN 325 MG TABLET PO PRN ×2 (05:33→20:34)
[2022-10-11 05:49] LABS: BASOPHILS # (AUTO) 0.1 10^3/uL (0.0-0.1); BASOPHILS % (AUTO) 1 % (0-10); EOSINOPHILS # (AUTO) 0.8 10^3/uL (0.0-0.3); EOSINOPHILS % (AUTO) 9 % (0-10); HEMATOCRIT 29 % (35-52); HEMOGLOBIN 8.9 g/dL (11.5-16.0); LYMPHOCYTES # (AUTO) 1.4 10^3/uL (1.0-4.0); LYMPHOCYTES % (AUTO) 16 % (12-44); MEAN CORPUSCULAR HEMOGLOBIN 25 pg (25-34); MEAN CORPUSCULAR HGB CONC 31 g/dL (32-36); MEAN CORPUSCULAR VOLUME 82 fL (80-99); MEAN PLATELET VOLUME 10.6 fL (9.0-12.2); MONOCYTES # (AUTO) 0.6 10^3/uL (0.0-1.0); MONOCYTES % (AUTO) 7 % (0-12); NEUTROPHILS # (AUTO) 5.8 10^3/uL (1.8-7.8); NEUTROPHILS % (AUTO) 67 % (42-75); PLATELET COUNT 323 10^3/uL (130-400); WHITE BLOOD COUNT 8.7 10^3/uL (4.3-11.0)
[2022-10-11 06:02] LABS: ALBUMIN 3.6 GM/DL (3.2-4.5); POTASSIUM 3.2 MMOL/L (3.6-5.0)
[2022-10-11 06:03] LABS: CALCIUM 9.2 MG/DL (8.5-10.1)
[2022-10-11 06:05] LABS: TOTAL PROTEIN 6.5 GM/DL (6.4-8.2)
[2022-10-11 06:07] LABS: BILIRUBIN,TOTAL 0.9 MG/DL (0.1-1.0)
[2022-10-11 06:08] LABS: CREATININE SERUM 0.62 MG/DL (0.60-1.30)
[2022-10-11] MEDS: ALPRAZolam 0.5 MG (XANAX) TAB PO PRN (06:47)
[2022-10-11 07:08] VITALS: BP 126/55
[2022-10-11] MEDS: ASPIRIN 81 MG CHEW (CHILDREN'S ASA) PO SCH (08:17)
[2022-10-11] MEDS: DOCUSATE SODIUM 100 MG (COLACE) CAP PO SCH ×2 (08:17→20:38)
[2022-10-11] MEDS: meTOproloL SUCCINATE 50 MG (TOPROL XL) TAB PO SCH (08:18)
[2022-10-11] MEDS: SENNOSIDES 8.6 MG (SENOKOT) TAB PO SCH ×2 (08:19→20:38)
[2022-10-11] MEDS: amLODIPine 5 MG (NORVASC) TAB PO SCH (08:19)
[2022-10-11] MEDS: CEFEPIME INJECTION 2,000 MG in NS (IVPB) 50 ML IV SCH ×2 (08:19→20:33)
[2022-10-11] MEDS ORDERED: amLODIPine 5 MG (NORVASC) TAB PO SCH (09:00)
[2022-10-11] MEDS ORDERED: KCL 20 MEQ TAB (K-DUR) PO NR ×2 (10:00)
[2022-10-11 12:18] VITALS: BP 132/70
[2022-10-11] MEDS: LORazepam 1 MG (ATIVAN) TAB PO PRN ×2 (13:18→20:33)
[2022-10-11 15:42] VITALS: BP 163/98
--- NOTE | 2022-10-11 16:35 | Progress Note ---
Subjective Subjective/Events-last exam Patient anxious and confused this AM. Denies any pain. She is taking off her NC because she does not want to wear it. Tolerating PO diet. Review of Systems Pulmonary: No Dyspnea, No Cough Cardiovascular: No: Chest Pain, Palpitations, Edema Gastrointestinal: No: Nausea, Vomiting, Diarrhea, Constipation Neurological: Weakness, Incoordination, Confusion Objective Exam Last Set of Vital Signs Vital Signs Date Time Temp Pulse Resp B/P (MAP) Pulse Ox O2 Delivery O2 Flow Rate FiO2 10/11/22 15:42 36.5 70 48 163/98 (119) 93 Nasal Cannula 2.00 10/08/22 12:19 28 Capillary Refill : Less Than 3 Seconds I&O Intake and Output 10/11/22 00:00 Intake Total 1920 ml Output Total 700 ml Balance 1220 ml Intake Oral 770 ml IV Total 1150 ml Output Urine Total 700 ml # Voids 2 # Bowel Movements 1 General: Alert (to person only, states that she knows were she is but unable to say), Mild Distress (anxious) Lungs: Clear to Auscultation, Normal Air Movement Heart: Regular Rate, Other (loud systolic murmur present) Abdomen: Soft, No Tenderness Extremities: No Edema, No Tenderness/Swelling Neuro: Normal Speech Results/Procedures Lab Laboratory Tests 10/10/22 21:08: Urine Color YELLOW, Urine Clarity CLEAR, Urine pH 6.0, Urine Specific [place] >=1.030, Urine Protein 2+H, Urine Glucose (UA) NEGATIVE, Urine Ketones TRACEH, Urine Nitrite NEGATIVE, Urine Bilirubin NEGATIVE, Urine Urobilinogen 0.2, Urine Leukocyte Esterase 2+H, Urine RBC (Auto) 2+H, Urine RBC 0-2, Urine WBC >100H, Urine Squamous Epithelial Cells 5-10, Urine Crystals NONE, Urine Bacteria FEWH, Urine Casts NONE, Urine Mucus SMALLH, Urine Culture Indicated YES 10/11/22 05:34: White Blood Count 8.7, Red Blood Count 3.52L, Hemoglobin 8.9L, Hematocrit 29L, Mean Corpuscular Volume 82, Mean Corpuscular Hemoglobin 25, Mean Corpuscular Hemoglobin Concent 31L, Red Cell Distribution Width 17.5H, Platelet Count 323, Mean Platelet Volume 10.6, Immature Granulocyte % (Auto) 1, Neutrophils (%) (Auto) 67, Lymphocytes (%) (Auto) 16, Monocytes (%) (Auto) 7, Eosinophils (%) (Auto) 9, Basophils (%) (Auto) 1, Neutrophils # (Auto) 5.8, Lymphocytes # (Auto) 1.4, Monocytes # (Auto) 0.6, Eosinophils # (Auto) 0.8H, Basophils # (Auto) 0.1, Immature Granulocyte # (Auto) 0.0, Sodium Level 141, Potassium Level 3.2L, Chlor thad Level 108H, Carbon Dioxide Level 23, Anion Gap 10, Blood Urea Nitrogen 9, Creatinine 0.62, Estimat Glomerular Filtration Rate 90, BUN/Creatinine Ratio 15, Glucose Level 89, Calcium Level 9.2, Corrected Calcium 9.5, Total Bilirubin 0.9, Aspartate Amino Transf (AST/SGOT) 12, Alanine Aminotransferase (ALT/SGPT) 9, Alkaline Phosphatase 88, Total Protein 6.5, Albumin 3.6 Microbiology 10/10/22 Urine Culture - Preliminary, Resulted Gram Negative Nomi 10/08/22 Blood Culture - Preliminary, Resulted No growth Radiology 10/08: CXR 1: There is interval progression of infiltrates involving the right lung and slight progression of left lung base atelectasis versus infiltrate. 2: There is small left pleural effusion. 3: There is cardiomegaly again noted. Assessment/Plan Assessment/Plan (1) NSTEMI (non-ST elevated myocardial infarction) Status: Acute Assessment & Plan: 10/09: Type II, Cardiology consulted, Denies any chest pain today 10/11: Continues to deny chest pain (2) Hypokalemia Status: Acute Assessment & Plan: 10/09: Replaced and repeat CMP in AM 10/10: Potassium 3.5 today. Continue potassium chloride (3) Hypoxia Status: Resolved Assessment & Plan: 10/09: Continue antibiotics to cover Facility PNA, hypoxia resolved with oxygen NC 10/10: Continue Cefepime antibiotic to cover facility PNA. (4) Essential (primary) hypertension Status: Acute Assessment & Plan: 10/10: Started Amlodipine 2.5mg 10/11: Amlodipine and Metoprolol were added ON, pressures still mildly elevated, add lisinopril today, plan to d/c tomorrow (5) Permanent atrial fibrillation Status: Chronic Assessment & Plan: 10/09: Rate controlled, maintained on OAC 10/10: Continue Lovenox injection. Continue Metoprolol succinate (6) Aortic stenosis (7) Advanced dementia Status: Acute TRACY NAYAK MD Oct 11, 2022 16:35
[2022-10-11] MEDS: lisINopril 10 MG (PRINIVIL) TABLET PO SCH (16:57)
[2022-10-11 19:05] VITALS: BP 166/77
[2022-10-11] MEDS: FAMOTIDINE 20 MG (PEPCID) TABLET PO SCH (20:41)
[2022-10-11 20:47] VITALS: BP 132/70
[2022-10-12 00:26] VITALS: BP 143/72
[2022-10-12] MEDS: ENOXAPARIN 80 MG/0.8 ML (LOVENOX) SYR SC SCH ×2 (00:31→13:16)
[2022-10-12] MEDS: LORazepam 1 MG (ATIVAN) TAB PO PRN ×2 (02:50→09:59)
[2022-10-12] MEDS: ACETAMINOPHEN 325 MG TABLET PO PRN (02:50)
[2022-10-12] MEDS: RT-ALBUTEROL SULF 2.5 MG/3 ML PRE-MIX VIAL INH SCH ×3 (02:58→14:36)
[2022-10-12 03:03] VITALS: BP 136/64
[2022-10-12 05:52] LABS: BASOPHILS # (AUTO) 0.1 10^3/uL (0.0-0.1); BASOPHILS % (AUTO) 1 % (0-10); EOSINOPHILS # (AUTO) 0.4 10^3/uL (0.0-0.3); EOSINOPHILS % (AUTO) 5 % (0-10); HEMATOCRIT 28 % (35-52); HEMOGLOBIN 8.5 g/dL (11.5-16.0); LYMPHOCYTES # (AUTO) 1.6 10^3/uL (1.0-4.0); LYMPHOCYTES % (AUTO) 20 % (12-44); MEAN CORPUSCULAR HEMOGLOBIN 25 pg (25-34); MEAN CORPUSCULAR HGB CONC 30 g/dL (32-36); MEAN CORPUSCULAR VOLUME 82 fL (80-99); MEAN PLATELET VOLUME 11.1 fL (9.0-12.2); MONOCYTES # (AUTO) 0.6 10^3/uL (0.0-1.0); MONOCYTES % (AUTO) 8 % (0-12); NEUTROPHILS # (AUTO) 5.1 10^3/uL (1.8-7.8); NEUTROPHILS % (AUTO) 66 % (42-75); PLATELET COUNT 323 10^3/uL (130-400); WHITE BLOOD COUNT 7.7 10^3/uL (4.3-11.0)
[2022-10-12 05:59] LABS: ALBUMIN 3.6 GM/DL (3.2-4.5); POTASSIUM 3.9 MMOL/L (3.6-5.0)
[2022-10-12 06:00] LABS: CALCIUM 9.4 MG/DL (8.5-10.1)
[2022-10-12 06:01] LABS: TOTAL PROTEIN 6.5 GM/DL (6.4-8.2)
[2022-10-12 06:03] LABS: BILIRUBIN,TOTAL 0.6 MG/DL (0.1-1.0)
[2022-10-12 06:05] LABS: CREATININE SERUM 0.65 MG/DL (0.60-1.30)
[2022-10-12 07:58] VITALS: BP 160/91
[2022-10-12] MEDS: meTOproloL SUCCINATE 50 MG (TOPROL XL) TAB PO SCH (09:37)
[2022-10-12] MEDS: DOCUSATE SODIUM 100 MG (COLACE) CAP PO SCH (09:37)
[2022-10-12] MEDS: ASPIRIN 81 MG CHEW (CHILDREN'S ASA) PO SCH (09:37)
[2022-10-12] MEDS: lisINopril 10 MG (PRINIVIL) TABLET PO SCH (09:37)
[2022-10-12] MEDS: SENNOSIDES 8.6 MG (SENOKOT) TAB PO SCH (09:37)
[2022-10-12] MEDS: amLODIPine 5 MG (NORVASC) TAB PO SCH (09:37)
[2022-10-12] MEDS: CEFEPIME INJECTION 2,000 MG in NS (IVPB) 50 ML IV SCH (09:39)
--- NOTE | 2022-10-12 11:44 | Progress Note - Cardiology ---
Cardiology SOAP Progress Note Subjective: Lying in bed Oriented to self only Objective: I&O/Vital Signs Weight (Pounds): 182 Weight (Ounces): 0.6 Weight (Calculated Kilograms): 77.423143 Constitutional: No AAO x 3; well-developed, well-nourished, other (confused) Respiratory: No accessory muscle use; chest expansion is symmetric, other (bibasilar coarse crackles) Cardiovascular: regular rate-rhythm, S1 and S2, systolic murmur (3/6 MSM at card base)) Gastrointestional: No tender; soft; No guarding, No rebound; audible bowel sounds Extremities: No clubbing, No cyanosis, No significant edema Neurologic/Psychiatric: No oriented x 3; other (moves all limbs equally) Skin: No rash, No ulcerations Results/Procedures: Labs Microbiology 10/10/22 Urine Culture - Final, Complete Escherichia coli 10/08/22 Blood Culture - Final, Complete No growth A/P: Assessment: Severe, uncontrolled hypertension Mild troponin elevation due to type 2 CT due to hypoxia - no evidence of ACS Transient hypoxia - due to oxygen nasal cannula falling off at night before admission, and due to pneumonia Pneumonia Permanent A Fib - has been on OAC for stroke prophylaxis with Eliquis Aortic stenosis - Echo of 03/28/22 (Dr Escalera): LVEF 60-65%, severe , mild AI, mild MAC, mild MR, mild to mod TR, severe enlargement of both atria, PASP 76 mmHg - Echo on 10/09/22: LVEF 65-70%. Biatrial enlargement, mod to severe. Mild to mod MAC. Mild MR. Mod . Mild AI. PASP 70-75 mmHg Anemia - undetermined etiology - management per medical services resp failure due to COPD - on supple oxygen Cardiac pacemaker in situ - details unknow H/o CVA Dementia Plan: * BP remains uncontrolled despite change in regimen yesterday - increase Lisinopril * Management of pneumonia per medical services * Continue supple oxygen and keep SaO2 greater than 90 * Continue anticoag for stroke prophylaxis * Monitor labs * UTI - management per medical services SALLY KENNEDY Oct 12, 2022 11:44
[2022-10-12 11:45] VITALS: BP 152/93
[2022-10-12] MEDS ORDERED: lisINopril 10 MG (PRINIVIL) TABLET PO NR (12:15)
[2022-10-12] MEDS ORDERED: MEROPENEM 500 MG/NS 100 ML IVPB IV SCH ×2 (13:00)
[2022-10-12] MEDS ORDERED: MEROPENEM 1,000 MG in NS (IVPB) 100 ML IV SCH (13:00)
--- NOTE | 2022-10-12 13:55 | Discharge Summary ---
Discharge Summary Reconcile Patient Problems Problems Reviewed?: Yes Hospital Course Hospital Course Date of Admission: Oct 08, 2022 at 10:04 Admission Diagnosis : Family Physician/Provider: Jason Boudreaux MD Date of Discharge: 10/12/22 Discharge Diagnosis: NSTEMI PNA EBSL UTI Hypoxia HTN Atrial Fibrillation Aortic Stenosis Dementia Labs and Pending Lab Test: Laboratory Tests 10/12/22 05:31: White Blood Count 7.7, Red Blood Count 3.44L, Hemoglobin 8.5L, Hematocrit 28L, Mean Corpuscular Volume 82, Mean Corpuscular Hemoglobin 25, Mean Corpuscular Hemoglobin Concent 30L, Red Cell Distribution Width 17.5H, Platelet Count 323, Mean Platelet Volume 11.1, Immature Granulocyte % (Auto) 0, Neutrophils (%) (Auto) 66, Lymphocytes (%) (Auto) 20, Monocytes (%) (Auto) 8, Eosinophils (%) (Auto) 5, Basophils (%) (Auto) 1, Neutrophils # (Auto) 5.1, Lymphocytes # (Auto) 1.6, Monocytes # (Auto) 0.6, Eosinophils # (Auto) 0.4H, Basophils # (Auto) 0.1, Immature Granulocyte # (Auto) 0.0, Sodium Level 142, Potassium Level 3.9, Chloride Level 111H, Carbon Dioxide Level 23, Anion Gap 8, Blood Urea Nitrogen 15, Creatinine 0.65, Estimat Glomerular Filtration Rate 89, BUN/Creatinine Ratio 23, Glucose Level 94, Calcium Level 9.4, Corrected Calcium 9.7, Magnesium Level 2.0, Total Bilirubin 0.6, Aspartate Amino Transf (AST/SGOT) 12, Alanine Aminotransferase (ALT/SGPT) 11, Alkaline Phosphatase 83, Total Protein 6.5, Albumin 3.6 Microbiology 10/10/22 Urine Culture - Preliminary, Resulted Escherichia coli 10/08/22 Blood Culture - Preliminary, Resulted No growth Home Meds Active Reported Docusate Sodium 100 Mg Capsule 100 Mg PO BID Milk of Magnesia (Magnesium Hydroxide) 2,400 Mg/10 Ml Oral.susp 30 Ml PO DAILY PRN Breo Ellipta 200-25 Mcg INH (Fluticasone/Vilanterol) 200 Mcg-25 Mcg/Dose Blst.w.dev 1 Puff INH DAILY RINSE AND SPIT MOUTH WITH WATER AFTER EACH USE Lisinopril 2.5 Mg Tablet 2.5 Mg PO DAILY HOLD FOR SBP LESS THAN 100 OR DBP LESS THAN 60 Vitamin C (Ascorbate Calcium) 500 Mg Tablet 500 Mg PO BID Xanax (Alprazolam) 0.25 Mg Tablet 0.25 Mg PO HS Tramadol HCl 50 Mg Tablet 50 Mg PO Q12H Fish Oil 1,200 mg Fish Oil (Fish Oil/Dha/Epa) 1,200 Mg-144 Mg-216 Mg Capsule 1 Each PO 1800 Neurontin (Gabapentin) 300 Mg Capsule 300 Mg PO TID Hydrocodone-Acetamin 5-325 mg (Hydrocodone/Acetaminophen) 5 Mg-325 Mg Tablet 1 Tab PO Q6H PRN Preservision Areds Softgel (Vit A/C/E/Zinc/Co) 14,320-226 Capsule 1 Cap PO DAILY Vitamin D3 (Cholecalciferol (Vitamin D3)) 25 Mcg (1000 Unit) Capsule 25 Mcg PO DAILY Proventil Hfa (Albuterol Sulfate) 6.7 Gm Hfa.aer.ad 2 Puff INH Q6H PRN Meloxicam 15 Mg Tablet 15 Mg PO 1400 Furosemide 40 Mg Tablet 60 Mg PO DAILY TAKES 1 & (20MG) TABS Potassium Chloride 20 Meq Tab.er.prt 20 Meq PO DAILY Amlodipine Besylate 5 Mg Tablet 5 Mg PO DAILY HOLD FOR SBP <100 OR HR <60 Pravastatin Sodium 10 Mg Tablet 10 Mg PO HS Eliquis (Apixaban) 5 Mg Tablet 5 Mg PO Q12H Citalopram HBr (Citalopram Hydrobromide) 10 Mg Tablet 10 Mg PO HS Xalatan (Latanoprost) 2.5 Ml Drops 1 Drop OU HS Amitriptyline HCl 25 Mg Tablet 25 Mg PO HS Ropinirole HCl 1 Mg Tablet 1 Mg PO HS Instructions to Patient/Family Assessment/Instructions 3 days of Meropeum to treate ESBL in the urine, then D/c rachel catheter Skilled NF Admit to: Via [facility] Certification (SNF) I certify that SNF services are required to be given on an inpatient basis because of the above named patient's need for custodial care on a continuing basis for the conditions(s) for which he/she was receiving inpatient hospital services prior to his/her transfer to the SNF. Halfway Facility Order: Nursing Services, Community Mental Health Worker-Evaluate & Treat, Physical Therapy-Evaluate & Treat Oxygen Delivery Method: Nasal Cannula Discharge Diet: Cardiac Diet Daily Activity as Tolerated: Yes Resuscitation Status: Do Not Resuscitate Edilma Valencia Oct 12, 2022 13:46 Discharge Physical Exam General: Alert (to self only), No Acute Distress Lungs: Clear to Auscultation, Normal Air Movement Heart: Regular Rate, Other (Loud systolic murmur) Abdomen: Normal Bowel Sounds, Soft, No Tenderness Extremities: No Edema, No Tenderness/Swelling Skin: No Rashes EDILMA VALENCIA MD Oct 12, 2022 13:51
[2022-10-12] MEDS ORDERED: MERO1VIA23 IV (13:59)
[2022-10-12] MEDS ORDERED: ASPI81TA64 PO (13:59)
[2022-10-12] MEDS ORDERED: LISI20TA26 PO (13:59)
[2022-10-12] MEDS ORDERED: AMLO-250 PO (13:59)
[2022-10-12] MEDS ORDERED: METO50TA7 PO (13:59)
--- NOTE | 2022-10-12 15:25 | Progress Note - Cardiology ---
Cardiology SOAP Progress Note Subjective: Confused Unreponsive to questions Objective: I&O/Vital Signs 10/12/22 10/12/22 10/12/22 10/12/22 07:00 07:58 08:00 10:13 Temp 36.6 Pulse 71 66 Resp 18 B/P (MAP) 160/91 (114) Pulse Ox 92 88 O2 Delivery Nasal Cannula Nasal Cannula Nasal Cannula O2 Flow Rate 2.00 3.00 2.00 10/12/22 10/12/22 10/12/22 10/12/22 11:45 12:46 13:55 14:37 Temp 36.7 Pulse 58 60 Resp 19 B/P (MAP) 152/93 (112) Pulse Ox 96 95 O2 Delivery Nasal Cannula Nasal Cannula Nasal Cannula O2 Flow Rate 3.00 3.00 10/12/22 00:00 Intake Total 830 ml Output Total 550 ml Balance 280 ml Weight (Pounds): 182 Weight (Ounces): 0.6 Weight (Calculated Kilograms): 77.295255 Constitutional: No AAO x 3; well-developed, well-nourished, other (confused) Respiratory: No accessory muscle use; chest expansion is symmetric, other (bibasilar coarse crackles) Cardiovascular: regular rate-rhythm, S1 and S2, systolic murmur (3/6 MSM at card base)) Gastrointestional: No tender; soft; No guarding, No rebound; audible bowel sounds Extremities: No clubbing, No cyanosis, No significant edema Neurologic/Psychiatric: No oriented x 3; other (moves all limbs equally) Skin: No rash, No ulcerations Results/Procedures: Labs Laboratory Tests 10/12/22 05:31: White Blood Count 7.7, Red Blood Count 3.44L, Hemoglobin 8.5L, Hematocrit 28L, Mean Corpuscular Volume 82, Mean Corpuscular Hemoglobin 25, Mean Corpuscular Hemoglobin Concent 30L, Red Cell Distribution Width 17.5H, Platelet Count 323, Mean Platelet Volume 11.1, Immature Granulocyte % (Auto) 0, Neutrophils (%) (Auto) 66, Lymphocytes (%) (Auto) 20, Monocytes (%) (Auto) 8, Eosinophils (%) (Auto) 5, Basophils (%) (Auto) 1, Neutrophils # (Auto) 5.1, Lymphocytes # (Auto) 1.6, Monocytes # (Auto) 0.6, Eosinophils # (Auto) 0.4H, Basophils # (Auto) 0.1, Immature Granulocyte # (Auto) 0.0, Sodium Level 142, Potassium Level 3.9, Chloride Level 111H, Carbon Dioxide Level 23, Anion Gap 8, Blood Urea Nitrogen 15, Creatinine 0.65, Estimat Glomerular Filtration Rate 89, BUN/Creatinine Ratio 23, Glucose Level 94, Calcium Level 9.4, Corrected Calcium 9.7, Magnesium Level 2.0, Total Bilirubin 0.6, Aspartate Amino Transf (AST/SGOT) 12, Alanine Aminotransferase (ALT/SGPT) 11, Alkaline Phosphatase 83, Total Protein 6.5, Albumin 3.6 Microbiology 10/10/22 Urine Culture - Preliminary, Resulted Escherichia coli 10/08/22 Blood Culture - Preliminary, Resulted No growth Laboratory Tests 10/11/22 05:34 10/12/22 05:31 A/P: Assessment: Severe, uncontrolled hypertension Mild troponin elevation due to type 2 DC due to hypoxia - no evidence of ACS Transient hypoxia - due to oxygen nasal cannula falling off at night before admission, and due to pneumonia Pneumonia Permanent A Fib - has been on OAC for stroke prophylaxis with Eliquis Aortic stenosis - Echo of 03/28/22 (Dr Escalera): LVEF 60-65%, severe , mild AI, mild MAC, mild MR, mild to mod TR, severe enlargement of both atria, PASP 76 mmHg - Echo on 10/09/22: LVEF 65-70%. Biatrial enlargement, mod to severe. Mild to mod MAC. Mild MR. Mod . Mild AI. PASP 70-75 mmHg Anemia - undetermined etiology - management per medical services resp failure due to COPD - on supple oxygen Cardiac pacemaker in situ - details unknow H/o CVA Dementia Plan: * Continue antihypertensive regimen * Management of pneumonia per medical services * Continue supple oxygen and keep SaO2 greater than 90 * Continue anticoag for stroke prophylaxis * Monitor labs * UTI - management per medical services KIA STILL MD FACP [facility] Oct 12, 2022 15:25
[2022-10-12] MEDS ORDERED: lisINopril 10 MG (PRINIVIL) TABLET PO SCH (21:00)
== END 2022-10-12 13:55 ==
LOC: EDUNIT# 06:40 → ER 06:42 → UNDOADMOB 10:04 → 4TH 10:04 → UNDODISOB 10-12 13:55
PROVIDERS: ADMIT Internal Medicine; ATTEND Family Medicine
DX: J18.9 Pneumonia, unspecified organism (principal); I21.A1 Myocardial infarction type 2; N39.0 Urinary tract infection, site not specified; I10 Essential (primary) hypertension; I48.91 Unspecified atrial fibrillation; I35.0 Nonrheumatic aortic (valve) stenosis; F03.90 Unspecified dementia, unspecified severity, without behavioral disturbance, psychotic disturbance, mood disturbance, and anxiety; I48.21 Permanent atrial fibrillation; D64.9 Anemia, unspecified; J44.9 Chronic obstructive pulmonary disease, unspecified; Z86.73 Personal history of transient ischemic attack (TIA), and cerebral infarction without residual deficits; E87.6 Hypokalemia; J96.10 Chronic respiratory failure, unspecified whether with hypoxia or hypercapnia; Z95.0 Presence of cardiac pacemaker; Z79.899 Other long term (current) drug therapy
CPT/HCPCS: 36600; 71045 ×2; 80053 ×5; 80061; 81000; 82805; 83735 ×2; 84484; 85007; 85025 ×4; 85027; 87040; 87077; 87088; 87186; 93005; 94640 ×5; 94760 ×4; 96365 ×3; 96372 ×5; 96375 ×4; 96376; 97162; 97165; 99284; C8929; G0378; 36415; 93306

== ENCOUNTER 2022-11-07 08:36 | Inpatient (IN) | payer MEDICARE ==
[2022-11-07] VITALS (10 sets, daily range): BP systolic 101–131; BP diastolic 53–78
[~2022-11-07] VITALS: Ht 165 cm; Wt 65.6 kg
[~2022-11-07 08:36] MED LIST changes: +ASPI81TA64 PO; +LISI20TA26 PO; +MERO1VIA23 IV; +METO50TA7 PO
[2022-11-07] MEDS ORDERED: methylPREDNISolone 125 MG (Solu-MEDROL) VIAL IV STA (08:42)
[2022-11-07] MEDS ORDERED: LIDOCAINE UROJET 2% GEL 10 ML PKG TOP ONE (08:45)
[2022-11-07] MEDS ORDERED: RT-ALBUTEROL/IPRATROPIUM 3 ML (DUONEB) VIAL INH ONE (08:45)
[2022-11-07 08:53] LABS: BASOPHILS # (AUTO) 0.1 10^3/uL (0.0-0.1); BASOPHILS % (AUTO) 0 % (0-10); EOSINOPHILS # (AUTO) 0.2 10^3/uL (0.0-0.3); EOSINOPHILS % (AUTO) 2 % (0-10); HEMATOCRIT 26 % (35-52); HEMOGLOBIN 7.6 g/dL (11.5-16.0); LYMPHOCYTES # (AUTO) 0.9 10^3/uL (1.0-4.0); LYMPHOCYTES % (AUTO) 6 % (12-44); MEAN CORPUSCULAR HEMOGLOBIN 24 pg (25-34); MEAN CORPUSCULAR HGB CONC 30 g/dL (32-36); MEAN CORPUSCULAR VOLUME 81 fL (80-99); MEAN PLATELET VOLUME 10.5 fL (9.0-12.2); MONOCYTES # (AUTO) 0.7 10^3/uL (0.0-1.0); MONOCYTES % (AUTO) 5 % (0-12); NEUTROPHILS # (AUTO) 13.3 10^3/uL (1.8-7.8); NEUTROPHILS % (AUTO) 87 % (42-75); PLATELET COUNT 503 10^3/uL (130-400); WHITE BLOOD COUNT 15.3 10^3/uL (4.3-11.0)
[2022-11-07 09:07] LABS: ALBUMIN 3.8 GM/DL (3.2-4.5); POTASSIUM 4.1 MMOL/L (3.6-5.0)
[2022-11-07 09:08] LABS: CALCIUM 8.8 MG/DL (8.5-10.1)
[2022-11-07 09:10] LABS: INR 1.7 (0.8-1.4); PROTHROMBIN TIME PATIENT 20.1 SEC (12.2-14.7)
[2022-11-07 09:13] LABS: CREATININE SERUM 0.95 MG/DL (0.60-1.30)
[2022-11-07 09:16] LABS: MAGNESIUM 2.2 MG/DL (1.6-2.4)
--- NOTE | 2022-11-07 09:19 | Diagnostic Imaging Report ---
Indication: Respiratory distress. Compared: 10/10/2022 Pacemaker device overlies the right chest. The heart is enlarged. There is vascular congestion. There are small pleural effusions and bilateral perihilar edema unchanged. Impression: No real change and likely failure pattern and support apparatus. Dictated by: Dictated on workstation # [id number]
--- NOTE | 2022-11-07 09:21 | ED Respiratory ---
General Chief Complaint: Respiratory Problems Stated Complaint: RESPIRATORY DISTRESS Nursing Triage Note: PT ARRIVED [facility] FROM [facility] WITH COMPLAINTS OF SOB AND O2 AT 67%. PT WAS PUT ON O2 VIA MASK AT 15L, PTS O2 WAS IN THE 90'S AND O2 WAS THEN TRITRATED DOWN TO 10L. Allergies and Home Medications Allergies Coded Allergies: doxycycline (Unverified Allergy, Mild, 11/26/17) Patient Home Medication List Albuterol Sulfate (Proventil Hfa) 6.7 Gm Hfa.aer.ad, 2 PUFF INH Q6H PRN for SHORTNESS OF BREATH, (Reported) Entered as Reported by: ABHIJEET FELIPE on 03/28/22 1422 Alprazolam (Xanax) 0.25 Mg Tablet, 0.25 MG PO HS, (Reported) Entered as Reported by: ABHIJEET FELIPE on 06/01/22 1114 Amitriptyline HCl (Amitriptyline HCl) 25 Mg Tablet, 25 MG PO HS, (Reported) Entered as Reported by: SREEDHAR MCMANUS on 09/26/20 1610 Amlodipine Besylate (Amlodipine Besylate) 5 Mg Tablet, 10 MG PO DAILY Prescribed by: TRACY NAYAK on 10/12/22 1359 Apixaban (Eliquis) 5 Mg Tablet, 5 MG PO Q12H, (Reported) Entered as Reported by: ABHIJEET FELIPE on 02/24/21 1308 Ascorbate Calcium (Vitamin C) 500 Mg Tablet, 500 MG PO BID, (Reported) Entered as Reported by: ABHIJEET FELIPE on 06/01/22 1114 Aspirin (Children's Aspirin) 81 Mg Tab.chew, 81 MG PO DAILY Prescribed by: TRACY NAYAK on 10/12/22 1359 Cholecalciferol (Vitamin D3) (Vitamin D3) 25 Mcg (1000 Unit) Capsule, 25 MCG PO DAILY, (Reported) Entered as Reported by: ABHIJEET FELIPE on 03/28/22 1424 Citalopram Hydrobromide (Citalopram HBr) 10 Mg Tablet, 10 MG PO HS, (Reported) Entered as Reported by: ABHIJEET FELIPE on 02/24/21 1308 Docusate Sodium (Docusate Sodium) 100 Mg Capsule, 100 MG PO BID, (Reported) Entered as Reported by: ABHIJEET FELIPE on 06/01/22 1114 Fish Oil/Dha/Epa (Fish Oil 1,200 mg Fish Oil) 1,200 Mg-144 Mg-216 Mg Capsule, 1 EACH PO 1800, (Reported) Entered as Reported by: ABHIJEET FELIPE on 06/01/22 111 Fluticasone/Vilanterol (Breo Ellipta 200-25 Mcg INH) 200 Mcg-25 Mcg/Dose Blst.w.dev, 1 PUFF INH DAILY, (Reported) Entered as Reported by: ABHIJEET FELIPE on 06/01/22 111 Furosemide (Furosemide) 40 Mg Tablet, 60 MG PO DAILY, (Reported) Entered as Reported by: ABHIJEET FELIPE on 03/28/22 115 Gabapentin (Neurontin) 300 Mg Capsule, 300 MG PO TID, (Reported) Entered as Reported by: ABHIJEET FELIPE on 06/01/22 111 Hydrocodone/Acetaminophen (Hydrocodone-Acetamin 5-325 mg) 5 Mg-325 Mg Tablet, 1 TAB PO Q6H PRN for PAIN-MODERATE (5-7), (Reported) Entered as Reported by: ABHIJEET FELIPE on 06/01/22 111 Latanoprost (Xalatan) 2.5 Ml Drops, 1 DROP OU HS, (Reported) Entered as Reported by: ABHIJEET FELIPE on 09/28/20 0910 Lisinopril (Lisinopril) 20 Mg Tablet, 20 MG PO DAILY Prescribed by: TRACY NAYAK on 10/12/22 135 Magnesium Hydroxide (Milk of Magnesia) 2,400 Mg/10 Ml Oral.susp, 30 ML PO DAILY PRN for CONSTIPATION-7TH LINE, (Reported) Entered as Reported by: ABHIJEET FELIPE on 06/01/22 111 Meropenem (Meropenem) 1 Gram Vial, 1 GM IV Q12H Prescribed by: TRACY NAYAK on 10/12/22 135 Metoprolol Succinate (Metoprolol Succinate) 50 Mg Tab.er.24h, 50 MG PO DAILY Prescribed by: TRACY NAYAK on 10/12/22 135 Potassium Chloride (Potassium Chloride) 20 Meq Tab.er.prt, 20 MEQ PO DAILY, (Reported) Entered as Reported by: ABHIJEET FELIPE on 03/28/22 115 Ropinirole HCl (Ropinirole HCl) 1 Mg Tablet, 1 MG PO HS, (Reported) Entered as Reported by: ESTEFANÍA FIORE on 11/26/17 0843 Tramadol HCl (Tramadol HCl) 50 Mg Tablet, 50 MG PO Q12H, (Reported) Entered as Reported by: ABHIJEET FELIPE on 06/01/22 1114 Vit A/C/E/Zinc/Co (Preservision Areds Softgel) 14,320-226 Capsule, 1 CAP PO DAILY, (Reported) Entered as Reported by: ABHIJEET FELIPE on 03/28/22 1424 Past Wnujbaw-Igkbne-Qfsbyb Hx Patient Social History Tobacco Use?: No Substance use?: No Alcohol Use?: No Immunizations Up To Date First/Initial COVID19 Vaccinat: UNK Second COVID19 Vaccination Ronald: UNK Third COVID19 Vaccination Date: UNK Seasonal Allergies Seasonal Allergies: Yes Past Medical History Surgery/Hospitalization HX: Unknown Surgeries: Yes Section, Pacemaker, Tonsillectomy Respiratory: Yes Asthma, Sleep Apnea, COPD Currently Using CPAP: No Cardiac: Yes (CHF; LBBB) Atrial Fibrillation, High Cholesterol, Hypertension, Valvular Heart Disease Neurological: Yes (rest less leg syndrome) Dementia, Stroke Reproductive Disorders: No Sexually Transmitted Disease: No HIV/AIDS: No Genitourinary: Yes Renal Failure Gastrointestinal: Yes Gastroesophageal Reflux, Chronic Constipation Musculoskeletal: Yes Arthritis, Chronic Back Pain Endocrine: No 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 0.6oz. 77.830324gi; 19.00 BMI Method:Stated Focused Exam Lactate Level 11/07/22 08:40: Lactic Acid Level Laboratory Tests Test 11/07/22 08:40 Progress/Results/Core Measures Suspected Sepsis SIRS Temperature: Pulse: 75 Respiratory Rate: 26 Laboratory Tests 11/07/22 08:40: White Blood Count 15.3H Blood Pressure 120 /37 Mean: 64 11/07/22 08:40: Laboratory Tests 11/07/22 08:40: Creatinine 0.95, INR Comment 1.7H, Platelet Count 503H, Total Bilirubin 1.0 Results/Orders Lab Results Laboratory Tests Test 11/07/22 08:40 11/07/22 08:42 Range/Units White Blood Count 15.3 H 4.3-11.0 10^3/uL Red Blood Count 3.16 L 3.80-5.11 10^6/uL Hemoglobin 7.6 L 11.5-16.0 g/dL Hematocrit 26 L 35-52 % Mean Corpuscular Volume 81 80-99 fL Mean Corpuscular Hemoglobin 24 L 25-34 pg Mean Corpuscular Hemoglobin Concent 30 L 32-36 g/dL Red Cell Distribution Width 16.6 H 10.0-14.5 % Platelet Count 503 H 130-400 10^3/uL Mean Platelet Volume 10.5 9.0-12.2 fL Immature Granulocyte % (Auto) 1 % Neutrophils (%) (Auto) 87 H 42-75 % Lymphocytes (%) (Auto) 6 L 12-44 % Monocytes (%) (Auto) 5 0-12 % Eosinophils (%) (Auto) 2 0-10 % Basophils (%) (Auto) 0 0-10 % Neutrophils # (Auto) 13.3 H 1.8-7.8 10^3/uL Lymphocytes # (Auto) 0.9 L 1.0-4.0 10^3/uL Monocytes # (Auto) 0.7 0.0-1.0 10^3/uL Eosinophils # (Auto) 0.2 0.0-0.3 10^3/uL Basophils # (Auto) 0.1 0.0-0.1 10^3/uL Immature Granulocyte # (Auto) 0.1 0.0-0.1 10^3/uL Erythrocyte Sedimentation Rate 33 H 0-30 MM/HR Prothrombin Time 20.1 H 12.2-14.7 SEC INR Comment 1.7 H 0.8-1.4 Activated Partial Thromboplast Time 35 24-35 SEC Sodium Level 142 135-145 MMOL/L Potassium Level 4.1 3.6-5.0 MMOL/L Chloride Level 107 98-107 MMOL/L Carbon Dioxide Level 25 21-32 MMOL/L Anion Gap 10 5-14 MMOL/L Blood Urea Nitrogen 20 H 7-18 MG/DL Creatinine 0.95 0.60-1.30 MG/DL Estimat Glomerular Filtration Rate 61 BUN/Creatinine Ratio 21 Glucose Level 179 H 70-105 MG/DL Calcium Level 8.8 8.5-10.1 MG/DL Corrected Calcium 9.0 8.5-10.1 MG/DL Magnesium Level 2.2 1.6-2.4 MG/DL Total Bilirubin 1.0 0.1-1.0 MG/DL Aspartate Amino Transf (AST/SGOT) 12 5-34 U/L Alanine Aminotransferase (ALT/SGPT) 9 0-55 U/L Alkaline Phosphatase 100 40-136 U/L Total Creatine Kinase 67 29-168 U/L Creatine Kinase MB 3.6 <6.6 NG/ML Myoglobin 76.5 10.0-92.0 NG/ML Troponin I 0.040 H <0.028 NG/ML C-Reactive Protein High Sensitivity 2.23 H 0.00-0.50 MG/DL B-Type Natriuretic Peptide 1158.0 H <100.0 PG/ML Total Protein 7.0 6.4-8.2 GM/DL Albumin 3.8 3.2-4.5 GM/DL Influenza Type A (RT-PCR) Not Detected Not Detecte Influenza Type B (RT-PCR) Not Detected Not Detecte SARS-CoV-2 RNA (RT-PCR) Detected H Not Detecte My Orders Orders - EL LIU DO Ed Iv/Invasive Line Start (11/07/22 08:42) Ekg Tracing (11/07/22 08:42) Catheter(Urinary) Insert & Ass 03,15 (11/07/22 08:42) O2 (11/07/22 08:42) Monitor-Rhythm Ecg Trace Only (11/07/22 08:42) Arterial Blood Gas (11/07/22 08:42) Bnp Scott (11/07/22 08:42) Cbc With Automated Diff (11/07/22 08:42) Comprehensive Metabolic Panel (11/07/22 08:42) Creatine Kinase (11/07/22 08:42) Creatine Kinase Mb (11/07/22 08:42) Hs C Reactive Protein (11/07/22 08:42) Lactic Acid Analyzer (11/07/22 08:42) Magnesium (11/07/22 08:42) Protime With Inr (11/07/22 08:42) Partial Thromboplastin Time (11/07/22 08:42) Ua Culture If Indicated (11/07/22 08:42) Erythrocyte Sedimentation Rate (11/07/22 08:42) Myoglobin Serum (11/07/22 08:42) Troponin I Scott (11/07/22 08:42) Ed Iv/Invasive Line Start (11/07/22 08:42) Chest 1 View, Ap/Pa Only (11/07/22 08:42) Covid 19 Inhouse Test (11/07/22 08:42) Albuterol/Ipra Inhalation Soln (Duoneb I (11/07/22 08:45) Dexamethasone Injection (Decadron Injec (11/07/22 08:45) Rt Request For Service (11/07/22 08:42) Methylprednisolone Sod Succ (Solu-Medrol (11/07/22 08:42) Lidocaine 2% (Urojet) (Xylocaine Urojet) (11/07/22 08:45) Influenza A And B By Pcr (11/07/22 08:42) Isolation Central Supply Req (11/07/22 08:42) Svn Small Volume Nebulizer (11/07/22 08:42) Manual Differential (11/07/22 08:40) Arterial Blood Draw - Obtain (11/07/22 ) Medications Given in ED Current Medications Medications Dose Ordered Sig/Jimi Route Start Time Stop Time Status Last Admin Dose Admin Albuterol/ Ipratropium 3 ml ONCE ONCE INH 11/07/22 08:45 11/07/22 08:46 DC 11/07/22 08:57 3 ML Dexamethasone Sodium Phosphate 20 mg ONCE ONCE IH 11/07/22 08:45 11/07/22 08:46 DC 11/07/22 08:57 20 MG Vital Signs/I&O 11/07/22 11/07/22 11/07/22 11/07/22 08:40 08:40 08:40 08:57 Pulse 75 Resp 26 B/P (MAP) 120/37 (64) Pulse Ox 94 94 95 O2 Delivery Nasal Cannula Nasal Cannula Nasal Cannula Nasal Cannula O2 Flow Rate 5.00 5.00 8.00 5.00 Capillary Refill : Blood Pressure Mean: 64 Diagnostic Imaging Comments CXR--PER RADIOLOGIST REPORT AT 0925 Compared: 10/10/2022 Pacemaker device overlies the right chest. The heart is enlarged. There is vascular congestion. There are small pleural effusions and bilateral perihilar edema unchanged. Impression: No real change and likely failure pattern and support apparatus. Reviewed: Reviewed by Me Departure Impression Primary Impression: Acute on chronic respiratory failure with hypoxia and hypercapnia Departure-Patient Inst. Referrals: JUSTIN JOHNSON MD (PCP/Family) Primary Care Physician EL LIU DO Nov 07, 2022 09:21
[2022-11-07 09:23] LABS: CREATINE KINASE MB 3.6 NG/ML (<6.6)
[2022-11-07 09:24] LABS: ERYTHROCYTE SEDIMENTATION RATE 33 MM/HR (0-30)
[2022-11-07 09:25] LABS: ABG BASE EXCESS 1.5 MMOL/L (-2.5-2.5); ABG OXYGEN SATURATION 95 % (94-100); ABG PCO2 47 MMHG (35-45); ABG PH 7.37 (7.37-7.43); ABG PO2 75 MMHG (79-93); ABG TCO2 27.7 MMOL/L (21.0-31.0); ALLENS TEST YES-POS; INSPIRED O2 5L; PATIENT TEMP 37; VENTILATOR NO
[2022-11-07 09:44] LABS: BAND NEUTROPHILS 1 %; BASOPHILS % (MANUAL) 0 %; EOSINOPHILS % (MANUAL) 4 %; LYMPHOCYTES % (MANUAL) 7 %; MONOCYTES % (MANUAL) 1 %; NEUTROPHILS % (MANUAL) 87 %
[2022-11-07 09:45] LABS: ANISOCYTOSIS SLIGHT; ELLIPT/OVALOCYTES SLIGHT; HYPOCHROMASIA SLIGHT; POLYCHROMASIA SLIGHT
[2022-11-07] MEDS ORDERED: FUROSEMIDE 40 MG/4 ML INJ (LASIX) IVP ONE (09:45)
[2022-11-07] MEDS ORDERED: NS IV 500 ML 500 ML IV ONE (11:00)
[2022-11-07] MEDS ORDERED: LACTULOSE SYRUP 10GM/15ML (ENULOSE) 30ML UDC PO PRN (11:15)
[2022-11-07] MEDS ORDERED: polyethylene glycoL POWDER 17 GM (MIRALAX) PACK PO PRN (11:15)
[2022-11-07] MEDS ORDERED: ONDANSETRON 4 MG/2 ML (SDV) Z0FRAN IV PRN (11:15)
[2022-11-07] MEDS ORDERED: NS IV 500 ML 500 ML IV PRN (11:15)
[2022-11-07] MEDS ORDERED: ONDANSETRON 4 MG (ZOFRAN) ORAL DISSOLVE TAB PO PRN (11:15)
[2022-11-07] MEDS ORDERED: ANTACID SUSP 30 ML UDC (MYLANTA) PO PRN (11:15)
[2022-11-07] MEDS ORDERED: MELATONIN 3 MG TABLET PO PRN (11:15)
[2022-11-07] MEDS ORDERED: MILK OF MAGNESIA 400 MG/5 ML 30 ML UDC PO PRN (11:15)
[2022-11-07] MEDS ORDERED: ACETAMINOPHEN 325 MG TABLET PO PRN (11:15)
[2022-11-07] MEDS ORDERED: CALCIUM CARBONATE 500 MG (TUMS) TAB.CHEW PO PRN (11:15)
[2022-11-07] MEDS ORDERED: BISACODYL 10 MG SUPP (DULCOLAX) PR PRN (11:15)
[2022-11-07 13:14] LABS: BILIRUBIN,URINE NEGATIVE (NEGATIVE); CLARITY,URINE CLEAR; COLOR,URINE YELLOW; GLUCOSE, URINE (UA) NEGATIVE (NEGATIVE); KETONES,URINE NEGATIVE (NEGATIVE); LEUKOCYTE ESTERASE ,URINE 1+ (NEGATIVE); NITRITE,URINE NEGATIVE (NEGATIVE); PROTEIN,URINE NEGATIVE (NEGATIVE)
[2022-11-07 13:41] LABS: BACTERIA,URINE NEGATIVE /HPF; RBC,URINE RARE /HPF
[2022-11-07 13:42] LABS: HYALINE CASTS, URINE RARE /LPF
[2022-11-07] MEDS ORDERED: ENOXAPARIN 40 MG/0.4 ML (LOVENOX) SYR SC SCH (15:00)
--- NOTE | 2022-11-07 15:07 | Tele-ICU Consult ---
History of Present Illness History of Present Illness Date Seen by Provider: Nov 07, 2022 Time Seen by Provider: 15:06 History of Present Illness (Tele-ICU Physician , consultation as per request of PCP Service provided via interactive audio and video telecommunications E-CARE system to a patient admitted to ICU bed in [facility]. Available chart/ vitals / labs / Images reviewed H&P is from ER notes Patient's information available about PMH, Shx, Fhx allergy reviewed inEMR. ROS as per chart and RN report Now in ICU, hemodynamically stable Video assessment done using teleICU camera, rest of exam as per RN Discussed with RN. Consultants: Hospital course: A/P Covid + / viral pneumonitis - Steroids started Acute on chronic respiratory failure with hypoxia due to Covid - NC 8 l now Mild troponin elevation and BNP -due to above COPD, cronic resp failure - nebs -IV steroids - changed to po 06/01 - cefepime 05/31 Anemia - no obvious sign of bleeding - 1 u prbc started on ER , Eliquis on hold Permanent A Fib - has been on OAC for stroke prophylaxis with Eliquis HFpEF - Echo on 10/09/22: LVEF 65-70%. Biatrial enlargement, mod to severe. Mild to mod MAC. Mild MR. Mod . Mild AI severe aortic stenosis - monitor , as per cads note prior - -not a candidate for any intervvention Pulm HTN , -Echo on 10/09/22: PASP 70-75 mmHg Advanced dementia - at risk for aspiration Effusion , plural R> L - monitor , not sign chaneged Lines : , (Central Line Necessity Reviewed) Chavis: OG: Nutrition: Analgesia: Anxiety/ delirium VTE Prophylaxis: sapna , ? resume eliquis Stress Ulcer Prophylaxis: Plans in collaboration with bedside consultants and IM MDs. Discussed with RN to reach out if any questions or concerns A total of 31 minutes of critical care time was devoted to this patient today, required to treat and/or prevent further deterioration of critical care condition ( as above ) . I am remotely monitoring this patient from another state. I am unable to do the bedside exam, and history/physical and pertinent information is taken from other notes in the computer and bedside staff. . Allergies and Home Medications Allergies Coded Allergies: doxycycline (Unverified Allergy, Mild, 11/26/17) Home Medications Albuterol Sulfate 6.7 Gm Hfa.aer.ad, 2 PUFF INH Q6H PRN for SHORTNESS OF BREATH, (Reported) Alprazolam 0.25 Mg Tablet, 0.25 MG PO HS, (Reported) Amitriptyline HCl 25 Mg Tablet, 25 MG PO HS, (Reported) Amlodipine Besylate 5 Mg Tablet, 10 MG PO DAILY Prescribed by: TRACY NAYAK on 10/12/221358 Apixaban 5 Mg Tablet, 5 MG PO Q12H, (Reported) Ascorbate Calcium 500 Mg Tablet, 500 MG PO BID, (Reported) Aspirin 81 Mg Tab.chew, 81 MG PO DAILY Prescribed by: TRACY NAYAK on 10/12/221358 Cholecalciferol (Vitamin D3) 25 Mcg (1000 Unit) Capsule, 25 MCG PO DAILY, (Reported) Citalopram Hydrobromide 10 Mg Tablet, 10 MG PO HS, (Reported) Docusate Sodium 100 Mg Capsule, 100 MG PO BID, (Reported) Fish Oil/Dha/Epa 1,200 Mg-144 Mg-216 Mg Capsule, 1 EACH PO 1800, (Reported) Fluticasone/Vilanterol 200 Mcg-25 Mcg/Dose Blst.w.dev, 1 PUFF INH DAILY, (Reported) RINSE AND SPIT MOUTH WITH WATER AFTER EACH USE Furosemide 40 Mg Tablet, 60 MG PO DAILY, (Reported) TAKES 1 & (20MG) TABS Gabapentin 300 Mg Capsule, 300 MG PO TID, (Reported) Hydrocodone/Acetaminophen 5 Mg-325 Mg Tablet, 1 TAB PO Q6H PRN for PAIN-MODERATE (5-7), (Reported) Latanoprost 2.5 Ml Drops, 1 DROP OU HS, (Reported) Lisinopril 20 Mg Tablet, 20 MG PO DAILY Prescribed by: TRACY NAYAK on 10/12/22 135 Magnesium Hydroxide 2,400 Mg/10 Ml Oral.susp, 30 ML PO DAILY PRN for CONSTIPATION-7TH LINE, (Reported) Meropenem 1 Gram Vial, 1 GM IV Q12H Prescribed by: TRACY NAYAK on 10/12/221358 Metoprolol Succinate 50 Mg Tab.er.24h, 50 MG PO DAILY Prescribed by: TRACY NAYAK on 10/12/22 135 Potassium Chloride 20 Meq Tab.er.prt, 20 MEQ PO DAILY, (Reported) Ropinirole HCl 1 Mg Tablet, 1 MG PO HS, (Reported) Tramadol HCl 50 Mg Tablet, 50 MG PO Q12H, (Reported) Vit A/C/E/Zinc/Co 14,320-226 Capsule, 1 CAP PO DAILY, (Reported) Past Medical/Social/Family Hx Patient Social History Tobacco Use?: No Substance use?: No Alcohol Use?: No Immunizations Up To Date First/Initial COVID19 Vaccinat: UNK Second COVID19 Vaccination Ronald: UNK Tetanus Booster (TDap): Unknown Hepatitis A: Yes Hepatitis B: Yes TB Skin Test: None Date of Pneumonia Vaccine: Oct 30, 2016 Current Status Primary Language: Turkmen Preferred Spoken Language: Turkmen Review of Systems Constitutional: see HPI Focused Exam Lactate Level 11/07/22 08:40: Lactic Acid Level 3.11*H 11/07/22 10:50: Lactic Acid Level 1.78 Height, Weight, BMI Height: 5'4.00" Weight: 182lbs. 0.6oz. 77.702649cr; 19.00 BMI Method:Stated Exam Exam Patient acknowledged, consented, and participated in this virtual visit which wa s conducted using real time audio/video Vital Signs Date Time Temp Pulse Resp B/P (MAP) Pulse Ox O2 Delivery O2 Flow Rate FiO2 11/07/22 13:45 37.3 73 14 131/59 (83) 94 OxyMask 8.00 11/07/22 13:30 71 140/72 95 Room Air 11/07/22 12:30 37.1 77 131/75 95 OxyMask 8.00 11/07/22 12:16 37.0 71 124/77 OxyMask 8.00 11/07/22 11:57 37.2 71 115/58 95 8.00 11/07/22 11:40 37.1 61 115/53 94 OxyMask 8.00 11/07/22 11:25 37.1 64 22 110/62 95 OxyMask 8.00 11/07/22 11:20 37.1 69 118/65 94 OxyMask 8.00 11/07/22 11:15 37.0 60 126/53 95 OxyMask 8.00 11/07/22 11:10 37.0 65 20 127/78 93 OxyMask 8.00 11/07/22 08:57 95 Nasal Cannula 5.00 11/07/22 08:40 Nasal Cannula 8.00 11/07/22 08:40 75 26 120/37 (64) 94 Nasal Cannula 5.00 11/07/22 08:40 94 Nasal Cannula 5.00 Height & Weight Height: 5'4.00" Weight: 182lbs. 0.6oz. 77.018770oq; 19.00 BMI Method:Stated General Appearance: No Apparent Distress Capillary Refill: Less Than 3 Seconds Results Lab Laboratory Tests 11/07/22 08:40 Assessment/Plan Assessment/Plan 1 EHSAN FULTON MD Nov 07, 2022 15:07
[2022-11-07 15:22] LABS: HEMOGLOBIN 7.8 g/dL (11.5-16.0)
[2022-11-07] MEDS ORDERED: RT-ALBUTEROL SULF 2.5 MG/3 ML PRE-MIX VIAL INH PRN (15:45)
[2022-11-07] MEDS ORDERED: RT-IPRATROPIUM (ATROVENT) 0.5MG/2.5ML AMP IH PRN (15:45)
[2022-11-07] MEDS ORDERED: RT-IPRATROPIUM (ATROVENT) 0.5MG/2.5ML AMP IH SCH (18:00)
[2022-11-07] MEDS ORDERED: RT-ALBUTEROL SULF 2.5 MG/3 ML PRE-MIX VIAL INH SCH (18:00)
--- NOTE | 2022-11-07 18:29 | History & Physical-Hospitalist ---
History of Present Illness HPI/Chief Complaint Citlaly Salazar is an 82 year old female with advanced dementia who presented from [facility] with shortness of breath. She is unable to provide any history due to her severe dementia. She was reportedly hypoxic with oxygen saturations in the 60s. Dr. Black reports [facility]. She spoke with patient's son about hospice and comfort care but he would like to have her admitted to try to get her back to her baseline. Source: RN/MD Exam Limitations: no limitations Date Seen 11/07/22 Time Seen by a Provider: 17:30 Attending Physician Jason Boudreaux MD PCP Admitting Physician: Marco A Cárdenas MD Attending Physician: Marco A Cárdenas MD Referring Physician Date of Admission Nov 07, 2022 at 13:41 Home Medications & Allergies Home Medications Reviewed patient Home Medication Reconciliation performed by pharmacy medication reconciliations industrial ecology technician and/or nursing. Patients Allergies have been reviewed. Allergies Allergies Coded Allergies doxycycline (Unverified Allergy, Mild, 11/26/17) Past Doatljl-Wvcrko-Yxajpc Hx Patient Social History Tobacco Use?: No Substance use?: No Alcohol Use?: No Immunizations Up To Date Date of Influenza Vaccine: Oct 08, 2022 First/Initial COVID19 Vaccinat: UNK Second COVID19 Vaccination Ronald: UNK Tetanus Booster (TDap): Unknown Hepatitis A: Yes Hepatitis B: Yes Date of Pneumonia Vaccine: Oct 30, 2016 Seasonal Allergies Seasonal Allergies: Yes Current Status Primary Language: Mohawk Preferred Spoken Language: Mohawk Past Medical History Surgeries: Section, Pacemaker, Tonsillectomy Asthma, Sleep Apnea, COPD Currently Using CPAP: No Atrial Fibrillation, High Cholesterol, Hypertension, Valvular Heart Disease Dementia, Stroke Sexually Transmitted Disease: No HIV/AIDS: No Renal Failure Gastroesophageal Reflux, Chronic Constipation Arthritis, Chronic Back Pain Glaucoma Loss of Vision: Bilateral Hearing Impairment: Hard of Hearing Anxiety, Depression Blood Disorders: No Adverse Reaction/Blood Tranf: No (N/A) Family Medical History Heart Disease, COPD, Renal Disease, Other Conditions/Hx Review of Systems ROS-Unable to Obtain: advanced dementia Constitutional: see HPI Physical Exam Physical Exam Vital Signs Vital Signs - First Documented 11/07/22 11/07/22 11:10 20:12 Temp 37.0 FiO2 97 Capillary Refill : Less Than 3 Seconds Height, Weight, BMI Height: 5'4.00" Weight: 182lbs. 0.6oz. 77.637792fi; 19.00 BMI Method:Stated General Appearance: Chronically ill, Mild Distress (asks me not to leave repeatedly) HEENT: PERRL/EOMI, Pharynx Normal Respiratory: No Respiratory Distress, Decreased Breath Sounds Cardiovascular: Regular Rate, Rhythm, No Edema Gastrointestinal: Normal Bowel Sounds, Soft Extremity: Normal Inspection, No Pedal Edema Neurologic/Psychiatric: Alert, Disoriented Skin: Normal Color, Warm/Dry Results Results/Procedures Labs Laboratory Tests 11/07/22 08:40 11/07/22 15:05 11/08/22 04:33 Patient resulted labs reviewed. Imaging: Reviewed Imaging Report Assessment/Plan Admission Diagnosis Acute respiratory failure due to COVID-19 Admission Status: Inpatient Order (span 2 midnights) Reason for Inpatient Admission: Respiratory failure Assessment and Plan Acute respiratory failure due to COVID-19 COVID+ 11/07 CXR without acute abnormalities, unchanged from prior Started on Decadron High flow nasal cannula 8L MAT protocol TeleICU consulted Lactic acidosis ELAINE IV fluids Advanced dementia Poor prognosis residential resident, VCV Palliative care consulted HTN AFib HFpEF History of CVA Continue home meds as able Critical Care Critically Ill Patient Diagnosis/Problems Diagnosis/Problems (1) Acute respiratory failure due to COVID-19 Status: Acute (2) Advanced dementia Status: Acute (3) ELAINE (acute kidney injury) Status: Acute (4) Atrial fibrillation Status: Chronic Qualifiers: Atrial fibrillation type: permanent Qualified Codes: I48.21 - Permanent atrial fibrillation (5) History of cerebrovascular accident with residual deficit Status: Chronic (6) Chronic heart failure with preserved ejection fraction (HFpEF) Status: Chronic MARCO A CÁRDENAS MD Nov 07, 2022 18:29
[2022-11-07] MEDS ORDERED: RT-ALBUTEROL HFA 8.5 GM INHALER IH PRN (19:45)
[2022-11-07] MEDS: DOCUSATE SODIUM 100 MG (COLACE) CAP PO SCH (20:27)
[2022-11-07] MEDS: SENNOSIDES 8.6 MG (SENOKOT) TAB PO SCH (20:27)
[2022-11-07] MEDS: RT-ALBUTEROL HFA 8.5 GM INHALER IH SCH (22:42)
[2022-11-08] MEDS: RT-ALBUTEROL HFA 8.5 GM INHALER IH SCH ×6 (03:43→21:47)
[2022-11-08 04:53] LABS: BASOPHILS % (AUTO) 0 % (0-10); EOSINOPHILS % (AUTO) 0 % (0-10); HEMATOCRIT 24 % (35-52); HEMOGLOBIN 7.4 g/dL (11.5-16.0); LYMPHOCYTES # (AUTO) 1.2 10^3/uL (1.0-4.0); LYMPHOCYTES % (AUTO) 16 % (12-44); MEAN CORPUSCULAR HEMOGLOBIN 24 pg (25-34); MEAN CORPUSCULAR HGB CONC 31 g/dL (32-36); MEAN CORPUSCULAR VOLUME 79 fL (80-99); MEAN PLATELET VOLUME 10.6 fL (9.0-12.2); MONOCYTES % (AUTO) 13 % (0-12); NEUTROPHILS # (AUTO) 5.5 10^3/uL (1.8-7.8); NEUTROPHILS % (AUTO) 71 % (42-75); PLATELET COUNT 391 10^3/uL (130-400); WHITE BLOOD COUNT 7.8 10^3/uL (4.3-11.0)
[2022-11-08 05:03] LABS: POTASSIUM 3.9 MMOL/L (3.6-5.0)
[2022-11-08 05:04] LABS: CALCIUM 8.8 MG/DL (8.5-10.1)
[2022-11-08 05:08] LABS: CREATININE SERUM 0.79 MG/DL (0.60-1.30)
[2022-11-08] MEDS: MAGNESIUM 1 GM/100 ML IVPB 100 ML IV SCH (05:27)
[2022-11-08] MEDS: POTASSIUM CL 10MEQ/50ML IVPB 50 ML IV SCH ×3 (05:27→08:57)
[2022-11-08] MEDS: KCL 20 MEQ TAB (K-DUR) PO SCH (05:28)
[2022-11-08] MEDS: SENNOSIDES 8.6 MG (SENOKOT) TAB PO SCH ×2 (08:57→20:12)
[2022-11-08] MEDS: DOCUSATE SODIUM 100 MG (COLACE) CAP PO SCH ×2 (08:57→20:12)
[2022-11-08] MEDS: APIXABAN 5 MG (ELIQUIS) TABLET PO SCH ×2 (10:56→20:12)
[2022-11-08] MEDS ORDERED: AMLO-250 PO (11:34)
[2022-11-08] MEDS ORDERED: ASPI-999 PO (11:34)
[2022-11-08] MEDS ORDERED: MENT118G TP ×2 (11:34)
[2022-11-08] MEDS ORDERED: LISI20TA26 PO (11:34)
[2022-11-08] MEDS ORDERED: METO50TA7 PO (11:34)
--- NOTE | 2022-11-08 11:57 | Progress Note - Hospitalist ---
Subjective HPI/CC On Admission Date Seen by Provider: Nov 08, 2022 Time Seen by Provider: 10:00 Citlaly Salazar is an 82 year old female with advanced dementia who presented from [facility] with shortness of breath. She is unable to provide any history due to her severe dementia. She was reportedly hypoxic with oxygen saturations in the 60s. Dr. Black reports patient is DNR/DNI at [facility]. She spoke with patient's son about hospice and comfort care but he would like to have her admitted to try to get her back to her baseline. Subjective/Events-last exam She is laying in bed. She denies pain. She reports no complaints. She asks me not to leave. Focused Exam Lactate Level 11/07/22 08:40: Lactic Acid Level 3.11*H 11/07/22 10:50: Lactic Acid Level 1.78 Objective Exam Vital Signs Vital Signs Date Time Temp Pulse Resp B/P (MAP) Pulse Ox O2 Delivery O2 Flow Rate FiO2 11/08/22 11:36 36.2 11/08/22 11:08 95 Nasal Cannula 2.00 11/08/22 10:00 84 159/98 (118) 11/08/22 09:00 92 11/08/22 09:00 17 Capillary Refill : Less Than 3 Seconds General Appearance: Anxious, Chronically ill, Mild Distress (anxious) Respiratory: No Respiratory Distress, Decreased Breath Sounds Cardiovascular: Regular Rate, Rhythm, Systolic Murmur Gastrointestinal: Normal Bowel Sounds, Soft Extremity: Normal Inspection, No Pedal Edema Neurologic/Psychiatric: Alert, Disoriented Skin: Normal Color, Warm/Dry Results/Procedures Lab Laboratory Tests 11/07/22 15:05 11/08/22 04:33 Patient resulted labs reviewed. Imaging: Reviewed Imaging Report Assessment/Plan Assessment and Plan Assess & Plan/Chief Complaint Acute respiratory failure due to COVID-19 COVID+ 11/07 CXR without acute abnormalities, unchanged from prior Continue Decadron Oxygen requirement improving, nasal cannula 3 L MAT protocol Transfer to medical floor Advanced dementia Poor prognosis Dementia likely to progress with acute COVID infection correction resident, VCV Palliative care following HTN AFib HFpEF History of CVA Continue home meds as able Lactic acidosis, resolved ELAINE, resolved Diagnosis/Problems Diagnosis/Problems (1) Acute respiratory failure due to COVID-19 Status: Acute (2) Advanced dementia Status: Acute (3) ELAINE (acute kidney injury) Status: Resolved Resolution Date/Time: 11/08/22 @ 11:57 (4) Atrial fibrillation Status: Chronic Qualifiers: Atrial fibrillation type: permanent Qualified Codes: I48.21 - Permanent atrial fibrillation (5) History of cerebrovascular accident with residual deficit Status: Chronic (6) Chronic heart failure with preserved ejection fraction (HFpEF) Status: Chronic MARCO A CÁRDENAS MD Nov 08, 2022 11:57
--- NOTE | 2022-11-08 12:30 | Tele-ICU Progress Note ---
Subjective Date Seen by a Provider: Nov 08, 2022 Time Seen by a Provider: 12:30 Subjective/Events-last exam (Tele-ICU Physician , Progress Note ) Service provided via interactive audio and video telecommunications E-CARE system to a patient admitted to ICU bed in [facility]. Patient is seen today due to persistent need of ICU care Available chart/ vitals / labs / Images reviewed Video assessment done using teleICU camera, rest of exam as per RN Discussed with RN Events overnight : Afebrile hemodynamically stable Respiratory - I/O = Drips: Pressors- no Consultants: Hospital course: (11/07) 82F admitted with CHF, +COVID, hypoxic respiratory failure 11/08- 2 L NS , vital stable A/P Covid + / viral pneumonitis - Steroids started - 2 L Acute on chronic respiratory failure with hypoxia due to Covid - NC 8 l now -- 2 L Mild troponin elevation and BNP -due to above COPD, cronic resp failure - nebs -IV steroids for covid Anemia - no obvious sign of bleeding - 1 u prbc 11/07 - hb 7.4 with ! 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 Biatrial enlargement, mod to severe. Mild to mod MAC. Mild MR. Mod . Mild AI mod - severe aortic stenosis - monitor , as per cads note prior - -not a candidate for any intervvention - off IVF Pulm HTN , -Echo on 10/09/22: PASP 70-75 mmHg - off IVF Advanced dementia - at risk for aspiration Effusion , plural R> L - monitor , not sign changed Lines : periph , (Central Line Necessity Reviewed) Chavis: + OG: Nutrition: po Analgesia: Anxiety/ delirium VTE Prophylaxis:eliquis Stress Ulcer Prophylaxis: na Plans in collaboration with bedside consultants and IM MDs. Discussed with RN to reach out if any questions or concerns A total of 20 minutes of critical care time was devoted to this patient today, required to treat and/or prevent further deterioration of critical care con dition ( as above ) . I am remotely monitoring this patient from another state. I am unable to do the bedside exam, and history/physical and pertinent information is taken from other notes in the computer and bedside staff. . Sepsis Event Evaluation Height, Weight, BMI Height: 5'4.00" Weight: 182lbs. 0.6oz. 77.492834ty; 24.16 BMI Method:Stated Focused Exam Lactate Level 11/07/22 08:40: Lactic Acid Level 3.11*H 11/07/22 10:50: Lactic Acid Level 1.78 Exam Exam Patient acknowledged, consented, and participated in this virtual visit which was conducted using real time audio/video Vital Signs Date Time Temp Pulse Resp B/P (MAP) Pulse Ox O2 Delivery O2 Flow Rate FiO2 11/08/22 12:00 92 33 134/110 (118) 89 High Flow N/C 3.00 11/08/22 11:36 36.2 11/08/22 11:08 95 Nasal Cannula 2.00 11/08/22 10:00 84 159/98 (118) 90 High Flow N/C 3.00 11/08/22 09:00 High Flow N/C 2.00 92 11/08/22 09:00 71 17 159/87 (133) 93 High Flow N/C 3.00 11/08/22 08:00 70 30 141/76 (98) 95 High Flow N/C 3.00 11/08/22 07:39 Nasal Cannula 2.00 11/08/22 07:37 97 Nasal Cannula 3.00 11/08/22 07:00 62 11/08/22 07:00 64 29 140/77 (104) 96 High Flow N/C 3.00 11/08/22 06:00 90 161/88 (130) High Flow N/C 3.00 11/08/22 05:00 67 26 145/71 (103) 98 High Flow N/C 3.00 11/08/22 04:10 78 26 151/76 (108) 93 High Flow N/C 3.00 11/08/22 04:00 High Flow N/C 3.00 94 11/08/22 04:00 36.1 11/08/22 04:00 70 33 130/105 (113) 90 High Flow N/C 3.00 11/08/22 03:00 73 20 149/99 (122) 87 High Flow N/C 3.00 11/08/22 02:00 70 23 138/95 (102) 96 High Flow N/C 3.00 11/08/22 01:00 67 22 153/74 (121) 96 High Flow N/C 3.00 11/08/22 01:00 67 11/08/22 00:00 High Flow N/C 3.00 94 11/08/22 00:00 36.1 11/08/22 00:00 61 27 143/98 (109) 87 High Flow N/C 3.00 11/07/22 23:00 62 24 145/80 (108) 97 High Flow N/C 3.00 11/07/22 22:43 100 Nasal Cannula 3.00 11/07/22 22:00 62 18 128/72 (116) 88 High Flow N/C 3.00 11/07/22 21:00 60 29 141/72 (98) 96 High Flow N/C 3.00 11/07/22 20:12 High Flow N/C 3.00 97 11/07/22 20:09 35.9 97 High Flow N/C 3.00 11/07/22 20:00 63 35 123/102 (110) 97 OxyMask 8.00 11/07/22 19:32 37.3 64 98 11/07/22 19:00 65 30 133/65 (85) 92 OxyMask 8.00 11/07/22 19:00 65 11/07/22 18:00 64 9 101/62 (75) 98 OxyMask 8.00 11/07/22 17:00 71 30 128/62 (84) 90 OxyMask 8.00 11/07/22 16:00 65 16 126/59 (81) 94 OxyMask 8.00 11/07/22 16:00 High Flow N/C 8.00 11/07/22 15:36 37.3 73 94 11/07/22 15:00 65 20 116/70 (85) 88 OxyMask 8.00 11/07/22 14:30 72 30 112/51 (71) 90 OxyMask 8.00 11/07/22 14:15 70 20 114/61 (78) 98 OxyMask 8.00 11/07/22 14:00 70 30 131/59 (83) 95 OxyMask 8.00 11/07/22 14:00 High Flow N/C 8.00 11/07/22 13:45 37.3 73 14 131/59 (83) 94 OxyMask 8.00 11/07/22 13:30 71 140/72 95 Room Air I & O 11/08/22 06:59 Intake Total 1040 ml Output Total 425 ml Balance 615 ml Height & Weight Height: 5'4.00" Weight: 182lbs. 0.6oz. 77.012339kd; 24.16 BMI Method:Stated General Appearance: Anxious, Chronically ill, Mild Distress (anxious) HEENT: PERRL/EOMI, Pharynx Normal Respiratory: No Respiratory Distress, Decreased Breath Sounds Cardiovascular: Regular Rate, Rhythm, Systolic Murmur Capillary Refill: Less Than 3 Seconds Extremity: Normal Inspection, No Pedal Edema Neurologic/Psychiatric: Alert, Disoriented Skin: Normal Color, Warm/Dry Results Lab Laboratory Tests 11/07/22 08:40 11/07/22 15:05 11/08/22 04:33 Assessment/Plan Assessment/Plan 1 EHSAN FULTON MD Nov 08, 2022 12:30
[2022-11-08 20:27] VITALS: BP 161/74
[2022-11-08 22:35] VITALS: BP 157/88
[2022-11-08 23:26] VITALS: BP_SYST 140; BP_SYST 151; BP_DIAS 69; BP_DIAS 82
[2022-11-08] MEDS: ALPRAZolam 0.25 MG (XANAX) TAB PO SCH (23:30)
[2022-11-09] MEDS: RT-ALBUTEROL HFA 8.5 GM INHALER IH SCH ×6 (02:56→22:01)
[2022-11-09 04:15] VITALS: BP 147/76
[2022-11-09 05:54] LABS: BASOPHILS % (AUTO) 0 % (0-10); EOSINOPHILS % (AUTO) 0 % (0-10); HEMATOCRIT 25 % (35-52); HEMOGLOBIN 7.7 g/dL (11.5-16.0); LYMPHOCYTES # (AUTO) 0.9 10^3/uL (1.0-4.0); LYMPHOCYTES % (AUTO) 8 % (12-44); MEAN CORPUSCULAR HEMOGLOBIN 24 pg (25-34); MEAN CORPUSCULAR HGB CONC 31 g/dL (32-36); MEAN CORPUSCULAR VOLUME 79 fL (80-99); MEAN PLATELET VOLUME 10.4 fL (9.0-12.2); MONOCYTES % (AUTO) 10 % (0-12); NEUTROPHILS # (AUTO) 8.3 10^3/uL (1.8-7.8); NEUTROPHILS % (AUTO) 81 % (42-75); PLATELET COUNT 365 10^3/uL (130-400); WHITE BLOOD COUNT 10.2 10^3/uL (4.3-11.0)
[2022-11-09] MEDS: MAGNESIUM 1 GM/100 ML IVPB 100 ML IV SCH (06:00)
[2022-11-09] MEDS: KCL 20 MEQ TAB (K-DUR) PO SCH (06:00)
[2022-11-09] MEDS: POTASSIUM CL 10MEQ/50ML IVPB 50 ML IV SCH (06:00)
[2022-11-09 06:07] LABS: POTASSIUM 3.9 MMOL/L (3.6-5.0)
[2022-11-09 06:08] LABS: CALCIUM 8.7 MG/DL (8.5-10.1)
[2022-11-09 06:12] LABS: CREATININE SERUM 0.73 MG/DL (0.60-1.30)
[2022-11-09] MEDS ORDERED: KCL 20 MEQ TAB (K-DUR) PO ONE (06:15)
[2022-11-09] MEDS: SENNOSIDES 8.6 MG (SENOKOT) TAB PO SCH ×2 (08:04→20:22)
[2022-11-09] MEDS: APIXABAN 5 MG (ELIQUIS) TABLET PO SCH ×2 (08:04→21:14)
[2022-11-09] MEDS: DOCUSATE SODIUM 100 MG (COLACE) CAP PO SCH ×2 (08:04→20:22)
[2022-11-09 08:42] VITALS: BP 144/70
--- NOTE | 2022-11-09 11:28 | Progress Note - Hospitalist ---
Subjective HPI/CC On Admission Date Seen by Provider: Nov 09, 2022 Time Seen by Provider: 10:30 Citlaly Salazar is an 82 year old female with advanced dementia who presented from [facility] with shortness of breath. She is unable to provide any history due to her severe dementia. She was reportedly hypoxic with oxygen saturations in the 60s. Dr. Black reports patient is DNR/DNI at [facility]. She spoke with patient's son about hospice and comfort care but he would like to have her admitted to try to get her back to her baseline. Subjective/Events-last exam She remains stable. She nods her head that she feels ok. She does not express any complaints and appears comfortable. Focused Exam Lactate Level 11/07/22 08:40: Lactic Acid Level 3.11*H 11/07/22 10:50: Lactic Acid Level 1.78 Objective Exam Vital Signs Vital Signs Date Time Temp Pulse Resp B/P (MAP) Pulse Ox O2 Delivery O2 Flow Rate FiO2 11/09/22 10:47 94 Nasal Cannula 3.00 11/09/22 08:42 37.2 79 18 144/70 (94) 11/08/22 12:00 94 Capillary Refill : Less Than 3 Seconds General Appearance: No Apparent Distress, Chronically ill Respiratory: No Respiratory Distress, Decreased Breath Sounds Cardiovascular: Regular Rate, Rhythm, Systolic Murmur Gastrointestinal: Normal Bowel Sounds, Soft Extremity: Normal Inspection, No Pedal Edema Neurologic/Psychiatric: Alert, Depressed Affect, Disoriented Skin: Normal Color, Warm/Dry Results/Procedures Lab Laboratory Tests 11/09/22 05:35 Patient resulted labs reviewed. Imaging: Reviewed Imaging Report Assessment/Plan Assessment and Plan Assess & Plan/Chief Complaint Acute respiratory failure due to COVID-19 COVID+ 11/07 Continue Decadron Oxygen requirement stable, nasal cannula 3 L MAT protocol [facility]ely discharge back to [facility] tomorrow Advanced dementia Poor prognosis Dementia likely to progress with acute COVID infection jail resident, [facility] Palliative care following HTN AFib HFpEF History of CVA Continue home meds as able Lactic acidosis, resolved ELAINE, resolved Diagnosis/Problems Diagnosis/Problems (1) Acute respiratory failure due to COVID-19 Status: Acute (2) Advanced dementia Status: Acute (3) ELAINE (acute kidney injury) Status: Resolved Resolution Date/Time: 11/08/22 @ 11:57 (4) Atrial fibrillation Status: Chronic Qualifiers: Atrial fibrillation type: permanent Qualified Codes: I48.21 - Permanent atrial fibrillation (5) History of cerebrovascular accident with residual deficit Status: Chronic (6) Chronic heart failure with preserved ejection fraction (HFpEF) Status: Chronic MARCO A CÁRDENAS MD Nov 09, 2022 11:28
[2022-11-09 11:55] VITALS: BP 155/85
[2022-11-09 16:32] VITALS: BP 161/76
[2022-11-09 20:14] VITALS: BP 146/71
[2022-11-09] MEDS: ALPRAZolam 0.25 MG (XANAX) TAB PO SCH (21:14)
[2022-11-09 23:58] VITALS: BP 145/67
[2022-11-10] MEDS: RT-ALBUTEROL HFA 8.5 GM INHALER IH SCH ×2 (03:33→07:07)
[2022-11-10 03:51] VITALS: BP 157/72
[2022-11-10] MEDS ORDERED: dexAMETHasone 6 MG TAB (DECADRON) PO SCH (07:00)
[2022-11-10 07:54] VITALS: BP 154/65
[2022-11-10] MEDS: SENNOSIDES 8.6 MG (SENOKOT) TAB PO SCH (08:45)
[2022-11-10] MEDS: APIXABAN 5 MG (ELIQUIS) TABLET PO SCH (08:45)
[2022-11-10] MEDS: DOCUSATE SODIUM 100 MG (COLACE) CAP PO SCH (08:46)
[2022-11-10 10:13] VITALS: BP 154/65
[2022-11-10 11:30] VITALS: BP 173/86
[2022-11-10] MEDS ORDERED: DEXA6TAB PO (12:14)
--- NOTE | 2022-11-10 12:16 | Discharge Summary ---
Discharge Summary Reconcile Patient Problems Problems Reviewed?: Yes Hospital Course Hospital Course Date of Admission: Nov 07, 2022 at 13:41 Admission Diagnosis : Acute respiratory failure due to COVID-19 Family Physician/Provider: Jason Boudreaux MD Date of Discharge: 11/10/22 Discharge Diagnosis: Acute respiratory failure due to COVID-19 Hospital Course: Citlaly Salazar is an 82 year old female with advanced dementia who was admitted with acute respiratory failure due to COVID-19. She was requiring supplemental oxygen on arrival, up to 8 L. She was admitted to the ICU. She was started on Decadron. Her oxygen requirement improved. She was transferred to the medical floor. She remained stable. She was given a short course of steroids. She was discharged back to [facility] in stable, improved condition. Labs and Pending Lab Test: Microbiology 11/07/22 Blood Culture - Preliminary, Resulted No growth Home Meds Active Dexamethasone 6 Mg Tablet 6 Mg PO DAILY 2 Days Reported Biofreeze (Menthol) 4 % Gel..ml. 1 Applic TP DAILY PRN MAY USE FOR PAIN DURING THERAPY SESSION Biofreeze (Menthol) 4 % Gel..ml. 1 Applic TP TID APPLY TO KNEES Amlodipine Besylate 5 Mg Tablet 10 Mg PO DAILY TAKES 2 (5MG) TABS HOLD FOR SBP<100 OR HR<60 Metoprolol Succinate 50 Mg Tab.er.24h 50 Mg PO DAILY Aspirin 81 Mg Tab.chew 81 Mg PO DAILY Lisinopril 20 Mg Tablet 20 Mg PO DAILY HOLD FOR SBP LESS THAN 100 AND DBP LESS THAN 60 Docusate Sodium 100 Mg Capsule 100 Mg PO BID Milk of Magnesia (Magnesium Hydroxide) 2,400 Mg/10 Ml Oral.susp 30 Ml PO DAILY PRN Breo Ellipta 200-25 Mcg INH (Fluticasone/Vilanterol) 200 Mcg-25 Mcg/Dose Blst.w.dev 1 Puff INH DAILY RINSE AND SPIT MOUTH WITH WATER AFTER EACH USE Vitamin C (Ascorbate Calcium) 500 Mg Tablet 500 Mg PO BID Xanax (Alprazolam) 0.25 Mg Tablet 0.25 Mg PO HS Tramadol HCl 50 Mg Tablet 50 Mg PO Q12H PRN Neurontin (Gabapentin) 300 Mg Capsule 300 Mg PO TID Hydrocodone-Acetamin 5-325 mg (Hydrocodone/Acetaminophen) 5 Mg-325 Mg Tablet 1 Tab PO Q6H PRN Preservision Areds Softgel (Vit A/C/E/Zinc/Co) 14,418-360 Capsule 1 Cap PO DAILY Vitamin D3 (Cholecalciferol (Vitamin D3)) 25 Mcg (1000 Unit) Capsule 25 Mcg PO DAILY Proventil Hfa (Albuterol Sulfate) 6.7 Gm Hfa.aer.ad 2 Puff INH Q6H PRN Furosemide 40 Mg Tablet 60 Mg PO DAILY TAKES 1 & (20MG) TABS Potassium Chloride 20 Meq Tab.er.prt 20 Meq PO DAILY Eliquis (Apixaban) 5 Mg Tablet 5 Mg PO Q12H Citalopram HBr (Citalopram Hydrobromide) 10 Mg Tablet 10 Mg PO HS Xalatan (Latanoprost) 2.5 Ml Drops 1 Drop OU HS Amitriptyline HCl 25 Mg Tablet 25 Mg PO HS Ropinirole HCl 1 Mg Tablet 1 Mg PO HS Instructions to Patient/Family Assessment/Instructions Take medications as prescribed. Follow up with your PCP. Return with worsening shortness of breath, pain, or if you feel like you are getting worse. Follow Up Appt.: next halfway rounds Skilled NF Admit to: [facility] Certification ([facility]) I certify that SNF services are required to be given on an inpatient basis because of the above named patient's need for fpc care on a continuing basis for the conditions(s) for which he/she was receiving inpatient hospital services prior to his/her transfer to the SNF. Correction Facility Order: Nursing Services, Administrative Appeals Tribunal Member-Evaluate & Treat, Physical Therapy-Evaluate & Treat Oxygen Delivery Method: Nasal Cannula Discharge Diet: Semi-Solid Diet Daily Activity as Tolerated: Yes Resuscitation Status: Do Not Resuscitate Marco A Cárdenas Nov 10, 2022 12:15 Discharge Physical Exam General: Alert, Other (disoriented) HEENT: EOMI, Mucous Memb Moist/[place] Lungs: Other (decreased breath sounds, no respiratory distress) Heart: Regular Rate, Other (systolic murmur) Abdomen: Normal Bowel Sounds, Soft Extremities: No Edema, No Tenderness/Swelling Skin: No Rashes, No Significant Lesion MARCO A CÁRDENAS MD Nov 10, 2022 12:16
[2022-11-10 14:03] VITALS: BP 173/86
[2022-11-10] MEDS ORDERED: RT-ALBUTEROL HFA 8.5 GM INHALER IH SCH (18:00)
== END 2022-11-10 13:46 | DRG 177 ==
LOC: EDUNIT# 08:36 → ER 08:38 → ICU 13:41 → 4TH 11-08 16:40
PROVIDERS: ADMIT Internal Medicine; ATTEND Internal Medicine
PROC: 8E0ZXY6 Isolation (ICD-10-PCS; principal; 2022-11-07)
PROC: 5A0945A Assistance with Respiratory Ventilation, 24-96 Consecutive Hours, High Flow/Velocity Cannula (ICD-10-PCS; 2022-11-07)
DX: U07.1 COVID-19 (principal); J12.82 Pneumonia due to coronavirus disease 2019; J96.21 Acute and chronic respiratory failure with hypoxia; J96.22 Acute and chronic respiratory failure with hypercapnia; I50.32 Chronic diastolic (congestive) heart failure; E87.20 Acidosis, unspecified; N17.9 Acute kidney failure, unspecified; Z79.82 Long term (current) use of aspirin; Z79.899 Other long term (current) drug therapy; J44.9 Chronic obstructive pulmonary disease, unspecified; Z95.0 Presence of cardiac pacemaker; E78.00 Pure hypercholesterolemia, unspecified; I11.0 Hypertensive heart disease with heart failure; G25.81 Restless legs syndrome; F03.90 Unspecified dementia, unspecified severity, without behavioral disturbance, psychotic disturbance, mood disturbance, and anxiety; Z86.73 Personal history of transient ischemic attack (TIA), and cerebral infarction without residual deficits; K21.9 Gastro-esophageal reflux disease without esophagitis; M19.90 Unspecified osteoarthritis, unspecified site; G89.29 Other chronic pain; M54.9 Dorsalgia, unspecified; H40.9 Unspecified glaucoma; F41.9 Anxiety disorder, unspecified; F32.A Depression, unspecified; Z66 Do not resuscitate; D64.9 Anemia, unspecified; I35.0 Nonrheumatic aortic (valve) stenosis; I27.20 Pulmonary hypertension, unspecified; I48.91 Unspecified atrial fibrillation; Z79.01 Long term (current) use of anticoagulants
CPT/HCPCS: 36415; 36600; 51702; 71045; 80048; 80053; 81000; 82550; 82553; 82728; 82805; 83540; 83550; 83605; 83735; 83874; 83880; 84484; 85007; 85014; 85018; 85025; 85027; 85610; 85652; 85730; 86141; 86850; 86900; 86901; 86920; 87040; 87636; 93005; 93041; 94640

== ENCOUNTER 2022-11-28 17:00 | Inpatient (IN) | payer MEDICARE ==
[~2022-11-28] VITALS: Ht 165 cm; Wt 61.4 kg
[2022-11-28] VITALS (13 sets, daily range): BP systolic 66–170; BP diastolic 31–91
[~2022-11-28 17:00] MED LIST changes: +ASPI-999 PO; +DEXA6TAB PO; +MENT118G TP
[2022-11-28 18:20] LABS: BASOPHILS # (AUTO) 0.1 10^3/uL (0.0-0.1); BASOPHILS % (AUTO) 0 % (0-10); EOSINOPHILS # (AUTO) 0.5 10^3/uL (0.0-0.3); EOSINOPHILS % (AUTO) 3 % (0-10); HEMATOCRIT 27 % (35-52); HEMOGLOBIN 7.9 g/dL (11.5-16.0); LYMPHOCYTES # (AUTO) 1.8 10^3/uL (1.0-4.0); LYMPHOCYTES % (AUTO) 12 % (12-44); MEAN CORPUSCULAR HEMOGLOBIN 23 pg (25-34); MEAN CORPUSCULAR HGB CONC 30 g/dL (32-36); MEAN CORPUSCULAR VOLUME 79 fL (80-99); MEAN PLATELET VOLUME 11.1 fL (9.0-12.2); MONOCYTES # (AUTO) 0.8 10^3/uL (0.0-1.0); MONOCYTES % (AUTO) 5 % (0-12); NEUTROPHILS # (AUTO) 12.6 10^3/uL (1.8-7.8); NEUTROPHILS % (AUTO) 79 % (42-75); PLATELET COUNT 389 10^3/uL (130-400); WHITE BLOOD COUNT 15.9 10^3/uL (4.3-11.0)
[2022-11-28 18:22] LABS: ALBUMIN 3.7 GM/DL (3.2-4.5); POTASSIUM 4.2 MMOL/L (3.6-5.0)
[2022-11-28 18:24] LABS: CALCIUM 8.6 MG/DL (8.5-10.1)
[2022-11-28 18:25] LABS: TOTAL PROTEIN 6.8 GM/DL (6.4-8.2)
[2022-11-28 18:29] LABS: CREATININE SERUM 0.8 MG/DL (0.60-1.30)
--- NOTE | 2022-11-28 18:36 | Diagnostic Imaging Report ---
INDICATION: Hypoxia COMPARISON: 11/07/2022 FINDINGS: There is increased failure pattern with progressive cardiomegaly, vascular congestion, similar pleural effusions and likely increased perihilar edema, most notably in the right base. In the appropriate clinical scenario, superimposition of pneumonia could not be excluded. IMPRESSION: 1. Interval worsened failure pattern with no pneumothorax. 2. Superimposed pneumonia in the right lower lobe could not be excluded radiographically. Dictated by: Dictated on workstation # [id number]
--- NOTE | 2022-11-28 18:44 | ED Respiratory ---
General Chief Complaint: Respiratory Problems Stated Complaint: SOB Nursing Triage Note: ARRIVES TO ROOM 7 VIA EMS. FROM [facility]. THIS IS THE 2ND EPISODE OF EXTREME SOB TODAY. THE FIRST TIME WAS AROUND 0500 AND RESOLVED WITHIN 30 MINUTES. THIS TIME NH NURSE STATES SHE FOUND PATIENT O2 SATURATION AT 77% ON HER REGULAR 2 LITERS. RN STATES SHE TURNED PATIENT O2 UP TO 5 LITERS AND WAS ONLY ABLE TO REACH SATURATION OF 83% VIA SIMPLE MASK. STATES 2 PUFFS OF ALBUTEROL WERE GIVEN AT WHICH TIME SATS CARMEN TO 86% VIA SIMPLE MASK. Source: patient, old records Exam Limitations: clinical condition (KHADRA SYED) Source: EMS (JOSE KEYES MD) History of Present Illness Date Seen by Provider: Nov 28, 2022 Time Seen by Provider: 18:08 Initial Comments Mrs. Salazar is a 82 yo F with PMH of COPD, HF, dementia who presents to the ED today with complaint of difficulty breathing that began 2 days ago. She claims that she lives at home and her son Jhony helps her - in actuality she is a resident of [facility]. She says her knees & calfs hurt and gestures to her chest and abdomen when asked if anything else hurts. She says the the Bi PAP is helping her to breath better and dosen't know anything that makes it worse. When asked about fever or chills she says "I don't know". When asked about the last time she ate she says "I don't know, its been a while". Taking into account her dementia, current clinical status and BiPAP it is difficult to gather a thorough & reliable history from the Pt. at this time. Timing/Duration: week, getting worse, changing over time Severity: moderate Prior Episodes/Possible Cause: occasional episodes, chronic episodes (multiple episodes of COPD exacerbation) Modifying Factors: Worse With Activity, Worse With Lying Down; Improves With Oxygen, Improves With Other (CPAP helping some) Associated Symptoms: chest pain/soreness, cough; No fever/chills; shortness of breath (KHADRA SYED) Initial Comments Mrs. Salazar has significant dementia at baseline. She has had numerous admissions since last fall including admission for COVID November 12. (JOSE KEYES MD) Allergies and Home Medications Allergies Coded Allergies: doxycycline (Unverified Allergy, Mild, 3/5/18) Patient Home Medication List Home Medication List Reviewed: Yes (JOSE KEYES MD) Alprazolam (Xanax) 0.25 Mg Tablet, 0.25 MG PO HS, (Reported) Entered as Reported by: ABHIJEET FELIPE on 06/01/22 1114 Amitriptyline HCl (Amitriptyline HCl) 25 Mg Tablet, 25 MG PO HS, (Reported) Entered as Reported by: SREEDHAR MCMANUS on 09/26/20 1610 Amlodipine Besylate (Amlodipine Besylate) 5 Mg Tablet, 10 MG PO DAILY, (Reported) Entered as Reported by: ABHIJEET FELIPE on 11/08/22 1134 Apixaban (Eliquis) 5 Mg Tablet, 5 MG PO Q12H, (Reported) Entered as Reported by: ABHIJEET FELIPE on 02/24/21 1308 Ascorbate Calcium (Vitamin C) 500 Mg Tablet, 500 MG PO BID, (Reported) Entered as Reported by: ABHIJEET FELIPE on 06/01/22 1114 Aspirin (Aspirin) 81 Mg Tab.chew, 81 MG PO DAILY, (Reported) Entered as Reported by: ABHIJEET FELIPE on 11/08/22 1134 Cholecalciferol (Vitamin D3) (Vitamin D3) 25 Mcg (1000 Unit) Capsule, 25 MCG PO DAILY, (Reported) Entered as Reported by: ABHIJEET FELIPE on 03/28/22 1424 Citalopram Hydrobromide (Citalopram HBr) 10 Mg Tablet, 10 MG PO HS, (Reported) Entered as Reported by: ABHIJEET FELIPE on 02/24/21 1308 Docusate Sodium (Docusate Sodium) 100 Mg Capsule, 100 MG PO BID, (Reported) Entered as Reported by: ABHIJEET FELIPE on 06/01/22 1114 Fluticasone/Vilanterol (Breo Ellipta 200-25 Mcg INH) 200 Mcg-25 Mcg/Dose Blst.w.dev, 1 PUFF INH DAILY, (Reported) Entered as Reported by: ABHIJEET FELIPE on 06/01/22 1114 Furosemide (Furosemide) 40 Mg Tablet, 60 MG PO DAILY, (Reported) Entered as Reported by: ABHIJEET FELIPE on 03/28/22 1156 Gabapentin (Neurontin) 300 Mg Capsule, 300 MG PO TID, (Reported) Entered as Reported by: ABHIJEET FELIPE on 06/01/22 1114 Hydrocodone/Acetaminophen (Hydrocodone-Acetamin 5-325 mg) 5 Mg-325 Mg Tablet, 1 TAB PO Q6H PRN for PAIN-MODERATE (5-7), (Reported) Entered as Reported by: ABHIJEET FELIPE on 06/01/22 1114 Latanoprost (Xalatan) 2.5 Ml Drops, 1 DROP OU HS, (Reported) Entered as Reported by: ABHIJEET FELIPE on 09/28/20 0910 Lisinopril (Lisinopril) 20 Mg Tablet, 20 MG PO DAILY, (Reported) Entered as Reported by: ABHIJEET FELIPE on 11/08/22 1134 Magnesium Hydroxide (Milk of Magnesia) 2,400 Mg/10 Ml Oral.susp, 30 ML PO DAILY PRN for CONSTIPATION-7TH LINE, (Reported) Entered as Reported by: ABHIJEET FELIPE on 06/01/22 1114 Menthol (Biofreeze) 4 % Gel..ml., 1 APPLIC TP TID, (Reported) Entered as Reported by: ABHIJEET FELIPE on 11/08/22 1134 Menthol (Biofreeze) 4 % Gel..ml., 1 APPLIC TP DAILY PRN for PAIN BREAKTROUGH, (Reported) Entered as Reported by: ABHIJEET FELIPE on 11/08/22 1134 Metoprolol Succinate (Metoprolol Succinate) 50 Mg Tab.er.24h, 50 MG PO DAILY, (Reported) Entered as Reported by: ABHIJEET FELIPE on 11/08/22 1134 Potassium Chloride (Potassium Chloride) 20 Meq Tab.er.prt, 20 MEQ PO DAILY, (Reported) Entered as Reported by: ABHIJEET FELIPE on 03/28/22 1156 Ropinirole HCl (Ropinirole HCl) 1 Mg Tablet, 1 MG PO HS, (Reported) Entered as Reported by: ESTEFANÍA FIORE on 11/26/17 0843 Tramadol HCl (Tramadol HCl) 50 Mg Tablet, 50 MG PO Q12H PRN for PAIN-MODERATE (5-7), (Reported) Entered as Reported by: ABHIJEET FELIPE on 06/01/22 1114 Vit A/C/E/Zinc/Co (Preservision Areds Softgel) 14,039-253 Capsule, 1 CAP PO DAILY, (Reported) Entered as Reported by: ABHIJEET FELIPE on 03/28/22 3195 Review of Systems Review of Systems Constitutional: malaise, weakness Respiratory: cough, dyspnea on exertion, short of breath Cardiovascular: chest pain, Hx of Intervention, vascular heart diseas Gastrointestinal: abdominal pain; No nausea, No vomiting Genitourinary: incontinence Musculoskeletal: joint pain, joint swelling, muscle pain Skin: dryness Psychiatric/Neurological: Weakness Hematologic/Lymphatic: Anemia (KHADRA SYED) Past Zekgjet-Uggsrw-Vdjsgn Hx Patient Social History Tobacco Use?: No Use of E-Cig and/or Vaping dev: No Substance use?: No Alcohol Use?: No Pt feels they are or have been: No (KHADRA SYED) Immunizations Up To Date Influenza Vaccine Up-to-Date: Yes; Up-to-Date First/Initial COVID19 Vaccinat: 2020 Second COVID19 Vaccination Ronald: 2020 Third COVID19 Vaccination Date: 2020 COVID19 Vaccine Automatic Folder Seamer: PER VCV (KHADRA SYED) Seasonal Allergies Seasonal Allergies: Yes (KHADRA SYED) Past Medical History Surgery/Hospitalization HX: COPD, PACEMAKER Surgeries: Yes Section, Pacemaker, Tonsillectomy Respiratory: Yes Asthma, Sleep Apnea, COPD Currently Using CPAP: No Cardiac: Yes (CHF; LBBB) Atrial Fibrillation, High Cholesterol, Hypertension, Valvular Heart Disease Neurological: Yes (rest less leg syndrome) Dementia, Stroke Reproductive Disorders: No Sexually Transmitted Disease: No HIV/AIDS: No Genitourinary: Yes Renal Failure Gastrointestinal: Yes Gastroesophageal Reflux, Chronic Constipation Musculoskeletal: Yes (WHEELCHAIR BOUND) Arthritis, Chronic Back Pain Endocrine: No 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 0.6oz. 77.985829lp; 21.00 BMI Method:Stated General Appearance: mild distress, thin Eyes: Bilateral Eye PERRL, Bilateral Eye EOMI, Bilateral Eye Conjunctivae Pale HEENT: PERRL/EOMI, pharynx normal, pale conjunctivae (R), pale conjunctivae (L) Neck: full range of motion, supple Respiratory: respiratory distress, decreased breath sounds (RLL), wheezing, expiration, other (BiPAP in place 15 @ 50% FiO2 Sat 97%) Cardiovascular: normal peripheral pulses, systolic murmur Gastrointestinal: normal bowel sounds, distended; No guarding; tenderness, other (Palpable aorta) Extremities: normal range of motion, no pedal edema, calf tenderness Neurologic/Psychiatric: no motor/sensory deficits, alert Skin: warm/dry, pallor Lymphatic: no adenopathy (KHADRA SYED) Focused Exam Lactate Level 11/28/22 19:15: Lactic Acid Level 1.54 (JOSE KEYES MD) Lactic Acid Level Laboratory Tests Test 11/28/22 19:15 Lactic Acid Level 1.54 MMOL/L (0.50-2.00) (JOSE KEYES MD) Progress/Results/Core Measures Suspected Sepsis SIRS Temperature: Pulse: 78 Respiratory Rate: 26 Laboratory Tests 11/28/22 17:00: White Blood Count 15.9H Blood Pressure 170 /91 Mean: 117 11/28/22 19:15: Lactic Acid Level 1.54 Laboratory Tests 11/28/22 17:00: Creatinine 0.80, INR Comment 1.4, Platelet Count 389, Total Bilirubin 0.7 (KHADRA SYED) Results/Orders Lab Results Laboratory Tests Test 11/28/22 17:00 11/28/22 18:20 11/28/22 19:15 11/28/22 19:45 Range/Units White Blood Count 15.9 H 4.3-11.0 10^3/uL Red Blood Count 3.39 L 3.80-5.11 10^6/uL Hemoglobin 7.9 L 11.5-16.0 g/dL Hematocrit 27 L 35-52 % Mean Corpuscular Volume 79 L 80-99 fL Mean Corpuscular Hemoglobin 23 L 25-34 pg Mean Corpuscular Hemoglobin Concent 30 L 32-36 g/dL Red Cell Distribution Width 17.3 H 10.0-14.5 % Platelet Count 389 130-400 10^3/uL Mean Platelet Volume 11.1 9.0-12.2 fL Immature Granulocyte % (Auto) 1 % Neutrophils (%) (Auto) 79 H 42-75 % Lymphocytes (%) (Auto) 12 12-44 % Monocytes (%) (Auto) 5 0-12 % Eosinophils (%) (Auto) 3 0-10 % Basophils (%) (Auto) 0 0-10 % Neutrophils # (Auto) 12.6 H 1.8-7.8 10^3/uL Lymphocytes # (Auto) 1.8 1.0-4.0 10^3/uL Monocytes # (Auto) 0.8 0.0-1.0 10^3/uL Eosinophils # (Auto) 0.5 H 0.0-0.3 10^3/uL Basophils # (Auto) 0.1 0.0-0.1 10^3/uL Immature Granulocyte # (Auto) 0.1 0.0-0.1 10^3/uL Neutrophils % (Manual) 80 % Lymphocytes % (Manual) 11 % Monocytes % (Manual) 7 % Eosinophils % (Manual) 2 % Hypochromasia MODERATE Poikilocytosis SLIGHT Anisocytosis SLIGHT Prothrombin Time 17.5 H 12.2-14.7 SEC INR Comment 1.4 0.8-1.4 Activated Partial Thromboplast Time 36 H 24-35 SEC Sodium Level 142 135-145 MMOL/L Potassium Level 4.2 3.6-5.0 MMOL/L Chloride Level 106 98-107 MMOL/L Carbon Dioxide Level 25 21-32 MMOL/L Anion Gap 11 5-14 MMOL/L Blood Urea Nitrogen 19 H 7-18 MG/DL Creatinine 0.80 0.60-1.30 MG/DL Estimat Glomerular Filtration Rate 74 BUN/Creatinine Ratio 24 Glucose Level 224 H 70-105 MG/DL Calcium Level 8.6 8.5-10.1 MG/DL Corrected Calcium 8.8 8.5-10.1 MG/DL Total Bilirubin 0.7 0.1-1.0 MG/DL Aspartate Amino Transf (AST/SGOT) 14 5-34 U/L Alanine Aminotransferase (ALT/SGPT) 8 0-55 U/L Alkaline Phosphatase 115 40-136 U/L C-Reactive Protein High Sensitivity 5.29 H 0.00-0.50 MG/DL B-Type Natriuretic Peptide 1525.9 H <100.0 PG/ML Total Protein 6.8 6.4-8.2 GM/DL Albumin 3.7 3.2-4.5 GM/DL Influenza Type A (RT-PCR) Not Detected Not Detecte Influenza Type B (RT-PCR) Not Detected Not Detecte SARS-CoV-2 RNA (RT-PCR) Detected H Not Detecte Lactic Acid Level 1.54 0.50-2.00 MMOL/L Urine Color YELLOW Urine Clarity SL CLOUDY Urine pH 6.0 5-9 Urine Specific [place] >=1.030 1.016-1.022 Urine Protein 2+ H NEGATIVE Urine Glucose (UA) NEGATIVE NEGATIVE Urine Ketones NEGATIVE NEGATIVE Urine Nitrite POSITIVE H NEGATIVE Urine Bilirubin NEGATIVE NEGATIVE Urine Urobilinogen 1.0 < = 1.0 MG/DL Urine Leukocyte Esterase 2+ H NEGATIVE Urine RBC (Auto) 3+ H NEGATIVE Urine RBC 25-50 H /HPF Urine WBC TNTC H /HPF Urine Squamous Epithelial Cells RARE /HPF Urine Crystals NONE /LPF Urine Bacteria LARGE H /HPF Urine Casts PRESENT /LPF Urine Hyaline Casts 10-25 H /LPF Urine Mucus NEGATIVE /LPF Urine Culture Indicated CULTURE PENDING (JOSE KEYES MD) My Orders Orders - JOSE KEYES MD [facility] [place] (11/28/22 18:14) Cbc With Automated Diff (11/28/22 18:14) Comprehensive Metabolic Panel (11/28/22 18:14) Hs C Reactive Protein (11/28/22 18:14) Chest 1 View, Ap/Pa Only (11/28/22 18:14) Covid 19 Inhouse Test (11/28/22 18:14) Influenza A And B By Pcr (11/28/22 18:14) Ed Iv/Invasive Line Start (11/28/22 18:14) Manual Differential (11/28/22 17:00) Albuterol/Ipra Inhalation Soln (Duoneb I (11/28/22 18:45) Svn Small Volume Nebulizer (11/28/22 18:42) Blood Culture (11/28/22 18:44) Sputum Culture (11/28/22 18:44) Urinalysis (11/28/22 18:44) Urine Culture (11/28/22 18:44) Protime With Inr (11/28/22 18:44) Partial Thromboplastin Time (11/28/22 18:44) Vital Signs Adult Sepsis Patie Q15M (11/28/22 18:44) O2 (11/28/22 18:44) Remove Rings In Anticipation O (11/28/22 18:44) Lactic Acid Analyzer (11/28/22 18:44) Cefepime Injection (Maxipime Injection) (11/28/22 19:00) Ekg Tracing (11/28/22 19:26) Chavis Cath (11/28/22 19:26) Methylprednisolone Sod Succ (Solu-Medrol (11/28/22 19:45) Ondansetron Injection (Zofran Injectio (11/28/22 20:00) Meropenem (Merrem 1000 Mg) (11/28/22 20:30) Code/Resuscitation (11/28/22 20:22) (JOSE KEYES MD) Medications Given in ED Current Medications Medications Dose Ordered Sig/Jimi Route Start Time Stop Time Status Last Admin Dose Admin Albuterol/ Ipratropium 3 ml ONCE ONCE INH 11/28/22 18:45 11/28/22 18:46 DC 11/28/22 19:17 3 ML Cefepime HCl 2000 mg/Sodium Chloride 50 ml @ 100 mls/hr ONCE ONCE IV 11/28/22 19:00 11/28/22 19:29 DC 11/28/22 19:35 100 MLS/HR Meropenem 1000 mg/ Sodium Chloride 100 ml @ 200 mls/hr ONCE ONCE IV 11/28/22 20:30 11/28/22 20:59 DC 11/28/22 20:50 200 MLS/HR Methylprednisolone Sodium Succinate 125 mg ONCE ONCE IVP 11/28/22 19:45 11/28/22 19:46 DC 11/28/22 20:01 125 MG Ondansetron HCl 4 mg ONCE ONCE IVP 11/28/22 20:00 11/28/22 20:01 DC 11/28/22 20:01 4 MG (JOSE KEYES MD) Vital Signs/I&O 11/28/22 11/28/22 11/28/22 11/28/22 17:00 17:00 17:15 19:17 Temp 36.7 Pulse 85 78 67 Resp 40 26 30 B/P (MAP) 170/91 (117) Pulse Ox 96 100 97 O2 Delivery Non Rebreather Non Rebreather O2 Flow Rate 10.00 10.00 80.00 50.00 11/29/22 00:00 Intake Total 50 ml Balance 50 ml (JOSE KEYES MD) Vital Signs/I&O Capillary Refill : (KHADRA SYED) Blood Pressure Mean: 117 Progress Note : Time: 18:39 Progress Note Interval CXR suggestive of RT PNA with cardiomegaly - will draw blood culture, order EKG, administer steroids (KHADRA SYED) Progress Note : Time: 20:30 Progress Note Patient was interviewed and examined along with MS 4. She was found to have improved respiratory status on BiPAP which was initiated before my examination. Chest x-ray revealed congestion with probable superimposed infiltrate suggestive of recurrent pneumonia. Patient did have a recent COVID-19 positive test on November 07 but seemed to recover after discharge from the hospital. This seems to be a separate illness. No relative lymphopenia is noted on the CBC. By clinical impression, patient is considered to be COVID-negative despite the positive PCR test in the ER. Influenza PCR was also negative. I reviewed cardiology documentation from prior visits. Patient does not have any evidence of heart failure based on ejection fraction from echocardiogram in September, but she does have significant valvular disease which is also evidenced by murmur on exam. Vital signs are marginal with a blood pressure in the 110s and 120s, ther efore Lasix has not been administered at this point. I did discuss administration of Lasix with Dr. Negrete and he wishes to hold off for the time being. Due to the evidence of congestion on chest x-ray, no boluses of fluids were administered as she maintains an acceptable blood pressure. Lactic acid was normal. Patient does not meet criteria for severe sepsis. She has 2 sourc es of infection identified on work-up. One is pyuria, and the other is probable pneumonia. Patient had a highly resistant urine culture sensitivity in September. Cefepime was initially given for empiric antibiotic coverage for pneumonia, but this is being changed to meropenem after review of the urinalysis during this visit and her prior urine culture. Vancomycin should also be added due to her numerous hospitalizations in recent months. DuoNeb treatment was administered in line with BiPAP. Solu-Medrol was also administered. Patient has a DO NOT RESUSCITATE order with her alf paperwork. Case was discussed with Dr. Negrete who agrees to admission. After review of recent medical history, it would appear a conversation with patient and family about hospice may be beneficial. Labs including CBC, CMP, CRP, BNP, viral swabs, and UA, as well as x-ray and ECG were reviewed by me in their entirety. Of note, nursing staff reported patient passed some dark blood clots from the vagina when they were pre paring to place the Ch[facility]. Dr. Negrete was notified. (JOSE KEYES MD) ECG Initial ECG Impression Date: Nov 28, 2022 Initial ECG Impression Time: 19:30 Initial ECG Rate: 67 Initial ECG Rhythm: A Fib/Flutter Initial ECG Impression: Atrial Fibrillation Comment Rate controlled atrial fibrillation with no acute ST elevation or depression. There is chronic left bundle branch block relatively unchanged from prior. Both rate controlled atrial fibrillation and left bundle branch block are noted on other recent EKGs. No axis deviation. (JOSE KEYES MD) Diagnostic Imaging Diagonstic Imaging: Xray Plain Films/CT/US/NM/MRI: chest Comments Single view chest x-ray was viewed by me and compared with prior. By my interpretation there appears to be increased infiltrate in the right lower lung. There may also be a component of congestion and/or residual scattered opacity from her recent COVID infection. Radiologist report was also reviewed as below: NAME: LUCITA SALAZAR MED REC#: [id number] PT STATUS: REG ER : 1940 PHYSICIAN: JOSE KEYES MD ADMIT DATE: 11/28/22/ER Signed Date of Exam:11/28/22 CHEST 1 VIEW, AP/PA ONLY INDICATION: Hypoxia COMPARISON: 11/07/2022 FINDINGS: There is increased failure pattern with progressive cardiomegaly, vascular congestion, similar pleural effusions and likely increased perihilar edema, most notably in the right base. In the appropriate clinical scenario, superimposition of pneumonia could not be excluded. IMPRESSION: 1. Interval worsened failure pattern with no pneumothorax. 2. Superimposed pneumonia in the right lower lobe could not be excluded radiographically. Dictated by: Dictated on workstation # [id number] Dict: 11/28/22 183 Trans: 11/28/221842 [facility] [id number] Interpreted by: ROBERTO LEMA Electronically signed by: ROBERTO LEMA 11/28/221842 (JOSE KEYES MD) Departure Communication (Admissions) Time/Spoke to Admitting Phy: 20:23 Dr. Negrete (JOSE KEYES MD) Impression Primary Impression: Acute and chronic respiratory failure with hypoxia Additional Impressions: Right lower lobe pneumonia Qualified Codes: J18.9 - Pneumonia, unspecified organism COPD exacerbation Urinary tract infection Qualified Codes: N39.0 - Urinary tract infection, site not specified Recent COVID-19 infection Advanced dementia Qualified Codes: F03.C0 - Unspecified dementia, severe, without behavioral disturbance, psychotic disturbance, mood disturbance, and anxiety Abnormal vaginal bleeding Anemia Qualified Codes: D64.9 - Anemia, unspecified Disposition: ADMITTED INPATIENT Condition: Improved Admissions Decision to Admit Reason: Admit from ER (General) Decision to Admit/Date: Nov 28, 2022 Time/Decision to Admit Time: 20:23 (JOSE KEYES MD) Departure-Patient Inst. Referrals: JUSTIN JOHNSON MD (PCP/Family) Primary Care Physician Medical Student Attestation and Attending Note: I have personally interviewed and examined this patient along with Khadra Syed MS4. I have reviewed student documentation including history, physical, and assessments. I agree with the documentation except where otherwise noted. Exam: General: Alert, no acute distress on BiPAP, answers questions but is slow to respond HEENT: Normocephalic and atraumatic Heart: Regular rate with irregular rhythm with loud systolic murmur, strong radial pulse Lungs: Decreased breath sounds with minimal wheezing. No crackles or rhonchi. On BiPAP. Abdomen: Soft, nontender, nondistended, normal bowel sounds Extremities: No significant edema Neuropsych: Alert, cognitive deficits with dementia at baseline, no gross neurologic deficits observed Skin: Warm and dry without rashes (JOSE KEYES MD) Copy Copies To 1: JUSTIN JOHNSON MD, DAVID Nov 28, 2022 18:44 JOSE KEYES MD Nov 28, 2022 20:35
[2022-11-28] MEDS ORDERED: RT-ALBUTEROL/IPRATROPIUM 3 ML (DUONEB) VIAL INH ONE (18:45)
[2022-11-28 18:47] LABS: EOSINOPHILS % (MANUAL) 2 %; LYMPHOCYTES % (MANUAL) 11 %; MONOCYTES % (MANUAL) 7 %; NEUTROPHILS % (MANUAL) 80 %
[2022-11-28 18:48] LABS: ANISOCYTOSIS SLIGHT; HYPOCHROMASIA MODERATE; POIKILOCYTOSIS SLIGHT
[2022-11-28 19:00] LABS: BILIRUBIN,TOTAL 0.7 MG/DL (0.1-1.0)
[2022-11-28] MEDS ORDERED: CEFEPIME INJECTION 2,000 MG in NS (IVPB) 50 ML IV ONE (19:00)
[2022-11-28 19:01] LABS: INR 1.4 (0.8-1.4); PROTHROMBIN TIME PATIENT 17.5 SEC (12.2-14.7)
[2022-11-28] MEDS ORDERED: methylPREDNISolone 125 MG (Solu-MEDROL) VIAL IVP ONE (19:45)
[2022-11-28 19:55] LABS: BILIRUBIN,URINE NEGATIVE (NEGATIVE); CLARITY,URINE SL CLOUDY; COLOR,URINE YELLOW; GLUCOSE, URINE (UA) NEGATIVE (NEGATIVE); KETONES,URINE NEGATIVE (NEGATIVE); LEUKOCYTE ESTERASE ,URINE 2+ (NEGATIVE); NITRITE,URINE POSITIVE (NEGATIVE); PROTEIN,URINE 2+ (NEGATIVE)
[2022-11-28] MEDS ORDERED: ONDANSETRON 4 MG/2 ML (SDV) Z0FRAN IVP ONE (20:00)
[2022-11-28 20:12] LABS: BACTERIA,URINE LARGE /HPF; RBC,URINE 25-50 /HPF; SQUAMOUS EPITHELIAL CELL,UR RARE /HPF; WBC,URINE TNTC /HPF
[2022-11-28] MEDS ORDERED: MEROPENEM 1,000 MG in NS (IVPB) 100 ML IV ONE (20:30)
[2022-11-28] MEDS ORDERED: ACETAMINOPHEN 325 MG TABLET PO PRN (22:15)
[2022-11-28] MEDS ORDERED: NS IV 500 ML 500 ML IV PRN (22:15)
[2022-11-28] MEDS ORDERED: LACTATED RINGERS 1,000 ML IV SCH ×2 (22:15→22:30)
[2022-11-28] MEDS ORDERED: ACETAMINOPHEN 650 MG SUPP (TYLENOL) PR PRN (22:15)
[2022-11-28] MEDS ORDERED: ONDANSETRON 4 MG/2 ML (SDV) Z0FRAN IV PRN (22:15)
[2022-11-28] MEDS ORDERED: LACTATED RINGERS 1,000 ML IV ONE (22:25)
[2022-11-28] MEDS: LACTATED RINGERS 1,000 ML IV SCH (22:50)
--- NOTE | 2022-11-28 22:55 | Tele-ICU Consult ---
History of Present Illness History of Present Illness Date Seen by Provider: Nov 28, 2022 Time Seen by Provider: 22:54 Date of Admission 11/28/22 History of Present Illness (Tele-ICU Physician , consultation) Available chart/ vitals / labs / Images reviewed H&P is from ER notes Patient's information available about PMH, allergy reviewed in EMR. ROS as per chart and RN report Video assessment done using teleICU camera, rest of exam as per RN Discussed with RN. She is a 82-year-old female with past medical history of severe dementia congestive heart failure COPD and recurrent respiratory failure presented to the emergency room with a complaint of shortness of breath and she is found to be hypoxic requiring BiPAP ventilation. Chest x-ray showing some infiltrates but it is not clear whether this is congestive heart failure for pneumonia. She was recently hospitalized and in this [place] with the COVID- pneumonia and discharged on oxygen predominantly at nighttime. She is a DNR status. She has a severe aortic stenosis, chronic atrial fibrillation on anticoagulant therapy. She is admitted to ICU for further evaluation and management and I have made a video visit and discussed with the CHILD MONITOR. At this time patient is hypotensive hence I have ordered a small volume fluid bolus and if necessary Levophed to be given. She is resting comfortably on BiPAP ventilation. Impression 1. Acute on chronic hypoxic respiratory failure. 2. Possible healthcare associated pneumonia 3. Severe aortic stenosis 4. Chronic atrial fibrillation 5. COVID19 pneumonia 6. Severe dementia. 7. Hypotension probably due to sepsis. Recommendations 1. We will give small volume fluid bolus 2. If necessary start on Levophed 3. Antibiotics per primary care physician. 4. Continue BiPAP ventilation. 5. Cardiology consulted who will see the patient in a.m. Prognosis guarded Coordination of care with the primary care physician and bedside consultants. Next Critical care time spent on this patient today approximately 30 minutes. Allergies and Home Medications Allergies Coded Allergies: doxycycline (Unverified Allergy, Mild, 11/26/17) Home Medications Albuterol Sulfate 6.7 Gm Hfa.aer.ad, 2 PUFF INH Q6H PRN for SHORTNESS OF BREATH, (Reported) Alprazolam 0.25 Mg Tablet, 0.25 MG PO HS, (Reported) Amitriptyline HCl 25 Mg Tablet, 25 MG PO HS, (Reported) Amlodipine Besylate 5 Mg Tablet, 10 MG PO DAILY, (Reported) TAKES 2 (5MG) TABS HOLD FOR SBP<100 OR HR<60 Apixaban 5 Mg Tablet, 5 MG PO Q12H, (Reported) Ascorbate Calcium 500 Mg Tablet, 500 MG PO BID, (Reported) Aspirin 81 Mg Tab.chew, 81 MG PO DAILY, (Reported) Cholecalciferol (Vitamin D3) 25 Mcg (1000 Unit) Capsule, 25 MCG PO DAILY, (Reported) Citalopram Hydrobromide 10 Mg Tablet, 10 MG PO HS, (Reported) Dexamethasone 6 Mg Tablet, 6 MG PO DAILY Prescribed by: MARCO A CÁRDENAS on 11/10/22 1214 Docusate Sodium 100 Mg Capsule, 100 MG PO BID, (Reported) Fluticasone/Vilanterol 200 Mcg-25 Mcg/Dose Blst.w.dev, 1 PUFF INH DAILY, (Reported) RINSE AND SPIT MOUTH WITH WATER AFTER EACH USE Furosemide 40 Mg Tablet, 60 MG PO DAILY, (Reported) TAKES 1 & (20MG) TABS Gabapentin 300 Mg Capsule, 300 MG PO TID, (Reported) Hydrocodone/Acetaminophen 5 Mg-325 Mg Tablet, 1 TAB PO Q6H PRN for PAIN-MODERATE (5-7), (Reported) Latanoprost 2.5 Ml Drops, 1 DROP OU HS, (Reported) Lisinopril 20 Mg Tablet, 20 MG PO DAILY, (Reported) HOLD FOR SBP LESS THAN 100 AND DBP LESS THAN 60 Magnesium Hydroxide 2,400 Mg/10 Ml Oral.susp, 30 ML PO DAILY PRN for CONSTIPATION-7TH LINE, (Reported) Menthol 4 % Gel..ml., 1 APPLIC TP TID, (Reported) APPLY TO KNEES Menthol 4 % Gel..ml., 1 APPLIC TP DAILY PRN for PAIN BREAKTROUGH, (Reported) MAY USE FOR PAIN DURING THERAPY SESSION Metoprolol Succinate 50 Mg Tab.er.24h, 50 MG PO DAILY, (Reported) Potassium Chloride 20 Meq Tab.er.prt, 20 MEQ PO DAILY, (Reported) Ropinirole HCl 1 Mg Tablet, 1 MG PO HS, (Reported) Tramadol HCl 50 Mg Tablet, 50 MG PO Q12H PRN for PAIN-MODERATE (5-7), (Reported) Vit A/C/E/Zinc/Co 14,320-226 Capsule, 1 CAP PO DAILY, (Reported) Past Medical/Social/Family Hx Patient Social History Tobacco Use?: No Use of E-Cig and/or Vaping dev: No Substance use?: No Alcohol Use?: No Pt stated abuse/neglect: Unable to obtain Immunizations Up To Date Influenza Vaccine Up-to-Date: Yes; Up-to-Date First/Initial COVID19 Vaccinat: 2020 Second COVID19 Vaccination Ronald: 2020 Tetanus Booster (TDap): Unknown Hepatitis A: Yes Hepatitis B: Yes TB Skin Test: None Date of Pneumonia Vaccine: Oct 30, 2016 Current Status Advance Directives: Yes Advance Directive Location: DNR Communicates: Verbally Primary Language: Latvian Preferred Spoken Language: Latvian Implanted or Applied Medical D: Pacemaker Review of Systems Constitutional: see HPI, other (SHORTNESS OF BREATH) Focused Exam Lactate Level 11/28/22 19:15: Lactic Acid Level 1.54 Height, Weight, BMI Height: 5'4.00" Weight: 182lbs. 0.6oz. 77.959635sn; 23.72 BMI Method:Stated Lactic Acid Level Laboratory Tests Test 11/28/22 19:15 Lactic Acid Level 1.54 MMOL/L (0.50-2.00) Exam Exam Patient acknowledged, consented, and participated in this virtual visit which was conducted using real time audio/video Vital Signs Date Time Temp Pulse Resp B/P (MAP) Pulse Ox O2 Delivery O2 Flow Rate FiO2 11/28/22 22:49 98 NIV Bilevel 40.00 11/28/22 22:45 60 25 71/31 (44) 98 11/28/22 22:30 60 20 79/38 (51) 100 11/28/22 22:22 60 20 66/36 (45) 99 11/28/22 22:15 60 20 76/35 (51) 100 11/28/22 22:00 60 21 104/56 (75) 100 11/28/22 22:00 NIV Bilevel 50 11/28/22 21:56 67 97 11/28/22 21:51 63 118/58 (78) 99 NIV Bilevel 50.00 11/28/22 21:51 26 97 50.00 11/28/22 21:51 63 11/28/22 21:45 36.4 74 20 125/65 (85) 100 NIV Bilevel 50.00 11/28/22 21:40 36.0 61 20 111/54 97 NIV Bilevel 50.00 11/28/22 19:17 67 30 97 50.00 11/28/22 17:15 78 26 100 80.00 11/28/22 17:00 36.7 85 40 170/91 (117) 96 Non Rebreather 10.00 11/28/22 17:00 Non Rebreather 10.00 Height & Weight Height: 5'4.00" Weight: 182lbs. 0.6oz. 77.454612bg; 23.72 BMI Method:Stated General Appearance: Chronically ill Gastrointestinal: normal bowel sounds, distended; No guarding; tenderness, other (Palpable aorta) Other comments PE PER RN Results Lab Laboratory Tests 11/28/22 17:00 Assessment/Plan Assessment/Plan ABOVE Critical Care: Critically Ill Patient Time spent with patient (mins): 30 ROBERTH RODRÍGUEZ MD Nov 28, 2022 22:55
[2022-11-28] MEDS ORDERED: VANCOMYCIN 1250 MG/NS 250 ML PREMIX IV ONE (23:00)
[2022-11-28] MEDS: NOREPINEPHRINE 8 MG/250 ML 250 ML IV SCH (23:12)
[2022-11-29] VITALS (38 sets, daily range): BP systolic 82–545; BP diastolic 37–101
[2022-11-29] MEDS ORDERED: CATHETER FLUSH 10 ML SYR IVP PRN
[2022-11-29] MEDS: APIXABAN 5 MG (ELIQUIS) TABLET PO SCH ×2 (00:04→08:40)
[2022-11-29] MEDS: RT-ALBUTEROL HFA 8.5 GM INHALER IH SCH ×6 (02:03→22:14)
[2022-11-29] MEDS ORDERED: MEROPENEM 500 MG/NS 100 ML IVPB IV SCH ×2 (03:00)
[2022-11-29 05:32] LABS: BASOPHILS % (AUTO) 0 % (0-10); EOSINOPHILS % (AUTO) 0 % (0-10); HEMATOCRIT 23 % (35-52); LYMPHOCYTES # (AUTO) 0.4 10^3/uL (1.0-4.0); LYMPHOCYTES % (AUTO) 6 % (12-44); MEAN CORPUSCULAR HEMOGLOBIN 23 pg (25-34); MEAN CORPUSCULAR HGB CONC 29 g/dL (32-36); MEAN CORPUSCULAR VOLUME 79 fL (80-99); MEAN PLATELET VOLUME 10.7 fL (9.0-12.2); MONOCYTES # (AUTO) 0.1 10^3/uL (0.0-1.0); MONOCYTES % (AUTO) 1 % (0-12); NEUTROPHILS # (AUTO) 5.8 10^3/uL (1.8-7.8); NEUTROPHILS % (AUTO) 92 % (42-75); PLATELET COUNT 267 10^3/uL (130-400); WHITE BLOOD COUNT 6.3 10^3/uL (4.3-11.0)
[2022-11-29 05:41] LABS: HEMOGLOBIN 6.7 g/dL (11.5-16.0)
[2022-11-29 05:52] LABS: BILIRUBIN,TOTAL 0.6 MG/DL (0.1-1.0); CALCIUM 8.6 MG/DL (8.5-10.1); CREATININE SERUM 0.77 MG/DL (0.60-1.30); POTASSIUM 4.3 MMOL/L (3.6-5.0); TOTAL PROTEIN 5.7 GM/DL (6.4-8.2)
[2022-11-29] MEDS: POTASSIUM CL 10MEQ/50ML IVPB 50 ML IV SCH (06:09)
[2022-11-29] MEDS: MAGNESIUM 1 GM/100 ML IVPB 100 ML IV SCH (06:09)
[2022-11-29] MEDS: KCL 20 MEQ TAB (K-DUR) PO SCH (06:10)
[2022-11-29] MEDS: inSUlin ASPART (NovoLOG) 1 UNIT/0.01 ML (CHARGE PER UNIT) SQ SCH ×4 (06:10→20:22)
[2022-11-29] MEDS ORDERED: NS IV 500 ML 500 ML IV SCH ×3 (06:15→14:30)
[2022-11-29] MEDS: CATHETER FLUSH 10 ML SYR IVP SCH ×3 (06:27→20:31)
[2022-11-29] MEDS: LACTATED RINGERS 1,000 ML IV SCH ×2 (07:14→19:36)
--- NOTE | 2022-11-29 07:50 | History & Physical-Hospitalist ---
History of Present Illness HPI/Chief Complaint Patient is an 82-year-old female known to me from multiple recent admissions who presented to the emergency department due to shortness of breath. She is unable to provide me any history which is near her baseline given her dementia. All history is obtained from the records. She presented from her shelter due to shortness of breath who was found to have sepsis due to likely pneumonia and urinary tract infection. She was in acute respiratory failure and placed on BiPAP on which she remains. She was placed on IV antibiotics and admitted to the ICU. I was able to contact her son later in the day who states that 2 days ago she was feeling very well when he visited her at the shelter and that she took an abrupt turn for the worse. He did independently acknowledge that this is happening more frequently and she continues to get more sick. We discussed that this could be a sign that she is nearing the end of her life and that eventually she may get a pneumonia so severe she is unable to recover. He expresses hope that that is not this time and is hopeful she will turn around and get better. Source: patient Date Seen 11/29/22 Time Seen by a Provider: 08:00 Attending Physician Jason Boudreaux MD PCP Admitting Physician: Baldev Negrete MD Attending Physician: Baldev Negrete MD Referring Physician Date of Admission Nov 28, 2022 at 21:12 Home Medications & Allergies Home Medications Reviewed patient Home Medication Reconciliation performed by pharmacy medication reconciliations computer repair technician and/or nursing. Patients Allergies have been reviewed. Allergies Allergies Coded Allergies doxycycline (Unverified Allergy, Mild, 11/26/17) Past Xxlsezy-Hsbayk-Mpjbhq Hx Patient Social History Employed/Student: retired Tobacco Use?: No Use of E-Cig and/or Vaping dev: No Substance use?: No Alcohol Use?: No Pt feels they are or have been: Unable to obtain Immunizations Up To Date Date of Influenza Vaccine: Oct 08, 2022 First/Initial COVID19 Vaccinat: 2020 Second COVID19 Vaccination Ronald: 2020 Tetanus Booster (TDap): Unknown Hepatitis A: Yes Hepatitis B: Yes Date of Pneumonia Vaccine: Oct 30, 2016 Seasonal Allergies Seasonal Allergies: Yes Current Status Advance Directives: Yes Advance Directive Location: DNR Communicates: Verbally Primary Language: Japanese Preferred Spoken Language: Japanese Implanted or Applied Medical D: Pacemaker Past Medical History Surgeries: Section, Pacemaker, Tonsillectomy Asthma, Sleep Apnea, COPD Currently Using CPAP: No Atrial Fibrillation, High Cholesterol, Hypertension, Valvular Heart Disease Dementia, Stroke Sexually Transmitted Disease: No HIV/AIDS: No Renal Failure Gastroesophageal Reflux, Chronic Constipation Arthritis, Chronic Back Pain Glaucoma Loss of Vision: Bilateral Hearing Impairment: Hard of Hearing Anxiety, Depression Blood Disorders: No Adverse Reaction/Blood Tranf: No (N/A) Family Medical History Heart Disease, COPD, Renal Disease, Other Conditions/Hx Review of Systems Constitutional: see HPI Physical Exam Physical Exam Vital Signs Vital Signs - First Documented 11/28/22 11/28/22 17:00 22:00 Temp 36.7 Pulse 85 Resp 40 B/P (MAP) 170/91 (117) Pulse Ox 96 O2 Delivery Non Rebreather O2 Flow Rate 10.00 FiO2 50 Capillary Refill : Height, Weight, BMI Height: 5'4.00" Weight: 182lbs. 0.6oz. 77.469188tk; 23.72 BMI Method:Stated General Appearance: No Apparent Distress, Chronically ill HEENT: Other (BiPAP) Respiratory: No Accessory Muscle Use, Crackles, Decreased Breath Sounds, Other (on BiPAP) Cardiovascular: No Murmur, Irregularly Irregular Gastrointestinal: Normal Bowel Sounds, Non Tender, Soft Neurologic/Psychiatric: Alert, Disoriented Results Results/Procedures Labs Laboratory Tests 11/28/22 17:00 11/29/22 04:50 Patient resulted labs reviewed. Imaging: Reviewed Imaging Report Imaging [facility] [place] NAME: LUCITA ORLANDO Allison [facility] REC#: [id number] PT STATUS: REG ER : 1940 PHYSICIAN: JOSE KEYES MD ADMIT DATE: 11/28/22/ER Signed Date of Exam:11/28/22 CHEST 1 VIEW, AP/PA ONLY INDICATION: Hypoxia COMPARISON: 11/07/2022 FINDINGS: There is increased failure pattern with progressive cardiomegaly, vascular congestion, similar pleural effusions and likely increased perihilar edema, most notably in the right base. In the appropriate clinical scenario, superimposition of pneumonia could not be excluded. IMPRESSION: 1. Interval worsened failure pattern with no pneumothorax. 2. Superimposed pneumonia in the right lower lobe could not be excluded radiographically. Dictated by: Dictated on workstation # [id number] Dict: 11/28/22 1830 Trans: 11/28/22 184 [facility] [id number] Interpreted by: ROBERTO LEMA Electronically signed by: ROBERTO LEMA 11/28/22 6938 Assessment/Plan Admission Diagnosis Septic Shock and Acute on Chronic Respiratory failure Admission Status: Inpatient Order (span 2 midnights) Reason for Inpatient Admission: see below Assessment and Plan Septic Shock UTI PNA Acute on chronic respiratory failure HFpEF UA concerning for UTI and CXR with pna Did test positive for COVID but had it in October, likely not an acute infection CXR without acute abnormalities, unchanged from prior Currently on BiPAP Continue IV abx Await cultures Levophed overnight but on hold right now Lasix Cardiology consulted, appreciate recs TeleICU consulted, appreciate recs Anemia Chronic anemic Baseline in the 7-8s Down to 6.7 today Blood ordered by ei[facility]- unable to reach son for consent Advanced dementia Poor prognosis care home resident, VCV Pt would benefit from palliative care HTN AFib History of CVA Continue home meds as able Hold Eliquis due to anemia DVT ppx: SCDs only due to anemia ABRAHAM CIFUENTES MD Nov 29, 2022 7:50 am
--- NOTE | 2022-11-29 08:55 | Consultation-Cardiology ---
HPI-Cardiology Cardiology Consultation: Date of Consultation 11/29/22 Time Seen by a Provider: 08:45 Date of Admission 11-28-22 Attending Physician Jason Boudreaux MD Admitting Physician Admitting Physician: Baldev Negrete MD Attending Physician: Baldev Negrete MD Consulting Physician Mala Lemons MD HPI: Chief Complaint: Acute on chronic diastolic CHF Ms. Salazar is an 82 yr old female admitted to ICU 5 from the ED. She resides at [facility]. She is not a good historian d/t dementia. She does not recall the events leading to her hospital admission. She currently reports "she doesn't think she was short of breath". She is currently stating she feels ok. She denies any c/o CP or SOB at this time. She denies any n/v/d. Review of Systems-Cardiology Review of Systems Other comments Limited ROS d/t dementia - as listed in HPI GLK-Bxrbob-Wnirjb Hx Patient Social History Have you traveled recently?: No Alcohol Use?: No Pt feels they are or have been: Unable to obtain Immunizations Up To Date Date of Pneumonia Vaccine: Oct 30, 2016 Date of Influenza Vaccine: Oct 08, 2022 Past Medical History PMH As described under Assessment. Family Medical History Family Medical History: Unable to obtain due to dementia Allergies and Home Medications Allergies Coded Allergies: doxycycline (Unverified Allergy, Mild, 11/26/17) Patient Home Medication List Albuterol Sulfate (Ventolin Hfa) 90 Mcg Hfa.aer.ad, 2 PUFF INH Q6H PRN for SHORTNESS OF BREATH, (Reported) Entered as Reported by: ABHIJEET FELIPE on 11/29/22 1406 Last Action: Reviewed Alprazolam (Xanax) 0.25 Mg Tablet, 0.25 MG PO HS, (Reported) Entered as Reported by: ABHIJEET FELIPE on 06/01/22 1114 Last Action: Reviewed Amitriptyline HCl (Amitriptyline HCl) 25 Mg Tablet, 25 MG PO HS, (Reported) Entered as Reported by: SREEDHAR MCMANUS on 09/26/20 1610 Last Action: Reviewed Amlodipine Besylate (Amlodipine Besylate) 5 Mg Tablet, 10 MG PO DAILY, (Reported) Entered as Reported by: ABHIJEET FELIPE on 11/08/22 1134 Last Action: Reviewed Apixaban (Eliquis) 5 Mg Tablet, 5 MG PO Q12H, (Reported) Entered as Reported by: ABHIJEET FELIPE on 02/24/21 1308 Last Action: Reviewed Ascorbate Calcium (Vitamin C) 500 Mg Tablet, 500 MG PO BID, (Reported) Entered as Reported by: ABHIJEET FELIPE on 06/01/221113 Last Action: Reviewed Aspirin (Aspirin) 81 Mg Tab.chew, 81 MG PO DAILY, (Reported) Entered as Reported by: ABHIJEET FELIPE on 11/08/22 113 Last Action: Reviewed Cholecalciferol (Vitamin D3) (Vitamin D3) 25 Mcg (1000 Unit) Capsule, 25 MCG PO DAILY, (Reported) Entered as Reported by: ABHIJEET FELIPE on 03/28/22 142 Last Action: Reviewed Citalopram Hydrobromide (Citalopram HBr) 10 Mg Tablet, 10 MG PO HS, (Reported) Entered as Reported by: ABHIJEET FELIPE on 02/24/21 1308 Last Action: Reviewed Docusate Sodium (Docusate Sodium) 100 Mg Capsule, 100 MG PO BID, (Reported) Entered as Reported by: ABHIJEET FELIPE on 06/01/221113 Last Action: Reviewed Fluticasone/Vilanterol (Breo Ellipta 200-25 Mcg INH) 200 Mcg-25 Mcg/Dose Blst.w.dev, 1 PUFF INH DAILY, (Reported) Entered as Reported by: ABHIJEET FELIPE on 06/01/221113 Last Action: Reviewed Furosemide (Furosemide) 40 Mg Tablet, 60 MG PO DAILY, (Reported) Entered as Reported by: ABHIJEET FELIPE on 03/28/22 1156 Last Action: Reviewed Gabapentin (Neurontin) 300 Mg Capsule, 300 MG PO TID, (Reported) Entered as Reported by: ABHIJEET FELIPE on 06/01/22 111 Last Action: Reviewed Hydrocodone/Acetaminophen (Hydrocodone-Acetamin 5-325 mg) 5 Mg-325 Mg Tablet, 1 TAB PO Q6H PRN for PAIN-MODERATE (5-7), (Reported) Entered as Reported by: ABHIJEET FELIPE on 06/01/22 111 Last Action: Reviewed Latanoprost (Xalatan) 2.5 Ml Drops, 1 DROP OU HS, (Reported) Entered as Reported by: ABHIJEET FELIPE on 09/28/20 0910 Last Action: Reviewed Lisinopril (Lisinopril) 20 Mg Tablet, 20 MG PO DAILY, (Reported) Entered as Reported by: ABHIJEET FELIPE on 11/08/22 113 Last Action: Reviewed Magnesium Hydroxide (Milk of Magnesia) 2,400 Mg/10 Ml Oral.susp, 30 ML PO DAILY PRN for CONSTIPATION-7TH LINE, (Reported) Entered as Reported by: ABHIJEET FELIPE on 06/01/22 1114 Last Action: Reviewed Menthol (Biofreeze) 4 % Gel..ml., 1 APPLIC TP TID, (Reported) Entered as Reported by: ABHIJEET FELIPE on 11/08/22 113 Last Action: Reviewed Menthol (Biofreeze) 4 % Gel..ml., 1 APPLIC TP DAILY PRN for PAIN BREAKTROUGH, (Reported) Entered as Reported by: ABHIJEET FELIPE on 11/08/22 113 Last Action: Reviewed Metoprolol Succinate (Metoprolol Succinate) 50 Mg Tab.er.24h, 50 MG PO DAILY, (Reported) Entered as Reported by: ABHIJEET FELIPE on 11/08/22 113 Last Action: Reviewed Potassium Chloride (Potassium Chloride) 20 Meq Tab.er.prt, 20 MEQ PO DAILY, (Reported) Entered as Reported by: ABHIJEET FELIPE on 03/28/22 1156 Last Action: Reviewed Ropinirole HCl (Ropinirole HCl) 1 Mg Tablet, 1 MG PO HS, (Reported) Entered as Reported by: ESTEFANÍA FIORE on 11/26/17 0843 Last Action: Reviewed Tramadol HCl (Tramadol HCl) 50 Mg Tablet, 50 MG PO Q12H PRN for PAIN-MODERATE (5-7), (Reported) Entered as Reported by: ABHIJEET FELIPE on 06/01/22 1114 Last Action: Reviewed Vit A/C/E/Zinc/Co (Preservision Areds Softgel) 14,320-226 Capsule, 1 CAP PO DAILY, (Reported) Entered as Reported by: ABHIJEET FELIPE on 03/28/22 1424 Last Action: Reviewed Physical Exam-Cardiology Physical Exam Vital Signs/I&O 11/29/22 11/29/22 11/29/22 11/29/22 22:00 22:14 23:00 23:05 Temp 36.8 Pulse 71 60 60 Resp 24 23 18 B/P (MAP) 121/56 (77) 141/46 (77) Pulse Ox 98 92 93 93 O2 Delivery NIV Bilevel NIV Bilevel NIV Bilevel O2 Flow Rate 25.00 25.00 25.00 FiO2 25 11/30/22 11/30/22 11/30/22 11/30/22 00:00 01:00 01:00 02:00 Pulse 60 60 61 60 Resp 27 23 B/P (MAP) 152/49 (83) 153/54 (87) 153/44 (80) Pulse Ox 96 96 96 O2 Delivery NIV Bilevel NIV Bilevel NIV Bilevel O2 Flow Rate 25.00 25.00 25.00 11/30/22 11/30/22 11/30/22 11/30/22 02:39 03:00 03:30 03:30 Temp 36.3 Pulse 61 60 Resp 24 20 B/P (MAP) 125/56 (79) Pulse Ox 93 97 96 O2 Delivery NIV Bilevel NIV Bilevel NIV Bilevel O2 Flow Rate 25.00 25.00 25.00 FiO2 25 11/30/22 11/30/22 11/30/22 11/30/22 04:00 05:00 06:00 06:35 Pulse 60 61 61 Resp 28 25 26 B/P (MAP) 141/47 (78) 129/52 (77) 131/55 (80) Pulse Ox 99 96 94 94 O2 Delivery NIV Bilevel NIV Bilevel NIV Bilevel Nasal Cannula O2 Flow Rate 25.00 25.00 25.00 4.00 11/30/22 11/30/22 11/30/22 11/30/22 07:00 07:00 07:42 07:42 Pulse 59 59 Resp 21 B/P (MAP) 140/43 (75) Pulse Ox 92 94 94 O2 Delivery Nasal Cannula Nasal Cannula Nasal Cannula O2 Flow Rate 4.00 4.00 4.00 11/30/22 11/30/22 11/30/22 08:00 08:22 08:42 Temp 35.6 Pulse 61 Resp 28 B/P (MAP) 149/48 (81) Pulse Ox 94 O2 Delivery Nasal Cannula Nasal Cannula OxyMask O2 Flow Rate 4.00 4.00 6.00 11/30/22 00:00 Intake Total 950 ml Output Total 770 ml Balance 180 ml Capillary Refill : Constitutional: No AAO x 3 (oriented to self and place); well-developed, other (thin) HEENT: hard of hearing Neck: No carotid bruit; carotid pulses are 2 + bilaterally Respiratory: No accessory muscle use, No respiratory distress; other (diminished lower lobes bilat; poor inspiratory effort) Cardiovascular: irregularly irregular; No JVD; S1 and S2, systolic murmur Gastrointestinal: No tender; soft; No guarding; audible bowel sounds Extremities: no lower extremity edema bilateral Neurologic/Psychiatric: grossly intact (moves all extremties) Skin: No rash on exposed areas, No ulcerations on exposed areas Lymphatic: no adenopathy Data Review Labs Laboratory Tests 11/29/22 17:07: Glucometer 90 11/29/22 20:21: Glucometer 86 11/30/22 04:08: White Blood Count 7.7, Red Blood Count 3.07L, Hemoglobin 7.2L, Hematocrit 24L, Mean Corpuscular Volume 78L, Mean Corpuscular Hemoglobin 24L, Mean Corpuscular Hemoglobin Concent 30L, Red Cell Distribution Width 17.2H, Platelet Count 286, Mean Platelet Volume 10.8, Immature Granulocyte % (Auto) 1, Neutrophils (%) (Auto) 78H, Lymphocytes (%) (Auto) 13, Monocytes (%) (Auto) 7, Eosinophils (%) (Auto) 1, Basophils (%) (Auto) 1, Neutrophils # (Auto) 6.1, Lymphocytes # (Auto) 1.0, Monocytes # (Auto) 0.5, Eosinophils # (Auto) 0.1, Basophils # (Auto) 0.0, Immature Granulocyte # (Auto) 0.0, Sodium Level 141, Potassium Level 3.7, Chloride Level 108H, Carbon Dioxide Level 23, Anion Gap 10, Blood Urea Nitrogen 19H, Creatinine 0.74, Estimat Glomerular Filtration Rate 82, BUN/Creatinine Ratio 26, Glucose Level 81, Calcium Level 8.4L, Corrected Calcium 9.2, Phosphorus Level 3.1, Magnesium Level 1.9, Total Bilirubin 0.8, Aspartate Amino Transf (AST/SGOT) 8, Alanine Aminotransferase (ALT/SGPT) 7, Alkaline Phosphatase 68, Total Protein 5.4L, Albumin 3.0L Microbiology 11/28/22 MRSA Screen - Final, Complete MRSA not isolated 11/28/22 Urine Culture - Preliminary, Resulted Escherichia coli 11/28/22 Blood Culture - Preliminary, Resulted No growth Radiology NAME: LUCITA SALAZAR [facility] REC#: [id number] PT STATUS: REG ER : 1940 PHYSICIAN: JOSE KEYES MD ADMIT DATE: 11/28/22/ER Signed Date of Exam:11/28/22 CHEST 1 VIEW, AP/PA ONLY INDICATION: Hypoxia COMPARISON: 11/07/2022 FINDINGS: There is increased failure pattern with progressive cardiomegaly, vascular congestion, similar pleural effusions and likely increased perihilar edema, most notably in the right base. In the appropriate clinical scenario, superimposition of pneumonia could not be excluded. IMPRESSION: 1. Interval worsened failure pattern with no pneumothorax. 2. Superimposed pneumonia in the right lower lobe could not be excluded radiographically. Dictated by: Dictated on workstation # [id number] Dict: 11/28/22 183 Trans: 11/28/22 184 [facility] [id number] Interpreted by: ROBERTO LEMA Electronically signed by: ROBERTO LEMA 11/28/221842 ECG Impression ECG Comment A-fib with LBBB A/P-Cardiology Assessment/Admission Diagnosis Acute on chronic resp failure - likely multi-factorial d/t acute on chronic diastolic CHF, acute on chronic exacerbation of COPD, pneumonia Pneumonia - management per medical services Anemia - undetermined etiology - management per medical services UTI - management per medical services Hypotension - requiring pressor support overnight Permanent A Fib - has been on OAC for stroke prophylaxis with Eliquis Aortic stenosis - Echo of 03/28/22 (Dr Escalera): LVEF 60-65%, severe , mild AI, mild MAC, mild MR, mild to mod TR, severe enlargement of both atria, PASP 76 mmHg - Echo on 10/09/22: LVEF 65-70%. Biatrial enlargement, mod to severe. Mild to mod MAC. Mild MR. Mod . Mild AI. PASP 70-75 mmHg Ch resp failure due to COPD - on supple oxygen Cardiac pacemaker in situ - details unknown H/o CVA Dementia Discussion and Recomendations Complex management Acute resp distress likely multi-factorial d/t acute on chr exacerbation of COPD, acute on chronic diastolic CHF, pneumonia and anemia Anemia - undetermined etiology - management per medical services - advise transfusion of at least 2 units of PRBC today - reasonable to hold Eliquis d/t suspected GIB; we advise w/u for source of bleeding be determined JED or if no source found than that Eliquis be resumed d/t risk of stroke d/t chronic a-fib Chronic a-fib - rate controlled Acute on chronic diastolic CHF - treat with diuretics as indicated and tolerated Minimal troponin elevation - likely Type 2 OH secondary to hypoxia Management of COPD and pneumonia per medical services Management of UTI per medical services Monitor lab closely Replace electrolytes as indicated We would like to thank medical services for this consult SALLY KENNEDY Nov 29, 2022 08:55
[2022-11-29] MEDS ORDERED: FUROSEMIDE 40 MG/4 ML INJ (LASIX) IVP NR ×2 (10:00→15:00)
--- NOTE | 2022-11-29 11:01 | Tele-ICU Progress Note ---
Subjective Date Seen by a Provider: Nov 29, 2022 Time Seen by a Provider: 11:01 Subjective/Events-last exam (Tele-ICU Physician , Progress Note ) Service provided via interactive audio and video telecommunications E-CARE system to a patient admitted to ICU bed in [facility]. Patient is seen today due to persistent need of ICU care Available chart/ vitals / labs / Images reviewed Video assessment done using teleICU camera, rest of exam as per RN Discussed with RN Events overnight : Afebrile hemodynamically stable Respiratory - I/O = Drips: Pressors- no Consultants: Hospital course: RECENT admission 11/07 with CHF, +COVID, hypoxic respiratory failure (11/28) 82yr F admitted for Acute on Chronic Respiratory failure, Pneumonia, Copd Exacerbation. DNR status. 11/29 In BIPAP 15/ 30 5 , rr20 , TV 450, levo on/off , Hb 6.7 - 1 uPCBC ordered A/P PNA ,RLL, HAP vs aspiration - merrem / vanc Hypotension -received 1L NS , levo on /off - careful with fluuid with and pulm HTN -no obvious bleeding Acute on chronic respiratory failure with hypoxia ( recent Covid (11/07) - d/c on 8 l to NH - BIPAP 05/02 30 5 , rr20 , TV 450 - to wean as tolerated Anemia - no obvious sign of bleeding , Hb 6.7 this am - 1 uPCBC ordered COPD, cronic resp failure - nebs A Fib - Sinus now - has been on OAC for stroke prophylaxis with Eliquis DATA SUPPORT ANALYST - hold today woth hb 6.7 mod - severe aortic stenosis - monitor , as per cads note prior - -not a candidate for any intervvention - off IVF HFpEF - Echo on 10/09/22: LVEF 65-70%. Biatrial enlargement, mod to severe. Mild to mod MAC. Mild MR. Mod . Mild AI Pulm HTN , -Echo on 10/09/22: PASP 70-75 mmHg - fluis status is chalenging given and sepsis Advanced dementia - at risk for aspiration ( with RLL PNA - will need to monitor DNR status Lines : periph might need PICC , (Central Line Necessity Reviewed) Chavis: 11/28 in er OG: Nutrition: npo Analgesia: Anxiety/ delirium VTE Prophylaxis: eliquis Stress Ulcer Prophylaxis: na Plans in collaboration with bedside consultants and IM MDs. Discussed with RN to reach out if any questions or concerns A total of 35 minutes of critical care time was devoted to this patient today, required to treat and/or prevent further deterioration of critical care condition ( as above ) . I am remotely monitoring this patient from another state. I am unable to do the bedside exam, and history/physical and pertinent information is taken from other notes in the computer and bedside staff. . Sepsis Event Evaluation Height, Weight, BMI Height: 5'4.00" Weight: 182lbs. 0.6oz. [id number]; 23.72 BMI Method:Stated Focused Exam Lactate Level 11/28/22 19:15: Lactic Acid Level 1.54 Exam Exam Patient acknowledged, consented, and participated in this virtual visit which was conducted using real time audio/video Vital Signs Date Time Temp Pulse Resp B/P (MAP) Pulse Ox O2 Delivery O2 Flow Rate FiO2 11/29/22 10:00 61 29 115/61 (79) 97 NIV Bilevel 30.00 11/29/22 09:05 NIV Bilevel 11/29/22 09:00 61 26 107/70 (82) 90 NIV Bilevel 30.00 11/29/22 08:45 Nasal Cannula 3.00 11/29/22 08:00 60 23 128/62 (84) 94 NIV Bilevel 30.00 11/29/22 08:00 60 23 128/62 (84) 94 NIV Bilevel 30.00 11/29/22 07:45 62 20 119/64 (82) 95 NIV Bilevel 30.00 11/29/22 07:30 60 16 111/64 (80) 96 NIV Bilevel 30.00 11/29/22 07:25 60 11/29/22 07:15 60 19 98/54 (69) 97 NIV Bilevel 30.00 11/29/22 07:05 30.00 11/29/22 07:05 NIV Bilevel 30.00 11/29/22 07:00 60 20 99 40.00 11/29/22 07:00 60 20 95/55 (68) 99 NIV Bilevel 40.00 11/29/22 07:00 60 20 95/55 (68) 99 NIV Bilevel 40.00 11/29/22 06:45 60 19 95/54 (72) 99 11/29/22 06:30 60 21 108/57 (74) 100 40.00 11/29/22 06:15 60 19 125/66 (88) 100 11/29/22 06:00 60 19 136/66 (93) 100 11/29/22 05:45 60 16 138/68 (91) 100 11/29/22 05:30 63 16 545/ 100 11/29/22 05:23 62 92/37 (55) 11/29/22 05:15 61 19 91/37 (59) 100 11/29/22 05:02 60 18 122/53 (73) 99 11/29/22 05:00 71 18 122/53 (76) 99 11/29/22 05:00 71 18 99 11/29/22 04:45 65 18 91/44 (60) 98 11/29/22 04:30 60 14 82/46 (58) 99 11/29/22 04:00 36.2 60 19 97/45 (66) 100 NIV Bilevel 11/29/22 04:00 NIV Bilevel 50 11/29/22 03:30 60 18 109/56 (74) 100 11/29/22 03:00 60 18 105/59 (77) 100 11/29/22 03:00 60 18 105/59 (77) 100 11/29/22 02:30 60 20 108/61 (78) 100 11/29/22 02:15 60 20 97/55 (71) 100 11/29/22 02:00 60 14 97/53 (70) 99 11/29/22 02:00 60 13 98 40.00 11/29/22 01:45 60 14 94/51 (65) 98 11/29/22 01:30 60 16 115/59 (77) 100 11/29/22 01:15 60 20 120/60 (81) 98 11/29/22 01:00 60 11/29/22 01:00 60 17 116/63 (84) 100 11/29/22 00:45 60 18 118/62 (84) 97 11/29/22 00:30 60 18 117/62 (85) 97 11/29/22 00:15 60 19 126/63 (88) 98 11/29/22 00:00 65 14 134/70 (95) 99 11/29/22 00:00 64 134/70 (91) 98 NIV Bilevel 50.00 11/29/22 00:00 NIV Bilevel 50 11/28/22 23:45 60 20 127/64 (85) 97 11/28/22 23:30 36.1 60 20 121/54 (76) 97 NIV Bilevel 50.00 11/28/22 23:19 60 18 95/50 (65) 94 11/28/22 23:15 60 20 86/47 (63) 95 11/28/22 23:12 81/43 11/28/22 23:00 60 20 81/43 (53) 94 11/28/22 22:49 98 NIV Bilevel 40.00 11/28/22 22:45 60 25 71/31 (44) 98 11/28/22 22:30 60 20 79/38 (51) 100 11/28/22 22:22 60 20 66/36 (45) 99 11/28/22 22:15 60 20 76/35 (51) 100 11/28/22 22:00 60 21 104/56 (75) 100 11/28/22 22:00 NIV Bilevel 50 11/28/22 21:56 67 97 11/28/22 21:51 63 118/58 (78) 99 NIV Bilevel 50.00 11/28/22 21:51 26 97 50.00 11/28/22 21:51 63 11/28/22 21:45 36.4 74 20 125/65 (85) 100 NIV Bilevel 50.00 11/28/22 21:40 36.0 61 20 111/54 97 NIV Bilevel 50.00 11/28/22 19:17 67 30 97 50.00 11/28/22 17:15 78 26 100 80.00 11/28/22 17:00 36.7 85 40 170/91 (117) 96 Non Rebreather 10.00 11/28/22 17:00 Non Rebreather 10.00 I & O 11/29/22 07:00 Intake Total 550 ml Output Total 405 ml Balance 145 ml Height & Weight Height: 5'4.00" Weight: 182lbs. 0.6oz. [id number]; 23.72 BMI Method:Stated General Appearance: Chronically ill Gastrointestinal: normal bowel sounds, distended; No guarding; tenderness, other (Palpable aorta) Results Lab Laboratory Tests 11/28/22 17:00 11/29/22 04:50 Assessment/Plan Assessment/Plan 1 EHSAN FULTON MD Nov 29, 2022 11:01
--- NOTE | 2022-11-29 11:17 | Consultation-Cardiology ---
HPI-Cardiology Cardiology Consultation: Date of Consultation 11/29/22 Time Seen by a Provider: 09:10 Date of Admission Attending Physician Jason Boudreaux MD Admitting Physician Admitting Physician: Baldev Negrete MD Attending Physician: Baldev Negrete MD Consulting Physician KIA STILL MD, MA, FACP, FACC, [facility], CCDS Physician requesting consult: Dr Chatman HPI: Chief Complaint: Reason for Card consult: Acute on chronic diastolic CHF Ms. Salazar is an 82 yr old female admitted to ICU 5 from the ED. She resides at [facility]. She is not a good historian d/t dementia. She does not recall the events leading to her hospital admission. She currently reports "she doesn't think she was short of breath". She is currently stating she feels ok. She denies any c/o CP or SOB at this time. She denies any n/v/d. Review of Systems-Cardiology Review of Systems Constitutional: other (She is unable to provide a meaningful ROS due to dementia) CIE-Tbwboo-[place]ofakb Hx Patient Social History Have you traveled recently?: No Alcohol Use?: No Pt feels they are or have been: Unable to obtain Immunizations Up To Date Date of Pneumonia Vaccine: Oct 30, 2016 Date of Influenza Vaccine: Oct 08, 2022 Past Medical History PMH As described under Assessment. Family Medical History Family Medical History: Unable to obtain due to dementia Allergies and Home Medications Allergies Coded Allergies: doxycycline (Unverified Allergy, Mild, 11/26/17) Patient Home Medication List Home Medication List Reviewed: Yes Alprazolam (Xanax) 0.25 Mg Tablet, 0.25 MG PO HS, (Reported) Entered as Reported by: ABHIJEET FELIPE on 06/01/22 1114 Amitriptyline HCl (Amitriptyline HCl) 25 Mg Tablet, 25 MG PO HS, (Reported) Entered as Reported by: SREEDHAR MCMANUS on 09/26/20 1610 Amlodipine Besylate (Amlodipine Besylate) 5 Mg Tablet, 10 MG PO DAILY, (Reported) Entered as Reported by: ABHIJEET FELIPE on 11/08/22 1134 Apixaban (Eliquis) 5 Mg Tablet, 5 MG PO Q12H, (Reported) Entered as Reported by: ABHIJEET FELIPE on 02/24/21 1308 Ascorbate Calcium (Vitamin C) 500 Mg Tablet, 500 MG PO BID, (Reported) Entered as Reported by: ABHIJEET FELIPE on 06/01/22 1114 Aspirin (Aspirin) 81 Mg Tab.chew, 81 MG PO DAILY, (Reported) Entered as Reported by: ABHIJEET FELIPE on 11/08/22 1134 Cholecalciferol (Vitamin D3) (Vitamin D3) 25 Mcg (1000 Unit) Capsule, 25 MCG PO DAILY, (Reported) Entered as Reported by: ABHIJEET FELIPE on 03/28/22 1424 Citalopram Hydrobromide (Citalopram HBr) 10 Mg Tablet, 10 MG PO HS, (Reported) Entered as Reported by: ABHIJEET FELIPE on 02/24/21 1308 Docusate Sodium (Docusate Sodium) 100 Mg Capsule, 100 MG PO BID, (Reported) Entered as Reported by: ABHIJEET FELIPE on 06/01/22 1114 Fluticasone/Vilanterol (Breo Ellipta 200-25 Mcg INH) 200 Mcg-25 Mcg/Dose Blst.w.dev, 1 PUFF INH DAILY, (Reported) Entered as Reported by: ABHIJEET FELIPE on 06/01/22 1114 Furosemide (Furosemide) 40 Mg Tablet, 60 MG PO DAILY, (Reported) Entered as Reported by: ABHIJEET FELIPE on 03/28/22 1156 Gabapentin (Neurontin) 300 Mg Capsule, 300 MG PO TID, (Reported) Entered as Reported by: ABHIJEET FELIPE on 06/01/22 1114 Hydrocodone/Acetaminophen (Hydrocodone-Acetamin 5-325 mg) 5 Mg-325 Mg Tablet, 1 TAB PO Q6H PRN for PAIN-MODERATE (5-7), (Reported) Entered as Reported by: ABHIJEET FELIPE on 06/01/22 1114 Latanoprost (Xalatan) 2.5 Ml Drops, 1 DROP OU HS, (Reported) Entered as Reported by: ABHIJEET FELIPE on 09/28/20 0910 Lisinopril (Lisinopril) 20 Mg Tablet, 20 MG PO DAILY, (Reported) Entered as Reported by: ABHIJEET FELIPE on 11/08/22 1134 Magnesium Hydroxide (Milk of Magnesia) 2,400 Mg/10 Ml Oral.susp, 30 ML PO DAILY PRN for CONSTIPATION-7TH LINE, (Reported) Entered as Reported by: ABHIJEET FELIPE on 06/01/22 1114 Menthol (Biofreeze) 4 % Gel..ml., 1 APPLIC TP TID, (Reported) Entered as Reported by: ABHIJEET FELIPE on 11/08/22 1134 Menthol (Biofreeze) 4 % Gel..ml., 1 APPLIC TP DAILY PRN for PAIN BREAKTROUGH, (Reported) Entered as Reported by: ABHIJEET FELIPE on 11/08/22 1134 Metoprolol Succinate (Metoprolol Succinate) 50 Mg Tab.er.24h, 50 MG PO DAILY, (Reported) Entered as Reported by: ABHIJEET FELIPE on 11/08/22 1134 Potassium Chloride (Potassium Chloride) 20 Meq Tab.er.prt, 20 MEQ PO DAILY, (Reported) Entered as Reported by: ABHIJEET FELIPE on 03/28/22 1156 Ropinirole HCl (Ropinirole HCl) 1 Mg Tablet, 1 MG PO HS, (Reported) Entered as Reported by: ESTEFANÍA FIORE on 11/26/17 0843 Tramadol HCl (Tramadol HCl) 50 Mg Tablet, 50 MG PO Q12H PRN for PAIN-MODERATE (5-7), (Reported) Entered as Reported by: ABHIJEET FELIPE on 06/01/22 1114 Vit A/C/E/Zinc/Co (Preservision Areds Softgel) 14,320-226 Capsule, 1 CAP PO DAILY, (Reported) Entered as Reported by: ABHIJEET FELIPE on 03/28/22 1424 Physical Exam-Cardiology Physical Exam Vital Signs/I&O 11/28/22 11/28/22 11/28/22 11/29/22 23:19 23:30 23:45 00:00 Temp 36.1 Pulse 60 60 60 Resp 18 20 20 B/P (MAP) 95/50 (65) 121/54 (76) 127/64 (85) Pulse Ox 94 97 97 O2 Delivery NIV Bilevel NIV Bilevel O2 Flow Rate 50.00 FiO2 50 11/29/22 11/29/22 11/29/22 11/29/22 00:00 00:00 00:15 00:30 Pulse 64 65 60 60 Resp 14 19 18 B/P (MAP) 134/70 (91) 134/70 (95) 126/63 (88) 117/62 (85) Pulse Ox 98 99 98 97 O2 Delivery NIV Bilevel O2 Flow Rate 50.00 11/29/22 11/29/22 11/29/22 11/29/22 00:45 01:00 01:00 01:15 Pulse 60 60 60 60 Resp 18 17 20 B/P (MAP) 118/62 (84) 116/63 (84) 120/60 (81) Pulse Ox 97 100 98 11/29/22 11/29/22 11/29/22 11/29/22 01:30 01:45 02:00 02:00 Pulse 60 60 60 60 Resp 16 14 13 14 B/P (MAP) 115/59 (77) 94/51 (65) 97/53 (70) Pulse Ox 100 98 98 99 O2 Flow Rate 40.00 11/29/22 11/29/22 11/29/22 11/29/22 02:15 02:30 03:00 03:00 Pulse 60 60 60 60 Resp 20 20 18 18 B/P (MAP) 97/55 (71) 108/61 (78) 105/59 (77) 105/59 (77) Pulse Ox 100 100 100 100 11/29/22 11/29/22 11/29/22 11/29/22 03:30 04:00 04:00 04:30 Temp 36.2 Pulse 60 60 60 Resp 18 19 14 B/P (MAP) 109/56 (74) 97/45 (66) 82/46 (58) Pulse Ox 100 100 99 O2 Delivery NIV Bilevel NIV Bilevel FiO2 50 11/29/22 11/29/22 11/29/22 11/29/22 04:45 05:00 05:00 05:02 Pulse 65 71 71 60 Resp 18 18 18 18 B/P (MAP) 91/44 (60) 122/53 (76) 122/53 (73) Pulse Ox 98 99 99 99 11/29/22 11/29/22 11/29/22 11/29/22 05:15 05:23 05:30 05:45 Pulse 61 62 63 60 Resp 19 16 16 B/P (MAP) 91/37 (59) 92/37 (55) 545/ 138/68 (91) Pulse Ox 100 100 100 3/811/29/22 11/29/22 11/29/22 06:00 06:15 06:30 06:45 Pulse 60 60 60 60 Resp 19 19 21 19 B/P (MAP) 136/66 (93) 125/66 (88) 108/57 (74) 95/54 (72) Pulse Ox 100 100 100 99 O2 Flow Rate 40.00 11/29/22 11/29/22 11/29/22 11/29/22 07:00 07:00 07:00 07:05 Pulse 60 60 60 Resp 20 20 20 B/P (MAP) 95/55 (68) 95/55 (68) Pulse Ox 99 99 99 O2 Delivery NIV Bilevel NIV Bilevel NIV Bilevel O2 Flow Rate 40.00 40.00 40.00 30.00 11/29/22 11/29/22 11/29/22 11/29/22 07:05 07:15 07:25 07:30 Pulse 60 60 60 Resp 19 16 B/P (MAP) 98/54 (69) 111/64 (80) Pulse Ox 97 96 O2 Delivery NIV Bilevel NIV Bilevel O2 Flow Rate 30.00 30.00 30.00 11/29/22 11/29/22 11/29/22 11/29/22 07:45 08:00 08:00 08:45 Pulse 62 60 60 Resp 20 23 23 B/P (MAP) 119/64 (82) 128/62 (84) 128/62 (84) Pulse Ox 95 94 94 O2 Delivery NIV Bilevel NIV Bilevel NIV Bilevel Nasal Cannula O2 Flow Rate 30.00 30.00 30.00 3.11/29/22 11/29/22 11/29/22 11/29/22 09:00 09:05 10:00 11:05 Pulse 61 61 60 Resp 26 29 16 B/P (MAP) 107/70 (82) 115/61 (79) Pulse Ox 90 97 99 O2 Delivery NIV Bilevel NIV Bilevel NIV Bilevel O2 Flow Rate 30.00 30.00 30.00 11/29/22 11:06 O2 Flow Rate 21.00 11/29/22 00:00 Intake Total 150 ml Output Total 140 ml Balance 10 ml Capillary Refill : Constitutional: No AAO x 3 (oriented to self and place); well-developed, other (thin) HEENT: hard of hearing Neck: No carotid bruit; carotid pulses are 2 + bilaterally Respiratory: No accessory muscle use, No respiratory distress; other (diminished lower lobes bilat; poor inspiratory effort) Cardiovascular: irregularly irregular; No JVD; S1 and S2, systolic murmur Gastrointestinal: No tender; soft; No guarding; audible bowel sounds Extremities: no lower extremity edema bilateral Neurologic/Psychiatric: No oriented x 3; other (moves all limbs) Skin: No rash on exposed areas, No ulcerations on exposed areas Lymphatic: no adenopathy Data Review Labs Laboratory Tests 11/28/22 17:00: White Blood Count 15.9H, Red Blood Count 3.39L, Hemoglobin 7.9L, Hematocrit 27L, Mean Corpuscular Volume 79L, Mean Corpuscular Hemoglobin 23L, Mean Corpuscular Hemoglobin Concent 30L, Red Cell Distribution Width 17.3H, Platelet Count 389, Mean Platelet Volume 11.1, Immature Granulocyte % (Auto) 1, Neutrophils (%) (Auto) 79H, Lymphocytes (%) (Auto) 12, Monocytes (%) (Auto) 5, Eosinophils (%) (Auto) 3, Basophils (%) (Auto) 0, Neutrophils # (Auto) 12.6H, Lymphocytes # (Auto) 1.8, Monocytes # (Auto) 0.8, Eosinophils # (Auto) 0.5H, Basophils # (Auto) 0.1, Immature Granulocyte # (Auto) 0.1, Neutrophils % (Manual) 80, Lymphocytes % (Manual) 11, Monocytes % (Manual) 7, Eosinophils % (Manual) 2, Hypochromasia MODERATE, Poikilocytosis SLIGHT, Anisocytosis SLIGHT, Prothrombin Time 17.5H, INR Comment 1.4, Activated Partial Thromboplast Time 36H, Sodium Level 142, Potassium Level 4.2, Chloride Level 106, Carbon Dioxide Level 25, Anion Gap 11, Blood Urea Nitrogen 19H, Creatinine 0.80, Estimat Glomerular Filtration Rate 74, BUN/Creatinine Ratio 24, Glucose Level 224H, Calcium Level 8.6, Corrected Calcium 8.8, Total Bilirubin 0.7, Aspartate Amino Transf (AST/SGOT) 14, Alanine Aminotransferase (ALT/SGPT) 8, Alkaline Phosphatase 115, C-Reactive Protein High Sensitivity 5.29H, B-Type Natriuretic Peptide 1525.9H, Total Protein 6.8, Albumin 3.7 11/28/22 18:20: Influenza Type A (RT-PCR) Not Detected, Influenza Type B (RT-PCR) Not Detected, SARS-CoV-2 RNA (RT-PCR) DetectedH 11/28/22 19:15: Lactic Acid Level 1.54 11/28/22 19:45: Urine Color YELLOW, Urine Clarity SL CLOUDY, Urine pH 6.0, Urine Specific [place] >=1.030, Urine Protein 2+H, Urine Glucose (UA) NEGATIVE, Urine Ketones NEGATIVE, Urine Nitrite POSITIVEH, Urine Bilirubin NEGATIVE, Urine Urobilinogen 1.0, Urine Leukocyte Esterase 2+H, Urine RBC (Auto) 3+H, Urine RBC 25-50H, Urine WBC TNTCH, Urine Squamous Epithelial Cells RARE, Urine Crystals NONE, Urine Bacteria LARGEH, Urine Casts PRESENT, Urine Hyaline Casts 10-25H, Urine Mucus NEGATIVE, Urine Culture Indicated CULTURE PENDING 11/29/22 04:50: White Blood Count 6.3, Red Blood Count 2.96L, Hemoglobin 6.7*L, Hematocrit 23L, Mean Corpuscular Volume 79L, Mean Corpuscular Hemoglobin 23L, Mean Corpuscular Hemoglobin Concent 29L, Red Cell Distribution Width 17.2H, Platelet Count 267, Mean Platelet Volume 10.7, Immature Granulocyte % (Auto) 1, Neutrophils (%) (Auto) 92H, Lymphocytes (%) (Auto) 6L, Monocytes (%) (Auto) 1, Eosinophils (%) (Auto) 0, Basophils (%) (Auto) 0, Neutrophils # (Auto) 5.8, Lymphocytes # (Auto) 0.4L, Monocytes # (Auto) 0.1, Eosinophils # (Auto) 0.0, Basophils # (Auto) 0.0, Immature Granulocyte # (Auto) 0.0, Sodium Level 140, Potassium Level 4.3, Chloride Level 107, Carbon Dioxide Level 23, Anion Gap 10, Blood Urea Nitrogen 18, Creatinine 0.77, Estimat Glomerular Filtration Rate 78, BUN/Creatinine Ratio 23, Glucose Level 142H, Calcium Level 8.6, Corrected Calcium 9.4, Phosphorus Level 4.0, Magnesium Level 2.0, Total Bilirubin 0.6, Aspartate Amino Transf (AST/SGOT) 9, Alanine Aminotransferase (ALT/SGPT) 8, Alkaline Phosphatase 86, C-Reactive Protein High Sensitivity 5.33H, B-Type Natriuretic Peptide 2201.7H, Total Protein 5.7L, Albumin 3.0L Microbiology 11/28/22 Urine Culture - Preliminary, Resulted Escherichia coli A/P-Cardiology Assessment/Admission Diagnosis Acute on chronic resp failure - likely multi-factorial d/t acute on chronic diastolic CHF, acute on chronic exacerbation of COPD, pneumonia Pneumonia - management per medical services Anemia - undetermined etiology - management per medical services UTI - management per medical services Hypotension - requiring pressor support overnight Permanent A Fib - has been on OAC for stroke prophylaxis with Eliquis Aortic stenosis - Echo of 03/28/22 (Dr Escalera): LVEF 60-65%, severe , mild AI, mild MAC, mild MR, mild to mod TR, severe enlargement of both atria, PASP 76 mmHg - Echo on 10/09/22: LVEF 65-70%. Biatrial enlargement, mod to severe. Mild to mod MAC. Mild MR. Mod . Mild AI. PASP 70-75 mmHg Ch resp failure due to COPD - on supple oxygen Cardiac pacemaker in situ - details unknown H/o CVA Dementia Discussion and Recomendations Complex management Acute resp distress likely multi-factorial d/t acute on chr exacerbation of COPD, acute on chronic diastolic CHF, pneumonia and anemia Anemia - undetermined etiology - management per medical services - advise transfusion of at least 2 units of PRBC today - reasonable to hold Eliquis d/t suspected GIB; we advise w/u for source of bleeding be determined JED or if no source found than that Eliquis be resumed d/t risk of stroke d/t chronic a-fib Chronic a-fib - rate controlled Acute on chronic diastolic CHF - treat with diuretics as indicated and tolerated Minimal troponin elevation - likely Type 2 VT secondary to hypoxia Management of COPD and pneumonia per medical services Management of UTI per medical services Monitor lab closely Replace electrolytes as indicated We would like to thank Medical services for this consult KIA STILL MD FACP FAC CCDS Nov 29, 2022 11:17
[2022-11-29] MEDS: VANCOMYCIN INJECTION 750 MG in NS (IVPB) 250 ML IV SCH ×2 (11:30→23:05)
[2022-11-29] MEDS: MEROPENEM 500 MG/NS 100 ML IVPB IV SCH ×4 (11:30→19:07)
[2022-11-29] MEDS ORDERED: ALBU8.5H6 INH (14:06)
[2022-11-29] MEDS: RT--FLUTICASONE/SALMETEROL 232-14 (AIRDUO RespiCLICK) IH SCH ×2 (14:58→22:13)
[2022-11-29] MEDS ORDERED: FLUTICASONE/VILANTEROL 200 MCG 14'S (BREO) IH SCH (15:00)
--- NOTE | 2022-11-29 17:01 | Diagnostic Imaging Report ---
EXAMINATION: Chest 1 view HISTORY: Respiratory failure. COMPARISON: 11/28/2022. FINDINGS: There are moderate airspace opacities in the right lung, similar to prior exam. There are small pleural effusions. No pneumothorax. Heart is enlarged. A pacemaker is present. IMPRESSION: 1. Unchanged moderate airspace opacities in the right lung and small pleural effusions favored to reflect asymmetric edema but potentially pneumonia. Dictated by: Dictated on workstation # [id number]
[2022-11-29] MEDS: NOREPINEPHRINE 8 MG/250 ML 250 ML IV SCH (19:36)
[2022-11-30] MEDS: MEROPENEM 500 MG/NS 100 ML IVPB IV SCH ×6 (02:33→18:23)
[2022-11-30] MEDS: LACTATED RINGERS 1,000 ML IV SCH ×2 (02:37→15:29)
[2022-11-30 02:39] VITALS: BP 152/49
[2022-11-30] MEDS: RT-ALBUTEROL HFA 8.5 GM INHALER IH SCH ×6 (02:39→22:10)
[2022-11-30 05:11] LABS: BASOPHILS % (AUTO) 1 % (0-10); EOSINOPHILS # (AUTO) 0.1 10^3/uL (0.0-0.3); EOSINOPHILS % (AUTO) 1 % (0-10); HEMATOCRIT 24 % (35-52); HEMOGLOBIN 7.2 g/dL (11.5-16.0); LYMPHOCYTES % (AUTO) 13 % (12-44); MEAN CORPUSCULAR HEMOGLOBIN 24 pg (25-34); MEAN CORPUSCULAR HGB CONC 30 g/dL (32-36); MEAN CORPUSCULAR VOLUME 78 fL (80-99); MEAN PLATELET VOLUME 10.8 fL (9.0-12.2); MONOCYTES # (AUTO) 0.5 10^3/uL (0.0-1.0); MONOCYTES % (AUTO) 7 % (0-12); NEUTROPHILS # (AUTO) 6.1 10^3/uL (1.8-7.8); NEUTROPHILS % (AUTO) 78 % (42-75); PLATELET COUNT 286 10^3/uL (130-400); WHITE BLOOD COUNT 7.7 10^3/uL (4.3-11.0)
[2022-11-30 05:26] LABS: POTASSIUM 3.7 MMOL/L (3.6-5.0)
[2022-11-30 05:28] LABS: CALCIUM 8.4 MG/DL (8.5-10.1)
[2022-11-30 05:29] LABS: TOTAL PROTEIN 5.4 GM/DL (6.4-8.2)
[2022-11-30 05:31] LABS: BILIRUBIN,TOTAL 0.8 MG/DL (0.1-1.0)
[2022-11-30 05:32] LABS: PHOSPHORUS 3.1 MG/DL (2.3-4.7)
[2022-11-30 05:33] LABS: CREATININE SERUM 0.74 MG/DL (0.60-1.30)
[2022-11-30 05:36] LABS: MAGNESIUM 1.9 MG/DL (1.6-2.4)
[2022-11-30] MEDS: inSUlin ASPART (NovoLOG) 1 UNIT/0.01 ML (CHARGE PER UNIT) SQ SCH ×4 (05:50→20:18)
[2022-11-30] MEDS: CATHETER FLUSH 10 ML SYR IVP SCH ×3 (06:07→22:18)
[2022-11-30] MEDS: MAGNESIUM 1 GM/100 ML IVPB 100 ML IV SCH ×3 (06:15→07:24)
[2022-11-30] MEDS: POTASSIUM CL 10MEQ/50ML IVPB 50 ML IV SCH ×3 (06:15→07:24)
[2022-11-30] MEDS: KCL 20 MEQ TAB (K-DUR) PO SCH (06:15)
[2022-11-30] MEDS: RT--FLUTICASONE/SALMETEROL 232-14 (AIRDUO RespiCLICK) IH SCH ×2 (07:42→19:15)
[2022-11-30] MEDS ORDERED: FUROSEMIDE 40 MG/4 ML INJ (LASIX) IVP NR (09:30)
[2022-11-30] MEDS ORDERED: TROUGH ORDER-PHARMACY XX ONE (10:00)
--- NOTE | 2022-11-30 13:11 | Progress Note - Hospitalist ---
Subjective HPI/CC On Admission Date Seen by Provider: Nov 30, 2022 Patient is an 82-year-old female known to me from multiple recent admissions who presented to the emergency department due to shortness of breath. She is unable to provide me any history which is near her baseline given her dementia. All history is obtained from the records. She presented from her shelter due to shortness of breath who was found to have sepsis due to l ikely pneumonia and urinary tract infection. She was in acute respiratory failure and placed on BiPAP on which she remains. She was placed on IV antibiotics and admitted to the ICU. I was able to contact her son later in the day who states that 2 days ago she was feeling very well when he visited her at the shelter and that she took an abrupt turn for the worse. He did independently acknowledge that this is happening more frequently and she continues to get more sick. We discussed that this could be a sign that she is nearing the end of her life and that eventually she may get a pneumonia so severe she is unable to recover. He expresses hope that that is not this time and is hopeful she will turn around and get better. Subjective/Events-last exam Pt reports doing ok today. On 4lpm NC today. Has no complaints. Asks if I can just "hang out" with her. Focused Exam Lactate Level 11/28/22 19:15: Lactic Acid Level 1.54 Objective Exam Vital Signs Vital Signs Date Time Temp Pulse Resp B/P (MAP) Pulse Ox O2 Delivery O2 Flow Rate FiO2 11/30/22 12:51 74 11/30/22 12:00 33 148/74 (98) 90 OxyMask 4.00 11/30/22 11:01 37.1 11/30/22 03:30 25 Capillary Refill : Less Than 3 Seconds General Appearance: No Apparent Distress, Chronically ill Respiratory: No Accessory Muscle Use, Decreased Breath Sounds (in bases), Other (on 4lpm NC) Cardiovascular: No Murmur, Irregularly Irregular Gastrointestinal: Normal Bowel Sounds, Soft Neurologic/Psychiatric: Alert, Disoriented Results/Procedures Lab Laboratory Tests 11/30/22 04:08 Patient resulted labs reviewed. Imaging: Reviewed Imaging Report Assessment/Plan Assessment and Plan Assess & Plan/Chief Complaint Septic Shock- improving UTI PNA Acute on chronic respiratory failure HFpEF Did test positive for COVID but had it in October, likely not an acute infection CXR without acute abnormalities, unchanged from prior Off BiPAP Continue IV abx Negative blood cultures but urine culture with ESBL e coli DC Vanc Off pressors Lasix Cardiology consulted, appreciate recs TeleICU consulted, appreciate recs Anemia Chronic anemic Baseline in the 7-8s Hgb 7.2 this AM, repeat 1 unit again today Advanced dementia Poor prognosis skilled nursing resident, VCV Pt would benefit from palliative care HTN AFib History of CVA Continue home meds as able Hold Eliquis due to anemia DVT ppx: SCDs only due to anemia Critical Care Critically Ill Patient ABRAHAM CIFUENTES MD Nov 30, 2022 1:11 pm
--- NOTE | 2022-11-30 13:23 | Tele-ICU Progress Note ---
Subjective Date Seen by a Provider: Nov 30, 2022 Time Seen by a Provider: 13:18 Subjective/Events-last exam History of Present Illness (Tele-ICU Physician , progress note) Available chart/ vitals / labs / Images reviewed H&P is from ER notes Patient's information available about PMH, allergy reviewed in EMR. ROS as per chart and RN report Video assessment done using teleICU camera, rest of exam as per RN Discussed with RN. She is a 82-year-old female with past medical history of severe dementia congestive heart failure COPD and recurrent respiratory failure presented to the emergency room with a complaint of shortness of breath and she is found to be hypoxic requiring BiPAP ventilation. Chest x-ray showing some infiltrates but it is not clear whether this is congestive heart failure for pneumonia. She was recently hospitalized and in this [place] with the COVID- pneumonia and discharged on oxygen predominantly at nighttime. She is a DNR status. She has a severe aortic stenosis, chronic atrial fibrillation on anticoagulant therapy. She is admitted to ICU for further evaluation and management and I have made a video visit and discussed with the JET HANDLER. At this time patient is hypotensive hence I have ordered a small volume fluid bolus and if necessary Levophed to be given. She is resting comfortably on BiPAP ventilation. 11/30/22 SHE IS TODAY ON6L OXYMASK. AND TOLERATING WELL. Impression 1. Acute on chronic hypoxic respiratory failure. 2. Possible healthcare associated pneumonia 3. Severe aortic stenosis 4. Chronic atrial fibrillation 5. COVID19 pneumonia 6. Severe dementia. 7. Hypotension resolved. Recommendations 1. We will give lasix 20 mg ivp now 2. If necessary start on Levophed 3. Antibiotics per primary care physician. 4. Continue BiPAP ventilation as needed. 5. Cardiology consulted appreciated Prognosis guarded Coordination of care with the primary care physician and bedside consultants. Next Critical care time spent on this patient today approximately 20 minutes. Sepsis Event Evaluation Height, Weight, BMI Height: 5'4.00" Weight: 182lbs. 0.6oz. 77.171017xq; 25.16 BMI Method:Stated Focused Exam Lactate Level 11/28/22 19:15: Lactic Acid Level 1.54 Exam Exam Patient acknowledged, consented, and participated in this virtual visit which was conducted using real time audio/video Vital Signs Date Time Temp Pulse Resp B/P (MAP) Pulse Ox O2 Delivery O2 Flow Rate FiO2 11/30/22 12:51 74 11/30/22 12:00 72 33 148/74 (98) 90 OxyMask 4.00 11/30/22 11:06 94 OxyMask 4.00 11/30/22 11:01 37.1 11/30/22 11:00 72 32 150/53 (85) 95 OxyMask 4.00 11/30/22 10:51 OxyMask 4.00 11/30/22 10:00 69 22 118/48 (71) 97 OxyMask 6.00 11/30/22 09:00 72 33 139/42 (74) 96 OxyMask 6.00 11/30/22 08:42 OxyMask 6.00 11/30/22 08:22 35.6 Nasal Cannula 4.00 11/30/22 08:00 94 Nasal Cannula 4.00 11/30/22 08:00 61 28 149/48 (81) 94 Nasal Cannula 4.00 11/30/22 07:42 94 Nasal Cannula 4.00 11/30/22 07:42 94 Nasal Cannula 4.00 11/30/22 07:00 59 11/30/22 07:00 59 21 140/43 (75) 92 Nasal Cannula 4.00 11/30/22 06:35 94 Nasal Cannula 4.00 11/30/22 06:00 61 26 131/55 (80) 94 NIV Bilevel 25.00 11/30/22 05:00 61 25 129/52 (77) 96 NIV Bilevel 25.00 11/30/22 04:00 60 28 141/47 (78) 99 NIV Bilevel 25.00 11/30/22 03:30 96 NIV Bilevel 25 11/30/22 03:30 36.3 NIV Bilevel 25.00 11/30/22 03:00 60 20 125/56 (79) 97 NIV Bilevel 25.00 11/30/22 02:39 61 24 93 25.00 11/30/22 02:00 60 23 153/44 (80) 96 NIV Bilevel 25.00 11/30/22 01:00 61 27 153/54 (87) 96 NIV Bilevel 25.00 11/30/22 01:00 60 11/30/22 00:00 60 152/49 (83) 96 NIV Bilevel 25.00 11/29/22 23:05 93 NIV Bilevel 25 11/29/22 23:00 36.8 60 18 141/46 (77) 93 NIV Bilevel 25.00 11/29/22 22:14 60 23 92 25.00 11/29/22 22:00 71 24 121/56 (77) 98 NIV Bilevel 25.00 11/29/22 21:00 60 23 124/47 (72) 96 NIV Bilevel 25.00 11/29/22 20:00 60 28 129/50 (76) 93 NIV Bilevel 25.00 11/29/22 19:35 NIV Bilevel 25 11/29/22 19:00 60 11/29/22 19:00 37.5 60 23 120/45 (70) 95 NIV Bilevel 25.00 11/29/22 18:52 60 25 97 25.00 11/29/22 18:00 60 23 139/71 (93) 90 NIV Bilevel 30.00 11/29/22 17:58 36.1 60 16 108/59 93 NIV Bilevel 25 11/29/22 17:00 59 28 127/56 (79) 96 NIV Bilevel 30.00 11/29/22 16:00 60 22 140/56 (84) 94 NIV Bilevel 30.00 11/29/22 16:00 NIV Bilevel 30 11/29/22 15:09 36.6 60 16 127/46 95 NIV Bilevel 25 11/29/22 15:00 59 24 94 25.00 11/29/22 15:00 60 24 127/46 (73) 95 NIV Bilevel 30.00 11/29/22 14:57 36.4 60 16 124/101 94 NIV Bilevel 25 11/29/22 14:00 59 29 110/53 (72) 96 NIV Bilevel 30.00 I & O 11/30/22 07:00 Intake Total 3530 ml Output Total 1520 ml Balance 2010 ml Height & Weight Height: 5'4.00" Weight: 182lbs. 0.6oz. 77.124909bu; 25.16 BMI Method:Stated General Appearance: No Apparent Distress, Chronically ill HEENT: Other (BiPAP) Respiratory: No Accessory Muscle Use, Decreased Breath Sounds (in bases), Other (on 4lpm NC) Cardiovascular: No Murmur, Irregularly Irregular Capillary Refill: Less Than 3 Seconds Gastrointestinal: normal bowel sounds, distended; No guarding; tenderness, other (Palpable aorta) Neurologic/Psychiatric: Alert, Disoriented Other comments PE PER RN Results Lab Laboratory Tests 11/28/22 17:00 11/29/22 04:50 11/30/22 04:08 Assessment/Plan Assessment/Plan ABOVE Critical Care: Critically Ill Patient Time spent with patient (mins): 20 ROBERTH RODRÍGUEZ MD Nov 30, 2022 13:22
[2022-11-30] MEDS ORDERED: NS IV 500 ML 500 ML IV ONE (14:30)
[2022-11-30 14:48] VITALS: BP 172/51
[2022-11-30 15:11] VITALS: BP 148/74
[2022-11-30] MEDS: NOREPINEPHRINE 8 MG/250 ML 250 ML IV SCH (15:30)
[2022-11-30 17:13] VITALS: BP 183/66
--- NOTE | 2022-11-30 20:15 | Progress Note - Cardiology ---
Cardiology SOAP Progress Note Subjective: She is unable to provide any meaningful history Objective: I&O/Vital Signs 11/30/22 11/30/22 11/30/22 11/30/22 08:22 08:42 09:00 10:00 Temp 35.6 Pulse 72 69 Resp 33 22 B/P (MAP) 139/42 (74) 118/48 (71) Pulse Ox 96 97 O2 Delivery Nasal Cannula OxyMask OxyMask OxyMask O2 Flow Rate 4.00 6.00 6.00 6.00 11/30/22 11/30/22 11/30/22 11/30/22 10:40 10:51 11:00 11:01 Temp 37.1 Pulse 72 Resp 32 B/P (MAP) 150/53 (85) Pulse Ox 100 95 O2 Delivery OxyMask OxyMask OxyMask O2 Flow Rate 4.00 4.00 4.00 11/30/22 11/30/22 11/30/22 11/30/22 11:06 12:00 12:51 13:00 Pulse 72 74 68 Resp 33 29 B/P (MAP) 148/74 (98) 153/45 (81) Pulse Ox 94 90 96 O2 Delivery OxyMask OxyMask OxyMask O2 Flow Rate 4.00 4.00 4.00 11/30/22 11/30/22 11/30/22 11/30/22 14:00 14:39 14:48 15:00 Temp 35.8 Pulse 72 80 71 Resp 36 28 35 B/P (MAP) 171/63 (99) 172/51 162/72 (102) Pulse Ox 95 94 95 97 O2 Delivery OxyMask OxyMask OxyMask OxyMask O2 Flow Rate 4.00 4.00 4.00 4.00 11/30/22 11/30/22 11/30/22 11/30/22 15:11 15:28 15:37 16:00 Temp 35.8 36.8 Pulse 71 71 Resp 64 35 B/P (MAP) 148/74 179/73 (108) Pulse Ox 95 97 95 O2 Delivery OxyMask OxyMask OxyMask O2 Flow Rate 4.00 4.00 4.00 11/30/22 11/30/22 11/30/22 11/30/22 17:00 17:13 17:17 18:00 Temp 35.8 Pulse 70 62 65 Resp 28 28 26 B/P (MAP) 183/66 (105) 183/66 128/89 (102) Pulse Ox 90 92 94 O2 Delivery OxyMask OxyMask OxyMask OxyMask O2 Flow Rate 4.00 4.00 6.00 4.00 11/30/22 11/30/22 11/30/22 11/30/22 19:09 19:15 19:23 20:01 Temp 36.7 36.3 Pulse 63 Resp 32 B/P (MAP) 149/79 (102) Pulse Ox 92 92 93 O2 Delivery OxyMask Nasal Cannula OxyMask O2 Flow Rate 6.00 6.00 6.00 11/30/22 00:00 Intake Total 950 ml Output Total 770 ml Balance 180 ml Weight (Pounds): 182 Weight (Ounces): 0.6 Weight (Calculated Kilograms): 77.555845 Constitutional: No AAO x 3 (oriented to self and place); well-developed, other (thin) Respiratory: No accessory muscle use, No respiratory distress; other (di minished lower lobes bilat; poor inspiratory effort) Cardiovascular: irregularly irregular; No JVD; S1 and S2, systolic murmur Gastrointestional: No tender; soft; No guarding; audible bowel sounds Extremities: no lower extremity edema bilateral Neurologic/Psychiatric: No oriented x 3; other (moves all limbs) Skin: No rash on exposed areas, No ulcerations on exposed areas Results/Procedures: Labs Laboratory Tests 11/29/22 20:21: Glucometer 86 11/30/22 04:08: White Blood Count 7.7, Red Blood Count 3.07L, Hemoglobin 7.2L, Hematocrit 24L, Mean Corpuscular Volume 78L, Mean Corpuscular Hemoglobin 24L, Mean Corpuscular Hemoglobin Concent 30L, Red Cell Distribution Width 17.2H, Platelet Count 286, Mean Platelet Volume 10.8, Immature Granulocyte % (Auto) 1, Neutrophils (%) (Auto) 78H, Lymphocytes (%) (Auto) 13, Monocytes (%) (Auto) 7, Eosinophils (%) (Auto) 1, Basophils (%) (Auto) 1, Neutrophils # (Auto) 6.1, Lymphocytes # (Auto) 1.0, Monocytes # (Auto) 0.5, Eosinophils # (Auto) 0.1, Basophils # (Auto) 0.0, Immature Granulocyte # (Auto) 0.0, Sodium Level 141, Potassium Level 3.7, Chloride Level 108H, Carbon Dioxide Level 23, Anion Gap 10, Blood Urea Nitrogen 19H, Creatinine 0.74, Estimat Glomerular Filtration Rate 82, BUN/Creatinine Ratio 26, Glucose Level 81, Calcium Level 8.4L, Corrected Calcium 9.2, Phosphorus Level 3.1, Magnesium Level 1.9, Total Bilirubin 0.8, Aspartate Amino Transf (AST/SGOT) 8, Alanine Aminotransferase (ALT/SGPT) 7, Alkaline Phosphatase 68, Total Protein 5.4L, Albumin 3.0L 11/30/22 11:05: Glucometer 90 11/30/22 15:23: Glucometer 95 Microbiology 11/28/22 MRSA Screen - Final, Complete MRSA not isolated 11/28/22 Urine Culture - Preliminary, Resulted Escherichia coli See Comments 11/28/22 Blood Culture - Preliminary, Resulted No growth Laboratory Tests 11/29/22 04:50 11/30/22 04:08 A/P: Assessment: Acute on chronic resp failure - likely multi-factorial d/t acute on chronic diastolic CHF, acute on chronic exacerbation of COPD, pneumonia Pneumonia - management per medical services Anemia - undetermined etiology - management per medical services UTI - management per medical services Hypotension - requiring pressor support overnight Permanent A Fib - has been on OAC for stroke prophylaxis with Eliquis Aortic stenosis - Echo of 03/28/22 (Dr Escalera): LVEF 60-65%, severe , mild AI, mild MAC, mild MR, mild to mod TR, severe enlargement of both atria, PASP 76 mmHg - Echo on 10/09/22: LVEF 65-70%. Biatrial enlargement, mod to severe. Mild to mod MAC. Mild MR. Mod . Mild AI. PASP 70-75 mmHg Ch resp failure due to COPD - on supple oxygen Cardiac pacemaker in situ - details unknown H/o CVA Dementia Plan: * Complex management due to multiple comorbidities * Discussed with Dr Williamson, her attending during this hospitalization * We recommend blood transfusion to bring hemoglobin greater * Reasonable to hold Eliquis d/t suspected GIB; we advise w/u for source of bleeding be determined JED or if no source found than that Eliquis be resumed d/t risk of stroke d/t chronic a-fib * Treat with diuretics as indicated and tolerated * Management of COPD and pneumonia per medical services * Management of UTI per medical services * Monitor labs KIA STILL MD FACP FAC CCDS Nov 30, 2022 20:15
[2022-11-30 22:10] VITALS: BP 150/90
[2022-12-01] MEDS: LACTATED RINGERS 1,000 ML IV SCH ×3 (00:43→22:31)
[2022-12-01 02:31] VITALS: BP 133/70
[2022-12-01] MEDS: RT-ALBUTEROL HFA 8.5 GM INHALER IH SCH ×6 (02:31→22:45)
[2022-12-01] MEDS: MEROPENEM 500 MG/NS 100 ML IVPB IV SCH ×6 (03:50→18:07)
[2022-12-01] MEDS: MAGNESIUM 1 GM/100 ML IVPB 100 ML IV SCH (04:19)
[2022-12-01] MEDS: KCL 20 MEQ TAB (K-DUR) PO SCH (04:19)
[2022-12-01] MEDS: POTASSIUM CL 10MEQ/50ML IVPB 50 ML IV SCH ×5 (04:19→09:25)
[2022-12-01] MEDS: CATHETER FLUSH 10 ML SYR IVP SCH ×3 (04:20→22:31)
[2022-12-01 05:09] LABS: BASOPHILS % (AUTO) 0 % (0-10); EOSINOPHILS # (AUTO) 0.1 10^3/uL (0.0-0.3); EOSINOPHILS % (AUTO) 1 % (0-10); HEMATOCRIT 28 % (35-52); HEMOGLOBIN 8.8 g/dL (11.5-16.0); LYMPHOCYTES % (AUTO) 10 % (12-44); MEAN CORPUSCULAR HEMOGLOBIN 24 pg (25-34); MEAN CORPUSCULAR HGB CONC 31 g/dL (32-36); MEAN CORPUSCULAR VOLUME 78 fL (80-99); MEAN PLATELET VOLUME 10.6 fL (9.0-12.2); MONOCYTES # (AUTO) 0.8 10^3/uL (0.0-1.0); MONOCYTES % (AUTO) 7 % (0-12); NEUTROPHILS # (AUTO) 8.4 10^3/uL (1.8-7.8); NEUTROPHILS % (AUTO) 81 % (42-75); PLATELET COUNT 338 10^3/uL (130-400); WHITE BLOOD COUNT 10.4 10^3/uL (4.3-11.0)
[2022-12-01 05:37] LABS: ALBUMIN 3.3 GM/DL (3.2-4.5); POTASSIUM 3.4 MMOL/L (3.6-5.0)
[2022-12-01 05:38] LABS: CALCIUM 8.6 MG/DL (8.5-10.1)
[2022-12-01 05:41] LABS: BILIRUBIN,TOTAL 1.2 MG/DL (0.1-1.0)
[2022-12-01 05:43] LABS: CREATININE SERUM 0.62 MG/DL (0.60-1.30); PHOSPHORUS 2.3 MG/DL (2.3-4.7)
[2022-12-01] MEDS: inSUlin ASPART (NovoLOG) 1 UNIT/0.01 ML (CHARGE PER UNIT) SQ SCH ×4 (06:08→22:31)
[2022-12-01 07:25] VITALS: BP 145/80
--- NOTE | 2022-12-01 08:25 | Tele-ICU Progress Note ---
Subjective Date Seen by a Provider: Dec 01, 2022 Subjective/Events-last exam (Tele-ICU Physician , progress note) Available chart/ vitals / labs / Images reviewed H&P is from ER notes Patient's information available about PMH, allergy reviewed in EMR. ROS as per chart and RN report Video assessment done using teleICU camera, rest of exam as per RN Discussed with RN. She is a 82-year-old female with past medical history of severe dementia congestive heart failure COPD and recurrent respiratory failure presented to the emergency room with a complaint of shortness of breath and she is found to be hypoxic requiring BiPAP ventilation. Chest x-ray showing some infiltrates but it is not clear whether this is congestive heart failure for pneumonia. She was recently hospitalized and in this [place] with the COVID- pneumonia and discharged on oxygen predominantly at nighttime. She is a DNR status. She has a severe aortic stenosis, chronic atrial fibrillation on anticoagulant therapy. She is admitted to ICU for further evaluation and management and I have made a video visit and discussed with the SCALING MACHINE OPERATOR. At this time patient is hypotensive hence I have ordered a small volume fluid bolus and if necessary Levophed to be given. She is resting comfortably on BiPAP ventilation. 11/30/22 SHE IS TODAY ON6L OXYMASK. AND TOLERATING WELL. 12/01/22 yesterday she received 1 unit of prbc's and today hb is up to 8.8gm. but she is more dyspneic. now bipap with rr 30's. will give 20 mg of lasix Impression 1. Acute on chronic hypoxic respiratory failure worse. 2. Possible healthcare associated pneumonia 3. Severe aortic stenosis 4. Chronic atrial fibrillation 5. COVID19 pneumonia 6. Severe dementia. 7. Hypotension resolved. 8. anemia improved after prbc's infusion. Recommendations 1. We will give lasix 20 mg ivp q daily 2. Monitor lytes and hb 3. Antibiotics per primary care physician. 4. Continue BiPAP ventilation as needed. 5. Cardiology consulted appreciated Prognosis guarded Coordination of care with the primary care physician and bedside consultants. Next Sepsis Event Evaluation Height, Weight, BMI Height: 5'4.00" Weight: 182lbs. 0.6oz. 77.670279in; 25.16 BMI Method:Stated Focused Exam Lactate Level 11/28/22 19:15: Lactic Acid Level 1.54 Exam Exam Patient acknowledged, consented, and participated in this virtual visit which was conducted using real time audio/video Vital Signs Date Time Temp Pulse Resp B/P (MAP) Pulse Ox O2 Delivery O2 Flow Rate FiO2 12/01/22 08:00 71 29 152/81 (104) 98 NIV Bilevel 35.00 12/01/22 07:44 99 NIV Bilevel 35 12/01/22 07:26 36.6 12/01/22 07:25 61 28 98 35.00 12/01/22 07:00 60 12/01/22 07:00 60 26 145/80 (101) 98 NIV Bilevel 35.00 12/01/22 06:00 64 29 139/67 (91) 98 NIV Bilevel 35.00 12/01/22 05:00 60 21 126/67 (86) 97 NIV Bilevel 35.00 12/01/22 04:00 36.3 12/01/22 04:00 96 NIV Bilevel 35 12/01/22 04:00 69 22 144/73 (96) 96 NIV Bilevel 35.00 12/01/22 03:00 60 22 134/64 (87) 98 NIV Bilevel 35.00 12/01/22 02:31 64 30 91 35.00 12/01/22 02:00 60 24 133/70 (91) 97 NIV Bilevel 35.00 12/01/22 01:00 68 36 157/83 (107) 93 NIV Bilevel 35.00 12/01/22 01:00 65 12/01/22 00:00 61 31 146/69 (94) 96 NIV Bilevel 35.00 12/01/22 00:00 36.6 11/30/22 23:59 95 NIV Bilevel 35 11/30/22 23:53 NIV Bilevel 35.00 11/30/22 23:34 97 NIV Bilevel 45.00 11/30/22 23:00 69 29 131/63 (85) 92 OxyMask 6.00 11/30/22 22:10 64 29 91 25.00 11/30/22 22:00 67 13 151/77 (101) 96 OxyMask 6.00 11/30/22 21:00 77 20 144/92 (109) 98 OxyMask 6.00 11/30/22 20:01 36.3 3/9/23 20:00 77 20 143/73 (96) 92 OxyMask 6.00 11/30/22 20:00 96 OxyMask 6.00 11/30/22 19:23 36.7 63 32 149/79 (102) 93 OxyMask 6.00 11/30/22 19:15 92 Nasal Cannula 6.00 11/30/22 19:09 92 OxyMask 6.00 11/30/22 19:00 63 11/30/22 19:00 63 36 135/80 (98) 92 OxyMask 4.00 11/30/22 18:00 65 26 128/89 (102) 94 OxyMask 4.00 11/30/22 17:17 OxyMask 6.00 11/30/22 17:13 35.8 62 28 183/66 92 OxyMask 4.00 11/30/22 17:00 70 28 183/66 (105) 90 OxyMask 4.00 11/30/22 16:00 71 35 179/73 (108) 95 OxyMask 4.00 11/30/22 15:37 97 OxyMask 4.00 11/30/22 15:28 36.8 11/30/22 15:11 35.8 71 64 148/74 95 OxyMask 4.00 11/30/22 15:00 71 35 162/72 (102) 97 OxyMask 4.00 11/30/22 14:48 35.8 80 28 172/51 95 OxyMask 4.00 11/30/22 14:39 94 OxyMask 4.00 11/30/22 14:00 72 36 171/63 (99) 95 OxyMask 4.00 11/30/22 13:00 68 29 153/45 (81) 96 OxyMask 4.00 11/30/22 12:51 74 11/30/22 12:00 72 33 148/74 (98) 90 OxyMask 4.00 11/30/22 11:06 94 OxyMask 4.00 11/30/22 11:01 37.1 11/30/22 11:00 72 32 150/53 (85) 95 OxyMask 4.00 11/30/22 10:51 OxyMask 4.00 11/30/22 10:40 100 OxyMask 4.00 11/30/22 10:00 69 22 118/48 (71) 97 OxyMask 6.00 11/30/22 09:00 72 33 139/42 (74) 96 OxyMask 6.00 11/30/22 08:42 OxyMask 6.00 I & O 12/01/22 07:00 Intake Total 2395 ml Output Total 2185 ml Balance 210 ml Height & Weight Height: 5'4.00" Weight: 182lbs. 0.6oz. 77.817669bn; 25.16 BMI Method:Stated General Appearance: No Apparent Distress, Chronically ill HEENT: Other (BiPAP) Respiratory: No Accessory Muscle Use, Decreased Breath Sounds (in bases), Other (on 4lpm NC) Cardiovascular: No Murmur, Irregularly Irregular Capillary Refill: Less Than 3 Seconds Gastrointestinal: normal bowel sounds, distended; No guarding; tenderness, other (Palpable aorta) Neurologic/Psychiatric: Alert, Disoriented Other comments PE PER RN Results Lab Laboratory Tests 11/30/22 04:08 12/01/22 04:30 Assessment/Plan Assessment/Plan ABOVE Critical Care: Critically Ill Patient Time spent with patient (mins): 15 ROBERTH RODRÍGUEZ MD Dec 01, 2022 08:25
--- NOTE | 2022-12-01 08:43 | Progress Note - Hospitalist ---
Subjective HPI/CC On Admission Date Seen by Provider: Dec 01, 2022 Patient is an 82-year-old female known to me from multiple recent admissions who presented to the emergency department due to shortness of breath. She is unable to provide me any history which is near her baseline given her dementia. All history is obtained from the records. She presented from her residential due to shortness of breath who was found to have sepsis due to likely pneumonia and urinary tract infection. She was in acute respiratory failure and placed on BiPAP on which she remains. She was placed on IV antibiotics and admitted to the ICU. I was able to contact her son later in the day who states that 2 days ago she was feeling very well when he visited her at the residential and that she took an abrupt turn for the worse. He did independently acknowledge that this is happening more frequently and she continues to get more sick. We discussed that this could be a sign that she is nearing the end of her life and that eventually she may get a pneumonia so severe she is unable to recover. He expresses hope that that is not this time and is hopeful she will turn around and get better. Subjective/Events-last exam Pt on BiPAP. Seems very anxious. Grasping bed rail tightly. Tells me she does not like BiPAP. Offered palliative care and she did not respond when asked about this. Focused Exam Lactate Level 11/28/22 19:15: Lactic Acid Level 1.54 Objective Exam Vital Signs Vital Signs Date Time Temp Pulse Resp B/P (MAP) Pulse Ox O2 Delivery O2 Flow Rate FiO2 12/01/22 08:00 71 29 152/81 (104) 98 NIV Bilevel 35.00 12/01/22 07:44 35 12/01/22 07:26 36.6 Capillary Refill : Less Than 3 Seconds General Appearance: No Apparent Distress, WD/WN Respiratory: Lungs Clear, No Respiratory Distress Cardiovascular: Regular Rate, Rhythm, No Murmur Gastrointestinal: Normal Bowel Sounds, Soft Genital/Rectal: Other (catheter with blodo tinged urine) Extremity: No Pedal Edema Neurologic/Psychiatric: Alert, Disoriented Results/Procedures Lab Laboratory Tests 12/01/22 04:30 Patient resulted labs reviewed. Imaging: Reviewed Imaging Report Assessment/Plan Assessment and Plan Assess & Plan/Chief Complaint Septic Shock- improving UTI PNA Acute on chronic respiratory failure HFpEF Did test positive for COVID but had it in October, likely not an acute infection CXR without acute abnormalities, unchanged from prior Back on BiPAP Continue IV abx Negative blood cultures but urine culture with ESBL e coli [facility] Cardiology consulted, appreciate recs TeleICU consulted, appreciate recs Anemia Chronic anemic Baseline in the 7-8s Hgb 8.8 after 2 units pRBCs Does not seem to have an acute blood Advanced dementia Poor prognosis group home resident, VCV Pt would benefit from palliative care HTN AFib History of CVA Continue home meds as able Hold Eliquis due to anemia If hemoglobin remains stable tomorrow will try and resume Eliquis over the weekend DVT ppx: SCDs only due to anemia Critical Care Critically Ill Patient ABRAHAM CIFUENTES MD Dec 01, 2022 08:43
[2022-12-01] MEDS ORDERED: FUROSEMIDE 40 MG/4 ML INJ (LASIX) IVP SCH (09:00)
[2022-12-01] MEDS: LORazepam INJ 2 MG/ML (ATIVAN) VIAL IVP PRN (09:00)
[2022-12-01] MEDS: RT--FLUTICASONE/SALMETEROL 232-14 (AIRDUO RespiCLICK) IH SCH ×2 (11:05→22:45)
[2022-12-01] MEDS ORDERED: DexMEDEtomidine 250 ML DRIP 250 ML IV ONE (12:12)
[2022-12-01] MEDS: DexMEDEtomidine 250 ML DRIP 250 ML IV SCH (12:14)
--- NOTE | 2022-12-01 12:21 | Cardiology Progress Note ---
Subjective Date Seen by Provider: Dec 01, 2022 Time Seen by Provider: 11:20 Subjective/Events-last exam No acute issues overnight. Pt with BiPAP on. S/p 2u prBCS with improvement in Hgb to 8.8. Focused Exam Lactate Level 11/28/22 19:15: Lactic Acid Level 1.54 Objective-Cardiology Exam Last Set of Vital Signs Vital Signs 12/01/22 12/01/22 12/01/22 07:44 11:59 12:00 Temp 36.8 Pulse 61 Resp 33 B/P (MAP) 134/79 (97) Pulse Ox 99 O2 Delivery NIV Bilevel O2 Flow Rate 35.00 FiO2 35 I&O Intake and Output 12/01/22 00:00 Intake Total 2820 ml Output Total 2360 ml Balance 460 ml Intake Oral 1190 ml IV Total 1630 ml Output Urine Total 2360 ml # Bowel Movements 5 Other physical findings Gen: No acute distress;' A+O x 3, sitting comfortably in the bed with BiPAP in place Neck: soft supple, no cervical LAD Luns: CTA-bilaterally, no wheezing or rhonchi; + rales in bases CV: nl s1/s2, no g-r, RRR; harsh 4.6 sys murmur at RSB; s2 preserved Abd: soft nt nd, no HSM, + BS Ext: wwp, no c-c-e; 2+ DP and femoral pulses skin: no lesions rashes or ecchymoses are noted. 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 ## Acute on chronic resp failure-- likely multi-factorial d/t acute on chronic diastolic CHF, acute on chronic exacerbation of COPD, pneumonia - increase lasix to 40 iv bid for now, was +710 cc yesterday and is +2.4L for hospital stay, given ongoing need for BiPAP - cont meropenem-? should we add vanc for ? pneumonia as well (defer to hospitalist) ## Pneumonia - management per medical services ## Anemia; unknown etiology, baseline Hgb in 8s but drop to 6.7 on admit; pt was on Eliquis, which is currently being held - MCV 78; whould we consider an anemia workup - will send off labs, also get stool quiac - for now, agree with hold eliquis; pt at his risk for repeat CVA given her hx of CVA so would like to get anemia issue sorted; if unable to, compromise may be ASA . ##UTI; Ecoli in UCx on sens to carbapenem and gent - cont meropenem; - BCx no growth to date ## Hypotension, resolved. SBPs 120-150 - cont to monitor ## Permanent A Fib- currently in NSR, Eliquis held secondary to transfusion need - plan as above in anemia section Aortic stenosis - Echo of 03/28/22 (Dr Escalera): LVEF 60-65%, severe , mild AI, mild MAC, mild MR, mild to mod TR, severe enlargement of both atria, PASP 76 mmHg - Echo on 10/09/22: LVEF 65-70%. Biatrial enlargement, mod to severe. Mild to mod MAC. Mild MR. Mod . Mild AI. PASP 70-75 mmHg ## Cardiac pacemaker in situ - details unknown ## H/o CVA ## Dementia ADITI CARMONA MD Dec 01, 2022 12:21
[2022-12-01] MEDS: NOREPINEPHRINE 8 MG/250 ML 250 ML IV SCH (12:43)
[2022-12-01] MEDS ORDERED: HALOPERIDOL 5 MG/ML (HALDOL) VIAL ONE (14:30)
[2022-12-01] MEDS ORDERED: HALOPERIDOL 5 MG/ML (HALDOL) VIAL IM ONE (14:30)
[2022-12-01] MEDS ORDERED: PROCHLORPERAZINE 10 MG/2ML INJ (COMPAZINE) IV PRN (14:30)
[2022-12-02] MEDS: RT-ALBUTEROL HFA 8.5 GM INHALER IH SCH ×5 (02:22→19:20)
[2022-12-02 03:03] VITALS: BP 137/77
[2022-12-02] MEDS: MEROPENEM 500 MG/NS 100 ML IVPB IV SCH ×6 (03:20→18:38)
[2022-12-02 05:21] LABS: BASOPHILS % (AUTO) 1 % (0-10); EOSINOPHILS # (AUTO) 0.3 10^3/uL (0.0-0.3); EOSINOPHILS % (AUTO) 5 % (0-10); HEMATOCRIT 28 % (35-52); HEMOGLOBIN 8.5 g/dL (11.5-16.0); LYMPHOCYTES # (AUTO) 0.7 10^3/uL (1.0-4.0); LYMPHOCYTES % (AUTO) 12 % (12-44); MEAN CORPUSCULAR HEMOGLOBIN 24 pg (25-34); MEAN CORPUSCULAR HGB CONC 31 g/dL (32-36); MEAN CORPUSCULAR VOLUME 78 fL (80-99); MEAN PLATELET VOLUME 10.8 fL (9.0-12.2); MONOCYTES # (AUTO) 0.5 10^3/uL (0.0-1.0); MONOCYTES % (AUTO) 9 % (0-12); NEUTROPHILS # (AUTO) 4.1 10^3/uL (1.8-7.8); NEUTROPHILS % (AUTO) 74 % (42-75); PLATELET COUNT 320 10^3/uL (130-400); WHITE BLOOD COUNT 5.6 10^3/uL (4.3-11.0)
[2022-12-02 05:32] LABS: ALBUMIN 2.9 GM/DL (3.2-4.5); POTASSIUM 3.7 MMOL/L (3.6-5.0)
[2022-12-02 05:34] LABS: CALCIUM 8.4 MG/DL (8.5-10.1)
[2022-12-02 05:35] LABS: TOTAL PROTEIN 5.1 GM/DL (6.4-8.2)
[2022-12-02 05:38] LABS: CREATININE SERUM 0.54 MG/DL (0.60-1.30); PHOSPHORUS 2.6 MG/DL (2.3-4.7)
[2022-12-02 05:42] LABS: MAGNESIUM 1.9 MG/DL (1.6-2.4)
[2022-12-02] MEDS: MAGNESIUM 1 GM/100 ML IVPB 100 ML IV SCH ×3 (06:30→06:40)
[2022-12-02] MEDS: POTASSIUM CL 10MEQ/50ML IVPB 50 ML IV SCH ×3 (06:30→06:40)
[2022-12-02] MEDS: CATHETER FLUSH 10 ML SYR IVP SCH ×3 (06:40→22:30)
[2022-12-02] MEDS: KCL 20 MEQ TAB (K-DUR) PO SCH (06:41)
[2022-12-02] MEDS: inSUlin ASPART (NovoLOG) 1 UNIT/0.01 ML (CHARGE PER UNIT) SQ SCH ×4 (06:41→21:34)
[2022-12-02 07:12] VITALS: BP 116/80
[2022-12-02 07:59] LABS: ABSOLUTE RETIC # 63 10e9/uL (24-90); BASOPHILS % (AUTO) 1 % (0-10); EOSINOPHILS # (AUTO) 0.2 10^3/uL (0.0-0.3); EOSINOPHILS % (AUTO) 4 % (0-10); HEMATOCRIT 28 % (35-52); HEMOGLOBIN 8.5 g/dL (11.5-16.0); LYMPHOCYTES # (AUTO) 0.7 10^3/uL (1.0-4.0); LYMPHOCYTES % (AUTO) 13 % (12-44); MEAN CORPUSCULAR HEMOGLOBIN 24 pg (25-34); MEAN CORPUSCULAR HGB CONC 31 g/dL (32-36); MEAN CORPUSCULAR VOLUME 78 fL (80-99); MEAN PLATELET VOLUME 10.4 fL (9.0-12.2); MONOCYTES # (AUTO) 0.4 10^3/uL (0.0-1.0); MONOCYTES % (AUTO) 8 % (0-12); NEUTROPHILS # (AUTO) 4.2 10^3/uL (1.8-7.8); NEUTROPHILS % (AUTO) 74 % (42-75); PLATELET COUNT 300 10^3/uL (130-400); RETICULOCYTE % 1.78 % (0.50-2.40); WHITE BLOOD COUNT 5.6 10^3/uL (4.3-11.0)
[2022-12-02 08:13] LABS: ANISOCYTOSIS MODERATE; BAND NEUTROPHILS 0 %; BASOPHILS % (MANUAL) 1 %; EOSINOPHILS % (MANUAL) 3 %; HYPOCHROMASIA MODERATE; LYMPHOCYTES % (MANUAL) 10 %; MONOCYTES % (MANUAL) 7 %; NEUTROPHILS % (MANUAL) 79 %; POLYCHROMASIA SLIGHT
[2022-12-02 08:14] LABS: ELLIPT/OVALOCYTES SLIGHT; SCHISTOCYTES SLIGHT
--- NOTE | 2022-12-02 08:20 | Diagnostic Imaging Report ---
EXAMINATION: Chest 1 view HISTORY: Dyspnea. Followup. COMPARISON: 11/29/2022. FINDINGS: Increasing hazy opacities are seen in the mid and lower right lung. Stable cardiomegaly with central pulmonary vascular congestion with stable right pectoral dual-chamber pacemaker. No evidence of pneumothorax. IMPRESSION: 1. Increasing hazy opacities in the mid and lower right lung which represent increasing pleural effusion and/or pulmonary edema. 2. Persistent cardiomegaly with central pulmonary vascular congestion. Dictated by: Dictated on workstation # [id number]
[2022-12-02] MEDS: LACTATED RINGERS 1,000 ML IV SCH ×2 (08:31→19:25)
--- NOTE | 2022-12-02 09:08 | Tele-ICU Progress Note ---
Subjective Date Seen by a Provider: Dec 02, 2022 Subjective/Events-last exam This virtual visit was conducted using real time audio/video. Thank you for asking us to see this patient for respiratory insufficiency due to pna/CHF/COPD exacerbation. PE: VSS. O2 sat 100% on 6 LPM. HEENT: No obvious masses, adenopathy or JVD. Chest: clear to auscultation. CV: Paced rhythm S1 S2 loud systolic murmur. Abd: Non-tender. Bowel sounds Y. : Unremarkable. Chavis Y. [employer] CONSULTANT/psychiatric: Grossly intact. No obvious focal findings. Extremities: No edema. Capillary refill < 3 seconds. Skin: unremarkable. Results: Decreased Hb 8.5. CXR: .R infilt., pacemaker, hyperinflated, small B effs. Available chart/ vitals / labs / images reviewed. Video assessment done using teleICU camera, rest of exam as per RN. A/P: Respiratory insufficiency: Continue present management withPRN BiPAP, airduo, albut/. Precedex. Monitor for increasing oxygenation needs and/or need for intubation. Critical Care: critically ill patient. Cont. Lasix, abx, SSI. Eliquis held. Discussed with RN Razia. Asked RN to reach out to eICU if any questions or concerns later. Time spent with patient/coordination of care with other health professionals (mins): 20 Sepsis Event Evaluation Height, Weight, BMI Height: 5'4.00" Weight: 182lbs. 0.6oz. 77.463851ah; 25.16 BMI Method:Stated Exam Exam Patient acknowledged, consented, and participated in this virtual visit which wa s conducted using real time audio/video Vital Signs Date Time Temp Pulse Resp B/P (MAP) Pulse Ox O2 Delivery O2 Flow Rate FiO2 12/02/22 08:10 100 NIV Bilevel 35.00 12/02/22 08:00 60 22 121/68 (91) 100 NIV Bilevel 50.00 12/02/22 07:50 100 NIV Bilevel 50.00 12/02/22 07:30 100 NIV Bilevel 70.00 12/02/22 07:12 64 34 94 100.00 12/02/22 07:10 79 NIV Bilevel 100.00 12/02/22 07:00 61 19 116/80 (89) 92 Nasal Cannula 6.00 12/02/22 07:00 61 12/02/22 06:00 60 25 148/74 (98) 95 Nasal Cannula 6.00 12/02/22 05:00 60 22 136/76 (96) 95 Nasal Cannula 6.00 12/02/22 04:00 97 Nasal Cannula 6.00 12/02/22 04:00 36.4 12/02/22 04:00 60 24 147/76 (99) 93 Nasal Cannula 6.00 12/02/22 03:03 60 94 12/02/22 03:00 60 20 143/73 (96) 93 Nasal Cannula 6.00 12/02/22 02:22 94 Nasal Cannula 6.00 12/02/22 02:00 60 130/73 (92) 99 Nasal Cannula 6.00 12/02/22 01:00 60 12/02/22 01:00 60 25 144/76 (98) 91 Nasal Cannula 6.00 12/02/22 00:00 60 24 137/77 (97) 94 Nasal Cannula 6.00 12/01/22 23:59 97 Nasal Cannula 6.00 12/01/22 23:00 64 24 145/78 (100) 95 Nasal Cannula 6.00 12/01/22 22:45 96 Nasal Cannula 6.00 12/01/22 22:00 60 24 139/75 (96) 90 Nasal Cannula 6.00 12/01/22 21:00 60 29 134/72 (92) 100 Nasal Cannula 6.00 12/01/22 20:00 97 Nasal Cannula 6.00 12/01/22 20:00 60 19 154/73 (100) 89 Nasal Cannula 6.00 12/01/22 19:26 36.2 12/01/22 19:15 89 Nasal Cannula 6.00 12/01/22 19:00 60 12/01/22 19:00 60 14 122/66 (84) 98 Nasal Cannula 6.00 12/01/22 18:00 61 24 139/72 (94) 97 Nasal Cannula 6.00 12/01/22 17:00 115 25 116/63 (80) 99 Nasal Cannula 6.00 12/01/22 16:18 60 151/94 12/01/22 16:00 60 14 114/64 (81) 99 Nasal Cannula 6.00 12/01/22 15:41 36.6 12/01/22 15:35 97 Nasal Cannula 6.00 12/01/22 15:25 Nasal Cannula 6.00 12/01/22 15:00 60 21 151/94 (113) 98 NIV Bilevel 35.00 12/01/22 14:48 92 Nasal Cannula 6.00 12/01/22 14:00 60 27 139/90 (100) 99 NIV Bilevel 35.00 12/01/22 13:34 76 160/95 12/01/22 13:00 62 29 133/82 (105) 93 NIV Bilevel 35.00 12/01/22 12:44 65 150/85 12/01/22 12:40 60 12/01/22 12:18 98 NIV Bilevel 35 12/01/22 12:14 61 134/79 12/01/22 12:00 61 33 134/79 (97) 99 NIV Bilevel 35.00 12/01/22 11:59 36.8 12/01/22 11:17 NIV Bilevel 35.00 12/01/22 11:07 90 Nasal Cannula 6.00 12/01/22 11:06 OxyMask 6.00 12/01/22 11:06 92 OxyMask 6.00 12/01/22 11:00 86 21 175/84 (114) 96 NIV Bilevel 35.00 12/01/22 10:00 63 31 131/68 (89) 96 NIV Bilevel 35.00 I & O 12/02/22 07:00 Intake Total 620 ml Output Total 3400 ml Balance -2780 ml Height & Weight Height: 5'4.00" Weight: 182lbs. 0.6oz. 77.545306tw; 25.16 BMI Method:Stated General Appearance: No Apparent Distress, Chronically ill HEENT: Other (BiPAP) Respiratory: No Accessory Muscle Use, Decreased Breath Sounds (in bases), Other (on 4lpm NC) Cardiovascular: No Murmur, Irregularly Irregular Capillary Refill: Less Than 3 Seconds Gastrointestinal: normal bowel sounds, distended; No guarding; tenderness, other (Palpable aorta) Extremity: No Pedal Edema Neurologic/Psychiatric: Alert, Disoriented Results Lab Laboratory Tests 12/01/22 04:30 12/02/22 04:40 Assessment/Plan Assessment/Plan See free text. Critical Care: Critically Ill Patient SHAQ RICHARD MD Dec 02, 2022 09:08
[2022-12-02] MEDS: NOREPINEPHRINE 8 MG/250 ML 250 ML IV SCH (09:34)
[2022-12-02] MEDS: FUROSEMIDE 40 MG/4 ML INJ (LASIX) IVP SCH (09:34)
--- NOTE | 2022-12-02 09:34 | Cardiology Progress Note ---
Subjective Date Seen by Provider: Dec 02, 2022 Time Seen by Provider: 07:45 Subjective/Events-last exam No acute issues overnight. Pt went from BiPAP to NC and then asked to be placed back on BiPAP for respiratory distress. Objective-Cardiology Exam Last Set of Vital Signs Vital Signs 12/01/22 12/02/22 12:18 09:00 Pulse 60 Resp 20 B/P (MAP) 127/69 (98) Pulse Ox 100 O2 Delivery NIV Bilevel O2 Flow Rate 35.00 FiO2 35 I&O Intake and Output 12/02/22 00:00 Intake Total 1745 ml Output Total 3525 ml Balance -1780 ml Intake Oral 345 ml IV Total 1400 ml Output Urine Total 3525 ml # Bowel Movements 2 Other physical findings Gen: No acute distress;' A+O x 3, resting comfortably in the bed with BiPAP on . Neck: soft supple, no cervical LAD Luns: CTA-bilaterally, no wheezing or rhonchi; + rales in bases CV: nl s1/s2, no g-r, RRR; harsh 4.6 sys murmur at RSB; s2 preserved Abd: soft nt nd, no HSM, + BS Ext: wwp, no c-c-e; 2+ DP and femoral pulses skin: no lesions rashes or ecchymoses are noted. Results Lab Laboratory Tests 12/02/22 04:40 A/P-Cardiology Assessment/Plan 82F with hx of COVID +, PAF, COPD, CVA, DNR status, mode-sev , and severe dementia /snf resident who presented with complaints of dyspnea. ## Acute on chronic resp failure-- likely multi-factorial d/t acute on chronic diastolic CHF, acute on chronic exacerbation of COPD, pneumonia - cont lasix 40 iv qd for now. UOP: 2.5L overnight, now -415 cc for entire hospital stay. - f/u CXR today - cont meropenem-for pneumonia as well; vanc was on initially and has been discontinued. ## Pneumonia - management per medical services ## Anemia; unknown etiology, baseline Hgb in 8s but drop to 6.7 on admit; pt was on Eliquis, which is currently being held - MCV 78; anemia workup sent. probably not a good endoscopy candidate, may consider tagged RBC scan but bleeding may not be brisk enough to identify source - for now, agree with hold eliquis; pt at his risk for repeat CVA given her hx of CVA so would like to get anemia issue sorted; if unable to, compromise may be ASA . - start ASA 81m gpo QD, Hgb stable at 8.5 this Am ##UTI; Ecoli in UCx on sens to carbapenem and gent - cont meropenem; - BCx no growth to date ## Hypotension, resolved. SBPs 130-140s - cont to monitor ## Permanent A Fib- currently in NSR, Eliquis held secondary to transfusion need - plan as above in anemia section ## Moderate to severe Aortic stenosis - Echo of 03/28/22 (Dr Escalera): LVEF 60-65%, severe , mild AI, mild MAC, mild MR, mild to mod TR, severe enlargement of both atria, PASP 76 mmHg - Echo on 10/09/22: LVEF 65-70%. Biatrial enlargement, mod to severe. Mild to mod MAC. Mild MR. Mod . Mild AI. PASP 70-75 mmHg ## Cardiac pacemaker in situ - details unknown ## H/o CVA ## Dementia ADITI CARMONA MD Dec 02, 2022 09:34
[2022-12-02] MEDS: RT--FLUTICASONE/SALMETEROL 232-14 (AIRDUO RespiCLICK) IH SCH ×2 (11:00→22:31)
[2022-12-02] MEDS: DexMEDEtomidine 250 ML DRIP 250 ML IV SCH ×3 (11:20→15:33)
--- NOTE | 2022-12-02 11:21 | Progress Note - Hospitalist ---
Subjective HPI/CC On Admission Date Seen by Provider: Dec 02, 2022 Patient is an 82-year-old female known to me from multiple recent admissions who presented to the emergency department due to shortness of breath. She is unable to provide me any history which is near her baseline given her dementia. All history is obtained from the records. She presented from her assisted due to shortness of breath who was found to have sepsis due to likely pneumonia and urinary tract infection. She was in acute respiratory failure and placed on BiPAP on which she remains. She was placed on IV antibiotics and admitted to the ICU. I was able to contact her son later in the day who states that 2 days ago she was feeling very well when he visited her at the assisted and that she took an abrupt turn for the worse. He did independently acknowledge that this is happening more frequently and she continues to get more sick. We discussed that this could be a sign that she is nearing the end of her life and that eventually she may get a pneumonia so severe she is unable to recover. He expresses hope that that is not this time and is hopeful she will turn around and get better. Subjective/Events-last exam Pt back on BiPAP and also on precedex. Tried to take her mask off while I was in the room. Held patient's hand and helped calm her back down. Unable to provide any ROS. RN reports she had some respiratory distress early in AM requiring BiPAP. I called and spoke with her son regarding this. He is hopeful she will turn around still. I informed him of my concern that after 4-5 days of aggressive treatment and her not making progress I was worried she may not recover. He does verbalize that at some point she will likely be so sick she cannot recover and that he has seen how she not gotten back to her baseline and declined every time she has been sick. Despite this he states he wants to continue with current treatment and seeing if she can get better. He is also concerned about her nutrition. Discussed importance of balancing keeping her breathing safely with allowing her to eat. He plans to be here around noon so he can help her eat lunch if she is doing well enough to trial off BiPAP. Objective Exam Vital Signs Vital Signs Date Time Temp Pulse Resp B/P (MAP) Pulse Ox O2 Delivery O2 Flow Rate FiO2 12/02/22 10:00 61 24 136/47 (97) Nasal Cannula 6.00 311/23 09:00 100 12/02/22 08:00 36.2 12/01/22 12:18 35 Capillary Refill : Less Than 3 Seconds General Appearance: Anxious, Chronically ill Respiratory: No Accessory Muscle Use, Decreased Breath Sounds, Other (on BiPAP) Cardiovascular: Regular Rate, Rhythm Gastrointestinal: Normal Bowel Sounds, Soft Neurologic/Psychiatric: Alert, Disoriented Results/Procedures Lab Laboratory Tests 12/02/22 04:40 Patient resulted labs reviewed. Imaging: Reviewed Imaging Report Assessment/Plan Assessment and Plan Assess & Plan/Chief Complaint Septic Shock- improving UTI PNA Acute on chronic respiratory failure HFpEF Did test positive for COVID but had it in October, likely not an acute infection CXR without acute abnormalities, unchanged from prior Back on BiPAP this AM Continue IV abx Off Vanc as MRSA screen negative Negative blood cultures but urine culture with ESBL e coli Lasix Cardiology consulted, appreciate recs TeleICU consulted, appreciate recs Precedex prn to tolerate BiPAP Anemia Chronic anemic Baseline in the 7-8s Hgb 8.5 after 2 units pRBCs and stable Does not seem to have an acute blood loss Consider tagged pRBC study Advanced dementia Poor prognosis residential resident, VCV Pt would benefit from palliative care- as discussed above son is not ready for that transition HTN AFib History of CVA Continue home meds as able Hold Eliquis due to anemia Discussed with cardiology- trialling on aspirin DVT ppx: SCDs only due to anemia Critical Care Critically Ill Patient ABRAHAM CIFUENTES MD Dec 02, 2022 11:21
[2022-12-02 15:11] VITALS: BP 122/61
[2022-12-02] MEDS: LORazepam INJ 2 MG/ML (ATIVAN) VIAL IVP PRN (20:38)
[2022-12-02 22:31] VITALS: BP 140/76
[2022-12-03 03:10] VITALS: BP 141/73
[2022-12-03] MEDS: MEROPENEM 500 MG/NS 100 ML IVPB IV SCH ×6 (04:13→18:56)
[2022-12-03 04:45] LABS: BASOPHILS % (AUTO) 1 % (0-10); EOSINOPHILS # (AUTO) 0.5 10^3/uL (0.0-0.3); EOSINOPHILS % (AUTO) 7 % (0-10); HEMATOCRIT 30 % (35-52); LYMPHOCYTES # (AUTO) 0.9 10^3/uL (1.0-4.0); LYMPHOCYTES % (AUTO) 14 % (12-44); MEAN CORPUSCULAR HEMOGLOBIN 24 pg (25-34); MEAN CORPUSCULAR HGB CONC 30 g/dL (32-36); MEAN CORPUSCULAR VOLUME 78 fL (80-99); MEAN PLATELET VOLUME 10.4 fL (9.0-12.2); MONOCYTES # (AUTO) 0.6 10^3/uL (0.0-1.0); MONOCYTES % (AUTO) 9 % (0-12); NEUTROPHILS # (AUTO) 4.5 10^3/uL (1.8-7.8); NEUTROPHILS % (AUTO) 69 % (42-75); PLATELET COUNT 344 10^3/uL (130-400); WHITE BLOOD COUNT 6.5 10^3/uL (4.3-11.0)
[2022-12-03 04:54] LABS: ALBUMIN 2.9 GM/DL (3.2-4.5); POTASSIUM 3.7 MMOL/L (3.6-5.0)
[2022-12-03 04:55] LABS: CALCIUM 8.5 MG/DL (8.5-10.1)
[2022-12-03 04:56] LABS: TOTAL PROTEIN 5.3 GM/DL (6.4-8.2)
[2022-12-03 04:58] LABS: BILIRUBIN,TOTAL 0.8 MG/DL (0.1-1.0)
[2022-12-03 05:00] LABS: CREATININE SERUM 0.58 MG/DL (0.60-1.30); PHOSPHORUS 3.2 MG/DL (2.3-4.7)
[2022-12-03 05:03] LABS: MAGNESIUM 2.1 MG/DL (1.6-2.4)
[2022-12-03] MEDS: MAGNESIUM 1 GM/100 ML IVPB 100 ML IV SCH (05:23)
[2022-12-03] MEDS: POTASSIUM CL 10MEQ/50ML IVPB 50 ML IV SCH ×2 (05:23→05:29)
[2022-12-03] MEDS: KCL 20 MEQ TAB (K-DUR) PO SCH (05:23)
[2022-12-03] MEDS: inSUlin ASPART (NovoLOG) 1 UNIT/0.01 ML (CHARGE PER UNIT) SQ SCH ×4 (05:24→20:59)
[2022-12-03] MEDS: NOREPINEPHRINE 8 MG/250 ML 250 ML IV SCH (06:14)
[2022-12-03] MEDS: CATHETER FLUSH 10 ML SYR IVP SCH ×3 (06:15→23:55)
[2022-12-03 06:31] VITALS: BP 131/62
[2022-12-03] MEDS: RT-ALBUTEROL HFA 8.5 GM INHALER IH SCH ×4 (06:31→18:34)
[2022-12-03] MEDS: RT--FLUTICASONE/SALMETEROL 232-14 (AIRDUO RespiCLICK) IH SCH ×3 (06:31→20:54)
[2022-12-03] MEDS: FUROSEMIDE 40 MG/4 ML INJ (LASIX) IVP SCH (07:57)
[2022-12-03] MEDS: ASPIRIN E.C. 81 MG (ECOTRIN) TAB PO SCH (07:57)
[2022-12-03] MEDS: DexMEDEtomidine 250 ML DRIP 250 ML IV SCH (07:58)
--- NOTE | 2022-12-03 09:34 | Progress Note - Hospitalist ---
Subjective HPI/CC On Admission Date Seen by Provider: Dec 03, 2022 Patient is an 82-year-old female known to me from multiple recent admissions who presented to the emergency department due to shortness of breath. She is unable to provide me any history which is near her baseline given her dementia. All history is obtained from the records. She presented from her [facility] due to shortness of breath who was found to have sepsis due to likely pneumonia and urinary tract infection. She was in acute respiratory failure and placed on BiPAP on which she remains. She was placed on IV antibiotics and admitted to the ICU. I was able to contact her son later in the day who states that 2 days ago she was feeling very well when he visited her at the [facility] and that she took an abrupt turn for the worse. He did independently acknowledge that this is happening more frequently and she continues to get more sick. We discussed that this could be a sign that she is nearing the end of her life and that eventually she may get a pneumonia so severe she is unable to recover. He expresses hope that that is not this time and is hopeful she will turn around and get better. Subjective/Events-last exam Pt off BiPAP this am. On precedex and sleeping. She did open eyes when spoken to but otherwise did not answer any questions. No family at bedside. Objective Exam Vital Signs Vital Signs Date Time Temp Pulse Resp B/P (MAP) Pulse Ox O2 Delivery O2 Flow Rate FiO2 12/03/22 09:00 60 23 99/53 (67) 94 Nasal Cannula 6.00 12/03/22 07:53 36.3 12/03/22 07:40 35 Capillary Refill : Less Than 3 Seconds General Appearance: No Apparent Distress, Chronically ill Respiratory: No Respiratory Distress, Decreased Breath Sounds Cardiovascular: Regular Rate, Rhythm, No Murmur Gastrointestinal: Normal Bowel Sounds, Soft Neurologic/Psychiatric: Alert, Disoriented Results/Procedures Lab Laboratory Tests 12/03/22 04:05 Patient resulted labs reviewed. Imaging: Reviewed Imaging Report Assessment/Plan Assessment and Plan Assess & Plan/Chief Complaint Septic Shock- improving UTI PNA Acute on chronic respiratory failure HFpEF Did test positive for COVID but had it in October, likely not an acute infection On 6lpm BiPAP HS and prn Continue IV abx Off Vanc as MRSA screen negative Negative blood cultures but urine culture with ESBL e coli Continue Lasix - 665 yesterday and negatie ~1L for whole stay Cardiology consulted, appreciate recs TeleICU consulted, appreciate recs Precedex prn to tolerate BiPAP Anemia- normocytic Chronic anemic Baseline in the 7-8s Hgb up to 9.0 Does not seem to have an acute blood loss Consider tagged pRBC study tomorrow if drops agin Iron low but TIBC and Ferritin normal- defer IV iron with acute infection B12 low but not macrocytic Advanced dementia Poor prognosis custodial resident, VCV Pt would benefit from palliative care- as discussed above son yesterday is not ready for that transition HTN AFib History of CVA Continue home meds as able Hold Eliquis due to anemia Discussed with cardiology- trialling on aspirin DVT ppx: SCDs only due to anemia Critical Care Critically Ill Patient ABRAHAM CIFUENTES MD Dec 03, 2022 09:34
--- NOTE | 2022-12-03 09:37 | Tele-ICU Progress Note ---
Progress Note video rounds completed 82 y/o with demetia admitted with SOB Had covid in recent past, no acute infection. Acute on chronic resp failure, tretaed with BIPAP Onmeropenum for PNA Overall doing well VSS IMP: acute on chronic resp failure and PNA PLAN: continue antibiotics and nebs Focused Exam Height, Weight, BMI Height: 5'4.00" Weight: 182lbs. 0.6oz. 77.375466wp; 25.16 BMI Method:Stated Labs Laboratory Tests 12/03/22 04:05 Results Results/Procedures Labs Laboratory Tests 12/02/22 04:40 12/03/22 04:05 Patient resulted labs reviewed. Imaging: Reviewed Imaging Report Results Labs Labs Laboratory Tests 12/02/22 10:05: Stool Occult Blood Immunoassay NEGATIVE 12/02/22 10:46: Glucometer 89 12/02/22 15:53: Glucometer 114H 12/02/22 20:59: Glucometer 103 12/03/22 04:05: White Blood Count 6.5, Red Blood Count 3.79L, Hemoglobin 9.0L, Hematocrit 30L, Mean Corpuscular Volume 78L, Mean Corpuscular Hemoglobin 24L, Mean Corpuscular Hemoglobin Concent 30L, Red Cell Distribution Width 17.7H, Platelet Count 344, Mean Platelet Volume 10.4, Immature Granulocyte % (Auto) 0, Neutrophils (%) (Auto) 69, Lymphocytes (%) (Auto) 14, Monocytes (%) (Auto) 9, Eosinophils (%) (Auto) 7, Basophils (%) (Auto) 1, Neutrophils # (Auto) 4.5, Lymphocytes # (Auto) 0.9L, Monocytes # (Auto) 0.6, Eosinophils # (Auto) 0.5H, Basophils # (Auto) 0.0, Immature Granulocyte # (Auto) 0.0, Sodium Level 141, Potassium Level 3.7, Chloride Level 106, Carbon Dioxide Level 24, Anion Gap 11, Blood Urea Nitrogen 16, Creatinine 0.58L, Estimat Glomerular Filtration Rate 91, BUN/Creatinine Ratio 28, Glucose Level 110H, Calcium Level 8.5, Corrected Calcium 9.4, Phosphorus Level 3.2, Magnesium Level 2.1, Total Bilirubin 0.8, Aspartate Amino Transf (AST/SGOT) 11, Alanine Aminotransferase (ALT/SGPT) 6, Alkaline Phosphatase 80, Total Protein 5.3L, Albumin 2.9L Microbiology 11/28/22 MRSA Screen - Final, Complete MRSA not isolated 11/28/22 Urine Culture - Final, Complete Escherichia coli See Comments 11/28/22 Blood Culture - Preliminary, Resulted No growth PAYTON GRANT MD Dec 03, 2022 09:37
--- NOTE | 2022-12-03 11:23 | Cardiology Progress Note ---
Subjective Date Seen by Provider: Dec 03, 2022 Time Seen by Provider: 09:00 Subjective/Events-last exam No acute events overnight. Anemia workup sent yesterday. Still with intermittent BiPAP requirement. HR 60s Objective-Cardiology Exam Last Set of Vital Signs Vital Signs 12/03/22 12/03/22 12/03/22 12/03/22 07:40 07:53 10:00 11:05 Temp 36.3 Pulse 60 Resp 22 B/P (MAP) 94/55 (70) Pulse Ox 95 O2 Delivery Nasal Cannula O2 Flow Rate 2.00 FiO2 35 I&O Intake and Output 12/03/22 00:00 Intake Total 1505 ml Output Total 2170 ml Balance -665 ml Intake Oral 955 ml IV Total 550 ml Output Urine Total 2170 ml # Bowel Movements 1 Other physical findings Gen: No acute distress; A+O x 3, sitting comfortably in the bed Neck: soft supple, no cervical LAD Luns: CTA-bilaterally but coarse breath sounds, no wheezing, rales or rhonchi CV: nl s1/s2, no g-r, RRR; sys murmur RSB, harsh 3-4/6 Abd: soft nt nd, no HSM, + BS Ext: wwp, no c-c-e; 2+ DP and femoral pulses skin: no lesions rashes or ecchymoses are noted. Results Lab Laboratory Tests 12/03/22 04:05 A/P-Cardiology Assessment/Plan 82F with hx of COVID +, PAF, COPD, CVA, DNR status, mode-sev , and severe dementia /[facility] resident who presented with complaints of dyspnea. ## Acute on chronic resp failure-- likely multi-factorial d/t acute on chronic diastolic CHF, acute on chronic exacerbation of COPD, pneumonia - cont lasix 40 iv but increase to BID for now; UOP: 2.1L overnight, but only - 980cc for hospital stay with worsening signsn of edema on CXR; - CXR on 12/04 AM - cont meropenem-for pneumonia as well; vanc was on initially and has been discontinued. ## Pneumonia - management per medical services ## Anemia; unknown etiology, baseline Hgb in 8s but drop to 6.7 on admit; pt was on Eliquis, which is currently being held - MCV 78; anemia workup sent. Fe 15, B12 low; Will start Venofer 200mg iv qd x 3 days, then transition to po Fe; start B12 and folate supplementation. Stool occult is negative - for now, agree with hold eliquis; pt at his risk for repeat CVA given her hx of CVA so would like to get anemia issue sorted; will consider restarting Eliquis at 2.5mg po BID towards end of week. - cont ASA 81m gpo QD, Hgb stable at 9.0 this Am ##UTI; Ecoli in UCx on sens to carbapenem and gent - cont meropenem; - BCx no growth to date ## Hypotension, resolved. SBPs 110-140s - cont to monitor ## Permanent A Fib- currently in NSR, Eliquis held secondary to transfusion need - plan as above in anemia section ## Moderate to severe Aortic stenosis - Echo of 03/28/22 (Dr Escalera): LVEF 60-65%, severe , mild AI, mild MAC, mild MR, mild to mod TR, severe enlargement of both atria, PASP 76 mmHg - Echo on 10/09/22: LVEF 65-70%. Biatrial enlargement, mod to severe. Mild to mod MAC. Mild MR. Mod . Mild AI. PASP 70-75 mmHg ## Cardiac pacemaker in situ - details unknown ## H/o CVA ## Dementia ADITI CARMONA MD Dec 03, 2022 11:23
[2022-12-03] MEDS: IRON SUCROSE 200 MG/10 ML (VENOFER) VIAL IV SCH (12:04)
[2022-12-03] MEDS: LACTATED RINGERS 1,000 ML IV SCH (16:31)
[2022-12-03 18:34] VITALS: BP 138/72
[2022-12-03 20:55] VITALS: BP 123/68
[2022-12-04] MEDS: NOREPINEPHRINE 8 MG/250 ML 250 ML IV SCH ×2 (02:24→22:52)
[2022-12-04 02:33] VITALS: BP 144/76
[2022-12-04 04:17] LABS: BASOPHILS % (AUTO) 1 % (0-10); EOSINOPHILS # (AUTO) 0.5 10^3/uL (0.0-0.3); EOSINOPHILS % (AUTO) 8 % (0-10); HEMATOCRIT 30 % (35-52); HEMOGLOBIN 8.8 g/dL (11.5-16.0); LYMPHOCYTES # (AUTO) 1.1 10^3/uL (1.0-4.0); LYMPHOCYTES % (AUTO) 17 % (12-44); MEAN CORPUSCULAR HEMOGLOBIN 24 pg (25-34); MEAN CORPUSCULAR HGB CONC 30 g/dL (32-36); MEAN CORPUSCULAR VOLUME 79 fL (80-99); MEAN PLATELET VOLUME 10.5 fL (9.0-12.2); MONOCYTES # (AUTO) 0.6 10^3/uL (0.0-1.0); MONOCYTES % (AUTO) 9 % (0-12); NEUTROPHILS # (AUTO) 4.2 10^3/uL (1.8-7.8); NEUTROPHILS % (AUTO) 66 % (42-75); PLATELET COUNT 344 10^3/uL (130-400); WHITE BLOOD COUNT 6.4 10^3/uL (4.3-11.0)
[2022-12-04 04:34] LABS: ALBUMIN 2.6 GM/DL (3.2-4.5); BILIRUBIN,TOTAL 0.8 MG/DL (0.1-1.0); CALCIUM 8.5 MG/DL (8.5-10.1); CREATININE SERUM 0.56 MG/DL (0.60-1.30); MAGNESIUM 1.8 MG/DL (1.6-2.4); PHOSPHORUS 2.9 MG/DL (2.3-4.7); POTASSIUM 3.3 MMOL/L (3.6-5.0); TOTAL PROTEIN 4.9 GM/DL (6.4-8.2)
[2022-12-04] MEDS: POTASSIUM CL 10MEQ/50ML IVPB 50 ML IV SCH ×8 (05:02→11:26)
[2022-12-04] MEDS: inSUlin ASPART (NovoLOG) 1 UNIT/0.01 ML (CHARGE PER UNIT) SQ SCH ×4 (05:02→20:47)
[2022-12-04] MEDS: KCL 20 MEQ TAB (K-DUR) PO SCH (05:02)
[2022-12-04] MEDS: MAGNESIUM 1 GM/100 ML IVPB 100 ML IV SCH ×3 (05:02→06:19)
[2022-12-04] MEDS ORDERED: POTASSIUM CL 10MEQ/50ML IVPB 200 ML IV ONE ×2 (05:11→05:13)
[2022-12-04] MEDS ORDERED: MAGNESIUM 1 GM/100 ML IVPB 200 ML IV ONE (05:11)
[2022-12-04] MEDS: CATHETER FLUSH 10 ML SYR IVP SCH ×3 (05:31→20:47)
[2022-12-04] MEDS: DexMEDEtomidine 250 ML DRIP 250 ML IV SCH (06:52)
[2022-12-04] MEDS: RT--FLUTICASONE/SALMETEROL 232-14 (AIRDUO RespiCLICK) IH SCH ×2 (07:20→22:16)
[2022-12-04] MEDS: RT-ALBUTEROL HFA 8.5 GM INHALER IH SCH ×4 (07:20→18:46)
[2022-12-04] MEDS: ASPIRIN E.C. 81 MG (ECOTRIN) TAB PO SCH (07:41)
[2022-12-04] MEDS: CYANOCOBALAMIN 1,000 MCG (VITAMIN B-12) TABLET PO SCH (07:41)
[2022-12-04] MEDS: FOLIC ACID 1 MG TAB PO SCH (07:41)
[2022-12-04] MEDS: IRON SUCROSE 200 MG/10 ML (VENOFER) VIAL IV SCH (07:41)
[2022-12-04] MEDS: FUROSEMIDE 40 MG/4 ML INJ (LASIX) IVP SCH ×3 (07:42→17:08)
--- NOTE | 2022-12-04 08:35 | Diagnostic Imaging Report ---
INDICATION: Sepsis, pneumonia, urinary tract infection. TECHNIQUE: Single view chest at 8:09 AM. CORRELATION STUDY: 12/02/2022. FINDINGS: Right-sided dual-chamber pacemaker. Heart size and mediastinum are enlarged and prominent. Continued pulmonary vascular congestion and perihilar edema. Moderate pleural effusions, right greater than left. Opacities of the mid and lower lung olivares, right greater than left, could reflect infiltrate, atelectasis, and/or edema. IMPRESSION: 1. Increasing severity of overall edema. 2. Continued combination of effusion along with atelectasis, infiltrate, and/or edema in both lung bases (right greater than left), slightly increased from prior. Dictated by: Dictated on workstation # [id number]
--- NOTE | 2022-12-04 09:56 | Cardiology Progress Note ---
Subjective Date Seen by Provider: Dec 04, 2022 Time Seen by Provider: 08:30 Subjective/Events-last exam no acute issues overngiht. More alert today. Taking all of her pos now....which is improved. Objective-Cardiology Exam Last Set of Vital Signs Vital Signs 12/04/22 12/04/22 03:41 08:00 Temp 36.8 Pulse 60 Resp 11 B/P (MAP) 96/47 (63) Pulse Ox 95 O2 Delivery Nasal Cannula O2 Flow Rate 6.00 FiO2 30 I&O Intake and Output 12/04/22 00:00 Intake Total 2515 ml Output Total 2750 ml Balance -235 ml Intake Oral 965 ml IV Total 1550 ml Output Urine Total 2750 ml Other physical findings Gen: No acute distress; A+O x 3, sitting comfortably in the bed Neck: soft supple, no cervical LAD Luns: Decreased BS in the anterolateral bases with rales. no junior wheezing or rhonchi CV: nl s1/s2, no g-r, RRR; sys murmur RSB, harsh 3-4/6 Abd: soft nt nd, no HSM, + BS Ext: wwp, no c-c-e; 2+ DP and femoral pulses skin: no lesions rashes or ecchymoses are noted. Results Lab Laboratory Tests 12/04/22 03:59 A/P-Cardiology Assessment/Plan 82F with hx of COVID +, PAF, COPD, CVA, DNR status, mode-sev , and severe dementia /[facility] resident who presented with complaints of dyspnea. ## Acute on chronic resp failure-- likely multi-factorial d/t acute on chronic diastolic CHF, acute on chronic exacerbation of COPD, COVID pneumonia; BNP today improved from prior (~ 1100). - cont lasix 40 iv BID (just changed this AM). Will give her a metolazone x 1 to augment diuresis for today. Careful with over-diuresis given moderate to severe . - f/u chest x ray with increasing edema - any concern for COVID contributing to persistent oxygen requirement and intermittent BIPAP? - cont meropenem-for pneumonia as well; vanc was on initially and has been discontinued. ## Pneumonia/COVID - management per medical services ## Anemia; unknown etiology, baseline Hgb in 8s but drop to 6.7 on admit; pt was on Eliquis, which is currently being held - MCV 78; anemia workup sent. Fe 15, B12 low; - cont Venofer 200mg iv qd x 3 days, then transition to po Fe; - cont B12 and folate supplementation. Stool occult is negative - cont ASA 81m gpo QD, Hgb stable at 8.8 this Am - for now, agree with hold eliquis; pt at his risk for repeat CVA given her hx of CVA so would like to get anemia issue sorted; will consider restarting Eliquis at 2.5mg po BID toward end of hospitalization ##UTI; Ecoli in UCx on sens to carbapenem and gent - cont meropenem; - BCx no growth to date ## Hypotension, resolved. SBPs 120-140s - cont to monitor ## Permanent A Fib- currently in NSR, Eliquis held secondary to transfusion need - plan as above in anemia section ## Moderate to severe Aortic stenosis - Echo of 03/28/22 (Dr Escalera): LVEF 60-65%, severe , mild AI, mild MAC, mild MR, mild to mod TR, severe enlargement of both atria, PASP 76 mmHg - Echo on 10/09/22: LVEF 65-70%. Biatrial enlargement, mod to severe. Mild to mod MAC. Mild MR. Mod . Mild AI. PASP 70-75 mmHg ## Cardiac pacemaker in situ - details unknown ## H/o CVA ## Dementia ADITI CARMONA MD Dec 04, 2022 09:56
[2022-12-04] MEDS ORDERED: METOLAZONE 2.5 MG (ZAROXOLYN) TAB PO ONE (10:00)
[2022-12-04] MEDS: risperiDONE 0.5 MG (RisperDAL) TABLET PO SCH ×2 (10:30→20:47)
--- NOTE | 2022-12-04 11:57 | Tele-ICU Progress Note ---
Subjective Date Seen by a Provider: Dec 04, 2022 Time Seen by a Provider: 11:56 Subjective/Events-last exam (Tele-ICU Physician , Progress Note ) Service provided via interactive audio and video telecommunications E-CARE system to a patient admitted to ICU bed in [facility]. Patient is seen today due to persistent need of ICU care Available chart/ vitals / labs / Images reviewed Video assessment done using teleICU camera, rest of exam as per RN Discussed with RN Events overnight : Afebrile hemodynamically stable Respiratory - 6 L I/O = lr 50 Drips: precedex 0.8 Pressors- no Consultants: Hospital course: RECENT admission 11/07 with CHF, +COVID, hypoxic respiratory failure (11/28) 82yr F admitted for Acute on Chronic Respiratory failure, Pneumonia, Copd Exacerbation. DNR status. 11/29 In BIPAP 05/02 30 5 , rr20 , TV 450, levo on/off , Hb 6.7 - 1 uPCBC ordered 12/04 - bipap night , 6 L NC day A/P Delirium - - on precedex 0.8 started on po meds - follow closely PNA ,RLL, HAP vs aspiration - UTI with e coli - merrem - finished 12/03 Hypotension -- careful with fluuid with and pulm HTN Acute on chronic respiratory failure with hypoxia ( recent Covid (11/07) - d/c on 8 L to NH - BIPAP 05/02 night Anemia - no obvious sign of bleeding , Hb 6.7 this am - 1 uPCBC diring tjhia admission COPD, cronic resp failure - nebs A Fib - Sinus now - has been on OAC for stroke prophylaxis with Eliquis 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 Biatrial enlargement, mod to severe. Mild to mod MAC. Mild MR. Mod . Mild AI Pulm HTN , -Echo on 10/09/22: PASP 70-75 mmHg - fluis status is chalenging given and sepsis Advanced dementia - at risk for aspiration ( with RLL PNA - will need to monitor - on precedex 0.8 DNR status Lines : periph , (Central Line Necessity Reviewed) Chavis: 11/28 in er OG: Nutrition: eating better Analgesia: Anxiety/ delirium VTE Prophylaxis: eliquis ON HOLD , SCD Stress Ulcer Prophylaxis: na Plans in collaboration with bedside consultants and IM MDs. Discussed with RN to reach out if any questions or concerns A total of 25 minutes of critical care time was devoted to this patient today, required to treat and/or prevent further deterioration of critical care condition ( as above ) . I am remotely monitoring this patient from another state. I am unable to do the bedside exam, and history/physical and pertinent information is taken from other notes in the computer and bedside staff. . Sepsis Event Evaluation Height, Weight, BMI Height: 5'4.00" Weight: 182lbs. 0.6oz. 77.814488aa; 23.83 BMI Method:Stated Exam Exam Patient acknowledged, consented, and participated in this virtual visit which was conducted using real time audio/video Vital Signs Date Time Temp Pulse Resp B/P (MAP) Pulse Ox O2 Delivery O2 Flow Rate FiO2 12/04/22 11:45 36.5 12/04/22 11:00 60 26 120/69 (86) 98 Nasal Cannula 6.00 12/04/22 10:55 98 Nasal Cannula 6.00 12/04/22 10:00 60 20 118/56 (76) 99 Nasal Cannula 6.00 12/04/22 09:00 60 24 110/72 (85) 99 Nasal Cannula 6.00 12/04/22 08:00 36.8 12/04/22 08:00 60 11 96/47 (63) 95 Nasal Cannula 6.00 12/04/22 07:40 92 Nasal Cannula 6.00 12/04/22 07:37 60 12/04/22 07:22 99 Nasal Cannula 6.00 12/04/22 07:20 99 Nasal Cannula 6.00 12/04/22 07:18 84 Nasal Cannula 6.00 12/04/22 07:09 Nasal Cannula 2.00 12/04/22 07:00 60 24 130/76 (94) 96 NIV Bilevel 30.00 12/04/22 06:00 60 21 131/68 (89) 96 NIV Bilevel 30.00 12/04/22 05:00 60 20 134/68 (90) 97 NIV Bilevel 30.00 12/04/22 04:00 60 22 130/66 (87) 95 NIV Bilevel 30.00 12/04/22 03:41 96 NIV Bilevel 30 12/04/22 03:40 36.4 NIV Bilevel 30.00 12/04/22 03:00 60 20 147/75 (99) 100 NIV Bilevel 35.00 12/04/22 02:33 60 21 97 35.00 12/04/22 02:00 60 22 136/73 (103) 98 NIV Bilevel 35.00 12/04/22 01:00 60 21 146/85 (117) 99 NIV Bilevel 35.00 12/04/22 01:00 60 12/04/22 00:00 60 21 139/73 (95) 99 NIV Bilevel 35.00 12/03/22 23:54 98 NIV Bilevel 35 12/03/22 23:00 60 23 144/71 (95) 93 NIV Bilevel 35.00 12/03/22 22:00 60 26 146/72 (100) 98 NIV Bilevel 35.00 12/03/22 21:00 60 29 133/72 (98) 94 NIV Bilevel 35.00 12/03/22 20:55 60 28 96 35.00 12/03/22 20:00 97 NIV Bilevel 35 12/03/22 20:00 60 31 123/73 (100) 97 NIV Bilevel 35.00 12/03/22 19:39 36.5 12/03/22 19:05 61 12/03/22 19:00 64 12/03/22 19:00 64 30 122/69 (86) 100 NIV Bilevel 35.00 12/03/22 18:34 65 32 99 35.00 12/03/22 18:22 NIV Bilevel 35.00 12/03/22 18:00 69 31 140/72 (96) 98 NIV Bilevel 35.00 12/03/22 17:05 Nasal Cannula 2.00 12/03/22 17:00 81 149/75 (111) 94 NIV Bilevel 35.00 12/03/22 16:00 73 155/83 (116) 94 NIV Bilevel 35.00 12/03/22 16:00 95 NIV Bilevel 35 12/03/22 15:27 37.3 12/03/22 15:00 77 164/82 (118) 90 NIV Bilevel 35.00 12/03/22 14:58 94 Nasal Cannula 2.00 12/03/22 14:00 65 139/66 (98) 96 NIV Bilevel 35.00 12/03/22 13:00 70 28 130/66 (98) 96 NIV Bilevel 35.00 12/03/22 13:00 60 12/03/22 12:20 90 NIV Bilevel 35.00 12/03/22 12:05 71 132/66 12/03/22 12:00 95 Nasal Cannula 2.00 12/03/22 12:00 70 132/66 (90) 96 Nasal Cannula 2.00 I & O 12/04/22 07:00 Intake Total 3065 ml Output Total 3050 ml Balance 15 ml Height & Weight Height: 5'4.00" Weight: 182lbs. 0.6oz. 77.968838bs; 23.83 BMI Method:Stated General Appearance: No Apparent Distress, Chronically ill HEENT: Other (BiPAP) Respiratory: No Respiratory Distress, Decreased Breath Sounds Cardiovascular: Regular Rate, Rhythm, No Murmur Capillary Refill: Less Than 3 Seconds Gastrointestinal: normal bowel sounds, distended; No guarding; tenderness, other (Palpable aorta) Extremity: No Pedal Edema Neurologic/Psychiatric: Alert, Disoriented Results Lab Laboratory Tests 12/03/22 04:05 12/04/22 03:59 Assessment/Plan Assessment/Plan 1 EHSAN FULTON MD Dec 04, 2022 11:57
[2022-12-04] MEDS: LORazepam INJ 2 MG/ML (ATIVAN) VIAL IVP PRN ×2 (15:19→23:27)
[2022-12-04] MEDS ORDERED: ENOXAPARIN 40 MG/0.4 ML (LOVENOX) SYR SC SCH (18:00)
--- NOTE | 2022-12-04 18:04 | Progress Note - Hospitalist ---
Subjective HPI/CC On Admission Date Seen by Provider: Dec 04, 2022 Time Seen by Provider: 09:20 Patient is an 82-year-old female known to me from multiple recent admissions who presented to the emergency department due to shortness of breath. She is unable to provide me any history which is near her baseline given her de mentia. All history is obtained from the records. She presented from her [facility] due to [facility]ness of breath who was found to have sepsis due to likely pneumonia and urinary tract infection. She was in acute respiratory failure and placed on BiPAP on which she remains. She was placed on IV a ntibiotics and admitted to the ICU. I was able to contact her son later in the day who states that 2 days ago she was feeling very well when he visited her at the [facility] and that she took an abrupt turn for the worse. He did independently acknowledge that this is happening more frequently and she continues to get more sick. We discussed that this could be a sign that she is nearing the end of her life and that eventually she may get a pneumonia so severe she is unable to recover. He expresses hope that that is not this time and is hopeful she will turn around and get better. Subjective/Events-last exam She is sleeping. She easily awakens. She denies any complaints. Objective Exam Vital Signs Vital Signs Date Time Temp Pulse Resp B/P (MAP) Pulse Ox O2 Delivery O2 Flow Rate FiO2 12/04/22 17:28 OxyMask 4.00 12/04/22 17:00 75 35 137/72 (93) 96 12/04/22 15:57 37.0 12/04/22 03:41 30 Capillary Refill : Less Than 3 Seconds General Appearance: No Apparent Distress, WD/WN Respiratory: Lungs Clear, No Respiratory Distress Cardiovascular: Regular Rate, Rhythm, No Murmur Gastrointestinal: Normal Bowel Sounds, Soft Extremity: Normal Inspection, No Pedal Edema Neurologic/Psychiatric: Alert, Normal Mood/Affect Skin: Normal Color, Warm/Dry Results/Procedures Lab Laboratory Tests 12/04/22 03:59 Patient resulted labs reviewed. Imaging: Reviewed Imaging Report Assessment/Plan Assessment and Plan Assess & Plan/Chief Complaint Septic shock UTI PNA Acute on chronic respiratory failure HFpEF Supplemental oxygen as needed, improving BiPAP HS and prn Urine culture with ESBL e coli Merrem Lasix Cardiology following TeleICU following Wean Precedex as able Add Risperdal Anemia Chronic anemic, Hgb stable Advanced dementia Poor prognosis senior care resident, VCV HTN AFib History of CVA Continue home meds as able Hold Eliquis due to anemia Discussed with cardiology- trial on aspirin DVT ppx: Lovenox Diagnosis/Problems Diagnosis/Problems (1) Septic shock Status: Acute (2) UTI due to extended-spectrum beta lactamase (ESBL) producing Escherichia coli Status: Acute (3) Right lower lobe pneumonia Status: Acute Qualifiers: Pneumonia type: due to unspecified organism Qualified Codes: J18.9 - Pneumonia, unspecified organism (4) Acute on chronic respiratory failure with hypoxia and hypercapnia Status: Acute (5) Advanced dementia Status: Acute Qualifiers: Dementia type: unspecified type Dementia behavioral or psychological symptom: without behavioral, psychotic, or mood disturbance or anxiety Qualified Codes: F03.C0 - Unspecified dementia, severe, without behavioral disturbance, psychotic disturbance, mood disturbance, and anxiety MARCO A CÁRDENAS MD Dec 04, 2022 18:04
[2022-12-04] MEDS: MEROPENEM 500 MG in NS (IVPB) 100 ML IV SCH (19:43)
[2022-12-04 22:17] VITALS: BP 134/69
[2022-12-05] MEDS: MEROPENEM 500 MG in NS (IVPB) 100 ML IV SCH ×2 (03:34→10:46)
[2022-12-05 04:49] LABS: BASOPHILS % (AUTO) 1 % (0-10); EOSINOPHILS # (AUTO) 0.4 10^3/uL (0.0-0.3); EOSINOPHILS % (AUTO) 5 % (0-10); HEMATOCRIT 30 % (35-52); LYMPHOCYTES # (AUTO) 1.3 10^3/uL (1.0-4.0); LYMPHOCYTES % (AUTO) 16 % (12-44); MEAN CORPUSCULAR HEMOGLOBIN 24 pg (25-34); MEAN CORPUSCULAR HGB CONC 30 g/dL (32-36); MEAN CORPUSCULAR VOLUME 78 fL (80-99); MEAN PLATELET VOLUME 10.7 fL (9.0-12.2); MONOCYTES # (AUTO) 0.7 10^3/uL (0.0-1.0); MONOCYTES % (AUTO) 9 % (0-12); NEUTROPHILS # (AUTO) 5.6 10^3/uL (1.8-7.8); NEUTROPHILS % (AUTO) 69 % (42-75); PLATELET COUNT 381 10^3/uL (130-400); WHITE BLOOD COUNT 8.2 10^3/uL (4.3-11.0)
[2022-12-05 05:04] LABS: POTASSIUM 3.3 MMOL/L (3.6-5.0)
[2022-12-05 05:05] LABS: CALCIUM 8.5 MG/DL (8.5-10.1)
[2022-12-05 05:07] LABS: TOTAL PROTEIN 5.3 GM/DL (6.4-8.2)
[2022-12-05 05:08] LABS: BILIRUBIN,TOTAL 0.8 MG/DL (0.1-1.0)
[2022-12-05 05:10] LABS: CREATININE SERUM 0.6 MG/DL (0.60-1.30); PHOSPHORUS 3.2 MG/DL (2.3-4.7)
[2022-12-05 05:13] LABS: MAGNESIUM 1.9 MG/DL (1.6-2.4)
[2022-12-05] MEDS: MAGNESIUM 1 GM/100 ML IVPB 100 ML IV SCH ×3 (05:23→05:39)
[2022-12-05] MEDS: inSUlin ASPART (NovoLOG) 1 UNIT/0.01 ML (CHARGE PER UNIT) SQ SCH ×2 (05:23→10:20)
[2022-12-05] MEDS: POTASSIUM CL 10MEQ/50ML IVPB 50 ML IV SCH ×5 (05:23→09:04)
[2022-12-05] MEDS: KCL 20 MEQ TAB (K-DUR) PO SCH (05:23)
[2022-12-05] MEDS ORDERED: MAGNESIUM 1 GM/100 ML IVPB 200 ML IV ONE (05:33)
[2022-12-05] MEDS ORDERED: POTASSIUM CL 10MEQ/50ML IVPB 200 ML IV ONE (06:49)
[2022-12-05] MEDS: CATHETER FLUSH 10 ML SYR IVP SCH ×2 (06:53→10:46)
[2022-12-05] MEDS: RT-ALBUTEROL HFA 8.5 GM INHALER IH SCH ×2 (06:54→09:47)
[2022-12-05] MEDS: CYANOCOBALAMIN 1,000 MCG (VITAMIN B-12) TABLET PO SCH (08:02)
[2022-12-05] MEDS: FOLIC ACID 1 MG TAB PO SCH (08:02)
[2022-12-05] MEDS: FUROSEMIDE 40 MG/4 ML INJ (LASIX) IVP SCH (08:02)
[2022-12-05] MEDS: ASPIRIN E.C. 81 MG (ECOTRIN) TAB PO SCH (08:02)
[2022-12-05] MEDS: IRON SUCROSE 200 MG/10 ML (VENOFER) VIAL IV SCH (08:02)
[2022-12-05] MEDS: risperiDONE 0.5 MG (RisperDAL) TABLET PO SCH (08:02)
--- NOTE | 2022-12-05 09:15 | Cardiology Progress Note ---
Subjective Date Seen by Provider: Dec 05, 2022 Time Seen by Provider: 08:15 Subjective/Events-last exam No acute events overnight. More alert todauy. supplementatl O2 decreased from 6L to 3L O2 after 5.3L UOP over past 24 hrs. Objective-Cardiology Exam Last Set of Vital Signs Vital Signs 12/05/22 12/05/22 12/05/22 00:00 08:00 08:01 Temp 36.8 Pulse 73 Resp 35 B/P (MAP) 138/72 (94) Pulse Ox 97 O2 Delivery Nasal Cannula O2 Flow Rate 3.00 FiO2 30 I&O Intake and Output 12/05/22 00:00 Intake Total 2780 ml Output Total 5350 ml Balance -2570 ml Intake Oral 920 ml IV Total 1860 ml Output Urine Total 5350 ml Other physical findings Gen: No acute distress; A+O x 3, sitting comfortably in the bed, more alert today Neck: soft supple, no cervical LAD Luns: Decreased BS in the anterolateral bases with rales. no junior wheezing or r honchi CV: nl s1/s2, no g-r, RRR; sys murmur RSB, harsh 3-/6 Abd: soft nt nd, no HSM, + BS Ext: wwp, no c-c-e; 2+ DP and femoral pulses skin: no lesions rashes or ecchymoses are noted. Results Lab Laboratory Tests 12/05/22 04:24 A/P-Cardiology Assessment/Plan 82F with hx of COVID +, PAF, COPD, CVA, DNR status, mode-sev , and severe dementia /detention resident who presented with complaints of dyspnea. ## Acute on chronic resp failure-- likely multi-factorial d/t acute on chronic diastolic CHF, acute on chronic exacerbation of COPD, COVID pneumonia; BNP today improved from prior (~ 1100). Now -3.8L for her hospital stay - cont lasix 40 iv BID today - Keep K > 4, Mg > 2 (supp K today) - hold on metolazone for today. Careful with over-diuresis given moderate to severe . - any concern for COVID contributing to persistent oxygen requirement and intermittent BIPAP? - cont meropenem-for pneumonia as well; vanc was on initially and has been discontinued. - d/c IVF ## Pneumonia/COVID - management per medical services ## Anemia; unknown etiology, baseline Hgb in 8s but drop to 6.7 on admit; pt was on Eliquis, which is currently being held - MCV 78; anemia workup sent. Fe 15, B12 low; - cont Venofer 200mg iv qd x 3 days, then transition to Fe sulfate 325mg po BID - cont B12 and folate supplementation. Stool occult is negative - cont ASA 81m gpo QD, Hgb stable at 8.8 this Am - for now, agree with hold eliquis; pt at his risk for repeat CVA given her hx of CVA so would like to get anemia issue sorted; will consider restarting Eliquis at 2.5mg po BID toward end of hospitalization ##UTI; Ecoli in UCx on sens to carbapenem and gent - cont meropenem; - BCx no growth to date ## Hypotension, resolved. SBPs 120-140s - cont to monitor ## Permanent A Fib- currently in NSR, Eliquis held secondary to transfusion need - plan as above in anemia section ## Moderate to severe Aortic stenosis - Echo of 03/28/22 (Dr Escalera): LVEF 60-65%, severe , mild AI, mild MAC, mild MR, mild to mod TR, severe enlargement of both atria, PASP 76 mmHg - Echo on 10/09/22: LVEF 65-70%. Biatrial enlargement, mod to severe. Mild to mod MAC. Mild MR. Mod . Mild AI. PASP 70-75 mmHg ## Cardiac pacemaker in situ - details unknown ## H/o CVA ## Dementia ADITI CARMONA MD Dec 05, 2022 09:15
[2022-12-05] MEDS ORDERED: POTASSIUM CL 10MEQ/50ML IVPB 50 ML IV SCH (09:30)
[2022-12-05] MEDS: RT--FLUTICASONE/SALMETEROL 232-14 (AIRDUO RespiCLICK) IH SCH (09:47)
--- NOTE | 2022-12-05 10:15 | Tele-ICU Progress Note ---
Subjective Date Seen by a Provider: Dec 05, 2022 Time Seen by a Provider: 10:15 Subjective/Events-last exam (Tele-ICU Physician , Progress Note ) Service provided via interactive audio and video telecommunications E-CARE system to a patient admitted to ICU bed in [facility]. Patient is seen today due to persistent need of ICU care Available chart/ vitals / labs / Images reviewed Video assessment done using teleICU camera, rest of exam as per RN Discussed with RN Events overnight : Afebrile hemodynamically stable Respiratory - 6 L I/O = off Drips: precedex 0.8 - OFF since 12/04 2 pm Pressors- no Consultants: Hospital course: RECENT admission 11/07 with CHF, +COVID, hypoxic respiratory failure (11/28) 82yr F admitted for Acute on Chronic Respiratory failure, Pneumonia, Copd Exacerbation. DNR status. 11/29 In BIPAP 05/02 30 5 , rr20 , TV 450, levo on/off , Hb 6.7 - 1 uPCBC ordered 12/04 - bipap night , 6 L NC day - - on precedex 0.8 12/05 - OFF PRECEDEX A/P Delirium - OFF PRECEDEX started on po meds - follow closely PNA ,RLL, HAP vs aspiration - UTI with e coli - merrem - finished 12/03 Acute on chronic respiratory failure with hypoxia ( recent Covid (11/07) - d/c on 8 L to NH - BIPAP 05/02 night -- careful with fluuid with and pulm HTN Anemia - no obvious sign of bleeding - 1 uPCBC diring tjhia admission COPD, cronic resp failure - nebs A Fib - Sinus now - has been on OAC for stroke prophylaxis with 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 Biatrial enlargement, mod to severe. Mild to mod MAC. Mild MR. Mod . Mild AI Pulm HTN , -Echo on 10/09/22: PASP 70-75 mmHg - fluis status is chalenging given and sepsis Advanced dementia - at risk for aspiration ( with RLL PNA - will need to monitor - on precedex 0.8 - OFF DNR status Lines : periph , (Central Line Necessity Reviewed) Chavis: 11/28 in er OG: Nutrition: eating better Analgesia: Anxiety/ delirium VTE Prophylaxis: eliquis ON HOLD , SCD , lovenox 40 12/04 Stress Ulcer Prophylaxis: na Plans in collaboration with bedside consultants and IM MDs. Discussed with RN to reach out if any questions or concerns A total of 25 minutes of critical care time was devoted to this patient tod ay, required to treat and/or prevent further deterioration of critical care condition ( as above ) . I am remotely monitoring this patient from another state. I am unable to do the bedside exam, and history/physical and pertinent information is taken from other notes in the computer and bedside staff. . Sepsis Event Evaluation Height, Weight, BMI Height: 5'4.00" Weight: 182lbs. 0.6oz. 77.381397sl; 22.55 BMI Method:Stated Exam Exam Patient acknowledged, consented, and participated in this virtual visit which w as conducted using real time audio/video Vital Signs Date Time Temp Pulse Resp B/P (MAP) Pulse Ox O2 Delivery O2 Flow Rate FiO2 12/05/22 10:00 79 33 130/65 (86) 94 Nasal Cannula 3.00 12/05/22 09:51 100 Nasal Cannula 3.00 12/05/22 09:00 77 32 128/75 (92) Nasal Cannula 3.00 12/05/22 08:01 36.8 12/05/22 08:00 90 Nasal Cannula 3.00 12/05/22 08:00 73 35 138/72 (94) 97 Nasal Cannula 3.00 12/05/22 07:42 72 12/05/22 07:00 67 30 126/68 (87) 92 Nasal Cannula 3.00 12/05/22 06:54 97 Nasal Cannula 3.00 12/05/22 06:00 74 23 128/62 (84) 95 Nasal Cannula 3.00 12/05/22 05:00 68 137/67 (90) 96 Nasal Cannula 3.00 12/05/22 04:28 Nasal Cannula 3.00 12/05/22 04:27 95 Nasal Cannula 3.00 12/05/22 04:00 70 22 129/68 (92) 97 NIV Bilevel 30.00 12/05/22 03:26 36.7 12/05/22 03:00 72 25 125/65 (91) 99 NIV Bilevel 30.00 12/05/22 02:00 75 28 120/63 (95) 96 NIV Bilevel 30.00 12/05/22 01:59 71 30 99 30.00 12/05/22 01:00 70 12/05/22 01:00 73 28 117/59 (84) 97 NIV Bilevel 30.00 12/05/22 00:00 67 28 128/67 (87) NIV Bilevel 30.00 12/05/22 00:00 98 NIV Bilevel 30 12/04/22 23:48 36.4 12/04/22 23:00 67 27 128/63 (95) 91 NIV Bilevel 30.00 12/04/22 22:26 NIV Bilevel 30.00 12/04/22 22:17 75 29 99 30.00 12/04/22 22:00 78 27 134/69 (96) 97 Nasal Cannula 3.00 12/04/22 21:00 74 141/77 (106) 100 Nasal Cannula 3.00 12/04/22 20:09 93 Nasal Cannula 4.00 12/04/22 20:00 79 37 138/65 (102) 88 Nasal Cannula 3.00 12/04/22 19:00 84 12/04/22 19:00 36.9 84 34 130/62 (84) 98 Nasal Cannula 3.00 12/04/22 18:46 96 Nasal Cannula 3.00 12/04/22 18:00 77 35 131/64 (86) 98 OxyMask 4.00 12/04/22 17:28 OxyMask 4.00 12/04/22 17:00 75 35 137/72 (93) 96 OxyMask 6.00 12/04/22 16:30 99 OxyMask 6.00 12/04/22 16:00 78 33 123/66 (85) 100 OxyMask 6.00 12/04/22 15:57 37.0 12/04/22 15:02 98 OxyMask 6.00 12/04/22 15:00 75 35 126/65 (85) 86 OxyMask 6.00 12/04/22 14:00 73 35 126/63 (84) 82 OxyMask 6.00 12/04/22 13:12 OxyMask 6.00 12/04/22 13:00 61 37 119/64 (82) 89 Nasal Cannula 6.00 12/04/22 12:30 92 Nasal Cannula 6.00 12/04/22 12:10 60 12/04/22 12:00 60 21 118/62 (80) 97 Nasal Cannula 6.00 12/04/22 11:45 36.5 12/04/22 11:00 60 26 120/69 (86) 98 Nasal Cannula 6.00 12/04/22 10:55 98 Nasal Cannula 6.00 I & O 12/05/22 07:00 Intake Total 2430 ml Output Total 5375 ml Balance -2945 ml Height & Weight Height: 5'4.00" Weight: 182lbs. 0.6oz. 77.403389an; 22.55 BMI Method:Stated General Appearance: No Apparent Distress, WD/WN HEENT: Other (BiPAP) Respiratory: Lungs Clear, No Respiratory Distress Cardiovascular: Regular Rate, Rhythm, No Murmur Capillary Refill: Less Than 3 Seconds Gastrointestinal: normal bowel sounds, distended; No guarding; tenderness, other (Palpable aorta) Extremity: Normal Inspection, No Pedal Edema Neurologic/Psychiatric: Alert, Normal Mood/Affect Skin: Normal Color, Warm/Dry Results Lab Laboratory Tests 12/04/22 03:59 12/05/22 04:24 Assessment/Plan Assessment/Plan 1 EHSAN FULTON MD Dec 05, 2022 10:15
[2022-12-05] MEDS ORDERED: RISP0.5T65 PO (10:29)
[2022-12-05] MEDS ORDERED: FERR325T24 PO (10:29)
[2022-12-05] MEDS ORDERED: FERROUS SULF 325 MG (IRON) TAB PO SCH (18:00)
--- NOTE | 2022-12-05 18:53 | Discharge Summary ---
Discharge Summary Hospital Course Problems/Dx: (1) Septic shock Status: Acute (2) UTI due to extended-spectrum beta lactamase (ESBL) producing Escherichia coli Status: Acute (3) Right lower lobe pneumonia Status: Acute Qualifiers: Qualified Codes: J18.9 - Pneumonia, unspecified organism (4) Acute on chronic respiratory failure with hypoxia and hypercapnia Status: Acute (5) Advanced dementia Status: Acute Qualifiers: Qualified Codes: F03.C0 - Unspecified dementia, severe, without behavioral disturbance, psychotic disturbance, mood disturbance, and anxiety Hospital Course Date of Admission: Nov 28, 2022 at 21:12 Admission Diagnosis : Septic shock due to ESBL E coli UTI Family Physician/Provider: Jason Johnson MD Date of Discharge: 12/05/22 Discharge Diagnosis: Septic shock due to ESBL E coli UTI Hospital Course: Citlaly Salazar is an 82 year old female with advanced dementia who was admitted with septic shock due to ESBL E coli UTI. She also had a pneumonia. She was treated with IV Merrem and improved. She also had acute on chronic respiratory failure with hypoxia which improved. She was diuresed due to acute on chronic HFpEF. She had difficulty being weaned off Precedex and was started on Risperdal. She did not have any further agitation and her mood seemed to improved. She was discharged back to [facility] in stable condition. Labs and Pending Lab Test: Laboratory Tests 12/04/22 20:25: Glucometer 101 12/05/22 04:24: White Blood Count 8.2, Red Blood Count 3.81, Hemoglobin 9.0L, Hematocrit 30L, Mean Corpuscular Volume 78L, Mean Corpuscular Hemoglobin 24L, Mean Corpuscular Hemoglobin Concent 30L, Red Cell Distribution Width 18.3H, Platelet Count 381, Mean Platelet Volume 10.7, Immature Granulocyte % (Auto) 0, Neutrophils (%) (Auto) 69, Lymphocytes (%) (Auto) 16, Monocytes (%) (Auto) 9, Eosinophils (%) (Auto) 5, Basophils (%) (Auto) 1, Neutrophils # (Auto) 5.6, Lymphocytes # (Auto) 1.3, Monocytes # (Auto) 0.7, Eosinophils # (Auto) 0.4H, Basophils # (Auto) 0.0, Immature Granulocyte # (Auto) 0.0, Sodium Level 140, Potassium Level 3.3L, Chloride Level 101, Carbon Dioxide Level 28, Anion Gap 11, Blood Urea Nitrogen 16, Creatinine 0.60, Estimat Glomerular Filtration Rate 91, BUN/Creatinine Ratio 27, Glucose Level 90, Calcium Level 8.5, Corrected Calcium 9.3, Phosphorus Level 3.2, Magnesium Level 1.9, Total Bilirubin 0.8, Aspartate Amino Transf (AST/SGOT) 10, Alanine Aminotransferase (ALT/SGPT) 6, Alkaline Phosphatase 77, Total Protein 5.3L, Albumin 3.0L 12/05/22 10:16: Glucometer 114H Microbiology 11/28/22 MRSA Screen - Final, Complete MRSA not isolated 11/28/22 Urine Culture - Final, Complete Escherichia coli See Comments 11/28/22 Blood Culture - Final, Complete No growth Home Meds Active Risperidone 0.5 Mg Tablet 0.5 Mg PO BID 30 Days Ferosul (Ferrous Sulfate) 325 Mg (65 Mg Iron) Tablet 325 Mg PO BID WITH MEALS 30 Days Reported Ventolin Hfa (Albuterol Sulfate) 90 Mcg Hfa.aer.ad 2 Puff INH Q6H PRN Biofreeze (Menthol) 4 % Gel..ml. 1 Applic TP DAILY PRN MAY USE FOR PAIN DURING THERAPY SESSION Biofreeze (Menthol) 4 % Gel..ml. 1 Applic TP TID APPLY TO KNEES Metoprolol Succinate 50 Mg Tab.er.24h 50 Mg PO DAILY Aspirin 81 Mg Tab.chew 81 Mg PO DAILY Lisinopril 20 Mg Tablet 20 Mg PO DAILY HOLD FOR SBP LESS THAN 100 AND DBP LESS THAN 60 Docusate Sodium 100 Mg Capsule 100 Mg PO BID Milk of Magnesia (Magnesium Hydroxide) 2,400 Mg/10 Ml Oral.susp 30 Ml PO DAILY PRN Breo Ellipta 200-25 Mcg INH (Fluticasone/Vilanterol) 200 Mcg-25 Mcg/Dose Bl st.w.dev 1 Puff INH DAILY RINSE AND SPIT MOUTH WITH WATER AFTER EACH USE Vitamin C (Ascorbate Calcium) 500 Mg Tablet 500 Mg PO BID Xanax (Alprazolam) 0.25 Mg Tablet 0.25 Mg PO HS Tramadol HCl 50 Mg Tablet 50 Mg PO Q12H PRN Neurontin (Gabapentin) 300 Mg Capsule 300 Mg PO TID Hydrocodone-Acetamin 5-325 mg (Hydrocodone/Acetaminophen) 5 Mg-325 Mg Tablet 1 Tab PO Q6H PRN Preservision Areds Softgel (Vit A/C/E/Zinc/Co) [phone] Capsule 1 Cap PO DAILY Vitamin D3 (Cholecalciferol (Vitamin D3)) 25 Mcg (1000 Unit) Capsule 25 Mcg PO DAILY Furosemide 40 Mg Tablet 60 Mg PO DAILY TAKES 1 & (20MG) TABS Potassium Chloride 20 Meq Tab.er.prt 20 Meq PO DAILY Eliquis (Apixaban) 5 Mg Tablet 5 Mg PO Q12H Citalopram HBr (Citalopram Hydrobromide) 10 Mg Tablet 10 Mg PO HS Xalatan (Latanoprost) 2.5 Ml Drops 1 Drop OU HS Amitriptyline HCl 25 Mg Tablet 25 Mg PO HS Ropinirole HCl 1 Mg Tablet 1 Mg PO HS Assessment/Pt Instructions See instructions Discharge Planning: >30 minutes discharge planning Discharge Instructions Discharge Diet: No Restrictions Activity as Tolerated: Yes Consultations Cardiology, TeleICU Discharge Physical Examination Vital Signs Vital Signs Date Time Temp Pulse Resp B/P (MAP) Pulse Ox O2 Delivery O2 Flow Rate FiO2 12/05/22 11:48 12/05/22 11:20 91 Nasal Cannula 3.00 12/05/22 11:00 82 34 12/05/22 08:01 36.8 12/05/22 00:00 30 General Appearance: No Apparent Distress, Chronically ill Respiratory: Lungs Clear, No Respiratory Distress Cardiovascular: Regular Rate, Rhythm, Systolic Murmur Gastrointestinal: Normal Bowel Sounds, Soft Extremity: Normal Inspection, No Pedal Edema Skin: Normal Color, Warm/Dry Neurologic/Psychiatric: Alert, Normal Mood/Affect, Disoriented Allergies: Coded Allergies: doxycycline (Unverified Allergy, Mild, 11/26/17) Copy Copies To 1: JASON JOHNSON MD Discharge Summary Date of Admission Nov 28, 2022 at 21:12 Date of Discharge Dec 05, 2022 at 11:48 Discharge Date: Dec 05, 2022 Discharge Time: 11:48 Admission Diagnosis Septic Shock and Acute on Chronic Respiratory failure Consults/Procedures Consulations Cardiology, TeleICU Discharge Diagnosis Septic shock UTI PNA Acute on chronic respiratory failure HFpEF Anemia Advanced dementia Poor prognosis HTN AFib History of CVA (1) Septic shock Status: Acute (2) UTI due to extended-spectrum beta lactamase (ESBL) producing Escherichia coli Status: Acute (3) Right lower lobe pneumonia Status: Acute Qualifiers: Qualified Codes: J18.9 - Pneumonia, unspecified organism (4) Acute on chronic respiratory failure with hypoxia and hypercapnia Status: Acute (5) Advanced dementia Status: Acute Qualifiers: Qualified Codes: F03.C0 - Unspecified dementia, severe, without behavioral disturbance, psychotic disturbance, mood disturbance, and anxiety MARCO A CÁRDENAS MD Dec 05, 2022 18:52
== END 2022-12-05 11:48 | DRG 871 ==
LOC: EDUNIT# 17:01 → ER 17:03 → ICU 21:12
PROVIDERS: ADMIT Internal Medicine; ATTEND Internal Medicine
PROC: 5A09357 Assistance with Respiratory Ventilation, Less than 24 Consecutive Hours, Continuous Positive Airway Pressure (ICD-10-PCS; principal; 2022-11-28)
DX: A41.9 Sepsis, unspecified organism (principal); I21.A1 Myocardial infarction type 2; I50.33 Acute on chronic diastolic (congestive) heart failure; J18.9 Pneumonia, unspecified organism; R65.21 Severe sepsis with septic shock; J96.22 Acute and chronic respiratory failure with hypercapnia; J96.21 Acute and chronic respiratory failure with hypoxia; N39.0 Urinary tract infection, site not specified; Z16.12 Extended spectrum beta lactamase (ESBL) resistance; J44.0 Chronic obstructive pulmonary disease with (acute) lower respiratory infection; J44.1 Chronic obstructive pulmonary disease with (acute) exacerbation; I48.21 Permanent atrial fibrillation; Z66 Do not resuscitate; A41.51 Sepsis due to Escherichia coli [E. coli]; I11.0 Hypertensive heart disease with heart failure; F03.C0 Unspecified dementia, severe, without behavioral disturbance, psychotic disturbance, mood disturbance, and anxiety; I44.7 Left bundle-branch block, unspecified; Z79.01 Long term (current) use of anticoagulants; R32 Unspecified urinary incontinence; D64.9 Anemia, unspecified; E78.00 Pure hypercholesterolemia, unspecified; R53.81 Other malaise; R53.1 Weakness; I08.3 Combined rheumatic disorders of mitral, aortic and tricuspid valves; G25.81 Restless legs syndrome; H40.9 Unspecified glaucoma; H91.93 Unspecified hearing loss, bilateral; F41.9 Anxiety disorder, unspecified; F32.A Depression, unspecified; I27.20 Pulmonary hypertension, unspecified; N93.9 Abnormal uterine and vaginal bleeding, unspecified; Z95.0 Presence of cardiac pacemaker; Z86.73 Personal history of transient ischemic attack (TIA), and cerebral infarction without residual deficits; Z86.16 Personal history of COVID-19; Z79.82 Long term (current) use of aspirin; Z79.899 Other long term (current) drug therapy; Z88.1 Allergy status to other antibiotic agents
CPT/HCPCS: 36415; 51702; 71045; 80053; 81000; 82274; 82607; 82728; 82947; 83540; 83550; 83605; 83735; 83880; 84100; 85007; 85025; 85027; 85045; 85055; 85610; 85730; 86141; 86850; 86900; 86901; 86920; 87040; 87077; 87081; 87088; 87186; 87636; 93005; 94640; 94660

== ENCOUNTER 2023-01-01 01:10 | Inpatient (IN) | payer MEDICARE ==
[2023-01-01] VITALS (11 sets, daily range): BP systolic 102–209; BP diastolic 57–104
[~2023-01-01 01:10] MED LIST changes: +ALBU8.5H6 INH; +FERR325T24 PO; +RISP0.5T65 PO; +SENN-271 PO; -SENN1TAB76 PO
[2023-01-01] MEDS ORDERED: RT-ALBUTEROL SULF 2.5 MG/3 ML PRE-MIX VIAL ONE (01:26)
[2023-01-01] MEDS ORDERED: morphine INJ 10 MG/ML 1ML (SYR OR VIAL) IVP STA (01:42)
[2023-01-01] MEDS ORDERED: NITROGLYCERIN 2% OINT 1 GM UNIT DOSE PACKET TOP ONE (01:45)
[2023-01-01] MEDS ORDERED: FUROSEMIDE 40 MG/4 ML INJ (LASIX) IVP ONE (01:45)
[2023-01-01] MEDS ORDERED: RT-ALBUTEROL SULF 2.5 MG/3 ML PRE-MIX VIAL INH ONE (01:45)
[2023-01-01 01:52] LABS: BILIRUBIN,URINE NEGATIVE (NEGATIVE); CLARITY,URINE CLEAR; COLOR,URINE YELLOW; GLUCOSE, URINE (UA) NEGATIVE (NEGATIVE); KETONES,URINE NEGATIVE (NEGATIVE); LEUKOCYTE ESTERASE ,URINE NEGATIVE (NEGATIVE); NITRITE,URINE NEGATIVE (NEGATIVE); PROTEIN,URINE TRACE (NEGATIVE)
[2023-01-01 01:53] LABS: BASOPHILS # (AUTO) 0.1 10^3/uL (0.0-0.1); BASOPHILS % (AUTO) 0 % (0-10); EOSINOPHILS # (AUTO) 0.6 10^3/uL (0.0-0.3); EOSINOPHILS % (AUTO) 2 % (0-10); HEMATOCRIT 39 % (35-52); HEMOGLOBIN 11.7 g/dL (11.5-16.0); LYMPHOCYTES # (AUTO) 4.9 10^3/uL (1.0-4.0); LYMPHOCYTES % (AUTO) 18 % (12-44); MEAN CORPUSCULAR HEMOGLOBIN 26 pg (25-34); MEAN CORPUSCULAR HGB CONC 30 g/dL (32-36); MEAN CORPUSCULAR VOLUME 87 fL (80-99); MEAN PLATELET VOLUME 11.4 fL (9.0-12.2); MONOCYTES # (AUTO) 1.8 10^3/uL (0.0-1.0); MONOCYTES % (AUTO) 6 % (0-12); NEUTROPHILS # (AUTO) 20.5 10^3/uL (1.8-7.8); NEUTROPHILS % (AUTO) 73 % (42-75); PLATELET COUNT 358 10^3/uL (130-400); WHITE BLOOD COUNT 28.1 10^3/uL (4.3-11.0)
[2023-01-01 01:57] LABS: CHLORIDE 103 MMOL/L (98-107); POTASSIUM 3.8 MMOL/L (3.6-5.0); SODIUM 141 MMOL/L (135-145)
[2023-01-01 01:58] LABS: CALCIUM 8.8 MG/DL (8.5-10.1)
[2023-01-01 01:59] LABS: GLUCOSE 144 MG/DL (70-105)
[2023-01-01 02:00] LABS: CARBON DIOXIDE 24 MMOL/L (21-32)
[2023-01-01 02:01] LABS: BILIRUBIN,TOTAL 0.6 MG/DL (0.1-1.0)
[2023-01-01 02:03] LABS: ALKALINE PHOSPHATASE 99 U/L (40-136); CREATININE SERUM 0.82 MG/DL (0.60-1.30); GFR ESTIMATED 72
[2023-01-01 02:04] LABS: BUN/CREATININE RATIO 26
[2023-01-01 02:05] LABS: BACTERIA,URINE NEGATIVE /HPF; HYALINE CASTS, URINE 0-2 /LPF
[2023-01-01 02:06] LABS: ALANINE AMINOTRANSFERASE 14 U/L (0-55)
[2023-01-01 02:19] LABS: EOSINOPHILS % (MANUAL) 2 %; LYMPHOCYTES % (MANUAL) 20 %; MONOCYTES % (MANUAL) 8 %; NEUTROPHILS % (MANUAL) 70 %
[2023-01-01 02:20] LABS: ANISOCYTOSIS SLIGHT; BURR CELLS SLIGHT; ELLIPT/OVALOCYTES MODERATE
[2023-01-01 02:31] LABS: ABG BASE EXCESS 0.1 MMOL/L (-2.5-2.5); ABG OXYGEN SATURATION 100 % (94-100); ABG PCO2 46 MMHG (35-45); ABG PH 7.35 (7.37-7.43); ABG PO2 128 MMHG (79-93); ABG TCO2 26.4 MMOL/L (21.0-31.0); ALLENS TEST YES-POS
[2023-01-01 02:32] LABS: INSPIRED O2 100%; VENTILATOR NO
--- NOTE | 2023-01-01 02:40 | ED Respiratory ---
General Chief Complaint: Respiratory Problems Stated Complaint: SOA Source: long term records Exam Limitations: clinical condition History of Present Illness Date Seen by Provider: Jan 01, 2023 Time Seen by Provider: 01:15 Initial Comments Patient is an 82-year-old female brought to the emergency room by EMS from a local long term chief complaint respiratory distress, hypoxia. Patient has a history of COPD, congestive heart failure. She also has a history of dementia which limits ability to acquire history. Patient noted to be in significant respiratory distress transferred immediately from [facility] to BiPAP on arrival. Tachypneic in the 30s. Sats 79% per EMS on 5L PNC prior to arrival. Heart rate 76. Blood pressure 143/86. senior living records report that the patient is normally conversational. Prior medical records reviewed, multiple previous admissions almost on a monthly basis for similar presentations. Patient is a DNR. Timing/Duration: just prior to arrival Severity: severe Prior Episodes/Possible Cause: occasional episodes Allergies and Home Medications Allergies Coded Allergies: doxycycline (Unverified Allergy, Mild, 11/26/17) Patient Home Medication List Home Medication List Reviewed: Yes Albuterol Sulfate (Ventolin Hfa) 90 Mcg Hfa.aer.ad, 2 PUFF INH Q6H PRN for SHORTNESS OF BREATH, (Reported) Entered as Reported by: ABHIJEET FELIEP on 11/29/22 1406 Last Action: Held Alprazolam (Xanax) 0.25 Mg Tablet, 0.25 MG PO HS, (Reported) Entered as Reported by: ABHIJEET FELIPE on 06/01/22 1114 Last Action: Continued Amitriptyline HCl (Amitriptyline HCl) 25 Mg Tablet, 25 MG PO HS, (Reported) Entered as Reported by: SREEDHAR MCMANUS on 09/26/20 1610 Last Action: Continued Apixaban (Eliquis) 5 Mg Tablet, 5 MG PO Q12H, (Reported) Entered as Reported by: ABHIJEET FELIPE on 02/24/21 1308 Last Action: Held Ascorbate Calcium (Vitamin C) 500 Mg Tablet, 500 MG PO BID, (Reported) Entered as Reported by: ABHIJEET FELIPE on 06/01/22 1114 Last Action: Held Aspirin (Aspirin) 81 Mg Tab.chew, 81 MG PO DAILY, (Reported) Entered as Reported by: ABHIJEET FELIPE on 11/08/22 1134 Last Action: Continued Cholecalciferol (Vitamin D3) (Vitamin D3) 25 Mcg (1000 Unit) Capsule, 25 MCG PO DAILY, (Reported) Entered as Reported by: ABHIJEET FELIPE on 03/28/22 1424 Last Action: Held Citalopram Hydrobromide (Citalopram HBr) 10 Mg Tablet, 10 MG PO HS, (Reported) Entered as Reported by: ABHIJEET FELIPE on 02/24/21 1308 Last Action: Continued Docusate Sodium (Docusate Sodium) 100 Mg Capsule, 100 MG PO BID, (Reported) Entered as Reported by: ABHIJEET FELIPE on 06/01/22 1114 Last Action: Held Ferrous Sulfate (Ferosul) 325 Mg (65 Mg Iron) Tablet, 325 MG PO BID WITH MEALS Prescribed by: MARCO A CÁRDENAS on 12/05/22 1029 Last Action: Continued Fluticasone/Vilanterol (Breo Ellipta 200-25 Mcg INH) 200 Mcg-25 Mcg/Dose Blst.w.dev, 1 PUFF INH DAILY, (Reported) Entered as Reported by: ABHIJEET FELIPE on 06/01/22 111 Last Action: Continued Furosemide (Furosemide) 40 Mg Tablet, 60 MG PO DAILY, (Reported) Entered as Reported by: ABHIJEET FELIPE on 03/28/22 1156 Last Action: Continued Gabapentin (Neurontin) 300 Mg Capsule, 300 MG PO TID, (Reported) Entered as Reported by: ABHIJEET FELIPE on 06/01/22 111 Last Action: Continued Hydrocodone/Acetaminophen (Hydrocodone-Acetamin 5-325 mg) 5 Mg-325 Mg Tablet, 1 TAB PO Q6H PRN for PAIN-MODERATE (5-7), (Reported) Entered as Reported by: ABHIJEET FELIPE on 06/01/22 111 Last Action: Continued Latanoprost (Xalatan) 2.5 Ml Drops, 1 DROP OU HS, (Reported) Entered as Reported by: ABHIJEET FELIPE on 09/28/20 0910 Last Action: Continued Lisinopril (Lisinopril) 20 Mg Tablet, 20 MG PO DAILY, (Reported) Entered as Reported by: ABHIJEET FELIPE on 11/08/22 1134 Last Action: Continued Magnesium Hydroxide (Milk of Magnesia) 2,400 Mg/10 Ml Oral.susp, 30 ML PO DAILY PRN for CONSTIPATION-7TH LINE, (Reported) Entered as Reported by: ABHIJEET FELIPE on 06/01/22 111 Last Action: Held Menthol (Biofreeze) 4 % Gel..ml., 1 APPLIC TP TID, (Reported) Entered as Reported by: ABHIJEET FELIPE on 11/08/221133 Last Action: Held Menthol (Biofreeze) 4 % Gel..ml., 1 APPLIC TP DAILY PRN for PAIN BREAKTROUGH, (Reported) Entered as Reported by: ABHIJEET FELIPE on 11/08/221133 Last Action: Held Metoprolol Succinate (Metoprolol Succinate) 50 Mg Tab.er.24h, 50 MG PO DAILY, (Reported) Entered as Reported by: ABHIJEET FELIPE on 11/08/221133 Last Action: Continued Potassium Chloride (Potassium Chloride) 20 Meq Tab.er.prt, 20 MEQ PO DAILY, (Reported) Entered as Reported by: ABHIJEET FELIPE on 03/28/22 1156 Last Action: Continued Risperidone (Risperidone) 0.5 Mg Tablet, 0.5 MG PO HS Prescribed by: Lisa Hutchinson on 01/01/23 1634 Last Action: Held Ropinirole HCl (Ropinirole HCl) 1 Mg Tablet, 1 MG PO HS, (Reported) Entered as Reported by: ESTEFANÍA FIORE on 11/26/17 0843 Last Action: Continued Tramadol HCl (Tramadol HCl) 50 Mg Tablet, 50 MG PO Q12H PRN for PAIN-MODERATE (5-7), (Reported) Entered as Reported by: ABHIJEET FELIPE on 06/01/22 111 Last Action: Held Vit A/C/E/Zinc/Co (Preservision Areds Softgel) 14,320-226 Capsule, 1 CAP PO DAILY, (Reported) Entered as Reported by: ABHIJEET FELIPE on 03/28/22 1424 Last Action: Held Review of Systems Review of Systems Constitutional: see HPI Unable to obtain secondary to clinical condition and patient's dementia Past Ghrmlin-Whjzou-Wyulqw Hx Immunizations Up To Date First/Initial COVID19 Vaccinat: 2020 Second COVID19 Vaccination Ronald: 2020 Third COVID19 Vaccination Date: 2020 Seasonal Allergies Seasonal Allergies: Yes Past Medical History Surgery/Hospitalization HX: COPD, PACEMAKER, resp failure Surgeries: Yes Section, Pacemaker, Tonsillectomy Respiratory: Yes Asthma, Sleep Apnea, COPD Currently Using CPAP: No Cardiac: Yes (CHF; LBBB) Atrial Fibrillation, High Cholesterol, Hypertension, Valvular Heart Disease Neurological: Yes (rest less leg syndrome) Dementia, Stroke Reproductive Disorders: No Sexually Transmitted Disease: No HIV/AIDS: No Genitourinary: Yes Renal Failure Gastrointestinal: Yes Gastroesophageal Reflux, Chronic Constipation Musculoskeletal: Yes (WHEELCHAIR BOUND) Arthritis, Chronic Back Pain Endocrine: No 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 0.6oz. 77.843640zd; 22.55 BMI Method:Stated General Appearance: moderate distress, thin Eyes: Bilateral Eye Normal Inspection, Bilateral Eye PERRL HEENT: PERRL/EOMI Neck: normal inspection Respiratory: rhonchi, wheezing Cardiovascular: regular rate, rhythm, tachycardia, systolic murmur (over the precordium), other ((hypertensive on arrival)) Gastrointestinal: normal bowel sounds, non tender, soft Extremities: normal inspection, no pedal edema, normal capillary refill Neurologic/Psychiatric: alert Skin: normal color, warm/dry Focused Exam Lactate Level 01/01/23 01:17: Lactic Acid Level 3.08*H 01/01/23 05:00: Lactic Acid Level 1.53 Time of Focused Exam: 03:10 Respiratory: No Accessory Muscle Use, No Respiratory Distress, Wheezing (mild (improved) + bilateral crackles), Other (tolerating Bipap well) Cardiovascular: Regular Rate, Rhythm Capillary Refill: Less Than 3 Seconds Skin: warm/dry, pallor Lactic Acid Level Laboratory Tests Test 01/01/23 01:17 01/01/23 05:00 Lactic Acid Level 3.08 MMOL/L (0.50-2.00) *H 1.53 MMOL/L (0.50-2.00) Within 3hrs of presentation: Admin fluids, Admin ABX, Blood cultures prior to ABX's, Focus exam, Lactate level Progress/Results/Core Measures Suspected Sepsis SIRS Temperature: Pulse: 93 Respiratory Rate: 29 Laboratory Tests 01/01/23 01:17: White Blood Count 28.1H Blood Pressure 209 /104 Mean: 01/01/23 01:17: Lactic Acid Level 3.08*H 01/01/23 05:00: Lactic Acid Level 1.53 Laboratory Tests 01/01/23 01:17: Creatinine 0.82, Platelet Count 358, Total Bilirubin 0.6 01/01/23 02:00: INR Comment 1.4 Results/Orders Lab Results Laboratory Tests Test 01/01/23 01:17 01/01/23 01:29 01/01/23 02:00 01/01/23 02:20 Range/Units White Blood Count 28.1 H 4.3-11.0 10^3/uL Red Blood Count 4.49 3.80-5.11 10^6/uL Hemoglobin 11.7 11.5-16.0 g/dL Hematocrit 39 35-52 % Mean Corpuscular Volume 87 80-99 fL Mean Corpuscular Hemoglobin 26 25-34 pg Mean Corpuscular Hemoglobin Concent 30 L 32-36 g/dL Red Cell Distribution Width 24.8 H 10.0-14.5 % Platelet Count 358 130-400 10^3/uL Mean Platelet Volume 11.4 9.0-12.2 fL Immature Granulocyte % (Auto) 1 % Neutrophils (%) (Auto) 73 42-75 % Lymphocytes (%) (Auto) 18 12-44 % Monocytes (%) (Auto) 6 0-12 % Eosinophils (%) (Auto) 2 0-10 % Basophils (%) (Auto) 0 0-10 % Neutrophils # (Auto) 20.5 H 1.8-7.8 10^3/uL Lymphocytes # (Auto) 4.9 H 1.0-4.0 10^3/uL Monocytes # (Auto) 1.8 H 0.0-1.0 10^3/uL Eosinophils # (Auto) 0.6 H 0.0-0.3 10^3/uL Basophils # (Auto) 0.1 0.0-0.1 10^3/uL Immature Granulocyte # (Auto) 0.2 H 0.0-0.1 10^3/uL Neutrophils % (Manual) 70 % Lymphocytes % (Manual) 20 % Monocytes % (Manual) 8 % Eosinophils % (Manual) 2 % Anisocytosis SLIGHT Negro Cells SLIGHT Elliptocytes MODERATE Sodium Level 141 135-145 MMOL/L Potassium Level 3.8 3.6-5.0 MMOL/L Chloride Level 103 98-107 MMOL/L Carbon Dioxide Level 24 21-32 MMOL/L Anion Gap 14 5-14 MMOL/L Blood Urea Nitrogen 21 H 7-18 MG/DL Creatinine 0.82 0.60-1.30 MG/DL Estimat Glomerular Filtration Rate 72 BUN/Creatinine Ratio 26 Glucose Level 144 H 70-105 MG/DL Lactic Acid Level 3.08 *H 0.50-2.00 MMOL/L Calcium Level 8.8 8.5-10.1 MG/DL Corrected Calcium 8.8 8.5-10.1 MG/DL Total Bilirubin 0.6 0.1-1.0 MG/DL Aspartate Amino Transf (AST/SGOT) 14 5-34 U/L Alanine Aminotransferase (ALT/SGPT) 14 0-55 U/L Alkaline Phosphatase 99 40-136 U/L Troponin I < 0.028 <0.028 NG/ML B-Type Natriuretic Peptide 1566.6 H <100.0 PG/ML Total Protein 7.0 6.4-8.2 GM/DL Albumin 4.0 3.2-4.5 GM/DL Urine Color YELLOW Urine Clarity CLEAR Urine pH 6.0 5-9 Urine Specific [place] 1.025 H 1.016-1.022 Urine Protein TRACE H NEGATIVE Urine Glucose (UA) NEGATIVE NEGATIVE Urine Ketones NEGATIVE NEGATIVE Urine Nitrite NEGATIVE NEGATIVE Urine Bilirubin NEGATIVE NEGATIVE Urine Urobilinogen 0.2 < = 1.0 MG/DL Urine Leukocyte Esterase NEGATIVE NEGATIVE Urine RBC (Auto) NEGATIVE NEGATIVE Urine RBC NONE /HPF Urine WBC NONE /HPF Urine Crystals NONE /LPF Urine Bacteria NEGATIVE /HPF Urine Casts PRESENT /LPF Urine Hyaline Casts 0-2 H /LPF Urine Mucus NEGATIVE /LPF Urine Culture Indicated NO Prothrombin Time 18.1 H 12.2-14.7 SEC INR Comment 1.4 0.8-1.4 Activated Partial Thromboplast Time 32 24-35 SEC Blood Gas Puncture Site LR Blood Gas Patient Temperature UNK Arterial Blood pH 7.35 L 7.37-7.43 Arterial Blood Partial Pressure CO2 46 H 35-45 MMHG Arterial Blood Partial Pressure O2 128 H 79-93 MMHG Arterial Blood HCO3 25 23-27 MMOL/L Arterial Blood Total CO2 26.4 21.0-31.0 MMOL/L Arterial Blood Oxygen Saturation 100 94-100 % Arterial Blood Base Excess 0.1 -2.5-2.5 MMOL/L Goran Test YES-POS Blood Gas Ventilator Setting NO Blood Gas Inspired Oxygen 100% Test 01/01/23 05:00 Range/Units Lactic Acid Level 1.53 0.50-2.00 MMOL/L My Orders Orders - DIMAS HERNANDEZ MD Albuterol Pre-Mix Nebs (Rt) (Proventil (01/01/23 01:26) Cbc With Automated Diff (01/01/23:42) Comprehensive Metabolic Panel (01/01/23:42) Blood Culture (01/01/23:42) Sputum Culture (01/01/23:42) Urinalysis (01/01/23:42) Urine Culture (01/01/23:42) Protime With Inr (01/01/23:42) Partial Thromboplastin Time (01/01/23 01:42) Chest 1 View, Ap/Pa Only (01/01/23 01:42) Ed Iv/Invasive Line Start (01/01/23:42) Ed Iv/Invasive Line Start (01/01/23:42) Vital Signs Adult Sepsis Patie Q15M (01/01/23 01:42) O2 (01/01/23:42) Remove Rings In Anticipation O (01/01/23:42) Lactic Acid Analyzer (01/01/23:42) Furosemide Injection (Lasix Injection) (01/01/23:45) Morphine Injection (Morphine Injection (01/01/23:42) Nitroglycerin Ointment (Nitrobid Ointme (01/01/23 01:45) Ekg Tracing (01/01/23:42) Bnp Cameron (01/01/23:42) Troponin I Cameron (01/01/23 01:42) Albuterol Pre-Mix Nebs (Rt) (Proventil (01/01/23 01:45) Svn Small Volume Nebulizer (01/01/23 01:42) Manual Differential (01/01/23 01:17) Arterial Blood Gas (01/01/23 02:14) Cefepime Injection (Maxipime Injection) (01/01/23 02:45) Code/Resuscitation (01/01/23 04:33) Medications Given in ED Vital Signs/I&O 01/01/23 01/01/23 01/01/23 01:12 01:12 01:33 Pulse 97 93 Resp 25 29 B/P (MAP) 196/128 (150) Pulse Ox 96 82 93 O2 Delivery NIV Bilevel NIV CPAP O2 Flow Rate 100.00 Capillary Refill : Progress Note : Time: 03:27 Progress Note re-evaluated; BP down to 115 systolic. Wheezing improved after albuterol.. tolreating bipap well. Blood gas looks good. Cefepime given for pneumonia, Will decreased FiO2 from 100% to 70% Patient seen and evaluated by me, evaluation today includes physical exam, "septic work-up" to include CBC, Chem-12, coags, blood cultures, lactic acid, BNP, UA, chest x-ray. In light of cardiac history BNP, EKG and troponin were a lso obtained. ABG. Pertinent physical exam findings elderly female in moderate distress. Eyes closed, tolerating BiPAP. Coarse wet wheezy breath sounds on initial auscultation. Tachycardia. Systolic murmur. soft abdomen, nondistended. No lower extremity edema. Patient has a history of dementia, neurologic exam did not suggest any focal deficits however she is very confused and had difficulty answering questions. Differential diagnosis based on history and physical, acute exacerbation of congestive heart failure, acute exacerbation of COPD, pneumonia/sepsis, pulmonary embolism. Patient treated initially when placed on BiPAP with 2 mg of morphine for air hunger and to help tolerate the BiPAP, she was also given 80 mg of Lasix IV, quick review of the long term records reveal that she is on 60 mg p.o. daily. Nitropaste was also placed to facilitate diuresis. Labs reviewed, CBC is shows significant leukocytosis with a white blood cell count of 28,000. 73% segs. Chemistry unremarkable other than glucose of 144. Lactic acid 3.08. BNP 1566. Troponin undetectable. Urinalysis was unremarkable for any signs of infection. Coags showed a PT of 18, INR and PTT within normal limits. Chest x-ray demonstrates return of significant right lower lobe pneumonia. Left side appears improved from prior chest x-ray 1 month ago. ABG was reassuring. Patient tolerated the BiPAP throughout her emergency department stay. She was not given IV fluids secondary to concern for volume overload. She is a DNR/DNI. Concern for furthering volume overload which would throw her into further respiratory failure. Antibiotics, cefepime and Vanco started for hospital- acquired pneumonia. Case was discussed with Dr. Williamson on for the hospitalist service. Will admit to the medical floor inpatient ECG Initial ECG Impression Date: Jan 01, 2023 Initial ECG Impression Time: 03:26 Initial ECG Rate: 77 Initial ECG Rhythm: Normal Sinus Comment Left bundle branch block similar to prior EKGs Diagnostic Imaging Diagonstic Imaging: Xray Plain Films/CT/US/NM/MRI: chest Comments Independent interpretation of chest x-ray by me, right lower lobe infiltrate; improved aeration of the left as compared to prior film from 3 weeks ago Critical Care Note Critical Care Start Time: 01:15 Stop Time: 03:00 Total Time (minutes) 30 minutes critical care time in evaluation and management of this 82-year-old female with respiratory distress. Time includes initial evaluation, management of hypoxia with BiPAP. Review of prior medical records and hospitalizations/discharge summaries. Review of long term record. Review and interpretation of labs, imaging. Serial reevaluation of the patient's respiratory status on BiPAP. Administration of antibiotics, discussion with admitting provider. Departure Communication (Admissions) Time/Spoke to Admitting Phy: 03:[address] Williamson (Hospitalist) Impression Primary Impression: Acute and chronic respiratory failure with hypoxia Additional Impressions: Right lower lobe pneumonia Qualified Codes: J18.9 - Pneumonia, unspecified organism CHF (congestive heart failure) Qualified Codes: I50.9 - Heart failure, unspecified Disposition: ADMITTED INPATIENT Condition: Stable Admissions Decision to Admit Reason: Admit from ER (General) Decision to Admit/Date: Jan 01, 2023 Time/Decision to Admit Time: 03:38 Departure-Patient Inst. Referrals: JUSTIN JOHNSON MD (PCP/Family) Primary Care Physician Scripts Risperidone (Risperidone) 0.5 Mg Tablet 0.5 MG PO HS for 30 Days, #60 TAB Prov: MARCO A CÁRDENAS MD 01/01/23 DIMAS HERNANDEZ MD Jan 01, 2023 02:40
[2023-01-01] MEDS ORDERED: CEFEPIME INJECTION 1,000 MG in NS (IVPB) 50 ML IV ONE (02:45)
[2023-01-01 04:55] LABS: INR 1.4 (0.8-1.4); PROTHROMBIN TIME PATIENT 18.1 SEC (12.2-14.7)
[2023-01-01] MEDS ORDERED: VANCOMYCIN 1250MG/250ML PREMIX 250 ML IV ONE (06:30)
--- NOTE | 2023-01-01 07:35 | Diagnostic Imaging Report ---
INDICATION: Shortness of air, hypoxia. TECHNIQUE: Single view chest 1:42 AM. CORRELATION STUDY: 12/04/2022 FINDINGS: Heart size enlarged. Vasculature is increased. Right-sided pacemaker, stable. Opacities lung base right significantly greater than left persisting. Small effusions. IMPRESSION: 1. There appears to be worsening overall edema. Superposed infiltrate or atelectasis and/or edema both lung bases right greater than left. Dictated by: Dictated on workstation # [id number]
[2023-01-01] MEDS: APIXABAN 5 MG (ELIQUIS) TABLET PO SCH ×2 (09:05→20:13)
[2023-01-01] MEDS: CEFEPIME 1,000 MG/NS 50 ML IVPB IV SCH ×4 (09:06→17:33)
[2023-01-01] MEDS ORDERED: RT-ALBUTEROL SULF 2.5 MG/3 ML PRE-MIX VIAL INH PRN (10:15)
[2023-01-01] MEDS: RT-ALBUTEROL/IPRATROPIUM 3 ML (DUONEB) VIAL INH SCH ×4 (10:24→22:17)
[2023-01-01] MEDS ORDERED: LORazepam 0.5 MG (ATIVAN) TABLET PO PRN (13:30)
[2023-01-01] MEDS: CATHETER FLUSH 10 ML SYR IVP SCH ×2 (13:42→20:14)
[2023-01-01] MEDS ORDERED: LACTULOSE SYRUP 10GM/15ML (ENULOSE) 30ML UDC PO PRN (16:15)
[2023-01-01] MEDS ORDERED: BISACODYL 10 MG SUPP (DULCOLAX) PR PRN (16:15)
[2023-01-01] MEDS ORDERED: ACETAMINOPHEN 325 MG TABLET PO PRN (16:15)
[2023-01-01] MEDS ORDERED: MILK OF MAGNESIA 400 MG/5 ML 30 ML UDC PO PRN (16:15)
[2023-01-01] MEDS ORDERED: polyethylene glycoL POWDER 17 GM (MIRALAX) PACK PO PRN (16:15)
[2023-01-01] MEDS ORDERED: ONDANSETRON 4 MG (ZOFRAN) ORAL DISSOLVE TAB PO PRN (16:15)
[2023-01-01] MEDS ORDERED: ONDANSETRON 4 MG/2 ML (SDV) Z0FRAN IV PRN (16:15)
[2023-01-01] MEDS ORDERED: hydrALAZINE (APESOLINE) 20 MG/ML VIAL IV PRN (16:15)
[2023-01-01] MEDS ORDERED: ANTACID SUSP 30 ML UDC (MYLANTA) PO PRN (16:15)
[2023-01-01] MEDS ORDERED: CALCIUM CARBONATE 500 MG (TUMS) TAB.CHEW PO PRN (16:15)
[2023-01-01] MEDS ORDERED: MELATONIN 3 MG TABLET PO PRN (16:15)
[2023-01-01] MEDS ORDERED: morphine INJ 4 MG/ML 1 ML (VIAL/SYRINGE) IVP PRN (16:15)
[2023-01-01] MEDS ORDERED: RISP0.5T65 PO (16:34)
--- NOTE | 2023-01-01 19:40 | History & Physical-Hospitalist ---
History of Present Illness HPI/Chief Complaint Citlaly Salazar is an 82 year old female with PMH advanced dementia, HTN, COPD, AFib, HFpEF, history of CVA, who presented with shortness of breath. She was brought in from her facility due to respiratory distress and hypoxia. She was found to be hypoxic in the 70s. She was put on BiPAP. She is unable to provide any history. Upon my exam, she does answer questions. She reports no complaints. She denies shortness of breath. There is no family present. Source: RN/MD Exam Limitations: clinical condition Date Seen 01/01/23 Time Seen by a Provider: 11:35 Attending Physician Jason Boudreaux MD PCP Admitting Physician: Becky Williamson MD Attending Physician: Marco A Cárdenas MD Referring Physician Date of Admission Jan 01, 2023 at 05:03 Home Medications & Allergies Home Medications Reviewed patient Home Medication Reconciliation performed by pharmacy medication reconciliations facilities operations technician and/or nursing. Patients Allergies have been reviewed. Allergies Allergies Coded Allergies doxycycline (Unverified Allergy, Mild, 11/26/17) Past Pwzardn-Pzgntb-Bfykel Hx Immunizations Up To Date Date of Influenza Vaccine: Oct 08, 2022 First/Initial COVID19 Vaccinat: 2020 Second COVID19 Vaccination Ronald: 2020 Tetanus Booster (TDap): Unknown Hepatitis A: Yes Hepatitis B: Yes Date of Pneumonia Vaccine: Oct 30, 2016 Seasonal Allergies Seasonal Allergies: Yes Current Status Advance Directives: Yes Advance Directive Location: Copy placed in chart Communicates: Verbally Primary Language: Kuwaiti Preferred Spoken Language: Kuwaiti Sensory deficits: Vision impairment, Hearing impairment Implanted or Applied Medical D: BiPAP, Pacemaker Past Medical History Surgeries: Section, Pacemaker, Tonsillectomy Asthma, Sleep Apnea, COPD Currently Using CPAP: No Atrial Fibrillation, High Cholesterol, Hypertension, Valvular Heart Disease Dementia, Stroke Sexually Transmitted Disease: No HIV/AIDS: No Renal Failure Gastroesophageal Reflux, Chronic Constipation Arthritis, Chronic Back Pain Glaucoma Loss of Vision: Bilateral Hearing Impairment: Hard of Hearing Anxiety, Depression Blood Disorders: No Adverse Reaction/Blood Tranf: No (N/A) Family Medical History Heart Disease, COPD, Renal Disease, Other Conditions/Hx Review of Systems Constitutional: see HPI Physical Exam Physical Exam Vital Signs Vital Signs - First Documented 01/01/23 01/01/23 01/01/23 01/01/23 01:12 01:33 05:43 05:47 Temp 36.2 Pulse 97 Resp 25 B/P (MAP) 196/128 (150) Pulse Ox 96 O2 Delivery NIV Bilevel O2 Flow Rate 100.00 FiO2 50 Capillary Refill : Less Than 3 Seconds Height, Weight, BMI Height: 5'4.00" Weight: 182lbs. 0.6oz. 77.289762hi; 22.55 BMI Method:Stated General Appearance: No Apparent Distress, Chronically ill HEENT: PERRL/EOMI, Other (wearing BiPAP) Neck: Normal Inspection, Supple Respiratory: No Respiratory Distress, Decreased Breath Sounds, Other (wearing BIPAP) Cardiovascular: Regular Rate, Rhythm, Systolic Murmur Gastrointestinal: Normal Bowel Sounds, Soft Extremity: Normal Inspection, No Pedal Edema Neurologic/Psychiatric: Alert Skin: Normal Color, Warm/Dry Results Results/Procedures Labs Laboratory Tests 01/01/23 01:17 Patient resulted labs reviewed. Imaging: Reviewed Imaging Report Assessment/Plan Admission Diagnosis Severe sepsis Admission Status: Inpatient Order (span 2 midnights) Reason for Inpatient Admission: IV antibiotics BIPAP Assessment and Plan Severe sepsis HCAP Lactic acidosis Acute on chronic respiratory failure with hypoxia SIRS+ with leukocytosis, tachycardia, and tachypnea CXR with bibasilar infiltrates Lactic acid elevated, normalized on repeat check Gentle IV fluids Vanc and Cefepime Supplemental oxygen as needed MAT protocol HTN COPD HFpEF AFib Advanced dementia Continue home meds as able Palliative care consulted Diagnosis/Problems Diagnosis/Problems (1) Severe sepsis Status: Acute (2) Lactic acidosis Status: Acute (3) Pneumonia of both lower lobes Status: Acute (4) Acute on chronic respiratory failure with hypoxemia Status: Acute (5) Permanent atrial fibrillation Status: Chronic (6) Primary hypertension Status: Chronic (7) Advanced dementia Status: Chronic (8) Chronic heart failure with preserved ejection fraction (HFpEF) Status: Chronic (9) COPD (chronic obstructive pulmonary disease) MARCO A CÁRDENAS MD Jan 01, 2023 19:40
[2023-01-01] MEDS: ALPRAZolam 0.25 MG (XANAX) TAB PO SCH (20:13)
[2023-01-01] MEDS: LATANOPROST 0.005% (XALATAN) OPHTH SOLN 2.5 ML OU SCH (20:13)
[2023-01-01] MEDS: AMITRIPTYLINE 25 MG (ELAVIL) TAB PO SCH (20:13)
[2023-01-01] MEDS: GABAPENTIN 300 MG (NEURONTIN) CAP PO SCH (20:13)
[2023-01-01] MEDS: SENNOSIDES 8.6 MG (SENOKOT) TAB PO SCH (20:13)
[2023-01-01] MEDS: DOCUSATE SODIUM 100 MG (COLACE) CAP PO SCH (20:13)
[2023-01-01] MEDS: rOPINIRole 1 MG (REQUIP) TABLET PO SCH (20:13)
[2023-01-02] VITALS (7 sets, daily range): BP systolic 107–136; BP diastolic 61–70
[2023-01-02] MEDS: RT-ALBUTEROL/IPRATROPIUM 3 ML (DUONEB) VIAL INH SCH ×6 (02:20→22:27)
[2023-01-02] MEDS: CATHETER FLUSH 10 ML SYR IVP SCH ×3 (02:37→19:50)
[2023-01-02] MEDS: CEFEPIME 1,000 MG/NS 50 ML IVPB IV SCH ×6 (02:37→17:25)
[2023-01-02 05:43] LABS: BASOPHILS % (AUTO) 0 % (0-10); EOSINOPHILS # (AUTO) 0.1 10^3/uL (0.0-0.3); EOSINOPHILS % (AUTO) 1 % (0-10); HEMATOCRIT 30 % (35-52); HEMOGLOBIN 9.3 g/dL (11.5-16.0); LYMPHOCYTES # (AUTO) 0.8 10^3/uL (1.0-4.0); LYMPHOCYTES % (AUTO) 7 % (12-44); MEAN CORPUSCULAR HEMOGLOBIN 26 pg (25-34); MEAN CORPUSCULAR HGB CONC 31 g/dL (32-36); MEAN CORPUSCULAR VOLUME 84 fL (80-99); MEAN PLATELET VOLUME 10.8 fL (9.0-12.2); MONOCYTES # (AUTO) 0.8 10^3/uL (0.0-1.0); MONOCYTES % (AUTO) 7 % (0-12); NEUTROPHILS # (AUTO) 9.4 10^3/uL (1.8-7.8); NEUTROPHILS % (AUTO) 84 % (42-75); PLATELET COUNT 215 10^3/uL (130-400); WHITE BLOOD COUNT 11.2 10^3/uL (4.3-11.0)
[2023-01-02 05:54] LABS: POTASSIUM 3.2 MMOL/L (3.6-5.0)
[2023-01-02 05:55] LABS: CALCIUM 8.5 MG/DL (8.5-10.1)
[2023-01-02 06:00] LABS: CREATININE SERUM 0.7 MG/DL (0.60-1.30)
[2023-01-02] MEDS: KCL 20 MEQ TAB (K-DUR) PO SCH (06:14)
[2023-01-02] MEDS ORDERED: VANCOMYCIN 1 GM/NS 250 ML IVPB IV SCH ×2 (07:00)
[2023-01-02] MEDS: DOCUSATE SODIUM 100 MG (COLACE) CAP PO SCH ×2 (07:30→20:39)
[2023-01-02] MEDS: SENNOSIDES 8.6 MG (SENOKOT) TAB PO SCH ×2 (07:30→20:39)
[2023-01-02] MEDS: FERROUS SULF 325 MG (IRON) TAB PO SCH ×2 (08:35→17:25)
[2023-01-02] MEDS: lisINopril 20 MG (PRINIVIL) TABLET PO SCH (08:35)
[2023-01-02] MEDS: GABAPENTIN 300 MG (NEURONTIN) CAP PO SCH ×3 (08:35→19:47)
[2023-01-02] MEDS: APIXABAN 5 MG (ELIQUIS) TABLET PO SCH ×2 (08:36→19:47)
[2023-01-02] MEDS: FUROSEMIDE 40 MG (LASIX) TAB PO SCH (08:36)
[2023-01-02] MEDS: ASPIRIN 81 MG CHEW (CHILDREN'S ASA) PO SCH (08:36)
[2023-01-02] MEDS: meTOproloL SUCCINATE 50 MG (TOPROL XL) TAB PO SCH (08:36)
[2023-01-02] MEDS ORDERED: FLUTICASONE/VILANTEROL 200 MCG 14'S (BREO) IH SCH (09:00)
[2023-01-02] MEDS: RT--FLUTICASONE/SALMETEROL 232-14 (AIRDUO RespiCLICK) IH SCH ×2 (10:51→22:27)
--- NOTE | 2023-01-02 17:47 | Progress Note - Hospitalist ---
Subjective HPI/CC On Admission Date Seen by Provider: Jan 02, 2023 Time Seen by Provider: 11:25 Citlaly Salazar is an 82 year old female with PMH advanced dementia, HTN, COPD, AFib, HFpEF, history of CVA, who presented with shortness of breath. She was brought in from her facility due to respiratory distress and hypoxia. She was found to be hypoxic in the 70s. She was put on BiPAP. She is unable to provide any history. Upon my exam, she does answer questions. She reports no complaints. She denies shortness of breath. There is no family present. Subjective/Events-last exam She is doing well. She reports foot pain. She has no other complaints. Focused Exam Lactate Level 01/01/23 01:17: Lactic Acid Level 3.08*H 01/01/23 05:00: Lactic Acid Level 1.53 Time of Focused Exam: 03:10 Objective Exam Vital Signs Vital Signs Date Time Temp Pulse Resp B/P (MAP) Pulse Ox O2 Delivery O2 Flow Rate FiO2 01/02/23 15:29 36.3 64 17 118/70 (86) 98 High Flow N/C 4.00 01/02/23 08:00 50 Capillary Refill : Less Than 3 Seconds General Appearance: No Apparent Distress, Chronically ill Respiratory: No Respiratory Distress, Crackles Cardiovascular: Regular Rate, Rhythm, No Murmur Gastrointestinal: Normal Bowel Sounds, Soft Extremity: Normal Inspection, Pedal Edema Neurologic/Psychiatric: Alert, Disoriented Results/Procedures Lab Laboratory Tests 01/02/23 05:25 Patient resulted labs reviewed. Imaging: Reviewed Imaging Report Assessment/Plan Assessment and Plan Assess & Plan/Chief Complaint Severe sepsis HCAP Lactic acidosis Acute on chronic respiratory failure with hypoxia Transition to Augmentin Supplemental oxygen as needed, back to baseline MAT protocol Likely discharge back to [facility] tomorrow HTN COPD HFpEF AFib Advanced dementia Continue home meds as able Palliative care following Diagnosis/Problems Diagnosis/Problems (1) Severe sepsis Status: Acute (2) Lactic acidosis Status: Acute (3) Pneumonia of both lower lobes Status: Acute (4) Acute on chronic respiratory failure with hypoxemia Status: Acute (5) Permanent atrial fibrillation Status: Chronic (6) Primary hypertension Status: Chronic (7) Advanced dementia Status: Chronic (8) Chronic heart failure with preserved ejection fraction (HFpEF) Status: Chronic (9) COPD (chronic obstructive pulmonary disease) MARCO A CÁRDENAS MD Jan 02, 2023 17:47
[2023-01-02] MEDS: AUGMENTIN 875 MG TAB (AMOXICILLIN/CLAVULANATE) PO SCH (18:04)
[2023-01-02] MEDS: rOPINIRole 1 MG (REQUIP) TABLET PO SCH (19:47)
[2023-01-02] MEDS: ALPRAZolam 0.25 MG (XANAX) TAB PO SCH (19:47)
[2023-01-02] MEDS: AMITRIPTYLINE 25 MG (ELAVIL) TAB PO SCH (19:47)
[2023-01-02] MEDS: HYDROcodone/APAP 5 MG/325 MG (LORTAB) TAB PO PRN (19:48)
[2023-01-02] MEDS: LATANOPROST 0.005% (XALATAN) OPHTH SOLN 2.5 ML OU SCH (19:49)
[2023-01-03] MEDS: RT-ALBUTEROL/IPRATROPIUM 3 ML (DUONEB) VIAL INH SCH ×3 (02:40→10:57)
[2023-01-03 03:47] VITALS: BP 131/68
[2023-01-03] MEDS: KCL 20 MEQ TAB (K-DUR) PO SCH (05:42)
[2023-01-03] MEDS: CATHETER FLUSH 10 ML SYR IVP SCH ×2 (05:42→13:47)
[2023-01-03] MEDS ORDERED: TROUGH ORDER-PHARMACY XX ONE (06:00)
[2023-01-03] MEDS: RT--FLUTICASONE/SALMETEROL 232-14 (AIRDUO RespiCLICK) IH SCH (07:39)
[2023-01-03 07:52] VITALS: BP 127/58
[2023-01-03] MEDS: FERROUS SULF 325 MG (IRON) TAB PO SCH (08:21)
[2023-01-03] MEDS: DOCUSATE SODIUM 100 MG (COLACE) CAP PO SCH (08:21)
[2023-01-03] MEDS: SENNOSIDES 8.6 MG (SENOKOT) TAB PO SCH (08:21)
[2023-01-03] MEDS: ASPIRIN 81 MG CHEW (CHILDREN'S ASA) PO SCH (08:21)
[2023-01-03] MEDS: GABAPENTIN 300 MG (NEURONTIN) CAP PO SCH ×2 (08:21→13:47)
[2023-01-03] MEDS: FUROSEMIDE 40 MG (LASIX) TAB PO SCH (08:22)
[2023-01-03] MEDS: AUGMENTIN 875 MG TAB (AMOXICILLIN/CLAVULANATE) PO SCH (08:22)
[2023-01-03] MEDS: APIXABAN 5 MG (ELIQUIS) TABLET PO SCH (08:22)
[2023-01-03] MEDS: HYDROcodone/APAP 5 MG/325 MG (LORTAB) TAB PO PRN (08:29)
[2023-01-03 09:53] LABS: HEMATOCRIT 31 % (35-52); HEMOGLOBIN 9.6 g/dL (11.5-16.0); MEAN CORPUSCULAR HEMOGLOBIN 26 pg (25-34); MEAN CORPUSCULAR HGB CONC 31 g/dL (32-36); MEAN CORPUSCULAR VOLUME 85 fL (80-99); MEAN PLATELET VOLUME 10.9 fL (9.0-12.2); PLATELET COUNT 238 10^3/uL (130-400); WHITE BLOOD COUNT 8.2 10^3/uL (4.3-11.0)
[2023-01-03 10:16] LABS: CALCIUM 8.7 MG/DL (8.5-10.1); CREATININE SERUM 0.67 MG/DL (0.60-1.30); MAGNESIUM 1.8 MG/DL (1.6-2.4); POTASSIUM 3.3 MMOL/L (3.6-5.0)
[2023-01-03] MEDS: meTOproloL SUCCINATE 50 MG (TOPROL XL) TAB PO SCH (10:36)
[2023-01-03] MEDS: lisINopril 20 MG (PRINIVIL) TABLET PO SCH (10:37)
[2023-01-03 11:08] VITALS: BP 126/76
[2023-01-03] MEDS ORDERED: AMOX1TAB12 PO (11:53)
[2023-01-03 13:30] VITALS: BP 126/76
== END 2023-01-03 14:10 | DRG 871 ==
LOC: EDUNIT# 01:10 → ER 01:12 → 4TH 05:03
PROVIDERS: ADMIT Family Medicine; ATTEND Internal Medicine
PROC: 5A09357 Assistance with Respiratory Ventilation, Less than 24 Consecutive Hours, Continuous Positive Airway Pressure (ICD-10-PCS; principal; 2023-01-01)
DX: A41.9 Sepsis, unspecified organism (principal); J18.9 Pneumonia, unspecified organism; J96.21 Acute and chronic respiratory failure with hypoxia; I50.32 Chronic diastolic (congestive) heart failure; E87.20 Acidosis, unspecified; I48.21 Permanent atrial fibrillation; J44.9 Chronic obstructive pulmonary disease, unspecified; R65.20 Severe sepsis without septic shock; Z66 Do not resuscitate; I11.0 Hypertensive heart disease with heart failure; E78.00 Pure hypercholesterolemia, unspecified; G47.30 Sleep apnea, unspecified; G25.81 Restless legs syndrome; F03.90 Unspecified dementia, unspecified severity, without behavioral disturbance, psychotic disturbance, mood disturbance, and anxiety; Y95 Nosocomial condition; K21.9 Gastro-esophageal reflux disease without esophagitis; K59.09 Other constipation; M19.90 Unspecified osteoarthritis, unspecified site; F41.8 Other specified anxiety disorders; H54.3 Unqualified visual loss, both eyes; Z79.51 Long term (current) use of inhaled steroids; Z79.82 Long term (current) use of aspirin; Z79.899 Other long term (current) drug therapy; Z95.0 Presence of cardiac pacemaker; Z98.890 Other specified postprocedural states; Z86.73 Personal history of transient ischemic attack (TIA), and cerebral infarction without residual deficits
CPT/HCPCS: 36415; 36600; 71045; 80048; 80053; 81000; 82805; 83605; 83735; 83880; 84484; 85007; 85025; 85027; 85610; 85730; 87040; 87088; 93005; 94640; 94660; 94760

== ENCOUNTER 2023-02-05 08:09 | Inpatient (IN) | payer MEDICARE, MEDICAID ==
[~2023-02-05] VITALS: Ht 166 cm; Wt 59.5 kg
[~2023-02-05 08:09] MED LIST changes: +AMOX1TAB12 PO
[2023-02-05] MEDS ORDERED: NS IV 500 ML 500 ML IV STA (08:18)
--- NOTE | 2023-02-05 08:23 | ED Respiratory ---
General Chief Complaint: Respiratory Problems Stated Complaint: SOB Nursing Triage Note: PT BROUGHT IN BY EMS FROM FACILITY AFTER STAFF FOUND PT HYPOXIC WITH O2 OFF FOR AN UNKNOWN AMOUNT OF TIME. PT WEARS 2L PER NC BASELINE. PT PLACED ON NRB 15L EN ROUTE BY EMS. PT A&O TO PERSON ONLY, WHICH EMS REPORTS IS BASELINE. Source: patient, RN/MD, EMS, long term records Exam Limitations: clinical condition History of Present Illness Date Seen by Provider: February 05, 2023 Time Seen by Provider: 08:10 Initial Comments 82-year-old female with past medical history of chronic hypoxic respiratory failure between 3 to 5 L O2, dementia, A-fib on Eliquis coming in via EMS from the long term due to low oxygen. She is typically on 2 L at nighttime, was not on it last night, and 1 day this morning, she is breathing rapidly and very hypoxic. They placed her on a nonrebreather, and the highest her oxygen saturation got for EMS was in the mid to high 80s. The patient denies being in any pain at this time, and she is really unclear what is going on. She is DNR and has paperwork stating so. Further elements of the history and physical were unable to be obtained as the patient is altered and also has baseline dementia. Allergies and Home Medications Allergies Coded Allergies: doxycycline (Unverified Allergy, Mild, 11/26/17) Patient Home Medication List Home Medication List Reviewed: Yes Albuterol Sulfate (Ventolin Hfa) 90 Mcg Hfa.aer.ad, 2 PUFF INH Q6H PRN for SHORTNESS OF BREATH, (Reported) Entered as Reported by: ABHIJEET FELIPE on 11/29/22 1406 Alprazolam (Xanax) 0.25 Mg Tablet, 0.25 MG PO HS, (Reported) Entered as Reported by: ABHIJEET FELIPE on 06/01/22 1114 Amitriptyline HCl (Amitriptyline HCl) 25 Mg Tablet, 25 MG PO HS, (Reported) Entered as Reported by: SREEDHAR MCMANUS on 09/26/20 1610 Amoxicillin/Potassium Clav (Amox Tr-K Clv 875-125 mg Tab) 875 Mg-125 Mg Tablet, 875 MG PO BID WITH MEALS Prescribed by: MARCO A CÁRDENAS on 01/03/23 1153 Apixaban (Eliquis) 5 Mg Tablet, 5 MG PO Q12H, (Reported) Entered as Reported by: ABHIJEET FELIPE on 02/24/21 1308 Ascorbate Calcium (Vitamin C) 500 Mg Tablet, 500 MG PO BID, (Reported) Entered as Reported by: ABHIJEET FELIPE on 06/01/22 1114 Aspirin (Aspirin) 81 Mg Tab.chew, 81 MG PO DAILY, (Reported) Entered as Reported by: ABHIJEET FELIPE on 11/08/22 1134 Cholecalciferol (Vitamin D3) (Vitamin D3) 25 Mcg (1000 Unit) Capsule, 25 MCG PO DAILY, (Reported) Entered as Reported by: ABHIJEET FELIPE on 03/28/22 1424 Citalopram Hydrobromide (Citalopram HBr) 10 Mg Tablet, 10 MG PO HS, (Reported) Entered as Reported by: ABHIJEET FELIPE on 02/24/21 1308 Docusate Sodium (Docusate Sodium) 100 Mg Capsule, 100 MG PO BID, (Reported) Entered as Reported by: ABHIJEET FELIPE on 06/01/22 1114 Ferrous Sulfate (Ferosul) 325 Mg (65 Mg Iron) Tablet, 325 MG PO BID WITH MEALS Prescribed by: MARCO A CÁRDENAS on 12/05/22 1029 Fluticasone/Vilanterol (Breo Ellipta 200-25 Mcg INH) 200 Mcg-25 Mcg/Dose Blst.w.dev, 1 PUFF INH DAILY, (Reported) Entered as Reported by: ABHIJEET FELIPE on 06/01/22 1114 Furosemide (Furosemide) 40 Mg Tablet, 60 MG PO DAILY, (Reported) Entered as Reported by: ABHIJEET FELIPE on 03/28/22 1156 Gabapentin (Neurontin) 300 Mg Capsule, 300 MG PO TID, (Reported) Entered as Reported by: ABHIJEET FELIPE on 06/01/22 1114 Hydrocodone/Acetaminophen (Hydrocodone-Acetamin 5-325 mg) 5 Mg-325 Mg Tablet, 1 TAB PO Q6H PRN for PAIN-MODERATE (5-7), (Reported) Entered as Reported by: ABHIJEET FELIPE on 06/01/22 1114 Latanoprost (Xalatan) 2.5 Ml Drops, 1 DROP OU HS, (Reported) Entered as Reported by: ABHIJEET FELIPE on 09/28/20 0910 Lisinopril (Lisinopril) 20 Mg Tablet, 20 MG PO DAILY, (Reported) Entered as Reported by: ABHIJEET FELIPE on 11/08/22 1134 Magnesium Hydroxide (Milk of Magnesia) 2,400 Mg/10 Ml Oral.susp, 30 ML PO DAILY PRN for CONSTIPATION-7TH LINE, (Reported) Entered as Reported by: ABHIJEET FELIPE on 06/01/22 1114 Menthol (Biofreeze) 4 % Gel..ml., 1 APPLIC TP TID, (Reported) Entered as Reported by: ABHIJEET FELIPE on 11/08/22 1134 Menthol (Biofreeze) 4 % Gel..ml., 1 APPLIC TP DAILY PRN for PAIN BREAKTROUGH, (Reported) Entered as Reported by: ABHIJEET FELIPE on 11/08/22 1134 Metoprolol Succinate (Metoprolol Succinate) 50 Mg Tab.er.24h, 50 MG PO DAILY, (Reported) Entered as Reported by: ABHIJEET FELIPE on 11/08/22 1134 Potassium Chloride (Potassium Chloride) 20 Meq Tab.er.prt, 20 MEQ PO DAILY, (Reported) Entered as Reported by: ABHIJEET FELIPE on 03/28/22 1156 Risperidone (Risperidone) 0.5 Mg Tablet, 0.5 MG PO HS Prescribed by: Lisa Hutchinson on 01/01/23 1634 Ropinirole HCl (Ropinirole HCl) 1 Mg Tablet, 1 MG PO HS, (Reported) Entered as Reported by: ESTEFANÍA FIORE on 11/26/17 0843 Tramadol HCl (Tramadol HCl) 50 Mg Tablet, 50 MG PO Q12H PRN for PAIN-MODERATE (5-7), (Reported) Entered as Reported by: ABHIJEET FELIPE on 06/01/22 1114 Vit A/C/E/Zinc/Co (Preservision Areds Softgel) 14,320-226 Capsule, 1 CAP PO DAILY, (Reported) Entered as Reported by: ABHIJEET FELIPE on 03/28/22 1424 Review of Systems Review of Systems Constitutional: No fever Respiratory: cough, short of breath Cardiovascular: No chest pain Past Erjhros-Njwhiu-Vvicyv Hx Patient Social History Tobacco Use?: No Substance use?: Unable to obtain Alcohol Use?: Unable to obtain Pt feels they are or have been: Unable to obtain Immunizations Up To Date First/Initial COVID19 Vaccinat: 2020 Second COVID19 Vaccination Ronald: 2020 Third COVID19 Vaccination Date: 2020 Seasonal Allergies Seasonal Allergies: Yes Past Medical History Surgery/Hospitalization HX: COPD, PACEMAKER, resp failure, ANEMIA, CHF, PNA, RENAL FAILURE, HTN, AFIB, UTI Surgeries: Yes Section, Pacemaker, Tonsillectomy Respiratory: Yes Asthma, Sleep Apnea, COPD Currently Using CPAP: No Cardiac: Yes (CHF; LBBB) Atrial Fibrillation, High Cholesterol, Hypertension, Valvular Heart Disease Neurological: Yes (rest less leg syndrome) Dementia, Stroke Reproductive Disorders: No Sexually Transmitted Disease: No HIV/AIDS: No Genitourinary: Yes Renal Failure Gastrointestinal: Yes Gastroesophageal Reflux, Chronic Constipation Musculoskeletal: Yes (WHEELCHAIR BOUND) Arthritis, Chronic Back Pain Endocrine: No 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 0.6oz. 77.442766tx; 19.00 BMI Method:Stated General Appearance: moderate distress, thin, other (Chronically ill-appearing) Eyes: Bilateral Eye Normal Inspection, Bilateral Eye PERRL HEENT: PERRL/EOMI, normal ENT inspection, pharynx normal Neck: non-tender, full range of motion, supple, normal inspection Respiratory: chest non-tender, respiratory distress, accessory muscle use, rhonchi, wheezing Cardiovascular: no edema, systolic murmur Gastrointestinal: normal bowel sounds, non tender, soft; No distended, No guarding, No rebound Extremities: normal range of motion, non-tender, normal inspection, no pedal edema, no calf tenderness, normal capillary refill Neurologic/Psychiatric: alert, other (Oriented to self only, moving all extremities equally) Skin: normal color, warm/dry Focused Exam Lactate Level 02/05/23 08:34: Lactic Acid Level 2.88*H Lactic Acid Level Laboratory Tests Test 02/05/23 08:34 Lactic Acid Level 2.88 MMOL/L (0.50-2.00) *H Progress/Results/Core Measures Suspected Sepsis SIRS Temperature: Pulse: 70 Respiratory Rate: 46 Laboratory Tests 02/05/23 08:25: White Blood Count 24.8H Blood Pressure 150 /94 Mean: 112 02/05/23 08:34: Lactic Acid Level 2.88*H Laboratory Tests 02/05/23 08:25: Creatinine 0.84, INR Comment 1.4, Platelet Count 319, Total Bilirubin 1.7H Results/Orders Lab Results Laboratory Tests Test 02/05/23 08:25 02/05/23 08:34 02/05/23 08:35 02/05/23 08:36 Range/Units White Blood Count 24.8 H 4.3-11.0 10^3/uL Red Blood Count 4.50 3.80-5.11 10^6/uL Hemoglobin 12.4 11.5-16.0 g/dL Hematocrit 42 35-52 % Mean Corpuscular Volume 93 80-99 fL Mean Corpuscular Hemoglobin 28 25-34 pg Mean Corpuscular Hemoglobin Concent 30 L 32-36 g/dL Red Cell Distribution Width 19.8 H 10.0-14.5 % Platelet Count 319 130-400 10^3/uL Mean Platelet Volume 11.5 9.0-12.2 fL Immature Granulocyte % (Auto) 1 % Neutrophils (%) (Auto) 73 42-75 % Lymphocytes (%) (Auto) 14 12-44 % Monocytes (%) (Auto) 5 0-12 % Eosinophils (%) (Auto) 8 0-10 % Basophils (%) (Auto) 1 0-10 % Neutrophils # (Auto) 18.0 H 1.8-7.8 10^3/uL Lymphocytes # (Auto) 3.4 1.0-4.0 10^3/uL Monocytes # (Auto) 1.2 H 0.0-1.0 10^3/uL Eosinophils # (Auto) 1.9 H 0.0-0.3 10^3/uL Basophils # (Auto) 0.2 H 0.0-0.1 10^3/uL Immature Granulocyte # (Auto) 0.1 0.0-0.1 10^3/uL Neutrophils % (Manual) 71 % Lymphocytes % (Manual) 12 % Monocytes % (Manual) 8 % Eosinophils % (Manual) 7 % Band Neutrophils 2 % Poikilocytosis SLIGHT Anisocytosis SLIGHT Elliptocytes SLIGHT Prothrombin Time 17.4 H 12.2-14.7 SEC INR Comment 1.4 0.8-1.4 Activated Partial Thromboplast Time 31 24-35 SEC Venous Blood pH 7.24 L 7.31-7.41 Venous Blood Partial Pressure CO2 78 H 40-52 MMHG Venous Blood HCO3 32 H 22-28 MMOL/L Sodium Level 145 135-145 MMOL/L Potassium Level 3.5 L 3.6-5.0 MMOL/L Chloride Level 104 98-107 MMOL/L Carbon Dioxide Level 27 21-32 MMOL/L Anion Gap 14 5-14 MMOL/L Blood Urea Nitrogen 17 7-18 MG/DL Creatinine 0.84 0.60-1.30 MG/DL Estimat Glomerular Filtration Rate 70 BUN/Creatinine Ratio 20 Glucose Level 207 H 70-105 MG/DL Calcium Level 9.4 8.5-10.1 MG/DL Corrected Calcium 9.6 8.5-10.1 MG/DL Total Bilirubin 1.7 H 0.1-1.0 MG/DL Aspartate Amino Transf (AST/SGOT) 14 5-34 U/L Alanine Aminotransferase (ALT/SGPT) 8 0-55 U/L Alkaline Phosphatase 83 40-136 U/L Troponin I 0.036 H <0.028 NG/ML B-Type Natriuretic Peptide 1712.1 H <100.0 PG/ML Total Protein 7.3 6.4-8.2 GM/DL Albumin 3.8 3.2-4.5 GM/DL Lactic Acid Level 2.88 *H 0.50-2.00 MMOL/L SARS-CoV-2 RNA (RT-PCR) Not Detected Not Detecte Blood Gas Puncture Site NA Blood Gas Patient Temperature 36.6 Arterial Blood pH 7.33 *L 7.37-7.43 Arterial Blood Partial Pressure CO2 63 H 35-45 MMHG Arterial Blood Partial Pressure O2 74 L 79-93 MMHG Arterial Blood HCO3 33 H 23-27 MMOL/L Arterial Blood Total CO2 34.5 H 21.0-31.0 MMOL/L Arterial Blood Oxygen Saturation 94 94-100 % Arterial Blood Base Excess 6.7 H -2.5-2.5 MMOL/L Goran Test NA Blood Gas Ventilator Setting NO Blood Gas Inspired Oxygen 100% My Orders Orders - ART BAIG MD Cbc With Automated Diff (02/05/23 08:18) Comprehensive Metabolic Panel (02/05/23 08:18) Blood Culture (02/05/23 08:18) Sputum Culture (02/05/23 08:18) Protime With Inr (02/05/23 08:18) Partial Thromboplastin Time (02/05/23 08:18) Chest 1 View, Ap/Pa Only (02/05/23 08:18) Ed Iv/Invasive Line Start (02/05/23 08:18) Ed Iv/Invasive Line Start (02/05/23 08:18) Ekg Tracing (02/05/23 08:18) Troponin I Aries (02/05/23 08:18) Vital Signs Adult Sepsis Patie Q15M (02/05/23 08:18) O2 (02/05/23 08:18) Remove Rings In Anticipation O (02/05/23 08:18) Lactic Acid Analyzer (02/05/23 08:18) Cefepime Injection (Maxipime Injection) (02/05/23 08:30) Bnp [place] (02/05/23 08:18) Covid 19 Inhouse Test (02/05/23 08:18) Albuterol/Ipra Inhalation Soln (Duoneb I (02/05/23 08:30) Rt Ed Bilevel Assessment (02/05/23 08:18) Venous Blood Gas (02/05/23 08:20) Bipap (Bilevel) Set Up (02/05/23 08:29) Manual Differential (02/05/23 08:25) Arterial Blood Gas (02/05/23 08:37) Furosemide Injection (Lasix Injection) (02/05/23 09:00) Medications Given in ED Current Medications Medications Dose Ordered Sig/Jimi Route Start Time Stop Time Status Last Admin Dose Admin Albuterol/ Ipratropium 3 ml ONCE ONCE INH 02/05/23 08:30 02/05/23 08:31 DC 02/05/23 08:45 3 ML Cefepime HCl 1000 mg/Sodium Chloride 50 ml @ 100 mls/hr ONCE ONCE IV 02/05/23 08:30 02/05/23 08:59 DC 02/05/23 09:02 100 MLS/HR Furosemide 80 mg ONCE ONCE IVP 02/05/23 09:00 02/05/23 09:01 DC 02/05/23 09:16 80 MG Vital Signs/I&O 02/05/23 02/05/23 02/05/23 02/05/23 08:10 08:10 08:26 08:26 Temp 36.6 Pulse 70 49 Resp 46 43 B/P (MAP) 150/94 (112) Pulse Ox 81 93 O2 Delivery Non Rebreather Non Rebreather O2 Flow Rate 15.00 15.00 100.00 100.00 FiO2 81 02/05/23 08:40 Pulse 91 Resp 43 B/P (MAP) 172/81 (111) Pulse Ox 95 O2 Delivery NIV Bilevel Capillary Refill : Less Than 3 Seconds Blood Pressure Mean: 112 Progress Note : Progress Note 82-year-old female presenting in respiratory distress. The patient was hypoxic on a nonrebreather on arrival in severe distress. She was immediately placed on BiPAP by respiratory therapy with improvement in her oxygen saturation and work of breathing. An IV was placed and basic labs were obtained including a septic work-up. She is mildly hypertensive, and in the past has been volume overloaded. Because of this, I did not want to give her fluids and potentially push more fluid into her lungs and making her more distress. Particularly, the patient is DNI, and she does not have much reserve left to go if she were to worsen. I think IV fluids could be very harmful to the patient at this time. She was given antibiotics as well as a DuoNeb and IV Lasix. Chest x-ray with cardiomegaly and pulmonary vascular congestion on my interpretation. Labs significant for leukocytosis, likely a type II NSTEMI, normal creatinine, mildly elevated lactic acid, slightly low pH. EKG with no acute ischemic changes on my interpretation. I contacted the carton forming machine operator, and he would like to get an echo. I then contacted the hospitalist who will admit the patient to the intensive care unit. This was after discussing with the patient's DPOA that she would like treatment at this time, and they would be interested in hospice if she does not improve. I then gave signout to the intensive care unit physician. ECG Initial ECG Impression Date: February 05, 2023 Initial ECG Impression Time: 08:26 Initial ECG Rate: 98 Comment Wide QRS with a left bundle branch block, no STEMI, appears similar to prior EKG, no discernible P waves Diagnostic Imaging Diagonstic Imaging: Xray (chest) Comments NAME: LUCITA [facility]O [facility] REC#: [id number] PT STATUS: REG ER : 1940 PHYSICIAN: ART BAIG MD ADMIT DATE: 02/05/23/ER Signed Date of Exam:02/05/23 CHEST 1 VIEW, AP/PA ONLY INDICATION: Respiratory distress. Comparison is made with prior examination of 01/01/2023. FINDINGS: There is cardiomegaly. There is some venous congestion. There may be a small left pleural effusion. There is no pneumothorax. The mediastinum is unremarkable. Pacemaker overlies right hemithorax. IMPRESSION: Cardiomegaly and some central pulmonary venous congestion with a left pleural effusion Dictated by: Dictated on workstation # [id number] Dict: 02/05/23 0848 Trans: 02/05/23 0852 [facility] [id number] Interpreted by: ROSALINDA FRANK MD Electronically signed by: ROSALINDA FRANK MD 02/05/23 0852 Departure Impression Primary Impression: Acute and chronic respiratory failure with hypoxia Additional Impressions: Acute on chronic heart failure with preserved ejection fraction (HFpEF) NSTEMI (non-ST elevated myocardial infarction) Disposition: 09 ADMITTED INPATIENT Condition: Stable Admissions Decision to Admit Reason: Admit from ER (General) Decision to Admit/Date: February 05, 2023 Time/Decision to Admit Time: 09:35 Departure-Patient Inst. Referrals: JUSTIN JOHNSON MD (PCP/Family) Primary Care Physician ART BAIG MD February 05, 2023 08:23
[2023-02-05 08:26] VITALS: BP 173/151
[2023-02-05] MEDS ORDERED: RT-ALBUTEROL/IPRATROPIUM 3 ML (DUONEB) VIAL INH ONE (08:30)
[2023-02-05] MEDS ORDERED: CEFEPIME INJECTION 1,000 MG in NS (IVPB) 50 ML IV ONE (08:30)
[2023-02-05 08:32] LABS: BASOPHILS # (AUTO) 0.2 10^3/uL (0.0-0.1); BASOPHILS % (AUTO) 1 % (0-10); EOSINOPHILS # (AUTO) 1.9 10^3/uL (0.0-0.3); EOSINOPHILS % (AUTO) 8 % (0-10); HEMATOCRIT 42 % (35-52); HEMOGLOBIN 12.4 g/dL (11.5-16.0); LYMPHOCYTES # (AUTO) 3.4 10^3/uL (1.0-4.0); LYMPHOCYTES % (AUTO) 14 % (12-44); MEAN CORPUSCULAR HEMOGLOBIN 28 pg (25-34); MEAN CORPUSCULAR HGB CONC 30 g/dL (32-36); MEAN CORPUSCULAR VOLUME 93 fL (80-99); MEAN PLATELET VOLUME 11.5 fL (9.0-12.2); MONOCYTES # (AUTO) 1.2 10^3/uL (0.0-1.0); MONOCYTES % (AUTO) 5 % (0-12); NEUTROPHILS % (AUTO) 73 % (42-75); PLATELET COUNT 319 10^3/uL (130-400); WHITE BLOOD COUNT 24.8 10^3/uL (4.3-11.0)
[2023-02-05 08:42] LABS: ABG BASE EXCESS 6.7 MMOL/L (-2.5-2.5); ABG OXYGEN SATURATION 94 % (94-100); ABG PCO2 63 MMHG (35-45); ABG PO2 74 MMHG (79-93); ABG TCO2 34.5 MMOL/L (21.0-31.0)
[2023-02-05 08:44] LABS: INR 1.4 (0.8-1.4); PROTHROMBIN TIME PATIENT 17.4 SEC (12.2-14.7)
[2023-02-05 08:46] LABS: ABG PH 7.33 (7.37-7.43)
[2023-02-05 08:47] LABS: INSPIRED O2 100%; PATIENT TEMP 36.6; VENTILATOR NO
[2023-02-05 08:47] LABS: ALBUMIN 3.8 GM/DL (3.2-4.5); POTASSIUM 3.5 MMOL/L (3.6-5.0)
[2023-02-05 08:49] LABS: CALCIUM 9.4 MG/DL (8.5-10.1)
[2023-02-05 08:50] LABS: TOTAL PROTEIN 7.3 GM/DL (6.4-8.2)
[2023-02-05 08:52] LABS: BILIRUBIN,TOTAL 1.7 MG/DL (0.1-1.0)
[2023-02-05 08:53] LABS: CREATININE SERUM 0.84 MG/DL (0.60-1.30)
--- NOTE | 2023-02-05 08:54 | Diagnostic Imaging Report ---
INDICATION: Respiratory distress. Comparison is made with prior examination of 01/01/2023. FINDINGS: There is cardiomegaly. There is some venous congestion. There may be a small left pleural effusion. There is no pneumothorax. The mediastinum is unremarkable. Pacemaker overlies right hemithorax. IMPRESSION: Cardiomegaly and some central pulmonary venous congestion with a left pleural effusion Dictated by: Dictated on workstation # [id number]
[2023-02-05] MEDS ORDERED: FUROSEMIDE 40 MG/4 ML INJ (LASIX) IVP ONE (09:00)
[2023-02-05 09:05] LABS: ANISOCYTOSIS SLIGHT; BAND NEUTROPHILS 2 %; ELLIPT/OVALOCYTES SLIGHT; EOSINOPHILS % (MANUAL) 7 %; LYMPHOCYTES % (MANUAL) 12 %; MONOCYTES % (MANUAL) 8 %; NEUTROPHILS % (MANUAL) 71 %; POIKILOCYTOSIS SLIGHT
[2023-02-05] MEDS ORDERED: ONDANSETRON 4 MG/2 ML (SDV) Z0FRAN IV PRN (10:45)
[2023-02-05 10:53] VITALS: BP 133/76
[2023-02-05] MEDS ORDERED: RT-ALBUTEROL/IPRATROPIUM 3 ML (DUONEB) VIAL INH PRN (11:15)
--- NOTE | 2023-02-05 11:49 | Tele-ICU Consult ---
History of Present Illness History of Present Illness Date Seen by Provider: February 05, 2023 Time Seen by Provider: 11:48 Date of Admission History of Present Illness (Tele-ICU Physician , consultation as per request of PCP Service provided via interactive audio and video tele[employer]-CARE system to a patient admitted to ICU bed in [facility]. Available chart/ vitals / labs / Images reviewed H&P is from ER notes Patient's information available about PMH, Shx, Fhx allergy reviewed inEMR. ROS as per chart and RN report Now in ICU, hemodynamically stable Video assessment done using teleICU camera, rest of exam as per RN Discussed with RN. Hospital course: RECENT admission 11/07 with CHF, +COVID, hypoxic respiratory failure (11/28) 82yr F admitted for Acute on Chronic Respiratory failure, Pneumonia, Copd Exacerbation. DNR status. 11/29 In BIPAP 05/02 30 5 , rr20 , TV 450, levo on/off , Hb 6.7 - 1 uPCBC ordered 12/04 - bipap night , 6 L NC day - - on precedex 0.8 12/05 - OFF PRECEDEX A/P Acute resp failure, hypoxic- most likely due to CHF - placed on NIPPV , -tolerates BIPAP well -10/01 85% rr 30 TV 390 MV11L -to cont with f/up HFpEF - Echo on 10/09/22: LVEF 65-70%. Biatrial enlargement, mod to severe. Mild to mod MAC. Mild MR. Mod . Mild AI - cont diuresis - ? cards consult mod - severe aortic stenosis - monitor , as per cads note prior - -not a candidate for any intervvention - off IVF leukocytosis ( recent tx PNA ,RLL, HAP vs aspiration - merrem - finished 12/03 - covid neg in ER ( s/p recent covid 11/2022 -cxr with possible infiltrates - started empirically on cefepime - UA pending ( 11/2022 - UTI with e coli Elev lactate - due to hypoxix , not represent severity of sepsis - no boluses NS for Tx Pulm HTN , -Echo on 10/09/22: PASP 70-75 mmHg - fluis status is chalenging given COPD, cronic resp failure - nebs A Fib - Sinus now - has been on OAC for stroke prophylaxis 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 Discussed with RN to reach out if any questions or concerns A total of 35 minutes of critical care time was devoted to this patient today, required to treat and/or prevent further deterioration of critical care condition ( as above ) . I am remotely monitoring this patient from another state. I am unable to do the bedside exam, and history/physical and pertinent information is taken from other notes in the computer and bedside staff. . Allergies and Home Medications Allergies Coded Allergies: doxycycline (Unverified Allergy, Mild, 11/26/17) Home Medications Albuterol Sulfate 90 Mcg Hfa.aer.ad, 2 PUFF INH Q6H PRN for SHORTNESS OF BREATH, (Reported) Alprazolam 0.25 Mg Tablet, 0.25 MG PO HS, (Reported) Amitriptyline HCl 25 Mg Tablet, 25 MG PO HS, (Reported) Amoxicillin/Potassium Clav 875 Mg-125 Mg Tablet, 875 MG PO BID WITH MEALS Prescribed by: MARCO A CÁRDENAS on 01/03/23 1153 Apixaban 5 Mg Tablet, 5 MG PO Q12H, (Reported) Ascorbate Calcium 500 Mg Tablet, 500 MG PO BID, (Reported) Aspirin 81 Mg Tab.chew, 81 MG PO DAILY, (Reported) Cholecalciferol (Vitamin D3) 25 Mcg (1000 Unit) Capsule, 25 MCG PO DAILY, (Reported) Citalopram Hydrobromide 10 Mg Tablet, 10 MG PO HS, (Reported) Docusate Sodium 100 Mg Capsule, 100 MG PO BID, (Reported) Ferrous Sulfate 325 Mg (65 Mg Iron) Tablet, 325 MG PO BID WITH MEALS Prescribed by: MARCO A CÁRDENAS on 12/05/22 1029 Fluticasone/Vilanterol 200 Mcg-25 Mcg/Dose Blst.w.dev, 1 PUFF INH DAILY, (Reported) RINSE AND SPIT MOUTH WITH WATER AFTER EACH USE Furosemide 40 Mg Tablet, 60 MG PO DAILY, (Reported) TAKES 1 & (20MG) TABS Gabapentin 300 Mg Capsule, 300 MG PO TID, (Reported) Hydrocodone/Acetaminophen 5 Mg-325 Mg Tablet, 1 TAB PO Q6H PRN for PAIN-MODERATE (5-7), (Reported) Latanoprost 2.5 Ml Drops, 1 DROP OU HS, (Reported) Lisinopril 20 Mg Tablet, 20 MG PO DAILY, (Reported) HOLD FOR SBP LESS THAN 100 AND DBP LESS THAN 60 Magnesium Hydroxide 2,400 Mg/10 Ml Oral.susp, 30 ML PO DAILY PRN for CONSTIPATION-7TH LINE, (Reported) Menthol 4 % Gel..ml., 1 APPLIC TP TID, (Reported) APPLY TO KNEES Menthol 4 % Gel..ml., 1 APPLIC TP DAILY PRN for PAIN BREAKTROUGH, (Reported) MAY USE FOR PAIN DURING THERAPY SESSION Metoprolol Succinate 50 Mg Tab.er.24h, 50 MG PO DAILY, (Reported) Potassium Chloride 20 Meq Tab.er.prt, 20 MEQ PO DAILY, (Reported) Risperidone 0.5 Mg Tablet, 0.5 MG PO HS Prescribed by: Lisa Hutchinson on 01/01/23 1634 Ropinirole HCl 1 Mg Tablet, 1 MG PO HS, (Reported) Tramadol HCl 50 Mg Tablet, 50 MG PO Q12H PRN for PAIN-MODERATE (5-7), (Reported) Vit A/C/E/Zinc/Co 14,320-226 Capsule, 1 CAP PO DAILY, (Reported) Past Medical/Social/Family Hx Patient Social History Tobacco Use?: No Substance use?: Unable to obtain Alcohol Use?: Unable to obtain Pt stated abuse/neglect: Unable to obtain Immunizations Up To Date First/Initial COVID19 Vaccinat: 2020 Second COVID19 Vaccination Ronald: 2020 Tetanus Booster (TDap): Unknown Hepatitis A: Yes Hepatitis B: Yes TB Skin Test: None Date of Pneumonia Vaccine: Oct 30, 2016 Current Status status: No Advance Directives: Yes Communicates: Verbally Primary Language: Citizen Of [place] Preferred Spoken Language: Citizen Of [place] Review of Systems Constitutional: see HPI Focused Exam Lactate Level 02/05/23 08:34: Lactic Acid Level 2.88*H 02/05/23 10:28: Lactic Acid Level 1.17 Height, Weight, BMI Height: 5'4.00" Weight: 182lbs. 0.6oz. 77.180259qr; 19.00 BMI Method:Stated Lactic Acid Level Laboratory Tests Test 02/05/23 08:34 02/05/23 10:28 Lactic Acid Level 2.88 MMOL/L (0.50-2.00) *H 1.17 MMOL/L (0.50-2.00) Exam Exam Patient acknowledged, consented, and participated in this virtual visit which was conducted using real time audio/video Vital Signs Date Time Temp Pulse Resp B/P (MAP) Pulse Ox O2 Delivery O2 Flow Rate FiO2 02/05/23 11:15 68 12 151/83 (105) 97 NIV Bilevel 85.00 02/05/23 11:00 63 22 134/69 (90) 97 NIV Bilevel 85.00 02/05/23 10:53 36.6 69 99 85 02/05/23 10:45 67 7 138/69 (92) 97 NIV Bilevel 85.00 02/05/23 10:34 69 02/05/23 10:30 73 9 133/76 (95) 99 NIV Bilevel 85.00 02/05/23 10:15 38.2 02/05/23 10:15 77 9 139/81 (100) 99 NIV Bilevel 85.00 02/05/23 10:00 Nasal Cannula 2.00 02/05/23 09:55 72 35 125/71 99 NIV Bilevel 02/05/23 08:40 91 43 172/81 (111) 95 NIV Bilevel 02/05/23 08:26 49 43 93 100.00 02/05/23 08:26 100.00 02/05/23 08:10 36.6 70 46 150/94 (112) 81 Non Rebreather 15.00 02/05/23 08:10 Non Rebreather 15.00 81 Height & Weight Height: 5'4.00" Weight: 182lbs. 0.6oz. 77.732262im; 19.00 BMI Method:Stated General Appearance: No Apparent Distress Capillary Refill: Less Than 3 Seconds Gastrointestinal: normal bowel sounds, non tender, soft; No distended, No guarding, No rebound Results Lab Laboratory Tests 02/05/23 08:25 Assessment/Plan Assessment/Plan 1 EHSAN FULTON MD February 05, 2023 11:49
[2023-02-05] MEDS ORDERED: ENOXAPARIN 40 MG/0.4 ML (LOVENOX) SYR SC SCH (12:00)
[2023-02-05] MEDS: ENOXAPARIN 60 MG/0.6 ML (LOVENOX) SYR SC SCH ×2 (12:02→22:22)
--- NOTE | 2023-02-05 12:51 | Consultation-Cardiology ---
HPI-Cardiology Cardiology Consultation: Date of Consultation 02/05/23 Date of Admission Attending Physician Jason Boudreaux MD Admitting Physician Admitting Physician: Becky Williamson MD Attending Physician: Becky Williamson MD Consulting Physician Ricardo WHALEY MD HPI: Time Seen by a Provider: 12:47 Chief Complaint: Shortness of breath This is a 82-year-old lady who presents with severe shortness of breath. She has history of atrial fibrillation, pacemaker, left bundle branch block, moderate to severe aortic stenosis. Review of Systems-Cardiology Review of Systems Constitutional: As described under HPI Eyes: As described under HPI Ears/Nose/Throat: As described under HPI Respiratory: shortness of breath Cardiovascular: As described under HPI Gastrointestinal: As described under HPI Genitourinary: As described under HPI Musculoskeletal: As describe under HPI Skin: As described under HPI Psychiatric/Neurological: As described under HPI Hematologic: As described under HPI MXV-Clcowo-Rbuiay Hx Patient Social History Have you traveled recently?: No Alcohol Use?: No Pt feels they are or have been: No Immunizations Up To Date Date of Pneumonia Vaccine: Oct 30, 2016 Date of Influenza Vaccine: Oct 08, 2022 Past Medical History PMH As described under Assessment. Family Medical History Family Medical History: Unable to obtain due to dementia Allergies and Home Medications Allergies Coded Allergies: doxycycline (Unverified Allergy, Mild, 11/26/17) Patient Home Medication List Home Medication List Reviewed: Yes Albuterol Sulfate (Ventolin Hfa) 90 Mcg Hfa.aer.ad, 2 PUFF INH Q6H PRN for SHORTNESS OF BREATH, (Reported) Entered as Reported by: ABHIJEET FELIPE on 11/29/22 1406 Alprazolam (Xanax) 0.25 Mg Tablet, 0.25 MG PO HS, (Reported) Entered as Reported by: ABHIJEET FELIPE on 06/01/22 1114 Amitriptyline HCl (Amitriptyline HCl) 25 Mg Tablet, 25 MG PO HS, (Reported) Entered as Reported by: SREEDHAR MCMANUS on 09/26/20 1610 Amoxicillin/Potassium Clav (Amox Tr-K Clv 875-125 mg Tab) 875 Mg-125 Mg Tablet, 875 MG PO BID WITH MEALS Prescribed by: MARCO A CÁRDENAS on 01/03/23 1153 Apixaban (Eliquis) 5 Mg Tablet, 5 MG PO Q12H, (Reported) Entered as Reported by: ABHIJEET FELIPE on 02/24/21 1308 Ascorbate Calcium (Vitamin C) 500 Mg Tablet, 500 MG PO BID, (Reported) Entered as Reported by: ABHIJEET FELIPE on 06/01/22 1114 Aspirin (Aspirin) 81 Mg Tab.chew, 81 MG PO DAILY, (Reported) Entered as Reported by: ABHIJEET FELIPE on 11/08/22 1134 Cholecalciferol (Vitamin D3) (Vitamin D3) 25 Mcg (1000 Unit) Capsule, 25 MCG PO DAILY, (Reported) Entered as Reported by: ABHIJEET FELIPE on 03/28/22 1424 Citalopram Hydrobromide (Citalopram HBr) 10 Mg Tablet, 10 MG PO HS, (Reported) Entered as Reported by: ABHIJEET FELIPE on 02/24/21 1308 Docusate Sodium (Docusate Sodium) 100 Mg Capsule, 100 MG PO BID, (Reported) Entered as Reported by: ABHIJEET FELIPE on 06/01/22 1114 Ferrous Sulfate (Ferosul) 325 Mg (65 Mg Iron) Tablet, 325 MG PO BID WITH MEALS Prescribed by: MARCO A CÁRDENAS on 12/05/22 1029 Fluticasone/Vilanterol (Breo Ellipta 200-25 Mcg INH) 200 Mcg-25 Mcg/Dose Blst.w.dev, 1 PUFF INH DAILY, (Reported) Entered as Reported by: ABHIJEET FELIPE on 06/01/22 1114 Furosemide (Furosemide) 40 Mg Tablet, 60 MG PO DAILY, (Reported) Entered as Reported by: ABHIJEET FELIPE on 03/28/22 1156 Gabapentin (Neurontin) 300 Mg Capsule, 300 MG PO TID, (Reported) Entered as Reported by: ABHIJEET FELIPE on 06/01/22 1114 Hydrocodone/Acetaminophen (Hydrocodone-Acetamin 5-325 mg) 5 Mg-325 Mg Tablet, 1 TAB PO Q6H PRN for PAIN-MODERATE (5-7), (Reported) Entered as Reported by: ABHIJEET FELIPE on 06/01/22 1114 Latanoprost (Xalatan) 2.5 Ml Drops, 1 DROP OU HS, (Reported) Entered as Reported by: ABHIJEET FELIPE on 09/28/20 0910 Lisinopril (Lisinopril) 20 Mg Tablet, 20 MG PO DAILY, (Reported) Entered as Reported by: ABHIJEET FELIPE on 11/08/22 1134 Magnesium Hydroxide (Milk of Magnesia) 2,400 Mg/10 Ml Oral.susp, 30 ML PO DAILY PRN for CONSTIPATION-7TH LINE, (Reported) Entered as Reported by: ABHIJEET FELIPE on 06/01/22 1114 Menthol (Biofreeze) 4 % Gel..ml., 1 APPLIC TP TID, (Reported) Entered as Reported by: ABHIJEET FELIPE on 11/08/22 1134 Menthol (Biofreeze) 4 % Gel..ml., 1 APPLIC TP DAILY PRN for PAIN BREAKTROUGH, (Reported) Entered as Reported by: ABHIJEET FELIPE on 11/08/22 1134 Metoprolol Succinate (Metoprolol Succinate) 50 Mg Tab.er.24h, 50 MG PO DAILY, (Reported) Entered as Reported by: ABHIJEET FELIPE on 11/08/22 1134 Potassium Chloride (Potassium Chloride) 20 Meq Tab.er.prt, 20 MEQ PO DAILY, (Reported) Entered as Reported by: ABHIJEET FELIPE on 03/28/22 1156 Risperidone (Risperidone) 0.5 Mg Tablet, 0.5 MG PO HS Prescribed by: Lisa Hutchinson on 01/01/23 1634 Ropinirole HCl (Ropinirole HCl) 1 Mg Tablet, 1 MG PO HS, (Reported) Entered as Reported by: ESTEFANÍA FIORE on 11/26/17 0843 Tramadol HCl (Tramadol HCl) 50 Mg Tablet, 50 MG PO Q12H PRN for PAIN-MODERATE (5-7), (Reported) Entered as Reported by: ABHIJEET FELIPE on 06/01/22 1114 Vit A/C/E/Zinc/Co (Preservision Areds Softgel) 14,320-226 Capsule, 1 CAP PO DAILY, (Reported) Entered as Reported by: ABHIJEET FELIPE on 03/28/22 1424 Exam Vital Signs Vital Signs Date Time Temp Pulse Resp B/P (MAP) Pulse Ox O2 Delivery O2 Flow Rate FiO2 02/05/23 12:14 61 02/05/23 12:00 29 137/66 (89) 99 NIV Bilevel 85.00 02/05/23 10:53 36.6 85 Physical Exam Cardiac examination: Regular rhythm, ejection systolic murmur. Chest examination: Mild wheezing, decreased breath sounds bilaterally Labs Laboratory Tests Test 02/05/23 08:25 02/05/23 08:34 02/05/23 08:35 02/05/23 08:36 Range/Units White Blood Count 24.8 H 4.3-11.0 10^3/uL Red Blood Count 4.50 3.80-5.11 10^6/uL Hemoglobin 12.4 11.5-16.0 g/dL Hematocrit 42 35-52 % Mean Corpuscular Volume 93 80-99 fL Mean Corpuscular Hemoglobin 28 25-34 pg Mean Corpuscular Hemoglobin Concent 30 L 32-36 g/dL Red Cell Distribution Width 19.8 H 10.0-14.5 % Platelet Count 319 130-400 10^3/uL Mean Platelet Volume 11.5 9.0-12.2 fL Immature Granulocyte % (Auto) 1 % Neutrophils (%) (Auto) 73 42-75 % Lymphocytes (%) (Auto) 14 12-44 % Monocytes (%) (Auto) 5 0-12 % Eosinophils (%) (Auto) 8 0-10 % Basophils (%) (Auto) 1 0-10 % Neutrophils # (Auto) 18.0 H 1.8-7.8 10^3/uL Lymphocytes # (Auto) 3.4 1.0-4.0 10^3/uL Monocytes # (Auto) 1.2 H 0.0-1.0 10^3/uL Eosinophils # (Auto) 1.9 H 0.0-0.3 10^3/uL Basophils # (Auto) 0.2 H 0.0-0.1 10^3/uL Immature Granulocyte # (Auto) 0.1 0.0-0.1 10^3/uL Neutrophils % (Manual) 71 % Lymphocytes % (Manual) 12 % Monocytes % (Manual) 8 % Eosinophils % (Manual) 7 % Band Neutrophils 2 % Poikilocytosis SLIGHT Anisocytosis SLIGHT Elliptocytes SLIGHT Prothrombin Time 17.4 H 12.2-14.7 SEC INR Comment 1.4 0.8-1.4 Activated Partial Thromboplast Time 31 24-35 SEC Venous Blood pH 7.24 L 7.31-7.41 Venous Blood Partial Pressure CO2 78 H 40-52 MMHG Venous Blood HCO3 32 H 22-28 MMOL/L Sodium Level 145 135-145 MMOL/L Potassium Level 3.5 L 3.6-5.0 MMOL/L Chloride Level 104 98-107 MMOL/L Carbon Dioxide Level 27 21-32 MMOL/L Anion Gap 14 5-14 MMOL/L Blood Urea Nitrogen 17 7-18 MG/DL Creatinine 0.84 0.60-1.30 MG/DL Estimat Glomerular Filtration Rate 70 BUN/Creatinine Ratio 20 Glucose Level 207 H 70-105 MG/DL Calcium Level 9.4 8.5-10.1 MG/DL Corrected Calcium 9.6 8.5-10.1 MG/DL Total Bilirubin 1.7 H 0.1-1.0 MG/DL Aspartate Amino Transf (AST/SGOT) 14 5-34 U/L Alanine Aminotransferase (ALT/SGPT) 8 0-55 U/L Alkaline Phosphatase 83 40-136 U/L Troponin I 0.036 H <0.028 NG/ML B-Type Natriuretic Peptide 1712.1 H <100.0 PG/ML Total Protein 7.3 6.4-8.2 GM/DL Albumin 3.8 3.2-4.5 GM/DL Lactic Acid Level 2.88 *H 0.50-2.00 MMOL/L SARS-CoV-2 RNA (RT-PCR) Not Detected Not Detecte Blood Gas Puncture Site NA Blood Gas Patient Temperature 36.6 Arterial Blood pH 7.33 *L 7.37-7.43 Arterial Blood Partial Pressure CO2 63 H 35-45 MMHG Arterial Blood Partial Pressure O2 74 L 79-93 MMHG Arterial Blood HCO3 33 H 23-27 MMOL/L Arterial Blood Total CO2 34.5 H 21.0-31.0 MMOL/L Arterial Blood Oxygen Saturation 94 94-100 % Arterial Blood Base Excess 6.7 H -2.5-2.5 MMOL/L Goran Test NA Blood Gas Ventilator Setting NO Blood Gas Inspired Oxygen 100% Test 02/05/23 10:28 Range/Units Lactic Acid Level 1.17 0.50-2.00 MMOL/L ECG Impression ECG Initial ECG Rhythm: A Fib/Flutter Initial ECG Intervals Left bundle branch block A/P-Cardiology Assessment/Admission Diagnosis Acute respiratory failure, COPD/pneumonia, Type II non-STEMI, Permanent atrial fibrillation, Left bundle branch block, Pacemaker, Moderate to severe aortic stenosis, Acute on chronic diastolic congestive heart failure Plan Acute respiratory failure, likely multifactorial. COPD, pneumonia, acute on chronic diastolic congestive heart failure. COPD/pneumonia, on BiPAP. Defer to the ICU team. Elevated lactate. Type II non-STEMI, borderline elevated troponin. Likely secondary to severe systemic illness. Permanent atrial fibrillation, on oral anticoagulation. Left bundle branch block, chronic. Pacemaker, no acute issues Moderate to severe aortic stenosis, repeat echocardiogram; however unlikely to be a reasonable candidate for any intervention. Acute on chronic diastolic congestive heart failure, IV Lasix. Poor prognosis. Ricardo WHALEY MD February 05, 2023 12:51
[2023-02-05] MEDS ORDERED: RISP0.5T65 PO (12:59)
[2023-02-05] MEDS ORDERED: FERR325T18 PO (12:59)
[2023-02-05] MEDS ORDERED: VIT1CAPS5 PO (12:59)
--- NOTE | 2023-02-05 13:11 | History & Physical-Hospitalist ---
History of Present Illness HPI/Chief Complaint Pt is an 82yoCF known to me from multiple previous admission who presented to the ER due to hypoxia. She wears 3-5lpm of oxygen at baseline and was found to be satting 80% and was placed on a nonrebreather. This improved her sats to the mid 80s and she was placed on BiPAP due to tachypnea. She is unable to provide any history but is laying in bed wearing BiPAP (which she often will fight in her normal state of health). She was admitted to the ICU for further management of respiratory failure. She was given Lasix and IV abx int he ER and cardiology was consulted due to mild troponin elevated. There is no family at bedside to supplement history. Source: patient Date Seen 02/05/23 Time Seen by a Provider: 13:05 Attending Physician Jason Boudreaux MD PCP Admitting Physician: Abraham Williamson MD Attending Physician: Abraham Williamson MD Referring Physician Date of Admission February 05, 2023 at 10:20 Home Medications & Allergies Home Medications Reviewed patient Home Medication Reconciliation performed by pharmacy medication reconciliations sterile instrument technician and/or nursing. Patients Allergies have been reviewed. Allergies Allergies Coded Allergies doxycycline (Unverified Allergy, Mild, 11/26/17) Past Hcbxbcn-Bwrwft-Shoxhi Hx Patient Social History Employed/Student: retired Tobacco Use?: No Use of E-Cig and/or Vaping dev: No Substance use?: No Alcohol Use?: No Pt feels they are or have been: No Immunizations Up To Date Date of Influenza Vaccine: Oct 08, 2022 First/Initial COVID19 Vaccinat: 2020 Second COVID19 Vaccination Ronald: 2020 Tetanus Booster (TDap): Unknown Hepatitis A: Yes Hepatitis B: Yes Date of Pneumonia Vaccine: Oct 30, 2016 Seasonal Allergies Seasonal Allergies: Yes Current Status status: No Advance Directives: Yes Communicates: Verbally Primary Language: [place]ag[place] Preferred Spoken Language: [place]ag[place] Is interpretation needed?: No Implanted or Applied Medical D: Pacemaker Past Medical History Surgeries: Section, Pacemaker, Tonsillectomy Asthma, Sleep Apnea, COPD Currently Using CPAP: No Atrial Fibrillation, High Cholesterol, Hypertension, Valvular Heart Disease Dementia, Stroke Sexually Transmitted Disease: No HIV/AIDS: No Renal Failure Gastroesophageal Reflux, Chronic Constipation Arthritis, Chronic Back Pain Glaucoma Loss of Vision: Bilateral Hearing Impairment: Hard of Hearing Anxiety, Depression Blood Disorders: No Adverse Reaction/Blood Tranf: No (N/A) Family Medical History Heart Disease, COPD, Renal Disease, Other Conditions/Hx Review of Systems Constitutional: see HPI Physical Exam Physical Exam Vital Signs Vital Signs - First Documented 02/05/23 08:10 Temp 36.6 Pulse 70 Resp 46 B/P (MAP) 150/94 (112) Pulse Ox 81 O2 Delivery Non Rebreather O2 Flow Rate 15.00 FiO2 81 Capillary Refill : Less Than 3 Seconds Height, Weight, BMI Height: 5'4.00" Weight: 182lbs. 0.6oz. 77.126969ut; 19.59 BMI Method:Stated General Appearance: Chronically ill, Cachetic, Thin HEENT: Other (BiPAP mask in place obscuring some aspects of exam) Respiratory: No Crackles; Decreased Breath Sounds; No Wheezing; Other (on BiPAP, unlabored respirations) Cardiovascular: Regular Rate, Rhythm, Systolic Murmur Gastrointestinal: Normal Bowel Sounds, Soft; No Distended, No Guarding Extremity: No Swelling Neurologic/Psychiatric: Other (opened eyes when spoken to but quickly back to sleep) Results Results/Procedures Labs Laboratory Tests 02/05/23 08:25 02/06/23 03:50 Patient resulted labs reviewed. Imaging: Reviewed Imaging Report Imaging [facility] [place], [place] NAME: LUCITA ORLANDO [facility] REC#: [id number] PT STATUS: REG ER : 1940 PHYSICIAN: ART BAIG MD ADMIT DATE: 02/05/23/ER Signed Date of Exam:02/05/23 CHEST 1 VIEW, AP/PA ONLY INDICATION: Respiratory distress. Comparison is made with prior examination of 01/01/2023. FINDINGS: There is cardiomegaly. There is some venous congestion. There may be a small left pleural effusion. There is no pneumothorax. The mediastinum is unremarkable. Pacemaker overlies right hemithorax. IMPRESSION: Cardiomegaly and some central pulmonary venous congestion with a left pleural effusion Dictated by: Dictated on workstation # [id number] Dict: 02/05/23 [id number] Trans: 02/05/23 0852 [facility] [id number] Interpreted by: ROSALINDA FRANK MD Electronically signed by: ROSALINDA FRANK MD 02/05/23 0852 Assessment/Plan Admission Diagnosis Acute hypoxic respiratory failure Admission Status: Inpatient Order (span 2 midnights) Reason for Inpatient Admission: see below Assessment and Plan Acute on chronic respiratory failure with hypoxia HCAP COPD CHF Currently on BiPAP Continue IV abx Continue lasix, watch UOP TeleICU consulted, appreciate recs MAT protocol Continue home inhalers HTN NSTEMII Aortic Stenosis Permanent a-fib Cardiology consulted, appreciate recs Troponin elevation likely due to hypoxia Telemetry Advanced dementia Poor prognosis Have had multiple conversations in past with her son regarding life expectancy Dr Baig spoke with him again today and he is hopeful for improvement but if not considering hospice Palliative care consult DVT ppx: ABRAHAM Kelly MD February 05, 2023 13:11
[2023-02-05 15:06] VITALS: BP 138/83
[2023-02-05] MEDS: RT-ALBUTEROL/IPRATROPIUM 3 ML (DUONEB) VIAL INH SCH ×3 (15:10→21:48)
[2023-02-05] MEDS: CEFEPIME 1,000 MG/NS 50 ML IVPB IV SCH ×2 (18:14)
[2023-02-05 18:41] VITALS: BP 154/71
[2023-02-05] MEDS: AMITRIPTYLINE 25 MG (ELAVIL) TAB PO SCH (21:00)
[2023-02-05] MEDS: risperiDONE 0.5 MG (RisperDAL) TABLET PO SCH (21:00)
[2023-02-05] MEDS: DOCUSATE SODIUM 100 MG (COLACE) CAP PO SCH (21:00)
[2023-02-05 21:48] VITALS: BP 154/75
[2023-02-06] MEDS ORDERED: NS IV 500 ML 500 ML IV PRN (01:00)
[2023-02-06] MEDS: CEFEPIME 1,000 MG/NS 50 ML IVPB IV SCH ×6 (01:04→17:14)
[2023-02-06] MEDS: RT-ALBUTEROL/IPRATROPIUM 3 ML (DUONEB) VIAL INH SCH ×5 (02:58→22:42)
[2023-02-06 03:30] LABS: ABG BASE EXCESS 8.3 MMOL/L (-2.5-2.5); ABG OXYGEN SATURATION 98 % (94-100); ABG PCO2 51 MMHG (35-45); ABG PH 7.43 (7.37-7.43); ABG PO2 85 MMHG (79-93); ABG TCO2 34.2 MMOL/L (21.0-31.0); ALLENS TEST NO; INSPIRED O2 6L; PATIENT TEMP 37.6; VENTILATOR NO
[2023-02-06 04:00] LABS: BASOPHILS % (AUTO) 0 % (0-10); EOSINOPHILS % (AUTO) 0 % (0-10); HEMATOCRIT 38 % (35-52); HEMOGLOBIN 11.7 g/dL (11.5-16.0); LYMPHOCYTES # (AUTO) 0.4 10^3/uL (1.0-4.0); LYMPHOCYTES % (AUTO) 2 % (12-44); MEAN CORPUSCULAR HEMOGLOBIN 28 pg (25-34); MEAN CORPUSCULAR HGB CONC 31 g/dL (32-36); MEAN CORPUSCULAR VOLUME 90 fL (80-99); MEAN PLATELET VOLUME 11.8 fL (9.0-12.2); MONOCYTES # (AUTO) 0.5 10^3/uL (0.0-1.0); MONOCYTES % (AUTO) 3 % (0-12); NEUTROPHILS # (AUTO) 16.8 10^3/uL (1.8-7.8); NEUTROPHILS % (AUTO) 94 % (42-75); PLATELET COUNT 272 10^3/uL (130-400); WHITE BLOOD COUNT 17.8 10^3/uL (4.3-11.0)
[2023-02-06 04:11] LABS: ALBUMIN 3.8 GM/DL (3.2-4.5); POTASSIUM 3.2 MMOL/L (3.6-5.0)
[2023-02-06 04:12] LABS: CALCIUM 9.7 MG/DL (8.5-10.1)
[2023-02-06 04:14] LABS: TOTAL PROTEIN 7.3 GM/DL (6.4-8.2)
[2023-02-06 04:15] LABS: BILIRUBIN,TOTAL 1.6 MG/DL (0.1-1.0)
[2023-02-06 04:17] LABS: CREATININE SERUM 0.76 MG/DL (0.60-1.30); PHOSPHORUS 3.2 MG/DL (2.3-4.7)
[2023-02-06] MEDS: MAGNESIUM 1 GM/100 ML IVPB 100 ML IV SCH (04:24)
[2023-02-06] MEDS: KCL 20 MEQ TAB (K-DUR) PO SCH (04:24)
[2023-02-06] MEDS: POTASSIUM CL 10MEQ/50ML IVPB 50 ML IV SCH ×9 (04:25→11:26)
[2023-02-06] MEDS ORDERED: POTASSIUM CL 10MEQ/50ML IVPB 400 ML IV ONE (04:28)
[2023-02-06 05:14] VITALS: BP 184/111
[2023-02-06] MEDS: FUROSEMIDE 40 MG/4 ML INJ (LASIX) IV SCH (06:33)
[2023-02-06 06:40] VITALS: BP 162/71
[2023-02-06 06:58] VITALS: BP 171/146
[2023-02-06] MEDS: DexMEDEtomidine 250 ML DRIP 250 ML IV SCH ×2 (07:12→17:13)
--- NOTE | 2023-02-06 07:40 | Tele-ICU Progress Note ---
Subjective Date Seen by a Provider: February 06, 2023 Time Seen by a Provider: 07:35 Subjective/Events-last exam Service provided via interactive audio and video telecommunications E-CARE system to a patient admitted to ICU bed in [facility]. Available chart/ vitals / labs / Images reviewed H&P is from ER notes Patient's information available about PMH, Shx, Fhx allergy reviewed in EMR. ROS as per chart and RN report Now in ICU, hemodynamically stable Video assessment done using teleICU camera, rest of exam as per RN Discussed with RN. 82 yo F admitted with CHF and AECOPD, PNA, started on BiPAP 08/05 FiO2 50%, SpO2 95% with spont RR in teens, on IV Lasix 60 mg, bid Lovenox, On IV Cefepime, LABA/ICS, IV Precedex @ 1.5, albuterol 02/05 CXR shows enlarged heart, mild congestion and possible infiltrate RLL, had chronic diastolic CHF Has PPM WOB is better Able to protect airway Has dementia, pt is DNR Sepsis Event Evaluation Height, Weight, BMI Height: 5'4.00" Weight: 182lbs. 0.6oz. 77.622469zq; 22.68 BMI Method:Stated Focused Exam Lactate Level 02/05/23 08:34: Lactic Acid Level 2.88*H 02/05/23 10:28: Lactic Acid Level 1.17 Exam Exam Patient acknowledged, consented, and participated in this virtual visit which was conducted using real time audio/video Vital Signs Date Time Temp Pulse Resp B/P (MAP) Pulse Ox O2 Delivery O2 Flow Rate FiO2 02/06/23 07:29 92 NIV Bilevel 50 02/06/23 07:12 91 147/91 02/06/23 06:58 89 39 95 50.00 02/06/23 06:41 NIV Bilevel 50.00 02/06/23 06:40 91 34 95 50.00 02/06/23 06:00 90 13 162/78 (106) 98 NIV Bilevel 70.00 02/06/23 05:14 106 49 93 70.00 02/06/23 05:11 94 NIV Bilevel 70.00 02/06/23 05:00 103 13 184/111 (135) 86 Nasal Cannula 10.00 02/06/23 04:01 Nasal Cannula 10.00 02/06/23 04:00 92 Nasal Cannula 6.00 02/06/23 04:00 101 12 178/148 (158) 88 Nasal Cannula 6.00 02/06/23 03:00 92 22 188/83 (118) 92 Nasal Cannula 6.00 02/06/23 02:59 94 Nasal Cannula 6.00 02/06/23 02:00 86 14 144/87 (106) 91 Nasal Cannula 6.00 02/06/23 01:20 96 Nasal Cannula 4.00 02/06/23 01:00 74 22 180/63 (102) 95 NIV Bilevel 30.00 02/06/23 00:47 70 02/06/23 00:00 79 24 150/76 (100) 98 NIV Bilevel 30.00 02/06/23 00:00 37.0 02/05/23 23:59 NIV Bilevel 30 02/05/23 23:09 150/70 (96) 02/05/23 23:00 76 17 161/91 (114) 93 NIV Bilevel 30.00 02/05/23 22:00 66 18 151/77 (101) 96 NIV Bilevel 30.00 02/05/23 21:48 64 24 95 30.00 02/05/23 21:00 67 17 151/81 (104) 95 NIV Bilevel 30.00 02/05/23 20:12 NIV Bilevel 30 02/05/23 20:00 69 12 141/90 (107) 96 NIV Bilevel 30.00 02/05/23 19:44 36.0 02/05/23 19:01 NIV Bilevel 30.00 02/05/23 19:00 63 21 150/82 (104) 96 NIV Bilevel 50.00 02/05/23 19:00 64 02/05/23 18:41 68 32 97 40.00 02/05/23 18:00 60 10 146/77 (100) 98 NIV Bilevel 50.00 02/05/23 17:00 64 23 144/76 (98) 98 NIV Bilevel 50.00 02/05/23 16:00 63 12 135/77 (96) 96 NIV Bilevel 50.00 02/05/23 15:50 99 NIV Bilevel 85.00 81 02/05/23 15:50 36.5 02/05/23 15:06 65 30 96 40.00 02/05/23 15:00 73 28 138/83 (101) 97 NIV Bilevel 50.00 02/05/23 14:59 NIV Bilevel 50.00 02/05/23 14:00 68 27 140/78 (98) 99 NIV Bilevel 85.00 02/05/23 13:00 65 33 125/71 (89) 99 NIV Bilevel 85.00 02/05/23 12:14 61 02/05/23 12:00 99 NIV Bilevel 85.00 81 02/05/23 12:00 62 29 137/66 (89) 99 NIV Bilevel 85.00 02/05/23 11:15 68 12 151/83 (105) 97 NIV Bilevel 85.00 02/05/23 11:00 63 22 134/69 (90) 97 NIV Bilevel 85.00 02/05/23 10:53 36.6 69 99 85 02/05/23 10:45 67 7 138/69 (92) 97 NIV Bilevel 85.00 02/05/23 10:34 69 02/05/23 10:30 73 9 133/76 (95) 99 NIV Bilevel 85.00 02/05/23 10:15 38.2 02/05/23 10:15 77 9 139/81 (100) 99 NIV Bilevel 85.00 02/05/23 10:00 Nasal Cannula 2.00 02/05/23 09:55 72 35 125/71 99 NIV Bilevel 02/05/23 08:40 91 43 172/81 (111) 95 NIV Bilevel 02/05/23 08:26 49 43 93 100.00 02/05/23 08:26 100.00 02/05/23 08:10 36.6 70 46 150/94 (112) 81 Non Rebreather 15.00 02/05/23 08:10 Non Rebreather 15.00 81 I & O 02/06/23 07:00 Intake Total 200 ml Output Total 1275 ml Balance -1075 ml Height & Weight Height: 5'4.00" Weight: 182lbs. 0.6oz. 77.710612yj; 22.68 BMI Method:Stated General Appearance: Chronically ill, Cachetic, Thin HEENT: Other (BiPAP mask in place obscuring some aspects of exam) Respiratory: No Crackles; Decreased Breath Sounds; No Wheezing; Other (on BiPAP, unlabored respirations) Cardiovascular: Regular Rate, Rhythm, Systolic Murmur Capillary Refill: Less Than 3 Seconds Gastrointestinal: normal bowel sounds, non tender, soft; No distended, No guarding, No rebound Extremity: No Swelling Neurologic/Psychiatric: Other (opened eyes when spoken to but quickly back to sleep) Results Lab Laboratory Tests 02/05/23 08:25 02/06/23 03:50 Assessment/Plan Assessment/Plan CHF-echo shows large atria, mod , mild AI, Mild MR, will continue diuresis, not a candidate for intervention for valve problems Severe pulm HTN PASP 65-70, has diastolic CHF COPD continue albuterol ICS/LABA Hx of a fib, now in sinus, was on Eliquis, now bid Lovenox Potassium 3.2 getting replacement Continue IV Cefepime Critical Care: Critically Ill Patient Time spent with patient (mins): 25 PAYTON EDWARDS MD February 06, 2023 07:40
--- NOTE | 2023-02-06 08:40 | Cardiology Progress Note ---
Subjective Date Seen by Provider: February 06, 2023 Time Seen by Provider: 08:38 Subjective/Events-last exam Patient was seen at bedside, maintained on BiPAP, lethargic. Review of Systems General: Other (Unable to provide review of system) Focused Exam Lactate Level 02/05/23 08:34: Lactic Acid Level 2.88*H 02/05/23 10:28: Lactic Acid Level 1.17 Objective-Cardiology Exam Last Set of Vital Signs Vital Signs 02/06/23 02/06/23 02/06/23 07:29 07:58 08:00 Temp 37.8 Pulse 82 Resp 9 B/P (MAP) 131/67 (88) Pulse Ox 96 O2 Delivery NIV Bilevel O2 Flow Rate 50.00 FiO2 50 I&O Intake and Output 02/06/23 00:00 Intake Total 50 ml Output Total 1125 ml Balance -1075 ml Intake Oral 0 ml IV Total 50 ml Output Urine Total 1125 ml General: Alert, Cooperative HEENT: Atraumatic Neck: Supple Lungs: Normal Air Movement, Other (Bilateral rhonchi) Heart: Regular Rate, Normal S1, Normal S2 Abdomen: Normal Bowel Sounds Skin: No Rashes Psych/Mental Status: Mood NL Results Lab Laboratory Tests 02/06/23 03:50 A/P-Cardiology Admission Diagnosis Acute respiratory failure COPD Type II [place] HTN Assessment/Plan Acute respiratory failure, likely multifactorial. COPD, pneumonia, acute on chronic diastolic congestive heart failure. COPD/pneumonia, on BiPAP. Defer to the ICU team. Type II non-STEMI, borderline elevated troponin. Likely secondary to severe systemic illness. Permanent atrial fibrillation, on oral anticoagulation. Left bundle branch block, chronic. Pacemaker, no acute issues Moderate to severe aortic stenosis, repeat echocardiogram; however unlikely to be a reasonable candidate for any intervention. Acute on chronic diastolic congestive heart failure, IV Lasix. Poor prognosis. LILIANE ALMANZA MD February 06, 2023 08:40
[2023-02-06] MEDS: ASPIRIN 81 MG CHEW (CHILDREN'S ASA) PO SCH (08:51)
[2023-02-06] MEDS: DOCUSATE SODIUM 100 MG (COLACE) CAP PO SCH ×2 (08:51→21:00)
[2023-02-06] MEDS ORDERED: POTASSIUM CL 10MEQ/50ML IVPB 50 ML IV SCH (09:30)
[2023-02-06 09:56] VITALS: BP 128/57
[2023-02-06] MEDS: FLUTICASONE/VILANTEROL 200 MCG 14'S (BREO) IH SCH (09:56)
[2023-02-06] MEDS: ENOXAPARIN 60 MG/0.6 ML (LOVENOX) SYR SC SCH ×2 (11:25→22:58)
--- NOTE | 2023-02-06 11:52 | Progress Note - Hospitalist ---
Subjective HPI/CC On Admission Date Seen by Provider: February 06, 2023 Pt is an 82yoCF known to me from multiple previous admission who presented to the ER due to hypoxia. She wears 3-5lpm of oxygen at baseline and was found to be satting 80% and was placed on a nonrebreather. This improved her sats to the mid 80s and she was placed on BiPAP due to tachypnea. She is unable to provide any history but is laying in bed wearing BiPAP (which she often will fight in her normal state of health). She was admitted to the ICU for further management of respiratory failure. She was given Lasix and IV abx int he ER and cardiology was consulted due to mild troponin elevated. There is no family at bedside to supplement history. Subjective/Events-last exam Pt slightly more alert today. Opened eyes when spoken to and lifted arm but then did not otherwise participate or acknowledge anyone was in the room. No family at bedside. Focused Exam Lactate Level 02/05/23 08:34: Lactic Acid Level 2.88*H 02/05/23 10:28: Lactic Acid Level 1.17 Objective Exam Vital Signs Vital Signs Date Time Temp Pulse Resp B/P (MAP) Pulse Ox O2 Delivery O2 Flow Rate FiO2 02/06/23 11:12 67 116/55 02/06/23 11:00 12 97 NIV Bilevel 40.00 02/06/23 07:58 37.8 02/06/23 07:29 50 Capillary Refill : Less Than 3 Seconds General Appearance: Chronically ill, Thin Respiratory: Decreased Breath Sounds, Other (on BiPAP) Cardiovascular: Regular Rate, Rhythm, Systolic Murmur Gastrointestinal: Normal Bowel Sounds, Soft Neurologic/Psychiatric: Other (opened eyes when spoken to and arm touched- did not awaken prior to that) Results/Procedures Lab Laboratory Tests 02/06/23 03:50 Patient resulted labs reviewed. Imaging: Reviewed Imaging Report Assessment/Plan Assessment and Plan Assess & Plan/Chief Complaint Acute on chronic respiratory failure with hypoxia HCAP COPD CHF Currently on BiPAP, wean as able Continue IV abx Continue lasix, -1L yesterday TeleICU consulted, appreciate recs MAT protocol Continue home inhalers Requiring precedex to maintain BiPAP HTN NSTEMII Aortic Stenosis Permanent a-fib Cardiology consulted, appreciate recs Troponin elevation likely due to hypoxia Telemetry Advanced dementia Poor prognosis Have had multiple conversations in past with her son regarding life expectancy Dr De Jesus spoke with him on admission and he is hopeful for improvement but if not considering hospice- will attempt to reach out to him again today Palliative care consult DVT ppx: Lovenox Critical Care Critically Ill Patient ABRAHAM CIFUENTES MD February 06, 2023 11:52
[2023-02-06 14:18] VITALS: BP 119/51
[2023-02-06] MEDS: AMITRIPTYLINE 25 MG (ELAVIL) TAB PO SCH (21:00)
[2023-02-06] MEDS: risperiDONE 0.5 MG (RisperDAL) TABLET PO SCH (21:00)
[2023-02-06 22:42] VITALS: BP 128/62
[2023-02-07] MEDS: CEFEPIME 1,000 MG/NS 50 ML IVPB IV SCH ×6 (01:52→16:28)
[2023-02-07 02:50] VITALS: BP 141/76
[2023-02-07] MEDS: RT-ALBUTEROL/IPRATROPIUM 3 ML (DUONEB) VIAL INH SCH ×6 (02:50→22:19)
[2023-02-07] MEDS: DexMEDEtomidine 250 ML DRIP 250 ML IV SCH ×2 (04:06→16:33)
[2023-02-07 05:20] LABS: BASOPHILS % (AUTO) 0 % (0-10); EOSINOPHILS % (AUTO) 0 % (0-10); HEMATOCRIT 34 % (35-52); HEMOGLOBIN 10.4 g/dL (11.5-16.0); LYMPHOCYTES # (AUTO) 0.6 10^3/uL (1.0-4.0); LYMPHOCYTES % (AUTO) 7 % (12-44); MEAN CORPUSCULAR HEMOGLOBIN 28 pg (25-34); MEAN CORPUSCULAR HGB CONC 30 g/dL (32-36); MEAN CORPUSCULAR VOLUME 91 fL (80-99); MEAN PLATELET VOLUME 12.1 fL (9.0-12.2); MONOCYTES # (AUTO) 0.6 10^3/uL (0.0-1.0); MONOCYTES % (AUTO) 7 % (0-12); NEUTROPHILS # (AUTO) 7.5 10^3/uL (1.8-7.8); NEUTROPHILS % (AUTO) 85 % (42-75); PLATELET COUNT 219 10^3/uL (130-400); WHITE BLOOD COUNT 8.7 10^3/uL (4.3-11.0)
[2023-02-07 05:40] LABS: ALBUMIN 3.3 GM/DL (3.2-4.5); BILIRUBIN,TOTAL 1.1 MG/DL (0.1-1.0); CALCIUM 9.7 MG/DL (8.5-10.1); CREATININE SERUM 0.83 MG/DL (0.60-1.30); MAGNESIUM 2.1 MG/DL (1.6-2.4); PHOSPHORUS 2.6 MG/DL (2.3-4.7); POTASSIUM 3.7 MMOL/L (3.6-5.0); TOTAL PROTEIN 6.4 GM/DL (6.4-8.2)
[2023-02-07] MEDS: MAGNESIUM 1 GM/100 ML IVPB 100 ML IV SCH (05:51)
[2023-02-07] MEDS: KCL 20 MEQ TAB (K-DUR) PO SCH (05:52)
[2023-02-07] MEDS: POTASSIUM CL 10MEQ/50ML IVPB 50 ML IV SCH ×3 (05:53→07:29)
[2023-02-07] MEDS: FUROSEMIDE 40 MG/4 ML INJ (LASIX) IV SCH (06:34)
[2023-02-07 06:48] VITALS: BP 143/70
[2023-02-07] MEDS: DOCUSATE SODIUM 100 MG (COLACE) CAP PO SCH ×2 (07:32→20:30)
[2023-02-07] MEDS: ASPIRIN 81 MG CHEW (CHILDREN'S ASA) PO SCH (07:32)
--- NOTE | 2023-02-07 07:50 | Cardiology Progress Note ---
Subjective Date Seen by Provider: February 07, 2023 Time Seen by Provider: 07:49 Subjective/Events-last exam Patient was seen at bedside, laying down comfortably Still on BiPAP, lethargic. Review of Systems General: Other (Unable to provide review of system) Focused Exam Lactate Level 02/05/23 08:34: Lactic Acid Level 2.88*H 02/05/23 10:28: Lactic Acid Level 1.17 Objective-Cardiology Exam Last Set of Vital Signs Vital Signs 02/07/23 02/07/23 02/07/23 04:00 06:00 06:48 Pulse 60 Resp 31 B/P (MAP) 143/70 (85) Pulse Ox 98 O2 Delivery NIV Bilevel O2 Flow Rate 35.00 FiO2 35 I&O Intake and Output 02/07/23 00:00 Intake Total 150 ml Output Total 1100 ml Balance -950 ml Intake Oral 0 ml IV Total 150 ml Output Urine Total 1100 ml General: Alert, Cooperative HEENT: Atraumatic Neck: Supple Lungs: Normal Air Movement, Other (Bilateral rhonchi) Heart: Regular Rate, Normal S1, Normal S2 Abdomen: Normal Bowel Sounds Skin: No Rashes Psych/Mental Status: Mood NL Results Lab Laboratory Tests 02/07/23 04:21 A/P-Cardiology Admission Diagnosis Acute respiratory failure COPD Type II [place] HTN Assessment/Plan Acute respiratory failure, likely multifactorial. COPD, pneumonia, acute on chronic diastolic congestive heart failure. COPD/pneumonia, on BiPAP. Still in respiratory failure. Failed attempt for weaning Managed by medical team Type II non-STEMI, borderline elevated troponin. Likely secondary to severe systemic illness. Permanent atrial fibrillation, on oral anticoagulation. Heart rate is controlled. Continue to monitor Left bundle branch block, chronic. Pacemaker, no acute issues Moderate to severe aortic stenosis, repeat echocardiogram; however unlikely to be a reasonable candidate for any intervention. Acute on chronic diastolic congestive heart failure, IV Lasix. Poor prognosis. LILIANE ALMANZA MD February 07, 2023 07:50
--- NOTE | 2023-02-07 10:33 | Speech Therapy Progress Note ---
Therapy Progress Note Speech pathology attempted the requested clinical bedside swallowing evaluation at 1025. The patient was lying in bed, asleep at this time. The patient does not wake to maximum verbal stimuli or sternal rub. The patient is not appropriate for participation in the swallowing evaluation at this time. ST will continue to assess the patient daily for appropriateness of participation. Thank you for the consultation. ESTEFANÍA VERMA February 07, 2023 10:33
--- NOTE | 2023-02-07 10:43 | Tele-ICU Progress Note ---
Subjective Date Seen by a Provider: February 07, 2023 Time Seen by a Provider: 10:43 Subjective/Events-last exam (Tele-ICU Physician , Progress Note ) Service provided via interactive audio and video telecommunications E-CARE system to a patient admitted to ICU bed in [facility]. Patient is seen today due to persistent need of ICU care Available chart/ vitals / labs / Images reviewed Video assessment done using teleICU camera, rest of exam as per RN Discussed with RN Events overnight : Afebrile hemodynamically stable Respiratory - 5l I/O = neg 1 l Drips: precedex 1.5 Pressors- no Hospital course: RECENT admission 11/07 with CHF, +COVID, hypoxic respiratory failure (11/28) 82yr F admitted for Acute on Chronic Respiratory failure, Pneumonia, Copd Exacerbation. DNR status. 11/29 In BIPAP 05/02 30 5 , rr20 , TV 450, levo on/off , Hb 6.7 - 1 uPCBC ordered (02/05) 82F admitted with CHF/PNA, NSTEMI, aortic stenosis, afib-controlled 02/05- tolerates BIPAP well -8 85% rr 30 TV 390 [id number] 02/06 - faled off bipap 02/07 - on 5 L ,after night on BIPAP 18/8 35% A/P Acute resp failure, hypoxic- most likely due to CHF - placed on NIPPV 02/07 - on 5 L ,after night on BIPAP 18/8 35% -try to wean off precedex , assess by speech HFpEF - Echo on 10/09/22: LVEF 65-70%. Biatrial enlargement, mod to severe. Mild to mod MAC. Mild MR. Mod . Mild AI - avoid volume overload mod - severe aortic stenosis - monitor , as per cads note prior - -not a candidate for any intervvention - off IVF leukocytosis ( recent tx PNA ,RLL, HAP vs aspiration - merrem - finished 12/03 , also 11/2022 - UTI with e coli - covid neg in ER ( s/p recent covid 11/2022 -cxr with possible infiltrates - started empirically on cefepime - will repeat cxr tomorroe , consider to have abx tomorroe last day Pulm HTN , -Echo on 10/09/22: PASP 70-75 mmHg - fluis status is chalenging given COPD, cronic resp failure - nebs A Fib - Sinus now - has been on OAC for stroke prophylaxis with Eliquis [employer]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 Discussed with RN to reach out if any questions or concerns A total of 35 minutes of critical care time was devoted to this patient today, required to treat and/or prevent further deterioration of critical care condition ( as above ) . I am remotely monitoring this patient from another state. I am unable to do the bedside exam, and history/physical and pertinent information is taken from other notes in the computer and bedside staff. . Sepsis Event Evaluation Height, Weight, BMI Height: 5'4.00" Weight: 182lbs. 0.6oz. 77.631920pw; 22.42 BMI Method:Stated Focused Exam Lactate Level 02/05/23 08:34: Lactic Acid Level 2.88*H 02/05/23 10:28: Lactic Acid Level 1.17 Exam Exam Patient acknowledged, consented, and participated in this virtual visit which was conducted using real time audio/video Vital Signs Date Time Temp Pulse Resp B/P (MAP) Pulse Ox O2 Delivery O2 Flow Rate FiO2 02/07/23 10:00 62 29 138/37 (70) 98 High Flow N/C 6.00 02/07/23 09:10 High Flow N/C 10.00 02/07/23 09:00 62 35 130/66 (87) 98 NIV Bilevel 35.00 02/07/23 08:00 97 NIV Bilevel 35 02/07/23 08:00 59 127/28 (61) 97 NIV Bilevel 35.00 02/07/23 08:00 36.3 02/07/23 07:00 59 32 132/45 (74) 97 NIV Bilevel 35.00 02/07/23 07:00 64 02/07/23 06:48 60 31 98 35.00 02/07/23 06:00 59 143/70 (85) 98 NIV Bilevel 35.00 02/07/23 05:00 60 139/53 (94) 98 NIV Bilevel 35.00 02/07/23 04:06 36.9 02/07/23 04:06 62 126/67 02/07/23 04:00 98 NIV Bilevel 35 02/07/23 04:00 61 126/67 (91) 98 NIV Bilevel 35.00 02/07/23 03:00 61 29 137/72 (99) 99 NIV Bilevel 35.00 02/07/23 02:50 59 30 99 35.00 02/07/23 02:00 61 141/76 (102) 99 NIV Bilevel 35.00 02/07/23 01:00 64 129/71 (93) 98 NIV Bilevel 35.00 02/07/23 01:00 64 02/07/23 00:00 66 36 137/79 (101) 97 NIV Bilevel 35.00 02/07/23 00:00 37.6 02/06/23 23:59 94 NIV Bilevel 35 02/06/23 23:00 63 35 136/75 (101) 98 NIV Bilevel 35.00 02/06/23 22:42 68 37 98 35.00 02/06/23 22:05 60 128/71 02/06/23 22:00 61 128/71 (95) 98 NIV Bilevel 35.00 02/06/23 21:00 61 129/71 (93) 98 NIV Bilevel 35.00 02/06/23 20:00 92 NIV Bilevel 35 02/06/23 20:00 62 39 122/66 (90) 98 NIV Bilevel 35.00 02/06/23 19:54 37.2 02/06/23 19:00 63 116/61 (82) 98 NIV Bilevel 35.00 02/06/23 19:00 63 02/06/23 18:00 64 17 115/45 (68) 97 NIV Bilevel 35.00 02/06/23 17:13 68 151/59 02/06/23 17:00 68 10 116/51 (72) 96 NIV Bilevel 35.00 02/06/23 16:00 70 20 124/46 (72) 96 NIV Bilevel 35.00 02/06/23 16:00 36.6 02/06/23 16:00 92 NIV Bilevel 50 02/06/23 15:00 68 13 151/59 (89) 96 NIV Bilevel 35.00 02/06/23 14:24 NIV Bilevel 35.00 02/06/23 14:18 65 36 97 35.00 02/06/23 14:00 65 7 119/51 (73) 98 NIV Bilevel 40.00 02/06/23 13:00 65 22 115/39 (64) 97 NIV Bilevel 40.00 02/06/23 12:39 66 02/06/23 12:00 66 7 116/42 (66) 97 NIV Bilevel 40.00 02/06/23 12:00 92 NIV Bilevel 50 02/06/23 12:00 36.6 02/06/23 11:12 67 116/55 02/06/23 11:00 67 12 116/55 (75) 97 NIV Bilevel 40.00 I & O 02/07/23 07:00 Intake Total 50 ml Output Total 1075 ml Balance -1025 ml Height & Weight Height: 5'4.00" Weight: 182lbs. 0.6oz. 77.686816kq; 22.42 BMI Method:Stated General Appearance: Chronically ill, Cachetic, Thin HEENT: Other (BiPAP mask in place obscuring some aspects of exam) Respiratory: No Crackles; Decreased Breath Sounds; No Wheezing; Other (on BiPAP, unlabored respirations) Cardiovascular: Regular Rate, Rhythm, Systolic Murmur Capillary Refill: Less Than 3 Seconds Gastrointestinal: normal bowel sounds, non tender, soft; No distended, No guarding, No rebound Extremity: No Swelling Neurologic/Psychiatric: Other (opened eyes when spoken to but quickly back to sleep) Results Lab Laboratory Tests 02/06/23 03:50 02/07/23 04:21 Assessment/Plan Assessment/Plan 1 EHSAN FULTON MD February 07, 2023 10:43
[2023-02-07] MEDS: FLUTICASONE/VILANTEROL 200 MCG 14'S (BREO) IH SCH (10:53)
[2023-02-07] MEDS: ENOXAPARIN 60 MG/0.6 ML (LOVENOX) SYR SC SCH ×2 (11:43→22:49)
[2023-02-07] MEDS: D5W 1000 ML IV SOLUTION 1,000 ML IV SCH (11:46)
--- NOTE | 2023-02-07 11:49 | Progress Note - Hospitalist ---
Subjective HPI/CC On Admission Date Seen by Provider: February 07, 2023 Pt is an 82yoCF known to me from multiple previous admission who presented to the ER due to hypoxia. She wears 3-5lpm of oxygen at baseline and was found to be satting 80% and was placed on a nonrebreather. This improved her sats to the mid 80s and she was placed on BiPAP due to tachypnea. She is unable to provide any history but is laying in bed wearing BiPAP (which she often will fight in her normal state of health). She was admitted to the ICU for further management of respiratory failure. She was given Lasix and IV abx int he ER and cardiology was consulted due to mild troponin elevated. There is no family at bedside to supplement history. Subjective/Events-last exam Pt remains on BiPAP. Sedated on Precedex. Did not open eyes when I spoke to her. Spoke with RN to try and wean precedex. Focused Exam Lactate Level 02/05/23 08:34: Lactic Acid Level 2.88*H 02/05/23 10:28: Lactic Acid Level 1.17 Objective Exam Vital Signs Vital Signs Date Time Temp Pulse Resp B/P (MAP) Pulse Ox O2 Delivery O2 Flow Rate FiO2 02/07/23 10:53 99 Nasal Cannula 6.00 02/07/23 10:00 62 29 138/37 (70) 02/07/23 08:00 35 02/07/23 08:00 36.3 Capillary Refill : Less Than 3 Seconds General Appearance: No Apparent Distress, WD/WN Respiratory: Decreased Breath Sounds, Other (on BiPAP) Cardiovascular: Regular Rate, Rhythm, Systolic Murmur Extremity: No Pedal Edema Neurologic/Psychiatric: Other (sedated) Results/Procedures Lab Laboratory Tests 02/07/23 04:21 Patient resulted labs reviewed. Imaging: Reviewed Imaging Report Assessment/Plan Assessment and Plan Assess & Plan/Chief Complaint Acute on chronic respiratory failure with hypoxia HCAP COPD CHF Currently on BiPAP, wean as able Continue IV abx Continue lasix, -1L yesterday again TeleICU consulted, appreciate recs MAT protocol Continue home inhalers Requiring precedex to maintain BiPAP Spoke with son and he did verbalize he knows she is sicker and will not surv srinivasan one of these episodes but is hopeful it's not this time HTN NSTEMII Aortic Stenosis Permanent a-fib Cardiology consulted, appreciate recs Troponin elevation likely due to hypoxia Telemetry Advanced dementia Poor prognosis I have had multiple conversations in past with her son regarding life expectancy Dr De Jesus spoke with him on admission and I updated son again today as above Palliative care consult DVT ppx: Lovenox Critical Care Critically Ill Patient ABRAHAM CIFUENTES MD February 07, 2023 11:49
[2023-02-07] MEDS: AMITRIPTYLINE 25 MG (ELAVIL) TAB PO SCH (20:30)
[2023-02-07] MEDS: risperiDONE 0.5 MG (RisperDAL) TABLET PO SCH (20:30)
[2023-02-07] MEDS: hydrALAZINE (APESOLINE) 20 MG/ML VIAL IV PRN (23:07)
[2023-02-08] MEDS: CEFEPIME 1,000 MG/NS 50 ML IVPB IV SCH ×6 (01:12→16:23)
[2023-02-08] MEDS: RT-ALBUTEROL/IPRATROPIUM 3 ML (DUONEB) VIAL INH SCH ×6 (02:25→21:55)
[2023-02-08] MEDS: DexMEDEtomidine 250 ML DRIP 250 ML IV SCH ×2 (03:31→15:46)
[2023-02-08 04:54] LABS: BASOPHILS % (AUTO) 0 % (0-10); EOSINOPHILS % (AUTO) 0 % (0-10); HEMATOCRIT 34 % (35-52); HEMOGLOBIN 10.5 g/dL (11.5-16.0); LYMPHOCYTES # (AUTO) 0.7 10^3/uL (1.0-4.0); LYMPHOCYTES % (AUTO) 9 % (12-44); MEAN CORPUSCULAR HEMOGLOBIN 28 pg (25-34); MEAN CORPUSCULAR HGB CONC 31 g/dL (32-36); MEAN CORPUSCULAR VOLUME 92 fL (80-99); MEAN PLATELET VOLUME 11.5 fL (9.0-12.2); MONOCYTES # (AUTO) 0.5 10^3/uL (0.0-1.0); MONOCYTES % (AUTO) 6 % (0-12); NEUTROPHILS # (AUTO) 6.9 10^3/uL (1.8-7.8); NEUTROPHILS % (AUTO) 85 % (42-75); PLATELET COUNT 203 10^3/uL (130-400); WHITE BLOOD COUNT 8.1 10^3/uL (4.3-11.0)
[2023-02-08 05:15] LABS: ALBUMIN 3.1 GM/DL (3.2-4.5); ALKALINE PHOSPHATASE 52 U/L (40-136); BILIRUBIN,TOTAL 0.9 MG/DL (0.1-1.0); BUN/CREATININE RATIO 47; CALCIUM 9.4 MG/DL (8.5-10.1); CARBON DIOXIDE 30 MMOL/L (21-32); CHLORIDE 111 MMOL/L (98-107); CREATININE SERUM 0.62 MG/DL (0.60-1.30); GFR ESTIMATED 90; GLUCOSE 110 MG/DL (70-105); MAGNESIUM 2.1 MG/DL (1.6-2.4); PHOSPHORUS 2.3 MG/DL (2.3-4.7); POTASSIUM 2.7 MMOL/L (3.6-5.0); SODIUM 151 MMOL/L (135-145); TOTAL PROTEIN 5.9 GM/DL (6.4-8.2)
[2023-02-08] MEDS ORDERED: POTASSIUM CL 10MEQ/50ML IVPB 400 ML IV ONE (05:22)
[2023-02-08] MEDS: POTASSIUM CL 10MEQ/50ML IVPB 50 ML IV SCH ×7 (05:27→11:22)
[2023-02-08] MEDS: hydrALAZINE (APESOLINE) 20 MG/ML VIAL IV PRN (05:34)
[2023-02-08 05:48] LABS: ALANINE AMINOTRANSFERASE < 6 U/L (0-55)
[2023-02-08] MEDS: MAGNESIUM 1 GM/100 ML IVPB 100 ML IV SCH (05:50)
[2023-02-08] MEDS: KCL 20 MEQ TAB (K-DUR) PO SCH (05:50)
[2023-02-08] MEDS: D5W 1000 ML IV SOLUTION 1,000 ML IV SCH ×2 (06:57→13:13)
[2023-02-08] MEDS: FUROSEMIDE 40 MG/4 ML INJ (LASIX) IV SCH (07:00)
[2023-02-08] MEDS: ASPIRIN 81 MG CHEW (CHILDREN'S ASA) PO SCH (07:35)
[2023-02-08] MEDS: DOCUSATE SODIUM 100 MG (COLACE) CAP PO SCH ×2 (07:35→21:01)
--- NOTE | 2023-02-08 08:17 | Cardiology Progress Note ---
Subjective Date Seen by Provider: February 08, 2023 Time Seen by Provider: 08:16 Subjective/Events-last exam Patient was seen at bedside, laying down comfortably Lethargic Review of Systems General: Other (Unable to provide review of system) Focused Exam Lactate Level 02/05/23 08:34: Lactic Acid Level 2.88*H 02/05/23 10:28: Lactic Acid Level 1.17 Objective-Cardiology Exam Last Set of Vital Signs Vital Signs 02/07/23 02/08/23 02/08/23 02/08/23 11:52 07:00 07:34 07:36 Temp 36.0 Pulse 60 Resp 22 B/P (MAP) 114/57 (76) Pulse Ox 97 O2 Delivery OxyMask O2 Flow Rate 4.00 FiO2 35 I&O Intake and Output 02/07/23 23:59 Intake Total 50 ml Output Total 1480 ml Balance -1430 ml Intake Oral 0 ml IV Total 50 ml Output Urine Total 1480 ml General: Alert, Cooperative HEENT: Atraumatic Neck: Supple Lungs: Normal Air Movement, Other (Bilateral rhonchi) Heart: Regular Rate, Normal S1, Normal S2 Abdomen: Normal Bowel Sounds Skin: No Rashes Psych/Mental Status: Mood NL Results Lab Laboratory Tests 02/08/23 04:28 A/P-Cardiology Admission Diagnosis Acute respiratory failure COPD Type II [place] HTN Assessment/Plan Acute respiratory failure, likely multifactorial. COPD, pneumonia, acute on chronic diastolic congestive heart failure. Managed by medical team Slight improvement today. COPD/pneumonia, Slight improvement today Still lethargic. Type II non-STEMI, borderline elevated troponin. Likely secondary to severe systemic illness. Conservative management is recommended. Permanent atrial fibrillation, on oral anticoagulation. Heart rate is controlled. Continue to monitor Left bundle branch block, chronic. Pacemaker, no acute issues Moderate to severe aortic stenosis, repeat echocardiogram; however unlikely to be a reasonable candidate for any intervention. 2D echo was done in September 2022 with normal LV size, ejection fraction 65 to 70%, biatrial dilatation, mild mitral regurgitation, moderate aortic valve stenosis with mild aortic regurgitation, severe pulmonary hypertension with PA pressure 70 mmHg Acute on chronic diastolic congestive heart failure, IV Lasix. Poor prognosis. LILIANE ALMANZA MD February 08, 2023 08:17
[2023-02-08] MEDS ORDERED: APIXABAN 5 MG (ELIQUIS) TABLET PO SCH (09:00)
[2023-02-08] MEDS: FLUTICASONE/VILANTEROL 200 MCG 14'S (BREO) IH SCH (10:33)
--- NOTE | 2023-02-08 10:47 | Tele-ICU Progress Note ---
Subjective Date Seen by a Provider: February 08, 2023 Time Seen by a Provider: 10:46 Subjective/Events-last exam (Tele-ICU Physician , Progress Note ) Service provided via interactive audio and video telecommunications E-CARE system to a patient admitted to ICU bed in [facility]. Patient is seen today due to persistent need of ICU care Available chart/ vitals / labs / Images reviewed Video assessment done using teleICU camera, rest of exam as per RN Discussed with RN Events overnight : Afebrile hemodynamically stable Respiratory - 5l I/O = neg 1 l Drips: precedex 1.5 Pressors- no Hospital course: RECENT admission 11/07 with CHF, +COVID, hypoxic respiratory failure (11/28) 82yr F admitted for Acute on Chronic Respiratory failure, PNA, AECOPD,. DNR status. BIPAP 05/02 30 5 , rr20 , TV 450, levo on/off , Hb 6.7 - 1 uPCBC (02/05) 82F admitted with CHF/PNA, NSTEMI, aortic stenosis, afib-controlled 02/05- tolerates BIPAP well -11/05 85% rr 30 TV 390 [id number] 02/06 - faled off bipap 02/07 - on 5 L ,after night on BIPAP 11/05 35% 02/08 - OFF BIPAP , precedex 1.5 A/P Acute resp failure, hypoxic- most likely due to CHF - placed on NIPPV 02/07 - on 5 L -OFF BIPAP -try to wean off precedex , to assess by speech HFpEF - Echo on 10/09/22: LVEF 65-70%. Biatrial enlargement, mod to severe. Mild to mod MAC. Mild MR. Mod . Mild AI - avoid volume overload mod - severe aortic stenosis - monitor , as per cads note prior - -not a candidate for any intervvention - off IVF leukocytosis ( recent tx PNA ,RLL, HAP vs aspiration - merrem - finished 12/03 , also 11/2022 - UTI with e coli - covid neg in ER ( s/p recent covid 11/2022 -cxr with possible infiltrates - started empirically on cefepime Pulm HTN , -Echo on 10/09/22: PASP 70-75 mmHg - fluis status is chalenging given COPD, cronic resp failure - nebs A Fib - Sinus now - has been on OAC for stroke prophylaxis with Eliquis [employer]ICE - on Lovenox full dose since can not swallow pills now Hypernatremia - adding H2O IV - follow closely Anemia - mild , no bleed ( on lovenox ) Advanced dementia goals of care - DNR status on previous admissin - as per PCP /family discussion nitritions- NPO d3 - to discuss with family if still can not take PO Lines : , (Central Line Necessity Reviewed) [place]: ER 02/05 OG: Nutrition: npo Analgesia: Anxiety/ delirium VTE Prophylaxis: eliquis on hold on BIPAP - lovenox Stress Ulcer Prophylaxis: ppi Plans in collaboration with bedside consultants and IM MDs. Discussed with RN to reach out if any questions or concerns A total of 25 minutes of critical care time was devoted to this patient today, required to treat and/or prevent further deterioration of critical care condition ( as above ) . I am remotely monitoring this patient from another state. I am unable to do the bedside exam, and history/physical and pertinent information is taken from other notes in the computer and bedside staff. . Sepsis Event Evaluation Height, Weight, BMI Height: 5'4.00" Weight: 182lbs. 0.6oz. 77.487159jg; 22.42 BMI Method:Stated Exam Exam Patient acknowledged, consented, and participated in this virtual visit which was conducted using real time audio/video Vital Signs Date Time Temp Pulse Resp B/P (MAP) Pulse Ox O2 Delivery O2 Flow Rate FiO2 02/08/23 10:35 96 OxyMask 2.00 02/08/23 09:00 60 22 124/72 (89) 96 OxyMask 2.00 02/08/23 08:00 60 20 123/67 (85) 97 OxyMask 4.00 02/08/23 08:00 98 OxyMask 4.00 02/08/23 07:36 36.0 02/08/23 07:34 60 02/08/23 07:32 60 02/08/23 07:00 60 22 114/57 (76) 97 OxyMask 4.00 02/08/23 06:38 96 OxyMask 4.00 02/08/23 06:00 60 21 114/53 (73) 97 OxyMask 4.00 02/08/23 05:00 60 21 160/76 (104) 97 OxyMask 4.00 02/08/23 04:00 36.8 02/08/23 04:00 98 OxyMask 4.00 02/08/23 04:00 60 24 155/54 (87) 98 OxyMask 4.00 02/08/23 03:31 60 141/45 02/08/23 03:00 60 17 150/48 (82) 97 OxyMask 4.00 02/08/23 02:25 97 OxyMask 4.00 02/08/23 02:00 60 26 144/57 (86) 96 OxyMask 4.00 02/08/23 01:00 60 35 131/52 (78) 95 OxyMask 4.00 02/08/23 01:00 60 02/08/23 00:17 36.8 02/08/23 00:00 60 29 118/45 (69) 94 OxyMask 4.00 02/07/23 23:59 98 OxyMask 4.00 02/07/23 23:00 60 36 203/67 (112) 97 OxyMask 4.00 02/07/23 22:20 96 OxyMask 4.00 02/07/23 22:00 60 36 194/78 (116) 97 OxyMask 4.00 02/07/23 21:00 60 31 174/75 (108) 98 OxyMask 4.00 02/07/23 20:01 37.3 OxyMask 4.00 02/07/23 20:00 98 OxyMask 4.00 02/07/23 20:00 62 23 179/97 (124) 97 High Flow N/C 4.00 02/07/23 19:00 59 31 169/82 (111) 97 High Flow N/C 4.00 02/07/23 19:00 60 02/07/23 18:43 97 OxyMask 4.00 02/07/23 18:00 60 28 150/60 (90) 100 High Flow N/C 4.00 02/07/23 17:00 60 46 146/59 (88) 98 High Flow N/C 4.00 02/07/23 16:33 60 141/45 02/07/23 16:00 62 47 155/59 (91) 99 High Flow N/C 4.00 02/07/23 16:00 97 Nasal Cannula 5.00 02/07/23 15:00 68 26 155/59 (91) 98 High Flow N/C 4.00 02/07/23 14:09 99 Nasal Cannula 4.00 02/07/23 14:00 60 32 141/45 (77) 99 High Flow N/C 4.00 02/07/23 13:00 60 02/07/23 13:00 61 30 140/39 (72) 100 High Flow N/C 4.00 02/07/23 12:00 37.0 59 33 135/55 (81) 90 High Flow N/C 5.00 02/07/23 11:52 97 NIV Bilevel 35 02/07/23 11:00 60 29 129/52 (77) 97 High Flow N/C 6.00 02/07/23 10:53 99 Nasal Cannula 6.00 I & O 02/08/23 07:00 Intake Total 0 ml Output Total 1755 ml Balance -1755 ml Height & Weight Height: 5'4.00" Weight: 182lbs. 0.6oz. 77.057197hy; 22.42 BMI Method:Stated General Appearance: No Apparent Distress, WD/WN HEENT: Other (BiPAP mask in place obscuring some aspects of exam) Respiratory: Decreased Breath Sounds, Other (on BiPAP) Cardiovascular: Regular Rate, Rhythm, Systolic Murmur Capillary Refill: Less Than 3 Seconds Gastrointestinal: normal bowel sounds, non tender, soft; No distended, No guarding, No rebound Extremity: No Pedal Edema Neurologic/Psychiatric: Other (sedated) Results Lab Laboratory Tests 02/07/23 04:21 02/08/23 04:28 Assessment/Plan Assessment/Plan 1 EHSAN FULTON MD February 08, 2023 10:47
[2023-02-08] MEDS: fentaNYL INJ 100 MCG/2 ML AMP IVP PRN ×3 (11:23→21:41)
--- NOTE | 2023-02-08 11:57 | Progress Note - Hospitalist ---
Subjective HPI/CC On Admission Date Seen by Provider: February 08, 2023 Pt is an 82yoCF known to me from multiple previous admission who presented to the ER due to hypoxia. She wears 3-5lpm of oxygen at baseline and was found to be satting 80% and was placed on a nonrebreather. This improved her sats to the mid 80s and she was placed on BiPAP due to tachypnea. She is unable to provide any history but is laying in bed wearing BiPAP (which she often will fight in her normal state of health). She was admitted to the ICU for further management of respiratory failure. She was given Lasix and IV abx int he ER and cardiology was consulted due to mild troponin elevated. There is no family at bedside to supplement history. Subjective/Events-last exam Pt off BiPAP and alert but not really talking or answering. Did say "yes" when asked if she had any pain but unable to further elaborate symptoms. Objective Exam Vital Signs Vital Signs Date Time Temp Pulse Resp B/P (MAP) Pulse Ox O2 Delivery O2 Flow Rate FiO2 02/08/23 11:00 60 24 139/71 (93) 96 OxyMask 2.00 02/08/23 07:36 36.0 02/07/23 11:52 35 Capillary Refill : Less Than 3 Seconds General Appearance: No Apparent Distress, Chronically ill, Thin Respiratory: Lungs Clear, No Respiratory Distress, Other (oxi-mask in place) Cardiovascular: Regular Rate, Rhythm, Systolic Murmur Gastrointestinal: Normal Bowel Sounds, Non Tender, Soft Neurologic/Psychiatric: Alert, Oriented x3 Results/Procedures Lab Laboratory Tests 02/08/23 04:28 Patient resulted labs reviewed. Imaging: Reviewed Imaging Report Assessment/Plan Assessment and Plan Assess & Plan/Chief Complaint Acute on chronic respiratory failure with hypoxia HCAP COPD CHF On oximask- I weaned down to 2lpm Continue IV abx Continue lasix, -1.4L yesterday again TeleICU consulted, appreciate recs MAT protocol Continue home inhalers Requiring precedex still- try to wean HTN NSTEMII Aortic Stenosis Permanent a-fib Cardiology consulted, appreciate recs Troponin elevation likely due to hypoxia Telemetry Advanced dementia Poor prognosis I have had multiple conversations in past with her son regarding life exp ectancy Dr De Jesus spoke with him on admission and I updated son again 02/07 Palliative care consult Fentanyl added for pain as she can't take anything orally yet DVT ppx: Lovenox Critical Care Critically Ill Patient ABRAHAM CIFUENTES MD February 08, 2023 11:57
--- NOTE | 2023-02-08 12:09 | Speech Therapy Progress Note ---
Therapy Progress Note Speech pathology re-attempted the swallowing evaluation at 0910. At this time, the patient is not appropriate for participation in the assessment. ST will continue to attempt the evaluation as the patient is able to appropriately participate. ESTEFANÍA VERMA February 08, 2023 12:09
[2023-02-08] MEDS ORDERED: ENOXAPARIN 150 MG/ML (LOVENOX) SYR SQ SCH (12:15)
[2023-02-08] MEDS ORDERED: ENOXAPARIN 60 MG/0.6 ML (LOVENOX) SYR SC SCH (12:30)
[2023-02-08] MEDS: ENOXAPARIN 60 MG/0.6 ML (LOVENOX) SYR SC SCH (16:23)
[2023-02-08 20:24] VITALS: BP 133/76
[2023-02-08] MEDS: risperiDONE 0.5 MG (RisperDAL) TABLET PO SCH (21:01)
[2023-02-08] MEDS: AMITRIPTYLINE 25 MG (ELAVIL) TAB PO SCH (21:01)
[2023-02-08] MEDS: ALPRAZolam 0.25 MG (XANAX) TAB PO SCH (21:01)
[2023-02-08] MEDS: rOPINIRole 1 MG (REQUIP) TABLET PO SCH (21:01)
[2023-02-09] MEDS: CEFEPIME 1,000 MG/NS 50 ML IVPB IV SCH ×6 (00:57→15:53)
[2023-02-09] MEDS: RT-ALBUTEROL/IPRATROPIUM 3 ML (DUONEB) VIAL INH SCH ×6 (02:26→22:39)
[2023-02-09] MEDS: ENOXAPARIN 60 MG/0.6 ML (LOVENOX) SYR SC SCH ×2 (03:04→15:53)
[2023-02-09] MEDS: D5W 1000 ML IV SOLUTION 1,000 ML IV SCH ×2 (03:05→15:52)
[2023-02-09 05:02] LABS: BASOPHILS % (AUTO) 0 % (0-10); EOSINOPHILS # (AUTO) 0.1 10^3/uL (0.0-0.3); EOSINOPHILS % (AUTO) 1 % (0-10); HEMATOCRIT 36 % (35-52); HEMOGLOBIN 10.8 g/dL (11.5-16.0); LYMPHOCYTES # (AUTO) 0.8 10^3/uL (1.0-4.0); LYMPHOCYTES % (AUTO) 11 % (12-44); MEAN CORPUSCULAR HEMOGLOBIN 27 pg (25-34); MEAN CORPUSCULAR HGB CONC 30 g/dL (32-36); MEAN CORPUSCULAR VOLUME 90 fL (80-99); MEAN PLATELET VOLUME 11.9 fL (9.0-12.2); MONOCYTES # (AUTO) 0.4 10^3/uL (0.0-1.0); MONOCYTES % (AUTO) 6 % (0-12); NEUTROPHILS # (AUTO) 5.7 10^3/uL (1.8-7.8); NEUTROPHILS % (AUTO) 82 % (42-75); PLATELET COUNT 205 10^3/uL (130-400)
[2023-02-09 05:35] LABS: ALBUMIN 2.9 GM/DL (3.2-4.5); CREATININE SERUM 0.65 MG/DL (0.60-1.30); MAGNESIUM 1.9 MG/DL (1.6-2.4); PHOSPHORUS 2.4 MG/DL (2.3-4.7); POTASSIUM 3.2 MMOL/L (3.6-5.0); TOTAL PROTEIN 5.7 GM/DL (6.4-8.2)
[2023-02-09] MEDS ORDERED: POTASSIUM CL 10MEQ/50ML IVPB 400 ML IV ONE (05:44)
[2023-02-09] MEDS: POTASSIUM CL 10MEQ/50ML IVPB 50 ML IV SCH ×9 (05:51→12:45)
[2023-02-09] MEDS: fentaNYL INJ 100 MCG/2 ML AMP IVP PRN ×3 (05:52→22:50)
[2023-02-09] MEDS: MAGNESIUM 1 GM/100 ML IVPB 100 ML IV SCH (06:35)
[2023-02-09] MEDS: KCL 20 MEQ TAB (K-DUR) PO SCH (06:36)
[2023-02-09] MEDS: FUROSEMIDE 40 MG/4 ML INJ (LASIX) IV SCH (06:39)
--- NOTE | 2023-02-09 07:58 | Progress Note - Hospitalist ---
Subjective HPI/CC On Admission Date Seen by Provider: February 09, 2023 Pt is an 82yoCF known to me from multiple previous admission who presented to the ER due to hypoxia. She wears 3-5lpm of oxygen at baseline and was found to be satting 80% and was placed on a nonrebreather. This improved her sats to the mid 80s and she was placed on BiPAP due to tachypnea. She is unable to provide any history but is laying in bed wearing BiPAP (which she often will fight in her normal state of health). She was admitted to the ICU for further management of respiratory failure. She was given Lasix and IV abx int he ER and cardiology was consulted due to mild troponin elevated. There is no family at bedside to supplement history. Subjective/Events-last exam Pt slightly more alert today. opening eyes and attempted to answer some questions but often would just stare. No family at bedside. RN reports still on precedex but trying to wean down. Objective Exam Vital Signs Vital Signs Date Time Temp Pulse Resp B/P (MAP) Pulse Ox O2 Delivery O2 Flow Rate FiO2 02/09/23 07:42 36.1 60 22 142/72 (95) 98 Nasal Cannula 1.00 02/08/23 20:24 30 Capillary Refill : Less Than 3 Seconds General Appearance: Chronically ill Respiratory: Lungs Clear, No Respiratory Distress Cardiovascular: Regular Rate, Rhythm, Systolic Murmur Gastrointestinal: Normal Bowel Sounds, Soft Neurologic/Psychiatric: Alert, Other (unable to assess orientation) Results/Procedures Lab Laboratory Tests 02/09/23 04:18 Patient resulted labs reviewed. Imaging: Reviewed Imaging Report Assessment/Plan Assessment and Plan Assess & Plan/Chief Complaint Acute on chronic respiratory failure with hypoxia HCAP COPD CHF On NS - I weaned down to 1lpm- try to wean off if able Continue IV abx Hold lasix, -2.4L yesterday again and not taking in oral, developing a slight contraction alkalosis TeleICU consulted, appreciate recs MAT protocol Continue home inhalers Requiring precedex still- try to wean Speech consulted HTN NSTEMII Aortic Stenosis Permanent a-fib Cardiology consulted, appreciate recs Troponin elevation likely due to hypoxia Telemetry Continue Lovenox Advanced dementia Poor prognosis I have had multiple conversations in past with her son regarding life expec tancy Dr De Jesus spoke with him on admission and I updated son again 02/07 Palliative care consult Fentanyl for pain DVT ppx: Lovenox Critical Care Critically Ill Patient ABRAHAM CIFUENTES MD February 09, 2023 07:58
--- NOTE | 2023-02-09 08:04 | Cardiology Progress Note ---
Subjective Date Seen by Provider: February 09, 2023 Time Seen by Provider: 08:02 Subjective/Events-last exam Patient was seen at bedside, lethargic, not answering any question, not following commands Review of Systems General: Other (Unable to provide review of system) Objective-Cardiology Exam Last Set of Vital Signs Vital Signs 02/08/23 20:24 FiO2 30 I&O Intake and Output 02/09/23 00:00 Intake Total 0 ml Output Total 2450 ml Balance -2450 ml Intake Oral 0 ml Output Urine Total 2450 ml General: Alert, Other (Not answering questions or following commands) HEENT: Atraumatic Neck: Supple Lungs: Normal Air Movement, Other (Bilateral rhonchi) Heart: Regular Rate, Normal S1, Normal S2, Other (Aortic stenosis murmur) Abdomen: Normal Bowel Sounds Skin: No Rashes Neuro: Other (Not following commands) Psych/Mental Status: Mood NL, Other (Not answering questions) Results Lab Laboratory Tests 02/09/23 04:18 A/P-Cardiology Admission Diagnosis Acute respiratory failure COPD Type II VA HTN Assessment/Plan Acute respiratory failure, likely multifactorial. COPD, pneumonia, acute on chronic diastolic congestive heart failure. Managed by medical team Currently back to nasal cannula and tolerating it well. COPD/pneumonia, Managed by medical team Type II non-STEMI, borderline elevated troponin. Likely secondary to severe systemic illness. Conservative management is recommended. Permanent atrial fibrillation, on oral anticoagulation. Heart rate is controlled. Continue to monitor Left bundle branch block, chronic. Pacemaker, no acute issues Moderate to severe aortic stenosis, repeat echocardiogram; however unlikely to be a reasonable candidate for any intervention. 2D echo was done in September 2022 with normal LV size, ejection fraction 65 to 70%, biatrial dilatation, mild mitral regurgitation, moderate aortic valve stenosis with mild aortic regurgitation, severe pulmonary hypertension with PA pressure 70 mmHg Acute on chronic diastolic congestive heart failure, IV Lasix. Poor prognosis. LILIANE ALMANZA MD February 09, 2023 08:04
--- NOTE | 2023-02-09 08:43 | Diagnostic Imaging Report ---
Indication: CHF Frontal chest obtained 8:22 a.m. and compared to 02/05/2023. There is cardiomegaly. There is central vascular congestion with interstitial edema, similar to the prior study. There is a small amount pleural fluid on both sides, left greater than right. There is no pneumothorax. Impression: Cardiomegaly with central vascular congestion with mild interstitial edema with bilateral pleural effusions left greater than right. Dictated by: Dictated on workstation # [id number]
[2023-02-09] MEDS: ASPIRIN 81 MG CHEW (CHILDREN'S ASA) PO SCH (09:00)
[2023-02-09] MEDS: DOCUSATE SODIUM 100 MG (COLACE) CAP PO SCH ×2 (09:00→20:17)
--- NOTE | 2023-02-09 10:28 | Physical Therapy Progress Note ---
Therapy Progress Note This PT contacted patient's facility inquiring about patient's PLOF. Patient is a Joana Lift PLOF at [place] per nursing staff. Due to patient's prior dependence with mobility, No skilled PT indicated. Physician notified. CHRISTI BOYLE PT February 09, 2023 10:28
[2023-02-09] MEDS: FLUTICASONE/VILANTEROL 200 MCG 14'S (BREO) IH SCH (10:49)
--- NOTE | 2023-02-09 14:17 | Tele-ICU Progress Note ---
Subjective Date Seen by a Provider: February 09, 2023 Time Seen by a Provider: 08:50 Subjective/Events-last exam (Tele-ICU Physician , Progress Note ) Service provided via interactive audio and video telecommunications E-CARE system to a patient admitted to ICU bed in [facility]. Patient is seen today due to persistent need of ICU care Available chart/ vitals / labs / Images reviewed Video assessment done using teleICU camera, rest of exam as per RN She is admitted with the shortness of breath, hypoxia lethargy. She is found to have a combination of decompensated CHF, COPD exacerbation and possible pneumonia. She is initially treated with a diuretic therapy BiPAP ventilation and now she is clinically improving. Her oxygen is weaned off and she is currently on room air. Today we have done a chest x-ray which showed improvement of pulmonary congestive changes. She has no fever present. She does have a history of permanent pacemaker insertion, aortic stenosis and a permanent chronic atrial fibrillation and currently on oral anticoagulation. Heart rate is now controlled. Impression 1. Acute and chronic respiratory failure improved clinically 2. CHF decompensated improved 3. Atrial fibrillation chronic rate controlled 3. Altered mental status somewhat improved but she is still lethargic. 5. Her cultures are so far negative and leukocytosis improved. Recommendations 1. Continue to monitor her on room air and if needed will give oxygen via nasal cannula 2. Continue diuretic therapy per cardiology 3. Atrial fibrillation management per cardiology 4. Continue antibiotic therapy for another day or 2 5. Anticoagulation per cardiology Coordination of care with primary care physician and other bedside consultants. I am remotely monitoring this patient from Tele icu station in [place]. I am unable to do the bedside exam, and history/physical and pertinent information is taken from other notes in the computer and bedside staff. Certain portions of this document may have been dictated utilizing voice recognition technology such as [employer]. Inherent to this technology, typographical and grammatical errors may exist. As much as I am diligent to identify and correct to these mistakes, some errors may remain in the document. Critical care time devoted to this patient today is approximately is 25 minutes. Sepsis Event Evaluation Height, Weight, BMI Height: 5'4.00" Weight: 182lbs. 0.6oz. 77.604767pb; 22.42 BMI Method:Stated Exam Exam Patient acknowledged, consented, and participated in this virtual visit which was conducted using real time audio/video Vital Signs Date Time Temp Pulse Resp B/P (MAP) Pulse Ox O2 Delivery O2 Flow Rate FiO2 02/09/23 14:00 86 27 185/100 (128) 92 Nasal Cannula 1.00 02/09/23 13:00 85 12 92 Nasal Cannula 1.00 02/09/23 12:32 80 02/09/23 12:00 79 11 93 Nasal Cannula 1.00 02/09/23 12:00 36.9 02/09/23 12:00 98 Nasal Cannula 1.00 02/09/23 11:00 87 8 93 Nasal Cannula 1.00 02/09/23 10:49 98 Nasal Cannula 2.00 02/09/23 10:00 77 20 126/59 (89) 88 Nasal Cannula 1.00 02/09/23 09:00 71 21 141/103 (118) 90 Nasal Cannula 1.00 02/09/23 08:00 98 Nasal Cannula 1.00 02/09/23 08:00 59 33 138/60 (90) 91 Nasal Cannula 1.00 02/09/23 07:42 36.1 60 22 142/72 (95) 98 Nasal Cannula 1.00 02/09/23 07:42 60 02/09/23 07:00 60 02/09/23 06:23 96 Nasal Cannula 2.00 02/09/23 06:00 60 23 156/69 (98) 97 Nasal Cannula 2.00 02/09/23 05:00 60 27 142/51 (81) 95 Nasal Cannula 2.00 02/09/23 04:00 36.2 02/09/23 04:00 60 27 153/43 (79) 96 Nasal Cannula 2.00 02/09/23 04:00 98 Nasal Cannula 2.00 02/09/23 03:00 60 24 142/42 (75) 96 Nasal Cannula 2.00 02/09/23 02:27 93 Nasal Cannula 2.00 02/09/23 02:00 60 29 152/49 (83) 92 Nasal Cannula 2.00 02/09/23 01:00 60 18 144/54 (84) 95 Nasal Cannula 2.00 02/09/23 01:00 60 02/09/23 00:00 60 23 146/53 (84) 96 Nasal Cannula 2.00 02/08/23 23:59 98 Nasal Cannula 2.00 02/08/23 23:00 60 28 136/49 (78) 93 Nasal Cannula 2.00 02/08/23 22:00 60 28 168/55 (92) 100 Nasal Cannula 2.00 02/08/23 21:55 93 Nasal Cannula 2.00 02/08/23 21:00 60 28 120/54 (76) 95 Nasal Cannula 2.00 02/08/23 20:24 36.0 60 96 30 02/08/23 20:00 36.8 Nasal Cannula 2.00 02/08/23 20:00 60 27 124/59 (80) 94 Nasal Cannula 2.00 02/08/23 20:00 98 Nasal Cannula 2.00 02/08/23 19:00 60 28 139/63 (88) 96 Nasal Cannula 2.00 02/08/23 19:00 60 02/08/23 18:41 98 Nasal Cannula 2.00 02/08/23 18:00 60 24 134/63 (86) 97 Nasal Cannula 2.00 02/08/23 17:00 60 40 126/63 (84) 95 Nasal Cannula 2.00 02/08/23 16:00 98 Nasal Cannula 2.00 02/08/23 16:00 60 27 119/58 (78) 95 Nasal Cannula 2.00 02/08/23 15:46 60 138/56 02/08/23 15:00 60 138/56 (83) 94 Nasal Cannula 2.00 02/08/23 14:33 96 Nasal Cannula 2.00 I & O0 02/09/23 07:00 Intake Total 0 ml Output Total 2325 ml Balance -2325 ml Height & Weight Height: 5'4.00" Weight: 182lbs. 0.6oz. 77.232955tt; 22.42 BMI Method:Stated General Appearance: Chronically ill HEENT: Other (BiPAP mask in place obscuring some aspects of exam) Respiratory: Lungs Clear, No Respiratory Distress Cardiovascular: Regular Rate, Rhythm, Systolic Murmur Capillary Refill: Less Than 3 Seconds Gastrointestinal: normal bowel sounds, non tender, soft; No distended, No guarding, No rebound Extremity: No Pedal Edema Neurologic/Psychiatric: Alert, Other (unable to assess orientation) Results Lab Laboratory Tests 02/08/23 04:28 02/09/23 04:18 Assessment/Plan Assessment/Plan as above Critical Care: Critically Ill Patient Time spent with patient (mins): 25 ROBERTH RODRÍGUEZ MD February 09, 2023 14:17
[2023-02-09] MEDS: AMITRIPTYLINE 25 MG (ELAVIL) TAB PO SCH (20:17)
[2023-02-09] MEDS: rOPINIRole 1 MG (REQUIP) TABLET PO SCH (20:17)
[2023-02-09] MEDS: ALPRAZolam 0.25 MG (XANAX) TAB PO SCH (20:17)
[2023-02-09] MEDS: risperiDONE 0.5 MG (RisperDAL) TABLET PO SCH (20:17)
[2023-02-10] MEDS: CEFEPIME 1,000 MG/NS 50 ML IVPB IV SCH ×4 (01:34→08:59)
[2023-02-10] MEDS: RT-ALBUTEROL/IPRATROPIUM 3 ML (DUONEB) VIAL INH SCH ×6 (02:12→22:45)
[2023-02-10] MEDS: ENOXAPARIN 60 MG/0.6 ML (LOVENOX) SYR SC SCH ×2 (03:50→15:00)
[2023-02-10] MEDS: HYDROcodone/APAP 5 MG/325 MG (LORTAB) TAB PO PRN (03:59)
[2023-02-10] MEDS: fentaNYL INJ 100 MCG/2 ML AMP IVP PRN ×2 (03:59→22:07)
[2023-02-10 05:10] LABS: BASOPHILS % (AUTO) 0 % (0-10); EOSINOPHILS # (AUTO) 0.2 10^3/uL (0.0-0.3); EOSINOPHILS % (AUTO) 2 % (0-10); HEMATOCRIT 38 % (35-52); HEMOGLOBIN 11.8 g/dL (11.5-16.0); LYMPHOCYTES # (AUTO) 1.2 10^3/uL (1.0-4.0); LYMPHOCYTES % (AUTO) 14 % (12-44); MEAN CORPUSCULAR HEMOGLOBIN 28 pg (25-34); MEAN CORPUSCULAR HGB CONC 31 g/dL (32-36); MEAN CORPUSCULAR VOLUME 90 fL (80-99); MEAN PLATELET VOLUME 11.8 fL (9.0-12.2); MONOCYTES # (AUTO) 0.7 10^3/uL (0.0-1.0); MONOCYTES % (AUTO) 8 % (0-12); NEUTROPHILS # (AUTO) 6.3 10^3/uL (1.8-7.8); NEUTROPHILS % (AUTO) 75 % (42-75); PLATELET COUNT 253 10^3/uL (130-400); WHITE BLOOD COUNT 8.4 10^3/uL (4.3-11.0)
[2023-02-10 05:30] LABS: ALBUMIN 3.1 GM/DL (3.2-4.5); BILIRUBIN,TOTAL 1.5 MG/DL (0.1-1.0); CALCIUM 9.2 MG/DL (8.5-10.1); CREATININE SERUM 0.64 MG/DL (0.60-1.30); MAGNESIUM 1.8 MG/DL (1.6-2.4); PHOSPHORUS 2.2 MG/DL (2.3-4.7); POTASSIUM 2.9 MMOL/L (3.6-5.0); TOTAL PROTEIN 6.1 GM/DL (6.4-8.2)
[2023-02-10] MEDS: POTASSIUM CL 10MEQ/50ML IVPB 50 ML IV SCH ×4 (05:47→08:04)
[2023-02-10] MEDS: MAGNESIUM 1 GM/100 ML IVPB 100 ML IV SCH ×2 (05:47→05:56)
[2023-02-10] MEDS: KCL 20 MEQ TAB (K-DUR) PO SCH (05:47)
[2023-02-10] MEDS ORDERED: POTASSIUM CL 10MEQ/50ML IVPB 50 ML IV SCH (06:00)
[2023-02-10] MEDS: FLUTICASONE/VILANTEROL 200 MCG 14'S (BREO) IH SCH (07:04)
[2023-02-10] MEDS: D5W 1000 ML IV SOLUTION 1,000 ML IV SCH (07:28)
[2023-02-10] MEDS: DOCUSATE SODIUM 100 MG (COLACE) CAP PO SCH ×2 (08:59→20:32)
[2023-02-10] MEDS: ASPIRIN 81 MG CHEW (CHILDREN'S ASA) PO SCH (09:00)
--- NOTE | 2023-02-10 09:33 | Progress Note - Hospitalist ---
Subjective HPI/CC On Admission Pt is an 82yoCF known to me from multiple previous admission who presented to the ER due to hypoxia. She wears 3-5lpm of oxygen at baseline and was found to be satting 80% and was placed on a nonrebreather. This improved her sats to the mid 80s and she was placed on BiPAP due to tachypnea. She is unable to provide any history but is laying in bed wearing BiPAP (which she often will fight in her normal state of health). She was admitted to the ICU for further management of respiratory failure. She was given Lasix and IV abx int he ER and cardiology was consulted due to mild troponin elevated. There is no family at bedside to supplement history. Objective Exam Vital Signs Vital Signs Date Time Temp Pulse Resp B/P (MAP) Pulse Ox O2 Delivery O2 Flow Rate FiO2 02/10/23 09:00 87 20 172/88 (117) 91 Nasal Cannula 2.00 02/10/23 02:26 36.8 02/08/23 20:24 30 Capillary Refill : Less Than 3 Seconds General Appearance: No Apparent Distress, Chronically ill, Thin Respiratory: No Accessory Muscle Use, Decreased Breath Sounds Cardiovascular: Regular Rate, Rhythm, Systolic Murmur Neurologic/Psychiatric: Alert, Other (opens eyes but did not speak, tracks) Results/Procedures Lab Laboratory Tests 02/10/23 05:02 Patient resulted labs reviewed. Imaging: Reviewed Imaging Report Assessment/Plan Assessment and Plan Assess & Plan/Chief Complaint Acute on chronic respiratory failure with hypoxia HCAP COPD CHF On NC - I weaned down to 1lpm Continue IV abx Hold lasix, -1.8L yesterday TeleICU consulted, appreciate recs MAT protocol Continue home inhalers Speech consulted Off precedex- transfer to 4th HTN NSTEMII Aortic Stenosis Permanent a-fib Cardiology consulted, appreciate recs Troponin elevation likely due to hypoxia Telemetry Continue Lovenox Advanced dementia Poor prognosis I have had multiple conversations in past with her son regarding life expectancy Dr De Jesus spoke with him on admission and I updated son again 02/10 Palliative care consult Fentanyl for pain DVT ppx: Lovenox Critical Care Critically Ill Patient ABRAHAM ICFUENTES MD February 10, 2023 09:33
--- NOTE | 2023-02-10 09:47 | Cardiology Progress Note ---
Subjective Date Seen by Provider: February 10, 2023 Time Seen by Provider: 09:46 Subjective/Events-last exam Patient was seen at bedside, lethargic, moaning in bed. Review of Systems General: Other (Unable to provide review of system) Objective-Cardiology Exam Last Set of Vital Signs Vital Signs 02/08/23 02/10/23 02/10/23 20:24 02:26 09:00 Temp 36.8 Pulse 87 Resp 20 B/P (MAP) 172/88 (117) Pulse Ox 91 O2 Delivery Nasal Cannula O2 Flow Rate 2.00 FiO2 30 I&O Intake and Output 02/10/23 00:00 Intake Total 360 ml Output Total 2175 ml Balance -1815 ml Intake Oral 360 ml Output Urine Total 2175 ml General: Alert, Other (Not answering questions or following commands) HEENT: Atraumatic Neck: Supple Lungs: Normal Air Movement, Other (Bilateral rhonchi) Heart: Regular Rate, Normal S1, Normal S2, Other (Aortic stenosis murmur) Abdomen: Normal Bowel Sounds Skin: No Rashes Neuro: Other (Not following commands) Psych/Mental Status: Mood NL, Other (Not answering questions) Results Lab Laboratory Tests 02/10/23 05:02 A/P-Cardiology Admission Diagnosis Acute respiratory failure COPD Type II MD HTN Assessment/Plan Acute respiratory failure, likely multifactorial. COPD, pneumonia, acute on chronic diastolic congestive heart failure. Managed by medical team Currently back to nasal cannula and tolerating it well. COPD/pneumonia, Managed by medical team Type II non-STEMI, borderline elevated troponin. Likely secondary to severe s ystemic illness. Conservative management is recommended. Permanent atrial fibrillation, on oral anticoagulation. Heart rate is controlled. Continue to monitor Left bundle branch block, chronic. Pacemaker, no acute issues Moderate to severe aortic stenosis, repeat echocardiogram; however unlikely to be a reasonable candidate for any intervention. 2D echo was done in September 2022 with normal LV size, ejection fraction 65 to 70%, biatrial dilatation, mild mitral regurgitation, moderate aortic valve stenosis with mild aortic regurgitation, severe pulmonary hypertension with PA pressure 70 mmHg Acute on chronic diastolic congestive heart failure, IV Lasix. Poor prognosis. LILIANE ALMANZA MD February 10, 2023 09:47
--- NOTE | 2023-02-10 10:42 | Tele-ICU Progress Note ---
Subjective Date Seen by a Provider: February 10, 2023 Time Seen by a Provider: 10:42 Subjective/Events-last exam (Tele-ICU Physician , Progress Note ) Service provided via interactive audio and video telecommunications E-CARE system to a patient admitted to ICU bed in [facility]. Patient is seen today due to persistent need of ICU care Available chart/ vitals / labs / Images reviewed Video assessment done using teleICU camera, rest of exam as per RN Discussed with RN Events overnight : Afebrile hemodynamically stable Respiratory - 5l I/O = neg 1 l Drips: precedex 1.5 Pressors- no Hospital course: RECENT admission 11/07 with CHF, +COVID, hypoxic respiratory failure (11/28) 82yr F admitted for Acute on Chronic Respiratory failure, PNA, AECOPD,. DNR status. BIPAP 05/02 30 5 , rr20 , TV 450, levo on/off , Hb 6.7 - 1 uPCBC (02/05) 82F admitted with CHF/PNA, NSTEMI, aortic stenosis, afib-controlled 02/05- tolerates BIPAP well -8 85% rr 30 TV 390 [id number] 02/06 - faled off bipap 02/07 - on 5 L ,after night on BIPAP /8 35% 02/08 - OFF BIPAP , precedex 1.5 02/10 - off precedex , 2 L NS o2 A/P Acute resp failure, hypoxic- most likely due to CHF - resolved , , 2 L NS o2 -OFF BIPAP off precedex HFpEF - Echo on 10/09/22: LVEF 65-70%. Biatrial enlargement, mod to severe. Mild to mod MAC. Mild MR. Mod . 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 Discussed with RN to reach out if any questions or concerns A total of 10 minutes of critical care time was devoted to this patient today, required to treat and/or prevent further deterioration of critical care condition ( as above ) . I am remotely monitoring this patient from another state. I am unable to do the bedside exam, and history/physical and pertinent information is taken from other notes in the computer and bedside staff. . Sepsis Event Evaluation Height, Weight, BMI Height: 5'4.00" Weight: 182lbs. 0.6oz. [id number]; 21.70 BMI Method:Stated Exam Exam Patient acknowledged, consented, and participated in this virtual visit which was conducted using real time audio/video Vital Signs Date Time Temp Pulse Resp B/P (MAP) Pulse Ox O2 Delivery O2 Flow Rate FiO2 02/10/23 10:32 94 Nasal Cannula 1.50 02/10/23 10:00 89 160/88 (121) 92 Nasal Cannula 2.00 02/10/23 09:00 87 20 172/88 (117) 91 Nasal Cannula 2.00 02/10/23 08:00 78 14 152/86 (124) 95 Nasal Cannula 2.00 02/10/23 08:00 94 Nasal Cannula 2.00 02/10/23 07:05 94 Nasal Cannula 1.50 02/10/23 07:00 77 17 150/79 (111) 97 Nasal Cannula 2.00 02/10/23 07:00 79 02/10/23 06:00 81 17 149/77 (101) 95 Nasal Cannula 2.00 02/10/23 05:00 83 26 138/68 (91) 94 Nasal Cannula 2.00 02/10/23 04:00 83 19 137/78 (97) 94 Nasal Cannula 2.00 02/10/23 03:51 94 Nasal Cannula 2.00 02/10/23 03:00 79 25 142/76 (98) 94 Nasal Cannula 2.00 02/10/23 02:26 36.8 Nasal Cannula 2.00 02/10/23 02:14 92 Nasal Cannula 1.50 02/10/23 02:00 79 25 139/75 (96) 95 Nasal Cannula 2.00 02/10/23 01:00 83 02/10/23 01:00 79 29 132/80 (97) 94 Nasal Cannula 2.00 02/10/23 00:33 95 Nasal Cannula 2.00 02/10/23 00:00 76 27 143/86 (105) 94 Nasal Cannula 2.00 02/09/23 23:01 91 Nasal Cannula 2.00 02/09/23 23:00 77 25 136/82 (100) 90 Room Air 02/09/23 22:43 36.8 Room Air 02/09/23 22:40 90 Room Air 02/09/23 22:00 86 22 139/68 (91) 90 Room Air 02/09/23 21:00 77 27 144/61 (88) 91 Room Air 02/09/23 20:58 94 Room Air 02/09/23 20:26 Room Air 02/09/23 20:00 76 18 163/79 (107) 94 Room Air 02/09/23 19:26 36.9 02/09/23 19:00 83 02/09/23 19:00 81 21 93 Room Air 02/09/23 18:47 92 Room Air 02/09/23 18:00 79 19 160/82 (108) 91 Room Air 02/09/23 17:00 80 19 91 Room Air 02/09/23 16:00 78 91 Room Air 02/09/23 16:00 98 Room Air 02/09/23 15:51 36.5 02/09/23 15:08 37.1 86 18 161/76 (104) 94 Room Air 02/09/23 15:00 87 18 154/78 (103) 92 Nasal Cannula 1.00 02/09/23 14:30 92 Room Air 2.00 02/09/23 14:00 86 27 185/100 (128) 92 Nasal Cannula 1.00 02/09/23 13:00 85 12 92 Nasal Cannula 1.00 02/09/23 12:32 80 02/09/23 12:00 79 11 93 Nasal Cannula 1.00 02/09/23 12:00 36.9 02/09/23 12:00 98 Nasal Cannula 1.00 02/09/23 11:00 87 8 93 Nasal Cannula 1.00 02/09/23 10:49 98 Nasal Cannula 2.00 I & O 02/10/23 07:00 Intake Total 540 ml Output Total 2225 ml Balance -1685 ml Height & Weight Height: 5'4.00" Weight: 182lbs. 0.6oz. [id number]; 21.70 BMI Method:Stated General Appearance: No Apparent Distress, Chronically ill, Thin HEENT: Other (BiPAP mask in place obscuring some aspects of exam) Respiratory: No Accessory Muscle Use, Decreased Breath Sounds Cardiovascular: Regular Rate, Rhythm, Systolic Murmur Capillary Refill: Less Than 3 Seconds Gastrointestinal: normal bowel sounds, non tender, soft; No distended, No guarding, No rebound Extremity: No Pedal Edema Neurologic/Psychiatric: Alert, Other (opens eyes but did not speak, tracks) Results Lab Laboratory Tests 02/09/23 04:18 02/10/23 05:02 Assessment/Plan Assessment/Plan 1 EHSAN FULTON MD February 10, 2023 10:42
[2023-02-10 11:33] VITALS: BP 160/88
[2023-02-10 11:40] VITALS: BP 181/89
[2023-02-10 15:57] VITALS: BP 172/88
[2023-02-10 20:19] VITALS: BP 206/98
[2023-02-10] MEDS: ALPRAZolam 0.25 MG (XANAX) TAB PO SCH (20:32)
[2023-02-10] MEDS: rOPINIRole 1 MG (REQUIP) TABLET PO SCH (20:32)
[2023-02-10] MEDS: risperiDONE 0.5 MG (RisperDAL) TABLET PO SCH (20:32)
[2023-02-10] MEDS: AMITRIPTYLINE 25 MG (ELAVIL) TAB PO SCH (20:32)
[2023-02-10] MEDS: hydrALAZINE (APESOLINE) 20 MG/ML VIAL IV PRN (20:33)
[2023-02-10 22:05] VITALS: BP 145/80
[2023-02-10 23:51] VITALS: BP 167/80
[2023-02-11] MEDS: HYDROcodone/APAP 5 MG/325 MG (LORTAB) TAB PO PRN ×2 (01:00→10:13)
[2023-02-11] MEDS: D5W 1000 ML IV SOLUTION 1,000 ML IV SCH ×2 (01:53→22:17)
[2023-02-11] MEDS: ENOXAPARIN 60 MG/0.6 ML (LOVENOX) SYR SC SCH ×2 (04:07→16:09)
[2023-02-11 04:45] VITALS: BP 166/76
[2023-02-11] MEDS: hydrALAZINE (APESOLINE) 20 MG/ML VIAL IV PRN (05:17)
[2023-02-11 05:41] LABS: BASOPHILS % (AUTO) 0 % (0-10); EOSINOPHILS # (AUTO) 0.7 10^3/uL (0.0-0.3); EOSINOPHILS % (AUTO) 8 % (0-10); HEMATOCRIT 40 % (35-52); HEMOGLOBIN 12.4 g/dL (11.5-16.0); LYMPHOCYTES # (AUTO) 1.2 10^3/uL (1.0-4.0); LYMPHOCYTES % (AUTO) 13 % (12-44); MEAN CORPUSCULAR HEMOGLOBIN 28 pg (25-34); MEAN CORPUSCULAR HGB CONC 31 g/dL (32-36); MEAN CORPUSCULAR VOLUME 89 fL (80-99); MEAN PLATELET VOLUME 12.2 fL (9.0-12.2); MONOCYTES # (AUTO) 0.8 10^3/uL (0.0-1.0); MONOCYTES % (AUTO) 8 % (0-12); NEUTROPHILS # (AUTO) 6.6 10^3/uL (1.8-7.8); NEUTROPHILS % (AUTO) 71 % (42-75); PLATELET COUNT 268 10^3/uL (130-400); WHITE BLOOD COUNT 9.3 10^3/uL (4.3-11.0)
[2023-02-11 06:05] LABS: ALBUMIN 3.4 GM/DL (3.2-4.5); POTASSIUM 3.6 MMOL/L (3.6-5.0)
[2023-02-11 06:06] LABS: CALCIUM 9.5 MG/DL (8.5-10.1)
[2023-02-11 06:08] LABS: TOTAL PROTEIN 6.3 GM/DL (6.4-8.2)
[2023-02-11 06:09] LABS: BILIRUBIN,TOTAL 1.3 MG/DL (0.1-1.0)
[2023-02-11 06:11] LABS: CREATININE SERUM 0.63 MG/DL (0.60-1.30); PHOSPHORUS 2.1 MG/DL (2.3-4.7)
[2023-02-11 06:14] LABS: MAGNESIUM 2.1 MG/DL (1.6-2.4)
[2023-02-11] MEDS: MAGNESIUM 1 GM/100 ML IVPB 100 ML IV SCH (06:28)
[2023-02-11] MEDS ORDERED: KCL 20 MEQ TAB (K-DUR) PO NR (07:00)
[2023-02-11] MEDS: KCL 20 MEQ TAB (K-DUR) PO SCH (07:08)
[2023-02-11] MEDS: RT-ALBUTEROL/IPRATROPIUM 3 ML (DUONEB) VIAL INH SCH ×2 (07:54→20:50)
[2023-02-11 08:11] VITALS: BP 133/64
[2023-02-11] MEDS: ASPIRIN 81 MG CHEW (CHILDREN'S ASA) PO SCH (08:20)
[2023-02-11] MEDS: DOCUSATE SODIUM 100 MG (COLACE) CAP PO SCH ×2 (08:21→19:59)
[2023-02-11] MEDS: FLUTICASONE/VILANTEROL 200 MCG 14'S (BREO) IH SCH (09:25)
--- NOTE | 2023-02-11 10:38 | Cardiology Progress Note ---
Subjective Date Seen by Provider: February 11, 2023 Time Seen by Provider: 10:37 Subjective/Events-last exam Patient was seen at bedside, laying down comfortably. Not verbal. No reported changes Objective-Cardiology Exam Last Set of Vital Signs Vital Signs 02/11/23 02/11/23 02/11/23 03:14 07:54 08:11 Temp 37.0 Pulse 95 Resp 20 B/P (MAP) 133/64 (87) Pulse Ox 93 O2 Delivery Nasal Cannula O2 Flow Rate 2.00 FiO2 30 I&O Intake and Output 02/11/23 00:00 Intake Total 1240 ml Output Total 1150 ml Balance 90 ml Intake Oral 1190 ml IV Total 50 ml Output Urine Total 1150 ml General: Alert, Other (Not answering questions or following commands) HEENT: Atraumatic Neck: Supple Lungs: Normal Air Movement, Other (Bilateral rhonchi) Heart: Regular Rate, Normal S1, Normal S2, Other (Aortic stenosis murmur) Abdomen: Normal Bowel Sounds Skin: No Rashes Neuro: Other (Not following commands) Psych/Mental Status: Mood NL, Other (Not answering questions) Results Lab Laboratory Tests 02/11/23 05:09 A/P-Cardiology Admission Diagnosis Acute respiratory failure COPD Type II MA HTN Assessment/Plan Status post acute respiratory failure, likely multifactorial. COPD, pneumonia, acute on chronic diastolic congestive heart failure. Improved, currently laying down in bed Maintained on nasal cannula Managed by medical team COPD/pneumonia, Improved, managed by medical team Type II non-STEMI, borderline elevated troponin. Likely secondary to severe systemic illness. Conservative management is recommended. Permanent atrial fibrillation, on oral anticoagulation. Heart rate is controlled. Continue to monitor Left bundle branch block, chronic. Pacemaker, no acute issues Moderate to severe aortic stenosis, repeat echocardiogram; however unlikely to be a reasonable candidate for any intervention. 2D echo was done in September 2022 with normal LV size, ejection fraction 65 to 70%, biatrial dilatation, mild mitral regurgitation, moderate aortic valve stenosis with mild aortic regurgitation, severe pulmonary hypertension with PA pressure 70 mmHg Acute on chronic diastolic congestive heart failure, IV Lasix. Poor prognosis. LILIANE ALMANZA MD February 11, 2023 10:38
[2023-02-11 11:22] VITALS: BP 149/71
--- NOTE | 2023-02-11 12:06 | Progress Note - Hospitalist ---
Subjective HPI/CC On Admission Date Seen by Provider: February 11, 2023 Pt is an 82yoCF known to me from multiple previous admission who presented to the ER due to hypoxia. She wears 3-5lpm of oxygen at baseline and was found to be satting 80% and was placed on a nonrebreather. This improved her sats to the mid 80s and she was placed on BiPAP due to tachypnea. She is unable to provide any history but is laying in bed wearing BiPAP (which she often will fight in her normal state of health). She was admitted to the ICU for further management of respiratory failure. She was given Lasix and IV abx int he ER and cardiology was consulted due to mild troponin elevated. There is no family at bedside to supplement history. Subjective/Events-last exam Pt more alert but doesn't really speak. Shakes head no when asked if she needed anything. No family at bedside. Objective Exam Vital Signs Vital Signs Date Time Temp Pulse Resp B/P (MAP) Pulse Ox O2 Delivery O2 Flow Rate FiO2 02/11/23 11:22 36.4 95 20 149/71 (97) 96 Nasal Cannula 2.00 02/11/23 03:14 30 Capillary Refill : Less Than 3 Seconds General Appearance: No Apparent Distress, Chronically ill, Thin Respiratory: Lungs Clear Cardiovascular: Regular Rate, Rhythm, Systolic Murmur Neurologic/Psychiatric: Alert, Oriented x3 Results/Procedures Lab Laboratory Tests 02/11/23 05:09 Patient resulted labs reviewed. Imaging: Reviewed Imaging Report Assessment/Plan Assessment and Plan Assess & Plan/Chief Complaint Acute on chronic respiratory failure with hypoxia HCAP COPD CHF On NC 2lpm Completed abx Hold lasix, net neutral yesterday TeleICU consulted, appreciate recs MAT protocol Continue home inhalers Speech consulted HTN NSTEMII Aortic Stenosis Permanent a-fib Cardiology consulted, appreciate recs Troponin elevation likely due to hypoxia Telemetry Continue Lovenox Advanced dementia Poor prognosis I have had multiple conversations in past with her son regarding life expectancy Dr De Jseus spoke with him on admission and I updated son again 02/10 Palliative care consult Fentanyl for pain- last needed last night DVT ppx: Lovenox Critical Care Critically Ill Patient ABRAHAM CIFUENTES MD February 11, 2023 12:05
[2023-02-11 15:10] VITALS: BP 139/68
[2023-02-11 19:58] VITALS: BP 139/68
[2023-02-11] MEDS: ALPRAZolam 0.25 MG (XANAX) TAB PO SCH (20:00)
[2023-02-11] MEDS: risperiDONE 0.5 MG (RisperDAL) TABLET PO SCH (20:00)
[2023-02-11] MEDS: AMITRIPTYLINE 25 MG (ELAVIL) TAB PO SCH (20:00)
[2023-02-11] MEDS: rOPINIRole 1 MG (REQUIP) TABLET PO SCH (20:00)
[2023-02-12 00:57] VITALS: BP 130/60
[2023-02-12 03:27] VITALS: BP 125/69
[2023-02-12] MEDS: ENOXAPARIN 60 MG/0.6 ML (LOVENOX) SYR SC SCH ×2 (04:17→14:54)
[2023-02-12 05:36] LABS: BASOPHILS % (AUTO) 0 % (0-10); EOSINOPHILS # (AUTO) 0.8 10^3/uL (0.0-0.3); EOSINOPHILS % (AUTO) 9 % (0-10); HEMATOCRIT 38 % (35-52); HEMOGLOBIN 11.4 g/dL (11.5-16.0); LYMPHOCYTES # (AUTO) 1.6 10^3/uL (1.0-4.0); LYMPHOCYTES % (AUTO) 18 % (12-44); MEAN CORPUSCULAR HEMOGLOBIN 27 pg (25-34); MEAN CORPUSCULAR HGB CONC 30 g/dL (32-36); MEAN CORPUSCULAR VOLUME 91 fL (80-99); MEAN PLATELET VOLUME 11.9 fL (9.0-12.2); MONOCYTES # (AUTO) 0.7 10^3/uL (0.0-1.0); MONOCYTES % (AUTO) 7 % (0-12); NEUTROPHILS % (AUTO) 66 % (42-75); PLATELET COUNT 278 10^3/uL (130-400); WHITE BLOOD COUNT 9.1 10^3/uL (4.3-11.0)
[2023-02-12 05:52] LABS: CALCIUM 9.1 MG/DL (8.5-10.1)
[2023-02-12 05:54] LABS: TOTAL PROTEIN 5.6 GM/DL (6.4-8.2)
[2023-02-12 05:55] LABS: BILIRUBIN,TOTAL 0.7 MG/DL (0.1-1.0)
[2023-02-12 05:57] LABS: CREATININE SERUM 0.6 MG/DL (0.60-1.30); PHOSPHORUS 2.4 MG/DL (2.3-4.7)
[2023-02-12] MEDS: POTASSIUM CL 10MEQ/50ML IVPB 50 ML IV SCH (06:08)
[2023-02-12] MEDS: MAGNESIUM 1 GM/100 ML IVPB 100 ML IV SCH (06:08)
[2023-02-12] MEDS: KCL 20 MEQ TAB (K-DUR) PO SCH (06:08)
[2023-02-12] MEDS: RT-ALBUTEROL/IPRATROPIUM 3 ML (DUONEB) VIAL INH SCH (06:51)
[2023-02-12] MEDS: FLUTICASONE/VILANTEROL 200 MCG 14'S (BREO) IH SCH (06:57)
[2023-02-12 07:35] VITALS: BP 146/74
[2023-02-12] MEDS: DOCUSATE SODIUM 100 MG (COLACE) CAP PO SCH (08:34)
[2023-02-12] MEDS: ASPIRIN 81 MG CHEW (CHILDREN'S ASA) PO SCH (08:34)
[2023-02-12] MEDS: HYDROcodone/APAP 5 MG/325 MG (LORTAB) TAB PO PRN (08:34)
--- NOTE | 2023-02-12 09:18 | Cardiology Progress Note ---
Subjective Date Seen by Provider: February 12, 2023 Time Seen by Provider: 08:20 Subjective/Events-last exam Patient sitting up in bed, NAD Objective-Cardiology Exam Last Set of Vital Signs Vital Signs 02/11/23 02/12/23 03:14 11:51 Temp 36.5 Pulse 83 Resp 18 B/P (MAP) 137/73 (94) Pulse Ox 97 O2 Delivery Nasal Cannula O2 Flow Rate 2.00 FiO2 30 I&O Intake and Output 02/12/23 00:00 Intake Total 340 ml Output Total 750 ml Balance -410 ml Intake Oral 340 ml Output Urine Total 750 ml General: Alert, Other (Not answering questions or following commands) HEENT: Atraumatic Neck: Supple Lungs: Normal Air Movement, Other (Bilateral rhonchi) Heart: Regular Rate, Normal S1, Normal S2, Other (Aortic stenosis murmur) Abdomen: Normal Bowel Sounds Skin: No Rashes Neuro: Other (Not following commands) Psych/Mental Status: Mood NL, Other (Not answering questions) Results Lab Laboratory Tests 02/12/23 05:04 A/P-Cardiology Admission Diagnosis Acute respiratory failure COPD Type II IN HTN Assessment/Plan Status post acute respiratory failure, likely multifactorial. COPD, pneumonia, acute on chronic diastolic congestive heart failure. Improved, currently sitting up in bed Maintained on nasal cannula Managed by medical team COPD/pneumonia, Improved, managed by medical team Type II non-STEMI, borderline elevated troponin. Likely secondary to severe systemic illness. Conservative management is recommended. Permanent atrial fibrillation, on oral anticoagulation. Heart rate is controlled. Continue to monitor Left bundle branch block, chronic. Pacemaker, no acute issues Moderate to severe aortic stenosis, repeat echocardiogram; however unlikely to be a reasonable candidate for any intervention. 2D echo was done in September 2022 with normal LV size, ejection fraction 65 to 70%, biatrial dilatation, mild mitral regurgitation, moderate aortic valve stenosis with mild aortic regurgitation, severe pulmonary hypertension with PA pressure 70 mmHg Acute on chronic diastolic congestive heart failure, IV Lasix. Poor prognosis. Supervisory-Addendum Brief Supervisory Addendum Participated in pt care: history, MDM, physical Personally performed: exam, history, MDM Care discussed with: VIOLA Results interpretation: Verified all documentation Notes: Patient was seen and evaluated with Gege, examination performed, management plan was discussed, agree with the current scribed note, I made few changes to the note using Italic font Patient was seen at bedside, laying down comfortably Maintained on nasal cannula Lethargic, unable to answer with full sentence At this point I will sign off, thank you for allowing me to participate in the management of Mrs. Salazar GEGE BULLARD February 12, 2023 09:18 LILIANE ALMANZA MD February 12, 2023 12:14
[2023-02-12 11:51] VITALS: BP 137/73
--- NOTE | 2023-02-12 13:08 | ST Dysphagia Evaluation ---
Speech Evaluation-General Medical Diagnosis Acute on Chronic Respiratory Failure Onset Date: February 05, 2023 Therapy Diagnosis Therapy Diagnosis: Mild Oropharyngeal Dysphagia Precautions Precautions: Fall, Pressure Ulcer, Aspiration Precautions/Isolations: Aspiration, Fall Prevention, Standard Precautions, Pressure Ulcer Referral Referring Physician: Dr. Williamson Reason for Referral: Evaluation/Treatment Medical History Pertinent Medical History: Atrial Fib, Arthritis, COPD, CVA, Dementia, GERD, HTN, Renal Insufficiency Reviewed History: Yes Speech PLF/Current-Dysphagia Prior Level of Function The patient is unable to provide the clinician with prior level of function information due to her current mentation status. Subjective The patient was reclined in bed, awake and alert, upon entrance to her room by the clinician. The patient has her lunch tray present and was agreeable to eating lunch at this time. The patient's head was elevated in bed for safe swallowing posture. Oral Motor Skills Dentition: Edentalous Denture Type: Full- Upper & Lower Current Food Consistancy: Dysphagia Soft (SB6), Thin Liquids Ability to Follow Directions: Poor Oral Expression Ability: Severe Impairment Voice Voice Phonatory-Based Quality: Weak Voice Pitch: Normal Voice Loudness: Moderately Soft/Quiet Face Facial Symmetry: Symmetrical Oral-Facial Assessment Oral-Facial Dentition: Normal Labial Seal Description: Weak Smile: Reduced ROM Volitional Dry Swallow: Yes Dysphagia Evaluation Consistencies Presented: Regular (Cubed chicken.), Thin Liquid (Via straw), Mechanical Soft (Cooked broccoli, diced pears.), Pureed Oral Phase: Reduced Oral Transit The patient was able to draw material from the teaspoon and straw accurately. Prolonged mastication of cubed grilled chicken as well as poorly coordinated bolus formation with delayed posterior transfer. Laryngeal elevation was present to palpation. Multiple swallows were present per bolus. The patient was provided straw drinks of thin liquid, mashed potatoes, diced pears, cubed chicken, and cooked broccoli. Overt s/s of suspected aspiration were not demonstrated with any consistency tested. Dietary Recommendations: Mechanical Soft (MM5) Liquid Recommendations: Thin Recommendations: - MM5 with thin liquids, as tolerated. - Fully upright and alert for P.O. intake. - Full, 1:1, feeding assistance. - Small bites and sips. - Crush medication and place in puree for administration. - Monitor for s/s of suspected aspiration with P.O. intake. If demonstrated, please contact speech pathology. - ST to monitor the patient for tolerance of her current diet consistency. The results and recommendations were provided to the patient, the patient's RN, and written on the in-room white board. Speech Short Term Goals Short Term Goals Short Term Goals 1. The patient and staff will display safe swallowing strategies with 80% accuracy and mild verbal cueing. Time Frame-STG: Five Days. Speech Skilled Nursing Goals Air Traffic Control Operator Goals 1. The patient will tolerate the least restrictive diet consistency without s/s of suspected aspiration. Time Frame: One Week. Speech-Plan Treatment Plan Speech Therapy Treatment Plan: Continue Plan of Care Treatment Duration: February 16, 2023 Frequency: 3 times per week Estimated Hrs Per Day: .25 hour per day Rehab Potential: Guarded Pt/Family Agrees to Plan: Yes Safety Risks/Education Teaching Recipient: Patient Teaching Methods: Discussion Response to Teaching: Reinforcement Needed Education Topics Provided: Results, Recommendations, Plan of Care, Safe Swallowing Strategies Time Speech Therapy Time In: 12:00 Speech Therapy Time Out: 12:30 DATE: February 12, 2023 Total Billed Time: 30 Billed Treatment Time 1, JOSEPH DOBBS [facility] February 12, 2023 13:08
[2023-02-12 16:02] VITALS: BP 137/73
--- NOTE | 2023-02-12 16:54 | Discharge Summary ---
Discharge Summary Hospital Course Problems/Dx: (1) Acute and chronic respiratory failure with hypoxia Status: Acute (2) Recurrent pneumonia Status: Acute (3) Advanced dementia Status: Chronic (4) Poor prognosis Status: Acute Hospital Course Date of Admission: February 05, 2023 at 10:20 Admission Diagnosis : Acute on chronic respiratory failure due to recurrent pneumonia Family Physician/Provider: Jason Johnson MD Date of Discharge: 02/12/23 Discharge Diagnosis: Acute on chronic respiratory failure due to recurrent pneumonia Hospital Course: Citlaly Salazar is an 82 year old female with advanced dementia who was admitted with acute on chronic respiratory failure with hypoxia due to recurrent pneumonia. She was treated with IV antibiotics and improved. Her oxygen requirement returned to her baseline. She has a long history of recurrent hospitalizations due to pneumonia and aspiration. She would benefit from hospice care. Her son was again encouraged to consider this option. She was discharged back to [facility] in stable condition. Labs and Pending Lab Test: Laboratory Tests 02/12/23 05:04: White Blood Count 9.1, Red Blood Count 4.18, Hemoglobin 11.4L, Hematocrit 38, Mean Corpuscular Volume 91, Mean Corpuscular Hemoglobin 27, Mean Corpuscular Hemoglobin Concent 30L, Red Cell Distribution Width 17.7H, Platelet Count 278, Mean Platelet Volume 11.9, Immature Granulocyte % (Auto) 0, Neutrophils (%) (Auto) 66, Lymphocytes (%) (Auto) 18, Monocytes (%) (Auto) 7, Eosinophils (%) (Auto) 9, Basophils (%) (Auto) 0, Neutrophils # (Auto) 6.0, Lymphocytes # (Auto) 1.6, Monocytes # (Auto) 0.7, Eosinophils # (Auto) 0.8H, Basophils # (Auto) 0.0, Immature Granulocyte # (Auto) 0.0, Sodium Level 141, Potassium Level 4.0, Chloride Level 106, Carbon Dioxide Level 27, Anion Gap 8, Blood Urea Nitrogen 12, Creatinine 0.60, Estimat Glomerular Filtration Rate 91, BUN/Creatinine Ratio 20, Glucose Level 95, Calcium Level 9.1, Corrected Calcium 9.9, Phosphorus Level 2.4, Magnesium Level 2.0, Total Bilirubin 0.7, Aspartate Amino Transf (AST/SGOT) 14, Alanine Aminotransferase (ALT/SGPT) 10, Alkaline Phosphatase 65, Total Protein 5.6L, Albumin 3.0L Microbiology 02/05/23 Blood Culture - Final, Complete No growth Home Meds Active Reported Risperidone 0.5 Mg Tablet 0.5 Mg PO HS Ferrous Sulfate 325 Mg (65 Mg Iron) Tablet 325 Mg PO BID Preservision Areds Softgel (Vit A/C/E/Zinc/Co) 4,296-226 Capsule 1 Each PO DAILY Ventolin Hfa (Albuterol Sulfate) 90 Mcg Hfa.aer.ad 2 Puff INH Q6H PRN Biofreeze (Menthol) 4 % Gel..ml. 1 Applic TP DAILY PRN MAY USE FOR PAIN DURING THERAPY SESSION Biofreeze (Menthol) 4 % Gel..ml. 1 Applic TP TID APPLY TO KNEES Metoprolol Succinate 50 Mg Tab.er.24h 50 Mg PO DAILY Aspirin 81 Mg Tab.chew 81 Mg PO DAILY Lisinopril 20 Mg Tablet 20 Mg PO DAILY HOLD FOR SBP LESS THAN 100 AND DBP LESS THAN 60 Docusate Sodium 100 Mg Capsule 100 Mg PO BID Milk of Magnesia (Magnesium Hydroxide) 2,400 Mg/10 Ml Oral.susp 30 Ml PO DAILY PRN Breo Ellipta 200-25 Mcg INH (Fluticasone/Vilanterol) 200 Mcg-25 Mcg/Dose Blst.w.dev 1 Puff INH DAILY RINSE AND SPIT MOUTH WITH WATER AFTER EACH USE Vitamin C (Ascorbate Calcium) 500 Mg Tablet 500 Mg PO BID Xanax (Alprazolam) 0.25 Mg Tablet 0.25 Mg PO HS Tramadol HCl 50 Mg Tablet 50 Mg PO Q12H PRN Neurontin (Gabapentin) 300 Mg Capsule 300 Mg PO TID Hydrocodone-Acetamin 5-325 mg (Hydrocodone/Acetaminophen) 5 Mg-325 Mg Tablet 1 Tab PO Q6H PRN Vitamin D3 (Cholecalciferol (Vitamin D3)) 25 Mcg (1000 Unit) Capsule 25 Mcg PO DAILY Furosemide 40 Mg Tablet 60 Mg PO DAILY TAKES 1 & (20MG) TABS Potassium Chloride 20 Meq Tab.er.prt 20 Meq PO DAILY Eliquis (Apixaban) 5 Mg Tablet 5 Mg PO Q12H Citalopram HBr (Citalopram Hydrobromide) 10 Mg Tablet 10 Mg PO HS Xalatan (Latanoprost) 2.5 Ml Drops 1 Drop OU HS Amitriptyline HCl 25 Mg Tablet 25 Mg PO HS Ropinirole HCl 1 Mg Tablet 1 Mg PO HS Assessment/Pt Instructions See instructions Discharge Planning: >30 minutes discharge planning Discharge Instructions Discharge Diet: Soft Diet Activity as Tolerated: Yes Discharge Physical Examination Vital Signs Vital Signs Date Time Temp Pulse Resp B/P (MAP) Pulse Ox O2 Delivery O2 Flow Rate FiO2 02/12/23 16:02 36.5 83 18 137/73 97 Nasal Cannula 2.00 81 General Appearance: No Apparent Distress, Chronically ill Respiratory: No Respiratory Distress, Decreased Breath Sounds Cardiovascular: Regular Rate, Rhythm, Systolic Murmur Gastrointestinal: Normal Bowel Sounds, Soft Extremity: Normal Inspection, No Pedal Edema Skin: Normal Color, Warm/Dry Neurologic/Psychiatric: Alert, Normal Mood/Affect, Disoriented Allergies: Coded Allergies: doxycycline (Unverified Allergy, Mild, 11/26/17) Copy Copies To 1: JASON JOHNSON MD Discharge Summary Date of Admission February 05, 2023 at 10:20 Date of Discharge February 12, 2023 at 16:15 Discharge Date: February 12, 2023 Discharge Time: 16:15 Admission Diagnosis Acute hypoxic respiratory failure Discharge Diagnosis (1) Acute on chronic respiratory failure with hypoxemia Status: Acute (2) Recurrent pneumonia Status: Acute (3) Advanced dementia Status: Chronic (4) Poor prognosis Status: Acute MARCO A CÁRDENAS MD February 12, 2023 16:43
== END 2023-02-12 16:15 | DRG 280 ==
LOC: EDUNIT# 08:09 → ER 08:10 → ICU 10:20 → 4TH 02-10 11:11
PROVIDERS: ADMIT Family Medicine; ATTEND Internal Medicine
PROC: 5A09457 Assistance with Respiratory Ventilation, 24-96 Consecutive Hours, Continuous Positive Airway Pressure (ICD-10-PCS; principal; 2023-02-06)
PROC: 5A0935A Assistance with Respiratory Ventilation, Less than 24 Consecutive Hours, High Flow/Velocity Cannula (ICD-10-PCS; 2023-02-07)
DX: I11.0 Hypertensive heart disease with heart failure (principal); I50.33 Acute on chronic diastolic (congestive) heart failure; I21.A1 Myocardial infarction type 2; J18.9 Pneumonia, unspecified organism; J96.21 Acute and chronic respiratory failure with hypoxia; J44.0 Chronic obstructive pulmonary disease with (acute) lower respiratory infection; J44.1 Chronic obstructive pulmonary disease with (acute) exacerbation; E87.0 Hyperosmolality and hypernatremia; I48.21 Permanent atrial fibrillation; F03.90 Unspecified dementia, unspecified severity, without behavioral disturbance, psychotic disturbance, mood disturbance, and anxiety; Z79.01 Long term (current) use of anticoagulants; D64.9 Anemia, unspecified; Z66 Do not resuscitate; Z20.822 Contact with and (suspected) exposure to COVID-19; G47.30 Sleep apnea, unspecified; E78.00 Pure hypercholesterolemia, unspecified; I27.20 Pulmonary hypertension, unspecified; I08.0 Rheumatic disorders of both mitral and aortic valves; I44.7 Left bundle-branch block, unspecified; G25.81 Restless legs syndrome; K21.9 Gastro-esophageal reflux disease without esophagitis; F41.9 Anxiety disorder, unspecified; H40.9 Unspecified glaucoma; H91.90 Unspecified hearing loss, unspecified ear; M19.90 Unspecified osteoarthritis, unspecified site; Z86.16 Personal history of COVID-19; Z95.0 Presence of cardiac pacemaker; Z99.81 Dependence on supplemental oxygen; Z79.82 Long term (current) use of aspirin; Z79.899 Other long term (current) drug therapy; Z88.1 Allergy status to other antibiotic agents
CPT/HCPCS: 36415; 36600; 51702; 71045; 80053; 82805; 82947; 83605; 83735; 83880; 84100; 84484; 85007; 85025; 85027; 85610; 85730; 87040; 87636; 93005; 94640; 94660; 94760

== ENCOUNTER 2023-03-18 02:23 | Inpatient (IN) | payer MEDICARE, MEDICAID ==
[~2023-03-18] VITALS: Ht 165.1 cm; Wt 56.6 kg
[~2023-03-18 02:23] MED LIST changes: +FERR325T18 PO; +POTA-330 PO; -POTA-51 PO
--- NOTE | 2023-03-18 02:43 | ED Respiratory ---
General Chief Complaint: Respiratory Problems Stated Complaint: SOB Nursing Triage Note: PT TO RM 7 [facility] FROM [facility]. [facility] RN ADVISES PT SPO2 HAS BEEN 50-60% SX APPROX 1999 LAST NIGHT. PT NOT ALERT DURING TRIAGE, SPO2 93% ON 4L OXY MASK UPON ARRIVAL TO ED. Source: EMS, half-way records History of Present Illness Date Seen by Provider: Mar 18, 2023 Time Seen by Provider: 02:30 Initial Comments Juan Pablo is an 83yo female who presents to the ER by ambulance from [facility] with reports of having low oxygen sine 8pm in the 50-60% range. [place] cordova was put on 4L oxygen and sent for poor responsiveness. She is a DNR/DNI. No further history from [place]. Patient arrives somnolent. Has a history of dementia. Also CHF. Frequent ER/hospital admissions for CHF and pneumonia. SHe is moaning, laying with eyes closed, Leaning left with a pillow between her knees. Quite hypertensive. Febrile (rectal temp > 101). Will moan and nod her head intermittently. When nurses went to place rachel catheter noted copious green discharge pouring from the vaginal opening. Timing/Duration: this evening Severity: moderate, severe Prior Episodes/Possible Cause: frequent episodes, chronic episodes Allergies and Home Medications Allergies Coded Allergies: doxycycline (Unverified Allergy, Mild, 11/26/17) Patient Home Medication List Home Medication List Reviewed: Yes Albuterol Sulfate (Ventolin Hfa) 90 Mcg Hfa.aer.ad, 2 PUFF INH Q6H PRN for SHORTNESS OF BREATH, (Reported) Entered as Reported by: ABHIJEET FELIPE on 11/29/22 1406 Alprazolam (Xanax) 0.25 Mg Tablet, 0.25 MG PO HS, (Reported) Entered as Reported by: ABHIJEET FELIPE on 06/01/22 1114 Amitriptyline HCl (Amitriptyline HCl) 25 Mg Tablet, 25 MG PO HS, (Reported) Entered as Reported by: SREEDHAR MCMANUS on 09/26/20 1610 Apixaban (Eliquis) 5 Mg Tablet, 5 MG PO Q12H, (Reported) Entered as Reported by: ABHIJEET FELIPE on 02/24/21 1308 Ascorbate Calcium (Vitamin C) 500 Mg Tablet, 500 MG PO BID, (Reported) Entered as Reported by: ABHIJEET FELIPE on 06/01/22 1114 Aspirin (Aspirin) 81 Mg Tab.chew, 81 MG PO DAILY, (Reported) Entered as Reported by: ABHIJEET FELIPE on 11/08/22 1134 Cholecalciferol (Vitamin D3) (Vitamin D3) 25 Mcg (1000 Unit) Capsule, 25 MCG PO DAILY, (Reported) Entered as Reported by: ABHIJEET FELIPE on 03/28/22 1424 Citalopram Hydrobromide (Citalopram HBr) 10 Mg Tablet, 10 MG PO HS, (Reported) Entered as Reported by: ABHIJEET FELIPE on 02/24/21 1308 Docusate Sodium (Docusate Sodium) 100 Mg Capsule, 100 MG PO BID, (Reported) Entered as Reported by: ABHIJEET FELIPE on 06/01/22 1114 Ferrous Sulfate (Ferrous Sulfate) 325 Mg (65 Mg Iron) Tablet, 325 MG PO BID, (Reported) Entered as Reported by: ABHIJEET FELIPE on 02/05/23 1259 Fluticasone/Vilanterol (Breo Ellipta 200-25 Mcg INH) 200 Mcg-25 Mcg/Dose Blst.w.dev, 1 PUFF INH DAILY, (Reported) Entered as Reported by: ABHIJEET FELIPE on 06/01/22 111 Furosemide (Furosemide) 40 Mg Tablet, 60 MG PO DAILY, (Reported) Entered as Reported by: ABHIJEET FELIPE on 03/28/22 1156 Gabapentin (Neurontin) 300 Mg Capsule, 300 MG PO TID, (Reported) Entered as Reported by: ABHIJEET FELIPE on 06/01/22 111 Hydrocodone/Acetaminophen (Hydrocodone-Acetamin 5-325 mg) 5 Mg-325 Mg Tablet, 1 TAB PO Q6H PRN for PAIN-MODERATE (5-7), (Reported) Entered as Reported by: ABIHJEET FELIPE on 06/01/22 1114 Latanoprost (Xalatan) 2.5 Ml Drops, 1 DROP OU HS, (Reported) Entered as Reported by: ABHIJEET FELIPE on 09/28/20 0910 Lisinopril (Lisinopril) 20 Mg Tablet, 20 MG PO DAILY, (Reported) Entered as Reported by: ABHIJEET FELIPE on 11/08/22 1134 Magnesium Hydroxide (Milk of Magnesia) 2,400 Mg/10 Ml Oral.susp, 30 ML PO DAILY PRN for CONSTIPATION-7TH LINE, (Reported) Entered as Reported by: ABHIJEET FELIPE on 06/01/22 1114 Menthol (Biofreeze) 4 % Gel..ml., 1 APPLIC TP TID, (Reported) Entered as Reported by: ABHIJEET FELIPE on 11/08/22 1134 Menthol (Biofreeze) 4 % Gel..ml., 1 APPLIC TP DAILY PRN for PAIN BREAKTROUGH, (Reported) Entered as Reported by: ABHIJEET FELIPE on 11/08/22 1134 Metoprolol Succinate (Metoprolol Succinate) 50 Mg Tab.er.24h, 50 MG PO DAILY, (Reported) Entered as Reported by: ABHIJEET FELIPE on 11/08/22 1134 Potassium Chloride (Potassium Chloride) 20 Meq Tab.er.prt, 20 MEQ PO DAILY, (Reported) Entered as Reported by: ABHIJEET FELIPE on 03/28/22 1156 Risperidone (Risperidone) 0.5 Mg Tablet, 0.5 MG PO HS, (Reported) Entered as Reported by: ABHIJEET FELIPE on 02/05/23 1259 Ropinirole HCl (Ropinirole HCl) 1 Mg Tablet, 1 MG PO HS, (Reported) Entered as Reported by: ESTEFANÍA FIORE on 11/26/17 0843 Tramadol HCl (Tramadol HCl) 50 Mg Tablet, 50 MG PO Q12H PRN for PAIN-MODERATE (5-7), (Reported) Entered as Reported by: ABHIJEET FELIPE on 06/01/22 1114 Vit A/C/E/Zinc/Co (Preservision Areds Softgel) 4,296-226 Capsule, 1 EACH PO DAILY, (Reported) Entered as Reported by: ABHIJEET FELIPE on 02/05/23 1259 Review of Systems Review of Systems Constitutional: see HPI unable to obtain from patient due to AMS Past Prbtuwo-Jbwtms-Lfnmtk Hx Patient Social History Tobacco Use?: No Use of E-Cig and/or Vaping dev: No Substance use?: No Alcohol Use?: No Immunizations Up To Date First/Initial COVID19 Vaccinat: 2020 Second COVID19 Vaccination Ronald: 2020 Third COVID19 Vaccination Date: 2020 Seasonal Allergies Seasonal Allergies: Yes Past Medical History Surgery/Hospitalization HX: COPD, PACEMAKER, resp failure, ANEMIA, CHF, PNA, RENAL FAILURE, HTN, AFIB, UTI Surgeries: Yes Section, Pacemaker, Tonsillectomy Respiratory: Yes Asthma, Sleep Apnea, COPD Currently Using CPAP: No Cardiac: Yes (CHF; LBBB) Atrial Fibrillation, High Cholesterol, Hypertension, Valvular Heart Disease Neurological: Yes (rest less leg syndrome) Dementia, Stroke Reproductive Disorders: No Sexually Transmitted Disease: No HIV/AIDS: No Genitourinary: Yes Renal Failure Gastrointestinal: Yes Gastroesophageal Reflux, Chronic Constipation Musculoskeletal: Yes (WHEELCHAIR BOUND) Arthritis, Chronic Back Pain Endocrine: No 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 0.6oz. [id number]; 20.00 BMI Method:Stated General Appearance: moderate distress, other (facial grimace; eyes closed, "mouth breathing") HEENT: PERRL/EOMI, other (very dry oral mucosa) Neck: other (JVD) Respiratory: lungs clear, other (tachypnea; clear; rapid shallow breaths) Cardiovascular: regular rate, rhythm, systolic murmur (holosystolic murmur heard throughout the precordium), other (2+ radial pulses) Gastrointestinal: soft, distended Genital/Rectal: other (greenish discharge from the vaginal opening) Extremities: normal inspection, no pedal edema Neurologic/Psychiatric: other (poor responsiveness) Skin: normal color, warm/dry Focused Exam Lactate Level 03/18/23 02:37: Lactic Acid Level 0.83 Time of Focused Exam: 03:30 Respiratory: Lungs Clear, No Accessory Muscle Use, Decreased Breath Sounds Cardiovascular: Regular Rate, Rhythm, Normal Peripheral Pulses Capillary Refill: Less Than 3 Seconds Peripheral Pulses: 2+ Radial Pulses (R), 2+ Radial Pulses (L) Skin: normal color, warm/dry Lactic Acid Level Laboratory Tests Test 03/18/23 02:37 Lactic Acid Level 0.83 MMOL/L (0.50-2.00) Within 3hrs of presentation: Admin ABX, Blood cultures prior to ABX's, Focus exam, Lactate level Progress/Results/Core Measures Suspected Sepsis Recent Fever Within 48 Hours: Yes Infection Criteria Present: Suspected New Infection New/Unexplained Altered Menta: No Within 3hrs of presentation: Admin fluids, Admin ABX, Blood cultures prior to ABX's, Focus exam, Lactate level SIRS Temperature: Pulse: 78 Respiratory Rate: 28 Laboratory Tests 03/18/23 02:37: White Blood Count 9.2 Blood Pressure 188 /112 Mean: 137 03/18/23 02:37: Lactic Acid Level 0.83 Laboratory Tests 03/18/23 02:37: Creatinine 0.65, INR Comment 1.3, Platelet Count 341, Total Bilirubin 1.1H Results/Orders Lab Results Laboratory Tests Test 03/18/23 02:37 03/18/23 02:50 03/18/23 02:59 Range/Units White Blood Count 9.2 4.3-11.0 10^3/uL Red Blood Count 3.87 3.80-5.11 10^6/uL Hemoglobin 11.2 L 11.5-16.0 g/dL Hematocrit 37 35-52 % Mean Corpuscular Volume 95 80-99 fL Mean Corpuscular Hemoglobin 29 25-34 pg Mean Corpuscular Hemoglobin Concent 31 L 32-36 g/dL Red Cell Distribution Width 18.3 H 10.0-14.5 % Platelet Count 341 130-400 10^3/uL Mean Platelet Volume 10.8 9.0-12.2 fL Immature Granulocyte % (Auto) 0 % Neutrophils (%) (Auto) 85 H 42-75 % Lymphocytes (%) (Auto) 9 L 12-44 % Monocytes (%) (Auto) 5 0-12 % Eosinophils (%) (Auto) 0 0-10 % Basophils (%) (Auto) 0 0-10 % Neutrophils # (Auto) 7.8 1.8-7.8 10^3/uL Lymphocytes # (Auto) 0.8 L 1.0-4.0 10^3/uL Monocytes # (Auto) 0.4 0.0-1.0 10^3/uL Eosinophils # (Auto) 0.0 0.0-0.3 10^3/uL Basophils # (Auto) 0.0 0.0-0.1 10^3/uL Immature Granulocyte # (Auto) 0.0 0.0-0.1 10^3/uL Prothrombin Time 16.7 H 12.2-14.7 SEC INR Comment 1.3 0.8-1.4 Activated Partial Thromboplast Time 32 24-35 SEC Blood Gas Puncture Site LR Blood Gas Patient Temperature 36 Arterial Blood pH 7.40 7.37-7.43 Arterial Blood Partial Pressure CO2 60 H 35-45 MMHG Arterial Blood Partial Pressure O2 86 79-93 MMHG Arterial Blood HCO3 37 H 23-27 MMOL/L Arterial Blood Total CO2 39.0 H 21.0-31.0 MMOL/L Arterial Blood Oxygen Saturation 97 94-100 % Arterial Blood Base Excess 11.7 H -2.5-2.5 MMOL/L Goran Test YES-POS Blood Gas Ventilator Setting NO Blood Gas Inspired Oxygen 4L Sodium Level 146 H 135-145 MMOL/L Potassium Level 3.2 L 3.6-5.0 MMOL/L Chloride Level 103 98-107 MMOL/L Carbon Dioxide Level 34 H 21-32 MMOL/L Anion Gap 9 5-14 MMOL/L Blood Urea Nitrogen 14 7-18 MG/DL Creatinine 0.65 0.60-1.30 MG/DL Estimat Glomerular Filtration Rate 88 BUN/Creatinine Ratio 22 Glucose Level 125 H 70-105 MG/DL Lactic Acid Level 0.83 0.50-2.00 MMOL/L Calcium Level 9.7 8.5-10.1 MG/DL Corrected Calcium 9.9 8.5-10.1 MG/DL Total Bilirubin 1.1 H 0.1-1.0 MG/DL Aspartate Amino Transf (AST/SGOT) 12 5-34 U/L Alanine Aminotransferase (ALT/SGPT) 6 0-55 U/L Alkaline Phosphatase 80 40-136 U/L B-Type Natriuretic Peptide 3756.4 H <100.0 PG/ML Total Protein 6.9 6.4-8.2 GM/DL Albumin 3.7 3.2-4.5 GM/DL Urine Color YELLOW Urine Clarity CLOUDY Urine pH 6.5 5-9 Urine Specific [place] 1.025 H 1.016-1.022 Urine Protein 3+ H NEGATIVE Urine Glucose (UA) NEGATIVE NEGATIVE Urine Ketones NEGATIVE NEGATIVE Urine Nitrite NEGATIVE NEGATIVE Urine Bilirubin NEGATIVE NEGATIVE Urine Urobilinogen 1.0 < = 1.0 MG/DL Urine Leukocyte Esterase 2+ H NEGATIVE Urine RBC (Auto) 3+ H NEGATIVE Urine RBC 5-10 H /HPF Urine WBC >100 H /HPF Urine Crystals NONE /LPF Urine Bacteria NEGATIVE /HPF Urine Casts NONE /LPF Urine Mucus NEGATIVE /LPF Urine Culture Indicated CULTURE PENDING My Orders Orders - DIMAS HERNANDEZ MD Arterial Blood Gas (03/18/23 02:44) Cbc With Automated Diff (03/18/23 02:43) Comprehensive Metabolic Panel (03/18/23 02:43) Blood Culture (03/18/23 02:43) Sputum Culture (03/18/23 02:43) Urinalysis (03/18/23 02:43) Urine Culture (03/18/23 02:43) Protime With Inr (03/18/23 02:43) Partial Thromboplastin Time (03/18/23 02:43) Chest 1 View, Ap/Pa Only (03/18/23 02:43) Ed Iv/Invasive Line Start (03/18/23 02:43) Ed Iv/Invasive Line Start (03/18/23 02:43) Vital Signs Adult Sepsis Patie Q15M (03/18/23 02:43) O2 (03/18/23 02:43) Remove Rings In Anticipation O (03/18/23 02:43) Lactic Acid Analyzer (03/18/23 02:43) Catheter(Urinary) Insert & Ass 03,15 (03/18/23 02:43) Lidocaine 2% (Urojet) (Xylocaine Urojet) (03/18/23 02:45) Bnp Aries (03/18/23 02:43) Acetaminophen Suppository (Tylenol Suppo (03/18/23 03:00) Ns Iv 1000 Ml (Sodium Chloride 0.9%) (03/18/23 02:47) Neisseria Gonorrhea Swab (03/18/23 03:03) Chlamydia Trachomatis Swab (03/18/23 03:03) Cefepime Injection (Maxipime Injection) (03/18/23 03:45) Furosemide Injection (Lasix Injection) (03/18/23 03:45) Code/Resuscitation (03/18/23 03:54) Hydralazine Injection (Apresoline Inject (03/18/23 04:15) Medications Given in ED Current Medications Medications Dose Ordered Sig/Jimi Route Start Time Stop Time Status Last Admin Dose Admin Acetaminophen 650 mg ONCE ONCE [place] 03/18/23 03:00 03/18/23 03:01 DC 03/18/23 03:05 650 MG Cefepime HCl 1000 mg/Sodium Chloride 50 ml @ 100 mls/hr ONCE ONCE IV 03/18/23 03:45 03/18/23 04:14 DC 03/18/23 03:54 100 MLS/HR Furosemide 60 mg ONCE ONCE IVP 03/18/23 03:45 03/18/23 03:46 DC 03/18/23 03:54 60 MG Vital Signs/I&O 03/18/23 03/18/23 02:26 03:05 Temp 36.0 38.8 Pulse 78 Resp 28 B/P (MAP) 188/112 (137) Pulse Ox 93 O2 Delivery OxyMask O2 Flow Rate 4.00 Capillary Refill : Blood Pressure Mean: 137 Progress Note : Time: 04:16 Progress Note Patient seen and evaluated by me. Evaluation today includes physical exam, "septic work-up" to include CBC, Chem-12, lactic acid, blood cultures, urinalysis, coags, BNP, ABG, single view chest x-ray, BNP. Pertinent physical exam findings elderly ill-appearing female, currently nonverbal, moaning. Significantly dry oral mucosa. No JVD noted. Mild respiratory distress with tachypnea. Heart is regular. Abdomen soft. No significant skin wounds. Copious green vaginal discharge. Hypertensive 190s over 112, SPO2 94% on 4 L per simple facemask. Differential diagnosis based on history and physical exam, sepsis due to urinary tract infection or pneumonia, CHF Labs, imaging independently reviewed and interpreted by me. CBC shows normal white count at 9.2 with 85% segmented neutrophils. Normal hemoglobin and hematocrit. Chem-12 pertinent for slightly low potassium at 3.2 otherwise withi n normal limits, normal renal function. Lactic acid 0.83. Urinalysis shows greater than 100 white blood cells per high-powered field, 3+ blood. Nitrite negative. ABG on 4 L pH is 7.4, PCO2 of 60 PO2 of 86 bicarb of 37. Chest x-ray shows cardiomegaly with increased pulmonary vascular congestion. BNP 3756. Telemetry shows paced rhythm at 60 bpm. Patient has been maintained on 4 L. She got around 700 cc of normal saline prior to evaluation of the chest x-ray and labs. She was then given 60 mg of Lasix and the fluids were slowed down to TKO rate. For her urinary tract infection patient was given cefepime 1 g here in the emergency department. Case was discussed with Dr. Calix on for the hospitalist service. We will place the patient in the ICU until discussion with caregiver/DPOA. Likely she at this point needs hospice as she has monthly visits with hospitalizations. Poor overall quality of life. She is not clinically "septic" but does have UTI and exacerbation of heart failure. Bridge orders have been written; antibiotics, daily Lasix, Lovenox, K replacement IV as the patient is currently not safe to take p.o. medications. Hydralazine 10 mg was given for her hypertension of 197/110. Diagnostic Imaging Diagonstic Imaging: Xray Plain Films/CT/US/NM/MRI: chest Comments Chest x-ray independently reviewed and evaluated by cassi cardiomegaly, bilateral increased pulmonary vascular congestion/CHF Departure Communication (Admissions) Time/Spoke to Admitting Phy: 03:[address] Calix; admit to ICU, IP Impression Primary Impression: CHF (congestive heart failure) Qualified Codes: I50.9 - Heart failure, unspecified Additional Impression: Urinary tract infection Qualified Codes: N30.01 - Acute cystitis with hematuria Disposition: ADMITTED INPATIENT Condition: Critical Admissions Decision to Admit Reason: Admit from ER (General) Decision to Admit/Date: Mar 18, 2023 Time/Decision to Admit Time: 03:40 Departure-Patient Inst. Referrals: JUSTIN JOHNSON MD (PCP/Family) Primary Care Physician DIMAS HERNANDEZ MD Mar 18, 2023 02:43
[2023-03-18] MEDS ORDERED: LIDOCAINE UROJET 2% GEL 10 ML PKG TOP ONE (02:45)
[2023-03-18] MEDS ORDERED: NS IV 1000 ML 1,000 ML IV STA (02:47)
[2023-03-18 02:52] LABS: ABG BASE EXCESS 11.7 MMOL/L (-2.5-2.5); ABG OXYGEN SATURATION 97 % (94-100); ABG PCO2 60 MMHG (35-45); ABG PO2 86 MMHG (79-93)
[2023-03-18 02:53] LABS: ALLENS TEST YES-POS; INSPIRED O2 4L; PATIENT TEMP 36; VENTILATOR NO
[2023-03-18 02:54] LABS: BASOPHILS % (AUTO) 0 % (0-10); EOSINOPHILS % (AUTO) 0 % (0-10); HEMATOCRIT 37 % (35-52); HEMOGLOBIN 11.2 g/dL (11.5-16.0); LYMPHOCYTES # (AUTO) 0.8 10^3/uL (1.0-4.0); LYMPHOCYTES % (AUTO) 9 % (12-44); MEAN CORPUSCULAR HEMOGLOBIN 29 pg (25-34); MEAN CORPUSCULAR HGB CONC 31 g/dL (32-36); MEAN CORPUSCULAR VOLUME 95 fL (80-99); MEAN PLATELET VOLUME 10.8 fL (9.0-12.2); MONOCYTES # (AUTO) 0.4 10^3/uL (0.0-1.0); MONOCYTES % (AUTO) 5 % (0-12); NEUTROPHILS # (AUTO) 7.8 10^3/uL (1.8-7.8); NEUTROPHILS % (AUTO) 85 % (42-75); PLATELET COUNT 341 10^3/uL (130-400); WHITE BLOOD COUNT 9.2 10^3/uL (4.3-11.0)
[2023-03-18 03:00] LABS: BILIRUBIN,URINE NEGATIVE (NEGATIVE); CLARITY,URINE CLOUDY; COLOR,URINE YELLOW; GLUCOSE, URINE (UA) NEGATIVE (NEGATIVE); KETONES,URINE NEGATIVE (NEGATIVE); LEUKOCYTE ESTERASE ,URINE 2+ (NEGATIVE); NITRITE,URINE NEGATIVE (NEGATIVE); PH,URINE 6.5 (5-9); PROTEIN,URINE 3+ (NEGATIVE)
[2023-03-18] MEDS ORDERED: ACETAMINOPHEN 650 MG SUPP (TYLENOL) PR ONE (03:00)
[2023-03-18 03:02] LABS: ALBUMIN 3.7 GM/DL (3.2-4.5)
[2023-03-18 03:03] LABS: POTASSIUM 3.2 MMOL/L (3.6-5.0)
[2023-03-18 03:04] LABS: CALCIUM 9.7 MG/DL (8.5-10.1); INR 1.3 (0.8-1.4); PROTHROMBIN TIME PATIENT 16.7 SEC (12.2-14.7)
[2023-03-18 03:05] LABS: TOTAL PROTEIN 6.9 GM/DL (6.4-8.2)
[2023-03-18 03:07] LABS: BILIRUBIN,TOTAL 1.1 MG/DL (0.1-1.0)
[2023-03-18 03:09] LABS: CREATININE SERUM 0.65 MG/DL (0.60-1.30)
[2023-03-18 03:15] LABS: BACTERIA,URINE NEGATIVE /HPF; WBC,URINE >100 /HPF
[2023-03-18] MEDS ORDERED: FUROSEMIDE 40 MG/4 ML INJ (LASIX) IVP ONE ×3 (03:45→20:30)
[2023-03-18] MEDS ORDERED: CEFEPIME INJECTION 1,000 MG in NS (IVPB) 50 ML IV ONE (03:45)
[2023-03-18] MEDS ORDERED: CEFEPIME 1 GM/10 ML (MAXIPIME) VIAL ONE (03:46)
[2023-03-18] MEDS ORDERED: hydrALAZINE (APESOLINE) 20 MG/ML VIAL IV ONE (04:15)
[2023-03-18] MEDS ORDERED: NS IV 500 ML 500 ML IV PRN (05:15)
--- NOTE | 2023-03-18 05:29 | Tele-ICU Consult ---
History of Present Illness History of Present Illness Date Seen by Provider: Mar 18, 2023 Time Seen by Provider: 05:29 Date of Admission 03/18/2023 History of Present Illness (Tele-ICU Physician , Progress Note ) Service provided via interactive audio and video tele[employer] E-CARE system to a patient admitted to ICU bed in [facility]. Patient is seen today due to persistent need of ICU care Available chart/ vitals / labs / Images reviewed Video assessment done using teleICU camera, rest of exam as per RN She is a 83-year-old female with past medical history of dementia, CHF recurrent pneumonias and UTI is brought from a chcf via EMS to the ED because of for low oxygen saturation and a decrease in mental status. She is requiring 4 L of nasal cannula to get saturation over 91%. Her blood pressure has been high. Chest x-ray suggestive of congestive heart failure and urine analysis suggestive of urinary tract infection. She is admitted to ICU for close monitoring and management. She is a DNR/DNI. Impression 1. Recurrent urinary tract infection 2. Decreased mental status due to sepsis 3. Acute and chronic hypoxic respiratory failure secondary to CHF 4. Acute on chronic systolic congestive heart failure 5. History of atrial fibrillation chronic 6. Metabolic encephalopathy. Recommendations 1. Oxygenation with oxygen mask 2. Broad-spectrum antibiotics to cover gram-negative organisms 3. IV Lasix 4. Anticoagulation with Lovenox due to chronic atrial fibrillation 5. Cardiology consultation. Coordination of care with primary care physician and other bedside consultants. I am remotely monitoring this patient from Tele icu station in [place]. I am unable to do the bedside exam, and history/physical and pertinent information is taken from other notes in the computer and bedside staff. Certain portions of this document may have been dictated utilizing voice recognition technology such as [employer]. Inherent to this technology, typographical and grammatical errors may exist. As much as I am diligent to identify and correct to these mistakes, some errors may remain in the document. Critical care time devoted to this patient today is approximately is--35 minutes Allergies and Home Medications Allergies Coded Allergies: doxycycline (Unverified Allergy, Mild, 11/26/17) Home Medications Albuterol Sulfate 90 Mcg Hfa.aer.ad, 2 PUFF INH Q6H PRN for SHORTNESS OF BREATH, (Reported) Alprazolam 0.25 Mg Tablet, 0.25 MG PO HS, (Reported) Amitriptyline HCl 25 Mg Tablet, 25 MG PO HS, (Reported) Apixaban 5 Mg Tablet, 5 MG PO Q12H, (Reported) Ascorbate Calcium 500 Mg Tablet, 500 MG PO BID, (Reported) Aspirin 81 Mg Tab.chew, 81 MG PO DAILY, (Reported) Cholecalciferol (Vitamin D3) 25 Mcg (1000 Unit) Capsule, 25 MCG PO DAILY, (Reported) Citalopram Hydrobromide 10 Mg Tablet, 10 MG PO HS, (Reported) Docusate Sodium 100 Mg Capsule, 100 MG PO BID, (Reported) Ferrous Sulfate 325 Mg (65 Mg Iron) Tablet, 325 MG PO BID, (Reported) Fluticasone/Vilanterol 200 Mcg-25 Mcg/Dose Blst.w.dev, 1 PUFF INH DAILY, (Reported) RINSE AND SPIT MOUTH WITH WATER AFTER EACH USE Furosemide 40 Mg Tablet, 60 MG PO DAILY, (Reported) TAKES 1 & (20MG) TABS Gabapentin 300 Mg Capsule, 300 MG PO TID, (Reported) Hydrocodone/Acetaminophen 5 Mg-325 Mg Tablet, 1 TAB PO Q6H PRN for PAIN-MODERATE (5-7), (Reported) Latanoprost 2.5 Ml Drops, 1 DROP OU HS, (Reported) Lisinopril 20 Mg Tablet, 20 MG PO DAILY, (Reported) HOLD FOR SBP LESS THAN 100 AND DBP LESS THAN 60 Magnesium Hydroxide 2,400 Mg/10 Ml Oral.susp, 30 ML PO DAILY PRN for CONSTIPATION-7TH LINE, (Reported) Menthol 4 % Gel..ml., 1 APPLIC TP TID, (Reported) APPLY TO KNEES Menthol 4 % Gel..ml., 1 APPLIC TP DAILY PRN for PAIN BREAKTROUGH, (Reported) MAY USE FOR PAIN DURING THERAPY SESSION Metoprolol Succinate 50 Mg Tab.er.24h, 50 MG PO DAILY, (Reported) Potassium Chloride 20 Meq Tab.er.prt, 20 MEQ PO DAILY, (Reported) Risperidone 0.5 Mg Tablet, 0.5 MG PO HS, (Reported) Ropinirole HCl 1 Mg Tablet, 1 MG PO HS, (Reported) Tramadol HCl 50 Mg Tablet, 50 MG PO Q12H PRN for PAIN-MODERATE (5-7), (Reported) Vit A/C/E/Zinc/Co 4,296-226 Capsule, 1 EACH PO DAILY, (Reported) Past Medical/Social/Family Hx Patient Social History Tobacco Use?: No Use of E-Cig and/or Vaping dev: No Substance use?: No Alcohol Use?: No Pt stated abuse/neglect: Unable to obtain Immunizations Up To Date First/Initial COVID19 Vaccinat: 2020 Second COVID19 Vaccination Ronald: 2020 Tetanus Booster (TDap): Unknown Hepatitis A: Yes Hepatitis B: Yes TB Skin Test: None Date of Pneumonia Vaccine: Oct 30, 2016 Current Status Advance Directives: Yes Advance Directive Location: Copy placed in chart Communicates: Unable To Communicate Primary Language: Citizen Of [place] Preferred Spoken Language: Citizen Of [place] Review of Systems Constitutional: see HPI, weakness, other (decreased responsiveness, low oxygenation) Focused Exam Lactate Level 03/18/23 02:37: Lactic Acid Level 0.83 Height, Weight, BMI Height: 5'4.00" Weight: 182lbs. 0.6oz. 77.795641is; 22.15 BMI Method:Stated Time of Focused Exam: 03:30 Lactic Acid Level Laboratory Tests Test 03/18/23 02:37 Lactic Acid Level 0.83 MMOL/L (0.50-2.00) Exam Exam Patient unable to give consent but participated in this virtual visit which was conducted using real time audio/video Vital Signs Date Time Temp Pulse Resp B/P (MAP) Pulse Ox O2 Delivery O2 Flow Rate FiO2 03/18/23 05:15 75 188/85 (119) 94 OxyMask 4.00 03/18/23 05:14 95 OxyMask 4.00 03/18/23 05:00 71 167/96 (119) 94 OxyMask 4.00 03/18/23 04:55 69 26 197/109 93 OxyMask 4.00 03/18/23 03:05 38.8 03/18/23 02:26 36.0 78 28 188/112 (137) 93 OxyMask 4.00 I & O 03/18/23 06:59 Intake Total 50 ml Balance 50 ml Height & Weight Height: 5'4.00" Weight: 182lbs. 0.6oz. 77.682968vf; 22.15 BMI Method:Stated General Appearance: Chronically ill, Moderate Distress, Thin Respiratory: Lungs Clear, No Accessory Muscle Use, Decreased Breath Sounds Cardiovascular: Regular Rate, Rhythm, Normal Peripheral Pulses Capillary Refill: Less Than 3 Seconds Peripheral Pulses: 2+ Radial Pulses (R), 2+ Radial Pulses (L) Gastrointestinal: soft, distended Results Lab Laboratory Tests 03/18/23 02:37 Assessment/Plan Assessment/Plan as above Critical Care: Critically Ill Patient Time spent with patient (mins): 35 ROBERTH RODRÍGUEZ MD Mar 18, 2023 05:29
[2023-03-18] MEDS ORDERED: hydrALAZINE (APESOLINE) 20 MG/ML VIAL IV PRN (05:30)
[2023-03-18] MEDS ORDERED: ACETAMINOPHEN 650 MG SUPP (TYLENOL) PR PRN (05:30)
[2023-03-18] MEDS: ENOXAPARIN 60 MG/0.6 ML (LOVENOX) SYR SC SCH ×2 (05:40→18:25)
[2023-03-18] MEDS: NS IV 1000 ML 1,000 ML IV SCH ×2 (05:40→22:22)
[2023-03-18] MEDS: POTASSIUM CL 10 MEQ/50 ML IVPB (PRE-MIX) IV SCH ×2 (05:40→05:45)
[2023-03-18 05:52] VITALS: BP 179/84
[2023-03-18] MEDS: MAGNESIUM 1 GM/100 ML IVPB 100 ML IV SCH (06:29)
[2023-03-18] MEDS: KCL 20 MEQ TAB (K-DUR) PO SCH (06:29)
[2023-03-18] MEDS: POTASSIUM CL 10MEQ/50ML IVPB 50 ML IV SCH ×5 (06:30→10:57)
[2023-03-18] MEDS: RT-ALBUTEROL/IPRATROPIUM 3 ML (DUONEB) VIAL INH SCH ×3 (07:33→20:43)
--- NOTE | 2023-03-18 07:37 | Diagnostic Imaging Report ---
INDICATION: Dyspnea with hypoxia. COMPARISON: 02/09/2023. DISCUSSION: Single portable upright view of the chest was obtained. Heart borders appear enlarged and are mostly obscured. Right-sided pacemaker is stable. Moderate to large left pleural effusion is increased. Severe infiltrates are present bilaterally, favored edema over pneumonia. No pneumothorax or osseous abnormality. IMPRESSION: Cardiomegaly with enlarging left pleural effusion and new infiltrates, concerning for severe pulmonary edema. Dictated by: Dictated on workstation # [id number]
--- NOTE | 2023-03-18 09:00 | Tele-ICU Progress Note ---
Progress Note video rounds completed 83 y/o female admitted with sepsis, UTI and AMS PE: currently looks comfortable Pulse: 80 O2 sat: 97% BP: 146/83 overall hemodynamically stable Impression 1. Recurrent urinary tract infection 2. Decreased mental status due to sepsis 3. Acute and chronic hypoxic respiratory failure secondary to CHF 4. Acute on chronic systolic congestive heart failure 5. History of atrial fibrillation chronic 6. Metabolic encephalopathy. Recommendations 1. Oxygenation with oxygen mask 2. Broad-spectrum antibiotics to cover gram-negative organisms 3. IV Lasix 4. Anticoagulation with Lovenox due to chronic atrial fibrillation 5. Cardiology consultation. Coordination of care with primary care physician and other bedside consultants. I am remotely monitoring this patient from Tele icu station in [place]. I am unable to do the bedside exam, and history/physical and pertinent information is taken from other notes in the computer and bedside staff. Time spent: 20 minutes in review Focused Exam Lactate Level 03/18/23 02:37: Lactic Acid Level 0.83 Height, Weight, BMI Height: 5'4.00" Weight: 182lbs. 0.6oz. 77.332003pc; 22.15 BMI Method:Stated Time of Focused Exam: 03:30 Labs Laboratory Tests 03/18/23 02:37 Results Results/Procedures Labs Laboratory Tests 03/18/23 02:37 Patient resulted labs reviewed. Results Labs Labs Laboratory Tests 03/18/23 02:37: White Blood Count 9.2, Red Blood Count 3.87, Hemoglobin 11.2L, Hematocrit 37, Mean Corpuscular Volume 95, Mean Corpuscular Hemoglobin 29, Mean Corpuscular Hemoglobin Concent 31L, Red Cell Distribution Width 18.3H, Platelet Count 341, Mean Platelet Volume 10.8, Immature Granulocyte % (Auto) 0, Neutrophils (%) (Auto) 85H, Lymphocytes (%) (Auto) 9L, Monocytes (%) (Auto) 5, Eosinophils (%) (Auto) 0, Basophils (%) (Auto) 0, Neutrophils # (Auto) 7.8, Lymphocytes # (Auto) 0.8L, Monocytes # (Auto) 0.4, Eosinophils # (Auto) 0.0, Basophils # (Auto) 0.0, Immature Granulocyte # (Auto) 0.0, Prothrombin Time 16.7H, INR Comment 1.3, Activated Partial Thromboplast Time 32, Blood Gas Puncture Site LR, Blood Gas Patient Temperature 36, Arterial Blood pH 7.40, Arterial Blood Partial Pressure CO2 60H, Arterial Blood Partial Pressure O2 86, Arterial Blood HCO3 37H, Arterial Blood Total CO2 39.0H, Arterial Blood Oxygen Saturation 97, Arterial Blood Base Excess 11.7H, Goran Test YES-POS, Blood Gas Ventilator Setting NO, Blood Gas Inspired Oxygen 4L, Sodium Level 146H, Potassium Level 3.2L, Chloride Level 103, Carbon Dioxide Level 34H, Anion Gap 9, Blood Urea Nitrogen 14, Creatinine 0.65, Estimat Glomerular Filtration Rate 88, BUN/Creatinine Ratio 22, Glucose Level 125H, Lactic Acid Level 0.83, Calcium Level 9.7, Corrected Calcium 9.9, Total Bilirubin 1.1H, Aspartate Amino Transf (AST/SGOT) 12, Alanine Azevedo otransferase (ALT/SGPT) 6, Alkaline Phosphatase 80, B-Type Natriuretic Peptide 3756.4H, Total Protein 6.9, Albumin 3.7 03/18/23 02:50: Urine Color YELLOW, Urine Clarity CLOUDY, Urine pH 6.5, Urine Specific [place] 1.025H, Urine Protein 3+H, Urine Glucose (UA) NEGATIVE, Urine Ketones NEGATIVE, Urine Nitrite NEGATIVE, Urine Bilirubin NEGATIVE, Urine Urobilinogen 1.0, Urine Leukocyte Esterase 2+H, Urine RBC (Auto) 3+H, Urine RBC 5-10H, Urine WBC >100H, Urine Crystals NONE, Urine Bacteria NEGATIVE, Urine Casts NONE, Urine Mucus NE GATIVE, Urine Culture Indicated CULTURE PENDING 03/18/23 02:59: PAYTON GRANT MD Mar 18, 2023 09:00
[2023-03-18] MEDS: CEFEPIME 1,000 MG/NS 50 ML IVPB IV SCH ×4 (12:27→21:29)
--- NOTE | 2023-03-18 18:30 | History & Physical-Hospitalist ---
History of Present Illness HPI/Chief Complaint Citlaly Salazar is an 83 year old female with advanced dementia and recurrent hospitalizations who presented from her ch[facility] with hypoxia. She is a poor historian. She was found to have low oxygen saturations at [facility]. She is unable to provide any information due to her clinical status. She is sleeping. She will open her eyes but does not speak. Source: RN/MD Exam Limitations: clinical condition Date Seen 03/18/23 Time Seen by a Provider: 10:05 Attending Physician Jason Boudreaux MD PCP Admitting Physician: Marco A Cárdenas MD Attending Physician: Marco A Cárdenas MD Referring Physician Date of Admission Mar 18, 2023 at 04:42 Home Medications & Allergies Home Medications Reviewed patient Home Medication Reconciliation performed by pharmacy medication reconciliations clinical technician and/or nursing. Patients Allergies have been reviewed. Allergies Allergies Coded Allergies doxycycline (Unverified Allergy, Mild, 11/26/17) Past Cevddot-Vwolax-Ebfkit Hx Patient Social History Tobacco Use?: No Use of E-Cig and/or Vaping dev: No Substance use?: No Alcohol Use?: No Pt feels they are or have been: Unable to obtain Immunizations Up To Date Date of Influenza Vaccine: Oct 08, 2022 First/Initial COVID19 Vaccinat: 2020 Second COVID19 Vaccination Ronald: 2020 Tetanus Booster (TDap): Unknown Hepatitis A: Yes Hepatitis B: Yes Date of Pneumonia Vaccine: Oct 30, 2016 Seasonal Allergies Seasonal Allergies: Yes Current Status Advance Directives: Yes Advance Directive Location: Copy placed in chart Communicates: Unable To Communicate Primary Language: [place] Preferred Spoken Language: [place] Past Medical History Surgeries: Section, Pacemaker, Tonsillectomy Asthma, Sleep Apnea, COPD Currently Using CPAP: No Atrial Fibrillation, High Cholesterol, Hypertension, Valvular Heart Disease Dementia, Stroke Sexually Transmitted Disease: No HIV/AIDS: No Renal Failure Gastroesophageal Reflux, Chronic Constipation Arthritis, Chronic Back Pain Glaucoma Loss of Vision: Bilateral Hearing Impairment: Hard of Hearing Anxiety, Depression Blood Disorders: No Adverse Reaction/Blood Tranf: No (N/A) Family Medical History Heart Disease, COPD, Renal Disease, Other Conditions/Hx Review of Systems Constitutional: see HPI Physical Exam Physical Exam Vital Signs Vital Signs - First Documented 03/18/23 03/18/23 02:26 07:36 Temp 36.0 Pulse 78 Resp 28 B/P (MAP) 188/112 (137) Pulse Ox 93 O2 Delivery OxyMask O2 Flow Rate 4.00 FiO2 96 Capillary Refill : Less Than 3 Seconds Height, Weight, BMI Height: 5'4.00" Weight: 182lbs. 0.6oz. 77.960153ep; 22.15 BMI Method:Stated General Appearance: Chronically ill, Mild Distress (tachypnea) Neck: Normal Inspection, Supple Respiratory: Crackles, Decreased Breath Sounds, Respiratory Distress (tachypnea) Cardiovascular: Regular Rate, Rhythm, Systolic Murmur Gastrointestinal: Normal Bowel Sounds, Soft Extremity: No Pedal Edema; No Inflammation Neurologic/Psychiatric: Aphasia, Disoriented, Other (lethargic) Skin: Normal Color, Warm/Dry Results Results/Procedures Labs Laboratory Tests 03/18/23 02:37 03/19/23 04:45 Patient resulted labs reviewed. Imaging: Reviewed Imaging Report Assessment/Plan Admission Diagnosis Acute on chronic respiratory failure with hypoxia Admission Status: Inpatient Order (span 2 midnights) Reason for Inpatient Admission: Respiratory failure Assessment and Plan Acute on chronic respiratory failure with hypoxia Acute on chronic HFpEF UTI Advanced dementia COPD HTN AFib Aortic stenosis Supplemental oxygen as needed Lasix Cefepime TeleICU consulted Critical Care Critically Ill Patient Diagnosis/Problems Diagnosis/Problems (1) Acute on chronic respiratory failure with hypoxemia Status: Acute (2) Acute on chronic heart failure with preserved ejection fraction (HFpEF) Status: Acute (3) UTI (urinary tract infection) Status: Acute (4) Advanced dementia Status: Chronic (5) Poor prognosis Status: Acute MARCO A CÁRDENAS MD Mar 18, 2023 18:30
[2023-03-18 20:22] LABS: ABG BASE EXCESS 8.3 MMOL/L (-2.5-2.5); ABG OXYGEN SATURATION 90 % (94-100); ABG PCO2 58 MMHG (35-45); ABG PH 7.38 (7.37-7.43); ABG PO2 62 MMHG (79-93); ABG TCO2 35.1 MMOL/L (21.0-31.0)
[2023-03-18 20:24] LABS: ALLENS TEST YES-POS; INSPIRED O2 15L; PATIENT TEMP 37.4; VENTILATOR NO
[2023-03-18 20:44] VITALS: BP 182/101
[2023-03-18] MEDS ORDERED: DexMEDEtomidine 250 ML DRIP 250 ML IV ONE (21:22)
[2023-03-18] MEDS: DexMEDEtomidine 250 ML DRIP 250 ML IV SCH (21:31)
[2023-03-19 02:54] VITALS: BP 117/64
[2023-03-19] MEDS: RT-ALBUTEROL/IPRATROPIUM 3 ML (DUONEB) VIAL INH SCH ×4 (02:54→21:57)
[2023-03-19 04:59] LABS: BASOPHILS % (AUTO) 0 % (0-10); EOSINOPHILS % (AUTO) 0 % (0-10); HEMATOCRIT 36 % (35-52); HEMOGLOBIN 10.6 g/dL (11.5-16.0); LYMPHOCYTES # (AUTO) 0.3 10^3/uL (1.0-4.0); LYMPHOCYTES % (AUTO) 4 % (12-44); MEAN CORPUSCULAR HEMOGLOBIN 29 pg (25-34); MEAN CORPUSCULAR HGB CONC 30 g/dL (32-36); MEAN CORPUSCULAR VOLUME 97 fL (80-99); MEAN PLATELET VOLUME 10.7 fL (9.0-12.2); MONOCYTES # (AUTO) 0.2 10^3/uL (0.0-1.0); MONOCYTES % (AUTO) 3 % (0-12); NEUTROPHILS # (AUTO) 8.1 10^3/uL (1.8-7.8); NEUTROPHILS % (AUTO) 93 % (42-75); PLATELET COUNT 302 10^3/uL (130-400); WHITE BLOOD COUNT 8.8 10^3/uL (4.3-11.0)
[2023-03-19 05:22] LABS: ALBUMIN 3.3 GM/DL (3.2-4.5); CREATININE SERUM 0.66 MG/DL (0.60-1.30); MAGNESIUM 1.9 MG/DL (1.6-2.4); POTASSIUM 3.6 MMOL/L (3.6-5.0); TOTAL PROTEIN 6.2 GM/DL (6.4-8.2)
[2023-03-19] MEDS: MAGNESIUM 1 GM/100 ML IVPB 100 ML IV SCH ×2 (05:42→06:51)
[2023-03-19] MEDS: POTASSIUM CL 10MEQ/50ML IVPB 50 ML IV SCH ×4 (05:43→08:36)
[2023-03-19] MEDS: CEFEPIME 1,000 MG/NS 50 ML IVPB IV SCH ×6 (05:44→20:42)
[2023-03-19] MEDS: ENOXAPARIN 60 MG/0.6 ML (LOVENOX) SYR SC SCH ×2 (05:50→18:03)
[2023-03-19 05:59] LABS: LYMPHOCYTES % (MANUAL) 3 %; MONOCYTES % (MANUAL) 1 %; NEUTROPHILS % (MANUAL) 96 %
[2023-03-19 06:00] LABS: ELLIPT/OVALOCYTES SLIGHT
[2023-03-19] MEDS: KCL 20 MEQ TAB (K-DUR) PO SCH (06:11)
[2023-03-19 07:07] VITALS: BP 121/60
[2023-03-19] MEDS: FUROSEMIDE 40 MG/4 ML INJ (LASIX) IV SCH (09:05)
[2023-03-19 09:47] VITALS: BP 96/56
--- NOTE | 2023-03-19 10:48 | Tele-ICU Progress Note ---
Subjective Date Seen by a Provider: Mar 19, 2023 Time Seen by a Provider: 10:48 Subjective/Events-last exam (Tele-ICU Physician , Progress Note ) Service provided via interactive audio and video telecommunications E-CARE system to a patient admitted to ICU bed in [facility]. Patient is seen today due to persistent need of ICU care Available chart/ vitals / labs / Images reviewed Video assessment done using teleICU camera, rest of exam as per RN Discussed with RN Events overnight : Afebrile hemodynamically stable Respiratory - I/O = Drips: ns 60 Pressors- no Hospital course: RECENT admission 11/07 with CHF, +COVID, hypoxic respiratory failure (11/28) admitted for Acute on Chronic Respiratory failure, PNA, AECOPD,. covid 11/2022 DNR status. BIPAP levo on/off , Hb 6.7 - 1 uPCBC (02/05)dmitted with CHF/PNA, NSTEMI, aortic stenosis, afib-controlled BIPAP precedex Current admission (6.25) Admitted a 83 y/o hypoxic from the [place]. Acute on Chronic CHF and UTI. A/P Acute resp failure, hypoxic- most likely due to CHF BIPAP / 30 % [id number] tv 300 precedex 0.6 HFpEF - Echo on 10/09/22: LVEF 65-70%. Biatrial enlargement, mod to severe. Mild to mod MAC. Mild MR. Mod . Mild AI diuresis as per cards mod - severe aortic stenosis - monitor , as per cads note prior - -not a candidate for any intervvention - off IVF suspected UTI , ? 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 Discussed with RN to reach out if any questions or concerns A total of 31 minutes of critical care time was devoted to this patient today, required to treat and/or prevent further deterioration of critical care condition ( as above ) . I am remotely monitoring this patient from another state. I am unable to do the bedside exam, and history/physical and pertinent information is taken from other notes in the computer and bedside staff. . Sepsis Event Evaluation Height, Weight, BMI Height: 5'4.00" Weight: 182lbs. 0.6oz. 77.979930mr; 22.23 BMI Method:Stated Focused Exam Lactate Level 03/18/23 02:37: Lactic Acid Level 0.83 Time of Focused Exam: 03:30 Exam Exam Patient acknowledged, consented, and participated in this virtual visit which was conducted using real time audio/video Vital Signs Date Time Temp Pulse Resp B/P (MAP) Pulse Ox O2 Delivery O2 Flow Rate FiO2 03/19/23 10:00 60 27 94/54 (67) 96 NIV Bilevel 30.00 03/19/23 09:49 NIV Bilevel 30.00 03/19/23 09:47 60 28 97 30.00 03/19/23 09:00 60 23 96/56 (69) 98 NIV Bilevel 35.00 03/19/23 08:00 97 NIV Bilevel 35.00 03/19/23 08:00 60 25 90/53 (65) 98 NIV Bilevel 35.00 03/19/23 07:30 97 NIV Bilevel 40 03/19/23 07:16 NIV Bilevel 40.00 03/19/23 07:15 36.2 03/19/23 07:07 60 22 100 40.00 03/19/23 07:00 60 17 121/60 (80) 100 NIV Bilevel 75.00 03/19/23 07:00 60 03/19/23 06:00 60 22 119/73 (88) 100 NIV Bilevel 75.00 03/19/23 05:00 60 17 108/62 (77) 100 NIV Bilevel 75.00 03/19/23 04:00 62 22 126/69 (88) 100 NIV Bilevel 75.00 03/19/23 04:00 100 NIV Bilevel 6.00 03/19/23 03:00 60 23 121/64 (83) 99 NIV Bilevel 75.00 03/19/23 02:54 88 35 100 100.00 03/19/23 02:00 70 24 117/64 (81) 99 NIV Bilevel 100.00 03/19/23 01:31 61 137/72 03/19/23 01:31 61 137/72 03/19/23 01:16 79 03/19/23 01:00 74 24 137/75 (95) 99 NIV Bilevel 100.00 03/19/23 01:00 80 03/19/23 00:00 72 27 118/77 (91) 99 NIV Bilevel 100.00 03/18/23 23:59 99 NIV Bilevel 100 03/18/23 23:00 76 22 137/74 (95) 99 NIV Bilevel 100.00 03/18/23 22:00 85 43 158/86 (110) 98 NIV Bilevel 100.00 03/18/23 21:31 91 170/108 03/18/23 21:00 93 33 170/108 (128) 99 NIV Bilevel 100.00 03/18/23 20:44 88 55 98 100.00 03/18/23 20:00 95 43 182/101 (128) 92 OxyMask 6.00 03/18/23 20:00 89 OxyMask 6.00 03/18/23 19:00 87 36 170/96 (120) 94 OxyMask 6.00 03/18/23 19:00 90 03/18/23 18:00 90 94 OxyMask 6.00 03/18/23 17:00 64 21 148/78 (126) 96 OxyMask 6.00 03/18/23 16:30 96 OxyMask 6.00 03/18/23 16:00 75 29 177/91 (138) 96 OxyMask 6.00 03/18/23 15:56 36.6 03/18/23 15:00 76 32 165/99 (129) 98 OxyMask 6.00 03/18/23 14:59 Simple Mask 6.00 98 03/18/23 14:00 70 159/95 (133) 97 OxyMask 6.00 6/25/23 13:00 74 162/83 (131) 96 OxyMask 6.00 03/18/23 12:27 79 03/18/23 12:00 97 OxyMask 6.00 03/18/23 12:00 66 30 152/87 (113) 98 OxyMask 6.00 03/18/23 11:53 36.5 03/18/23 11:00 67 162/87 (112) 96 OxyMask 6.00 I & O 03/19/23 07:00 Intake Total 2300 ml Output Total 1425 ml Balance 875 ml Height & Weight Height: 5'4.00" Weight: 182lbs. 0.6oz. 77.481179ta; 22.23 BMI Method:Stated General Appearance: Chronically ill, Mild Distress (tachypnea) Neck: Normal Inspection, Supple Respiratory: Crackles, Decreased Breath Sounds, Respiratory Distress (tachypnea) Cardiovascular: Regular Rate, Rhythm, Systolic Murmur Capillary Refill: Less Than 3 Seconds Peripheral Pulses: 2+ Radial Pulses (R), 2+ Radial Pulses (L) Gastrointestinal: soft, distended Extremity: No Pedal Edema; No Inflammation Neurologic/Psychiatric: Aphasia, Disoriented, Other (lethargic) Skin: Normal Color, Warm/Dry Results Lab Laboratory Tests 03/18/23 02:37 03/19/23 04:45 Assessment/Plan Assessment/Plan 1 EHSAN FULTON MD Mar 19, 2023 10:48
--- NOTE | 2023-03-19 11:52 | Progress Note - Hospitalist ---
Subjective HPI/CC On Admission Date Seen by Provider: Mar 19, 2023 Time Seen by Provider: 08:00 Citlaly Salazar is an 83 year old female with advanced dementia and recurrent hospitalizations who presented from her long term with hypoxia. She is a poor historian. She was found to have low oxygen saturations at [facility]. She is unable to provide any information due to her clinical status. She is sleeping. She will open her eyes but does not speak. Subjective/Events-last exam Pt is sedated on precedex. No family at bedside. No ROS possible. RN reports desatted last night after removing her oxygen and eICU ordered precedex. Now weaned down to 40%. Focused Exam Lactate Level 03/18/23 02:37: Lactic Acid Level 0.83 Time of Focused Exam: 03:30 Objective Exam Vital Signs Vital Signs Date Time Temp Pulse Resp B/P (MAP) Pulse Ox O2 Delivery O2 Flow Rate FiO2 03/19/23 10:00 60 27 94/54 (67) 96 NIV Bilevel 30.00 03/19/23 07:30 40 03/19/23 07:15 36.2 Capillary Refill : Less Than 3 Seconds General Appearance: No Apparent Distress, Chronically ill Respiratory: Decreased Breath Sounds, Other (on BiPAP) Cardiovascular: Systolic Murmur Gastrointestinal: Normal Bowel Sounds, Soft Neurologic/Psychiatric: Alert, Oriented x3 Results/Procedures Lab Laboratory Tests 03/19/23 04:45 Patient resulted labs reviewed. Imaging: Reviewed Imaging Report Assessment/Plan Assessment and Plan Assess & Plan/Chief Complaint Acute on chronic respiratory failure with hypoxia Acute on chronic HFpEF UTI Advanced dementia COPD HTN AFib Aortic stenosis Continue BiPAP Lasix- monitor UOP Cefepime for PNA TeleICU consulted Resume home meds once med rec down Critical Care Critically Ill Patient ABRAHAM CIFUENTES MD Mar 19, 2023 11:52
[2023-03-19 14:34] VITALS: BP 111/58
[2023-03-19] MEDS: NS IV 1000 ML 1,000 ML IV SCH (15:47)
[2023-03-19] MEDS ORDERED: FUROSEMIDE 40 MG/4 ML INJ (LASIX) IVP NR (17:30)
[2023-03-19] MEDS: D5W 1000 ML IV SOLUTION 1,000 ML IV SCH (18:02)
[2023-03-19 18:57] VITALS: BP 105/60
[2023-03-19 21:57] VITALS: BP 114/64
[2023-03-19] MEDS: DexMEDEtomidine 250 ML DRIP 250 ML IV SCH (22:48)
[2023-03-20 02:41] VITALS: BP 104/60
[2023-03-20] MEDS: RT-ALBUTEROL/IPRATROPIUM 3 ML (DUONEB) VIAL INH SCH ×4 (02:41→22:25)
[2023-03-20 05:11] LABS: BASOPHILS % (AUTO) 0 % (0-10); EOSINOPHILS % (AUTO) 0 % (0-10); HEMATOCRIT 34 % (35-52); HEMOGLOBIN 10.1 g/dL (11.5-16.0); LYMPHOCYTES # (AUTO) 0.6 10^3/uL (1.0-4.0); LYMPHOCYTES % (AUTO) 7 % (12-44); MEAN CORPUSCULAR HEMOGLOBIN 29 pg (25-34); MEAN CORPUSCULAR HGB CONC 30 g/dL (32-36); MEAN CORPUSCULAR VOLUME 97 fL (80-99); MONOCYTES # (AUTO) 0.5 10^3/uL (0.0-1.0); MONOCYTES % (AUTO) 6 % (0-12); NEUTROPHILS # (AUTO) 7.5 10^3/uL (1.8-7.8); NEUTROPHILS % (AUTO) 87 % (42-75); PLATELET COUNT 279 10^3/uL (130-400); WHITE BLOOD COUNT 8.7 10^3/uL (4.3-11.0)
[2023-03-20 05:27] LABS: ALBUMIN 3.2 GM/DL (3.2-4.5); BILIRUBIN,TOTAL 0.8 MG/DL (0.1-1.0); CALCIUM 9.2 MG/DL (8.5-10.1); CREATININE SERUM 0.7 MG/DL (0.60-1.30); MAGNESIUM 2.2 MG/DL (1.6-2.4); PHOSPHORUS 2.9 MG/DL (2.3-4.7); POTASSIUM 3.6 MMOL/L (3.6-5.0)
[2023-03-20] MEDS: KCL 20 MEQ TAB (K-DUR) PO SCH (06:23)
[2023-03-20] MEDS: POTASSIUM CL 10MEQ/50ML IVPB 50 ML IV SCH (06:27)
[2023-03-20] MEDS: CEFEPIME 1,000 MG/NS 50 ML IVPB IV SCH ×6 (06:27→20:54)
[2023-03-20] MEDS: ENOXAPARIN 60 MG/0.6 ML (LOVENOX) SYR SC SCH ×2 (06:29→19:56)
--- NOTE | 2023-03-20 06:45 | Diagnostic Imaging Report ---
PROCEDURE: CT head without contrast. TECHNIQUE: Multiple contiguous axial images were obtained through the brain without the use of intravenous contrast. Auto Exposure Controls were utilized during the CT exam to meet ALARA standards for radiation dose reduction. INDICATION: Change in size of pupils. EXAMINATION: CT brain without contrast from 03/20/2023. COMPARISON: 02/14/2021 FINDINGS: Diffuse chronic ischemic changes noted with atrophy also present. Prominence of the ventricles similar minimally worsened since the previous perhaps due to an underlying history of normal pressure hydrocephalus correlate clinically. There is no acute hemorrhage or infarct. No mass, mass effect or midline shift. No acute osseous abnormality. Chronic sinus disease is noted. IMPRESSION: 1. Diffuse chronic findings including prominence of the ventricles as noted above. No acute hemorrhage or infarct. Dictated by: Dictated on workstation # [id number]
[2023-03-20 07:40] VITALS: BP 100/58
--- NOTE | 2023-03-20 08:09 | Tele-ICU Progress Note ---
Subjective Date Seen by a Provider: Mar 20, 2023 Time Seen by a Provider: 08:02 Subjective/Events-last exam (Tele-ICU Physician , Progress Note ) Service provided via interactive audio and video telecommunications E-CARE system to a patient admitted to ICU bed in [facility]. Patient is seen today due to persistent need of ICU care Available chart/ vitals / labs / Images reviewed Video assessment done using teleICU camera, rest of exam as per RN Discussed with RN 83 yo F admitted with hypoxia from CHF, was on BIPAP 16/8, FiO2 30%, now on FM @ 5 lpm, with SpO2 100% has HFpEF, getting IV Lasix 80mg, also on IV Cefepime I reviewed CXR shows PPM, very enlarged heart and mild congestion Hs of a fib, now on full dose Lovenox, unable to take home Claire Has moderate to severe , not a candidate for surgery Dementia which is advanced, pt is DNR, Needs IV Precedex @ 1.0 otherwise becom es very agitated Sepsis Event Evaluation Height, Weight, BMI Height: 5'4.00" Weight: 182lbs. 0.6oz. 77.735071cj; 22.67 BMI Method:Stated Focused Exam Lactate Level 03/18/23 02:37: Lactic Acid Level 0.83 Time of Focused Exam: 03:30 Exam Exam Patient acknowledged, consented, and participated in this virtual visit which was conducted using real time audio/video Vital Signs Date Time Temp Pulse Resp B/P (MAP) Pulse Ox O2 Delivery O2 Flow Rate FiO2 03/20/23 07:40 60 33 94 30.00 03/20/23 07:34 36.4 03/20/23 06:00 60 20 98 NIV Bilevel 30.00 03/20/23 05:19 60 20 100/58 (74) 98 NIV Bilevel 30.00 03/20/23 05:00 60 20 98 NIV Bilevel 30.00 03/20/23 04:26 60 22 127/74 (102) 97 NIV Bilevel 30.00 03/20/23 04:00 94 NIV Bilevel 03/20/23 03:57 36.4 03/20/23 02:48 60 113/63 03/20/23 02:43 60 24 113/63 (85) 98 NIV Bilevel 30.00 03/20/23 02:41 62 27 96 30.00 03/20/23 02:00 60 28 93/56 (77) 97 NIV Bilevel 30.00 03/20/23 01:00 60 03/20/23 01:00 60 29 91/55 (67) 97 NIV Bilevel 30.00 03/20/23 00:00 64 34 120/68 (94) 97 NIV Bilevel 30.00 03/20/23 00:00 36.4 03/19/23 23:59 98 NIV Bilevel 03/19/23 23:00 60 26 91/51 (65) 97 NIV Bilevel 30.00 03/19/23 22:48 62 111/62 03/19/23 22:00 60 23 104/56 (74) 97 NIV Bilevel 30.00 03/19/23 21:57 60 24 97 30.00 03/19/23 21:00 60 20 103/56 (78) 98 NIV Bilevel 30.00 03/19/23 20:00 100 NIV Bilevel 03/19/23 20:00 60 24 93/59 (75) 97 NIV Bilevel 30.00 03/19/23 19:00 60 23 92/49 (63) 97 NIV Bilevel 30.00 03/19/23 19:00 60 03/19/23 18:57 60 26 100 30.00 03/19/23 18:00 59 20 105/60 (75) 97 NIV Bilevel 30.00 03/19/23 17:00 65 33 102/52 (69) 97 NIV Bilevel 30.00 03/19/23 16:05 98 NIV Bilevel 30 03/19/23 16:00 67 25 101/59 (75) 97 NIV Bilevel 30.00 03/19/23 15:09 35.8 NIV Bilevel 30.00 03/19/23 15:00 59 25 92/50 (64) 96 NIV Bilevel 30.00 03/19/23 14:34 60 26 97 30.00 03/19/23 14:00 60 21 111/58 (75) 97 NIV Bilevel 30.00 03/19/23 13:00 64 22 116/58 (77) 98 NIV Bilevel 30.00 03/19/23 13:00 63 03/19/23 12:00 61 23 97/57 (70) 97 NIV Bilevel 30.00 03/19/23 12:00 95 NIV Bilevel 30 03/19/23 11:00 63 31 114/63 (80) 95 NIV Bilevel 30.00 03/19/23 10:00 60 27 94/54 (67) 96 NIV Bilevel 30.00 03/19/23 09:49 NIV Bilevel 30.00 03/19/23 09:47 60 28 97 30.00 03/19/23 09:00 60 23 96/56 (69) 98 NIV Bilevel 35.00 I & O 03/20/23 07:00 Intake Total 1470 ml Output Total 622 ml Balance 848 ml Height & Weight Height: 5'4.00" Weight: 182lbs. 0.6oz. 77.256542dq; 22.67 BMI Method:Stated General Appearance: No Apparent Distress, Chronically ill, Mild Distress Neck: Normal Inspection, Supple Respiratory: Lungs Clear, Decreased Breath Sounds, Other (on BiPAP) Cardiovascular: Regular Rate, Rhythm, Systolic Murmur Capillary Refill: Less Than 3 Seconds Peripheral Pulses: 2+ Radial Pulses (R), 2+ Radial Pulses (L) Gastrointestinal: normal bowel sounds, non tender, soft, distended Extremity: No Pedal Edema; No Inflammation Neurologic/Psychiatric: Alert, Oriented x3, Other (no oriented to time, place or person) Skin: Normal Color, Warm/Dry Results Lab Laboratory Tests 03/19/23 04:45 03/20/23 04:40 Assessment/Plan Assessment/Plan CHF, aortic stenosis, will continue IV Lasix Continue Lovenox for a fib Hypernatremia now 147, was 148, dementia, pt now DNR, son to be talked about goals of care Critical Care: Critically Ill Patient PAYTON EDWARDS MD Mar 20, 2023 08:09
--- NOTE | 2023-03-20 09:01 | Diagnostic Imaging Report ---
CHEST 1 VIEW, AP/PA ONLY Indication: Hypoxia Comparison: 03/18/2023 Findings: Stable cardiomegaly with right pectoral transvenous pacemaker. Improved but persistent bilateral perihilar and basilar opacities. The bilateral pleural effusions have redistributed versus improved. No pneumothorax. Impression: 1. Improvement in pulmonary edema. Dictated by: Dictated on workstation # [id number]
[2023-03-20] MEDS: FUROSEMIDE 40 MG/4 ML INJ (LASIX) IV SCH (09:10)
--- NOTE | 2023-03-20 09:21 | Progress Note - Hospitalist ---
Subjective HPI/CC On Admission Date Seen by Provider: Mar 20, 2023 Citlaly Salazar is an 83 year old female with advanced dementia and recurrent hospitalizations who presented from her longterm with hypoxia. She is a poor historian. She was found to have low oxygen saturations at [facility]. She is unable to provide any information due to her clinical status. She is sleeping. She will open her eyes but does not speak. Subjective/Events-last exam Pt off BiPAP. RN Reports pt went to CT this AM and there was concern for seizure like activity. RN reports patient quite sedate since then but is still on precedex. Focused Exam Lactate Level Time of Focused Exam: 03:30 Objective Exam Vital Signs Vital Signs Date Time Temp Pulse Resp B/P (MAP) Pulse Ox O2 Delivery O2 Flow Rate FiO2 03/21/23 08:45 78 22 164/94 (117) 92 OxyMask 2.00 03/21/23 07:58 36.9 03/21/23 03:04 94 Capillary Refill : Less Than 3 Seconds General Appearance: Chronically ill, Thin Respiratory: Lungs Clear, Other (on room air) Cardiovascular: Regular Rate, Rhythm, Systolic Murmur Gastrointestinal: Normal Bowel Sounds, Non Tender, Soft Neurologic/Psychiatric: Alert, Disoriented Results/Procedures Lab Laboratory Tests 03/21/23 04:42 Patient resulted labs reviewed. Imaging: Reviewed Imaging Report Assessment/Plan Assessment and Plan Assess & Plan/Chief Complaint Acute on chronic respiratory failure with hypoxia Acute on chronic HFpEF UTI Advanced dementia COPD HTN AFib Aortic stenosis Now off BiPAP Lasix- monitor UOP Cefepime for PNA TeleICU consulted Resume home meds once med rec down ?Seizure like activity Rn reports seizure like activity and then sedated following CT Head negative Confounded by still being on precedex DVT ppx: Lovenox I returned to room around 1700 to speak with son and daughter about goals of care. They understand that she gets very ill but she has recovered and they feel she has a good quality of life over at the longterm in between her acute illnesses. They would like to continue curative treatment and are ok with an NGT as well if she is not able to start taking in orals yet. Critical Care Critically Ill Patient ABRAHAM CIFUENTES MD Mar 20, 2023 09:21
[2023-03-20] MEDS: D5W 1000 ML IV SOLUTION 1,000 ML IV SCH (12:56)
[2023-03-20] MEDS ORDERED: fentaNYL INJ 100 MCG/2 ML AMP ONE (13:33)
[2023-03-20] MEDS: fentaNYL INJ 100 MCG/2 ML AMP IVP PRN ×2 (13:36→21:19)
[2023-03-20] MEDS: DexMEDEtomidine 250 ML DRIP 250 ML IV SCH (14:29)
[2023-03-21] MEDS: fentaNYL INJ 100 MCG/2 ML AMP IVP PRN ×6 (02:01→22:18)
[2023-03-21] MEDS: RT-ALBUTEROL/IPRATROPIUM 3 ML (DUONEB) VIAL INH SCH ×4 (03:04→21:23)
[2023-03-21] MEDS: CEFEPIME 1,000 MG/NS 50 ML IVPB IV SCH ×6 (04:56→20:44)
[2023-03-21 05:16] LABS: BASOPHILS % (AUTO) 0 % (0-10); EOSINOPHILS % (AUTO) 0 % (0-10); HEMATOCRIT 38 % (35-52); HEMOGLOBIN 11.3 g/dL (11.5-16.0); LYMPHOCYTES % (AUTO) 10 % (12-44); MEAN CORPUSCULAR HEMOGLOBIN 29 pg (25-34); MEAN CORPUSCULAR HGB CONC 30 g/dL (32-36); MEAN CORPUSCULAR VOLUME 95 fL (80-99); MEAN PLATELET VOLUME 11.2 fL (9.0-12.2); MONOCYTES # (AUTO) 0.8 10^3/uL (0.0-1.0); MONOCYTES % (AUTO) 8 % (0-12); NEUTROPHILS # (AUTO) 8.1 10^3/uL (1.8-7.8); NEUTROPHILS % (AUTO) 81 % (42-75); PLATELET COUNT 314 10^3/uL (130-400); WHITE BLOOD COUNT 9.9 10^3/uL (4.3-11.0)
[2023-03-21 05:21] LABS: ALBUMIN 3.4 GM/DL (3.2-4.5); BILIRUBIN,TOTAL 1.3 MG/DL (0.1-1.0); CALCIUM 9.4 MG/DL (8.5-10.1); CREATININE SERUM 0.62 MG/DL (0.60-1.30); PHOSPHORUS 2.4 MG/DL (2.3-4.7); TOTAL PROTEIN 6.2 GM/DL (6.4-8.2)
[2023-03-21] MEDS: MAGNESIUM 1 GM/100 ML IVPB 100 ML IV SCH (06:13)
[2023-03-21] MEDS: POTASSIUM CL 10MEQ/50ML IVPB 50 ML IV SCH ×4 (06:13→08:50)
[2023-03-21] MEDS: KCL 20 MEQ TAB (K-DUR) PO SCH (06:17)
[2023-03-21] MEDS: ENOXAPARIN 60 MG/0.6 ML (LOVENOX) SYR SC SCH ×2 (06:17→17:42)
[2023-03-21] MEDS: FUROSEMIDE 40 MG/4 ML INJ (LASIX) IV SCH (06:18)
[2023-03-21] MEDS: D5W 1000 ML IV SOLUTION 1,000 ML IV SCH ×2 (07:22→23:19)
--- NOTE | 2023-03-21 10:46 | Progress Note - Hospitalist ---
Subjective HPI/CC On Admission Date Seen by Provider: Mar 21, 2023 Citlaly Salazar is an 83 year old female with advanced dementia and recurrent hospitalizations who presented from her care home with hypoxia. She is a poor historian. She was found to have low oxygen saturations at [facility]. She is unable to provide any information due to her clinical status. She is sleeping. She will open her eyes but does not speak. Subjective/Events-last exam Pt off precedex since this AM. Removed nasal cannula just before I entered but let me put it back on and sats improved quickly to the 90s. Does not speak but did reach her up in the arm to grasp my hand. RN at bedside. No new concerns noted. Focused Exam Time of Focused Exam: 03:30 Objective Exam Vital Signs Vital Signs Date Time Temp Pulse Resp B/P (MAP) Pulse Ox O2 Delivery O2 Flow Rate FiO2 03/21/23 08:45 78 22 164/94 (117) 92 OxyMask 2.00 03/21/23 07:58 36.9 03/21/23 03:04 94 Capillary Refill : Less Than 3 Seconds General Appearance: Chronically ill Respiratory: No Accessory Muscle Use, Decreased Breath Sounds Cardiovascular: Regular Rate, Rhythm, Systolic Murmur Gastrointestinal: Normal Bowel Sounds, Soft Neurologic/Psychiatric: Alert, Disoriented Results/Procedures Lab Laboratory Tests 03/21/23 04:42 Patient resulted labs reviewed. Imaging: Reviewed Imaging Report Assessment/Plan Assessment and Plan Assess & Plan/Chief Complaint Acute on chronic respiratory failure with hypoxia Acute on chronic HFpEF UTI Advanced dementia COPD HTN AFib Aortic stenosis off BiPAP Lasix- had good UOP - 1600 yesterday Cefepime for PNA TeleICU consulted Speech therapy when more awake ?Seizure like activity RN reports seizure like activity before CT yesterday and then sedated following CT Head negative Continue Keppra DVT ppx: Lovenox- therapeutic dosing Critical Care Critically Ill Patient ABRAHAM CIFUENTES MD Mar 21, 2023 10:46
--- NOTE | 2023-03-21 12:15 | Tele-ICU Progress Note ---
Subjective Date Seen by a Provider: Mar 21, 2023 Time Seen by a Provider: 12:14 Subjective/Events-last exam (Tele-ICU Physician , Progress Note ) Service provided via interactive audio and video telecommunications E-CARE system to a patient admitted to ICU bed in [facility]. Patient is seen today due to persistent need of ICU care Available chart/ vitals / labs / Images reviewed Video assessment done using teleICU camera, rest of exam as per RN Discussed with RN Events overnight : Afebrile hemodynamically stable Respiratory - I/O = Drips: ns 60 Pressors- no Hospital course: RECENT admission 11/07 with CHF, +COVID, hypoxic respiratory failure (11/28) admitted for Acute on Chronic Respiratory failure, PNA, AECOPD,. covid 11/2022 DNR status. BIPAP levo on/off , Hb 6.7 - 1 uPCBC (02/05)dmitted with CHF/PNA, NSTEMI, aortic stenosis, afib-controlled BIPAP precedex Current admission (6.25) Admitted a 83 y/o hypoxic from the [place]. Acute on Chronic CHF and UTI. 03/21- off precedex A/P Acute resp failure, hypoxic- most likely due to CHF - NC 4L o2 precedex OFF HFpEF - Echo on 10/09/22: LVEF 65-70%. Biatrial enlargement, mod to severe. Mild to mod MAC. Mild MR. Mod . Mild AI diuresis as per cards mod - severe aortic stenosis - monitor , as per cads note prior - -not a candidate for any intervvention - off IVF suspected UTI , ? PNA ( recent tx PNA ,RLL, HAP vs aspiration - merrem - finished 12/03 , also 11/2022 - UTI with e coli started empirically on cefepime Pulm HTN , -Echo on 10/09/22: PASP 70-75 mmHg - fluis status is chalenging given COPD, cronic resp failure - nebs A Fib - Sinus now - has been on OAC for stroke prophylaxis with Eliquis [employer] - on Lovenox full dose since can not swallow pills now Hypernatremia - will add H20 - by IV or PO - reassess Anemia - mild , no bleed ( on lovenox ) Advanced dementia goals of care - as per PCP /family discussion - DNR now Nutritiona - not eating for 3 days - follow closely Lines : periph , (Central Line Necessity Reviewed) Chavis: ER 03/18 OG: Nutrition: npo Analgesia: Anxiety/ delirium VTE Prophylaxis: - lovenox - full dose Stress Ulcer Prophylaxis: ppi Plans in collaboration with bedside consultants and IM MDs. Discussed with RN to reach out if any questions or concerns A total of 20 minutes of critical care time was devoted to this patient today, required to treat and/or prevent further deterioration of critical care condition ( as above ) . I am remotely monitoring this patient from another state. I am unable to do the bedside exam, and history/physical and pertinent information is taken from other notes in the computer and bedside staff. . Sepsis Event Evaluation Height, Weight, BMI Height: 5'4.00" Weight: 182lbs. 0.6oz. 77.919845ym; 22.63 BMI Method:Stated Focused Exam Time of Focused Exam: 03:30 Exam Exam Patient acknowledged, consented, and participated in this virtual visit which was conducted using real time audio/video Vital Signs Date Time Temp Pulse Resp B/P (MAP) Pulse Ox O2 Delivery O2 Flow Rate FiO2 03/21/23 11:15 36.8 03/21/23 11:14 36.8 03/21/23 11:00 86 35 173/79 (110) 97 OxyMask 2.00 03/21/23 10:15 71 22 156/97 (116) 90 OxyMask 2.00 03/21/23 08:45 78 22 164/94 (117) 92 OxyMask 2.00 03/21/23 08:00 99 Simple Mask 2.00 03/21/23 08:00 OxyMask 2.00 03/21/23 07:58 36.9 03/21/23 07:08 93 Nasal Cannula 2.00 03/21/23 07:00 82 16 167/101 (123) 94 Nasal Cannula 2.00 03/21/23 07:00 82 03/21/23 06:00 75 29 148/87 (107) 89 Nasal Cannula 2.00 03/21/23 05:00 65 30 151/76 (101) 100 Nasal Cannula 2.00 03/21/23 04:00 80 17 153/65 (94) 91 Nasal Cannula 2.00 03/21/23 04:00 99 Nasal Cannula 2.00 03/21/23 03:49 36.8 03/21/23 03:04 Nasal Cannula 1.00 94 03/21/23 03:00 73 30 126/68 (87) 100 Nasal Cannula 2.00 03/21/23 02:15 68 22 126/64 (84) 99 Nasal Cannula 2.00 03/21/23 01:00 72 03/21/23 01:00 82 28 146/82 (103) 96 Nasal Cannula 2.00 03/21/23 00:02 37.0 03/21/23 00:00 62 25 115/68 (84) 100 Nasal Cannula 2.00 03/20/23 23:47 94 Simple Mask 5.00 03/20/23 23:00 76 28 134/78 (96) 90 Simple Mask 5.00 03/20/23 22:25 Simple Mask 3.50 94 03/20/23 22:00 79 22 152/98 (116) 96 Simple Mask 5.00 03/20/23 21:00 73 26 139/77 (97) 96 Simple Mask 5.00 03/20/23 20:00 94 Simple Mask 5.00 03/20/23 20:00 77 19 140/93 (109) 96 Simple Mask 5.00 03/20/23 19:44 36.6 03/20/23 19:15 71 35 127/71 (89) 88 Simple Mask 5.00 03/20/23 19:00 60 03/20/23 18:29 72 120/76 03/20/23 18:00 78 38 138/81 (100) 98 Simple Mask 5.00 03/20/23 17:00 60 32 129/69 (89) 99 Simple Mask 5.00 03/20/23 16:00 94 Simple Mask 5.00 03/20/23 16:00 60 30 125/76 (92) 93 Simple Mask 5.00 03/20/23 15:50 36.4 03/20/23 15:00 59 24 136/72 (93) 98 Simple Mask 5.00 03/20/23 14:40 Simple Mask 5.00 97 03/20/23 14:29 60 143/75 03/20/23 14:00 60 21 128/64 (85) 99 Simple Mask 5.00 03/20/23 13:00 60 15 142/84 (103) 97 Simple Mask 5.00 03/20/23 12:23 60 I & O 03/21/23 07:00 Intake Total 205 ml Output Total 2150 ml Balance -1945 ml Height & Weight Height: 5'4.00" Weight: 182lbs. 0.6oz. 77.873005wa; 22.63 BMI Method:Stated General Appearance: Chronically ill, Thin Neck: Normal Inspection, Supple Respiratory: Lungs Clear, Other (on room air) Cardiovascular: Regular Rate, Rhythm, Systolic Murmur Capillary Refill: Less Than 3 Seconds Peripheral Pulses: 2+ Radial Pulses (R), 2+ Radial Pulses (L) Gastrointestinal: normal bowel sounds, non tender, soft, distended Extremity: No Pedal Edema; No Inflammation Neurologic/Psychiatric: Alert, Disoriented Skin: Normal Color, Warm/Dry Results Lab Laboratory Tests 03/20/23 04:40 03/21/23 04:42 Assessment/Plan Assessment/Plan 1 EHSAN FULTON MD Mar 21, 2023 12:14
--- NOTE | 2023-03-21 12:19 | Physical Therapy Evaluation ---
PT Evaluation-General Medical Diagnosis Admission Date Mar 18, 2023 at 04:42 Medical Diagnosis: Acute on Chronic Respiratory Failure Onset Date: Mar 21, 2023 Therapy Diagnosis Therapy Diagnosis: impaired mobility Height/Weight Height (Feet): 5 Height (Inches): 4.00 Weight (Pounds): 182 Weight (Ounces): 0.6 Precautions Precautions/Isolations: Standard Precautions Referral Physician: Becky Williamson Reason for Referral: Evaluation/Treatment Medical History Pertinent Medical History: Atrial Fib, Arthritis, COPD, CVA, Dementia, GERD, HTN, Renal Insufficiency Reviewed History: Yes Social History Home: [facility] Pt completely dependent for all mobility and self care. Prior Prior Level of Function SCALE: Activities may be completed with or without assistive devices. 2-Vyblmdgexp-mqxwwsq completes the activity by him/herself with no assistance from a helper. 5-Set-up or Clean-up Assistance-helper sets up or cleans up; patient completes activity. [place] assists only prior to or following the activity. 4-Supervision or Touching Assistance-helper provides verbal cues and/or touching/steadying and/or contact guard assistance as patient completes activity. Assistance may be provided throughout the activity or intermittently. 3-Partial/Moderate Assistance-helper does LESS THAN HALF the effort. [place] lifts, holds or supports trunk or limbs, but provides less than half the effort. 2-Substantial/Maximal Assistance-helper does MORE THAN HALF the effort. [place] lifts or holds trunk or limbs and provides more than half the effort. 8-Enrxdgyyi-uzaapd does ALL the effort. Patient does none of the effort to complete the activity. Or, the assistance of 2 or more helpers is required for the patient to complete the activity. If activity was not attempted, code reason: 7-Patient Refused. 9-Not Applicable-not attempted and the patient did not perform the activity before the current illness, exacerbation or injury. 10-Not Attempted due to Environmental Limitations-(lack of equipment, weather restraints, etc.). 88-Not Attempted due to Medical Conditions or Safety Concerns. Bed Mobility: 1 Transfers (B,C,W/C): 1 Gait: 1 Stairs: 1 Wheelchair Mobility: 1 Indoor Mobility (Ambulation): Dependent Stairs: Dependent PT Evaluation-Current Subjective Pt non responsive to verbal cues. Yells out with pain during LE ROM. Objective Patient Orientation: Non-Verbal/Aphasic, Unresponsive ROM/Strength Strength Lower Extremities (R) LE 1/5, (L) LE 2/5 Transfers Roll Left to Right (QC): 1 Sit to Lying (QC): 1 Lying to Sitting/Side of Bed(Q: 1 Chair/Smd-dk-Sthtp Xfer(QC): 1 Pt is completely dependent with all mobility. She resides in a skilled facility where she is a total assist and used Joana for transfers. Assessment/Needs Pt assessed for mobility and strength. She is not able participate due to poor cognition from advanced dementia as well as loss of motor skills from disuse. She is a total assist patient at the skilled facility. Pt is not a candidate for skilled therapy intervention at this time. Rehab Potential: Poor PT Plan Treatment/Plan Treatment Plan: Discontinue PT Treatment Duration: Mar 13, 2023 Frequency: 1 time per week Time Time In: 1140 Time Out: 1200 DATE: Mar 21, 2023 Total Billed Treatment Time: 20 Total Billed Treatment visit, loveal mod complexity 20 min MELODY ISRAEL PT Mar 21, 2023 12:19
[2023-03-21] MEDS ORDERED: FLUCONAZOLE 200 MG/100 ML 100 ML IV ONE (15:00)
[2023-03-21 15:08] VITALS: BP 157/69
--- NOTE | 2023-03-21 16:34 | Occupational Therapy Eval ---
OT Evaluation-General/PLF Medical Diagnosis Admission Date Mar 18, 2023 at 04:42 Medical Diagnosis: Acute on Chronic Respiratory Failure Onset Date: Mar 21, 2023 Therapy Diagnosis Therapy Diagnosis: debility Height/Weight Height (Feet): 5 Height (Inches): 4.00 Weight (Pounds): 182 Weight (Ounces): 0.6 Precautions Precautions/Isolations: Standard Precautions, Pressure Ulcer (on right hand noted to monitor) Weight Bear Status does not stand Referral Physician: Becky Williamson Referral Reason: Self Care, Evaluation/Treatment, Strengthening/ROM Medical History Pertinent Medical History: Atrial Fib, Arthritis, COPD, CVA, Dementia, GERD, HTN, Renal Insufficiency Additional Medical History 83 year old female with advanced dementia and recurrent hospitalizations who presented from her long term with hypoxia. She is a poor historian. She was found to have low oxygen saturations at [facility]. She is unable to provide any information due to her clinical status.. She has had one hospital admission per month this year. Her family would like to pursue continued measures for treatment and remain FULL CODE. Reviewed History: Yes Social History Home: [facility] ADL-Prior Level of Function SCALE: Activities may be completed with or without assistive devices. 3-Cebaikgzfy-yhcsstz completes the activity by him/herself with no assistance from a helper. 5-Set-up or Clean-up Assistance-helper sets up or cleans up; patient completes activity. [place] assists only prior to or following the activity. 4-Supervision or Touching Assistance-helper provides verbal cues and/or touching/steadying and/or contact guard assistance as patient completes activity. Assistance may be provided throughout the activity or intermittently. 3-Partial/Moderate Assistance-helper does LESS THAN HALF the effort. [place] l ifts, holds or supports trunk or limbs, but provides less than half the effort. 2-Substantial/Maximal Assistance-helper does MORE THAN HALF the effort. [place] lifts or holds trunk or limbs and provides more than half the effort. 2-Hmacprldq-pjcobo does ALL the effort. Patient does none of the effort to complete the activity. Or, the assistance of 2 or more helpers is required for t he patient to complete the activity. If activity was not attempted, code reason: 7-Patient Refused. 9-Not Applicable-not attempted and the patient did not perform the activity before the current illness, exacerbation or injury. 10-Not Attempted due to Environmental Limitations-(lack of equipment, weather restraints, etc.). 88-Not Attempted due to Medical Conditions or Safety Concerns. ADL PLOF Comments Patient is dependent in all aspects of her care, including scheduled turns, mec hanical lifts and WC positions and mobility Self Care: Dependent Functional Cognition: Dependent Drive Self: No OT Current Status Subjective EYES open , no other alertness to follow commands. Mental Status/Objective Patient Orientation: Eyes Open Attachments: Chavis Catheter, IV, Oxygen (9 liters mask) Current Upper Extremity ROM PROM WFL on supine position Upper Extremity Coordination unable to access Upper Extremity Sensation unable to access Upper Extremity Strength unable to access ADL-Treatment ADL-Current Performed hand over hand face washing around 02 mask, facial creasing on forehead w/ right hand washing, odor present and Pressure risk areas on IP knuckles of digits. Wash clothe rolled for comfort and PU decreased risk Eating (QC): 88 Oral Hygiene (QC): 1 Shower/Bathe Self (QC): 1 Upper Body Dressing (QC): 1 Lower Body Dressing (QC): 1 On/Off Footwear (QC): 1 Toileting Hygiene (QC): 1 Education OT Patient Education: Progress toward Goal/Update tx plan, Purpose of tx/functional activities, Reviewed precautions, Rehab process Teaching Recipient: Patient (unable to comprehend) Teaching Methods: Demonstration, Discussion Response to Teaching: Unable to Comprehend OT Manufacturing Engineer Chief Goals Manufacturing Engineer Chief Goals 1=Demonstrate adherence to instructed precautions during ADL tasks. 2=Patient will verbalize/demonstrate understanding of assistive devices/modifications for ADL. 3=Patient will improve strength/tolerance for activity to enable patient to perform ADL's. OT Education/Plan Problem List/Assessment Assessment: No Skilled OT Needs ID'd Discharge Recommendations Plan/Recommendations: Discontinue OT Treatment Plan/Plan of Care Patient would benefit from OT for education, treatment and training to promote independence in ADL's, mobility, safety and/or upper extremity function for ADL's. Plan of Care: OTHER (EVAL ONLY) Treatment Duration: Mar 21, 2023 Frequency: 1 time per week Estimated Hrs Per Day: .25 hour per day Rehab Potential: Poor Time Start Time: 15:15 Stop Time: 15:25 DATE: Mar 21, 2023 Total Time Billed (hr/min): 10 Billed Treatment Time EVL 10 min SERGIO ABRAHAM OT Mar 21, 2023 16:34
[2023-03-21] MEDS: MICONAZOLE 2% POWDER (DESENEX AF) 90 GM TOP SCH (17:42)
[2023-03-22] MEDS: fentaNYL INJ 100 MCG/2 ML AMP IVP PRN ×2 (01:48→04:41)
[2023-03-22] MEDS: RT-ALBUTEROL/IPRATROPIUM 3 ML (DUONEB) VIAL INH SCH ×4 (03:25→22:31)
[2023-03-22 05:06] LABS: BASOPHILS % (AUTO) 0 % (0-10); EOSINOPHILS % (AUTO) 0 % (0-10); HEMATOCRIT 38 % (35-52); HEMOGLOBIN 11.4 g/dL (11.5-16.0); LYMPHOCYTES % (AUTO) 11 % (12-44); MEAN CORPUSCULAR HEMOGLOBIN 29 pg (25-34); MEAN CORPUSCULAR HGB CONC 30 g/dL (32-36); MEAN CORPUSCULAR VOLUME 96 fL (80-99); MEAN PLATELET VOLUME 11.2 fL (9.0-12.2); MONOCYTES # (AUTO) 0.6 10^3/uL (0.0-1.0); MONOCYTES % (AUTO) 7 % (0-12); NEUTROPHILS # (AUTO) 7.1 10^3/uL (1.8-7.8); NEUTROPHILS % (AUTO) 81 % (42-75); PLATELET COUNT 264 10^3/uL (130-400); WHITE BLOOD COUNT 8.7 10^3/uL (4.3-11.0)
[2023-03-22 05:07] LABS: ALBUMIN 3.4 GM/DL (3.2-4.5); POTASSIUM 3.1 MMOL/L (3.6-5.0)
[2023-03-22 05:09] LABS: CALCIUM 9.1 MG/DL (8.5-10.1)
[2023-03-22 05:10] LABS: TOTAL PROTEIN 6.1 GM/DL (6.4-8.2)
[2023-03-22 05:12] LABS: BILIRUBIN,TOTAL 1.5 MG/DL (0.1-1.0)
[2023-03-22 05:13] LABS: PHOSPHORUS 2.3 MG/DL (2.3-4.7)
[2023-03-22 05:14] LABS: CREATININE SERUM 0.6 MG/DL (0.60-1.30)
[2023-03-22] MEDS ORDERED: POTASSIUM CL 10MEQ/50ML IVPB 400 ML IV ONE (05:34)
[2023-03-22] MEDS: ENOXAPARIN 60 MG/0.6 ML (LOVENOX) SYR SC SCH ×2 (05:40→17:29)
[2023-03-22] MEDS: FUROSEMIDE 40 MG/4 ML INJ (LASIX) IV SCH (05:40)
[2023-03-22] MEDS: CEFEPIME 1,000 MG/NS 50 ML IVPB IV SCH ×6 (05:41→20:16)
[2023-03-22] MEDS: POTASSIUM CL 10MEQ/50ML IVPB 50 ML IV SCH ×7 (05:48→12:45)
[2023-03-22] MEDS: MAGNESIUM 1 GM/100 ML IVPB 100 ML IV SCH (06:12)
[2023-03-22] MEDS: KCL 20 MEQ TAB (K-DUR) PO SCH (06:12)
[2023-03-22] MEDS: MICONAZOLE 2% POWDER (DESENEX AF) 90 GM TOP SCH ×2 (08:59→20:17)
--- NOTE | 2023-03-22 08:59 | Tele-ICU Progress Note ---
Subjective Date Seen by a Provider: Mar 22, 2023 Time Seen by a Provider: 08:54 Subjective/Events-last exam (Tele-ICU Physician , Progress Note ) Service provided via interactive audio and video telecommunications E-CARE system to a patient admitted to ICU bed in [facility]. Patient is seen today due to persistent need of ICU care Available chart/ vitals / labs / Images reviewed Video assessment done using teleICU camera, rest of exam as per RN Admitted with hypoxic resp failure from CHF, now on 4 lpm NC with SpO2 in high 90's, On IV Lasix 60 mg/d, On IV Cefepime for possible PNA on CXR Failed swallow evaluation today Multiple attempts to place NGT unsuccessful, family refusing PEG Sepsis Event Evaluation Height, Weight, BMI Height: 5'4.00" Weight: 182lbs. 0.6oz. 77.438386pv; 22.52 BMI Method:Stated Focused Exam Time of Focused Exam: 03:30 Exam Exam Patient acknowledged, consented, and participated in this virtual visit which was conducted using real time audio/video Vital Signs Date Time Temp Pulse Resp B/P (MAP) Pulse Ox O2 Delivery O2 Flow Rate FiO2 03/22/23 08:00 73 17 154/93 (113) 98 Simple Mask 9.00 03/22/23 07:44 36.3 03/22/23 07:06 96 Simple Mask 9.00 03/22/23 07:05 80 03/22/23 07:00 75 22 161/67 (98) 96 Simple Mask 9.00 03/22/23 06:00 63 19 134/80 (98) 95 Simple Mask 9.00 03/22/23 05:11 36.3 03/22/23 05:00 73 16 125/72 (89) 95 Simple Mask 9.00 03/22/23 04:41 36.3 03/22/23 04:00 37.0 67 23 122/72 (89) 100 Simple Mask 9.00 03/22/23 04:00 99 Simple Mask 15.00 03/22/23 03:25 Simple Mask 9.00 03/22/23 03:04 Simple Mask 9.00 03/22/23 03:00 66 19 120/63 (82) 99 Simple Mask 15.00 03/22/23 02:18 36.3 6/29/23 02:00 66 16 160/83 (108) 100 Simple Mask 15.00 03/22/23 01:48 36.3 03/22/23 01:00 80 03/22/23 01:00 70 17 157/90 (112) 99 Simple Mask 15.00 03/22/23 00:00 36.3 67 22 134/62 (86) 96 Simple Mask 15.00 03/21/23 23:28 99 Simple Mask 15.00 03/21/23 23:00 72 20 119/69 (86) 99 Simple Mask 15.00 03/21/23 22:48 36.4 03/21/23 22:18 36.4 03/21/23 22:00 78 28 146/73 (97) 98 Simple Mask 15.00 03/21/23 21:24 98 Simple Mask 15.00 03/21/23 21:00 75 25 168/96 (120) 97 Simple Mask 15.00 03/21/23 20:00 99 Simple Mask 15.00 03/21/23 20:00 77 18 157/95 (115) 99 Simple Mask 15.00 03/21/23 19:58 36.4 03/21/23 19:00 69 17 145/74 (97) 97 Simple Mask 15.00 03/21/23 19:00 80 03/21/23 18:55 Simple Mask 15.00 03/21/23 18:00 77 20 179/87 (117) 99 OxyMask 2.00 03/21/23 16:00 82 22 155/93 (113) 91 OxyMask 2.00 03/21/23 16:00 99 Simple Mask 4.00 03/21/23 15:43 36.3 03/21/23 15:08 36.8 74 97 03/21/23 15:00 81 30 153/95 (114) 96 OxyMask 2.00 03/21/23 14:40 97 Simple Mask 4.00 03/21/23 14:00 74 25 157/69 (98) 98 OxyMask 2.00 03/21/23 13:07 80 03/21/23 13:00 84 38 170/93 (118) 95 OxyMask 2.00 03/21/23 12:00 82 21 163/90 (114) 93 OxyMask 2.00 03/21/23 12:00 99 Simple Mask 4.00 03/21/23 11:15 36.8 03/21/23 11:14 36.8 03/21/23 11:00 86 35 173/79 (110) 97 OxyMask 2.00 03/21/23 10:15 71 22 156/97 (116) 90 OxyMask 2.00 I & O 03/22/23 07:00 Intake Total 655 ml Output Total 3000 ml Balance -2345 ml Height & Weight Height: 5'4.00" Weight: 182lbs. 0.6oz. 77.971704mo; 22.52 BMI Method:Stated General Appearance: Chronically ill, Thin Neck: Normal Inspection, Supple Respiratory: Lungs Clear, Decreased Breath Sounds, Other (on room air) Cardiovascular: Regular Rate, Rhythm, Systolic Murmur, Irregularly Irregular Capillary Refill: Less Than 3 Seconds Peripheral Pulses: 2+ Radial Pulses (R), 2+ Radial Pulses (L) Gastrointestinal: normal bowel sounds, non tender, soft, distended Extremity: No Pedal Edema; No Inflammation Neurologic/Psychiatric: Alert, Disoriented Skin: Normal Color, Warm/Dry Results Lab Laboratory Tests 03/21/23 04:42 03/22/23 04:45 Assessment/Plan Assessment/Plan CHF, improving, now on nasal cannula PNA, will continue IV Cefepime Potassium 3.1, has been replaced Family refusing PEG< Pt failed swallow exam Keep HOB up Has good UO Pt is DNR Critical Care: Critically Ill Patient Time spent with patient (mins): 25 PAYTON EDWARDS MD Mar 22, 2023 08:59
--- NOTE | 2023-03-22 09:20 | ST Dysphagia Evaluation ---
Speech Evaluation-General Medical Diagnosis Acute on Chronic Respiratory Failure Onset Date: Mar 21, 2023 Therapy Diagnosis Therapy Diagnosis: Impaired Oropharyngeal Swallow Function Precautions Precautions: Fall, Pressure Ulcer, Aspiration Precautions/Isolations: Aspiration, Fall Prevention, Standard Precautions, Pressure Ulcer Referral Referring Physician: Dr. Williamson Reason for Referral: Evaluation/Treatment Medical History Pertinent Medical History: Atrial Fib, Arthritis, COPD, CVA, Dementia, GERD, HTN, Renal Insufficiency Current History CXR: 03/20/2023: Stable cardiomegaly with right pectoral transvenous pacemaker. Improved but persistent bilateral perihilar and basilar opacities. The bilateral pleural effusions have redistributed versus improved. No pneumothorax. Impression: 1. Improvement in pulmonary edema. Reviewed History: Yes Speech PLF/Current-Dysphagia Prior Level of Function The patient is unable to provide past medical history of P.O. information to the clinician due to her current mentation (advanced dementia). Information of prior P.O. information was not found following a medical chart review. Subjective The patient was lying in bed, eyes opened, upon entrance to the patient's room by the clinician. The patient made eye contact and moaning sounds throughout the entirety of the clinical bedside swallowing evaluation. Comprehensible, intelligible communication was not achieved. The patient was seated upright for completion of the clinical bedside swallowing evaluation for patient safety. The RN approved the clinician's attempt to complete the assessment. The patient is currently utilizing 5L of supplemental oxygen via oxymask. At this time, the patient is N.P.O. Alternative sources of non-oral nutrition (NG, PEG, etc.) were not located throughout the clinical bedside swallowing evaluation. Cognitive Status Patient Orientation: Eyes Open Oral Motor Skills Dentition: Natural Ability to Follow Directions: Unable Simple, one step commands for completion of the oral motor exam were attempted with direct modeling. The patient was unable to follow commands at this time. Oral Expression Ability: Severe Impairment Voice Voice Phonatory-Based Quality: Breathy, Weak Voice Loudness: Severely Soft/Quiet Face Facial Symmetry: Asymmetrical (Possible right facial droop, weakness noted at rest.) Oral-Facial Assessment Oral-Facial Dentition: Normal Labial Seal Description: Weak (The patient remains with an open oral cavity throughout the exam. No closing the oral cavity and making labial contact regardless of pharyngeal swallowing attempts.) Volitional Dry Swallow: No Dysphagia Evaluation Consistencies Presented: Thin Liquid (Two ice chips, One half teaspoon of water.) The patient was unable to remove bolus consistencies from teaspoon, not displaying oral rounding. One three attempts, the clinician placed the teaspoon upside down to attempt a lingual sweep of bolus consistency. Limited to zero oral manipulation of the ice chip or teaspoon was displayed, with an open oral cavity remaining. Extremely weak, delayed and inadequate laryngeal elevation was displayed upon a spontaneous swallow response. Limited base of tongue retraction was palpated. The patient was provided two ice chips and one half teaspoon of water. While overt s/s of suspected aspiration were not displayed, the patient made no voluntary reaction to bolus material in the oral cavity or initiation of the pharyngeal swallow. The patient consistently moaned throughout the evaluation, with limited participation or purposeful action. P.O. trials were suspended at this time for patient safety. Dietary Recommendations: NPO Liquid Recommendations: NPO Recommendations: - N.P.O. - Frequent and excellent oral care to reduce the transfer of oral bacteria to the lungs should aspiration of secretions occur. - Continued discussions regarding short-term, and possible long-term, sources f or nutrition, hydration and medication. - ST to continue daily evaluations of the oropharyngeal swallow function pending the patient's appropriateness to safely participate. The clinician provided recommendations and results to the patient, however, due to current mentation comprehension is doubtful. The speech pathologist will provide recommendations and results to the RN following. Speech Short Term Goals Short Term Goals Short Term Goals 1. The patient, staff, and family members will display safe swallowing precautions with 80% accuracy, independently. Time Frame-STG: One Week. Speech Slat Pickler Goals Snf Goals 1. The patient will tolerate the least restrictive diet consistency without s/s of suspected aspiration. Time Frame: Ten Days. Speech-Plan Treatment Plan Speech Therapy Treatment Plan: Continue Plan of Care Frequency: 4 times per week Estimated Hrs Per Day: .25 hour per day Rehab Potential: Poor Pt/Family Agrees to Plan: Yes Safety Risks/Education Teaching Recipient: Patient Teaching Methods: Demonstration, Discussion Response to Teaching: Unable to Comprehend Education Topics Provided: Results, Plan of Care, Recommendations Time Speech Therapy Time In: 08:50 Speech Therapy Time Out: 09:10 DATE: Mar 22, 2023 Total Billed Time: 20 Billed Treatment Time 1DILIA DYST LOY, [facility] ST Mar 22, 2023 09:20
--- NOTE | 2023-03-22 11:23 | Progress Note - Hospitalist ---
Subjective HPI/CC On Admission Date Seen by Provider: Mar 22, 2023 Citlaly Salazar is an 83 year old female with advanced dementia and recurrent hospitalizations who presented from her longterm with hypoxia. She is a poor historian. She was found to have low oxygen saturations at [facility]. She is unable to provide any information due to her clinical status. She is sleeping. She will open her eyes but does not speak. Subjective/Events-last exam Pt more alert today. when asked hwo she is doing she states " I'm doing" but then didn't answer any other questions. No family at bedside. Still off precedex. Focused Exam Time of Focused Exam: 03:30 Objective Exam Vital Signs Vital Signs Date Time Temp Pulse Resp B/P (MAP) Pulse Ox O2 Delivery O2 Flow Rate FiO2 03/22/23 10:00 74 22 130/83 (99) 98 Simple Mask 5.00 03/22/23 07:44 36.3 03/21/23 03:04 94 Capillary Refill : Less Than 3 Seconds General Appearance: No Apparent Distress, Chronically ill Cardiovascular: Regular Rate, Rhythm, Systolic Murmur Neurologic/Psychiatric: Alert, Oriented x3 Results/Procedures Lab Laboratory Tests 03/22/23 04:45 Patient resulted labs reviewed. Imaging: Reviewed Imaging Report Assessment/Plan Assessment and Plan Assess & Plan/Chief Complaint Acute on chronic respiratory failure with hypoxia Acute on chronic HFpEF UTI Advanced dementia COPD HTN AFib Aortic stenosis off BiPAP on 5lpm Lasix- had good UOP - 2645 yesterday Cefepime for PNA TeleICU consulted Speech therapy saw and recommends NPO for now Attempted NGT yesterday but could not tolerate it ?Seizure like activity RN reports seizure like activity before CT and then sedated following CT Head negative Continue Keppra DVT ppx: Lovenox- therapeutic dosing Critical Care Critically Ill Patient ABRAHAM CIFUENTES MD Mar 22, 2023 11:23
[2023-03-22] MEDS: D5W 1000 ML IV SOLUTION 1,000 ML IV SCH ×2 (12:45→17:29)
[2023-03-23] MEDS: RT-ALBUTEROL/IPRATROPIUM 3 ML (DUONEB) VIAL INH SCH ×5 (02:49→21:38)
[2023-03-23] MEDS: CEFEPIME 1,000 MG/NS 50 ML IVPB IV SCH ×2 (03:23)
[2023-03-23 05:46] LABS: BASOPHILS % (AUTO) 0 % (0-10); EOSINOPHILS % (AUTO) 0 % (0-10); HEMATOCRIT 38 % (35-52); HEMOGLOBIN 11.2 g/dL (11.5-16.0); LYMPHOCYTES % (AUTO) 15 % (12-44); MEAN CORPUSCULAR HEMOGLOBIN 28 pg (25-34); MEAN CORPUSCULAR HGB CONC 30 g/dL (32-36); MEAN CORPUSCULAR VOLUME 96 fL (80-99); MEAN PLATELET VOLUME 11.8 fL (9.0-12.2); MONOCYTES # (AUTO) 0.5 10^3/uL (0.0-1.0); MONOCYTES % (AUTO) 8 % (0-12); NEUTROPHILS # (AUTO) 5.2 10^3/uL (1.8-7.8); NEUTROPHILS % (AUTO) 77 % (42-75); PLATELET COUNT 248 10^3/uL (130-400); WHITE BLOOD COUNT 6.7 10^3/uL (4.3-11.0)
[2023-03-23 06:03] LABS: ALBUMIN 3.2 GM/DL (3.2-4.5)
[2023-03-23 06:04] LABS: POTASSIUM 3.2 MMOL/L (3.6-5.0)
[2023-03-23 06:08] LABS: BILIRUBIN,TOTAL 1.2 MG/DL (0.1-1.0)
[2023-03-23 06:09] LABS: PHOSPHORUS 1.8 MG/DL (2.3-4.7)
[2023-03-23 06:10] LABS: CREATININE SERUM 0.57 MG/DL (0.60-1.30)
[2023-03-23 06:12] LABS: MAGNESIUM 1.9 MG/DL (1.6-2.4)
[2023-03-23] MEDS: POTASSIUM CL 10MEQ/50ML IVPB 50 ML IV SCH ×7 (06:15→13:25)
[2023-03-23] MEDS: MAGNESIUM 1 GM/100 ML IVPB 100 ML IV SCH (06:16)
[2023-03-23] MEDS: KCL 20 MEQ TAB (K-DUR) PO SCH (06:16)
[2023-03-23] MEDS ORDERED: POTASSIUM CL 10MEQ/50ML IVPB 400 ML IV ONE (06:23)
[2023-03-23] MEDS: ENOXAPARIN 60 MG/0.6 ML (LOVENOX) SYR SC SCH ×2 (06:28→19:22)
[2023-03-23] MEDS: FUROSEMIDE 40 MG/4 ML INJ (LASIX) IV SCH (06:28)
--- NOTE | 2023-03-23 09:40 | Tele-ICU Progress Note ---
Subjective Date Seen by a Provider: Mar 23, 2023 Time Seen by a Provider: 09:39 Subjective/Events-last exam (Tele-ICU Physician , Progress Note ) Service provided via interactive audio and video telecommunications E-CARE system to a patient admitted to ICU bed in [facility]. Patient is seen today due to persistent need of ICU care Available chart/ vitals / labs / Images reviewed Video assessment done using teleICU camera, rest of exam as per RN Discussed with RN Events overnight : Afebrile hemodynamically stable Respiratory - 1 l I/O = Drips: ns 60 Pressors- no Hospital course: RECENT admission 11/07 with CHF, +COVID, hypoxic respiratory failure (11/28) admitted for Acute on Chronic Respiratory failure, PNA, AECOPD,. covid 11/2022 DNR status. BIPAP levo on/off , Hb 6.7 - 1 uPCBC (02/05)dmitted with CHF/PNA, NSTEMI, aortic stenosis, afib-controlled BIPAP precedex Current admission (6.25) Admitted a 83 y/o hypoxic from the [place]. Acute on Chronic CHF and UTI. 03/21- off precedex A/P Acute resp failure, hypoxic- most likely due to CHF - NC 1 L o2 precedex OFF HFpEF - Echo on 10/09/22: LVEF 65-70%. Biatrial enlargement, mod to severe. Mild to mod MAC. Mild MR. Mod . Mild AI diuresis as per cards mod - severe aortic stenosis - monitor , as per cads note prior - -not a candidate for any intervvention - off IVF suspected UTI , ? PNA ( recent tx PNA ,RLL, HAP vs aspiration - merrem - finished 12/03 , also 11/2022 - UTI with e coli started empirically on cefepime - FINISHED COURSE Pulm HTN , -Echo on 10/09/22: PASP 70-75 mmHg - fluis status is chalenging given COPD, cronic resp failure - nebs A Fib - Sinus now - has been on OAC for stroke prophylaxis with Eliquis [employer] - on Lovenox full dose since can not swallow pills now Hypernatremia - will add H20 - by IV or PO - reassess Anemia - mild , no bleed ( on lovenox ) Advanced dementia - back to baseline status - precedex OFF Nutritiona - speech eval in progress Lines : periph , (Central Line Necessity Reviewed) Chavis: ER 03/18 OG: Nutrition: npo Analgesia: Anxiety/ delirium VTE Prophylaxis: - lovenox - full dose Stress Ulcer Prophylaxis: ppi Plans in collaboration with bedside consultants and IM MDs. Discussed with RN to reach out if any questions or concerns A total of 10 minutes of critical care time was devoted to this patient today, required to treat and/or prevent further deterioration of critical care condition ( as above ) . I am remotely monitoring this patient from another state. I am unable to do the bedside exam, and history/physical and pertinent information is taken from other notes in the computer and bedside staff. . Sepsis Event Evaluation Height, Weight, BMI Height: 5'4.00" Weight: 182lbs. 0.6oz. 77.574083lj; 22.52 BMI Method:Stated Focused Exam Time of Focused Exam: 03:30 Exam Exam Patient acknowledged, consented, and participated in this virtual visit which was conducted using real time audio/video Vital Signs Date Time Temp Pulse Resp B/P (MAP) Pulse Ox O2 Delivery O2 Flow Rate FiO2 03/23/23 09:00 78 29 157/83 (107) 93 Simple Mask 1.00 03/23/23 08:35 Simple Mask 1.00 03/23/23 08:31 96 Simple Mask 2.00 03/23/23 08:00 92 Simple Mask 2.00 03/23/23 08:00 78 29 141/83 (105) 96 Simple Mask 1.00 03/23/23 07:47 36.8 03/23/23 07:00 79 27 151/90 (126) 91 Simple Mask 1.00 03/23/23 07:00 69 03/23/23 06:00 72 29 152/89 (110) 96 Simple Mask 1.00 03/23/23 05:00 75 27 150/94 (112) 93 Simple Mask 1.00 03/23/23 04:00 65 25 118/81 (93) 96 Simple Mask 1.00 03/23/23 04:00 99 Simple Mask 3.00 03/23/23 03:00 74 23 146/79 (101) 96 Simple Mask 1.00 03/23/23 02:51 Simple Mask 1.00 03/23/23 02:49 100 Simple Mask 3.00 03/23/23 02:00 80 23 142/74 (96) 97 Simple Mask 3.00 03/23/23 01:00 60 03/23/23 01:00 60 22 122/80 (94) 100 Simple Mask 3.00 03/23/23 00:00 75 23 125/69 (87) 99 Simple Mask 3.00 03/22/23 23:58 99 Simple Mask 3.00 03/22/23 23:00 67 24 108/72 (84) 99 Simple Mask 3.00 03/22/23 22:52 Simple Mask 3.00 03/22/23 22:31 99 Simple Mask 5.00 03/22/23 22:00 75 21 136/79 (98) 99 Simple Mask 5.00 03/22/23 21:00 64 23 130/72 (91) 100 Simple Mask 5.00 03/22/23 20:00 99 Simple Mask 5.00 03/22/23 20:00 59 22 116/60 (78) 100 Simple Mask 5.00 03/22/23 19:58 36.5 03/22/23 19:00 60 03/22/23 19:00 67 18 116/81 (93) 100 Simple Mask 5.00 03/22/23 18:00 70 24 142/73 (96) 99 Simple Mask 5.00 03/22/23 17:00 72 39 143/75 (97) 99 Simple Mask 5.00 03/22/23 16:00 99 Simple Mask 9.00 03/22/23 16:00 78 132/72 (92) 99 Simple Mask 5.00 03/22/23 15:42 36.3 03/22/23 15:00 77 10 139/88 (105) 97 Simple Mask 5.00 03/22/23 14:44 92 Simple Mask 5.00 03/22/23 14:00 79 26 138/86 (103) 98 Simple Mask 5.00 03/22/23 13:08 67 03/22/23 13:00 74 24 152/102 (119) 100 Simple Mask 5.00 03/22/23 12:01 36.8 03/22/23 12:00 99 Simple Mask 9.00 03/22/23 12:00 80 28 142/82 (102) 98 Simple Mask 5.00 03/22/23 11:00 66 24 114/59 (77) 99 Simple Mask 5.00 03/22/23 10:00 74 22 130/83 (99) 98 Simple Mask 5.00 03/22/23 09:42 99 Simple Mask 5.00 I & O 03/23/23 07:00 Intake Total 0 ml Output Total 2825 ml Balance -2825 ml Height & Weight Height: 5'4.00" Weight: 182lbs. 0.6oz. 77.545807ny; 22.52 BMI Method:Stated General Appearance: Chronically ill, Thin Neck: Normal Inspection, Supple Respiratory: Lungs Clear, Decreased Breath Sounds, Other (on room air) Cardiovascular: Regular Rate, Rhythm, Systolic Murmur, Irregularly Irregular Capillary Refill: Less Than 3 Seconds Peripheral Pulses: 2+ Radial Pulses (R), 2+ Radial Pulses (L) Gastrointestinal: normal bowel sounds, non tender, soft, distended Extremity: No Pedal Edema; No Inflammation Neurologic/Psychiatric: Alert, Disoriented Skin: Normal Color, Warm/Dry Results Lab Laboratory Tests 03/22/23 04:45 03/23/23 05:04 Assessment/Plan Assessment/Plan 1 EHSAN FULTON MD Mar 23, 2023 09:40
[2023-03-23] MEDS: MICONAZOLE 2% POWDER (DESENEX AF) 90 GM TOP SCH ×2 (10:07→21:27)
--- NOTE | 2023-03-23 11:41 | Progress Note - Hospitalist ---
Subjective HPI/CC On Admission Date Seen by Provider: Mar 23, 2023 Citlaly Salazar is an 83 year old female with advanced dementia and recurrent hospitalizations who presented from her [facility] with hypoxia. She is a poor historian. She was found to have low oxygen saturations at [facility]. She is unable to provide any information due to her clinical status. She is sleeping. She will open her eyes but does not speak. Subjective/Events-last exam Pt much more alert today. No complaints. When asked if she recently had a b she said "I did." Focused Exam Time of Focused Exam: 03:30 Objective Exam Vital Signs Vital Signs Date Time Temp Pulse Resp B/P (MAP) Pulse Ox O2 Delivery O2 Flow Rate FiO2 03/23/23 11:00 80 26 163/86 (129) 94 Simple Mask 1.00 03/23/23 07:47 36.8 03/21/23 03:04 94 Capillary Refill : Less Than 3 Seconds General Appearance: No Apparent Distress, Chronically ill Respiratory: Lungs Clear, No Respiratory Distress Cardiovascular: Regular Rate, Rhythm, Systolic Murmur Gastrointestinal: Normal Bowel Sounds, Soft Extremity: No Pedal Edema Neurologic/Psychiatric: Alert, Other (disoriented but much more aware today ) Results/Procedures Lab Laboratory Tests 03/23/23 05:04 Patient resulted labs reviewed. Imaging: Reviewed Imaging Report Assessment/Plan Assessment and Plan Assess & Plan/Chief Complaint Acute on chronic respiratory failure with hypoxia Acute on chronic HFpEF UTI Advanced dementia COPD HTN AFib Aortic stenosis off BiPAP on 1lpm Lasix- had good UOP - 2900 yesterday Cefepime for PNA- completed course today- monitor off abx TeleICU consulted Speech therapy saw and recommends advancing to pureed diet with thin liquids ?Seizure like activity RN reports seizure like activity before CT and then sedated following CT Head negative Continue Keppra DVT ppx: Lovenox- therapeutic dosing Critical Care Critically Ill Patient ABRAHAM CIFUENTES MD Mar 23, 2023 11:41
[2023-03-23] MEDS: D5W 1000 ML IV SOLUTION 1,000 ML IV SCH (12:27)
--- NOTE | 2023-03-23 12:52 | Speech Therapy Daily Note ---
Speech Daily Progress Note Subjective Date Seen by Provider: Mar 23, 2023 Time Seen by Provider: 09:25 The patient was lying in bed, awake with eyes opened, upon entrance to her room by the clinician. The patient makes immediate eye contact when her name is spoken and does attempt to interact with the clinician. The patient displays increased alertness and appropriateness for P.O. intake on this date. The patient was positioned upright in bed for safe swallowing. When the clinician asked if she was hungry or thirsty she stated, "yes" and smiled at the clinician. The patient is currently receiving 1L supplemental oxygen via simple mask with SpO2% between 91% and 93% at baseline and throughout the evaluation. Objective The patient was provided thin liquid via ice chip, teaspoon and straw. Addition ally, the patient was agreeable to four ounces of applesauce via half teaspoon. The patient was able to remove items from the teaspoon and straw appropriately on this date. The patient did not display overt s/s of suspected aspiration with any consistency tested. Increased verbal cueing and encouragement was required towards the close of the session as the patient displayed increased fatigue. Recommendations: - PU4 diet consistency with thin liquids, as tolerated. - Fully upright and alert for P.O. intake. - 1:1 feeding and supervision throughout P.O. intake. - Small bites and sips, only. - Cease P.O. intake during periods of fatigue. - Crush medication and place in puree for administration, as necessary. - Monitor for s/s of suspected aspiration with P.O. intake. If demonstrated, please contact speech pathology. - Speech pathology to continue skilled speech pathology therapy to assess for diet tolerance and safety. The results and recommendations were provided to the patient and the RN immediately upon completion of the study. Assessment Assessment Current Status: Fair Progress Treatment Plan Continue Plan of Care Speech Short Term Goals Short Term Goals Short Term Goals 1. The patient, staff, and family members will display safe swallowing precautions with 80% accuracy, independently. Time Frame-STG: One Week. Speech Residential Goals Residential Goals 1. The patient will tolerate the least restrictive diet consistency without s/s of suspected aspiration. Time Frame: Ten Days. Speech-Plan Treatment Plan Speech Therapy Treatment Plan: Continue Plan of Care Treatment Duration: Mar 30, 2023 Frequency: 3 times per week Estimated Hrs Per Day: .25 hour per day Rehab Potential: Poor Pt/Family Agrees to Plan: Yes Safety Risks/Education Teaching Recipient: Patient Teaching Methods: Discussion Response to Teaching: Unable to Comprehend Education Topics Provided: Results, Recommendations, Plan of Care, Safe Swallowing Precautions Time Speech Therapy Time In: 09:25 Speech Therapy Time Out: 09:45 DATE: Mar 23, 2023 Total Billed Time: 20 Billed Treatment Time 1, DYST ESTEFANÍA VERMA Mar 23, 2023 12:52
[2023-03-23 16:30] VITALS: BP 166/76
[2023-03-23 19:40] VITALS: BP 132/69
[2023-03-23 23:12] VITALS: BP 122/69
[2023-03-24] VITALS (8 sets, daily range): BP systolic 99–143; BP diastolic 64–80
[2023-03-24] MEDS: RT-ALBUTEROL/IPRATROPIUM 3 ML (DUONEB) VIAL INH SCH ×4 (02:32→21:27)
[2023-03-24] MEDS: FUROSEMIDE 40 MG/4 ML INJ (LASIX) IV SCH (05:36)
[2023-03-24] MEDS: ENOXAPARIN 60 MG/0.6 ML (LOVENOX) SYR SC SCH (05:36)
[2023-03-24] MEDS: D5W 1000 ML IV SOLUTION 1,000 ML IV SCH ×2 (05:37→23:43)
[2023-03-24 05:50] LABS: BASOPHILS % (AUTO) 0 % (0-10); EOSINOPHILS # (AUTO) 0.1 10^3/uL (0.0-0.3); EOSINOPHILS % (AUTO) 1 % (0-10); HEMATOCRIT 37 % (35-52); HEMOGLOBIN 11.3 g/dL (11.5-16.0); LYMPHOCYTES # (AUTO) 0.9 10^3/uL (1.0-4.0); LYMPHOCYTES % (AUTO) 10 % (12-44); MEAN CORPUSCULAR HEMOGLOBIN 28 pg (25-34); MEAN CORPUSCULAR HGB CONC 30 g/dL (32-36); MEAN CORPUSCULAR VOLUME 94 fL (80-99); MEAN PLATELET VOLUME 11.6 fL (9.0-12.2); MONOCYTES # (AUTO) 0.6 10^3/uL (0.0-1.0); MONOCYTES % (AUTO) 7 % (0-12); NEUTROPHILS # (AUTO) 7.2 10^3/uL (1.8-7.8); NEUTROPHILS % (AUTO) 82 % (42-75); PLATELET COUNT 239 10^3/uL (130-400); WHITE BLOOD COUNT 8.8 10^3/uL (4.3-11.0)
[2023-03-24 06:13] LABS: ALBUMIN 3.1 GM/DL (3.2-4.5); BILIRUBIN,TOTAL 1.2 MG/DL (0.1-1.0); CALCIUM 9.2 MG/DL (8.5-10.1); CREATININE SERUM 0.52 MG/DL (0.60-1.30); MAGNESIUM 1.7 MG/DL (1.6-2.4); PHOSPHORUS 1.8 MG/DL (2.3-4.7); POTASSIUM 3.2 MMOL/L (3.6-5.0); TOTAL PROTEIN 5.8 GM/DL (6.4-8.2)
[2023-03-24] MEDS: MAGNESIUM 1 GM/100 ML IVPB 100 ML IV SCH ×4 (06:19→10:19)
[2023-03-24] MEDS: POTASSIUM CL 10MEQ/50ML IVPB 50 ML IV SCH ×9 (06:19→13:31)
[2023-03-24] MEDS: KCL 20 MEQ TAB (K-DUR) PO SCH (06:19)
[2023-03-24] MEDS: MICONAZOLE 2% POWDER (DESENEX AF) 90 GM TOP SCH ×2 (09:16→19:37)
--- NOTE | 2023-03-24 14:54 | Progress Note - Hospitalist ---
Subjective HPI/CC On Admission Date Seen by Provider: Mar 24, 2023 Citlaly Salazar is an 83 year old female with advanced dementia and recurrent hospitalizations who presented from her [facility] with hypoxia. She is a poor historian. She was found to have low oxygen saturations at [facility]. She is unable to provide any information due to her clinical status. She is sleeping. She will open her eyes but does not speak. Subjective/Events-last exam Pt more alert today. Brother and nephew at bedside. She denies any needs. Focused Exam Time of Focused Exam: 03:30 Objective Exam Vital Signs Vital Signs Date Time Temp Pulse Resp B/P (MAP) Pulse Ox O2 Delivery O2 Flow Rate FiO2 03/24/23 11:37 36.1 77 18 134/80 (98) 95 Nasal Cannula 1.00 03/21/23 03:04 94 Capillary Refill : Less Than 3 Seconds General Appearance: No Apparent Distress, Chronically ill Respiratory: Lungs Clear, No Respiratory Distress Cardiovascular: Regular Rate, Rhythm, Systolic Murmur Gastrointestinal: Normal Bowel Sounds, Soft Neurologic/Psychiatric: Alert, Oriented x3 Results/Procedures Lab Laboratory Tests 03/24/23 05:30 Patient resulted labs reviewed. Imaging: Reviewed Imaging Report Assessment/Plan Assessment and Plan Assess & Plan/Chief Complaint Acute on chronic respiratory failure with hypoxia Acute on chronic HFpEF UTI Advanced dementia COPD HTN AFib Aortic stenosis on 1lpm Lasix- had good UOP - 820 yesterday Cefepime course completed Speech therapy Resume home meds as she can now take PO ?Seizure like activity RN reports seizure like activity before CT and then sedated following CT Head negative Continue Keppra DVT ppx: Lovenox- resume home eliquis Critical Care Critically Ill Patient ABRAHAM CIFUENTES MD Mar 24, 2023 14:54
[2023-03-24] MEDS ORDERED: ALPRAZolam 0.25 MG (XANAX) TAB PO PRN (15:00)
[2023-03-24] MEDS ORDERED: HYDROcodone/APAP 5 MG/325 MG (LORTAB) TAB PO PRN (15:00)
[2023-03-24] MEDS ORDERED: NON-FORMULARY MEDICATION 1 EA EA (Magnesium Hydroxide (Milk of Magnesia) 30 ML) PO PRN (15:00)
[2023-03-24] MEDS ORDERED: MILK OF MAGNESIA 400 MG/5 ML 30 ML UDC PO PRN (15:30)
[2023-03-24] MEDS: ASCORBIC ACID (VIT C) 500 MG TABLET PO SCH (17:33)
[2023-03-24] MEDS: APIXABAN 5 MG (ELIQUIS) TABLET PO SCH (17:33)
[2023-03-24] MEDS: rOPINIRole 1 MG (REQUIP) TABLET PO SCH (19:36)
[2023-03-24] MEDS: GABAPENTIN 300 MG (NEURONTIN) CAP PO SCH (19:37)
[2023-03-24] MEDS: AMITRIPTYLINE 25 MG (ELAVIL) TAB PO SCH (19:37)
[2023-03-24] MEDS: risperiDONE 0.5 MG (RisperDAL) TABLET PO SCH (19:37)
[2023-03-24] MEDS: DOCUSATE SODIUM 100 MG (COLACE) CAP PO SCH (19:37)
[2023-03-24] MEDS: LATANOPROST 0.005% (XALATAN) OPHTH SOLN 2.5 ML OU SCH (19:38)
[2023-03-24] MEDS ORDERED: NON-FORMULARY MEDICATION 1 EA EA (Ascorbate Calcium (Vitamin C) 500 MG) PO SCH (21:00)
[2023-03-25] VITALS (7 sets, daily range): BP systolic 87–138; BP diastolic 52–94
[2023-03-25] MEDS: RT-ALBUTEROL/IPRATROPIUM 3 ML (DUONEB) VIAL INH SCH ×4 (02:55→21:59)
[2023-03-25 05:44] LABS: BASOPHILS % (AUTO) 0 % (0-10); EOSINOPHILS # (AUTO) 0.1 10^3/uL (0.0-0.3); EOSINOPHILS % (AUTO) 1 % (0-10); HEMATOCRIT 36 % (35-52); HEMOGLOBIN 11.1 g/dL (11.5-16.0); LYMPHOCYTES % (AUTO) 14 % (12-44); MEAN CORPUSCULAR HEMOGLOBIN 29 pg (25-34); MEAN CORPUSCULAR HGB CONC 31 g/dL (32-36); MEAN CORPUSCULAR VOLUME 93 fL (80-99); MEAN PLATELET VOLUME 12.2 fL (9.0-12.2); MONOCYTES # (AUTO) 0.7 10^3/uL (0.0-1.0); MONOCYTES % (AUTO) 11 % (0-12); NEUTROPHILS # (AUTO) 5.1 10^3/uL (1.8-7.8); NEUTROPHILS % (AUTO) 73 % (42-75); PLATELET COUNT 242 10^3/uL (130-400)
[2023-03-25 06:01] LABS: POTASSIUM 3.5 MMOL/L (3.6-5.0)
[2023-03-25 06:02] LABS: CALCIUM 8.6 MG/DL (8.5-10.1)
[2023-03-25 06:03] LABS: TOTAL PROTEIN 5.4 GM/DL (6.4-8.2)
[2023-03-25 06:05] LABS: BILIRUBIN,TOTAL 1.5 MG/DL (0.1-1.0)
[2023-03-25 06:07] LABS: CREATININE SERUM 0.51 MG/DL (0.60-1.30)
[2023-03-25] MEDS: POTASSIUM CL 10MEQ/50ML IVPB 50 ML IV SCH ×4 (06:09→08:16)
[2023-03-25] MEDS: KCL 20 MEQ TAB (K-DUR) PO SCH ×2 (06:09→06:20)
[2023-03-25 06:10] LABS: MAGNESIUM 2.4 MG/DL (1.6-2.4)
[2023-03-25] MEDS: MAGNESIUM 1 GM/100 ML IVPB 100 ML IV SCH (06:14)
[2023-03-25] MEDS: APIXABAN 5 MG (ELIQUIS) TABLET PO SCH ×2 (06:20→17:32)
[2023-03-25] MEDS ORDERED: POTASSIUM CL 10MEQ/50ML IVPB 50 ML IV SCH (07:00)
[2023-03-25] MEDS: DOCUSATE SODIUM 100 MG (COLACE) CAP PO SCH ×2 (08:23→20:43)
[2023-03-25] MEDS: GABAPENTIN 300 MG (NEURONTIN) CAP PO SCH ×3 (08:23→20:43)
[2023-03-25] MEDS: lisINopril 20 MG (PRINIVIL) TABLET PO SCH (08:23)
[2023-03-25] MEDS: ASPIRIN 81 MG CHEW (CHILDREN'S ASA) PO SCH (08:23)
[2023-03-25] MEDS: ASCORBIC ACID (VIT C) 500 MG TABLET PO SCH ×2 (08:23→17:32)
[2023-03-25] MEDS: meTOproloL SUCCINATE 50 MG (TOPROL XL) TAB PO SCH (08:23)
[2023-03-25] MEDS: VITAMIN D3 25 MCG (1,000 UNITS) TABLET PO SCH (08:24)
[2023-03-25] MEDS: FUROSEMIDE 40 MG (LASIX) TAB PO SCH (08:24)
[2023-03-25] MEDS: MICONAZOLE 2% POWDER (DESENEX AF) 90 GM TOP SCH ×2 (08:24→20:43)
[2023-03-25] MEDS ORDERED: NON-FORMULARY MEDICATION 1 EA EA (Cholecalciferol (Vitamin D3) (Vitamin D3) 25 MCG) PO SCH (09:00)
[2023-03-25] MEDS ORDERED: PRESERVISION AREDS SOFTGEL (BAUSH & LOMB) PO SCH (09:00)
[2023-03-25] MEDS: FLUTICASONE/VILANTEROL 200 MCG 14'S (BREO) IH SCH (11:03)
--- NOTE | 2023-03-25 12:48 | Progress Note - Hospitalist ---
Subjective HPI/CC On Admission Date Seen by Provider: Mar 25, 2023 Citlaly Salazar is an 83 year old female with advanced dementia and recurrent hospitalizations who presented from her detention with hypoxia. She is a poor historian. She was found to have low oxygen saturations at [facility]. She is unable to provide any information due to her clinical status. She is sleeping. She will open her eyes but does not speak. Subjective/Events-last exam Pt reports doing ok. Quite sleepy but just had bath and tired and easily wakes up. About to get a breathing treatment. Focused Exam Time of Focused Exam: 03:30 Objective Exam Vital Signs Vital Signs Date Time Temp Pulse Resp B/P (MAP) Pulse Ox O2 Delivery O2 Flow Rate FiO2 03/25/23 11:41 36.2 66 18 98/60 (73) 93 Nasal Cannula 1.50 03/21/23 03:04 94 Capillary Refill : Less Than 3 Seconds General Appearance: No Apparent Distress, Chronically ill Respiratory: Lungs Clear, No Respiratory Distress Cardiovascular: Regular Rate, Rhythm, Systolic Murmur Neurologic/Psychiatric: Alert Results/Procedures Lab Laboratory Tests 03/25/23 05:10 Patient resulted labs reviewed. Imaging: Reviewed Imaging Report Assessment/Plan Assessment and Plan Assess & Plan/Chief Complaint Acute on chronic respiratory failure with hypoxia Acute on chronic HFpEF UTI Advanced dementia COPD HTN AFib Aortic stenosis on 1lpm Lasix- continues to have good UOP Cefepime course completed Speech therapy Continue home meds as she can now take PO ?Seizure like activity RN reports seizure like activity before CT and then sedated following CT Head negative Continue Keppra DVT ppx: Eliquis Critical Care Critically Ill Patient ABRAHAM CIFEUNTES MD Mar 25, 2023 12:48
[2023-03-25] MEDS: D5W 1000 ML IV SOLUTION 1,000 ML IV SCH (17:32)
[2023-03-25] MEDS: risperiDONE 0.5 MG (RisperDAL) TABLET PO SCH (20:43)
[2023-03-25] MEDS: rOPINIRole 1 MG (REQUIP) TABLET PO SCH (20:43)
[2023-03-25] MEDS: AMITRIPTYLINE 25 MG (ELAVIL) TAB PO SCH (20:43)
[2023-03-25] MEDS: LATANOPROST 0.005% (XALATAN) OPHTH SOLN 2.5 ML OU SCH (20:44)
[2023-03-26] VITALS: BP 98/56
[2023-03-26 03:19] VITALS: BP 99/56
[2023-03-26] MEDS: RT-ALBUTEROL/IPRATROPIUM 3 ML (DUONEB) VIAL INH SCH ×2 (03:50→07:28)
[2023-03-26 03:55] VITALS: BP 99/56
[2023-03-26 06:10] LABS: BASOPHILS % (AUTO) 0 % (0-10); EOSINOPHILS # (AUTO) 0.1 10^3/uL (0.0-0.3); EOSINOPHILS % (AUTO) 2 % (0-10); HEMATOCRIT 38 % (35-52); HEMOGLOBIN 11.7 g/dL (11.5-16.0); LYMPHOCYTES # (AUTO) 1.4 10^3/uL (1.0-4.0); LYMPHOCYTES % (AUTO) 19 % (12-44); MEAN CORPUSCULAR HEMOGLOBIN 29 pg (25-34); MEAN CORPUSCULAR HGB CONC 31 g/dL (32-36); MEAN CORPUSCULAR VOLUME 93 fL (80-99); MEAN PLATELET VOLUME 12.6 fL (9.0-12.2); MONOCYTES # (AUTO) 0.8 10^3/uL (0.0-1.0); MONOCYTES % (AUTO) 10 % (0-12); NEUTROPHILS # (AUTO) 5.2 10^3/uL (1.8-7.8); NEUTROPHILS % (AUTO) 69 % (42-75); PLATELET COUNT 249 10^3/uL (130-400); WHITE BLOOD COUNT 7.5 10^3/uL (4.3-11.0)
[2023-03-26 06:31] LABS: BILIRUBIN,TOTAL 1.3 MG/DL (0.1-1.0); CALCIUM 8.9 MG/DL (8.5-10.1); CREATININE SERUM 0.57 MG/DL (0.60-1.30); MAGNESIUM 2.1 MG/DL (1.6-2.4); PHOSPHORUS 2.8 MG/DL (2.3-4.7); POTASSIUM 3.7 MMOL/L (3.6-5.0); TOTAL PROTEIN 5.5 GM/DL (6.4-8.2)
[2023-03-26] MEDS: MAGNESIUM 1 GM/100 ML IVPB 100 ML IV SCH (06:32)
[2023-03-26] MEDS: KCL 20 MEQ TAB (K-DUR) PO SCH ×2 (06:33→06:39)
[2023-03-26] MEDS: POTASSIUM CL 10MEQ/50ML IVPB 50 ML IV SCH ×3 (06:33→07:41)
[2023-03-26] MEDS: APIXABAN 5 MG (ELIQUIS) TABLET PO SCH (06:38)
[2023-03-26 07:07] VITALS: BP 127/60
[2023-03-26] MEDS: FLUTICASONE/VILANTEROL 200 MCG 14'S (BREO) IH SCH (07:31)
[2023-03-26] MEDS: FUROSEMIDE 40 MG (LASIX) TAB PO SCH (08:35)
[2023-03-26] MEDS: ASPIRIN 81 MG CHEW (CHILDREN'S ASA) PO SCH (08:35)
[2023-03-26] MEDS: VITAMIN D3 25 MCG (1,000 UNITS) TABLET PO SCH (08:35)
[2023-03-26] MEDS: DOCUSATE SODIUM 100 MG (COLACE) CAP PO SCH (08:35)
[2023-03-26] MEDS: ASCORBIC ACID (VIT C) 500 MG TABLET PO SCH (08:36)
[2023-03-26] MEDS: MICONAZOLE 2% POWDER (DESENEX AF) 90 GM TOP SCH (08:36)
[2023-03-26] MEDS: GABAPENTIN 300 MG (NEURONTIN) CAP PO SCH ×2 (08:36→13:23)
[2023-03-26] MEDS: lisINopril 20 MG (PRINIVIL) TABLET PO SCH (08:36)
[2023-03-26] MEDS: meTOproloL SUCCINATE 50 MG (TOPROL XL) TAB PO SCH (08:40)
[2023-03-26 11:01] VITALS: BP 112/60
[2023-03-26 11:18] VITALS: BP 112/60
[2023-03-26] MEDS ORDERED: LEVE500T99 PO (17:47)
--- NOTE | 2023-03-26 17:53 | Discharge Summary ---
Discharge Summary Hospital Course Problems/Dx: (1) Acute on chronic respiratory failure with hypoxemia Status: Acute (2) Acute on chronic heart failure with preserved ejection fraction (HFpEF) Status: Acute (3) UTI (urinary tract infection) Status: Acute (4) Advanced dementia Status: Chronic (5) Poor prognosis Status: Acute (6) Observed seizure-like activity Status: Acute Hospital Course Date of Admission: Mar 18, 2023 at 04:42 Admission Diagnosis : Acute on chronic respiratory failure with hypoxia due to HFpEF Family Physician/Provider: Jason Johnson MD Date of Discharge: 03/26/23 Discharge Diagnosis: Acute on chronic respiratory failure with hypoxia due to HFpEF Hospital Course: Citlaly Salazar is an 83 year old female with advanced dementia who was admitted with acute on chronic respiratory failure with hypoxia. She required ICU admission. She was on BiPAP initially. She was diuresed. She was treated for acute on chronic HFpEF. She also had an Actinomyces UTI and received a course of antibiotics. She reportedly had seizure like activity and was started on Keppra. She returned to her baseline. She was only requiring 1 L oxygen at the time of discharge. She was discharged back to [facility] in stable condition. Labs and Pending Lab Test: Laboratory Tests 03/26/23 05:04: White Blood Count 7.5, Red Blood Count 4.05, Hemoglobin 11.7, Hematocrit 38, Mean Corpuscular Volume 93, Mean Corpuscular Hemoglobin 29, Mean Corpuscular Hemoglobin Concent 31L, Red Cell Distribution Width 17.2H, Platelet Count 249, Mean Platelet Volume 12.6H, Immature Granulocyte % (Auto) 1, Neutrophils (%) (Auto) 69, Lymphocytes (%) (Auto) 19, Monocytes (%) (Auto) 10, Eosinophils (%) (Auto) 2, Basophils (%) (Auto) 0, Neutrophils # (Auto) 5.2, Lymphocytes # (Auto) 1.4, Monocytes # (Auto) 0.8, Eosinophils # (Auto) 0.1, Basophils # (Auto) 0.0, Immature Granulocyte # (Auto) 0.1, Sodium Level 138, Potassium Level 3.7, Chloride Level 99, Carbon Dioxide Level 32, Anion Gap 7, Blood Urea Nitrogen 16, Creatinine 0.57L, Estimat Glomerular Filtration Rate 91, BUN/Creatinine Ratio 28, Glucose Level 100, Calcium Level 8.9, Corrected Calcium 9.7, Phosphorus Level 2.8, Magnesium Level 2.1, Total Bilirubin 1.3H, Aspartate Amino Transf (AST/SGOT) 13, Alanine Aminotransferase (ALT/SGPT) 7, Alkaline Phosphatase 61, Total Protein 5.5L, Albumin 3.0L Microbiology 03/18/23 MRSA Screen - Final, Complete MRSA not isolated 03/18/23 Blood Culture - Final, Complete No growth 03/18/23 Urine Culture - Final, Complete Actinomyces europaeus Home Meds Active Reported Risperidone 0.5 Mg Tablet 0.5 Mg PO HS Ferrous Sulfate 325 Mg (65 Mg Iron) Tablet 325 Mg PO BID Preservision Areds Softgel (Vit A/C/E/Zinc/Co) 4,296-226 Capsule 1 Each PO DAILY Ventolin Hfa (Albuterol Sulfate) 90 Mcg Hfa.aer.ad 2 Puff INH Q6H PRN Metoprolol Succinate 50 Mg Tab.er.24h 50 Mg PO DAILY Aspirin 81 Mg Tab.chew 81 Mg PO DAILY Lisinopril 20 Mg Tablet 20 Mg PO DAILY HOLD FOR SBP LESS THAN 100 AND DBP LESS THAN 60 Docusate Sodium 100 Mg Capsule 100 Mg PO BID Milk of Magnesia (Magnesium Hydroxide) 2,400 Mg/10 Ml Oral.susp 30 Ml PO DAILY PRN Breo Ellipta 200-25 Mcg INH (Fluticasone/Vilanterol) 200 Mcg-25 Mcg/Dose Blst.w.dev 1 Puff INH DAILY RINSE AND SPIT MOUTH WITH WATER AFTER EACH USE Vitamin C (Ascorbate Calcium) 500 Mg Tablet 500 Mg PO BID Xanax (Alprazolam) 0.25 Mg Tablet 0.25 Mg PO HS Tramadol HCl 50 Mg Tablet 50 Mg PO Q12H PRN Neurontin (Gabapentin) 300 Mg Capsule 300 Mg PO TID Hydrocodone-Acetamin 5-325 mg (Hydrocodone/Acetaminophen) 5 Mg-325 Mg Tablet 1 Tab PO Q6H PRN Vitamin D3 (Cholecalciferol (Vitamin D3)) 25 Mcg (1000 Unit) Capsule 25 Mcg PO DAILY Furosemide 40 Mg Tablet 60 Mg PO DAILY TAKES 1 & (20MG) TABS Potassium Chloride 20 Meq Tab.er.prt 20 Meq PO DAILY Eliquis (Apixaban) 5 Mg Tablet 5 Mg PO Q12H Citalopram HBr (Citalopram Hydrobromide) 10 Mg Tablet 10 Mg PO HS Xalatan (Latanoprost) 2.5 Ml Drops 1 Drop OU HS Amitriptyline HCl 25 Mg Tablet 25 Mg PO HS Ropinirole HCl 1 Mg Tablet 1 Mg PO HS Assessment/Pt Instructions See instructions Discharge Planning: >30 minutes discharge planning Discharge Instructions Activity as Tolerated: Yes Discharge Physical Examination Vital Signs Vital Signs Date Time Temp Pulse Resp B/P (MAP) Pulse Ox O2 Delivery O2 Flow Rate FiO2 03/26/23 11:18 36.7 60 16 112/60 97 Nasal Cannula 1.00 03/21/23 03:04 94 General Appearance: No Apparent Distress, Chronically ill Respiratory: Lungs Clear, No Respiratory Distress Cardiovascular: Regular Rate, Rhythm, No Murmur Gastrointestinal: Normal Bowel Sounds, Soft Extremity: Normal Inspection, No Pedal Edema Skin: Normal Color, Warm/Dry Neurologic/Psychiatric: Alert, Disoriented Allergies: Coded Allergies: doxycycline (Unverified Allergy, Mild, 11/26/17) Copy Copies To 1: JASON JOHNSON MD Discharge Summary Date of Admission Mar 18, 2023 at 04:42 Date of Discharge Mar 26, 2023 at 15:30 Discharge Date: Mar 26, 2023 Discharge Time: 15:30 Admission Diagnosis Acute on chronic respiratory failure with hypoxia Discharge Diagnosis Acute on chronic respiratory failure with hypoxia Acute on chronic HFpEF UTI Advanced dementia COPD HTN AFib Aortic stenosis Seizure like activity (1) Acute on chronic respiratory failure with hypoxemia Status: Acute (2) Acute on chronic heart failure with preserved ejection fraction (HFpEF) Status: Acute (3) UTI (urinary tract infection) Status: Acute (4) Advanced dementia Status: Chronic (5) Poor prognosis Status: Acute MARCO A CÁRDENAS MD Mar 26, 2023 17:53
== END 2023-03-26 15:30 | DRG 291 ==
LOC: EDUNIT# 02:23 → ER 02:24 → ICU 04:42 → 4TH 03-23 16:00
PROVIDERS: ADMIT Internal Medicine; ATTEND Internal Medicine
DX: I11.0 Hypertensive heart disease with heart failure (principal); A41.9 Sepsis, unspecified organism; I50.33 Acute on chronic diastolic (congestive) heart failure; J96.21 Acute and chronic respiratory failure with hypoxia; G93.41 Metabolic encephalopathy; J18.9 Pneumonia, unspecified organism; N39.0 Urinary tract infection, site not specified; I48.20 Chronic atrial fibrillation, unspecified; E87.0 Hyperosmolality and hypernatremia; Z66 Do not resuscitate; F03.90 Unspecified dementia, unspecified severity, without behavioral disturbance, psychotic disturbance, mood disturbance, and anxiety; J44.9 Chronic obstructive pulmonary disease, unspecified; I35.0 Nonrheumatic aortic (valve) stenosis; Z95.0 Presence of cardiac pacemaker; E78.00 Pure hypercholesterolemia, unspecified; I48.91 Unspecified atrial fibrillation; Z86.73 Personal history of transient ischemic attack (TIA), and cerebral infarction without residual deficits; K21.9 Gastro-esophageal reflux disease without esophagitis; M19.90 Unspecified osteoarthritis, unspecified site; G89.29 Other chronic pain; M54.9 Dorsalgia, unspecified; F41.9 Anxiety disorder, unspecified; F32.A Depression, unspecified; H40.9 Unspecified glaucoma; I27.20 Pulmonary hypertension, unspecified; D64.9 Anemia, unspecified; Z79.82 Long term (current) use of aspirin; Z79.899 Other long term (current) drug therapy; R56.9 Unspecified convulsions
CPT/HCPCS: 36415; 36600; 51702; 70450; 71045; 80053; 81000; 82805; 82947; 83605; 83735; 83880; 84100; 85007; 85025; 85027; 85610; 85730; 87040; 87081; 87088; 87491; 87591; 94640; 94660; 94760; 96361; 96365; 96375

== ENCOUNTER → 2023-04-03 | Outpatient (CLI) | payer MEDICARE, MEDICAID ==
[~2023-04-03] MED LIST changes: +LEVE500T99 PO
[2023-04-03 13:21] LABS: POTASSIUM 4.1 MMOL/L (3.6-5.0)
[2023-04-03 13:22] LABS: BILIRUBIN,TOTAL 0.5 MG/DL (0.1-1.0); CALCIUM 9.3 MG/DL (8.5-10.1); CREATININE SERUM 0.58 MG/DL (0.60-1.30); HEMATOCRIT 37 % (35-52); HEMOGLOBIN 11.5 g/dL (11.5-16.0); LYMPHOCYTES % (AUTO) 10 % (12-44); MEAN CORPUSCULAR HEMOGLOBIN 29 pg (25-34); MEAN CORPUSCULAR HGB CONC 31 g/dL (32-36); MEAN CORPUSCULAR VOLUME 92 fL (80-99); MEAN PLATELET VOLUME 11.1 fL (9.0-12.2); MONOCYTES % (AUTO) 7 % (0-12); NEUTROPHILS % (AUTO) 82 % (42-75); PLATELET COUNT 323 10^3/uL (130-400)
[2023-04-03 13:23] LABS: BASOPHILS % (AUTO) 0 % (0-10); EOSINOPHILS # (AUTO) 0.1 10^3/uL (0.0-0.3); EOSINOPHILS % (AUTO) 1 % (0-10); LYMPHOCYTES # (AUTO) 1.2 X 10^3 (1.0-4.0); MONOCYTES # (AUTO) 0.8 X 10^3 (0.0-1.0); NEUTROPHILS # (AUTO) 9.9 X 10^3 (1.8-7.8)
[2023-04-03 13:33] LABS: ERYTHROCYTE SEDIMENTATION RATE 20 MM/HR (0-30)
== END ==
LOC: WOUNDCARE 09:42
PROVIDERS: ATTEND Family Medicine
DX: I96 Gangrene, not elsewhere classified (principal); L89.313 Pressure ulcer of right buttock, stage 3; L89.150 Pressure ulcer of sacral region, unstageable; L24.A2 Irritant contact dermatitis due to fecal, urinary or dual incontinence; M62.81 Muscle weakness (generalized); F03.90 Unspecified dementia, unspecified severity, without behavioral disturbance, psychotic disturbance, mood disturbance, and anxiety; E55.9 Vitamin D deficiency, unspecified; D50.9 Iron deficiency anemia, unspecified; I48.20 Chronic atrial fibrillation, unspecified; I95.0 Idiopathic hypotension; A49.9 Bacterial infection, unspecified; R64 Cachexia
CPT/HCPCS: 11042; 80053; 82728; 83540; 83550; 84134; 85025; 85652; 86141; 87070; 87205; 97597; G0463; 36415

== ENCOUNTER 2023-04-16 13:25 | Inpatient (IN) | payer MEDICARE, MEDICAID ==
[~2023-04-16] VITALS: Ht 160 cm; Wt 66.2 kg
[~2023-04-16 13:25] MED LIST changes: +GABA-486 PO; +LEVE500T6 PO; -ROSU20TA32 PO; +ROSU20TA73 PO; +SODI475I IR
--- NOTE | 2023-04-16 13:43 | ED General ---
General Chief Complaint: Altered Mental Status Stated Complaint: ALTERED MENTAL STATUS Nursing Triage Note: PT ARRIVED PER EMS FROM [facility]. PT PAST DAY HAS BEEN NOT EATING, DRINKING OR TAKING MEDS. PT IS BED BOUND HAS LARGE ULCER ON R BUTTOCKS INTO SACRAL AREA. PT HAS LEDESMA W DARK URINE IN BAG. PT HAS BILATERAL HEEL PROTCTORS IN PLACE. PT HAS RECENTLY BEEN DISCHARGED FROM HOSP. Source of Information: EMS, Old Records Exam Limitations: No Limitations History of Present Illness Date Seen by Provider: Apr 16, 2023 Time Seen by Provider: 13:20 Initial Comments 83-year-old female presents to the emergency department today from [facility]. She has end-stage dementia and was recently admitted to our hospital for septic shock. She was discharged on 04/13. She has a large sacral ulcer with concern for osteomyelitis. Today her sons came to visit her and noted that she was not responding to them as she normally would. Per nursing staff she has not been taking her medications or drinking. She is typically bedbound. They have also noted some dark urine in her catheter bag. Sons have been reluctant to hospice care. No current fevers per nursing facility records or EMS report. All other systems reviewed and negative except documented per HPI. Voice recognition software was used to help create this chart Allergies and Home Medications Allergies Coded Allergies: doxycycline (Unverified Allergy, Mild, 11/26/17) Patient Home Medication List Home Medication List Reviewed: Yes Albuterol Sulfate (Ventolin Hfa) 90 Mcg Hfa.aer.ad, 2 PUFF INH Q6H PRN for SHORTNESS OF BREATH, (Reported) Entered as Reported by: ABHIJEET FELIPE on 11/29/22 1406 Alprazolam (Xanax) 0.25 Mg Tablet, 0.25 MG PO HS, (Reported) Entered as Reported by: ABHIJEET FELIPE on 06/01/22 1114 Amitriptyline HCl (Amitriptyline HCl) 25 Mg Tablet, 25 MG PO HS, (Reported) Entered as Reported by: SREEDHAR MCMANUS on 09/26/20 1610 Apixaban (Eliquis) 5 Mg Tablet, 5 MG PO Q12H, (Reported) Entered as Reported by: ABHIJEET FELIPE on 02/24/21 1308 Ascorbate Calcium (Vitamin C) 500 Mg Tablet, 500 MG PO BID, (Reported) Entered as Reported by: ABHIJEET FELIPE on 06/01/22 1114 Aspirin (Aspirin) 81 Mg Tab.chew, 81 MG PO DAILY, (Reported) Entered as Reported by: ABHIJEET FELIPE on 11/08/22 1134 Cholecalciferol (Vitamin D3) (Vitamin D3) 25 Mcg (1000 Unit) Capsule, 25 MCG PO DAILY, (Reported) Entered as Reported by: ABHIJEET FELIPE on 03/28/22 1424 Citalopram Hydrobromide (Citalopram HBr) 10 Mg Tablet, 10 MG PO HS, (Reported) Entered as Reported by: ABHIJEET FELIPE on 02/24/21 1308 Docusate Sodium (Docusate Sodium) 100 Mg Capsule, 100 MG PO BID, (Reported) Entered as Reported by: ABHIJEET FELIPE on 06/01/22 1114 Ferrous Sulfate (Ferrous Sulfate) 325 Mg (65 Mg Iron) Tablet, 325 MG PO BID, (Reported) Entered as Reported by: ABHIJEET FELIPE on 02/05/23 1259 Fluticasone/Vilanterol (Breo Ellipta 200-25 Mcg INH) 200 Mcg-25 Mcg/Dose Blst.w.dev, 1 PUFF INH DAILY, (Reported) Entered as Reported by: ABHIJEET FELIPE on 06/01/22 1114 Furosemide (Furosemide) 40 Mg Tablet, 60 MG PO DAILY, (Reported) Entered as Reported by: ABHIJEET FELIPE on 03/28/22 1156 Gabapentin (Gabapentin) 100 Mg Capsule, 100 MG PO BID Prescribed by: MARCO A CÁRDENAS on 04/13/23 1048 Hydrocodone/Acetaminophen (Hydrocodone-Acetamin 5-325 mg) 5 Mg-325 Mg Tablet, 1 TAB PO Q6H PRN for PAIN-MODERATE (5-7), (Reported) Entered as Reported by: ABHIJEET FELIPE on 06/01/22 1114 Latanoprost (Xalatan) 2.5 Ml Drops, 1 DROP OU HS, (Reported) Entered as Reported by: ABHIJEET FELIPE on 09/28/20 0910 Levetiracetam (Levetiracetam) 500 Mg Tablet, 500 MG PO BID Prescribed by: MARCO A CÁRDENAS on 04/13/23 1048 Lisinopril (Lisinopril) 20 Mg Tablet, 20 MG PO DAILY, (Reported) Entered as Reported by: ABHIJEET FELIPE on 11/08/22 1134 Magnesium Hydroxide (Milk of Magnesia) 2,400 Mg/10 Ml Oral.susp, 30 ML PO DAILY PRN for CONSTIPATION-7TH LINE, (Reported) Entered as Reported by: ABHIJEET FELIPE on 06/01/22 1114 Menthol (Biofreeze) 4 % Gel..ml., 1 APPLIC TP TID, (Reported) Entered as Reported by: ABHIJEET FELIPE on 04/04/23 1151 Menthol (Biofreeze) 4 % Gel..ml., 1 APPLIC TP DAILY PRN for PAIN-BREAKTHROUGH, (Reported) Entered as Reported by: ABHIJEET FELIPE on 04/04/23 1151 Metoprolol Succinate (Metoprolol Succinate) 50 Mg Tab.er.24h, 50 MG PO DAILY, (Reported) Entered as Reported by: ABHIJEET FELIPE on 11/08/22 1134 Potassium Chloride (Potassium Chloride) 20 Meq Tab.er.prt, 20 MEQ PO DAILY, (Reported) Entered as Reported by: ABHIJEET FELIPE on 03/28/22 1156 Risperidone (Risperidone) 0.5 Mg Tablet, 0.5 MG PO HS, (Reported) Entered as Reported by: ABHIJEET FELIPE on 02/05/23 1259 Ropinirole HCl (Ropinirole HCl) 1 Mg Tablet, 1 MG PO HS, (Reported) Entered as Reported by: ESTEFANÍA FIORE on 11/26/17 0843 Sodium Chlor/Hypochlorous Acid (Vashe Wound Therapy Solution) 0.033 % Irrig.soln, 0 ML IR DAILY PRN for IRRIGATION Prescribed by: MARCO A CÁRDENAS on 04/13/23 1048 Tramadol HCl (Tramadol HCl) 50 Mg Tablet, 50 MG PO Q12H PRN for PAIN-MODERATE (5-7), (Reported) Entered as Reported by: ABHIJEET FELIPE on 06/01/22 1114 Vit A/C/E/Zinc/Co (Preservision Areds Softgel) 4,296-226 Capsule, 1 EACH PO DAILY, (Reported) Entered as Reported by: ABHIJEET FELIPE on 02/05/23 1259 Discontinued Medications Gabapentin (Neurontin) 300 Mg Capsule, 300 MG PO TID, (Reported) Entered as Reported by: ABHIJEET FELIPE on 06/01/22 1114 Review of Systems Review of Systems Constitutional: see HPI Past Ncztvxp-Yisckw-Emxvod Hx Patient Social History Tobacco Use?: No Use of E-Cig and/or Vaping dev: No Substance use?: No Alcohol Use?: No Immunizations Up To Date First/Initial COVID19 Vaccinat: 2020 Second COVID19 Vaccination Ronald: 2020 Third COVID19 Vaccination Date: 2020 Seasonal Allergies Seasonal Allergies: Yes Past Medical History Surgery/Hospitalization HX: COPD, PACEMAKER, resp failure, ANEMIA, CHF, PNA, RENAL FAILURE, HTN, AFIB, UTI Surgeries: Yes Section, Pacemaker, Tonsillectomy Respiratory: Yes Asthma, Sleep Apnea, COPD Currently Using CPAP: No Cardiac: Yes (CHF; LBBB) Atrial Fibrillation, High Cholesterol, Hypertension, Valvular Heart Disease Neurological: Yes (rest less leg syndrome) Dementia, Stroke Reproductive Disorders: No Sexually Transmitted Disease: No HIV/AIDS: No Genitourinary: Yes Renal Failure Gastrointestinal: Yes Gastroesophageal Reflux, Chronic Constipation Musculoskeletal: Yes (WHEELCHAIR BOUND) Arthritis, Chronic Back Pain Endocrine: No 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 0.6oz. 77.525957uc; 24.10 BMI Method:Stated General Appearance: Cachetic, Other (Patient is cachectic. She has contractures of her lower extremities bilaterally. Heel protectors are in place with no obvious wounds.) Eyes: Bilateral Eye Normal Inspection, Bilateral Eye PERRL HEENT: Other (Dry mucous membranes) Neck: Supple Respiratory: Chest Non Tender, Lungs Clear, Normal Breath Sounds, No Accessory Muscle Use, No Respiratory Distress Cardiovascular: Regular Rate, Rhythm, Other (Loud holosystolic murmur about the precordium) Gastrointestinal: Normal Bowel Sounds, Non Tender, Soft Back: Normal Inspection Extremity: Other (Heel protectors in place as described above) Neurologic/Psychiatric: Other (Patient is awake and alert but will not speak.) Skin: Other (Large parasacral, right buttock wound with new dressing in place. There is no surrounding erythema or cellulitis.) Focused Exam Lactate Level 04/16/23 13:53: Lactic Acid Level 0.81 Lactic Acid Level Laboratory Tests Test 04/16/23 13:53 Lactic Acid Level 0.81 MMOL/L (0.50-2.00) Progress/Results/Core Measures Suspected Sepsis SIRS Temperature: Pulse: 76 Respiratory Rate: 16 Laboratory Tests 04/16/23 13:53: White Blood Count 15.4H Blood Pressure 145 /79 Mean: 101 04/16/23 13:53: Lactic Acid Level 0.81 Laboratory Tests 04/16/23 13:53: Creatinine 0.52L, INR Comment 1.4, Platelet Count 328, Total Bilirubin 1.1H Results/Orders Lab Results Laboratory Tests Test 04/16/23 13:53 04/16/23 14:24 Range/Units White Blood Count 15.4 H 4.3-11.0 10^3/uL Red Blood Count 4.08 3.80-5.11 10^6/uL Hemoglobin 11.6 11.5-16.0 g/dL Hematocrit 39 35-52 % Mean Corpuscular Volume 95 80-99 fL Mean Corpuscular Hemoglobin 28 25-34 pg Mean Corpuscular Hemoglobin Concent 30 L 32-36 g/dL Red Cell Distribution Width 17.1 H 10.0-14.5 % Platelet Count 328 130-400 10^3/uL Mean Platelet Volume 11.5 9.0-12.2 fL Immature Granulocyte % (Auto) 0 % Neutrophils (%) (Auto) 89 H 42-75 % Lymphocytes (%) (Auto) 6 L 12-44 % Monocytes (%) (Auto) 5 0-12 % Eosinophils (%) (Auto) 0 0-10 % Basophils (%) (Auto) 0 0-10 % Neutrophils # (Auto) 13.6 H 1.8-7.8 X 10^3 Lymphocytes # (Auto) 1.0 1.0-4.0 X 10^3 Monocytes # (Auto) 0.8 0.0-1.0 X 10^3 Eosinophils # (Auto) 0.0 0.0-0.3 10^3/uL Basophils # (Auto) 0.0 0.0-0.1 10^3/uL Immature Granulocyte # (Auto) 0.0 0.0-0.1 10^3/uL Neutrophils % (Manual) 86 % Lymphocytes % (Manual) 9 % Monocytes % (Manual) 5 % Eosinophils % (Manual) 0 % Basophils % (Manual) 0 % Band Neutrophils 0 % Anisocytosis MODERATE Prothrombin Time 17.3 H 12.2-14.7 SEC INR Comment 1.4 0.8-1.4 Activated Partial Thromboplast Time 32 24-35 SEC Sodium Level 149 H 135-145 MMOL/L Potassium Level 3.3 L 3.6-5.0 MMOL/L Chloride Level 104 98-107 MMOL/L Carbon Dioxide Level 36 H 21-32 MMOL/L Anion Gap 9 5-14 MMOL/L Blood Urea Nitrogen 21 H 7-18 MG/DL Creatinine 0.52 L 0.60-1.30 MG/DL Estimat Glomerular Filtration Rate 93 BUN/Creatinine Ratio 40 Glucose Level 105 70-105 MG/DL Lactic Acid Level 0.81 0.50-2.00 MMOL/L Calcium Level 8.9 8.5-10.1 MG/DL Corrected Calcium 9.8 8.5-10.1 MG/DL Total Bilirubin 1.1 H 0.1-1.0 MG/DL Aspartate Amino Transf (AST/SGOT) 17 5-34 U/L Alanine Aminotransferase (ALT/SGPT) 10 0-55 U/L Alkaline Phosphatase 89 40-136 U/L Total Protein 5.4 L 6.4-8.2 GM/DL Albumin 2.9 L 3.2-4.5 GM/DL Urine Color ORANGE Urine Clarity SL CLOUDY Urine pH 6.0 5-9 Urine Specific [place] 1.025 H 1.016-1.022 Urine Protein TRACE H NEGATIVE Urine Glucose (UA) NEGATIVE NEGATIVE Urine Ketones NEGATIVE NEGATIVE Urine Nitrite NEGATIVE NEGATIVE Urine Bilirubin NEGATIVE NEGATIVE Urine Urobilinogen 2.0 < = 1.0 MG/DL Urine Leukocyte Esterase NEGATIVE NEGATIVE Urine RBC (Auto) 3+ H NEGATIVE Urine RBC 50-100 H /HPF Urine WBC 0-2 /HPF Urine Squamous Epithelial Cells NONE /HPF Urine Crystals NONE /LPF Urine Bacteria NEGATIVE /HPF Urine Casts NONE /LPF Urine Mucus NEGATIVE /LPF Urine Culture Indicated NO My Orders Orders - FLORI,MARIAA L DO Cbc With Automated Diff (04/16/23 13:36) Comprehensive Metabolic Panel (04/16/23 13:36) Blood Culture (04/16/23 13:36) Urinalysis (04/16/23 13:36) Urine Culture (04/16/23 13:36) Protime With Inr (04/16/23 13:36) Partial Thromboplastin Time (04/16/23 13:36) Chest 1 View, Ap/Pa Only (04/16/23 13:36) Ed Iv/Invasive Line Start (04/16/23 13:36) Vital Signs Adult Sepsis Patie Q15M (04/16/23 13:36) O2 (04/16/23 13:36) Lactic Acid Analyzer (04/16/23 13:36) Ns Iv 500 Ml (Sodium Chloride 0.9%) (04/16/23 14:14) Manual Differential (04/16/23 13:53) Ct Head Wo (04/16/23 15:02) Code/Resuscitation (04/16/23 15:07) Piperacillin Sodium/Tazobactam (Zosyn Vi (04/16/23 15:30) Vancomycin Injection (Vancomycin Injecti (04/16/23 15:30) Ed Admission (Communication) (04/16/23 15:27) Vital Signs/I&O 04/16/23 04/16/23 04/16/23 13:25 13:25 15:56 Pulse 76 72 Resp 16 16 B/P (MAP) 145/79 (101) 152/80 Pulse Ox 100 100 100 O2 Delivery Nasal Cannula Nasal Cannula Nasal Cannula O2 Flow Rate 3.00 3.00 3.00 3.00 04/17/23 00:00 Intake Total 600 ml Balance 600 ml Capillary Refill : Less Than 3 Seconds Blood Pressure Mean: 101 Critical Care Note Critical Care Total Time (minutes) 45 Departure Communication (Admissions) I spoke to the patient's son at length about her poor prognosis. She does have significant hypernatremia which may be contributing to her altered mentation however I think she is likely at end-of-life stage. Her vital signs are good however. She does have significant leukocytosis and known probable osteomyelitis in her sacral wound. The wound itself overall looks good. After speaking with her son he continues to wish her to have aggressive care outside of intubation or CPR he would like everything done. Without I gave her antibiotics, IV fluids and spoke to the hospitalist and we will admit her for further care. Impression Primary Impression: Altered mental status Qualified Codes: R41.82 - Altered mental status, unspecified Additional Impression: Hypernatremia Disposition: ADMITTED INPATIENT Condition: Stable Departure-Patient Inst. Referrals: JUSTIN JOHNSON MD (PCP/Family) Primary Care Physician MARIAA RUBY DO Apr 16, 2023 13:43
[2023-04-16 14:03] LABS: BASOPHILS % (AUTO) 0 % (0-10); EOSINOPHILS % (AUTO) 0 % (0-10); HEMATOCRIT 39 % (35-52); HEMOGLOBIN 11.6 g/dL (11.5-16.0); LYMPHOCYTES % (AUTO) 6 % (12-44); MEAN CORPUSCULAR HEMOGLOBIN 28 pg (25-34); MEAN CORPUSCULAR HGB CONC 30 g/dL (32-36); MEAN CORPUSCULAR VOLUME 95 fL (80-99); MEAN PLATELET VOLUME 11.5 fL (9.0-12.2); MONOCYTES # (AUTO) 0.8 X 10^3 (0.0-1.0); MONOCYTES % (AUTO) 5 % (0-12); NEUTROPHILS # (AUTO) 13.6 X 10^3 (1.8-7.8); NEUTROPHILS % (AUTO) 89 % (42-75); PLATELET COUNT 328 10^3/uL (130-400); WHITE BLOOD COUNT 15.4 10^3/uL (4.3-11.0)
[2023-04-16 14:12] LABS: ALBUMIN 2.9 GM/DL (3.2-4.5); POTASSIUM 3.3 MMOL/L (3.6-5.0)
[2023-04-16 14:14] LABS: CALCIUM 8.9 MG/DL (8.5-10.1)
[2023-04-16] MEDS ORDERED: NS IV 500 ML 500 ML IV STA (14:14)
[2023-04-16 14:15] LABS: TOTAL PROTEIN 5.4 GM/DL (6.4-8.2)
[2023-04-16 14:17] LABS: BILIRUBIN,TOTAL 1.1 MG/DL (0.1-1.0)
[2023-04-16 14:19] LABS: CREATININE SERUM 0.52 MG/DL (0.60-1.30); INR 1.4 (0.8-1.4); PROTHROMBIN TIME PATIENT 17.3 SEC (12.2-14.7)
--- NOTE | 2023-04-16 14:26 | Diagnostic Imaging Report ---
INDICATION: Altered mental status. Frontal chest obtained at 2:12 p.m. and compared to 04/03/2023. FINDINGS: There is cardiomegaly. There is bibasilar infiltrate with a trace of left pleural fluid. There is no pneumothorax. Pacemaker is unchanged. IMPRESSION: Cardiomegaly with bibasilar infiltrates and small left pleural effusion. Dictated by: Dictated on workstation # [id number]
[2023-04-16 14:27] LABS: ANISOCYTOSIS MODERATE; BAND NEUTROPHILS 0 %; BASOPHILS % (MANUAL) 0 %; EOSINOPHILS % (MANUAL) 0 %; LYMPHOCYTES % (MANUAL) 9 %; MONOCYTES % (MANUAL) 5 %; NEUTROPHILS % (MANUAL) 86 %
[2023-04-16 14:34] LABS: BILIRUBIN,URINE NEGATIVE (NEGATIVE); CLARITY,URINE SL CLOUDY; COLOR,URINE ORANGE; GLUCOSE, URINE (UA) NEGATIVE (NEGATIVE); KETONES,URINE NEGATIVE (NEGATIVE); LEUKOCYTE ESTERASE ,URINE NEGATIVE (NEGATIVE); NITRITE,URINE NEGATIVE (NEGATIVE); PROTEIN,URINE TRACE (NEGATIVE)
[2023-04-16 14:46] LABS: BACTERIA,URINE NEGATIVE /HPF; RBC,URINE 50-100 /HPF; WBC,URINE 0-2 /HPF
[2023-04-16] MEDS ORDERED: VANCOMYCIN INJECTION 1,000 MG in NS (IVPB) 250 ML 250 ML IV ONE (15:30)
[2023-04-16] MEDS ORDERED: PIPERACILLIN SODIUM/TAZOBACTAM 4.5 GM in NS (IVPB) 100 ML 100 ML IV ONE (15:30)
--- NOTE | 2023-04-16 15:33 | Diagnostic Imaging Report ---
INDICATION: Altered mental status. TECHNIQUE: Multiple contiguous axial images were obtained through the brain without the use of intravenous contrast. Auto Exposure Controls were utilized during the CT exam to meet ALARA standards for radiation dose reduction. Comparison made to 03/20/2023. FINDINGS: There are diffuse atrophic changes. There are no extra-axial fluid collections. There is mild ventricular prominence which is stable compared to the prior study. There is no acute hemorrhage or mass effect. There is no acute territorial ischemia. Calvarial windows show no acute bony abnormality. There are chronic changes in the sinuses with mucosal thickening. IMPRESSION: Chronic changes as above which are similar to 03/20/2023. No acute intracranial abnormality. Dictated by: Dictated on workstation # [id number]
[2023-04-16 17:23] VITALS: BP 160/73
[2023-04-16] MEDS ORDERED: NS IV 1000 ML 1,000 ML ONE (17:59)
[2023-04-16] MEDS: NS IV 1000 ML 1,000 ML IV SCH (18:08)
[2023-04-16 19:13] VITALS: BP 147/67
[2023-04-16 23:16] VITALS: BP 164/75
[2023-04-16] MEDS ORDERED: ACETAMINOPHEN 650 MG SUPPOSITORY PR PRN (23:30)
[2023-04-17 03:15] VITALS: BP 164/78
[2023-04-17 06:37] LABS: BASOPHILS % (AUTO) 0 % (0-10); EOSINOPHILS % (AUTO) 0 % (0-10); HEMATOCRIT 38 % (35-52); HEMOGLOBIN 11.5 g/dL (11.5-16.0); LYMPHOCYTES # (AUTO) 0.7 10^3/uL (1.0-4.0); LYMPHOCYTES % (AUTO) 6 % (12-44); MEAN CORPUSCULAR HEMOGLOBIN 28 pg (25-34); MEAN CORPUSCULAR HGB CONC 30 g/dL (32-36); MEAN CORPUSCULAR VOLUME 94 fL (80-99); MEAN PLATELET VOLUME 12.3 fL (9.0-12.2); MONOCYTES # (AUTO) 0.4 10^3/uL (0.0-1.0); MONOCYTES % (AUTO) 3 % (0-12); NEUTROPHILS # (AUTO) 11.2 10^3/uL (1.8-7.8); NEUTROPHILS % (AUTO) 90 % (42-75); PLATELET COUNT 326 10^3/uL (130-400); WHITE BLOOD COUNT 12.4 10^3/uL (4.3-11.0)
[2023-04-17 06:48] LABS: POTASSIUM 2.9 MMOL/L (3.6-5.0)
[2023-04-17 06:49] LABS: CALCIUM 8.9 MG/DL (8.5-10.1)
[2023-04-17 06:53] LABS: CREATININE SERUM 0.53 MG/DL (0.60-1.30)
[2023-04-17 07:31] VITALS: BP 163/73
[2023-04-17] MEDS: NS IV 1000 ML 1,000 ML IV SCH ×2 (07:39→20:20)
[2023-04-17] MEDS ORDERED: VANCOMYCIN INJECTION 0.1 MG in NS (IVPB) 250 ML 250 ML IV SCH (07:45)
[2023-04-17] MEDS: MEROPENEM IV SCH ×2 (08:50→20:24)
[2023-04-17] MEDS: LevETIRAcetam INJECTION 500 MG in NS (IVPB) 100 ML 100 ML IV SCH ×2 (08:50→20:20)
[2023-04-17] MEDS: NS IV SCH ×2 (08:50→20:24)
[2023-04-17] MEDS ORDERED: APIXABAN 5 MG TABLET PO SCH (09:00)
--- NOTE | 2023-04-17 09:36 | Speech Therapy Progress Note ---
Therapy Progress Note Speech pathology received the consultation and attempted the evaluation at 0935. At this time, the patient is receiving a bed bath. ST will re-attempt the evaluation as the patient is appropriate to participate and schedule permits. Thank you. ESTEFANÍA VERMA Apr 17, 2023 09:36
--- NOTE | 2023-04-17 09:40 | History & Physical-Hospitalist ---
History of Present Illness HPI/Chief Complaint Patient is an 83-year-old female well-known to me from multiple previous admissions who presented to the emergency department due to altered mental status. She is unable to provide any history so all history is obtained from the records and from her son Jhony. She was discharged from the hospital on April 13 back to her correction. Jhony states that over the weekend she was doing okay and was speaking in 2-3 word sentences to him. He was able to feed her on Sunday and thought she was doing well. Yesterday she was found altered and was sent to the emergency department for evaluation. She was unable to communicate to the ER and was requiring 3 L of oxygen instead of her normal 1. She was admitted observation for further management. This morning she is tracking with her eyes but she still does not speak. Last time I took care of her she would intermittently speak but not much so she is still slightly off from her baseline. Source: patient Date Seen 04/17/23 Time Seen by a Provider: 09:32 Attending Physician Jason Johnson MD PCP Admitting Physician: Becky Williamson MD Attending Physician: Becky Williamson MD Referring Physician Date of Admission Apr 16, 2023 at 16:25 Home Medications & Allergies Home Medications Reviewed patient Home Medication Reconciliation performed by pharmacy medication reconciliations prosthetics lab technician and/or nursing. Patients Allergies have been reviewed. Allergies Allergies Coded Allergies doxycycline (Unverified Allergy, Mild, 11/26/17) Past Fanjajr-Cdejha-Flidbh Hx Patient Social History Marrital Status: Tobacco Use?: No Use of E-Cig and/or Vaping dev: No Substance use?: No Alcohol Use?: No Pt feels they are or have been: No Immunizations Up To Date Date of Influenza Vaccine: Oct 08, 2022 First/Initial COVID19 Vaccinat: 2020 Second COVID19 Vaccination Ronald: 2020 Tetanus Booster (TDap): Unknown Hepatitis A: Yes Hepatitis B: Yes Date of Pneumonia Vaccine: Oct 30, 2016 Seasonal Allergies Seasonal Allergies: Yes Current Status Advance Directives: Yes Advance Directive Location: Copy placed in chart Communicates: Verbally Primary Language: Nepalese Preferred Spoken Language: Nepalese Is interpretation needed?: No Implanted or Applied Medical D: None Past Medical History Surgeries: Section, Pacemaker, Tonsillectomy Asthma, Sleep Apnea, COPD Currently Using CPAP: No Atrial Fibrillation, High Cholesterol, Hypertension, Valvular Heart Disease Dementia, Stroke Sexually Transmitted Disease: No HIV/AIDS: No Renal Failure Gastroesophageal Reflux, Chronic Constipation Arthritis, Chronic Back Pain Glaucoma Loss of Vision: Bilateral Hearing Impairment: Hard of Hearing Anxiety, Depression Blood Disorders: No Adverse Reaction/Blood Tranf: No (N/A) Family Medical History Heart Disease, COPD, Renal Disease, Other Conditions/Hx Review of Systems Constitutional: see HPI Physical Exam Physical Exam Vital Signs Vital Signs - First Documented 04/16/23 17:23 Temp 37.2 Capillary Refill : Less Than 3 Seconds Height, Weight, BMI Height: 5'4.00" Weight: 182lbs. 0.6oz. 77.079647ka; 22.85 BMI Method:Stated General Appearance: No Apparent Distress, WD/WN, Chronically ill, Thin Respiratory: Decreased Breath Sounds Cardiovascular: Regular Rate, Rhythm, Systolic Murmur Gastrointestinal: Normal Bowel Sounds, Soft Neurologic/Psychiatric: Alert, Disoriented Results Results/Procedures Labs Laboratory Tests 04/16/23 13:53 04/17/23 05:27 Patient resulted labs reviewed. Imaging: Reviewed Imaging Report [facility] [place], [place] NAME: LUCITA ORLANDO [facility] REC#: [id number] PT STATUS: ADM Anat : 1940 PHYSICIAN: MARIAA RUBY DO ADMIT DATE: 04/16/23 Signed Date of Exam:04/16/23 CHEST 1 VIEW, AP/PA ONLY INDICATION: Altered mental status. Frontal chest obtained at 2:12 p.m. and compared to 04/03/2023. FINDINGS: There is cardiomegaly. There is bibasilar infiltrate with a trace of left pleural fluid. There is no pneumothorax. Pacemaker is unchanged. IMPRESSION: Cardiomegaly with bibasilar infiltrates and small left pleural effusion. Dictated by: Dictated on workstation # [id number] Dict: 04/16/23 1422 Trans: 04/16/231652 [id number] Interpreted by: NIYA VARELA MD Electronically signed by: NIYA VARELA MD 04/16/23 1653 [facility] [place], [place] NAME: LUCITA ORLANDO [facility] REC#: [id number] PT STATUS: ADM Anat : 1940 PHYSICIAN: MARIAA RUBY DO ADMIT DATE: 04/16/23 Signed Date of Exam:04/16/23 CT HEAD WO INDICATION: Altered mental status. TECHNIQUE: Multiple contiguous axial images were obtained through the brain without the use of intravenous contrast. Auto Exposure Controls were utilized during the CT exam to meet ALARA standards for radiation dose reduction. Comparison made to 03/20/2023. FINDINGS: There are diffuse atrophic changes. There are no extra-axial fluid collections. There is mild ventricular prominence which is stable compared to the prior study. There is no acute hemorrhage or mass effect. There is no acute territorial ischemia. Calvarial windows show no acute bony abnormality. There are chronic changes in the sinuses with mucosal thickening. IMPRESSION: Chronic changes as above which are similar to 03/20/2023. No acute intracranial abnormality. Dictated by: Dictated on workstation # [id number] Dict: 04/16/23 1522 Trans: 04/16/23 1653 [id number] Interpreted by: NIYA VARELA MD Electronically signed by: NIYA VARELA MD 04/16/23 1653 Assessment/Plan Admission Diagnosis AMS Admission Status: Observation Assessment and Plan Advanced dementia AMS Pressure ulcer Poor prognosis Continue IV abx Fever overnight Await cultures Spoke with son- he would like to try continuing aggressive care in the hospital (but remains a full code) until nothing further can be done COPD HTN AFib Aortic stenosis No acute needs DVT ppx: Lovenox Copy Copies To 1: JASON JOHNSON MD, KATELYN M MD Apr 17, 2023 09:40
--- NOTE | 2023-04-17 10:42 | ST Dysphagia Evaluation ---
Speech Evaluation-General Medical Diagnosis Altered Mental Status Onset Date: Apr 16, 2023 Therapy Diagnosis Therapy Diagnosis: Suspected Oropharyngeal Dysphagia Precautions Precautions: Fall, Pressure Ulcer, Aspiration Precautions/Isolations: Contact Isolation, Aspiration, Fall Prevention, Pressure Ulcer Referral Referring Physician: Dr. Williamson Reason for Referral: Evaluation/Treatment Medical History Pertinent Medical History: Atrial Fib, Arthritis, COPD, CVA, Dementia, GERD, HTN, Renal Insufficiency Reviewed History: Yes Speech PLF/Current-Dysphagia Prior Level of Function The patient is known to the clinician from multiple previous hospitalizations. Throughout the patient's most recent acute hospital stay, the clinician i lay recommended a pureed diet consistency with mildly thick liquids prior to placing the patient N.P.O. due to reduced alertness and requesting a follow up clinical bedside swallowing evaluation to be completed. The patient discharged from acute care to the group home facility on 04/13/2023 prior to receiving new orders for a swallowing assessment. At this time, the patient returns with reduced levels of alertness and reports of poor P.O. intake from the group home facility. Subjective The patient was lying in bed with her eyes opened upon entrance to her room by the clinician. The patient does not make eye contact with the clinician or verbalize when a greeting was provided. The patient was positioned upright in bed for safe swallowing position. The patient is receiving supplemental oxygen via nasal cannula. Oral Motor Skills Dentition: Natural Ability to Follow Directions: Unable Oral Expression Ability: Severe Impairment Voice Voice Phonatory-Based Quality: Breathy, Weak Face Facial Symmetry: Asymmetrical (Suspected left facial weakness.) Oral-Facial Assessment Oral-Facial Dentition: Normal Labial Seal Description: Weak, Poor Coordination Volitional Dry Swallow: No Voluntary Cough: No Can Clear Throat Volitionally: No Dysphagia Evaluation Consistencies Presented: Thin Liquid (Two ice chips, three half teaspoons of water.), Pureed (Coated teaspoon.) Oral Phase: Anterior Spillage, Unable to Form Bolus, Absent Oral Transit, Unable to Suck Straw, Reduced Oral Transit Maximum verbal prompting and encouragement was required for limited appropriate participation. Initially, the patient would not open the oral cavity or accept the ice chip. With continued gentle tactile stimulation of the ice chip on the lips, the patient accepted the ice chip. The initial ice chip displayed completed anterior loss from the oral cavity. The patient does complete mastication of the second ice chip with one swallow completed. The patient was unable to draw material from a straw. The patient sucked material from a teaspoon. Absent oral manipulation occurred with the applesauce, as the clinician suctioned the material from the oral cavity. Laryngeal elevation was present to palpation. A substantially delayed onset of the pharyngeal swallow was suspected. Dietary Recommendations: NPO Liquid Recommendations: NPO At this time, the patient does not display an appropriate level of alertness or participation for continued P.O. trials. Recommendations: - The patient should remain N.P.O. - Frequent and thorough oral care to reduce the transfer of oral bacteria to the lungs should aspiration of secretions occur. - Following oral care, moist swabs to improve oral comfort. - Speech pathology to continue daily re-assessments of the patient's oropharyngeal swallowing function, as appropriate. The results and recommendations were provided to the patient and the RN. The N.P.O. recommendation was placed on the in-room white board. Speech Short Term Goals Short Term Goals Short Term Goals 1. The patient, staff, and family members will display safe swallowing strategies with 80% accuracy, independently. Time Frame-STG: Three Days. Speech Valve Inspector Goals Mcfp Goals 1. The patient will tolerate the least restrictive diet consistency without s/s of suspected aspiration. Time Frame: Five Days. Speech-Plan Treatment Plan Speech Therapy Treatment Plan: Continue Plan of Care Treatment Duration: Apr 20, 2023 Frequency: 3 times per week Estimated Hrs Per Day: .25 hour per day Rehab Potential: Poor Safety Risks/Education Teaching Recipient: Patient Teaching Methods: Discussion Response to Teaching: Unable to Comprehend Education Topics Provided: Safe Swallowing Precautions, Recommendations, Plan of Care Time Speech Therapy Time In: 10:00 Speech Therapy Time Out: 10:23 DATE: Apr 17, 2023 Total Billed Time: 23 Billed Treatment Time 1, JOSEPH DOBBS ELIZABETH ST Apr 17, 2023 10:42
[2023-04-17 11:46] VITALS: BP 174/81
[2023-04-17] MEDS ORDERED: HYPOCHLOROUS ACID/NaCl (VASHE) 250 ML IR SCH (13:30)
--- NOTE | 2023-04-17 13:35 | Wound Care Assessment ---
Wound Care Assessment Date Seen by Provider: Apr 17, 2023 Time Seen by Provider: 12:00 Chief Complaint Sacral decubitus ulcer HPI This unfortunate 83 year old patient is known to me from a visit to our office as outpatient. She has severe (end stage) dementia, immobility and nutritional depletion. She was recently admitted to the hospital with sepsis. This is likely related to her sacral pressure ulcer. We will be unable to heal this ulcer due to her underlying medical conditions and mental status. Her wound healing is complicated by immobility, generalized weakness, poor po intake (albumin 2.9, prealbumin 10.6), mental status (non-verbal and only responsive with dressing changes-moaning in pain), chronic refractory anemia (hgb 11.5), and infection (ESBL). I strongly suspect she has sacral osteomyelitis. She is not a candidate for aggressive surgical intervention. Her son has been very resistant to the idea of hospice/palliative care. It has been discussed on numerous occasions. She was ultimately discharged last week with the [facility] after discussions about her inability to eat and her decline in mental status. However, the OCCUPATIONAL THERAPY DIRECTOR associated with [facility] is currently out of town and intake has not been performed. He no longer provides wound care with this service as well. We had plans to see Citlaly in our office today for palliative wound care measures but she was readmitted to the hospital instead. All of Citlaly's medical ailments are a natural progression of her end stage dementia. Again, I will be unable to heal this ulcer/infection. She is unsafe to eat currently and at baseline is an aspiration risk. She is quite cachetic on exam. Per facility, she took no p.o. upon d/c home. On exam today her ulcer is worsened in size and depth. Necrotic muscle, fat and fascia are present with exposed bone. The ulcer is foul smelling with copious purulent drainage. Past Medical History: Admits Heart Disease Recreational Drug Use: No Alcohol Use: Denies Use Review of Systems Other systems Unable to obtain due to mental status Exam Vital Signs Date Time Temp Pulse Resp B/P (MAP) Pulse Ox O2 Delivery O2 Flow Rate FiO2 04/17/23 12:09 85 04/17/23 11:46 37.2 18 174/81 (112) 99 Nasal Cannula 3.00 Capillary Refill : Less Than 3 Seconds General Appearance: moderate distress (moaning with dressing changes), cachetic Cardiovascular: other (edema of all extremities with cachexia to trunk) Neurologic/Psychiatric: other (responsive only to tactile stimulation) Skin Problem Location: torso Wound assessment: 6x6.5x2.5cm. The epithelialization is none. There is no tunneling but there is circumferential undermining. Drainage is large and purulent with foul odor. Granulation is none. Necrotic is large and slough. Necrotic muscle, fat and fascia are exposed. Bone is also exposed (unable to determine viability) Results Laboratory Tests 04/16/23 13:53: White Blood Count 15.4H, Red Blood Count 4.08, Hemoglobin 11.6, Hematocrit 39, M shawna Corpuscular Volume 95, Mean Corpuscular Hemoglobin 28, Mean Corpuscular Hemoglobin Concent 30L, Red Cell Distribution Width 17.1H, Platelet Count 328, Mean Platelet Volume 11.5, Immature Granulocyte % (Auto) 0, Neutrophils (%) (Auto) 89H, Lymphocytes (%) (Auto) 6L, Monocytes (%) (Auto) 5, Eosinophils (%) (Auto) 0, Basophils (%) (Auto) 0, Neutrophils # (Auto) 13.6H, Lymphocytes # (Auto) 1.0, Monocytes # (Auto) 0.8, Eosinophils # (Auto) 0.0, Basophils # (Auto) 0.0, Immature Granulocyte # (Auto) 0.0, Neutrophils % (Manual) 86, Lymphocytes % (Manual) 9, Monocytes % (Manual) 5, Eosinophils % (Manual) 0, Basophils % (Manual) 0, Band Neutrophils 0, Anisocytosis MODERATE, Prothrombin Time 17.3H, INR Comment 1.4, Activated Partial Thromboplast Time 32, Sodium Level 149H, Potassium Level 3.3L, Chloride Level 104, Carbon Dioxide Level 36H, Anion Gap 9, Blood Urea Nitrogen 21H, Creatinine 0.52L, Estimat Glomerular Filtration Rate 93, BUN/Creatinine Ratio 40, Glucose Level 105, Lactic Acid Level 0.81, Calcium Level 8.9, Corrected Calcium 9.8, Total Bilirubin 1.1H, Aspartate Amino Transf (AST/SGOT) 17, Alanine Aminotransferase (ALT/SGPT) 10, Alkaline Phosphatase 89, Total Protein 5.4L, Albumin 2.9L 04/16/23 14:24: Urine Color ORANGE, Urine Clarity SL CLOUDY, Urine pH 6.0, Urine Specific [place] 1.025H, Urine Protein TRACEH, Urine Glucose (UA) NEGATIVE, Urine Ketones NEGATIVE, Urine Nitrite NEGATIVE, Urine Bilirubin NEGATIVE, Urine Urobilinogen 2.0, Urine Leukocyte Esterase NEGATIVE, Urine RBC (Auto) 3+H, Urine RBC 50-100H, Urine WBC 0-2, Urine Squamous Epithelial Cells NONE, Urine Crystals NONE, Urine Bacteria NEGATIVE, Urine Casts NONE, Urine Mucus NEGATIVE, Urine Culture Indicated NO 04/17/23 05:27: White Blood Count 12.4H, Red Blood Count 4.07, Hemoglobin 11.5, Hematocrit 38, Mean Corpuscular Volume 94, Mean Corpuscular Hemoglobin 28, Mean Corpuscular Hemoglobin Concent 30L, Red Cell Distribution Width 17.2H, Platelet Count 326, Mean Platelet Volume 12.3H, Immature Granulocyte % (Auto) 1, Neutrophils (%) (Auto) 90H, Lymphocytes (%) (Auto) 6L, Monocytes (%) (Auto) 3, Eosinophils (%) (Auto) 0, Basophils (%) (Auto) 0, Neutrophils # (Auto) 11.2H, Lymphocytes # (Auto) 0.7L, Monocytes # (Auto) 0.4, Eosinophils # (Auto) 0.0, Basophils # (Auto) 0.0, Immature Granulocyte # (Auto) 0.1, Sodium Level 152H, Potassium Level 2.9L, Chloride Level 106, Carbon Dioxide Level 33H, Anion Gap 13, Blood Urea Nitrogen 19H, Creatinine 0.53L, Estimat Glomerular Filtration Rate 93, BUN/Creatinine Ratio 36, Glucose Level 89, Calcium Level 8.9 Assessment/Plan/Dx Assessment: 1. Stage 4 sacral pressure ulcer 2. 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 Moderate PEM with cachexia 4. End Stage dementia 5. Aspiration risk 6. Severe immobility/generalized weakness 7. Dehydration due to poor po intake Plan: 1. Cleanse daily with Vashe and place Vashe WTD with bordered foam daily 2. Defer to primary team. I would not recommend aggressive surgical intervention. 3. Consistent with advanced dementia 4. Defer to primary team 5. Consistent with advanced dementia 6. Consistent with advanced dementia 7. Consistent with advanced dementia 8. Would strongly suggest palliative wound care with dressings for comfort RUSH JACQUES MD Apr 17, 2023 13:35
[2023-04-17] MEDS ORDERED: MENT120C2 TP ×2 (15:02)
[2023-04-17] MEDS ORDERED: FURO40TA4 PO (15:02)
[2023-04-17] MEDS ORDERED: NS IV 500 ML 500 ML IV PRN (15:30)
[2023-04-17 16:07] VITALS: BP 157/82
[2023-04-17] MEDS ORDERED: POTASSIUM CL 10MEQ/50ML IVPB 200 ML IV ONE (16:38)
[2023-04-17] MEDS: POTASSIUM CL 10MEQ/50ML IVPB 50 ML IV SCH ×3 (16:51→20:21)
[2023-04-17] MEDS: VANCOMYCIN 1 GM/NS 250 ML IVPB IV SCH ×2 (16:52)
[2023-04-17 20:30] VITALS: BP 163/76
[2023-04-17] MEDS ORDERED: ENOXAPARIN 40 MG/0.4 ML SYRINGE SQ SCH (21:00)
[2023-04-17 23:55] VITALS: BP 169/82
[2023-04-18 03:37] VITALS: BP 163/91
[2023-04-18 05:57] LABS: POTASSIUM 3.2 MMOL/L (3.6-5.0)
[2023-04-18 05:58] LABS: CALCIUM 8.9 MG/DL (8.5-10.1)
[2023-04-18 06:03] LABS: CREATININE SERUM 0.53 MG/DL (0.60-1.30)
[2023-04-18] MEDS: MAGNESIUM 1 GM/100 ML IVPB 100 ML IV SCH (06:13)
[2023-04-18] MEDS: POTASSIUM CL 10MEQ/50ML IVPB 50 ML IV SCH ×9 (06:14→13:17)
[2023-04-18] MEDS: KCL 20 MEQ TAB (K-DUR) PO SCH (06:14)
[2023-04-18 07:56] VITALS: BP 161/90
[2023-04-18] MEDS: MEROPENEM IV SCH ×2 (08:06→19:36)
[2023-04-18] MEDS: NS IV SCH ×2 (08:06→19:36)
--- NOTE | 2023-04-18 08:37 | Speech Therapy Daily Note ---
Speech Daily Progress Note Subjective Date Seen by Provider: Apr 18, 2023 Time Seen by Provider: 08:15 The patient was lying in bed with her eyes opened upon entrance to her room by the clinician. The patient makes eye contact with the clinician and does not return a greeting from the clinician. The patient does not attempt nonverbal communication via head shake or nod. The patient was positioned upright for safe swallowing precautions. At this time, the patient is receiving 3L supplemental oxygen via nasal cannula. Objective A moist oral swab was provided by the clinician to provide oral comfort and moisture prior to the P.O. trials. The patient does not attempt oral m anipulation of the oral swab. The patient rounds lips on one occasion to remove an ice chip. The patient masticates the ice chip and displays oral holding for over a minute prior to a pharyngeal swallow. The patient does not remove any additional items from the utensils provided regardless of maximum clinician verbal and tactile cueing. Material cannot be "dumped" into the patient's oral cavity as it greatly increased aspiration and safety risks for the patient. The clinician continuously attempted a teaspoon and straw without any acceptance from the patient (patient remains with an open oral cavity posture). ST ended P.O. trials at this time. As the patient was admitted with concerns of reduced P.O. intake and the patient continues reduced intake for two consecutive days, the patient may be appropriate for discussions of alternative sources of nutrition per plan of care goals. Continue current speech pathology current plan of care, N.P.O. Assessment Assessment Current Status: Poor Progress Treatment Plan Continue Plan of Care Speech Short Term Goals Short Term Goals Short Term Goals 1. The patient, staff, and family members will display safe swallowing strate gies with 80% accuracy, independently. Time Frame-STG: Three Days. Speech Senior Living Goals Black Top Paver Operator Goals 1. The patient will tolerate the least restrictive diet consistency without s/s of suspected aspiration. Time Frame: Five Days. Speech-Plan Treatment Plan Speech Therapy Treatment Plan: Continue Plan of Care Treatment Duration: Apr 20, 2023 Frequency: 3 times per week Estimated Hrs Per Day: .25 hour per day Rehab Potential: Poor Safety Risks/Education Teaching Recipient: Patient Teaching Methods: Discussion Response to Teaching: Unable to Comprehend Education Topics Provided: Safe Swallowing Precautions, Aspiration Risks, Plan of Care Time Speech Therapy Time In: 08:15 Speech Therapy Time Out: 08:30 DATE: Apr 18, 2023 Total Billed Time: 15 Billed Treatment Time 1, ESTEFANÍA FENTON Apr 18, 2023 08:37
[2023-04-18] MEDS: LevETIRAcetam INJECTION 500 MG in NS (IVPB) 100 ML 100 ML IV SCH ×2 (08:44→20:08)
[2023-04-18] MEDS: D5 1/2NS + KCL 20 MEQ/L 1000ML 1,000 ML IV SCH ×2 (09:24→19:36)
[2023-04-18 11:24] VITALS: BP 156/83
--- NOTE | 2023-04-18 14:11 | Progress Note - Hospitalist ---
Subjective HPI/CC On Admission Date Seen by Provider: Apr 18, 2023 Patient is an 83-year-old female well-known to me from multiple previous admissions who presented to the emergency department due to altered mental status. She is unable to provide any history so all history is obtained from the records and from her son Jhony. She was discharged from the hospital on April 13 back to her [place] [facility]. Jhony states that over the weekend she was doing okay and was speaking in 2-3 word sentences to him. He was able to feed her on Sunday and thought she was doing well. Yesterday she was found altered and was sent to the emergency department for evaluation. She was unable to communicate to the ER and was requiring 3 L of oxygen instead of her normal 1. She was admitted observation for further management. This morning she is tracking with her eyes but she still does not speak. Last time I took care of her she would intermittently speak but not much so she is still slightly off from her baseline. Subjective/Events-last exam Pt laying in bed. Opens eyes and staring ahead. Did not do well with TEAM SUPERVISOR today and unable to advance diet. Spoke with her son regarding this and options. He is hopeful she will wake up and start eating but at this time does not think he would want to pursue a PEG tube. He states that may be a sign that she is at the end of her life. Focused Exam Lactate Level Objective Exam Vital Signs Vital Signs Date Time Temp Pulse Resp B/P (MAP) Pulse Ox O2 Delivery O2 Flow Rate FiO2 04/19/23 15:31 37.4 86 21 140/76 (97) 100 NIV Bilevel 50.00 Capillary Refill : Less Than 3 Seconds General Appearance: No Apparent Distress, Chronically ill, Thin Cardiovascular: Systolic Murmur, Tachycardia Neurologic/Psychiatric: Alert, Disoriented Results/Procedures Lab Laboratory Tests 04/19/23 05:35 Patient resulted labs reviewed. Imaging: Reviewed Imaging Report Assessment/Plan Assessment and Plan Assess & Plan/Chief Complaint Advanced dementia AMS Pressure ulcer Poor prognosis Dysphagia Continue IV abx Fever resolved Await cultures (1 tube with staph homnis and staph epi- likely a contaminant) Spoke with son as above Speech seeing- discussed with son regarding nutritional status COPD HTN AFib Aortic stenosis No acute needs DVT ppx: ABRAHAM Kelly MD Apr 18, 2023 14:11
[2023-04-18] MEDS ORDERED: ENOXAPARIN 150 MG/ML SYRINGE SQ SCH (14:30)
[2023-04-18] MEDS: ENOXAPARIN 60 MG/0.6 ML SYRINGE SC SCH (15:39)
[2023-04-18 15:45] VITALS: BP 150/79
[2023-04-18] MEDS ORDERED: TROUGH ORDER-PHARMACY XX NR (16:00)
[2023-04-18] MEDS: VANCOMYCIN 1 GM/NS 250 ML IVPB IV SCH ×2 (17:07)
[2023-04-18] MEDS: meTOprolol 5 MG/5 ML (LOPRESSOR) VIAL IV SCH ×2 (17:54→22:48)
[2023-04-18 19:54] VITALS: BP 157/70
[2023-04-18 23:04] VITALS: BP 144/66
[2023-04-19 03:51] VITALS: BP 161/81
[2023-04-19] MEDS: ENOXAPARIN 60 MG/0.6 ML SYRINGE SC SCH ×2 (03:51→14:02)
[2023-04-19] MEDS: meTOprolol 5 MG/5 ML (LOPRESSOR) VIAL IV SCH ×3 (05:32→18:52)
[2023-04-19] MEDS: D5 1/2NS + KCL 20 MEQ/L 1000ML 1,000 ML IV SCH ×2 (05:32→14:02)
[2023-04-19 05:59] LABS: POTASSIUM 4.2 MMOL/L (3.6-5.0)
[2023-04-19 06:00] LABS: CALCIUM 8.8 MG/DL (8.5-10.1)
[2023-04-19 06:05] LABS: CREATININE SERUM 0.55 MG/DL (0.60-1.30)
[2023-04-19] MEDS: POTASSIUM CL 10MEQ/50ML IVPB 50 ML IV SCH (06:06)
[2023-04-19 06:07] LABS: MAGNESIUM 1.9 MG/DL (1.6-2.4)
[2023-04-19] MEDS: KCL 20 MEQ TAB (K-DUR) PO SCH (06:07)
[2023-04-19] MEDS: MAGNESIUM 1 GM/100 ML IVPB 100 ML IV SCH ×2 (06:10→06:16)
[2023-04-19 07:41] VITALS: BP 152/74
--- NOTE | 2023-04-19 08:45 | Speech Therapy Progress Note ---
Therapy Progress Note ST attempted the clinical bedside swallowing re-evaluation at 0843. At this time, the RN requested a HOLD due to the patient's decreased alertness. ST will re-attempt the evaluation as appropriate. ESTEFANÍA VERMA Apr 19, 2023 08:45
[2023-04-19] MEDS: MEROPENEM IV SCH ×2 (08:52→20:54)
[2023-04-19] MEDS: NS IV SCH ×2 (08:52→20:54)
[2023-04-19] MEDS: LevETIRAcetam INJECTION 500 MG in NS (IVPB) 100 ML 100 ML IV SCH ×2 (08:52→22:08)
[2023-04-19 11:20] VITALS: BP 124/66
[2023-04-19 13:42] LABS: ABG BASE EXCESS 11.2 MMOL/L (-2.5-2.5); ABG OXYGEN SATURATION 80 % (94-100); ABG PO2 49 MMHG (79-93); ABG TCO2 39.4 MMOL/L (21.0-31.0)
[2023-04-19 13:47] LABS: ABG PCO2 71 MMHG (35-45); ABG PH 7.34 (7.37-7.43)
[2023-04-19 13:48] LABS: ALLENS TEST YES-POS; INSPIRED O2 4.5; PATIENT TEMP 37; VENTILATOR NO
--- NOTE | 2023-04-19 13:57 | Progress Note - Hospitalist ---
Subjective HPI/CC On Admission Date Seen by Provider: Apr 19, 2023 Patient is an 83-year-old female well-known to me from multiple previous admissions who presented to the emergency department due to altered mental status. She is unable to provide any history so all history is obtained from the records and from her son Jhony. She was discharged from the hospital on April 13 back to her [facility]. Jhony states that over the weekend she was doing okay and was speaking in 2-3 word sentences to him. He was able to feed her on Sunday and thought she was doing well. Yesterday she was found altered and was sent to the emergency department for evaluation. She was unable to communicate to the ER and was requiring 3 L of oxygen instead of her normal 1. She was admitted observation for further management. This morning she is tracking with her eyes but she still does not speak. Last time I took care of her she would intermittently speak but not much so she is still slightly off from her baseline. Subjective/Events-last exam Pt less alert today. ABG ordered and hypercapnia noted. Will trial BiPAP again. Focused Exam Lactate Level 04/16/23 13:53: Lactic Acid Level 0.81 Objective Exam Vital Signs Vital Signs Date Time Temp Pulse Resp B/P (MAP) Pulse Ox O2 Delivery O2 Flow Rate FiO2 04/19/23 11:20 37.2 87 18 124/66 (85) 100 Nasal Cannula 3.00 Capillary Refill : Less Than 3 Seconds General Appearance: Chronically ill, Thin Respiratory: Lungs Clear, No Accessory Muscle Use, Decreased Breath Sounds Cardiovascular: Regular Rate, Rhythm, Systolic Murmur Neurologic/Psychiatric: Other (eyes open, did not respond to verbal stimuli. furrowed brow when I moved hair out of her eyes) Results/Procedures Lab Laboratory Tests 04/19/23 05:35 Patient resulted labs reviewed. Imaging: Reviewed Imaging Report Assessment/Plan Assessment and Plan Assess & Plan/Chief Complaint Advanced dementia AMS Pressure ulcer Poor prognosis Dysphagia COPD with hypercapnia Continue IV abx Fever resolved Await cultures (1 tube with staph homnis and staph epi- likely a contaminant) Speech seeing- discussed with son regarding nutritional status- does not at this time want PEG tube or NGT- would like to try to get her more time BiPAP for hypercapnia- updated son on this HTN AFib Aortic stenosis No acute needs DVT ppx: ABRAHAM Kelly MD Apr 19, 2023 13:57
[2023-04-19] MEDS ORDERED: ARTIFICAL TEARS Ophth solution 0.4 ML UNIT DOSE OU PRN (14:15)
[2023-04-19 15:31] VITALS: BP 140/76
[2023-04-19] MEDS: VANCOMYCIN 1 GM/NS 250 ML IVPB IV SCH ×2 (18:52)
[2023-04-19 19:19] VITALS: BP 120/64
[2023-04-19 23:44] VITALS: BP 133/71
[2023-04-20] MEDS: meTOprolol 5 MG/5 ML (LOPRESSOR) VIAL IV SCH ×4 (00:35→20:38)
[2023-04-20] MEDS: D5 1/2NS + KCL 20 MEQ/L 1000ML 1,000 ML IV SCH ×3 (01:38→22:15)
[2023-04-20] MEDS: ENOXAPARIN 60 MG/0.6 ML SYRINGE SC SCH ×2 (01:39→15:13)
[2023-04-20 03:47] VITALS: BP 125/64
[2023-04-20 06:37] LABS: POTASSIUM 3.9 MMOL/L (3.6-5.0)
[2023-04-20 06:38] LABS: CALCIUM 8.5 MG/DL (8.5-10.1)
[2023-04-20] MEDS: KCL 20 MEQ TAB (K-DUR) PO SCH ×2 (06:42→08:01)
[2023-04-20 06:43] LABS: CREATININE SERUM 0.52 MG/DL (0.60-1.30)
[2023-04-20 06:45] LABS: MAGNESIUM 2.2 MG/DL (1.6-2.4)
[2023-04-20] MEDS: MAGNESIUM 1 GM/100 ML IVPB 100 ML IV SCH (08:01)
[2023-04-20] MEDS: POTASSIUM CL 10MEQ/50ML IVPB 50 ML IV SCH ×3 (08:03→10:04)
[2023-04-20 08:12] VITALS: BP 152/82
--- NOTE | 2023-04-20 08:28 | Speech Therapy Progress Note ---
Therapy Progress Note Per chart review, the patient remains on BiPap support at this time. Due to the presence of BiPap, the patient is not appropriate/safe for P.O. trials by speech pathology. Please contact speech pathology when/if the patient becomes appropriate for continued bedside P.O. trials. Thank you. ESTEFANÍA VERMA Apr 20, 2023 08:28
[2023-04-20] MEDS: MEROPENEM IV SCH ×2 (08:32→20:39)
[2023-04-20] MEDS: NS IV SCH ×2 (08:32→20:39)
[2023-04-20] MEDS: LevETIRAcetam INJECTION 500 MG in NS (IVPB) 100 ML 100 ML IV SCH ×2 (08:33→22:15)
[2023-04-20 08:41] LABS: ABG OXYGEN SATURATION 99 % (94-100); ABG PCO2 59 MMHG (35-45); ABG PH 7.38 (7.37-7.43); ABG PO2 102 MMHG (79-93); ABG TCO2 36.2 MMOL/L (21.0-31.0)
[2023-04-20 08:42] LABS: ALLENS TEST POSITIVE; INSPIRED O2 50% BIPAP; PATIENT TEMP 36.6; VENTILATOR NO
[2023-04-20 11:42] VITALS: BP 144/81
--- NOTE | 2023-04-20 14:06 | Progress Note - Hospitalist ---
Subjective HPI/CC On Admission Date Seen by Provider: Apr 20, 2023 Patient is an 83-year-old female well-known to me from multiple previous admissions who presented to the emergency department due to altered mental status. She is unable to provide any history so all history is obtained from the records and from her son Jhony. She was discharged from the hospital on April 13 back to her long term. Jhony states that over the weekend she was doing okay and was speaking in 2-3 word sentences to him. He was able to feed her on Sunday and thought she was doing well. Yesterday she was found altered and was sent to the emergency department for evaluation. She was unable to communicate to the ER and was requiring 3 L of oxygen instead of her normal 1. She was admitted observation for further management. This morning she is tracking with her eyes but she still does not speak. Last time I took care of her she would intermittently speak but not much so she is still slightly off from her baseline. Subjective/Events-last exam Patient is much less responsive today. She has BiPAP on. I ordered a repeat ABG and was in the room when RT was attempting to stick. She did not respond through multiple sticks. She did not respond to verbal or physical stimuli either. I called and spoke with her son Jhony who is DPOA and informed him of this. We discussed how she is continuing to decline despite continued IV ant ibiotics, IV fluids, BiPAP. He states he and his sister visited last night and feel that it is appropriate to pursue hospice. We met later in the room and discussed what hospice entails. At first she was hesitant to stopping IV fluids and taking off the BiPAP. We discussed that when someone has a terminal condition those things will just prolong life and our goal would be to treat comfort. He plans to discuss this with his family and call distant family members then. He plans to transition to comfort care/hospice once her family has been able to see her to say goodbyes. Objective Exam Vital Signs Vital Signs Date Time Temp Pulse Resp B/P (MAP) Pulse Ox O2 Delivery O2 Flow Rate FiO2 04/20/23 13:00 91 04/20/23 11:42 37.0 30 144/81 (102) 99 NIV Bilevel 30.00 Capillary Refill : Less Than 3 Seconds General Appearance: Chronically ill, Thin Respiratory: No Crackles; Decreased Breath Sounds, Other (on BiPAP) Cardiovascular: Regular Rate, Rhythm, Systolic Murmur Gastrointestinal: Normal Bowel Sounds, Soft Extremity: Pedal Edema Neurologic/Psychiatric: Other (does not respond) Results/Procedures Lab Laboratory Tests 04/20/23 05:47 Patient resulted labs reviewed. Imaging: Reviewed Imaging Report Assessment/Plan Assessment and Plan Assess & Plan/Chief Complaint Advanced dementia AMS Pressure ulcer Poor prognosis Dysphagia COPD with hypercapnia HTN AFib Aortic stenosis Continue IV abx until family ready to transition to comfort care 1 culture with contamination Speech still recommends NPO, son does not want to pursue artificial nutrition BiPAP until family present and ready for comfort care Hospice/Palliative care conversations as above- continue current measures until they are ready to transition to comfort care I called and updated her PCP as well DVT ppx: ABRAHAM Kelly MD Apr 20, 2023 14:06
[2023-04-20 15:40] VITALS: BP 137/75
[2023-04-20] MEDS: VANCOMYCIN 1 GM/NS 250 ML IVPB IV SCH ×2 (17:00)
[2023-04-20 19:41] VITALS: BP 118/66
[2023-04-20 23:19] VITALS: BP 115/71
[2023-04-21] MEDS: meTOprolol 5 MG/5 ML (LOPRESSOR) VIAL IV SCH ×5 (00:28→23:41)
[2023-04-21 03:50] VITALS: BP 128/74
[2023-04-21] MEDS: ENOXAPARIN 60 MG/0.6 ML SYRINGE SC SCH ×2 (04:59→14:54)
[2023-04-21 05:29] LABS: POTASSIUM 3.7 MMOL/L (3.6-5.0)
[2023-04-21 05:30] LABS: CALCIUM 8.5 MG/DL (8.5-10.1)
[2023-04-21 05:35] LABS: CREATININE SERUM 0.46 MG/DL (0.60-1.30)
[2023-04-21] MEDS: POTASSIUM CL 10MEQ/50ML IVPB 50 ML IV SCH ×3 (06:06→07:55)
[2023-04-21] MEDS: MAGNESIUM 1 GM/100 ML IVPB 100 ML IV SCH (06:07)
--- NOTE | 2023-04-21 06:48 | Progress Note - Hospitalist ---
Subjective HPI/CC On Admission Date Seen by Provider: Apr 21, 2023 Patient is an 83-year-old female well-known to me from multiple previous admissions who presented to the emergency department due to altered mental status. She is unable to provide any history so all history is obtained from the records and from her son Jhony. She was discharged from the hospital on April 13 back to her [facility]. Jhony states that over the weekend she was doing okay and was speaking in 2-3 word sentences to him. He was able to feed her on Sunday and thought she was doing well. Yesterday she was found altered and was sent to the emergency department for evaluation. She was unable to communicate to the ER and was requiring 3 L of oxygen instead of her normal 1. She was admitted observation for further management. This morning she is tracking with her eyes but she still does not speak. Last time I took care of her she would intermittently speak but not much so she is still slightly off from her baseline. Subjective/Events-last exam Pt laying in bed. Does not respond. On BiPAP. No family at bedside. Objective Exam Vital Signs Vital Signs Date Time Temp Pulse Resp B/P (MAP) Pulse Ox O2 Delivery O2 Flow Rate FiO2 04/21/23 03:50 36.4 77 20 128/74 (92) 94 NIV Bilevel 21.00 Capillary Refill : Less Than 3 Seconds General Appearance: Chronically ill, Thin Respiratory: Decreased Breath Sounds, Other (on BiPAP) Cardiovascular: Regular Rate, Rhythm, Systolic Murmur Neurologic/Psychiatric: Disoriented Results/Procedures Lab Laboratory Tests 04/21/23 05:07 Patient resulted labs reviewed. Imaging: Reviewed Imaging Report Assessment/Plan Assessment and Plan Assess & Plan/Chief Complaint Advanced dementia AMS Pressure ulcer Poor prognosis Dysphagia COPD with hypercapnia HTN AFib Aortic stenosis Continue IV abx until family ready to transition to comfort care- awaiting return call from them 1 culture with contamination Speech recommends NPO, son does not want to pursue artificial nutrition BiPAP until family present and ready for comfort care Hospice/Palliative care conversations as per yesterday- continue current measures until they are ready to transition to comfort care, son reported he would let us know when all family contacted DVT ppx: ABRAHAM Kelly MD Apr 21, 2023 06:48
[2023-04-21] MEDS: MEROPENEM IV SCH ×2 (07:46→20:22)
[2023-04-21] MEDS: NS IV SCH ×2 (07:46→20:22)
[2023-04-21] MEDS: D5 1/2NS + KCL 20 MEQ/L 1000ML 1,000 ML IV SCH ×2 (07:49→17:30)
[2023-04-21 08:00] VITALS: BP 150/78
[2023-04-21] MEDS: LevETIRAcetam INJECTION 500 MG in NS (IVPB) 100 ML 100 ML IV SCH ×2 (09:04→21:45)
[2023-04-21 15:38] VITALS: BP 143/79
[2023-04-21 19:38] VITALS: BP 131/73
[2023-04-21 23:57] VITALS: BP 130/80
[2023-04-22] MEDS: ENOXAPARIN 60 MG/0.6 ML SYRINGE SC SCH ×2 (02:36→17:11)
[2023-04-22] MEDS: D5 1/2NS + KCL 20 MEQ/L 1000ML 1,000 ML IV SCH ×2 (02:36→12:49)
[2023-04-22 04:03] VITALS: BP 126/71
[2023-04-22 05:51] LABS: POTASSIUM 3.8 MMOL/L (3.6-5.0)
[2023-04-22 05:52] LABS: CALCIUM 8.4 MG/DL (8.5-10.1)
[2023-04-22 05:56] LABS: CREATININE SERUM 0.44 MG/DL (0.60-1.30)
[2023-04-22] MEDS: KCL 20 MEQ TAB (K-DUR) PO SCH (06:06)
[2023-04-22] MEDS: MAGNESIUM 1 GM/100 ML IVPB 100 ML IV SCH (06:06)
[2023-04-22] MEDS: POTASSIUM CL 10MEQ/50ML IVPB 50 ML IV SCH ×3 (06:08→07:46)
[2023-04-22] MEDS: meTOprolol 5 MG/5 ML (LOPRESSOR) VIAL IV SCH ×3 (06:11→17:11)
[2023-04-22] MEDS: LevETIRAcetam INJECTION 500 MG in NS (IVPB) 100 ML 100 ML IV SCH (07:46)
[2023-04-22 08:00] VITALS: BP 125/74
--- NOTE | 2023-04-22 12:34 | Progress Note - Hospitalist ---
Subjective HPI/CC On Admission Date Seen by Provider: Apr 22, 2023 Patient is an 83-year-old female well-known to me from multiple previous admissions who presented to the emergency department due to altered mental status. She is unable to provide any history so all history is obtained from the records and from her son Jhony. She was discharged from the hospital on April 13 back to her alf. Jhony states that over the weekend she was doing okay and was speaking in 2-3 word sentences to him. He was able to feed her on Sunday and thought she was doing well. Yesterday she was found altered and was sent to the emergency department for evaluation. She was unable to communicate to the ER and was requiring 3 L of oxygen instead of her normal 1. She was admitted observation for further management. This morning she is tracking with her eyes but she still does not speak. Last time I took care of her she would intermittently speak but not much so she is still slightly off from her baseline. Subjective/Events-last exam Pt laying in bed with BiPAP on. No family at bedside. She is unresponsive. Called and spoke with her son who is DPOA. He reports his uncle and cousins are en route to visit her and he has been unable to contact his sister and is still trying to. Does not want to switch to comfort care until at least his uncle and cousins have visited. He reports he will be here later today and let us know if his sister is coming. Objective Exam Vital Signs Vital Signs Date Time Temp Pulse Resp B/P (MAP) Pulse Ox O2 Delivery O2 Flow Rate FiO2 04/22/23 12:22 85 04/22/23 09:36 29 96 21.00 04/22/23 08:00 36.4 125/74 (91) NIV Bilevel Capillary Refill : Less Than 3 Seconds General Appearance: Chronically ill, Other (on BiPAP) Respiratory: No Crackles; Decreased Breath Sounds, Other (on BiPAP) Cardiovascular: Regular Rate, Rhythm, Systolic Murmur Gastrointestinal: Normal Bowel Sounds, Soft Extremity: Swelling (in hands and feet more noticeable today) Neurologic/Psychiatric: Other (does not respond) Results/Procedures Lab Laboratory Tests 04/22/23 05:19 Patient resulted labs reviewed. Imaging: Reviewed Imaging Report Assessment/Plan Assessment and Plan Assess & Plan/Chief Complaint Advanced dementia AMS Pressure ulcer Poor prognosis Dysphagia COPD with hypercapnia HTN AFib Aortic stenosis Continue IV abx and BiPAP until family ready to transition to comfort care- some planning to visit today and so is son- he reports he will still up when he's ready to take BiPAP off either today or tomorrow Speech recommends NPO, son does not want to pursue artificial nutrition Hospice/Palliative care conversations as above DVT ppx: ABRAHAM Kelly MD Apr 22, 2023 12:34
[2023-04-22 15:47] VITALS: BP 122/66
[2023-04-22] MEDS ORDERED: SALIVA SUBSTITUTE 60 ML SPRAY(MOUTHKOTE) MM PRN (20:00)
[2023-04-22] MEDS ORDERED: ARTIFICAL TEARS Ophth solution 0.4 ML UNIT DOSE OU PRN (20:00)
[2023-04-22] MEDS ORDERED: RT-ALBUTEROL/IPRATROPIUM 3 ML (DUONEB) VIAL INH PRN (20:00)
[2023-04-22] MEDS ORDERED: ACETAMINOPHEN 650 MG SUPPOSITORY PR PRN (20:00)
[2023-04-22] MEDS ORDERED: BISACODYL 10 MG SUPPOSITORY PR PRN (20:00)
[2023-04-22] MEDS ORDERED: PROMETHAZINE INJ 25 MG/ML (PHENERGAN) AMP IVP PRN (20:00)
[2023-04-22] MEDS ORDERED: ONDANSETRON 4 MG/2 ML (SDV) Z0FRAN IVP PRN (20:00)
[2023-04-22] MEDS: morphine INJ 4 MG/ML 1 ML (VIAL/SYRINGE) IV PRN ×2 (20:58→23:00)
[2023-04-22] MEDS: LORazepam 1 MG (ATIVAN) TAB SL PRN (22:24)
[2023-04-23] MEDS: LORazepam 1 MG (ATIVAN) TAB SL PRN ×4 (01:07→08:39)
[2023-04-23] MEDS: morphine INJ 4 MG/ML 1 ML (VIAL/SYRINGE) IV PRN ×9 (01:07→23:59)
[2023-04-23] MEDS: GLYCOPYRROLATE 0.2 MG/ML (ROBINUL) 2 ML VIAL IV PRN ×3 (02:00→22:15)
--- NOTE | 2023-04-23 12:42 | Progress Note - Hospitalist ---
Subjective HPI/CC On Admission Patient is an 83-year-old female well-known to me from multiple previous admissions who presented to the emergency department due to altered mental status. She is unable to provide any history so all history is obtained from the records and from her son Jhony. She was discharged from the hospital on April 13 back to her [facility]. Jhony states that over the weekend she was doing okay and was speaking in 2-3 word sentences to him. He was able to feed her on Sunday and thought she was doing well. Yesterday she was found altered and was sent to the emergency department for evaluation. She was unable to communicate to the ER and was requiring 3 L of oxygen instead of her normal 1. She was admitted observation for further management. This morning she is tracking with her eyes but she still does not speak. Last time I took care of her she would intermittently speak but not much so she is still slightly off from her baseline. Subjective/Events-last exam Pt laying in bed. Eyes open but unresponsive. Appears comfortable. No family at bedside. Objective Exam Vital Signs Vital Signs Date Time Temp Pulse Resp B/P (MAP) Pulse Ox O2 Delivery O2 Flow Rate FiO2 04/23/23 09:25 Room Air 04/22/23 21:43 80 13 96 21.00 04/22/23 15:47 36.9 122/66 (84) Capillary Refill : Less Than 3 Seconds General Appearance: No Apparent Distress, Chronically ill Respiratory: Lungs Clear Cardiovascular: Regular Rate, Rhythm, Systolic Murmur Results/Procedures Lab Patient resulted labs reviewed. Imaging: Reviewed Imaging Report Assessment/Plan Assessment and Plan Assess & Plan/Chief Complaint Advanced dementia AMS Pressure ulcer Poor prognosis Dysphagia COPD with hypercapnia HTN AFib Aortic stenosis Comfort care measures only Comfort care order set placed Appears comfortable ABRAHAM CIFUENTES MD Apr 23, 2023 12:42
[2023-04-24] MEDS: morphine INJ 4 MG/ML 1 ML (VIAL/SYRINGE) IV PRN ×3 (02:23→09:07)
[2023-04-24] MEDS: GLYCOPYRROLATE 0.2 MG/ML (ROBINUL) 2 ML VIAL IV PRN ×2 (02:23→06:25)
[2023-04-24] MEDS ORDERED: morphine INJ 4 MG/ML 1 ML (VIAL/SYRINGE) IV PRN (10:45)
--- NOTE | 2023-04-24 20:50 | Discharge Summary ---
Discharge Summary Hospital Course Problems/Dx: (1) Acute on chronic respiratory failure with hypoxia and hypercapnia Status: Acute (2) Recurrent pneumonia Status: Acute (3) Advanced dementia Status: Chronic (4) Acute on chronic heart failure with preserved ejection fraction (HFpEF) Status: Acute (5) Aortic stenosis Status: Chronic Qualifiers: Qualified Codes: I35.0 - Nonrheumatic aortic (valve) stenosis (6) History of cerebrovascular accident with residual deficit Status: Chronic (7) Sacral decubitus ulcer, stage III Status: Acute (8) Debility Status: Acute (9) Poor prognosis Status: Acute (10) Comfort measures only status Status: Acute Hospital Course Date of Admission: Apr 18, 2023 at 14:20 Admission Diagnosis : Acute on chronic respiratory failure with hypoxia and hypercapnia Family Physician/Provider: Jason Boudreaux MD Date of Discharge: 04/24/23 Discharge Diagnosis: Acute on chronic respiratory failure with hypoxia and hypercapnia, advanced dementia, comfort measures only status Hospital Course: Citlaly Salazar was an 83 year old female with advanced dementia, heart failure, recurrent pneumonia, decubitus ulcers, history of stroke, who was admitted with acute on chronic respiratory failure with hypoxia and hypercapnia. Her son chose to transition to comfort measures only status due to her multiple medical comorbidities and poor prognosis with poor quality of life. She peacefully on 04/24/2023 at 1128. Labs and Pending Lab Test: Microbiology 04/16/23 Urine Culture - Final, Complete NO GROWTH 04/16/23 Blood Culture - Final, Complete Staphylococcus hominis Staphylococcus epidermidis See Comments No Susceptibility Performed Home Meds Active Vashe Wound Therapy Solution (Sodium Chlor/Hypochlorous Acid) 0.033 % Irrig.soln 0 Ml IR DAILY PRN 30 Days Cleanse daily with vashe. Barrier cream to periwound. Vashe dampened WTD dressings daily secured with Allevyn BFD. Change daily and prn for soiling/strikethrough. Levetiracetam 500 Mg Tablet 500 Mg PO BID 30 Days Gabapentin 100 Mg Capsule 100 Mg PO BID 30 Days Reported Furosemide 40 Mg Tablet 60 Mg PO DAILY TAKES 1 & (40MG) TABS Menthol 4 % Cream..g. 1 Applic TP DAILY PRN APPLY TO BILATERAL KNEES- THERAPY MAY USE FOR PAIN DURING THERAPY SESSION Menthol 4 % Cream..g. 1 Applic TP TID APPLY TO BILATERAL KNEES Risperidone 0.5 Mg Tablet 0.5 Mg PO HS Ferrous Sulfate 325 Mg (65 Mg Iron) Tablet 325 Mg PO BID Preservision Areds Softgel (Vit A/C/E/Zinc/Co) 4,296-226 Capsule 1 Each PO DAILY Ventolin Hfa (Albuterol Sulfate) 90 Mcg Hfa.aer.ad 2 Puff INH Q6H PRN Metoprolol Succinate 50 Mg Tab.er.24h 50 Mg PO DAILY Aspirin 81 Mg Tab.chew 81 Mg PO DAILY Lisinopril 20 Mg Tablet 20 Mg PO DAILY HOLD FOR SBP LESS THAN 100 AND DBP LESS THAN 60 Docusate Sodium 100 Mg Capsule 100 Mg PO BID Milk of Magnesia (Magnesium Hydroxide) 2,400 Mg/10 Ml Oral.susp 30 Ml PO DAILY PRN Breo Ellipta 200-25 Mcg INH (Fluticasone/Vilanterol) 200 Mcg-25 Mcg/Dose Blst.w.dev 1 Puff INH DAILY RINSE AND SPIT MOUTH WITH WATER AFTER EACH USE Vitamin C (Ascorbate Calcium) 500 Mg Tablet 500 Mg PO BID Xanax (Alprazolam) 0.25 Mg Tablet 0.25 Mg PO HS Tramadol HCl 50 Mg Tablet 50 Mg PO Q12H PRN Hydrocodone-Acetamin 5-325 mg (Hydrocodone/Acetaminophen) 5 Mg-325 Mg Tablet 1 Tab PO Q6H PRN Vitamin D3 (Cholecalciferol (Vitamin D3)) 25 Mcg (1000 Unit) Capsule 25 Mcg PO DAILY Potassium Chloride 20 Meq Tab.er.prt 20 Meq PO DAILY Eliquis (Apixaban) 5 Mg Tablet 5 Mg PO Q12H Citalopram HBr (Citalopram Hydrobromide) 10 Mg Tablet 10 Mg PO HS Xalatan (Latanoprost) 2.5 Ml Drops 1 Drop OU HS Amitriptyline HCl 25 Mg Tablet 25 Mg PO HS Ropinirole HCl 1 Mg Tablet 1 Mg PO HS Assessment/Pt Instructions Patient Discharge Physical Examination Vital Signs Vital Signs Date Time Temp Pulse Resp B/P (MAP) Pulse Ox O2 Delivery O2 Flow Rate FiO2 04/24/23 08:00 Room Air 04/22/23 21:43 80 13 96 21.00 04/22/23 15:47 36.9 122/66 (84) Allergies: Coded Allergies: doxycycline (Unverified Allergy, Mild, 11/26/17) Discharge Summary Date of Admission Apr 18, 2023 at 14:20 Date of Discharge Apr 24, 2023 at 11:28 Discharge Date: Apr 24, 2023 Discharge Time: : Admission Diagnosis AMS Comfort Measures/ End of Life Care: Comfort Measures Advance Care discuss with: family member (s) Plan: initiate discussion, clarifying prognosis, identified end-of-life goals, developed treatment plan Cardiopulmonary Arrest: Cardiorespiratory Arrest Date of : Apr 24, 2023 Time of : 11:28 Discharge Diagnosis (1) Acute on chronic respiratory failure with hypoxia and hypercapnia Status: Acute (2) Recurrent pneumonia Status: Acute (3) Acute on chronic diastolic (congestive) heart failure (4) Aortic stenosis Status: Chronic Qualifiers: Qualified Codes: I35.0 - Nonrheumatic aortic (valve) stenosis (5) History of cerebrovascular accident with residual deficit Status: Chronic (6) Advanced dementia Status: Chronic (7) Sacral decubitus ulcer, stage III Status: Acute (8) Poor prognosis Status: Acute (9) Comfort measures only status Status: Acute MARCO A CÁRDENAS MD Apr 24, 2023 20:42
== END 2023-04-24 19:51 | disposition expired | DRG 193 ==
LOC: EDUNIT# 13:25 → ER 13:26 → 4TH 16:25 → OBSVTOIN 04-18 14:20
PROVIDERS: ADMIT Family Medicine; ATTEND Internal Medicine
PROC: 5A09457 Assistance with Respiratory Ventilation, 24-96 Consecutive Hours, Continuous Positive Airway Pressure (ICD-10-PCS; principal; 2023-04-19)
DX: J18.9 Pneumonia, unspecified organism (principal); I50.33 Acute on chronic diastolic (congestive) heart failure; J96.21 Acute and chronic respiratory failure with hypoxia; L89.154 Pressure ulcer of sacral region, stage 4; J96.22 Acute and chronic respiratory failure with hypercapnia; J44.0 Chronic obstructive pulmonary disease with (acute) lower respiratory infection; E87.0 Hyperosmolality and hypernatremia; E44.0 Moderate protein-calorie malnutrition; R64 Cachexia; Z51.5 Encounter for palliative care; Z66 Do not resuscitate; F03.C0 Unspecified dementia, severe, without behavioral disturbance, psychotic disturbance, mood disturbance, and anxiety; R40.4 Transient alteration of awareness; I35.0 Nonrheumatic aortic (valve) stenosis; I11.0 Hypertensive heart disease with heart failure; R13.10 Dysphagia, unspecified; I48.91 Unspecified atrial fibrillation; E78.00 Pure hypercholesterolemia, unspecified; G25.81 Restless legs syndrome; K21.9 Gastro-esophageal reflux disease without esophagitis; G89.29 Other chronic pain; F41.9 Anxiety disorder, unspecified; F32.A Depression, unspecified; E86.0 Dehydration; Z68.25 Body mass index [BMI] 25.0-25.9, adult
CPT/HCPCS: 36415; 36600; 70450; 71045; 80048; 80053; 80202; 81000; 82805; 83605; 83735; 85007; 85025; 85027; 85610; 85730; 87040; 87077; 87088; 94640; 94660; G0378